=== PATIENT | female | born 1950 | race Caucasian/White ===

== ENCOUNTER → 2018-05-10 07:55 | Outpatient (CLI) | payer MEDICARE, OTHER, SELFPAY ==
[2018-05-10 11:08] LABS: AST(SGOT) 18 U/L (15-37); Alanine Aminotransfer ALT/SGPT 25 U/L (13-56); Albumin, Serum 3.4 g/dL (3.2-5.0); Alkaline Phosphatase 112 U/L (45-117); Bilirubin, Direct 0.06 mg/dL (0.00-0.30); Cholesterol 148 mg/dL (200); Globulin 3.8 g/dL (2.2-4.2); High Density Lipoprotein 43 mg/dL; Protein, Total 7.2 g/dL (6.4-8.2); Triglycerides 180 mg/dL; Very Low Density Lipoprotein 36 mg/dL (5-40)
== END ==
PROVIDERS: Family Provider Family Medicine; PCP Family Medicine; Visit Provider Family Medicine
DX: E78.5 Hyperlipidemia, unspecified (principal)
CPT/HCPCS: 36415; 80061; 80076

== ENCOUNTER → 2018-10-27 09:08 | Outpatient (CLI) | payer MEDICARE, OTHER, SELFPAY ==
[2018-10-27 11:21] LABS: ALB/GLOB Ratio 1.1 RATIO (0.9-2.4); AST(SGOT) 14 U/L (15-37); Alanine Aminotransfer ALT/SGPT 23 U/L (13-56); Albumin, Serum 3.6 g/dL (3.2-5.0); Alkaline Phosphatase 125 U/L (45-117); Anion Gap 9 (5-15); BUN 9 mg/dL (7-18); Calcium,Total 8.8 mg/dL (8.5-10.1); Chloride 101 mmol/L (98-107); Cholesterol 152 mg/dL (200); Creatinine, Serum 0.64 mg/dL (0.55-1.02); EST Glomerular Filtration Rate 98 mL/min (>60); Est Glom Filt Rate - Afr Amer 119 mL/min (>60); Globulin 3.3 g/dL (2.2-4.2); Glucose 116 mg/dL (74-106); High Density Lipoprotein 41 mg/dL; Potassium 4.1 mmol/L (3.5-5.1); Protein, Total 6.9 g/dL (6.4-8.2); Sodium Level 135 mmol/L (136-145); Triglycerides 193 mg/dL; Very Low Density Lipoprotein 39 mg/dL (5-40)
== END ==
PROVIDERS: Family Provider Family Medicine; PCP Family Medicine; Visit Provider Nurse Practitioner Family
DX: Z00.00 Encounter for general adult medical examination without abnormal findings (principal)
CPT/HCPCS: 36415; 80053; 80061

== ENCOUNTER → 2018-11-01 16:59 | Outpatient (CLI) | payer MEDICARE, OTHER, SELFPAY | PROVIDERS: Family Provider Family Medicine; PCP Family Medicine; Referring Provider Nurse Practitioner Adult Health; Visit Provider Nurse Practitioner Adult Health | DX: N39.0 Urinary tract infection, site not specified (principal) | CPT/HCPCS: 87086; 87088; 87186 ==

== ENCOUNTER → 2018-11-03 13:56 | Outpatient (CLI) | payer MEDICARE, OTHER, SELFPAY ==
--- NOTE | 2018-11-03 14:01 | RAD_ITS ---
STUDY: X-RAY - LEFT KNEE REASON FOR EXAM: Female, 68 years old. Pain TECHNIQUE: 3 view(s) of the knee. COMPARISON: None. FINDINGS: There is demineralization of the visualized distal femur. There is demineralization of the tibia and fibula. Normal proximal tibiofibular articulation. Normal medial femorotibial compartment. Normal lateral femorotibial compartment. Normal patellofemoral articulation. The soft tissue structures are unremarkable. RAD/Knee 3 Views IMPRESSION: Demineralization of the osseous structures. Electronically Signed: Israel Lua MD at 23:39 EST , Service support ,
--- NOTE | 2018-11-03 14:01 | RAD_ITS ---
STUDY: X-RAY - LUMBAR SPINE REASON FOR EXAM: Female, 68 years old. Chronic low back pain radiating into left leg TECHNIQUE: 5 view(s) of the lumbar spine were obtained. COMPARISON: Prior study of 07/18/2015 FINDINGS: Normal lumbar lordosis. There is no substantial scoliosis. There is a grade 1 anterolisthesis of L4 relative to L5. There is diffuse demineralization with multi-level endplate spondylosis. There is mild narrowing of the L4-5 and L5-S1 disc spaces. There is no demonstrated fracture. There are calcified plaques of the abdominal aorta. RAD/L/S Spine Min 4 Views IMPRESSION: Degenerative changes as detailed above. Grade 1 anterolisthesis of L4 relative to L5, also reported on the previous study. Electronically Signed: Israel Lua MD at 23:35 EST , Service support ,
--- NOTE | 2018-11-03 14:05 | RAD_ITS ---
STUDY: X-RAY - RIGHT KNEE REASON FOR EXAM: Female, 68 years old. Pain TECHNIQUE: 3 view(s) of the knee. COMPARISON: None. FINDINGS: There is demineralization of the visualized distal femur. There is demineralization of the tibia and fibula. Normal proximal tibiofibular articulation. Normal medial femorotibial compartment. Normal lateral femorotibial compartment. Normal patellofemoral articulation. The soft tissue structures are unremarkable. RAD/Knee 3 Views IMPRESSION: Demineralization of the osseous structures. Electronically Signed: Israel Lua MD at 23:38 EST , Service support ,
--- OUTSIDE RECORDS SUMMARY | 2019-01-08 11:07 | XMS RPT_ITS ---
:1950 Author Organization OHIP Care Team Providers Name Role Phone WenJose Attending Unavailable Misael Molina Primary Care Unavailable Parul Hernandez Attending Unavailable Parul Hernandez Referring Unavailable Tracy, Misael Primary Care Unavailable Tracy, Misael Attending Unavailable Molina, Misael Referring Unavailable Molina, Misael Primary Care Unavailable Tracy, Misael Attending Unavailable Molina, Misael Primary Care Unavailable Molina, Misael Attending Unavailable Molina, Misael Referring Unavailable Molina, Misael Primary Care Unavailable PROBLEMS PROBLEMS DATE TYPE CONDITION / CODE ATTENDING STATUS SOURCE 11/11/2018 Unknown M85.89 - Other Misael Molina Active [facility] specified Community disorders of bone Hospital density and Repository structure, multiple sites / M85.89(ICD-10) 11/03/2018 Unknown M25.561 - Pain in Misael Molina Active [place] right knee / Community M25.561(ICD-10) Hospital Repository 11/03/2018 Unknown M54.16 - Misael Molina Active [place] Radiculopathy, Community lumbar region / Hospital M54.16(ICD-10) Repository 11/03/2018 Unknown M25.562 - Pain in Misael Molina Active [place] left knee / Community M25.562(ICD-10) Hospital Repository 11/01/2018 Unknown N39.0 - Urinary Mary, Parul Active [place] tract infection, M Community site not Hospital specified / Repository N39.0(ICD-10) 05/10/2018 Unknown E78.5 - Misael Molina Active [place] Hyperlipidemia, Community unspecified / Hospital E78.5(ICD-10) Repository PROCEDURES PROCEDURES No Procedure Records FoundRESULTS RESULTS DEXA BONE DENSITY Observed: 11/11/2018 Status: F Source: [place] STUDY 1:59 PM [facility] REPOSITORY [facility] Imaging Services [address] [place] [address] Dexa Bone Density Study MR#: [id number] Acct: [id number] Name: CARMEN MILLER Rep #: [id number] : 1950 F 68 From: Paul Moctezuma MD PCP: Misael Molina MD Status: REG CLI Study: Dexa Bone Density Study Date of Exam: 11/11/18 Exam# [id number] Ordering Dr: Misael Molina MD STUDY: DUAL ENERGY X-RAY ABSORPTIOMETRY / DXA REASON FOR EXAM: Female, 68 years old. The patient is postmenopausal. Loss of height. TECHNIQUE: Bone Mineral Density (BMD) measurements of lumbar spine and bilateral hips were obtained. COMPARISON: Comparison is made with prior study dated January 15, 2006. FINDINGS: Lumbar Spine (L1-L4): g/cm2 (1.024) / T-score (-1.3) / Z-score (0.3) Findings are suggestive of osteopenia with a low fracture risk. Left Femur Total: g/cm2 (0.601) / T-score (-3.2) / Z- score (-1.9) Left Femoral Neck: g/cm2 (0.645) / T-score (-2.8) / Z- score (-1.3) Right Femur Total: g/cm2 (0.653) / T-score (-2.8) / Z- score (-1.5) Right Femoral Neck: g/cm2 (0.679) / T-score (-2.6) / Z-score (-1.1) The T-Scores on the most recent prior examination were: Lumbar Spine (L1-L4): There has been improvement of bone density since the previous examination. Left Femur Total: which represents a worsening of 9.4%. BD/Dexa Bone Density Study IMPRESSION: The patient is considered osteoporotic as outlined below according to World Brandon Organization (WHO) criteria with a high fracture risk. There has been worsening of bone density since the previous examination. Reference Information: The T-score is the number of standard deviations above or below the standard which is normal for young adults at their peak bone mineral density. The World Health Organization (WHO) interprets the T-scores as follows: Above -1 Normal bone density Between -1 and -2.5 Osteopenia Equal to / or below -2.5 Osteoporosis As a practical clinical guideline, osteopenia may be graded as follows: Mild -1 through -1.5 Moderate -1.6 through -2.0 Severe -2.1 through -2.4 The Z-score is the number of standard deviations above or below age-matched controls. A Z-score of less than -1.5 would be considered abnormal. References: 1. NIH Osteoporosis and Related Bone Diseases http://www.osteo.org 2. International Society for Clinical Densitometry http://www.iscd.org 3. National Osteoporosis Foundation http://www.nof.org Electronically Signed: Paul Moctezuma MD at 15:18 EST , Service support , CC: Misael Molina MD Commercial Pilot: Signed KNEE 3 VIEWS Observed: 11/03/2018 Status: F Source: [place] 2:05 PM [facility] [place] [facility] Imaging Services [address] [place], [place] [address] [place] [address] Knee 3 Views MR#: [id number] Acct: [id number] Name: CARMEN MILLER Rep #: [id number] : 1950 F 68 From: Israel Lua MD PCP: Misael Molina MD Status: REG CLI Study: Knee 3 Views Date of Exam: 11/03/18 Exam# [id number] Ordering Dr: Misael Molina MD STUDY: X-RAY - RIGHT KNEE REASON FOR EXAM: Female, 68 years old. Pain TECHNIQUE: 3 view(s) of the knee. COMPARISON: None. FINDINGS: There is demineralization of the visualized distal femur. There is demineralization of the tibia and fibula. Normal proximal tibiofibular articulation. Normal medial femorotibial compartment. Normal lateral femorotibial compartment. Normal patellofemoral articulation. The soft tissue structures are unremarkable. RAD/Knee 3 Views IMPRESSION: Demineralization of the osseous structures. Electronically Signed: Israel Lua MD at 23:38 EST , Service support , CC: Misael Molina MD Commercial Pilot: Signed L/S SPINE MIN 4 Observed: 11/03/2018 Status: F Source: [place] VIEWS 2:02 PM [facility] [place] [facility] Imaging Services [address] [place] [address] L/S Spine Min 4 Views MR#: [id number] Acct: [id number] Name: CARMEN MILLER Rep #: [id number] : 1950 F 68 From: Israel Lua MD PCP: Misael Molina MD Status: REG CLI Study: L/S Spine Min 4 Views Date of Exam: 11/03/18 Exam# [id number] Ordering Dr: Misael Molina MD STUDY: X-RAY - LUMBAR SPINE REASON FOR EXAM: Female, 68 years old. Chronic low back pain radiating into left leg TECHNIQUE: 5 view(s) of the lumbar spine were obtained. COMPARISON: Prior study of 07/18/2015 FINDINGS: Normal lumbar lordosis. There is no substantial scoliosis. There is a grade 1 anterolisthesis of L4 relative to L5. There is diffuse demineralization with multi-level endplate spondylosis. There is mild narrowing of the L4-5 and L5-S1 disc spaces. There is no demonstrated fracture. There are calcified plaques of the abdominal aorta. RAD/L/S Spine Min 4 Views IMPRESSION: Degenerative changes as detailed above. Grade 1 anterolisthesis of L4 relative to L5, also reported on the previous study. Electronically Signed: Israel Lua MD at 23:35 EST , Service support , CC: Misael Molina MD Commercial Pilot: Signed KNEE 3 VIEWS Observed: 11/03/2018 Status: F Source: [place] 2:02 PM [facility] [place] [facility] Imaging Services [address] [place] [address] Knee 3 Views MR#: [id number] Acct: [id number] Name: CARMEN MILLER Jn Rep #: [id number] : 1950 F 68 From: Israel Lua MD PCP: Misael Molina MD Status: REG CLI Study: Knee 3 Views Date of Exam: 11/03/18 Exam# [id number] Ordering Dr: Misael Molina MD STUDY: X-RAY - LEFT KNEE REASON FOR EXAM: Female, 68 years old. Pain TECHNIQUE: 3 view(s) of the knee. COMPARISON: None. FINDINGS: There is demineralization of the visualized distal femur. There is demineralization of the tibia and fibula. Normal proximal tibiofibular articulation. Normal medial femorotibial compartment. Normal lateral femorotibial compartment. Normal patellofemoral articulation. The soft tissue structures are unremarkable. RAD/Knee 3 Views IMPRESSION: Demineralization of the osseous structures. Electronically Signed: Israel Lua MD at 23:39 EST , Service support , CC: Misael Molina MD Commercial Pilot: Signed Observed: 11/01/2018 Status: F Source: [place] CULTURE, URINE 3:00 PM [facility] [place] [facility] Urine Culture ORGANISM 1: Presumptive E. coli [place] Count >100,000 Presumptive E. coli: REACTION Ampicillin $ 8 S Ampicillin/Sulbactam $ <=2 S Cefazolin $ <=4 S Cefepime $ <=0.12 S Ceftazidime *NF <=1 S Ceftriaxone $ <=0.25 S Ciprofloxacin $ <=0.25 S Ertapenim $$$ <=0.12 S ESBL Negative - Gentamicin $ <=1 S Imipenem *NF <=0.25 S Levofloxacin $ <=0.12 S Nitrofurantoin $ <=16 S Piperacillin/Tazobactam $$ <=4 S Tobramycin $ <=1 S Trimethoprim/Sulfametho $ <=20 S (NF) indicates non-formulary drug at [facility]. Approval by Infectious Disease Specialist required before non-formulary drugs may be ordered and/or dispensed. Performed By: #### M100.0650 #### [facility] [address] [place], [address] COMPREHENSIVE METABOLIC Collected: 10/27/2018 Status: F Source: [place] PROFIL 9:11 AM [facility] [place] [facility] TYPE CODE TESTS RESULT OUT OF RANGE REFERENCE UNITS LAB L501.0100 74-106 mg/dL High GLU 116 Result Comment: Fasting Glucose result from 100 to 125 mg/dL suggests IMPAIRED HOMEOSTASIS per A.D.A. criteria. Please note revised GLUCOSE reference range effective 2017. LAB L501.1000 7-18 mg/dL Normal BUN 9 LAB L501.1100 0.55-1.02 mg/dL Normal CREAT,SERUM 0.64 Result Comment: The validity of the calculated GFR AND GFRAA in patients over 70 years has not been determined. Clinical correlation is essential. LAB L501.1110 >60 mL/min Normal EST GFR 98 Result Comment: Non- GFR Calc LAB L501.1115 >60 mL/min Normal EST GFR - AA 119 Result Comment: GFR Calc LAB L501.1300 10-20 RATIO Normal BUN/CRE 14.0 LAB L501.1500 6.4-8.2 g/dL T Normal PROT 6.9 LAB L501.1800 3.2-5.0 g/dL Normal ALB 3.6 LAB L501.1950 2.2-4.2 g/dL Normal GLOB 3.3 LAB L501.2000 0.9-2.4 RATIO Normal A/G 1.1 LAB L501.2200 8.5-10.1 mg/dL CA Normal 8.8 LAB L501.4100 15-37 U/L Low AST 14 LAB L501.4305 45-117 U/L High ALK P 125 LAB L501.4405 13-56 U/L Normal ALT 23 LAB L501.4600 0.20-1.00 mg/dL T Normal BILI 0.40 LAB L501.5300 136-145 mmol/L Low NA 135 LAB L501.5600 3.5-5.1 mmol/L K Normal 4.1 LAB L501.5900 98-107 mmol/L CL Normal 101 LAB L501.6100 21.0-32.0 mmol/L Normal CO2 25.0 LAB L501.6200 5-15 Normal GAP 9 Performed By: #### L500.4050, L500.4100 #### [facility] [address] [place], [place], [id number] LIPID PROFILE Collected: 10/27/2018 Status: F Source: [place] 9:11 AM [facility] [place] [facility] TYPE CODE TESTS RESULT OUT OF RANGE REFERENCE UNITS LAB L501.4900 200 mg/dL Normal CHOL 152 Result Comment: <200 mg/dL Desirable 200-240 mg/dL Borderline >240 mg/dL High Risk LAB L501.5000 mg/dL Normal TRIG 193 Result Comment: The drugs N-Acetylcysteine and Metamizole may falsely depress this assay. Serum Triglycerides Reference Interval Normal <150 mg/dL Borderline high 150 - 199 mg/dL High 200 - 499 mg/dL Very High > or = 500 mg/dL LAB L501.6400 mg/dL Normal HDL 41 Result Comment: The drugs N-Acetylcysteine and Metamizole may falsely depress this assay. Reference Range HDL <40 mg/dL Low HDL Cholesterol HDL >or= 60 mg/dL High HDL Cholesterol LAB L501.6500 0-130 mg/dL Normal LDL 72 LAB L501.6600 5-40 mg/dL Normal VLDL 39 Performed By: #### L500.4050, L500.4100 #### [facility] [address] [place], [address] LIVER PROFILE Collected: 05/10/2018 Status: F Source: [place] 8:07 AM [facility] [place] [facility] TYPE CODE TESTS RESULT OUT OF RANGE REFERENCE UNITS LAB L501.1500 6.4-8.2 g/dL Normal T PROT 7.2 LAB L501.1800 3.2-5.0 g/dL Normal ALB 3.4 LAB L501.1950 2.2-4.2 g/dL Normal GLOB 3.8 LAB L501.4100 15-37 U/L Normal AST 18 LAB L501.4305 45-117 U/L Normal ALK P 112 LAB L501.4405 13-56 U/L Normal ALT 25 LAB L501.4600 0.20-1.00 mg/dL Normal T BILI 0.30 LAB L501.4700 0.00-0.30 mg/dL Normal D BILI 0.06 Performed By: #### L500.3400, L500.4100 #### [facility] [address] [place], [address] LIPID PROFILE Collected: 05/10/2018 Status: F Source: [place] 8:07 AM [facility] [place] [facility] TYPE CODE TESTS RESULT OUT OF RANGE REFERENCE UNITS LAB L501.4900 200 mg/dL Normal CHOL 148 Result Comment: <200 mg/dL Desirable 200-240 mg/dL Borderline >240 mg/dL High Risk LAB L501.5000 mg/dL Normal TRIG 180 Result Comment: The drugs N-Acetylcysteine and Metamizole may falsely depress this assay. Serum Triglycerides Reference Interval Normal <150 mg/dL Borderline high 150 - 199 mg/dL High 200 - 499 mg/dL Very High > or = 500 mg/dL LAB L501.6400 mg/dL Normal HDL 43 Result Comment: The drugs N-Acetylcysteine and Metamizole may falsely depress this assay. Reference Range HDL <40 mg/dL Low HDL Cholesterol HDL >or= 60 mg/dL High HDL Cholesterol LAB L501.6500 0-130 mg/dL Normal LDL 69 LAB L501.6600 5-40 mg/dL Normal VLDL 36 Performed By: #### L500.3400, L500.4100 #### [facility] [address] [place], [address] ALLERGIES ALLERGIES No Allergies Records FoundENCOUNTERS ENCOUNTERS ADMIT/DISCHARGE ACCOUNT ADMITTING ENCOUNTER LOCATION SOURCE NUMBER CLASS 11/11/2018 [id number] [facility] 9 [facility] ing:OPBD Repository 11/03/2018 [id number] [facility] 7 [facility] ing:MTRAD Repository 11/01/2018 [id number] [facility] 0 [facility] ing:LABSPEC Repository 10/27/2018 [id number] [facility] 8 [facility] ing:MFPLAB Repository 05/10/2018 [id number] [facility] 4 [facility] ing:MTLAB Repository PAYERS PAYERS ENCOUNTER GUARANTOR PAYER SUBSCRIBER SOURCE 11/11/2018 CHESTINA J Primary CHESTINA J Mignon [id number] [place] [facility] [place] [facility] [id number] Hospital [address]Qbz: [phone]) Number: Repository [phone] HP) [id number] Date:2018-11-05 11/11/2018 Secondary CHESTINA J Boles Insurance:MEDICAL CHOLLEYDOB: [facility] [id number] Hospital Number: Repository [id number] Date:[id number] [address]SF: 11/11/2018 Tertiary NOT GIVENUNK Boles Insurance:SELF PAY [facility] Number: Effective Repository Date:2018-11-05 11/03/2018 CHESTINA J Primary CHESTINA J Mignon [id number] [place] Insurance:MEDICARE CHOLLEYDOB: [place] PART A [facility] [id number] [id number]: [phone]) Number: Repository [phone] [id number] Date:2018-11-03 11/03/2018 Secondary CHESTINA J Mignon Insurance:MEDICAL CHOLLEYDOB: [facility] [id number] Hospital Number: Repository [id number] Date:[id number] [address]ZY: 11/03/2018 Tertiary NOT GIVENUNK Boles Insurance:SELF [facility]Y [facility] Hospital Number: Effective Repository Date:2018-11-03 11/01/2018 KODY Huber Primary CHESTINA J Boles [id number] [place] Insurance:MEDICARE CHOLLEYDOB: [place] PART A [facility] [id number] Hospital [address]Rir: [phone]) Number: Repository [phone] ( [id number] Date:2018-11-01 11/01/2018 Secondary CHESTINA J Boles Insurance:MEDICAL CHOLLEYDOB: [facility] [id number] Hospital Number: Repository [id number] Date:[id number] [address]SP: 11/01/2018 Tertiary NOT GIVENUNK Boles Insurance:SELF PAY [facility] Number: Effective Repository Date:2018-11-01 10/27/2018 Kody Huber Primary CHESTINA J Boles [id number] [place] Insurance:MEDICARE CHOLLEYDOB: [place], [place] PART A [facility] [id number] Hospital [address]Ksi: (330) Number: Repository [phone] () [id number] Date:2018-10-27 10/27/2018 Secondary CHESTINA J Boles Insurance:MEDICAL CHOLLEYDOB: [facility] [id number] Hospital Number: Repository [id number] Date:[id number] [address] [address]SF: 10/27/2018 Tertiary NOT GIVENUNK Boles Insurance:SELF PAY [facility] Number: Effective Repository Date:2018-10-27 05/10/2018 Kody Huber Primary CHESTINA J Boles [id number] [place] Insurance:MEDICARE CHOLLEYDOB: [place] PART A [facility] [id number] Hospital [address]Cwz: (330) Number: Repository [phone] () [id number] Date:2018-05-10 05/10/2018 Secondary CHESTINA J Boles Insurance:MEDICAL CHOLLEYDOB: [facility] [id number] Hospital Number: Repository [id number] Date:[id number] [address] [address]QD: 05/10/2018 Tertiary NOT GIVENUNK Mignon Insurance:SELF PAY [facility] Number: Effective Repository Date:2018-05-10
== END ==
PROVIDERS: Family Provider Family Medicine; PCP Family Medicine; Referring Provider Family Medicine; Visit Provider Family Medicine
DX: M25.561 Pain in right knee (principal); M54.16 Radiculopathy, lumbar region; M25.562 Pain in left knee
CPT/HCPCS: 72110; 73562

== ENCOUNTER → 2018-11-11 13:56 | Outpatient (CLI) | payer MEDICARE, OTHER, SELFPAY ==
--- NOTE | 2018-11-11 14:03 | BD_ITS ---
STUDY: DUAL ENERGY X-RAY ABSORPTIOMETRY / DXA REASON FOR EXAM: Female, 68 years old. The patient is postmenopausal. Loss of height. TECHNIQUE: Bone Mineral Density (BMD) measurements of lumbar spine and bilateral hips were obtained. COMPARISON: Comparison is made with prior study dated January 15, 2006. FINDINGS: Lumbar Spine (L1-L4): g/cm2 (1.024) / T-score (-1.3) / Z-score (0.3) Findings are suggestive of osteopenia with a low fracture risk. Left Femur Total: g/cm2 (0.601) / T-score (-3.2) / Z-score (-1.9) Left Femoral Neck: g/cm2 (0.645) / T-score (-2.8) / Z-score (-1.3) Right Femur Total: g/cm2 (0.653) / T-score (-2.8) / Z-score (-1.5) Right Femoral Neck: g/cm2 (0.679) / T-score (-2.6) / Z-score (-1.1) The T-Scores on the most recent prior examination were: Lumbar Spine (L1-L4): There has been improvement of bone density since the previous examination. Left Femur Total: which represents a worsening of 9.4%. BD/Dexa Bone Density Study IMPRESSION: The patient is considered osteoporotic as outlined below according to World Brandon Organization (WHO) criteria with a high fracture risk. There has been worsening of bone density since the previous examination. Reference Information: The T-score is the number of standard deviations above or below the standard which is normal for young adults at their peak bone mineral density. The World Health Organization (WHO) interprets the T-scores as follows: Above -1 Normal bone density Between -1 and -2.5 Osteopenia Equal to / or below -2.5 Osteoporosis As a practical clinical guideline, osteopenia may be graded as follows: Mild -1 through -1.5 Moderate -1.6 through -2.0 Severe -2.1 through -2.4 The Z-score is the number of standard deviations above or below age-matched controls. A Z-score of less than -1.5 would be considered abnormal. References: 1. NIH Osteoporosis and Related Bone Diseases http://www.osteo.org 2. International Society for Clinical Densitometry http://www.iscd.org 3. National Osteoporosis Foundation http://www.nof.org Electronically Signed: Paul Moctezuma MD at 15:18 EST , Service support ,
== END ==
PROVIDERS: Family Provider Family Medicine; PCP Family Medicine; Visit Provider Family Medicine
DX: Z78.0 Asymptomatic menopausal state (principal); M85.80 Other specified disorders of bone density and structure, unspecified site
CPT/HCPCS: 77080

== ENCOUNTER → 2019-03-02 17:47 | Outpatient (CLI) | payer MEDICARE, OTHER, SELFPAY | PROVIDERS: Family Provider Family Medicine; PCP Family Medicine; Referring Provider Family Medicine; Visit Provider Family Medicine | DX: R30.0 Dysuria (principal) | CPT/HCPCS: 87086; 87088 ==

== ENCOUNTER → 2019-05-05 09:19 | Outpatient (CLI) | payer MEDICARE, OTHER, SELFPAY ==
[2019-05-05 10:28] LABS: Anion Gap 9 (5-15); BUN 13 mg/dL (7-18); BUN/Creat Ratio 17.2 RATIO (10-20); Calcium,Total 9.3 mg/dL (8.5-10.1); Chloride 100 mmol/L (98-107); Creatinine, Serum 0.76 mg/dL (0.55-1.02); EST Glomerular Filtration Rate 81 mL/min (>60); Est Glom Filt Rate - Afr Amer 98 mL/min (>60); Glucose 124 mg/dL (74-106); Potassium 4.5 mmol/L (3.5-5.1); Sodium Level 137 mmol/L (136-145)
== END ==
PROVIDERS: Family Provider Family Medicine; PCP Family Medicine; Referring Provider Family Medicine; Visit Provider Family Medicine
DX: E11.9 Type 2 diabetes mellitus without complications (principal)
CPT/HCPCS: 36415; 80048

== ENCOUNTER → 2019-06-23 17:49 | Outpatient (CLI) | payer MEDICARE, OTHER, SELFPAY | PROVIDERS: Family Provider Family Medicine; PCP Family Medicine; Referring Provider Nurse Practitioner Adult Health | DX: R82.998 Other abnormal findings in urine (principal) | CPT/HCPCS: 87077; 87086; 87088; 87186 ==

== ENCOUNTER → 2019-08-31 14:21 | Outpatient (CLI) | payer MEDICARE, OTHER, SELFPAY ==
[2019-08-31 15:32] LABS: Absolute Lymphocyte Count 2.59 X10^3/uL (0.83-4.51); Basophil# 0.07 X10^3/uL; Basophil% 0.6 % (0-1); Eosinophil# 0.12 X10^3/uL; Hematocrit 40.1 % (37-47); Hemoglobin 12.5 g/dL (12.0-15.0); Lymphocyte # 2.59 X10^3/ul (4.0); Lymphocyte % 21.7 % (19-41); Mean Corp Hgb Conc 31.2 g/dL (32-36); Mean Corpuscular Hgb 29.1 pg (27.0-32.0); Mean Corpuscular Volume 93.3 fL (81-99); Monocyte# 0.98 X10^3/uL; Monocyte% 8.2 % (0-10); NRBC Flagged by Analyzer 0 % (0-5); Neutrophil # 8.04 X10^3/uL (2.7-7.7); Neutrophil % 67.6 % (47-70); Platelet Count 692 K/mm3 (150-450); RBC Distribution Width CV 12.9 % (11.6-14.6); White Blood Count 11.9 K/mm3 (4.4-11.0)
[2019-08-31 15:47] LABS: Hemoglobin A1c 6.1 % (4.2-6.3)
[2019-08-31 16:01] LABS: ALB/GLOB Ratio 0.7 RATIO (0.9-2.4); AST(SGOT) 10 U/L (15-37); Alanine Aminotransfer ALT/SGPT 21 U/L (13-56); Albumin, Serum 3.2 g/dL (3.2-5.0); Alkaline Phosphatase 87 U/L (45-117); Anion Gap 7 (5-15); BUN 14 mg/dL (7-18); BUN/Creat Ratio 18.7 RATIO (10-20); Calcium,Total 9.2 mg/dL (8.5-10.1); Chloride 97 mmol/L (98-107); Creatinine, Serum 0.75 mg/dL (0.55-1.02); EST Glomerular Filtration Rate 82 mL/min (>60); Est Glom Filt Rate - Afr Amer 99 mL/min (>60); Globulin 4.3 g/dL (2.2-4.2); Glucose 115 mg/dL (74-106); Protein, Total 7.5 g/dL (6.4-8.2); Sodium Level 132 mmol/L (136-145)
== END ==
PROVIDERS: Family Provider Family Medicine; PCP Family Medicine; Referring Provider Family Medicine; Visit Provider Family Medicine
DX: R11.0 Nausea (principal); E11.9 Type 2 diabetes mellitus without complications
CPT/HCPCS: 36415; 80053; 83036; 85025

== ENCOUNTER → 2019-09-09 14:06 | Outpatient (CLI) | payer MEDICARE, OTHER, SELFPAY ==
[2019-09-09 16:10] LABS: Anion Gap 7 (5-15); BUN 17 mg/dL (7-18); BUN/Creat Ratio 23.3 RATIO (10-20); Calcium,Total 8.7 mg/dL (8.5-10.1); Chloride 100 mmol/L (98-107); Creatinine, Serum 0.73 mg/dL (0.55-1.02); EST Glomerular Filtration Rate 84 mL/min (>60); Est Glom Filt Rate - Afr Amer 102 mL/min (>60); Glucose 104 mg/dL (74-106); Potassium 4.3 mmol/L (3.5-5.1); Sodium Level 134 mmol/L (136-145)
== END ==
PROVIDERS: Family Provider Family Medicine; PCP Family Medicine; Referring Provider Family Medicine; Visit Provider Family Medicine
DX: E87.6 Hypokalemia (principal)
CPT/HCPCS: 36415; 80048

== ENCOUNTER → 2019-09-29 17:40 | Outpatient (CLI) | payer MEDICARE, OTHER, SELFPAY | PROVIDERS: Family Provider Family Medicine; PCP Family Medicine; Referring Provider Nurse Practitioner Adult Health; Visit Provider Nurse Practitioner Adult Health | DX: R82.998 Other abnormal findings in urine (principal) | CPT/HCPCS: 87077; 87086; 87088; 87186 ==

== ENCOUNTER → 2020-01-19 14:46 | Outpatient (CLI) | payer MEDICARE, OTHER, SELFPAY | PROVIDERS: PCP Family Medicine; Referring Provider Urology; Visit Provider Urology | DX: N39.0 Urinary tract infection, site not specified (principal) | CPT/HCPCS: 87086; 87088 ==

== ENCOUNTER → 2020-05-03 09:50 | Outpatient (CLI) | payer MEDICARE, OTHER, SELFPAY ==
[2020-05-03 13:11] LABS: Anion Gap 6 (5-15); BUN 23 mg/dL (7-18); BUN/Creat Ratio 35.1 RATIO (10-20); Calcium,Total 9.1 mg/dL (8.5-10.1); Chloride 103 mmol/L (98-107); Creatinine, Serum 0.66 mg/dL (0.55-1.02); EST Glomerular Filtration Rate 95 mL/min (>60); Est Glom Filt Rate - Afr Amer 115 mL/min (>60); Glucose 119 mg/dL (74-106); Potassium 3.9 mmol/L (3.5-5.1); Sodium Level 135 mmol/L (136-145)
== END ==
PROVIDERS: PCP Family Medicine; Referring Provider Family Medicine; Visit Provider Family Medicine
DX: E11.9 Type 2 diabetes mellitus without complications (principal)
CPT/HCPCS: 36415; 80048

== ENCOUNTER → 2020-09-17 17:44 | Outpatient (CLI) | payer MEDICARE, OTHER, SELFPAY | PROVIDERS: PCP Family Medicine; Referring Provider Urology; Visit Provider Urology | DX: N39.0 Urinary tract infection, site not specified (principal) | CPT/HCPCS: 87077; 87086; 87088; 87186 ==

== ENCOUNTER → 2020-11-01 09:36 | Outpatient (CLI) | payer MEDICARE, OTHER, SELFPAY ==
[2020-11-01 12:34] LABS: Anion Gap 6 (5-15); BUN 21 mg/dL (7-18); BUN/Creat Ratio 27.7 RATIO (10-20); Calcium,Total 8.9 mg/dL (8.5-10.1); Chloride 99 mmol/L (98-107); Cholesterol 154 mg/dL (200); Creatinine, Serum 0.76 mg/dL (0.55-1.02); EST Glomerular Filtration Rate 81 mL/min (>60); Est Glom Filt Rate - Afr Amer 98 mL/min (>60); Glucose 111 mg/dL (74-106); High Density Lipoprotein 48 mg/dL; Potassium 3.9 mmol/L (3.5-5.1); Sodium Level 133 mmol/L (136-145); Triglycerides 145 mg/dL; Very Low Density Lipoprotein 29 mg/dL (5-40)
[2020-11-01 12:47] LABS: Microalbumin,Random Urine 14.3 mg/L (NO RANGE EST.); Microalbumin:Creatinine Ratio 12.7 mg/g CRE (<30 mg/g CRE)
== END ==
PROVIDERS: PCP Family Medicine; Referring Provider Family Medicine; Visit Provider Family Medicine
DX: E11.9 Type 2 diabetes mellitus without complications (principal)
CPT/HCPCS: 36415; 80048; 80061; 82043; 82570

== ENCOUNTER → 2021-01-29 15:47 | Outpatient (CLI) | payer MEDICARE, OTHER, SELFPAY | PROVIDERS: PCP Family Medicine | DX: R35.1 Nocturia (principal) | CPT/HCPCS: 87077; 87086; 87088; 87186 ==

== ENCOUNTER → 2021-03-07 11:53 | Outpatient (CLI) | payer MEDICARE, OTHER, SELFPAY ==
--- NOTE | 2021-03-07 11:56 | RAD_ITS ---
STUDY: X-RAY - RIGHT SHOULDER REASON FOR EXAM: Female, 71 years old. PAIN TECHNIQUE: 4 view(s) of the shoulder. COMPARISON: None. FINDINGS: There is mild degenerative arthrosis of the glenohumeral articulation. There is degenerative arthrosis of the acromioclavicular joint without inferior osseous spur formation. Normal acromion. Normal humeral head and visualized proximal humerus. There is periarticular soft tissue calcification consistent with a calcific tendinitis. Normal visualized pulmonary apex. 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 No demonstrated fracture or suspicious osseous lesion Electronically Signed: Miguel Ángel Steele MD at 12:10 EDT , Service support ,
== END ==
PROVIDERS: PCP Family Medicine; Referring Provider Family Medicine; Visit Provider Family Medicine
DX: M25.519 Pain in unspecified shoulder (principal)
CPT/HCPCS: 73030

== ENCOUNTER → 2021-05-02 08:53 | Outpatient (CLI) | payer MEDICARE, OTHER, SELFPAY ==
[2021-05-02 11:13] LABS: Anion Gap 8 (5-15); BUN 14 mg/dL (7-18); BUN/Creat Ratio 17.2 RATIO (10-20); Calcium,Total 9.1 mg/dL (8.5-10.1); Chloride 97 mmol/L (98-107); Creatinine, Serum 0.82 mg/dL (0.55-1.02); EST Glomerular Filtration Rate 74 mL/min (>60); Est Glom Filt Rate - Afr Amer 89 mL/min (>60); Glucose 115 mg/dL (74-106); Potassium 4.1 mmol/L (3.5-5.1); Sodium Level 133 mmol/L (136-145)
== END ==
PROVIDERS: PCP Family Medicine; Referring Provider Family Medicine; Visit Provider Family Medicine
DX: E11.9 Type 2 diabetes mellitus without complications (principal)
CPT/HCPCS: 36415; 80048

== ENCOUNTER 2022-05-18 16:08 | Inpatient (IN) | payer MEDICARE, OTHER, SELFPAY ==
[2022-05-18] VITALS (31 sets, daily range): BP systolic 83–136; BP diastolic 44–98; PULSE 114–163; RESP 14–38; TEMP 36.6–37.7; O2SAT 81–98; BMI 21.7; BMI 21.5
--- NOTE | 2022-05-18 16:19 | NURSING ---
NO OLD EKGS
[2022-05-18 16:30] LABS: Bedside Glucose 179 mg/dL (74-106)
--- NOTE | 2022-05-18 16:38 | EKG12_ITS ---
Test Reason : GENERAL ILLNESS Blood Pressure : / mmHG Vent. Rate : 145 BPM Atrial Rate : 326 BPM P-R Int : 000 ms QRS Dur : 088 ms QT Int : 300 ms P-R-T Axes : 000 056 057 degrees QTc Int : 466 ms Atrial fibrillation with premature ventricular or aberrantly conducted complexes Abnormal ECG Confirmed by DUDLEY DAY, AMADEO ([id number]), design editor LAZARUS RATLIFF ([id number]) on 05/20/2022 1:05:25 PM Referred By: JOLEEN Confirmed By:AMADEO BUCKNER MD
--- NOTE | 2022-05-18 16:39 | EDS_ITS ---
HPI History of Present Illness Chief Complaint: General Illness Informant: patient and family Onset/Context/Timing Onset: Weeks Context: Gradual Onset Timing: Continuous Current Severity: Mild Maximum Severity: Moderate Narrative Narrative: 72-year-old female history of diabetes and frequent UTIs. She tested COVID-po sitive Thursday 4 days ago on the at the doctor's office. She has had intermittent nausea, vomiting and diarrhea. She previously was having low-grade temperatures around 99-100. Denies any dysuria. She is got more more weak at home and family brought her in to be evaluated. She has no known cardiac history. She has had a cough. Prior similar symptoms: No Recent Illness/Hospitalization: No PFSH PFSH Medical History COVID-19 Diabetes Frequent urinary tract infections GERD (gastroesophageal reflux disease) High cholesterol Osteoarthritis Home Medications alendronate 70 mg tablet 70 mg PO MO 05/18/22 [History Last Taken Unknown] atorvastatin 20 mg tablet 20 mg PO QHS 05/18/22 [History Last Taken Unknown] metformin 500 mg tablet 500 mg PO DAILY 05/18/22 [History Last Taken Unknown] methenamine hippurate 1 gram tablet 1 g PO QHS 05/18/22 [History Last Taken Unknown] naproxen 500 mg tablet,delayed release (EC-Naproxen) 500 mg PO BID 05/18/22 [History Last Taken Unknown] omeprazole 40 mg capsule,delayed release 40 mg PO DAILY 05/18/22 [History Last Taken Unknown] ondansetron HCl 4 mg tablet 4 mg PO TID PRN PRN Nausea 05/18/22 [History Last Taken Unknown] Allergy/AdvReac Type Severity Reaction Status Date / Time No Known Allergies Allergy Verified 05/18/22 16:09 Social History Smoking Status: Current every day smoker tobacco type: cigarettes ROS ROS ED ROS Narrative Nausea, vomiting, diarrhea, fever, cough and generalized weakness. Review of Systems ROS Unobtainable: Denies due to encephalopathy Constitutional Constitutional ED: Reports fever(s); Denies chills Eyes Eyes: Denies blurry vision ENT ENT ED: Denies ear pain Cardiovascular Cardiovascular: Reports palpitations and racing heartbeat; Denies chest pain Respiratory/Chest Respiratory/Chest: Reports cough Gastrointestinal Gastrointestinal: Reports diarrhea, nausea and vomiting; Denies abdominal pain or melena Genitourinary Genitourinary ED: Denies dysuria or hematuria Musculoskeletal Musculoskeletal: Reports arthralgias Integumentary Denies abscess Neurologic Neurologic: Denies headache(s) Psychiatric Psychiatric: Denies anxiety Endocrine Endocrinology: Denies cold intolerance Hematologic/Lymphatic Hematologic/Lymphatic: Denies lymphadenopathy EXAM Physical Exam Narrative Exam Narrative: 72-year-old female vital signs stable except for tachycardia heart rate between 140 and 163. Pulse ox 91% on room air no signs hypoxia. H EENT exam dry mucous membranes. Atraumatic. Pupils round reactive light. Neck nontender no meningismus. No JVD. Lungs clear to auscultation bilaterally. Heart A. fib RVR tachycardia rate about 155. Chest were nontender. Abdomen soft nontender. Back nontender. Moving all 4 extremities. Calves are nontender without edema or cords. Neurologically she is awake and alert with no focal motor deficits. She is moving all 4 extremities. Answering questions and following commands. Const Vital Signs: 05/18/22 16:10 05/18/22 16:23 05/18/22 16:28 Temperature 98.7 F 98.7 F 98 F Temperature Source Oral Oral Temporal Pulse Rate 148 H 148 H 163 H Respiratory Rate 27 H 27 H 28 H Respiratory Effort Respiratory Pattern Blood Pressure 135/96 H 135/96 H 136/77 H Blood Pressure Mean 109 96 Pulse Ox 91 91 92 Oxygen Delivery Method Room Air Room Air Room Air Oxygen Flow Rate (L/min) 05/18/22 16:28 05/18/22 16:30 05/18/22 17:03 Temperature 98 F Temperature Source Temporal Pulse Rate 148 H Respiratory Rate 28 H Respiratory Effort Short of Breath Respiratory Pattern Tachypnea Blood Pressure 136/77 H Blood Pressure Mean 96 Pulse Ox 90 Oxygen Delivery Method Room Air Room Air Oxygen Flow Rate (L/min) 05/18/22 17:40 05/18/22 17:45 05/18/22 17:27 Temperature 98.9 F Temperature Source Oral Pulse Rate 128 H Respiratory Rate 14 Respiratory Effort Respiratory Pattern Blood Pressure 123/98 H Blood Pressure Mean 106 Pulse Ox 87 94 98 Oxygen Delivery Method Room Air Nasal Cannula Room Air Oxygen Flow Rate (L/min) 3 05/18/22 18:14 Temperature Temperature Source Pulse Rate 139 H Respiratory Rate 38 H Respiratory Effort Respiratory Pattern Blood Pressure 110/49 L Blood Pressure Mean 69 Pulse Ox 95 Oxygen Delivery Method Nasal Cannula Oxygen Flow Rate (L/min) 3 Positive well nourished and well developed; Negative for cachectic, contractures or unkempt General Appearance ED: well developed; Negative for unkempt, cachectic, contractures, cyanotic or diaphoretic Nutritional Appearance: Negative for cachectic HEENT Reports dry mucous membranes; Denies moist mucous membranes Negative for trauma Mouth ED: Yes dry mucous membranes Mouth: dry mucous membranes Eyes PERRL and EOMs intact bilaterally General Eye ED: Negative for pale conjunctiva or scleral icterus Neck no lymphadenopathy, supple and no JVD General: Negative for tenderness Lymph Lymphatic: Negative for other Chest Wall inspection of chest normal and palpation of chest normal Chest: Negative for other Resp normal respiratory effort and clear to auscultation bilaterally Effort and Inspection: Negative for retractions Auscultation: Negative for rales, rhonchi or wheezes Cardio S1 normal heart sound, S2 normal heart sound and no murmurs; Negative for regular rate or regular rhythm Rate: tachycardic Rhythm: abnormal rhythm irregularly irregular GI normal to inspection, nondistended, normoactive bowel sounds, non-tender, non- distended and no masses Inspection: Negative for abdominal distention Auscultation: normoactive bowel sounds Palpation: soft; Negative for tender or guarding Back/Spine no CVA tenderness General Back: Negative for CVA tenderness Cervical Spine: Negative for cervical spine tenderness Thoracic Spine / Upper Back: Negative for thoracic spinal tenderness Lumbar Spine / Lower Back: Negative for lumbar spinal tenderness Extremity normal to inspection General Extremety ED: Negative for edema or tenderness General Extremity: Negative for edema Neuro oriented x3 Sensorium / Orientation: alert; Negative for orientation impaired, lethargic or stuporous Motor Exam: strength 5/5 throughout; Negative for general weakness Psych mental status grossly normal Appearance: Negative for unkempt Attitude: No agitated Mood & Affect: Negative for depressed, anxious or tearful Skin no rashes or lesions noted and no wounds Lesions: No lesion noted Rashes: No rashes noted Trauma: Negative for abrasion Wounds: Negative for wounds noted MDM MDM MDM Narrative Medical decision making narrative: 72-year-old female diagnosed with COVID 4 days ago. Now is new onset A. fib RVR. She is generally weak at home. Clinically looks dehydrated. Has had nausea, vomiting and diarrhea. Patient is also diabetic. She undergo a cardiac work-up. She will be treated with a liter of normal saline. Zofran for nausea. I suspect the patient's could need to be admitted. Multiple repeat exams patient is doing well at 6:20 PM. Initial dose of Cardizem slowed her rate but she is still in the 130+ range so she was started on a Cardizem drip. She will be started on Rocephin and Zithromax for her pneumonia. She is also receiving p.o. and IV potassium for hypokalemia. I spoken to the hospitalist she will be admitted to the PCU. Lab Data Attestation: I reviewed the patient's lab results. Lab results narrative: Electrolytes show sodium 123. Potassium 2.8. Is 15. BUN and creatinine 19 and 0.7. Troponin is elevated at 57 which may be from the A. fib RVR tachycardia. TSH is 0.35. Glucose is 176. Chest x-ray looks like right upper and lower lobe pneumonia. PT PTT and INR normal. CBC showed elevated white count 21.9. Normal H&H. Labs: Laboratory Results - last 24 hr 05/18/22 05/18/22 05/18/22 16:12 16:45 16:45 WBC 21.9 H RBC 4.26 Hgb 12.7 Hct 37.3 MCV 87.6 MCH 29.8 MCHC 34.0 RDW Std Deviation 44.8 H RDW Coeff of [place] 14.0 Plt Count 559 H MPV 9.7 Immature Gran % (Auto) 1.900 H Neut % (Auto) 93.0 H Lymph % (Auto) 2.2 L [place] % (Auto) 2.4 Eos % (Auto) 0.2 Baso % (Auto) 0.3 Absolute Neuts (auto) 20.4 H Absolute Lymphs (auto) 0.48 L Nucleated RBC % 0 Differential Comment SEE COMMENT Platelet Estimate MOD INC RBC Morphology N CHROM Anisocytosis RARE PT 13.7 INR 1.1 APTT 28.9 Sodium Potassium Chloride Carbon Dioxide Anion Gap BUN Creatinine Estim Creat Clear Calc Est GFR (MDRD) Af Amer Est GFR (MDRD) Non-Af BUN/Creatinine Ratio Glucose Calcium Troponin I High Sens TSH POC Glucose 179 H 07/31/22 16:45 WBC RBC Hgb Hct MCV MCH MCHC RDW Std Deviation RDW Coeff of [place] Plt Count MPV Immature Gran % (Auto) Neut % (Auto) Lymph % (Auto) [place] % (Auto) Eos % (Auto) Baso % (Auto) Absolute Neuts (auto) Absolute Lymphs (auto) Nucleated RBC % Differential Comment Platelet Estimate RBC Morphology Anisocytosis PT INR APTT Sodium 123 L Potassium 2.8 L Chloride 87 L Carbon Dioxide 21.0 Anion Gap 15 BUN 19 H Creatinine 0.74 Estim Creat Clear Calc 54.71 Est GFR (MDRD) Af Amer 99 Est GFR (MDRD) Non-Af 82 BUN/Creatinine Ratio 25.6 H Glucose 176 H Calcium 8.7 Troponin I High Sens 57 H TSH 0.35 L POC Glucose Radiography Chest X-Ray - ED: 1 View, Read by ED Physician, Heart, Mediastinum, Bony Structures and Right Infiltrate Diagnostic Testing: Clinical Impression(s) from Imaging Studies Chest X-Ray 05/18/22 16:55 IMPRESSION: Right upper lobe pneumonia. Electronically Signed: Miah Morrell DO at 17:36 EDT Reading Location ID and State: [address] [place] [address] Tel [phone], Service support , Chest x-ray, portable, single view interpreted by myself shows infiltrate in the right upper lobe and superior aspect of the right lower lobe. I did compare this to a film a year ago and none of this was there. There is no recent chest x-ray but there was a shoulder x-ray that had a lot of the chest on it from a prior film and this is totally different. I think the patient also has a secondary bacterial pneumonia on top with her COVID. Rhythm Strip Rhythm Strip: A-fib Rate: 145 Ectopy: PVC(s) EKG Initial EKG: Attestation: I personally reviewed and interpreted this EKG as follows: Interpretation: No Acute Injury Pattern and Atrial Fibrillation Comments: Atrial fibrillation rate of 145 occasional PVCs. Critical Care Time Critical Care Time: Yes Critical care time (excluding procedures): 30-74 minutes, Including time spent:, Discussing w/Patient &/or Family/Mechanical Engineering Manager, Discussing w/Consultants, Arranging Admission or Transfer, Performing Direct Patient Care at Bedside and - (33 min) Discharge Plan Dx/Rx/DC Orders Clinical Impression: Weakness, Atrial fibrillation with rapid ventricular response, Acute dehydration, COVID-19, History of diabetes mellitus, Lobar pneumonia, Acute hypokalemia, Acute hyponatremia Disposition Disposition: Acute Care Hospital [facility]
[2022-05-18] MEDS: dilTIAZem 25 MG/5 ML Vial 20 MG IV BOLUS (16:52)
[2022-05-18] MEDS: 0.9% Normal Saline 1,000 ML 1000 ML IV (16:52)
--- NOTE | 2022-05-18 16:55 | RAD_ITS ---
STUDY: X-RAY CHEST REASON FOR EXAM: Female, 72 years old. COVID positive Thursday at doctor''s office. Weakness and vomiting. TECHNIQUE: Single AP portable view of the chest. COMPARISON: None. FINDINGS: There is diffuse interstitial infiltrate in the right upper lobe. Minimal patchy density is also seen at the right lung base. Left lung is clear. There is no demonstrated pleural abnormality. Normal size heart. Normal mediastinum and ann. Normal visualized pulmonary arteries. Normal visualized aortic arch and descending thoracic aorta. There are diffuse degenerative changes of the visualized thoracic spine. Normal visualized ribs, clavicles, and shoulders. There is no demonstrated abnormality of the visualized soft tissue structures of the upper abdomen. RAD/Chest 1 View (Portable) IMPRESSION: Right upper lobe pneumonia. Electronically Signed: Miah Morrell DO at 17:36 EDT ,
[2022-05-18 17:15] LABS: Absolute Lymphocyte Count 0.48 X10^3/uL (0.83-4.51); Absolute Neutrophil Count 20.4 X10^3/uL (2.0-7.7); Basophil# 0.06 X10^3/uL; Basophil% 0.3 % (0-1); Eosinophil# 0.05 X10^3/uL; Eosinophils% 0.2 % (0-5); Hematocrit 37.3 % (37-47); Hemoglobin 12.7 g/dL (12.0-15.0); Lymphocyte # 0.48 X10^3/ul (0.83-4.51); Lymphocyte % 2.2 % (19-41); Mean Corpuscular Hgb 29.8 pg (27.0-32.0); Mean Corpuscular Volume 87.6 fL (81-99); Mean Platelet Vol. 9.7 fl (6.2-12.0); Monocyte# 0.52 X10^3/uL; Monocyte% 2.4 % (0-10); NRBC Flagged by Analyzer 0 % (0-5); Neutrophil # 20.37 X10^3/uL (2.7-7.7); POSITIVE DIFFERENTIAL YES; Platelet Count 559 K/mm3 (150-450); RBC Distribution Width SD 44.8 fl (35.1-43.9); Red Blood Count 4.26 M/mm3 (4.2-5.4); White Blood Count 21.9 K/mm3 (4.4-11.0)
[2022-05-18 17:27] LABS: Anion Gap 15 (5-15); BUN 19 mg/dL (7-18); BUN/Creat Ratio 25.6 RATIO (10-20); Calcium,Total 8.7 mg/dL (8.5-10.1); Chloride 87 mmol/L (98-107); Creatinine, Serum 0.74 mg/dL (0.55-1.02); EST Glomerular Filtration Rate 82 mL/min (>60); Est Glom Filt Rate - Afr Amer 99 mL/min (>60); Estimated Creatinine Clearance 54.71 ml/min; Glucose 176 mg/dL (74-106); Potassium 2.8 mmol/L (3.5-5.1); Sodium Level 123 mmol/L (136-145); Thyroid Stim Hormone (TSH) 0.35 uIU/mL (0.358-3.74); Troponin-I HS (w/2H Reflex) 57 pg/mL (3.0-54.0)
[2022-05-18 17:38] LABS: International Normalized Ratio 1.1; Partial Thromboplast Time 28.9 Seconds (24.1-36.2); Prothrombin Time (Protime)PT. 13.7 SECONDS (11.7-14.9)
[2022-05-18 17:48] LABS: Differential Indicated SCAN CRITERIA MET
[2022-05-18 18:11] LABS: Platelet Estimate MOD INC (ADEQ)
[2022-05-18 18:12] LABS: Anisocytosis RARE; Red Cell Morphology N CHROM NORMAL (NORM C&C)
--- NOTE | 2022-05-18 18:21 | NURSING ---
DR CORDOBA FOR DR NEUMANN
[2022-05-18] MEDS: Potassium Chloride Oral Tablet 20 MEQ 40 MEQ PO (18:25)
--- NOTE | 2022-05-18 18:30 | NURSING ---
PCU COVID, PNEUMONIA, AFIB W RVR, HYPOKALEMIA
[2022-05-18] MEDS: Potassium Chloride 10mEq/100mL 10 MEQ/100 ML IV.SOLN. 100 MEQ IV BOLUS ×2 (18:35→19:55)
[2022-05-18] MEDS: Ceftriaxone 1 GM/50 ML BAG IV (18:35)
[2022-05-18 18:56] LABS: Reflex Troponin-HS? (from REC) Y
--- NOTE | 2022-05-18 18:56 | HP.PCM.HOS_ITS ---
HPI - General General Date of Admission: 05/18/22 Date of Service: 05/18/22 Chief Complaint: Cough, shortness of breath for about 5 days, increased fatigue for about 10 days HPI Narrative CARMEN MILLER, is a 72 F with history of chronic smoking since teenage about a pack per day was brought into ED by EMS squad for shortness of breath, cough for past Thursday. She was diagnosed COVID-19 on 05/14/2022. As per daughter she is weak for almost 1 month but her symptoms got worse for last 1 week. She is also having nausea and vomiting and diarrhea for about 1 week. On average 1- 2 large-volume nonbilious vomiting and diarrhea 2-3 semisolid. No evidence of GI bleed including hematemesis, melena or hematochezia. She has fever, low- grade with shivering and chills for past 4 days. In ED, she was found to have A. fib with RVR, heart rate 148/min, respiratory rate 27, pulse ox 91% on room air. Twelve-lead EKG individually reviewed. A. fib RVR at 145 bpm, PVCs, QTC 466 ms. She does not have prior history of A. fib. In fact no coronary artery disease or other cardiac disease. She denies dysuria/burning micturition or increased frequency or urgency. In ED, chest x-ray was done which individually reviewed and shows right upper and right lung base dense infiltrate suggestive of lobar consolidation. Patient also very dehydrated, hyponatremic, hypokalemia and hypochloremia. Patient was given 20 mg IV Cardizem bolus and started on Cardizem drip. On IV fluid normal saline. 1 dose of IV ceftriaxone and Zithromax ordered. patient is further admitted. [facility] Medical History COVID-19 Diabetes Frequent urinary tract infections GERD (gastroesophageal reflux disease) High cholesterol Osteoarthritis Home Medications alendronate 70 mg tablet 70 mg PO MO 05/18/22 [History Last Taken Unknown] atorvastatin 20 mg tablet 20 mg PO QHS 05/18/22 [History Last Taken Unknown] metformin 500 mg tablet 500 mg PO DAILY 05/18/22 [History Last Taken Unknown] methenamine hippurate 1 gram tablet 1 g PO QHS 05/18/22 [History Last Taken Unknown] naproxen 500 mg tablet,delayed release (EC-Naproxen) 500 mg PO BID 05/18/22 [History Last Taken Unknown] omeprazole 40 mg capsule,delayed release 40 mg PO DAILY 05/18/22 [History Last Taken Unknown] ondansetron HCl 4 mg tablet 4 mg PO TID PRN PRN Nausea 05/18/22 [History Last Taken Unknown] Allergy/AdvReac Type Severity Reaction Status Date / Time No Known Allergies Allergy Verified 05/18/22 16:09 Social History Smoking Status: Current every day smoker tobacco type: cigarettes ROS ROS Narrative Patient is weak, tachypneic short of breath and fatigued therefore ROS mainly asked by her daughter sitting at the bedside. Constitutional: Reports fatigue and weakness. Low-grade fever HEENT: Dehydrated. Denies sore throat Respiratory/Chest: Cough, shortness of breath. Mainly dry cough. Rest as mentioned in HPI. Gastrointestinal: Denies coffee ground emesis, hematemesis. Rest admission HPI Genitourinary: Denies burning urination or new urinary tract symptoms Musculoskeletal: Diffuse degenerative arthritis. ROM full. Neurologic: Denies seizure-like activity. No focal neurologic symptoms numbness tingling or weakness skin: No ulcer. No rash Endocrinology: DM type II reports systems reviewed and no addt'l complaints, except as documented Hematologic/Lymphatic: Reports systems reviewed and no addt'l complaints, except as documented Rest 14 ROS are negative except as mentioned in HPI Vital Signs Vital Signs Vital Signs: 05/18/22 16:10 05/18/22 16:23 05/18/22 16:28 Temperature 98.7 F 98.7 F 98 F Temperature Source Oral Oral Temporal Pulse Rate 148 H 148 H 163 H Respiratory Rate 27 H 27 H 28 H Respiratory Effort Respiratory Pattern Blood Pressure 135/96 H 135/96 H 136/77 H Blood Pressure Mean 109 96 Pulse Ox 91 91 92 Oxygen Delivery Method Room Air Room Air Room Air Oxygen Flow Rate (L/min) 05/18/22 16:28 05/18/22 16:30 05/18/22 17:03 Temperature 98 F Temperature Source Temporal Pulse Rate 148 H Respiratory Rate 28 H Respiratory Effort Short of Breath Respiratory Pattern Tachypnea Blood Pressure 136/77 H Blood Pressure Mean 96 Pulse Ox 90 Oxygen Delivery Method Room Air Room Air Oxygen Flow Rate (L/min) 05/18/22 17:40 05/18/22 17:45 05/18/22 17:27 Temperature 98.9 F Temperature Source Oral Pulse Rate 128 H Respiratory Rate 14 Respiratory Effort Respiratory Pattern Blood Pressure 123/98 H Blood Pressure Mean 106 Pulse Ox 87 94 98 Oxygen Delivery Method Room Air Nasal Cannula Room Air Oxygen Flow Rate (L/min) 3 05/18/22 18:14 05/18/22 18:46 Temperature Temperature Source Pulse Rate 139 H 144 H Respiratory Rate 38 H 30 H Respiratory Effort Respiratory Pattern Blood Pressure 110/49 L 127/61 H Blood Pressure Mean 69 83 Pulse Ox 95 94 Oxygen Delivery Method Nasal Cannula Nasal Cannula Oxygen Flow Rate (L/min) 3 3 Weight Weight: 146 lb 13.246 oz Body Mass Index (BMI) 21.7 Physical Exam Narrative General: Awake, lethargic, oriented x3, fatigue. Looks sick HEENT: Atraumatic, PERRLA, EOMI, Normocephalic Oral: Oral mucosa dry. No Gingival or Mucosal Lesions/ Ulcerations Neck: Supple, No JVD, Negative Carotid Bruits Lungs: Air entry diminished in bilateral lung bases. Bilateral coarse cr epitations present. Tachypneic and mild hypoxic. Cardiovascular: A. fib RVR, Normal S1, Normal S2, No murmurs Abdomen: Bowel Sounds Present, Soft, Non Tender, Non-Distended : No renal angle tenderness. No suprapubic tenderness. Extremities: No edema, Capillary Refill Less than 3 Seconds Skin: No rashes, No breakdown Musculoskeletal: No Tenderness to Palpation of Joints or Extremities. ROM full Neurological: Cranial nerves II-XII grossly intact, DTR 2+/4 muscle strength 4/5 at major joints of lower extremities. Psych/Mental Status: Flat affect. Results Lab / Micro Data Result Diagrams: 05/19/22 05:55 05/19/22 05:05 Labs: Laboratory Results - last 24 hr 05/18/22 16:12: POC Glucose 179 H 05/18/22 16:45: WBC 21.9 H, RBC 4.26, Hgb 12.7, Hct 37.3, MCV 87.6, MCH 29.8, MCHC 34.0, RDW Std Deviation 44.8 H, RDW Coeff of [place] 14.0, Plt Count 559 H, MPV 9.7, Immature Gran % (Auto) 1.900 H, Neut % (Auto) 93.0 H, Lymph % (Auto) 2.2 L, [place] % (Auto) 2.4, Eos % (Auto) 0.2, Baso % (Auto) 0.3, Absolute Neuts (auto) 20.4 H, Absolute Lymphs (auto) 0.48 L, Nucleated RBC % 0, Differential Comment SEE COMMENT, Platelet Estimate MOD INC, RBC Morphology N CHROM, Anisocytosis RARE 05/18/22 16:45: PT 13.7, INR 1.1, APTT 28.9 05/18/22 16:45: Sodium 123 L, Potassium 2.8 L, Chloride 87 L, Carbon Dioxide 21.0, Anion Gap 15, BUN 19 H, Creatinine 0.74, Estim Creat Clear Calc 54.71, Est GFR (MDRD) Af Amer 99, Est GFR (MDRD) Non-Af 82, BUN/Creatinine Ratio 25.6 H, Glucose 176 H, Calcium 8.7, Troponin I High Sens 57 H, TSH 0.35 L Rhythm Strip Rhythm Strip: A-fib Rate: 145 Ectopy: PVC(s) Radiology Impression Chest X-Ray 05/18/22 16:55 IMPRESSION: Right upper lobe pneumonia. Electronically Signed: Miah Morrell DO at 17:36 EDT Reading Location ID and State: [address] [place] [address] Tel [phone], Service support , Assessment & Plan Assessment/Plan (1) Lobar pneumonia: (2) COVID-19: (3) Atrial fibrillation with rapid ventricular response: (4) Acute hyponatremia: (5) Acute hypokalemia: PLAN: Plan This 26-year-old female being admitted with cough, shortness of breath, low- grade fever, tachycardia, tachypnea and chest x-ray findings history of multilobar pneumonia. 1. COVID-19 multilobar/multifocal pneumonia complicated with bacterial falcon perinfection with acute respiratory insufficiency: Lactic acid pending. Patient is being admitted in PCU. COVID-19 orders including rapid antigen, flu antigen PCR and inflammatory markers including D-dimers are ordered. Liver profile ordered. Patient is started on dexamethasone, IV Rocephin and Zithromax. If liver chemistry in acceptable limit, start remdesivir. ID consult. Pneumonia work-up including urinary antigens, MRSA nasal screen and sputum culture and blood culture ordered. If patient gets respiratory failure will consult moisture conditioner operator. 2. A. fib with RVR, new onset probably precipitated COVID-19 infection/pneumonia: Patient is on IV Cardizem drip, increased to 10 mg/h. Mi ldly elevated troponin. Cycle troponins. TSH tomorrow AM. Serum magnesium and phosphorus. 3. Acute gastroenteritis probably due to COVID-19 complicated with hyponatremia, hypokalemia and hypochloremia: IV fluid normal saline. Monitor electrolytes. Diet initiated. 4. Chronic smoker, possibility of COPD: Patient never evaluated for COPD. 5. Diabetes mellitus type 2: Accu-Chek insulin coverage with Humalog sliding scale. A1c tomorrow a.m. Hold metformin. 6. Debility due to arthritis, osteoporosis Living will/advanced directive/end of life care: Patient does not have living will or advanced directive. Patient does not have designated power of digital design engineer for health. Her next to kin is her and daughter who is present in the room. After discussion of benefits/risks procedures involved with full code, DNR CC arrest and DNR CC, the patient opted for full code. Patient does want artificial life support including intubation, tube feed, ventilator and/chest compression, central venous catheter, vasopressor and DC shock if needed Total time spent in [id number] encounter in discussion of advanced directive 16 minutes. Charges/Coding Visit Charges Inpatient E&M: 47712 Init Hosp L3 Procedures Hospitalists Procedures: 71270 Advncd Care Plan 30 Min
--- NOTE | 2022-05-18 19:14 | ED.RN ---
Multiple attempts by multiple RN's for a second IV, unsuccessful. All meds currently hanging are compatible per Clinical Pharmacology.
[2022-05-18 20:12] LABS: Magnesium 2.4 mg/dL (1.6-2.6); Phosphorus 1.3 mg/dL (2.5-4.9)
[2022-05-18 20:17] LABS: Lactic Acid 1.6 mmol/L (0.4-1.9)
[2022-05-18 20:30] LABS: Fibrinogen > 900 mg/dl (203-444)
[2022-05-18] MEDS: Digoxin 250 MCG/ML Ampul IV ×2 (20:41→22:07)
[2022-05-18 20:43] LABS: BNP,B-Type NATRIURETIC PEPTIDE 232.4 pg/mL (0-100)
[2022-05-18 20:55] LABS: Procalcitonin 6.79 ng/mL (0.00-0.09)
[2022-05-18] MEDS: 0.9% Saline Lock 10 ML Syringe IV ×2 (20:59→22:07)
[2022-05-18 21:02] LABS: D-Dimer Quantitative (DVT/PE) 3.41 FEU/ug/m (0.27-0.49)
--- NOTE | 2022-05-18 21:02 | NURSING ---
Pts primary rn aware of d dimer of 3.41 at this time.
--- NOTE | 2022-05-18 21:03 | CT_ITS ---
STUDY: CTA CHEST REASON FOR EXAM: Female, 72 years old. Date 4 COVID. Cough. Nausea, vomiting and diarrhea. Low-grade fever. Question pulmonary embolus. RADIATION DOSAGE (If Supplied By Facility): CTDIvol = ( 19.42 ) mGy, DLP = ( 494.95 ) mGycm TECHNIQUE: The examination was performed with the intravenous administration of IV 75mL [id number]-370. Post-processing of the angiographic images was performed, with multiplanar reformation and 3D reconstruction. Individualized dose optimization techniques were used for this CT. COMPARISON: Chest, 05/18/2022. FINDINGS: Normal enhancement of the main pulmonary artery and right and left pulmonary arteries. Normal enhancement of the bilateral peripheral pulmonary arteries. There is no demonstrated pulmonary embolism. Mild atherosclerotic tortuosity of the thoracic aorta without aneurysm. There is no demonstrated aortic dissection. Normal heart and pericardium. Coronary artery calcifications. Normal mediastinum. Normal hilar regions. Normal visualized trachea and bronchi. There is volume loss left hemithorax with mediastinal shift. Diffuse infiltrate in the left upper lobe. There is consolidation in the inferior aspect of the upper lobe adjacent to the hilum. There is patchy consolidation in the right posterior costophrenic angle. The left lung is clear. Normal pleura. Normal chest wall structures. There are degenerative changes of thoracic spine. Normal visualized upper abdomen. CT/CTA Chest W/WO Contrast IMPRESSION: 1. No evidence of pulmonary embolus. 2. No aortic dissection or aneurysm. 3. Interstitial alveolar infiltrates in the right upper lobe. There is consolidative changes in the right lung base. 4. Atherosclerotic changes of the thoracic aorta and coronary arteries. Electronically Signed: Miah Morrell DO at 23:08 EDT ,
[2022-05-18] MEDS: Atorvastatin Calcium 20 MG Tablet PO (21:08)
[2022-05-18] MEDS: guaiFENesin 1,200 MG Tablet 1200 MG PO (21:08)
[2022-05-18] MEDS: APIXABAN 5 MG TABLET PO (21:09)
[2022-05-18] MEDS: 0.9% Normal Saline 1,000 ML 100 ML IV (21:09)
[2022-05-18] MEDS: Pantoprazole Sodium 40 MG Tablet PO (21:10)
[2022-05-18 21:24] LABS: AST(SGOT) 47 U/L (15-37); Alanine Aminotransfer ALT/SGPT 30 U/L (13-56); Albumin, Serum 2.1 g/dL (3.2-5.0); Alkaline Phosphatase 59 U/L (45-117); Bilirubin, Direct 0.18 mg/dL (0.00-0.30); Globulin 4.9 g/dL (2.2-4.2); LDH 380 U/L (84-246); Troponin-I HS 64 pg/mL (3.0-54.0)
--- NOTE | 2022-05-18 21:27 | PCM.HOSP.N ---
Hospitalist Note Patient with PAF w/ RVR maxed on cardizem, will trial digoxin, hepatic profile not marked appearing thus will add remdesivir per Dr. Edge request, D-dimer elevated also, will obtain CTPA, continued on eliquis.
[2022-05-18 22:06] LABS: Bedside Glucose 214 mg/dL (74-106)
[2022-05-18] MEDS: dexAMETHasone 10 MG/ML Vial 6 MG IV (22:06)
[2022-05-18] MEDS: Insulin Lispro 100 UNIT/ML INSULN.PEN SC (22:07)
[2022-05-18 22:28] LABS: Alkaline Phosphatase 62 U/L (45-117)
[2022-05-18 23:34] LABS: CPK Total, Creatine Kinase 147 U/L (26-192)
[2022-05-19] VITALS (39 sets, daily range): BP systolic 78–109; BP diastolic 45–65; PULSE 28–116; RESP 24–93; TEMP 36.9–38.1; O2SAT 86–97
[2022-05-19] MEDS: Amiodarone 360 MG in Dextrose 5% Viaflo Bag 192.8 ML 33.3 MG CONT INF (00:15)
[2022-05-19] MEDS: 0.9% Saline Lock 10 ML Syringe IV ×3 (00:17→21:39)
[2022-05-19 00:26] LABS: Troponin-I HS 40 pg/mL (3.0-54.0)
[2022-05-19] MEDS: Amiodarone 360 MG in Dextrose 5% Viaflo Bag 192.8 ML 16.7 MG CONT INF ×2 (05:27→16:44)
[2022-05-19 05:50] LABS: Absolute Lymphocyte Count 0.37 X10^3/uL (0.83-4.51); Absolute Neutrophil Count 19.5 X10^3/uL (2.0-7.7); Basophil# 0.03 X10^3/uL; Basophil% 0.1 % (0-1); Hematocrit 28.2 % (37-47); Hemoglobin 9.7 g/dL (12.0-15.0); Lymphocyte # 0.37 X10^3/ul (0.83-4.51); Lymphocyte % 1.8 % (19-41); Mean Corp Hgb Conc 34.4 g/dL (32-36); Mean Corpuscular Hgb 29.9 pg (27.0-32.0); Mean Platelet Vol. 9.8 fl (6.2-12.0); Monocyte# 0.36 X10^3/uL; Monocyte% 1.7 % (0-10); NRBC Flagged by Analyzer 0 % (0-5); Neutrophil # 19.47 X10^3/uL (2.7-7.7); Neutrophil % 93.8 % (47-70); POSITIVE DIFFERENTIAL YES; Platelet Count 456 K/mm3 (150-450); RBC Distribution Width CV 13.9 % (11.6-14.6); RBC Distribution Width SD 44.1 fl (35.1-43.9); Red Blood Count 3.24 M/mm3 (4.2-5.4); White Blood Count 20.8 K/mm3 (4.4-11.0)
--- NOTE | 2022-05-19 05:55 | ECHOCS_ITS ---
Reason For Study: ATRIAL FIB-FLUTTER Procedure This was a limited 2D transthoracic echocardiogram. The study was technically difficult. Pt scanned supine & on BiPap. Contrast injection was performed. Exam performed portable in patient room. Left Ventricle Normal LV size. Left ventricular systolic function is normal. The estimated ejection fraction is 60 %. No regional wall motion abnormalities noted. Right Ventricle Normal RV size. Normal systolic function. Atria Normal left atrium. Normal right atrium. Mitral Valve Normal mitral valve. Tricuspid Valve Normal tricuspid valve. Aortic Valve Trisinus/trileaflet aortic valve. Pulmonic Valve Normal pulmonic valve. Great Vessels Normal aortic root. The pulmonary artery is normal size. Normal inferior vena cava. Pericardium/Pleural No pericardial effusion. Medication Diluted definity 2ml given slow IV push to enhance endocardial definition. MMode/2D Measurements & Calculations LVIDd: 4.0 cm IVSd: 0.84 cm LAV(MOD-sp4): 57.6 ml LVIDs: 3.1 cm LVPWd: 0.91 cm FS: 23.9 % LVAd ap4: 30.8 cm2 SV(MOD-sp4): 50.8 ml SV(sp4-el): 53.7 ml LVLd ap4: 8.0 cm EDV(MOD-sp4): 97.6 ml EDV(sp4-el): 100.2 ml LVAs ap4: 19.2 cm2 LVLs ap4: 6.7 cm ESV(MOD-sp4): 46.8 ml ESV(sp4-el): 46.5 ml EF(MOD-sp4): 52.1 % EF(sp4-el): 53.6 % LA A4 area: 19.7 cm2 RA A4 area: 9.9 cm2 ECHO/Echo Complete W/ Contrast Interpretation Summary Normal LV size. No regional wall motion abnormalities noted. Left ventricular systolic function is normal. The estimated ejection fraction is 60 %. Contrast injection was performed. Ordering Physician: Filiberto Edge Referring Physician: Misael Molina Performed By: Nai Raines RVT and Student
[2022-05-19 06:25] LABS: Differential Indicated SCAN CRITERIA MET
[2022-05-19 06:35] LABS: Cholesterol 58 mg/dL (200); High Density Lipoprotein 11 mg/dL; T4 Free Direct 1.58 ng/dL (0.76-1.46); Thyroid Stim Hormone (TSH) 0.22 uIU/mL (0.358-3.74); Triglycerides 98 mg/dL; Very Low Density Lipoprotein 20 mg/dL (5-40)
[2022-05-19] MEDS: Insulin Lispro 100 UNIT/ML INSULN.PEN SC ×4 (06:37→21:39)
[2022-05-19 06:48] LABS: ALB/GLOB Ratio 0.4 RATIO (0.9-2.4); AST(SGOT) 127 U/L (15-37); Alanine Aminotransfer ALT/SGPT 58 U/L (13-56); Albumin, Serum 1.6 g/dL (3.2-5.0); Alkaline Phosphatase 48 U/L (45-117); Anion Gap 10 (5-15); BUN 15 mg/dL (7-18); BUN/Creat Ratio 25.6 RATIO (10-20); Calcium,Total 7.1 mg/dL (8.5-10.1); Chloride 96 mmol/L (98-107); Creatinine, Serum 0.59 mg/dL (0.55-1.02); EST Glomerular Filtration Rate 108 mL/min (>60); Est Glom Filt Rate - Afr Amer 130 mL/min (>60); Estimated Creatinine Clearance 52.81 ml/min; Glucose 232 mg/dL (74-106); Phosphorus 1.4 mg/dL (2.5-4.9); Potassium 2.8 mmol/L (3.5-5.1); Protein, Total 5.6 g/dL (6.4-8.2); Sodium Level 126 mmol/L (136-145)
[2022-05-19 06:50] LABS: Platelet Estimate SLT INC (ADEQ)
[2022-05-19 07:00] LABS: Bedside Glucose 231 mg/dL (74-106)
[2022-05-19] MEDS: APIXABAN 5 MG TABLET PO ×2 (08:47→21:38)
[2022-05-19] MEDS: Pantoprazole Sodium 40 MG Tablet PO (08:47)
[2022-05-19] MEDS: dexAMETHasone 4 MG Tablet 6 MG PO (08:47)
[2022-05-19] MEDS: guaiFENesin 1,200 MG Tablet 1200 MG PO ×2 (08:47→21:38)
[2022-05-19 09:05] LABS: Hemoglobin A1c 5.9 % (3.8-5.6)
--- NOTE | 2022-05-19 10:01 | EX.PCM.CONCC ---
Assessment & Plan Assessment/Plan (1) Atrial fibrillation with rapid ventricular response: (2) COVID-19: (3) Legionella pneumonia: (4) History of diabetes mellitus: PLAN: Plan RECOMMENDATIONS: 1. Obtain ABG immediately 2. If pH less than 7.2, transfer to the intensive care unit and initiate BiPAP 3. Initiate BiPAP unless pH greater than 7.35 4. Defer antibiotics to infectious disease 5. Consider addition of bronchodilator therapy 6. Agree with Decadron, may need to transition to IV 7. KVO IV fluids IMPRESSIONS: 1. Acute hypoxic respiratory failure secondary to Legionella pneumonia/COVID-19/probable COPD Patient with rapidly deteriorating respiratory status. Patient is requiring Airvo to maintain saturations. ABG to be ordered. Patient has been very tachypneic, but does not have paradoxical breathing at this time. If patient is found to be severely acidotic, initiation of BiPAP will be necessary. Initiation of BiPAP may help against respiratory muscle fatigue. Patient is very clear that she would be intubated if necessary. If pH is less than 7.2, can try a therapeutic trial of BiPAP, but high risk for intubation, so intensive care would be indicated. Patient is already on Decadron therapy. Azithromycin has been escalated today. Hopefully, majority of hypoxia secondary to Legionella pneumonia as this is readily reversible. Patient may benefit from bronchodilators, but this does complicate patient's previous A. fib with RVR. 2. New onset A. fib with RVR Patient appears to have responded well to amiodarone therapy. Very little background information is available from a cardiac standpoint. Patient does have an echocardiogram ordered. Patient appears to be relatively rate controlled at this time. Troponin is slightly elevated, but this is likely secondary to profound hypoxia secondary to problem #1. Patient does have a history of hyperlipidemia, advanced age and diabetes increasing risk for coronary artery disease. 3. Acute gastroenteritis/chronic smoker/diabetes mellitus type 2/osteoporosis/osteoarthritis/advanced age Complicates care, management, recovery and prognosis. Patient is at risk for COPD given smoking history, but unable to confirm at this time. We will need to watch blood sugars closely given need for Decadron secondary to problem #1. Agree with holding metformin as patient is at risk for lactic acidosis. We will discontinue IV fluids as this has been shown to worsen respiratory failure and COVID-19. HPI Consult Data Date of Consult: 05/19/22 HPI Narrative Reason for Consultation: Respiratory failure HPI Narrative: CARMEN MILLER is a 72 F, with past medical history listed below, who presents to [facility] on 05/18/2022 secondary to progressive shortness of breath, intermittent nausea, vomiting and diarrhea. Patient has a history of diabetes with frequent UTIs, but tested positive for COVID 4 days prior to presenting to the ER at her PCP office. Patient had had some low-grade fevers but denied any dysuria. Patient became progressively weak, so was brought to the ER for evaluation. Patient has had a cough. In the ER, patient was afebrile, but found to be in A. fib with RVR with a heart rate of 163 bpm. Patient was normotensive and saturating 92% on room air. Patient became progressively hypoxic during the ER stay and eventually was on 3 L nasal cannula. Laboratory data showed a white blood cell count of 21.9, hemoglobin of 12.7 and platelets of 559. Coagulation studies were within normal limits. Glucose was slightly elevated at 179. Potassium was low at 2.8 with sodium of 123 and chloride of 87. Renal function was within normal limits. Chest x-ray showed a right upper lobe pneumonia and EKG confirmed A. fib with RVR. Patient was given fluid secondary to the appearance of being dry. Patient was given Zofran for nausea, Rocephin and Zithromax. Patient received both p.o. and IV potassium and was admitted to the PCU. Since being admitted to the hospital, patient has progressively become more hypoxic. Patient is requiring Airvo at 70% to maintain saturations. Patient reportedly has been breathing to 30 to 35 breaths/min. Patient has not taken much p.o. secondary to her respiratory efforts. Patient subjectively feels slightly improved. Patient denies any hemoptysis and is unaware of any fevers. Patient states her nausea is slightly improved. Patient does report that she was vaccinated against COVID-19 and boosted. Patient is unclear if she has had COVID-19 in the past. Patient did recently go to a family reunion in [place] 2 weeks ago. Patient estimates that her symptoms started approximately 7 days ago. Patient's daughter was at the bedside. Patient has never been seen by airport operations duty manager or had PFTs previously. Patient does report a long smoking history and continues to smoke. Patient does have a cough productive of clear to white sputum on a daily basis prior to becoming ill. Patient and daughter are unaware if she has been given prednisone in the past for respiratory illnesses. Patient was very clear that she is willing to be intubated if necessary. Review of systems otherwise negative from a constitutional, HEENT, respiratory, cardiovascular, GI, genitourinary, musculoskeletal, skin, neurologic, psychiatric and hematologic system unless stated above. [facility] Medical History COVID-19 Diabetes Frequent urinary tract infections GERD (gastroesophageal reflux disease) High cholesterol Osteoarthritis Home Medications alendronate 70 mg tablet 70 mg PO MO 05/18/22 [History Last Taken Unknown] atorvastatin 20 mg tablet 20 mg PO QHS 05/18/22 [History Last Taken Unknown] metformin 500 mg tablet 500 mg PO DAILY 05/18/22 [History Last Taken Unknown] methenamine hippurate 1 gram tablet 1 g PO QHS 05/18/22 [History Last Taken Unknown] naproxen 500 mg tablet,delayed release (EC-Naproxen) 500 mg PO BID 05/18/22 [History Last Taken Unknown] omeprazole 40 mg capsule,delayed release 40 mg PO DAILY 05/18/22 [History Last Taken Unknown] ondansetron HCl 4 mg tablet 4 mg PO TID PRN PRN Nausea 05/18/22 [History Last Taken Unknown] Allergy/AdvReac Type Severity Reaction Status Date / Time No Known Allergies Allergy Verified 05/18/22 16:09 Social History Smoking Status: Current every day smoker tobacco type: cigarettes ROS ROS Narrative See HPI Physical Exam Const alert General Appearance: in distress Positive for severe and respiratory and ill appearing Positive for acutely HEENT normocephalic and head/scalp atraumatic HEENT Narrative: Slight micrognathia noted Eyes PERRL and EOMs intact bilaterally Eyes Narrative: Slight scleral injection Neck full ROM Resp Effort and Inspection: tachypneic, labored and uses accessory muscles Auscultation: wheezes and diminished lung sounds; Negative for rales or rhonchi Cardio regular rate, S1 normal heart sound, S2 normal heart sound, no murmurs, no rub and no gallops Rate: tachycardic GI normal to inspection, nondistended, normoactive bowel sounds Extremity General Extremity: Negative for clubbing or edema Skin no rashes or lesions noted Neuro oriented x3, CN's II-XII intact bilaterally, moves all extremities and no focal motor deficits Medical Records Data Attestation: I reviewed the patient's medical records Medical records narrative: Hospital course was personally reviewed and described in the [facility] Lab / Micro Data Attestation: I reviewed the patient's lab results. Result Diagrams: 05/19/22 05:55 05/19/22 05:05 Labs: Laboratory Results - last 24 hr 05/18/22 16:12: POC Glucose 179 H 05/18/22 16:45: WBC 21.9 H, RBC 4.26, Hgb 12.7, Hct 37.3, MCV 87.6, MCH 29.8, MCHC 34.0, RDW Std Deviation 44.8 H, RDW Coeff of Palak 14.0, Plt Count 559 H, MPV 9.7, Immature Gran % (Auto) 1.900 H, Neut % (Auto) 93.0 H, Lymph % (Auto) 2.2 L, [place] % (Auto) 2.4, Eos % (Auto) 0.2, Baso % (Auto) 0.3, Absolute Neuts (auto) 20.4 H, Absolute Lymphs (auto) 0.48 L, Nucleated RBC % 0, Differential Comment SEE COMMENT, Platelet Estimate MOD INC, RBC Morphology N CHROM, Anisocytosis RARE 05/18/22 16:45: PT 13.7, INR 1.1, APTT 28.9 05/18/22 16:45: Sodium 123 L, Potassium 2.8 L, Chloride 87 L, Carbon Dioxide 21.0, Anion Gap 15, BUN 19 H, Creatinine 0.74, Estim Creat Clear Calc 54.71, Est GFR (MDRD) Af Amer 99, Est GFR (MDRD) Non-Af 82, BUN/Creatinine Ratio 25.6 H, Glucose 176 H, Calcium 8.7, Troponin I High Sens 57 H, TSH 0.35 L 05/18/22 18:33: Phosphorus 1.3 L, Magnesium 2.4 05/18/22 19:00: Lactic Acid 1.6 05/18/22 19:39: Fibrinogen > 900 H, D-Dimer Quant (PE/DVT) 3.41 H* 05/18/22 19:39: Total Creatine Kinase 147 05/18/22 19:39: B-Natriuretic Peptide 232.4 H 05/18/22 19:39: Procalcitonin 6.79 H 05/18/22 20:05: Total Bilirubin 0.50, Direct Bilirubin 0.18, AST 47 H, ALT 30, Alkaline Phosphatase 59, Lactate Dehydrogenase 380 H, Troponin I High Sens 64 H, C-React Prot Ext Range 433.00 H, Total Protein 7.0, Albumin 2.1 L, Globulin 4.9 H 05/18/22 20:05: Alkaline Phosphatase 62 05/18/22 20:15: COVID-19 (BHANU) Detected 05/18/22 21:19: POC Glucose 214 H 05/18/22 23:52: Troponin I High Sens 40 05/19/22 05:05: Hemoglobin A1c 5.9 H 05/19/22 05:05: Sodium Cancelled, Potassium Cancelled, Chloride Cancelled, Carbon Dioxide Cancelled, Anion Gap Cancelled, BUN Cancelled, Creatinine Cancelled, Est GFR (MDRD) Af Amer Cancelled, Est GFR (MDRD) Non-Af Cancelled, BUN/Creatinine Ratio Cancelled, Glucose Cancelled, Calcium Cancelled, Triglycerides 98, Cholesterol 58, LDL Cholesterol 27, VLDL Cholesterol 20, HDL Cholesterol 11 L, TSH 0.22 L, Free T4 1.58 H 05/19/22 05:05: Sodium 126 L, Potassium 2.8 L, Chloride 96 L, Carbon Dioxide 20.0 L, Anion Gap 10, BUN 15, Creatinine 0.59, Estim Creat Clear Calc 52.81, Est GFR (MDRD) Af Amer 130, Est GFR (MDRD) Non-Af 108, BUN/Creatinine Ratio 25.6 H, Glucose 232 H, Calcium 7.1 L, Phosphorus 1.4 L, Total Bilirubin 0.40, AST 127 H, ALT 58 H, Alkaline Phosphatase 48, Total Protein 5.6 L, Albumin 1.6 L, Globulin 4.0, Albumin/Globulin Ratio 0.4 L 05/19/22 05:55: WBC 20.8 H, RBC 3.24 L, Hgb 9.7 L, Hct 28.2 L, MCV 87.0, MCH 29.9, MCHC 34.4, RDW Std Deviation 44.1 H, RDW Coeff of Palak 13.9, Plt Count 456 H, MPV 9.8, Immature Gran % (Auto) 2.600 H, Neut % (Auto) 93.8 H, Lymph % (Auto) 1.8 L, [place] % (Auto) 1.7, Eos % (Auto) 0.0, Baso % (Auto) 0.1, Absolute Neuts (auto) 19.5 H, Absolute Lymphs (auto) 0.37 L, Nucleated RBC % 0, Platelet Estimate SLT INC 05/19/22 06:36: POC Glucose 231 H Micro: Microbiology 05/18/22 21:20 Urine, Clean Catch Streptococcus pneumoniae Antigen (M - Final 05/18/22 21:20 Urine, Clean Catch Legionella Antigen - Final Legionella Antigen 05/18/22 18:37 Nasal Secretion SARS-CoV-2 & FLU Antigen (Rapid) - Final ABG Data ABG results: Ordered by myself Rhythm Strip Rhythm Strip: Sinus Tach Rate: 101 Ectopy: PVC(s) Radiology Impression Chest X-Ray 05/18/22 16:55 IMPRESSION: Right upper lobe pneumonia. Electronically Signed: Miah Morrell DO at 17:36 EDT Reading Location ID and State: [facility] [employer] Tel [phone], Service support , Chest CTA 05/18/22 21:03 IMPRESSION: 1. No evidence of pulmonary embolus. 2. No aortic dissection or aneurysm. 3. Interstitial alveolar infiltrates in the right upper lobe. There is consolidative changes in the right lung base. 4. Atherosclerotic changes of the thoracic aorta and coronary arteries. Electronically Signed: Miah Morrell DO at 23:08 EDT Reading Location ID and State: [facility] Tel [phone], Service support , Charges/Coding Visit Charges Inpatient E&M: 70588 Init Hosp L3
[2022-05-19 10:25] LABS: Allen Test Positive; Base Excess -7 mmol/L (-2 to +2); Bicarbonate 17.2 mmol/L (22-26); Blood Gas Specimen Type ART; FI02 70; PO2 54 mmHG (75-100); SITE L Brach; SO2 90 % (95-99); Total Carbon Dioxide 18 mmol/L; pCO2 23.9 mmHg (35-45); pH 7.47 (7.35-7.45)
--- NOTE | 2022-05-19 11:40 | CASEMGMT ---
RN TAMERA called patient in room for initial transition planning/care coordination assessment. DaughterNoni, answered phone in room, RN TAMERA introduced self and role at [facility]. Patient is currently on Airvo and unable to participate in assessment. Noni willing to participate in assessment and is able to answer all questions appropriately. Care providers, pharmacy, and demographics verified. Daughter and patient wish to discharge home, will monitor for HHC pending progress with therapy. DaughterNoni, states she has no further needs or concerns at this time. CM to follow for discharge planning needs that may arise. PCP: Tracy Specialists: Jermaine urologist Preferred Pharmacy: [facility] Insurance: [employer] Prescription Benefit: yes Living Will/HPOA: none LNOK: , daughter Living Arrangements: Patient lives with in a 2 story home with bed and bath on first floor. Patient was independent at home prior to current illness. Transportation: self, daughter DME/HHC: Patient has no DME in the home. No previous HHC or SNF. Daughter states no preferences for DME and after reviewing DME agencies would like [employer]. Will monitor for home oxygen at discharge. Disposition Plan: Patient to discharge home with family support and follow-up plans in place. Will monitor for HHC and home oxygen at discharge. Megan HOUSER, RN, CM
[2022-05-19 12:05] LABS: Bedside Glucose 304 mg/dL (74-106)
--- NOTE | 2022-05-19 14:33 | EKG12_ITS ---
Test Reason : hr Blood Pressure : / mmHG Vent. Rate : 093 BPM Atrial Rate : 082 BPM P-R Int : 000 ms QRS Dur : 090 ms QT Int : 348 ms P-R-T Axes : 000 058 059 degrees QTc Int : 432 ms Atrial fibrillation Low voltage QRS Nonspecific T wave abnormality Abnormal ECG Confirmed by AJ DAY, KEITH ([id number]), science editor LAZARUS RATLIFF ([id number]) on 05/21/2022 9:14:10 AM Referred By: Santos Confirmed By:KEITH ROCHA MD
[2022-05-19 15:16] LABS: Base Excess -6 mmol/L (-2 to +2); Bicarbonate 17.9 mmol/L (22-26); Blood Gas Specimen Type ART; FI02 94; O2 Delivery Device HFNC; PO2 62 mmHG (75-100); SITE L Radial; SO2 94 % (95-99); Total Carbon Dioxide 19 mmol/L; pCO2 24.2 mmHg (35-45); pH 7.48 (7.35-7.45)
--- NOTE | 2022-05-19 15:30 | PCM.CONS.GEN ---
Assessment & Plan Assessment/Plan (1) Legionella pneumonia: (2) COVID-19: PLAN: Hypoxic resp failure with covid and legionella. On dex/remdesivir. Reports booster. Will not add Actemra due to legionella. Cont azithro/ceftriaxone for now. Pulm following. Will follow, thank you, d/w primary team HPI Consult Data Date of Consult: 05/19/22 HPI Narrative Reason for Consultation: covid HPI Narrative: CARMEN MILLER, is a 72 F who presented yesterday with 4-5 days progressive cough, dyspnea, fever, fatigue, not feeling well. Reports covid vaccine and booster. No sick contacts. Tested (+) for covid, sx worsened, came to ED. Started on remdesivir, dex, azithro, ceftriaxone. Legionella (+). Now on airvo. Daughter at bedside provided additional history. Full ROS performed and neg except as noted above. [facility] Medical History COVID-19 Diabetes Frequent urinary tract infections GERD (gastroesophageal reflux disease) High cholesterol Osteoarthritis Home Medications alendronate 70 mg tablet 70 mg PO MO 05/18/22 [History Last Taken Unknown] atorvastatin 20 mg tablet 20 mg PO QHS 05/18/22 [History Last Taken Unknown] metformin 500 mg tablet 500 mg PO DAILY 05/18/22 [History Last Taken Unknown] methenamine hippurate 1 gram tablet 1 g PO QHS 05/18/22 [History Last Taken Unknown] naproxen 500 mg tablet,delayed release (EC-Naproxen) 500 mg PO BID 05/18/22 [History Last Taken Unknown] omeprazole 40 mg capsule,delayed release 40 mg PO DAILY 05/18/22 [History Last Taken Unknown] ondansetron HCl 4 mg tablet 4 mg PO TID PRN PRN Nausea 05/18/22 [History Last Taken Unknown] Allergy/AdvReac Type Severity Reaction Status Date / Time No Known Allergies Allergy Verified 05/18/22 16:09 Social History Smoking Status: Current every day smoker tobacco type: cigarettes Physical Exam Const no apparent distress General Appearance: lethargic HEENT normocephalic and head/scalp atraumatic Eyes PERRL and EOMs intact bilaterally Neck supple and No nodes Resp Auscultation: diminished lung sounds Cardio Rate: tachycardic GI soft to palpation, non-tender and non-distended Extremity General Extremity: Negative for edema Skin no rashes or lesions noted Neuro CN's II-XII intact bilaterally Lab / Micro Data Attestation: I reviewed the patient's lab results. Result Diagrams: 05/19/22 05:55 05/19/22 05:05 Labs: Laboratory Results - last 24 hr 05/18/22 16:12: POC Glucose 179 H 05/18/22 16:45: WBC 21.9 H, RBC 4.26, Hgb 12.7, Hct 37.3, MCV 87.6, MCH 29.8, MCHC 34.0, RDW Std Deviation 44.8 H, RDW Coeff of Palak 14.0, Plt Count 559 H, MPV 9.7, Immature Gran % (Auto) 1.900 H, Neut % (Auto) 93.0 H, Lymph % (Auto) 2.2 L, [place] % (Auto) 2.4, Eos % (Auto) 0.2, Baso % (Auto) 0.3, Absolute Neuts (auto) 20.4 H, Absolute Lymphs (auto) 0.48 L, Nucleated RBC % 0, Differential Comment SEE COMMENT, Platelet Estimate MOD INC, RBC Morphology N CHROM, Anisocytosis RARE 05/18/22 16:45: PT 13.7, INR 1.1, APTT 28.9 05/18/22 16:45: Sodium 123 L, Potassium 2.8 L, Chloride 87 L, Carbon Dioxide 21.0, Anion Gap 15, BUN 19 H, Creatinine 0.74, Estim Creat Clear Calc 54.71, Est GFR (MDRD) Af Amer 99, Est GFR (MDRD) Non-Af 82, BUN/Creatinine Ratio 25.6 H, Glucose 176 H, Calcium 8.7, Troponin I High Sens 57 H, TSH 0.35 L 05/18/22 18:33: Phosphorus 1.3 L, Magnesium 2.4 05/18/22 19:00: Lactic Acid 1.6 05/18/22 19:39: Fibrinogen > 900 H, D-Dimer Quant (PE/DVT) 3.41 H* 05/18/22 19:39: Total Creatine Kinase 147 05/18/22 19:39: B-Natriuretic Peptide 232.4 H 05/18/22 19:39: Procalcitonin 6.79 H 05/18/22 20:05: Total Bilirubin 0.50, Direct Bilirubin 0.18, AST 47 H, ALT 30, Alkaline Phosphatase 59, Lactate Dehydrogenase 380 H, Troponin I High Sens 64 H, C-React Prot Ext Range 433.00 H, Total Protein 7.0, Albumin 2.1 L, Globulin 4.9 H 05/18/22 20:05: Alkaline Phosphatase 62 05/18/22 20:15: COVID-19 (BHANU) Detected 05/18/22 21:19: POC Glucose 214 H 05/18/22 23:52: Troponin I High Sens 40 05/19/22 05:05: Hemoglobin A1c 5.9 H 05/19/22 05:05: Sodium Cancelled, Potassium Cancelled, Chloride Cancelled, Carbon Dioxide Cancelled, Anion Gap Cancelled, BUN Cancelled, Creatinine Cancelled, Est GFR (MDRD) Af Amer Cancelled, Est GFR (MDRD) Non-Af Cancelled, BUN/Creatinine Ratio Cancelled, Glucose Cancelled, Calcium Cancelled, Triglycerides 98, Cholesterol 58, LDL Cholesterol 27, VLDL Cholesterol 20, HDL Cholesterol 11 L, TSH 0.22 L, Free T4 1.58 H 05/19/22 05:05: Sodium 126 L, Potassium 2.8 L, Chloride 96 L, Carbon Dioxide 20.0 L, Anion Gap 10, BUN 15, Creatinine 0.59, Estim Creat Clear Calc 52.81, Est GFR (MDRD) Af Amer 130, Est GFR (MDRD) Non-Af 108, BUN/Creatinine Ratio 25.6 H, Glucose 232 H, Calcium 7.1 L, Phosphorus 1.4 L, Total Bilirubin 0.40, AST 127 H, ALT 58 H, Alkaline Phosphatase 48, Total Protein 5.6 L, Albumin 1.6 L, Globulin 4.0, Albumin/Globulin Ratio 0.4 L 05/19/22 05:55: WBC 20.8 H, RBC 3.24 L, Hgb 9.7 L, Hct 28.2 L, MCV 87.0, MCH 29.9, MCHC 34.4, RDW Std Deviation 44.1 H, RDW Coeff of Palak 13.9, Plt Count 456 H, MPV 9.8, Immature Gran % (Auto) 2.600 H, Neut % (Auto) 93.8 H, Lymph % (Auto) 1.8 L, [place] % (Auto) 1.7, Eos % (Auto) 0.0, Baso % (Auto) 0.1, Absolute Neuts (auto) 19.5 H, Absolute Lymphs (auto) 0.37 L, Nucleated RBC % 0, Platelet Estimate SLT INC 05/19/22 06:36: POC Glucose 231 H 05/19/22 11:41: POC Glucose 304 H Micro: Microbiology 05/18/22 21:20 Urine, Clean Catch Streptococcus pneumoniae Antigen (M - Final 05/18/22 21:20 Urine, Clean Catch Legionella Antigen - Final Legionella Antigen 05/18/22 18:37 Nasal Secretion SARS-CoV-2 & FLU Antigen (Rapid) - Final ABG Data ABG results: ABG 05/19/22 05/19/22 10:21 15:08 Specimen Type ART ART Sample Site L Brach L Radial pH 7.47 H 7.48 H Bicarbonate Actual 17.2 L 17.9 L Total CO2 18 19 Base Excess -7 L -6 L O2 Saturation 90 L 94 L O2 % 70 94 ABG pCO2 23.9 L 24.2 L ABG pO2 54 L 62 L Lakhwinder Test Positive O2 Delivery Device HFNC Clinical Comments airvo 00cav79% Rhythm Strip Rhythm Strip: Sinus Tach Rate: 101 Ectopy: PVC(s) Radiology Impression Chest X-Ray 05/18/22 16:55 IMPRESSION: Right upper lobe pneumonia. Electronically Signed: Miah Morrell DO at 17:36 EDT Reading Location ID and State: [facility] Tel [phone], Service support , Chest CTA 05/18/22 21:03 IMPRESSION: 1. No evidence of pulmonary embolus. 2. No aortic dissection or aneurysm. 3. Interstitial alveolar infiltrates in the right upper lobe. There is consolidative changes in the right lung base. 4. Atherosclerotic changes of the thoracic aorta and coronary arteries. Electronically Signed: Miah Morrell DO at 23:08 EDT Reading Location ID and State: [facility] Tel [phone], Service support ,
--- NOTE | 2022-05-19 15:42 | PCM.PN.HOSP ---
Subjective Subjective Seen and examined. Overnight patient was more short of breath and was put on Airvo. Liver chemistry in the settable limits therefore started on remdesivir. CT angiogram of chest was done which shows no PE but multifocal interstitial and lobar consolidation suggestive of multifocal pneumonia. Prototype Machinist consult requested. Objective Data Objective Data Vital Signs: Vital Signs Temp Pulse Resp BP Pulse Ox O2 Del Method O2 Flow Rate 98.5 F 91 27 H 97/61 91 Airvo 60 05/19/22 12:00 05/19/22 15:31 05/19/22 14:00 05/19/22 14:00 05/19/22 14:00 05/19/22 14:00 05/19/22 14:00 FiO2 93 05/19/22 14:00 Oxygen Flow Rate (L/min) 60 Oxygen Delivery Method Airvo Weight: 148 lb 12.992 oz Body Mass Index (BMI) 21.5 Intake & Output: Intake and Output for Last 24 Hours 05/17/22 05/18/22 05/19/22 23:59 23:59 23:59 Intake Total 1967.92 / 2282.92 2427.65 / 2427.65 Output Total 650 / 650 Balance 1967.92 / 2182.92 1777.65 / 1777.65 Lab / Micro Data Result Diagrams: 05/19/22 05:55 05/19/22 05:05 Labs: Laboratory Results - last 24 hr 05/18/22 16:12: POC Glucose 179 H 05/18/22 16:45: WBC 21.9 H, RBC 4.26, Hgb 12.7, Hct 37.3, MCV 87.6, MCH 29.8, MCHC 34.0, RDW Std Deviation 44.8 H, RDW Coeff of Palak 14.0, Plt Count 559 H, MPV 9.7, Immature Gran % (Auto) 1.900 H, Neut % (Auto) 93.0 H, Lymph % (Auto) 2.2 L, Pacific % (Auto) 2.4, Eos % (Auto) 0.2, Baso % (Auto) 0.3, Absolute Neuts (auto) 20.4 H, Absolute Lymphs (auto) 0.48 L, Nucleated RBC % 0, Differential Comment SEE COMMENT, Platelet Estimate MOD INC, RBC Morphology N CHROM, Anisocytosis RARE 05/18/22 16:45: PT 13.7, INR 1.1, APTT 28.9 05/18/22 16:45: Sodium 123 L, Potassium 2.8 L, Chloride 87 L, Carbon Dioxide 21.0, Anion Gap 15, BUN 19 H, Creatinine 0.74, Estim Creat Clear Calc 54.71, Est GFR (MDRD) Af Amer 99, Est GFR (MDRD) Non-Af 82, BUN/Creatinine Ratio 25.6 H, Glucose 176 H, Calcium 8.7, Troponin I High Sens 57 H, TSH 0.35 L 05/18/22 18:33: Phosphorus 1.3 L, Magnesium 2.4 05/18/22 19:00: Lactic Acid 1.6 05/18/22 19:39: Fibrinogen > 900 H, D-Dimer Quant (PE/DVT) 3.41 H* 05/18/22 19:39: Total Creatine Kinase 147 05/18/22 19:39: B-Natriuretic Peptide 232.4 H 05/18/22 19:39: Procalcitonin 6.79 H 05/18/22 20:05: Total Bilirubin 0.50, Direct Bilirubin 0.18, AST 47 H, ALT 30, Alkaline Phosphatase 59, Lactate Dehydrogenase 380 H, Troponin I High Sens 64 H, C-React Prot Ext Range 433.00 H, Total Protein 7.0, Albumin 2.1 L, Globulin 4.9 H 05/18/22 20:05: Alkaline Phosphatase 62 05/18/22 20:15: COVID-19 (BHANU) Detected 05/18/22 21:19: POC Glucose 214 H 05/18/22 23:52: Troponin I High Sens 40 05/19/22 05:05: Hemoglobin A1c 5.9 H Triglycerides 98, Cholesterol 58, LDL Cholesterol 27, VLDL Cholesterol 20, HDL Cholesterol 11 L, TSH 0.22 L, Free T4 1.58 H 05/19/22 05:05: Sodium 126 L, Potassium 2.8 L, Chloride 96 L, Carbon Dioxide 20.0 L, Anion Gap 10, BUN 15, Creatinine 0.59, Estim Creat Clear Calc 52.81, Est GFR (MDRD) Af Amer 130, Est GFR (MDRD) Non-Af 108, BUN/Creatinine Ratio 25.6 H, Glucose 232 H, Calcium 7.1 L, Phosphorus 1.4 L, Total Bilirubin 0.40, AST 127 H, ALT 58 H, Alkaline Phosphatase 48, Total Protein 5.6 L, Albumin 1.6 L, Globulin 4.0, Albumin/Globulin Ratio 0.4 L 05/19/22 05:55: WBC 20.8 H, RBC 3.24 L, Hgb 9.7 L, Hct 28.2 L, MCV 87.0, MCH 29.9, MCHC 34.4, RDW Std Deviation 44.1 H, RDW Coeff of Palak 13.9, Plt Count 456 H, MPV 9.8, Immature Gran % (Auto) 2.600 H, Neut % (Auto) 93.8 H, Lymph % (Auto) 1.8 L, Pacific % (Auto) 1.7, Eos % (Auto) 0.0, Baso % (Auto) 0.1, Absolute Neuts (auto) 19.5 H, Absolute Lymphs (auto) 0.37 L, Nucleated RBC % 0, Platelet Estimate T INC 05/19/22 06:36: POC Glucose 231 H 05/19/22 11:41: POC Glucose 304 H Micro: Microbiology 05/18/22 21:20 Urine, Clean Catch Streptococcus pneumoniae Antigen (M - Final 05/18/22 21:20 Urine, Clean Catch Legionella Antigen - Final Legionella Antigen 05/18/22 18:37 Nasal Secretion SARS-CoV-2 & FLU Antigen (Rapid) - Final ABG Data ABG results: ABG 05/19/22 05/19/22 10:21 15:08 Specimen Type ART ART Sample Site L Brach L Radial pH 7.47 H 7.48 H Bicarbonate Actual 17.2 L 17.9 L Total CO2 18 19 Base Excess -7 L -6 L O2 Saturation 90 L 94 L O2 % 70 94 ABG pCO2 23.9 L 24.2 L ABG pO2 54 L 62 L Lakhwinder Test Positive O2 Delivery Device HFNC Clinical Comments airvo [id number] Radiography Diagnostic Testing: Radiology Impression Chest X-Ray 05/18/22 16:55 IMPRESSION: Right upper lobe pneumonia. Electronically Signed: Miah Morrell DO at 17:36 EDT Reading Location ID and State: [facility] / [place] Tel [phone], Service support , Chest CTA 05/18/22 21:03 IMPRESSION: 1. No evidence of pulmonary embolus. 2. No aortic dissection or aneurysm. 3. Interstitial alveolar infiltrates in the right upper lobe. There is consolidative changes in the right lung base. 4. Atherosclerotic changes of the thoracic aorta and coronary arteries. Electronically Signed: Miah Morrell DO at 23:08 EDT Reading Location ID and State: [facility] / [place] Tel [phone], Service support , Rhythm Strip Rhythm Strip: Sinus Tach Rate: 101 Ectopy: PVC(s) Physical Exam Narrative General: Looks sick, dyspnea at rest. Lethargic. Oriented x3 HEENT: Atraumatic, PERRLA, EOMI, Normocephalic Oral: Oral mucosa dry. No Gingival or Mucosal Lesions/ Ulcerations Neck: Supple, No JVD, Negative Carotid Bruits Lungs: Air entry diminished in bilateral lung bases. Bilateral coarse crepitations present. Tachypneic and hypoxic. On Airvo Cardiovascular: A. fib RVR, Normal S1, Normal S2, No murmurs Abdomen: Bowel Sounds Present, Soft, Non Tender, Non-Distended : No renal angle tenderness. No suprapubic tenderness. Extremities: No edema, Capillary Refill Less than 3 Seconds Skin: No rashes, No breakdown Musculoskeletal: No Tenderness to Palpation of Joints or Extremities. ROM full Neurological: Cranial nerves II-XII grossly intact, DTR 2+/4 muscle strength 4/5 at major joints of lower extremities. Psych/Mental Status: Flat affect. Assessment & Plan Assessment/Plan (1) Lobar pneumonia: (2) COVID-19: (3) Atrial fibrillation with rapid ventricular response: (4) Acute hyponatremia: (5) Acute hypokalemia: PLAN: Plan This 26-year-old female being admitted with cough, shortness of breath, low-grade fever, tachycardia, tachypnea and chest x-ray findings history of multilobar pneumonia. 1. Acute hypoxic respiratory failure due to COVID-19 multilobar/multifocal pneumonia complicated with bacterial superinfection, Legionella pneumonia: Lactic acid pending. Patient is being admitted in PCU. COVID-19 orders including rapid antigen, flu antigen PCR and inflammatory markers including D-dimers are ordered. Liver profile ordered. Patient is started on dexamethasone, IV Rocephin and Zithromax. If liver chemistry in acceptable limit, start remdesivir. ID consult. Pneumonia work-up including urinary antigens, MRSA nasal screen and sputum culture and blood culture ordered. If patient gets respiratory failure will consult wrist closer. 05/19: Liver chemistry shows AST 47 otherwise normal. Inflammatory markers are high including LDH, troponin, D-dimer and fibrinogen. Procalcitonin high 6.79 therefore high risk for worsening of infection, sepsis or septic shock. Currently patient clinical exam, labs and parameters do not suggest sepsis. Cloth Washer consult and ID consult reviewed and appreciated. Patient on ceftriaxone and Zithromax which will cover Legionella. Continue dexamethasone and remdesivir. Tocilizumab contraindicated patient has Legionella. Repeat ABG was done 7.48/ on 70% FiO2, 50 L/min Airvo. Overall suggestive of acute respiratory alkalosis. As patient is not acidotic or pH less than 7.34 we will continue Airvo. 2. A. fib with RVR, new onset probably precipitated COVID-19 infection/pneumonia: Patient is on IV Cardizem drip, increased to 10 mg/h. Mildly elevated troponin. Cycle troponins. TSH tomorrow AM. Serum magnesium and phosphorus. 05/19: Heart rate in 90. Heart rate is controlled. Patient initiated on amiodarone. Patient had digoxin. Titrate down Cardizem. 3. Acute gastroenteritis probably due to COVID-19 complicated with hyponatremia, hypokalemia and hypochloremia: IV fluid normal saline. Monitor electrolytes. Diet initiated. 4. Chronic smoker, possibility of COPD: Patient never evaluated for COPD. 5. Diabetes mellitus type 2: Accu-Chek insulin coverage with Humalog sliding scale. A1c tomorrow a.m. Hold metformin. 6. Debility due to arthritis, osteoporosis Total time of the visit including total time spent in counseling or coordination of care, (more than 50% of the total time, spent in obtaining medical information from nurses and other ancillary care providers,explaining to the patient about labs, imaging, diagnosis and management), discussion with consultants ID and communications strategist, clinical update given to daughter near the bedside review of labs and imaging is 45 minutes. Living will/advanced directive/end of life care: Patient does not have living will or advanced directive. Patient does not have designated power of patent prosecution attorney for health. Her next to kin is her and daughter who is present in the room. After discussion of benefits/risks procedures involved with full code, DNR CC arrest and DNR CC, the patient opted for full code. Patient does want artificial life support including intubation, tube feed, ventilator and/chest compression, central venous catheter, vasopressor and DC shock if needed Total time spent in [id number] encounter in discussion of advanced directive 16 minutes. Charges/Coding Visit Charges Inpatient E&M: 14078 Subs Hosp L3
[2022-05-19 16:21] LABS: Bedside Glucose 204 mg/dL (74-106)
--- NOTE | 2022-05-19 19:00 | NURSING ---
Pt's rate on cardizem was 15ml/hr not 5 mg that was charted by the previous nurse. Was verified during rounding on the patient.
[2022-05-19] MEDS: Atorvastatin Calcium 20 MG Tablet PO (21:38)
[2022-05-19 22:16] LABS: Bedside Glucose 225 mg/dL (74-106)
[2022-05-20] VITALS (38 sets, daily range): BP systolic 87–114; BP diastolic 47–81; PULSE 74–114; RESP 23–44; TEMP 36.1–37.1; O2SAT 88–99
[2022-05-20 06:29] LABS: Absolute Lymphocyte Count 0.53 X10^3/uL (0.83-4.51); Absolute Neutrophil Count 19.7 X10^3/uL (2.0-7.7); Basophil# 0.05 X10^3/uL; Basophil% 0.2 % (0-1); Eosinophil# 0.04 X10^3/uL; Eosinophils% 0.2 % (0-5); Hematocrit 29.7 % (37-47); Hemoglobin 10.3 g/dL (12.0-15.0); Lymphocyte # 0.53 X10^3/ul (0.83-4.51); Lymphocyte % 2.5 % (19-41); Mean Corp Hgb Conc 34.7 g/dL (32-36); Mean Corpuscular Hgb 29.8 pg (27.0-32.0); Mean Corpuscular Volume 85.8 fL (81-99); Mean Platelet Vol. 9.8 fl (6.2-12.0); Monocyte# 0.77 X10^3/uL; Monocyte% 3.6 % (0-10); NRBC Flagged by Analyzer 0 % (0-5); Neutrophil # 19.68 X10^3/uL (2.7-7.7); Neutrophil % 91.4 % (47-70); POSITIVE DIFFERENTIAL YES; Platelet Count 548 K/mm3 (150-450); RBC Distribution Width CV 14.2 % (11.6-14.6); RBC Distribution Width SD 44.3 fl (35.1-43.9); Red Blood Count 3.46 M/mm3 (4.2-5.4); White Blood Count 21.5 K/mm3 (4.4-11.0)
[2022-05-20 06:39] LABS: Differential Indicated SCAN CRITERIA MET
[2022-05-20] MEDS: Insulin Lispro 100 UNIT/ML INSULN.PEN SC ×4 (06:52→21:05)
[2022-05-20 06:54] LABS: Anion Gap 11 (5-15); BUN 16 mg/dL (7-18); BUN/Creat Ratio 31.4 RATIO (10-20); Calcium,Total 7.2 mg/dL (8.5-10.1); Chloride 96 mmol/L (98-107); Creatinine, Serum 0.51 mg/dL (0.55-1.02); EST Glomerular Filtration Rate 127 mL/min (>60); Est Glom Filt Rate - Afr Amer 154 mL/min (>60); Estimated Creatinine Clearance 52.81 ml/min; Glucose 206 mg/dL (74-106); Potassium 3.2 mmol/L (3.5-5.1); Sodium Level 129 mmol/L (136-145)
[2022-05-20 06:55] LABS: Differential Comment SCANNED
[2022-05-20 07:20] LABS: Bedside Glucose 219 mg/dL (74-106)
[2022-05-20 07:50] LABS: Phosphorus 1.7 mg/dL (2.5-4.9)
[2022-05-20] MEDS: dexAMETHasone 4 MG Tablet 6 MG PO (08:39)
[2022-05-20] MEDS: APIXABAN 5 MG TABLET PO ×2 (08:40→21:05)
[2022-05-20] MEDS: Pantoprazole Sodium 40 MG Tablet PO (08:40)
[2022-05-20] MEDS: guaiFENesin 1,200 MG Tablet 1200 MG PO ×2 (08:40→21:05)
--- NOTE | 2022-05-20 08:48 | PCM.PN.INT ---
Assessment & Plan Assessment/Plan (1) Atrial fibrillation with rapid ventricular response: (2) COVID-19: (3) Legionella pneumonia: (4) History of diabetes mellitus: PLAN: Plan RECOMMENDATIONS: 1. Add BiPAP as needed and nightly 2. Wean supplemental oxygen as tolerated 3. Cannot exclude need for ICU transfer 4. Defer antibiotics to infectious disease 5. Add LFTs given Remdesivir 6. Agree with Decadron, may need to transition to IV 7. Aggressive electrolyte supplementation IMPRESSIONS: 1. Acute hypoxic respiratory failure secondary to Legionella pneumonia/COVID-19/probable COPD Patient's respiratory status appears to have somewhat stabilized. Patient is still requiring significant FiO2 to maintain saturations. Some concern for continued tachypnea leading to respiratory muscle fatigue. Will add BiPAP as needed to see if this will help with respiratory rate. Heart rate has been controlled, which does help to situation. Patient is on adequate therapy for Legionella pneumonia. Patient is receiving Decadron and remdesivir. Given Remdesivir, LFTs will be checked. 2. New onset A. fib with RVR Patient appears to have responded well to amiodarone therapy. Very little background information is available from a cardiac standpoint. Patient does have an echocardiogram ordered. Patient appears to be relatively rate controlled at this time. Troponin is slightly elevated, but this is likely secondary to profound hypoxia secondary to problem #1. Patient does have a history of hyperlipidemia, advanced age and diabetes increasing risk for coronary artery disease. 3. Acute gastroenteritis/chronic smoker/diabetes mellitus type 2/osteoporosis/osteoarthritis/advanced age Complicates care, management, recovery and prognosis. Patient is at risk for COPD given smoking history, but unable to confirm at this time. We will need to watch blood sugars closely given need for Decadron secondary to problem #1, but appears to be tolerating. Recommend limiting IV fluids as these has been shown to worsen respiratory failure and COVID-19. Subjective Subjective Patient subjectively feels slightly improved compared to yesterday. Patient is reporting a periodic cough without production. Patient's oxygenation remains marginal on maximum Airvo. Patient does continue to be tachypneic into the 30s, but does not describe her self as getting tired. Patient is asking to get to the chair later today. Objective Data Objective Data Vital Signs: Vital Signs Temp Pulse Resp BP Pulse Ox O2 Del Method O2 Flow Rate 36.4 C L 94 36 H 103/59 L 88 Airvo 60 05/20/22 08:00 05/20/22 08:38 05/20/22 08:00 05/20/22 08:00 05/20/22 08:00 05/20/22 08:00 05/20/22 08:00 FiO2 93 05/20/22 08:00 Oxygen Flow Rate (L/min) 60 Oxygen Delivery Method Airvo Weight: 67.5 kg Body Mass Index (BMI) 21.5 Intake & Output: Intake and Output for Last 24 Hours 05/18/22 05/19/22 05/20/22 23:59 23:59 23:59 Intake Total 1967.92 / 2282.92 3761.9533 / 4016.9533 772.91 / 772.91 Output Total 650 / 770 320 / 320 Balance 1967.92 / 2182.92 3111.9533 / 3246.9533 452.91 / 452.91 Lab / Micro Data Attestation: I reviewed the patient's lab results. Result Diagrams: 05/20/22 05:40 05/20/22 05:40 Labs: Laboratory Results - last 24 hr 05/19/22 05:05: Hemoglobin A1c 5.9 H 05/19/22 11:41: POC Glucose 304 H 05/19/22 15:55: POC Glucose 204 H 05/19/22 21:37: POC Glucose 225 H 05/20/22 05:40: WBC 21.5 H, RBC 3.46 L, Hgb 10.3 L, Hct 29.7 L, MCV 85.8, MCH 29.8, MCHC 34.7, RDW Std Deviation 44.3 H, RDW Coeff of Palak 14.2, Plt Count 548 H, MPV 9.8, Immature Gran % (Auto) 2.100 H, Neut % (Auto) 91.4 H, Lymph % (Auto) 2.5 L, Cavalier % (Auto) 3.6, Eos % (Auto) 0.2, Baso % (Auto) 0.2, Absolute Neuts (auto) 19.7 H, Absolute Lymphs (auto) 0.53 L, Nucleated RBC % 0, Differential Comment SCANNED 05/20/22 05:40: Sodium 129 L, Potassium 3.2 L, Chloride 96 L, Carbon Dioxide 22.0, Anion Gap 11, BUN 16, Creatinine 0.51 L, Estim Creat Clear Calc 52.81, Est GFR (MDRD) Af Amer 154, Est GFR (MDRD) Non-Af 127, BUN/Creatinine Ratio 31.4 H, Glucose 206 H, Calcium 7.2 L 05/20/22 05:40: Phosphorus 1.7 L 05/20/22 06:52: POC Glucose 219 H Micro: Microbiology 05/18/22 19:00 Blood Culture (Wb) - Anticubital Right Blood Culture - Preliminary No growth in 48 hours. 05/18/22 21:20 Urine, Clean Catch Streptococcus pneumoniae Antigen (M - Final 05/18/22 21:20 Urine, Clean Catch Legionella Antigen - Final Legionella Antigen 05/18/22 18:37 Nasal Secretion SARS-CoV-2 & FLU Antigen (Rapid) - Final ABG Data ABG results: ABG 05/19/22 05/19/22 10:21 15:08 Specimen Type ART ART Sample Site L Brach L Radial pH 7.47 H 7.48 H Bicarbonate Actual 17.2 L 17.9 L Total CO2 18 19 Base Excess -7 L -6 L O2 Saturation 90 L 94 L O2 % 70 94 ABG pCO2 23.9 L 24.2 L ABG pO2 54 L 62 L Lakhwinder Test Positive O2 Delivery Device HFNC Clinical Comments airvo [id number] Radiography Diagnostic Testing: Radiology Impression Echocardiogram 05/19/22 05:55 Interpretation Summary Normal LV size. No regional wall motion abnormalities noted. Left ventricular systolic function is normal. The estimated ejection fraction is 60 %. Contrast injection was performed. Ordering Physician: Filiberto Edge Referring Physician: Misael Mloina Performed By: Nai Raines RVT and Student Rhythm Strip Rhythm Strip: A-fib Rate: 87 Ectopy: PVC(s) Physical Exam Const alert General Appearance: in distress Positive for severe and respiratory and ill appearing Positive for acutely HEENT normocephalic and head/scalp atraumatic Eyes PERRL and EOMs intact bilaterally Eyes Narrative: Slight scleral injection Neck full ROM Resp Effort and Inspection: tachypneic, labored and uses accessory muscles Auscultation: wheezes and diminished lung sounds; Negative for rales or rhonchi Cardio regular rate, S1 normal heart sound, S2 normal heart sound, no murmurs, no rub and no gallops Rate: tachycardic GI normal to inspection, nondistended, normoactive bowel sounds Extremity General Extremity: Negative for clubbing or edema Skin no rashes or lesions noted Neuro oriented x3, CN's II-XII intact bilaterally, moves all extremities and no focal motor deficits Charges/Coding Visit Charges Inpatient E&M: 78785 Subs Hosp L3
[2022-05-20] MEDS: Digoxin 250 MCG/ML Ampul IV (09:11)
[2022-05-20] MEDS: Amiodarone 200 MG Tablet PO ×2 (10:14→16:32)
[2022-05-20] MEDS: Ondansetron 4 MG/2 ML Vial IV (10:37)
[2022-05-20 12:12] LABS: AST(SGOT) 233 U/L (15-37); Alanine Aminotransfer ALT/SGPT 130 U/L (13-56); Albumin, Serum 1.7 g/dL (3.2-5.0); Alkaline Phosphatase 55 U/L (45-117); Bilirubin, Direct 0.15 mg/dL (0.00-0.30); Globulin 4.1 g/dL (2.2-4.2); Protein, Total 5.8 g/dL (6.4-8.2)
[2022-05-20 12:40] LABS: Bedside Glucose 240 mg/dL (74-106)
--- NOTE | 2022-05-20 14:11 | PCM.PN.HOSP ---
Subjective Subjective Follow-up for acute hypoxic respiratory failure secondary to bilateral COVID-19 and bacterial pneumonia and A. fib with RVR Patient is still very short of breath, increased work of breathing/labored breathing. Tired. Started on AVAPS. T-max 100.5 Fahrenheit more than 24 hours ago. Objective Data Objective Data Vital Signs: Vital Signs Temp Pulse Resp BP Pulse Ox O2 Del Method O2 Flow Rate 98.8 F 89 44 H 114/73 97 Airvo 44 05/20/22 11:15 05/20/22 12:32 05/20/22 11:15 05/20/22 11:15 05/20/22 11:15 05/20/22 11:15 05/20/22 11:15 FiO2 83 05/20/22 11:15 Oxygen Flow Rate (L/min) 44 Oxygen Delivery Method Airvo Weight: 148 lb 12.992 oz Body Mass Index (BMI) 21.5 Intake & Output: Intake and Output for Last 24 Hours 05/18/22 05/19/22 05/20/22 23:59 23:59 23:59 Intake Total 1967.92 / 2282.92 3761.9533 / 4016.9533 1090.99 / 1090.99 Output Total 650 / 770 320 / 320 Balance 1967.92 / 2182.92 3111.9533 / 3246.9533 770.99 / 770.99 Lab / Micro Data Result Diagrams: 05/20/22 05:40 05/20/22 05:40 Labs: Laboratory Results - last 24 hr 05/19/22 15:55: POC Glucose 204 H 05/19/22 21:37: POC Glucose 225 H 05/20/22 05:40: WBC 21.5 H, RBC 3.46 L, Hgb 10.3 L, Hct 29.7 L, MCV 85.8, MCH 29.8, MCHC 34.7, RDW Std Deviation 44.3 H, RDW Coeff of Palak 14.2, Plt Count 548 H, MPV 9.8, Immature Gran % (Auto) 2.100 H, Neut % (Auto) 91.4 H, Lymph % (Auto) 2.5 L, [place] % (Auto) 3.6, Eos % (Auto) 0.2, Baso % (Auto) 0.2, Absolute Neuts (auto) 19.7 H, Absolute Lymphs (auto) 0.53 L, Nucleated RBC % 0, Differential Comment SCANNED 05/20/22 05:40: Sodium 129 L, Potassium 3.2 L, Chloride 96 L, Carbon Dioxide 22.0, Anion Gap 11, BUN 16, Creatinine 0.51 L, Estim Creat Clear Calc 52.81, Est GFR (MDRD) Af Amer 154, Est GFR (MDRD) Non-Af 127, BUN/Creatinine Ratio 31.4 H, Glucose 206 H, Calcium 7.2 L 05/20/22 05:40: Phosphorus 1.7 L 05/20/22 05:40: Total Bilirubin 0.40, Direct Bilirubin 0.15, AST 233 H, ALT 130 H, Alkaline Phosphatase 55, Total Protein 5.8 L, Albumin 1.7 L, Globulin 4.1 05/20/22 06:52: POC Glucose 219 H 05/20/22 11:02: POC Glucose 240 H Micro: Microbiology 05/18/22 19:00 Blood Culture (Wb) - Anticubital Right Blood Culture - Preliminary No growth in 48 hours. 05/18/22 21:20 Urine, Clean Catch Streptococcus pneumoniae Antigen (M - Final 05/18/22 21:20 Urine, Clean Catch Legionella Antigen - Final Legionella Antigen 05/18/22 18:37 Nasal Secretion SARS-CoV-2 & FLU Antigen (Rapid) - Final ABG Data ABG results: ABG 05/19/22 15:08 Specimen Type ART Sample Site L Radial pH 7.48 H Bicarbonate Actual 17.9 L Total CO2 19 Base Excess -6 L O2 Saturation 94 L O2 % 94 ABG pCO2 24.2 L ABG pO2 62 L O2 Delivery Device HFNC Radiography Diagnostic Testing: Radiology Impression Echocardiogram 05/19/22 05:55 Interpretation Summary Normal LV size. No regional wall motion abnormalities noted. Left ventricular systolic function is normal. The estimated ejection fraction is 60 %. Contrast injection was performed. Rhythm Strip Rhythm Strip: A-fib Rate: 87 Ectopy: PVC(s) Physical Exam Narrative Seen and examined. Patient on maximum Airvo, with labored breathing. Spontaneously voiding urine. General: Looks sick, dyspnea at rest. Awake. Oriented x3 HEENT: Atraumatic, PERRLA, EOMI, Normocephalic Oral: Oral mucosa moist. On AVAPS Neck: Supple, No JVD, Negative Carotid Bruits Lungs: Air entry diminished in bilateral lung bases. Bilateral coarse crepitations present. Tachypneic. Changed to AVAPS Cardiovascular: A. fib, rate controlled. Normal S1, Normal S2, No murmurs Abdomen: Bowel Sounds Present, Soft, Non Tender, Non-Distended : No renal angle tenderness. No suprapubic tenderness. Extremities: No edema, Capillary Refill Less than 3 Seconds Skin: No rashes, No breakdown Musculoskeletal: No Tenderness to Palpation of Joints or Extremities. ROM full Neurological: Cranial nerves II-XII grossly intact, DTR 2+/4 muscle strength 4/5 at major joints of lower extremities. Psych/Mental Status: Flat affect. Assessment & Plan Assessment/Plan (1) Lobar pneumonia: (2) COVID-19: (3) Atrial fibrillation with rapid ventricular response: (4) Acute hyponatremia: (5) Acute hypokalemia: PLAN: Plan This 26-year-old female being admitted with cough, shortness of breath, low-grade fever, tachycardia, tachypnea and chest x-ray findings history of multilobar pneumonia. 1. Acute hypoxic respiratory failure due to COVID-19 multilobar/multifocal pneumonia complicated with bacterial superinfection, Legionella pneumonia: Lactic acid pending. Patient is being admitted in PCU. COVID-19 orders including rapid antigen, flu antigen PCR and inflammatory markers including D-dimers are ordered. Liver profile ordered. Patient is started on dexamethasone, IV Rocephin and Zithromax. If liver chemistry in acceptable limit, start remdesivir. ID consult. Pneumonia work-up including urinary antigens, MRSA nasal screen and sputum culture and blood culture ordered. If patient gets respiratory failure will consult electrical troubleshooter. 05/19: Liver chemistry shows AST 47 otherwise normal. Inflammatory markers are high including LDH, troponin, D-dimer and fibrinogen. Procalcitonin high 6.79 therefore high risk for worsening of infection, sepsis or septic shock. Currently patient clinical exam, labs and parameters do not suggest sepsis. Beer Maker consult and ID consult reviewed and appreciated. Patient on ceftriaxone and Zithromax which will cover Legionella. Continue dexamethasone and remdesivir. Tocilizumab contraindicated patient has Legionella. Repeat ABG was done 7. on 70% FiO2, 50 L/min Airvo. Overall suggestive of acute respiratory alkalosis. As patient is not acidotic or pH less than 7.34 we will continue Airvo. 05/20: Patient maxed on Airvo therefore changed to AVAPS. Liver chemistry shows increasing ALT AST about 4-5 times baseline. Monitor liver chemistry daily. Mild acute liver injury probably due to remdesivir. Discussed with ID will monitor liver chemistry closely. For now, benefit outweighs risk. 2. A. fib with RVR, new onset probably precipitated COVID-19 infection/pneumonia: Patient is on IV Cardizem drip, increased to 10 mg/h. Mildly elevated troponin. Cycle troponins. TSH tomorrow AM. Serum magnesium and phosphorus. 05/19: Heart rate in 90. Heart rate is controlled. Patient initiated on amiodarone. Patient had digoxin. Titrate down Cardizem. 05/20: Discussed with the corking machine operator on 05/19. Amiodarone changed to oral after completion of IV drip. Titrate down the Cardizem drip. 1 dose of digoxin given patient having low BP, SBP in 90s. Mild hypokalemia and hypophosphatemia, electrolytes getting replaced. 3. Acute gastroenteritis probably due to COVID-19 complicated with hyponatremia, hypokalemia and hypochloremia: IV fluid normal saline. Monitor electrolytes. Diet initiated. 4. Chronic smoker, possibility of COPD: Patient never evaluated for COPD. 5. Diabetes mellitus type 2: Accu-Chek insulin coverage with Humalog sliding scale. A1c tomorrow a.m. Hold metformin. 6. Debility due to arthritis, osteoporosis Total time of the visit including total time spent in counseling or coordination of care, (more than 50% of the total time, spent in obtaining medical information from nurses and other ancillary care providers,explaining to the patient about labs, imaging, diagnosis and management), discussion with consultants ID and electronic news gathering editor, clinical update given to daughter near the bedside review of labs and imaging is 45 minutes. Living will/advanced directive/end of life care: Patient does not have living will or advanced directive. Patient does not have designated power of antenna rigger for health. Her next to kin is her and daughter who is present in the room. After discussion of benefits/risks procedures involved with full code, DNR CC arrest and DNR CC, the patient opted for full code. Patient does want artificial life support including intubation, tube feed, ventilator and/chest compression, central venous catheter, vasopressor and DC shock if needed Total time spent in [id number] encounter in discussion of advanced directive 16 minutes. Charges/Coding Visit Charges Inpatient E&M: 73425 Subs Hosp L3
--- NOTE | 2022-05-20 14:11 | PCM.PN.ID ---
Physical Exam Narrative Feeling a little better, still dyspnea, no fever Const alert and no apparent distress Resp Auscultation: diminished lung sounds Cardio regular rate and regular rhythm GI soft to palpation, non-tender and non-distended Skin no rashes or lesions noted ID ID: Route of nutrition/ use of supplements: [] Nutritional Intake: [] IV Site: [] [place] Catheter: [] Assessment & Plan Assessment/Plan (1) Legionella pneumonia: (2) COVID-19: PLAN: Hypoxic resp failure with covid and legionella. On dex/remdesivir. Reports booster. Will not add Actemra due to legionella. Cont azithro; will stop ceftriaxone. Pulm following. Ordered LFT for AM. Will follow
[2022-05-20 17:05] LABS: Bedside Glucose 192 mg/dL (74-106)
[2022-05-20] MEDS: Atorvastatin Calcium 20 MG Tablet PO (21:05)
[2022-05-20 22:15] LABS: Bedside Glucose 223 mg/dL (74-106)
[2022-05-21] VITALS (38 sets, daily range): BP systolic 86–126; BP diastolic 54–112; PULSE 72–118; RESP 14–35; TEMP 36.6–36.7; O2SAT 85–100
[2022-05-21 05:41] LABS: Absolute Lymphocyte Count 0.59 X10^3/uL (0.83-4.51); Absolute Neutrophil Count 27.2 X10^3/uL (2.0-7.7); Basophil# 0.06 X10^3/uL; Basophil% 0.2 % (0-1); Hematocrit 29.8 % (37-47); Hemoglobin 10.2 g/dL (12.0-15.0); Lymphocyte # 0.59 X10^3/ul (0.83-4.51); Mean Corp Hgb Conc 34.2 g/dL (32-36); Mean Corpuscular Hgb 29.2 pg (27.0-32.0); Mean Corpuscular Volume 85.4 fL (81-99); Mean Platelet Vol. 10.2 fl (6.2-12.0); Monocyte# 1.05 X10^3/uL; Monocyte% 3.6 % (0-10); NRBC Flagged by Analyzer 0 % (0-5); Neutrophil # 27.15 X10^3/uL (2.7-7.7); Neutrophil % 91.9 % (47-70); POSITIVE DIFFERENTIAL YES; Platelet Count 625 K/mm3 (150-450); RBC Distribution Width CV 14.1 % (11.6-14.6); RBC Distribution Width SD 44.1 fl (35.1-43.9); Red Blood Count 3.49 M/mm3 (4.2-5.4); White Blood Count 29.5 K/mm3 (4.4-11.0)
[2022-05-21 05:46] LABS: Differential Indicated SCAN CRITERIA MET
[2022-05-21 06:07] LABS: ALB/GLOB Ratio 0.4 RATIO (0.9-2.4); AST(SGOT) 131 U/L (15-37); Alanine Aminotransfer ALT/SGPT 107 U/L (13-56); Albumin, Serum 1.7 g/dL (3.2-5.0); Alkaline Phosphatase 65 U/L (45-117); Anion Gap 11 (5-15); BUN 15 mg/dL (7-18); BUN/Creat Ratio 31.1 RATIO (10-20); Bilirubin, Direct 0.15 mg/dL (0.00-0.30); Calcium,Total 6.9 mg/dL (8.5-10.1); Chloride 97 mmol/L (98-107); Creatinine, Serum 0.48 mg/dL (0.55-1.02); EST Glomerular Filtration Rate 135 mL/min (>60); Est Glom Filt Rate - Afr Amer 164 mL/min (>60); Estimated Creatinine Clearance 52.81 ml/min; Glucose 207 mg/dL (74-106); Potassium 3.5 mmol/L (3.5-5.1); Protein, Total 5.7 g/dL (6.4-8.2); Sodium Level 130 mmol/L (136-145)
[2022-05-21 06:28] LABS: Differential Comment SCANNED
[2022-05-21] MEDS: Insulin Lispro 100 UNIT/ML INSULN.PEN SC ×4 (06:47→22:15)
--- NOTE | 2022-05-21 07:13 | PN.CC_ITS ---
Assessment & Plan Assessment/Plan (1) Atrial fibrillation with rapid ventricular response: (2) COVID-19: (3) Legionella pneumonia: (4) History of diabetes mellitus: PLAN: Plan RECOMMENDATIONS: 1. Encourage BiPAP as needed and nightly 2. Wean supplemental oxygen as tolerated 3. Cannot exclude need for ICU transfer 4. Defer antibiotics to infectious disease 5. Continue LFTs daily while on Remdesivir 6. Agree with Decadron 7. Aggressive electrolyte supplementation IMPRESSIONS: 1. Acute hypoxic respiratory failure secondary to Legionella pneumonia/COVID-19/probable COPD Patient's respiratory status appears to have somewhat stabilized. Patient is still requiring significant FiO2 to maintain saturations. Some concern for continued tachypnea leading to respiratory muscle fatigue. Will continue to encourage BiPAP as needed to see if this will help with respiratory rate. Stressed to the patient that without BiPAP, intubation will be required with decompensation. Heart rate has been controlled, which does help to situation. Patient is on adequate therapy for Legionella pneumonia. Patient is receiving Decadron and remdesivir. Given Remdesivir, LFTs will be checked. 2. New onset A. fib with RVR Patient appears to have responded well to amiodarone therapy. Very little background information is available from a cardiac standpoint. Patient does have an echocardiogram ordered. Patient appears to be relatively rate controlled at this time. Troponin is slightly elevated, but this is likely secondary to profound hypoxia secondary to problem #1. Patient does have a history of hyperlipidemia, advanced age and diabetes increasing risk for coronary artery disease. No complications to anticoagulation noted 3. Acute gastroenteritis/chronic smoker/diabetes mellitus type 2/osteoporosis/osteoarthritis/advanced age Complicates care, management, recovery and prognosis. Patient is at risk for COPD given smoking history, but unable to confirm at this time. We will need to watch blood sugars closely given need for Decadron secondary to problem #1, but appears to be tolerating. Recommend limiting IV fluids as these has been shown to worsen respiratory failure and COVID-19. Subjective Subjective Patient did okay overnight. Patient states that she feels more comfortable in the chair than in the bed. Patient was attempted on BiPAP yesterday, but states I do not know how I can keep that thing on my face. Patient has remained on Airvo. No epistaxis has been reported. Patient is reporting an increase in a productive cough of brown sputum. Patient denies any current chest pain. Patient feels subjectively that she is improving. Objective Data Objective Data Vital Signs: Vital Signs Temp Pulse Resp BP Pulse Ox O2 Del Method O2 Flow Rate 36.7 C 100 24 H 110/60 98 Airvo 60 05/21/22 04:05 05/21/22 07:00 05/21/22 07:00 05/21/22 07:00 05/21/22 07:00 05/21/22 07:00 05/21/22 07:00 FiO2 93 05/21/22 07:00 Oxygen Flow Rate (L/min) 60 Oxygen Delivery Method Airvo Weight: 67.1 kg Body Mass Index (BMI) 21.5 Intake & Output: Intake and Output for Last 24 Hours 05/19/22 05/20/22 05/21/22 23:59 23:59 23:59 Intake Total 3761.9533 / 4016.9533 1913.0733 / 1918.0733 275.00 / 275.00 Output Total 650 / 770 320 / 320 300 / 300 Balance 3111.9533 / 3246.9533 1593.0733 / 1598.0733 -25.00 / -25.00 Lab / Micro Data Attestation: I reviewed the patient's lab results. Result Diagrams: 05/21/22 04:29 05/21/22 04:29 Labs: Laboratory Results - last 24 hr 05/20/22 05:40: Phosphorus 1.7 L 05/20/22 05:40: Total Bilirubin 0.40, Direct Bilirubin 0.15, AST 233 H, ALT 130 H, Alkaline Phosphatase 55, Total Protein 5.8 L, Albumin 1.7 L, Globulin 4.1 05/20/22 06:52: POC Glucose 219 H 05/20/22 11:02: POC Glucose 240 H 05/20/22 16:31: POC Glucose 192 H 05/20/22 21:04: POC Glucose 223 H 05/21/22 04:29: WBC 29.5 H, RBC 3.49 L, Hgb 10.2 L, Hct 29.8 L, MCV 85.4, MCH 29.2, MCHC 34.2, RDW Std Deviation 44.1 H, RDW Coeff of [place] 14.1, Plt Count 625 H, MPV 10.2, Immature Gran % (Auto) 2.300 H, Neut % (Auto) 91.9 H, Lymph % (Auto) 2.0 L, [place] % (Auto) 3.6, Eos % (Auto) 0.0, Baso % (Auto) 0.2, Absolute Neuts (auto) 27.2 H, Absolute Lymphs (auto) 0.59 L, Nucleated RBC % 0, Differen tial Comment SCANNED 05/21/22 04:29: Sodium 130 L, Potassium 3.5, Chloride 97 L, Carbon Dioxide 22.0, Anion Gap 11, BUN 15, Creatinine 0.48 L, Estim Creat Clear Calc 52.81, Est GFR (MDRD) Af Amer 164, Est GFR (MDRD) Non-Af 135, BUN/Creatinine Ratio 31.1 H, Glucose 207 H, Calcium 6.9 L, Total Bilirubin 0.40, Direct Bilirubin 0.15, AST 131 H, ALT 107 H, Alkaline Phosphatase 65, Total Protein 5.7 L, Albumin 1.7 L, Globulin 4.0, Albumin/Globulin Ratio 0.4 L Micro: Microbiology 05/18/22 19:00 Blood Culture (Wb) - Anticubital Right Blood Culture - Prelim inary No growth in 48 hours. 05/18/22 21:20 Urine, Clean Catch Streptococcus pneumoniae Antigen (M - Final 05/18/22 21:20 Urine, Clean Catch Legionella Antigen - Final Legionella Antigen 05/18/22 18:37 Nasal Secretion SARS-CoV-2 & FLU Antigen (Rapid) - Final Rhythm Strip Rhythm Strip: A-fib Rate: 87 Ectopy: PVC(s) Physical Exam Const alert, oriented x3 and no apparent distress Constitutional Narrative: No conversational dyspnea noted. On Airvo General Appearance: Negative for in distress or ill appearing HEENT normocephalic and head/scalp atraumatic Eyes PERRL and EOMs intact bilaterally Neck full ROM Chest inspection of chest normal Resp no use of accessory muscles Auscultation: wheezes and diminished lung sounds; Negative for rales or rhonchi Cardio regular rate, S1 normal heart sound, S2 normal heart sound, no murmurs, no rub and no gallops Rhythm: abnormal rhythm irregularly irregular GI normal to inspection, nondistended, normoactive bowel sounds Extremity General Extremity: Negative for clubbing or edema Skin no rashes or lesions noted Neuro oriented x3, CN's II-XII intact bilaterally, moves all extremities and no focal motor deficits Psych cooperative and affect normal Charges/Coding Visit Charges Inpatient E&M: 66919 Subs Hosp L3
[2022-05-21 07:20] LABS: Bedside Glucose 215 mg/dL (74-106)
[2022-05-21] MEDS: Amiodarone 200 MG Tablet PO ×3 (08:49→17:55)
[2022-05-21] MEDS: guaiFENesin 1,200 MG Tablet 1200 MG PO ×2 (08:49→22:05)
[2022-05-21] MEDS: Acetaminophen 325 MG Tablet 650 MG PO (08:50)
[2022-05-21] MEDS: APIXABAN 5 MG TABLET PO ×2 (08:50→22:05)
[2022-05-21] MEDS: dexAMETHasone 10 MG/ML Vial 6 MG IV (08:51)
[2022-05-21] MEDS: Pantoprazole Sodium 40 MG Tablet PO (08:52)
[2022-05-21] MEDS: 0.9% Saline Lock 10 ML Syringe IV (08:53)
[2022-05-21] MEDS: Potassium Chloride Oral Tablet 20 MEQ 40 MEQ PO (08:53)
[2022-05-21 12:11] LABS: Bedside Glucose 257 mg/dL (74-106)
--- NOTE | 2022-05-21 14:37 | PN.HOSP_ITS ---
Subjective Subjective Follow-up for acute hypoxic respiratory failure secondary to bilateral COVID-19 pneumonia with superimposed bacterial infection. Objective Data Objective Data Vital Signs: Vital Signs Temp Pulse Resp BP Pulse Ox O2 Del Method O2 Flow Rate 98.0 F 88 21 H 102/63 95 Airvo 60 05/21/22 04:05 05/21/22 12:27 05/21/22 12:27 05/21/22 12:27 05/21/22 12:27 05/21/22 13:30 05/21/22 08:50 FiO2 60 05/21/22 11:20 Oxygen Flow Rate (L/min) 60 Oxygen Delivery Method Airvo Weight: 147 lb 14.883 oz Body Mass Index (BMI) 21.5 Intake & Output: Intake and Output for Last 24 Hours 05/19/22 05/20/22 05/21/22 23:59 23:59 23:59 Intake Total 3761.9533 / 4016.9533 1913.0733 / 1918.0733 1092.17 / 1092.17 Output Total 650 / 770 320 / 320 300 / 300 Balance 3111.9533 / 3246.9533 1593.0733 / 1598.0733 792.17 / 792.17 Lab / Micro Data Result Diagrams: 05/21/22 04:29 05/21/22 04:29 Labs: Laboratory Results - last 24 hr 05/20/22 16:31: POC Glucose 192 H 05/20/22 21:04: POC Glucose 223 H 05/21/22 04:29: WBC 29.5 H, RBC 3.49 L, Hgb 10.2 L, Hct 29.8 L, MCV 85.4, MCH 29.2, MCHC 34.2, RDW Std Deviation 44.1 H, RDW Coeff of Palak 14.1, Plt Count 625 H, MPV 10.2, Immature Gran % (Auto) 2.300 H, Neut % (Auto) 91.9 H, Lymph % (Auto) 2.0 L, [place] % (Auto) 3.6, Eos % (Auto) 0.0, Baso % (Auto) 0.2, Absolute Neuts (auto) 27.2 H, Absolute Lymphs (auto) 0.59 L, Nucleated RBC % 0, Differential Comment SCANNED 05/21/22 04:29: Sodium 130 L, Potassium 3.5, Chloride 97 L, Carbon Dioxide 22.0, Anion Gap 11, BUN 15, Creatinine 0.48 L, Estim Creat Clear Calc 52.81, Est GFR (MDRD) Af Amer 164, Est GFR (MDRD) Non-Af 135, BUN/Creatinine Ratio 31.1 H, Glucose 207 H, Calcium 6.9 L, Total Bilirubin 0.40, Direct Bilirubin 0.15, AST 131 H, ALT 107 H, Alkaline Phosphatase 65, Total Protein 5.7 L, Albumin 1.7 L, Globulin 4.0, Albumin/Globulin Ratio 0.4 L 05/21/22 06:45: POC Glucose 215 H 05/21/22 11:10: POC Glucose 257 H Micro: Microbiology 05/18/22 18:10 Blood Culture (Wb) - Anticubital Right Blood Culture - Prelim inary No growth in 48 hours. 05/18/22 19:00 Blood Culture (Wb) - Anticubital Right Blood Culture - Preliminary No growth in 48 hours. 05/18/22 21:20 Urine, Clean Catch Streptococcus pneumoniae Antigen (M - Final 05/18/22 21:20 Urine, Clean Catch Legionella Antigen - Final Legionella Antigen 05/18/22 18:37 Nasal Secretion SARS-CoV-2 & FLU Antigen (Rapid) - Final Rhythm Strip Rhythm Strip: A-fib Rate: 87 Ectopy: PVC(s) Physical Exam Narrative Seen and examined. Patient could not tolerate BiPAP states he feels very restless and claustrophobic. Discussed the importance of BiPAP for better ventilation and decrease respiratory effort/fatigue otherwise she might need intubation. Tried to convince the patient and her daughter near the bedside. Physical exam General: Mild improvement in respiratory status. Awake. Oriented x3 HEENT: Atraumatic, PERRLA, EOMI, Normocephalic Oral: Oral mucosa moist. On AVAPS Neck: Supple, No JVD, Negative Carotid Bruits Lungs: Air entry diminished in bilateral lung bases. Bilateral coarse crepitations present. On Airvo. Cardiovascular: A. fib, rate is better controlled. Normal S1, Normal S2, No murmurs Abdomen: Bowel Sounds Present, Soft, Non Tender, Non-Distended : No renal angle tenderness. No suprapubic tenderness. Extremities: No edema, Capillary Refill Less than 3 Seconds Skin: No rashes, No breakdown Musculoskeletal: No Tenderness to Palpation of Joints or Extremities. ROM full Neurological: Cranial nerves II-XII grossly intact, DTR 2+/4, muscle strength 4/5 at major joints of lower extremities. Psych/Mental Status: Flat affect. Assessment & Plan Assessment/Plan (1) Lobar pneumonia: (2) COVID-19: (3) Atrial fibrillation with rapid ventricular response: (4) Acute hyponatremia: (5) Acute hypokalemia: PLAN: Plan This 26-year-old female being admitted with cough, shortness of breath, low- grade fever, tachycardia, tachypnea and chest x-ray findings history of multilobar pneumonia. 1. Acute hypoxic respiratory failure due to COVID-19 multilobar/multifocal pneumonia complicated with bacterial superinfection, Legionella pneumonia: Lactic acid pending. Patient is being admitted in PCU. COVID-19 orders including rapid antigen, flu antigen PCR and inflammatory markers including D- dimers are ordered. Liver profile ordered. Patient is started on dexamethasone, IV Rocephin and Zithromax. If liver chemistry in acceptable limit, start remdesivir. ID consult. Pneumonia work-up including urinary antigens, MRSA nasal screen and sputum culture and blood culture ordered. If patient gets respiratory failure will consult vending route driver. 05/19: Liver chemistry shows AST 47 otherwise normal. Inflammatory markers are high including LDH, troponin, D-dimer and fibrinogen. Procalcitonin high 6.79 therefore high risk for worsening of infection, sepsis or septic shock. Currently patient clinical exam, labs and parameters do not suggest sepsis. In tensivist consult and ID consult reviewed and appreciated. Patient on ceftriaxone and Zithromax which will cover Legionella. Continue dexamethasone and remdesivir. Tocilizumab contraindicated patient has Legionella. Repeat ABG was done 7.48 on 70% FiO2, 50 L/min Airvo. Overall suggestive of acute respiratory alkalosis. As patient is not acidotic or pH less than 7.34 we will continue Airvo. 05/20: Patient maxed on Airvo therefore changed to AVAPS. Liver chemistry shows increasing ALT AST about 4-5 times baseline. Monitor liver chemistry daily. Mild acute liver injury probably due to remdesivir. Discussed with ID will monitor liver chemistry closely. For now, benefit outweighs risk. 05/21: Patient refusing for BiPAP/AVAPS. Discussed in detail with her daughter and the patient regarding the importance to prevent intubation/ventilator. Liver chemistry shows improvement in ALT and AST as compared to yesterday. Handyperson note reviewed and appreciated. 2. A. fib with RVR, new onset probably precipitated COVID-19 infection/pneumonia: Patient is on IV Cardizem drip, increased to 10 mg/h. Mildly elevated troponin. Cycle troponins. TSH tomorrow AM. Serum magnesium and phosphorus. 05/19: Heart rate in 90. Heart rate is controlled. Patient initiated on amiodarone. Patient had digoxin. Titrate down Cardizem. 05/20: Discussed with the tetryl nitrator operator on 05/19. Amiodarone changed to oral after completion of IV drip. Titrate down the Cardizem drip. 1 dose of digoxin given patient having low BP, SBP in 90s. Mild hypokalemia and hypophosphatemia, electrolytes getting replaced. 05/21: Heart rate is better controlled. Try to taper off Cardizem. 3. Acute gastroenteritis probably due to COVID-19 complicated with hyponatremia, hypokalemia and hypochloremia: IV fluid normal saline. Monitor electrolytes. Diet initiated. 4. Chronic smoker, possibility of COPD: Patient never evaluated for COPD. 5. Diabetes mellitus type 2: Accu-Chek insulin coverage with Humalog sliding scale. A1c tomorrow a.m. Hold metformin. 05/21: Glucose in 200s. A1c 5.9%. Hyperglycemia due to dexamethasone, corticosteroid. 6. Debility due to arthritis, osteoporosis Total time of the visit including total time spent in counseling or coordination of care, (more than 50% of the total time, spent in obtaining medical information from nurses and other ancillary care providers,explaining to the patient about labs, imaging, diagnosis and management), discussion with consultants ID and director e learning, clinical update given to daughter near the bedside review of labs and imaging is 40 minutes. Living will/advanced directive/end of life care: Patient does not have living will or advanced directive. Patient does not have designated power of attorney at law for health. Her next to kin is her and daughter who is present in the room. After discussion of benefits/risks procedures involved with full code, DNR CC arrest and DNR CC, the patient opted for full code. Patient does want artificial life support including intubation, tube feed, ventilator and/chest compression, central venous catheter, vasopressor and DC shock if needed Total time spent in [id number] encounter in discussion of advanced directive 16 minutes. Microbiology Past 72 Hours 05/18/22 18:10 Blood Culture (Wb) - Anticubital Right Blood Culture - Preliminary No growth in 48 hours. 05/18/22 19:00 Blood Culture (Wb) - Anticubital Right Blood Culture - Preliminary No growth in 48 hours. 05/18/22 21:20 Urine, Clean Catch Streptococcus pneumoniae Antigen (M - Final 05/18/22 21:20 Urine, Clean Catch Legionella Antigen - Final Legionella Antigen 05/18/22 18:37 Nasal Secretion SARS-CoV-2 & FLU Antigen (Rapid) - Final Laboratory Results 05/20/22 16:31: POC Glucose 192 H 05/20/22 21:04: POC Glucose 223 H 05/21/22 04:29: WBC 29.5 H, RBC 3.49 L, Hgb 10.2 L, Hct 29.8 L, MCV 85.4, MCH 29.2, MCHC 34.2, RDW Std Deviation 44.1 H, RDW Coeff of Palak 14.1, Plt Count 625 H, MPV 10.2, Immature Gran % (Auto) 2.300 H, Neut % (Auto) 91.9 H, Lymph % (Auto) 2.0 L, [place] % (Auto) 3.6, Eos % (Auto) 0.0, Baso % (Auto) 0.2, Absolute Neuts (auto) 27.2 H, Absolute Lymphs (auto) 0.59 L, Nucleated RBC % 0, Dif ferential Comment SCANNED 05/21/22 04:29: Sodium 130 L, Potassium 3.5, Chloride 97 L, Carbon Dioxide 22.0, Anion Gap 11, BUN 15, Creatinine 0.48 L, Estim Creat Clear Calc 52.81, Est GFR (MDRD) Af Amer 164, Est GFR (MDRD) Non-Af 135, BUN/Creatinine Ratio 31.1 H, Glucose 207 H, Calcium 6.9 L, Total Bilirubin 0.40, Direct Bilirubin 0.15, AST 131 H, ALT 107 H, Alkaline Phosphatase 65, Total Protein 5.7 L, Albumin 1.7 L, Globulin 4.0, Albumin/Globulin Ratio 0.4 L 05/21/22 06:45: POC Glucose 215 H 05/21/22 11:10: POC Glucose 257 H Charges/Coding Visit Charges Inpatient E&M: 99976 Subs Hosp L3
--- NOTE | 2022-05-21 16:03 | EKG12_ITS ---
Test Reason : rythm change Blood Pressure : / mmHG Vent. Rate : 088 BPM Atrial Rate : 000 BPM P-R Int : 000 ms QRS Dur : 082 ms QT Int : 396 ms P-R-T Axes : 000 058 067 degrees QTc Int : 479 ms Atrial fibrillation Abnormal ECG When compared with ECG of 19-MAY-2022 14:51, Nonspecific T wave abnormality no longer evident in Lateral leads Confirmed by DUDLEY DAY, AMADEO ([id number]), tape editor LAZARUS RATLIFF ([id number]) on 05/28/2022 9:44:00 AM Referred By: Minesh Confirmed By:AMADEO BUCKNER MD
[2022-05-21 16:16] LABS: Bedside Glucose 255 mg/dL (74-106)
[2022-05-21] MEDS: Atorvastatin Calcium 20 MG Tablet PO (22:05)
[2022-05-21] MEDS: LORazepam 1 MG Tablet PO (22:05)
[2022-05-21 22:45] LABS: Bedside Glucose 256 mg/dL (74-106)
[2022-05-22] VITALS (25 sets, daily range): BP systolic 92–128; BP diastolic 54–77; PULSE 71–115; RESP 14–35; TEMP 36.1–36.7; O2SAT 93–100
[2022-05-22] MEDS: Insulin Lispro 100 UNIT/ML INSULN.PEN SC ×4 (06:30→20:54)
[2022-05-22 06:37] LABS: ALB/GLOB Ratio 0.5 RATIO (0.9-2.4); AST(SGOT) 69 U/L (15-37); Alanine Aminotransfer ALT/SGPT 85 U/L (13-56); Albumin, Serum 1.7 g/dL (3.2-5.0); Alkaline Phosphatase 74 U/L (45-117); Anion Gap 8 (5-15); BUN 16 mg/dL (7-18); BUN/Creat Ratio 40.8 RATIO (10-20); Chloride 99 mmol/L (98-107); Creatinine, Serum 0.39 mg/dL (0.55-1.02); EST Glomerular Filtration Rate 172 mL/min (>60); Est Glom Filt Rate - Afr Amer 208 mL/min (>60); Estimated Creatinine Clearance 52.81 ml/min; Globulin 3.7 g/dL (2.2-4.2); Glucose 257 mg/dL (74-106); Protein, Total 5.4 g/dL (6.4-8.2); Sodium Level 131 mmol/L (136-145)
[2022-05-22 06:55] LABS: Bedside Glucose 251 mg/dL (74-106)
--- NOTE | 2022-05-22 07:34 | PN.CC_ITS ---
Assessment & Plan Assessment/Plan (1) Atrial fibrillation with rapid ventricular response: (2) COVID-19: (3) Legionella pneumonia: (4) History of diabetes mellitus: PLAN: Plan RECOMMENDATIONS: 1. Encourage BiPAP as needed and nightly 2. Wean supplemental oxygen as tolerated 3. Doubt need for ICU transfer 4. Defer antibiotics to infectious disease 5. Continue LFTs daily while on Remdesivir 6. Agree with Decadron 7. Aggressive electrolyte supplementation IMPRESSIONS: 1. Acute hypoxic respiratory failure secondary to Legionella pneumonia/COVID-19/probable COPD Patient's respiratory status appears to have somewhat stabilized. Patient is still requiring significant FiO2 to maintain saturations. Some concern for continued tachypnea leading to respiratory muscle fatigue. Patient did tolerate BiPAP overnight with improvement in oxygenation today. Will continue to encourage BiPAP as needed to see if this will help with respiratory rate. Stressed to the patient that without BiPAP, intubation will be required with decompensation. Heart rate has been controlled, which does help to situation. Patient is on adequate therapy for Legionella pneumonia. Clinical suspicion for improvement secondary to treatment of Legionella pneumonia more than COVID-19 or suspected COPD. Patient is receiving Decadron and remdesivir. Given Remdesivir, LFTs will be checked daily. 2. New onset A. fib with RVR Patient appears to have responded well to amiodarone therapy. Very little background information is available from a cardiac standpoint. Patient does have an echocardiogram ordered. Patient appears to be relatively rate controlled at this time. Troponin is slightly elevated, but this is likely secondary to profound hypoxia secondary to problem #1. Patient does have a history of hyperlipidemia, advanced age and diabetes increasing risk for coronary artery disease. No complications to anticoagulation noted. Patient may require cardiac work-up once acute condition is resolved. 3. Acute gastroenteritis/chronic smoker/diabetes mellitus type 2/oste oporosis/osteoarthritis/advanced age Complicates care, management, recovery and prognosis. Patient is at risk for COPD given smoking history, but unable to confirm at this time. We will need to watch blood sugars closely given need for Decadron secondary to problem #1, but appears to be tolerating. Recommend limiting IV fluids as these has been shown to worsen respiratory failure and COVID-19. Subjective Subjective Patient subjectively feels unchanged compared to yesterday. Patient does not have recollection of wearing BiPAP overnight, but this was documented. Patient is not reporting any cough, fever or chills. No pain is reported. Objective Data Objective Data Vital Signs: Vital Signs Temp Pulse Resp BP Pulse Ox O2 Del Method O2 Flow Rate 36.7 C 74 25 H 96/54 L 93 Airvo 50 05/22/22 00:00 05/22/22 07:00 05/22/22 07:00 05/22/22 07:00 05/22/22 07:00 05/22/22 07:00 05/22/22 07:00 FiO2 59 05/22/22 07:00 Oxygen Flow Rate (L/min) 50 Oxygen Delivery Method Airvo Weight: 66.7 kg Body Mass Index (BMI) 21.5 Intake & Output: Intake and Output for Last 24 Hours 05/20/22 05/21/22 05/22/22 23:59 23:59 23:59 Intake Total 1913.0733 / 1918.0733 1466.50 / 1670.00 473.5 / 473.5 Output Total 320 / 320 300 / 300 250 / 250 Balance 1593.0733 / 1598.0733 1166.50 / 1370.00 223.5 / 223.5 Lab / Micro Data Attestation: I reviewed the patient's lab results. Result Diagrams: 05/21/22 04:29 05/22/22 05:45 Labs: Laboratory Results - last 24 hr 05/21/22 11:10: POC Glucose 257 H 05/21/22 15:37: POC Glucose 255 H 05/21/22 22:14: POC Glucose 256 H 05/22/22 05:45: Sodium 131 L, Potassium 4.0, Chloride 99, Carbon Dioxide 24.0, Anion Gap 8, BUN 16, Creatinine 0.39 L, Estim Creat Clear Calc 52.81, Est GFR (MDRD) Af Amer 208, Est GFR (MDRD) Non-Af 172, BUN/Creatinine Ratio 40.8 H, Glucose 257 H, Calcium 7.0 L, Total Bilirubin 0.50, AST 69 H, ALT 85 H, Alkaline Phosphatase 74, Total Protein 5.4 L, Albumin 1.7 L, Globulin 3.7, Albumin/Globulin Ratio 0.5 L 05/22/22 06:28: POC Glucose 251 H Micro: Microbiology 05/18/22 18:10 Blood Culture (Wb) - Anticubital Right Blood Culture - Preliminary No growth in 48 hours. 05/18/22 19:00 Blood Culture (Wb) - Anticubital Right Blood Culture - Preliminary No growth in 48 hours. 05/18/22 21:20 Urine, Clean Catch Streptococcus pneumoniae Antigen (M - Final 05/18/22 21:20 Urine, Clean Catch Legionella Antigen - Final Legionella Antigen 05/18/22 18:37 Nasal Secretion SARS-CoV-2 & FLU Antigen (Rapid) - Final Rhythm Strip Rhythm Strip: A-fib Rate: 87 Ectopy: PVC(s) Physical Exam Const alert, oriented x3 and no apparent distress Constitutional Narrative: Mild conversational dyspnea noted. On Airvo General Appearance: Negative for in distress HEENT normocephalic and head/scalp atraumatic Eyes PERRL and EOMs intact bilaterally Eyes Narrative: Slight scleral injection Neck full ROM Chest inspection of chest normal Resp no use of accessory muscles Effort and Inspection: tachypneic, labored and uses accessory muscles Auscultation: wheezes and diminished lung sounds; Negative for rales or rhonchi Cardio regular rate, S1 normal heart sound, S2 normal heart sound, no murmurs, no rub and no gallops Rate: tachycardic Rhythm: abnormal rhythm irregularly irregular GI normal to inspection, nondistended, normoactive bowel sounds Extremity General Extremity: Negative for clubbing or edema Skin no rashes or lesions noted Neuro oriented x3, CN's II-XII intact bilaterally, moves all extremities and no focal motor deficits Psych cooperative and affect normal Charges/Coding Visit Charges Inpatient E&M: 94400 Subs Hosp L3
[2022-05-22] MEDS: Amiodarone 200 MG Tablet PO ×3 (08:31→18:21)
[2022-05-22] MEDS: APIXABAN 5 MG TABLET PO ×2 (08:31→20:53)
[2022-05-22] MEDS: guaiFENesin 1,200 MG Tablet 1200 MG PO ×2 (08:31→20:54)
[2022-05-22] MEDS: Potassium Chloride Oral Tablet 20 MEQ 40 MEQ PO (08:31)
[2022-05-22] MEDS: 0.9% Saline Lock 10 ML Syringe IV ×2 (08:31→20:52)
[2022-05-22] MEDS: dexAMETHasone 10 MG/ML Vial 6 MG IV (08:31)
[2022-05-22] MEDS: Pantoprazole Sodium 40 MG Tablet PO (08:31)
[2022-05-22] MEDS: Acetaminophen 325 MG Tablet 650 MG PO (08:32)
[2022-05-22] MEDS: dilTIAZem CD 120 MG Capsule PO (10:53)
[2022-05-22] MEDS: Sodium Chloride 0.65% 1 SPRAY SPRAY.BTL NASAL ×2 (10:54→20:54)
[2022-05-22] MEDS: Ipratropium/Albuterol Sulfate 3 ML AMPUL.NEB INHALATION (11:03)
[2022-05-22 11:41] LABS: Bedside Glucose 331 mg/dL (74-106)
--- NOTE | 2022-05-22 12:46 | PN.HOSP_ITS ---
Subjective Subjective Follow-up for acute hypoxic respiratory failure secondary to bilateral pneumonia Patient was given Ativan 1 mg p.o. last evening and patient wore BiPAP, confirmed with the nursing staff. No fever or chills. Overall respiratory status slightly better although patient does not feel change subjectively. Objective Data Objective Data Vital Signs: Vital Signs Temp Pulse Resp BP Pulse Ox O2 Del Method O2 Flow Rate 97 F L 85 24 H 98/59 L 96 Airvo 50 05/22/22 08:41 05/22/22 11:22 05/22/22 11:03 05/22/22 11:00 05/22/22 11:00 05/22/22 11:00 05/22/22 11:00 FiO2 49 05/22/22 11:00 Oxygen Flow Rate (L/min) 50 Oxygen Delivery Method Airvo Weight: 147 lb 0.773 oz Body Mass Index (BMI) 21.5 Intake & Output: Intake and Output for Last 24 Hours 05/20/22 05/21/22 05/22/22 23:59 23:59 23:59 Intake Total 1913.0733 / 1918.0733 1466.50 / 1670.00 1231.91 / 1231.91 Output Total 320 / 320 300 / 300 750 / 750 Balance 1593.0733 / 1598.0733 1166.50 / 1370.00 481.91 / 481.91 Lab / Micro Data Result Diagrams: 05/21/22 04:29 05/22/22 05:45 Labs: Laboratory Results - last 24 hr 05/21/22 15:37: POC Glucose 255 H 05/21/22 22:14: POC Glucose 256 H 05/22/22 05:45: Sodium 131 L, Potassium 4.0, Chloride 99, Carbon Dioxide 24.0, Anion Gap 8, BUN 16, Creatinine 0.39 L, Estim Creat Clear Calc 52.81, Est GFR (MDRD) Af Amer 208, Est GFR (MDRD) Non-Af 172, BUN/Creatinine Ratio 40.8 H, Glucose 257 H, Calcium 7.0 L, Total Bilirubin 0.50, AST 69 H, ALT 85 H, Alkaline Phosphatase 74, Total Protein 5.4 L, Albumin 1.7 L, Globulin 3.7, Albumin/Globulin Ratio 0.5 L 05/22/22 06:28: POC Glucose 251 H 05/22/22 10:52: POC Glucose 331 H Micro: Microbiology 05/18/22 18:10 Blood Culture (Wb) - Anticubital Right Blood Culture - Preliminary No growth in 48 hours. 05/18/22 19:00 Blood Culture (Wb) - Anticubital Right Blood Culture - Preliminary No growth in 48 hours. 05/18/22 21:20 Urine, Clean Catch Streptococcus pneumoniae Antigen (M - Fin al 05/18/22 21:20 Urine, Clean Catch Legionella Antigen - Final Legionella Antigen 05/18/22 18:37 Nasal Secretion SARS-CoV-2 & FLU Antigen (Rapid) - Final Rhythm Strip Rhythm Strip: A-fib Rate: 87 Ectopy: PVC(s) Physical Exam Narrative Seen and examined. On Airvo. Physical exam General: Alert, awake. Oriented x3. Mild labored breathing. HEENT: Atraumatic, PERRLA, EOMI, Normocephalic Oral: Oral mucosa moist. On AVAPS Neck: Supple, No JVD, Negative Carotid Bruits Lungs: Air entry diminished in bilateral lung bases. Bilateral coarse crepitations present, improving. On Airvo. Cardiovascular: A. fib, rate is better controlled. Normal S1, Normal S2, No murmurs Abdomen: Bowel Sounds Present, Soft, Non Tender, Non-Distended : No renal angle tenderness. No suprapubic tenderness. Extremities: No edema, Capillary Refill Less than 3 Seconds Skin: No rashes, No breakdown Musculoskeletal: No Tenderness to Palpation of Joints or Extremities. ROM full Neurological: Cranial nerves II-XII grossly intact, DTR 2+/4, muscle strength 4/5 at major joints of lower extremities. Psych/Mental Status: Flat affect. Assessment & Plan Assessment/Plan (1) Lobar pneumonia: (2) COVID-19: (3) Atrial fibrillation with rapid ventricular response: (4) Acute hyponatremia: (5) Acute hypokalemia: PLAN: Plan This 26-year-old female being admitted with cough, shortness of breath, low-grade fever, tachycardia, tachypnea and chest x-ray findings history of multilobar pneumonia. 1. Acute hypoxic respiratory failure due to COVID-19 multilobar/multifocal pneumonia complicated with bacterial superinfection, Legionella pneumonia: Lactic acid pending. Patient is being admitted in PCU. COVID-19 orders including rapid antigen, flu antigen PCR and inflammatory markers including D- dimers are ordered. Liver profile ordered. Patient is started on dexamethasone, IV Rocephin and Zithromax. If liver chemistry in acceptable limit, start remdesivir. ID consult. Pneumonia work-up including urinary antigens, MRSA nasal screen and sputum culture and blood culture ordered. If patient gets respiratory failure will consult admissions manager rn. 05/19: Liver chemistry shows AST 47 otherwise normal. Inflammatory markers are high including LDH, troponin, D-dimer and fibrinogen. Procalcitonin high 6.79 therefore high risk for worsening of infection, sepsis or septic shock. Currently patient clinical exam, labs and parameters do not suggest sepsis. [employer] Attendant consult and ID consult reviewed and appreciated. Patient on ceftriaxone and Zithromax which will cover Legionella. Continue dexamethasone and remdesivir. Tocilizumab contraindicated patient has Legionella. Repeat ABG was done 7.48 on 70% FiO2, 50 L/min Airvo. Overall suggestive of acute respiratory alkalosis. As patient is not acidotic or pH less than 7.34 we will continue Airvo. 05/20: Patient maxed on Airvo therefore changed to AVAPS. Liver chemistry shows increasing ALT AST about 4-5 times baseline. Monitor liver chemistry daily. Mild acute liver injury probably due to remdesivir. Discussed with ID will [facility] liver chemistry closely. For now, benefit outweighs risk. 05/21: Patient refusing for BiPAP/AVAPS. Discussed in detail with her daughter and the patient regarding the importance to prevent intubation/ventilator. Liver chemistry shows improvement in ALT and AST as compared to yesterday. [employer] Attendant note reviewed and appreciated. 05/22: Liver chemistry AST 69, ALT 85 showing improving trend. Continue remdesivir to complete full course. Patient on IV dexamethasone. Blood cultures negative for 48 hours Microbiology Past 72 Hours 05/18/22 18:10 Blood Culture (Wb) - Anticubital Right Blood Culture - Preliminary No growth in 48 hours. 05/18/22 19:00 Blood Culture (Wb) - Anticubital Right Blood Culture - Preliminary No growth in 48 hours. 05/18/22 21:20 Urine, Clean Catch Streptococcus pneumoniae Antigen (M - Final 05/18/22 21:20 Urine, Clean Catch Legionella Antigen - Final Legionella Antigen 2. A. fib with RVR, new onset probably precipitated COVID-19 i nfection/pneumonia: Patient is on IV Cardizem drip, increased to 10 mg/h. Mildly elevated troponin. Cycle troponins. TSH tomorrow AM. Serum magnesium and phosphorus. 05/19: Heart rate in 90. Heart rate is controlled. Patient initiated on amiodarone. Patient had digoxin. Titrate down Cardizem. 05/20: Discussed with the wholesale account executive on 05/19. Amiodarone changed to oral after completion of IV drip. Titrate down the Cardizem drip. 1 dose of digoxin given patient having low BP, SBP in 90s. Mild hypokalemia and hypophosphatemia, electrolytes getting replaced. 05/21: Heart rate is better controlled. Try to taper off Cardizem. 05/22: Cardizem drip changed to Cardizem CD 120 mg twice daily. Wean off Cardizem drip. 3. Acute gastroenteritis probably due to COVID-19 complicated with hyponatremia , hypokalemia and hypochloremia: IV fluid normal saline. Monitor electrolytes. Diet initiated. . Stressful: Acute gastroenteritis resolved. Monitor electrolytes 4. Chronic smoker, possibility of COPD: Patient never evaluated for COPD. 5. Diabetes mellitus type 2: Accu-Chek insulin coverage with Humalog sliding scale. A1c tomorrow a.m. Hold metformin. 05/21: Glucose in 200s. A1c 5.9%. Hyperglycemia due to dexamethasone, corticosteroid. 05/22: Lantus 10 subcutaneous daily added to cover for hyperglycemia due to steroid 6. Debility due to arthritis, osteoporosis Total time of the visit including total time spent in counseling or coordination of care, (more than 50% of the total time, spent in obtaining medical information from nurses and other ancillary care providers,explaining to the patient about labs, imaging, diagnosis and management), discussion with consultants ID and accounting manager controller, clinical update given to daughter near the bedside review of labs and imaging is 40 minutes. Living will/advanced directive/end of life care: Patient does not have living will or advanced directive. Patient does not have designated power of district attorney for health. Her next to kin is her and daughter who is present in the room. After discussion of benefits/risks procedures involved with full code, DNR CC arrest and DNR CC, the patient opted for full code. Patient does want artificial life support including intubation, tube feed, ventilator and/chest compression, central venous catheter, vasopressor and DC shock if needed Total time spent in [id number] encounter in discussion of advanced directive 16 minutes. Laboratory Results 05/21/22 15:37: POC Glucose 255 H 05/21/22 22:14: POC Glucose 256 H 05/22/22 05:45: Sodium 131 L, Potassium 4.0, Chloride 99, Carbon Dioxide 24.0, Anion Gap 8, BUN 16, Creatinine 0.39 L, Estim Creat Clear Calc 52.81, Est GFR (MDRD) Af Amer 208, Est GFR (MDRD) Non-Af 172, BUN/Creatinine Ratio 40.8 H, Glucose 257 H, Calcium 7.0 L, Total Bilirubin 0.50, AST 69 H, ALT 85 H, Alkaline Phosphatase 74, Total Protein 5.4 L, Albumin 1.7 L, Globulin 3.7, Albumin/Globulin Ratio 0.5 L 05/22/22 06:28: POC Glucose 251 H 05/22/22 10:52: POC Glucose 331 H Charges/Coding Visit Charges Inpatient E&M: 30652 Subs Hosp L3
[2022-05-22] MEDS: Insulin Glargine-YFGN 100 UNIT/ML Pen 10 UNIT SC (15:20)
--- NOTE | 2022-05-22 18:01 | EKG12_ITS ---
Test Reason : RYTHM CHANGE Blood Pressure : / mmHG Vent. Rate : 115 BPM Atrial Rate : 000 BPM P-R Int : 000 ms QRS Dur : 086 ms QT Int : 344 ms P-R-T Axes : 000 058 072 degrees QTc Int : 475 ms Atrial fibrillation with rapid ventricular response Abnormal ECG When compared with ECG of 22-MAY-2022 19:25, MANUAL COMPARISON REQUIRED, DATA IS UNCONFIRMED Confirmed by DUDLEY DAY, AMADEO ([id number]), continuity editor MARIA C WILKES ([id number]) on 05/27/2022 9:53:03 AM Referred By: ADALID Confirmed By:AMADEO BUCKNER MD
[2022-05-22 18:56] LABS: Bedside Glucose 316 mg/dL (74-106)
[2022-05-22] MEDS: Atorvastatin Calcium 20 MG Tablet PO (20:53)
[2022-05-22 21:46] LABS: Bedside Glucose 275 mg/dL (74-106)
[2022-05-22] MEDS: LORazepam 0.5 MG Tablet PO (22:28)
[2022-05-23] VITALS (23 sets, daily range): BP systolic 106–138; BP diastolic 62–86; PULSE 84–124; RESP 12–34; TEMP 36.2–36.9; O2SAT 90–98
[2022-05-23 04:31] LABS: Absolute Neutrophil Count 25.3 X10^3/uL (2.0-7.7); Basophil# 0.09 X10^3/uL; Basophil% 0.3 % (0-1); Eosinophil# 0.01 X10^3/uL; Hemoglobin 9.8 g/dL (12.0-15.0); Lymphocyte % 2.9 % (19-41); Mean Corp Hgb Conc 32.7 g/dL (32-36); Mean Corpuscular Hgb 29.5 pg (27.0-32.0); Mean Corpuscular Volume 90.4 fL (81-99); Mean Platelet Vol. 9.9 fl (6.2-12.0); Monocyte# 1.04 X10^3/uL; Monocyte% 3.7 % (0-10); NRBC Flagged by Analyzer 0 % (0-5); Neutrophil # 25.26 X10^3/uL (2.7-7.7); Neutrophil % 90.2 % (47-70); POSITIVE DIFFERENTIAL YES; Platelet Count 613 K/mm3 (150-450); RBC Distribution Width CV 15.2 % (11.6-14.6); RBC Distribution Width SD 50.3 fl (35.1-43.9); Red Blood Count 3.32 M/mm3 (4.2-5.4)
[2022-05-23 04:33] LABS: Differential Indicated SCAN CRITERIA MET
[2022-05-23 04:57] LABS: Phosphorus 1.4 mg/dL (2.5-4.9)
[2022-05-23 05:10] LABS: Differential Comment SCANNED
[2022-05-23 05:13] LABS: ALB/GLOB Ratio 0.4 RATIO (0.9-2.4); AST(SGOT) 56 U/L (15-37); Alanine Aminotransfer ALT/SGPT 70 U/L (13-56); Albumin, Serum 1.6 g/dL (3.2-5.0); Alkaline Phosphatase 79 U/L (45-117); Anion Gap 5 (5-15); BUN 18 mg/dL (7-18); BUN/Creat Ratio 44.7 RATIO (10-20); Calcium,Total 6.9 mg/dL (8.5-10.1); Chloride 103 mmol/L (98-107); EST Glomerular Filtration Rate 166 mL/min (>60); Est Glom Filt Rate - Afr Amer 201 mL/min (>60); Estimated Creatinine Clearance 52.81 ml/min; Globulin 3.9 g/dL (2.2-4.2); Glucose 221 mg/dL (74-106); Magnesium 2.6 mg/dL (1.6-2.6); Potassium 5.1 mmol/L (3.5-5.1); Protein, Total 5.5 g/dL (6.4-8.2); Sodium Level 131 mmol/L (136-145)
[2022-05-23] MEDS: Insulin Lispro 100 UNIT/ML INSULN.PEN SC ×4 (06:16→20:58)
[2022-05-23 06:40] LABS: Bedside Glucose 231 mg/dL (74-106)
--- NOTE | 2022-05-23 07:33 | CPS ---
called to the room. pt tore nasal pillows, replaced.
--- NOTE | 2022-05-23 08:15 | PCM.PN.INT ---
Assessment & Plan Assessment/Plan (1) Atrial fibrillation with rapid ventricular response: (2) COVID-19: (3) Legionella pneumonia: (4) History of diabetes mellitus: PLAN: Plan RECOMMENDATIONS: 1. Encourage BiPAP as needed and nightly 2. Wean supplemental oxygen as tolerated 3. Challenge with diuretics 4. Defer antibiotics to infectious disease 5. Continue LFTs daily while on Remdesivir 6. Agree with Decadron 7. Aggressive electrolyte supplementation if indicated IMPRESSIONS: 1. Acute hypoxic respiratory failure secondary to Legionella pneumonia/COVID-19/probable COPD Patient's respiratory status appears to have somewhat stabilized. Patient is still requiring significant FiO2 to maintain saturations. Some concern for continued tachypnea leading to respiratory muscle fatigue. Patient did tolerate BiPAP overnight with improvement in oxygenation today. Will continue to encourage BiPAP as needed to see if this will help with respiratory rate. Stressed to the patient that without BiPAP, intubation will be required with decompensation. Heart rate has been controlled, which does help to situation. Patient is on adequate therapy for Legionella pneumonia. Clinical suspicion for improvement secondary to treatment of Legionella pneumonia more than COVID-19 or suspected COPD. Patient is receiving Decadron and remdesivir. Given Remdesivir, LFTs will be checked daily. Patient has had some episodes of incontinence, but overall is +9 L for the hospitalization. Will challenge with diuretics today given worsening oxygenation status. 2. New onset A. fib with RVR Patient appears to have responded well to amiodarone therapy. Very little background information is available from a cardiac standpoint. Patient does have an echocardiogram ordered. Patient appears to be relatively rate controlled at this time. Troponin is slightly elevated, but this is likely secondary to profound hypoxia secondary to problem #1. Patient does have a history of hyperlipidemia, advanced age and diabetes increasing risk for coronary artery disease. No complications to anticoagulation noted. Patient may require cardiac work-up once acute condition is resolved. 3. Acute gastroenteritis/chronic smoker/diabetes mellitus type 2/osteoporosis/osteoarthritis/advanced age Complicates care, management, recovery and prognosis. Patient is at risk for COPD given smoking history, but unable to confirm at this time. We will need to watch blood sugars closely given need for Decadron secondary to problem #1, but appears to be tolerating. Recommend limiting IV fluids as these has been shown to worsen respiratory failure and COVID-19. Subjective Subjective Patient overall states that she feels subjectively unchanged compared to previous. However, patient did have to go to Airvo overnight secondary to hypoxia. Patient is not reporting any epistaxis. No palpitations have been reported. Objective Data Objective Data Vital Signs: Vital Signs Temp Pulse Resp BP Pulse Ox O2 Del Method O2 Flow Rate 36.6 C 84 24 H 115/62 97 Airvo 50 05/23/22 03:14 05/23/22 07:00 05/23/22 03:14 05/23/22 03:14 05/23/22 07:00 05/23/22 07:00 05/23/22 07:00 FiO2 60 05/23/22 07:00 Oxygen Flow Rate (L/min) 50 Oxygen Delivery Method Airvo Weight: 67.3 kg Body Mass Index (BMI) 21.5 Intake & Output: Intake and Output for Last 24 Hours 05/21/22 05/22/22 05/23/22 23:59 23:59 23:59 Intake Total 1466.50 / 1670.00 1932.16 / 2082.16 150 / 150 Output Total 300 / 300 750 / 750 Balance 1166.50 / 1370.00 1182.16 / 1332.16 150 / 150 Lab / Micro Data Attestation: I reviewed the patient's lab results. Result Diagrams: 05/23/22 04:25 05/23/22 04:25 Labs: Laboratory Results - last 24 hr 05/22/22 10:52: POC Glucose 331 H 05/22/22 18:18: POC Glucose 316 H 05/22/22 20:48: POC Glucose 275 H 05/23/22 04:25: Sodium 131 L, Potassium 5.1, Chloride 103, Carbon Dioxide 23.0, Anion Gap 5, BUN 18, Creatinine 0.40 L, Estim Creat Clear Calc 52.81, Est GFR (MDRD) Af Amer 201, Est GFR (MDRD) Non-Af 166, BUN/Creatinine Ratio 44.7 H, Glucose 221 H, Calcium 6.9 L, Magnesium 2.6, Total Bilirubin 0.50, AST 56 H, ALT 70 H, Alkaline Phosphatase 79, Total Protein 5.5 L, Albumin 1.6 L, Globulin 3.9, Albumin/Globulin Ratio 0.4 L 05/23/22 04:25: WBC 28.0 H, RBC 3.32 L, Hgb 9.8 L, Hct 30.0 L, MCV 90.4 D, MCH 29.5, MCHC 32.7, RDW Std Deviation 50.3 H, RDW Coeff of [place] 15.2 H, Plt Count 613 H, MPV 9.9, Immature Gran % (Auto) 2.900 H, Neut % (Auto) 90.2 H, Lymph % (Auto) 2.9 L, [place] % (Auto) 3.7, Eos % (Auto) 0.0, Baso % (Auto) 0.3, Absolute Neuts (auto) 25.3 H, Absolute Lymphs (auto) 0.80 L, Nucleated RBC % 0, Differential Comment SCANNED 05/23/22 04:25: Phosphorus 1.4 L 05/23/22 06:14: POC Glucose 231 H Micro: Microbiology 05/18/22 18:10 Blood Culture (Wb) - Anticubital Right Blood Culture - Preliminary No growth in 48 hours. 05/18/22 19:00 Blood Culture (Wb) - Anticubital Right Blood Culture - Preliminary No growth in 48 hours. 05/18/22 21:20 Urine, Clean Catch Streptococcus pneumoniae Antigen (M - Final 05/18/22 21:20 Urine, Clean Catch Legionella Antigen - Final Legionella Antigen 05/18/22 18:37 Nasal Secretion SARS-CoV-2 & FLU Antigen (Rapid) - Final Rhythm Strip Rhythm Strip: A-fib Rate: 84 Ectopy: PVC(s) Physical Exam Const alert, oriented x3 and no apparent distress Constitutional Narrative: Mild conversational dyspnea noted. More dyspneic compared to yesterday. On Airvo General Appearance: ill appearing; Negative for in distress HEENT normocephalic and head/scalp atraumatic Eyes PERRL and EOMs intact bilaterally Eyes Narrative: Slight scleral injection Neck full ROM Chest inspection of chest normal Resp no use of accessory muscles Effort and Inspection: tachypneic and labored Auscultation: wheezes and diminished lung sounds; Negative for rales or rhonchi Cardio regular rate, S1 normal heart sound, S2 normal heart sound, no murmurs, no rub and no gallops Rate: tachycardic Rhythm: abnormal rhythm irregularly irregular GI normal to inspection, nondistended, normoactive bowel sounds Extremity General Extremity: edema; Negative for clubbing Skin no rashes or lesions noted Neuro oriented x3, CN's II-XII intact bilaterally, moves all extremities and no focal motor deficits Psych cooperative and affect normal Charges/Coding Visit Charges Inpatient E&M: 16385 Subs Hosp L3
--- NOTE | 2022-05-23 09:31 | PCM.PN.HOSP ---
Subjective Subjective Follow-up for acute hypoxic respiratory failure secondary to pneumonia. Objective Data Objective Data Vital Signs: Vital Signs Temp Pulse Resp BP Pulse Ox O2 Del Method O2 Flow Rate 98 F 84 24 H 115/62 97 Airvo 50 05/23/22 03:14 05/23/22 07:00 05/23/22 03:14 05/23/22 03:14 05/23/22 07:00 05/23/22 07:00 05/23/22 07:00 FiO2 60 05/23/22 07:00 Oxygen Flow Rate (L/min) 50 Oxygen Delivery Method Airvo Weight: 148 lb 5.938 oz Body Mass Index (BMI) 21.5 Intake & Output: Intake and Output for Last 24 Hours 05/21/22 05/22/22 05/23/22 23:59 23:59 23:59 Intake Total 1466.50 / 1670.00 1932.16 / 2082.16 150 / 150 Output Total 300 / 300 750 / 750 Balance 1166.50 / 1370.00 1182.16 / 1332.16 150 / 150 Lab / Micro Data Result Diagrams: 05/23/22 04:25 05/23/22 04:25 Labs: Laboratory Results - last 24 hr 05/22/22 10:52: POC Glucose 331 H 05/22/22 18:18: POC Glucose 316 H 05/22/22 20:48: POC Glucose 275 H 05/23/22 04:25: Sodium 131 L, Potassium 5.1, Chloride 103, Carbon Dioxide 23.0, Anion Gap 5, BUN 18, Creatinine 0.40 L, Estim Creat Clear Calc 52.81, Est GFR (MDRD) Af Amer 201, Est GFR (MDRD) Non-Af 166, BUN/Creatinine Ratio 44.7 H, Glucose 221 H, Calcium 6.9 L, Magnesium 2.6, Total Bilirubin 0.50, AST 56 H, ALT 70 H, Alkaline Phosphatase 79, Total Protein 5.5 L, Albumin 1.6 L, Globulin 3.9, Albumin/Globulin Ratio 0.4 L 05/23/22 04:25: WBC 28.0 H, RBC 3.32 L, Hgb 9.8 L, Hct 30.0 L, MCV 90.4 D, MCH 29.5, MCHC 32.7, RDW Std Deviation 50.3 H, RDW Coeff of Palak 15.2 H, Plt Count 613 H, MPV 9.9, Immature Gran % (Auto) 2.900 H, Neut % (Auto) 90.2 H, Lymph % (Auto) 2.9 L, [place] % (Auto) 3.7, Eos % (Auto) 0.0, Baso % (Auto) 0.3, Absolute Neuts (auto) 25.3 H, Absolute Lymphs (auto) 0.80 L, Nucleated RBC % 0, Differential Comment SCANNED 05/23/22 04:25: Phosphorus 1.4 L 05/23/22 06:14: POC Glucose 231 H Micro: Microbiology 05/18/22 18:10 Blood Culture (Wb) - Anticubital Right Blood Culture - Preliminary No growth in 48 hours. 05/18/22 19:00 Blood Culture (Wb) - Anticubital Right Blood Culture - Preliminary No growth in 48 hours. 05/18/22 21:20 Urine, Clean Catch Streptococcus pneumoniae Antigen (M - Final 05/18/22 21:20 Urine, Clean Catch Legionella Antigen - Final Legionella Antigen 05/18/22 18:37 Nasal Secretion SARS-CoV-2 & FLU Antigen (Rapid) - Final Rhythm Strip Rhythm Strip: A-fib Rate: 84 Ectopy: PVC(s) Physical Exam Narrative Seen and examined. On Airvo. Patient looks short of breath, labored breathing using accessory muscles. Used BiPAP/Airvo last night. Discussed with her daughter and try to convince for Airvo. Ativan ordered Physical exam General: Alert, awake. Oriented x3. Fatigue HEENT: Atraumatic, PERRLA, EOMI, Normocephalic Oral: Oral mucosa moist. On AVAPS Neck: Supple, No JVD, Negative Carotid Bruits Lungs: Air entry diminished in bilateral lung bases. Dyspnea at rest. Bilateral coarse crepitations present, improving. On Airvo. Cardiovascular: A. fib, rate is better controlled. Normal S1, Normal S2, No murmurs Abdomen: Bowel Sounds Present, Soft, Non Tender, Non-Distended : No renal angle tenderness. No suprapubic tenderness. Extremities: No edema, Capillary Refill Less than 3 Seconds Skin: No rashes, No breakdown Musculoskeletal: No Tenderness to Palpation of Joints or Extremities. ROM full Neurological: Cranial nerves II-XII grossly intact, DTR 2+/4, muscle strength 4/5 at major joints of lower extremities. Psych/Mental Status: Flat affect. Assessment & Plan Assessment/Plan (1) Lobar pneumonia: (2) COVID-19: (3) Atrial fibrillation with rapid ventricular response: (4) Acute hyponatremia: (5) Acute hypokalemia: PLAN: Plan This 26-year-old female being admitted with cough, shortness of breath, low-grade fever, tachycardia, tachypnea and chest x-ray findings history of multilobar pneumonia. 1. Acute hypoxic respiratory failure due to COVID-19 multilobar/multifocal pneumonia complicated with bacterial superinfection, Legionella pneumonia: Lactic acid pending. Patient is being admitted in PCU. COVID-19 orders including rapid antigen, flu antigen PCR and inflammatory markers including D-dimers are ordered. Liver profile ordered. Patient is started on dexamethasone, IV Rocephin and Zithromax. If liver chemistry in acceptable limit, start remdesivir. ID consult. Pneumonia work-up including urinary antigens, MRSA nasal screen and sputum culture and blood culture ordered. If patient gets respiratory failure will consult channel layer. 05/19: Liver chemistry shows AST 47 otherwise normal. Inflammatory markers are high including LDH, troponin, D-dimer and fibrinogen. Procalcitonin high 6.79 therefore high risk for worsening of infection, sepsis or septic shock. Currently patient clinical exam, labs and parameters do not suggest sepsis. Senior Clinical Data Manager consult and ID consult reviewed and appreciated. Patient on ceftriaxone and Zithromax which will cover Legionella. Continue dexamethasone and remdesivir. Tocilizumab contraindicated patient has Legionella. Repeat ABG was done 7. on 70% FiO2, 50 L/min Airvo. Overall suggestive of acute respiratory alkalosis. As patient is not acidotic or pH less than 7.34 we will continue Airvo. 05/20: Patient maxed on Airvo therefore changed to AVAPS. Liver chemistry shows increasing ALT AST about 4-5 times baseline. Monitor liver chemistry daily. Mild acute liver injury probably due to remdesivir. Discussed with ID will monitor liver chemistry closely. For now, benefit outweighs risk. 05/21: Patient refusing for BiPAP/AVAPS. Discussed in detail with her daughter and the patient regarding the importance to prevent intubation/ventilator. Liver chemistry shows improvement in ALT and AST as compared to yesterday. Senior Clinical Data Manager note reviewed and appreciated. 05/22: Liver chemistry AST 69, ALT 85 showing improving trend. Continue remdesivir to complete full course. Patient on IV dexamethasone. Blood cultures negative for 48 hours 05/23: Liver chemistry shows improvement in transaminases. Patient completed remdesivir. Continue dexamethasone 2. A. fib with RVR, new onset probably precipitated COVID-19 infection/pneumonia: Patient is on IV Cardizem drip, increased to 10 mg/h. Mildly elevated troponin. Cycle troponins. TSH tomorrow AM. Serum magnesium and phosphorus. 05/19: Heart rate in 90. Heart rate is controlled. Patient initiated on amiodarone. Patient had digoxin. Titrate down Cardizem. 05/20: Discussed with the legal instruments examiner on 05/19. Amiodarone changed to oral after completion of IV drip. Titrate down the Cardizem drip. 1 dose of digoxin given patient having low BP, SBP in 90s. Mild hypokalemia and hypophosphatemia, electrolytes getting replaced. 05/21: Heart rate is better controlled. Try to taper off Cardizem. 05/22: Cardizem drip changed to Cardizem CD 120 mg twice daily. Wean off Cardizem drip. 05/23: Patient converted to sinus rhythm on 05/22. Cardizem CD discontinued. Heart rate in the 80s. 3. Acute gastroenteritis probably due to COVID-19 complicated with hyponatremia, hypokalemia and hypochloremia: IV fluid normal saline. Monitor electrolytes. Diet initiated. Acute gastroenteritis resolved. Monitor electrolytes 05/23: No diarrhea. Hypophosphatemia, K5.1. Sodium 131. Started on Neutra-Phos for hypophosphatemia. Discontinue potassium supplement 4. Chronic smoker, possibility of COPD: Patient never evaluated for COPD. 5. Diabetes mellitus type 2: Accu-Chek insulin coverage with Humalog sliding scale. A1c tomorrow a.m. Hold metformin. 05/21: Glucose in 200s. A1c 5.9%. Hyperglycemia due to dexamethasone, corticosteroid. 05/22: Lantus 10 subcutaneous daily added to cover for hyperglycemia due to steroid 6. Debility due to arthritis, osteoporosis Total time of the visit including total time spent in counseling or coordination of care, (more than 50% of the total time, spent in obtaining medical information from nurses and other ancillary care providers,explaining to the patient about labs, imaging, diagnosis and management), discussion with consultants ID and chemistry quality control analyst, review of medical records, clinical update given to daughter near the bedside review of labs and imaging is 40 minutes. Living will/advanced directive/end of life care: Patient does not have living will or advanced directive. Patient does not have designated power of customer field representative for health. Her next to kin is her and daughter who is present in the room. After discussion of benefits/risks procedures involved with full code, DNR CC arrest and DNR CC, the patient opted for full code. Patient does want artificial life support including intubation, tube feed, ventilator and/chest compression, central venous catheter, vasopressor and DC shock if needed Total time spent in [id number] encounter in discussion of advanced directive 16 minutes. Laboratory Results 05/21/22 15:37: POC Glucose 255 H 05/21/22 22:14: POC Glucose 256 H 05/22/22 05:45: Sodium 131 L, Potassium 4.0, Chloride 99, Carbon Dioxide 24.0, Anion Gap 8, BUN 16, Creatinine 0.39 L, Estim Creat Clear Calc 52.81, Est GFR (MDRD) Af Amer 208, Est GFR (MDRD) Non-Af 172, BUN/Creatinine Ratio 40.8 H, Glucose 257 H, Calcium 7.0 L, Total Bilirubin 0.50, AST 69 H, ALT 85 H, Alkaline Phosphatase 74, Total Protein 5.4 L, Albumin 1.7 L, Globulin 3.7, Albumin/Globulin Ratio 0.5 L 05/22/22 06:28: POC Glucose 251 H 05/22/22 10:52: POC Glucose 331 H Charges/Coding Visit Charges Inpatient E&M: 01047 Subs Hosp L3
[2022-05-23] MEDS: APIXABAN 5 MG TABLET PO ×2 (10:38→20:52)
[2022-05-23] MEDS: Amiodarone 200 MG Tablet PO ×2 (10:38→16:26)
[2022-05-23] MEDS: Furosemide 40 MG/4 ML Vial IV (10:38)
[2022-05-23] MEDS: Na Biphos/Potassium Phosphate PACKET 1 PACKET PO ×3 (10:38→20:49)
[2022-05-23] MEDS: Pantoprazole Sodium 40 MG Tablet PO (10:38)
[2022-05-23] MEDS: guaiFENesin 1,200 MG Tablet 1200 MG PO ×2 (10:38→20:53)
[2022-05-23] MEDS: Insulin Glargine-YFGN 100 UNIT/ML Pen 10 UNIT SC (10:39)
[2022-05-23] MEDS: 0.9% Saline Lock 10 ML Syringe IV ×2 (10:39→22:06)
[2022-05-23] MEDS: dexAMETHasone 10 MG/ML Vial 6 MG IV (10:39)
[2022-05-23] MEDS: Sodium Chloride 0.65% 1 SPRAY SPRAY.BTL NASAL ×2 (10:48→20:59)
[2022-05-23 11:20] LABS: Bedside Glucose 216 mg/dL (74-106)
[2022-05-23 17:01] LABS: Bedside Glucose 299 mg/dL (74-106)
[2022-05-23] MEDS: LORazepam 0.5 MG Tablet PO ×2 (18:27→22:05)
--- NOTE | 2022-05-23 18:37 | EKG12_ITS ---
Test Reason : converted to NSR Blood Pressure : / mmHG Vent. Rate : 081 BPM Atrial Rate : 081 BPM P-R Int : 146 ms QRS Dur : 086 ms QT Int : 402 ms P-R-T Axes : 055 043 061 degrees QTc Int : 466 ms Normal sinus rhythm Normal ECG Confirmed by AJ DAY, KEITH ([id number]), scientific publications editor MARIA C WILKES ([id number]) on 05/24/2022 8:29:49 AM Referred By: Confirmed By:KEITH ROCHA MD
[2022-05-23] MEDS: Atorvastatin Calcium 20 MG Tablet PO (20:52)
[2022-05-23] MEDS: Metoprolol Tartrate 5 MG/5 ML Vial IV (22:05)
[2022-05-23 23:25] LABS: Bedside Glucose 249 mg/dL (74-106)
[2022-05-24] VITALS (27 sets, daily range): BP systolic 88–140; BP diastolic 58–93; PULSE 79–147; RESP 14–33; TEMP 36.5–37.2; O2SAT 91–97
[2022-05-24 06:11] LABS: Absolute Lymphocyte Count 0.98 X10^3/uL (0.83-4.51); Basophil# 0.05 X10^3/uL; Basophil% 0.2 % (0-1); Eosinophil# 0.01 X10^3/uL; Hematocrit 32.5 % (37-47); Hemoglobin 10.7 g/dL (12.0-15.0); Lymphocyte # 0.98 X10^3/ul (0.83-4.51); Lymphocyte % 3.9 % (19-41); Mean Corp Hgb Conc 32.9 g/dL (32-36); Mean Corpuscular Hgb 29.3 pg (27.0-32.0); Mean Platelet Vol. 9.5 fl (6.2-12.0); Monocyte# 1.38 X10^3/uL; Monocyte% 5.4 % (0-10); NRBC Flagged by Analyzer 0 % (0-5); Neutrophil # 21.97 X10^3/uL (2.7-7.7); Neutrophil % 86.6 % (47-70); POSITIVE COUNT YES; POSITIVE DIFFERENTIAL YES; RBC Distribution Width SD 48.9 fl (35.1-43.9); Red Blood Count 3.65 M/mm3 (4.2-5.4); White Blood Count 25.4 K/mm3 (4.4-11.0)
[2022-05-24] MEDS: Insulin Lispro 100 UNIT/ML INSULN.PEN SC ×4 (06:40→20:00)
[2022-05-24 06:43] LABS: ALB/GLOB Ratio 0.6 RATIO (0.9-2.4); AST(SGOT) 56 U/L (15-37); Alanine Aminotransfer ALT/SGPT 71 U/L (13-56); Alkaline Phosphatase 94 U/L (45-117); Anion Gap 7 (5-15); BUN 21 mg/dL (7-18); BUN/Creat Ratio 41.8 RATIO (10-20); Chloride 94 mmol/L (98-107); EST Glomerular Filtration Rate 129 mL/min (>60); Est Glom Filt Rate - Afr Amer 156 mL/min (>60); Estimated Creatinine Clearance 52.72 ml/min; Globulin 3.4 g/dL (2.2-4.2); Glucose 217 mg/dL (74-106); Potassium 4.7 mmol/L (3.5-5.1); Protein, Total 5.4 g/dL (6.4-8.2); Sodium Level 132 mmol/L (136-145)
[2022-05-24] MEDS: Na Biphos/Potassium Phosphate PACKET 1 PACKET PO ×3 (06:44→19:54)
[2022-05-24 06:46] LABS: Platelet Count 751 K/mm3 (150-450)
[2022-05-24 06:47] LABS: Differential Indicated SCAN CRITERIA MET
--- NOTE | 2022-05-24 06:47 | NURSING ---
Pts primary rn aware of plt results of 751 this am at this time.
[2022-05-24 06:48] LABS: Differential Comment SCANNED; Platelet Estimate MKD INC (ADEQ)
--- NOTE | 2022-05-24 08:19 | PCM.PN.INT ---
Assessment & Plan Assessment/Plan (1) Atrial fibrillation with rapid ventricular response: (2) COVID-19: (3) Legionella pneumonia: (4) History of diabetes mellitus: PLAN: Plan RECOMMENDATIONS: 1. Encourage BiPAP as needed and nightly 2. Wean supplemental oxygen as tolerated 3. Continue challenge with diuretics 4. Defer antibiotics to infectious disease 5. Okay to discontinue LFTs given completion of Remdesivir 6. Agree with Decadron for 10 days 7. Aggressive electrolyte supplementation if indicated IMPRESSIONS: 1. Acute hypoxic respiratory failure secondary to Legionella pneumonia/COVID-19/probable COPD Patient's respiratory status appears to have somewhat worsened. Patient is still requiring significant FiO2 to maintain saturations. Some concern for continued tachypnea leading to respiratory muscle fatigue. Patient has not been compliant with BiPAP leading to progressive hypoxia. Will continue to encourage BiPAP as needed to see if this will help with respiratory rate. Stressed to the patient that without BiPAP, intubation will be required with decompensation. Heart rate had been controlled,, but rate is up, likely secondary to noncompliance with supplemental oxygen. Patient is on adequate therapy for Legionella pneumonia. Clinical suspicion for improvement secondary to treatment of Legionella pneumonia more than COVID-19 or suspected COPD. Patient is receiving Decadron. Remdesivir has been completed, so daily LFTs can be discontinued. Patient responded well to diuretics. We will continue to challenge as renal function allows 2. New onset A. fib with RVR Patient appears to have responded well to amiodarone therapy. Very little background information is available from a cardiac standpoint. Echocardiogram was relatively unremarkable. Patient appears to be relatively rate controlled at this time when supplemental oxygen is left in place. Troponin is slightly elevated, but this is likely secondary to profound hypoxia secondary to problem #1. Patient does have a history of hyperlipidemia, advanced age and diabetes increasing risk for coronary artery disease. No complications to anticoagulation noted. Patient may require cardiac work-up once acute condition is resolved. 3. Acute gastroenteritis/chronic smoker/diabetes mellitus type 2/osteoporosis/osteoarthritis/advanced age Complicates care, management, recovery and prognosis. Patient is at risk for COPD given smoking history, but unable to confirm at this time. We will need to watch blood sugars closely given need for Decadron secondary to problem #1, but appears to be tolerating. Recommend limiting IV fluids as these has been shown to worsen respiratory failure and COVID-19. Subjective Subjective Patient did okay overnight. No acute issues were reported outside of nursing stating that the patient was removing her Airvo frequently, leading to significant desaturation. Patient now with uncontrolled heart rate and was started on Cardizem drip. Patient was dismissive when discussed about keeping supplemental oxygen in place. Patient is not reporting any chest pain. Patient continues to report a cough that is nonproductive. Objective Data Objective Data Vital Signs: Vital Signs Temp Pulse Resp BP Pulse Ox O2 Del Method O2 Flow Rate 37.1 C 114 H 24 H 124/78 H 94 Airvo 50 05/24/22 07:28 05/24/22 07:28 05/24/22 07:28 05/24/22 07:28 05/24/22 07:28 05/24/22 07:28 05/23/22 18:30 FiO2 58 05/24/22 07:25 Oxygen Flow Rate (L/min) 50 Oxygen Delivery Method Airvo Weight: 63.8 kg Body Mass Index (BMI) 21.5 Intake & Output: Intake and Output for Last 24 Hours 05/22/22 05/23/22 05/24/22 23:59 23:59 23:59 Intake Total 1932.16 / 2082.16 950 / 950 Output Total 750 / 750 2500 / 2900 700 / 700 Balance 1182.16 / 1332.16 -1550 / -1950 -700 / -700 Lab / Micro Data Attestation: I reviewed the patient's lab results. Result Diagrams: 05/24/22 05:27 05/24/22 05:27 Labs: Laboratory Results - last 24 hr 05/23/22 10:36: POC Glucose 216 H 05/23/22 16:25: POC Glucose 299 H 05/23/22 20:57: POC Glucose 249 H 05/24/22 05:27: Sodium 132 L, Potassium 4.7, Chloride 94 L, Carbon Dioxide 31.0, Anion Gap 7, BUN 21 H, Creatinine 0.50 L, Estim Creat Clear Calc 52.72, Est GFR (MDRD) Af Amer 156, Est GFR (MDRD) Non-Af 129, BUN/Creatinine Ratio 41.8 H, Glucose 217 H, Calcium 7.0 L, Total Bilirubin 0.60, AST 56 H, ALT 71 H, Alkaline Phosphatase 94, Total Protein 5.4 L, Albumin 2.0 L, Globulin 3.4, Albumin/Globulin Ratio 0.6 L 05/24/22 05:27: WBC 25.4 H, RBC 3.65 L, Hgb 10.7 L, Hct 32.5 L, MCV 89.0, MCH 29.3, MCHC 32.9, RDW Std Deviation 48.9 H, RDW Coeff of [place]ak 15.0 H, Plt Count 751 H*, MPV 9.5, Immature Gran % (Auto) 3.900 H, Neut % (Auto) 86.6 H, Lymph % (Auto) 3.9 L, [place] % (Auto) 5.4, Eos % (Auto) 0.0, Baso % (Auto) 0.2, Absolute Neuts (auto) 22.0 H, Absolute Lymphs (auto) 0.98, Nucleated RBC % 0, Differential Comment SCANNED, Diff Path Review February foll, Platelet Estimate [employer] Micro: Microbiology 05/18/22 18:10 Blood Culture (Wb) - Anticubital Right Blood Culture - Final No growth in 5 days. 05/18/22 19:00 Blood Culture (Wb) - Anticubital Right Blood Culture - Final No growth in 5 days. 05/18/22 21:20 Urine, Clean Catch Streptococcus pneumoniae Antigen (M - Final 05/18/22 21:20 Urine, Clean Catch Legionella Antigen - Final Legionella Antigen 05/18/22 18:37 Nasal Secretion SARS-CoV-2 & FLU Antigen (Rapid) - Final Rhythm Strip Rhythm Strip: A-fib Rate: 117 Ectopy: PVC(s) Physical Exam Const alert and oriented x3 Constitutional Narrative: Mild conversational dyspnea noted. More dyspneic compared to yesterday. On Airvo General Appearance: ill appearing Positive for acutely HEENT normocephalic and head/scalp atraumatic Eyes PERRL and EOMs intact bilaterally Eyes Narrative: Slight scleral injection Neck full ROM Chest inspection of chest normal Resp no use of accessory muscles Effort and Inspection: tachypneic, labored and uses accessory muscles Auscultation: wheezes and diminished lung sounds; Negative for rales or rhonchi Cardio regular rate, S1 normal heart sound, S2 normal heart sound, no murmurs, no rub and no gallops Rate: tachycardic Rhythm: abnormal rhythm irregularly irregular GI normal to inspection, nondistended, normoactive bowel sounds Extremity General Extremity: edema; Negative for clubbing Skin no rashes or lesions noted Neuro oriented x3, CN's II-XII intact bilaterally, moves all extremities and no focal motor deficits Psych cooperative and affect normal Charges/Coding Visit Charges Inpatient E&M: 27221 Subs Hosp L3
--- NOTE | 2022-05-24 11:10 | PCM.PN.HOSP ---
Subjective Subjective Follow-up for acute hypoxic respiratory failure and sinus tachycardia. In the morning patient heart rate was in 120s, sinus tachycardia. Patient was started on Cardizem CD for rate control around 100/m. Sinus tachycardia probably due to respiratory illness/pneumonia and hypoxia. Objective Data Objective Data Vital Signs: Vital Signs Temp Pulse Resp BP Pulse Ox O2 Del Method O2 Flow Rate 98.7 F 114 H 24 H 124/78 H 94 Airvo 50 05/24/22 07:28 05/24/22 07:28 05/24/22 07:28 05/24/22 07:28 05/24/22 07:28 05/24/22 07:28 05/23/22 18:30 FiO2 58 05/24/22 07:25 Oxygen Flow Rate (L/min) 50 Oxygen Delivery Method Airvo Weight: 140 lb 10.479 oz Body Mass Index (BMI) 21.5 Intake & Output: Intake and Output for Last 24 Hours 05/22/22 05/23/22 05/24/22 23:59 23:59 23:59 Intake Total 1932.16 / 2082.16 950 / 950 Output Total 750 / 750 2500 / 2900 700 / 700 Balance 1182.16 / 1332.16 -1550 / -1950 -700 / -700 Lab / Micro Data Result Diagrams: 05/24/22 05:27 05/24/22 05:27 Labs: Laboratory Results - last 24 hr 05/23/22 10:36: POC Glucose 216 H 05/23/22 16:25: POC Glucose 299 H 05/23/22 20:57: POC Glucose 249 H 05/24/22 05:27: Sodium 132 L, Potassium 4.7, Chloride 94 L, Carbon Dioxide 31.0, Anion Gap 7, BUN 21 H, Creatinine 0.50 L, Estim Creat Clear Calc 52.72, Est GFR (MDRD) Af Amer 156, Est GFR (MDRD) Non-Af 129, BUN/Creatinine Ratio 41.8 H, Glucose 217 H, Calcium 7.0 L, Total Bilirubin 0.60, AST 56 H, ALT 71 H, Alkaline Phosphatase 94, Total Protein 5.4 L, Albumin 2.0 L, Globulin 3.4, Albumin/Globulin Ratio 0.6 L 05/24/22 05:27: WBC 25.4 H, RBC 3.65 L, Hgb 10.7 L, Hct 32.5 L, MCV 89.0, MCH 29.3, MCHC 32.9, RDW Std Deviation 48.9 H, RDW Coeff of Palak 15.0 H, Plt Count 751 H*, MPV 9.5, Immature Gran % (Auto) 3.900 H, Neut % (Auto) 86.6 H, Lymph % (Auto) 3.9 L, [place] % (Auto) 5.4, Eos % (Auto) 0.0, Baso % (Auto) 0.2, Absolute Neuts (auto) 22.0 H, Absolute Lymphs (auto) 0.98, Nucleated RBC % 0, Differential Comment SCANNED, Diff Path Review February foll, Platelet Estimate [employer] Micro: Microbiology 05/18/22 18:10 Blood Culture (Wb) - Anticubital Right Blood Culture - Final No growth in 5 days. 05/18/22 19:00 Blood Culture (Wb) - Anticubital Right Blood Culture - Final No growth in 5 days. 05/18/22 21:20 Urine, Clean Catch Streptococcus pneumoniae Antigen (M - Final 05/18/22 21:20 Urine, Clean Catch Legionella Antigen - Final Legionella Antigen 05/18/22 18:37 Nasal Secretion SARS-CoV-2 & FLU Antigen (Rapid) - Final Rhythm Strip Rhythm Strip: A-fib Rate: 117 Ectopy: PVC(s) Physical Exam Narrative Seen and examined. On Airvo. Sinus tachycardia patient looks short of breath, labored breathing using accessory muscles. Used BiPAP/Airvo last night. Discussed with her daughter and try to convince for BiPAP. Physical exam General: Alert, awake. Oriented x3. Fatigue, weak HEENT: Atraumatic, PERRLA, EOMI, Normocephalic Oral: Oral mucosa moist. On AVAPS Neck: Supple, No JVD, Negative Carotid Bruits Lungs: Air entry diminished in bilateral lung bases. Dyspnea at rest. Bilateral coarse crepitations, slightly better. On Airvo. Cardiovascular: Sinus tachycardia. Normal S1, Normal S2, No murmurs Abdomen: Bowel Sounds Present, Soft, Non Tender, Non-Distended : No renal angle tenderness. No suprapubic tenderness. Extremities: No edema, Capillary Refill Less than 3 Seconds Skin: No rashes, No breakdown Musculoskeletal: No Tenderness to Palpation of Joints or Extremities. ROM full Neurological: Cranial nerves II-XII grossly intact, DTR 2+/4, muscle strength 4/5 at major joints of lower extremities. Psych/Mental Status: Flat affect. Assessment & Plan Assessment/Plan (1) Lobar pneumonia: (2) COVID-19: (3) Atrial fibrillation with rapid ventricular response: (4) Acute hyponatremia: (5) Acute hypokalemia: PLAN: Plan This 26-year-old female being admitted with cough, shortness of breath, low-grade fever, tachycardia, tachypnea and chest x-ray findings history of multilobar pneumonia. 1. Acute hypoxic respiratory failure due to COVID-19 multilobar/multifocal pneumonia complicated with bacterial superinfection, Legionella pneumonia: Lactic acid pending. Patient is being admitted in PCU. COVID-19 orders including rapid antigen, flu antigen PCR and inflammatory markers including D-dimers are ordered. Liver profile ordered. Patient is started on dexamethasone, IV Rocephin and Zithromax. If liver chemistry in acceptable limit, start remdesivir. ID consult. Pneumonia work-up including urinary antigens, MRSA nasal screen and sputum culture and blood culture ordered. If patient gets respiratory failure will consult dross puller. 05/19: Liver chemistry shows AST 47 otherwise normal. Inflammatory markers are high including LDH, troponin, D-dimer and fibrinogen. Procalcitonin high 6.79 therefore high risk for worsening of infection, sepsis or septic shock. Currently patient clinical exam, labs and parameters do not suggest sepsis. Computer Systems Consultant consult and ID consult reviewed and appreciated. Patient on ceftriaxone and Zithromax which will cover Legionella. Continue dexamethasone and remdesivir. Tocilizumab contraindicated patient has Legionella. Repeat ABG was done 7. on 70% FiO2, 50 L/min Airvo. Overall suggestive of acute respiratory alkalosis. As patient is not acidotic or pH less than 7.34 we will continue Airvo. 05/20: Patient maxed on Airvo therefore changed to AVAPS. Liver chemistry shows increasing ALT AST about 4-5 times baseline. Monitor liver chemistry daily. Mild acute liver injury probably due to remdesivir. Discussed with ID will monitor liver chemistry closely. For now, benefit outweighs risk. 05/21: Patient refusing for BiPAP/AVAPS. Discussed in detail with her daughter and the patient regarding the importance to prevent intubation/ventilator. Liver chemistry shows improvement in ALT and AST as compared to yesterday. Computer Systems Consultant note reviewed and appreciated. 05/22: Liver chemistry AST 69, ALT 85 showing improving trend. Continue remdesivir to complete full course. Patient on IV dexamethasone. Blood cultures negative for 48 hours 05/23: Liver chemistry shows improvement in transaminases. Patient completed remdesivir. Continue dexamethasone 05/24: We will discontinue liver chemistry as patient completed remdesivir and liver question shows mild elevated transaminases. Patient tried half an hour for BiPAP last night. Again I tried to convince her daughter for BiPAP. Ativan is ordered as needed before putting BiPAP. 2. A. fib with RVR, new onset probably precipitated COVID-19 infection/pneumonia: Patient is on IV Cardizem drip, increased to 10 mg/h. Mildly elevated troponin. Cycle troponins. TSH tomorrow AM. Serum magnesium and phosphorus. 05/19: Heart rate in 90. Heart rate is controlled. Patient initiated on amiodarone. Patient had digoxin. Titrate down Cardizem. 05/20: Discussed with the sales rep on 05/19. Amiodarone changed to oral after completion of IV drip. Titrate down the Cardizem drip. 1 dose of digoxin given patient having low BP, SBP in 90s. Mild hypokalemia and hypophosphatemia, electrolytes getting replaced. 05/21: Heart rate is better controlled. Try to taper off Cardizem. 05/22: Cardizem drip changed to Cardizem CD 120 mg twice daily. Wean off Cardizem drip. 05/23: Patient converted to sinus rhythm on 05/22. Cardizem CD discontinued. Heart rate in the 80s. 05/24: Went back into sinus tachycardia mainly due to acute hypoxic respiratory failure, pneumonia. Try to keep heart rate around 100/min, not to decrease enough to compromise/lower cardiac output. Cardiac output dependent on heart rate. Started back on Cardizem CD 120 twice daily with holding parameters. 3. Acute gastroenteritis probably due to COVID-19 complicated with hyponatremia, hypokalemia and hypochloremia: IV fluid normal saline. Monitor electrolytes. Diet initiated. Acute gastroenteritis resolved. Monitor electrolytes 05/23: No diarrhea. Hypophosphatemia, K5.1. Sodium 131. Started on Neutra-Phos for hypophosphatemia. Discontinue potassium supplement 05/24: Patient again having loose bowel movement. On Neutra-Phos. 4. Chronic smoker, possibility of COPD: Patient never evaluated for COPD. 5. Diabetes mellitus type 2: Accu-Chek insulin coverage with Humalog sliding scale. A1c tomorrow a.m. Hold metformin. 05/21: Glucose in 200s. A1c 5.9%. Hyperglycemia due to dexamethasone, corticosteroid. 05/22: Lantus 10 subcutaneous daily added to cover for hyperglycemia due to steroid 6. Debility due to arthritis, osteoporosis Total time of the visit including total time spent in counseling or coordination of care, (more than 50% of the total time, spent in obtaining medical information from nurses and other ancillary care providers,explaining to the patient about labs, imaging, diagnosis and management), discussion with consultants ID and communications associate, review of medical records, clinical update given to daughter near the bedside review of labs and imaging is 40 minutes. Laboratory Results 05/23/22 10:36: POC Glucose 216 H 05/23/22 16:25: POC Glucose 299 H 05/23/22 20:57: POC Glucose 249 H 05/24/22 05:27: Sodium 132 L, Potassium 4.7, Chloride 94 L, Carbon Dioxide 31.0, Anion Gap 7, BUN 21 H, Creatinine 0.50 L, Estim Creat Clear Calc 52.72, Est GFR (MDRD) Af Amer 156, Est GFR (MDRD) Non-Af 129, BUN/Creatinine Ratio 41.8 H, Glucose 217 H, Calcium 7.0 L, Total Bilirubin 0.60, AST 56 H, ALT 71 H, Alkaline Phosphatase 94, Total Protein 5.4 L, Albumin 2.0 L, Globulin 3.4, Albumin/Globulin Ratio 0.6 L 05/24/22 05:27: WBC 25.4 H, RBC 3.65 L, Hgb 10.7 L, Hct 32.5 L, MCV 89.0, MCH 29.3, MCHC 32.9, RDW Std Deviation 48.9 H, RDW Coeff of Palak 15.0 H, Plt Count 751 H*, MPV 9.5, Immature Gran % (Auto) 3.900 H, Neut % (Auto) 86.6 H, Lymph % (Auto) 3.9 L, [place] % (Auto) 5.4, Eos % (Auto) 0.0, Baso % (Auto) 0.2, Absolute Neuts (auto) 22.0 H, Absolute Lymphs (auto) 0.98, Nucleated RBC % 0, Differential Comment SCANNED, Diff Path Review May foll, Platelet Estimate [employer] Living will/advanced directive/end of life care: Patient does not have living will or advanced directive. Patient does not have designated power of corporate associate attorney for health. Her next to kin is her and daughter who is present in the room. After discussion of benefits/risks procedures involved with full code, DNR CC arrest and DNR CC, the patient opted for full code. Patient does want artificial life support including intubation, tube feed, ventilator and/chest compression, central venous catheter, vasopressor and DC shock if needed Total time spent in [id number] encounter in discussion of advanced directive 16 minutes. Charges/Coding Visit Charges Inpatient E&M: 61511 Subs Hosp L3
[2022-05-24 11:55] LABS: Bedside Glucose 208 mg/dL (74-106)
[2022-05-24] MEDS: Furosemide 40 MG/4 ML Vial IV (11:59)
[2022-05-24] MEDS: dexAMETHasone 10 MG/ML Vial 6 MG IV (12:00)
[2022-05-24] MEDS: 0.9% Saline Lock 10 ML Syringe IV ×2 (12:00→16:45)
[2022-05-24] MEDS: Pantoprazole Sodium 40 MG Tablet PO (12:01)
[2022-05-24] MEDS: guaiFENesin 1,200 MG Tablet 1200 MG PO (12:01)
[2022-05-24] MEDS: Amiodarone 200 MG Tablet PO ×2 (12:02→16:46)
[2022-05-24] MEDS: dilTIAZem CD 120 MG Capsule PO (12:02)
[2022-05-24] MEDS: APIXABAN 5 MG TABLET PO ×2 (12:05→19:54)
[2022-05-24] MEDS: Insulin Glargine-YFGN 100 UNIT/ML Pen 10 UNIT SC (12:12)
[2022-05-24] MEDS: Sodium Chloride 0.65% 1 SPRAY SPRAY.BTL NASAL (12:15)
--- NOTE | 2022-05-24 17:30 | NURSING ---
after lengthy disc w/pt and dtr, Davina STOUT was able to talk pt into wearing the bipap mask. 10min later, pt's dtr called out to say her mother is pulling off the mask. This RN in to pt room. Again, after lengthy disc pt screams she isnt going to wear it, I don't want to but I don;'t want to wear the mask. Disc all w/pt's dtr who remains present. See physician visit intervention. Pt's dtr called out to say, pt is agreeable to wearing the mask for 1 hour.
[2022-05-24 17:43] LABS: Allen Test POS; Blood Gas Specimen Type ART; SITE R BRACHIAL
[2022-05-24 17:44] LABS: FI02 45
[2022-05-24 17:45] LABS: Base Excess 8 mmol/L (-2 to +2); Bicarbonate 30.3 mmol/L (22-26); PO2 58 mmHG (75-100); SO2 93 % (95-99); Total Carbon Dioxide 31 mmol/L; pCO2 36.5 mmHg (35-45); pH 7.53 (7.35-7.45)
[2022-05-24 17:46] LABS: Mode AIRVO
[2022-05-24] MEDS: QUEtiapine 25 MG Tablet 50 MG PO (17:49)
[2022-05-24] MEDS: Atorvastatin Calcium 20 MG Tablet PO (19:54)
[2022-05-25] VITALS (22 sets, daily range): BP systolic 100–121; BP diastolic 57–81; PULSE 84–140; RESP 16–34; TEMP 35.8–36.7; O2SAT 89–96
[2022-05-25] MEDS: dilTIAZem CD 120 MG Capsule PO ×2 (00:10→11:40)
[2022-05-25 06:11] LABS: Absolute Lymphocyte Count 1.21 X10^3/uL (0.83-4.51); Basophil# 0.07 X10^3/uL; Basophil% 0.3 % (0-1); Hematocrit 34.3 % (37-47); Hemoglobin 11.6 g/dL (12.0-15.0); Lymphocyte # 1.21 X10^3/ul (0.83-4.51); Mean Corp Hgb Conc 33.8 g/dL (32-36); Mean Corpuscular Hgb 29.9 pg (27.0-32.0); Mean Corpuscular Volume 88.4 fL (81-99); Mean Platelet Vol. 9.5 fl (6.2-12.0); Monocyte# 1.19 X10^3/uL; Monocyte% 4.9 % (0-10); NRBC Flagged by Analyzer 0 % (0-5); Neutrophil # 20.96 X10^3/uL (2.7-7.7); Neutrophil % 86.9 % (47-70); POSITIVE COUNT YES; POSITIVE DIFFERENTIAL YES; RBC Distribution Width CV 14.8 % (11.6-14.6); RBC Distribution Width SD 47.7 fl (35.1-43.9); Red Blood Count 3.88 M/mm3 (4.2-5.4); White Blood Count 24.1 K/mm3 (4.4-11.0)
[2022-05-25 06:26] LABS: Differential Indicated SCAN CRITERIA MET
[2022-05-25 06:27] LABS: Platelet Count 767 K/mm3 (150-450)
[2022-05-25] MEDS: Insulin Lispro 100 UNIT/ML INSULN.PEN SC ×4 (06:36→20:46)
[2022-05-25 06:45] LABS: Differential Comment SCANNED
[2022-05-25] MEDS: Na Biphos/Potassium Phosphate PACKET 1 PACKET PO (06:46)
[2022-05-25 06:52] LABS: Anion Gap 8 (5-15); BUN 27 mg/dL (7-18); BUN/Creat Ratio 55.3 RATIO (10-20); Calcium,Total 7.6 mg/dL (8.5-10.1); Chloride 92 mmol/L (98-107); Creatinine, Serum 0.49 mg/dL (0.55-1.02); EST Glomerular Filtration Rate 133 mL/min (>60); Est Glom Filt Rate - Afr Amer 161 mL/min (>60); Estimated Creatinine Clearance 50.82 ml/min; Glucose 226 mg/dL (74-106); Potassium 3.9 mmol/L (3.5-5.1); Sodium Level 129 mmol/L (136-145)
--- NOTE | 2022-05-25 07:31 | PN.HOSP_ITS ---
Subjective Subjective Patient is a 72-year-old female with generalized weakness. She had apparently tested positive for COVID 19 4 days prior to her admission. Imaging studies obtained on admission demonstrated interstitial alveolar infiltrates in the right upper lobe in addition to consolidative changes in the right lung base. Patient also found to be single hypoxic on admission admitted to a monitored bed for further management Objective Data Objective Data Vital Signs: Vital Signs Temp Pulse Resp BP Pulse Ox O2 Del Method O2 Flow Rate 98.0 F 112 H 25 H 113/81 H 94 Airvo 40 05/25/22 05:00 05/25/22 07:19 05/25/22 07:19 05/25/22 05:00 05/25/22 07:19 05/25/22 05:00 05/25/22 05:00 FiO2 44 05/25/22 07:19 Oxygen Flow Rate (L/min) 40 Oxygen Delivery Method Airvo Weight: 61.5 kg Body Mass Index (BMI) 21.5 Intake & Output: Intake and Output for Last 24 Hours 05/23/22 05/24/22 05/25/22 23:59 23:59 23:59 Intake Total 950 / 950 355 / 355 Output Total 2500 / 2900 700 / 920 320 / 320 Balance -1550 / -1950 -345 / -565 -320 / -320 Lab / Micro Data Result Diagrams: 05/25/22 05:16 05/25/22 05:16 Labs: Laboratory Results - last 24 hr 05/24/22 06:35: POC Glucose 208 H 05/25/22 05:16: WBC 24.1 H, RBC 3.88 L, Hgb 11.6 L, Hct 34.3 L, MCV 88.4, MCH 29.9, MCHC 33.8, RDW Std Deviation 47.7 H, RDW Coeff of Palak 14.8 H, Plt Count 767 H*, MPV 9.5, Immature Gran % (Auto) 2.900 H, Neut % (Auto) 86.9 H, Lymph % (Auto) 5.0 L, [place] % (Auto) 4.9, Eos % (Auto) 0.0, Baso % (Auto) 0.3, Absolute Neuts (auto) 21.0 H, Absolute Lymphs (auto) 1.21, Nucleated RBC % 0, Differential Comment SCANNED, Diff Path Review February05/25/22 05:16: Sodium 129 L, Potassium 3.9, Chloride 92 L, Carbon Dioxide 29.0, Anion Gap 8, BUN 27 H, Creatinine 0.49 L, Estim Creat Clear Calc 50.82, Est GFR (MDRD) Af Amer 161, Est GFR (MDRD) Non-Af 133, BUN/Creatinine Ratio 55.3 H, Glucose 226 H, Calcium 7.6 L Micro: Microbiology 05/18/22 18:10 Blood Culture (Wb) - Anticubital Right Blood Culture - Final No growth in 5 days. 05/18/22 19:00 Blood Culture (Wb) - Anticubital Right Blood Culture - Final No growth in 5 days. 05/18/22 21:20 Urine, Clean Catch Streptococcus pneumoniae Antigen (M - Final 05/18/22 21:20 Urine, Clean Catch Legionella Antigen - Final Legionella Antigen 05/18/22 18:37 Nasal Secretion SARS-CoV-2 & FLU Antigen (Rapid) - Final ABG Data ABG results: ABG 05/24/22 17:07 Specimen Type ART Sample Site R BRACHIAL pH 7.53 H Bicarbonate Actual 30.3 H Total CO2 31 Base Excess 8 H O2 Saturation 93 L O2 % 45 ABG pCO2 36.5 ABG pO2 58 L Lakhwinder Test POS Vent Mode AIRVO Clinical Comments AIRVO 40l Rhythm Strip Rhythm Strip: A-fib Rate: 117 Ectopy: PVC(s) Physical Exam Narrative GENERAL: Frail looking, on Airvo HEENT: Atraumatic; EYES; Anicteric, Normal Conjunctiva NECK; supple, normal thyroid, RESPIRATORY: Diminished to auscultation CARDIOVASCULAR: Regular S1 S2, GI: soft, normoactive bowel sounds, : No Renal angle tenderness; EXTREMITIES: No edema, no clubbing, MUSCULOSKELETAL: no muscle wasting NEURO: Awake; no lateralizing signs. SKIN: No Rash PSYCH; Flat affect Assessment & Plan Assessment/Plan (1) Lobar pneumonia: (2) COVID-19: (3) Atrial fibrillation with rapid ventricular response: (4) Acute hyponatremia: (5) Acute hypokalemia: PLAN: Plan Patient is a 72-year-old female with generalized weakness. She had apparently tested positive for COVID 19 4 days prior to her admission. Imaging studies obtained on admission demonstrated interstitial alveolar infiltrates in the right upper lobe in addition to consolidative changes in the right lung base. Patient also found to be single hypoxic on admission admitted to a monitored bed for further management 1. Acute hypoxic respiratory failure ? Secondary to COVID-19 pneumonia with superimposed Legionella pneumonia. Admitted to a monitored bed managed with broad-spectrum antibiotic therapy with Rocephin and azithromycin in addition to remdesivir and Decadron with consultation placed to infectious disease. Patient did not receive tocilizumab in view of her underlying Legionella infection 2. New onset A. fib ? Thought to be precipitated by patient's underlying infection managed with drip when patient did experience rapid ventricular response subsequently switched to p.o. Cardizem. Patient also placed on amiodarone and systemic anticoagulation with apixaban 3. Acute gastroenteritis ? Thought to be viral gastroenteritis from COVID 19 manage symptomatically 4. Hypokalemia ? Corrected per protocol, With subsequent monitoring of electrolytes ordered 5. Hyponatremia ? Multifactorial including patient vaginalis pneumonia as well as losses from her gastroenteritis on IV fluid with monitoring of electrolytes 6. Diabetes mellitus type II -patient's oral hypoglycemics held. Placed on long acting insulin, Accu-Cheks a.c. and at bedtime and covered with sliding scale insulin 7. GERD ? On PPI 8. Osteoporosis ? Patient is on alendronate 9. Dyslipidemia -Patient is on statin therapy, continued at home dose 10. Tobacco dependence - Counseled on cessation, offered nicotine patch for tobacco cravings 11. DVT prophylaxis ? On apixaban Charges/Coding Visit Charges Inpatient E&M: 94944 Subs Hosp L2
--- NOTE | 2022-05-25 07:40 | PCM.PN.INT ---
Assessment & Plan Assessment/Plan (1) Atrial fibrillation with rapid ventricular response: (2) COVID-19: (3) Legionella pneumonia: (4) History of diabetes mellitus: PLAN: Plan RECOMMENDATIONS: 1. Encourage BiPAP as needed and nightly 2. Wean supplemental oxygen as tolerated 3. Continue challenge with diuretics 4. Defer antibiotics to infectious disease 5. Encourage better compliance with incentive spirometer and Acapella 6. Agree with Decadron for 10 days 7. Aggressive electrolyte supplementation if indicated IMPRESSIONS: 1. Acute hypoxic respiratory failure secondary to Legionella pneumonia/COVID-19/probable COPD Patient's respiratory status appears to have somewhat worsened. Patient is still requiring significant FiO2 to maintain saturations. Some concern for continued tachypnea leading to respiratory muscle fatigue. Patient has not been compliant with BiPAP leading to progressive hypoxia. Will continue to encourage BiPAP as needed to see if this will help with respiratory rate. Stressed to the patient that without BiPAP, intubation will be required with decompensation. Heart rate has been trending up. Patient is on adequate therapy for Legionella pneumonia. Clinical suspicion for improvement secondary to treatment of Legionella pneumonia more than COVID-19 or suspected COPD. Patient is receiving Decadron. Completed Remdesivir. Patient responded well to diuretics. We will continue to challenge as renal function allows as patient is still positive almost 6 L over the course of hospitalization. Some concern the patient continues to be at risk for intubation given noncompliance with recommendations including BiPAP, keeping Airvo in place and use of pulmonary toileting. Patient continues to have leukocytosis, but this may be secondary to Decadron. Patient is not showing any signs or symptoms of sepsis at this time. 2. New onset A. fib with RVR Patient appears to have responded well to amiodarone therapy. Very little background information is available from a cardiac standpoint. Echocardiogram was relatively unremarkable. Patient appears to be relatively rate controlled at this time when supplemental oxygen is left in place. Troponin is slightly elevated, but this is likely secondary to profound hypoxia secondary to problem #1. Patient does have a history of hyperlipidemia, advanced age and diabetes increasing risk for coronary artery disease. No complications to anticoagulation noted. Patient may require cardiac work-up once acute condition is resolved. 3. Acute gastroenteritis/chronic smoker/diabetes mellitus type 2/osteoporosis/osteoarthritis/advanced age Complicates care, management, recovery and prognosis. Patient is at risk for COPD given smoking history, but unable to confirm at this time. We will need to watch blood sugars closely given need for Decadron secondary to problem #1, but appears to be tolerating. Recommend limiting IV fluids as these has been shown to worsen respiratory failure and COVID-19. Subjective Subjective Patient continues to refuse BiPAP at night. Patient states that she has been using her incentive spirometer and Acapella, but is unable to make it function correctly. Patient has been using Airvo overnight and tolerating well. Patient remains in A. fib. Objective Data Objective Data Vital Signs: Vital Signs Temp Pulse Resp BP Pulse Ox O2 Del Method O2 Flow Rate 36.7 C 112 H 25 H 113/81 H 94 Airvo 40 05/25/22 05:00 05/25/22 07:19 05/25/22 07:19 05/25/22 05:00 05/25/22 07:19 05/25/22 05:00 05/25/22 05:00 FiO2 44 05/25/22 07:19 Oxygen Flow Rate (L/min) 40 Oxygen Delivery Method Airvo Weight: 61.5 kg Body Mass Index (BMI) 21.5 Intake & Output: Intake and Output for Last 24 Hours 05/23/22 05/24/22 05/25/22 23:59 23:59 23:59 Intake Total 950 / 950 355 / 355 Output Total 2500 / 2900 700 / 920 320 / 320 Balance -1550 / -1950 -345 / -565 -320 / -320 Lab / Micro Data Attestation: I reviewed the patient's lab results. Result Diagrams: 05/25/22 05:16 05/25/22 05:16 Labs: Laboratory Results - last 24 hr 05/24/22 06:35: POC Glucose 208 H 05/25/22 05:16: WBC 24.1 H, RBC 3.88 L, Hgb 11.6 L, Hct 34.3 L, MCV 88.4, MCH 29.9, MCHC 33.8, RDW Std Deviation 47.7 H, RDW Coeff of Palak 14.8 H, Plt Count 767 H*, MPV 9.5, Immature Gran % (Auto) 2.900 H, Neut % (Auto) 86.9 H, Lymph % (Auto) 5.0 L, [place] % (Auto) 4.9, Eos % (Auto) 0.0, Baso % (Auto) 0.3, Absolute Neuts (auto) 21.0 H, Absolute Lymphs (auto) 1.21, Nucleated RBC % 0, Differential Comment SCANNED, Diff Path Review February foll 05/25/22 05:16: Sodium 129 L, Potassium 3.9, Chloride 92 L, Carbon Dioxide 29.0, Anion Gap 8, BUN 27 H, Creatinine 0.49 L, Estim Creat Clear Calc 50.82, Est GFR (MDRD) Af Amer 161, Est GFR (MDRD) Non-Af 133, BUN/Creatinine Ratio 55.3 H, Glucose 226 H, Calcium 7.6 L Micro: Microbiology 05/18/22 18:10 Blood Culture (Wb) - Anticubital Right Blood Culture - Final No growth in 5 days. 05/18/22 19:00 Blood Culture (Wb) - Anticubital Right Blood Culture - Final No growth in 5 days. 05/18/22 21:20 Urine, Clean Catch Streptococcus pneumoniae Antigen (M - Final 05/18/22 21:20 Urine, Clean Catch Legionella Antigen - Final Legionella Antigen 05/18/22 18:37 Nasal Secretion SARS-CoV-2 & FLU Antigen (Rapid) - Final ABG Data ABG results: ABG 05/24/22 17:07 Specimen Type ART Sample Site R BRACHIAL pH 7.53 H Bicarbonate Actual 30.3 H Total CO2 31 Base Excess 8 H O2 Saturation 93 L O2 % 45 ABG pCO2 36.5 ABG pO2 58 L Lakhwinder Test POS Vent Mode AIRVO Clinical Comments AIRVO 40l Rhythm Strip Rhythm Strip: A-fib Rate: 117 Ectopy: PVC(s) Physical Exam Const alert, oriented x3 and no apparent distress Constitutional Narrative: Mild conversational dyspnea noted. Less dyspneic compared to yesterday. On Airvo General Appearance: Negative for in distress HEENT normocephalic and head/scalp atraumatic Eyes PERRL and EOMs intact bilaterally Eyes Narrative: Slight scleral injection Neck full ROM Chest inspection of chest normal Resp no use of accessory muscles Effort and Inspection: tachypneic, labored and uses accessory muscles Auscultation: wheezes and diminished lung sounds; Negative for rales or rhonchi Cardio regular rate, S1 normal heart sound, S2 normal heart sound, no murmurs, no rub and no gallops Rate: tachycardic Rhythm: abnormal rhythm irregularly irregular GI normal to inspection, nondistended, normoactive bowel sounds Extremity General Extremity: Negative for clubbing or edema Skin no rashes or lesions noted Neuro oriented x3, CN's II-XII intact bilaterally, moves all extremities and no focal motor deficits Psych cooperative and affect normal Charges/Coding Visit Charges Inpatient E&M: 31094 Subs Hosp L3
[2022-05-25] MEDS: APIXABAN 5 MG TABLET PO ×2 (09:58→20:47)
[2022-05-25] MEDS: guaiFENesin 1,200 MG Tablet 1200 MG PO ×2 (09:58→20:47)
[2022-05-25] MEDS: Furosemide 40 MG/4 ML Vial IV ×2 (09:59→16:50)
[2022-05-25] MEDS: dexAMETHasone 10 MG/ML Vial 6 MG IV (09:59)
[2022-05-25] MEDS: Amiodarone 200 MG Tablet PO ×3 (09:59→16:49)
[2022-05-25] MEDS: Pantoprazole Sodium 40 MG Tablet PO (09:59)
[2022-05-25] MEDS: Insulin Glargine-YFGN 100 UNIT/ML Pen 10 UNIT SC (10:00)
[2022-05-25] MEDS: Sodium Chloride 0.65% 1 SPRAY SPRAY.BTL NASAL (10:00)
[2022-05-25 12:05] LABS: Bedside Glucose 331 mg/dL (74-106)
[2022-05-25] MEDS: 0.9% Saline Lock 10 ML Syringe IV (16:50)
[2022-05-25 18:05] LABS: Bedside Glucose 273 mg/dL (74-106)
[2022-05-25] MEDS: Atorvastatin Calcium 20 MG Tablet PO (20:46)
[2022-05-25] MEDS: QUEtiapine 25 MG Tablet 50 MG PO (20:47)
[2022-05-25 21:16] LABS: Bedside Glucose 231 mg/dL (74-106)
[2022-05-26] VITALS (15 sets, daily range): BP systolic 102–114; BP diastolic 65–79; PULSE 85–114; RESP 20–24; TEMP 36.1–36.6; O2SAT 93–100
[2022-05-26 05:42] LABS: Absolute Lymphocyte Count 0.95 X10^3/uL (0.83-4.51); Absolute Neutrophil Count 25.1 X10^3/uL (2.0-7.7); Basophil# 0.07 X10^3/uL; Basophil% 0.3 % (0-1); Eosinophil# 0.01 X10^3/uL; Hematocrit 34.9 % (37-47); Hemoglobin 11.6 g/dL (12.0-15.0); Lymphocyte # 0.95 X10^3/ul (0.83-4.51); Lymphocyte % 3.4 % (19-41); Mean Corp Hgb Conc 33.2 g/dL (32-36); Mean Corpuscular Hgb 29.5 pg (27.0-32.0); Mean Corpuscular Volume 88.8 fL (81-99); Mean Platelet Vol. 9.7 fl (6.2-12.0); Monocyte# 1.25 X10^3/uL; Monocyte% 4.5 % (0-10); NRBC Flagged by Analyzer 0 % (0-5); Neutrophil # 25.05 X10^3/uL (2.7-7.7); Neutrophil % 89.5 % (47-70); POSITIVE DIFFERENTIAL YES; Platelet Count 749 K/mm3 (150-450); RBC Distribution Width CV 14.6 % (11.6-14.6); RBC Distribution Width SD 47.4 fl (35.1-43.9); Red Blood Count 3.93 M/mm3 (4.2-5.4)
[2022-05-26 05:52] LABS: Differential Indicated SCAN CRITERIA MET
[2022-05-26 06:12] LABS: Platelet Estimate MKD INC (ADEQ)
[2022-05-26 06:22] LABS: ALB/GLOB Ratio 0.5 RATIO (0.9-2.4); AST(SGOT) 38 U/L (15-37); Alanine Aminotransfer ALT/SGPT 62 U/L (13-56); Albumin, Serum 2.2 g/dL (3.2-5.0); Alkaline Phosphatase 103 U/L (45-117); Anion Gap 10 (5-15); BUN 34 mg/dL (7-18); BUN/Creat Ratio 55.5 RATIO (10-20); Calcium,Total 7.5 mg/dL (8.5-10.1); Chloride 90 mmol/L (98-107); Creatinine, Serum 0.61 mg/dL (0.55-1.02); EST Glomerular Filtration Rate 102 mL/min (>60); Est Glom Filt Rate - Afr Amer 124 mL/min (>60); Estimated Creatinine Clearance 49.58 ml/min; Globulin 4.3 g/dL (2.2-4.2); Glucose 188 mg/dL (74-106); Magnesium 2.5 mg/dL (1.6-2.6); Phosphorus 3.9 mg/dL (2.5-4.9); Potassium 3.4 mmol/L (3.5-5.1); Protein, Total 6.5 g/dL (6.4-8.2); Sodium Level 129 mmol/L (136-145)
[2022-05-26] MEDS: Insulin Lispro 100 UNIT/ML INSULN.PEN SC ×4 (06:29→22:40)
[2022-05-26 07:20] LABS: Bedside Glucose 206 mg/dL (74-106)
--- NOTE | 2022-05-26 07:20 | PCM.PN.INT ---
Assessment & Plan Assessment/Plan (1) COVID-19: PLAN: Plan RECOMMENDATIONS: 1. Wean oxygen to maintain saturations at or above 90%. 2. Continue Decadron to complete treatment course. 3. Intermittent use of diuretics to maintain euvolemic state. 4. Continue amiodarone and Eliquis as ordered. 5. Encourage incentive spirometer use and mobilize patient as tolerated. IMPRESSIONS: 1. Acute hypoxemic respiratory failure Appears secondary to COVID-19 with concurrent Legionella pneumonia in a patient at risk for obstructive lung disease. The patient has completed a treatment course of remdesivir. Plan to continue Decadron as ordered. She has completed a treatment course of antimicrobials. Plan to continue heated high flow oxygen and wean FiO2 for saturations greater than 90%. Intermittent use of diuretics can be considered to maintain euvolemic state. 2. New onset atrial fibrillation Continue current medical management including amiodarone and Eliquis. 3. Chronic tobacco dependency/diabetes mellitus/osteoarthritis/hyperlipidemia Complicates care, management, recovery and prognosis. Continue home medications as indicated. This note was generated with [employer] dictation software. It may contain incorrect words, spelling, and punctuation that were not noted in checking the note before signing. Subjective Subjective The patient was seen and examined at the bedside this morning. Events from the last 24 hours have been reviewed. The patient is currently afebrile, hemodynamically stable and maintaining appropriate oxygen saturations on Airvo heated high flow with an FiO2 requirement of 44% and flow rate of 40 L/min. The patient is currently documented to be overall net +6 L for the hospitalization. White count remains elevated at 20,000. Platelet count is elevated at 749,000. Potassium is low at 3.4. Objective Data Objective Data The patient's most recent lab work, culture data and imaging studies have all been personally reviewed. Surface echocardiogram completed on May 19 demonstrated normal LV size and function with an ejection fraction of 60%. Legionella antigen was positive on May 18. COVID PCR was positive on May 18. Vital Signs: Vital Signs Temp Pulse Resp BP Pulse Ox O2 Del Method O2 Flow Rate 97.4 F L 114 H 20 H 104/69 93 Airvo 40 05/26/22 04:00 05/26/22 06:45 05/26/22 06:45 05/26/22 04:00 05/26/22 06:45 05/26/22 06:45 05/26/22 06:45 FiO2 44 05/26/22 06:45 Oxygen Flow Rate (L/min) 40 Oxygen Delivery Method Airvo Weight: 132 lb 4.438 oz Body Mass Index (BMI) 21.5 Intake & Output: Intake and Output for Last 24 Hours 05/24/22 05/25/22 05/26/22 23:59 23:59 23:59 Intake Total 355 / 355 250 / 280 30 / 30 Output Total 700 / 920 520 / 1120 600 / 600 Balance -345 / -565 -270 / -840 -570 / -570 Lab / Micro Data Attestation: I reviewed the patient's lab results. Result Diagrams: 05/27/22 06:45 05/27/22 06:45 Labs: Laboratory Results - last 24 hr 05/25/22 11:37: POC Glucose 331 H 05/25/22 16:46: POC Glucose 273 H 05/25/22 20:23: POC Glucose 231 H 05/26/22 04:25: Sodium 129 L, Potassium 3.4 L, Chloride 90 L, Carbon Dioxide 29.0, Anion Gap 10, BUN 34 H, Creatinine 0.61, Estim Creat Clear Calc 49.58, Est GFR (MDRD) Af Amer 124, Est GFR (MDRD) Non-Af 102, BUN/Creatinine Ratio 55.5 H, Glucose 188 H, Calcium 7.5 L, Phosphorus 3.9, Magnesium 2.5, Total Bilirubin 0.80, AST 38 H, ALT 62 H, Alkaline Phosphatase 103, Total Protein 6.5, Albumin 2.2 L, Globulin 4.3 H, Albumin/Globulin Ratio 0.5 L 05/26/22 04:25: WBC 28.0 H, RBC 3.93 L, Hgb 11.6 L, Hct 34.9 L, MCV 88.8, MCH 29.5, MCHC 33.2, RDW Std Deviation 47.4 H, RDW Coeff of Palak 14.6, Plt Count 749 H, MPV 9.7, Immature Gran % (Auto) 2.300 H, Neut % (Auto) 89.5 H, Lymph % (Auto) 3.4 L, [place] % (Auto) 4.5, Eos % (Auto) 0.0, Baso % (Auto) 0.3, Absolute Neuts (auto) 25.1 H, Absolute Lymphs (auto) 0.95, Nucleated RBC % 0, Platelet Estimate MKD INC Micro: Microbiology 05/18/22 18:10 Blood Culture (Wb) - Anticubital Right Blood Culture - Final No growth in 5 days. 05/18/22 19:00 Blood Culture (Wb) - Anticubital Right Blood Culture - Final No growth in 5 days. 05/18/22 21:20 Urine, Clean Catch Streptococcus pneumoniae Antigen (M - Final 05/18/22 21:20 Urine, Clean Catch Legionella Antigen - Final Legionella Antigen 05/18/22 18:37 Nasal Secretion SARS-CoV-2 & FLU Antigen (Rapid) - Final Rhythm Strip Rhythm Strip: A-fib Rate: 117 Ectopy: PVC(s) Physical Exam Const alert and no apparent distress General Appearance: cooperative HEENT normocephalic and head/scalp atraumatic Eyes PERRL, EOMs intact bilaterally and conjunctivae normal Neck supple General: trachea midline Chest inspection of chest normal Resp Effort and Inspection: tachypneic Auscultation: diminished lung sounds Cardio S1 normal heart sound and S2 normal heart sound Rate: tachycardic GI normal to inspection, nondistended, normoactive bowel sounds Extremity no clubbing, cyanosis or edema Skin no rashes or lesions noted Neuro CN's II-XII intact bilaterally, moves all extremities and no focal motor deficits Psych cooperative and affect normal Charges/Coding Visit Charges Inpatient E&M: 05460 Subs Hosp L3
--- NOTE | 2022-05-26 07:39 | PN.HOSP_ITS ---
Subjective Subjective Patient seen still remains on high flow oxygen. She thinks her overall condition is improving Objective Data Objective Data Vital Signs: Vital Signs Temp Pulse Resp BP Pulse Ox O2 Del Method O2 Flow Rate 97.4 F L 114 H 20 H 104/69 93 Airvo 40 05/26/22 04:00 05/26/22 06:45 05/26/22 06:45 05/26/22 04:00 05/26/22 06:45 05/26/22 06:45 05/26/22 06:45 FiO2 44 05/26/22 06:45 Oxygen Flow Rate (L/min) 40 Oxygen Delivery Method Airvo Weight: 60 kg Body Mass Index (BMI) 21.5 Intake & Output: Intake and Output for Last 24 Hours 05/24/22 05/25/22 05/26/22 23:59 23:59 23:59 Intake Total 355 / 355 250 / 280 30 / 30 Output Total 700 / 920 520 / 1120 600 / 600 Balance -345 / -565 -270 / -840 -570 / -570 Lab / Micro Data Result Diagrams: 05/26/22 04:25 05/26/22 04:25 Labs: Laboratory Results - last 24 hr 05/25/22 11:37: POC Glucose 331 H 05/25/22 16:46: POC Glucose 273 H 05/25/22 20:23: POC Glucose 231 H 05/26/22 04:25: Sodium 129 L, Potassium 3.4 L, Chloride 90 L, Carbon Dioxide 29.0, Anion Gap 10, BUN 34 H, Creatinine 0.61, Estim Creat Clear Calc 49.58, Est GFR (MDRD) Af Amer 124, Est GFR (MDRD) Non-Af 102, BUN/Creatinine Ratio 55.5 H, Glucose 188 H, Calcium 7.5 L, Phosphorus 3.9, Magnesium 2.5, Total Bilirubin 0.80, AST 38 H, ALT 62 H, Alkaline Phosphatase 103, Total Protein 6.5, Albumin 2 .2 L, Globulin 4.3 H, Albumin/Globulin Ratio 0.5 L 05/26/22 04:25: WBC 28.0 H, RBC 3.93 L, Hgb 11.6 L, Hct 34.9 L, MCV 88.8, MCH 29.5, MCHC 33.2, RDW Std Deviation 47.4 H, RDW Coeff of Palak 14.6, Plt Count 749 H, MPV 9.7, Immature Gran % (Auto) 2.300 H, Neut % (Auto) 89.5 H, Lymph % (Auto) 3.4 L, [place] % (Auto) 4.5, Eos % (Auto) 0.0, Baso % (Auto) 0.3, Absolute Neuts (auto) 25.1 H, Absolute Lymphs (auto) 0.95, Nucleated RBC % 0, Platelet Estimate MKD INC 05/26/22 06:28: POC Glucose 206 H Micro: Microbiology 05/18/22 18:10 Blood Culture (Wb) - Anticubital Right Blood Culture - Final No growth in 5 days. 05/18/22 19:00 Blood Culture (Wb) - Anticubital Right Blood Culture - Final No growth in 5 days. 05/18/22 21:20 Urine, Clean Catch Streptococcus pneumoniae Antigen (M - Final 05/18/22 21:20 Urine, Clean Catch Legionella Antigen - Final Legionella Antigen 05/18/22 18:37 Nasal Secretion SARS-CoV-2 & FLU Antigen (Rapid) - Final Rhythm Strip Rhythm Strip: A-fib Rate: 117 Ectopy: PVC(s) Physical Exam Narrative GENERAL: Frail looking, on Airvo HEENT: Atraumatic; EYES; Anicteric, Normal Conjunctiva NECK; supple, normal thyroid, RESPIRATORY: Diminished to auscultation CARDIOVASCULAR: Regular S1 S2, GI: soft, normoactive bowel sounds, : No Renal angle tenderness; EXTREMITIES: No edema, no clubbing, MUSCULOSKELETAL: no muscle wasting NEURO: Awake; no lateralizing signs. SKIN: No Rash PSYCH; Flat affect Assessment & Plan Assessment/Plan (1) Lobar pneumonia: (2) COVID-19: (3) Atrial fibrillation with rapid ventricular response: (4) Acute hyponatremia: (5) Acute hypokalemia: PLAN: Plan Patient is a 72-year-old female with generalized weakness. She had apparently tested positive for COVID 19 4 days prior to her admission. Imaging studies obtained on admission demonstrated interstitial alveolar infiltrates in the right upper lobe in addition to consolidative changes in the right lung base. Patient also found to be single hypoxic on admission admitted to a monitored bed for further management 1. Acute hypoxic respiratory failure ? Secondary to COVID-19 pneumonia with superimposed Legionella pneumonia. Admitted to a monitored bed managed with broad-spectrum antibiotic therapy with Rocephin and azithromycin in addition to remdesivir and Decadron with co nsultation placed to infectious disease. Patient did not receive tocilizumab in view of her underlying Legionella infection ? 05/26/2022. Patient still has significant hypoxia and is on Airvo. Plan is to try to wean off to nasal cannula. Still has significant leukocytosis possibly related to her underlying steroid use. 2. New onset A. fib ? Thought to be precipitated by patient's underlying infection managed with drip when patient did experience rapid ventricular response subsequently switched to p.o. Cardizem. Patient also placed on amiodarone and systemic anticoagulation with apixaban 3. Acute gastroenteritis ? Thought to be viral gastroenteritis from COVID 19 manage symptomatically 4. Hypokalemia ? Corrected per protocol, With subsequent monitoring of electrolytes ordered 5. Hyponatremia ? Multifactorial including patient vaginalis pneumonia as well as losses from her gastroenteritis on IV fluid with monitoring of electrolytes 6. Diabetes mellitus type II -patient's oral hypoglycemics held. Placed on long acting insulin, Accu-Cheks a.c. and at bedtime and covered with sliding scale insulin 7. GERD ? On PPI 8. Osteoporosis ? Patient is on alendronate 9. Dyslipidemia -Patient is on statin therapy, continued at home dose 10. Tobacco dependence - Counseled on cessation, offered nicotine patch for tobacco cravings 11. DVT prophylaxis ? On apixaban Charges/Coding Visit Charges Inpatient E&M: 67847 Subs Hosp L2
[2022-05-26] MEDS: dilTIAZem CD 120 MG Capsule PO ×2 (08:29→22:36)
[2022-05-26] MEDS: Pantoprazole Sodium 40 MG Tablet PO (08:29)
[2022-05-26] MEDS: Amiodarone 200 MG Tablet PO ×3 (08:29→16:06)
[2022-05-26] MEDS: dexAMETHasone 10 MG/ML Vial 6 MG IV (08:30)
[2022-05-26] MEDS: guaiFENesin 1,200 MG Tablet 1200 MG PO ×2 (08:30→22:36)
[2022-05-26] MEDS: APIXABAN 5 MG TABLET PO ×2 (08:30→22:36)
[2022-05-26] MEDS: Insulin Glargine-YFGN 100 UNIT/ML Pen 10 UNIT SC (10:42)
[2022-05-26 11:05] LABS: Bedside Glucose 237 mg/dL (74-106)
[2022-05-26 11:58] LABS: Pathologist Review Reviewed
[2022-05-26 11:59] LABS: Pathologist Review Reviewed
--- NOTE | 2022-05-26 14:01 | NURSING ---
Pt refuses to get up to recliner/OOB with physical therapy. This nurse encouraged and prepared pt earlier today that PT will be likely working with her and to get OOB in order to help her lungs expand and make breathing easier. Pt states she understood. Pt educated by PT that she needs to get OOB in order for her lungs to improve. Pt refuses. Pt remains resting in bed on 12 L [place]
[2022-05-26 16:30] LABS: Bedside Glucose 233 mg/dL (74-106)
[2022-05-26] MEDS: Atorvastatin Calcium 20 MG Tablet PO (22:36)
[2022-05-26] MEDS: QUEtiapine 25 MG Tablet 50 MG PO (22:36)
[2022-05-26] MEDS: Sodium Chloride 0.65% 1 SPRAY SPRAY.BTL NASAL (22:39)
[2022-05-27] VITALS (12 sets, daily range): BP systolic 97–116; BP diastolic 64–84; PULSE 80–112; RESP 18–24; TEMP 36.2–36.8; O2SAT 93–96
[2022-05-27 01:40] LABS: Bedside Glucose 262 mg/dL (74-106)
--- NOTE | 2022-05-27 03:00 | NURSING ---
Pt on AirVo, saturations 98-99% on 60 FiO2. This RN FiO2 to 50, pt saturations 97%.
--- NOTE | 2022-05-27 03:02 | CPS ---
Pt was on 12 HFNC Pt has stuffy nose, needs encouraged to use saline and lavage it. Started Pt on her Airvo again due to drop in spo2. 40L 60% RN aware
[2022-05-27] MEDS: Insulin Lispro 100 UNIT/ML INSULN.PEN SC ×4 (06:43→22:34)
[2022-05-27 07:05] LABS: Bedside Glucose 178 mg/dL (74-106)
[2022-05-27 07:19] LABS: Absolute Lymphocyte Count 1.06 X10^3/uL (0.83-4.51); Absolute Neutrophil Count 30.8 X10^3/uL (2.0-7.7); Basophil# 0.06 X10^3/uL; Basophil% 0.2 % (0-1); Hematocrit 35.9 % (37-47); Hemoglobin 11.7 g/dL (12.0-15.0); Lymphocyte # 1.06 X10^3/ul (0.83-4.51); Lymphocyte % 3.1 % (19-41); Mean Corp Hgb Conc 32.6 g/dL (32-36); Mean Corpuscular Hgb 28.9 pg (27.0-32.0); Mean Corpuscular Volume 88.6 fL (81-99); Mean Platelet Vol. 9.5 fl (6.2-12.0); Monocyte# 1.25 X10^3/uL; Monocyte% 3.7 % (0-10); NRBC Flagged by Analyzer 0 % (0-5); Neutrophil # 30.77 X10^3/uL (2.7-7.7); Neutrophil % 90.9 % (47-70); POSITIVE COUNT YES; POSITIVE DIFFERENTIAL YES; Platelet Count 695 K/mm3 (150-450); RBC Distribution Width CV 14.6 % (11.6-14.6); RBC Distribution Width SD 46.5 fl (35.1-43.9); Red Blood Count 4.05 M/mm3 (4.2-5.4)
[2022-05-27 07:26] LABS: Differential Indicated SCAN CRITERIA MET
--- NOTE | 2022-05-27 07:44 | PN.HOSP_ITS ---
Subjective Subjective Patient seen WBC count trending up. Still remains on Airvo, was briefly placed on nasal cannula and had to be placed back on Airvo. Plan is to try to wean patient Airvo and place on oxygen via nasal cannula Objective Data Objective Data Vital Signs: Vital Signs Temp Pulse Resp BP Pulse Ox O2 Del Method O2 Flow Rate 97.2 F L 84 20 H 107/64 96 Airvo 40 05/27/22 04:00 05/27/22 04:00 05/27/22 04:00 05/27/22 04:00 05/27/22 04:00 05/27/22 04:00 05/27/22 04:00 FiO2 50 05/27/22 04:00 Oxygen Flow Rate (L/min) 40 Oxygen Delivery Method Airvo Weight: 59.8 kg Body Mass Index (BMI) 21.5 Intake & Output: Intake and Output for Last 24 Hours 05/25/22 05/26/22 05/27/22 23:59 23:59 23:59 Intake Total 250 / 280 380 / 380 Output Total 520 / 1120 1000 / 1000 100 / 100 Balance -270 / -840 -620 / -620 -100 / -100 Lab / Micro Data Result Diagrams: 05/27/22 06:45 05/27/22 06:45 Labs: Laboratory Results - last 24 hr 05/24/22 05:27: Diff Path Review Reviewed 05/25/22 05:16: Diff Path Review Reviewed 05/26/22 10:39: POC Glucose 237 H 05/26/22 16:05: POC Glucose 233 H 05/26/22 22:33: POC Glucose 262 H 05/27/22 06:41: POC Glucose 178 H 05/27/22 06:45: WBC 33.9 H*, RBC 4.05 L, Hgb 11.7 L, Hct 35.9 L, MCV 88.6, MCH 28.9, MCHC 32.6, RDW Std Deviation 46.5 H, RDW Coeff of Palak 14.6, Plt Count 695 H, MPV 9.5, Immature Gran % (Auto) 2.100 H, Neut % (Auto) 90.9 H, Lymph % (Auto) 3.1 L, [place] % (Auto) 3.7, Eos % (Auto) 0.0, Baso % (Auto) 0.2, Absolute Neuts (auto) 30.8 H, Absolute Lymphs (auto) 1.06, Nucleated RBC % 0 Micro: Microbiology 05/18/22 18:10 Blood Culture (Wb) - Anticubital Right Blood Culture - Final No growth in 5 days. 05/18/22 19:00 Blood Culture (Wb) - Anticubital Right Blood Culture - Final No growth in 5 days. 05/18/22 21:20 Urine, Clean Catch Streptococcus pneumoniae Antigen (M - Final 05/18/22 21:20 Urine, Clean Catch Legionella Antigen - Final Legionella Antigen 05/18/22 18:37 Nasal Secretion SARS-CoV-2 & FLU Antigen (Rapid) - Final Rhythm Strip Rhythm Strip: A-fib Rate: 117 Ectopy: PVC(s) Physical Exam Narrative GENERAL: Frail looking, on Airvo HEENT: Atraumatic; EYES; Anicteric, Normal Conjunctiva NECK; supple, normal thyroid, RESPIRATORY: Diminished to auscultation CARDIOVASCULAR: Regular S1 S2, GI: soft, normoactive bowel sounds, : No Renal angle tenderness; EXTREMITIES: No edema, no clubbing, MUSCULOSKELETAL: no muscle wasting NEURO: Awake; no lateralizing signs. SKIN: No Rash PSYCH; Flat affect Assessment & Plan Assessment/Plan (1) Lobar pneumonia: (2) COVID-19: (3) Atrial fibrillation with rapid ventricular response: (4) Acute hyponatremia: (5) Acute hypokalemia: PLAN: Plan Patient is a 72-year-old female with generalized weakness. She had apparently tested positive for COVID 19 4 days prior to her admission. Imaging studies obtained on admission demonstrated interstitial alveolar infiltrates in the right upper lobe in addition to consolidative changes in the right lung base. Patient also found to be single hypoxic on admission admitted to a monitored bed for further management 1. Acute hypoxic respiratory failure ? Secondary to COVID-19 pneumonia with superimposed Legionella pneumonia. Admitted to a monitored bed managed with broad-spectrum antibiotic therapy with Rocephin and azithromycin in addition to remdesivir and Decadron with consultation placed to infectious disease. Patient did not receive tocilizumab in view of her underlying Legionella infection ? 05/26/2022. Patient still has significant hypoxia and is on Airvo. Plan is to try to wean off to nasal cannula. Still has significant leukocytosis possibly related to her underlying steroid use. -05/27/2022 Patient seen WBC count trending up. Still remains on Airvo, was briefly placed on nasal cannula and had to be placed back on Airvo. Plan is to try to wean patient Airvo and place on oxygen via nasal cannula 2. New onset A. fib ? Thought to be precipitated by patient's underlying infection managed with drip when patient did experience rapid ventricular response subsequently switched to p.o. Cardizem. Patient also placed on amiodarone and systemic anticoagulation with apixaban 3. Acute gastroenteritis ? Thought to be viral gastroenteritis from COVID 19 manage symptomatically 4. Hypokalemia ? Corrected per protocol, With subsequent monitoring of electrolytes ordered 5. Hyponatremia ? Multifactorial including patient vaginalis pneumonia as well as losses from her gastroenteritis on IV fluid with monitoring of electrolytes 6. Diabetes mellitus type II -patient's oral hypoglycemics held. Placed on long acting insulin, Accu-Cheks a.c. and at bedtime and covered with sliding scale insulin 7. GERD ? On PPI 8. Osteoporosis ? Patient is on alendronate 9. Dyslipidemia -Patient is on statin therapy, continued at home dose 10. Tobacco dependence - Counseled on cessation, offered nicotine patch for tobacco cravings 11. DVT prophylaxis ? On apixaban Charges/Coding Visit Charges Inpatient E&M: 64514 Subs Hosp L2
[2022-05-27 07:52] LABS: Platelet Estimate MOD INC (ADEQ)
[2022-05-27 07:54] LABS: White Blood Count 33.9 K/mm3 (4.4-11.0)
[2022-05-27 07:56] LABS: ALB/GLOB Ratio 0.5 RATIO (0.9-2.4); AST(SGOT) 27 U/L (15-37); Alanine Aminotransfer ALT/SGPT 47 U/L (13-56); Albumin, Serum 2.2 g/dL (3.2-5.0); Alkaline Phosphatase 108 U/L (45-117); Anion Gap 9 (5-15); BUN 41 mg/dL (7-18); BUN/Creat Ratio 65.7 RATIO (10-20); Calcium,Total 8.2 mg/dL (8.5-10.1); Chloride 93 mmol/L (98-107); Creatinine, Serum 0.62 mg/dL (0.55-1.02); EST Glomerular Filtration Rate 100 mL/min (>60); Est Glom Filt Rate - Afr Amer 121 mL/min (>60); Estimated Creatinine Clearance 49.42 ml/min; Globulin 4.5 g/dL (2.2-4.2); Glucose 178 mg/dL (74-106); Potassium 3.4 mmol/L (3.5-5.1); Protein, Total 6.7 g/dL (6.4-8.2); Sodium Level 132 mmol/L (136-145)
--- NOTE | 2022-05-27 10:00 | NURSING ---
Patient to remain in COVID isolation for total of 21 days from positive test result after discussion with Mariana Nazario, infectious disease
[2022-05-27] MEDS: guaiFENesin 1,200 MG Tablet 1200 MG PO ×2 (10:07→22:32)
[2022-05-27] MEDS: APIXABAN 5 MG TABLET PO ×2 (10:07→22:33)
[2022-05-27] MEDS: dilTIAZem CD 120 MG Capsule PO ×2 (10:07→22:33)
[2022-05-27] MEDS: Pantoprazole Sodium 40 MG Tablet PO (10:07)
[2022-05-27] MEDS: Amiodarone 200 MG Tablet PO ×3 (10:07→17:33)
[2022-05-27] MEDS: Insulin Glargine-YFGN 100 UNIT/ML Pen 10 UNIT SC (10:07)
[2022-05-27] MEDS: dexAMETHasone 10 MG/ML Vial 6 MG IV (10:07)
--- NOTE | 2022-05-27 11:25 | PN.CC_ITS ---
Assessment & Plan Assessment/Plan (1) COVID-19: PLAN: Plan RECOMMENDATIONS: 1. Wean oxygen to maintain saturations at or above 90%. 2. Continue Decadron to complete treatment course. 3. Start scheduled IV Lasix today. 4. Transition from PRN to scheduled bronchodilators. 5. Continue amiodarone and Eliquis as ordered. 6. Encourage incentive spirometer use and mobilize patient as tolerated. 7. Obtain follow-up chest x-ray. IMPRESSIONS: 1. Acute hypoxemic respiratory failure Appears secondary to COVID-19 with concurrent Legionella pneumonia in a patient at risk for obstructive lung disease. The patient has completed a treatment course of remdesivir. Plan to continue Decadron as ordered. She has completed a treatment course of antimicrobials as well. Plan to continue heated high flow oxygen and wean FiO2 for saturations greater than 90%. She will again be placed back on scheduled diuretics today. In addition, her bronchodilators will be changed from as needed to scheduled. Repeat chest x-ray will be obtained. 2. New onset atrial fibrillation Continue current medical management including amiodarone and Eliquis. 3. Chronic tobacco dependency/diabetes mellitus/osteoarthritis/hyperlipidemia Complicates care, management, recovery and prognosis. Continue home medications as indicated. This note was generated with [employer] dictation software. It may contain incorrect words, spelling, and punctuation that were not noted in checking the note before signing. Subjective Subjective The patient was seen and examined at the bedside this morning. Events from the last 24 hours have been reviewed. The patient is currently afebrile, hemodynamically stable and maintaining appropriate oxygen saturations on Airvo heated high flow with an FiO2 of 60%. The patient is documented to be overall net +6.1 L for the hospitalization. White count continues to rise. Potassium is low at 3.4. Creatinine is within normal limits. She remains on Eliquis and Decadron. Objective Data Objective Data The patient's most recent lab work, culture data and imaging studies have all been personally reviewed. Surface echocardiogram completed on May 19 demonstrated normal LV size and function with an ejection fraction of 60%. Legionella antigen was positive on May 18. COVID PCR was positive on May 18. Vital Signs: Vital Signs Temp Pulse Resp BP Pulse Ox O2 Del Method O2 Flow Rate 98.2 F 110 H 20 H 116/84 H 95 Airvo 40 05/27/22 10:00 05/27/22 10:00 05/27/22 10:00 05/27/22 10:00 05/27/22 10:00 05/27/22 10:00 05/27/22 04:00 FiO2 60 05/27/22 07:24 Oxygen Flow Rate (L/min) 40 Oxygen Delivery Method Airvo Weight: 131 lb 13.383 oz Body Mass Index (BMI) 21.5 Intake & Output: Intake and Output for Last 24 Hours 05/25/22 05/26/22 05/27/22 23:59 23:59 23:59 Intake Total 250 / 280 380 / 380 Output Total 520 / 1120 1000 / 1000 100 / 100 Balance -270 / -840 -620 / -620 -100 / -100 Lab / Micro Data Attestation: I reviewed the patient's lab results. Result Diagrams: 05/27/22 06:45 05/27/22 06:45 Labs: Laboratory Results - last 24 hr 05/24/22 05:27: Diff Path Review Reviewed 05/25/22 05:16: Diff Path Review Reviewed 05/26/22 16:05: POC Glucose 233 H 05/26/22 22:33: POC Glucose 262 H 05/27/22 06:41: POC Glucose 178 H 05/27/22 06:45: WBC 33.9 H*, RBC 4.05 L, Hgb 11.7 L, Hct 35.9 L, MCV 88.6, MCH 28.9, MCHC 32.6, RDW Std Deviation 46.5 H, RDW Coeff of Palak 14.6, Plt Count 695 H, MPV 9.5, Immature Gran % (Auto) 2.100 H, Neut % (Auto) 90.9 H, Lymph % (Auto) 3.1 L, [place] % (Auto) 3.7, Eos % (Auto) 0.0, Baso % (Auto) 0.2, Absolute Neuts (auto) 30.8 H, Absolute Lymphs (auto) 1.06, Nucleated RBC % 0, Diff Path Review May , Platelet Estimate MOD INC 05/27/22 06:45: Sodium 132 L, Potassium 3.4 L, Chloride 93 L, Carbon Dioxide 30.0, Anion Gap 9, BUN 41 H, Creatinine 0.62, Estim Creat Clear Calc 49.42, Est GFR (MDRD) Af Amer 121, Est GFR (MDRD) Non-Af 100, BUN/Creatinine Ratio 65.7 H, Glucose 178 H, Calcium 8.2 L, Total Bilirubin 0.70, AST 27, ALT 47, Alkaline Phosphatase 108, Total Protein 6.7, Albumin 2.2 L, Globulin 4.5 H, Albumin/Globulin Ratio 0.5 L Micro: Microbiology 05/26/22 16:10 Sputum, Expectorated/Coughed Respiratory Culture - Preliminary Appears to be normal respiratory desmond. Further studies to follow. 05/18/22 18:10 Blood Culture (Wb) - Anticubital Right Blood Culture - Final No growth in 5 days. 05/18/22 19:00 Blood Culture (Wb) - Anticubital Right Blood Culture - Final No growth in 5 days. 05/18/22 21:20 Urine, Clean Catch Streptococcus pneumoniae Antigen (M - Final 05/18/22 21:20 Urine, Clean Catch Legionella Antigen - Final Legionella Antigen 05/18/22 18:37 Nasal Secretion SARS-CoV-2 & FLU Antigen (Rapid) - Final Rhythm Strip Rhythm Strip: A-fib Rate: 117 Ectopy: PVC(s) Physical Exam Const alert and no apparent distress General Appearance: cooperative HEENT normocephalic and head/scalp atraumatic Eyes PERRL, EOMs intact bilaterally and conjunctivae normal Neck supple General: trachea midline Chest inspection of chest normal Resp Effort and Inspection: tachypneic Auscultation: diminished lung sounds Cardio S1 normal heart sound and S2 normal heart sound Rate: tachycardic GI normal to inspection, nondistended, normoactive bowel sounds Extremity no clubbing, cyanosis or edema Skin no rashes or lesions noted Neuro CN's II-XII intact bilaterally, moves all extremities and no focal motor deficits Psych cooperative and affect normal Charges/Coding Visit Charges Inpatient E&M: 61571 Subs Hosp L3
--- NOTE | 2022-05-27 11:31 | RAD_ITS ---
STUDY: X-RAY CHEST REASON FOR EXAM: Female, 72 years old. Respiratory Failure TECHNIQUE: Single AP portable view of the chest. COMPARISON: Comparison is made with prior study dated 05/18/2022. FINDINGS: EKG electrodes are seen. Mild residual right upper lobe infiltrate. New infiltrate in the left lower lobe. Stable increased markings at the right lung base. Hyperinflation. There is no demonstrated pleural abnormality. Normal size heart. Normal mediastinum and ann. Normal visualized pulmonary arteries. There is atherosclerotic calcification of the aortic arch with tortuosity. There is a levoscoliosis of the thoracic spine. Normal visualized ribs, clavicles, and shoulders. There is no demonstrated abnormality of the visualized soft tissue structures of the upper abdomen. RAD/Chest 1 View (Portable) IMPRESSION: Hyperinflation. New left lower lobe infiltrate. Improved aeration of the right upper lobe and right lower lobe. Electronically Signed: Paul Moctezuma MD at 12:58 EDT ,
[2022-05-27 11:55] LABS: Bedside Glucose 284 mg/dL (74-106)
[2022-05-27 13:05] LABS: Pathologist Review Reviewed
[2022-05-27] MEDS: Furosemide 40 MG/4 ML Vial IV (13:36)
[2022-05-27] MEDS: Ipratropium/Albuterol Sulfate 3 ML AMPUL.NEB INHALATION (15:05)
[2022-05-27 18:00] LABS: Bedside Glucose 265 mg/dL (74-106)
[2022-05-27] MEDS: QUEtiapine 25 MG Tablet 50 MG PO (22:32)
[2022-05-27] MEDS: Atorvastatin Calcium 20 MG Tablet PO (22:33)
[2022-05-27] MEDS: Sodium Chloride 0.65% 1 SPRAY SPRAY.BTL NASAL (22:34)
[2022-05-27 23:00] LABS: Bedside Glucose 302 mg/dL (74-106)
[2022-05-28] VITALS (17 sets, daily range): BP systolic 88–113; BP diastolic 59–79; PULSE 69–93; RESP 18–24; TEMP 36.4–36.6; O2SAT 92–96
--- NOTE | 2022-05-28 02:39 | NURSING ---
Pt saturations have been 95% on 6L HFNC. Pt weaned to 5L HFNC, saturations continuing to be 94-95%.
[2022-05-28 04:43] LABS: Absolute Lymphocyte Count 0.82 X10^3/uL (0.83-4.51); Absolute Neutrophil Count 31.9 X10^3/uL (2.0-7.7); Basophil# 0.06 X10^3/uL; Basophil% 0.2 % (0-1); Hematocrit 33.6 % (37-47); Hemoglobin 11.5 g/dL (12.0-15.0); Lymphocyte # 0.82 X10^3/ul (0.83-4.51); Lymphocyte % 2.4 % (19-41); Mean Corp Hgb Conc 34.2 g/dL (32-36); Mean Corpuscular Hgb 29.5 pg (27.0-32.0); Mean Corpuscular Volume 86.2 fL (81-99); Mean Platelet Vol. 9.7 fl (6.2-12.0); Monocyte# 1.07 X10^3/uL; Monocyte% 3.1 % (0-10); NRBC Flagged by Analyzer 0 % (0-5); Neutrophil # 31.94 X10^3/uL (2.7-7.7); Neutrophil % 92.9 % (47-70); POSITIVE COUNT YES; POSITIVE DIFFERENTIAL YES; Platelet Count 631 K/mm3 (150-450); RBC Distribution Width CV 14.4 % (11.6-14.6); RBC Distribution Width SD 45.2 fl (35.1-43.9); White Blood Count 34.4 K/mm3 (4.4-11.0)
[2022-05-28 04:51] LABS: Differential Indicated SCAN CRITERIA MET
[2022-05-28 05:10] LABS: Platelet Estimate MKD INC (ADEQ)
[2022-05-28 05:21] LABS: ALB/GLOB Ratio 0.5 RATIO (0.9-2.4); AST(SGOT) 23 U/L (15-37); Alanine Aminotransfer ALT/SGPT 41 U/L (13-56); Albumin, Serum 2.2 g/dL (3.2-5.0); Alkaline Phosphatase 110 U/L (45-117); Anion Gap 8 (5-15); BUN 36 mg/dL (7-18); BUN/Creat Ratio 60.2 RATIO (10-20); Chloride 90 mmol/L (98-107); EST Glomerular Filtration Rate 105 mL/min (>60); Est Glom Filt Rate - Afr Amer 128 mL/min (>60); Estimated Creatinine Clearance 49.42 ml/min; Globulin 4.7 g/dL (2.2-4.2); Glucose 206 mg/dL (74-106); Potassium 3.2 mmol/L (3.5-5.1); Protein, Total 6.9 g/dL (6.4-8.2); Sodium Level 129 mmol/L (136-145)
[2022-05-28] MEDS: Insulin Lispro 100 UNIT/ML INSULN.PEN SC ×4 (06:40→21:38)
[2022-05-28 07:05] LABS: Bedside Glucose 207 mg/dL (74-106)
--- NOTE | 2022-05-28 07:15 | PN.CC_ITS ---
Assessment & Plan Assessment/Plan (1) COVID-19: PLAN: Plan RECOMMENDATIONS: 1. Wean oxygen to maintain saturations at or above 90%. 2. Continue Decadron to complete treatment course. 3. Intermittent use of diuretics to maintain euvolemic state. 4. Continue scheduled bronchodilators. 5. Continue amiodarone and Eliquis as ordered. 6. Encourage incentive spirometer use and mobilize patient as tolerated. 7. Perform walking oximetry study prior to consideration for discharge home. IMPRESSIONS: 1. Acute hypoxemic respiratory failure Appears secondary to COVID-19 with concurrent Legionella pneumonia in a patient at risk for obstructive lung disease. The patient has completed a treatment course of remdesivir. Plan to continue Decadron as ordered. She has completed a treatment course of antimicrobials as well. Plan to continue supplemental oxygen to maintain saturations greater than 90%. Continue intermittent use of diuretics to maintain euvolemic state. Encourage incentive spirometer use and mobilize patient as tolerated. Continue scheduled bronchodilator therapy. 2. New onset atrial fibrillation Continue current medical management including amiodarone and Eliquis. 3. Hypokalemia Electrolyte repletion as ordered. Recheck levels in the morning. 4. Chronic tobacco dependency/diabetes mellitus/osteoarthritis/hyperlipidemia Complicates care, management, recovery and prognosis. Continue home medications as indicated. This note was generated with [employer] dictation software. It may contain incorrect words, spelling, and punctuation that were not noted in checking the note before signing. Subjective Subjective The patient was seen and examined at the bedside this morning. Events from the last 24 hours have been reviewed. The patient is currently afebrile, hemodynamically stable and maintaining appropriate oxygen saturations on 5 L/min via nasal cannula. The patient is currently documented to be overall net +5.6 L for the hospitalization. The patient did receive IV Lasix yesterday. White blood cell count remains elevated at 34,000. Sodium this morning was noted to be 129 with a potassium of 3.2. Creatinine remains within normal limits. Objective Data Objective Data The patient's most recent lab work, culture data and imaging studies have all been personally reviewed. Surface echocardiogram completed on May 19 demonstrated normal LV size and function with an ejection fraction of 60%. Legionella antigen was positive on May 18. COVID PCR was positive on May 18. Vital Signs: Vital Signs Temp Pulse Resp BP Pulse Ox O2 Del Method O2 Flow Rate 97.6 F L 82 19 H 104/63 94 High Flow 5 05/28/22 06:00 05/28/22 06:00 05/28/22 06:00 05/28/22 06:00 05/28/22 06:00 05/28/22 06:00 05/28/22 06:00 FiO2 60 05/27/22 07:24 Oxygen Flow Rate (L/min) 5 Oxygen Delivery Method High Flow Weight: 132 lb 7.965 oz Body Mass Index (BMI) 21.5 Intake & Output: Intake and Output for Last 24 Hours 05/26/22 05/27/22 05/28/22 23:59 23:59 23:59 Intake Total 380 / 380 400 / 500 100 / 100 Output Total 1000 / 1000 800 / 1100 300 / 300 Balance -620 / -620 -400 / -600 -200 / -200 Lab / Micro Data Attestation: I reviewed the patient's lab results. Result Diagrams: 05/29/22 05:09 05/29/22 05:09 Labs: Laboratory Results - last 24 hr 05/27/22 06:45: WBC 33.9 H*, RBC 4.05 L, Hgb 11.7 L, Hct 35.9 L, MCV 88.6, MCH 28.9, MCHC 32.6, RDW Std Deviation 46.5 H, RDW Coeff of Palak 14.6, Plt Count 695 H, MPV 9.5, Immature Gran % (Auto) 2.100 H, Neut % (Auto) 90.9 H, Lymph % (Auto) 3.1 L, [place] % (Auto) 3.7, Eos % (Auto) 0.0, Baso % (Auto) 0.2, Absolute Neuts (auto) 30.8 H, Absolute Lymphs (auto) 1.06, Nucleated RBC % 0, Diff Path Review Reviewed, Platelet Estimate MOD INC 05/27/22 06:45: Sodium 132 L, Potassium 3.4 L, Chloride 93 L, Carbon Dioxide 30.0, Anion Gap 9, BUN 41 H, Creatinine 0.62, Estim Creat Clear Calc 49.42, Est GFR (MDRD) Af Amer 121, Est GFR (MDRD) Non-Af 100, BUN/Creatinine Ratio 65.7 H, Glucose 178 H, Calcium 8.2 L, Total Bilirubin 0.70, AST 27, ALT 47, Alkaline Phosphatase 108, Total Protein 6.7, Albumin 2.2 L, Globulin 4.5 H, Albumin/Globulin Ratio 0.5 L 05/27/22 11:32: POC Glucose 284 H 05/27/22 17:25: POC Glucose 265 H 05/27/22 22:26: POC Glucose 302 H 05/28/22 04:00: WBC 34.4 H*, RBC 3.90 L, Hgb 11.5 L, Hct 33.6 L, MCV 86.2, MCH 29.5, MCHC 34.2, RDW Std Deviation 45.2 H, RDW Coeff of Palak 14.4, Plt Count 631 H, MPV 9.7, Immature Gran % (Auto) 1.400 H, Neut % (Auto) 92.9 H, Lymph % (Auto) 2.4 L, [place] % (Auto) 3.1, Eos % (Auto) 0.0, Baso % (Auto) 0.2, Absolute Neuts (auto) 31.9 H, Absolute Lymphs (auto) 0.82 L, Nucleated RBC % 0, Diff Path Review February, Platelet Estimate MKD INC 05/28/22 04:00: Sodium 129 L, Potassium 3.2 L, Chloride 90 L, Carbon Dioxide 31.0, Anion Gap 8, BUN 36 H, Creatinine 0.60, Estim Creat Clear Calc 49.42, Est GFR (MDRD) Af Amer 128, Est GFR (MDRD) Non-Af 105, BUN/Creatinine Ratio 60.2 H, Glucose 206 H, Calcium 8.0 L, Total Bilirubin 0.60, AST 23, ALT 41, Alkaline Phosphatase 110, Total Protein 6.9, Albumin 2.2 L, Globulin 4.7 H, Albumin/Gl obulin Ratio 0.5 L 05/28/22 06:39: POC Glucose 207 H Micro: Microbiology 05/26/22 16:10 Sputum, Expectorated/Coughed Gram Stain - Final 05/26/22 16:10 Sputum, Expectorated/Coughed Respiratory Culture - Preliminary Appears to be normal respiratory desmond. Further studies to follow. 05/18/22 18:10 Blood Culture (Wb) - Anticubital Right Blood Culture - Final No growth in 5 days. 05/18/22 19:00 Blood Culture (Wb) - Anticubital Right Blood Culture - Final No growth in 5 days. 05/18/22 21:20 Urine, Clean Catch Streptococcus pneumoniae Antigen (M - Final 05/18/22 21:20 Urine, Clean Catch Legionella Antigen - Final Legionella Antigen 05/18/22 18:37 Nasal Secretion SARS-CoV-2 & FLU Antigen (Rapid) - Final Radiography Diagnostic Testing: Radiology Impression Chest X-Ray 05/27/22 11:31 IMPRESSION: Hyperinflation. New left lower lobe infiltrate. Improved aeration of the right upper lobe and right lower lobe. Electronically Signed: Palu Moctezuma MD at 12:58 EDT , Rhythm Strip Rhythm Strip: A-fib Rate: 117 Ectopy: PVC(s) Physical Exam Const alert and no apparent distress General Appearance: cooperative HEENT normocephalic and head/scalp atraumatic Eyes PERRL, EOMs intact bilaterally and conjunctivae normal Neck supple General: trachea midline Chest inspection of chest normal Resp Effort and Inspection: tachypneic Auscultation: diminished lung sounds Cardio S1 normal heart sound and S2 normal heart sound Rate: tachycardic GI normal to inspection, nondistended, normoactive bowel sounds Extremity no clubbing, cyanosis or edema Skin no rashes or lesions noted Neuro CN's II-XII intact bilaterally, moves all extremities and no focal motor deficits Psych cooperative and affect normal Charges/Coding Visit Charges Inpatient E&M: 13558 Subs Hosp L2
--- NOTE | 2022-05-28 07:57 | PN.HOSP_ITS ---
Subjective Subjective Patient seen clinical condition improving. Currently on nasal cannula. Heart rate remains controlled Objective Data Objective Data Vital Signs: Vital Signs Temp Pulse Resp BP Pulse Ox O2 Del Method O2 Flow Rate 97.6 F L 82 19 H 104/63 94 High Flow 5 05/28/22 06:00 05/28/22 06:00 05/28/22 06:00 05/28/22 06:00 05/28/22 06:00 05/28/22 06:00 05/28/22 06:00 FiO2 60 05/27/22 07:24 Oxygen Flow Rate (L/min) 5 Oxygen Delivery Method High Flow Weight: 60.1 kg Body Mass Index (BMI) 21.5 Intake & Output: Intake and Output for Last 24 Hours 05/26/22 05/27/22 05/28/22 23:59 23:59 23:59 Intake Total 380 / 380 400 / 500 100 / 100 Output Total 1000 / 1000 800 / 1100 300 / 300 Balance -620 / -620 -400 / -600 -200 / -200 Lab / Micro Data Result Diagrams: 05/28/22 04:00 05/28/22 04:00 Labs: Laboratory Results - last 24 hr 05/27/22 06:45: Diff Path Review Reviewed 05/27/22 11:32: POC Glucose 284 H 05/27/22 17:25: POC Glucose 265 H 05/27/22 22:26: POC Glucose 302 H 05/28/22 04:00: WBC 34.4 H*, RBC 3.90 L, Hgb 11.5 L, Hct 33.6 L, MCV 86.2, MCH 29.5, MCHC 34.2, RDW Std Deviation 45.2 H, RDW Coeff of Palak 14.4, Plt Count 631 H, MPV 9.7, Immature Gran % (Auto) 1.400 H, Neut % (Auto) 92.9 H, Lymph % (Auto) 2.4 L, [place] % (Auto) 3.1, Eos % (Auto) 0.0, Baso % (Auto) 0.2, Absolute Neuts (auto) 31.9 H, Absolute Lymphs (auto) 0.82 L, Nucleated RBC % 0, Diff Path Review May mason, Platelet Estimate MKD INC 05/28/22 04:00: Sodium 129 L, Potassium 3.2 L, Chloride 90 L, Carbon Dioxide 31.0, Anion Gap 8, BUN 36 H, Creatinine 0.60, Estim Creat Clear Calc 49.42, Est GFR (MDRD) Af Amer 128, Est GFR (MDRD) Non-Af 105, BUN/Creatinine Ratio 60.2 H, Glucose 206 H, Calcium 8.0 L, Total Bilirubin 0.60, AST 23, ALT 41, Alkaline Phosphatase 110, Total Protein 6.9, Albumin 2.2 L, Globulin 4.7 H, Albumin/Globulin Ratio 0.5 L 05/28/22 06:39: POC Glucose 207 H Micro: Microbiology 05/26/22 16:10 Sputum, Expectorated/Coughed Gram Stain - Final 05/26/22 16:10 Sputum, Expectorated/Coughed Respiratory Culture - Preliminary Appears to be normal respiratory desmond. Further studies to follow. 05/18/22 18:10 Blood Culture (Wb) - Anticubital Right Blood Culture - Final No growth in 5 days. 05/18/22 19:00 Blood Culture (Wb) - Anticubital Right Blood Culture - Final No growth in 5 days. 05/18/22 21:20 Urine, Clean Catch Streptococcus pneumoniae Antigen (M - Final 05/18/22 21:20 Urine, Clean Catch Legionella Antigen - Final Legionella Antigen 05/18/22 18:37 Nasal Secretion SARS-CoV-2 & FLU Antigen (Rapid) - Final Radiography Diagnostic Testing: Radiology Impression Chest X-Ray 05/27/22 11:31 IMPRESSION: Hyperinflation. New left lower lobe infiltrate. Improved aeration of the right upper lobe and right lower lobe. Electronically Signed: Paul Moctezuma MD at 12:58 EDT , Rhythm Strip Rhythm Strip: A-fib Rate: 117 Ectopy: PVC(s) Physical Exam Narrative GENERAL: Frail looking, HEENT: Atraumatic; EYES; Anicteric, Normal Conjunctiva NECK; supple, normal thyroid, RESPIRATORY: Diminished to auscultation CARDIOVASCULAR: Regular S1 S2, GI: soft, normoactive bowel sounds, : No Renal angle tenderness; EXTREMITIES: No edema, no clubbing, MUSCULOSKELETAL: no muscle wasting NEURO: Awake; no lateralizing signs. SKIN: No Rash PSYCH; Flat affect Assessment & Plan Assessment/Plan (1) Lobar pneumonia: (2) COVID-19: (3) Atrial fibrillation with rapid ventricular response: (4) Acute hyponatremia: (5) Acute hypokalemia: PLAN: Plan Patient is a 72-year-old female with generalized weakness. She had apparently tested positive for COVID 19 4 days prior to her admission. Imaging studies obtained on admission demonstrated interstitial alveolar infiltrates in the right upper lobe in addition to consolidative changes in the right lung base. Patient also found to be single hypoxic on admission admitted to a monitored bed for further management 1. Acute hypoxic respiratory failure ? Secondary to COVID-19 pneumonia with superimposed Legionella pneumonia. Admitted to a monitored bed managed with broad-spectrum antibiotic therapy with Rocephin and azithromycin in addition to remdesivir and Decadron with consultation placed to infectious disease. Patient did not receive tocilizumab in view of her underlying Legionella infection ? 05/26/2022. Patient still has significant hypoxia and is on Airvo. Plan is to try to wean off to nasal cannula. Still has significant leukocytosis possibly related to her underlying steroid use. -05/27/2022 Patient seen WBC count trending up. Still remains on Airvo, was briefly placed on nasal cannula and had to be placed back on Airvo. Plan is to try to wean patient Airvo and place on oxygen via nasal cannula ? 05/28/2022 patient has been weaned off Airvo currently on nasal cannula maintaining adequate oxygen saturation. Chest x-ray obtained the day prior did show Hyperinflation. New left lower lobe infiltrate. Improved aeration of the right upper lobe and right lower lobe. Patient has completed her antimicrobial therapy 2. New onset A. fib ? Thought to be precipitated by patient's underlying infection managed with drip when patient did experience rapid ventricular response subsequently switched to p.o. Cardizem. Patient also placed on amiodarone and systemic anticoagulation with apixaban 3. Acute gastroenteritis ? Thought to be viral gastroenteritis from COVID 19 manage symptomatically 4. Hypokalemia ? Corrected per protocol, With subsequent monitoring of electrolytes ordered 5. Hyponatremia ? Multifactorial including Legionella pneumonia as well as losses from her gastroenteritis on IV fluid with monitoring of electrolytes 6. Diabetes mellitus type II -patient's oral hypoglycemics held. Placed on long acting insulin, Accu-Cheks a.c. and at bedtime and covered with sliding scale insulin 7. GERD ? On PPI 8. Osteoporosis ? Patient is on alendronate 9. Dyslipidemia -Patient is on statin therapy, continued at home dose 10. Tobacco dependence - Counseled on cessation, offered nicotine patch for tobacco cravings 11. DVT prophylaxis ? On apixaban 12. Physical deconditioning - Requested for PT OT eval and delinquency prevention social worker to assist with discharge planning Charges/Coding Visit Charges Inpatient E&M: 67733 Subs Hosp L2
[2022-05-28] MEDS: guaiFENesin 1,200 MG Tablet 1200 MG PO ×2 (09:41→21:39)
[2022-05-28] MEDS: Ondansetron 4 MG/2 ML Vial IV (09:42)
[2022-05-28] MEDS: 0.9% Saline Lock 10 ML Syringe IV (09:42)
[2022-05-28] MEDS: Insulin Glargine-YFGN 100 UNIT/ML Pen 10 UNIT SC (09:42)
[2022-05-28] MEDS: Sodium Chloride 0.65% 1 SPRAY SPRAY.BTL NASAL ×2 (09:42→21:40)
[2022-05-28] MEDS: Amiodarone 200 MG Tablet PO ×3 (09:43→16:31)
[2022-05-28] MEDS: APIXABAN 5 MG TABLET PO ×2 (09:43→21:40)
[2022-05-28] MEDS: Potassium Chloride 10mEq/100mL 10 MEQ/100 ML IV.SOLN. 100 MEQ IV BOLUS ×4 (09:43→12:57)
[2022-05-28] MEDS: dexAMETHasone 10 MG/ML Vial 6 MG IV (09:43)
[2022-05-28] MEDS: Pantoprazole Sodium 40 MG Tablet PO (09:43)
[2022-05-28] MEDS: dilTIAZem CD 120 MG Capsule PO (10:30)
[2022-05-28 11:35] LABS: Bedside Glucose 247 mg/dL (74-106)
[2022-05-28 12:36] LABS: Pathologist Review Reviewed
[2022-05-28] MEDS: Ipratropium/Albuterol Sulfate 3 ML AMPUL.NEB INHALATION ×2 (15:27→19:41)
--- NOTE | 2022-05-28 15:28 | PCM.PN.ID ---
Physical Exam Narrative Feeling better, on nasal cannula, no fever, no sputum. Const alert and no apparent distress Resp Auscultation: diminished lung sounds Cardio regular rate and regular rhythm GI soft to palpation, non-tender and non-distended Skin no rashes or lesions noted ID ID: Route of nutrition/ use of supplements: [] Nutritional Intake: [] IV Site: [] [place] Catheter: [] Assessment & Plan Assessment/Plan (1) Legionella pneumonia: (2) COVID-19: PLAN: Hypoxic resp failure with covid and legionella. On dex, completed remdesivir and azithro. O2 improving, still with leukocytosis, stable from yesterday. Sputum with some fungus, cxr with ? new infiltrate but overall clinical improvement. No fever. Cont to monitor off abx at this time. Will follow, d/w Dr. Germain
--- NOTE | 2022-05-28 15:35 | NURSING ---
Change made to consult order by Dr. Schwartz for Dr. Barksdale. Updated Dr. Barksdale and completed consult.
[2022-05-28 17:05] LABS: Bedside Glucose 316 mg/dL (74-106)
[2022-05-28] MEDS: QUEtiapine 25 MG Tablet 50 MG PO (21:40)
[2022-05-28] MEDS: Atorvastatin Calcium 20 MG Tablet PO (21:40)
[2022-05-28 23:25] LABS: Bedside Glucose 282 mg/dL (74-106)
[2022-05-29] VITALS (14 sets, daily range): BP systolic 99–118; BP diastolic 55–70; PULSE 73–114; RESP 18–24; TEMP 36.3–36.9; O2SAT 90–95
[2022-05-29 05:54] LABS: Absolute Neutrophil Count 33.8 X10^3/uL (2.0-7.7); Basophil# 0.08 X10^3/uL; Basophil% 0.2 % (0-1); Hematocrit 32.2 % (37-47); Hemoglobin 10.9 g/dL (12.0-15.0); Lymphocyte % 2.8 % (19-41); Mean Corp Hgb Conc 33.9 g/dL (32-36); Mean Corpuscular Hgb 30.1 pg (27.0-32.0); Mean Platelet Vol. 9.9 fl (6.2-12.0); Monocyte# 1.03 X10^3/uL; Monocyte% 2.8 % (0-10); NRBC Flagged by Analyzer 0 % (0-5); Neutrophil # 33.77 X10^3/uL (2.7-7.7); Neutrophil % 93.2 % (47-70); POSITIVE COUNT YES; POSITIVE DIFFERENTIAL YES; Platelet Count 545 K/mm3 (150-450); RBC Distribution Width CV 14.4 % (11.6-14.6); RBC Distribution Width SD 46.3 fl (35.1-43.9); Red Blood Count 3.62 M/mm3 (4.2-5.4); White Blood Count 36.3 K/mm3 (4.4-11.0)
[2022-05-29 06:09] LABS: Differential Indicated SCAN CRITERIA MET
[2022-05-29 06:16] LABS: Platelet Estimate MOD INC (ADEQ)
[2022-05-29 06:27] LABS: ALB/GLOB Ratio 0.4 RATIO (0.9-2.4); AST(SGOT) 23 U/L (15-37); Alanine Aminotransfer ALT/SGPT 35 U/L (13-56); Albumin, Serum 2.1 g/dL (3.2-5.0); Alkaline Phosphatase 111 U/L (45-117); Anion Gap 8 (5-15); BUN 36 mg/dL (7-18); Chloride 89 mmol/L (98-107); Creatinine, Serum 0.61 mg/dL (0.55-1.02); EST Glomerular Filtration Rate 103 mL/min (>60); Est Glom Filt Rate - Afr Amer 125 mL/min (>60); Globulin 4.7 g/dL (2.2-4.2); Glucose 200 mg/dL (74-106); Potassium 4.1 mmol/L (3.5-5.1); Protein, Total 6.8 g/dL (6.4-8.2); Sodium Level 127 mmol/L (136-145)
[2022-05-29] MEDS: Insulin Lispro 100 UNIT/ML INSULN.PEN SC ×4 (06:41→21:12)
[2022-05-29 07:10] LABS: Bedside Glucose 231 mg/dL (74-106)
[2022-05-29] MEDS: Ipratropium/Albuterol Sulfate 3 ML AMPUL.NEB INHALATION ×3 (07:28→14:55)
--- NOTE | 2022-05-29 08:02 | PCM.PN.HOSP ---
Subjective Subjective PatientPatient seen WBC count continues to trend up however patient remains clinically stable currently on 5 L/min flow via nasal cannula. Case discussed with ID daughter. Patient remains deconditioned and plan is for patient to be transferred to a nursing home facility once a facility secured possibly on 05/30/2022 Objective Data Objective Data Vital Signs: Vital Signs Temp Pulse Resp BP Pulse Ox O2 Del Method O2 Flow Rate 97.5 F L 75 20 H 99/63 95 Nasal Cannula 5 05/29/22 05:00 05/29/22 06:53 05/29/22 05:00 05/29/22 05:00 05/29/22 05:00 05/29/22 05:00 05/29/22 05:00 FiO2 60 05/27/22 07:24 Oxygen Flow Rate (L/min) 5 Oxygen Delivery Method Nasal Cannula Weight: 58.2 kg Body Mass Index (BMI) 21.5 Intake & Output: Intake and Output for Last 24 Hours 05/27/22 05/28/22 05/29/22 23:59 23:59 23:59 Intake Total 400 / 500 1098.33 / 1098.33 Output Total 800 / 1100 850 / 850 50 / 50 Balance -400 / -600 248.33 / 248.33 -50 / -50 Lab / Micro Data Result Diagrams: 05/29/22 05:09 05/29/22 05:09 Labs: Laboratory Results - last 24 hr 05/28/22 04:00: Diff Path Review Reviewed 05/28/22 10:57: POC Glucose 247 H 05/28/22 16:28: POC Glucose 316 H 05/28/22 21:26: POC Glucose 282 H 05/29/22 05:09: WBC 36.3 H*, RBC 3.62 L, Hgb 10.9 L, Hct 32.2 L, MCV 89.0, MCH 30.1, MCHC 33.9, RDW Std Deviation 46.3 H, RDW Coeff of Palak 14.4, Plt Count 545 H, MPV 9.9, Immature Gran % (Auto) 1.000 H, Neut % (Auto) 93.2 H, Lymph % (Auto) 2.8 L, [place] % (Auto) 2.8, Eos % (Auto) 0.0, Baso % (Auto) 0.2, Absolute Neuts (auto) 33.8 H, Absolute Lymphs (auto) 1.00, Nucleated RBC % 0, Diff Path Review May foll, Platelet Estimate MOD INC 05/29/22 05:09: Sodium 127 L, Potassium 4.1, Chloride 89 L, Carbon Dioxide 30.0, Anion Gap 8, BUN 36 H, Creatinine 0.61, Estim Creat Clear Calc 48.10, Est GFR (MDRD) Af Amer 125, Est GFR (MDRD) Non-Af 103, BUN/Creatinine Ratio 59.0 H, Glucose 200 H, Calcium 8.0 L, Total Bilirubin 0.60, AST 23, ALT 35, Alkaline Phosphatase 111, Total Protein 6.8, Albumin 2.1 L, Globulin 4.7 H, Albumin/Globulin Ratio 0.4 L 05/29/22 06:37: POC Glucose 231 H Micro: Microbiology 05/26/22 16:10 Sputum, Expectorated/Coughed Gram Stain - Final 05/26/22 16:10 Sputum, Expectorated/Coughed Respiratory Culture - Preliminary Possible Fungus 05/18/22 18:10 Blood Culture (Wb) - Anticubital Right Blood Culture - Final No growth in 5 days. 05/18/22 19:00 Blood Culture (Wb) - Anticubital Right Blood Culture - Final No growth in 5 days. 05/18/22 21:20 Urine, Clean Catch Streptococcus pneumoniae Antigen (M - Final 05/18/22 21:20 Urine, Clean Catch Legionella Antigen - Final Legionella Antigen 05/18/22 18:37 Nasal Secretion SARS-CoV-2 & FLU Antigen (Rapid) - Final Rhythm Strip Rhythm Strip: A-fib Rate: 117 Ectopy: PVC(s) Physical Exam Narrative GENERAL: Frail looking, HEENT: Atraumatic; EYES; Anicteric, Normal Conjunctiva NECK; supple, normal thyroid, RESPIRATORY: Diminished to auscultation CARDIOVASCULAR: Regular S1 S2, GI: soft, normoactive bowel sounds, : No Renal angle tenderness; EXTREMITIES: No edema, no clubbing, MUSCULOSKELETAL: no muscle wasting NEURO: Awake; no lateralizing signs. SKIN: No Rash PSYCH; Flat affect Assessment & Plan Assessment/Plan (1) Lobar pneumonia: (2) COVID-19: (3) Atrial fibrillation with rapid ventricular response: (4) Acute hyponatremia: (5) Acute hypokalemia: PLAN: Plan Patient is a 72-year-old female with generalized weakness. She had apparently tested positive for COVID 19 4 days prior to her admission. Imaging studies obtained on admission demonstrated interstitial alveolar infiltrates in the right upper lobe in addition to consolidative changes in the right lung base. Patient also found to be single hypoxic on admission admitted to a monitored bed for further management 1. Acute hypoxic respiratory failure ? Secondary to COVID-19 pneumonia with superimposed Legionella pneumonia. Admitted to a monitored bed managed with broad-spectrum antibiotic therapy with Rocephin and azithromycin in addition to remdesivir and Decadron with consultation placed to infectious disease. Patient did not receive tocilizumab in view of her underlying Legionella infection ? 05/26/2022. Patient still has significant hypoxia and is on Airvo. Plan is to try to wean off to nasal cannula. Still has significant leukocytosis possibly related to her underlying steroid use. -05/27/2022 Patient seen WBC count trending up. Still remains on Airvo, was briefly placed on nasal cannula and had to be placed back on Airvo. Plan is to try to wean patient Airvo and place on oxygen via nasal cannula ? 05/28/2022 patient has been weaned off Airvo currently on nasal cannula maintaining adequate oxygen saturation. Chest x-ray obtained the day prior did show Hyperinflation. New left lower lobe infiltrate. Improved aeration of the right upper lobe and right lower lobe. Patient has completed her antimicrobial therapy ? 05/29/2022; WBC count remains markedly elevated at 36K however clinically patient continues to improve. Case discussed with Dr. Barksdale with ID, okay to keep patient off antibiotics since he is improving clinically 2. New onset A. fib ? Thought to be precipitated by patient's underlying infection managed with drip when patient did experience rapid ventricular response subsequently switched to p.o. Cardizem. Patient also placed on amiodarone and systemic anticoagulation with apixaban 3. Acute gastroenteritis ? Thought to be viral gastroenteritis from COVID 19 manage symptomatically 4. Hypokalemia ? Corrected per protocol, With subsequent monitoring of electrolytes ordered 5. Hyponatremia ? Multifactorial including Legionella pneumonia as well as losses from her gastroenteritis on IV fluid with monitoring of electrolytes 6. Diabetes mellitus type II -patient's oral hypoglycemics held. Placed on long acting insulin, Accu-Cheks a.c. and at bedtime and covered with sliding scale insulin 7. GERD ? On PPI 8. Osteoporosis ? Patient is on alendronate 9. Dyslipidemia -Patient is on statin therapy, continued at home dose 10. Tobacco dependence - Counseled on cessation, offered nicotine patch for tobacco cravings 11. DVT prophylaxis ? On apixaban 12. Physical deconditioning - Requested for PT OT eval and social media specialist to assist with discharge planning ? 05/29/2022 Case discussed with patient and her daughter both agreeable to a nursing home facility for rehab on discharge 10. Oral candidiasis ? Patient started on nystatin swish and swallow Charges/Coding Visit Charges Inpatient E&M: 08731 Subs Hosp L2
[2022-05-29] MEDS: dexAMETHasone 4 MG Tablet 6 MG PO (08:50)
[2022-05-29] MEDS: Sodium Chloride 0.65% 1 SPRAY SPRAY.BTL NASAL ×2 (08:51→21:13)
[2022-05-29] MEDS: Insulin Glargine-YFGN 100 UNIT/ML Pen 10 UNIT SC (08:51)
[2022-05-29] MEDS: guaiFENesin 1,200 MG Tablet 1200 MG PO ×2 (08:51→21:13)
[2022-05-29] MEDS: Amiodarone 200 MG Tablet PO ×3 (08:51→17:17)
[2022-05-29] MEDS: APIXABAN 5 MG TABLET PO ×2 (08:51→21:13)
[2022-05-29] MEDS: Pantoprazole Sodium 40 MG Tablet PO (08:51)
--- NOTE | 2022-05-29 09:10 | CASEMGMT ---
SW met with patient. Introduced self and role at [facility]. SW spoke with patient about discharge planning as patient is significantly weaker than her normal. SW spoke with patient about going to a fdc short term for rehab to get stronger before she returns home. SW provided patient with a list of SNF providers including quality and resource use data and consistent with the patient?s preferred geographic region, medical needs, and insurance network. SW explained Medicare SNF benefits. Patient agreed to look at the list. Patient said she does not know what her family is planning. SW asked if SW could call her family to talk about a plan and patient said, No. SW asked if family would be coming in and patient said her youngest daughter will be in today. SW told patient to talk about this with her family and SW will check back later to see what they decided. SW explained SW just needs patient to pick 3 facilities she would be okay with and SW will take care of checking on availability. SW stepped out of the room and patient's daughter was getting ready to go into the room. SW introduced self and role at [facility]. SW shared above information with her as well. SW said SW will check back in a little bit to see what they decided. Erin Smith G[employer] REGULATOR REPAIRER MICHELLE
[2022-05-29] MEDS: dilTIAZem CD 120 MG Capsule PO (09:50)
--- NOTE | 2022-05-29 09:53 | PCM.PN.ID ---
Physical Exam Narrative Feeling about the same, no fever, some cough, no sputum Const alert and no apparent distress Resp Auscultation: diminished lung sounds Cardio regular rate and regular rhythm GI soft to palpation, non-tender and non-distended Skin no rashes or lesions noted ID ID: Route of nutrition/ use of supplements: [] Nutritional Intake: [] IV Site: [] [place] Catheter: [] Assessment & Plan Assessment/Plan (1) Legionella pneumonia: (2) COVID-19: PLAN: Hypoxic resp failure with covid and legionella. On dex, completed remdesivir and azithro. O2 improved, still with leukocytosis, slightly up from yesterday. Sputum with some fungus, cxr with ? new infiltrate but overall clinical improvement. No fever. Cont to monitor off abx at this time. Completing abx today. Will follow, d/w Dr. Schwartz
--- NOTE | 2022-05-29 09:58 | CASEMGMT ---
HEMAL spoke with patient's daughter in the hallway before she left. She said patient is depressed she will have to go somewhere. However, patient's daughter asked patient if she were to go home today would she be able to do her steps. Patient said she could not and agreed to go somewhere. Patient's daughter said their choices would be [facility] and then [place]. SW let her know SW will work on the referral. HEMAL spoke with naz Serrato/c merchandise planning manager and she will make a referral to [place] [facility]. Erin Smith MSW MICHELLE
--- NOTE | 2022-05-29 10:12 | PCM.PN.INT ---
Assessment & Plan Assessment/Plan (1) COVID-19: PLAN: Plan RECOMMENDATIONS: 1. Wean oxygen to maintain saturations at or above 90%. 2. Intermittent use of diuretics to maintain euvolemic state. 3. Continue scheduled bronchodilators. 4. Continue amiodarone and Eliquis as ordered. 5. Encourage incentive spirometer use and mobilize patient as tolerated. 6. Perform walking oximetry study prior to consideration for discharge home. IMPRESSIONS: 1. Acute hypoxemic respiratory failure Appears secondary to COVID-19 with concurrent Legionella pneumonia in a patient at risk for obstructive lung disease. The patient has completed a treatment courses of remdesivir, decadron and antimicrobials. Plan to continue Decadron as ordered. Plan to continue supplemental oxygen to maintain saturations greater than 90%. Continue intermittent use of diuretics to maintain euvolemic state. Encourage incentive spirometer use and mobilize patient as tolerated. Continue scheduled bronchodilator therapy. 2. New onset atrial fibrillation Continue current medical management including amiodarone and Eliquis. 3. Chronic tobacco dependency/diabetes mellitus/osteoarthritis/hyperlipidemia Complicates care, management, recovery and prognosis. Continue home medications as indicated. This note was generated with [employer] dictation software. It may contain incorrect words, spelling, and punctuation that were not noted in checking the note before signing. Subjective Subjective The patient was seen and examined at the bedside this morning. Events from the last 24 hours have been reviewed. The patient is currently afebrile, hemodynamically stable and maintaining appropriate oxygen saturations on 5 L/min via nasal cannula. The patient is documented to be overall net +6 L for the hospitalization. White count remains elevated at 36,000. Objective Data Objective Data The patient's most recent lab work, culture data and imaging studies have all been personally reviewed. Surface echocardiogram completed on May 19 demonstrated normal LV size and function with an ejection fraction of 60%. Legionella antigen was positive on May 18. COVID PCR was positive on May 18. Preliminary sputum culture is demonstrating growth of possible fungus. Vital Signs: Vital Signs Temp Pulse Resp BP Pulse Ox O2 Del Method O2 Flow Rate 97.5 F L 100 18 99/63 91 Nasal Cannula 5 05/29/22 05:00 05/29/22 07:38 05/29/22 07:38 05/29/22 05:00 05/29/22 07:38 05/29/22 07:38 05/29/22 07:38 FiO2 60 05/27/22 07:24 Oxygen Flow Rate (L/min) 5 Oxygen Delivery Method Nasal Cannula Weight: 128 lb 4.944 oz Body Mass Index (BMI) 21.5 Intake & Output: Intake and Output for Last 24 Hours 05/27/22 05/28/22 05/29/22 23:59 23:59 23:59 Intake Total 400 / 500 1098.33 / 1098.33 Output Total 800 / 1100 850 / 850 50 / 50 Balance -400 / -600 248.33 / 248.33 -50 / -50 Lab / Micro Data Attestation: I reviewed the patient's lab results. Result Diagrams: 05/29/22 05:09 05/29/22 05:09 Labs: Laboratory Results - last 24 hr 05/28/22 04:00: Diff Path Review Reviewed 05/28/22 10:57: POC Glucose 247 H 05/28/22 16:28: POC Glucose 316 H 05/28/22 21:26: POC Glucose 282 H 05/29/22 05:09: WBC 36.3 H*, RBC 3.62 L, Hgb 10.9 L, Hct 32.2 L, MCV 89.0, MCH 30.1, MCHC 33.9, RDW Std Deviation 46.3 H, RDW Coeff of Palak 14.4, Plt Count 545 H, MPV 9.9, Immature Gran % (Auto) 1.000 H, Neut % (Auto) 93.2 H, Lymph % (Auto) 2.8 L, [place] % (Auto) 2.8, Eos % (Auto) 0.0, Baso % (Auto) 0.2, Absolute Neuts (auto) 33.8 H, Absolute Lymphs (auto) 1.00, Nucleated RBC % 0, Diff Path Review May foll, Platelet Estimate MOD INC 05/29/22 05:09: Sodium 127 L, Potassium 4.1, Chloride 89 L, Carbon Dioxide 30.0, Anion Gap 8, BUN 36 H, Creatinine 0.61, Estim Creat Clear Calc 48.10, Est GFR (MDRD) Af Amer 125, Est GFR (MDRD) Non-Af 103, BUN/Creatinine Ratio 59.0 H, Glucose 200 H, Calcium 8.0 L, Total Bilirubin 0.60, AST 23, ALT 35, Alkaline Phosphatase 111, Total Protein 6.8, Albumin 2.1 L, Globulin 4.7 H, Albumin/Globulin Ratio 0.4 L 05/29/22 06:37: POC Glucose 231 H Micro: Microbiology 05/26/22 16:10 Sputum, Expectorated/Coughed Gram Stain - Final 05/26/22 16:10 Sputum, Expectorated/Coughed Respiratory Culture - Preliminary Possible Fungus 05/18/22 18:10 Blood Culture (Wb) - Anticubital Right Blood Culture - Final No growth in 5 days. 05/18/22 19:00 Blood Culture (Wb) - Anticubital Right Blood Culture - Final No growth in 5 days. 05/18/22 21:20 Urine, Clean Catch Streptococcus pneumoniae Antigen (M - Final 05/18/22 21:20 Urine, Clean Catch Legionella Antigen - Final Legionella Antigen 05/18/22 18:37 Nasal Secretion SARS-CoV-2 & FLU Antigen (Rapid) - Final Radiography Diagnostic Testing: Radiology Impression Chest X-Ray 05/27/22 11:31 IMPRESSION: Hyperinflation. New left lower lobe infiltrate. Improved aeration of the right upper lobe and right lower lobe. Electronically Signed: Paul Moctezuma MD at 12:58 EDT , Rhythm Strip Rhythm Strip: A-fib Rate: 117 Ectopy: PVC(s) Physical Exam Const alert and no apparent distress General Appearance: cooperative HEENT normocephalic and head/scalp atraumatic Eyes PERRL, EOMs intact bilaterally and conjunctivae normal Neck supple General: trachea midline Chest inspection of chest normal Resp Effort and Inspection: tachypneic Auscultation: diminished lung sounds Cardio S1 normal heart sound and S2 normal heart sound Rate: tachycardic GI normal to inspection, nondistended, normoactive bowel sounds Extremity no clubbing, cyanosis or edema Skin no rashes or lesions noted Neuro CN's II-XII intact bilaterally, moves all extremities and no focal motor deficits Psych cooperative and affect normal Charges/Coding Visit Charges Inpatient E&M: 52731 Subs Hosp L2
--- NOTE | 2022-05-29 10:17 | CASEMGMT ---
Discharge Mailroom Coordinator Ama called Kaylee at the [facility]. Kaylee is in a meeting. Ama left a message and sent referral. Will follow up. Plan: Armen, Waiting acceptance Ama Fernandez Discharge Mailroom Coordinator
[2022-05-29 11:40] LABS: Bedside Glucose 256 mg/dL (74-106)
--- NOTE | 2022-05-29 11:41 | CASEMGMT ---
Discharge Publications Inspector Kaylee from the [facility] reached out. Patient has been accepted. HEMAL Khan notified. Plan: Armen Fernandez Discharge Publications Inspector
--- NOTE | 2022-05-29 12:46 | CASEMGMT ---
HEMAL received a phone call from patient's daughter, Noni. Noni was concerned about visitation at the [facility]. Ama d/verenice sales planning coordinator was on the phone with [facility]. Patient was accepted and they do not restrict visitation. HEMAL let Noni know patient was accepted at [facility] and that they are not restricting visitation. Noni is aware patient will likely be discharged tomorrow. Noni thanked HEMAL for the information. Plan: d/c to [facility] when medically ready. Erin MARTINEZ
[2022-05-29 13:28] LABS: Pathologist Review Reviewed
[2022-05-29] MEDS: NYSTATIN 500,000 UNIT/5 ML UDC 500000 UNIT PO ×3 (14:35→21:13)
[2022-05-29 16:41] LABS: Bedside Glucose 287 mg/dL (74-106)
[2022-05-29] MEDS: QUEtiapine 25 MG Tablet 50 MG PO (21:13)
[2022-05-29] MEDS: Atorvastatin Calcium 20 MG Tablet PO (21:13)
[2022-05-29 21:41] LABS: Bedside Glucose 293 mg/dL (74-106)
[2022-05-29] MEDS: Mag Hydrox/Al Hydrox/Simeth 30 ML UDC PO (21:46)
[2022-05-30] VITALS (14 sets, daily range): BP systolic 96–117; BP diastolic 58–74; PULSE 85–120; RESP 19–25; TEMP 36–37.3; O2SAT 91–97
[2022-05-30] MEDS: Insulin Lispro 100 UNIT/ML INSULN.PEN SC ×4 (06:14→23:20)
--- NOTE | 2022-05-30 06:27 | PN.CC_ITS ---
Assessment & Plan Assessment/Plan (1) COVID-19: PLAN: Plan RECOMMENDATIONS: 1. Wean oxygen to maintain saturations at or above 90%. 2. Intermittent use of diuretics to maintain euvolemic state. 3. Continue scheduled bronchodilators. 4. Continue amiodarone and Eliquis as ordered. 5. Encourage incentive spirometer use and mobilize patient as tolerated. 6. Perform walking oximetry study prior to consideration for discharge home. IMPRESSIONS: 1. Acute hypoxemic respiratory failure Appears secondary to COVID-19 with concurrent Legionella pneumonia in a patient at risk for obstructive lung disease. The patient has completed a treatment courses of remdesivir, decadron and antimicrobials. Plan to continue Decadron as ordered. Plan to continue supplemental oxygen to maintain saturations greater than 90%. Continue intermittent use of diuretics to maintain euvolemic state. Encourage incentive spirometer use and mobilize patient as tolerated. Continue scheduled bronchodilator therapy. 2. New onset atrial fibrillation Continue current medical management including amiodarone and Eliquis. 3. Chronic tobacco dependency/diabetes mellitus/osteoarthritis/hyperlipidemia Complicates care, management, recovery and prognosis. Continue home medications as indicated. This note was generated with [employer] dictation software. It may contain incorrect words, spelling, and punctuation that were not noted in checking the note before signing. Subjective Subjective The patient was seen and examined at the bedside this morning. Events from the last 24 hours have been reviewed. The patient is currently afebrile, hemodynamically stable and maintaining appropriate oxygen saturations on 5 L/min via nasal cannula. The patient is documented to be overall net +5.8 L for the hospitalization. White count still remains elevated at 37,000. Objective Data Objective Data The patient's most recent lab work, culture data and imaging studies have all been personally reviewed. Surface echocardiogram completed on May 19 demonstrated normal LV size and function with an ejection fraction of 60%. Legionella antigen was positive on May 18. COVID PCR was positive on May 18. Preliminary sputum culture is demonstrating growth of possible fungus. Vital Signs: Vital Signs Temp Pulse Resp BP Pulse Ox O2 Del Method O2 Flow Rate 97.5 F L 94 24 H 96/58 L 97 Nasal Cannula 5 05/30/22 06:12 05/30/22 06:12 05/30/22 06:12 05/30/22 06:12 05/30/22 06:12 05/30/22 06:12 05/30/22 06:12 FiO2 60 05/27/22 07:24 Oxygen Flow Rate (L/min) 5 Oxygen Delivery Method Nasal Cannula Weight: 127 lb 6.835 oz Body Mass Index (BMI) 21.5 Intake & Output: Intake and Output for Last 24 Hours 05/28/22 05/29/22 05/30/22 23:59 23:59 23:59 Intake Total 1098.33 / 1098.33 300 / 300 Output Total 850 / 850 400 / 400 100 / 100 Balance 248.33 / 248.33 -100 / -100 -100 / -100 Lab / Micro Data Attestation: I reviewed the patient's lab results. Result Diagrams: 05/30/22 07:20 05/30/22 07:20 Labs: Laboratory Results - last 24 hr 05/29/22 05:09: Diff Path Review Reviewed 05/29/22 05:09: Sodium 127 L, Potassium 4.1, Chloride 89 L, Carbon Dioxide 30.0, Anion Gap 8, BUN 36 H, Creatinine 0.61, Estim Creat Clear Calc 48.10, Est GFR (MDRD) Af Amer 125, Est GFR (MDRD) Non-Af 103, BUN/Creatinine Ratio 59.0 H, Glucose 200 H, Calcium 8.0 L, Total Bilirubin 0.60, AST 23, ALT 35, Alkaline Phosphatase 111, Total Protein 6.8, Albumin 2.1 L, Globulin 4.7 H, Albumin/Globulin Ratio 0.4 L 05/29/22 06:37: POC Glucose 231 H 05/29/22 11:09: POC Glucose 256 H 05/29/22 16:11: POC Glucose 287 H 05/29/22 21:10: POC Glucose 293 H Micro: Microbiology 05/26/22 16:10 Sputum, Expectorated/Coughed Gram Stain - Final 05/26/22 16:10 Sputum, Expectorated/Coughed Respiratory Culture - Preliminary Possible Fungus 05/18/22 18:10 Blood Culture (Wb) - Anticubital Right Blood Culture - Final No growth in 5 days. 05/18/22 19:00 Blood Culture (Wb) - Anticubital Right Blood Culture - Final No growth in 5 days. 05/18/22 21:20 Urine, Clean Catch Streptococcus pneumoniae Antigen (M - Final 05/18/22 21:20 Urine, Clean Catch Legionella Antigen - Final Legionella Antigen 05/18/22 18:37 Nasal Secretion SARS-CoV-2 & FLU Antigen (Rapid) - Final Radiography Diagnostic Testing: Radiology Impression Chest X-Ray 05/27/22 11:31 IMPRESSION: Hyperinflation. New left lower lobe infiltrate. Improved aeration of the right upper lobe and right lower lobe. Electronically Signed: Paul Moctezuma MD at 12:58 EDT , Rhythm Strip Rhythm Strip: A-fib Rate: 117 Ectopy: PVC(s) Physical Exam Const alert and no apparent distress General Appearance: cooperative HEENT normocephalic and head/scalp atraumatic Eyes PERRL, EOMs intact bilaterally and conjunctivae normal Neck supple General: trachea midline Chest inspection of chest normal Resp Effort and Inspection: tachypneic Auscultation: diminished lung sounds Cardio S1 normal heart sound and S2 normal heart sound Rate: tachycardic GI normal to inspection, nondistended, normoactive bowel sounds Extremity no clubbing, cyanosis or edema Skin no rashes or lesions noted Neuro CN's II-XII intact bilaterally, moves all extremities and no focal motor deficits Psych cooperative and affect normal Charges/Coding Visit Charges Inpatient E&M: 21397 Subs Hosp L2
[2022-05-30 06:45] LABS: Bedside Glucose 211 mg/dL (74-106)
--- NOTE | 2022-05-30 07:42 | PCM.PN.HOSP ---
Subjective Subjective Patient seen participating in physical therapy. Still remains clinically stable despite increase in WBC count. Plan is to assess for possible discharge once WBC count starts trending down. Sputum culture so far positive for possible fungus. Physical examination did reveal presence of oral candidiasis. Patient started on nystatin the day prior Objective Data Objective Data Vital Signs: Vital Signs Temp Pulse Resp BP Pulse Ox O2 Del Method O2 Flow Rate 97.5 F L 105 H 24 H 96/58 L 97 Nasal Cannula 5 05/30/22 06:12 05/30/22 07:00 05/30/22 06:12 05/30/22 06:12 05/30/22 06:12 05/30/22 06:12 05/30/22 06:12 FiO2 60 05/27/22 07:24 Oxygen Flow Rate (L/min) 5 Oxygen Delivery Method Nasal Cannula Weight: 57.8 kg Body Mass Index (BMI) 21.5 Intake & Output: Intake and Output for Last 24 Hours 05/28/22 05/29/22 05/30/22 23:59 23:59 23:59 Intake Total 1098.33 / 1098.33 300 / 300 Output Total 850 / 850 400 / 400 100 / 100 Balance 248.33 / 248.33 -100 / -100 -100 / -100 Lab / Micro Data Result Diagrams: 05/30/22 07:20 05/30/22 07:20 Labs: Laboratory Results - last 24 hr 05/29/22 05:09: Diff Path Review Reviewed 05/29/22 11:09: POC Glucose 256 H 05/29/22 16:11: POC Glucose 287 H 05/29/22 21:10: POC Glucose 293 H 05/30/22 06:10: POC Glucose 211 H Micro: Microbiology 05/26/22 16:10 Sputum, Expectorated/Coughed Gram Stain - Final 05/26/22 16:10 Sputum, Expectorated/Coughed Respiratory Culture - Preliminary Possible Fungus 05/18/22 18:10 Blood Culture (Wb) - Anticubital Right Blood Culture - Final No growth in 5 days. 05/18/22 19:00 Blood Culture (Wb) - Anticubital Right Blood Culture - Final No growth in 5 days. 05/18/22 21:20 Urine, Clean Catch Streptococcus pneumoniae Antigen (M - Final 05/18/22 21:20 Urine, Clean Catch Legionella Antigen - Final Legionella Antigen 05/18/22 18:37 Nasal Secretion SARS-CoV-2 & FLU Antigen (Rapid) - Final Rhythm Strip Rhythm Strip: A-fib Rate: 117 Ectopy: PVC(s) Physical Exam Narrative GENERAL: Frail looking, HEENT: Atraumatic; EYES; Anicteric, Normal Conjunctiva NECK; supple, normal thyroid, RESPIRATORY: Diminished to auscultation CARDIOVASCULAR: Regular S1 S2, GI: soft, normoactive bowel sounds, : No Renal angle tenderness; EXTREMITIES: No edema, no clubbing, MUSCULOSKELETAL: no muscle wasting NEURO: Awake; no lateralizing signs. SKIN: No Rash PSYCH; Flat affect Assessment & Plan Assessment/Plan (1) Lobar pneumonia: (2) COVID-19: (3) Atrial fibrillation with rapid ventricular response: (4) Acute hyponatremia: (5) Acute hypokalemia: PLAN: Plan Patient is a 72-year-old female with generalized weakness. She had apparently tested positive for COVID 19 4 days prior to her admission. Imaging studies obtained on admission demonstrated interstitial alveolar infiltrates in the right upper lobe in addition to consolidative changes in the right lung base. Patient also found to be single hypoxic on admission admitted to a monitored bed for further management 1. Acute hypoxic respiratory failure ? Secondary to COVID-19 pneumonia with superimposed Legionella pneumonia. Admitted to a monitored bed managed with broad-spectrum antibiotic therapy with Rocephin and azithromycin in addition to remdesivir and Decadron with consultation placed to infectious disease. Patient did not receive tocilizumab in view of her underlying Legionella infection ? 05/26/2022. Patient still has significant hypoxia and is on Airvo. Plan is to try to wean off to nasal cannula. Still has significant leukocytosis possibly related to her underlying steroid use. -05/27/2022 Patient seen WBC count trending up. Still remains on Airvo, was briefly placed on nasal cannula and had to be placed back on Airvo. Plan is to try to wean patient Airvo and place on oxygen via nasal cannula ? 05/28/2022 patient has been weaned off Airvo currently on nasal cannula maintaining adequate oxygen saturation. Chest x-ray obtained the day prior did show Hyperinflation. New left lower lobe infiltrate. Improved aeration of the right upper lobe and right lower lobe. Patient has completed her antimicrobial therapy ? 05/29/2022; WBC count remains markedly elevated at 36K however clinically patient continues to improve. Case discussed with Dr. Barksdale with ID, okay to keep patient off antibiotics since he is improving clinically -05/30/2022; Patient seen participating in physical therapy. Still remains clinically stable despite increase in WBC count. Plan is to assess for possible discharge once WBC count starts trending down. Sputum culture so far positive for possible fungus. Physical examination did reveal presence of oral candidiasis. Patient started on nystatin the day prior 2. New onset A. fib ? Thought to be precipitated by patient's underlying infection managed with drip when patient did experience rapid ventricular response subsequently switched to p.o. Cardizem. Patient also placed on amiodarone and systemic anticoagulation with apixaban 3. Acute gastroenteritis ? Thought to be viral gastroenteritis from COVID 19 manage symptomatically 4. Hypokalemia ? Corrected per protocol, With subsequent monitoring of electrolytes ordered 5. Hyponatremia ? Multifactorial including Legionella pneumonia as well as losses from her gastroenteritis on IV fluid with monitoring of electrolytes 6. Diabetes mellitus type II -patient's oral hypoglycemics held. Placed on long acting insulin, Accu-Cheks a.c. and at bedtime and covered with sliding scale insulin 7. GERD ? On PPI 8. Osteoporosis ? Patient is on alendronate 9. Dyslipidemia -Patient is on statin therapy, continued at home dose 10. Tobacco dependence - Counseled on cessation, offered nicotine patch for tobacco cravings 11. DVT prophylaxis ? On apixaban 12. Physical deconditioning - Requested for PT OT eval and social media campaign manager to assist with discharge planning ? 05/29/2022 Case discussed with patient and her daughter both agreeable to a long-term facility for rehab on discharge 10. Oral candidiasis ? Patient started on nystatin swish and swallow Charges/Coding Visit Charges Inpatient E&M: 44480 Subs Hosp L2
[2022-05-30 07:56] LABS: Absolute Lymphocyte Count 1.12 X10^3/uL (0.83-4.51); Absolute Neutrophil Count 35.2 X10^3/uL (2.0-7.7); Basophil# 0.09 X10^3/uL; Basophil% 0.2 % (0-1); Hematocrit 32.6 % (37-47); Hemoglobin 11.2 g/dL (12.0-15.0); Lymphocyte # 1.12 X10^3/ul (0.83-4.51); Mean Corp Hgb Conc 34.4 g/dL (32-36); Mean Corpuscular Hgb 30.4 pg (27.0-32.0); Mean Corpuscular Volume 88.6 fL (81-99); Mean Platelet Vol. 10.3 fl (6.2-12.0); Monocyte# 1.06 X10^3/uL; Monocyte% 2.8 % (0-10); NRBC Flagged by Analyzer 0 % (0-5); Neutrophil # 35.15 X10^3/uL (2.7-7.7); Neutrophil % 93.2 % (47-70); POSITIVE COUNT YES; POSITIVE DIFFERENTIAL YES; Platelet Count 472 K/mm3 (150-450); RBC Distribution Width CV 14.2 % (11.6-14.6); RBC Distribution Width SD 45.6 fl (35.1-43.9); Red Blood Count 3.68 M/mm3 (4.2-5.4)
[2022-05-30] MEDS: Ipratropium/Albuterol Sulfate 3 ML AMPUL.NEB INHALATION ×2 (07:59→11:56)
[2022-05-30 08:11] LABS: Differential Indicated SCAN CRITERIA MET; White Blood Count 37.7 K/mm3 (4.4-11.0)
--- NOTE | 2022-05-30 08:12 | NURSING ---
Primary RN Bernabe notified of critical lab result; WBC 37.7
[2022-05-30 08:24] LABS: Anion Gap 8 (5-15); BUN 36 mg/dL (7-18); BUN/Creat Ratio 69.9 RATIO (10-20); Calcium,Total 8.2 mg/dL (8.5-10.1); Chloride 93 mmol/L (98-107); Creatinine, Serum 0.52 mg/dL (0.55-1.02); EST Glomerular Filtration Rate 125 mL/min (>60); Est Glom Filt Rate - Afr Amer 152 mL/min (>60); Estimated Creatinine Clearance 47.77 ml/min; Glucose 194 mg/dL (74-106); Potassium 3.7 mmol/L (3.5-5.1); Sodium Level 130 mmol/L (136-145)
[2022-05-30] MEDS: Pantoprazole Sodium 40 MG Tablet PO (08:28)
[2022-05-30] MEDS: Amiodarone 200 MG Tablet PO ×3 (08:28→16:53)
[2022-05-30] MEDS: guaiFENesin 1,200 MG Tablet 1200 MG PO ×2 (08:28→23:07)
[2022-05-30] MEDS: APIXABAN 5 MG TABLET PO ×2 (08:29→23:08)
[2022-05-30] MEDS: Sodium Chloride 0.65% 1 SPRAY SPRAY.BTL NASAL ×2 (08:29→23:13)
[2022-05-30] MEDS: NYSTATIN 500,000 UNIT/5 ML UDC 500000 UNIT PO ×3 (08:29→23:07)
[2022-05-30] MEDS: Insulin Glargine-YFGN 100 UNIT/ML Pen 10 UNIT SC (08:33)
[2022-05-30 08:44] LABS: Platelet Estimate ADEQUATE (ADEQ); Red Cell Morphology NORM C+C NORMAL (NORM C&C)
[2022-05-30 13:10] LABS: Bedside Glucose 235 mg/dL (74-106)
[2022-05-30 17:30] LABS: Bedside Glucose 210 mg/dL (74-106)
--- NOTE | 2022-05-30 17:41 | RAD_ITS ---
INDICATION: Abd discomfort/emesis EXAMINATION/TECHNIQUE: X-RAY - XR Abdomen 1 View COMPARISON: 05/27/2022 FINDINGS: BOWEL GAS PATTERN: Non-obstructive. Small to moderate amount retained stool in the colon. FREE AIR: Not assessed on a single supine view. ORGANOMEGALY: Not seen. CALCIFICATIONS: No abnormal calcifications observed. LOWER CHEST: Unchanged bibasilar infiltrates. BONES AND SOFT TISSUES: Degenerative changes of the visualized thoracolumbar spine and hips. RAD/Abdomen Single View (Portable) IMPRESSION: Non-obstructive bowel gas pattern. Small to moderate amount retained stool in the colon. Electronically Signed: Pierre Snyder MD at 19:46 EDT ,
[2022-05-30] MEDS: QUEtiapine 25 MG Tablet 50 MG PO (23:07)
[2022-05-30] MEDS: dilTIAZem CD 120 MG Capsule PO (23:07)
[2022-05-30] MEDS: Atorvastatin Calcium 20 MG Tablet PO (23:08)
[2022-05-30 23:55] LABS: Bedside Glucose 184 mg/dL (74-106)
[2022-05-31] VITALS (14 sets, daily range): BP systolic 97–114; BP diastolic 61–71; PULSE 75–99; RESP 18–20; TEMP 35.4–37; O2SAT 92–98
--- NOTE | 2022-05-31 07:02 | PCM.PN.INT ---
Assessment & Plan Assessment/Plan (1) COVID-19: PLAN: Plan RECOMMENDATIONS: 1. Wean oxygen to maintain saturations at or above 90%. 2. Intermittent use of diuretics to maintain euvolemic state. 3. Continue scheduled bronchodilators. 4. Continue amiodarone and Eliquis as ordered. 5. Encourage incentive spirometer use and mobilize patient as tolerated. 6. Perform walking oximetry study prior to consideration for discharge home. IMPRESSIONS: 1. Acute hypoxemic respiratory failure Appears secondary to COVID-19 with concurrent Legionella pneumonia in a patient at risk for obstructive lung disease. The patient has completed a treatment courses of remdesivir, decadron and antimicrobials. Plan to continue supplemental oxygen to maintain saturations greater than 90%. Continue intermittent use of diuretics to maintain euvolemic state. Encourage incentive spirometer use and mobilize patient as tolerated. Continue scheduled bronchodilator therapy. 2. New onset atrial fibrillation Continue current medical management including amiodarone and Eliquis. 3. Chronic tobacco dependency/diabetes mellitus/osteoarthritis/hyperlipidemia Complicates care, management, recovery and prognosis. Continue home medications as indicated. This note was generated with [employer] dictation software. It may contain incorrect words, spelling, and punctuation that were not noted in checking the note before signing. Subjective Subjective The patient was seen and examined at the bedside this morning. Events from the last 24 hours have been reviewed. The patient is currently afebrile, hemodynamically stable and maintaining appropriate oxygen saturations on 6 L/min via nasal cannula. She is currently documented to be overall net +5.6 L for the hospitalization. Disposition planning is underway for a jail facility. Objective Data Objective Data The patient's most recent lab work, culture data and imaging studies have all been personally reviewed. Surface echocardiogram completed on May 19 demonstrated normal LV size and function with an ejection fraction of 60%. Legionella antigen was positive on May 18. COVID PCR was positive on May 18. Preliminary sputum culture is demonstrating growth of possible fungus. Vital Signs: Vital Signs Temp Pulse Resp BP Pulse Ox O2 Del Method O2 Flow Rate 98.6 F 84 19 H 103/65 94 Nasal Cannula 6 05/31/22 05:00 05/31/22 05:00 05/31/22 05:00 05/31/22 05:00 05/31/22 05:00 05/31/22 05:00 05/31/22 05:00 FiO2 60 05/27/22 07:24 Oxygen Flow Rate (L/min) 6 Oxygen Delivery Method Nasal Cannula Weight: 133 lb 6.075 oz Body Mass Index (BMI) 21.5 Intake & Output: Intake and Output for Last 24 Hours 05/29/22 05/30/22 05/31/22 23:59 23:59 23:59 Intake Total 300 / 300 240 / 240 Output Total 400 / 400 450 / 550 100 / 100 Balance -100 / -100 -210 / -310 -100 / -100 Lab / Micro Data Attestation: I reviewed the patient's lab results. Result Diagrams: 05/31/22 07:25 05/31/22 07:25 Labs: Laboratory Results - last 24 hr 05/30/22 07:20: WBC 37.7 H*, RBC 3.68 L, Hgb 11.2 L, Hct 32.6 L, MCV 88.6, MCH 30.4, MCHC 34.4, RDW Std Deviation 45.6 H, RDW Coeff of Palak 14.2, Plt Count 472 H, MPV 10.3, Immature Gran % (Auto) 0.800, Neut % (Auto) 93.2 H, Lymph % (Auto) 3.0 L, [place] % (Auto) 2.8, Eos % (Auto) 0.0, Baso % (Auto) 0.2, Absolute Neuts (auto) 35.2 H, Absolute Lymphs (auto) 1.12, Nucleated RBC % 0, Differential Comment , Diff Path Review May , Platelet Estimate ADEQUATE, RBC Morphology NORM C+C 05/30/22 07:20: Sodium 130 L, Potassium 3.7, Chloride 93 L, Carbon Dioxide 29.0, Anion Gap 8, BUN 36 H, Creatinine 0.52 L, Estim Creat Clear Calc 47.77, Est GFR (MDRD) Af Amer 152, Est GFR (MDRD) Non-Af 125, BUN/Creatinine Ratio 69.9 H, Glucose 194 H, Calcium 8.2 L 05/30/22 12:40: POC Glucose 235 H 05/30/22 16:49: POC Glucose 210 H 05/30/22 23:19: POC Glucose 184 H Micro: Microbiology 05/26/22 16:10 Sputum, Expectorated/Coughed Gram Stain - Final 05/26/22 16:10 Sputum, Expectorated/Coughed Respiratory Culture - Preliminary Possible Fungus 05/18/22 18:10 Blood Culture (Wb) - Anticubital Right Blood Culture - Final No growth in 5 days. 05/18/22 19:00 Blood Culture (Wb) - Anticubital Right Blood Culture - Final No growth in 5 days. 05/18/22 21:20 Urine, Clean Catch Streptococcus pneumoniae Antigen (M - Final 05/18/22 21:20 Urine, Clean Catch Legionella Antigen - Final Legionella Antigen 05/18/22 18:37 Nasal Secretion SARS-CoV-2 & FLU Antigen (Rapid) - Final Radiography Diagnostic Testing: Radiology Impression KUB X-Ray 05/30/22 17:41 IMPRESSION: Non-obstructive bowel gas pattern. Small to moderate amount retained stool in the colon. Electronically Signed: Pierre Snyder MD at 19:46 EDT , Rhythm Strip Rhythm Strip: A-fib Rate: 117 Ectopy: PVC(s) Physical Exam Const alert and no apparent distress General Appearance: cooperative HEENT normocephalic and head/scalp atraumatic Eyes PERRL, EOMs intact bilaterally and conjunctivae normal Neck supple General: trachea midline Chest inspection of chest normal Resp Effort and Inspection: tachypneic Auscultation: diminished lung sounds Cardio S1 normal heart sound and S2 normal heart sound Rate: tachycardic GI normal to inspection, nondistended, normoactive bowel sounds Extremity no clubbing, cyanosis or edema Skin no rashes or lesions noted Neuro CN's II-XII intact bilaterally, moves all extremities and no focal motor deficits Psych cooperative and affect normal Charges/Coding Visit Charges Inpatient E&M: 52837 Subs Hosp L2
[2022-05-31] MEDS: Insulin Lispro 100 UNIT/ML INSULN.PEN SC ×3 (07:48→16:08)
[2022-05-31 07:56] LABS: Absolute Lymphocyte Count 1.09 X10^3/uL (0.83-4.51); Absolute Neutrophil Count 30.2 X10^3/uL (2.0-7.7); Basophil# 0.06 X10^3/uL; Basophil% 0.2 % (0-1); Eosinophil# 0.04 X10^3/uL; Eosinophils% 0.1 % (0-5); Hematocrit 32.9 % (37-47); Lymphocyte # 1.09 X10^3/ul (0.83-4.51); Lymphocyte % 3.3 % (19-41); Mean Corp Hgb Conc 33.4 g/dL (32-36); Mean Corpuscular Hgb 30.4 pg (27.0-32.0); Mean Corpuscular Volume 90.9 fL (81-99); Mean Platelet Vol. 10.4 fl (6.2-12.0); Monocyte# 1.08 X10^3/uL; Monocyte% 3.3 % (0-10); NRBC Flagged by Analyzer 0 % (0-5); Neutrophil # 30.22 X10^3/uL (2.7-7.7); Neutrophil % 92.2 % (47-70); POSITIVE COUNT YES; POSITIVE DIFFERENTIAL YES; Platelet Count 436 K/mm3 (150-450); RBC Distribution Width CV 14.3 % (11.6-14.6); RBC Distribution Width SD 47.8 fl (35.1-43.9); Red Blood Count 3.62 M/mm3 (4.2-5.4)
[2022-05-31 08:02] LABS: Differential Indicated SCAN CRITERIA MET; White Blood Count 32.8 K/mm3 (4.4-11.0)
[2022-05-31 08:08] LABS: Anion Gap 7 (5-15); BUN 40 mg/dL (7-18); BUN/Creat Ratio 64.8 RATIO (10-20); Calcium,Total 7.8 mg/dL (8.5-10.1); Chloride 91 mmol/L (98-107); Creatinine, Serum 0.62 mg/dL (0.55-1.02); EST Glomerular Filtration Rate 102 mL/min (>60); Est Glom Filt Rate - Afr Amer 123 mL/min (>60); Glucose 197 mg/dL (74-106); Sodium Level 128 mmol/L (136-145)
[2022-05-31 08:16] LABS: Bedside Glucose 194 mg/dL (74-106)
[2022-05-31 08:33] LABS: Platelet Estimate ADEQUATE (ADEQ); Red Cell Morphology NORM C+C NORMAL (NORM C&C)
[2022-05-31] MEDS: Amiodarone 200 MG Tablet PO ×3 (08:41→16:08)
[2022-05-31] MEDS: Insulin Glargine-YFGN 100 UNIT/ML Pen 10 UNIT SC (08:41)
[2022-05-31] MEDS: APIXABAN 5 MG TABLET PO (08:41)
[2022-05-31] MEDS: guaiFENesin 1,200 MG Tablet 1200 MG PO (08:41)
[2022-05-31] MEDS: Pantoprazole Sodium 40 MG Tablet PO (08:41)
[2022-05-31] MEDS: dilTIAZem CD 120 MG Capsule PO (08:41)
[2022-05-31 11:55] LABS: Bedside Glucose 297 mg/dL (74-106)
--- NOTE | 2022-05-31 15:53 | TREXTCAR_ITS ---
Diet Diet Order/Speech Therapy: 05/26/22 11:34 Diet: Consistent Carb - Calorie Controlled Food consistency:: Regular Liquid Consistency:: Regular/Thin Type of Dietary Supplement:: Glucerna Shake Is pt able to select menu?: Yes Diet Comments: 4 oz w/ meals - prefers chocolate How many daily calories?: 1600 calorie Routine Orders/Code Status O2 Liters per Minute: 4 O2 Frequency: On ambulation, 6 to 8 L via nasal cannula Keep PO Greater than or Equal to (%): 90 Routine Lab Work: CBC (0n 06/02/22 and 06/05/22), BMP (on 06/02/22) and - (Fingerstick blood sugars AC nightly, coverage with Humalog subcu per sliding scale: 200-250: 5 units, 251-300: 8 units, 301-350: 12 units) Code Status: Full Code Therapies Weight Bearing: Full weight bearing Physical Therapy: Eval and Treat Occupational Therapy: Eval and Treat Problem/Diagnosis (1) COVID-19: Status: Acute Code(s): U07.1 - COVID-19 Comment: Completed treatment (2) Legionella pneumonia: Status: Acute Code(s): A48.1 - Legionnaires' disease Comment: Completed treatment (3) Weakness: Status: Acute Code(s): R53.1 - Weakness (4) Respiratory failure with hypoxia: Status: Acute Code(s): J96.91 - Respiratory failure, unspecified with hypoxia (5) History of diabetes mellitus: Status: Chronic Code(s): Z86.39 - Personal history of other endocrine, nutritional and metabolic disease (6) Acute hypokalemia: Status: Acute Code(s): E87.6 - Hypokalemia (7) Paroxysmal A-fib: Status: Acute Code(s): I48.0 - Paroxysmal atrial fibrillation Comment: On rate control medication and anticoagulation (8) Leukocytosis: Status: Acute Code(s): D72.829 - Elevated white blood cell count, unspecified Comment: Etiology unclear Allergies/Procedures Done in Hospital Allergies No Known Allergies Allergy (Verified 05/18/22 16:09) Procedures: 2-D Echocardiogram Type of Care/Length of Stay Estimated LOS: Convalescent Care Less Than 30 days Type of Care Needed: Skilled Rehab Potential: Good Prognosis: Good Additional Orders/Day of Discharge H&P will serve as current which was dated: 05/18/22 Day of Discharge: 05/31/22 Dietary and Speech Recommendations Dietitian Recommendations/Changes: will continue 1600 calorie controlled given variable PO intake; will continue glucerna 120mL w/ meals for additional calories/protein if consumed. Discharge Plan Admission Admit Date/Time: 05/18/22 18:21 Primary Reason for Your Visit: Hypoxic respiratory failure, Legionella pneumonia, COVID-19 Attending Provider: Gerald Low Primary Care Provider: Misael Molina Consulting Providers: Jackson Graham ; Travis Germain ; Roselyn Polanco CNA LTC ; Filiberto Edge ; Dax Barksdale ; Tenzin Schwartz Discharge Orders/Prescriptions Prescriptions: New acetaminophen [Tylenol] 325 mg Tablet 650 mg PO Q6H PRN PRN (Reason: Pain Score 1-10/Temp > 100.7 F) Qty: 0 0RF diltiazem HCl 120 mg Capsule,Extended Release 24hr 120 mg PO Q12 Qty: 0 0RF Eliquis 5 mg Tablet 5 mg PO BID Qty: 0 0RF insulin glargine-yfgn 100 unit/mL (3 mL) Insulin Pen 10 unit subcut DAILY Qty: 0 0RF quetiapine 25 mg Tablet 25 mg PO QHS Qty: 0 0RF ipratropium-albuterol 0.5 mg-3 mg(2.5 mg base)/3 mL Solution For Nebulization 3 ml inhalation 4X/DAY Qty: 0 0RF sennosides-docusate sodium [Stool Softener-Stimulant Laxat] 8.6-50 mg Tablet 2 tab PO BID PRN PRN (Reason: Constipation) Qty: 0 0RF Deep Sea Nasal 0.65 % Aerosol,[place] 1 spray NASAL BID Qty: 0 0RF Continued metformin 500 mg tablet 500 mg PO DAILY Label Comments: TAKE 1 TABLET BY MOUTH ONCE DAILY atorvastatin 20 mg tablet 20 mg PO QHS Label Comments: TAKE 1 TABLET BY MOUTH ONCE DAILY ondansetron HCl 4 mg tablet 4 mg PO TID PRN PRN (Reason: Nausea) alendronate 70 mg tablet 70 mg PO MO Label Comments: TAKE 1 TABLET BY MOUTH ONCE A WEEK. TAKE BEFORE FOOD OR DRINK AND SIT UPRIGHT FOR 30 MINUTES AFTER TAKING omeprazole 40 mg capsule,delayed release(DR/EC) 40 mg PO DAILY methenamine hippurate 1 gram tablet 1 g PO QHS Label Comments: TAKE 1 TABLET BY MOUTH EVERY DAY AT BEDTIME Discontinued naproxen [EC-Naproxen] 500 mg tablet,delayed release (DR/EC) 500 mg PO BID Label Comments: TAKE 1 TABLET BY MOUTH TWICE DAILY Referrals / Follow Up: Misael Molina MD [Primary Care Provider] - Disposition Disposition (needs filled in before D/C Order can be placed): Shelter Facility
--- NOTE | 2022-05-31 16:17 | DS.PCM_ITS ---
Providers Date of Admission: 05/18/22 Date of Discharge: 05/31/22 Primary Care Physician: Dr. Misael Molina MD Consultations 05/18/22 19:39 Consult: Infectious Disease Routine Consulting Provider: Dax Barksdale Reason for Consult: Covid-19, Legionella pneumonia, persistent leukocytosis EMERGENT Consult: No MD Notified: Yes Date Notified: 05/19/22 Time Notified: 07:52 Method of Notification: Answering Service 05/19/22 09:11 Consult: Steam Fitter / Pulmonary Medicine Routine Consulting Provider: Pulmonary Medicine cayden [place] Reason for Consult: ACUTE hypoxic resp failure, needs AIRVO, Bipap?, ABG ordered, covid EMERGENT Consult: No MD Notified: Yes Date Notified: 05/19/22 Time Notified: 09:12 Method of Notification: Text Reason For Visit: COVID 19 PNEUMONIA Diagnosis Discharge Diagnosis (1) COVID-19: Status: Acute Code(s): U07.1 - COVID-19 (2) Legionella pneumonia: Status: Acute Code(s): A48.1 - Legionnaires' disease (3) Weakness: Status: Acute Code(s): R53.1 - Weakness (4) Respiratory failure with hypoxia: Status: Acute Code(s): J96.91 - Respiratory failure, unspecified with hypoxia (5) History of diabetes mellitus: Status: Chronic Code(s): Z86.39 - Personal history of other endocrine, nutritional and metabolic disease (6) Acute hypokalemia: Status: Acute Code(s): E87.6 - Hypokalemia (7) Paroxysmal A-fib: Status: Acute Code(s): I48.0 - Paroxysmal atrial fibrillation (8) Leukocytosis: Status: Acute Code(s): D72.829 - Elevated white blood cell count, unspecified Plan Final diagnosis: #1 acute hypoxic respiratory failure-secondary to COVID-19 pneumonia with concurrent Legionella pneumonia #2 new onset atrial fibrillation-converted to sinus rhythm #3 type 2 diabetes #4 hyperlipidemia #5 osteoarthritis #6 hypokalemia #7 leukocytosis-etiology unknown #8 Legionella pneumonia #9 COVID-19 pneumonia Medications at Discharge Home Medications alendronate 70 mg tablet 70 mg PO MO 05/18/22 atorvastatin 20 mg tablet 20 mg PO QHS 05/18/22 metformin 500 mg tablet 500 mg PO DAILY 05/18/22 methenamine hippurate 1 gram tablet 1 g PO QHS 05/18/22 omeprazole 40 mg capsule,delayed release 40 mg PO DAILY 05/18/22 ondansetron HCl 4 mg tablet 4 mg PO TID PRN PRN Nausea 05/18/22 acetaminophen 325 mg tablet (Tylenol) 650 mg PO Q6H PRN PRN Pain Score 1-10/Temp > 100.7 F #0 tabs 05/31/22 apixaban 5 mg tablet (Eliquis) 5 mg PO BID #0 tabs 05/31/22 diltiazem HCl 120 mg capsule,extended release 24 hr 120 mg PO Q12 #0 caps 05/31/22 insulin glargine-yfgn 100 unit/mL (3 mL) subcutaneous pen 10 unit (0.1 mL) subcut DAILY #0 mL 05/31/22 ipratropium 0.5 mg-albuterol 3 mg (2.5 mg base)/3 mL nebulization soln 3 ml inhalation 4X/DAY #0 mL 05/31/22 quetiapine 25 mg tablet 25 mg PO QHS #0 tabs 05/31/22 sennosides 8.6 mg-docusate sodium 50 mg tablet (Stool Softener-Stimulant Laxative) 2 tab PO BID PRN PRN Constipation #0 tabs 05/31/22 sodium chloride 0.65 % nasal spray aerosol (Deep Sea Nasal) 1 spray NASAL BID #0 mL 05/31/22 Hospital Course Operations None Procedures 2-D Echocardiogram Summary of Care Provided Minutes Spent on Discharge: 31 Hospital Course: 72-year-old white female was seen in the emergency room at [facility] with complaints of intermittent nausea vomiting and diarrhea and generalized weakness. Patient had been diagnosed with COVID-19 4 days prior at her physician's office. Examination showed the patient to be tachycardic with heart rates between 140 and 163, pulse ox on room air was 91%, EKG showed A. fib with RVR, labs showed an elevated white blood cell count at 21.9, chemistry profile was abnormal for sodium of 123, potassium of 2.8, and a BUN of 19. Troponin was slightly elevated, chest x-ray revealed a right upper lobe pneumonia. Patient was given IV antibiotics, IV fluids, and started on a Cardizem drip after Cardizem bolus. She was initially admitted to the PCU, she was maintained on IV antibiotics and supplemental potassium was administered. Patient's respiratory status deteriorated however and she became more hypoxic, patient was requiring Airvo, she was seen by critical care and infectious diseases, she was given IV remdesivir, further testing revealed that the patient was positive for Legionella, antibiotics were adjusted accordingly. Patient converted to normal sinus rhythm during her hospitalization, patient was seen by PT and OT, she underwent a long hospitalization with improvement and her overall oxygenation to the point where she could be discharged to a [place] [facility] facility for further rehab services. On 05/31/2022, patient was seen and examined: On examination she appeared frail but medically stable, she does not appear to be in any distress. Vital signs as documented. Skin warm and dry and without overt rashes. Neck without JVD, thyroid appears normal, trachea is midline, neck is supple. Lungs clear, normal air movement was noted. Heart exam notable for regular rhythm, normal sounds and absence of murmurs, rubs or gallops. Abdomen unremarkable and without evidence of organomegaly, masses, or abdominal aortic enlargement, bowel sounds are present in all 4 quadrants, no abdominal tenderness was noted. Extremities nonedematous, no cyanosis was noted, no clubbing was noted. Neuro: Cranial nerves II through XII are grossly intact, no focal motor deficits were noted, sensation to light touch and pinprick is intact, motor exam 5/5 throughout. Psych: Patient is alert and oriented x3, she does not appear anxious or depressed, she does not appear agitated. Patient appeared medically stable for transfer to a [place] [facility] facility on 05/31/2022 for inpatient rehab services. Weight / BMI Weight Weight: 60.5 kg Body Mass Index (BMI) 21.5 ABG / Lab / Microbiology Data Result Diagrams: 05/31/22 07:25 05/31/22 07:25 Laboratory: Laboratory Results - last 24 hr 05/30/22 16:49: POC Glucose 210 H 05/30/22 23:19: POC Glucose 184 H 05/31/22 07:25: WBC 32.8 H*, RBC 3.62 L, Hgb 11.0 L, Hct 32.9 L, MCV 90.9, MCH 30.4, MCHC 33.4, RDW Std Deviation 47.8 H, RDW Coeff of Palak 14.3, Plt Count 436, MPV 10.4, Immature Gran % (Auto) 0.900, Neut % (Auto) 92.2 H, Lymph % (Auto) 3.3 L, [place] % (Auto) 3.3, Eos % (Auto) 0.1, Baso % (Auto) 0.2, Absolute Neuts (auto) 30.2 H, Absolute Lymphs (auto) 1.09, Nucleated RBC % 0, Diff Path Review February, Platelet Estimate ADEQUATE, RBC Morphology NORM C+C 05/31/22 07:25: Sodium 128 L, Potassium 4.0, Chloride 91 L, Carbon Dioxide 30.0, Anion Gap 7, BUN 40 H, Creatinine 0.62, Estim Creat Clear Calc 50.00, Est GFR (MDRD) Af Amer 123, Est GFR (MDRD) Non-Af 102, BUN/Creatinine Ratio 64.8 H, Glucose 197 H, Calcium 7.8 L, Magnesium 3.0 H 05/31/22 07:43: POC Glucose 194 H 05/31/22 11:01: POC Glucose 297 H Microbiology: Microbiology 05/26/22 16:10 Sputum, Expectorated/Coughed Gram Stain - Final 05/26/22 16:10 Sputum, Expectorated/Coughed Respiratory Culture - Preliminary Possible Fungus 05/18/22 18:10 Blood Culture (Wb) - Anticubital Right Blood Culture - Final No growth in 5 days. 05/18/22 19:00 Blood Culture (Wb) - Anticubital Right Blood Culture - Final No growth in 5 days. 05/18/22 21:20 Urine, Clean Catch Streptococcus pneumoniae Antigen (M - Final 05/18/22 21:20 Urine, Clean Catch Legionella Antigen - Final Legionella Antigen 05/18/22 18:37 Nasal Secretion SARS-CoV-2 & FLU Antigen (Rapid) - Final Radiography Diagnostic Testing: Radiology Impression KUB X-Ray 05/30/22 17:41 IMPRESSION: Non-obstructive bowel gas pattern. Small to moderate amount retained stool in the colon. Electronically Signed: Pierre Snyder MD at 19:46 EDT , Meaningful Use Info Meaningful Use Diagnoses (Choose all that apply): None applicable Discharge Plan Admission Admit Date/Time: 05/18/22 18:21 Primary Reason for Your Visit: Hypoxic respiratory failure, Legionella pneumon ia, COVID-19 Attending Provider: Gerald Low Primary Care Provider: Misael Molina Consulting Providers: Jackson Graham ; Travis Germain ; Roselyn Polanco NP ; Filiberto Edge ; Dax Barksdale ; Tenzin Schwartz Discharge Orders/Prescriptions Prescriptions: New acetaminophen [Tylenol] 325 mg Tablet 650 mg PO Q6H PRN PRN (Reason: Pain Score 1-10/Temp > 100.7 F) Qty: 0 0RF diltiazem HCl 120 mg Capsule,Extended Release 24hr 120 mg PO Q12 Qty: 0 0RF Eliquis 5 mg Tablet 5 mg PO BID Qty: 0 0RF insulin glargine-yfgn 100 unit/mL (3 mL) Insulin Pen 10 unit subcut DAILY Qty: 0 0RF quetiapine 25 mg Tablet 25 mg PO QHS Qty: 0 0RF ipratropium-albuterol 0.5 mg-3 mg(2.5 mg base)/3 mL Solution For Nebulization 3 ml inhalation 4X/DAY Qty: 0 0RF sennosides-docusate sodium [Stool Softener-Stimulant Laxat] 8.6-50 mg Tablet 2 tab PO BID PRN PRN (Reason: Constipation) Qty: 0 0RF [place] Nasal 0.65 % Aerosol,[place] 1 spray NASAL BID Qty: 0 0RF Continued metformin 500 mg tablet 500 mg PO DAILY Label Comments: TAKE 1 TABLET BY MOUTH ONCE DAILY atorvastatin 20 mg tablet 20 mg PO QHS Label Comments: TAKE 1 TABLET BY MOUTH ONCE DAILY ondansetron HCl 4 mg tablet 4 mg PO TID PRN PRN (Reason: Nausea) alendronate 70 mg tablet 70 mg PO MO Label Comments: TAKE 1 TABLET BY MOUTH ONCE A WEEK. TAKE BEFORE FOOD OR DRINK AND SIT UPRIGHT FOR 30 MINUTES AFTER TAKING omeprazole 40 mg capsule,delayed release(DR/EC) 40 mg PO DAILY methenamine hippurate 1 gram tablet 1 g PO QHS Label Comments: TAKE 1 TABLET BY MOUTH EVERY DAY AT BEDTIME Discontinued naproxen [EC-Naproxen] 500 mg tablet,delayed release (DR/EC) 500 mg PO BID Label Comments: TAKE 1 TABLET BY MOUTH TWICE DAILY Referrals / Follow Up: Misael Molina MD [Primary Care Provider] - Disposition Disposition (needs filled in before D/C Order can be placed): Senior Living Facility Charges/Coding Visit Charges Inpatient E&M: 84921 Disch Hosp
[2022-05-31 16:36] LABS: Bedside Glucose 241 mg/dL (74-106)
--- NOTE | 2022-05-31 18:00 | CASEMGMT ---
Social Work Note Pt to discharge to [facility] today. SW completed [facility] in [facility] and faxed to [facility]. Megan Blackburn ELECTRONICS TECHNICIAN APPRENTICE, BALLPOINT PEN CARTRIDGE TESTER
[2022-05-31] MEDS: Ondansetron 4 MG/2 ML Vial IV (19:33)
[2022-05-31] MEDS: 0.9% Saline Lock 10 ML Syringe IV (19:33)
--- NOTE | 2022-05-31 21:25 | NURSING ---
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
[2022-06-03 07:12] LABS: Pathologist Review Reviewed
[2022-06-03 07:18] LABS: Pathologist Review Reviewed
== END 2022-05-31 21:35 | disposition skilled nursing facility (03) | DRG 177 ==
LOC: ED 17:52 → PCU 18:47
PROVIDERS: Family Medicine; Internal Medicine; Internal Medicine Critical Care Medicine; Admitting Provider Internal Medicine; Emergency Provider Emergency Medicine; PCP Family Medicine; Visit Provider Internal Medicine
DX: U07.1 COVID-19 (principal); J96.01 Acute respiratory failure with hypoxia; J12.82 Pneumonia due to coronavirus disease 2019; A48.1 Legionnaires' disease; E87.1 Hypo-osmolality and hyponatremia; E87.3 Alkalosis; J44.0 Chronic obstructive pulmonary disease with (acute) lower respiratory infection; E11.65 Type 2 diabetes mellitus with hyperglycemia; B96.89 Other specified bacterial agents as the cause of diseases classified elsewhere; I48.0 Paroxysmal atrial fibrillation; E86.0 Dehydration; E87.8 Other disorders of electrolyte and fluid balance, not elsewhere classified; E87.6 Hypokalemia; M19.90 Unspecified osteoarthritis, unspecified site; K52.9 Noninfective gastroenteritis and colitis, unspecified; E78.00 Pure hypercholesterolemia, unspecified; F17.210 Nicotine dependence, cigarettes, uncomplicated; E78.5 Hyperlipidemia, unspecified; I25.10 Atherosclerotic heart disease of native coronary artery without angina pectoris; K21.9 Gastro-esophageal reflux disease without esophagitis; Z79.01 Long term (current) use of anticoagulants; Z79.83 Long term (current) use of bisphosphonates; Z51.5 Encounter for palliative care; Z86.16 Personal history of COVID-19; Z66 Do not resuscitate; M81.0 Age-related osteoporosis without current pathological fracture; R77.8 Other specified abnormalities of plasma proteins; Z91.19 Patient's noncompliance with other medical treatment and regimen; Z86.39 Personal history of other endocrine, nutritional and metabolic disease
CPT/HCPCS: 36415; 36600; 71045; 71275; 74018; 80048; 80053; 80061; 80076; 82550; 82803; 82962; 83036; 83605; 83615; 83735; 83880; 84075; 84100; 84145; 84439; 84443; 84484; 85025; 85379; 85384; 85610; 85730; 86140; 87040; 87070; 87077; 87107; 87205; 87428; 87449; 87635; 93005; 93306; 94002; 94003; 94640; 94660; 94762; 97110; 97129; 97130; 97162; 97165; 97530; 97535; 99285; 99406; J7030; J7040; J7050; Q9957; Q9967; A4216; C8929; J0248; J0696; J1940; J2405; U0003; U0005

== ENCOUNTER 2022-06-03 12:42 | Emergency (ER) | payer MEDICARE, OTHER, SELFPAY ==
[2022-06-03] VITALS (10 sets, daily range): BP systolic 92–108; BP diastolic 65–72; PULSE 94–115; RESP 24–29; TEMP 35.9–36.4; O2SAT 93–96; BMI 21.5
--- NOTE | 2022-06-03 13:08 | EKG12_ITS ---
Test Reason : SHORTOF BREATH Blood Pressure : / mmHG Vent. Rate : 111 BPM Atrial Rate : 093 BPM P-R Int : 000 ms QRS Dur : 090 ms QT Int : 390 ms P-R-T Axes : 000 060 065 degrees QTc Int : 530 ms Atrial fibrillation Prolonged QT Abnormal ECG Confirmed by DUDLEY DAY, AMADEO ([id number]), school photograph editor LAZARUS RATLIFF ([id number]) on 06/05/2022 10:03:57 AM Referred By: POLLO Confirmed By:AMADEO BUCKNER MD
[2022-06-03] MEDS: Ipratropium/Albuterol Sulfate 3 ML AMPUL.NEB INHALATION (13:37)
--- NOTE | 2022-06-03 13:49 | RAD_ITS ---
INDICATION: Shortness of Breath EXAMINATION/TECHNIQUE: X-RAY - XR Chest 1 View COMPARISON: 05/30/2022. FINDINGS: LINES/DEVICES: None. LUNGS: Biapical prominence consistent with COPD changes. Prominence of the bronchovascular interstitial lung markings is visualized with scattered areas of patchy airspace opacification visualized in bilateral lung pena, linear subsegmental atelectatic streaks are visualized. The costophrenic angles are clear with no evidence of pleural fluid effusion. No evidence of pneumothorax is seen. MEDIASTINUM AND CARDIOVASCULAR STRUCTURES: Cardiac silhouette not enlarged. BONES AND SOFT TISSUES: Degenerative bone changes seen. RAD/Chest 1 View (Portable) IMPRESSION: COPD changes, bronchovascular and interstitial prominence cannot rule out subtle early infiltrates. Electronically Signed: Arnulfo Gonzalez MD at 14:07 EDT ,
[2022-06-03 14:24] LABS: Absolute Lymphocyte Count 0.94 X10^3/uL (0.83-4.51); Absolute Neutrophil Count 22.3 X10^3/uL (2.0-7.7); Basophil# 0.04 X10^3/uL; Basophil% 0.2 % (0-1); Eosinophil# 0.07 X10^3/uL; Eosinophils% 0.3 % (0-5); Hematocrit 28.5 % (37-47); Hemoglobin 9.5 g/dL (12.0-15.0); Lymphocyte # 0.94 X10^3/ul (0.83-4.51); Lymphocyte % 3.9 % (19-41); Mean Corp Hgb Conc 33.3 g/dL (32-36); Mean Corpuscular Hgb 29.8 pg (27.0-32.0); Mean Corpuscular Volume 89.3 fL (81-99); Mean Platelet Vol. 10.7 fl (6.2-12.0); Monocyte# 0.49 X10^3/uL; NRBC Flagged by Analyzer 0 % (0-5); Neutrophil # 22.32 X10^3/uL (2.7-7.7); Neutrophil % 92.6 % (47-70); POSITIVE DIFFERENTIAL YES; Platelet Count 462 K/mm3 (150-450); RBC Distribution Width CV 14.5 % (11.6-14.6); RBC Distribution Width SD 46.7 fl (35.1-43.9); Red Blood Count 3.19 M/mm3 (4.2-5.4); White Blood Count 24.1 K/mm3 (4.4-11.0)
[2022-06-03 14:25] LABS: Differential Indicated SCAN CRITERIA MET
[2022-06-03 14:46] LABS: Anion Gap 12 (5-15); BUN 32 mg/dL (7-18); BUN/Creat Ratio 34.9 RATIO (10-20); Calcium,Total 8.3 mg/dL (8.5-10.1); Chloride 86 mmol/L (98-107); Creatinine, Serum 0.92 mg/dL (0.55-1.02); EST Glomerular Filtration Rate 64 mL/min (>60); Est Glom Filt Rate - Afr Amer 78 mL/min (>60); Glucose 217 mg/dL (74-106); Potassium 3.6 mmol/L (3.5-5.1); Sodium Level 125 mmol/L (136-145); Troponin-I HS 10 pg/mL (3.0-54.0)
[2022-06-03 14:49] LABS: Lactic Acid 2.1 mmol/L (0.4-1.9)
[2022-06-03 15:00] LABS: BNP,B-Type NATRIURETIC PEPTIDE 16.2 pg/mL (0-100)
--- NOTE | 2022-06-03 15:27 | EDS_ITS ---
HPI History of Present Illness Chief Complaint: Shortness of Breath Narrative Narrative: [facility] with shortness of breath. Was reported that she was hypoxic. She had a recent hospital stay at the beginning of the month where she had tested positive for COVID and may have had bacterial pneumonia on top of this. She is currently at this facility for rehab to get stronger. She states she woke this morning with shortness of breath that has been increasing. She arrived to the emergency department on a nonrebreather. Her history and physical is limited secondary to her respiratory status. [facility] Medical History COVID-19 Diabetes Frequent urinary tract infections GERD (gastroesophageal reflux disease) High cholesterol Osteoarthritis Paroxysmal A-fib Home Medications alendronate 70 mg tablet 70 mg PO MO 05/18/22 [History Last Taken Unknown] atorvastatin 20 mg tablet 20 mg PO QHS 05/18/22 [History Last Taken Unknown] metformin 500 mg tablet 500 mg PO DAILY 05/18/22 [History Last Taken Unknown] methenamine hippurate 1 gram tablet 1 g PO QHS 05/18/22 [History Last Taken Unknown] omeprazole 40 mg capsule,delayed release 40 mg PO DAILY 05/18/22 [History Last Taken Unknown] ondansetron HCl 4 mg tablet 4 mg PO TID PRN PRN Nausea 05/18/22 [History Last Taken Unknown] acetaminophen 325 mg tablet (Tylenol) 650 mg PO Q6H PRN PRN Pain Score 1-10/Temp > 100.7 F #0 tabs 05/31/22 [Rx Last Taken Unknown] apixaban 5 mg tablet (Eliquis) 5 mg PO BID #0 tabs 05/31/22 [Rx Last Taken Unknown] diltiazem HCl 120 mg capsule,extended release 24 hr 120 mg PO Q12 #0 caps 05/31/22 [Rx Last Taken Unknown] insulin glargine-yfgn 100 unit/mL (3 mL) subcutaneous pen 10 unit (0.1 mL) subcut DAILY #0 mL 05/31/22 [Rx Last Taken Unknown] ipratropium 0.5 mg-albuterol 3 mg (2.5 mg base)/3 mL nebulization soln 3 ml inhalation 4X/DAY #0 mL 05/31/22 [Rx Last Taken Unknown] quetiapine 25 mg tablet 25 mg PO QHS #0 tabs 05/31/22 [Rx Last Taken Unknown] sennosides 8.6 mg-docusate sodium 50 mg tablet (Stool Softener-Stimulant Laxative) 2 tab PO BID PRN PRN Constipation #0 tabs 05/31/22 [Rx Last Taken Unknown] sodium chloride 0.65 % nasal spray aerosol (Deep Sea Nasal) 1 spray NASAL BID #0 mL 05/31/22 [Rx Last Taken Unknown] insulin lispro 100 unit/mL subcutaneous pen See Protocol subcut TID 06/03/22 [History Last Taken Unknown] multivitamin 1 tab PO DAILY 06/03/22 [History Last Taken Unknown] Allergy/AdvReac Type Severity Reaction Status Date / Time No Known Allergies Allergy Verified 06/03/22 12:48 Social History Smoking Status: Current every day smoker tobacco type: cigarettes ROS ROS ED ROS Narrative Mildly limited secondary to patient condition. Constitutional: No fever, no chills. HEENT: No sore throat. No neck pain. No loss of vision. No rhinorrhea. Cardiovascular: No chest pain. No palpitations. No pedal edema. Respiratory: Occasional cough, positive shortness of breath. Abdominal: No abdominal pain. No nausea. No vomiting. Genitourinary: No dysuria. No hematuria. Musculoskeletal: No myalgias. No arthralgias. Generalized weakness. Neurologic: No headaches. No dizziness. No lightheadedness. Skin: No rash. No change in color. Psychiatric: No depression. No anxiety. EXAM Physical Exam Narrative Exam Narrative: Afebrile. Vital signs noted. HEENT: Normocephalic. Atraumatic. PERRL, EOMI. Neck soft and supple. No point tenderness or step off. Cardiovascular: Regular rate and rhythm. No murmurs, rubs, or gallops appreciated. Respiratory: Positive tachypnea. Decreased breath sounds bilateral bases. Expiratory wheezing. Mild accessory muscle use. Gastrointestinal: Abdomen soft, nontender, with normoactive bowel sounds. No rebound or guarding. Neurological: Awake. Alert. Nonfocal, nonlateralizing. Skin: No rash. Normal color. No pallor. Musculoskeletal: No pedal edema. Full range of motion extremities. Const Vital Signs: 06/03/22 12:44 06/03/22 12:47 06/03/22 13:07 Temperature 96.6 F L 96.6 F L Temperature Source Temporal Temporal Pulse Rate 115 H 105 H Respiratory Rate 26 H 29 H Respiratory Effort Short of Breath Labored Respiratory Depth Normal Respiratory Pattern Normal Blood Pressure 92/66 92/66 Blood Pressure Mean 74 74 Pulse Ox 96 96 Oxygen Delivery Method Non-Rebreather Non-Rebreather Non-Rebreather Oxygen Flow Rate (L/min) 10 06/03/22 13:21 06/03/22 13:47 06/03/22 13:37 Temperature 97 F L Temperature Source Temporal Pulse Rate 99 102 H Respiratory Rate 25 H 24 H Respiratory Effort Respiratory Depth Respiratory Pattern Normal Blood Pressure 105/70 Blood Pressure Mean 81 Pulse Ox 93 93 Oxygen Delivery Method Nasal Cannula Nasal Cannula Oxygen Flow Rate (L/min) 4 06/03/22 13:43 06/03/22 15:00 06/03/22 15:00 Temperature 97.6 F L Temperature Source Temporal Pulse Rate 94 95 Respiratory Rate 25 H Respiratory Effort Respiratory Depth Respiratory Pattern Blood Pressure 108/65 Blood Pressure Mean 79 Pulse Ox 93 93 Oxygen Delivery Method Nasal Cannula Nasal Cannula Oxygen Flow Rate (L/min) 5 4 MDM MDM MDM Narrative Medical decision making narrative: Patient was given DuoNeb aerosolized treatment. She was weaned down to nasal cannula oxygen. CBC shows elevated white count of 24.1, but it has been elevated in the past at 21. Hemoglobin stable at 9.5 with hematocrit 28.5. Platelet count slightly elevated at 462 which may be an acute phase reactant. Her sodium is low at 125. She had been admitted for hyponatremia in the past. Chloride low at 86, BUN of 32 with a creatinine of 0.9 consistent with dehydration. High-sensitivity troponin 10. BNP 16. EKG interpreted by myself demonstrates atrial fibrillation at [address] changes, no STEMI, she is currently rate controlled on the monitor with a heart rate of 95. Lactic acid is elevated 2.1. Chest x-ray interpreted by myself shows COPD changes. No evidence of infiltrate. Upon repeat examination, patient is resting comfortably and is not tachypneic. I will administer Solu-Medrol 125 mg intravenously. I do feel that this is more of a COPD exacerbation, she states that she quit smoking 3 weeks ago when she was admitted to the hospital so I do feel that this is more of a COPD exacerbation and respiratory failure with hypoxia. Her lactic acid may be elevated from her dehydration. She does state that she has not been eating and drinking as much. In discussion with Dr. Antonio, patient was reportedly supposed to be discharged and wear 4 L of oxygen at all times and increased to 6 to 8 L on ambulation. It was reported that she was 77% on 5 L nasal cannula, but she has been weaned from nonrebreather and is currently satting 93% on 4 L. She is had a baseline leukocytosis over the last few days and her hyponatremia has been consistent. I will discuss the patient with Dr. Molina the medical diagnostic radiographer at the [facility] to ensure that she can be sent back and wear her oxygen, and continue treatment at the jail facility. It was agreed that the patient can be returned to the jail facility. Disposition is discharged in stable condition. Lab Data Attestation: I reviewed the patient's lab results. Labs: Laboratory Results - last 24 hr 06/03/22 06/03/22 06/03/22 13:14 13:14 13:14 WBC 24.1 H RBC 3.19 L Hgb 9.5 L Hct 28.5 L MCV 89.3 MCH 29.8 MCHC 33.3 RDW Std Deviation 46.7 H RDW Coeff of Palak 14.5 Plt Count 462 H MPV 10.7 Immature Gran % (Auto) 1.000 H Neut % (Auto) 92.6 H Lymph % (Auto) 3.9 L [place] % (Auto) 2.0 Eos % (Auto) 0.3 Baso % (Auto) 0.2 Absolute Neuts (auto) 22.3 H Absolute Lymphs (auto) 0.94 Nucleated RBC % 0 Differential Comment COMMENT Sodium 125 L Potassium 3.6 Chloride 86 L Carbon Dioxide 27.0 Anion Gap 12 BUN 32 H Creatinine 0.92 Estim Creat Clear Calc 57.40 Est GFR (MDRD) Af Amer 78 Est GFR (MDRD) Non-Af 64 BUN/Creatinine Ratio 34.9 H Glucose 217 H Lactic Acid Calcium 8.3 L Troponin I High Sens 10 B-Natriuretic Peptide 16.2 06/03/22 13:14 WBC RBC Hgb Hct MCV MCH MCHC RDW Std Deviation RDW Coeff of [place] Plt Count MPV Immature Gran % (Auto) Neut % (Auto) Lymph % (Auto) [place] % (Auto) Eos % (Auto) Baso % (Auto) Absolute Neuts (auto) Absolute Lymphs (auto) Nucleated RBC % Differential Comment Sodium Potassium Chloride Carbon Dioxide Anion Gap BUN Creatinine Estim Creat Clear Calc Est GFR (MDRD) Af Amer Est GFR (MDRD) Non-Af BUN/Creatinine Ratio Glucose Lactic Acid 2.1 H* Calcium Troponin I High Sens B-Natriuretic Peptide Radiography Diagnostic Testing: Clinical Impression(s) from Imaging Studies Chest X-Ray 06/03/22 13:49 IMPRESSION: COPD changes, bronchovascular and interstitial prominence cannot rule out subtle early infiltrates. Electronically Signed: Arnulfo Gonzalez MD at 14:07 EDT , Discharge Plan Triage Chief Complaint: Shortness of Breath ED Provider: Tk Huntley Dx/Rx/DC Orders Clinical Impression: COPD exacerbation, Acute respiratory failure with hypoxia, Hyponatremia, Dehydration, Leukocytosis, Lactic acid increased Instructions: ED COPD Flare, ED Dehydration (Adult) Prescriptions: No Action metformin 500 mg tablet 500 mg PO DAILY Label Comments: TAKE 1 TABLET BY MOUTH ONCE DAILY atorvastatin 20 mg tablet 20 mg PO QHS Label Comments: TAKE 1 TABLET BY MOUTH ONCE DAILY ondansetron HCl 4 mg tablet 4 mg PO TID PRN PRN (Reason: Nausea) alendronate 70 mg tablet 70 mg PO MO Label Comments: TAKE 1 TABLET BY MOUTH ONCE A WEEK. TAKE BEFORE FOOD OR DRINK AND SIT UPRIGHT FOR 30 MINUTES AFTER TAKING omeprazole 40 mg capsule,delayed release(DR/EC) 40 mg PO DAILY methenamine hippurate 1 gram tablet 1 g PO QHS Label Comments: TAKE 1 TABLET BY MOUTH EVERY DAY AT BEDTIME acetaminophen [Tylenol] 325 mg Tablet 650 mg PO Q6H PRN PRN (Reason: Pain Score 1-10/Temp > 100.7 F) Qty: 0 0RF diltiazem HCl 120 mg Capsule,Extended Release 24hr 120 mg PO Q12 Qty: 0 0RF Eliquis 5 mg Tablet 5 mg PO BID Qty: 0 0RF insulin glargine-yfgn 100 unit/mL (3 mL) Insulin Pen 10 unit subcut DAILY Qty: 0 0RF quetiapine 25 mg Tablet 25 mg PO QHS Qty: 0 0RF ipratropium-albuterol 0.5 mg-3 mg(2.5 mg base)/3 mL Solution For Nebulization 3 ml inhalation 4X/DAY Qty: 0 0RF sennosides-docusate sodium [Stool Softener-Stimulant Laxat] 8.6-50 mg Tablet 2 tab PO BID PRN PRN (Reason: Constipation) Qty: 0 0RF Deep Sea Nasal 0.65 % Aerosol,[place] 1 spray NASAL BID Qty: 0 0RF multivitamin Tablet 1 tab PO DAILY insulin lispro [Humalog Pen] 100 unit/mL Insulin Pen See Protocol SUBCUT TID Protocol: 6. Sliding Scale Insulin Custom Condition: 200-250 mg/dl range Dose/Route: 5 units Condition: 251-300 mg/dl range Dose/Route: 8 units Condition: 301-350 mg/dl range Dose/Route: 12 units Protocol Text: Custom Sliding Scale Primary Care Provider: Misael Molina Referrals: Misael Molina MD [Primary Care Provider] - As soon as possible Disposition Disposition: [facility] Discharge Location: [facility] [place]
[2022-06-03] MEDS: MethylPREDNISolone 125 MG/2 ML Vial IV (15:52)
--- NOTE | 2022-06-03 16:14 | ED.RN ---
report given to joleen white
--- NOTE | 2022-06-03 16:17 | NURSING ---
CALLED FOR RIDE, WILL BE A WHEELCHAIR. ETA IS 90 MIN
[2022-06-03 18:17] LABS: Reflex Lactate? Y
== END 2022-06-03 18:43 | disposition skilled nursing facility (03) ==
PROVIDERS: Emergency Provider Emergency Medicine; PCP Family Medicine; Visit Provider Emergency Medicine
DX: J44.1 Chronic obstructive pulmonary disease with (acute) exacerbation (principal); J96.01 Acute respiratory failure with hypoxia; I48.91 Unspecified atrial fibrillation; E11.9 Type 2 diabetes mellitus without complications; D72.829 Elevated white blood cell count, unspecified; E86.0 Dehydration; E87.1 Hypo-osmolality and hyponatremia; E78.00 Pure hypercholesterolemia, unspecified; Z87.891 Personal history of nicotine dependence; Z86.16 Personal history of COVID-19; R06.02 Shortness of breath
CPT/HCPCS: 99285; 71045; 80048; 83605; 83880; 84484; 85025; 87811; 93005; 94640; A4216

== ENCOUNTER 2022-06-06 14:11 | Inpatient (IN) | payer MEDICARE, OTHER, SELFPAY ==
[2022-06-06] VITALS (27 sets, daily range): BP systolic 74–96; BP diastolic 43–66; PULSE 78–113; RESP 17–34; TEMP 36.4–36.8; O2SAT 90–100; BMI 22.2; BMI 20.3
--- NOTE | 2022-06-06 14:52 | EKG12_ITS ---
Test Reason : Blood Pressure : / mmHG Vent. Rate : 109 BPM Atrial Rate : 000 BPM P-R Int : 000 ms QRS Dur : 090 ms QT Int : 346 ms P-R-T Axes : 000 067 074 degrees QTc Int : 465 ms Atrial fibrillation with rapid ventricular response Abnormal ECG Confirmed by AJ DAY, KEITH ([id number]), rewrite editor MARIA C WILKES ([id number]) on 06/10/2022 8:03:00 AM Referred By: Confirmed By:KEITH ROCHA MD
--- NOTE | 2022-06-06 14:54 | EDS_ITS ---
HPI History of Present Illness Chief Complaint: Alt LOC Informant: patient and family Onset/Context/Timing Onset: Today Context: Gradual Onset (unclear exactly w/r/t timing, but looked much better this AM) Timing: Continuous Quality: lethargic, hypoxic Current Severity: Severe Maximum Severity: Severe Worsened by: nothing Relieved by: nothing; tried increasing oxygen Associated Symptoms Associated Symptoms: pt just feels weak all over Narrative Narrative: Patient diagnosed with COVID 05/14, she was discharged from the hospital 1 week ago after also being diagnosed with Legionella pneumonia, she was [facility], she was living independently prior to the illness. She was seen here 4 days ago, she was hypoxic but after being evaluated by hospitalist determined to be okay to go back to [facility] oxygen, this morning she was doing okay and was at least alert but this afternoon she was lethargic and hypoxic and barely at 90% when staff increase her oxygen nasal cannula to 7 L. She is anticoagulated on Eliquis with a history of atrial fibrillation. When awakening her and discussing her symptoms she has no focal complaints right now. I noticed a left lower facial droop. Family states that they noticed this a week or 2 ago. Patient also had a CTA while she was admitted 2 weeks ago that was negative for pulmonary embolus. Patient is a full code, family wants her to be intubated if she needs it and the patient is unable to respond. [facility] Medical History COVID-19 Diabetes Frequent urinary tract infections GERD (gastroesophageal reflux disease) High cholesterol Osteoarthritis Paroxysmal A-fib Home Medications alendronate 70 mg tablet 70 mg PO MO 05/18/22 [History Last Taken 06/02/22] atorvastatin 20 mg tablet 20 mg PO QHS 05/18/22 [History Last Taken 06/05/22] metformin 500 mg tablet 500 mg PO DAILY 05/18/22 [History Last Taken 06/06/22] methenamine hippurate 1 gram tablet 1 g PO QHS 05/18/22 [History Last Taken 06/05/22] ondansetron HCl 4 mg tablet 4 mg PO TID PRN PRN Nausea 05/18/22 [History Last Taken 06/01/22] apixaban 5 mg tablet (Eliquis) 5 mg PO BID #0 tabs 05/31/22 [Rx Last Taken 06/06/22] insulin glargine-yfgn 100 unit/mL (3 mL) subcutaneous pen 10 unit (0.1 mL) subcut DAILY #0 mL 05/31/22 [Rx Last Taken 06/05/22] ipratropium 0.5 mg-albuterol 3 mg (2.5 mg base)/3 mL nebulization soln 3 ml inhalation 4X/DAY #0 mL 05/31/22 [Rx Last Taken 06/06/22] sodium chloride 0.65 % nasal spray aerosol (Deep Sea Nasal) 1 spray NASAL BID #0 mL 05/31/22 [Rx Last Taken 06/06/22] insulin lispro 100 unit/mL subcutaneous pen See Protocol subcut TID 06/03/22 [History Last Taken 06/06/22] diltiazem HCl 120 mg capsule,extended release 24 hr 120 mg PO BID 06/06/22 [History Last Taken 06/06/22] omeprazole 20 mg capsule,delayed release 40 mg PO DAILY GERD 06/06/22 [History Last Taken 06/06/22] Allergy/AdvReac Type Severity Reaction Status Date / Time No Known Allergies Allergy Verified 06/06/22 14:17 Social History Smoking Status: Current every day smoker tobacco type: cigarettes ROS ROS ED Review of Systems ROS Unobtainable: due to mental status Constitutional Constitutional ED: Reports fatigue, lethargy and malaise; Denies chills or fever(s) Cardiovascular Cardiovascular: Denies chest pain or palpitations Respiratory/Chest Respiratory/Chest: Reports cough and dyspnea Gastrointestinal Gastrointestinal: Denies abdominal pain, diarrhea, nausea or vomiting Musculoskeletal Musculoskeletal: Denies back pain or neck pain Integumentary Denies abscess or rash Neurologic Neurologic: Denies focal weakness, headache(s), paresthesias or weakness Psychiatric Psychiatric: Denies anxiety or suicidal thoughts EXAM Physical Exam Const Vital Signs: 06/06/22 14:12 06/06/22 14:52 06/06/22 14:52 Temperature 97.6 F L 98.0 F Temperature Source Temporal Axillary Pulse Rate 113 H Respiratory Rate 30 H Respiratory Effort Respiratory Depth Respiratory Pattern Blood Pressure 86/61 L Blood Pressure Mean 69 Blood Pressure Source Blood Pressure Position Blood Pressure Location Pulse Ox 99 Oxygen Delivery Method Non-Rebreather Non-Rebreather Oxygen Flow Rate (L/min) 06/06/22 14:16 06/06/22 15:16 06/06/22 16:16 Temperature 98.0 F 98.3 F 98.3 F Temperature Source Axillary Axillary Axillary Pulse Rate 100 93 87 Respiratory Rate 34 H 33 H 25 H Respiratory Effort Respiratory Depth Respiratory Pattern Blood Pressure 86/61 L 83/52 L 88/51 L Blood Pressure Mean 69 62 63 Blood Pressure Source Blood Pressure Position Blood Pressure Location Pulse Ox 99 99 100 Oxygen Delivery Method Non-Rebreather Non-Rebreather Nasal Cannula Oxygen Flow Rate (L/min) 06/06/22 15:52 06/06/22 17:00 06/06/22 18:00 Temperature 98.0 F 98.1 F 97.9 F Temperature Source Axillary Axillary Axillary Pulse Rate 91 78 Respiratory Rate 30 H 27 H Respiratory Effort Respiratory Depth Respiratory Pattern Blood Pressure 87/52 L 80/56 L Blood Pressure Mean 63 64 Blood Pressure Source Blood Pressure Position Blood Pressure Location Pulse Ox 95 96 Oxygen Delivery Method Nasal Cannula Nasal Cannula Oxygen Flow Rate (L/min) 2 06/06/22 18:04 06/06/22 19:00 06/06/22 20:00 Temperature 98.1 F 98 F 97.8 F Temperature Source Axillary Temporal Temporal Pulse Rate 90 89 100 Respiratory Rate 22 H 24 H 17 Respiratory Effort Respiratory Depth Respiratory Pattern Blood Pressure 81/53 L 83/66 L 87/57 L Blood Pressure Mean 62 71 67 Blood Pressure Source Blood Pressure Position Blood Pressure Location Pulse Ox 97 96 96 Oxygen Delivery Method Nasal Cannula Nasal Cannula Nasal Cannula Oxygen Flow Rate (L/min) 2 2 06/06/22 20:48 06/06/22 21:00 06/06/22 20:50 Temperature Temperature Source Pulse Rate 95 91 Respiratory Rate 25 H 28 H Respiratory Effort Short of Breath Respiratory Depth Shallow Respiratory Pattern Normal Blood Pressure 74/52 L 83/48 L Blood Pressure Mean 59 59 Blood Pressure Source Monitor Monitor Blood Pressure Position Semi-Fowlers Blood Pressure Location Left Arm Pulse Ox 92 91 Oxygen Delivery Method Nasal Cannula Nasal Cannula Nasal Cannula Oxygen Flow Rate (L/min) 4 4 4 Positive well nourished and well developed Constitutional Narrative: Very lethargic, alerts to voice, in no distress but tachypneic. General Appearance ED: well developed HEENT Reports moist mucous membranes normocephalic and atraumatic Eyes PERRL and EOMs intact bilaterally Neck full ROM and supple Resp Resp Narrative: Some rhonchi and rails on the right. Trachea midline. Tachypneic but in no respiratory distress, no accessory muscle use. Cardio regular rate, regular rhythm and no murmurs Rate: tachycardic GI non-tender and non-distended Auscultation: normoactive bowel sounds Palpation: soft Back/Spine no CVA tenderness General Back: other FROM Extremity normal to inspection General Extremety ED: Negative for edema, pulses abnormal or tenderness General Extremity: Negative for edema or pulses abnormal Neuro CN's II-XII intact bilaterally and no sensory deficits noted Neuro Narrative: Excellent strength of the both upper extremities, symmetric. Sensation intact. 1/5 strength throughout both lower extremities, she is able to move her toes but not resist gravity at all and they are also symmetric. Dense left lower facial droop. Sensorium / Orientation: awake and alert Skin no rashes or lesions noted and no wounds MDM MDM MDM Narrative Medical decision making narrative: This patient looks ill, after my initial evaluation, nurses were getting her cleaned up after sending blood to the lab, and they noticed diarrhea which was black followed by maroon mildly active flow from the rectum. I did not Hemoccult it since it is obviously bloody. Her hemoglobin returned at 8.5, her blood pressure has come up some with fluids, I sent a type and screen, ordered Protonix 80 mg IV bolus followed by a drip. She is on apixaban, which obviously will need to be held. Her active bleeding is very mild and she does not require other emergent reversal medications, but her BUN is elevated consistent with an upper GI source of bleeding. She denied vomiting family states she has been, she does have some emesis on her gown but no blood. I discussed with gastroenterology Dr. Mcmanus, who agrees with this and states he will see and evaluate the patient. When she got back from radiography, I reviewed her 1 view chest x-ray which on my interpretation shows bilateral infiltrates similar to before, but not grossly/densely worse. I started her on sepsis-protocol anti biotics. On reevaluating her clinically, after 2 L of fluid she is still hypotensive but is more alert although still somnolent, does not feel tired of breathing, she is protecting her airway, and her pH is 7.53, and discussing with Dr. Graham with intensive care he agrees with ICU admission and agrees with not intubating her right now as there really is no current indication although certainly things can change. I discussed this with the patient and family and they are comfortable with central line, and intubation if and when she would require it. Since her hypotension is persistent despite the fluids, while we are waiting for PICC line team to respond, as this would be ideal since she is anticoagulated, she is more alert and clinically doing better, I am transfusing her with blood in addition to repeating her H&H. Hospitalist in agreement with all of that. We were not able to get a PIC line placed in a reasonable amount of time so I placed an internal jugular central line see the procedure note. There is no neck hematoma as a result of this procedure. Dr. Mcmanus saw the patient in the emergency department. From a respiratory standpoint patient is maintaining and doing well on a nasal cannula and does not require intubation at this point. Lab Data Attestation: I reviewed the patient's lab results. Labs: Laboratory Results - last 24 hr 06/06/22 06/06/22 06/06/22 15:10 15:10 15:10 WBC 24.9 H RBC 2.90 L Hgb 8.5 L Hct 25.6 L MCV 88.3 MCH 29.3 MCHC 33.2 RDW Std Deviation 46.5 H RDW Coeff of Palak 14.6 Plt Count 490 H MPV 10.2 Immature Gran % (Auto) 3.100 H Neut % (Auto) 85.3 H Lymph % (Auto) 8.0 L [place] % (Auto) 2.3 Eos % (Auto) 1.1 Baso % (Auto) 0.2 Absolute Neuts (auto) 21.2 H Absolute Lymphs (auto) 1.98 Nucleated RBC % 0.1 Differential Comment SCANNED PT Cancelled INR Cancelled APTT Cancelled Sodium 120 L Potassium 5.1 Chloride 86 L Carbon Dioxide 24.0 Anion Gap 10 BUN 67 H Creatinine 1.16 H Estim Creat Clear Calc 45.52 Est GFR (MDRD) Af Amer 59 L Est GFR (MDRD) Non-Af 49 L BUN/Creatinine Ratio 57.8 H Glucose 200 H Lactic Acid Calcium 8.9 Total Bilirubin 0.40 AST 33 ALT 39 Alkaline Phosphatase 124 H Troponin I High Sens 17 Total Protein 6.4 Albumin 1.8 L Globulin 4.6 H Albumin/Globulin Ratio 0.4 L Urine Color Urine Clarity Urine pH Ur Specific [place] Urine Protein Urine Glucose (UA) Urine Ketones Urine Occult Blood Urine Nitrite Urine Bilirubin Urine Urobilinogen Ur Leukocyte Esterase Urine RBC Urine WBC Ur Squamous Epith Cells Urine Bacteria Urine Mucus Blood Type Antibody Screen Crossmatch 06/06/22 06/06/22 06/06/22 15:10 16:23 16:23 WBC RBC Hgb Hct MCV MCH MCHC RDW Std Deviation RDW Coeff of [place] Plt Count MPV Immature Gran % (Auto) Neut % (Auto) Lymph % (Auto) [place] % (Auto) Eos % (Auto) Baso % (Auto) Absolute Neuts (auto) Absolute Lymphs (auto) Nucleated RBC % Differential Comment PT Cancelled INR Cancelled APTT Cancelled Sodium Potassium Chloride Carbon Dioxide Anion Gap BUN Creatinine Estim Creat Clear Calc Est GFR (MDRD) Af Amer Est GFR (MDRD) Non-Af BUN/Creatinine Ratio Glucose Lactic Acid 1.5 Calcium Total Bilirubin AST ALT Alkaline Phosphatase Troponin I High Sens Total Protein Albumin Globulin Albumin/Globulin Ratio Urine Color Urine Clarity Urine pH Ur Specific [place] Urine Protein Urine Glucose (UA) Urine Ketones Urine Occult Blood Urine Nitrite Urine Bilirubin Urine Urobilinogen Ur Leukocyte Esterase Urine RBC Urine WBC Ur Squamous Epith Cells Urine Bacteria Urine Mucus Blood Type O POSITIVE Antibody Screen NEGATIVE Crossmatch 06/06/22 06/06/22 06/06/22 16:23 16:23 16:30 WBC RBC Hgb Hct MCV MCH MCHC RDW Std Deviation RDW Coeff of [place] Plt Count MPV Immature Gran % (Auto) Neut % (Auto) Lymph % (Auto) [place] % (Auto) Eos % (Auto) Baso % (Auto) Absolute Neuts (auto) Absolute Lymphs (auto) Nucleated RBC % Differential Comment PT INR APTT Sodium Potassium Chloride Carbon Dioxide Anion Gap BUN Creatinine Estim Creat Clear Calc Est GFR (MDRD) Af Amer Est GFR (MDRD) Non-Af BUN/Creatinine Ratio Glucose Lactic Acid Calcium Total Bilirubin AST ALT Alkaline Phosphatase Troponin I High Sens Total Protein Albumin Globulin Albumin/Globulin Ratio Urine Color Yellow Urine Clarity Sl. Cloudy Urine pH 6.0 Ur Specific [place] 1.010 Urine Protein 30 H Urine Glucose (UA) 50 H Urine Ketones 5 H Urine Occult Blood 250 H Urine Nitrite Negative Urine Bilirubin Negative Urine Urobilinogen Normal Ur Leukocyte Esterase 25 H Urine RBC 50-100 SEEN Urine WBC 0-5 SEEN Ur Squamous Epith Cells 0 SEEN Urine Bacteria RARE Urine Mucus 0 SEEN Blood Type Antibody Screen Crossmatch See Detail See Detail 06/06/22 19:50 WBC RBC Hgb 6.1 L Hct 18.8 L MCV MCH MCHC RDW Std Deviation RDW Coeff of [place] Plt Count MPV Immature Gran % (Auto) Neut % (Auto) Lymph % (Auto) [place] % (Auto) Eos % (Auto) Baso % (Auto) Absolute Neuts (auto) Absolute Lymphs (auto) Nucleated RBC % Differential Comment PT INR APTT Sodium Potassium Chloride Carbon Dioxide Anion Gap BUN Creatinine Estim Creat Clear Calc Est GFR (MDRD) Af Amer Est GFR (MDRD) Non-Af BUN/Creatinine Ratio Glucose Lactic Acid Calcium Total Bilirubin AST ALT Alkaline Phosphatase Troponin I High Sens Total Protein Albumin Globulin Albumin/Globulin Ratio Urine Color Urine Clarity Urine pH Ur Specific [place] Urine Protein Urine Glucose (UA) Urine Ketones Urine Occult Blood Urine Nitrite Urine Bilirubin Urine Urobilinogen Ur Leukocyte Esterase Urine RBC Urine WBC Ur Squamous Epith Cells Urine Bacteria Urine Mucus Blood Type Antibody Screen Crossmatch ABG Data ABG results: ABG 06/06/22 15:29 Specimen Type ART Sample Site L Radial pH 7.54 H Bicarbonate Actual 22.4 Total CO2 23 Base Excess 0 O2 Saturation 99 ABG pCO2 26.3 L ABG pO2 115 H Lakhwinder Test Positive O2 Delivery Device NRB Liter Flow 15.0 Radiography Diagnostic Testing: Clinical Impression(s) from Imaging Studies Brain CT 06/06/22 16:35 IMPRESSION: Chronic involutional changes of the brain. Electronically Signed: Juan David Haque MD at 16:56 EDT Reading Location ID and State: [id number] / [employer] , Service support , Chest X-Ray 06/06/22 16:45 IMPRESSION: Emphysema with no change in the bilateral patchy pneumonia. Electronically Signed: Juan David Haque MD at 17:29 EDT , Chest X-Ray 06/06/22 20:05 IMPRESSION: There has been no change in the appearance of the chest since the prior study. Electronically Signed: George Pulliam MD at 20:26 EDT Reading Location ID and State: [facility] / [place] , Service support , Rhythm Strip Rhythm Strip: A-fib Rate: 110 Ectopy: None EKG Initial EKG: Attestation: I personally reviewed and interpreted this EKG as follows: Interpretation: No Acute Injury Pattern and Atrial Fibrillation Prior EKG tracings: available for review Prior: Unchanged Procedures Other Procedures Procedure(s): Central line placement: After informed consent, left internal jugular vein central line was placed due to shock and lack of access both. Prepped and draped in a sterile fashion with chlorhexidine and a full body drape. Nursing assisted me in placing sterile ultrasound probe cover, ultrasound was used to identify the internal jugular vein as well as the carotid artery, and the line was placed via modified Seldinger technique without any complications. All 3 ports walt back dark red blood nonpulsatile, flushed easily. Verified by chest x-ray. Triple-lumen 16 cm catheter placed. It was at this time that the repeat hemoglobin/hematocrit was drawn. Placement of this line was challenging requiring multiple sticks due to collapse of the internal jugular vein due to hypotension/hypovolemia. Total of 4 cc of plain 1% lidocaine were used. Sutured in place, chlorhexidine disc against the skin. Critical Care Time Critical Care Time: Yes Critical care time (excluding procedures): 30-74 minutes (45 min, not including procedure time), Including time spent:, Discussing w/Patient &/or Family/Knuckle Bender, Discussing w/Consultants, Arranging Admission or Transfer and Performing Direct Patient Care at Bedside Discharge Plan Dx/Rx/DC Orders Clinical Impression: Acute respiratory failure with hypoxia, COPD exacerbation, Pneumonia, Hypotension, Acute upper gastrointestinal bleeding, Acute blood loss anemia, Anticoagulated Disposition Disposition: [facility] Discharge Date/Time: 06/06/22 20:49
[2022-06-06 15:22] LABS: Absolute Lymphocyte Count 1.98 X10^3/uL (0.83-4.51); Absolute Neutrophil Count 21.2 X10^3/uL (2.0-7.7); Basophil# 0.06 X10^3/uL; Basophil% 0.2 % (0-1); Eosinophil# 0.27 X10^3/uL; Eosinophils% 1.1 % (0-5); Hematocrit 25.6 % (37-47); Hemoglobin 8.5 g/dL (12.0-15.0); Lymphocyte # 1.98 X10^3/ul (0.83-4.51); Mean Corp Hgb Conc 33.2 g/dL (32-36); Mean Corpuscular Hgb 29.3 pg (27.0-32.0); Mean Corpuscular Volume 88.3 fL (81-99); Mean Platelet Vol. 10.2 fl (6.2-12.0); Monocyte# 0.58 X10^3/uL; Monocyte% 2.3 % (0-10); NRBC Flagged by Analyzer 0.1 % (0-5); Neutrophil % 85.3 % (47-70); POSITIVE DIFFERENTIAL YES; Platelet Count 490 K/mm3 (150-450); RBC Distribution Width CV 14.6 % (11.6-14.6); RBC Distribution Width SD 46.5 fl (35.1-43.9); White Blood Count 24.9 K/mm3 (4.4-11.0)
[2022-06-06 15:28] LABS: Differential Indicated SCAN CRITERIA MET
[2022-06-06 15:39] LABS: ALB/GLOB Ratio 0.4 RATIO (0.9-2.4); AST(SGOT) 33 U/L (15-37); Alanine Aminotransfer ALT/SGPT 39 U/L (13-56); Albumin, Serum 1.8 g/dL (3.2-5.0); Alkaline Phosphatase 124 U/L (45-117); Anion Gap 10 (5-15); BUN 67 mg/dL (7-18); BUN/Creat Ratio 57.8 RATIO (10-20); Calcium,Total 8.9 mg/dL (8.5-10.1); Chloride 86 mmol/L (98-107); Creatinine, Serum 1.16 mg/dL (0.55-1.02); EST Glomerular Filtration Rate 49 mL/min (>60); Est Glom Filt Rate - Afr Amer 59 mL/min (>60); Estimated Creatinine Clearance 45.52 ml/min; Globulin 4.6 g/dL (2.2-4.2); Glucose 200 mg/dL (74-106); Potassium 5.1 mmol/L (3.5-5.1); Protein, Total 6.4 g/dL (6.4-8.2); Sodium Level 120 mmol/L (136-145); Troponin-I HS 17 pg/mL (3.0-54.0)
[2022-06-06] MEDS: 0.9% Normal Saline 1,000 ML 999 ML IV ×2 (15:40→18:42)
[2022-06-06 15:54] LABS: Lactic Acid 1.5 mmol/L (0.4-1.9)
[2022-06-06 15:57] LABS: Differential Comment SCANNED
--- NOTE | 2022-06-06 16:35 | CT_ITS ---
STUDY: CT BRAIN WITHOUT CONTRAST REASON FOR EXAM: Female, 72 years old. altered mental status, left facial droop RADIATION DOSAGE (If Supplied By Facility): CTDIvol = ( 44.99 ) mGy, DLP = ( 866.41 ) mGycm TECHNIQUE: Transaxial CT imaging of the brain was performed without administration of intravenous contrast material. Individualized dose optimization techniques were used for this CT. COMPARISON: No relevant priors. FINDINGS: Normal soft tissue structures. Normal calvarium. There is mild cerebral atrophy with widening of the extra-axial spaces and ventricular dilatation. There are areas of decreased attenuation within the white matter tracts of the supratentorial brain, consistent with microvascular disease changes. There are small punctate calcifications of the basal ganglia which are seen in the aging brain as a normal variant. Normal brainstem. Normal cerebellum. There is no intracranial hemorrhage. There are no findings of an acute ischemic infarction. Normal visualized paranasal sinuses. CT/Brain/Head without Contrast IMPRESSION: Chronic involutional changes of the brain. Electronically Signed: Juan David Haque MD at 16:56 EDT ,
[2022-06-06 16:42] LABS: Mucous, Urine 0 SEEN /hpf (<or=2+); Squamous Epithelial Cells - UA 0 SEEN /hpf (5-10)
--- NOTE | 2022-06-06 16:45 | RAD_ITS ---
STUDY: X-RAY CHEST REASON FOR EXAM: Female, 72 years old. dyspnea TECHNIQUE: Single AP portable view of the chest. COMPARISON: 06/03/2022 FINDINGS: There is hyperinflation of the lungs consistent with chronic obstructive lung disease (COPD). No change in the patchy alveolar opacities in both lungs consistent with bilateral pneumonia. There is no demonstrated pleural abnormality. Normal size heart. Normal mediastinum and ann. Normal visualized pulmonary arteries. Normal visualized aortic arch and descending thoracic aorta. Normal visualized thoracic spine. Normal visualized ribs, clavicles, and shoulders. There is no demonstrated abnormality of the visualized soft tissue structures of the upper abdomen. RAD/Chest 1 View (Portable) IMPRESSION: Emphysema with no change in the bilateral patchy pneumonia. Electronically Signed: Juan David Haque MD at 17:29 EDT ,
[2022-06-06 16:48] LABS: Color, Urine Yellow (Yellow); Glucose, Dipstick 50 mg/dl (Normal); Ketone-Dipstick 5 mg/dl (Negative); Leukocyte Esterase-Dipstick 25 /ul (Negative); Nitrite-Dipstick Negative (Negative); Occult Blood-Urine 250 /ul (Negative); Protein-Dipstick 30 mg/dl (Negative); Urine Bilirubin Dipstick Negative (Negative); Urine Clarity Sl. Cloudy (Clear); Urine Urobilinogen Normal (Normal)
[2022-06-06 17:02] LABS: Bacteria RARE /hpf (None Seen); Red Blood Cells-Urine 50-100 SEEN /hpf (0-5); White Blood Cells 0-5 SEEN /hpf (0-5)
--- NOTE | 2022-06-06 18:13 | CM.ED ---
Addendum entered by Megan Blackburn 06/06/22 18:44: SW back in to speak with pt. Pt's daughter present in room now. Pt's daughter confirms they are not happy with the care at [facility]. SW provided pt's daughter with [employer] Brochure, Ombudsman contact information, and a list of SNF providers including quality and resource use data and consistent with the patient?s preferred geographic region, medical needs, and insurance network. SW spoke with pt's daughter that if she has real concerns about the [facility] and would like to file a complaint with the state, she should call the Ombudsman. Pt's daughter asked about [facility] TCU. SW informed pt's daughter that this worker thinks pt will need to have two COVID negative tests since pt was recently COVID positive. Pt's daughter states pt has already had one negative test on Thursday when she was at [facility]. SW explained that if family is thinking pt needs manager terminal care at SNF then TCU is not appropriate. Pt's daughter states they are wanting short term care and eventually want to take pt back home. Pt's daughter requested that this worker put pt on TCU list. SW informed pt's daughter that this worker will send email to admissions and they will review referral Thursday. Pt's daughter state understanding. Email sent to Jessica in TCU with referral for pt. Plan: TCU pending acceptance Megan MCGUIRE, PAINTER APPRENTICE Original Note: Social Work Note Reason for Referral: RN updated this worker that pt is currently at [facility]. Pt has bed sores, bleeding, and pt's family wanted to know other options for SNF. HEMAL attempted to meet with pt's family, no family present in pt's room at this time. HEMAL spoke with pt. Pt states that her family should be back in about 20 minutes. SW to try and meet with pt's family again. It appears pt to be admitted to [facility]. SW can always follow up with pt's family on acute side. Megan MCGUIRE, PAINTER APPRENTICE
--- NOTE | 2022-06-06 18:31 | NURSING ---
Unable to start sandstatin d/t protonix not compatible and only one line. Unable to initiate a second line. Waiting call back regarding PICC line nurse.
--- NOTE | 2022-06-06 18:40 | ED.RN ---
PER MD, PROTONIX CONT TO BE RAN. MD TO PLACE CENTRAL LINE.
--- NOTE | 2022-06-06 18:47 | ED.RN ---
1806- Called snowmaker answering service to have PICC line placed. Stated they will page out to the nurse who will call w/ETA.
[2022-06-06 18:51] LABS: Allen Test Positive; Base Excess 0 mmol/L (-2 to +2); Bicarbonate 22.4 mmol/L (22-26); Blood Gas Specimen Type ART; O2 Delivery Device NRB; PO2 115 mmHG (75-100); SITE L Radial; SO2 99 % (95-99); Total Carbon Dioxide 23 mmol/L; pCO2 26.3 mmHg (35-45); pH 7.54 (7.35-7.45)
--- NOTE | 2022-06-06 19:07 | PCM.CONS.GEN ---
Assessment & Plan Assessment/Plan (1) Acute upper gastrointestinal bleeding: PLAN: Upper GI bleed from unknown cause at this time. Digital diagnosis does include Sherri Bullock tear because she was coughing from Legionella, AVM, peptic ulcer disease. When she is more medically stable to be sedated we will pursue an upper endoscopy. This was explained to her daughter who is at the bedside. In the interim I will start her on a PPI drip and octreotide drip as she is transferred to the ICU. HPI Consult Data Date of Consult: 06/06/22 HPI Narrative Reason for Consultation: GI bleeding HPI Narrative: CARMEN MILLER, is a 72 F who from the retirement with lethargy and weakness. She was initially diagnosed with COVID 05/14. She was not severely symptomatic from the COVID infection. However, she was discharged from the hospital 1 week ago after also being diagnosed with Legionella pneumonia. She was discharged to retirement and was living independently prior to the illness.? She was seen here 4 days ago and determined to be hypoxic but after being evaluated by hospitalist, she was sent back back to retirement on oxygen. This morning she was doing okay and was at least alert but this afternoon she was lethargic and hypoxic and barely at 90% when staff increase her oxygen nasal cannula to 7 L.? She is anticoagulated on Eliquis with a history of atrial fibrillation.? When awakening her and discussing her symptoms she has no focal complaints right now.? I noticed a left lower facial droop.? Family states that they noticed this a week or 2 ago.? Patient also had a CTA while she was admitted 2 weeks ago that was negative for pulmonary embolus. I was asked to see her because she was found to have some blood in her mouth and she was also determined to have a decreasing hemoglobin in the setting of anticoagulation. At this time she is hypotensive and tachycardic in rapid atrial fibrillation. Patient is a full code, family wants her to be intubated if she needs it and the patient is unable to respond. [facility] Medical History COVID-19 Diabetes Frequent urinary tract infections GERD (gastroesophageal reflux disease) High cholesterol Osteoarthritis Paroxysmal A-fib Home Medications alendronate 70 mg tablet 70 mg PO MO 05/18/22 [History Last Taken 06/02/22] atorvastatin 20 mg tablet 20 mg PO QHS 05/18/22 [History Last Taken 06/05/22] metformin 500 mg tablet 500 mg PO DAILY 05/18/22 [History Last Taken 06/06/22] methenamine hippurate 1 gram tablet 1 g PO QHS 05/18/22 [History Last Taken 06/05/22] ondansetron HCl 4 mg tablet 4 mg PO TID PRN PRN Nausea 05/18/22 [History Last Taken 06/01/22] apixaban 5 mg tablet (Eliquis) 5 mg PO BID #0 tabs 05/31/22 [Rx Last Taken 06/06/22] insulin glargine-yfgn 100 unit/mL (3 mL) subcutaneous pen 10 unit (0.1 mL) subcut DAILY #0 mL 05/31/22 [Rx Last Taken 06/05/22] ipratropium 0.5 mg-albuterol 3 mg (2.5 mg base)/3 mL nebulization soln 3 ml inhalation 4X/DAY #0 mL 05/31/22 [Rx Last Taken 06/06/22] sodium chloride 0.65 % nasal spray aerosol (Deep Sea Nasal) 1 spray NASAL BID #0 mL 05/31/22 [Rx Last Taken 06/06/22] insulin lispro 100 unit/mL subcutaneous pen See Protocol subcut TID 06/03/22 [History Last Taken 06/06/22] diltiazem HCl 120 mg capsule,extended release 24 hr 120 mg PO BID 06/06/22 [History Last Taken 06/06/22] omeprazole 20 mg capsule,delayed release 40 mg PO DAILY GERD 06/06/22 [History Last Taken 06/06/22] Allergy/AdvReac Type Severity Reaction Status Date / Time No Known Allergies Allergy Verified 06/06/22 14:17 Social History Smoking Status: Current every day smoker tobacco type: cigarettes ROS ROS Narrative See HPI Physical Exam Const alert and no apparent distress General Appearance: cooperative HEENT normocephalic and head/scalp atraumatic Eyes PERRL, EOMs intact bilaterally and conjunctivae normal Neck supple General: trachea midline Chest inspection of chest normal Resp Effort and Inspection: tachypneic Auscultation: diminished lung sounds Cardio S1 normal heart sound and S2 normal heart sound Rate: tachycardic GI normal to inspection, nondistended, normoactive bowel sounds Extremity no clubbing, cyanosis or edema Skin no rashes or lesions noted Neuro CN's II-XII intact bilaterally, moves all extremities and no focal motor deficits Psych cooperative and affect normal Lab / Micro Data Result Diagrams: 06/06/22 15:10 06/06/22 15:10 Labs: Laboratory Results - last 24 hr 06/06/22 15:10: WBC 24.9 H, RBC 2.90 L, Hgb 8.5 L, Hct 25.6 L, MCV 88.3, MCH 29.3, MCHC 33.2, RDW Std Deviation 46.5 H, RDW Coeff of Palak 14.6, Plt Count 490 H, MPV 10.2, Immature Gran % (Auto) 3.100 H, Neut % (Auto) 85.3 H, Lymph % (Auto) 8.0 L, [place] % (Auto) 2.3, Eos % (Auto) 1.1, Baso % (Auto) 0.2, Absolute Neuts (auto) 21.2 H, Absolute Lymphs (auto) 1.98, Nucleated RBC % 0.1, Differential Comment SCANNED 06/06/22 15:10: PT Cancelled, INR Cancelled, APTT Cancelled 06/06/22 15:10: Sodium 120 L, Potassium 5.1, Chloride 86 L, Carbon Dioxide 24.0, Anion Gap 10, BUN 67 H, Creatinine 1.16 H, Estim Creat Clear Calc 45.52, Est GFR (MDRD) Af Amer 59 L, Est GFR (MDRD) Non-Af 49 L, BUN/Creatinine Ratio 57.8 H, Glucose 200 H, Calcium 8.9, Total Bilirubin 0.40, AST 33, ALT 39, Alkaline Phosphatase 124 H, Troponin I High Sens 17, Total Protein 6.4, Albumin 1.8 L, Globulin 4.6 H, Albumin/Globulin Ratio 0.4 L 06/06/22 15:10: Lactic Acid 1.5 06/06/22 16:23: PT Cancelled, INR Cancelled, APTT Cancelled 06/06/22 16:23: Blood Type O POSITIVE, Antibody Screen NEGATIVE 06/06/22 16:23: Crossmatch See Detail 06/06/22 16:30: Urine Color Yellow, Urine Clarity Sl. Cloudy, Urine pH 6.0, Ur Specific [place] 1.010, Urine Protein 30 H, Urine Glucose (UA) 50 H, Urine Ketones 5 H, Urine Occult Blood 250 H, Urine Nitrite Negative, Urine Bilirubin Negative, Urine Urobilinogen Normal, Ur Leukocyte Esterase 25 H, Urine RBC 50-100 SEEN, Urine WBC 0-5 SEEN, Ur Squamous Epith Cells 0 SEEN, Urine Bacteria RARE, Urine Mucus 0 SEEN ABG Data ABG results: ABG 06/06/22 15:29 Specimen Type ART Sample Site L Radial pH 7.54 H Bicarbonate Actual 22.4 Total CO2 23 Base Excess 0 O2 Saturation 99 ABG pCO2 26.3 L ABG pO2 115 H Lakhwinder Test Positive O2 Delivery Device NRB Liter Flow 15.0 Rhythm Strip Rhythm Strip: A-fib Rate: 110 Ectopy: None Radiology Impression Brain CT 06/06/22 16:35 IMPRESSION: Chronic involutional changes of the brain. Electronically Signed: JuanD avid Haque MD at 16:56 EDT , Chest X-Ray 06/06/22 16:45 IMPRESSION: Emphysema with no change in the bilateral patchy pneumonia. Electronically Signed: Juan David Haque MD at 17:29 EDT , Charges/Coding Visit Charges Inpatient E&M: 17635 Init Hosp L2
--- NOTE | 2022-06-06 19:28 | ED.RN ---
REPORT CALLED TO LACY HUERTA IN ICU
--- NOTE | 2022-06-06 19:36 | ED.RN ---
BLOOD READY PER BLOOD BANK, WANTS TO RECHECK HGB, BLOOD HELD AT THIS TIME
--- NOTE | 2022-06-06 19:59 | HP.PCM.HOS_ITS ---
HPI - General General Date of Admission: 06/06/22 Date of Service: 06/06/22 HPI Narrative CARMEN MILLER, is a 72 F who presents emergency room at [facility] after being transported from a local extended care facility at which she was undergoing rehab services after being hospitalized recently at [facility] for pneumonia and respiratory failure. Patient had complaints of shortness of breath and was found to be hypotensive at the care home. Patient is on chronic oxygen at the care home. Patient was also noted to be less alert this afternoon and was lethargic and minimally responsive. Nursing staff in the ER noticed stool that was maroon-colored, the stool obviously looked bloody and was not hemocculted. Gastroenterology was consulted and saw the patient in the emergency room. Work-up in the ER included labs which showed an elevated white blood cell count at 24.9, hemoglobin was 8.5, arterial blood gases were performed on a nonrebreather at 15 L, PO2 was 115, PCO2 was 26, pH was 7.54. Chemistry profile was remarkable for sodium of 120, chloride of 86, creatinine of 1.16, and a BUN of 67. Urinalysis was remarkable for 50-100 RBCs, rare bacteria were seen, WBCs were 0-5. Chest x-ray was obtained, there was noted to be emphysema with no change in bilateral patchy infiltrates noted on previous chest x-ray on 06/03/2022. CT of the brain was obtained and it showed involutional changes. Patient was noted to be hypotensive in the emergency room, her blood pressure was 83/66. Patient will be admitted to ICU for upper GI bleed with anemia, pneumonia, hemorrhagic shock, and, a central line was placed prior to her admission to ICU for pressor support if needed, patient's family request full measures at this time, patient will be given 1 unit of packed red blood cells due to her hypotension. Critical care was contacted and they will see the patient in consultation in the ICU. Gastroenterology will also see the patient, she will be maintained on Protonix drip and octreotide drip. [facility] Medical History COVID-19 Diabetes Frequent urinary tract infections GERD (gastroesophageal reflux disease) High cholesterol Osteoarthritis Paroxysmal A-fib Home Medications alendronate 70 mg tablet 70 mg PO MO 05/18/22 [History Last Taken 06/02/22] atorvastatin 20 mg tablet 20 mg PO QHS 05/18/22 [History Last Taken 06/05/22] metformin 500 mg tablet 500 mg PO DAILY 05/18/22 [History Last Taken 06/06/22] methenamine hippurate 1 gram tablet 1 g PO QHS 05/18/22 [History Last Taken 06/05/22] ondansetron HCl 4 mg tablet 4 mg PO TID PRN PRN Nausea 05/18/22 [History Last Taken 06/01/22] apixaban 5 mg tablet (Eliquis) 5 mg PO BID #0 tabs 05/31/22 [Rx Last Taken 06/06/22] insulin glargine-yfgn 100 unit/mL (3 mL) subcutaneous pen 10 unit (0.1 mL) subcut DAILY #0 mL 05/31/22 [Rx Last Taken 06/05/22] ipratropium 0.5 mg-albuterol 3 mg (2.5 mg base)/3 mL nebulization soln 3 ml inhalation 4X/DAY #0 mL 05/31/22 [Rx Last Taken 06/06/22] sodium chloride 0.65 % nasal spray aerosol (Deep Sea Nasal) 1 spray NASAL BID #0 mL 05/31/22 [Rx Last Taken 06/06/22] insulin lispro 100 unit/mL subcutaneous pen See Protocol subcut TID 06/03/22 [History Last Taken 06/06/22] diltiazem HCl 120 mg capsule,extended release 24 hr 120 mg PO BID 06/06/22 [History Last Taken 06/06/22] omeprazole 20 mg capsule,delayed release 40 mg PO DAILY GERD 06/06/22 [History Last Taken 06/06/22] Allergy/AdvReac Type Severity Reaction Status Date / Time No Known Allergies Allergy Verified 06/06/22 14:17 Social History Smoking Status: Current every day smoker tobacco type: cigarettes ROS ROS Narrative Review of systems was unable to be obtained due to the patient's poor medical status and lethargy. Vital Signs Vital Signs Vital Signs: 06/06/22 14:12 06/06/22 14:52 06/06/22 14:52 Temperature 97.6 F L 98.0 F Temperature Source Temporal Axillary Pulse Rate 113 H Respiratory Rate 30 H Blood Pressure 86/61 L Blood Pressure Mean 69 Pulse Ox 99 Oxygen Delivery Method Non-Rebreather Non-Rebreather Oxygen Flow Rate (L/min) 06/06/22 14:16 06/06/22 15:16 06/06/22 16:16 Temperature 98.0 F 98.3 F 98.3 F Temperature Source Axillary Axillary Axillary Pulse Rate 100 93 87 Respiratory Rate 34 H 33 H 25 H Blood Pressure 86/61 L 83/52 L 88/51 L Blood Pressure Mean 69 62 63 Pulse Ox 99 99 100 Oxygen Delivery Method Non-Rebreather Non-Rebreather Nasal Cannula Oxygen Flow Rate (L/min) 06/06/22 15:52 06/06/22 17:00 06/06/22 18:00 Temperature 98.0 F 98.1 F 97.9 F Temperature Source Axillary Axillary Axillary Pulse Rate 91 78 Respiratory Rate 30 H 27 H Blood Pressure 87/52 L 80/56 L Blood Pressure Mean 63 64 Pulse Ox 95 96 Oxygen Delivery Method Nasal Cannula Nasal Cannula Oxygen Flow Rate (L/min) 2 06/06/22 18:04 06/06/22 19:00 Temperature 98.1 F 98 F Temperature Source Axillary Temporal Pulse Rate 90 89 Respiratory Rate 22 H 24 H Blood Pressure 81/53 L 83/66 L Blood Pressure Mean 62 71 Pulse Ox 97 96 Oxygen Delivery Method Nasal Cannula Nasal Cannula Oxygen Flow Rate (L/min) 2 Weight Weight: 66.6 kg Body Mass Index (BMI) 22.2 Physical Exam Const Constitutional Narrative: Patient is frail and ill-appearing, she is minimally alert, she is lethargic General Appearance: well developed Orientation / Consciousness: awake HEENT normocephalic and head/scalp atraumatic HEENT Narrative: Mucous membranes were dry Eyes PERRL, EOMs intact bilaterally and conjunctivae normal Neck supple, no JVD and thyroid normal Neck Narrative: Left internal jugular venous line was in place General: trachea midline Resp Resp Narrative: Patient has shallow respirations which are rapid, breath sounds were diminished bilaterally Auscultation: Negative for rales, rhonchi or wheezes Cardio no murmurs, no rub and no gallops Cardio Narrative: Heart rate and rhythm is irregular GI normal to inspection, nondistended, normoactive bowel sounds, soft to palpation, non-tender and non-distended Extremity no clubbing, cyanosis or edema Skin no rashes or lesions noted General Skin Exam: no breakdown Neuro CN's II-XII intact bilaterally and no sensory deficits noted Neuro Narrative: Patient is lethargic but awake Sensorium / Orientation: awake Speech: speech normal Psych Psych Narrative: Patient is lethargic and awake Results Lab / Micro Data Result Diagrams: 06/06/22 19:50 06/06/22 15:10 Labs: Laboratory Results - last 24 hr 06/06/22 15:10: WBC 24.9 H, RBC 2.90 L, Hgb 8.5 L, Hct 25.6 L, MCV 88.3, MCH 29.3, MCHC 33.2, RDW Std Deviation 46.5 H, RDW Coeff of [place]ak 14.6, Plt Count 490 H, MPV 10.2, Immature Gran % (Auto) 3.100 H, Neut % (Auto) 85.3 H, Lymph % (Auto) 8.0 L, [place] % (Auto) 2.3, Eos % (Auto) 1.1, Baso % (Auto) 0.2, Absolute Neuts (auto) 21.2 H, Absolute Lymphs (auto) 1.98, Nucleated RBC % 0.1, Differential Comment SCANNED 06/06/22 15:10: PT Cancelled, INR Cancelled, APTT Cancelled 06/06/22 15:10: Sodium 120 L, Potassium 5.1, Chloride 86 L, Carbon Dioxide 24.0, Anion Gap 10, BUN 67 H, Creatinine 1.16 H, Estim Creat Clear Calc 45.52, Est GFR (MDRD) Af Amer 59 L, Est GFR (MDRD) Non-Af 49 L, BUN/Creatinine Ratio 57.8 H, Gl ucose 200 H, Calcium 8.9, Total Bilirubin 0.40, AST 33, ALT 39, Alkaline Phos phatase 124 H, Troponin I High Sens 17, Total Protein 6.4, Albumin 1.8 L, Globulin 4.6 H, Albumin/Globulin Ratio 0.4 L 06/06/22 15:10: Lactic Acid 1.5 06/06/22 16:23: PT Cancelled, INR Cancelled, APTT Cancelled 06/06/22 16:23: Blood Type O POSITIVE, Antibody Screen NEGATIVE 06/06/22 16:23: Crossmatch See Detail 06/06/22 16:30: Urine Color Yellow, Urine Clarity Sl. Cloudy, Urine pH 6.0, Ur Specific [place] 1.010, Urine Protein 30 H, Urine Glucose (UA) 50 H, Urine Ketones 5 H, Urine Occult Blood 250 H, Urine Nitrite Negative, Urine Bilirubin Negative, Urine Urobilinogen Normal, Ur Leukocyte Esterase 25 H, Urine RBC 50- 100 SEEN, Urine WBC 0-5 SEEN, Ur Squamous Epith Cells 0 SEEN, Urine Bacteria RARE, Urine Mucus 0 SEEN ABG Data ABG results: ABG 06/06/22 15:29 Specimen Type ART Sample Site L Radial pH 7.54 H Bicarbonate Actual 22.4 Total CO2 23 Base Excess 0 O2 Saturation 99 ABG pCO2 26.3 L ABG pO2 115 H Lakhwinder Test Positive O2 Delivery Device NRB Liter Flow 15.0 Rhythm Strip Rhythm Strip: A-fib Rate: 110 Ectopy: None Radiology Impression Brain CT 06/06/22 16:35 IMPRESSION: Chronic involutional changes of the brain. Electronically Signed: Juan David Haque MD at 16:56 EDT Reading Location ID and State: [id number] / [employer] , Service support , Chest X-Ray 06/06/22 16:45 IMPRESSION: Emphysema with no change in the bilateral patchy pneumonia. Electronically Signed: Juan David Haque MD at 17:29 EDT , Assessment & Plan Assessment/Plan (1) Acute respiratory failure with hypoxia: PLAN: Plan 1. Hemorrhagic shock secondary to upper GI bleed-patient will be admitted to ICU, she was placed on an octreotide drip as well as a Protonix drip, gastroenterology is participating in her care #2 acute on chronic respiratory failure secondary to hemorrhagic shock-patient will be monitored in the ICU, pulmonary medicine will participate in her care, patient's family wants full measures including intubation if necessary #3 bilateral pneumonia-patient's chest x-ray is unchanged from 1 that was taken a few days ago, she has bilateral infiltrates, she will be maintained on Zosyn #4 upper GI bleed-etiology unclear, patient is currently taking Eliquis, this will be stopped, she will be seen by gastroenterology in the unit and maintained on a Protonix and octreotide drip #5 Dehydration-patient will be given IV fluids, labs will be monitored #6 hyponatremia-etiology unclear at this point, IV fluids will be administered, labs will be monitored #7 lactic acidosis-secondary to hypoxic respiratory failure, labs will be monitored #8 chronic atrial fibrillation-patient's diltiazem will be held due to her hypotension #9 type 2 diabetes-patient's blood sugars will be monitored every 6 hour fingerstick, sliding scale insulin will be administered as needed #10 hyperlipidemia-patient's atorvastatin will be held at this time due to patient's respiratory status and upper GI bleed Charges/Coding Visit Charges Inpatient E&M: 20996 Init Hosp L3
--- NOTE | 2022-06-06 20:05 | RAD_ITS ---
STUDY: X-RAY CHEST REASON FOR EXAM: Female, 72 years old. line placement TECHNIQUE: XR Chest 1 View COMPARISON: Study done earlier today. FINDINGS: Cardiac monitoring leads or electronic device noted. . There are bilateral infiltrates. There is no pneumothorax. There is a left IJ line. Normal size heart. Normal mediastinum and ann. Normal visualized pulmonary arteries. There is atherosclerotic calcification of the aortic arch with tortuosity. There are diffuse degenerative changes of the visualized thoracic spine. There is degenerative osteoarthritis of the bilateral shoulders. There is no demonstrated abnormality of the visualized soft tissue structures of the upper abdomen. RAD/Chest 1 View (Portable) IMPRESSION: There has been no change in the appearance of the chest since the prior study. Electronically Signed: George Pulliam MD at 20:26 EDT ,
[2022-06-06 20:12] LABS: Hematocrit 18.8 % (37-47); Hemoglobin 6.1 g/dL (12.0-15.0)
[2022-06-06] MEDS: 0.9% Normal Saline 1,000 ML 75 ML IV (22:41)
[2022-06-06] MEDS: Insulin Lispro 100 UNIT/ML INSULN.PEN SC (23:37)
[2022-06-06 23:55] LABS: Bedside Glucose 197 mg/dL (74-106)
[2022-06-06] MEDS: Ipratropium/Albuterol Sulfate 3 ML AMPUL.NEB INHALATION (23:58)
[2022-06-07] VITALS (63 sets, daily range): BP systolic 84–117; BP diastolic 44–71; PULSE 83–119; RESP 18–29; TEMP 36.7–37.1; O2SAT 90–98
[2022-06-07] MEDS: 0.9% Saline Lock 10 ML Syringe IV ×2 (03:17→15:55)
[2022-06-07 05:44] LABS: Hematocrit 35.4 % (37-47); Hemoglobin 11.7 g/dL (12.0-15.0); Mean Corp Hgb Conc 33.1 g/dL (32-36); Mean Corpuscular Hgb 28.3 pg (27.0-32.0); Mean Corpuscular Volume 85.5 fL (81-99); Mean Platelet Vol. 9.5 fl (6.2-12.0); POSITIVE COUNT YES; POSITIVE MORPHOLOGY YES; Platelet Count 322 K/mm3 (150-450); RBC Distribution Width CV 17.5 % (11.6-14.6); RBC Distribution Width SD 54.6 fl (35.1-43.9); Red Blood Count 4.14 M/mm3 (4.2-5.4)
[2022-06-07 05:48] LABS: Differential Indicated MANUAL DIFF
[2022-06-07 05:52] LABS: International Normalized Ratio 1.2
[2022-06-07 06:03] LABS: ALB/GLOB Ratio 0.4 RATIO (0.9-2.4); AST(SGOT) 34 U/L (15-37); Alanine Aminotransfer ALT/SGPT 38 U/L (13-56); Albumin, Serum 1.5 g/dL (3.2-5.0); Alkaline Phosphatase 102 U/L (45-117); Anion Gap 9 (5-15); BUN 45 mg/dL (7-18); BUN/Creat Ratio 57.7 RATIO (10-20); Calcium,Total 6.7 mg/dL (8.5-10.1); Chloride 101 mmol/L (98-107); Creatinine, Serum 0.78 mg/dL (0.55-1.02); EST Glomerular Filtration Rate 78 mL/min (>60); Eosinophil 2 % (0-5); Est Glom Filt Rate - Afr Amer 94 mL/min (>60); Estimated Creatinine Clearance 50.16 ml/min; Glucose 268 mg/dL (74-106); Lymphocyte 3 % (19-41); Metamyelocyte 2 % (0-1); Monocyte 3 % (0-10); Myelocyte 1 % (0-0); Neutrophil-Band 6 % (0-5); Platelet Estimate ADEQUATE (ADEQ); Potassium 4.2 mmol/L (3.5-5.1); Protein, Total 5.5 g/dL (6.4-8.2); Sodium Level 131 mmol/L (136-145); Total Cells Counted 100 (MANUAL DIFF)
[2022-06-07 06:04] LABS: Absolute Lymphocyte Count 0.72 X10^3/uL (0.83-4.51); Absolute Neutrophil Count 21.3 X10^3/uL (2.0-7.7); Lymphocyte # 0.72 X10^3/ul (0.83-4.51); Neutrophil # 21.32 X10^3/uL (2.7-7.7); Neutrophil-Segmented 83 % (47-70); Red Cell Morphology NORM C+C NORMAL (NORM C&C)
[2022-06-07] MEDS: Insulin Lispro 100 UNIT/ML INSULN.PEN SC ×3 (06:22→17:25)
--- NOTE | 2022-06-07 06:41 | EX.PCM.CONCC ---
Assessment & Plan Assessment/Plan (1) Acute blood loss anemia: (2) Acute upper gastrointestinal bleeding: (3) Paroxysmal A-fib: (4) Respiratory failure with hypoxia: (5) Atrial fibrillation with rapid ventricular response: PLAN: Plan RECOMMENDATIONS: 1. Initiate nasal saline 2. Challenge with Lasix therapy 3. Await GI work-up. Continue Protonix and octreotide drips for now 4. Agree with empiric antibiotics 5. Wean pressors as tolerated 6. Continue to hold anticoagulation IMPRESSIONS: 1. Hemorrhagic shock secondary to upper GI bleed Some concern for Ena-Bullock tear as an etiology. Gastroenterology is following. Patient currently on octreotide and PPI drip. Patient would be at risk for gastric and duodenal ulcers given recent steroid therapy associated with COVID-19. Patient's Eliquis has been held for now. Rate appears to be relatively controlled. H&H did increment appropriately. Defer to GI on timing of intervention. 2. Acute hypoxic respiratory insufficiency Patient with bilateral interstitial infiltrates. Cannot exclude an element of postinflammatory pulmonary fibrosis given recent COVID-19 and Legionella pneumonia. Patient also appears to have significant nasal congestion leading to decreased utility of nasal cannula oxygen. Will initiate nasal spray. Cannot exclude a concomitant pneumonia. Obtain sputum culture if possible. Okay to continue on empiric antibiotics given leukocytosis. Patient may have an element of overload. Patient did receive 3 units of packed red blood cells plus IV fluids yesterday. We will give a small dose of Lasix to see if oxygen status will improve. ABG showed increased AA gradient with relatively controlled ventilation. 3. Hypovolemic hyponatremia/dehydration Patient documented as appearing dry on presentation. Patient did receive significant fluid resuscitation with improvement in sodium levels. Patient appears to be relatively volume overloaded at this time. Patient did receive significant amounts of packed red blood cells also. Will challenge with 20 mg of Lasix. 4. Chronic A. fib/diabetes mellitus type 2/hyperlipidemia/advanced age/protracted hospitalization Complicates care, management, recovery and prognosis. Family is requesting full CODE STATUS. Patient will need to work with PT/OT. Cover with sliding scale insulin. Liver function studies appear to be appropriate at this time. Intravascular oncotic pressures are low (total protein 5.5, albumin 1.5), which will complicate problem #1. This is likely secondary to protracted hospitalization. TIME: 42 minutes critical care time spent addressing patient's hemorrhagic shock, respiratory insufficiency, hyponatremia, diabetes mellitus, review of all data and collaboration with care team. HPI Consult Data Date of Consult: 06/07/22 HPI Narrative Reason for Consultation: Hypotension HPI Narrative: CARMEN MILLER is a 72 F, with past medical history listed below and known to me from previous hospitalization, who presents to [place] on 06/06/2022 secondary to hypoxia and lethargy. Patient was discharged from the hospital approximately a week ago to an extended care facility after being treated for Legionella pneumonia and COVID-19. Patient was living independent prior to this hospitalization. Patient had presented to the ER earlier in the week with hypoxia, but was sent home. Given patient with progressive lethargy, she was sent back. Patient is anticoagulated with Eliquis secondary to A. fib at baseline. Patient had a CTA of the chest 2 weeks ago that was negative for PE. In the ER, patient was afebrile and initially on a nonrebreather. Patient was subsequently weaned to 2 L nasal cannula. Patient was found to be hypotensive at 86/61, but tachypneic at 33 breaths/min. Laboratory work-up showed a white blood cell count of 24.9, hemoglobin of 8.5 and platelet count of 490. Chemistries showed a sodium of 120, chloride of 86 and potassium of 5.1. Creatinine was 1.16 with a glucose of 200. Lactate was within normal limits at 1.5. UA was not suggestive of urinary tract infection. Hemoglobin was found to be at 6.1. A subsequent ABG showed a respiratory alkalosis with increased AA gradient. Imaging studies were relatively unremarkable. Chest x-ray did show some bilateral interstitial infiltrates that did not appear to change from previous. EKG did confirm A. fib with a rate of 110. Patient did receive 2 L of IV fluids without improvement. Given ongoing hypotension, patient did have a central line placed in the left IJ without complications. Patient was placed on empiric antibiotics secondary to bilateral infiltrates on chest x-ray. Since being in the intensive care unit, patient was evaluated by GI. There was some concern for Ena-Bullock tear, but patient was deemed to require medical stabilization prior to an upper endoscopy. Patient was started on an octreotide and PPI drip. Patient did receive 3 units of packed red blood cells overnight. There was some discussion about Kcentra, but this did not have to be given. Patient is requiring Levophed, but requirements have improved from 20 down to 5. Patient wakes up to voice and interacts appropriately. However, patient is not able to provide much additional information. Patient states that she has not done well at the [facility]. Patient has been taking her medications as prescribed. Patient is not aware of any fevers or chills. Patient does fall asleep quickly. Patient states she has had significant sinus congestion which she feels complicates her oxygenation status. Patient does feel that putting the nasal cannula in her mouth helps her overall condition. [facility] Medical History COVID-19 Diabetes Frequent urinary tract infections GERD (gastroesophageal reflux disease) High cholesterol Osteoarthritis Paroxysmal A-fib Home Medications alendronate 70 mg tablet 70 mg PO MO 05/18/22 [History Last Taken 06/02/22] atorvastatin 20 mg tablet 20 mg PO QHS 05/18/22 [History Last Taken 06/05/22] metformin 500 mg tablet 500 mg PO DAILY 05/18/22 [History Last Taken 06/06/22] methenamine hippurate 1 gram tablet 1 g PO QHS 05/18/22 [History Last Taken 06/05/22] ondansetron HCl 4 mg tablet 4 mg PO TID PRN PRN Nausea 05/18/22 [History Last Taken 06/01/22] apixaban 5 mg tablet (Eliquis) 5 mg PO BID #0 tabs 05/31/22 [Rx Last Taken 06/06/22] insulin glargine-yfgn 100 unit/mL (3 mL) subcutaneous pen 10 unit (0.1 mL) subcut DAILY #0 mL 05/31/22 [Rx Last Taken 06/05/22] ipratropium 0.5 mg-albuterol 3 mg (2.5 mg base)/3 mL nebulization soln 3 ml inhalation 4X/DAY #0 mL 05/31/22 [Rx Last Taken 06/06/22] sodium chloride 0.65 % nasal spray aerosol (Deep Sea Nasal) 1 spray NASAL BID #0 mL 05/31/22 [Rx Last Taken 06/06/22] insulin lispro 100 unit/mL subcutaneous pen See Protocol subcut TID 06/03/22 [History Last Taken 06/06/22] diltiazem HCl 120 mg capsule,extended release 24 hr 120 mg PO BID 06/06/22 [History Last Taken 06/06/22] omeprazole 20 mg capsule,delayed release 40 mg PO DAILY GERD 06/06/22 [History Last Taken 06/06/22] Allergy/AdvReac Type Severity Reaction Status Date / Time No Known Allergies Allergy Verified 06/06/22 14:17 Social History Smoking Status: Current every day smoker tobacco type: cigarettes ROS Review of Systems ROS Unobtainable: due to mental status Physical Exam Const Constitutional Narrative: Patient is pale and ill-appearing. Patient opens eyes to voice, but falls asleep quickly General Appearance: well developed and frail Orientation / Consciousness: awake HEENT normocephalic, head/scalp atraumatic and moist oral mucous membranes Eyes PERRL, EOMs intact bilaterally and conjunctivae normal Neck supple, no JVD and thyroid normal Neck Narrative: Left internal jugular venous line was in place without hemorrhage or induration General: trachea midline Resp Auscultation: rales right throughout; Negative for rhonchi or wheezes Cardio regular rate, no murmurs, no rub and no gallops Rhythm: abnormal rhythm irregularly irregular GI normal to inspection, nondistended, normoactive bowel sounds, soft to palpation, non-tender and non-distended Extremity no clubbing, cyanosis or edema Skin no rashes or lesions noted General Skin Exam: no breakdown Neuro CN's II-XII intact bilaterally, moves all extremities, no focal motor deficits and no sensory deficits noted Sensorium / Orientation: awake Speech: speech normal Psych Psych Narrative: Patient is lethargic and awake Mood & Affect: flat affect Lab / Micro Data Attestation: I reviewed the patient's lab results. Result Diagrams: 06/07/22 05:35 06/07/22 05:35 Labs: Laboratory Results - last 24 hr 06/06/22 15:10: WBC 24.9 H, RBC 2.90 L, Hgb 8.5 L, Hct 25.6 L, MCV 88.3, MCH 29.3, MCHC 33.2, RDW Std Deviation 46.5 H, RDW Coeff of Palak 14.6, Plt Count 490 H, MPV 10.2, Immature Gran % (Auto) 3.100 H, Neut % (Auto) 85.3 H, Lymph % (Auto) 8.0 L, [place] % (Auto) 2.3, Eos % (Auto) 1.1, Baso % (Auto) 0.2, Absolute Neuts (auto) 21.2 H, Absolute Lymphs (auto) 1.98, Nucleated RBC % 0.1, Differential Comment SCANNED 06/06/22 15:10: PT Cancelled, INR Cancelled, APTT Cancelled 06/06/22 15:10: Sodium 120 L, Potassium 5.1, Chloride 86 L, Carbon Dioxide 24.0, Anion Gap 10, BUN 67 H, Creatinine 1.16 H, Estim Creat Clear Calc 45.52, Est GFR (MDRD) Af Amer 59 L, Est GFR (MDRD) Non-Af 49 L, BUN/Creatinine Ratio 57.8 H, Glucose 200 H, Calcium 8.9, Total Bilirubin 0.40, AST 33, ALT 39, Alkaline Phosphatase 124 H, Troponin I High Sens 17, Total Protein 6.4, Albumin 1.8 L, Globulin 4.6 H, Albumin/Globulin Ratio 0.4 L 06/06/22 15:10: Lactic Acid 1.5 06/06/22 16:23: PT Cancelled, INR Cancelled, APTT Cancelled 06/06/22 16:23: Blood Type O POSITIVE, Antibody Screen NEGATIVE 06/06/22 16:23: Crossmatch See Detail 06/06/22 16:23: Crossmatch See Detail 06/06/22 16:30: Urine Color Yellow, Urine Clarity Sl. Cloudy, Urine pH 6.0, Ur Specific [place] 1.010, Urine Protein 30 H, Urine Glucose (UA) 50 H, Urine Ketones 5 H, Urine Occult Blood 250 H, Urine Nitrite Negative, Urine Bilirubin Negative, Urine Urobilinogen Normal, Ur Leukocyte Esterase 25 H, Urine RBC 50-100 SEEN, Urine WBC 0-5 SEEN, Ur Squamous Epith Cells 0 SEEN, Urine Bacteria RARE, Urine Mucus 0 SEEN 06/06/22 19:50: Hgb 6.1 L, Hct 18.8 L 06/06/22 23:33: POC Glucose 197 H 06/07/22 05:35: WBC 24.0 H, RBC 4.14 L, Hgb 11.7 L, Hct 35.4 L, MCV 85.5, MCH 28.3, MCHC 33.1, RDW Std Deviation 54.6 H, RDW Coeff of Palak 17.5 H, Plt Count 322, MPV 9.5, Neut % (Auto) Not Reportable, Absolute Neuts (auto) 21.3 H, Absolute Lymphs (auto) 0.72 L, Total Counted 100, Neutrophils % (Manual) 83 H, Band Neutrophils % 6 H, Lymphocytes % (Manual) 3 L, Monocytes % (Manual) 3, Eosinophils % (Manual) 2, Metamyelocytes % 2 H, Myelocytes % 1 H, Diff Path Review February, Platelet Estimate ADEQUATE, RBC Morphology NORM C+C 06/07/22 05:35: PT 15.0 H, INR 1.2 06/07/22 05:35: Sodium 131 L, Potassium 4.2, Chloride 101, Carbon Dioxide 21.0, Anion Gap 9, BUN 45 H, Creatinine 0.78, Estim Creat Clear Calc 50.16, Est GFR (MDRD) Af Amer 94, Est GFR (MDRD) Non-Af 78, BUN/Creatinine Ratio 57.7 H, Glucose 268 H, Calcium 6.7 L, Total Bilirubin 1.40 H, AST 34, ALT 38, Alkaline Phosphatase 102, Total Protein 5.5 L, Albumin 1.5 L, Globulin 4.0, Albumin/Globulin Ratio 0.4 L ABG Data ABG results: ABG 06/06/22 15:29 Specimen Type ART Sample Site L Radial pH 7.54 H Bicarbonate Actual 22.4 Total CO2 23 Base Excess 0 O2 Saturation 99 ABG pCO2 26.3 L ABG pO2 115 H Lakhwinder Test Positive O2 Delivery Device NRB Liter Flow 15.0 Attestation: I personally reviewed and interpreted this ABG as follows: (Interpreted in HPI) Rhythm Strip Rhythm Strip: A-fib Rate: 95 Ectopy: None Radiology Impression Brain CT 06/06/22 16:35 IMPRESSION: Chronic involutional changes of the brain. Electronically Signed: Juan David Haque MD at 16:56 EDT , Chest X-Ray 06/06/22 16:45 IMPRESSION: Emphysema with no change in the bilateral patchy pneumonia. Electronically Signed: Juan David Haque MD at 17:29 EDT , Chest X-Ray 06/06/22 20:05 IMPRESSION: There has been no change in the appearance of the chest since the prior study. Electronically Signed: George Pulliam MD at 20:26 EDT , Charges/Coding Procedures Hospitalists Procedures: [id number] [facility] Care 1st Hr
[2022-06-07] MEDS: Ipratropium/Albuterol Sulfate 3 ML AMPUL.NEB INHALATION ×3 (07:12→18:50)
[2022-06-07] MEDS: Furosemide 20 MG/2 ML VIAL IV (07:12)
[2022-06-07] MEDS: Sodium Chloride 0.65% 1 SPRAY SPRAY.BTL 2 SPRAY NASAL (08:00)
[2022-06-07] MEDS: TITRATION PARAMETER CHANGE 1 EACH IV (09:24)
[2022-06-07] MEDS: Insulin Glargine-YFGN 100 UNIT/ML Pen 10 UNIT SC (09:27)
[2022-06-07 09:56] LABS: Bedside Glucose 231 mg/dL (74-106)
--- NOTE | 2022-06-07 10:52 | PCM.PROGNOTE ---
Subjective Subjective She seems to be more alert and awake today. She is having less oxygen requirement. She is still requiring pressor therapy. Her daughter is at the bedside. Objective Data Objective Data Vital Signs: Vital Signs Temp Pulse Resp BP Pulse Ox O2 Del Method O2 Flow Rate 98.6 F 106 H 28 H 92/59 L 95 Nasal Cannula 4 06/07/22 09:00 06/07/22 10:00 06/07/22 10:00 06/07/22 10:30 06/07/22 10:00 06/07/22 10:00 06/07/22 10:00 FiO2 3 06/07/22 06:00 Oxygen Flow Rate (L/min) 4 Oxygen Delivery Method Nasal Cannula Weight: 133 lb 13.129 oz Body Mass Index (BMI) 20.3 Intake & Output: Intake and Output for Last 24 Hours 06/05/22 06/06/22 06/07/22 23:59 23:59 23:59 Intake Total 2326.14 / 2333.17 1723.93 / 1723.93 Output Total 450 / 575 1495 / 1495 Balance 1876.14 / 1758.17 228.93 / 228.93 Lab / Micro Data Result Diagrams: 06/07/22 05:35 06/07/22 05:35 Labs: Laboratory Results - last 24 hr 06/06/22 15:10: WBC 24.9 H, RBC 2.90 L, Hgb 8.5 L, Hct 25.6 L, MCV 88.3, MCH 29.3, MCHC 33.2, RDW Std Deviation 46.5 H, RDW Coeff of Palak 14.6, Plt Count 490 H, MPV 10.2, Immature Gran % (Auto) 3.100 H, Neut % (Auto) 85.3 H, Lymph % (Auto) 8.0 L, [place] % (Auto) 2.3, Eos % (Auto) 1.1, Baso % (Auto) 0.2, Absolute Neuts (auto) 21.2 H, Absolute Lymphs (auto) 1.98, Nucleated RBC % 0.1, Differential Comment SCANNED 06/06/22 15:10: PT Cancelled, INR Cancelled, APTT Cancelled 06/06/22 15:10: Sodium 120 L, Potassium 5.1, Chloride 86 L, Carbon Dioxide 24.0, Anion Gap 10, BUN 67 H, Creatinine 1.16 H, Estim Creat Clear Calc 45.52, Est GFR (MDRD) Af Amer 59 L, Est GFR (MDRD) Non-Af 49 L, BUN/Creatinine Ratio 57.8 H, Glucose 200 H, Calcium 8.9, Total Bilirubin 0.40, AST 33, ALT 39, Alkaline Phosphatase 124 H, Troponin I High Sens 17, Total Protein 6.4, Albumin 1.8 L, Globulin 4.6 H, Albumin/Globulin Ratio 0.4 L 06/06/22 15:10: Lactic Acid 1.5 06/06/22 16:23: PT Cancelled, INR Cancelled, APTT Cancelled 06/06/22 16:23: Blood Type O POSITIVE, Antibody Screen NEGATIVE 06/06/22 16:23: Crossmatch See Detail 06/06/22 16:23: Crossmatch See Detail 06/06/22 16:30: Urine Color Yellow, Urine Clarity Sl. Cloudy, Urine pH 6.0, Ur Specific [place] 1.010, Urine Protein 30 H, Urine Glucose (UA) 50 H, Urine Ketones 5 H, Urine Occult Blood 250 H, Urine Nitrite Negative, Urine Bilirubin Negative, Urine Urobilinogen Normal, Ur Leukocyte Esterase 25 H, Urine RBC 50-100 SEEN, Urine WBC 0-5 SEEN, Ur Squamous Epith Cells 0 SEEN, Urine Bacteria RARE, Urine Mucus 0 SEEN 06/06/22 19:50: Hgb 6.1 L, Hct 18.8 L 06/06/22 23:33: POC Glucose 197 H 06/07/22 05:35: WBC 24.0 H, RBC 4.14 L, Hgb 11.7 L, Hct 35.4 L, MCV 85.5, MCH 28.3, MCHC 33.1, RDW Std Deviation 54.6 H, RDW Coeff of Palak 17.5 H, Plt Count 322, MPV 9.5, Neut % (Auto) Not Reportable, Absolute Neuts (auto) 21.3 H, Absolute Lymphs (auto) 0.72 L, Total Counted 100, Neutrophils % (Manual) 83 H, Band Neutrophils % 6 H, Lymphocytes % (Manual) 3 L, Monocytes % (Manual) 3, Eosinophils % (Manual) 2, Metamyelocytes % 2 H, Myelocytes % 1 H, Diff Path Review May foll, Platelet Estimate ADEQUATE, RBC Morphology NORM C+C 06/07/22 05:35: PT 15.0 H, INR 1.2 06/07/22 05:35: Sodium 131 L, Potassium 4.2, Chloride 101, Carbon Dioxide 21.0, Anion Gap 9, BUN 45 H, Creatinine 0.78, Estim Creat Clear Calc 50.16, Est GFR (MDRD) Af Amer 94, Est GFR (MDRD) Non-Af 78, BUN/Creatinine Ratio 57.7 H, Glucose 268 H, Calcium 6.7 L, Total Bilirubin 1.40 H, AST 34, ALT 38, Alkaline Phosphatase 102, Total Protein 5.5 L, Albumin 1.5 L, Globulin 4.0, Albumin/Globulin Ratio 0.4 L 06/07/22 09:26: POC Glucose 231 H ABG Data ABG results: ABG 06/06/22 15:29 Specimen Type ART Sample Site L Radial pH 7.54 H Bicarbonate Actual 22.4 Total CO2 23 Base Excess 0 O2 Saturation 99 ABG pCO2 26.3 L ABG pO2 115 H Lakhwinder Test Positive O2 Delivery Device NRB Liter Flow 15.0 Radiography Diagnostic Testing: Radiology Impression Brain CT 06/06/22 16:35 IMPRESSION: Chronic involutional changes of the brain. Electronically Signed: Juan David Haque MD at 16:56 EDT , Chest X-Ray 06/06/22 16:45 IMPRESSION: Emphysema with no change in the bilateral patchy pneumonia. Electronically Signed: Juan David Haque MD at 17:29 EDT , Chest X-Ray 06/06/22 20:05 IMPRESSION: There has been no change in the appearance of the chest since the prior study. Electronically Signed: George Pulliam MD at 20:26 EDT , Rhythm Strip Rhythm Strip: A-fib Rate: 95 Ectopy: None Physical Exam Const Constitutional Narrative: Patient is pale and ill-appearing. Patient opens eyes to voice, but falls asleep quickly General Appearance: well developed and frail Orientation / Consciousness: awake HEENT normocephalic, head/scalp atraumatic and moist oral mucous membranes Eyes PERRL, EOMs intact bilaterally and conjunctivae normal Neck supple, no JVD and thyroid normal Neck Narrative: Left internal jugular venous line was in place without hemorrhage or induration General: trachea midline Resp Auscultation: rales right throughout; Negative for rhonchi or wheezes Cardio regular rate, no murmurs, no rub and no gallops Rhythm: abnormal rhythm irregularly irregular GI normal to inspection, nondistended, normoactive bowel sounds, soft to palpation, non-tender and non-distended Extremity no clubbing, cyanosis or edema Skin no rashes or lesions noted General Skin Exam: no breakdown Neuro CN's II-XII intact bilaterally, moves all extremities, no focal motor deficits and no sensory deficits noted Sensorium / Orientation: awake Speech: speech normal Psych Psych Narrative: Patient is lethargic and awake Mood & Affect: flat affect Assessment & Plan Assessment/Plan (1) Acute blood loss anemia: PLAN: Acute blood loss anemia thought to be secondary to upper GI bleed. Patient is not stable enough for endoscopy at this time as her oxygen requirements are still very high and she still on pressor therapy. Recommend to continue PPI therapy and octreotide as I started yesterday. We will take a day by day depending on her hemodynamic stability. Charges/Coding Visit Charges Inpatient E&M: 30406 Subs Hosp L2
[2022-06-07 11:40] LABS: Bedside Glucose 231 mg/dL (74-106)
--- NOTE | 2022-06-07 15:41 | PCM.PN.HOSP ---
Subjective Subjective Patient reports she is feeling better today with blood transfusion. Strangely patient's hemoglobin was 6.1 and improved to 11.7 with 3 units of blood. Remains on low-dose pressors at 3 mics. Hemodynamics seem to be improving. Objective Data Objective Data Vital Signs: Vital Signs Temp Pulse Resp BP Pulse Ox O2 Del Method O2 Flow Rate 98.7 F 109 H 29 H 106/68 97 Nasal Cannula 3 06/07/22 15:00 06/07/22 15:03 06/07/22 15:00 06/07/22 15:00 06/07/22 15:00 06/07/22 15:00 06/07/22 15:00 FiO2 3 06/07/22 06:00 Oxygen Flow Rate (L/min) 3 Oxygen Delivery Method Nasal Cannula Weight: 60.7 kg Body Mass Index (BMI) 20.3 Intake & Output: Intake and Output for Last 24 Hours 06/05/22 06/06/22 06/07/22 23:59 23:59 23:59 Intake Total 2326.14 / 2333.17 2121.95 / 2121.95 Output Total 450 / 575 2145 / 2145 Balance 1876.14 / 1758.17 -23.05 / -23.05 Medical Nutrition Assessment Dietitian: Malnutrition Criteria Met Start: 06/07/22 11:00 Freq: Status: Active Protocol: Document 06/07/22 11:00 (Rec: 06/07/22 11:00 [id number]) Nutrition Malnutrition Evidence of Malnutrition Exists Yes Malnutrition (severe): Acute Illness/Injury Evidenced By Suboptimal Energy Intake ( Severe),Weight Loss (Severe), Physical Changes (Moderate) Clinical Problem Acute Disease or Injury Related Malnutrition Etiology (severe) related to pneumonia and GI bleed Signs/Symptoms as evidenced by 8.7% weight loss in <1 month, <50% PO intake for ~3 weeks, and fat/ muscle loss Status Active Problem Recommendation Dietitian Recommendations/Changes ADAT to Transitional diet when medically able. Ensure Clear 120mL 4x daily with medpass when diet advances to Clear Liquid. Ensure Pudding 1x daily and Magic Cup 1x daily when diet advances >Clear Liquid diet. Lab / Micro Data Result Diagrams: 06/07/22 11:15 06/07/22 05:35 Labs: Laboratory Results - last 24 hr 06/06/22 15:10: Differential Comment SCANNED 06/06/22 15:10: PT Cancelled, INR Cancelled, APTT Cancelled 06/06/22 15:10: Lactic Acid 1.5 06/06/22 16:23: PT Cancelled, INR Cancelled, APTT Cancelled 06/06/22 16:23: Blood Type O POSITIVE, Antibody Screen NEGATIVE 06/06/22 16:23: Crossmatch See Detail 06/06/22 16:23: Crossmatch See Detail 06/06/22 16:30: Urine Color Yellow, Urine Clarity Sl. Cloudy, Urine pH 6.0, Ur Specific [place] 1.010, Urine Protein 30 H, Urine Glucose (UA) 50 H, Urine Ketones 5 H, Urine Occult Blood 250 H, Urine Nitrite Negative, Urine Bilirubin Negative, Urine Urobilinogen Normal, Ur Leukocyte Esterase 25 H, Urine RBC 50-100 SEEN, Urine WBC 0-5 SEEN, Ur Squamous Epith Cells 0 SEEN, Urine Bacteria RARE, Urine Mucus 0 SEEN 06/06/22 19:50: Hgb 6.1 L, Hct 18.8 L 06/06/22 23:33: POC Glucose 197 H 06/07/22 05:35: WBC 24.0 H, RBC 4.14 L, Hgb 11.7 L, Hct 35.4 L, MCV 85.5, MCH 28.3, MCHC 33.1, RDW Std Deviation 54.6 H, RDW Coeff of Palak 17.5 H, Plt Count 322, MPV 9.5, Neut % (Auto) Not Reportable, Absolute Neuts (auto) 21.3 H, Absolute Lymphs (auto) 0.72 L, Total Counted 100, Neutrophils % (Manual) 83 H, Band Neutrophils % 6 H, Lymphocytes % (Manual) 3 L, Monocytes % (Manual) 3, Eosinophils % (Manual) 2, Metamyelocytes % 2 H, Myelocytes % 1 H, Diff Path Review February, Platelet Estimate ADEQUATE, RBC Morphology NORM C+C 06/07/22 05:35: PT 15.0 H, INR 1.2 06/07/22 05:35: Sodium 131 L, Potassium 4.2, Chloride 101, Carbon Dioxide 21.0, Anion Gap 9, BUN 45 H, Creatinine 0.78, Estim Creat Clear Calc 50.16, Est GFR (MDRD) Af Amer 94, Est GFR (MDRD) Non-Af 78, BUN/Creatinine Ratio 57.7 H, Glucose 268 H, Calcium 6.7 L, Total Bilirubin 1.40 H, AST 34, ALT 38, Alkaline Phosphatase 102, Total Protein 5.5 L, Albumin 1.5 L, Globulin 4.0, Albumin/Globulin Ratio 0.4 L 06/07/22 09:26: POC Glucose 231 H 06/07/22 11:15: Hgb 12.0 06/07/22 11:23: POC Glucose 231 H Micro: Microbiology 06/06/22 16:30 Urine Catheter - [place] Urine Culture - Preliminary Gram negative cathie ABG Data ABG results: ABG 06/06/22 15:29 Specimen Type ART Sample Site L Radial pH 7.54 H Bicarbonate Actual 22.4 Total CO2 23 Base Excess 0 O2 Saturation 99 ABG pCO2 26.3 L ABG pO2 115 H Lakhwinder Test Positive O2 Delivery Device NRB Liter Flow 15.0 Radiography Diagnostic Testing: Radiology Impression Brain CT 06/06/22 16:35 IMPRESSION: Chronic involutional changes of the brain. Electronically Signed: Juan David Haque MD at 16:56 EDT , Chest X-Ray 06/06/22 16:45 IMPRESSION: Emphysema with no change in the bilateral patchy pneumonia. Electronically Signed: Juan David Haque MD at 17:29 EDT , Chest X-Ray 06/06/22 20:05 IMPRESSION: There has been no change in the appearance of the chest since the prior study. Electronically Signed: George Pulliam MD at 20:26 EDT , Rhythm Strip Rhythm Strip: A-fib Rate: 95 Ectopy: None Physical Exam Const Constitutional Narrative: Older, debilitated, white female lying in bed, appears much older than stated age, nasal cannula in oropharynx for oxygen supplementation, patient appears ill HEENT head/scalp atraumatic HEENT Narrative: Mucous membranes are dry, dentition is fair, Mallampati is 2, no thrush Head and Scalp: normocephalic Resp Resp Narrative: Scattered rhonchi and crackles, no wheeze, cough is very coarse and bronchial sounding, currently on 4 L nasal cannula Auscultation: crackles and rhonchi; Negative for wheezes Cardio regular rate, S1 normal heart sound, S2 normal heart sound, no murmurs, no rub, no gallops, no clicks and no JVD Cardio Narrative: Irregular rhythm with rate control GI normal to inspection, nondistended, normoactive bowel sounds, soft to palpation, non-tender and non-distended; Negative for hepatosplenomegaly Extremity no clubbing, cyanosis or edema Extremity Narrative: Trace to 1+ bilateral extremity edema, no cyanosis or clubbing Skin skin turgor normal, no jaundice, no petechiae and no mottling Skin Narrative: Pale skin with scattered ecchymosis, left IJ in place-dressing is clean dry and intact Neuro oriented x3, moves all extremities and no focal motor deficits Neuro Narrative: Marked generalized weakness, no focal deficits Speech: speech normal Assessment & Plan Assessment/Plan (1) Acute upper gastrointestinal bleeding: (2) Hemorrhagic shock: (3) Acute respiratory failure with hypoxia: (4) Acute respiratory failure with hypoxia: (5) Dehydration: (6) Hyponatremia: (7) Dehydration: PLAN: Plan Hemorrhagic shock secondary to upper GI bleed -Hemoglobin on presentation was 6.1--> given 3 units of packed red blood cells with repeat hemoglobin of 11 this morning -Continue to hold anticoagulation -Patient remains on low-dose Levophed at 3 mics -Wean as able -Continue Protonix and octreotide drip per gastroenterology -Plan is for EGD once patient is hemodynamically stable -Diet per GI Acute hypoxic respiratory failure -Patient with bilateral interstitial infiltrates -Recent COVID-19 and Legionella pneumonia -Treatment has been completed for these -We will try to obtain sputum culture to rule out concomitant pneumonia -Continue empiric antibiotics for now with leukocytosis -Lasix 20 mg IV push x1 dose given today to see if we can improve oxygen status -Patient was on 3 to 4 L at discharge from 05/31/2022 -White count is trending down -Pulmonary medicine following and appreciate input Hyponatremia -Sodium was 120 on admission -Improved to 131 with fluids and blood -Repeat BMP in a.m. -Suspect hypovolemic as BUN and creatinine have improved as well Acute dehydration -Resolved Chronic atrial fibrillation -Heart rate is starting to trend up -On Cardizem at baseline which is currently being held secondary to blood pressure -We will trial low-dose metoprolol as it is possible that if we improve her heart rate her blood pressure will improve--> if this does not work we may have to consider digoxin -Hold anticoagulation secondary to GI bleed DM-2 -Restart home Lantus -Continue sliding scale -Accu-Cheks -Diabetic diet when p.o. is reinitiated -Hold home metformin Hyperlipidemia -If respiratory status remains stable will reinitiate tomorrow Osteoporosis -Alendronate on hold -Restart on discharge DVT prophylaxis -SCDs -No chemoprophylaxis secondary to GI bleed CODE STATUS -Full code Charges/Coding Visit Charges Inpatient E&M: 55942 Subs Hosp L2
[2022-06-07] MEDS: Metoprolol Tartrate 5 MG/5 ML Vial IV (15:54)
[2022-06-07 17:46] LABS: Bedside Glucose 160 mg/dL (74-106)
--- NOTE | 2022-06-07 19:10 | CASEMGMT ---
[facility] CM Readmission Note Previous Admission:? 05/18/2022-05/31/2022 Diagnosis:? COVID 19 PNA DC Disposition: [facility] Current Admission? Current Diagnosis:hemmorhagic shock, upper GIB, PNA Patient diagnosed with COVID 05/14, she was discharged from the hospital 1 week ago after also being diagnosed with Legionella pneumonia, she was discharged to [facility], she was living independently prior to the illness. Pt was in [facility] ER on 06/03/22 and dc'd back to facility with oxygen. Patient presented wtih being hypotensive at SNF and sob. Patient was noted to be hypotensive in the emergency room, her blood pressure was 83/66. Patient admitted to ICU for upper GI bleed with anemia, pneumonia, hemorrhagic shock, and, a central line was placed prior to her admission to ICU for pressor support if needed, patient's family request full measures at this time, patient will be given 1 unit of packed red blood cells due to her hypotension. Pulm and GI to see pt, maintained on Protonix drip and octreotide drip. DC Plan: [facility] TCU pending acceptance and medically ready.
[2022-06-07] MEDS: Menthol/Lanolin/Calamine/Znox 113 GM Tube 1 APPLIC TOPICAL (21:23)
[2022-06-07 23:46] LABS: Bedside Glucose 138 mg/dL (74-106)
[2022-06-08] VITALS (53 sets, daily range): BP systolic 80–121; BP diastolic 49–85; PULSE 91–123; RESP 18–30; TEMP 36.9–37.2; O2SAT 89–97
[2022-06-08] MEDS: Ipratropium/Albuterol Sulfate 3 ML AMPUL.NEB INHALATION ×4 (01:04→19:20)
[2022-06-08 04:59] LABS: Hematocrit 35.7 % (37-47); Hemoglobin 11.9 g/dL (12.0-15.0); Mean Corp Hgb Conc 33.3 g/dL (32-36); Mean Corpuscular Hgb 28.3 pg (27.0-32.0); Mean Platelet Vol. 9.3 fl (6.2-12.0); POSITIVE COUNT YES; POSITIVE DIFFERENTIAL YES; POSITIVE MORPHOLOGY YES; Platelet Count 337 K/mm3 (150-450); RBC Distribution Width CV 19.2 % (11.6-14.6); RBC Distribution Width SD 59.1 fl (35.1-43.9); White Blood Count 23.4 K/mm3 (4.4-11.0)
[2022-06-08 05:10] LABS: Differential Indicated MANUAL DIFF
[2022-06-08 05:34] LABS: ALB/GLOB Ratio 0.4 RATIO (0.9-2.4); AST(SGOT) 35 U/L (15-37); Alanine Aminotransfer ALT/SGPT 32 U/L (13-56); Albumin, Serum 1.5 g/dL (3.2-5.0); Alkaline Phosphatase 101 U/L (45-117); Anion Gap 9 (5-15); BUN 25 mg/dL (7-18); BUN/Creat Ratio 43.5 RATIO (10-20); Calcium,Total 6.9 mg/dL (8.5-10.1); Chloride 98 mmol/L (98-107); Creatinine, Serum 0.58 mg/dL (0.55-1.02); EST Glomerular Filtration Rate 110 mL/min (>60); Est Glom Filt Rate - Afr Amer 133 mL/min (>60); Estimated Creatinine Clearance 50.16 ml/min; Globulin 4.1 g/dL (2.2-4.2); Glucose 183 mg/dL (74-106); Potassium 3.5 mmol/L (3.5-5.1); Protein, Total 5.6 g/dL (6.4-8.2); Sodium Level 131 mmol/L (136-145)
[2022-06-08] MEDS: Menthol/Lanolin/Calamine/Znox 113 GM Tube 1 APPLIC TOPICAL ×3 (05:40→21:42)
[2022-06-08] MEDS: Insulin Lispro 100 UNIT/ML INSULN.PEN SC ×4 (05:40→21:50)
[2022-06-08 05:55] LABS: Bedside Glucose 200 mg/dL (74-106)
[2022-06-08 06:01] LABS: Anisocytosis 2+; Platelet Estimate ADEQUATE (ADEQ)
[2022-06-08 06:05] LABS: Absolute Lymphocyte Count 0.23 X10^3/uL (0.83-4.51); Absolute Neutrophil Count 18.2 X10^3/uL (2.0-7.7)
[2022-06-08 06:06] LABS: Eosinophil 11 % (0-5); Lymphocyte 1 % (19-41); Monocyte 3 % (0-10); Myelocyte 6 % (0-0); Neutrophil-Band 7 % (0-5); Neutrophil-Segmented 71 % (47-70); Promyelocyte 1 % (0-0); Total Cells Counted 100 (MANUAL DIFF)
--- NOTE | 2022-06-08 06:37 | PN.CC_ITS ---
Assessment & Plan Assessment/Plan (1) Acute blood loss anemia: (2) Acute upper gastrointestinal bleeding: (3) Paroxysmal A-fib: (4) Respiratory failure with hypoxia: (5) Atrial fibrillation with rapid ventricular response: PLAN: Plan RECOMMENDATIONS: 1. Continue nasal saline 2. Hold on diuretic therapy for now 3. Await GI work-up. Continue Protonix and octreotide drips for now. Defer timing of EGD to GI 4. Continue with empiric antibiotics pending cultures 5. Wean pressors as tolerated 6. Possibly rechallenge with heparin drip if okay with GI 7. Obtain cortisol and start aspergillus workup IMPRESSIONS: 1. Hemorrhagic shock secondary to upper GI bleed Some concern for Ena-Bullock tear as an etiology. Gastroenterology is following. Patient currently on octreotide and PPI drip. Patient would be at risk for gastric and duodenal ulcers given recent steroid therapy associated with COVID-19. Patient's Eliquis has been held for now. Rate appears to be relatively controlled. H&H did increment appropriately. Defer to GI on timing of intervention. Patient has been off of anticoagulation for 48 hours. Given resolution of bowel movements, could challenge with a heparin drip. Would not recommend 10 a inhibitor until definitive investigation has been completed. Patient does not have an acute abdomen at this time. Cannot exclude SBP, but fluid wave is not evident. Patient has persisted in leukocytosis throughout the hospitalization. 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 Patient now has eosinophilia, so will add work-up for invasive aspergillus and initiate voriconazole. Infectious disease should be consulted. Could add stress dose steroids if random cortisol less than 20. 2. Acute hypoxic respiratory insufficiency Patient with bilateral interstitial infiltrates. Cannot exclude an element of postinflammatory pulmonary fibrosis given recent COVID-19 and Legionella pneumonia. Patient also appears to have significant nasal congestion leading to decreased utility of nasal cannula oxygen. Will continue nasal spray. Cannot exclude a concomitant pneumonia. Patient much improved following Lasix therapy yesterday. However, patient continues to have pressor requirements. 3. Hypovolemic hyponatremia/dehydration Patient documented as appearing dry on presentation. Patient did receive significant fluid resuscitation with improvement in sodium levels. Patient appears to be relatively volume overloaded at this time. Patient did receive significant amounts of packed red blood cells also. Stable sodium levels over the last 24 hours 4. Chronic A. fib/diabetes mellitus type 2/hyperlipidemia/advanced age/protracted hospitalization Complicates care, management, recovery and prognosis. Family is requesting full CODE STATUS. Patient will need to work with PT/OT. Cover with sliding scale insulin. Liver function studies appear to be appropriate at this time. Intravascular oncotic pressures are low (total protein 5.5, albumin 1.5), which will complicate problem #1. This is likely secondary to protracted hospitalization. TIME: 32 minutes critical care time spent addressing patient's hemorrhagic shock, respiratory insufficiency, hyponatremia, diabetes mellitus, review of all data and collaboration with care team. Subjective Subjective Patient did okay overnight. No bowel movements have been noted. Patient remains on Levophed at this time. Patient subjectively feels improved compared to previous. Patient is not reporting any chest pain or abdominal pain. Patient's respiratory status has remained stable on 2 L nasal cannula. Patient does have a negative fluid balance compared to yesterday. Objective Data Objective Data Vital Signs: Vital Signs Temp Pulse Resp BP Pulse Ox O2 Del Method O2 Flow Rate 37.0 C 94 20 H 102/68 93 Nasal Cannula 2 06/08/22 06:00 06/08/22 06:00 06/08/22 06:00 06/08/22 06:00 06/08/22 06:00 06/08/22 06:00 06/08/22 06:00 FiO2 3 06/07/22 06:00 Oxygen Flow Rate (L/min) 2 Oxygen Delivery Method Nasal Cannula Weight: 60.7 kg Body Mass Index (BMI) 20.3 Intake & Output: Intake and Output for Last 24 Hours 06/06/22 06/07/22 06/08/22 23:59 23:59 23:59 Intake Total 2326.14 / 2333.17 2423.33 / 2425.68 80.53 / 80.53 Output Total 450 / 575 2570 / 2570 435 / 435 Balance 1876.14 / 1758.17 -146.67 / -144.32 -354.47 / -354.47 Medical Nutrition Assessment Dietitian: Malnutrition Criteria Met Start: 06/07/22 11:00 Freq: Status: Active Protocol: Document 06/07/22 11:00 (Rec: 06/07/22 11:00 [id number]) Nutrition Malnutrition Evidence of Malnutrition Exists Yes Malnutrition (severe): Acute Illness/Injury Evidenced By Suboptimal Energy Intake ( Severe),Weight Loss (Severe), Physical Changes (Moderate) Clinical Problem Acute Disease or Injury Related Malnutrition Etiology (severe) related to pneumonia and GI bleed Signs/Symptoms as evidenced by 8.7% weight loss in <1 month, <50% PO intake for ~3 weeks, and fat/ muscle loss Status Active Problem Recommendation Dietitian Recommendations/Changes ADAT to Transitional diet when medically able. Ensure Clear 120mL 4x daily with medpass when diet advances to Clear Liquid. Ensure Pudding 1x daily and Magic Cup 1x daily when diet advances >Clear Liquid diet. Lab / Micro Data Attestation: I reviewed the patient's lab results. Result Diagrams: 06/08/22 04:50 06/08/22 04:50 Labs: Laboratory Results - last 24 hr 06/07/22 09:26: POC Glucose 231 H 06/07/22 11:15: Hgb 12.0 06/07/22 11:23: POC Glucose 231 H 06/07/22 17:24: POC Glucose 160 H 06/07/22 23:24: POC Glucose 138 H 06/08/22 04:50: WBC 23.4 H, RBC 4.20, Hgb 11.9 L, Hct 35.7 L, MCV 85.0, MCH 28.3, MCHC 33.3, RDW Std Deviation 59.1 H, RDW Coeff of Palak 19.2 H, Plt Count 337, MPV 9.3, Neut % (Auto) Not Reportable, Absolute Neuts (auto) 18.2 H, Absolute Lymphs (auto) 0.23 L, Total Counted 100, Neutrophils % (Manual) 71 H, B and Neutrophils % 7 H, Lymphocytes % (Manual) 1 L, Monocytes % (Manual) 3, Eosinophils % (Manual) 11 H, Myelocytes % 6 H, Promyelocytes % 1 H, Diff Path Review May foll, Platelet Estimate ADEQUATE, Anisocytosis 2+ 06/08/22 04:50: Sodium 131 L, Potassium 3.5, Chloride 98, Carbon Dioxide 24.0, Anion Gap 9, BUN 25 H, Creatinine 0.58, Estim Creat Clear Calc 50.16, Est GFR (MDRD) Af Amer 133, Est GFR (MDRD) Non-Af 110, BUN/Creatinine Ratio 43.5 H, Glucose 183 H, Calcium 6.9 L, Total Bilirubin 0.60, AST 35, ALT 32, Alkaline Phosphatase 101, Total Protein 5.6 L, Albumin 1.5 L, Globulin 4.1, Albumin/Gl obulin Ratio 0.4 L 06/08/22 05:38: POC Glucose 200 H Micro: Microbiology 06/06/22 16:30 Urine Catheter - [place] Urine Culture - Preliminary Gram negative cathie Rhythm Strip Rhythm Strip: A-fib Rate: 98 Ectopy: None Physical Exam Const alert and oriented x3 Constitutional Narrative: Patient has better color and appears more comfortable compared to admission. General Appearance: well developed and frail Orientation / Consciousness: awake HEENT normocephalic, head/scalp atraumatic and moist oral mucous membranes Eyes PERRL, EOMs intact bilaterally and conjunctivae normal Neck supple, no JVD and thyroid normal Neck Narrative: Left internal jugular venous line was in place without hemorrhage or induration General: trachea midline Resp Resp Narrative: Rales improved compared to yesterday Auscultation: rales right throughout; Negative for rhonchi or wheezes Cardio regular rate, no murmurs, no rub and no gallops Rhythm: abnormal rhythm irregularly irregular GI normal to inspection, nondistended, normoactive bowel sounds, soft to palpation, non-tender and non-distended Extremity no clubbing, cyanosis or edema Skin no rashes or lesions noted General Skin Exam: no breakdown Neuro CN's II-XII intact bilaterally, moves all extremities, no focal motor deficits and no sensory deficits noted Sensorium / Orientation: awake Speech: speech normal Psych Psych Narrative: Patient is lethargic and awake Mood & Affect: flat affect Charges/Coding Procedures Hospitalists Procedures: [id number] [facility]
[2022-06-08] MEDS: Insulin Glargine-YFGN 100 UNIT/ML Pen 10 UNIT SC (11:38)
[2022-06-08 12:05] LABS: Bedside Glucose 173 mg/dL (74-106)
--- NOTE | 2022-06-08 12:40 | PCM.PN.HOSP ---
Subjective Subjective No specific issues overnight. Patient still remains hypotensive and on Levophed at 8 mics. Heart rates have improved some. Hemoglobin has remained stable. Patient out of bed and into a chair reluctantly. Discussed with her the importance of mobility and getting out of bed to improve her lung function and overall functional status. Objective Data Objective Data Vital Signs: Vital Signs Temp Pulse Resp BP Pulse Ox O2 Del Method O2 Flow Rate 98.6 F 102 H 22 H 113/73 96 Nasal Cannula 2 06/08/22 12:00 06/08/22 12:00 06/08/22 12:00 06/08/22 12:00 06/08/22 12:00 06/08/22 12:00 06/08/22 12:00 FiO2 3 06/07/22 06:00 Oxygen Flow Rate (L/min) 2 Oxygen Delivery Method Nasal Cannula Weight: 60.7 kg Body Mass Index (BMI) 20.3 Intake & Output: Intake and Output for Last 24 Hours 06/06/22 06/07/22 06/08/22 23:59 23:59 23:59 Intake Total 2326.14 / 2333.17 2423.33 / 2425.68 1142.22 / 1142.22 Output Total 450 / 575 2570 / 2570 635 / 635 Balance 1876.14 / 1758.17 -146.67 / -144.32 507.22 / 507.22 Medical Nutrition Assessment Dietitian: Malnutrition Criteria Met Start: 06/07/22 11:00 Freq: Status: Active Protocol: Document 06/07/22 11:00 (Rec: 06/07/22 11:00 [id number]) Nutrition Malnutrition Evidence of Malnutrition Exists Yes Malnutrition (severe): Acute Illness/Injury Evidenced By Suboptimal Energy Intake ( Severe),Weight Loss (Severe), Physical Changes (Moderate) Clinical Problem Acute Disease or Injury Related Malnutrition Etiology (severe) related to pneumonia and GI bleed Signs/Symptoms as evidenced by 8.7% weight loss in <1 month, <50% PO intake for ~3 weeks, and fat/ muscle loss Status Active Problem Recommendation Dietitian Recommendations/Changes ADAT to Transitional diet when medically able. Ensure Clear 120mL 4x daily with medpass when diet advances to Clear Liquid. Ensure Pudding 1x daily and Magic Cup 1x daily when diet advances >Clear Liquid diet. Lab / Micro Data Result Diagrams: 06/08/22 04:50 06/08/22 04:50 Labs: Laboratory Results - last 24 hr 06/07/22 17:24: POC Glucose 160 H 06/07/22 23:24: POC Glucose 138 H 06/08/22 04:50: WBC 23.4 H, RBC 4.20, Hgb 11.9 L, Hct 35.7 L, MCV 85.0, MCH 28.3, MCHC 33.3, RDW Std Deviation 59.1 H, RDW Coeff of Palak 19.2 H, Plt Count 337, MPV 9.3, Neut % (Auto) Not Reportable, Absolute Neuts (auto) 18.2 H, Absolute Lymphs (auto) 0.23 L, Total Counted 100, Neutrophils % (Manual) 71 H, Band Neutrophils % 7 H, Lymphocytes % (Manual) 1 L, Monocytes % (Manual) 3, Eosinophils % (Manual) 11 H, Myelocytes % 6 H, Promyelocytes % 1 H, Diff Path Review February, Platelet Estimate ADEQUATE, Anisocytosis 2+ 06/08/22 04:50: Sodium 131 L, Potassium 3.5, Chloride 98, Carbon Dioxide 24.0, Anion Gap 9, BUN 25 H, Creatinine 0.58, Estim Creat Clear Calc 50.16, Est GFR (MDRD) Af Amer 133, Est GFR (MDRD) Non-Af 110, BUN/Creatinine Ratio 43.5 H, Glucose 183 H, Calcium 6.9 L, Total Bilirubin 0.60, AST 35, ALT 32, Alkaline Phosphatase 101, Total Protein 5.6 L, Albumin 1.5 L, Globulin 4.1, Albumin/Globulin Ratio 0.4 L 06/08/22 05:38: POC Glucose 200 H 06/08/22 06:55: Cortisol 45.90 H 06/08/22 11:37: POC Glucose 173 H Micro: Microbiology 06/06/22 14:42 Blood Culture (Wb) - Right Wrist Blood Culture - Preliminary No growth in 48 hours. 06/06/22 15:10 Blood Culture (Wb) - Right Wrist Blood Culture - Preliminary No growth in 48 hours. 06/06/22 16:30 Urine Catheter - [place] Urine Culture - Final Enterobacter aerogenes Rhythm Strip Rhythm Strip: A-fib Rate: 98 Ectopy: None Physical Exam Const alert, oriented x3 and no apparent distress Constitutional Narrative: Older, debilitated, white female in a chair at the bedside, appears much older than stated age, nasal cannula in oropharynx for oxygen supplementation, patient appears ill General Appearance: well developed HEENT normocephalic and head/scalp atraumatic HEENT Narrative: Oropharynx is significantly dry, oxygen is in oropharynx via nasal cannula at 2 L Eyes PERRL, EOMs intact bilaterally and conjunctivae normal Neck no lymphadenopathy, supple, no JVD and thyroid normal Neck Narrative: Left internal jugular venous line was in place-clean and dry General: trachea midline Resp Resp Narrative: Scattered rhonchi and crackles, no wheeze, cough is coarse and bronchial sounding but less so than yesterday, currently on 2 L nasal cannula Auscultation: crackles and rhonchi; Negative for rales or wheezes Cardio S1 normal heart sound, S2 normal heart sound, no murmurs, no rub, no gallops, no clicks and no JVD Cardio Narrative: Mildly tachycardic with irregular regular rhythm GI normal to inspection, nondistended, normoactive bowel sounds, soft to palpation, non-tender and non-distended; Negative for hepatosplenomegaly Extremity no clubbing, cyanosis or edema Extremity Narrative: Trace bilateral lower extremity edema, 2+ pedal pulses, no cyanosis or clubbing Skin no rashes or lesions noted, skin turgor normal, no jaundice, no petechiae and no mottling Skin Narrative: Pale skin with scattered ecchymosis, left IJ in place-dressing is clean dry and intact General Skin Exam: no breakdown Neuro oriented x3, moves all extremities and no focal motor deficits Neuro Narrative: Marked generalized weakness, no focal deficits Sensorium / Orientation: awake Assessment & Plan Assessment/Plan (1) Acute upper gastrointestinal bleeding: (2) Hemorrhagic shock: (3) Acute respiratory failure with hypoxia: (4) Dehydration: (5) Hyponatremia: PLAN: Plan Hemorrhagic shock secondary to upper GI bleed -Hemoglobin on presentation was 6.1--> given 3 units of packed red blood cells with repeat hemoglobin of 11 this morning -Continue to hold anticoagulation -Patient remains on low-dose Levophed at 8 mics -Wean as able -Continue Protonix and octreotide drip per gastroenterology -Plan is for EGD once patient is hemodynamically stable -Diet per GI Acute hypoxic respiratory failure -Patient with persistent bilateral interstitial infiltrates -Aspergillus grew on previous respiratory culture--> discussed with pulmonary medicine -Check beta-2 glycoprotein -Check galactomannan -Repeat blood cultures specifically for fungal cultures -Start voriconazole 6 mg/kg twice daily for 1 day, then 4 mg/kg twice daily -Consult infectious disease -Recent COVID-19 and Legionella pneumonia -Treatment has been completed for these -Continue empiric antibiotics for now with leukocytosis -Lasix 20 mg IV push x1 dose given today to see if we can improve oxygen status -Patient was on 3 to 4 L at discharge from 05/31/2022--> now weaned to 2 L -White count is trending down -Pulmonary medicine following and appreciate input Hyponatremia -Remained stable at 131 -120 on admission -Patient appears to be chronically hyponatremic with sodium levels between 130 and 135 at baseline -Repeat BMP in a.m. Chronic atrial fibrillation -Heart rate is starting to trend up -On Cardizem at baseline which is currently being held secondary to blood pressure -As needed metoprolol available for heart rates greater than 120 -Hold anticoagulation secondary to GI bleed DM-2 -Continue home Lantus--> a.m. blood sugar 183 -Continue sliding scale -Accu-Cheks -Diabetic diet when p.o. is reinitiated -Hold home metformin Hypocalcemia -Serum calcium 6.9 however when corrected for albumin is normalized Hyperlipidemia -If respiratory status remains stable will reinitiate tomorrow Osteoporosis -Alendronate on hold -Restart on discharge DVT prophylaxis -SCDs -No chemoprophylaxis secondary to GI bleed CODE STATUS -Full code Charges/Coding Visit Charges Inpatient E&M: 64895 Subs Hosp L3
[2022-06-08] MEDS: Nystatin Powder 15gm Bottle 1 APPLIC TOPICAL ×2 (16:55→21:42)
[2022-06-08 17:25] LABS: Bedside Glucose 163 mg/dL (74-106)
[2022-06-08] MEDS: 0.9% Saline Lock 10 ML Syringe IV (18:40)
--- NOTE | 2022-06-08 21:01 | PN_ITS ---
Subjective Subjective Patient has been up and out of bed and is tolerating a diet. She denies any abdominal pain. She has not had any signs or symptoms of GI bleeding. She is in good spirits today. Objective Data Objective Data Vital Signs: Vital Signs Temp Pulse Resp BP Pulse Ox O2 Del Method O2 Flow Rate 98.7 F 110 H 27 H 90/55 L 95 Nasal Cannula 2 06/08/22 20:00 06/08/22 20:00 06/08/22 20:00 06/08/22 20:00 06/08/22 20:00 06/08/22 20:00 06/08/22 20:00 FiO2 3 06/07/22 06:00 Oxygen Flow Rate (L/min) 2 Oxygen Delivery Method Nasal Cannula Weight: 133 lb 13.129 oz Body Mass Index (BMI) 20.3 Intake & Output: Intake and Output for Last 24 Hours 06/06/22 06/07/22 06/08/22 23:59 23:59 23:59 Intake Total 2326.14 / 2333.17 2423.33 / 2425.68 1679.52 / 1679.52 Output Total 450 / 575 2570 / 2570 960 / 960 Balance 1876.14 / 1758.17 -146.67 / -144.32 719.52 / 719.52 Medical Nutrition Assessment Dietitian: Malnutrition Criteria Met Start: 06/07/22 11:00 Freq: Status: Active Protocol: Document 06/07/22 11:00 (Rec: 06/07/22 11:00 [id number]) Nutrition Malnutrition Evidence of Malnutrition Exists Yes Malnutrition (severe): Acute Illness/Injury Evidenced By Suboptimal Energy Intake ( Severe),Weight Loss (Severe), Physical Changes (Moderate) Clinical Problem Acute Disease or Injury Related Malnutrition Etiology (severe) related to pneumonia and GI bleed Signs/Symptoms as evidenced by 8.7% weight loss in <1 month, <50% PO intake for ~3 weeks, and fat/ muscle loss Status Active Problem Recommendation Dietitian Recommendations/Changes ADAT to Transitional diet when medically able. Ensure Clear 120mL 4x daily with medpass when diet advances to Clear Liquid. Ensure Pudding 1x daily and Magic Cup 1x daily when diet advances >Clear Liquid diet. Lab / Micro Data Result Diagrams: 06/08/22 04:50 06/08/22 04:50 Labs: Laboratory Results - last 24 hr 06/07/22 23:24: POC Glucose 138 H 06/08/22 04:50: WBC 23.4 H, RBC 4.20, Hgb 11.9 L, Hct 35.7 L, MCV 85.0, MCH 28.3, MCHC 33.3, RDW Std Deviation 59.1 H, RDW Coeff of Palak 19.2 H, Plt Count 337, MPV 9.3, Neut % (Auto) Not Reportable, Absolute Neuts (auto) 18.2 H, Absolute Lymphs (auto) 0.23 L, Total Counted 100, Neutrophils % (Manual) 71 H, Band Neutrophils % 7 H, Lymphocytes % (Manual) 1 L, Monocytes % (Manual) 3, Eosinophils % (Manual) 11 H, Myelocytes % 6 H, Promyelocytes % 1 H, Diff Path Review February, Platelet Estimate ADEQUATE, Anisocytosis 2+ 06/08/22 04:50: Sodium 131 L, Potassium 3.5, Chloride 98, Carbon Dioxide 24.0, Anion Gap 9, BUN 25 H, Creatinine 0.58, Estim Creat Clear Calc 50.16, Est GFR (MDRD) Af Amer 133, Est GFR (MDRD) Non-Af 110, BUN/Creatinine Ratio 43.5 H, G lucose 183 H, Calcium 6.9 L, Total Bilirubin 0.60, AST 35, ALT 32, Alkaline Phosphatase 101, Total Protein 5.6 L, Albumin 1.5 L, Globulin 4.1, Albumin/Globulin Ratio 0.4 L 06/08/22 05:38: POC Glucose 200 H 06/08/22 06:55: Cortisol 45.90 H 06/08/22 11:37: POC Glucose 173 H 06/08/22 17:01: POC Glucose 163 H Micro: Microbiology 06/06/22 14:42 Blood Culture (Wb) - Right Wrist Blood Culture - Preliminary No growth in 48 hours. 06/06/22 15:10 Blood Culture (Wb) - Right Wrist Blood Culture - Preliminary No growth in 48 hours. 06/06/22 16:30 Urine Catheter - [place] Urine Culture - Final Enterobacter aerogenes Rhythm Strip Rhythm Strip: A-fib Rate: 98 Ectopy: None Physical Exam Const alert, oriented x3 and no apparent distress Constitutional Narrative: Older, debilitated, white female in a chair at the bedside, appears much older than stated age, nasal cannula in oropharynx for oxygen supplementation, patient appears ill General Appearance: well developed HEENT normocephalic and head/scalp atraumatic HEENT Narrative: Oropharynx is significantly dry, oxygen is in oropharynx via nasal cannula at 2 L Eyes PERRL, EOMs intact bilaterally and conjunctivae normal Neck no lymphadenopathy, supple, no JVD and thyroid normal Neck Narrative: Left internal jugular venous line was in place-clean and dry General: trachea midline Resp Resp Narrative: Scattered rhonchi and crackles, no wheeze, cough is coarse and bronchial sounding but less so than yesterday, currently on 2 L nasal cannula Auscultation: crackles and rhonchi; Negative for rales or wheezes Cardio S1 normal heart sound, S2 normal heart sound, no murmurs, no rub, no gallops, no clicks and no JVD Cardio Narrative: Mildly tachycardic with irregular regular rhythm GI normal to inspection, nondistended, normoactive bowel sounds, soft to palpation, non-tender and non-distended; Negative for hepatosplenomegaly Extremity no clubbing, cyanosis or edema Extremity Narrative: Trace bilateral lower extremity edema, 2+ pedal pulses, no cyanosis or clubbing Skin no rashes or lesions noted, skin turgor normal, no jaundice, no petechiae and no mottling Skin Narrative: Pale skin with scattered ecchymosis, left IJ in place-dressing is clean dry and intact General Skin Exam: no breakdown Neuro oriented x3, moves all extremities and no focal motor deficits Neuro Narrative: Marked generalized weakness, no focal deficits Sensorium / Orientation: awake Assessment & Plan Assessment/Plan (1) Acute upper gastrointestinal bleeding: PLAN: Her BUN to creatinine ratio is improving and her hemoglobin seems to be stable. That is consistent with a resolving upper GI bleed. I will stop her octreotide and she will continue on a PPI drip. If it continues to be stable past 72 hours then she can be switched to IV Protonix 40 mg every 12 hours. She will need upper endoscopy when medically stable. Charges/Coding Visit Charges Inpatient E&M: 51969 Subs Hosp L2
[2022-06-08 22:20] LABS: Bedside Glucose 159 mg/dL (74-106)
[2022-06-09] VITALS (51 sets, daily range): BP systolic 91–125; BP diastolic 45–70; PULSE 65–113; RESP 17–29; TEMP 36.8–37.2; O2SAT 90–100
[2022-06-09 04:39] LABS: Hematocrit 31.1 % (37-47); Hemoglobin 10.2 g/dL (12.0-15.0); Mean Corp Hgb Conc 32.8 g/dL (32-36); Mean Corpuscular Hgb 28.2 pg (27.0-32.0); Mean Corpuscular Volume 85.9 fL (81-99); Mean Platelet Vol. 9.1 fl (6.2-12.0); POSITIVE COUNT YES; POSITIVE MORPHOLOGY YES; Platelet Count 266 K/mm3 (150-450); RBC Distribution Width CV 18.9 % (11.6-14.6); RBC Distribution Width SD 59.5 fl (35.1-43.9); Red Blood Count 3.62 M/mm3 (4.2-5.4); White Blood Count 16.2 K/mm3 (4.4-11.0)
[2022-06-09 04:41] LABS: Differential Indicated MANUAL DIFF
[2022-06-09 04:56] LABS: Anisocytosis 2+; Platelet Estimate ADEQUATE (ADEQ)
[2022-06-09 04:58] LABS: Absolute Neutrophil Count 11.7 X10^3/uL (2.0-7.7)
[2022-06-09 04:59] LABS: Absolute Lymphocyte Count 1.95 X10^3/uL (0.83-4.51); Eosinophil 11 % (0-5); Lymphocyte 12 % (19-41); Metamyelocyte 3 % (0-1); Monocyte 1 % (0-10); Myelocyte 1 % (0-0); Neutrophil-Segmented 72 % (47-70); Total Cells Counted 100 (MANUAL DIFF)
[2022-06-09 05:40] LABS: ALB/GLOB Ratio 0.4 RATIO (0.9-2.4); AST(SGOT) 23 U/L (15-37); Alanine Aminotransfer ALT/SGPT 26 U/L (13-56); Albumin, Serum 1.3 g/dL (3.2-5.0); Alkaline Phosphatase 77 U/L (45-117); Anion Gap 8 (5-15); BUN 15 mg/dL (7-18); BUN/Creat Ratio 37.3 RATIO (10-20); Calcium,Total 6.5 mg/dL (8.5-10.1); Chloride 100 mmol/L (98-107); EST Glomerular Filtration Rate 167 mL/min (>60); Est Glom Filt Rate - Afr Amer 202 mL/min (>60); Estimated Creatinine Clearance 50.16 ml/min; Globulin 3.6 g/dL (2.2-4.2); Glucose 134 mg/dL (74-106); Magnesium 1.5 mg/dL (1.6-2.6); Phosphorus 1.2 mg/dL (2.5-4.9); Potassium 2.9 mmol/L (3.5-5.1); Protein, Total 4.9 g/dL (6.4-8.2); Sodium Level 134 mmol/L (136-145)
[2022-06-09] MEDS: Menthol/Lanolin/Calamine/Znox 113 GM Tube 1 APPLIC TOPICAL ×3 (06:33→21:43)
[2022-06-09] MEDS: Nystatin Powder 15gm Bottle 1 APPLIC TOPICAL ×3 (06:33→21:42)
--- NOTE | 2022-06-09 06:39 | PCM.PN.INT ---
Assessment & Plan Assessment/Plan (1) Hemorrhagic shock: PLAN: Plan RECOMMENDATIONS: 1. Continue empiric antimicrobials along with antifungal therapy, pending infectious diseases consultation. 2. Continue PPI therapy as ordered. 3. Continue to monitor blood counts and transfuse for hemoglobin greater than 7 g/dL. 4. Aggressive electrolyte repletion. 5. Continue to hold systemic anticoagulation. 6. Start scheduled midodrine. 7. Continue to wean supplemental oxygen as tolerated for saturations greater than 90%. IMPRESSIONS: 1. Hemorrhagic shock The patient presented to the hospital after recently being admitted with COVID-19 pneumonia with acute blood loss anemia and associated lethargy and weakness. There is concern for upper GI bleed as the source for her anemia. However, the patient has been too unstable to proceed with endoscopy. She has been transfused blood products and will remain on vasopressor support to maintain a mean arterial pressure at or above 65 mmHg. Continue to monitor blood counts and transfuse if hemoglobin drops below 7 g/dL. The patient will be started on scheduled midodrine today as well. Continue PPI therapy as ordered. Timing for endoscopic evaluation per gastroenterology. 2. Acute hypoxemic respiratory failure The patient has been on supplemental oxygen following her discharge from the hospital recently for COVID-19 pneumonia. Her hospital course was complicated by Legionella pneumonia. 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 Accordingly, in light of her clinical decompensation, the patient was started on voriconazole. Infectious diseases consultation is pending. Continue to wean supplemental oxygen to maintain saturations at or above 90%. Leukocytosis is improving. 3. Chronic atrial fibrillation on systemic anticoagulation In light of the patient's presenting anemia, plan to continue to hold Eliquis. In addition, continue to hold Cardizem over concerns for hypotension. 4. Hypokalemia/hypophosphatemia/hypomagnesemia Aggressive electrolyte repletion as ordered. Recheck levels in the morning. 5. Recent COVID-19 hospitalization/diabetes mellitus/hyperlipidemia/GERD Complicates care, management, recovery and prognosis. Continue PPI therapy as ordered. TIME: 35 minutes of critical care time, independent of procedures, was spent addressing the patient's hemorrhagic shock, acute hypoxemic respiratory failure, atrial fibrillation, review of all data and collaboration with the care team. Subjective Subjective The patient was seen and examined at the bedside this morning. Events from the last 24 hours have been reviewed. The patient is currently afebrile and maintaining hemodynamic stability on Levophed at 7 mcg/min. Oxygenation status is stable on 2 L/min via nasal cannula. The patient converted from atrial fibrillation to normal sinus rhythm sometime around midnight. Her Levophed requirement tends to increase overnight when she is sleeping. The patient is currently documented to be overall net +2.6 L for the hospitalization. White count has improved to 16,000. Potassium is low at 2.9. Magnesium is low at 1.5 with a phosphorus of 1.2. Objective Data Objective Data The patient's most recent lab work, culture data and imaging studies have all been personally reviewed. Surface echocardiogram from May 2022 demonstrated normal LV size and function with an ejection fraction of 60%. Aspergillus fumigatus was isolated from sputum dated May 26. Aspergillus antibodies are pending. Vital Signs: Vital Signs Temp Pulse Resp BP Pulse Ox O2 Del Method O2 Flow Rate 98.2 F 74 18 125/62 H 97 Nasal Cannula 2 06/09/22 05:00 06/09/22 05:00 06/09/22 05:00 06/09/22 05:00 06/09/22 05:00 06/09/22 05:00 06/09/22 05:00 FiO2 3 06/07/22 06:00 Oxygen Flow Rate (L/min) 2 Oxygen Delivery Method Nasal Cannula Weight: 140 lb Body Mass Index (BMI) 20.3 Intake & Output: Intake and Output for Last 24 Hours 06/07/22 06/08/22 06/09/22 23:59 23:59 23:59 Intake Total 2423.33 / 2425.68 1762.00 / 1769.05 449.84 / 449.84 Output Total 2570 / 2570 1070 / 1180 270 / 270 Balance -146.67 / -144.32 692.00 / 589.05 179.84 / 179.84 Medical Nutrition Assessment Dietitian: Malnutrition Criteria Met Start: 06/07/22 11:00 Freq: Status: Active Protocol: Document 06/07/22 11:00 NIRAV (Rec: 06/07/22 11:00 [id number]) Nutrition Malnutrition Evidence of Malnutrition Exists Yes Malnutrition (severe): Acute Illness/Injury Evidenced By Suboptimal Energy Intake ( Severe),Weight Loss (Severe), Physical Changes (Moderate) Clinical Problem Acute Disease or Injury Related Malnutrition Etiology (severe) related to pneumonia and GI bleed Signs/Symptoms as evidenced by 8.7% weight loss in <1 month, <50% PO intake for ~3 weeks, and fat/ muscle loss Status Active Problem Recommendation Dietitian Recommendations/Changes ADAT to Transitional diet when medically able. Ensure Clear 120mL 4x daily with medpass when diet advances to Clear Liquid. Ensure Pudding 1x daily and Magic Cup 1x daily when diet advances >Clear Liquid diet. Lab / Micro Data Attestation: I reviewed the patient's lab results. Result Diagrams: 06/09/22 04:34 06/09/22 04:34 Labs: Laboratory Results - last 24 hr 06/08/22 06:55: Cortisol 45.90 H 06/08/22 11:37: POC Glucose 173 H 06/08/22 17:01: POC Glucose 163 H 06/08/22 21:47: POC Glucose 159 H 06/09/22 04:34: WBC 16.2 H, RBC 3.62 L, Hgb 10.2 L, Hct 31.1 L, MCV 85.9, MCH 28.2, MCHC 32.8, RDW Std Deviation 59.5 H, RDW Coeff of Palak 18.9 H, Plt Count 266, MPV 9.1, Neut % (Auto) Not Reportable, Absolute Neuts (auto) 11.7 H, Absolute Lymphs (auto) 1.95, Total Counted 100, Neutrophils % (Manual) 72 H, Lymphocytes % (Manual) 12 L, Monocytes % (Manual) 1, Eosinophils % (Manual) 11 H, Metamyelocytes % 3 H, Myelocytes % 1 H, Diff Path Review May foll, Platelet Estimate ADEQUATE, Anisocytosis 2+ 06/09/22 04:34: Sodium 134 L, Potassium 2.9 L, Chloride 100, Carbon Dioxide 26.0, Anion Gap 8, BUN 15, Creatinine 0.40 L, Estim Creat Clear Calc 50.16, Est GFR (MDRD) Af Amer 202, Est GFR (MDRD) Non-Af 167, BUN/Creatinine Ratio 37.3 H, Glucose 134 H, Calcium 6.5 L*, Phosphorus 1.2 L, Magnesium 1.5 L, Total Bilirubin 0.30, AST 23, ALT 26, Alkaline Phosphatase 77, Total Protein 4.9 L, Albumin 1.3 L, Globulin 3.6, Albumin/Globulin Ratio 0.4 L Micro: Microbiology 06/06/22 14:42 Blood Culture (Wb) - Right Wrist Blood Culture - Preliminary No growth in 48 hours. 06/06/22 15:10 Blood Culture (Wb) - Right Wrist Blood Culture - Preliminary No growth in 48 hours. 06/06/22 16:30 Urine Catheter - [place] Urine Culture - Final Enterobacter aerogenes Rhythm Strip Rhythm Strip: A-fib Rate: 98 Ectopy: None Physical Exam Const alert and no apparent distress General Appearance: cooperative and frail HEENT normocephalic and head/scalp atraumatic Eyes PERRL, EOMs intact bilaterally and conjunctivae normal Neck supple General: trachea midline Chest inspection of chest normal Resp Auscultation: rales; Negative for rhonchi or wheezes Cardio regular rate and regular rhythm GI normal to inspection, nondistended, normoactive bowel sounds Extremity no clubbing, cyanosis or edema Skin no rashes or lesions noted Neuro oriented x3, CN's II-XII intact bilaterally, moves all extremities and no focal motor deficits Psych cooperative and affect normal Charges/Coding Procedures Hospitalists Procedures: [id number] Critial Care 1st Hr
[2022-06-09 06:56] LABS: Bedside Glucose 113 mg/dL (74-106)
[2022-06-09] MEDS: Ipratropium/Albuterol Sulfate 3 ML AMPUL.NEB INHALATION ×4 (07:08→20:10)
[2022-06-09] MEDS: Potassium Chloride 20mEq/100mL 20 MEQ/100 ML IV.SOLN. 50 MEQ IV BOLUS ×2 (08:02→10:47)
[2022-06-09] MEDS: Potassium Chloride Oral Tablet 20 MEQ 40 MEQ PO (08:27)
--- NOTE | 2022-06-09 09:21 | CASEMGMT ---
HEMAL spoke with Jessica and patient will have to be 21 days out from original positive test and have 2 negatives. Jessica will look over patient and get back to SW. After interdisciplinary rounds SW spoke with patient and her daughters. Introduced self and role at [facility]. SW confirmed they do not want patient to return to [facility] and they want TCU. SW let them know patient is 21 days out from her original positive test and she has 2 negatives. SW let them know TCU will review patient's chart and let SW know. SW will updated them as soon as SW has an update. Erin Smith [employer] MICHELLE
--- NOTE | 2022-06-09 10:47 | CON.PCM.ID_ITS ---
Assessment & Plan Assessment/Plan (1) Hemorrhagic shock: PLAN: On empiric meropenem. On vori for aspergillus (+) sputum cx. Aspergillus Abs pending. Overall improving, wbc better, hgb improved. GI following. Ucx with less than 1k enterobacter, likely can stop nallely soon. Will follow, thank you (2) Pneumonia: HPI Consult Data Date of Consult: 06/09/22 HPI Narrative Reason for Consultation: septic shock HPI Narrative: CARMEN MILLER, is a 72 F who presented 06/06 from [facility] with dyspnea, confusion, maroon colored stool. Recent admit with covid and legionella, discharged 05/31. Mild cough, no hemoptysis. Admitted to icu with GI bleed, shock, started on meropenem and voriconazole. Feeling better, family at bedside, no abd pain, no fever. Full ROS performed and neg except as noted above. [facility] Medical History COVID-19 Diabetes Frequent urinary tract infections GERD (gastroesophageal reflux disease) High cholesterol Osteoarthritis Paroxysmal A-fib Home Medications alendronate 70 mg tablet 70 mg PO MO 05/18/22 [History Last Taken 06/02/22] atorvastatin 20 mg tablet 20 mg PO QHS 05/18/22 [History Last Taken 06/05/22] metformin 500 mg tablet 500 mg PO DAILY 05/18/22 [History Last Taken 06/06/22] methenamine hippurate 1 gram tablet 1 g PO QHS 05/18/22 [History Last Taken 06/05/22] ondansetron HCl 4 mg tablet 4 mg PO TID PRN PRN Nausea 05/18/22 [History Last Taken 06/01/22] apixaban 5 mg tablet (Eliquis) 5 mg PO BID #0 tabs 05/31/22 [Rx Last Taken 06/06/22] insulin glargine-yfgn 100 unit/mL (3 mL) subcutaneous pen 10 unit (0.1 mL) subcut DAILY #0 mL 05/31/22 [Rx Last Taken 06/05/22] ipratropium 0.5 mg-albuterol 3 mg (2.5 mg base)/3 mL nebulization soln 3 ml inhalation 4X/DAY #0 mL 05/31/22 [Rx Last Taken 06/06/22] sodium chloride 0.65 % nasal spray aerosol (Deep Sea Nasal) 1 spray NASAL BID #0 mL 05/31/22 [Rx Last Taken 06/06/22] insulin lispro 100 unit/mL subcutaneous pen See Protocol subcut TID 06/03/22 [History Last Taken 06/06/22] diltiazem HCl 120 mg capsule,extended release 24 hr 120 mg PO BID 06/06/22 [History Last Taken 06/06/22] omeprazole 20 mg capsule,delayed release 40 mg PO DAILY GERD 06/06/22 [History Last Taken 06/06/22] Allergy/AdvReac Type Severity Reaction Status Date / Time No Known Allergies Allergy Verified 06/06/22 14:17 Social History Smoking Status: Current every day smoker tobacco type: cigarettes Physical Exam Const alert, oriented x3 and no apparent distress General Appearance: cooperative HEENT normocephalic and head/scalp atraumatic Eyes PERRL and EOMs intact bilaterally Neck supple and No nodes Resp Resp Narrative: Some R sided wheezing Cardio regular rate and regular rhythm GI soft to palpation, non-tender and non-distended Extremity General Extremity: Negative for edema Skin no rashes or lesions noted Neuro CN's II-XII intact bilaterally Medical Records Data Medical Nutrition Assessment Dietitian: Malnutrition Criteria Met Start: 06/07/22 11:00 Freq: Status: Active Protocol: Document 06/09/22 09:51 AMANDA (Rec: 06/09/22 09:51 [facility] [id number]) Nutrition Malnutrition Evidence of Malnutrition Exists Yes Malnutrition (severe): Acute Illness/Injury Evidenced By Suboptimal Energy Intake ( Severe),Weight Loss (Severe), Physical Changes (Moderate) Clinical Problem Acute Disease or Injury Related Malnutrition Etiology (severe) related to pneumonia and GI bleed Signs/Symptoms as evidenced by 8.7% weight loss in <1 month well logging captain mud analysis, <50% PO intake for ~3 weeks well logging captain mud analysis, and fat/muscle loss Status Active Problem Recommendation Dietitian Recommendations/Changes Advance diet as tolerated to Transitional diet when medically able. Ensure Clear 120mL with meals while on Clear Liquid diet and then provide CIB, Ensure Pudding, or Magic Cup with meals when diet advances > Clear Liquid diet. Lab / Micro Data Attestation: I reviewed the patient's lab results. Result Diagrams: 06/09/22 04:34 06/09/22 04:34 Labs: Laboratory Results - last 24 hr 06/06/22 16:23: Crossmatch See Detail 06/08/22 06:55: Cortisol 45.90 H 06/08/22 11:37: POC Glucose 173 H 06/08/22 17:01: POC Glucose 163 H 06/08/22 21:47: POC Glucose 159 H 06/09/22 04:34: WBC 16.2 H, RBC 3.62 L, Hgb 10.2 L, Hct 31.1 L, MCV 85.9, MCH 28.2, MCHC 32.8, RDW Std Deviation 59.5 H, RDW Coeff of Palak 18.9 H, Plt Count 266, MPV 9.1, Neut % (Auto) Not Reportable, Absolute Neuts (auto) 11.7 H, Absolute Lymphs (auto) 1.95, Total Counted 100, Neutrophils % (Manual) 72 H, Lymphocytes % (Manual) 12 L, Monocytes % (Manual) 1, Eosinophils % (Manual) 11 H , Metamyelocytes % 3 H, Myelocytes % 1 H, Diff Path Review February, Platelet Estimate ADEQUATE, Anisocytosis 2+ 06/09/22 04:34: Sodium 134 L, Potassium 2.9 L, Chloride 100, Carbon Dioxide 26.0, Anion Gap 8, BUN 15, Creatinine 0.40 L, Estim Creat Clear Calc 50.16, Est GFR (MDRD) Af Amer 202, Est GFR (MDRD) Non-Af 167, BUN/Creatinine Ratio 37.3 H, Glucose 134 H, Calcium 6.5 L*, Phosphorus 1.2 L, Magnesium 1.5 L, Total Bilirubin 0.30, AST 23, ALT 26, Alkaline Phosphatase 77, Total Protein 4.9 L, Albumin 1.3 L, Globulin 3.6, Albumin/Globulin Ratio 0.4 L 06/09/22 06:35: POC Glucose 113 H Micro: Microbiology 06/06/22 14:42 Blood Culture (Wb) - Right Wrist Blood Culture - Preliminary No growth in 48 hours. 06/06/22 15:10 Blood Culture (Wb) - Right Wrist Blood Culture - Preliminary No growth in 48 hours. 06/06/22 16:30 Urine Catheter - [place] Urine Culture - Final Enterobacter aerogenes Rhythm Strip Rhythm Strip: A-fib Rate: 98 Ectopy: None
--- NOTE | 2022-06-09 10:57 | CASEMGMT ---
SW was informed TCU can accept patient. SW went to notify patient, but she was sleeping and there was no family present. SW called patient's daughter Noni and left her a voice mail letting her know TCU can accept patient when she is medically ready. Plan: d/c to [facility] TCU when medically ready. Erin Smith MSW MICHELLE
[2022-06-09] MEDS: Insulin Glargine-YFGN 100 UNIT/ML Pen 10 UNIT SC (12:18)
[2022-06-09] MEDS: Insulin Lispro 100 UNIT/ML INSULN.PEN SC (12:18)
[2022-06-09] MEDS: Midodrine HCl 5 MG Tablet 10 MG PO ×2 (12:19→17:23)
[2022-06-09 12:41] LABS: Bedside Glucose 165 mg/dL (74-106)
--- NOTE | 2022-06-09 12:59 | PCM.PN.HOSP ---
Subjective Subjective Clinically much better today. Still on Levophed which seems to be increased at night and trend down during the day. Currently on 5 mcg. White count is improving and patient states she is feeling much better. Objective Data Objective Data Vital Signs: Vital Signs Temp Pulse Resp BP Pulse Ox O2 Del Method O2 Flow Rate 98.6 F 85 25 H 107/62 98 Nasal Cannula 2 06/09/22 12:15 06/09/22 12:30 06/09/22 12:15 06/09/22 12:30 06/09/22 12:15 06/09/22 12:15 06/09/22 12:15 FiO2 3 06/07/22 06:00 Oxygen Flow Rate (L/min) 2 Oxygen Delivery Method Nasal Cannula Weight: 63.503 kg Body Mass Index (BMI) 20.3 Intake & Output: Intake and Output for Last 24 Hours 06/07/22 06/08/22 06/09/22 23:59 23:59 23:59 Intake Total 2423.33 / 2425.68 1762.00 / 1769.05 869.75 / 869.75 Output Total 2570 / 2570 1070 / 1180 495 / 495 Balance -146.67 / -144.32 692.00 / 589.05 374.75 / 374.75 Medical Nutrition Assessment Dietitian: Malnutrition Criteria Met Start: 06/07/22 11:00 Freq: Status: Active Protocol: Document 06/09/22 09:51 AMANDA (Rec: 06/09/22 09:51 AMANDA [id number]) Nutrition Malnutrition Evidence of Malnutrition Exists Yes Malnutrition (severe): Acute Illness/Injury Evidenced By Suboptimal Energy Intake ( Severe),Weight Loss (Severe), Physical Changes (Moderate) Clinical Problem Acute Disease or Injury Related Malnutrition Etiology (severe) related to pneumonia and GI bleed Signs/Symptoms as evidenced by 8.7% weight loss in <1 month bellhop service captain, <50% PO intake for ~3 weeks bellhop service captain, and fat/muscle loss Status Active Problem Recommendation Dietitian Recommendations/Changes Advance diet as tolerated to Transitional diet when medically able. Ensure Clear 120mL with meals while on Clear Liquid diet and then provide CIB, Ensure Pudding, or Magic Cup with meals when diet advances > Clear Liquid diet. Lab / Micro Data Result Diagrams: 06/09/22 04:34 06/09/22 04:34 Labs: Laboratory Results - last 24 hr 06/06/22 16:23: Crossmatch See Detail 06/08/22 17:01: POC Glucose 163 H 06/08/22 21:47: POC Glucose 159 H 06/09/22 04:34: WBC 16.2 H, RBC 3.62 L, Hgb 10.2 L, Hct 31.1 L, MCV 85.9, MCH 28.2, MCHC 32.8, RDW Std Deviation 59.5 H, RDW Coeff of Palak 18.9 H, Plt Count 266, MPV 9.1, Neut % (Auto) Not Reportable, Absolute Neuts (auto) 11.7 H, Absolute Lymphs (auto) 1.95, Total Counted 100, Neutrophils % (Manual) 72 H, Lymphocytes % (Manual) 12 L, Monocytes % (Manual) 1, Eosinophils % (Manual) 11 H, Metamyelocytes % 3 H, Myelocytes % 1 H, Diff Path Review February, Platelet Estimate ADEQUATE, Anisocytosis 2+ 06/09/22 04:34: Sodium 134 L, Potassium 2.9 L, Chloride 100, Carbon Dioxide 26.0, Anion Gap 8, BUN 15, Creatinine 0.40 L, Estim Creat Clear Calc 50.16, Est GFR (MDRD) Af Amer 202, Est GFR (MDRD) Non-Af 167, BUN/Creatinine Ratio 37.3 H, Glucose 134 H, Calcium 6.5 L*, Phosphorus 1.2 L, Magnesium 1.5 L, Total Bilirubin 0.30, AST 23, ALT 26, Alkaline Phosphatase 77, Total Protein 4.9 L, Albumin 1.3 L, Globulin 3.6, Albumin/Globulin Ratio 0.4 L 06/09/22 06:35: POC Glucose 113 H 06/09/22 12:17: POC Glucose 165 H Micro: Microbiology 06/06/22 14:42 Blood Culture (Wb) - Right Wrist Blood Culture - Preliminary No growth in 48 hours. 06/06/22 15:10 Blood Culture (Wb) - Right Wrist Blood Culture - Preliminary No growth in 48 hours. 06/06/22 16:30 Urine Catheter - [place] Urine Culture - Final Enterobacter aerogenes Rhythm Strip Rhythm Strip: A-fib Rate: 98 Ectopy: None Physical Exam Const alert, oriented x3 and no apparent distress Constitutional Narrative: Older, debilitated, white female sitting up in bed, appears much better today, still appears older than stated age, nasal cannula is in nares, does not appear toxic and clinically much improved General Appearance: well developed Orientation / Consciousness: awake HEENT normocephalic and head/scalp atraumatic HEENT Narrative: Mallampati 2-3, no thrush, dentition is fair for age Head and Scalp: normocephalic Neck no lymphadenopathy, supple, no JVD and thyroid normal Neck Narrative: Left internal jugular venous line was in place-clean and dry General: trachea midline Resp normal respiratory effort, no retractions and no use of accessory muscles Resp Narrative: Scattered coarse breath sounds however rhonchi and crackles have improved, no signs of respiratory distress and patient has been weaned to 2 L nasal cannula, mild tachypnea Auscultation: Negative for crackles, rales, rhonchi or wheezes Cardio regular rate, S1 normal heart sound, S2 normal heart sound, no murmurs, no rub, no gallops, no clicks and no JVD Cardio Narrative: Mildly tachycardic with irregular regular rhythm GI normal to inspection, nondistended, normoactive bowel sounds, soft to palpation, non-tender and non-distended; Negative for hepatosplenomegaly Extremity no clubbing, cyanosis or edema Extremity Narrative: Trace bilateral lower extremity edema, 2+ pedal pulses, no cyanosis or clubbing Skin Skin Narrative: Pale skin with scattered ecchymosis, left IJ in place-dressing is clean dry and intact Neuro oriented x3, moves all extremities and no focal motor deficits Neuro Narrative: Marked generalized weakness, no focal deficits Sensorium / Orientation: awake, alert, oriented to person, oriented to place and oriented to time Speech: speech normal Psych affect normal Psych Narrative: Appropriately interactive and pleasant Assessment & Plan Assessment/Plan (1) Acute upper gastrointestinal bleeding: (2) Hemorrhagic shock: (3) Acute respiratory failure with hypoxia: (4) Dehydration: (5) Hyponatremia: PLAN: Plan Hemorrhagic shock secondary to upper GI bleed -Hemoglobin on presentation was 6.1--> given 3 units of packed red blood cells with repeat hemoglobin of 11 this morning -Continue to hold anticoagulation -Patient remains on low-dose Levophed at 7 mics -Wean as able -Treated try DIP discontinued -We will continue Protonix drip and if patient remains stable will discontinue tomorrow -Plan is for EGD once patient is hemodynamically stable and off pressors -Diet per GI Acute hypoxic respiratory failure -Patient with persistent bilateral interstitial infiltrates -Aspergillus grew on previous respiratory culture--> discussed with pulmonary medicine -Pending beta-2 glycoprotein -Pending galactomannan -Pending blood cultures specifically for fungal cultures -Continue voriconazole 4 mg/kg twice daily -Infectious diseases following-appreciate input -Kasai ptosis has improved with the addition of voriconazole -Recent COVID-19 and Legionella pneumonia -Treatment has been completed for these -Continue empiric antibiotics for now with leukocytosis but per ID will likely stop meropenem soon -Patient was on 3 to 4 L at discharge from 05/31/2022--> now weaned to 2 L with oxygen saturation 95 to 98% -White count is trending down -Pulmonary medicine following and appreciate input Hyponatremia -Improved to 134 today -120 on admission -Patient appears to be chronically hyponatremic with sodium levels between 130 and 135 at baseline -Repeat BMP in a.m. Hypokalemia -Replaced -Recheck in a.m. Hypophosphatemia -Replace IV K-Phos -Recheck in a.m. Hypomagnesemia -2 grams magnesium given this morning -Recheck in a.m. Chronic atrial fibrillation -Heart rate better today -On Cardizem at baseline which is currently being held secondary to blood pressure -Restart when able and off pressors -Hold anticoagulation secondary to GI bleed DM-2 -Continue home Lantus--> a.m. blood sugar 134 -Continue sliding scale -Accu-Cheks -Diabetic diet when p.o. is reinitiated -Hold home metformin Hypocalcemia -Serum calcium 6.9 however when corrected for albumin is normalized Hyperlipidemia -If respiratory status remains stable will reinitiate tomorrow Osteoporosis -Alendronate on hold -Restart on discharge DVT prophylaxis -SCDs -No chemoprophylaxis secondary to GI bleed CODE STATUS -Full code Charges/Coding Visit Charges Inpatient E&M: 93290 Subs Hosp L2
--- NOTE | 2022-06-09 15:08 | CASEMGMT ---
HEMAL did talk with patient and let her know that [facility]CU can take her when she is medically ready. Patient thanked HEMAL for the update. Erin MARTINEZ
[2022-06-09 15:27] LABS: Hematocrit 30.9 % (37-47); Hemoglobin 10.3 g/dL (12.0-15.0)
[2022-06-09 15:41] LABS: Pathologist Review Reviewed
[2022-06-09 17:51] LABS: Bedside Glucose 104 mg/dL (74-106)
--- NOTE | 2022-06-09 18:13 | PN_ITS ---
Subjective Subjective Patient looks in good spirits and is feeling a lot better. Patient's daughter is at bedside. She still remains on pressor therapy. Objective Data Objective Data Vital Signs: Vital Signs Temp Pulse Resp BP Pulse Ox O2 Del Method O2 Flow Rate 98.9 F 79 24 H 102/51 L 98 Room Air 2 06/09/22 16:00 06/09/22 18:00 06/09/22 18:00 06/09/22 18:00 06/09/22 18:00 06/09/22 18:00 06/09/22 16:00 FiO2 3 06/07/22 06:00 Oxygen Flow Rate (L/min) 2 Oxygen Delivery Method Room Air Weight: 140 lb Body Mass Index (BMI) 20.3 Intake & Output: Intake and Output for Last 24 Hours 06/07/22 06/08/22 06/09/22 23:59 23:59 23:59 Intake Total 2423.33 / 2425.68 1762.00 / 1769.05 1593.73 / 1593.73 Output Total 2570 / 2570 1070 / 1180 695 / 695 Balance -146.67 / -144.32 692.00 / 589.05 898.73 / 898.73 Medical Nutrition Assessment Dietitian: Malnutrition Criteria Met Start: 06/07/22 1 1:00 Freq: Status: Active Protocol: Document 06/09/22 09:51 AMANDA (Rec: 06/09/22 09:51 AMANDA [id number]) Nutrition Malnutrition Evidence of Malnutrition Exists Yes Malnutrition (severe): Acute Illness/Injury Evidenced By Suboptimal Energy Intake ( Severe),Weight Loss (Severe), Physical Changes (Moderate) Clinical Problem Acute Disease or Injury Related Malnutrition Etiology (severe) related to pneumonia and GI bleed Signs/Symptoms as evidenced by 8.7% weight loss in <1 month bell captain, <50% PO intake for ~3 weeks bell captain, and fat/muscle loss Status Active Problem Recommendation Dietitian Recommendations/Changes Advance diet as tolerated to Transitional diet when medically able. Ensure Clear 120mL with meals while on Clear Liquid diet and then provide CIB, Ensure Pudding, or Magic Cup with meals when diet advances > Clear Liquid diet. Lab / Micro Data Result Diagrams: 06/09/22 15:10 06/09/22 04:34 Labs: Laboratory Results - last 24 hr 06/06/22 16:23: Crossmatch See Detail 06/07/22 05:35: Diff Path Review Reviewed 06/08/22 21:47: POC Glucose 159 H 06/09/22 04:34: WBC 16.2 H, RBC 3.62 L, Hgb 10.2 L, Hct 31.1 L, MCV 85.9, MCH 28.2, MCHC 32.8, RDW Std Deviation 59.5 H, RDW Coeff of Palak 18.9 H, Plt Count 2 66, MPV 9.1, Neut % (Auto) Not Reportable, Absolute Neuts (auto) 11.7 H, Abso lute Lymphs (auto) 1.95, Total Counted 100, Neutrophils % (Manual) 72 H, Lymphocytes % (Manual) 12 L, Monocytes % (Manual) 1, Eosinophils % (Manual) 11 H , Metamyelocytes % 3 H, Myelocytes % 1 H, Diff Path Review May foll, Platelet Estimate ADEQUATE, Anisocytosis 2+ 06/09/22 04:34: Sodium 134 L, Potassium 2.9 L, Chloride 100, Carbon Dioxide 26.0, Anion Gap 8, BUN 15, Creatinine 0.40 L, Estim Creat Clear Calc 50.16, Est GFR (MDRD) Af Amer 202, Est GFR (MDRD) Non-Af 167, BUN/Creatinine Ratio 37.3 H, Glucose 134 H, Calcium 6.5 L*, Phosphorus 1.2 L, Magnesium 1.5 L, Total Bili monreal 0.30, AST 23, ALT 26, Alkaline Phosphatase 77, Total Protein 4.9 L, Albumin 1.3 L, Globulin 3.6, Albumin/Globulin Ratio 0.4 L 06/09/22 06:35: POC Glucose 113 H 06/09/22 12:17: POC Glucose 165 H 06/09/22 15:10: Hgb 10.3 L, Hct 30.9 L 06/09/22 17:21: POC Glucose 104 Micro: Microbiology 06/08/22 14:00 Sputum, Expectorated/Coughed Gram Stain - Final 06/08/22 14:00 Sputum, Expectorated/Coughed Respiratory Culture - Preliminary Gram positive cathie 06/06/22 14:42 Blood Culture (Wb) - Right Wrist Blood Culture - Preliminary No growth in 48 hours. 06/06/22 15:10 Blood Culture (Wb) - Right Wrist Blood Culture - Preliminary No growth in 48 hours. 06/06/22 16:30 Urine Catheter - [place] Urine Culture - Final Enterobacter aerogenes Rhythm Strip Rhythm Strip: A-fib Rate: 98 Ectopy: None Physical Exam Const alert, oriented x3 and no apparent distress Constitutional Narrative: clinically much improved General Appearance: well developed Orientation / Consciousness: awake HEENT normocephalic and head/scalp atraumatic HEENT Narrative: Mallampati 2-3, no thrush, dentition is fair for age Head and Scalp: normocephalic Neck no lymphadenopathy, supple, no JVD and thyroid normal Neck Narrative: Left internal jugular venous line was in place-clean and dry General: trachea midline Resp normal respiratory effort, no retractions and no use of accessory muscles Resp Narrative: Scattered coarse breath sounds however rhonchi and crackles have improved, no signs of respiratory distress and patient has been weaned to 2 L nasal cannula, mild tachypnea Auscultation: Negative for crackles, rales, rhonchi or wheezes Cardio regular rate, S1 normal heart sound, S2 normal heart sound, no murmurs, no rub, no gallops, no clicks and no JVD Cardio Narrative: Mildly tachycardic with irregular regular rhythm GI normal to inspection, nondistended, normoactive bowel sounds, soft to palpation, non-tender and non-distended; Negative for hepatosplenomegaly Extremity no clubbing, cyanosis or edema Extremity Narrative: Trace bilateral lower extremity edema, 2+ pedal pulses, no cyanosis or clubbing Skin Skin Narrative: Pale skin with scattered ecchymosis, left IJ in place-dressing is clean dry and intact Neuro oriented x3, moves all extremities and no focal motor deficits Neuro Narrative: Marked generalized weakness, no focal deficits Sensorium / Orientation: awake, alert, oriented to person, oriented to place and oriented to time Speech: speech normal Psych affect normal Psych Narrative: Appropriately interactive and pleasant Assessment & Plan Assessment/Plan (1) Acute blood loss anemia: PLAN: Acute blood loss anemia likely secondary to upper GI bleed. Continue PPI therapy. She can have a soft diet. Her octreotide has been off but she still remains on Protonix therapy. (2) Pneumonia: PLAN: Patient's white blood cell count is finally starting to decrease. She is looking a lot better as his her physical examination is a lot better. She did not seem to be any more respiratory distress. Hopefully she can get off of pressor therapy so she can tolerate sedation for an upper endoscopy. Charges/Coding Visit Charges Inpatient E&M: 94003 Subs Hosp L2
[2022-06-09] MEDS: Atorvastatin Calcium 20 MG Tablet PO (21:42)
[2022-06-09 22:20] LABS: Bedside Glucose 101 mg/dL (74-106)
[2022-06-10] VITALS (57 sets, daily range): BP systolic 86–114; BP diastolic 46–72; PULSE 66–88; RESP 16–28; TEMP 36.6–37.2; O2SAT 91–100
[2022-06-10 04:02] LABS: Absolute Lymphocyte Count 1.34 X10^3/uL (0.83-4.51); Absolute Neutrophil Count 11.3 X10^3/uL (2.0-7.7); Basophil# 0.07 X10^3/uL; Basophil% 0.4 % (0-1); Eosinophil# 1.73 X10^3/uL; Eosinophils% 11.1 % (0-5); Hemoglobin 9.6 g/dL (12.0-15.0); Lymphocyte # 1.34 X10^3/ul (0.83-4.51); Lymphocyte % 8.6 % (19-41); Mean Corpuscular Hgb 27.9 pg (27.0-32.0); Mean Corpuscular Volume 87.2 fL (81-99); Monocyte# 0.55 X10^3/uL; Monocyte% 3.5 % (0-10); NRBC Flagged by Analyzer 0 % (0-5); Neutrophil # 11.26 X10^3/uL (2.7-7.7); Neutrophil % 72.2 % (47-70); Platelet Count 264 K/mm3 (150-450); RBC Distribution Width CV 19.1 % (11.6-14.6); RBC Distribution Width SD 60.6 fl (35.1-43.9); Red Blood Count 3.44 M/mm3 (4.2-5.4); White Blood Count 15.6 K/mm3 (4.4-11.0)
[2022-06-10 04:20] LABS: Phosphorus 1.3 mg/dL (2.5-4.9)
[2022-06-10 04:22] LABS: Anion Gap 5 (5-15); BUN 11 mg/dL (7-18); Calcium,Total 6.4 mg/dL (8.5-10.1); Chloride 106 mmol/L (98-107); Creatinine, Serum 0.34 mg/dL (0.55-1.02); EST Glomerular Filtration Rate 199 mL/min (>60); Est Glom Filt Rate - Afr Amer 241 mL/min (>60); Estimated Creatinine Clearance 52.48 ml/min; Glucose 77 mg/dL (74-106); Magnesium 1.9 mg/dL (1.6-2.6); Potassium 3.8 mmol/L (3.5-5.1); Sodium Level 136 mmol/L (136-145)
[2022-06-10] MEDS: Menthol/Lanolin/Calamine/Znox 113 GM Tube 1 APPLIC TOPICAL (05:13)
[2022-06-10] MEDS: 0.9% Saline Lock 10 ML Syringe IV ×4 (05:13→21:47)
[2022-06-10] MEDS: Nystatin Powder 15gm Bottle 1 APPLIC TOPICAL ×3 (05:14→21:34)
[2022-06-10] MEDS: Ipratropium/Albuterol Sulfate 3 ML AMPUL.NEB INHALATION ×3 (07:03→19:35)
--- NOTE | 2022-06-10 07:08 | PN.CC_ITS ---
Assessment & Plan Assessment/Plan (1) Hemorrhagic shock: PLAN: Plan RECOMMENDATIONS: 1. Continue empiric antimicrobials along with antifungal therapy per ID recommendations. 2. Continue PPI therapy as ordered. 3. Continue to monitor blood counts and transfuse for hemoglobin greater than 7 g/dL. 4. Aggressive electrolyte repletion. 5. Continue to hold systemic anticoagulation. 6. Continue scheduled midodrine. 7. Additional IV fluid resuscitation today. 8. Continue to wean supplemental oxygen as tolerated for saturations greater than 90%. 9. Encourage incentive spirometer use and mobilize patient as tolerated. IMPRESSIONS: 1. Hemorrhagic shock The patient presented to the hospital after recently being admitted with COVID- 19 pneumonia with acute blood loss anemia and associated lethargy and weakness. There is concern for upper GI bleed as the source for her anemia. However, the patient has been too unstable to proceed with endoscopy. She has been transfused blood products and will remain on vasopressor support to maintain a systolic blood pressure of 90 mmHg or greater. In addition, scheduled midodrine will be continued. Continue to monitor blood counts and transfuse if hemoglobin drops below 7 g/dL. Continue PPI therapy as ordered. Timing for endoscopic evaluation per gastroenterology. 2. Acute hypoxemic respiratory failure The patient has been on supplemental oxygen following her discharge from the hospital recently for COVID-19 pneumonia. Her hospital course was complicated by Legionella pneumonia. 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 Accordingly, in light of her clinical decompensation, the patient was started on voriconazole. Infectious diseases is currently following to assist with medical management. Continue to wean supplemental oxygen to maintain saturations at or above 90%. Leukocytosis is improving. 3. Chronic atrial fibrillation on systemic anticoagulation In light of the patient's presenting anemia, plan to continue to hold Eliquis. In addition, continue to hold Cardizem over concerns for hypotension. 4. Hypophosphatemia Aggressive electrolyte repletion as ordered. Recheck levels in the morning. 5. Recent COVID-19 hospitalization/diabetes mellitus/hyperlipidemia/GERD Complicates care, management, recovery and prognosis. Continue PPI therapy as ordered. TIME: 33 minutes of critical care time, independent of procedures, was spent addressing the patient's hemorrhagic shock, acute hypoxemic respiratory failure, atrial fibrillation, review of all data and collaboration with the care team. Subjective Subjective The patient was seen and examined at the bedside this morning. Events from the last 24 hours have been reviewed. The patient is currently afebrile, but remains on Levophed at 6 mcg/min to maintain hemodynamic stability. The patient is documented to be overall net +3.6 L for the hospitalization. Phosphorus is low at 1.3 this morning. The patient's calcium, when corrected for her degree of hypoalbuminemia, was noted to be 8.6 mg/dL. The patient reported feeling well this morning. She remains on a clear liquid diet. Objective Data Objective Data The patient's most recent lab work, culture data and imaging studies have all been personally reviewed. Surface echocardiogram from May 2022 demonstrated normal LV size and function with an ejection fraction of 60%. Aspergillus fumigatus was isolated from sputum dated May 26. Aspergillus antibodies are pending. Vital Signs: Vital Signs Temp Pulse Resp BP Pulse Ox O2 Del Method O2 Flow Rate 98.7 F 88 22 H 101/56 L 97 Nasal Cannula 2 06/10/22 06:07 06/10/22 07:04 06/10/22 07:04 06/10/22 06:07 06/10/22 07:04 06/10/22 07:04 06/10/22 07:04 FiO2 3 06/07/22 06:00 Oxygen Flow Rate (L/min) 2 Oxygen Delivery Method Nasal Cannula Weight: 141 lb 15.643 oz Body Mass Index (BMI) 20.3 Intake & Output: Intake and Output for Last 24 Hours 06/08/22 06/09/22 06/10/22 23:59 23:59 23:59 Intake Total 1762.00 / 1769.05 2022. 141.75 / 141.75 Output Total 1070 / 1180 695 / 820 280 / 280 Balance 692.00 / 589.05 1321.06 / 1203.56 -138.25 / -138.25 Medical Nutrition Assessment Dietitian: Malnutrition Criteria Met Start: 06/07/22 11:00 Freq: Status: Active Protocol: Document 06/09/22 09:51 AMANDA (Rec: 06/09/22 09:51 AMANDA [id number]) Nutrition Malnutrition Evidence of Malnutrition Exists Yes Malnutrition (severe): Acute Illness/Injury Evidenced By Suboptimal Energy Intake ( Severe),Weight Loss (Severe), Physical Changes (Moderate) Clinical Problem Acute Disease or Injury Related Malnutrition Etiology (severe) related to pneumonia and GI bleed Signs/Symptoms as evidenced by 8.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 Ensure Clear 120mL with meals while on Clear Liquid diet and then provide CIB, Ensure Pudding, or Magic Cup with meals when diet advances > Clear Liquid diet. Lab / Micro Data Attestation: I reviewed the patient's lab results. Result Diagrams: 06/10/22 03:59 06/10/22 03:59 Labs: Laboratory Results - last 24 hr 06/06/22 16:23: Crossmatch See Detail 06/07/22 05:35: Diff Path Review Reviewed 06/09/22 12:17: POC Glucose 165 H 06/09/22 15:10: Hgb 10.3 L, Hct 30.9 L 06/09/22 17:21: POC Glucose 104 06/09/22 21:48: POC Glucose 101 06/10/22 03:59: WBC 15.6 H, RBC 3.44 L, Hgb 9.6 L, Hct 30.0 L, MCV 87.2, MCH 27.9, MCHC 32.0, RDW Std Deviation 60.6 H, RDW Coeff of Palak 19.1 H, Plt Count 264, MPV 9.0, Immature Gran % (Auto) 4.200 H, Neut % (Auto) 72.2 H, Lymph % (Auto) 8.6 L, [place] % (Auto) 3.5, Eos % (Auto) 11.1 H, Baso % (Auto) 0.4, Absolute Neuts (auto) 11.3 H, Absolute Lymphs (auto) 1.34, Nucleated RBC % 0 06/10/22 03:59: Sodium 136, Potassium 3.8, Chloride 106, Carbon Dioxide 25.0, Anion Gap 5, BUN 11, Creatinine 0.34 L, Estim Creat Clear Calc 52.48, Est GFR (MDRD) Af Amer 241, Est GFR (MDRD) Non-Af 199, BUN/Creatinine Ratio 32.0 H, Glucose 77, Calcium 6.4 L*, Magnesium 1.9 06/10/22 03:59: Phosphorus 1.3 L 06/10/22 05:10: Ionized Calcium Cancelled Micro: Microbiology 06/08/22 14:00 Sputum, Expectorated/Coughed Gram Stain - Final 06/08/22 14:00 Sputum, Expectorated/Coughed Respiratory Culture - Preliminary Gram positive cathie 06/06/22 14:42 Blood Culture (Wb) - Right Wrist Blood Culture - Preliminary No growth in 48 hours. 06/06/22 15:10 Blood Culture (Wb) - Right Wrist Blood Culture - Preliminary No growth in 48 hours. 06/06/22 16:30 Urine Catheter - [place] Urine Culture - Final Enterobacter aerogenes Rhythm Strip Rhythm Strip: A-fib Rate: 98 Ectopy: None Physical Exam Const alert and no apparent distress General Appearance: cooperative and frail HEENT normocephalic and head/scalp atraumatic Eyes PERRL, EOMs intact bilaterally and conjunctivae normal Neck supple General: trachea midline Chest inspection of chest normal Resp Auscultation: rales; Negative for rhonchi or wheezes Cardio regular rate and regular rhythm GI normal to inspection, nondistended, normoactive bowel sounds Extremity no clubbing, cyanosis or edema Skin no rashes or lesions noted Neuro oriented x3, CN's II-XII intact bilaterally, moves all extremities and no focal motor deficits Psych cooperative and affect normal Charges/Coding Procedures Hospitalists Procedures: 72985 Critial Care 1st Hr
[2022-06-10] MEDS: Lactated Ringers 1,000 ML 999 ML IV (07:41)
[2022-06-10] MEDS: Midodrine HCl 5 MG Tablet 10 MG PO ×3 (07:45→17:18)
[2022-06-10 09:05] LABS: Pathologist Review Reviewed
[2022-06-10 09:13] LABS: Pathologist Review Reviewed
--- NOTE | 2022-06-10 10:02 | PCM.PN.ID ---
Physical Exam Narrative Feeling better, some cough, no fever, no n/v/d. Const alert and no apparent distress Resp Auscultation: rhonchi Cardio regular rate and regular rhythm GI soft to palpation, non-tender and non-distended Skin no rashes or lesions noted ID ID: Route of nutrition/ use of supplements: [] Nutritional Intake: [] IV Site: [] [place] Catheter: [] Assessment & Plan Assessment/Plan (1) Hemorrhagic shock: PLAN: On empiric meropenem. On vori for aspergillus (+) sputum cx. Aspergillus Abs pending. Overall improving, wbc better, hgb improved. GI following. Ucx with less than 1k enterobacter. Will follow (2) Pneumonia:
--- NOTE | 2022-06-10 10:08 | PN.HOSP_ITS ---
Subjective Subjective Patient states she is overall feeling much better. She has been able to get some junk out of her lungs now that she is off oxygen and not drying her out as much. Is on room air during the day but is still requiring some minimal nasal cannula in the evening. No significant issues overnight. Unfortunately still r emains on Levophed. Fluid challenge being trialed at this time. Objective Data Objective Data Vital Signs: Vital Signs Temp Pulse Resp BP Pulse Ox O2 Del Method O2 Flow Rate 98.7 F 84 25 H 92/47 L 93 Room Air 2 06/10/22 10:00 06/10/22 10:00 06/10/22 10:00 06/10/22 10:00 06/10/22 10:00 06/10/22 10:00 06/10/22 07:04 FiO2 3 06/07/22 06:00 Oxygen Flow Rate (L/min) 2 Oxygen Delivery Method Room Air Weight: 64.4 kg Body Mass Index (BMI) 20.3 Intake & Output: Intake and Output for Last 24 Hours 06/08/22 06/09/22 06/10/22 23:59 23:59 23:59 Intake Total 1762.00 / 1769.05 2016 / 2022.56 1776.69 / 1776.69 Output Total 1070 / 1180 695 / 820 695 / 695 Balance 692.00 / 589.05 1321.06 / 1203.56 1081.69 / 1081.69 Medical Nutrition Assessment Dietitian: Malnutrition Criteria Met Start: 06/07/22 11:00 Freq: Status: Active Protocol: Document 06/09/22 09:51 AMANDA (Rec: 06/09/22 09:51 AMANDA [id number]) Nutrition Malnutrition Evidence of Malnutrition Exists Yes Malnutrition (severe): Acute Illness/Injury Evidenced By Suboptimal Energy Intake ( Severe),Weight Loss (Severe), Physical Changes (Moderate) Clinical Problem Acute Disease or Injury Related Malnutrition Etiology (severe) related to pneumonia and GI bleed Signs/Symptoms as evidenced by 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 Ensure Clear 120mL with meals while on Clear Liquid diet and then provide CIB, Ensure Pudding, or Magic Cup with meals when diet advances > Clear Liquid diet. Lab / Micro Data Result Diagrams: 06/10/22 03:59 06/10/22 03:59 Labs: Laboratory Results - last 24 hr 06/07/22 05:35: Diff Path Review Reviewed 06/08/22 04:50: Diff Path Review Reviewed 06/09/22 04:34: Diff Path Review Reviewed 06/09/22 12:17: POC Glucose 165 H 06/09/22 15:10: Hgb 10.3 L, Hct 30.9 L 06/09/22 17:21: POC Glucose 104 06/09/22 21:48: POC Glucose 101 06/10/22 03:59: WBC 15.6 H, RBC 3.44 L, Hgb 9.6 L, Hct 30.0 L, MCV 87.2, MCH 27.9, MCHC 32.0, RDW Std Deviation 60.6 H, RDW Coeff of Palak 19.1 H, Plt Count 264, MPV 9.0, Immature Gran % (Auto) 4.200 H, Neut % (Auto) 72.2 H, Lymph % (Auto) 8.6 L, [place] % (Auto) 3.5, Eos % (Auto) 11.1 H, Baso % (Auto) 0.4, Absolute Neuts (auto) 11.3 H, Absolute Lymphs (auto) 1.34, Nucleated RBC % 0 06/10/22 03:59: Sodium 136, Potassium 3.8, Chloride 106, Carbon Dioxide 25.0, Anion Gap 5, BUN 11, Creatinine 0.34 L, Estim Creat Clear Calc 52.48, Est GFR (MDRD) Af Amer 241, Est GFR (MDRD) Non-Af 199, BUN/Creatinine Ratio 32.0 H, Glucose 77, Calcium 6.4 L*, Magnesium 1.9 06/10/22 03:59: Phosphorus 1.3 L 06/10/22 05:10: Ionized Calcium Cancelled Micro: Microbiology 06/08/22 14:00 Sputum, Expectorated/Coughed Gram Stain - Final 06/08/22 14:00 Sputum, Expectorated/Coughed Respiratory Culture - Preliminary Gram positive cathie Possible Fungus 06/08/22 13:59 Blood Culture (Wb) - Pic Blood Culture - Preliminary No growth in 48 hours. 06/08/22 08:00 Blood Culture (Wb) - Port Blood Culture - Preliminary No growth in 48 hours. 06/06/22 14:42 Blood Culture (Wb) - Right Wrist Blood Culture - Preliminary No growth in 48 hours. 06/06/22 15:10 Blood Culture (Wb) - Right Wrist Blood Culture - Preliminary No growth in 48 hours. 06/06/22 16:30 Urine Catheter - [place] Urine Culture - Final Enterobacter aerogenes Rhythm Strip Rhythm Strip: A-fib Rate: 98 Ectopy: None Physical Exam Const alert, oriented x3 and no apparent distress Constitutional Narrative: Older, debilitated, white female sitting up in bed, continues to improve clinically, appears older than stated age, on room air, appears nontoxic and very pleasant General Appearance: well developed Orientation / Consciousness: awake HEENT normocephalic, head/scalp atraumatic and moist oral mucous membranes Neck no JVD Resp normal respiratory effort, no retractions and no use of accessory muscles Resp Narrative: Continues to have some coarse breath sounds however overall improving, diffusely diminished Auscultation: Negative for crackles, rales, rhonchi or wheezes Cardio regular rate, S1 normal heart sound, S2 normal heart sound, no murmurs, no rub, no gallops, no clicks and no JVD Cardio Narrative: Irregularly irregular rhythm GI normal to inspection, nondistended, normoactive bowel sounds, soft to palpation, non-tender and non-distended; Negative for hepatosplenomegaly Extremity no clubbing, cyanosis or edema Extremity Narrative: 2+ pedal pulses Skin Skin Narrative: Pale skin with scattered ecchymosis, left IJ in place-dressing is clean dry and intact Neuro oriented x3, moves all extremities and no focal motor deficits Neuro Narrative: Marked generalized weakness, no focal deficits Speech: speech normal Assessment & Plan Assessment/Plan (1) Acute upper gastrointestinal bleeding: (2) Hemorrhagic shock: (3) Acute respiratory failure with hypoxia: (4) Dehydration: (5) Hyponatremia: (6) Hypophosphatemia: (7) Acute blood loss anemia: (8) Hypotension: PLAN: Plan Hemorrhagic shock secondary to upper GI bleed -Hemoglobin on presentation was 6.1--> given 3 units of packed red blood cells with repeat hemoglobin of 11 this morning -Continue to hold anticoagulation -Patient remains on low-dose Levophed at 6 mics -Wean as able -Fluid challenge trial -Cortisol level elevated as expected -Discontinue Protonix drip and start Protonix 40 mg IV twice daily -Plan is for EGD once patient is hemodynamically stable and off pressors -Diet per GI Acute hypoxic respiratory failure -Patient with persistent bilateral interstitial infiltrates -Aspergillus grew on previous respiratory culture--> discussed with pulmonary medicine -Beta-2 glycoprotein antibody pending -Galactomannan remains pending -Aspergillus antibodies remain pending -Blood cultures negative at 48 hours--> continue to monitor -Continue voriconazole 4 mg/kg twice daily -Infectious diseases following-appreciate input -Leukocytosis continues to improve since the addition of voriconazole -Recent COVID-19 and Legionella pneumonia -Treatment has been completed for these -Continue empiric antibiotics for now with leukocytosis but per ID will likely stop meropenem soon -Patient was on 3 to 4 L at discharge from 05/31/2022--> now weaned to 2 L with oxygen saturation 95 to 98% -White count is trending down -Pulmonary medicine following and appreciate input Acute on chronic anemia -Hemoglobin has trended down slowly with no obvious signs of bleeding but is still 9.6 this morning from 10.3 yesterday afternoon -Continue to monitor -CBC in a.m. Hyponatremia -Resolved Hypokalemia -Resolved Hypophosphatemia -Phosphorus is improved but still low at 1.3 -Rebolus and recheck in a.m. Hypomagnesemia - resolved Chronic atrial fibrillation -Rate controlled -On Cardizem at baseline which is currently being held secondary to blood pressure -Restart when able and off pressors -Hold anticoagulation secondary to GI bleed DM-2 -Continue home Lantus but decrease to 7 units--> a.m. blood sugar 77 -Continue sliding scale -Accu-Cheks -Diabetic diet when p.o. is reinitiated -Hold home metformin Hypocalcemia -Serum calcium 6.9 however when corrected for albumin is normalized -Albumin is 1.3 Hyperlipidemia -Continue atorvastatin Osteoporosis -Alendronate on hold -Restart on discharge DVT prophylaxis -SCDs -No chemoprophylaxis secondary to GI bleed CODE STATUS -Full code
[2022-06-10] MEDS: CHLORHEXIDINE GLUC 2% CLOTH 1 EACH TOWELETTE TOPICAL (10:12)
--- NOTE | 2022-06-10 11:56 | WOUNDNOTE ---
wound photo: bilateral buttocks
[2022-06-10] MEDS: Insulin Glargine-YFGN 100 UNIT/ML Pen 7 UNIT SC (12:11)
[2022-06-10 12:30] LABS: Bedside Glucose 110 mg/dL (74-106)
[2022-06-10 17:10] LABS: Bedside Glucose 93 mg/dL (74-106)
[2022-06-10] MEDS: Atorvastatin Calcium 20 MG Tablet PO (21:17)
[2022-06-10 22:16] LABS: Bedside Glucose 73 mg/dL (74-106)
[2022-06-11] VITALS (44 sets, daily range): BP systolic 81–112; BP diastolic 47–70; PULSE 67–147; RESP 16–30; TEMP 36.8–37.4; O2SAT 88–100; BMI 21.9
[2022-06-11 04:14] LABS: Absolute Lymphocyte Count 1.36 X10^3/uL (0.83-4.51); Absolute Neutrophil Count 9.2 X10^3/uL (2.0-7.7); Basophil# 0.03 X10^3/uL; Basophil% 0.2 % (0-1); Eosinophil# 1.28 X10^3/uL; Hemoglobin 8.6 g/dL (12.0-15.0); Lymphocyte # 1.36 X10^3/ul (0.83-4.51); Lymphocyte % 10.6 % (19-41); Mean Corp Hgb Conc 31.9 g/dL (32-36); Mean Corpuscular Hgb 27.8 pg (27.0-32.0); Mean Corpuscular Volume 87.4 fL (81-99); Mean Platelet Vol. 9.5 fl (6.2-12.0); Monocyte# 0.58 X10^3/uL; Monocyte% 4.5 % (0-10); NRBC Flagged by Analyzer 0 % (0-5); Neutrophil # 9.22 X10^3/uL (2.7-7.7); Neutrophil % 72.3 % (47-70); Platelet Count 275 K/mm3 (150-450); RBC Distribution Width CV 18.9 % (11.6-14.6); RBC Distribution Width SD 61.1 fl (35.1-43.9); Red Blood Count 3.09 M/mm3 (4.2-5.4); White Blood Count 12.8 K/mm3 (4.4-11.0)
[2022-06-11 05:02] LABS: Anion Gap 4 (5-15); BUN 7 mg/dL (7-18); BUN/Creat Ratio 29.2 RATIO (10-20); Calcium,Total 6.2 mg/dL (8.5-10.1); Chloride 109 mmol/L (98-107); Creatinine, Serum 0.24 mg/dL (0.55-1.02); EST Glomerular Filtration Rate 302 mL/min (>60); Est Glom Filt Rate - Afr Amer 366 mL/min (>60); Estimated Creatinine Clearance 52.81 ml/min; Glucose 65 mg/dL (74-106); Potassium 3.3 mmol/L (3.5-5.1); Sodium Level 138 mmol/L (136-145)
[2022-06-11] MEDS: Nystatin Powder 15gm Bottle 1 APPLIC TOPICAL ×3 (05:46→21:07)
[2022-06-11] MEDS: 0.9% Saline Lock 10 ML Syringe IV ×3 (05:47→21:23)
--- NOTE | 2022-06-11 05:54 | PCM.PN.INT ---
Assessment & Plan Assessment/Plan (1) Hemorrhagic shock: PLAN: Plan RECOMMENDATIONS: 1. Continue empiric antimicrobials along with antifungal therapy per ID recommendations. 2. Continue PPI therapy as ordered. 3. Continue to monitor blood counts and transfuse for hemoglobin greater than 7 g/dL. 4. Aggressive electrolyte repletion. Recheck phosphorus and magnesium. 5. Continue to hold systemic anticoagulation. 6. Continue scheduled midodrine. 7. Digoxin x1 to address atrial fibrillation. 8. Continue to wean supplemental oxygen as tolerated for saturations greater than 90%. 9. Encourage incentive spirometer use and mobilize patient as tolerated. IMPRESSIONS: 1. Hemorrhagic shock The patient presented to the hospital after recently being admitted with COVID-19 pneumonia with acute blood loss anemia and associated lethargy and weakness. There is concern for upper GI bleed as the source for her anemia. However, the patient has been too unstable to proceed with endoscopy. She has been transfused blood products and will remain on vasopressor support to maintain a systolic blood pressure of 90 mmHg or greater. In addition, scheduled midodrine will be continued. Continue to monitor blood counts and transfuse if hemoglobin drops below 7 g/dL. Continue PPI therapy as ordered. Timing for endoscopic evaluation per gastroenterology. 2. Acute hypoxemic respiratory failure The patient has been on supplemental oxygen following her discharge from the hospital recently for COVID-19 pneumonia. Her hospital course was complicated by Legionella pneumonia. 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 Accordingly, in light of her clinical decompensation, the patient was started on voriconazole. Infectious diseases is currently following to assist with medical management. Continue to wean supplemental oxygen to maintain saturations at or above 90%. Leukocytosis is improving. 3. Chronic atrial fibrillation on systemic anticoagulation In light of the patient's presenting anemia, plan to continue to hold Eliquis. In addition, continue to hold Cardizem over concerns for hypotension. 4. Hypokalemia/hypomagnesemia/hypophosphatemia Aggressive electrolyte repletion as ordered. Recheck levels in the morning. 5. Recent COVID-19 hospitalization/diabetes mellitus/hyperlipidemia/GERD Complicates care, management, recovery and prognosis. Continue PPI therapy as ordered. TIME: 32 minutes of critical care time, independent of procedures, was spent addressing the patient's hemorrhagic shock, acute hypoxemic respiratory failure, atrial fibrillation, review of all data and collaboration with the care team. Subjective Subjective The patient was seen and examined at the bedside this morning. Events from the last 24 hours have been reviewed. The patient is currently afebrile and maintaining appropriate oxygen saturations on 2 L/min via nasal cannula. Her Levophed requirement has been weaned down to 3 mcg/min, while titrating to a systolic pressure of 90 mmHg. She is currently documented to be overall net +5.9 L for the hospitalization. Potassium is again low at 3.3. Objective Data Objective Data The patient's most recent lab work, culture data and imaging studies have all been personally reviewed. Surface echocardiogram from May 2022 demonstrated normal LV size and function with an ejection fraction of 60%. Aspergillus fumigatus was isolated from sputum dated May 26. Aspergillus antibodies are pending. Vital Signs: Vital Signs Temp Pulse Resp BP Pulse Ox O2 Del Method O2 Flow Rate 98.7 F 79 23 H 105/51 L 98 Nasal Cannula 2 06/11/22 04:00 06/11/22 04:00 06/11/22 04:00 06/11/22 04:00 06/11/22 04:00 06/11/22 04:00 06/11/22 04:00 FiO2 97 06/11/22 04:00 Oxygen Flow Rate (L/min) 2 Oxygen Delivery Method Nasal Cannula Weight: 144 lb 9.972 oz Body Mass Index (BMI) 20.3 Intake & Output: Intake and Output for Last 24 Hours 06/09/22 06/10/22 06/11/22 23:59 23:59 23:59 Intake Total 2015.2022.56 3695.2633 / 3700.8633 31.36 / 31.36 Output Total 695 / 820 1360 / 1360 200 / 200 Balance 1321.06 / 1203.56 2335.2633 / 2340.8633 -168.64 / -168.64 Medical Nutrition Assessment Dietitian: Malnutrition Criteria Met Start: 06/07/22 11:00 Freq: Status: Active Protocol: Document 06/10/22 10:22 RMA (Rec: 06/10/22 10:22 RMA [id number]) Nutrition Malnutrition Evidence of Malnutrition Exists Yes Malnutrition (severe): Acute Illness/Injury Evidenced By Suboptimal Energy Intake ( Severe),Weight Loss (Severe), Physical Changes (Moderate) Clinical Problem Acute Disease or Injury Related Malnutrition Etiology (severe) related to altered GI function and inadequate oral intake Signs/Symptoms as evidenced by 8.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 Will continue Ensure Clear 120 mL with meals. Will add magic cup w/ lunch and ensure pudding with dinner . Adjust ONS as needed once intake established with Transitional diet. Lab / Micro Data Attestation: I reviewed the patient's lab results. Result Diagrams: 06/11/22 04:10 06/11/22 04:10 Labs: Laboratory Results - last 24 hr 06/08/22 04:50: Diff Path Review Reviewed 06/09/22 04:34: Diff Path Review Reviewed 06/10/22 05:10: Ionized Calcium Cancelled 06/10/22 12:10: POC Glucose 110 H 06/10/22 16:53: POC Glucose 93 06/10/22 21:15: POC Glucose 73 L 06/11/22 04:10: WBC 12.8 H, RBC 3.09 L, Hgb 8.6 L, Hct 27.0 L, MCV 87.4, MCH 27.8, MCHC 31.9 L, RDW Std Deviation 61.1 H, RDW Coeff of [place] 18.9 H, Plt Count 275, MPV 9.5, Immature Gran % (Auto) 2.400 H, Neut % (Auto) 72.3 H, Lymph % (Auto) 10.6 L, [place] % (Auto) 4.5, Eos % (Auto) 10.0 H, Baso % (Auto) 0.2, Absolute Neuts (auto) 9.2 H, Absolute Lymphs (auto) 1.36, Nucleated RBC % 0 06/11/22 04:10: Sodium 138, Potassium 3.3 L, Chloride 109 H, Carbon Dioxide 25.0, Anion Gap 4 L, BUN 7, Creatinine 0.24 L, Estim Creat Clear Calc 52.81, Est GFR (MDRD) Af Amer 366, Est GFR (MDRD) Non-Af 302, BUN/Creatinine Ratio 29.2 H, Glucose 65 L, Calcium 6.2 L* Micro: Microbiology 06/08/22 14:00 Sputum, Expectorated/Coughed Gram Stain - Final 06/08/22 14:00 Sputum, Expectorated/Coughed Respiratory Culture - Preliminary Gram positive cathie Possible Fungus 06/08/22 13:59 Blood Culture (Wb) - Pic Blood Culture - Preliminary No growth in 48 hours. 06/08/22 08:00 Blood Culture (Wb) - Port Blood Culture - Preliminary No growth in 48 hours. 06/06/22 14:42 Blood Culture (Wb) - Right Wrist Blood Culture - Preliminary No growth in 48 hours. 06/06/22 15:10 Blood Culture (Wb) - Right Wrist Blood Culture - Preliminary No growth in 48 hours. 06/06/22 16:30 Urine Catheter - [place] Urine Culture - Final Enterobacter aerogenes Rhythm Strip Rhythm Strip: A-fib Rate: 98 Ectopy: None Physical Exam Const alert and no apparent distress General Appearance: cooperative and frail HEENT normocephalic and head/scalp atraumatic Eyes PERRL, EOMs intact bilaterally and conjunctivae normal Neck supple General: trachea midline Chest inspection of chest normal Resp Resp Narrative: Poor inspiratory effort Auscultation: diminished lung sounds; Negative for rales, rhonchi or wheezes Cardio S1 normal heart sound and S2 normal heart sound Rate: tachycardic Rhythm: abnormal rhythm GI normal to inspection, nondistended, normoactive bowel sounds Extremity no clubbing, cyanosis or edema Skin no rashes or lesions noted Neuro oriented x3, CN's II-XII intact bilaterally, moves all extremities and no focal motor deficits Psych cooperative and affect normal Charges/Coding Procedures Hospitalists Procedures: [id number] Critial Care 1st Hr
[2022-06-11] MEDS: Ipratropium/Albuterol Sulfate 3 ML AMPUL.NEB INHALATION ×2 (07:00→19:30)
[2022-06-11] MEDS: Ondansetron 4 MG/2 ML Vial IV (08:05)
[2022-06-11] MEDS: Digoxin 250 MCG/ML Ampul 500 MCG IV (08:54)
[2022-06-11] MEDS: Midodrine HCl 5 MG Tablet 10 MG PO ×3 (08:54→18:56)
[2022-06-11 09:31] LABS: Magnesium 1.3 mg/dL (1.6-2.6); Phosphorus 1.6 mg/dL (2.5-4.9)
[2022-06-11] MEDS: Potassium Chloride 20mEq/100mL 20 MEQ/100 ML IV.SOLN. 100 MEQ IV BOLUS ×2 (10:16→12:26)
--- NOTE | 2022-06-11 11:45 | EGD_PTH ---
PATIENT: CAREMN MILLER LOC: [facility] U#:[id number] AGE/SX: 72/F ROOM: [facility] RE06/06/[address]: Dr. Stefany Bynum MD : 1950 BED: 1 DIS: 06/18/2022 SPEC #: [id number] RECD: 06/11/22 16:36 STATUS: LAURA RELizz #: [id number] DAVI: 06/11/22 11:[address]: Maurilio Mcmanus DEPT: SURGICAL PATHOLOGY RECD BY: Paris Golden ENTERED: 06/12/22 08:20 SP TYPE: EGD BIOPSY OTHR DR: MD Dr. Travis Carrasco, DO Dr. Shwetha Antonio, DO Dr. Gerald Low, DO MD Dr. Dax Blackman MD Dr. Tanmay Panchabhai, MD Christina Muller, [employer] DRAFTSPERSON-C Tissues: Jejunum, NOS Procedures: Surgery Specimen Level IV Comments: @ Ordering doctor for SUIV edited from to @ by SUZANNE at 06/12/22 144 @ Submitting doctor edited from to @ by SUZANNE at 06/12/22 1441 HEADER OPERATION: EGD ([facility] [place] PRE-OP DIAGNOSIS: GI bleed, anemia TISSUE SUBMITTED: Jejunal biopsy MICROSCOPIC DIAGNOSIS Jejunal biopsy: Fragments of small intestinal mucosa, no pathologic diagnosis. ROSIE:zak 06/13/2022 MICROSCOPIC DESCRIPTION Slides are reviewed. GROSS DESCRIPTION Received in fixative is one container labeled with the patient's name and designated jejunal biopsy. The specimen consists of two irregular fragments of light mauro soft tissue that in aggregate measure 0.9 x 0.3 x 0.1 cm. The specimen is totally submitted in one cassette. / ROSIE:zak 06/12/2022 TC:4 CPT: 88435
[2022-06-11 11:50] LABS: Bedside Glucose 97 mg/dL (74-106)
--- NOTE | 2022-06-11 12:36 | PN.HOSP_ITS ---
Subjective Subjective Patient reverted into A. fib with RVR through the night. Shortly after I evaluated her she flipped back into normal sinus rhythm. Did require some oxygen supplementation while she was in atrial fibrillation at 2 L but hopefully this will be able to be removed with her conversion to normal sinus rhythm. Remains on low-dose Levophed at 3 mics. Hemoglobin has dropped some and I discussed the case with Dr. Mcmanus from gastroenterology and the plan is to scope later today. Objective Data Objective Data Vital Signs: Vital Signs Temp Pulse Resp BP Pulse Ox O2 Del Method O2 Flow Rate 98.7 F 89 26 H 101/59 L 100 Nasal Cannula 2 06/11/22 08:00 06/11/22 11:00 06/11/22 11:00 06/11/22 11:00 06/11/22 11:00 06/11/22 11:00 06/11/22 11:00 FiO2 97 06/11/22 04:00 Oxygen Flow Rate (L/min) 2 Oxygen Delivery Method Nasal Cannula Weight: 65.6 kg Body Mass Index (BMI) 21.9 Intake & Output: Intake and Output for Last 24 Hours 06/09/22 06/10/22 06/11/22 23:59 23:59 23:59 Intake Total 2016.2022.56 3695.2633 / 3700.8633 329.75 / 329.75 Output Total 695 / 820 1360 / 1360 600 / 600 Balance 1321.06 / 1203.56 2335.2633 / 2340.8633 -270.25 / -270.25 Medical Nutrition Assessment Dietitian: Malnutrition Criteria Met Start: 06/07/22 11:00 Freq: Status: Active Protocol: Document 06/11/22 12:29 RMA (Rec: 06/11/22 12:29 RMA [id number]) Nutrition Malnutrition Evidence of Malnutrition Exists Yes Malnutrition (severe): Acute Illness/Injury Evidenced By Suboptimal Energy Intake ( Severe),Weight Loss (Severe), Physical Changes (Moderate) Clinical Problem Acute Disease or Injury Related Malnutrition Etiology (severe) related to altered GI function and inadequate oral intake Signs/Symptoms as evidenced by 8.7% weight loss in <1 month bellman captain, <50% PO intake for ~3 weeks bellman captain, and fat/muscle loss Status Active Problem Recommendation Dietitian Recommendations/Changes Resume Transitional diet after scope; goal of carbohydrate- Controlled as needed. Will continue Ensure Clear 120 mL with meals as diet resumed . Will continue magic cup w/ lunch and ensure pudding with dinner as diet resumed. Adjust ONS as needed once intake established with Transitional diet. Lab / Micro Data Result Diagrams: 06/11/22 04:10 06/11/22 04:10 Labs: Laboratory Results - last 24 hr 06/06/22 16:23: Crossmatch See Detail 06/10/22 16:53: POC Glucose 93 06/10/22 21:15: POC Glucose 73 L 06/11/22 04:10: WBC 12.8 H, RBC 3.09 L, Hgb 8.6 L, Hct 27.0 L, MCV 87.4, MCH 27.8, MCHC 31.9 L, RDW Std Deviation 61.1 H, RDW Coeff of Palak 18.9 H, Plt Count 275, MPV 9.5, Immature Gran % (Auto) 2.400 H, Neut % (Auto) 72.3 H, Lymph % (Auto) 10.6 L, [place] % (Auto) 4.5, Eos % (Auto) 10.0 H, Baso % (Auto) 0.2, Absolute Neuts (auto) 9.2 H, Absolute Lymphs (auto) 1.36, Nucleated RBC % 0 06/11/22 04:10: Sodium 138, Potassium 3.3 L, Chloride 109 H, Carbon Dioxide 25.0, Anion Gap 4 L, BUN 7, Creatinine 0.24 L, Estim Creat Clear Calc 52.81, Est GFR (MDRD) Af Amer 366, Est GFR (MDRD) Non-Af 302, BUN/Creatinine Ratio 29.2 H, Glucose 65 L, Calcium 6.2 L* 06/11/22 04:10: Phosphorus 1.6 L, Magnesium 1.3 L 06/11/22 11:33: POC Glucose 97 Micro: Microbiology 06/08/22 14:00 Sputum, Expectorated/Coughed Gram Stain - Final 06/08/22 14:00 Sputum, Expectorated/Coughed Respiratory Culture - Preliminary Gram positive cathie Possible Fungus 06/08/22 13:59 Blood Culture (Wb) - Pic Blood Culture - Preliminary No growth in 48 hours. 06/08/22 08:00 Blood Culture (Wb) - Port Blood Culture - Preliminary No growth in 48 hours. 06/06/22 14:42 Blood Culture (Wb) - Right Wrist Blood Culture - Preliminary No growth in 48 hours. 06/06/22 15:10 Blood Culture (Wb) - Right Wrist Blood Culture - Preliminary No growth in 48 hours. 06/06/22 16:30 Urine Catheter - [place] Urine Culture - Final Enterobacter aerogenes Rhythm Strip Rhythm Strip: A-fib Rate: 98 Ectopy: None Physical Exam Const alert, oriented x3 and no apparent distress Constitutional Narrative: Older, debilitated, white female sitting up in bed, continues to improve clinically, appears older than stated age, on room air, appears nontoxic and very pleasant General Appearance: well developed Orientation / Consciousness: awake HEENT normocephalic, head/scalp atraumatic and moist oral mucous membranes HEENT Narrative: Mallampati is 2, no thrush Eyes PERRL and EOMs intact bilaterally Eyes Narrative: Pale conjunctiva bilaterally, no scleral icterus Neck no lymphadenopathy, supple, no JVD and thyroid normal Neck Narrative: Left internal jugular venous line -clean and dry General: trachea midline Resp normal respiratory effort, no retractions, no use of accessory muscles and clear to auscultation bilaterally Resp Narrative: Diminished but clear Auscultation: Negative for crackles, rales, rhonchi or wheezes Cardio S1 normal heart sound, S2 normal heart sound, no murmurs, no rub, no gallops, no clicks and no JVD Cardio Narrative: Irregularly irregular rhythm-tachycardic GI normal to inspection, nondistended, normoactive bowel sounds, soft to palpation, non-tender and non-distended; Negative for hepatosplenomegaly Extremity Extremity Narrative: 1+ bilateral lower extremity edema 2+ pedal pulses, trace hand edema, 2+ pedal pulses, no cyanosis or clubbing General Extremity: edema Skin no rashes or lesions noted, skin turgor normal, no jaundice, no petechiae and no mottling Skin Narrative: Pale skin with scattered ecchymosis, left IJ in place-dressing is clean dry and intact General Skin Exam: no breakdown Neuro oriented x3, moves all extremities and no focal motor deficits Neuro Narrative: Marked generalized weakness, no focal deficits Sensorium / Orientation: awake, alert, oriented to person, oriented to place and oriented to time Speech: speech normal Psych affect normal Psych Narrative: Appropriately interactive and pleasant Assessment & Plan Assessment/Plan (1) Acute upper gastrointestinal bleeding: (2) Hemorrhagic shock: (3) Acute respiratory failure with hypoxia: (4) Dehydration: (5) Hyponatremia: (6) Hypophosphatemia: (7) Acute blood loss anemia: (8) Hypotension: PLAN: Plan Hemorrhagic shock secondary to upper GI bleed -Hemoglobin on presentation was 6.1--> given 3 units of packed red blood cells -Hemoglobin had stabilized but now trending down again and has dropped a gram each day since Thursday -Continue to hold anticoagulation -Patient remains on low-dose Levophed at 3 mics -Wean as able -Slight reduction of Levophed with fluid challenge -Cortisol level elevated as expected -Continue IV Protonix 40 mg push twice daily -I discussed the case with Dr. Mcmanus and the plan is for EGD later today given concern for bleeding -N.p.o. for now Acute hypoxic respiratory failure -Patient had been weaned to room air until she flipped into A. fib with RVR -Niccoli much improved -Aspergillus grew on previous respiratory culture--> discussed with pulmonary medicine -Beta-2 glycoprotein antibody remains pending -Galactomannan remains pending -Aspergillus antibodies remains pending -Blood cultures negative at 48 hours--> continue to monitor -Continue voriconazole 4 mg/kg twice daily -Infectious diseases following-appreciate input -Leukocytosis continues to improve since the addition of voriconazole--> almost normalized at this point -Recent COVID-19 and Legionella pneumonia -Treatment has been completed for these -Continue empiric antibiotics for now with leukocytosis but per ID will likely stop meropenem soon -Pulmonary medicine following and appreciate input Acute on chronic anemia -Patient with bloody bowel movement this morning -Hemoglobin is trending down -Infuse for less than 7 -EGD today -Continue to monitor -CBC in a.m. Hypokalemia -40 mill equivalents of IV potassium given -Repeat lab in a.m. Hypophosphatemia -30 mmol of phosphorus replacement -Repeat a.m. phosphorus level Hypomagnesemia -4 g IV magnesium -Repeat mag level in a.m. Paroxysmal atrial fibrillation -Currently in RVR -Dig x1 dose 500 mg given -On Cardizem at baseline which is currently being held secondary to blood pressure -Restart when able and off pressors -Hold anticoagulation secondary to GI bleed DM-2 - a.m. blood sugar 65--> anticipate as her infection resolves her blood sugars become more controlled -Discontinue Lantus -Continue sliding scale -Accu-Cheks -Diabetic diet when p.o. is reinitiated -Hold home metformin Hypocalcemia -Serum calcium 6.1 however when corrected for albumin is normalized -Calcium given by critical care medicine -Albumin is 1.3 Hyperlipidemia -Continue atorvastatin Osteoporosis -Alendronate on hold -Restart on discharge DVT prophylaxis -SCDs -No chemoprophylaxis secondary to GI bleed CODE STATUS -Full code Charges/Coding Visit Charges Inpatient E&M: 05376 Subs Hosp L3
[2022-06-11] MEDS: Magnesium Sulfate 4gm/100mL 4 GM/100 ML IV.SOLN. IV (12:52)
--- NOTE | 2022-06-11 12:57 | PCM.PN.ID ---
Physical Exam Narrative EGD today, no fever, breathing ok Const alert and no apparent distress Resp normal air movement and clear to auscultation bilaterally Cardio regular rate and regular rhythm GI soft to palpation, non-tender and non-distended Skin no rashes or lesions noted ID ID: Route of nutrition/ use of supplements: [] Nutritional Intake: [] IV Site: [] [place] Catheter: [] Assessment & Plan Assessment/Plan (1) Hemorrhagic shock: PLAN: On empiric meropenem. On vori for aspergillus (+) sputum cx. Repeat sputum cx with fungus and GPR. Aspergillus Abs pending. Overall improving, wbc better, hgb improved. GI following. Ucx with less than 1k enterobacter. Remains on pressor. Will follow (2) Pneumonia:
[2022-06-11 13:05] LABS: Hemoglobin 9.5 g/dL (12.0-15.0)
[2022-06-11 13:55] LABS: Bedside Glucose 108 mg/dL (74-106)
--- NOTE | 2022-06-11 15:45 | NURSING ---
Patient left unit to endo
--- NOTE | 2022-06-11 16:27 | OP.EGD_ITS ---
Patient Name: Ravi Beckham Procedure Date: 06/11/2022 3:19 PM Date of : 1950 Age: 72 Procedure: Upper GI endoscopy Indications: Acute post hemorrhagic anemia, Iron deficiency anemia Providers: Maurilio Mcmanus DO Medicines: Monitored Anesthesia Care Patient Profile: This is a 72 year old female. Refer to note in patient chart for documentation of history and physical. Patient has symptoms. Complications: No immediate complications. Procedure: Pre-Anesthesia Assessment: - Prior to the procedure, a History and Physical was performed, and patient medications and allergies were reviewed. The patient is competent. The risks and benefits of the procedure and the sedation options and risks were discussed with the patient. All questions were answered and informed consent was obtained. Patient identification and proposed procedure were verified by the physician. Mental Status Examination: alert and oriented. Airway Examination: normal oropharyngeal airway and neck mobility. Respiratory Examination: clear to auscultation. CV Examination: normal. Prophylactic Antibiotics: The patient does not require prophylactic antibiotics. Prior Anticoagulants: The patient has taken no previous anticoagulant or antiplatelet agents. ASA Grade Assessment: II - A patient with mild systemic disease. After reviewing the risks and benefits, the patient was deemed in satisfactory condition to undergo the procedure. The anesthesia plan was to use moderate sedation / analgesia (conscious sedation). Immediately prior to administration of medications, the patient was re-assessed for adequacy to receive sedatives. The heart rate, respiratory rate, oxygen saturations, blood pressure, adequacy of pulmonary ventilation, and response to care were monitored throughout the procedure. The physical status of the patient was re-assessed after the procedure. After obtaining informed consent, the endoscope was passed under direct vision. Throughout the procedure, the patient's blood pressure, pulse, and oxygen saturations were monitored continuously. The Colonoscope was introduced through the mouth, and advanced to the second part of duodenum. The upper GI endoscopy was accomplished without difficulty. The patient tolerated the procedure well. Scope In: 4:00:59 PM Scope Out: 4:16:38 PM Total Procedure Duration Time 0 hours 15 minutes 39 seconds Findings: The Z-line was irregular and was found 37 cm from the incisors. LA Grade B (one or more mucosal breaks greater than 5 mm, not extending between the tops of two mucosal folds) esophagitis with no bleeding was found 36 to 39 cm from the incisors. Diffuse severe inflammation with hemorrhage characterized by congestion (edema), erythema and friability was found in the entire examined stomach. Coagulation for hemostasis using heater probe was successful. Estimated blood loss was minimal. A 5 mm non-bleeding diverticulum was found in the second portion of the duodenum. A 4 mm non-bleeding diverticulum was found in the jejunum. One non-bleeding cratered ulcer with no stigmata of bleeding was found in the jejunum. The lesion was 6 mm in largest dimension. Biopsies were taken with a cold forceps for histology. Verification of patient identification for the specimen was done. Estimated blood loss was minimal. Impression: - Z-line irregular, 37 cm from the incisors. - LA Grade B reflux esophagitis. - Chronic gastritis with hemorrhage. Treated with a heater probe. - Non-bleeding duodenal diverticulum. - Non-bleeding jejunal diverticulum. - One non-bleeding jejunal ulcer with no stigmata of bleeding Biopsied. Recommendation: - [facility] patient [facility] for [facility] care. - Use Protonix (pantoprazole) 40 mg IV q12. - Use sucralfate tablets 1 gram PO QID. - Administer an IV bolus of 50 micrograms of octreotide followed by an infusion of 12 micrograms per hour. - Continue present medications. Procedure Code(s): --- Professional --- 80329, 59, Esophagogastroduodenoscopy, flexible, transoral; with control of bleeding, any method 16409, 51, Esophagogastroduodenoscopy, flexible, transoral; with biopsy, single or multiple CPT copyright 2017 [employer]. All rights reserved. The codes documented in this report are preliminary and upon press worker helper review may be revised to meet current compliance requirements. Maurilio Mcmanus DO 06/11/2022 4:27:17 PM This report has been signed electronically. Number of Addenda: 1 Note Initiated On: 06/11/2022 3:19 PM Addendum Number: 1 Addendum Date: 07/24/2022 6:05:39 AM MAC was used as sedation for this procedure. Maurilio Mcmanus DO 07/24/2022 6:05:47 AM This report has been signed electronically.
--- NOTE | 2022-06-11 16:27 | OP.CCLET_ITS ---
07/24/2022 Misael Molina MD [address] [id number] Re : Upper GI endoscopy procedure for Ravi Beckham Dear Dr. Molina This procedure was performed on Saturday, June 11, 2022. My impressions and recommendations are as follows: Impressions : - Z-line irregular, 37 cm from the incisors. - LA Grade B reflux esophagitis. - Chronic gastritis with hemorrhage. Treated with a heater probe. - Non-bleeding duodenal diverticulum. - Non-bleeding jejunal diverticulum. - One non-bleeding jejunal ulcer with no stigmata of bleeding Biopsied. Recommendations : - Return [facility] to [facility] care. - Use Protonix (pantoprazole) 40 mg IV q12. - Use sucralfate tablets 1 gram PO QID. - Administer an IV bolus of 50 micrograms of octreotide followed by an infusion of 12 micrograms per hour. - Continue present medications. My findings are described in the full procedure note, which is enclosed. If I can be of further assistance, please feel free to contact me at . Sincerely, Maurilio Mcmanus, 06/11/2022 4:27:17 PM This report has been signed electronically.
[2022-06-11 18:10] LABS: Bedside Glucose 91 mg/dL (74-106)
[2022-06-11] MEDS: Octreotide 0.1 MG/ML ML 0.05 MG IV (19:24)
[2022-06-11] MEDS: Scopolamine 1mg/72hr Patch 1 PATCH TD (20:58)
[2022-06-11] MEDS: Sucralfate 1 GM Tablet PO (20:59)
[2022-06-11] MEDS: Atorvastatin Calcium 20 MG Tablet PO (21:01)
[2022-06-12] VITALS (52 sets, daily range): BP systolic 74–127; BP diastolic 43–85; PULSE 53–104; RESP 17–29; TEMP 37.1–37.7; O2SAT 90–100
[2022-06-12 02:26] LABS: Bedside Glucose 113 mg/dL (74-106)
[2022-06-12 04:21] LABS: Absolute Neutrophil Count 8.3 X10^3/uL (2.0-7.7); Basophil# 0.05 X10^3/uL; Basophil% 0.4 % (0-1); Eosinophil# 1.38 X10^3/uL; Eosinophils% 11.7 % (0-5); Hematocrit 29.5 % (37-47); Hemoglobin 9.5 g/dL (12.0-15.0); Lymphocyte % 10.2 % (19-41); Mean Corp Hgb Conc 32.2 g/dL (32-36); Mean Corpuscular Hgb 28.4 pg (27.0-32.0); Mean Corpuscular Volume 88.1 fL (81-99); Mean Platelet Vol. 9.1 fl (6.2-12.0); Monocyte% 5.1 % (0-10); NRBC Flagged by Analyzer 0 % (0-5); Neutrophil # 8.29 X10^3/uL (2.7-7.7); Neutrophil % 70.4 % (47-70); Platelet Count 302 K/mm3 (150-450); RBC Distribution Width SD 61.1 fl (35.1-43.9); Red Blood Count 3.35 M/mm3 (4.2-5.4); White Blood Count 11.8 K/mm3 (4.4-11.0)
[2022-06-12 04:47] LABS: ALB/GLOB Ratio 0.3 RATIO (0.9-2.4); AST(SGOT) 24 U/L (15-37); Alanine Aminotransfer ALT/SGPT 23 U/L (13-56); Albumin, Serum 1.2 g/dL (3.2-5.0); Alkaline Phosphatase 89 U/L (45-117); Anion Gap 4 (5-15); BUN 5 mg/dL (7-18); BUN/Creat Ratio 17.8 RATIO (10-20); Calcium,Total 6.3 mg/dL (8.5-10.1); Chloride 107 mmol/L (98-107); Creatinine, Serum 0.28 mg/dL (0.55-1.02); EST Glomerular Filtration Rate 252 mL/min (>60); Est Glom Filt Rate - Afr Amer 305 mL/min (>60); Estimated Creatinine Clearance 52.81 ml/min; Globulin 3.6 g/dL (2.2-4.2); Glucose 161 mg/dL (74-106); Magnesium 2.4 mg/dL (1.6-2.6); Phosphorus 2.2 mg/dL (2.5-4.9); Potassium 3.8 mmol/L (3.5-5.1); Protein, Total 4.8 g/dL (6.4-8.2); Sodium Level 137 mmol/L (136-145)
--- NOTE | 2022-06-12 06:57 | PN.CC_ITS ---
Assessment & Plan Assessment/Plan (1) Hemorrhagic shock: PLAN: Plan RECOMMENDATIONS: 1. Continue empiric antimicrobials along with antifungal therapy per ID recommendations. 2. Continue PPI therapy as ordered. 3. Continue to monitor blood counts and transfuse for hemoglobin greater than 7 g/dL. 4. Additional phosphorus repletion. 5. Continue to hold systemic anticoagulation. 6. Continue scheduled midodrine. 7. Continue to wean supplemental oxygen as tolerated for saturations greater than 90%. 8. Encourage incentive spirometer use and mobilize patient as tolerated. IMPRESSIONS: 1. Hemorrhagic shock The patient presented to the hospital after recently being admitted with COVID- 19 pneumonia with acute blood loss anemia and associated lethargy and weakness. She has been transfused blood products and will remain on vasopressor support to maintain a systolic blood pressure of 90 mmHg or greater. The patient did u ndergo upper endoscopy with intervention performed by gastroenterology. In addition to the aforementioned, she will remain on scheduled midodrine. Continue to monitor blood counts and transfuse if hemoglobin drops below 7 g/dL. Continue PPI therapy as ordered. 2. Acute hypoxemic respiratory failure The patient has been on supplemental oxygen following her discharge from the hospital recently for COVID-19 pneumonia. Her hospital course was complicated by Legionella pneumonia. 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 Accordingly, in light of her clinical decompensation, the patient was started on voriconazole. Infectious diseases is currently following to assist with medical management. Continue to wean supplemental oxygen to maintain saturations at or above 90%. Aspergillus antibodies are still pending. 3. Chronic atrial fibrillation on systemic anticoagulation In light of the patient's presenting anemia, plan to continue to hold Eliquis. In addition, continue to hold Cardizem over concerns for hypotension. 4. Hypophosphatemia Aggressive electrolyte repletion as ordered. Recheck levels in the morning. 5. Recent COVID-19 hospitalization/diabetes mellitus/hyperlipidemia/GERD Complicates care, management, recovery and prognosis. Continue PPI therapy as ordered. TIME: 33 minutes of critical care time, independent of procedures, was spent addressing the patient's hemorrhagic shock, acute hypoxemic respiratory failure, atrial fibrillation, review of all data and collaboration with the care team. Subjective Subjective The patient was seen and examined at the bedside this morning. Events from the last 24 hours have been reviewed. The patient is currently afebrile and maintaining appropriate oxygen saturations on room air. She remains on Levophed at 4 mcg/min to maintain hemodynamic stability. She is currently documented to be overall net +6.3 L for the hospitalization. Hemoglobin is stable at 9.5 g/dL. Phosphorus is low at 2.2. The patient underwent upper endoscopy yesterday which revealed reflux esophagitis and chronic gastritis with hemorrhage which was treated with a heater probe. No issues were identified by the overnight nursing staff. Objective Data Objective Data The patient's most recent lab work, culture data and imaging studies have all been personally reviewed. Surface echocardiogram from May 2022 demonstrated normal LV size and function with an ejection fraction of 60%. Aspergillus fumigatus was isolated from sputum dated May 26. Aspergillus antibodies are pending. Vital Signs: Vital Signs Temp Pulse Resp BP Pulse Ox O2 Del Method O2 Flow Rate 98.8 F 63 21 H 105/53 L 100 Room Air 2 06/12/22 00:00 06/12/22 06:00 06/12/22 06:00 06/12/22 06:00 06/12/22 06:00 06/12/22 06:00 06/11/22 16:45 FiO2 97 06/11/22 04:00 Oxygen Flow Rate (L/min) 2 Oxygen Delivery Method Room Air Weight: 146 lb 9.718 oz Body Mass Index (BMI) 21.9 Intake & Output: Intake and Output for Last 24 Hours 06/10/22 06/11/22 06/12/22 23:59 23:59 23:59 Intake Total 3695.2633 / 3700.8633 1624.91 / 1630.51 106.82 / 106.82 Output Total 1360 / 1360 1050 / 1200 425 / 425 Balance 2335.2633 / 2340.8633 574.91 / 430.51 -318.18 / -318.18 Medical Nutrition Assessment Dietitian: Malnutrition Criteria Met Start: 06/07/22 11:00 Freq: Status: Active Protocol: Document 06/11/22 12:29 RMA (Rec: 06/11/22 12:29 RMA [id number]) Nutrition Malnutrition Evidence of Malnutrition Exists Yes Malnutrition (severe): Acute Illness/Injury Evidenced By Suboptimal Energy Intake ( Severe),Weight Loss (Severe), Physical Changes (Moderate) Clinical Problem Acute Disease or Injury Related Malnutrition Etiology (severe) related to altered GI function and inadequate oral intake Signs/Symptoms as evidenced by 8.7% weight loss in <1 month 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 Will continue Ensure Clear 120 mL with meals as diet resumed . Will continue magic cup w/ lunch and ensure pudding with dinner as diet resumed. Adjust ONS as needed once intake established with Transitional diet. Lab / Micro Data Attestation: I reviewed the patient's lab results. Result Diagrams: 06/12/22 04:15 06/12/22 04:15 Labs: Laboratory Results - last 24 hr 06/06/22 16:23: Crossmatch See Detail 06/11/22 04:10: Phosphorus 1.6 L, Magnesium 1.3 L 06/11/22 08:44: POC Glucose 108 H 06/11/22 11:33: POC Glucose 97 06/11/22 12:52: Hgb 9.5 L 06/11/22 17:53: POC Glucose 91 06/11/22 21:14: POC Glucose 113 H 06/12/22 04:15: WBC 11.8 H, RBC 3.35 L, Hgb 9.5 L, Hct 29.5 L, MCV 88.1, MCH 28.4, MCHC 32.2, RDW Std Deviation 61.1 H, RDW Coeff of [place]ak 19.0 H, Plt Count 302, MPV 9.1, Immature Gran % (Auto) 2.200 H, Neut % (Auto) 70.4 H, Lymph % (Auto) 10.2 L, [place] % (Auto) 5.1, Eos % (Auto) 11.7 H, Baso % (Auto) 0.4, Absolute Neuts (auto) 8.3 H, Absolute Lymphs (auto) 1.20, Nucleated RBC % 0 06/12/22 04:15: Sodium 137, Potassium 3.8, Chloride 107, Carbon Dioxide 26.0, Anion Gap 4 L, BUN 5 L, Creatinine 0.28 L, Estim Creat Clear Calc 52.81, Est GFR (MDRD) Af Amer 305, Est GFR (MDRD) Non-Af 252, BUN/Creatinine Ratio 17.8, Glucose 161 H, Calcium 6.3 L*, Phosphorus 2.2 L, Magnesium 2.4, Total Bilirubin 0.30, AST 24, ALT 23, Alkaline Phosphatase 89, Total Protein 4.8 L, Albumin 1.2 L, Globulin 3.6, Albumin/Globulin Ratio 0.3 L Micro: Microbiology 06/06/22 14:42 Blood Culture (Wb) - Right Wrist Blood Culture - Final No growth in 5 days. 06/06/22 15:10 Blood Culture (Wb) - Right Wrist Blood Culture - Final No growth in 5 days. 06/08/22 14:00 Sputum, Expectorated/Coughed Gram Stain - Final 06/08/22 14:00 Sputum, Expectorated/Coughed Respiratory Culture - Preliminary Gram positive cathie Possible Fungus 06/08/22 13:59 Blood Culture (Wb) - Pic Blood Culture - Preliminary No growth in 48 hours. 06/08/22 08:00 Blood Culture (Wb) - Port Blood Culture - Preliminary No growth in 48 hours. 06/06/22 16:30 Urine Catheter - [place] Urine Culture - Final Enterobacter aerogenes Rhythm Strip Rhythm Strip: A-fib Rate: 98 Ectopy: None Physical Exam Const alert and no apparent distress General Appearance: cooperative and frail HEENT normocephalic and head/scalp atraumatic Eyes PERRL, EOMs intact bilaterally and conjunctivae normal Neck supple General: trachea midline Chest inspection of chest normal Resp Resp Narrative: Poor inspiratory effort Auscultation: diminished lung sounds; Negative for rales, rhonchi or wheezes Cardio regular rate, S1 normal heart sound and S2 normal heart sound GI normal to inspection, nondistended, normoactive bowel sounds Extremity no clubbing, cyanosis or edema Skin no rashes or lesions noted Neuro oriented x3, CN's II-XII intact bilaterally, moves all extremities and no focal motor deficits Psych Mood & Affect: flat affect Charges/Coding Procedures Hospitalists Procedures: 91213 Critial Care 1st Hr
[2022-06-12] MEDS: Ipratropium/Albuterol Sulfate 3 ML AMPUL.NEB INHALATION ×3 (07:43→19:19)
[2022-06-12] MEDS: Midodrine HCl 5 MG Tablet 15 MG PO ×3 (07:47→16:29)
[2022-06-12] MEDS: Sucralfate 1 GM Tablet PO ×4 (07:47→21:31)
[2022-06-12] MEDS: Insulin Lispro 100 UNIT/ML INSULN.PEN SC ×4 (07:52→21:37)
[2022-06-12] MEDS: LACTATED RINGERS 500 ML 999 ML IV (08:03)
[2022-06-12 09:24] LABS: Beta-2-Glycoprotein I IgA <9 (0-25); Beta-2-Glycoprotein I IgG <9 (0-20); Beta-2-Glycoprotein I IgM <9 (0-32)
--- NOTE | 2022-06-12 10:12 | PCM.PN.ID ---
Physical Exam Narrative Feeling better, no fever, no abd pain, coughing up some sputum Const alert and no apparent distress Resp normal air movement and clear to auscultation bilaterally Cardio regular rate and regular rhythm GI soft to palpation, non-tender and non-distended Skin no rashes or lesions noted ID ID: Route of nutrition/ use of supplements: [] Nutritional Intake: [] IV Site: [] [place] Catheter: [] Assessment & Plan Assessment/Plan (1) Hemorrhagic shock: PLAN: On empiric meropenem. On vori for aspergillus (+) sputum cx. Repeat sputum cx with fungus and GPR. Aspergillus Abs pending. Overall improving, wbc better, hgb improved. GI following. Ucx with less than 1k enterobacter. Remains on pressor. Will stop nallely. Will follow (2) Pneumonia:
[2022-06-12 11:45] LABS: Bedside Glucose 160 mg/dL (74-106)
--- NOTE | 2022-06-12 13:25 | PCM.PN.HOSP ---
Subjective Subjective Patient states she is feeling better overall. Remains off oxygen. Remains in normal sinus rhythm. White count continues to trend down. Unfortunately, still remains on 3 mcg of Levophed. Blood pressures were checked manually bilaterally and are consistent with Dinamap reads. Objective Data Objective Data Vital Signs: Vital Signs Temp Pulse Resp BP Pulse Ox O2 Del Method O2 Flow Rate 99.7 F H 72 22 H 94/57 L 94 Room Air 3 06/12/22 12:00 06/12/22 13:08 06/12/22 13:08 06/12/22 12:00 06/12/22 12:37 06/12/22 12:00 06/12/22 12:37 FiO2 97 06/11/22 04:00 Oxygen Flow Rate (L/min) 3 Oxygen Delivery Method Room Air Weight: 66.5 kg Body Mass Index (BMI) 21.9 Intake & Output: Intake and Output for Last 24 Hours 06/10/22 06/11/22 06/12/22 23:59 23:59 23:59 Intake Total 3695.2633 / 3700.8633 1624.91 / 1630.51 1277.97 / 1277.97 Output Total 1360 / 1360 1050 / 1200 425 / 425 Balance 2335.2633 / 2340.8633 574.91 / 430.51 852.97 / 852.97 Medical Nutrition Assessment Dietitian: Malnutrition Criteria Met Start: 06/07/22 11:00 Freq: Status: Active Protocol: Document 06/12/22 10:33 AG (Rec: 06/12/22 10:33 AG [id number]) Nutrition Malnutrition Evidence of Malnutrition Exists Yes Malnutrition (severe): Acute Illness/Injury Evidenced By Suboptimal Energy Intake ( Severe),Weight Loss (Severe), Physical Changes (Moderate) Clinical Problem Acute Disease or Injury Related Malnutrition Etiology (severe) related to altered GI function and inadequate oral intake Signs/Symptoms as evidenced by 8.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 Germain- will adjust to transitional diet (GI soft); 120mL ensure clear w/ meals for additional calories/protein if consumed. Lab / Micro Data Result Diagrams: 06/12/22 04:15 06/12/22 04:15 Labs: Laboratory Results - last 24 hr 06/08/22 08:00: Beta-2-GPI IgG Ab <9, Beta-2-GPI IgA Ab <9, Beta-2-GPI IgM Ab <9 06/11/22 08:44: POC Glucose 108 H 06/11/22 17:53: POC Glucose 91 06/11/22 21:14: POC Glucose 113 H 06/12/22 04:15: WBC 11.8 H, RBC 3.35 L, Hgb 9.5 L, Hct 29.5 L, MCV 88.1, MCH 28.4, MCHC 32.2, RDW Std Deviation 61.1 H, RDW Coeff of [place]ak 19.0 H, Plt Count 302, MPV 9.1, Immature Gran % (Auto) 2.200 H, Neut % (Auto) 70.4 H, Lymph % (Auto) 10.2 L, [place] % (Auto) 5.1, Eos % (Auto) 11.7 H, Baso % (Auto) 0.4, Absolute Neuts (auto) 8.3 H, Absolute Lymphs (auto) 1.20, Nucleated RBC % 0 06/12/22 04:15: Sodium 137, Potassium 3.8, Chloride 107, Carbon Dioxide 26.0, Anion Gap 4 L, BUN 5 L, Creatinine 0.28 L, Estim Creat Clear Calc 52.81, Est GFR (MDRD) Af Amer 305, Est GFR (MDRD) Non-Af 252, BUN/Creatinine Ratio 17.8, Glucose 161 H, Calcium 6.3 L*, Phosphorus 2.2 L, Magnesium 2.4, Total Bilirubin 0.30, AST 24, ALT 23, Alkaline Phosphatase 89, Total Protein 4.8 L, Albumin 1.2 L, Globulin 3.6, Albumin/Globulin Ratio 0.3 L 06/12/22 07:43: POC Glucose 160 H Micro: Microbiology 06/06/22 14:42 Blood Culture (Wb) - Right Wrist Blood Culture - Final No growth in 5 days. 06/06/22 15:10 Blood Culture (Wb) - Right Wrist Blood Culture - Final No growth in 5 days. 06/08/22 14:00 Sputum, Expectorated/Coughed Gram Stain - Final 06/08/22 14:00 Sputum, Expectorated/Coughed Respiratory Culture - Preliminary Gram positive cathie Possible Fungus 06/08/22 13:59 Blood Culture (Wb) - Pic Blood Culture - Preliminary No growth in 48 hours. 06/08/22 08:00 Blood Culture (Wb) - Port Blood Culture - Preliminary No growth in 48 hours. 06/06/22 16:30 Urine Catheter - [place] Urine Culture - Final Enterobacter aerogenes Rhythm Strip Rhythm Strip: A-fib Rate: 98 Ectopy: None Physical Exam Const alert, oriented x3 and no apparent distress Constitutional Narrative: Older, debilitated, white female sitting up in bed, continues to improve clinically, appears older than stated age, on room air, appears nontoxic and very pleasant General Appearance: well developed Orientation / Consciousness: awake HEENT normocephalic, head/scalp atraumatic and moist oral mucous membranes HEENT Narrative: Mallampati 2, no thrush Neck Neck Narrative: Left IJ in place-clean and dry Resp normal respiratory effort, no retractions, no use of accessory muscles and clear to auscultation bilaterally Resp Narrative: Diminished but clear Auscultation: Negative for crackles, rales, rhonchi or wheezes Cardio regular rate, regular rhythm, S1 normal heart sound, S2 normal heart sound, no murmurs, no rub, no gallops, no clicks and no JVD GI normal to inspection, nondistended, normoactive bowel sounds, soft to palpation, non-tender and non-distended; Negative for hepatosplenomegaly Extremity no clubbing, cyanosis or edema Extremity Narrative: 1+ bilateral lower extremity edema 2+ pedal pulses, trace hand edema, 2+ pedal pulses, no cyanosis or clubbing General Extremity: edema Neuro oriented x3, moves all extremities and no focal motor deficits Neuro Narrative: Marked generalized weakness Sensorium / Orientation: awake, alert, oriented to person, oriented to place and oriented to time Speech: speech normal Assessment & Plan Assessment/Plan (1) Acute upper gastrointestinal bleeding: (2) Hemorrhagic shock: (3) Acute respiratory failure with hypoxia: (4) Dehydration: (5) Hyponatremia: (6) Hypophosphatemia: (7) Acute blood loss anemia: (8) Hypotension: PLAN: Plan Hemorrhagic shock secondary to upper GI bleed -Hemoglobin on presentation was 6.1--> given 3 units of packed red blood cells -Hemoglobin had stabilized but now trending down again and has dropped a gram each day since Thursday -Continue to hold anticoagulation -Patient remains on low-dose Levophed at 3 mics --> manual blood pressures bilateral arms taken and confirm hypotension -Wean as able -Slight reduction of Levophed with fluid challenge -Cortisol level elevated as expected -Continue IV Protonix 40 mg push twice daily -EGD performed on 06/11/2022 and noted grade B reflux esophagitis, chronic gastritis with hemorrhage which was treated with heater probe, and nonbleeding duodenal diverticulum, a nonbleeding jejunal diverticulum, and 1 nonbleeding jejunal ulcer with no stigmata of bleeding--> biopsies taken -Octreotide drip restarted by GI--> continue until recommended otherwise -Carafate 1 g 4 times daily initiated -We will need discussed with GI when it is okay to restart anticoagulation for PAF Acute hypoxic respiratory failure -On room air with oxygen saturations 97% -Aspergillus grew on previous respiratory culture--> discussed with pulmonary medicine -Beta-2 glycoprotein antibody less than 9 -Galactomannan remains pending -Aspergillus antibodies remains pending -Blood cultures negative at 48 hours--> continue to monitor -Sputum culture growing gram-positive cathie and possible fungus -Continue voriconazole 4 mg/kg twice daily -Infectious diseases following-appreciate input -Leukocytosis continues to improve since the addition of voriconazole--> almost normalized at this point -Recent COVID-19 and Legionella pneumonia -Treatment has been completed for these -Meropenem has been discontinued by infectious disease -Pulmonary medicine following and appreciate input Acute on chronic anemia -Patient with bloody bowel movement this morning -Hemoglobin has stabilized at 9.5 -Infuse for less than 7 -EGD today -Continue to monitor -CBC in a.m. Hypokalemia - resolved Hypophosphatemia - improved and trending up but still low -Bolus given -Repeat in a.m. Hypomagnesemia - resolved Paroxysmal atrial fibrillation -Now in normal sinus rhythm -On Cardizem at baseline which is currently being held secondary to blood pressure -Restart when able and off pressors -Hold anticoagulation secondary to GI bleed DM-2 - a.m. blood sugar 165 -Continue sliding scale -Accu-Cheks -Hold home metformin Hypocalcemia -Serum calcium 6.1 however when corrected for albumin is normalized -Calcium given by critical care medicine -Albumin is 1.3 Hyperlipidemia -Continue atorvastatin Osteoporosis -Alendronate on hold -Restart on discharge DVT prophylaxis -SCDs -No chemoprophylaxis secondary to GI bleed CODE STATUS -Full code Charges/Coding Visit Charges Inpatient E&M: 27689 Subs Hosp L2
[2022-06-12] MEDS: Nystatin Powder 15gm Bottle 1 APPLIC TOPICAL ×2 (14:31→21:31)
[2022-06-12 16:56] LABS: Bedside Glucose 234 mg/dL (74-106)
[2022-06-12] MEDS: Atorvastatin Calcium 20 MG Tablet PO (21:31)
[2022-06-12 22:00] LABS: Bedside Glucose 162 mg/dL (74-106)
[2022-06-13] VITALS (38 sets, daily range): BP systolic 83–114; BP diastolic 40–83; PULSE 55–91; RESP 18–28; TEMP 36.1–37.8; O2SAT 90–99
[2022-06-13 00:06] LABS: Aspirgillus flavus Negative (Neg:<1:1); Aspirgillus fumigatus Negative (Neg:<1:1)
[2022-06-13 04:35] LABS: Absolute Lymphocyte Count 1.17 X10^3/uL (0.83-4.51); Absolute Neutrophil Count 9.3 X10^3/uL (2.0-7.7); Basophil# 0.03 X10^3/uL; Basophil% 0.2 % (0-1); Eosinophil# 0.93 X10^3/uL; Eosinophils% 7.5 % (0-5); Hematocrit 28.5 % (37-47); Hemoglobin 8.9 g/dL (12.0-15.0); Lymphocyte # 1.17 X10^3/ul (0.83-4.51); Lymphocyte % 9.4 % (19-41); Mean Corp Hgb Conc 31.2 g/dL (32-36); Mean Corpuscular Volume 89.6 fL (81-99); Mean Platelet Vol. 9.2 fl (6.2-12.0); Monocyte# 0.69 X10^3/uL; Monocyte% 5.6 % (0-10); NRBC Flagged by Analyzer 0 % (0-5); Neutrophil # 9.32 X10^3/uL (2.7-7.7); Neutrophil % 75.3 % (47-70); Platelet Count 323 K/mm3 (150-450); RBC Distribution Width CV 18.7 % (11.6-14.6); Red Blood Count 3.18 M/mm3 (4.2-5.4); White Blood Count 12.4 K/mm3 (4.4-11.0)
[2022-06-13 05:21] LABS: Anion Gap 5 (5-15); BUN 3 mg/dL (7-18); Calcium,Total 5.8 mg/dL (8.5-10.1); Chloride 104 mmol/L (98-107); Creatinine, Serum 0.23 mg/dL (0.55-1.02); EST Glomerular Filtration Rate 316 mL/min (>60); Est Glom Filt Rate - Afr Amer 382 mL/min (>60); Estimated Creatinine Clearance 52.81 ml/min; Glucose 159 mg/dL (74-106); Phosphorus 1.5 mg/dL (2.5-4.9); Potassium 3.8 mmol/L (3.5-5.1); Sodium Level 135 mmol/L (136-145)
[2022-06-13] MEDS: Ipratropium/Albuterol Sulfate 3 ML AMPUL.NEB INHALATION ×3 (06:39→19:10)
[2022-06-13] MEDS: Sucralfate 1 GM Tablet PO ×4 (06:44→22:02)
[2022-06-13] MEDS: Nystatin Powder 15gm Bottle 1 APPLIC TOPICAL ×3 (06:44→22:00)
--- NOTE | 2022-06-13 06:44 | PCM.PN.INT ---
Assessment & Plan Assessment/Plan (1) Hemorrhagic shock: PLAN: Plan RECOMMENDATIONS: 1. Continue antimicrobials along with antifungal therapy per ID recommendations. 2. Stop Levophed this morning and monitor patient clinically. 3. Continue PPI therapy as ordered. 4. Continue to monitor blood counts and transfuse for hemoglobin greater than 7 g/dL. 5. Additional phosphorus repletion. 6. Continue to hold systemic anticoagulation. 7. Continue scheduled midodrine. 8. Continue to wean supplemental oxygen as tolerated for saturations greater than 90%. 9. Aggressive physical therapy. IMPRESSIONS: 1. Hemorrhagic shock The patient presented to the hospital after recently being admitted with COVID-19 pneumonia with acute blood loss anemia and associated lethargy and weakness. She has been transfused blood products with blood counts remaining stable. Plan to discontinue Levophed this morning and monitor the patient clinically. The patient did undergo upper endoscopy with intervention performed by gastroenterology. In addition to the aforementioned, she will remain on scheduled midodrine. Continue to monitor blood counts and transfuse if hemoglobin drops below 7 g/dL. Continue PPI therapy as ordered. 2. Acute hypoxemic respiratory failure The patient has been on supplemental oxygen following her discharge from the hospital recently for COVID-19 pneumonia. Her hospital course was complicated by Legionella pneumonia. 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 The patient remains on antifungal therapy per ID recommendations. Continue to wean supplemental oxygen to maintain saturations at or above 90%. Aspergillus antibodies are still pending. 3. Chronic atrial fibrillation on systemic anticoagulation In light of the patient's presenting anemia, plan to continue to hold Eliquis. In addition, continue to hold Cardizem over concerns for hypotension. 4. Hypophosphatemia Aggressive electrolyte repletion as ordered. Recheck levels in the morning. 5. Recent COVID-19 hospitalization/diabetes mellitus/hyperlipidemia/GERD Complicates care, management, recovery and prognosis. Continue PPI therapy as ordered. TIME: 31 minutes of critical care time, independent of procedures, was spent addressing the patient's hemorrhagic shock, acute hypoxemic respiratory failure, atrial fibrillation, review of all data and collaboration with the care team. Subjective Subjective The patient was seen and examined at the bedside this morning. Events from the last 24 hours have been reviewed. The patient is afebrile and maintaining appropriate oxygen saturations on 2 L/min via nasal cannula. The patient was able to be weaned off of Levophed completely yesterday for approximately 7 hours. However, overnight, when the patient was sleeping her pressures dropped into the 70s and her Levophed was subsequently restarted. Nevertheless, according to nursing, the patient was mentating appropriately at that time. The patient is currently documented to be overall net +7.2 L for the hospitalization. Phosphorus is again low at 1.5. Objective Data Objective Data The patient's most recent lab work, culture data and imaging studies have all been personally reviewed. Surface echocardiogram from May 2022 demonstrated normal LV size and function with an ejection fraction of 60%. Aspergillus fumigatus was isolated from sputum dated May 26. Aspergillus antibodies are pending. Fungal cultures are pending. Vital Signs: Vital Signs Temp Pulse Resp BP Pulse Ox O2 Del Method O2 Flow Rate 100.0 F H 77 19 H 90/47 L 93 Nasal Cannula 2 06/13/22 05:00 06/13/22 06:40 06/13/22 06:40 06/13/22 05:00 06/13/22 06:40 06/13/22 06:40 06/13/22 06:40 FiO2 97 06/11/22 04:00 Oxygen Flow Rate (L/min) 2 Oxygen Delivery Method Nasal Cannula Weight: 148 lb 12.992 oz Body Mass Index (BMI) 21.9 Intake & Output: Intake and Output for Last 24 Hours 06/11/22 06/12/22 06/13/22 23:59 23:59 23:59 Intake Total 1624.91 / 1630.51 1917.62 / 1919.97 44.13 / 44.13 Output Total 1050 / 1200 1075 / 1200 335 / 335 Balance 574.91 / 430.51 842.62 / 719.97 -290.87 / -290.87 Medical Nutrition Assessment Dietitian: Malnutrition Criteria Met Start: 06/07/22 11:00 Freq: Status: Active Protocol: Document 06/12/22 10:33 AG (Rec: 06/12/22 10:33 AG [id number]) Nutrition Malnutrition Evidence of Malnutrition Exists Yes Malnutrition (severe): Acute Illness/Injury Evidenced By Suboptimal Energy Intake ( Severe),Weight Loss (Severe), Physical Changes (Moderate) Clinical Problem Acute Disease or Injury Related Malnutrition Etiology (severe) related to altered GI function and inadequate oral intake Signs/Symptoms as evidenced by 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 Germain- will adjust to transitional diet (GI soft); 120mL ensure clear w/ meals for additional calories/protein if consumed. Lab / Micro Data Attestation: I reviewed the patient's lab results. Result Diagrams: 06/13/22 04:20 06/13/22 04:20 Labs: Laboratory Results - last 24 hr 06/08/22 08:00: Beta-2-GPI IgG Ab <9, Beta-2-GPI IgA Ab <9, Beta-2-GPI IgM Ab <9 06/12/22 07:43: POC Glucose 160 H 06/12/22 16:23: POC Glucose 234 H 06/12/22 21:36: POC Glucose 162 H 06/13/22 04:20: WBC 12.4 H, RBC 3.18 L, Hgb 8.9 L, Hct 28.5 L, MCV 89.6, MCH 28.0, MCHC 31.2 L, RDW Std Deviation 62.0 H, RDW Coeff of Palak 18.7 H, Plt Count 323, MPV 9.2, Immature Gran % (Auto) 2.000 H, Neut % (Auto) 75.3 H, Lymph % (Auto) 9.4 L, [place] % (Auto) 5.6, Eos % (Auto) 7.5 H, Baso % (Auto) 0.2, Absolute Neuts (auto) 9.3 H, Absolute Lymphs (auto) 1.17, Nucleated RBC % 0 06/13/22 04:20: Sodium 135 L, Potassium 3.8, Chloride 104, Carbon Dioxide 26.0, Anion Gap 5, BUN 3 L, Creatinine 0.23 L, Estim Creat Clear Calc 52.81, Est GFR (MDRD) Af Amer 382, Est GFR (MDRD) Non-Af 316, BUN/Creatinine Ratio 13.0, Glucose 159 H, Calcium 5.8 L*, Phosphorus 1.5 L Micro: Microbiology 06/06/22 14:42 Blood Culture (Wb) - Right Wrist Blood Culture - Final No growth in 5 days. 06/06/22 15:10 Blood Culture (Wb) - Right Wrist Blood Culture - Final No growth in 5 days. 06/08/22 14:00 Sputum, Expectorated/Coughed Gram Stain - Final 06/08/22 14:00 Sputum, Expectorated/Coughed Respiratory Culture - Preliminary Gram positive cathie Possible Fungus 06/08/22 13:59 Blood Culture (Wb) - Pic Blood Culture - Preliminary No growth in 48 hours. 06/08/22 08:00 Blood Culture (Wb) - Port Blood Culture - Preliminary No growth in 48 hours. 06/06/22 16:30 Urine Catheter - [place] Urine Culture - Final Enterobacter aerogenes Rhythm Strip Rhythm Strip: A-fib Rate: 98 Ectopy: None Physical Exam Const alert and no apparent distress General Appearance: cooperative and frail HEENT normocephalic and head/scalp atraumatic Eyes PERRL, EOMs intact bilaterally and conjunctivae normal Neck supple General: trachea midline Chest inspection of chest normal Resp Resp Narrative: Poor inspiratory effort Auscultation: diminished lung sounds; Negative for rales, rhonchi or wheezes Cardio regular rate, S1 normal heart sound and S2 normal heart sound GI normal to inspection, nondistended, normoactive bowel sounds Extremity no clubbing, cyanosis or edema Skin no rashes or lesions noted Neuro oriented x3, CN's II-XII intact bilaterally, moves all extremities and no focal motor deficits Psych Mood & Affect: flat affect Charges/Coding Procedures Hospitalists Procedures: 17778 Critial Care 1st Hr
[2022-06-13] MEDS: Insulin Lispro 100 UNIT/ML INSULN.PEN SC ×3 (06:49→22:03)
[2022-06-13 07:05] LABS: Bedside Glucose 152 mg/dL (74-106)
[2022-06-13 07:10] LABS: Bedside Glucose 156 mg/dL (74-106)
--- NOTE | 2022-06-13 07:40 | RAD_ITS ---
STUDY: X-RAY CHEST REASON FOR EXAM: Female, 72 years old. SOB hemorrhagic shock, upper GI bleed. Pneumonia TECHNIQUE: Single AP portable view of the chest. COMPARISON: June 06, 2022 FINDINGS: There are monitoring devices. There is a central catheter on the left extending to the superior vena cava. There are worsening moderate mid and lower lung increased opacities. There is no demonstrated pleural abnormality. Normal size heart. Normal mediastinum and ann. Normal visualized pulmonary arteries. Normal visualized aortic arch and descending thoracic aorta. There are diffuse degenerative changes of the visualized thoracic spine. Normal visualized ribs, clavicles, and shoulders. There is no demonstrated abnormality of the visualized soft tissue structures of the upper abdomen. RAD/Chest 1 View (Portable) IMPRESSION: Worsening bilateral pneumonia or edema. Electronically Signed: Isaak Lockhart MD at 8:23 EDT ,
[2022-06-13] MEDS: Midodrine HCl 5 MG Tablet 15 MG PO ×3 (08:08→16:37)
--- NOTE | 2022-06-13 09:18 | CASEMGMT ---
Physician feels patient will be ready for discharge over the weekend. SW spoke with Jessica in TCU and patient can go to TCU over the weekend. SW will place a green sheet on patient's chart. Plan: d/c to [facility] TCU under skilled level of care. Erin MARTINEZ
[2022-06-13 10:44] LABS: Bacteria 0 SEEN /hpf (None Seen); Mucous, Urine 0 SEEN /hpf (<or=2+); Red Blood Cells-Urine 0 SEEN /hpf (0-5); Squamous Epithelial Cells - UA 0 SEEN /hpf (5-10)
[2022-06-13 10:50] LABS: Color, Urine Yellow (Yellow); Glucose, Dipstick Normal (Normal); Ketone-Dipstick Negative (Negative); Leukocyte Esterase-Dipstick 25 /ul (Negative); Nitrite-Dipstick Negative (Negative); Occult Blood-Urine 50 /ul (Negative); Protein-Dipstick 15 mg/dl (Negative); Specific Gravity, Urine 1.015 (1.002-1.030); Urine Bilirubin Dipstick Negative (Negative); Urine Clarity Clear (Clear); Urine Urobilinogen Normal (Normal)
[2022-06-13 10:57] LABS: White Blood Cells 5-10 SEEN /hpf (0-5); Yeast-Urine 1+ /hpf (None Seen)
[2022-06-13] MEDS: 0.9% Saline Lock 10 ML Syringe IV ×2 (11:42→16:38)
[2022-06-13 12:00] LABS: Bedside Glucose 146 mg/dL (74-106)
--- NOTE | 2022-06-13 12:15 | PCM.PN.HOSP ---
Subjective Subjective Some low-grade temperature elevations overnight at about 100 with T-max in the last 24 hours being 100.1. Levophed was discontinued this morning. No complaints currently. Objective Data Objective Data Vital Signs: Vital Signs Temp Pulse Resp BP Pulse Ox O2 Del Method O2 Flow Rate 100.0 F H 81 24 H 94/49 L 94 Nasal Cannula 2 06/13/22 10:00 06/13/22 10:00 06/13/22 10:00 06/13/22 10:00 06/13/22 10:00 06/13/22 10:00 06/13/22 10:00 FiO2 97 06/11/22 04:00 Oxygen Flow Rate (L/min) 2 Oxygen Delivery Method Nasal Cannula Weight: 67.5 kg Body Mass Index (BMI) 21.9 Intake & Output: Intake and Output for Last 24 Hours 06/11/22 06/12/22 06/13/22 23:59 23:59 23:59 Intake Total 1624.91 / 1630.51 1917.62 / 1919.97 160.13 / 160.13 Output Total 1050 / 1200 1075 / 1200 485 / 485 Balance 574.91 / 430.51 842.62 / 719.97 -324.87 / -324.87 Medical Nutrition Assessment Dietitian: Malnutrition Criteria Met Start: 06/07/22 11:00 Freq: Status: Active Protocol: Document 06/13/22 09:20 AG (Rec: 06/13/22 09:20 AG [id number]) Nutrition Malnutrition Evidence of Malnutrition Exists Yes Malnutrition (severe): Acute Illness/Injury Evidenced By Suboptimal Energy Intake ( Severe),Weight Loss (Severe), Physical Changes (Moderate) Clinical Problem Acute Disease or Injury Related Malnutrition Etiology (severe) related to altered GI function and inadequate oral intake Signs/Symptoms as evidenced by 8.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 Germain- will adjust to regular, low fiber diet; magic cup w/ lunch for additional calories/ protein if consumed Lab / Micro Data Result Diagrams: 06/13/22 04:20 06/13/22 04:20 Labs: Laboratory Results - last 24 hr 06/12/22 11:28: POC Glucose 152 H 06/12/22 16:23: POC Glucose 234 H 06/12/22 21:36: POC Glucose 162 H 06/13/22 04:20: WBC 12.4 H, RBC 3.18 L, Hgb 8.9 L, Hct 28.5 L, MCV 89.6, MCH 28.0, MCHC 31.2 L, RDW Std Deviation 62.0 H, RDW Coeff of Palak 18.7 H, Plt Count 323, MPV 9.2, Immature Gran % (Auto) 2.000 H, Neut % (Auto) 75.3 H, Lymph % (Auto) 9.4 L, [place] % (Auto) 5.6, Eos % (Auto) 7.5 H, Baso % (Auto) 0.2, Absolute Neuts (auto) 9.3 H, Absolute Lymphs (auto) 1.17, Nucleated RBC % 0 06/13/22 04:20: Sodium 135 L, Potassium 3.8, Chloride 104, Carbon Dioxide 26.0, Anion Gap 5, BUN 3 L, Creatinine 0.23 L, Estim Creat Clear Calc 52.81, Est GFR (MDRD) Af Amer 382, Est GFR (MDRD) Non-Af 316, BUN/Creatinine Ratio 13.0, Glucose 159 H, Calcium 5.8 L*, Phosphorus 1.5 L 06/13/22 06:49: POC Glucose 156 H 06/13/22 10:30: Urine Color Yellow, Urine Clarity Clear, Urine pH 6.0, Ur Specific [place] 1.015, Urine Protein 15 H, Urine Glucose (UA) Normal, Urine Ketones Negative, Urine Occult Blood 50 H, Urine Nitrite Negative, Urine Bilirubin Negative, Urine Urobilinogen Normal, Ur Leukocyte Esterase 25 H, Urine RBC 0 SEEN, Urine WBC 5-10 SEEN, Ur Squamous Epith Cells 0 SEEN, Urine Bacteria 0 SEEN, Urine Mucus 0 SEEN, Urine Yeast 1+ 06/13/22 11:39: POC Glucose 146 H Micro: Microbiology 06/08/22 13:59 Blood Culture (Wb) - Pic Blood Culture - Preliminary 06/06/22 14:42 Blood Culture (Wb) - Right Wrist Blood Culture - Final No growth in 5 days. 06/06/22 15:10 Blood Culture (Wb) - Right Wrist Blood Culture - Final No growth in 5 days. 06/08/22 14:00 Sputum, Expectorated/Coughed Gram Stain - Final 06/08/22 14:00 Sputum, Expectorated/Coughed Respiratory Culture - Preliminary Gram positive cathie Possible Fungus 06/08/22 08:00 Blood Culture (Wb) - Port Blood Culture - Preliminary No growth in 48 hours. 06/06/22 16:30 Urine Catheter - [place] Urine Culture - Final Enterobacter aerogenes Radiography Diagnostic Testing: Radiology Impression Chest X-Ray 06/13/22 07:40 IMPRESSION: Worsening bilateral pneumonia or edema. Electronically Signed: Isaak Lockhart MD at 8:23 EDT , Rhythm Strip Rhythm Strip: A-fib Rate: 98 Ectopy: None Physical Exam Const alert, oriented x3 and no apparent distress Constitutional Narrative: Older, debilitated, white female sitting up in bed, continues to improve clinically however remains on some supplemental oxygen at 2 L and blood pressures remain soft, appears older than stated age General Appearance: well developed Orientation / Consciousness: awake HEENT normocephalic, head/scalp atraumatic and moist oral mucous membranes Neck Neck Narrative: Left IJ in place-clean and dry Resp normal respiratory effort, no retractions, no use of accessory muscles and clear to auscultation bilaterally Resp Narrative: Diminished but clear Auscultation: Negative for crackles, rales, rhonchi or wheezes Cardio regular rate, regular rhythm, S1 normal heart sound, S2 normal heart sound, no murmurs, no rub, no gallops, no clicks and no JVD GI normal to inspection, nondistended, normoactive bowel sounds, soft to palpation, non-tender and non-distended; Negative for hepatosplenomegaly Extremity Extremity Narrative: Trace bilateral lower extremity edema 2+ pedal pulses, trace hand edema, no cyanosis or clubbing General Extremity: edema Skin no rashes or lesions noted, skin turgor normal, no jaundice, no petechiae and no mottling Skin Narrative: Pale skin with scattered ecchymosis, left IJ in place-dressing is clean dry and intact General Skin Exam: no breakdown Neuro oriented x3, moves all extremities and no focal motor deficits Neuro Narrative: Marked generalized weakness Sensorium / Orientation: awake, alert, oriented to person, oriented to place and oriented to time Speech: speech normal Assessment & Plan Assessment/Plan (1) Acute upper gastrointestinal bleeding: (2) Hemorrhagic shock: (3) Acute respiratory failure with hypoxia: (4) Dehydration: (5) Hyponatremia: (6) Hypophosphatemia: (7) Acute blood loss anemia: (8) Hypotension: PLAN: Plan Hemorrhagic shock secondary to upper GI bleed -Hemoglobin on presentation was 6.1--> given 3 units of packed red blood cells -Hemoglobin has stabilized -Off pressors -Per discussion with GI okay to restart Eliquis today -If remains stable will discontinue octreotide drip tomorrow -Check a.m. CBC -Continue IV Protonix 40 mg push twice daily -EGD performed on 06/11/2022 and noted grade B reflux esophagitis, chronic gastritis with hemorrhage which was treated with heater probe, and nonbleeding duodenal diverticulum, a nonbleeding jejunal diverticulum, and 1 nonbleeding jejunal ulcer with no stigmata of bleeding--> biopsies taken -Continue octreotide drip as above -Carafate 1 g 4 times daily initiated Acute hypoxic respiratory failure -Patient fluctuates between needing 2 L at night to no oxygen -Aspergillus grew on previous respiratory culture--> discussed with pulmonary medicine -Beta-2 glycoprotein antibody less than 9 -Galactomannan remains pending -Aspergillus antibodies remains pending -Blood cultures negative at 48 hours--> continue to monitor -Sputum culture growing gram-positive cathie and possible fungus -Continue voriconazole 4 mg/kg twice daily--> will need plan for discharge as patient is possibly going to be transferred to TCU over the weekend -Infectious diseases following-appreciate input -Leukocytosis continues to improve since the addition of voriconazole--> almost normalized at this point -Recent COVID-19 and Legionella pneumonia -Treatment has been completed for these -Pulmonary medicine following and appreciate input Acute on chronic anemia -Patient with bloody bowel movement this morning -Hemoglobin has stabilized at 8.9 -Infuse for less than 7 -Continue to monitor -CBC in a.m. Hypokalemia - resolved Hypophosphatemia -Low again today -Bolus given -Repeat in a.m. Paroxysmal atrial fibrillation -Now in normal sinus rhythm -On Cardizem at baseline which is currently being held secondary to blood pressure -Restart when able -Restart Eliquis today per discussion with GI DM-2 - a.m. blood sugar 159 -Continue sliding scale -Accu-Cheks -Hold home metformin Hypocalcemia -Serum calcium 5.9 however when corrected for albumin is normalized -Calcium given by critical care medicine -Albumin is 1.2 Hyperlipidemia -Continue atorvastatin Osteoporosis -Alendronate on hold -Restart on discharge DVT prophylaxis -SCDs -No chemoprophylaxis secondary to GI bleed CODE STATUS -Full code Disposition: -Possible discharge to transitional care unit over the weekend if patient remains stable Charges/Coding Visit Charges Inpatient E&M: 72027 Subs Hosp L2
--- NOTE | 2022-06-13 13:36 | PCM.PN.ID ---
Physical Exam Narrative Feeling better, off pressors, breathing improved, no fever Const alert and no apparent distress Resp normal air movement and clear to auscultation bilaterally Cardio regular rate and regular rhythm GI soft to palpation, non-tender and non-distended Extremity General Extremity: Negative for edema Skin no rashes or lesions noted ID ID: Route of nutrition/ use of supplements: [] Nutritional Intake: [] IV Site: [] [place] Catheter: [] Assessment & Plan Assessment/Plan (1) Hemorrhagic shock: PLAN: Completed course of empiric meropenem. On vori for aspergillus (+) sputum cx. Repeat sputum cx with fungus and GPR. Aspergillus Abs pending. Overall improving, wbc better, hgb improved. Off pressor. Will change to po vori. Course started 06/08/22, plan at this point will be for 8-12 weeks of therapy (12 week stop date would be 08/31/22). Will follow (2) Pneumonia:
[2022-06-13] MEDS: APIXABAN 5 MG TABLET PO ×2 (14:01→22:01)
[2022-06-13 17:06] LABS: Bedside Glucose 186 mg/dL (74-106)
[2022-06-13] MEDS: Voriconazole 200 MG Tablet PO (22:01)
[2022-06-13] MEDS: Atorvastatin Calcium 20 MG Tablet PO (22:01)
[2022-06-13 22:46] LABS: Bedside Glucose 154 mg/dL (74-106)
[2022-06-14] VITALS (31 sets, daily range): BP systolic 87–118; BP diastolic 47–74; PULSE 57–122; RESP 18–27; TEMP 35.9–37.1; O2SAT 90–99
[2022-06-14 04:05] LABS: Absolute Lymphocyte Count 1.11 X10^3/uL (0.83-4.51); Absolute Neutrophil Count 8.3 X10^3/uL (2.0-7.7); Basophil# 0.04 X10^3/uL; Basophil% 0.4 % (0-1); Eosinophil# 0.66 X10^3/uL; Hematocrit 26.1 % (37-47); Hemoglobin 8.1 g/dL (12.0-15.0); Lymphocyte # 1.11 X10^3/ul (0.83-4.51); Lymphocyte % 10.1 % (19-41); Mean Corpuscular Hgb 27.6 pg (27.0-32.0); Mean Corpuscular Volume 89.1 fL (81-99); Mean Platelet Vol. 9.1 fl (6.2-12.0); Monocyte# 0.65 X10^3/uL; Monocyte% 5.9 % (0-10); NRBC Flagged by Analyzer 0 % (0-5); Neutrophil % 75.6 % (47-70); Platelet Count 321 K/mm3 (150-450); RBC Distribution Width CV 18.7 % (11.6-14.6); RBC Distribution Width SD 61.4 fl (35.1-43.9); Red Blood Count 2.93 M/mm3 (4.2-5.4)
[2022-06-14 04:32] LABS: Phosphorus 1.7 mg/dL (2.5-4.9)
[2022-06-14 04:33] LABS: Anion Gap 4 (5-15); BUN 4 mg/dL (7-18); BUN/Creat Ratio 15.3 RATIO (10-20); Calcium,Total 5.7 mg/dL (8.5-10.1); Chloride 106 mmol/L (98-107); Creatinine, Serum 0.26 mg/dL (0.55-1.02); EST Glomerular Filtration Rate 274 mL/min (>60); Est Glom Filt Rate - Afr Amer 332 mL/min (>60); Estimated Creatinine Clearance 52.81 ml/min; Glucose 137 mg/dL (74-106); Magnesium 1.8 mg/dL (1.6-2.6); Potassium 3.8 mmol/L (3.5-5.1); Sodium Level 138 mmol/L (136-145)
[2022-06-14] MEDS: Sucralfate 1 GM Tablet PO ×4 (06:01→21:39)
[2022-06-14] MEDS: Nystatin Powder 15gm Bottle 1 APPLIC TOPICAL ×2 (06:01→21:39)
[2022-06-14] MEDS: Midodrine HCl 5 MG Tablet 15 MG PO ×3 (08:24→16:02)
[2022-06-14] MEDS: CHLORHEXIDINE GLUC 2% CLOTH 1 EACH TOWELETTE TOPICAL (08:24)
[2022-06-14] MEDS: Voriconazole 200 MG Tablet PO ×2 (08:25→21:39)
[2022-06-14] MEDS: Pantoprazole Sodium 40 MG Tablet PO ×2 (08:25→21:39)
[2022-06-14] MEDS: APIXABAN 5 MG TABLET PO ×2 (08:25→21:39)
[2022-06-14] MEDS: Na Biphos/Potassium Phosphate PACKET 1 PACKET PO ×2 (08:25→21:39)
--- NOTE | 2022-06-14 08:46 | NURSING ---
Oxygen level was at 78% on RA patient given adequate time to recover before placing on 2L NC.
--- NOTE | 2022-06-14 10:21 | PN.CC_ITS ---
Assessment & Plan Assessment/Plan (1) Hemorrhagic shock: PLAN: 1.??Hemorrhagic shock The patient presented to the hospital after recently being admitted with COVID- 19 pneumonia with acute blood loss anemia and associated lethargy and weakness. She has been transfused blood products with blood counts remaining stable. Plan to discontinue Levophed this morning and monitor the patient clinically. The patient did undergo upper endoscopy with intervention performed by gastroenterology.? In addition to the aforementioned, she will remain on scheduled midodrine. Continue to monitor blood counts and transfuse if hemoglobin drops below 7 g/dL but that has not happened so far. She remains clinically stable at this point and will likely be transitioned out of ICU tomorrow. (2) Pneumonia: PLAN: The patient has been on supplemental oxygen following her discharge from the hospital recently for COVID-19 pneumonia.? Her hospital course was complicated by Legionella pneumonia.? 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 The patient remains on antifungal therapy per ID recommendations. Continue to wean supplemental oxygen to maintain saturations at or above 90%.? Aspergillus antibodies are still pending. Follow antibody results. Subjective Subjective Patient seen and examined at bedside. No changes in clinical condition. Remains off vasopressors. Remains on 2LPM nasal cannula. No current evidence of bleeding. Objective Data Objective Data The patient's most recent lab work, culture data and imaging studies have all been personally reviewed.? Surface echocardiogram from May 2022 demonstrated normal LV size and function with an ejection fraction of 60%. Vital Signs: Vital Signs Temp Pulse Resp BP Pulse Ox O2 Del Method O2 Flow Rate 37.1 C 113 H 27 H 103/64 90 Nasal Cannula 2 06/14/22 08:00 06/14/22 10:00 06/14/22 10:00 06/14/22 10:00 06/14/22 10:00 06/14/22 10:00 06/14/22 10:00 FiO2 97 06/11/22 04:00 Oxygen Flow Rate (L/min) 2 Oxygen Delivery Method Nasal Cannula Weight: 69.8 kg Body Mass Index (BMI) 21.9 Intake & Output: Intake and Output for Last 24 Hours 06/12/22 06/13/22 06/14/22 23:59 23:59 23:59 Intake Total 1917.62 / 1919.97 1488.4633 / 1488.4633 803.13 / 803.13 Output Total 1075 / 1200 985 / 985 400 / 400 Balance 842.62 / 719.97 503.4633 / 503.4633 403.13 / 403.13 Medical Nutrition Assessment Dietitian: Malnutrition Criteria Met Start: 06/07/22 11:00 Freq: Status: Active Protocol: Document 06/13/22 09:20 AG (Rec: 06/13/22 09:20 [id number]) Nutrition Malnutrition Evidence of Malnutrition Exists Yes Malnutrition (severe): Acute Illness/Injury Evidenced By Suboptimal Energy Intake ( Severe),Weight Loss (Severe), Physical Changes (Moderate) Clinical Problem Acute Disease or Injury Related Malnutrition Etiology (severe) related to altered GI function and inadequate oral intake Signs/Symptoms as evidenced by 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 Germain- will adjust to regular, low fiber diet; magic cup w/ lunch for additional calories/ protein if consumed Lab / Micro Data Result Diagrams: 06/14/22 04:00 06/14/22 04:00 Labs: Laboratory Results - last 24 hr 06/08/22 08:00: Miscellaneous Test 06/13/22 10:30: Urine Color Yellow, Urine Clarity Clear, Urine pH 6.0, Ur Spe cific [place] 1.015, Urine Protein 15 H, Urine Glucose (UA) Normal, Urine Ket ones Negative, Urine Occult Blood 50 H, Urine Nitrite Negative, Urine Bilirubin Negative, Urine Urobilinogen Normal, Ur Leukocyte Esterase 25 H, Urine RBC 0 SEEN, Urine WBC 5-10 SEEN, Ur Squamous Epith Cells 0 SEEN, Urine Bacteria 0 SEEN, Urine Mucus 0 SEEN, Urine Yeast 1+ 06/13/22 11:39: POC Glucose 146 H 06/13/22 16:34: POC Glucose 186 H 06/13/22 22:03: POC Glucose 154 H 06/14/22 04:00: WBC 11.0, RBC 2.93 L, Hgb 8.1 L, Hct 26.1 L, MCV 89.1, MCH 27.6, MCHC 31.0 L, RDW Std Deviation 61.4 H, RDW Coeff of [place] 18.7 H, Plt Count 321, MPV 9.1, Immature Gran % (Auto) 2.000 H, Neut % (Auto) 75.6 H, Lymph % (Auto) 10.1 L, [place] % (Auto) 5.9, Eos % (Auto) 6.0 H, Baso % (Auto) 0.4, Absolute Neuts (auto) 8.3 H, Absolute Lymphs (auto) 1.11, Nucleated RBC % 0 06/14/22 04:00: Sodium 138, Potassium 3.8, Chloride 106, Carbon Dioxide 28.0, Anion Gap 4 L, BUN 4 L, Creatinine 0.26 L, Estim Creat Clear Calc 52.81, Est GFR (MDRD) Af Amer 332, Est GFR (MDRD) Non-Af 274, BUN/Creatinine Ratio 15.3, Glucose 137 H, Calcium 5.7 L*, Magnesium 1.8 06/14/22 04:00: Phosphorus 1.7 L Micro: Microbiology 06/08/22 13:59 Blood Culture (Wb) - Pic Blood Culture - Preliminary 06/08/22 08:00 Blood Culture (Wb) - Port Blood Culture - Preliminary No growth in 5 days. 06/06/22 14:42 Blood Culture (Wb) - Right Wrist Blood Culture - Final No growth in 5 days. 06/06/22 15:10 Blood Culture (Wb) - Right Wrist Blood Culture - Final No growth in 5 days. 06/08/22 14:00 Sputum, Expectorated/Coughed Gram Stain - Final 06/08/22 14:00 Sputum, Expectorated/Coughed Respiratory Culture - Preliminary Gram positive cathie Possible Fungus 06/06/22 16:30 Urine Catheter - [place] Urine Culture - Final Enterobacter aerogenes Rhythm Strip Rhythm Strip: A-fib Rate: 98 Ectopy: None Physical Exam Narrative Feeling better, off pressors, breathing improved, no fever Const alert and no apparent distress Resp normal air movement and clear to auscultation bilaterally Cardio regular rate and regular rhythm GI soft to palpation, non-tender and non-distended Extremity General Extremity: Negative for edema Skin no rashes or lesions noted Charges/Coding Visit Charges Inpatient E&M: 31780 Subs Hosp L3
[2022-06-14 11:40] LABS: Bedside Glucose 146 mg/dL (74-106)
--- NOTE | 2022-06-14 11:57 | PCM.PN.HOSP ---
Subjective Subjective Patient denies any overnight issues. Remains on oxygen at 2 to 4 L. Complains of intermittent cough however overall is improving. Chest congestion is much improved. Patient is having some urinary retention since her [place] was removed yesterday. Likely related to her prolonged [place] use. Remains off pressors. Anticipate transition tomorrow to transitional care unit as long as she remains stable. Objective Data Objective Data Vital Signs: Vital Signs Temp Pulse Resp BP Pulse Ox O2 Del Method O2 Flow Rate 98.7 F 122 H 23 H 87/47 L 90 Nasal Cannula 2 06/14/22 08:00 06/14/22 11:30 06/14/22 11:00 06/14/22 11:00 06/14/22 11:00 06/14/22 11:42 06/14/22 11:42 FiO2 97 06/11/22 04:00 Oxygen Flow Rate (L/min) 2 Oxygen Delivery Method Nasal Cannula Weight: 69.8 kg Body Mass Index (BMI) 21.9 Intake & Output: Intake and Output for Last 24 Hours 06/12/22 06/13/22 06/14/22 23:59 23:59 23:59 Intake Total 1917.62 / 1919.97 1488.4633 / 1488.4633 803.13 / 803.13 Output Total 1075 / 1200 985 / 985 400 / 400 Balance 842.62 / 719.97 503.4633 / 503.4633 403.13 / 403.13 Medical Nutrition Assessment Dietitian: Malnutrition Criteria Met Start: 06/07/22 11:00 Freq: Status: Active Protocol: Document 06/13/22 09:20 (Rec: 06/13/22 09:20 [id number]) Nutrition Malnutrition Evidence of Malnutrition Exists Yes Malnutrition (severe): Acute Illness/Injury Evidenced By Suboptimal Energy Intake ( Severe),Weight Loss (Severe), Physical Changes (Moderate) Clinical Problem Acute Disease or Injury Related Malnutrition Etiology (severe) related to altered GI function and inadequate oral intake Signs/Symptoms as evidenced 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 Germain- will adjust to regular, low fiber diet; magic cup w/ lunch for additional calories/ protein if consumed Lab / Micro Data Result Diagrams: 06/14/22 04:00 06/14/22 04:00 Labs: Laboratory Results - last 24 hr 06/08/22 08:00: Miscellaneous Test 06/13/22 11:39: POC Glucose 146 H 06/13/22 16:34: POC Glucose 186 H 06/13/22 22:03: POC Glucose 154 H 06/14/22 04:00: WBC 11.0, RBC 2.93 L, Hgb 8.1 L, Hct 26.1 L, MCV 89.1, MCH 27.6, MCHC 31.0 L, RDW Std Deviation 61.4 H, RDW Coeff of [place] 18.7 H, Plt Count 321, MPV 9.1, Immature Gran % (Auto) 2.000 H, Neut % (Auto) 75.6 H, Lymph % (Auto) 10.1 L, [place] % (Auto) 5.9, Eos % (Auto) 6.0 H, Baso % (Auto) 0.4, Absolute Neuts (auto) 8.3 H, Absolute Lymphs (auto) 1.11, Nucleated RBC % 0 06/14/22 04:00: Sodium 138, Potassium 3.8, Chloride 106, Carbon Dioxide 28.0, Anion Gap 4 L, BUN 4 L, Creatinine 0.26 L, Estim Creat Clear Calc 52.81, Est GFR (MDRD) Af Amer 332, Est GFR (MDRD) Non-Af 274, BUN/Creatinine Ratio 15.3, Glucose 137 H, Calcium 5.7 L*, Magnesium 1.8 06/14/22 04:00: Phosphorus 1.7 L 06/14/22 11:17: POC Glucose 146 H Micro: Microbiology 06/08/22 13:59 Blood Culture (Wb) - Pic Blood Culture - Preliminary 06/08/22 08:00 Blood Culture (Wb) - Port Blood Culture - Preliminary No growth in 5 days. 06/06/22 14:42 Blood Culture (Wb) - Right Wrist Blood Culture - Final No growth in 5 days. 06/06/22 15:10 Blood Culture (Wb) - Right Wrist Blood Culture - Final No growth in 5 days. 06/08/22 14:00 Sputum, Expectorated/Coughed Gram Stain - Final 06/08/22 14:00 Sputum, Expectorated/Coughed Respiratory Culture - Preliminary Gram positive cathie Possible Fungus 06/06/22 16:30 Urine Catheter - [place] Urine Culture - Final Enterobacter aerogenes Rhythm Strip Rhythm Strip: A-fib Rate: 98 Ectopy: None Physical Exam Const alert, oriented x3 and no apparent distress Constitutional Narrative: Older, debilitated, white female sitting up in bed, continues to improve clinically however remains on some supplemental oxygen at 2 L and blood pressures remain soft but off pressors, appears older than stated age General Appearance: well developed Orientation / Consciousness: awake HEENT normocephalic, head/scalp atraumatic and moist oral mucous membranes Resp normal respiratory effort, no retractions, no use of accessory muscles and clear to auscultation bilaterally Resp Narrative: Diminished but clear, intermittent bronchial sounding cough Auscultation: Negative for crackles, rales, rhonchi or wheezes Cardio regular rate, regular rhythm, S1 normal heart sound, S2 normal heart sound, no murmurs, no rub, no gallops, no clicks and no JVD GI normal to inspection, nondistended, normoactive bowel sounds, soft to palpation, non-tender and non-distended; Negative for hepatosplenomegaly Extremity no clubbing, cyanosis or edema Extremity Narrative: Trace bilateral lower extremity edema 2+ pedal pulses, trace hand edema, no cyanosis or clubbing Skin General Skin Exam: no breakdown Neuro oriented x3, CN's II-XII intact bilaterally, moves all extremities, no focal motor deficits and no sensory deficits noted Neuro Narrative: Marked generalized weakness Sensorium / Orientation: awake, alert, oriented to person, oriented to place and oriented to time Speech: speech normal Assessment & Plan Assessment/Plan (1) Acute upper gastrointestinal bleeding: (2) Hemorrhagic shock: (3) Acute respiratory failure with hypoxia: (4) Dehydration: (5) Hyponatremia: (6) Hypophosphatemia: (7) Acute blood loss anemia: (8) Hypotension: PLAN: Plan Hemorrhagic shock secondary to upper GI bleed -Hemoglobin on presentation was 6.1--> given 3 units of packed red blood cells -Hemoglobin has been stable but slight drop this morning we will repeat hemoglobin at noon to verify stability with the reinitiation of Eliquis -Remains off pressors for 24 hours now -Continue Eliquis -If repeat hemoglobin at noon is stable we will discontinue octreotide -Transition IV Protonix to p.o. 40 mg p.o. twice daily -Continue Carafate 1 g 4 times daily -EGD performed on 06/11/2022 and noted grade B reflux esophagitis, chronic gastritis with hemorrhage which was treated with heater probe, and nonbleeding duodenal diverticulum, a nonbleeding jejunal diverticulum, and 1 nonbleeding jejunal ulcer with no stigmata of bleeding--> biopsies taken Acute hypoxic respiratory failure -Patient fluctuates between needing 2 L at night to no oxygen -Aspergillus grew on previous respiratory culture--> discussed with pulmonary medicine -Beta-2 glycoprotein antibody less than 9 -Galactomannan negative -Aspergillus antibodies remains pending -Blood cultures remain negative -Repeat sputum culture growing gram-positive cathie and possible fungus -Voriconazole 200 mg p.o. twice daily for 8 to 12 weeks of therapy with a stop date of 08/31/2022 -Infectious diseases following-appreciate input -White count has normalized -Pulmonary medicine following and appreciate input -Patient with recent previous COVID-19 and Legionella infection--> treatment was completed prior to this hospitalization Acute on chronic anemia -Patient with bloody bowel movement this morning -Hemoglobin down to 8.1 this morning we will repeat at noon for stability -Infuse for less than 7 -Continue to monitor -CBC in a.m. Hypophosphatemia -Improved but only up to 1.7 -Bolus given again today -Also start oral phosphorus supplementation twice daily -Repeat in a.m. Paroxysmal atrial fibrillation -Now in normal sinus rhythm but shortly after my evaluation converted back into A. fib -On Cardizem at baseline which is currently being held secondary to blood pressure -We will start digoxin 250 mg x 1 dose today and 125 mg daily following -Continue Eliquis DM-2 - a.m. blood sugar 137 -Continue sliding scale -Accu-Cheks -Hold home metformin Hypocalcemia -Serum calcium 5.9 however when corrected for albumin is normalized -Corrected calcium is 8.8 -Albumin is 1.2 Hyperlipidemia -Continue atorvastatin Osteoporosis -Alendronate on hold -Restart on discharge DVT prophylaxis -SCDs -No chemoprophylaxis secondary to GI bleed CODE STATUS -Full code Disposition: -Anticipate discharge tomorrow as long as patient remained stable over the next 24 hours -Transitional care unit
[2022-06-14 12:05] LABS: Hematocrit 30.1 % (37-47); Hemoglobin 9.6 g/dL (12.0-15.0)
[2022-06-14] MEDS: Digoxin 250 MCG Tablet PO (12:22)
[2022-06-14] MEDS: Insulin Lispro 100 UNIT/ML INSULN.PEN SC ×2 (16:02→21:49)
[2022-06-14 18:26] LABS: Bedside Glucose 182 mg/dL (74-106)
[2022-06-14] MEDS: Ipratropium/Albuterol Sulfate 3 ML AMPUL.NEB INHALATION (19:10)
[2022-06-14] MEDS: Atorvastatin Calcium 20 MG Tablet PO (21:39)
[2022-06-14 22:10] LABS: Bedside Glucose 184 mg/dL (74-106)
[2022-06-15] VITALS (30 sets, daily range): BP systolic 90–123; BP diastolic 47–69; PULSE 50–152; RESP 18–26; TEMP 36.2–36.9; O2SAT 92–98
[2022-06-15 03:56] LABS: Absolute Lymphocyte Count 1.32 X10^3/uL (0.83-4.51); Absolute Neutrophil Count 6.9 X10^3/uL (2.0-7.7); Basophil# 0.03 X10^3/uL; Basophil% 0.3 % (0-1); Eosinophil# 0.59 X10^3/uL; Hematocrit 26.2 % (37-47); Hemoglobin 8.1 g/dL (12.0-15.0); Lymphocyte # 1.32 X10^3/ul (0.83-4.51); Lymphocyte % 13.5 % (19-41); Mean Corp Hgb Conc 30.9 g/dL (32-36); Mean Corpuscular Hgb 27.4 pg (27.0-32.0); Mean Corpuscular Volume 88.5 fL (81-99); Mean Platelet Vol. 9.1 fl (6.2-12.0); Monocyte# 0.71 X10^3/uL; Monocyte% 7.3 % (0-10); NRBC Flagged by Analyzer 0 % (0-5); Neutrophil # 6.86 X10^3/uL (2.7-7.7); Neutrophil % 70.3 % (47-70); Platelet Count 378 K/mm3 (150-450); RBC Distribution Width CV 18.2 % (11.6-14.6); RBC Distribution Width SD 59.3 fl (35.1-43.9); Red Blood Count 2.96 M/mm3 (4.2-5.4); White Blood Count 9.8 K/mm3 (4.4-11.0)
[2022-06-15 04:11] LABS: Phosphorus 1.5 mg/dL (2.5-4.9)
[2022-06-15 04:24] LABS: Anion Gap 5 (5-15); BUN 4 mg/dL (7-18); BUN/Creat Ratio 21.4 RATIO (10-20); Chloride 103 mmol/L (98-107); Creatinine, Serum 0.19 mg/dL (0.55-1.02); EST Glomerular Filtration Rate 403 mL/min (>60); Est Glom Filt Rate - Afr Amer 488 mL/min (>60); Estimated Creatinine Clearance 52.81 ml/min; Glucose 118 mg/dL (74-106); Magnesium 1.4 mg/dL (1.6-2.6); Potassium 3.4 mmol/L (3.5-5.1); Sodium Level 138 mmol/L (136-145)
[2022-06-15] MEDS: 0.9% Saline Lock 10 ML Syringe IV ×4 (04:35→05:21)
[2022-06-15] MEDS: Potassium Chloride 20mEq/100mL 20 MEQ/100 ML IV.SOLN. 100 MEQ IV BOLUS (05:13)
[2022-06-15] MEDS: Nystatin Powder 15gm Bottle 1 APPLIC TOPICAL ×2 (06:10→15:02)
[2022-06-15] MEDS: Sucralfate 1 GM Tablet PO ×4 (06:10→20:59)
[2022-06-15] MEDS: Ipratropium/Albuterol Sulfate 3 ML AMPUL.NEB INHALATION ×3 (07:20→20:11)
[2022-06-15] MEDS: Voriconazole 200 MG Tablet PO ×2 (09:44→20:59)
[2022-06-15] MEDS: Midodrine HCl 5 MG Tablet 15 MG PO ×3 (09:44→16:07)
[2022-06-15] MEDS: Pantoprazole Sodium 40 MG Tablet PO ×2 (09:45→20:59)
[2022-06-15] MEDS: Na Biphos/Potassium Phosphate PACKET 1 PACKET PO ×2 (09:45→20:59)
[2022-06-15] MEDS: APIXABAN 5 MG TABLET PO ×2 (09:46→20:59)
[2022-06-15] MEDS: Digoxin 125 MCG Tablet PO (09:50)
[2022-06-15] MEDS: Potassium Chloride Oral Tablet 20 MEQ 40 MEQ PO (09:50)
[2022-06-15] MEDS: Acetaminophen 500 MG Tablet 1000 MG PO (09:51)
[2022-06-15] MEDS: Magnesium Chloride 64 MG Delay Rel.Tablet 128 MG PO ×2 (09:51→20:59)
[2022-06-15] MEDS: Metoprolol Tartrate 25 MG Tablet 12.5 MG PO ×2 (10:01→21:00)
[2022-06-15] MEDS: CHLORHEXIDINE GLUC 2% CLOTH 1 EACH TOWELETTE TOPICAL (10:02)
[2022-06-15] MEDS: Tamsulosin HCl 0.4 MG Capsule PO (10:18)
[2022-06-15] MEDS: Insulin Lispro 100 UNIT/ML INSULN.PEN SC ×3 (11:15→21:01)
[2022-06-15 11:36] LABS: Bedside Glucose 154 mg/dL (74-106)
--- NOTE | 2022-06-15 11:48 | PN.CC_ITS ---
Assessment & Plan Assessment/Plan (1) Hemorrhagic shock: PLAN: 1.??Hemorrhagic shock The patient presented to the hospital after recently being admitted with COVID- 19 pneumonia with acute blood loss anemia and associated lethargy and weakness. She has been transfused blood products with blood counts remaining stable. Plan to discontinue Levophed this morning and monitor the patient clinically. The patient did undergo upper endoscopy with intervention performed by gastroenterology.? In addition to the aforementioned, she will remain on scheduled midodrine. Continue to monitor blood counts and transfuse if hemoglobin drops below 7 g/dL but that has not happened so far. She remains clinically stable at this point and will likely be transitioned out of ICU tomorrow. (2) Pneumonia: PLAN: The patient has been on supplemental oxygen following her discharge from the hospital recently for COVID-19 pneumonia.? Her hospital course was complicated by Legionella pneumonia.? 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 The patient remains on antifungal therapy per ID recommendations. Continue to wean supplemental oxygen to maintain saturations at or above 90%.? Aspergillus antibodies are still pending. Follow antibody results. Subjective Subjective Patient denies any overnight issues. Remains on oxygen at 2 to 4 L. Complains of intermittent cough however overall is improving. Chest congestion is much improved. Patient is having some urinary retention since her [place] was removed yesterday. Remains off pressors. Anticipate transition tomorrow to transitional care unit as long as she remains stable. Objective Data Objective Data Vital Signs: Vital Signs Temp Pulse Resp BP Pulse Ox O2 Del Method O2 Flow Rate 36.8 C 76 20 H 90/49 L 98 Nasal Cannula 2 06/15/22 10:00 06/15/22 11:29 06/15/22 11:00 06/15/22 11:00 06/15/22 11:00 06/15/22 11:00 06/15/22 11:00 FiO2 93 06/15/22 04:00 Oxygen Flow Rate (L/min) 2 Oxygen Delivery Method Nasal Cannula Weight: 70.6 kg Body Mass Index (BMI) 21.9 Intake & Output: Intake and Output for Last 24 Hours 06/13/22 06/14/22 06/15/22 23:59 23:59 23:59 Intake Total 1488.4633 / 1488.4633 1692.30 / 1692.30 683 / 683 Output Total 985 / 985 1425 / 1425 1050 / 1050 Balance 503.4633 / 503.4633 267.30 / 267.30 -367 / -367 Medical Nutrition Assessment Dietitian: Malnutrition Criteria Met Start: 06/07/22 11:00 Freq: Status: Active Protocol: Document 06/13/22 09:20 (Rec: 06/13/22 09:20 [id number]) Nutrition Malnutrition Evidence of Malnutrition Exists Yes Malnutrition (severe): Acute Illness/Injury Evidenced By Suboptimal Energy Intake ( Severe),Weight Loss (Severe), Physical Changes (Moderate) Clinical Problem Acute Disease or Injury Related Malnutrition Etiology (severe) related to altered GI function and inadequate oral intake Signs/Symptoms as evidenced 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 Germain- will adjust to regular, low fiber diet; magic cup w/ lunch for additional calories/ protein if consumed Lab / Micro Data Result Diagrams: 06/15/22 03:38 06/15/22 03:38 Labs: Laboratory Results - last 24 hr 06/14/22 11:15: Hgb 9.6 L, Hct 30.1 L 06/14/22 16:01: POC Glucose 182 H 06/14/22 21:47: POC Glucose 184 H 06/15/22 03:38: WBC 9.8, RBC 2.96 L, Hgb 8.1 L, Hct 26.2 L, MCV 88.5, MCH 27.4, MCHC 30.9 L, RDW Std Deviation 59.3 H, RDW Coeff of [place] 18.2 H, Plt Count 378, MPV 9.1, Immature Gran % (Auto) 2.600 H, Neut % (Auto) 70.3 H, Lymph % (Auto) 13.5 L, [place] % (Auto) 7.3, Eos % (Auto) 6.0 H, Baso % (Auto) 0.3, Absolute Neuts (auto) 6.9, Absolute Lymphs (auto) 1.32, Nucleated RBC % 0 06/15/22 03:38: Sodium 138, Potassium 3.4 L, Chloride 103, Carbon Dioxide 30.0, Anion Gap 5, BUN 4 L, Creatinine 0.19 L, Estim Creat Clear Calc 52.81, Est GFR (MDRD) Af Amer 488, Est GFR (MDRD) Non-Af 403, BUN/Creatinine Ratio 21.4 H, Glucose 118 H, Calcium 6.0 L*, Magnesium 1.4 L 06/15/22 03:38: Phosphorus 1.5 L 06/15/22 11:14: POC Glucose 154 H Micro: Microbiology 06/08/22 13:59 Blood Culture (Wb) - Pic Blood Culture - Preliminary 06/08/22 08:00 Blood Culture (Wb) - Port Blood Culture - Preliminary No growth in 5 days. 06/06/22 14:42 Blood Culture (Wb) - Right Wrist Blood Culture - Final No growth in 5 days. 06/06/22 15:10 Blood Culture (Wb) - Right Wrist Blood Culture - Final No growth in 5 days. 06/08/22 14:00 Sputum, Expectorated/Coughed Gram Stain - Final 06/08/22 14:00 Sputum, Expectorated/Coughed Respiratory Culture - Preliminary Gram positive cathie Possible Fungus 06/06/22 16:30 Urine Catheter - [place] Urine Culture - Final Enterobacter aerogenes Rhythm Strip Rhythm Strip: A-fib Rate: 98 Ectopy: None Physical Exam Narrative Feeling better, off pressors, breathing improved, no fever Const alert and no apparent distress Resp normal air movement and clear to auscultation bilaterally Cardio regular rate and regular rhythm GI soft to palpation, non-tender and non-distended Extremity General Extremity: Negative for edema Skin no rashes or lesions noted Charges/Coding Visit Charges Inpatient E&M: 96031 Subs Hosp L3
--- NOTE | 2022-06-15 13:17 | PN.HOSP_ITS ---
Subjective Subjective Patient remains somewhat apathetic and not unwilling to participate. She has been a Consuelo lift to get out of bed because she simply will not bear weight on her legs. Her oral intake has been for because she does not want to eat. I had extensive discussion with her with regards to how her progression is going to go if she continues not to participate in therapies or eat food. The patient seemed to voiced understanding and then we will readdress the situation later when her daughter arrived. Her daughter is very understanding of what her mother needs to do and reiterated what we discussed. Objective Data Objective Data Vital Signs: Vital Signs Temp Pulse Resp BP Pulse Ox O2 Del Method O2 Flow Rate 97.8 F 80 22 H 98/53 L 96 Nasal Cannula 2 06/15/22 12:00 06/15/22 13:00 06/15/22 13:00 06/15/22 13:00 06/15/22 13:00 06/15/22 13:00 06/15/22 13:00 FiO2 93 06/15/22 04:00 Oxygen Flow Rate (L/min) 2 Oxygen Delivery Method Nasal Cannula Weight: 70.6 kg Body Mass Index (BMI) 21.9 Intake & Output: Intake and Output for Last 24 Hours 06/13/22 06/14/22 06/15/22 23:59 23:59 23:59 Intake Total 1488.4633 / 1488.4633 1692.30 / 1692.30 938 / 938 Output Total 985 / 985 1425 / 1425 1050 / 1050 Balance 503.4633 / 503.4633 267.30 / 267.30 -112 / -112 Medical Nutrition Assessment Dietitian: Malnutrition Criteria Met Start: 06/07/22 11:00 Freq: Status: Active Protocol: Document 06/13/22 09:20 AG (Rec: 06/13/22 09:20 [id number]) Nutrition Malnutrition Evidence of Malnutrition Exists Yes Malnutrition (severe): Acute Illness/Injury Evidenced By Suboptimal Energy Intake ( Severe),Weight Loss (Severe), Physical Changes (Moderate) Clinical Problem Acute Disease or Injury Related Malnutrition Etiology (severe) related to altered GI function and inadequate oral intake Signs/Symptoms as evidenced by 8.7% 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 Germain- will adjust to regular, low fiber diet; magic cup w/ lunch for additional calories/ protein if consumed Lab / Micro Data Result Diagrams: 06/15/22 03:38 06/15/22 03:38 Labs: Laboratory Results - last 24 hr 06/14/22 16:01: POC Glucose 182 H 06/14/22 21:47: POC Glucose 184 H 06/15/22 03:38: WBC 9.8, RBC 2.96 L, Hgb 8.1 L, Hct 26.2 L, MCV 88.5, MCH 27.4, MCHC 30.9 L, RDW Std Deviation 59.3 H, RDW Coeff of Palak 18.2 H, Plt Count 378, MPV 9.1, Immature Gran % (Auto) 2.600 H, Neut % (Auto) 70.3 H, Lymph % (Auto) 13.5 L, [place] % (Auto) 7.3, Eos % (Auto) 6.0 H, Baso % (Auto) 0.3, Absolute Neuts (auto) 6.9, Absolute Lymphs (auto) 1.32, Nucleated RBC % 0 06/15/22 03:38: Sodium 138, Potassium 3.4 L, Chloride 103, Carbon Dioxide 30.0, Anion Gap 5, BUN 4 L, Creatinine 0.19 L, Estim Creat Clear Calc 52.81, Est GFR (MDRD) Af Amer 488, Est GFR (MDRD) Non-Af 403, BUN/Creatinine Ratio 21.4 H, Glucose 118 H, Calcium 6.0 L*, Magnesium 1.4 L 06/15/22 03:38: Phosphorus 1.5 L 06/15/22 11:14: POC Glucose 154 H Micro: Microbiology 06/08/22 13:59 Blood Culture (Wb) - Pic Blood Culture - Preliminary 06/08/22 08:00 Blood Culture (Wb) - Port Blood Culture - Preliminary No growth in 5 days. 06/06/22 14:42 Blood Culture (Wb) - Right Wrist Blood Culture - Final No growth in 5 days. 06/06/22 15:10 Blood Culture (Wb) - Right Wrist Blood Culture - Final No growth in 5 days. 06/08/22 14:00 Sputum, Expectorated/Coughed Gram Stain - Final 06/08/22 14:00 Sputum, Expectorated/Coughed Respiratory Culture - Preliminary Gram positive cathei Possible Fungus 06/06/22 16:30 Urine Catheter - [place] Urine Culture - Final Enterobacter aerogenes Rhythm Strip Rhythm Strip: A-fib Rate: 98 Ectopy: None Physical Exam Const alert, oriented x3 and no apparent distress Constitutional Narrative: Older, debilitated, white female sitting up in bed, patient clinically overall continues to do well however her motivation is poor, oxygen is in oropharynx General Appearance: well developed Orientation / Consciousness: awake HEENT normocephalic, head/scalp atraumatic and moist oral mucous membranes Resp normal respiratory effort, no retractions, no use of accessory muscles and clear to auscultation bilaterally Resp Narrative: Diminished but clear, intermittent bronchial sounding cough Auscultation: Negative for crackles, rales, rhonchi or wheezes Cardio regular rate, regular rhythm, S1 normal heart sound, S2 normal heart sound, no murmurs, no rub, no gallops, no clicks and no JVD GI normal to inspection, nondistended, normoactive bowel sounds, soft to palpation, non-tender and non-distended; Negative for hepatosplenomegaly Extremity no clubbing, cyanosis or edema Extremity Narrative: Trace bilateral lower extremity edema 2+ pedal pulses, trace hand edema, no cyanosis or clubbing General Extremity: edema Neuro oriented x3, CN's II-XII intact bilaterally, moves all extremities, no focal motor deficits and no sensory deficits noted Neuro Narrative: Marked generalized weakness Sensorium / Orientation: awake, alert, oriented to person, oriented to place and oriented to time Speech: speech normal Psych Psych Narrative: Affect is flat mood seems somewhat depressed Assessment & Plan Assessment/Plan (1) Acute upper gastrointestinal bleeding: (2) Hemorrhagic shock: (3) Acute respiratory failure with hypoxia: (4) Dehydration: (5) Hyponatremia: (6) Hypophosphatemia: (7) Acute blood loss anemia: (8) Hypotension: (9) Debility: (10) Urinary retention: (11) Hypomagnesemia: (12) Hypokalemia: PLAN: Plan Hemorrhagic shock secondary to upper GI bleed -Hemoglobin on presentation was 6.1--> given 3 units of packed red blood cells -Hemoglobin has been stable but slight drop this morning we will repeat hemoglobin at noon to verify stability with the reinitiation of Eliquis -Has had no further need of pressors -Continue Eliquis -Continue Protonix 40 mg p.o. twice daily -Continue Carafate 1 g 4 times daily -EGD performed on 06/11/2022 and noted grade B reflux esophagitis, chronic gastritis with hemorrhage which was treated with heater probe, and nonbleeding duodenal diverticulum, a nonbleeding jejunal diverticulum, and 1 nonbleeding jejunal ulcer with no stigmata of bleeding--> biopsies taken Acute hypoxic respiratory failure -Patient fluctuates between needing 2 L at night to no oxygen -Aspergillus grew on previous respiratory culture--> discussed with pulmonary medicine -Beta-2 glycoprotein antibody less than 9 -Galactomannan negative -Aspergillus antibodies remains pending -Blood cultures remain negative -Repeat sputum culture growing gram-positive cathie and possible fungus -Voriconazole 200 mg p.o. twice daily for 8 to 12 weeks of therapy with a stop date of 08/31/2022 -Infectious diseases following-appreciate input -White count has normalized -Pulmonary medicine following and appreciate input -Patient with recent previous COVID-19 and Legionella infection--> treatment was completed prior to this hospitalization Acute on chronic anemia -Hemoglobin is stabilized in the 8-9 range -Infuse for less than 7 -Continue to monitor -CBC in a.m. Hypophosphatemia -On again today -Continue oral supplementation -Bolus given again today -Strongly encourage patient to eat as I suspect this is playing into her chronic electrolyte disturbances -Repeat in a.m. Hypomagnesemia -A.m. magnesium level is 1.4 -Magnesium bolus with 4 g -Repeat mag level in a.m. Paroxysmal atrial fibrillation -Patient in and out of atrial fibrillation -Has been on diltiazem previously but blood pressures remain soft so therefore we will hold and likely discontinue upon discharge -Start metoprolol 12.5 mg twice daily -Continue digoxin 125 mcg daily -Continue Eliquis Hypokalemia -40 mill equivalents p.o. potassium -Repeat lab in a.m. Urinary retention -Obregon discontinued the patient required multiple straight cathing attempts and therefore Obregon replaced -Start Flomax -We will retrial Obregon discontinuation today and allow patient to urinate on the bedside commode Severe debility -Patient has been very unmotivated -Extensive talk with her today about improving her participation -She voiced understanding -I did indicate that if she does not improve she is not going to be able to go to TCU as she has been a complete lift for transfers and I need to see her participate some to be able to go over there -Hopefully will have some improvement in the next 24 hours and we can discharge her to TCU on 06/16/2022. DM-2 - a.m. blood sugar 118 -Continue sliding scale -Accu-Cheks -Hold home metformin Hypocalcemia -Serum calcium 5.9 however when corrected for albumin is normalized -Corrected calcium is 8.8 -Albumin is 1.2 Hyperlipidemia -Continue atorvastatin Osteoporosis -Alendronate on hold -Restart on discharge DVT prophylaxis -SCDs -No chemoprophylaxis secondary to GI bleed CODE STATUS -Full code Disposition: -Anticipate discharge tomorrow as long as patient remained stable over the next 24 hours and is able to participate in therapy -Transitional care unit Charges/Coding Visit Charges Inpatient E&M: 85646 Subs Hosp L2
[2022-06-15 16:51] LABS: Bedside Glucose 167 mg/dL (74-106)
[2022-06-15] MEDS: Atorvastatin Calcium 20 MG Tablet PO (20:59)
[2022-06-15 22:25] LABS: Bedside Glucose 165 mg/dL (74-106)
[2022-06-15 23:25] LABS: Bedside Glucose 129 mg/dL (74-106)
[2022-06-16] VITALS (17 sets, daily range): BP systolic 94–106; BP diastolic 47–60; PULSE 68–107; RESP 16–18; TEMP 36.3–36.9; O2SAT 92–96
[2022-06-16] MEDS: Acetaminophen 500 MG Tablet 1000 MG PO (01:13)
[2022-06-16 06:29] LABS: Absolute Neutrophil Count 6.5 X10^3/uL (2.0-7.7); Basophil# 0.04 X10^3/uL; Basophil% 0.4 % (0-1); Eosinophils% 5.5 % (0-5); Hematocrit 27.1 % (37-47); Hemoglobin 8.6 g/dL (12.0-15.0); Lymphocyte % 13.2 % (19-41); Mean Corp Hgb Conc 31.7 g/dL (32-36); Mean Corpuscular Hgb 28.4 pg (27.0-32.0); Mean Corpuscular Volume 89.4 fL (81-99); Mean Platelet Vol. 9.4 fl (6.2-12.0); Monocyte# 0.69 X10^3/uL; Monocyte% 7.6 % (0-10); NRBC Flagged by Analyzer 0 % (0-5); Neutrophil # 6.49 X10^3/uL (2.7-7.7); Neutrophil % 71.1 % (47-70); Platelet Count 401 K/mm3 (150-450); RBC Distribution Width CV 18.3 % (11.6-14.6); RBC Distribution Width SD 60.7 fl (35.1-43.9); Red Blood Count 3.03 M/mm3 (4.2-5.4); White Blood Count 9.1 K/mm3 (4.4-11.0)
[2022-06-16] MEDS: Nystatin Powder 15gm Bottle 1 APPLIC TOPICAL ×3 (06:55→23:06)
[2022-06-16] MEDS: Sucralfate 1 GM Tablet PO ×4 (06:55→22:51)
[2022-06-16] MEDS: Ipratropium/Albuterol Sulfate 3 ML AMPUL.NEB INHALATION ×3 (06:59→19:46)
[2022-06-16 07:02] LABS: Anion Gap 4 (5-15); BUN 5 mg/dL (7-18); BUN/Creat Ratio 19.4 RATIO (10-20); Calcium,Total 6.9 mg/dL (8.5-10.1); Chloride 108 mmol/L (98-107); Creatinine, Serum 0.26 mg/dL (0.55-1.02); EST Glomerular Filtration Rate 278 mL/min (>60); Est Glom Filt Rate - Afr Amer 336 mL/min (>60); Estimated Creatinine Clearance 52.81 ml/min; Glucose 108 mg/dL (74-106); Magnesium 2.2 mg/dL (1.6-2.6); Potassium 3.9 mmol/L (3.5-5.1); Sodium Level 140 mmol/L (136-145)
[2022-06-16 07:15] LABS: Phosphorus 1.9 mg/dL (2.5-4.9)
[2022-06-16 07:21] LABS: Bedside Glucose 104 mg/dL (74-106)
[2022-06-16] MEDS: Magnesium Chloride 64 MG Delay Rel.Tablet 128 MG PO ×2 (08:17→22:53)
[2022-06-16] MEDS: APIXABAN 5 MG TABLET PO ×2 (08:17→22:52)
[2022-06-16] MEDS: Voriconazole 200 MG Tablet PO ×2 (08:17→22:54)
[2022-06-16] MEDS: Midodrine HCl 5 MG Tablet 15 MG PO ×3 (08:17→16:18)
[2022-06-16] MEDS: Na Biphos/Potassium Phosphate PACKET 1 PACKET PO ×4 (08:18→22:54)
[2022-06-16] MEDS: Pantoprazole Sodium 40 MG Tablet PO ×2 (08:18→22:54)
[2022-06-16] MEDS: Metoprolol Tartrate 25 MG Tablet 12.5 MG PO (08:19)
[2022-06-16] MEDS: Digoxin 125 MCG Tablet PO (08:21)
--- NOTE | 2022-06-16 08:40 | PCM.PN.INT ---
Assessment & Plan Assessment/Plan (1) Hemorrhagic shock: PLAN: Plan RECOMMENDATIONS: 1. Continue antimicrobials along with antifungal therapy per ID recommendations. 2. Stop Levophed this morning and monitor patient clinically. 3. Continue PPI therapy as ordered. 4. Continue to monitor blood counts and transfuse for hemoglobin greater than 7 g/dL. 5. Additional phosphorus repletion. 6. Continue to hold systemic anticoagulation. 7. Continue scheduled midodrine. 8. Continue to wean supplemental oxygen as tolerated for saturations greater than 90%. 9. Aggressive physical therapy. IMPRESSIONS: 1. Hemorrhagic shock The patient presented to the hospital after recently being admitted with COVID-19 pneumonia with acute blood loss anemia and associated lethargy and weakness. She has been transfused blood products with blood counts remaining stable. Patient has tolerated discontinuation of pressors. Continue to monitor the patient clinically. The patient did undergo upper endoscopy with intervention performed by gastroenterology. In addition to the aforementioned, she will remain on scheduled midodrine. Continue to monitor blood counts and transfuse if hemoglobin drops below 7 g/dL. Continue PPI therapy as ordered. 2. Acute hypoxemic respiratory failure The patient has been on supplemental oxygen following her discharge from the hospital recently for COVID-19 pneumonia. Her hospital course was complicated by Legionella pneumonia. 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 The patient remains on antifungal therapy per ID recommendations. Continue to wean supplemental oxygen to maintain saturations at or above 90%. Aspergillus antibodies are still pending. 3. Chronic atrial fibrillation on systemic anticoagulation In light of the patient's presenting anemia, Eliquis was held initially. Patient has tolerated digoxin and metoprolol with marginal blood pressures. Patient appears to be tolerating Eliquis at this time 4. Hypophosphatemia Aggressive electrolyte repletion as ordered. Clinical suspicion for refeeding syndrome 5. Recent COVID-19 hospitalization/diabetes mellitus/hyperlipidemia/GERD Complicates care, management, recovery and prognosis. Continue PPI therapy as ordered. 6. Urinary retention Patient with protracted Ob[place] placement previously. Patient is not reporting any abdominal pain at this time, so we will continue to monitor clinically. Chemistries are not suggestive of kidney injury. Subjective Subjective Patient did okay overnight. No acute issues were reported. Patient subjectively feels unchanged compared to previous. Patient was able to tolerate breakfast. No bolus or pressors required overnight. Objective Data Objective Data Vital Signs: Vital Signs Temp Pulse Resp BP Pulse Ox O2 Del Method O2 Flow Rate 36.3 C L 80 16 94/50 L 96 Nasal Cannula 2 06/16/22 03:00 06/16/22 08:21 06/16/22 03:00 06/16/22 03:00 06/16/22 03:00 06/16/22 03:00 06/16/22 03:00 FiO2 93 06/15/22 04:00 Oxygen Flow Rate (L/min) 2 Oxygen Delivery Method Nasal Cannula Weight: 78.7 kg Body Mass Index (BMI) 21.9 Intake & Output: Intake and Output for Last 24 Hours 06/14/22 06/15/22 06/16/22 23:59 23:59 23:59 Intake Total 1692.30 / 1692.30 1138 / 1138 Output Total 1425 / 1425 1050 / 1050 700 / 700 Balance 267.30 / 267.30 88 / 88 -700 / -700 Medical Nutrition Assessment Dietitian: Malnutrition Criteria Met Start: 06/07/22 11:00 Freq: Status: Active Protocol: Document 06/13/22 09:20 AG (Rec: 06/13/22 09:20 [id number]) Nutrition Malnutrition Evidence of Malnutrition Exists Yes Malnutrition (severe): Acute Illness/Injury Evidenced By Suboptimal Energy Intake ( Severe),Weight Loss (Severe), Physical Changes (Moderate) Clinical Problem Acute Disease or Injury Related Malnutrition Etiology (severe) related to altered GI function and inadequate oral intake Signs/Symptoms as evidenced by 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 Germain- will adjust to regular, low fiber diet; magic cup w/ lunch for additional calories/ protein if consumed Lab / Micro Data Attestation: I reviewed the patient's lab results. Result Diagrams: 06/16/22 05:30 06/16/22 05:30 Labs: Laboratory Results - last 24 hr 06/15/22 07:19: POC Glucose 129 H 06/15/22 11:14: POC Glucose 154 H 06/15/22 16:06: POC Glucose 167 H 06/15/22 20:53: POC Glucose 165 H 06/16/22 05:30: WBC 9.1, RBC 3.03 L, Hgb 8.6 L, Hct 27.1 L, MCV 89.4, MCH 28.4, MCHC 31.7 L, RDW Std Deviation 60.7 H, RDW Coeff of Palak 18.3 H, Plt Count 401, MPV 9.4, Immature Gran % (Auto) 2.200 H, Neut % (Auto) 71.1 H, Lymph % (Auto) 13.2 L, [place] % (Auto) 7.6, Eos % (Auto) 5.5 H, Baso % (Auto) 0.4, Absolute Neuts (auto) 6.5, Absolute Lymphs (auto) 1.20, Nucleated RBC % 0 06/16/22 05:30: Sodium 140, Potassium 3.9, Chloride 108 H, Carbon Dioxide 28.0, Anion Gap 4 L, BUN 5 L, Creatinine 0.26 L, Estim Creat Clear Calc 52.81, Est GFR (MDRD) Af Amer 336, Est GFR (MDRD) Non-Af 278, BUN/Creatinine Ratio 19.4, Glucose 108 H, Calcium 6.9 L, Magnesium 2.2 06/16/22 05:30: Phosphorus 1.9 L 06/16/22 06:54: POC Glucose 104 Micro: Microbiology 06/08/22 13:59 Blood Culture (Wb) - Pic Blood Culture - Preliminary 06/08/22 08:00 Blood Culture (Wb) - Port Blood Culture - Preliminary No growth in 5 days. 06/06/22 14:42 Blood Culture (Wb) - Right Wrist Blood Culture - Final No growth in 5 days. 06/06/22 15:10 Blood Culture (Wb) - Right Wrist Blood Culture - Final No growth in 5 days. 06/08/22 14:00 Sputum, Expectorated/Coughed Gram Stain - Final 06/08/22 14:00 Sputum, Expectorated/Coughed Respiratory Culture - Preliminary Gram positive cathie Possible Fungus 06/06/22 16:30 Urine Catheter - [place] Urine Culture - Final Enterobacter aerogenes Physical Exam Const alert and no apparent distress General Appearance: cooperative and frail HEENT normocephalic and head/scalp atraumatic Eyes PERRL, EOMs intact bilaterally and conjunctivae normal Neck supple General: trachea midline Chest inspection of chest normal Resp Resp Narrative: Poor inspiratory effort Auscultation: diminished lung sounds; Negative for rales, rhonchi or wheezes Cardio regular rate, S1 normal heart sound and S2 normal heart sound GI normal to inspection, nondistended, normoactive bowel sounds Extremity no clubbing, cyanosis or edema Skin no rashes or lesions noted Neuro oriented x3, CN's II-XII intact bilaterally, moves all extremities and no focal motor deficits Psych Mood & Affect: flat affect Charges/Coding Visit Charges Inpatient E&M: 68590 Subs Hosp L2
--- NOTE | 2022-06-16 09:53 | WOUNDNOTE ---
wound photo: bilateral buttocks
[2022-06-16] MEDS: Tamsulosin HCl 0.4 MG Capsule PO ×2 (11:11→22:52)
[2022-06-16 11:35] LABS: Bedside Glucose 109 mg/dL (74-106)
--- NOTE | 2022-06-16 14:11 | PN.HOSP_ITS ---
Subjective Subjective Follow-up for acute hypoxic respiratory failure/acute on chronic anemia/electrolyte imbalances: Patient was seen and examined. Her daughter was at her bedside. Patient had gone into urinary retention. [place] catheter was taken the day before. She was retaining more than 500 mils of urine. She had previously been straight cathed. [place] catheter was placed again. Her Flomax was increased to 0.4 mg twice glen y. Objective Data Objective Data Vital Signs: Vital Signs Temp Pulse Resp BP Pulse Ox O2 Del Method O2 Flow Rate 97.9 F 73 16 97/47 L 95 Nasal Cannula 2 06/16/22 13:23 06/16/22 13:23 06/16/22 13:23 06/16/22 13:23 06/16/22 13:23 06/16/22 13:23 06/16/22 13:23 FiO2 93 06/15/22 04:00 Oxygen Flow Rate (L/min) 2 Oxygen Delivery Method Nasal Cannula Weight: 78.7 kg Body Mass Index (BMI) 21.9 Intake & Output: Intake and Output for Last 24 Hours 06/14/22 06/15/22 06/16/22 23:59 23:59 23:59 Intake Total 1692.30 / 1692.30 1138 / 1138 400 / 400 Output Total 1425 / 1425 1050 / 1050 1500 / 1500 Balance 267.30 / 267.30 88 / 88 -1100 / -1100 Medical Nutrition Assessment Dietitian: Malnutrition Criteria Met Start: 06/07/22 11:00 Freq: Status: Active Protocol: Document 06/13/22 09:20 AG (Rec: 06/13/22 09:20 [id number]) Nutrition Malnutrition Evidence of Malnutrition Exists Yes Malnutrition (severe): Acute Illness/Injury Evidenced By Suboptimal Energy Intake ( Severe),Weight Loss (Severe), Physical Changes (Moderate) Clinical Problem Acute Disease or Injury Related Malnutrition Etiology (severe) related to altered GI function and inadequate oral intake Signs/Symptoms as evidenced by 8.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 Germain- will adjust to regular, low fiber diet; magic cup w/ lunch for additional calories/ protein if consumed Lab / Micro Data Result Diagrams: 06/16/22 05:30 06/16/22 05:30 Labs: Laboratory Results - last 24 hr 06/15/22 07:19: POC Glucose 129 H 06/15/22 16:06: POC Glucose 167 H 06/15/22 20:53: POC Glucose 165 H 06/16/22 05:30: WBC 9.1, RBC 3.03 L, Hgb 8.6 L, Hct 27.1 L, MCV 89.4, MCH 28.4, MCHC 31.7 L, RDW Std Deviation 60.7 H, RDW Coeff of Palak 18.3 H, Plt Count 401, MPV 9.4, Immature Gran % (Auto) 2.200 H, Neut % (Auto) 71.1 H, Lymph % (Auto) 13.2 L, [place] % (Auto) 7.6, Eos % (Auto) 5.5 H, Baso % (Auto) 0.4, Absolute Neuts (auto) 6.5, Absolute Lymphs (auto) 1.20, Nucleated RBC % 0 06/16/22 05:30: Sodium 140, Potassium 3.9, Chloride 108 H, Carbon Dioxide 28.0, Anion Gap 4 L, BUN 5 L, Creatinine 0.26 L, Estim Creat Clear Calc 52.81, Est GFR (MDRD) Af Amer 336, Est GFR (MDRD) Non-Af 278, BUN/Creatinine Ratio 19.4, Glucose 108 H, Calcium 6.9 L, Magnesium 2.2 06/16/22 05:30: Phosphorus 1.9 L 06/16/22 06:54: POC Glucose 104 06/16/22 11:10: POC Glucose 109 H Micro: Microbiology 06/08/22 13:59 Blood Culture (Wb) - Pic Blood Culture - Preliminary 06/08/22 08:00 Blood Culture (Wb) - Port Blood Culture - Preliminary No growth in 5 days. 06/06/22 14:42 Blood Culture (Wb) - Right Wrist Blood Culture - Final No growth in 5 days. 06/06/22 15:10 Blood Culture (Wb) - Right Wrist Blood Culture - Final No growth in 5 days. 06/08/22 14:00 Sputum, Expectorated/Coughed Gram Stain - Final 06/08/22 14:00 Sputum, Expectorated/Coughed Respiratory Culture - Preliminary Gram positive cathie Possible Fungus 06/06/22 16:30 Urine Catheter - [place] Urine Culture - Final Enterobacter aerogenes Rhythm Strip Rhythm Strip: A-fib Rate: 98 Ectopy: None Physical Exam Narrative Physical exam: General: Alert, Oriented x3, Cooperative, appears frail, on 2 L oxygen HEENT: Atraumatic Oral: Moist Mucosa Neck: Supple Lungs: Diminished to auscultation Cardiovascular: HS I+II, regular, no murmurs Abdomen: Bowel Sounds Present, Soft, Non Tender Extremities: No edema Skin: No rashes, No breakdown Neurological: Grossly intact Psych/Mental Status: Appropriate Assessment & Plan Assessment/Plan (1) Acute upper gastrointestinal bleeding: (2) Hemorrhagic shock: (3) Acute respiratory failure with hypoxia: (4) Dehydration: (5) Hypophosphatemia: (6) Acute blood loss anemia: (7) Hypotension: (8) Debility: (9) Urinary retention: (10) Hypomagnesemia: (11) Hypokalemia: PLAN: Plan 1. Acute hemorrhagic shock secondary to Acute upper GI bleed, resolved EGD performed on 06/11/2022 and noted grade B reflux esophagitis, chronic gastritis with hemorrhage which was treated with heater probe, and nonbleeding duodenal diverticulum, a nonbleeding jejunal diverticulum, and 1 nonbleeding jejunal ulcer with no stigmata of bleeding, biopsy showed gastric mucosa Continue on IV PPI, Carafate 2. Acute hypoxic respiratory failure, improved, remains on 2 L of oxygen 3. 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 twice daily for 8 to 12 weeks of therapy with a stop date of 08/31/2022 Pulmonology following 4. Acute on chronic anemia secondary to acute blood loss anemia from #1 Hemoglobin is currently 8.6, status post 3 units packed RBC transfusion 5. Hypophosphatemia, replace, recheck in a.m. 6. Paroxysmal atrial fibrillation, rate controlled, continue metoprolol, digoxin and Eliquis 7. Type II DM, on metformin on hold, continue on insulin sliding scale 8. Hyperlipidemia, continue statin 9. DVT PPx- on Eliquis Charges/Coding Visit Charges Inpatient E&M: 63244 Subs Hosp L2
--- NOTE | 2022-06-16 14:28 | CASEMGMT ---
SW completed a PHQ 9 with patient. After reviewing patient's chart and talking with physician patient appears to be depressed. She is not getting up with therapy. Therapy notes are indicating patient is very unmotivated. Physician spoke with patient about antidepressants and patient agreed to try them. Patient scored a 13 which indicates moderate depression. SW spoke with patient about her feelings. SW listened and provided emotional support. Patient identified family as big mood booster. Patient's family has been present quite a bit throughout the day. Physician started patient on antidepressants. Erin MARTINEZ
[2022-06-16] MEDS: Juven (unflavored) Packet 1 PACKET PO (16:18)
[2022-06-16] MEDS: Sertraline 50 MG Tablet 25 MG PO (16:23)
[2022-06-16 16:45] LABS: Bedside Glucose 127 mg/dL (74-106)
[2022-06-16] MEDS: Atorvastatin Calcium 20 MG Tablet PO (22:52)
[2022-06-16] MEDS: Insulin Lispro 100 UNIT/ML INSULN.PEN SC (22:58)
[2022-06-17] VITALS (21 sets, daily range): BP systolic 84–102; BP diastolic 47–76; PULSE 68–112; RESP 16–20; TEMP 36.2–36.8; O2SAT 95–98
[2022-06-17 01:31] LABS: Bedside Glucose 154 mg/dL (74-106)
[2022-06-17] MEDS: Acetaminophen 500 MG Tablet 1000 MG PO (03:25)
[2022-06-17] MEDS: Metoprolol Tartrate 25 MG Tablet 12.5 MG PO (04:32)
[2022-06-17 04:58] LABS: Absolute Lymphocyte Count 1.09 X10^3/uL (0.83-4.51); Absolute Neutrophil Count 6.4 X10^3/uL (2.0-7.7); Basophil# 0.04 X10^3/uL; Basophil% 0.5 % (0-1); Eosinophil# 0.53 X10^3/uL; Hematocrit 27.7 % (37-47); Hemoglobin 8.9 g/dL (12.0-15.0); Lymphocyte # 1.09 X10^3/ul (0.83-4.51); Lymphocyte % 12.3 % (19-41); Mean Corp Hgb Conc 32.1 g/dL (32-36); Mean Corpuscular Hgb 28.7 pg (27.0-32.0); Mean Corpuscular Volume 89.4 fL (81-99); Mean Platelet Vol. 9.3 fl (6.2-12.0); Monocyte# 0.62 X10^3/uL; NRBC Flagged by Analyzer 0 % (0-5); Neutrophil # 6.35 X10^3/uL (2.7-7.7); Neutrophil % 71.5 % (47-70); Platelet Count 403 K/mm3 (150-450); RBC Distribution Width CV 18.3 % (11.6-14.6); RBC Distribution Width SD 59.7 fl (35.1-43.9); White Blood Count 8.9 K/mm3 (4.4-11.0)
[2022-06-17 05:25] LABS: ALB/GLOB Ratio 0.3 RATIO (0.9-2.4); AST(SGOT) 18 U/L (15-37); Alanine Aminotransfer ALT/SGPT 20 U/L (13-56); Albumin, Serum 1.2 g/dL (3.2-5.0); Alkaline Phosphatase 96 U/L (45-117); Anion Gap 5 (5-15); BUN 8 mg/dL (7-18); BUN/Creat Ratio 33.6 RATIO (10-20); Calcium,Total 6.8 mg/dL (8.5-10.1); Chloride 105 mmol/L (98-107); Creatinine, Serum 0.24 mg/dL (0.55-1.02); EST Glomerular Filtration Rate 305 mL/min (>60); Est Glom Filt Rate - Afr Amer 369 mL/min (>60); Estimated Creatinine Clearance 52.81 ml/min; Globulin 3.8 g/dL (2.2-4.2); Glucose 102 mg/dL (74-106); Magnesium 1.8 mg/dL (1.6-2.6); Phosphorus 2.1 mg/dL (2.5-4.9); Potassium 3.6 mmol/L (3.5-5.1); Sodium Level 136 mmol/L (136-145)
[2022-06-17] MEDS: Ipratropium/Albuterol Sulfate 3 ML AMPUL.NEB INHALATION ×3 (06:39→19:09)
[2022-06-17] MEDS: Nystatin Powder 15gm Bottle 1 APPLIC TOPICAL ×3 (06:44→20:51)
[2022-06-17] MEDS: Ondansetron 4 MG/2 ML Vial IV (08:11)
[2022-06-17] MEDS: 0.9% Saline Lock 10 ML Syringe IV (08:11)
--- NOTE | 2022-06-17 08:21 | PCM.PN.INT ---
Assessment & Plan Assessment/Plan (1) Hemorrhagic shock: PLAN: Plan RECOMMENDATIONS: 1. Continue antimicrobials along with antifungal therapy per ID recommendations. 2. Zofran as necessary for nausea 3. Continue PPI therapy as ordered. Monitor for signs of lower GI bleed. 4. Continue to monitor blood counts and transfuse for hemoglobin greater than 7 g/dL. 5. Increase activity as tolerated 6. Continue scheduled midodrine. 7. Continue to wean supplemental oxygen as tolerated for saturations greater than 90%. 8.potential discharge planning if no signs or symptoms of GI bleed IMPRESSIONS: 1. Hemorrhagic shock Improved. The patient presented to the hospital after recently being admitted with COVID-19 pneumonia with acute blood loss anemia and associated lethargy and weakness. She has been transfused blood products with blood counts remaining stable. Patient has tolerated discontinuation of pressors. Continue to monitor the patient clinically. The patient did undergo upper endoscopy with intervention performed by gastroenterology. In addition to the aforementioned, she will remain on scheduled midodrine. Continue to monitor blood counts and transfuse if hemoglobin drops below 7 g/dL. Continue PPI therapy as ordered. Unclear if new onset nausea secondary to recurrent GI bleed. Monitor clinically. 2. Acute hypoxemic respiratory failure The patient has been on supplemental oxygen following her discharge from the hospital recently for COVID-19 pneumonia. Her hospital course was complicated by Legionella pneumonia. 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 The patient remains on antifungal therapy per ID recommendations. Continue to wean supplemental oxygen to maintain saturations at or above 90%. Largely resolved. 3. Chronic atrial fibrillation on systemic anticoagulation In light of the patient's presenting anemia, Eliquis was held initially. Patient has tolerated digoxin and metoprolol with marginal blood pressures. Patient appears to be tolerating Eliquis at this time. May have to hold if patient develops GI symptoms consistent with bleed. 4. Hypophosphatemia Aggressive electrolyte repletion as ordered. Clinical suspicion for refeeding syndrome 5. Recent COVID-19 hospitalization/diabetes mellitus/hyperlipidemia/GERD Complicates care, management, recovery and prognosis. Continue PPI therapy as ordered. 6. Urinary retention Patient with protracted [place] placement previously. Patient is not reporting any abdominal pain at this time, so we will continue to monitor clinically. Chemistries are not suggestive of kidney injury. Subjective Subjective Patient did okay overnight from a hemodynamic standpoint. However, patient states that she has had nausea since dinner last evening. Patient is reporting increased flatus, but no bloody bowel movements or melena. Objective Data Objective Data Vital Signs: Vital Signs Temp Pulse Resp BP Pulse Ox O2 Del Method O2 Flow Rate 36.6 C 100 18 102/76 95 Nasal Cannula 3 06/17/22 06:15 06/17/22 07:30 06/17/22 06:15 06/17/22 06:15 06/17/22 06:15 06/17/22 06:15 06/17/22 06:15 FiO2 93 06/15/22 04:00 Oxygen Flow Rate (L/min) 3 Oxygen Delivery Method Nasal Cannula Weight: 77.8 kg Body Mass Index (BMI) 21.9 Intake & Output: Intake and Output for Last 24 Hours 06/15/22 06/16/22 06/17/22 23:59 23:59 23:59 Intake Total 1138 / 1138 800 / 800 Output Total 1050 / 1050 1900 / 2050 750 / 750 Balance 88 / 88 -1100 / -1250 -750 / -750 Medical Nutrition Assessment Dietitian: Malnutrition Criteria Met Start: 06/07/22 11:00 Freq: Status: Active Protocol: Document 06/13/22 09:20 AG (Rec: 06/13/22 09:20 AG [id number]) Nutrition Malnutrition Evidence of Malnutrition Exists Yes Malnutrition (severe): Acute Illness/Injury Evidenced By Suboptimal Energy Intake ( Severe),Weight Loss (Severe), Physical Changes (Moderate) Clinical Problem Acute Disease or Injury Related Malnutrition Etiology (severe) related to altered GI function and inadequate oral intake Signs/Symptoms as evidenced by 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 Germain- will adjust to regular, low fiber diet; magic cup w/ lunch for additional calories/ protein if consumed Lab / Micro Data Result Diagrams: 06/17/22 04:23 06/17/22 04:23 Labs: Laboratory Results - last 24 hr 06/16/22 11:10: POC Glucose 109 H 06/16/22 16:19: POC Glucose 127 H 06/16/22 22:57: POC Glucose 154 H 06/17/22 04:23: WBC 8.9, RBC 3.10 L, Hgb 8.9 L, Hct 27.7 L, MCV 89.4, MCH 28.7, MCHC 32.1, RDW Std Deviation 59.7 H, RDW Coeff of [place]ak 18.3 H, Plt Count 403, MPV 9.3, Immature Gran % (Auto) 2.700 H, Neut % (Auto) 71.5 H, Lymph % (Auto) 12.3 L, [place] % (Auto) 7.0, Eos % (Auto) 6.0 H, Baso % (Auto) 0.5, Absolute Neuts (auto) 6.4, Absolute Lymphs (auto) 1.09, Nucleated RBC % 0 06/17/22 04:23: Sodium 136, Potassium 3.6, Chloride 105, Carbon Dioxide 26.0, Anion Gap 5, BUN 8, Creatinine 0.24 L, Estim Creat Clear Calc 52.81, Est GFR (MDRD) Af Amer 369, Est GFR (MDRD) Non-Af 305, BUN/Creatinine Ratio 33.6 H, Glucose 102, Calcium 6.8 L, Phosphorus 2.1 L, Magnesium 1.8, Total Bilirubin 0.20, AST 18, ALT 20, Alkaline Phosphatase 96, Total Protein 5.0 L, Albumin 1.2 L, Globulin 3.8, Albumin/Globulin Ratio 0.3 L Micro: Microbiology 06/08/22 13:59 Blood Culture (Wb) - Pic Blood Culture - Preliminary 06/08/22 08:00 Blood Culture (Wb) - Port Blood Culture - Preliminary No growth in 5 days. 06/06/22 14:42 Blood Culture (Wb) - Right Wrist Blood Culture - Final No growth in 5 days. 06/06/22 15:10 Blood Culture (Wb) - Right Wrist Blood Culture - Final No growth in 5 days. 06/08/22 14:00 Sputum, Expectorated/Coughed Gram Stain - Final 06/08/22 14:00 Sputum, Expectorated/Coughed Respiratory Culture - Preliminary Gram positive cathie Possible Fungus 06/06/22 16:30 Urine Catheter - [place] Urine Culture - Final Enterobacter aerogenes Rhythm Strip Rhythm Strip: A-fib Rate: 98 Ectopy: None Physical Exam Const alert and no apparent distress General Appearance: cooperative and frail HEENT normocephalic and head/scalp atraumatic Eyes PERRL, EOMs intact bilaterally and conjunctivae normal Neck supple General: trachea midline Chest inspection of chest normal Resp normal air movement and clear to auscultation bilaterally Auscultation: diminished lung sounds; Negative for rales, rhonchi or wheezes Cardio regular rate, regular rhythm, S1 normal heart sound and S2 normal heart sound GI normal to inspection, nondistended, normoactive bowel sounds, non-tender and non-distended Extremity no clubbing, cyanosis or edema Skin no rashes or lesions noted Neuro oriented x3, CN's II-XII intact bilaterally, moves all extremities and no focal motor deficits Psych Mood & Affect: flat affect Charges/Coding Visit Charges Inpatient E&M: 57439 Subs Hosp L2
[2022-06-17] MEDS: APIXABAN 5 MG TABLET PO ×2 (08:48→20:52)
[2022-06-17] MEDS: Sertraline 50 MG Tablet 25 MG PO (08:48)
[2022-06-17] MEDS: Tamsulosin HCl 0.4 MG Capsule PO ×2 (08:49→20:52)
[2022-06-17] MEDS: Voriconazole 200 MG Tablet PO ×2 (08:49→20:51)
[2022-06-17] MEDS: Sucralfate 1 GM Tablet PO ×4 (08:49→20:52)
[2022-06-17] MEDS: Midodrine HCl 5 MG Tablet 15 MG PO ×3 (08:49→16:32)
[2022-06-17] MEDS: Pantoprazole Sodium 40 MG Tablet PO ×2 (08:49→20:53)
[2022-06-17] MEDS: Digoxin 125 MCG Tablet PO (08:50)
[2022-06-17] MEDS: Magnesium Chloride 64 MG Delay Rel.Tablet 128 MG PO ×2 (08:50→20:53)
[2022-06-17] MEDS: Na Biphos/Potassium Phosphate PACKET 1 PACKET PO ×4 (11:09→20:51)
[2022-06-17 11:11] LABS: Bedside Glucose 102 mg/dL (74-106)
[2022-06-17] MEDS: Insulin Lispro 100 UNIT/ML INSULN.PEN SC ×2 (11:14→16:31)
[2022-06-17 11:51] LABS: Bedside Glucose 159 mg/dL (74-106)
--- NOTE | 2022-06-17 13:17 | PCM.PN.HOSP ---
Subjective Subjective Follow-up for acute hypoxic respiratory failure/acute on chronic anemia/electrolyte imbalances: Patient was seen and examined.? No acute complaints. She complains of poor sleep. Patient's feels improved. Objective Data Objective Data Vital Signs: Vital Signs Temp Pulse Resp BP Pulse Ox O2 Del Method O2 Flow Rate 97.9 F 95 16 84/52 L 97 Nasal Cannula 2 06/17/22 12:56 06/17/22 12:56 06/17/22 12:56 06/17/22 12:56 06/17/22 12:56 06/17/22 12:56 06/17/22 12:56 FiO2 93 06/15/22 04:00 Oxygen Flow Rate (L/min) 2 Oxygen Delivery Method Nasal Cannula Weight: 77.8 kg Body Mass Index (BMI) 21.9 Intake & Output: Intake and Output for Last 24 Hours 06/15/22 06/16/22 06/17/22 23:59 23:59 23:59 Intake Total 1138 / 1138 800 / 800 304 / 304 Output Total 1050 / 1050 1900 / 2050 1100 / 1100 Balance 88 / 88 -1100 / -1250 -796 / -796 Medical Nutrition Assessment Dietitian: Malnutrition Criteria Met Start: 06/07/22 11:00 Freq: Status: Active Protocol: Document 06/13/22 09:20 AG (Rec: 06/13/22 09:20 AG [id number]) Nutrition Malnutrition Evidence of Malnutrition Exists Yes Malnutrition (severe): Acute Illness/Injury Evidenced By Suboptimal Energy Intake ( Severe),Weight Loss (Severe), Physical Changes (Moderate) Clinical Problem Acute Disease or Injury Related Malnutrition Etiology (severe) related to altered GI function and inadequate oral intake Signs/Symptoms as evidenced by 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 Germain- will adjust to regular, low fiber diet; magic cup w/ lunch for additional calories/ protein if consumed Lab / Micro Data Result Diagrams: 06/17/22 04:23 06/17/22 04:23 Labs: Laboratory Results - last 24 hr 06/16/22 16:19: POC Glucose 127 H 06/16/22 22:57: POC Glucose 154 H 06/17/22 04:23: WBC 8.9, RBC 3.10 L, Hgb 8.9 L, Hct 27.7 L, MCV 89.4, MCH 28.7, MCHC 32.1, RDW Std Deviation 59.7 H, RDW Coeff of [place]ak 18.3 H, Plt Count 403, MPV 9.3, Immature Gran % (Auto) 2.700 H, Neut % (Auto) 71.5 H, Lymph % (Auto) 12.3 L, [place] % (Auto) 7.0, Eos % (Auto) 6.0 H, Baso % (Auto) 0.5, Absolute Neuts (auto) 6.4, Absolute Lymphs (auto) 1.09, Nucleated RBC % 0 06/17/22 04:23: Sodium 136, Potassium 3.6, Chloride 105, Carbon Dioxide 26.0, Anion Gap 5, BUN 8, Creatinine 0.24 L, Estim Creat Clear Calc 52.81, Est GFR (MDRD) Af Amer 369, Est GFR (MDRD) Non-Af 305, BUN/Creatinine Ratio 33.6 H, Glucose 102, Calcium 6.8 L, Phosphorus 2.1 L, Magnesium 1.8, Total Bilirubin 0.20, AST 18, ALT 20, Alkaline Phosphatase 96, Total Protein 5.0 L, Albumin 1.2 L, Globulin 3.8, Albumin/Globulin Ratio 0.3 L 06/17/22 06:47: POC Glucose 102 06/17/22 11:12: POC Glucose 159 H Micro: Microbiology 06/08/22 13:59 Blood Culture (Wb) - Pic Blood Culture - Preliminary 06/08/22 08:00 Blood Culture (Wb) - Port Blood Culture - Preliminary No growth in 5 days. 06/06/22 14:42 Blood Culture (Wb) - Right Wrist Blood Culture - Final No growth in 5 days. 06/06/22 15:10 Blood Culture (Wb) - Right Wrist Blood Culture - Final No growth in 5 days. 06/08/22 14:00 Sputum, Expectorated/Coughed Gram Stain - Final 06/08/22 14:00 Sputum, Expectorated/Coughed Respiratory Culture - Preliminary Gram positive cathie Possible Fungus 06/06/22 16:30 Urine Catheter - [place] Urine Culture - Final Enterobacter aerogenes Rhythm Strip Rhythm Strip: A-fib Rate: 98 Ectopy: None Physical Exam Narrative Physical exam: General: Alert, Oriented x3, Cooperative, appears frail, on 2 L oxygen HEENT: Atraumatic Oral: Moist Mucosa Neck: Supple Lungs: Diminished to auscultation Cardiovascular: HS I+II, regular, no murmurs Abdomen: Bowel Sounds Present, Soft, Non Tender Extremities: No edema Skin: No rashes, No breakdown Neurological: Grossly intact Psych/Mental Status: Appropriate Assessment & Plan Assessment/Plan (1) Acute upper gastrointestinal bleeding: (2) Hemorrhagic shock: (3) Acute respiratory failure with hypoxia: (4) Dehydration: (5) Hypophosphatemia: (6) Acute blood loss anemia: (7) Hypotension: (8) Debility: (9) Urinary retention: (10) Hypomagnesemia: (11) Hypokalemia: PLAN: Plan 1. Acute hemorrhagic shock secondary to Acute upper GI bleed, resolved EGD performed on 06/11/2022 and noted grade B reflux esophagitis, chronic gastritis with hemorrhage which was treated with heater probe, and nonbleeding duodenal diverticulum, a nonbleeding jejunal diverticulum, and 1 nonbleeding jejunal ulcer with no stigmata of bleeding, biopsy showed gastric mucosa Continue on IV PPI, Carafate 2. Acute hypoxic respiratory failure, improved, remains on 2 L of oxygen 3. 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 twice daily for 8 to 12 weeks of therapy with a stop date of 08/31/2022 Pulmonology following 4. Acute on chronic anemia secondary to acute blood loss anemia from #1 Hemoglobin is currently 8.9, status post 3 units packed RBC transfusion 5. Hypophosphatemia/hypomagnesemia, replaced, recheck in a.m. 6. Paroxysmal atrial fibrillation, rate controlled, continue metoprolol, digoxin and Eliquis 7. Type II DM, on metformin on hold, continue on insulin sliding scale 8. Hyperlipidemia, continue statin 9. DVT PPx- on Eliquis Charges/Coding Visit Charges Inpatient E&M: 63770 Subs Hosp L2
--- NOTE | 2022-06-17 14:12 | CASEMGMT ---
Addendum entered by Erin Smith 06/17/22 15:11: SW went back to patient's room. Patient was awake. SW introduced self. SW asked patient about Healthcare Power of Rental Car [employer]erry [employer] and Healthcare Living Will. Patient said she is too tired right now as she did not get any sleep last night. She asked that SW come back another time. SW will check back as able. Erin MARTINEZ Original Note: HEMAL noted patient is interested in more information on advance directives. SW went to patient's room, but she was sleeping. SW will check back as able. Erin MARTINEZ
[2022-06-17 16:55] LABS: Bedside Glucose 155 mg/dL (74-106)
[2022-06-17] MEDS: Atorvastatin Calcium 20 MG Tablet PO (20:52)
[2022-06-17 22:11] LABS: Bedside Glucose 122 mg/dL (74-106)
[2022-06-18] VITALS (12 sets, daily range): BP systolic 94–103; BP diastolic 46–62; PULSE 75–95; RESP 16–18; TEMP 36.1–36.7; O2SAT 94–97
[2022-06-18 05:53] LABS: Absolute Neutrophil Count 6.1 X10^3/uL (2.0-7.7); Basophil# 0.03 X10^3/uL; Basophil% 0.3 % (0-1); Eosinophils% 4.6 % (0-5); Hemoglobin 8.5 g/dL (12.0-15.0); Lymphocyte % 13.9 % (19-41); Mean Corp Hgb Conc 31.5 g/dL (32-36); Mean Corpuscular Hgb 27.9 pg (27.0-32.0); Mean Corpuscular Volume 88.5 fL (81-99); Mean Platelet Vol. 9.3 fl (6.2-12.0); Monocyte# 0.58 X10^3/uL; Monocyte% 6.7 % (0-10); NRBC Flagged by Analyzer 0 % (0-5); Neutrophil # 6.14 X10^3/uL (2.7-7.7); Neutrophil % 71.3 % (47-70); Platelet Count 409 K/mm3 (150-450); RBC Distribution Width CV 18.1 % (11.6-14.6); RBC Distribution Width SD 59.3 fl (35.1-43.9); Red Blood Count 3.05 M/mm3 (4.2-5.4); White Blood Count 8.6 K/mm3 (4.4-11.0)
[2022-06-18] MEDS: Nystatin Powder 15gm Bottle 1 APPLIC TOPICAL (06:34)
[2022-06-18] MEDS: Sucralfate 1 GM Tablet PO ×2 (06:34→11:01)
[2022-06-18 06:36] LABS: ALB/GLOB Ratio 0.3 RATIO (0.9-2.4); AST(SGOT) 16 U/L (15-37); Alanine Aminotransfer ALT/SGPT 19 U/L (13-56); Alkaline Phosphatase 89 U/L (45-117); Anion Gap 6 (5-15); BUN 8 mg/dL (7-18); BUN/Creat Ratio 43.7 RATIO (10-20); Chloride 104 mmol/L (98-107); Creatinine, Serum 0.18 mg/dL (0.55-1.02); EST Glomerular Filtration Rate 413 mL/min (>60); Est Glom Filt Rate - Afr Amer 500 mL/min (>60); Estimated Creatinine Clearance 52.81 ml/min; Globulin 3.8 g/dL (2.2-4.2); Glucose 93 mg/dL (74-106); Potassium 4.2 mmol/L (3.5-5.1); Protein, Total 4.8 g/dL (6.4-8.2); Sodium Level 136 mmol/L (136-145)
[2022-06-18] MEDS: Ipratropium/Albuterol Sulfate 3 ML AMPUL.NEB INHALATION (07:05)
[2022-06-18 07:31] LABS: Bedside Glucose 105 mg/dL (74-106)
[2022-06-18 07:32] LABS: Magnesium 2.1 mg/dL (1.6-2.6); Phosphorus 2.6 mg/dL (2.5-4.9)
--- NOTE | 2022-06-18 08:20 | PN.CC_ITS ---
Assessment & Plan Assessment/Plan (1) Hemorrhagic shock: PLAN: Plan RECOMMENDATIONS: 1. Continue antimicrobials along with antifungal therapy per ID recommendations. 2. Zofran as necessary for nausea 3. Continue PPI therapy as ordered. Monitor for signs of lower GI bleed. 4. Continue to monitor blood counts and transfuse for hemoglobin greater than 7 g/dL. 5. Increase activity as tolerated 6. Continue scheduled midodrine. 7. Continue to wean supplemental oxygen as tolerated for saturations greater than 90%. 8. Okay to proceed with discharge planning from my perspective with next bowel movement is not bloody IMPRESSIONS: 1. Hemorrhagic shock Improved. The patient presented to the hospital after recently being admitted with COVID-19 pneumonia with acute blood loss anemia and associated lethargy and weakness. She has been transfused blood products with blood counts remaining stable. Patient has tolerated discontinuation of pressors. Continue to monitor the patient clinically. The patient did undergo upper endoscopy with intervention performed by gastroenterology. In addition to the aforementioned, she will remain on scheduled midodrine. Continue to monitor blood counts and transfuse if hemoglobin drops below 7 g/dL. Continue PPI therapy as ordered. Patient with new nausea, but no signs of clinical bleeding reported. H&H has remained stable. 2. Acute hypoxemic respiratory failure The patient has been on supplemental oxygen following her discharge from the hospital recently for COVID-19 pneumonia. Her hospital course was co mplicated by Legionella pneumonia. 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 The patient remains on antifungal therapy per ID recommendations. Continue to wean supplemental oxygen to maintain saturations at or above 90%. Largely resolved. 3. Chronic atrial fibrillation on systemic anticoagulation In light of the patient's presenting anemia, Eliquis was held initially. Patient has tolerated digoxin and metoprolol with marginal blood pressures. Patient appears to be tolerating Eliquis at this time. May have to hold if patient develops GI symptoms consistent with bleed. 4. Hypophosphatemia Aggressive electrolyte repletion as ordered. Clinical suspicion for refeeding syndrome 5. Recent COVID-19 hospitalization/diabetes mellitus/hyperlipidemia/GERD Complicates care, management, recovery and prognosis. Continue PPI therapy as ordered. 6. Urinary retention Patient with protracted [place] placement previously. Patient is not reporting any abdominal pain at this time, so we will continue to monitor clinically. Chemistries are not suggestive of kidney injury. Subjective Subjective Patient has done well from a hemodynamic standpoint. However, patient states that she was having bowel movements overnight, which is not normal for her. Patient is not aware of these being melanotic or black. Patient overall states that she feels relatively improved from yesterday. Patient has received Zofran secondary to nausea. No emesis has been reported. Objective Data Objective Data Vital Signs: Vital Signs Temp Pulse Resp BP Pulse Ox O2 Del Method O2 Flow Rate 36.3 C L 80 18 96/51 L 94 Nasal Cannula 2 06/18/22 06:29 06/18/22 07:30 06/18/22 07:30 06/18/22 06:29 06/18/22 07:44 06/18/22 07:44 06/18/22 07:44 FiO2 93 06/15/22 04:00 Oxygen Flow Rate (L/min) 2 Oxygen Delivery Method Nasal Cannula Weight: 77.8 kg Body Mass Index (BMI) 21.9 Intake & Output: Intake and Output for Last 24 Hours 06/16/22 06/17/22 06/18/22 23:59 23:59 23:59 Intake Total 800 / 800 804 / 804 Output Total 1900 / 2050 1650 / 1650 400 / 400 Balance -1100 / -1250 -846 / -846 -400 / -400 Medical Nutrition Assessment Dietitian: Malnutrition Criteria Met Start: 06/07/22 11:00 Freq: Status: Active Protocol: Document 06/13/22 09:20 (Rec: 06/13/22 09:20 [id number]) Nutrition Malnutrition Evidence of Malnutrition Exists Yes Malnutrition (severe): Acute Illness/Injury Evidenced By Suboptimal Energy Intake ( Severe),Weight Loss (Severe), Physical Changes (Moderate) Clinical Problem Acute Disease or Injury Related Malnutrition Etiology (severe) related to altered GI function and inadequate oral intake Signs/Symptoms as evidenced by 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 Germain- will adjust to regular, low fiber diet; magic cup w/ lunch for additional calories/ protein if consumed Lab / Micro Data Attestation: I reviewed the patient's lab results. Result Diagrams: 06/18/22 05:31 06/18/22 05:31 Labs: Laboratory Results - last 24 hr 06/17/22 06:47: POC Glucose 102 06/17/22 11:12: POC Glucose 159 H 06/17/22 16:29: POC Glucose 155 H 06/17/22 20:50: POC Glucose 122 H 06/18/22 05:31: WBC 8.6, RBC 3.05 L, Hgb 8.5 L, Hct 27.0 L, MCV 88.5, MCH 27.9, MCHC 31.5 L, RDW Std Deviation 59.3 H, RDW Coeff of [place]ak 18.1 H, Plt Count 409, MPV 9.3, Immature Gran % (Auto) 3.200 H, Neut % (Auto) 71.3 H, Lymph % (Auto) 13.9 L, [place] % (Auto) 6.7, Eos % (Auto) 4.6, Baso % (Auto) 0.3, Absolute Neuts (auto) 6.1, Absolute Lymphs (auto) 1.20, Nucleated RBC % 0 06/18/22 05:31: Sodium 136, Potassium 4.2, Chloride 104, Carbon Dioxide 26.0, An ion Gap 6, BUN 8, Creatinine 0.18 L, Estim Creat Clear Calc 52.81, Est GFR (M DRD) Af Amer 500, Est GFR (MDRD) Non-Af 413, BUN/Creatinine Ratio 43.7 H, Glu cose 93, Calcium 7.0 L, Total Bilirubin 0.20, AST 16, ALT 19, Alkaline Phosph atase 89, Total Protein 4.8 L, Albumin 1.0 L, Globulin 3.8, Albumin/Globulin Ratio 0.3 L 06/18/22 05:31: Phosphorus 2.6, Magnesium 2.1 06/18/22 06:32: POC Glucose 105 Micro: Microbiology 06/08/22 08:00 Blood Culture (Wb) - Central Line Fungal Smear - Final 06/08/22 14:00 Sputum, Expectorated/Coughed Fungal Smear - Final 06/08/22 13:59 Blood Culture (Wb) - Pic Blood Culture - Preliminary 06/08/22 08:00 Blood Culture (Wb) - Port Blood Culture - Preliminary No growth in 5 days. 06/06/22 14:42 Blood Culture (Wb) - Right Wrist Blood Culture - Final No growth in 5 days. 06/06/22 15:10 Blood Culture (Wb) - Right Wrist Blood Culture - Final No growth in 5 days. 06/08/22 14:00 Sputum, Expectorated/Coughed Gram Stain - Final 06/08/22 14:00 Sputum, Expectorated/Coughed Respiratory Culture - Preliminary Gram positive cathie Possible Fungus 06/06/22 16:30 Urine Catheter - [place] Urine Culture - Final Enterobacter aerogenes Rhythm Strip Rhythm Strip: A-fib Rate: 88 Ectopy: None Physical Exam Const alert and no apparent distress General Appearance: cooperative and frail HEENT normocephalic and head/scalp atraumatic Eyes PERRL, EOMs intact bilaterally and conjunctivae normal Neck supple General: trachea midline Chest inspection of chest normal Resp normal air movement and clear to auscultation bilaterally Auscultation: diminished lung sounds; Negative for rales, rhonchi or wheezes Cardio regular rate, regular rhythm, S1 normal heart sound and S2 normal heart sound GI normal to inspection, nondistended, normoactive bowel sounds, soft to palpation, non-tender and non-distended Extremity no clubbing, cyanosis or edema General Extremity: Negative for edema Skin no rashes or lesions noted Neuro oriented x3, CN's II-XII intact bilaterally, moves all extremities and no focal motor deficits Psych Mood & Affect: flat affect Charges/Coding Visit Charges Inpatient E&M: 16201 Subs Hosp L2
[2022-06-18] MEDS: APIXABAN 5 MG TABLET PO (09:06)
[2022-06-18] MEDS: Voriconazole 200 MG Tablet PO (09:07)
[2022-06-18] MEDS: Metoprolol Tartrate 25 MG Tablet 12.5 MG PO (09:07)
[2022-06-18] MEDS: Sertraline 50 MG Tablet 25 MG PO (09:07)
[2022-06-18] MEDS: Tamsulosin HCl 0.4 MG Capsule PO (09:07)
[2022-06-18] MEDS: Midodrine HCl 5 MG Tablet 15 MG PO ×2 (09:08→12:47)
[2022-06-18] MEDS: Digoxin 125 MCG Tablet PO (09:08)
[2022-06-18] MEDS: Pantoprazole Sodium 40 MG Tablet PO (09:08)
[2022-06-18] MEDS: Magnesium Chloride 64 MG Delay Rel.Tablet 128 MG PO (09:09)
--- NOTE | 2022-06-18 11:03 | TREXTCAR_ITS ---
Diet Diet Order/Speech Therapy: 06/13/22 09:12 Diet: Regular - General Dietary Modifications:: Fiber Restricted Type of Dietary Supplement:: Magic Cup Dessert Is pt able to select menu?: Yes Diet Comments: chocolate MC at lunch Routine Orders/Code Status Suppository Type: Dulcolax 10mg Suppository Frequency: Daily PRN Routine Lab Work: CBC (within 3 days) and - (CMP within 3 days) Code Status: Full Code Wound(s) right buttock: Wound Type: shear/IAD left buttock: Wound Type: shear/IAD RT Labia: Wound Type: Blistering Therapies Weight Bearing: Weight bearing as tolerated Problem/Diagnosis (1) Hemorrhagic shock: Status: Acute Code(s): R57.8 - Other shock Plan 1. Acute hemorrhagic shock secondary to Acute upper GI bleed, 2. Acute hypoxic respiratory failure 3. Possible Aspergillus pneumonia 4. Acute on chronic anemia/acute blood loss anemia 5. Hypophosphatemia/hypomagnesemia 6. Paroxysmal atrial fibrillation 7. Type II DM 8. Hyperlipidemia Allergies/Procedures Done in Hospital Allergies No Known Allergies Allergy (Verified 06/06/22 14:17) Procedures: None Type of Care/Length of Stay Estimated LOS: Convalescent Care Less Than 30 days Type of Care Needed: Skilled Rehab Potential: Good Prognosis: Good Additional Orders/Day of Discharge Day of Discharge: 06/18/22 Dietary and Speech Recommendations Dietitian Recommendations/Changes: regular, low fiber diet; magic cup w/ lunch and Og BID for additional calories/protein if consumed; advance fiber content of diet as indicated by physician. Discharge Plan Admission Admit Date/Time: 06/06/22 21:01 Primary Reason for Your Visit: Severe anemai, GI bleed Attending Provider: Stefany Bynum Primary Care Provider: Misael Molina Consulting Providers: Gerald Low ; Dax Barksdale ; Jackson Graham ; Travis Germain ; Aric Hernandez ; Roselyn Polanco NP ; Shwetha Antonio Discharge Orders/Prescriptions Prescriptions: New acetaminophen 500 mg Tablet 1,000 mg PO Q8H PRN PRN (Reason: Pain 1-10 Or Fever) Qty: 0 0RF sucralfate 1 gram Tablet 1 g PO 1HR_ACHS Qty: 0 0RF midodrine 5 mg Tablet 15 mg PO TIDCM Qty: 0 0RF tamsulosin 0.4 mg Capsule 0.4 mg PO BID Qty: 0 0RF pantoprazole 40 mg Tablet,Delayed Release (Dr/Ec) 40 mg PO BID Qty: 0 0RF digoxin 125 mcg (0.125 mg) Tablet 125 mcg PO DAILY Qty: 0 0RF nystatin [Nyamyc] 100,000 unit/gram Powder 1 applic topical TID Qty: 0 0RF Protocol: *Topical Application Instructions APPLICATION INSTRUCTIONS: groin sertraline 50 mg Tablet 25 mg PO DAILY Qty: 0 0RF voriconazole 200 mg Tablet 200 mg PO BID Qty: 0 0RF Rx Instructions: stop date of 08/31/2022 metoprolol tartrate 25 mg Tablet 12.5 mg PO BID Qty: 0 0RF Mag 64 64 mg Tablet,Delayed Release (Dr/Ec) 128 mg PO BID Qty: 0 0RF Og (with collagen) 7-7-1.5 gram Powder In Packet 1 packet PO BIDCM Qty: 0 0RF Continued metformin 500 mg tablet 500 mg PO DAILY Label Comments: TAKE 1 TABLET BY MOUTH ONCE DAILY atorvastatin 20 mg tablet 20 mg PO QHS Label Comments: TAKE 1 TABLET BY MOUTH ONCE DAILY ondansetron HCl 4 mg tablet 4 mg PO TID PRN PRN (Reason: Nausea) alendronate 70 mg tablet 70 mg PO MO Label Comments: TAKE 1 TABLET BY MOUTH ONCE A WEEK. TAKE BEFORE FOOD OR DRINK AND SIT UPRIGHT FOR 30 MINUTES AFTER TAKING methenamine hippurate 1 gram tablet 1 g PO QHS Label Comments: TAKE 1 TABLET BY MOUTH EVERY DAY AT BEDTIME Eliquis 5 mg Tablet 5 mg PO BID Qty: 0 0RF ipratropium-albuterol 0.5 mg-3 mg(2.5 mg base)/3 mL Solution For Nebulization 3 ml inhalation 4X/DAY Qty: 0 0RF Deep Sea Nasal 0.65 % Aerosol,[place] 1 spray NASAL BID Qty: 0 0RF omeprazole 20 mg Capsule,Delayed Release(Dr/Ec) 40 mg PO DAILY Discontinued insulin glargine-yfgn 100 unit/mL (3 mL) Insulin Pen 10 unit subcut DAILY Qty: 0 0RF insulin lispro [Humalog Pen] 100 unit/mL Insulin Pen See Protocol SUBCUT TID Protocol: 6. Sliding Scale Insulin Custom Condition: 200-250 mg/dl range Dose/Route: 5 units Condition: 251-300 mg/dl range Dose/Route: 8 units Condition: 301-350 mg/dl range Dose/Route: 12 units Protocol Text: Custom Sliding Scale diltiazem HCl 120 mg capsule,extended release 24hr 120 mg PO BID Referrals / Follow Up: Alberta Browne MD [Med Staff - Active Staff] - Within 2 Weeks Misael Molina MD [Primary Care Provider] - None Disposition Disposition (needs filled in before D/C Order can be placed): [facility] Facility
--- NOTE | 2022-06-18 11:05 | DS.PCM_ITS ---
Providers Date of Admission: 06/06/22 Date of Discharge: 06/18/22 Primary Care Physician: Dr. 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 / Pulmonary Medicine Routine Consulting Provider: Pulmonary Medicine cayden Carbon Reason for Consult: shock EMERGENT Consult: No Notified: Yes Date Notified: 06/06/22 Time Notified: 21:13 Method of Notification: Verbal 06/08/22 06:54 Consult: Infectious Disease Routine Consulting Provider: Dax Barksdale Reason for Consult: Aspergillus EMERGENT Consult: No Notified: Yes Date Notified: 06/08/22 Time Notified: 09:22 Method of Notification: Answering Service 06/10/22 09:55 Consult: Onc/Wound/awnings mechanic Routine Comment: Reason for Consult:: Several open areas to buttocks/coccyx/[place] area Reason For Visit: HEMORRHAGIC SHOCK, UPPER GI BLEED, PNEUMONIA Diagnosis Discharge Diagnosis (1) Hemorrhagic shock: Status: Acute Code(s): R57.8 - Other shock Plan 1. Acute hemorrhagic shock secondary to Acute upper GI bleed, 2. Acute hypoxic respiratory failure 3. Possible Aspergillus pneumonia 4. Acute on chronic anemia/acute blood loss anemia 5. Hypophosphatemia/hypomagnesemia 6. Paroxysmal atrial fibrillation 7. Type II DM 8. Hyperlipidemia Medications at Discharge Home Medications alendronate 70 mg tablet 70 mg PO MO Osteoporosis 05/18/22 atorvastatin 20 mg tablet 20 mg PO QHS Cholestrol 05/18/22 metformin 500 mg tablet 500 mg PO DAILY BP 05/18/22 methenamine hippurate 1 gram tablet 1 g PO QHS Decrease UTI 05/18/22 ondansetron HCl 4 mg tablet 4 mg PO TID PRN PRN Nausea 05/18/22 omeprazole 20 mg capsule,delayed release 40 mg PO DAILY GERD 06/06/22 acetaminophen 500 mg tablet 1,000 mg PO Q8H PRN PRN Pain 1-10 Or Fever #0 tabs 06/18/22 apixaban 5 mg tablet (Eliquis) 5 mg PO BID Blood thinner 06/18/22 arginine 7 gram-glutam 7 gram-CaHMB 1.5 [id number]-[id number] oral pwd pkt (Og (with collagen)) 1 packet PO BIDCM Supplement 06/18/22 digoxin 125 mcg (0.125 mg) tablet 125 mcg PO DAILY BP 06/18/22 ipratropium 0.5 mg-albuterol 3 mg (2.5 mg base)/3 mL nebulization soln 3 ml inhalation 4X/DAY Breathing 06/18/22 magnesium chloride 64 mg (magnesium chloride) tablet,delayed release (Mag 64) 128 mg PO BID Supplement 06/18/22 metoprolol tartrate 25 mg tablet 12.5 mg PO BID BP 06/18/22 midodrine 5 mg tablet 15 mg PO TIDCM BP 06/18/22 nystatin 100,000 unit/gram topical powder (Nyamyc) 1 applic topical TID Skin irritation 06/18/22 pantoprazole 40 mg tablet,delayed release 40 mg PO BID GERD 06/18/22 sertraline 50 mg tablet 25 mg PO DAILY Depression 06/18/22 sodium chloride 0.65 % nasal spray aerosol (Deep Sea Nasal) 1 spray NASAL BID Na harshad spray 06/18/22 sucralfate 1 gram tablet 1 g PO 1HR_ACHS Stomach 06/18/22 tamsulosin 0.4 mg capsule 0.4 mg PO BID Urine retention 06/18/22 voriconazole 200 mg tablet 200 mg PO BID Antinfungal 06/18/22 Hospital Course Operations None Procedures None Summary of Care Provided Minutes Spent on Discharge: 45 Hospital Course: 72-year-old female with past medical history of type II DM, paroxysmal atrial fibrillation who was admitted to the hospital from a correction facility. She had recently been discharged after hospitalization for pneumonia respiratory failure. Patient had complained of shortness of breath and was found to be hypotensive at the [facility]. In the ED, patient was noted to have maroon- colored stools. Her blood pressure was low, 83/66. She was initially admitted to ICU for acute GI bleed, hemorrhagic shock. She was continued on IV PPI and octreotide drip. She was also started on antibiotics to cover for aspiration. Patient underwent EGD that showed LA grade B, no evidence of bleeding, severe diffuse inflammation with hemorrhage characterized by congestion, erythema and friability in the entire stomach. This was anticoagulated with the heater probe. A 5 mm nonbleeding diverticulum was found in the second portion of the duodenum as well as a 4 mm nonbleeding diverticulum in the jejunum. A nonbleeding cratered ulcer with no stigmata of bleeding was found in the jejunum. The lesion was 6 mm in the largest diameter. Biopsies were taken with cold forceps for histology. Histology showed gastric metaplasia. Patient received 3 units of packed RBCs altogether. Pulmonology was following patient from admission. She was started on voriconazole when her sputum cultures grew Aspergillus. She will continue on this until 08/31/22. Infectious disease was consulted. She had electrolyte imbalances - hypokalemia, hypomagnesemia, hypophosphatemia. Patient was noted during this hospital stay to be depressed. She was not willing to work with therapy. Discussed with patient and her daughter, agreeable to start of Zoloft, will start Zoloft 25mg. Patient was also resumed on Eliquis. Hemoglobin remained stable. She was discharged to transitional care unit. She will follow-up with Dr. Mcmanus within 2 weeks. Physical Exam Narrative Physical exam: General: Alert, Oriented x3, Cooperative, appears frail, on 2 L oxygen HEENT: Atraumatic Oral: Moist Mucosa Neck: Supple Lungs: Diminished to auscultation Cardiovascular: HS I+II, regular, no murmurs Abdomen: Bowel Sounds Present, Soft, Non Tender Extremities: No edema Skin: No rashes, No breakdown Neurological: Grossly intact Psych/Mental Status: Appropriate Medical Records Data Medical Nutrition Assessment Dietitian: Malnutrition Criteria Met Start: 06/07/22 11:00 Freq: Status: Active Protocol: Document 06/13/22 09:20 (Rec: 06/13/22 09:20 [id number]) Nutrition Malnutrition Evidence of Malnutrition Exists Yes Malnutrition (severe): Acute Illness/Injury Evidenced By Suboptimal Energy Intake ( Severe),Weight Loss (Severe), Physical Changes (Moderate) Clinical Problem Acute Disease or Injury Related Malnutrition Etiology (severe) related to altered GI function and inadequate oral intake Signs/Symptoms as evidenced by 8.7% weight loss in <1 month 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 Germain- will adjust to regular, low fiber diet; magic cup w/ lunch for additional calories/ protein if consumed Weight / BMI Weight Weight: 77.8 kg Body Mass Index (BMI) 21.9 ABG / Lab / Microbiology Data Result Diagrams: 06/18/22 05:31 06/18/22 05:31 Laboratory: Laboratory Results - last 24 hr 06/17/22 06:47: POC Glucose 102 06/17/22 11:12: POC Glucose 159 H 06/17/22 16:29: POC Glucose 155 H 06/17/22 20:50: POC Glucose 122 H 06/18/22 05:31: WBC 8.6, RBC 3.05 L, Hgb 8.5 L, Hct 27.0 L, MCV 88.5, MCH 27.9, MCHC 31.5 L, RDW Std Deviation 59.3 H, RDW Coeff of [place] 18.1 H, Plt Count 409, MPV 9.3, Immature Gran % (Auto) 3.200 H, Neut % (Auto) 71.3 H, Lymph % (Auto) 13.9 L, [place] % (Auto) 6.7, Eos % (Auto) 4.6, Baso % (Auto) 0.3, Absolute Neuts (auto) 6.1, Absolute Lymphs (auto) 1.20, Nucleated RBC % 0 06/18/22 05:31: Sodium 136, Potassium 4.2, Chloride 104, Carbon Dioxide 26.0, Anion Gap 6, BUN 8, Creatinine 0.18 L, Estim Creat Clear Calc 52.81, Est GFR (MDRD) Af Amer 500, Est GFR (MDRD) Non-Af 413, BUN/Creatinine Ratio 43.7 H, Glucose 93, Calcium 7.0 L, Total Bilirubin 0.20, AST 16, ALT 19, Alkaline Phosphatase 89, Total Protein 4.8 L, Albumin 1.0 L, Globulin 3.8, Albumin/Globulin Ratio 0.3 L 06/18/22 05:31: Phosphorus 2.6, Magnesium 2.1 06/18/22 06:32: POC Glucose 105 Microbiology: Microbiology 06/08/22 08:00 Blood Culture (Wb) - Central Line Fungal Smear - Final 06/08/22 14:00 Sputum, Expectorated/Coughed Fungal Smear - Final 06/08/22 13:59 Blood Culture (Wb) - Pic Blood Culture - Preliminary 06/08/22 08:00 Blood Culture (Wb) - Port Blood Culture - Preliminary No growth in 5 days. 06/06/22 14:42 Blood Culture (Wb) - Right Wrist Blood Culture - Final No growth in 5 days. 06/06/22 15:10 Blood Culture (Wb) - Right Wrist Blood Culture - Final No growth in 5 days. 06/08/22 14:00 Sputum, Expectorated/Coughed Gram Stain - Final 06/08/22 14:00 Sputum, Expectorated/Coughed Respiratory Culture - Preliminary Gram positive cathie Possible Fungus 06/06/22 16:30 Urine Catheter - [place] Urine Culture - Final Enterobacter aerogenes D/C Instructions Discharge Diet: 2000 mg Sodium Diet and Carb Control Diet Meaningful Use Info Meaningful Use Diagnoses (Choose all that apply): None applicable Discharge Plan Admission Admit Date/Time: 06/06/22 21:01 Primary Reason for Your Visit: Severe anemia, Acute GI bleed Attending Provider: Stefany Bynum Primary Care Provider: Misael Molina Consulting Providers: Gerald Low ; Dax Barksdale ; Jackson Graham ; Travis Germain ; Aric Hernandez ; Roselyn Polanco NP ; Shwetha Antonio Discharge Orders/Prescriptions Prescriptions: New acetaminophen 500 mg Tablet 1,000 mg PO Q8H PRN PRN (Reason: Pain 1-10 Or Fever) Qty: 0 0RF Continued metformin 500 mg tablet 500 mg PO DAILY Label Comments: TAKE 1 TABLET BY MOUTH ONCE DAILY atorvastatin 20 mg tablet 20 mg PO QHS Label Comments: TAKE 1 TABLET BY MOUTH ONCE DAILY ondansetron HCl 4 mg tablet 4 mg PO TID PRN PRN (Reason: Nausea) alendronate 70 mg tablet 70 mg PO MO Label Comments: TAKE 1 TABLET BY MOUTH ONCE A WEEK. TAKE BEFORE FOOD OR DRINK AND SIT UPRIGHT FOR 30 MINUTES AFTER TAKING methenamine hippurate 1 gram tablet 1 g PO QHS Label Comments: TAKE 1 TABLET BY MOUTH EVERY DAY AT BEDTIME omeprazole 20 mg Capsule,Delayed Release(Dr/Ec) 40 mg PO DAILY ipratropium-albuterol 0.5 mg-3 mg(2.5 mg base)/3 mL solution for nebulization 3 ml inhalation 4X/DAY sucralfate 1 gram tablet 1 g PO 1HR_ACHS midodrine 5 mg tablet 15 mg PO TIDCM tamsulosin 0.4 mg capsule 0.4 mg PO BID pantoprazole 40 mg tablet,delayed release (DR/EC) 40 mg PO BID digoxin 125 mcg (0.125 mg) tablet 125 mcg PO DAILY nystatin [Nyamyc] 100,000 unit/gram powder 1 applic topical TID Protocol: *Topical Application Instructions APPLICATION INSTRUCTIONS: groin sertraline 50 mg tablet 25 mg PO DAILY voriconazole 200 mg tablet 200 mg PO BID Rx Instructions: stop date of 08/31/2022 Deep Sea Nasal 0.65 % aerosol,spray 1 spray NASAL BID metoprolol tartrate 25 mg tablet 12.5 mg PO BID Mag 64 64 mg tablet,delayed release (DR/EC) 128 mg PO BID Eliquis 5 mg tablet 5 mg PO BID Og (with collagen) 7-7-1.5 gram powder in packet 1 packet PO BIDCM Discontinued insulin glargine-yfgn 100 unit/mL (3 mL) Insulin Pen 10 unit subcut DAILY Qty: 0 0RF insulin lispro [Humalog Pen] 100 unit/mL Insulin Pen See Protocol SUBCUT TID Protocol: 6. Sliding Scale Insulin Custom Condition: 200-250 mg/dl range Dose/Route: 5 units Condition: 251-300 mg/dl range Dose/Route: 8 units Condition: 301-350 mg/dl range Dose/Route: 12 units Protocol Text: Custom Sliding Scale diltiazem HCl 120 mg capsule,extended release 24hr 120 mg PO BID Referrals / Follow Up: Alberta Browne MD [Med Staff - Active Staff] - Within 2 Weeks Misael Molina MD [Primary Care Provider] - None Disposition Disposition (needs filled in before D/C Order can be placed): [facility] Facility Charges/Coding Visit Charges Inpatient E&M: 06647 Disch Hosp
[2022-06-18 11:31] LABS: Bedside Glucose 105 mg/dL (74-106)
--- NOTE | 2022-06-18 12:16 | CASEMGMT ---
Patient is ready for discharge to to [facility]. HEMAL notified Jessica in TCU. HEMAL met with patient and asked if she would like to complete the Healthcare Power of [employer] C[employer] and Healthcare Living Will. Patient said she is eating and she has company so not right now. HEMAL told patient, SW can let the SW in the TCU know she may want to do the documents. Patient said that would be fine. SW asked patient if she would like SW to notify anyone that she will be going to TCU today. Patient asked HEMAL to notify her daughter Noni. HEMAL called Noni and let her know patient will be going to [facility] today. Noni asked HEMAL to call her when there is a time. Erin MARTINEZ
--- NOTE | 2022-06-18 12:28 | CASEMGMT ---
Addendum entered by Erin Smith 06/18/22 12:34: A secure e-mail was sent to TCU HEMAL [facility] regarding advance directives. 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 Patient said she is eating and she has company so not right now. SW told patient, SW can let the SW in the TCU know she may want to do the documents. Patient said that would be fine. Erin MARTINEZ
--- NOTE | 2022-06-18 12:40 | NURSING ---
Called report to rios on TCU
--- NOTE | 2022-06-18 12:45 | CASEMGMT ---
RN told SW patient will be going to TCU soon. SW called patient's daughter Noni and let her know this information. Plan: d/c to [facility]CU under skilled level of care. Erin MARTINEZ
[2022-06-22 09:58] LABS: Aspirgillus niger Negative (Neg:<1:1)
== END 2022-06-18 13:36 | disposition skilled nursing facility (03) | DRG 377 ==
LOC: ED 17:52 → ICU 21:46 → PCU 06-15 15:38
PROVIDERS: Hospitalist; Internal Medicine; Internal Medicine Critical Care Medicine; Internal Medicine Gastroenterology; Admitting Provider Internal Medicine; Emergency Provider Emergency Medicine; PCP Family Medicine; Visit Provider Internal Medicine
PROC: 0DJ08ZZ Inspection of Upper Intestinal Tract, Via Natural or Artificial Opening Endoscopic (ICD-10-PCS; CPT 43235; principal; 2022-06-11 11:40)
DX: K29.71 Gastritis, unspecified, with bleeding (principal); R57.8 Other shock; J96.21 Acute and chronic respiratory failure with hypoxia; E43 Unspecified severe protein-calorie malnutrition; J18.9 Pneumonia, unspecified organism; D62 Acute posthemorrhagic anemia; I48.20 Chronic atrial fibrillation, unspecified; E87.1 Hypo-osmolality and hyponatremia; D72.10 Eosinophilia, unspecified; E83.39 Other disorders of phosphorus metabolism; J84.10 Pulmonary fibrosis, unspecified; E11.9 Type 2 diabetes mellitus without complications; Z79.4 Long term (current) use of insulin; I48.0 Paroxysmal atrial fibrillation; I95.89 Other hypotension; E88.09 Other disorders of plasma-protein metabolism, not elsewhere classified; E86.0 Dehydration; E78.5 Hyperlipidemia, unspecified; E87.70 Fluid overload, unspecified; F17.210 Nicotine dependence, cigarettes, uncomplicated; E78.00 Pure hypercholesterolemia, unspecified; E87.6 Hypokalemia; E83.42 Hypomagnesemia; K57.10 Diverticulosis of small intestine without perforation or abscess without bleeding; K29.50 Unspecified chronic gastritis without bleeding; K27.4 Chronic or unspecified peptic ulcer, site unspecified, with hemorrhage; B96.89 Other specified bacterial agents as the cause of diseases classified elsewhere; Z79.01 Long term (current) use of anticoagulants; Z79.83 Long term (current) use of bisphosphonates; M81.0 Age-related osteoporosis without current pathological fracture; Z86.16 Personal history of COVID-19; Z87.01 Personal history of pneumonia (recurrent); F32.A Depression, unspecified
CPT/HCPCS: 36415; 36600; 51702; 70450; 71045; 80048; 80053; 81001; 82533; 82803; 82962; 83605; 83735; 83880; 84100; 84484; 85014; 85018; 85025; 85610; 86146; 86606; 86850; 86900; 86901; 86920; 86922; 87040; 87070; 87077; 87086; 87088; 87102; 87107; 87186; 87205; 87206; 87426; 87811; 88305; 93005; 94640; 94667; 94668; 97110; 97161; 97166; 97530; 97535; 97802; 97803; 99251; 99285; J2185; J7030; J7040; J7050; J7120; P9016; A4216; C1751; G0463; J0610; J1940; J2354; J2405; J3465; J3490

== ENCOUNTER 2022-06-18 13:53 | Inpatient (IN) | payer MEDICARE, OTHER, SELFPAY ==
[2022-06-18 14:06] VITALS: BP 93/55; PULSE 95; RESP 16; O2SAT 95; BMI 22.3
--- NOTE | 2022-06-18 14:57 | WOUNDNOTE ---
wound photo: buttocks
--- NOTE | 2022-06-18 16:17 | NURSING ---
Patient notified of positive resident
[2022-06-18] MEDS: Sucralfate 1 GM Tablet PO ×2 (17:00→21:12)
[2022-06-18] MEDS: Midodrine HCl 5 MG Tablet 15 MG PO (17:00)
[2022-06-18] MEDS: Juven (unflavored) Packet 1 PACKET PO (17:01)
[2022-06-18] MEDS: Magnesium Chloride 64 MG Delay Rel.Tablet 128 MG PO (17:03)
[2022-06-18 17:04] VITALS: BP 94/50; PULSE 90
[2022-06-18] MEDS: Sodium Chloride 0.65% 1 SPRAY SPRAY.BTL NASAL (17:04)
[2022-06-18] MEDS: Pantoprazole Sodium 40 MG Tablet PO (17:04)
[2022-06-18] MEDS: Voriconazole 200 MG Tablet PO (17:05)
[2022-06-18] MEDS: Glucerna Shake 120 ML LIQUID PO (17:11)
[2022-06-18] MEDS: APIXABAN 5 MG TABLET PO (18:02)
[2022-06-18 18:40] VITALS: PULSE 104; RESP 20; O2SAT 92
[2022-06-18] MEDS: Ipratropium/Albuterol Sulfate 3 ML AMPUL.NEB INHALATION (18:40)
--- NOTE | 2022-06-18 20:24 | HP.PCM_ITS ---
HPI - General General Date of Admission: 06/18/22 Date of Service: 06/18/22 Chief Complaint: Here for rehabilitation. HPI Narrative 05/14/2022 Covid19, Legionella pneumonia, Nursing Home Faciilty, then independent living. 06/06/2022 CARMEN MILLER, is a 72 Female who presents to [facility] Emergency Department with change in mental status. Lethargic, hypoxic, Pulsox 90% on 7 Liters oxygen. On Eliquis for atrial fibrillation, left facial droop, CTA chest 2 weeks prior negative for pulmonary embolism. Black diarrhea, Hemoglobin 8.5. IV Antibiotics, IV fluids, right IJ line for sepsis, pneumonia. 06/06/2022 Admit to ICU. Octreotide drip, Protonix drip, stop Eliquis for GI bleed, hemorrhagic shock. Family wants intubation if necessary. Zosyn IV for bilateral pneumonia. 06/07/2022 Hemoglobin improved from 6.1 to 11.7 after 3 units PRBC transfusion. Wean Levophed for hypotension. Zosyn IV, Lasix 20mg IV for acute respiratory failure/pneumonia. Sodium improved from 120 to 131 with fluids, blood. Add Metoprolol to Cardizem to improve heart rate for atrial fibrillation. 06/08/2022 Levophed for hypotension. Sputum grew Aspergillus, consult Infectious Disease, start Voriconazole. 06/09/2022 Feeling better, Levophed for hypotension. Protonix drip for upper GI bleed. Infectious Disease recommends stopping Meropenem, continue Voriconazole for Aspergillus. 06/10/2022 Feeling much better, coughing up sputum, still on Levophed. Hemoglobin 10.3 to 9.6. 06/11/2022 Dr. Mcmanus EGD showed reflux esophagitis, chronic gastritis with hemorrhage treated. 06/12/2022 Better overall, off oxygen, still on Levophed. Octreotide drip. Carafate 1gm 4x/day for gastritis. 06/13/2022 Fever 100.1, Levophed stopped. 06/14/2022 Oxygen 2 to 4 liters, Off pressors. Start Digoxin for atrial fibrillation. 06/14/2022 Dr. Barksdale recommended oral voriconazole for 12 weeks (Stop Date 08/31/2022). 06/15/2022 Refusing therapy, Consuelo Lift, refusing to eat. 06/16/2022 Obregon replaced, Tamsulosin increased to 0.4mg twice daily for urinary retention. Midodrine 15mg tid for hypotension. 06/17/2022 Trouble sleeping. 06/18/2022 Admit to TCU with debility, here for rehabilitation, strengthening, prior to discharge home with . [facility] Medical History COVID-19 Diabetes Frequent urinary tract infections GERD (gastroesophageal reflux disease) High cholesterol Osteoarthritis Paroxysmal A-fib Home Medications alendronate 70 mg tablet 70 mg PO MO Osteoporosis 05/18/22 [History Last Taken 06/02/22] atorvastatin 20 mg tablet 20 mg PO QHS Cholestrol 05/18/22 [History Last Taken 06/05/22] metformin 500 mg tablet 500 mg PO DAILY BP 05/18/22 [History Last Taken 06/06/22] methenamine hippurate 1 gram tablet 1 g PO QHS Decrease UTI 05/18/22 [History Last Taken 06/05/22] ondansetron HCl 4 mg tablet 4 mg PO TID PRN PRN Nausea 05/18/22 [History Last Taken 06/01/22] omeprazole 20 mg capsule,delayed release 40 mg PO DAILY GERD 06/06/22 [History Last Taken 06/06/22] acetaminophen 500 mg tablet 1,000 mg PO Q8H PRN PRN Pain 1-10 Or Fever #0 tabs 06/18/22 [Rx Last Taken Unknown] apixaban 5 mg tablet (Eliquis) 5 mg PO BID Blood thinner 06/18/22 [History Last Taken Unknown] arginine 7 gram-glutam 7 gram-CaHMB 1.5 [id number]-[id number]-cw-min oral pwd pkt (Og (with collagen)) 1 packet PO BIDCM Supplement 06/18/22 [History Last Taken Unknown] digoxin 125 mcg (0.125 mg) tablet 125 mcg PO DAILY BP 06/18/22 [History Last Taken Unknown] ipratropium 0.5 mg-albuterol 3 mg (2.5 mg base)/3 mL nebulization soln 3 ml inhalation 4X/DAY Breathing 06/18/22 [History Last Taken Unknown] magnesium chloride 64 mg (magnesium chloride) tablet,delayed release (Mag 64) 128 mg PO BID Supplement 06/18/22 [History Last Taken Unknown] metoprolol tartrate 25 mg tablet 12.5 mg PO BID BP 06/18/22 [History Last Taken Unknown] midodrine 5 mg tablet 15 mg PO TIDCM BP 06/18/22 [History Last Taken Unknown] nystatin 100,000 unit/gram topical powder (Nyamyc) 1 applic topical TID Skin irritation 06/18/22 [History Last Taken Unknown] pantoprazole 40 mg tablet,delayed release 40 mg PO BID GERD 06/18/22 [History Last Taken Unknown] sertraline 50 mg tablet 25 mg PO DAILY Depression 06/18/22 [History Last Taken Unknown] sodium chloride 0.65 % nasal spray aerosol (Deep Sea Nasal) 1 spray NASAL BID Nasal spray 06/18/22 [History Last Taken Unknown] sucralfate 1 gram tablet 1 g PO 1HR_ACHS Stomach 06/18/22 [History Last Taken Unknown] tamsulosin 0.4 mg capsule 0.4 mg PO BID Urine retention 06/18/22 [History Last Taken Unknown] voriconazole 200 mg tablet 200 mg PO BID Antinfungal 06/18/22 [History Last Taken Unknown] Allergy/AdvReac Type Severity Reaction Status Date / Time No Known Allergies Allergy Verified 06/06/22 14:17 Social History (Updated 06/18/22 @ 20:[address] Art Wagner MD) household members: spouse Smoking Status: Current every day smoker tobacco type: cigarettes alcohol intake: never substance use type: does not use ROS Constitutional Constitutional: Reports difficulty sleeping, fatigue and weakness; Denies chills, fever(s) or weight gain ENT HEENT: Denies headache(s), nasal congestion or nasal discharge Cardiovascular Cardiovascular: Denies chest pain or palpitations Respiratory/Chest Respiratory/Chest: Denies cough, excessive phlegm production or shortness of breath with exertion Gastrointestinal Gastrointestinal: Denies abdominal pain, nausea or vomiting Genitourinary Genitourinary: Denies dysuria Musculoskeletal Musculoskeletal: Denies joint pain or joint swelling Integumentary Integumentary: Denies rash or wounds Neurologic Neurologic: Denies focal weakness, numbness or tingling Psychiatric Psychiatric: Denies anxiety, auditory hallucinations, depression, homicidal ideation or suicidal ideation Vital Signs Vital Signs Vital Signs: 06/18/22 14:06 06/18/22 14:06 06/18/22 17:04 Pulse Rate 95 95 90 Pulse Rhythm Irregular Pulse Strength Normal (2+) Respiratory Rate 16 Respiratory Effort Normal Non-Labored Short of Breath Respiratory Depth Normal Respiratory Pattern Normal Blood Pressure 93/55 L 94/50 L Blood Pressure Mean 67 Blood Pressure Source Monitor Blood Pressure Position Supine Blood Pressure Location Right Arm Pulse Ox 95 Oxygen Delivery Method Nasal Cannula Nasal Cannula Oxygen Flow Rate (L/min) 2 2 06/18/22 18:40 Pulse Rate 104 H Pulse Rhythm Pulse Strength Respiratory Rate 20 H Respiratory Effort Respiratory Depth Respiratory Pattern Normal Blood Pressure Blood Pressure Mean Blood Pressure Source Blood Pressure Position Blood Pressure Location Pulse Ox 92 Oxygen Delivery Method Nasal Cannula Oxygen Flow Rate (L/min) 2 Weight Weight: 66.5 kg Body Mass Index (BMI) 22.3 Physical Exam Const alert General Appearance: cooperative HEENT normocephalic Eyes PERRL and EOMs intact bilaterally Neck supple, no JVD and no carotid bruits Resp normal respiratory effort, normal air movement and clear to auscultation bilaterally Cardio regular rate and regular rhythm GI normal to inspection, nondistended, normoactive bowel sounds, non-tender and no n-distended Extremity normal capillary refill General Extremity: Negative for edema Skin no rashes or lesions noted General Skin Exam: no breakdown Psych affect normal Appearance: appropriate Assessment & Plan Assessment/Plan (1) Debility: (2) Encephalopathy: (3) Sepsis: (4) Pneumonia: (5) Hypotension: (6) Urinary retention: (7) Debility: (8) Hemorrhagic shock: (9) Upper gastrointestinal bleed: (10) Atrial fibrillation with rapid ventricular response: (11) Aspergillosis, with pneumonia: (12) Osteoporosis: (13) Hyperlipidemia: (14) Diabetes mellitus: (15) Recurrent urinary tract infection: (16) Chronic gastritis: PLAN: Plan 72 year old female with below past medical history hospitalized for encephalopathy, sepsis secondary to aspergillus pneumonia, hemorrhagic shock secondary to upper gastrointestinal bleed, complicated by atrial fibrillation with rapid ventricular response, urinary retention, admitted to TCU with debility, here for rehabilitation, strengthening, prior to discharge home with . * Debility - PT/OT. * Pain - Tylenol 1000mg q6h prn pain (1-10). * Bowel - Senna/coace 1 tablet bid, Dulcolax 10mg daily prn. * Adult immunization - Administer pneumonia vaccine, covid19 vaccine, flu vaccine as appropriate. * DVT prophylaxis - Not necessary, already on Eliquis. * Osteoporosis - Alendronate 70mg qweek. * Atrial fibrillation - Metoprolol 12.5mg bid, Digoxin 125mcg daily, Eliquis 5mg bid. * Hyperlipidemia - Atorvastatin 20mg qhs. * Nutrition - Glucerna Shake 120ml po tidcm, Og 1 packet bidcm. * Shortness of breath - Duoneb 3ml 4x/day. * Hypomagnesemia - Magnesium chloride 128mg bid. * Diabetes Mellitus II - Metformin 500mg daily. * Recurrent urinary tract infection - Methenamine 1gm qhs. * Orthostatic hypotension - Midodrine 15mg tidcm. * Tinea Corporis - Nystatin powder topical tid. * Nausea - Zofran odt 4mg tid prn. * Chronic gastritis - Pantoprazole 40mg bid, Sucralfate 1gm qachs. * Depression - Sertraline 25mg daily, stable chronic intermediate use, GDR not recommended. * Dry nose - Sodium chloride 1 spray nasal bid. * Aspergillosis - Voriconazole 200mg bid thru 09/02/2022.
[2022-06-18] MEDS: Nystatin Powder 15gm Bottle 1 APPLIC TOPICAL (21:11)
[2022-06-18] MEDS: Atorvastatin Calcium 20 MG Tablet PO (21:13)
[2022-06-18] MEDS: Methenamine Hippurate 1 GM Tablet PO (21:14)
[2022-06-19] VITALS (10 sets, daily range): BP systolic 86–99; BP diastolic 45–60; PULSE 77–112; RESP 16–20; O2SAT 93–99
[2022-06-19 05:29] LABS: Absolute Lymphocyte Count 1.26 X10^3/uL (0.83-4.51); Basophil# 0.03 X10^3/uL; Basophil% 0.4 % (0-1); Eosinophil# 0.34 X10^3/uL; Hematocrit 26.2 % (37-47); Hemoglobin 8.2 g/dL (12.0-15.0); Lymphocyte # 1.26 X10^3/ul (0.83-4.51); Lymphocyte % 14.9 % (19-41); Mean Corp Hgb Conc 31.3 g/dL (32-36); Mean Corpuscular Hgb 28.1 pg (27.0-32.0); Mean Corpuscular Volume 89.7 fL (81-99); Mean Platelet Vol. 9.2 fl (6.2-12.0); Monocyte# 0.68 X10^3/uL; NRBC Flagged by Analyzer 0 % (0-5); Neutrophil # 5.95 X10^3/uL (2.7-7.7); Neutrophil % 70.1 % (47-70); Platelet Count 427 K/mm3 (150-450); RBC Distribution Width CV 18.3 % (11.6-14.6); RBC Distribution Width SD 60.2 fl (35.1-43.9); Red Blood Count 2.92 M/mm3 (4.2-5.4); White Blood Count 8.5 K/mm3 (4.4-11.0)
[2022-06-19 05:52] LABS: Anion Gap 5 (5-15); BUN 10 mg/dL (7-18); BUN/Creat Ratio 45.5 RATIO (10-20); Chloride 103 mmol/L (98-107); Creatinine, Serum 0.22 mg/dL (0.55-1.02); EST Glomerular Filtration Rate 334 mL/min (>60); Est Glom Filt Rate - Afr Amer 404 mL/min (>60); Estimated Creatinine Clearance 52.81 ml/min; Glucose 95 mg/dL (74-106); Potassium 3.7 mmol/L (3.5-5.1); Sodium Level 135 mmol/L (136-145)
[2022-06-19] MEDS: Magnesium Chloride 64 MG Delay Rel.Tablet 128 MG PO ×2 (06:08→18:00)
[2022-06-19] MEDS: Pantoprazole Sodium 40 MG Tablet PO ×2 (06:08→18:00)
[2022-06-19] MEDS: Sertraline 50 MG Tablet 25 MG PO (06:08)
[2022-06-19] MEDS: APIXABAN 5 MG TABLET PO (06:08)
[2022-06-19] MEDS: Voriconazole 200 MG Tablet PO ×2 (06:08→18:00)
[2022-06-19] MEDS: Metoprolol Tartrate 25 MG Tablet 12.5 MG PO (06:12)
[2022-06-19] MEDS: Digoxin 125 MCG Tablet PO (06:12)
[2022-06-19] MEDS: Sodium Chloride 0.65% 1 SPRAY SPRAY.BTL NASAL ×2 (06:13→18:00)
[2022-06-19] MEDS: Nystatin Powder 15gm Bottle 1 APPLIC TOPICAL ×3 (06:13→20:57)
[2022-06-19] MEDS: Senna/Docusate Sodium 1 Tablet PO (06:14)
[2022-06-19 06:30] LABS: Bedside Glucose 104 mg/dL (74-106)
[2022-06-19] MEDS: Ipratropium/Albuterol Sulfate 3 ML AMPUL.NEB INHALATION ×3 (07:35→19:12)
[2022-06-19] MEDS: Midodrine HCl 5 MG Tablet 15 MG PO ×3 (08:12→18:00)
[2022-06-19] MEDS: Sucralfate 1 GM Tablet PO ×4 (08:13→20:58)
[2022-06-19] MEDS: metFORMIN HCl 500 MG Tablet PO (08:13)
[2022-06-19] MEDS: Glucerna Shake 120 ML LIQUID PO ×3 (09:26→16:42)
[2022-06-19] MEDS: Tuberculin,Purif.prot.deriv. 50 TU/ML Vial 0.1 ML ID (09:26)
[2022-06-19] MEDS: Acetaminophen 500 MG Tablet 1000 MG PO (09:28)
[2022-06-19] MEDS: Ondansetron ODT 4 MG Tablet PO (11:28)
--- NOTE | 2022-06-19 14:00 | NURSING ---
Pt c/o of feeling very tired. BP 77/[address] Wagner updated N.O. 1L Bolus NS to be given and recheck blood pressure.
[2022-06-19] MEDS: 0.9% Normal Saline 1,000 ML 1000 ML IV (14:13)
--- NOTE | 2022-06-19 16:21 | CASEMGMT ---
Social Work Met with patient to complete initial assessment. Both daughters present at bedside. Introduced self and role. Pt granted SW permission to complete assessment with dtrs present. Verified contacts. Discussed code status and MOLST form. Pt confirms full code. MOLST placed in Dr. bocanegra. Pt requesting to complete advanced directives. SW to complete with pt prior to DC. Educated to Medicare benefit. Encouraged to contact secondary insurance to ensure copay coverage. Pts goal is to return home with , however, he is unable to assist and is dear. Thus having both daughters as contacts. Both daughters work time study technologist. Pt needs to be fully independent to return home. If that is unable to happen while in TCU, pt/dtrs agreeable to transition to another SNF first, private pay. SW to continue to follow for DC planning. MAYNOR HanleyW
--- NOTE | 2022-06-19 17:10 | NURSING ---
Per Dr. Bernard Jones on hold d/t decreased Hgb will restart on ThursdayJun 24.
[2022-06-19] MEDS: Atorvastatin Calcium 20 MG Tablet PO (20:57)
[2022-06-19] MEDS: Methenamine Hippurate 1 GM Tablet PO (20:57)
[2022-06-20] VITALS (12 sets, daily range): BP systolic 92–97; BP diastolic 44–64; PULSE 70–111; RESP 17–20; TEMP 2.6–36.7; O2SAT 90–95
[2022-06-20] MEDS: Pantoprazole Sodium 40 MG Tablet PO ×2 (05:42→17:47)
[2022-06-20 06:40] LABS: Bedside Glucose 111 mg/dL (74-106)
[2022-06-20] MEDS: Ipratropium/Albuterol Sulfate 3 ML AMPUL.NEB INHALATION ×4 (07:19→19:09)
[2022-06-20] MEDS: Sucralfate 1 GM Tablet PO ×4 (07:22→21:48)
[2022-06-20] MEDS: Nystatin Powder 15gm Bottle 1 APPLIC TOPICAL ×3 (07:23→21:48)
[2022-06-20] MEDS: Magnesium Chloride 64 MG Delay Rel.Tablet 128 MG PO ×2 (08:06→17:47)
[2022-06-20] MEDS: Metoprolol Tartrate 25 MG Tablet 6.25 MG PO ×2 (08:07→17:46)
[2022-06-20] MEDS: metFORMIN HCl 500 MG Tablet PO (08:07)
[2022-06-20] MEDS: Midodrine HCl 5 MG Tablet 15 MG PO ×3 (08:07→17:46)
[2022-06-20] MEDS: Sertraline 50 MG Tablet 25 MG PO (08:07)
[2022-06-20] MEDS: Voriconazole 200 MG Tablet PO ×2 (10:12→17:47)
[2022-06-20] MEDS: Acetaminophen 500 MG Tablet 1000 MG PO ×2 (12:38→23:45)
--- NOTE | 2022-06-20 14:14 | PHA.CONS_ITS ---
TCU RX Drug Regimen Review Subjective: 72 YOM admitted to TCU after prolonged hospitalization at [facility] for GI bleed, aspergillus pneumonia. Admitted to TCU for strengthening/rehabilitation prior to discharge home with . Objective: Allergies No Known Allergies Allergy (Verified 06/06/22 14:17) Current Medications Generic Name Dose Route Start Last Admin Trade Name Freq PRN Reason Stop Dose Admin Acetaminophen 1,000 mg 06/18/22 21:05 06/20/22 12:38 Acetaminophen 500 Mg Tablet PO 1,000 mg Q6H PRN PRN Administration Pain Score 1-10 Albuterol/Ipratropium 3 ml 06/18/22 17:00 06/20/22 11:36 Ipratropium/Albuterol Sulfate 3 Ml Ampul.Neb INHALATION 3 ml 4X/DAY.RT KOBE Administration Alendronate Sodium 70 mg 06/23/22 06:00 Alendronate Sodium 70 Mg Tablet PO MO KOBE Apixaban 5 mg 06/20/22 08:00 Apixaban 5 Mg Tablet PO BIDCM [facility] Atorvastatin Calcium 20 mg 06/18/22 22:00 06/19/22 20:57 Atorvastatin Calcium 20 Mg Tablet PO 20 mg QHS [facility] Administration Bisacodyl 10 mg 06/18/22 21:04 Bisacodyl 5 Mg Tablet PO DAILY PRN Constipation L-Arginine/L-Glutamine/Calcium HMB 1 packet 06/18/22 17:00 06/20/22 08:02 Og (Unflavored) [facility] Magnesium Chloride 128 mg 06/20/22 08:00 06/20/22 08:06 Magnesium Chloride 64 Mg Delay Rel.Tablet PO 128 mg BIDCM [facility] Administration Metformin HCl 500 mg 06/19/22 08:00 06/20/22 08:07 Metformin Hcl 500 Mg Tablet [facility] Administration Methenamine Hippurate 1 gm 06/18/22 22:00 06/19/22 20:57 Methenamine Hippurate 1 Gm Tablet PO 1 gm QHS [facility] Administration Metoprolol Tartrate 6.25 mg 06/20/22 08:00 06/20/22 08:07 Metoprolol Tartrate 25 Mg Tablet PO 6.25 mg BIDCM [facility] Administration Midodrine 15 mg 06/18/22 17:45 06/20/22 12:34 Midodrine Hcl 5 Mg Tablet PO 15 mg TIDCM KOBE Administration Nutritional Formula (Lactose Free) 120 ml 06/18/22 17:45 06/20/22 12:34 Glucerna Shake 120 Ml Liquid PO Not Given TIDCM KOBE Nystatin 1 applic 06/18/22 22:00 06/20/22 07:23 Nystatin Powder 15gm Bottle TOPICAL 1 applic TID KOBE Administration Protocol Ondansetron HCl 4 mg 06/18/22 14:38 06/19/22 11:28 Ondansetron Odt 4 Mg Tablet PO 4 mg TID PRN PRN Administration Nausea Pantoprazole Sodium 40 mg 06/18/22 18:00 06/20/22 05:42 Pantoprazole Sodium 40 Mg Tablet PO 40 mg BID KOBE Administration Senna/Docusate Sodium 1 tablet 06/20/22 08:00 06/20/22 08:04 Senna/Docusate Sodium 1 Tablet PO Not Given BIDCM KOBE Sertraline HCl 25 mg 06/20/22 08:00 06/20/22 08:07 Sertraline 50 Mg Tablet PO 25 mg 0800 KOBE Administration Sodium Chloride 1 spray 06/18/22 18:00 06/20/22 07:26 Sodium Chloride 0.65% 1 [place].Btl NASAL Not Given BID KOBE Sodium Chloride 10 - 40 ml 06/18/22 14:52 0.9% Saline Lock 10 Ml Syringe IV UD PRN SALINE FLUSH Sucralfate 1 gm 06/18/22 16:00 06/20/22 10:12 Sucralfate 1 Gm Tablet PO 1 gm 1HR_ACHS KOBE Administration Tuberculin PPD 0.1 ml 06/26/22 10:00 Tuberculin,Purif.Prot.Deriv. 50 Tu/Ml Vial ID 06/26/22 10:01 X1 ONE Voriconazole 200 mg 06/20/22 10:00 06/20/22 10:12 Voriconazole 200 Mg Tablet PO 08/31/22 10:01 200 mg 1000,1800 KOBE Administration Problem List (Last Reviewed 06/18/22 @ 20:[address] Art Wagner MD) Chronic gastritis (Chronic) Recurrent urinary tract infection (Acute) Diabetes mellitus (Acute) Hyperlipidemia (Acute) Osteoporosis (Acute) Aspergillosis, with pneumonia (Acute) Atrial fibrillation with rapid ventricular response (Acute) Upper gastrointestinal bleed (Acute) Hypotension (Acute) Pneumonia (Acute) Sepsis (Acute) Encephalopathy (Acute) Debility (Acute) Urinary retention (Acute) Debility (Acute) Hemorrhagic shock (Acute) Vital Signs Pulse Resp BP Pulse Ox O2 Del Method O2 Flow Rate 80 18 92/46 L 91 Room Air 3.5 06/20/22 11:36 06/20/22 11:36 06/20/22 10:14 06/20/22 11:36 06/20/22 11:36 06/20/22 07:19 Oxygen Flow Rate (L/min) 3.5 Oxygen Delivery Method Room Air Weight: 66.5 kg Body Mass Index (BMI) 22.3 Sodium 135 mmol/L (136-145) L 06/19/22 05:15 Potassium 3.7 mmol/L (3.5-5.1) 06/19/22 05:15 Chloride 103 mmol/L (98-107) 06/19/22 05:15 Carbon Dioxide 27.0 mmol/L (21.0-32.0) 06/19/22 05:15 Anion Gap 5 (5-15) 06/19/22 05:15 BUN 10 mg/dL (7-18) 06/19/22 05:15 Creatinine 0.22 mg/dL (0.55-1.02) L 06/19/22 05:15 Est GFR (MDRD) Af Amer 404 mL/min (>60) 06/19/22 05:15 Est GFR (MDRD) Non-Af 334 mL/min (>60) 06/19/22 05:15 BUN/Creatinine Ratio 45.5 RATIO (10-20) H 06/19/22 05:15 Glucose 95 mg/dL (74-106) 06/19/22 05:15 Assessment/Plan: 1. Pain: Tylenol 1000mg PO Q6h PRN Pain 1-10. Please continue to monitor for S/S increased/decreased pain, PRN medication usage. Note: LFT WNL from 06/18/22. -The patient has utilized 2 doses of Tylenol over the past 48hrs. Pre- medication pain 7/10, post-medication pain assessment pain is 6/10. Please continue to monitor. 2. Gastritis/ GI Bleed (Hx): Pantoprazole 40mg PO BID, Carafate 1g PO ACHS. Please continue to monitor for S/S recurrent GI bleed, H/H (Hgb 8.2/ HCt 26.2 on 06/19/22), GI Upset. Please administer Carafte 1 hr prior to meals and avoid other medication administration within 2 hrs of Carafate administration. 3. Aspergillis Pneumonia/ SOB: Voriconazole 200mg PO BID thru 08/31/22, Duoneb inhalation 4x/day. Cultures from hospitalization positive for Aspergillus, no sensitivity data available. Please continue to monitor LFTs (normal lab values from 06/18/22), visual impairment, renal function (CrCl 53 mL/min on 06/19), HR (range 72-112). 4. Atrial Fibrillation/ Orthostatic hypotension/ HLD: Eliquis 5mg PO BID (NOTE: on hold until 06/24 d/t H/H), Atorvastatin 20mg PO QHS, Lopressor 6.25mg PO BID, Midodrine 15mg PO TIDCM. Please continue to monitor BP (range 90-99/45-60), Pulse (Range 72-112), Lipid panel annually or sooner if clinically indicated (last 05/19/22, WNL), S/S bleeding/bruising, H/H (last 06/19/22), orthostatics as clinically indicated. Patient's BP have been running very low. Hold parameters are in place for Lopressor (hold SBP<90), but BPs still remain low. Can consider decreasing frequency of Lopressor to once daily if appropriate. Please encourage patient to get up slowly to avoid sensation of dizziness/passing out. 5. Type II Diabetes: Metformin 500mg PO Daily. Please continue to monitor blood glucose (last 95 on 06/19/22), A1c every 3 months (last 5.9% on 05/19/22), renal function (CrCl 53 mL/min on 06/19/22), S/S hypoglycemia. At this time, patient has adequate glycemic control, continue current dose of medication. 6. Osteoporosis: Fosamax 70mg PO Once weekly. Please continue to monitor calcium and other electrolyte levels as clinically indicated. Please administer first t valery in the morning by itself on an empty stomach, and encourage patient to remain upright for at least 30min after taking medication. 7. UTI Prevention (recurrent Hx):Methenamine 1g PO QHS. Please continue to monitor for S/S recurrent infection, renal function, dysuria, LFTs. 8. Nausea: Zofran 4mg PO TID PRN. The patient has utilized 1 dose of medication in the past 48hrs. Please continue to monitor for medication effectiveness, I/O, electrolytes if patient is actively vomiting to avoid dehydration. 9. Hypomagnesemia: Magnesium chloride 128mg PO BIDCM. Please continue to monitor labs as clinically indicated. 10. Bowel:Senna/Docusate 1 tab PO BID, Dulcolax 10mg PO Daily PRN. Please continue to monitor for increased/decreased constipation and/or diarrhea. To date, patient has no had a bowel movement per EMR review. If patient does not have a bowel movement in 48-72hrs, please consider administering PRN medication. 11. Skin Integrity: Nystatin powder topically TID. Please continue to monitor for S/S skin breakdown/infection. 12. Dry Nose: Saline nasal spray BID. Please continue to monitor for medication effectiveness, bloody nose. Assessment/Plan for indications treated with psychotropic medications: 1. Depression: Zoloft 25mg PO Daily. Please consider GDR if clinically indicated by 12/2022. This medication is on the Beer's Criteria list and can increase the risk of falls/fractures in patients >65. Given the patient's history of osteoporosis, orthostatic hypotension, and chronically low BP patient appears to be at increased risk. Please continue to monitor patient closely and adjust medication is risk outweighs benefit of use, thank you. Medical chart and medication regimen reviewed. The following medication irregularities or issues were identified: 1. Lopressor 6.25mg PO BID. Patient's BP have been running very low. Hold parameters are already in place for (hold SBP<90), but BPs still remain low. Can consider decreasing frequency of Lopressor to once daily if appropriate, thank you 2. Depression: Zoloft 25mg PO Daily. Please consider GDR if clinically indicated by 12/2022. This medication is on the Beer's Criteria list and can increase the risk of falls/fractures in patients >65. Given the patient's history of osteoporosis, orthostatic hypotension, and chronically low BP patient appears to be at increased risk. Please continue to monitor patient closely and adjust medication if risk outweighs benefit of use, thank you. Date of Note:: 06/20/22
[2022-06-20] MEDS: Sodium Chloride 0.65% 1 SPRAY SPRAY.BTL NASAL (16:44)
[2022-06-20] MEDS: 0.9% Saline Lock 10 ML Syringe IV (17:44)
[2022-06-20] MEDS: Atorvastatin Calcium 20 MG Tablet PO (21:49)
[2022-06-20] MEDS: Methenamine Hippurate 1 GM Tablet PO (21:50)
[2022-06-21] VITALS (9 sets, daily range): BP systolic 92–112; BP diastolic 47–58; PULSE 68–83; RESP 16–18; TEMP 36.6; O2SAT 91–93
[2022-06-21] MEDS: Nystatin Powder 15gm Bottle 1 APPLIC TOPICAL ×3 (05:17→21:17)
[2022-06-21] MEDS: Sodium Chloride 0.65% 1 SPRAY SPRAY.BTL NASAL (05:17)
[2022-06-21] MEDS: Sucralfate 1 GM Tablet PO ×4 (05:18→21:16)
[2022-06-21] MEDS: Pantoprazole Sodium 40 MG Tablet PO ×2 (05:18→16:53)
[2022-06-21 06:40] LABS: Bedside Glucose 92 mg/dL (74-106)
[2022-06-21] MEDS: Ipratropium/Albuterol Sulfate 3 ML AMPUL.NEB INHALATION ×4 (07:37→19:01)
[2022-06-21 08:10] LABS: Hematocrit 28.4 % (37-47); Hemoglobin 8.8 g/dL (12.0-15.0)
[2022-06-21] MEDS: Sertraline 50 MG Tablet 25 MG PO (08:13)
[2022-06-21] MEDS: Metoprolol Tartrate 25 MG Tablet 6.25 MG PO ×2 (08:13→16:54)
[2022-06-21] MEDS: Magnesium Chloride 64 MG Delay Rel.Tablet 128 MG PO ×2 (08:13→16:54)
[2022-06-21] MEDS: metFORMIN HCl 500 MG Tablet PO (08:14)
[2022-06-21] MEDS: Midodrine HCl 5 MG Tablet 15 MG PO ×3 (08:14→16:53)
[2022-06-21] MEDS: Acetaminophen 500 MG Tablet 1000 MG PO ×2 (10:53→23:31)
[2022-06-21] MEDS: Voriconazole 200 MG Tablet PO ×2 (10:53→16:53)
[2022-06-21] MEDS: Atorvastatin Calcium 20 MG Tablet PO (21:16)
[2022-06-21] MEDS: Methenamine Hippurate 1 GM Tablet PO (21:16)
[2022-06-22] VITALS (8 sets, daily range): BP systolic 91–116; BP diastolic 50–61; PULSE 66–103; RESP 18; TEMP 37.2; O2SAT 95–97
[2022-06-22] MEDS: Acetaminophen 500 MG Tablet 1000 MG PO ×2 (05:42→21:41)
[2022-06-22] MEDS: Pantoprazole Sodium 40 MG Tablet PO ×2 (05:42→17:33)
[2022-06-22] MEDS: Nystatin Powder 15gm Bottle 1 APPLIC TOPICAL ×3 (05:42→21:43)
[2022-06-22] MEDS: Ipratropium/Albuterol Sulfate 3 ML AMPUL.NEB INHALATION ×4 (07:03→19:08)
[2022-06-22] MEDS: Magnesium Chloride 64 MG Delay Rel.Tablet 128 MG PO ×2 (07:49→17:32)
[2022-06-22] MEDS: Senna/Docusate Sodium 1 Tablet PO (07:49)
[2022-06-22] MEDS: Sucralfate 1 GM Tablet PO ×4 (07:49→21:42)
[2022-06-22] MEDS: metFORMIN HCl 500 MG Tablet PO (07:49)
[2022-06-22] MEDS: Metoprolol Tartrate 25 MG Tablet 6.25 MG PO ×2 (07:49→17:33)
[2022-06-22] MEDS: Voriconazole 200 MG Tablet PO ×2 (07:50→17:32)
[2022-06-22] MEDS: Sertraline 50 MG Tablet 25 MG PO (07:50)
[2022-06-22] MEDS: Midodrine HCl 5 MG Tablet 15 MG PO ×3 (07:50→17:33)
[2022-06-22 11:25] LABS: Bedside Glucose 97 mg/dL (74-106)
[2022-06-22] MEDS: Atorvastatin Calcium 20 MG Tablet PO (21:42)
[2022-06-22] MEDS: Methenamine Hippurate 1 GM Tablet PO (21:43)
[2022-06-23] VITALS (8 sets, daily range): BP systolic 96–102; BP diastolic 46–55; PULSE 70–93; RESP 16–24; TEMP 36.4; O2SAT 92–98
[2022-06-23] MEDS: Acetaminophen 500 MG Tablet 1000 MG PO ×3 (04:12→20:25)
[2022-06-23] MEDS: Alendronate Sodium 70 MG Tablet PO (04:39)
[2022-06-23] MEDS: Pantoprazole Sodium 40 MG Tablet PO ×2 (05:18→16:28)
[2022-06-23] MEDS: Nystatin Powder 15gm Bottle 1 APPLIC TOPICAL ×3 (05:18→20:22)
[2022-06-23 06:26] LABS: Bedside Glucose 107 mg/dL (74-106)
[2022-06-23] MEDS: Ipratropium/Albuterol Sulfate 3 ML AMPUL.NEB INHALATION ×3 (07:29→19:12)
[2022-06-23] MEDS: Metoprolol Tartrate 25 MG Tablet 6.25 MG PO ×2 (08:41→16:30)
[2022-06-23] MEDS: metFORMIN HCl 500 MG Tablet PO (08:42)
[2022-06-23] MEDS: Sucralfate 1 GM Tablet PO ×4 (08:42→20:21)
[2022-06-23] MEDS: Magnesium Chloride 64 MG Delay Rel.Tablet 128 MG PO ×2 (08:42→16:28)
[2022-06-23] MEDS: Midodrine HCl 5 MG Tablet 15 MG PO ×3 (08:42→16:28)
[2022-06-23] MEDS: Voriconazole 200 MG Tablet PO ×2 (08:42→16:29)
[2022-06-23] MEDS: Sertraline 50 MG Tablet 25 MG PO (08:43)
[2022-06-23] MEDS: Senna/Docusate Sodium 1 Tablet PO (16:28)
[2022-06-23] MEDS: Methenamine Hippurate 1 GM Tablet PO (20:21)
[2022-06-23] MEDS: Atorvastatin Calcium 20 MG Tablet PO (20:21)
[2022-06-23] MEDS: traMADol 50 MG Tablet PO (23:45)
[2022-06-24] MEDS: Acetaminophen 500 MG Tablet 1000 MG PO ×2 (04:40→21:58)
[2022-06-24] MEDS: Pantoprazole Sodium 40 MG Tablet PO ×2 (05:28→17:33)
[2022-06-24] MEDS: Nystatin Powder 15gm Bottle 1 APPLIC TOPICAL ×3 (05:28→21:53)
[2022-06-24] MEDS: Sucralfate 1 GM Tablet PO ×4 (05:28→21:52)
[2022-06-24 06:25] LABS: Bedside Glucose 107 mg/dL (74-106)
[2022-06-24] MEDS: Ipratropium/Albuterol Sulfate 3 ML AMPUL.NEB INHALATION ×2 (07:40→19:42)
[2022-06-24 08:03] VITALS: BP 124/58; PULSE 83
[2022-06-24] MEDS: Midodrine HCl 5 MG Tablet 15 MG PO ×3 (08:03→17:33)
[2022-06-24] MEDS: APIXABAN 5 MG TABLET PO ×2 (08:03→17:33)
[2022-06-24] MEDS: metFORMIN HCl 500 MG Tablet PO (08:03)
[2022-06-24] MEDS: Metoprolol Tartrate 25 MG Tablet 6.25 MG PO (08:03)
[2022-06-24] MEDS: Sertraline 50 MG Tablet 25 MG PO (08:05)
[2022-06-24] MEDS: Senna/Docusate Sodium 1 Tablet PO ×2 (08:06→17:33)
[2022-06-24 08:38] VITALS: PULSE 98; RESP 22; O2SAT 96
[2022-06-24] MEDS: Voriconazole 200 MG Tablet PO ×2 (10:04→17:33)
--- NOTE | 2022-06-24 12:04 | WOUNDNOTE ---
wound photo: bilateral buttocks
[2022-06-24 13:57] VITALS: BP 85/42; PULSE 74
[2022-06-24 16:00] VITALS: TEMP 36.7
[2022-06-24 17:32] VITALS: BP 105/46; PULSE 67
[2022-06-24 19:42] VITALS: PULSE 78; RESP 16; O2SAT 98
[2022-06-24] MEDS: Methenamine Hippurate 1 GM Tablet PO (21:52)
[2022-06-24] MEDS: Atorvastatin Calcium 20 MG Tablet PO (21:54)
[2022-06-25] VITALS (9 sets, daily range): BP systolic 86–128; BP diastolic 52–60; PULSE 64–126; RESP 14–20; TEMP 36.6; O2SAT 93–98
[2022-06-25] MEDS: traMADol 50 MG Tablet PO (00:55)
[2022-06-25] MEDS: Acetaminophen 500 MG Tablet 1000 MG PO ×2 (04:32→22:26)
[2022-06-25] MEDS: Pantoprazole Sodium 40 MG Tablet PO ×2 (04:33→18:21)
[2022-06-25] MEDS: Sucralfate 1 GM Tablet PO ×4 (04:33→22:29)
[2022-06-25] MEDS: Nystatin Powder 15gm Bottle 1 APPLIC TOPICAL ×3 (04:37→22:30)
[2022-06-25 06:35] LABS: Bedside Glucose 93 mg/dL (74-106)
[2022-06-25] MEDS: APIXABAN 5 MG TABLET PO (08:40)
[2022-06-25] MEDS: Midodrine HCl 5 MG Tablet 15 MG PO ×3 (08:40→18:21)
[2022-06-25] MEDS: metFORMIN HCl 500 MG Tablet PO (08:40)
[2022-06-25] MEDS: Sertraline 50 MG Tablet 25 MG PO (08:41)
[2022-06-25] MEDS: Senna/Docusate Sodium 1 Tablet PO ×2 (08:41→18:21)
--- NOTE | 2022-06-25 10:09 | NURSING ---
Professor Of Anthropology Note: Interview and Section F of MDS complete.
--- NOTE | 2022-06-25 10:19 | US_ITS ---
STUDY: ULTRASOUND OF THE FEMALE PELVIS - COMPLETE REASON FOR EXAM: Female, 72 years old. vag bleeding LMP: Patient is postmenopausal. TECHNIQUE: Transabdominal TECHNICAL QUALITY: Adequate. COMPARISON: None. FINDINGS: The uterus is anteverted and is in a midline position. The uterus measures 8.3 cm x 3 cm x 1.6 cm. Normal uterine cervix. The endometrium is slightly thickened and measures 3.3 mm in thickness, and is hyperechoic. There is no demonstrated endometrial mass. There is no demonstrated myometrial mass. I.U.D. - The patient does not have an I.U.D. The right ovary is non-visualized. The left ovary is non-visualized. There is no fluid in the cul-de-sac. The pre void volume of the bladder was 1274 ml. US/Pelvic (Non ) IMPRESSION: Slightly thickened endometrium. Electronically Signed: Paul Moctezuma MD at 15:48 EDT ,
--- NOTE | 2022-06-25 10:20 | NURSING ---
This nurse went in room to assist with transfer with sera lift. Noticed increased bleeding from wound on buttocks and bleeding from vaginal area. This nurse and a PULP BEATER assisted pt back to bed. BP 92/[address] Wagner updated N.O. to hold Eliquis for 1 week Pelvic US and CBC. Will continue to monitor pt.
[2022-06-25] MEDS: Voriconazole 200 MG Tablet PO ×2 (10:30→18:21)
[2022-06-25 11:06] LABS: Hematocrit 29.4 % (37-47); Hemoglobin 9.3 g/dL (12.0-15.0); Mean Corp Hgb Conc 31.6 g/dL (32-36); Mean Corpuscular Hgb 27.7 pg (27.0-32.0); Mean Corpuscular Volume 87.5 fL (81-99); Mean Platelet Vol. 8.5 fl (6.2-12.0); POSITIVE COUNT YES; POSITIVE MORPHOLOGY YES; RBC Distribution Width CV 18.6 % (11.6-14.6); RBC Distribution Width SD 59.2 fl (35.1-43.9); Red Blood Count 3.36 M/mm3 (4.2-5.4); White Blood Count 13.6 K/mm3 (4.4-11.0)
[2022-06-25 11:13] LABS: Differential Indicated MANUAL DIFF
[2022-06-25 11:16] LABS: Platelet Count 760 K/mm3 (150-450)
[2022-06-25] MEDS: Ipratropium/Albuterol Sulfate 3 ML AMPUL.NEB INHALATION ×2 (11:35→18:49)
[2022-06-25 11:36] LABS: Eosinophil 5 % (0-5); Lymphocyte 23 % (19-41); Monocyte 7 % (0-10); Myelocyte 1 % (0-0); Neutrophil-Band 2 % (0-5); Neutrophil-Segmented 62 % (47-70); Total Cells Counted 100 (MANUAL DIFF)
[2022-06-25 11:37] LABS: Platelet Estimate MKD INC (ADEQ); Red Cell Morphology NORM C+C NORMAL (NORM C&C)
[2022-06-25 11:38] LABS: Absolute Lymphocyte Count 3.13 X10^3/uL (0.83-4.51); Absolute Neutrophil Count 8.7 X10^3/uL (2.0-7.7)
--- NOTE | 2022-06-25 12:34 | CASEMGMT ---
Social Work BIMS () and PHQ-9 (09/14) completed for MDS assessment. PHQ-9 score indicates moderate depression. SW explored positive responses further. Pt reports to feeling down, r/t decline in functional status, independence; trouble sleeping, feeling tired r/t pain and lack of sleep, and poor appetite. Offered to make goal chart to visualize progress in therapy better. Pt declined. Educated to medications and counseling services as possible interventions to assist with mood changes. Pt states I'm already on a medication for depression. SW offered to leave communication to that current medication has not assisted pt thus far and pt agreeable to start another medication to assist with above listed issues. Pt agreed. Written communication left for Dr. Wagner. Emotional support provided to pt. SW offered ongoing supportive visits, as needed. SW completed living will and HCPOA. Original and copy provided to pt. Copy placed on chart. Etelvina Longoria, [employer] DESIGN DRAFTSPERSON
--- NOTE | 2022-06-25 14:42 | CASEMGMT ---
Social Work Met with pt's dtr, Tamela, and for care plan meeting. Pt was getting ultrasound at time of POC and dtr opted to continue with meeting without pt as dtr is here during work hours. IDT will update pt during visits/sessions of progress/goals. IDT discussed PT/OT/SN. Pt has wound on buttocks. N.O. for purewick as B&B is noted to worsen the wound. Nursing/Dr to evaluate need for diehl placement. Nursing notified for pt to be on toileting program as dtr reports pt is incontinent most of the time, which is new for pt. Nursing aware. Educated to Medicare benefit. Encouraged to contact secondary insurance. Explained Medicare guidelines for continued stay and LCD - making consistent, significant progress vs plateau, decline. Educated DC may be issued even if pt has not returned to baseline/safe to return home. Educated SW to assist with DC plans. Dtr/ expressed understanding. SW to continue to follow. Etelvina Longoria, SWIMMING POOL SERVICER VALVE INSPECTOR
--- NOTE | 2022-06-25 14:59 | NURSING ---
US sound called to give report on pt after US completed. Pt noted to have 1500ml of urine in bladder. Pt returned to floor and Dr. Wagner updated. N.O. for insertion of diehl. Diehl inserted using sterile technique 1550 ml of Dark red urine drained. Will continue to monitor call light within reach.
[2022-06-25] MEDS: Metoprolol Tartrate 25 MG Tablet 6.25 MG PO (18:20)
[2022-06-25 18:35] LABS: Mucous, Urine 0 SEEN /hpf (<or=2+)
[2022-06-25 18:38] LABS: Color, Urine Red (Yellow); Glucose, Dipstick Normal (Normal); Ketone-Dipstick 5 mg/dl (Negative); Leukocyte Esterase-Dipstick 500 /ul (Negative); Nitrite-Dipstick Positive (Negative); Occult Blood-Urine 250 /ul (Negative); Protein-Dipstick 100 mg/dl (Negative); Urine Bilirubin Dipstick Negative (Negative); Urine Clarity Turbid (Clear); Urine Urobilinogen Normal (Normal); Urine pH 6.5 (5.0 - 8.0)
[2022-06-25 19:06] LABS: Red Blood Cells-Urine > 100 SEEN /hpf (0-5); White Blood Cells >100 SEEN /hpf (0-5)
[2022-06-25 19:08] LABS: Bacteria 4+ /hpf (None Seen); Squamous Epithelial Cells - UA 5-10 SEEN /hpf (5-10)
[2022-06-25] MEDS: Mirtazapine 15 MG Tablet 7.5 MG PO (22:27)
[2022-06-25] MEDS: Cefdinir 300 MG Capsule PO (22:27)
[2022-06-25] MEDS: Methenamine Hippurate 1 GM Tablet PO (22:29)
[2022-06-25] MEDS: Atorvastatin Calcium 20 MG Tablet PO (22:29)
[2022-06-26] VITALS (9 sets, daily range): BP systolic 89–100; BP diastolic 43–58; PULSE 71–88; RESP 14–18; TEMP 36.6; O2SAT 90–99
[2022-06-26] MEDS: traMADol 50 MG Tablet PO ×2 (03:03→23:27)
[2022-06-26 05:25] LABS: Hemoglobin 7.9 g/dL (12.0-15.0); Mean Corp Hgb Conc 31.6 g/dL (32-36); Mean Corpuscular Hgb 28.3 pg (27.0-32.0); Mean Corpuscular Volume 89.6 fL (81-99); Mean Platelet Vol. 8.6 fl (6.2-12.0); POSITIVE COUNT YES; POSITIVE MORPHOLOGY YES; Platelet Count 664 K/mm3 (150-450); RBC Distribution Width CV 18.6 % (11.6-14.6); RBC Distribution Width SD 60.7 fl (35.1-43.9); Red Blood Count 2.79 M/mm3 (4.2-5.4); White Blood Count 11.5 K/mm3 (4.4-11.0)
[2022-06-26 05:33] LABS: Differential Indicated MANUAL DIFF
[2022-06-26 05:34] LABS: Anisocytosis 2+; Platelet Estimate MKD INC (ADEQ)
[2022-06-26 05:40] LABS: Anion Gap 6 (5-15); BUN 15 mg/dL (7-18); BUN/Creat Ratio 59.3 RATIO (10-20); Calcium,Total 7.3 mg/dL (8.5-10.1); Chloride 105 mmol/L (98-107); Creatinine, Serum 0.25 mg/dL (0.55-1.02); EST Glomerular Filtration Rate 284 mL/min (>60); Est Glom Filt Rate - Afr Amer 344 mL/min (>60); Estimated Creatinine Clearance 52.81 ml/min; Glucose 104 mg/dL (74-106); Potassium 3.2 mmol/L (3.5-5.1); Sodium Level 137 mmol/L (136-145)
[2022-06-26 05:45] LABS: Absolute Lymphocyte Count 2.07 X10^3/uL (0.83-4.51); Absolute Neutrophil Count 7.3 X10^3/uL (2.0-7.7); Atypical Lymphocyte 1+ %; Eosinophil 5 % (0-5); Lymphocyte 18 % (19-41); Monocyte 9 % (0-10); Myelocyte 5 % (0-0); Neutrophil-Band 4 % (0-5); Neutrophil-Segmented 59 % (47-70); Total Cells Counted 100 (MANUAL DIFF)
[2022-06-26] MEDS: Nystatin Powder 15gm Bottle 1 APPLIC TOPICAL ×3 (05:45→21:30)
[2022-06-26] MEDS: Pantoprazole Sodium 40 MG Tablet PO ×2 (05:46→18:19)
[2022-06-26] MEDS: Cefdinir 300 MG Capsule PO ×2 (05:46→18:19)
[2022-06-26 06:55] LABS: Bedside Glucose 114 mg/dL (74-106)
[2022-06-26] MEDS: Ipratropium/Albuterol Sulfate 3 ML AMPUL.NEB INHALATION ×3 (07:32→15:33)
[2022-06-26] MEDS: Metoprolol Tartrate 25 MG Tablet 6.25 MG PO ×2 (08:53→18:19)
[2022-06-26] MEDS: Sucralfate 1 GM Tablet PO ×4 (08:53→21:28)
[2022-06-26] MEDS: Senna/Docusate Sodium 1 Tablet PO ×2 (08:53→18:19)
[2022-06-26] MEDS: metFORMIN HCl 500 MG Tablet PO (08:53)
[2022-06-26] MEDS: Midodrine HCl 5 MG Tablet 15 MG PO ×3 (08:53→18:18)
[2022-06-26] MEDS: Potassium Chloride Oral Tablet 20 MEQ 40 MEQ PO (08:56)
[2022-06-26] MEDS: Voriconazole 200 MG Tablet PO ×2 (08:57→18:19)
[2022-06-26] MEDS: Tuberculin,Purif.prot.deriv. 50 TU/ML Vial 0.1 ML ID (10:33)
--- NOTE | 2022-06-26 12:51 | CON.PCM_ITS ---
Assessment & Plan Assessment/Plan (1) Hematuria: PLAN: CT urogram urine cytology await results of urine culture and continue antibiotics presently will need repeat cystoscopy as outpatient plan for trial of void prior to discharge (2) Urinary retention: (3) Recurrent urinary tract infection: HPI Consult Data Date of Consult: 06/26/22 HPI Narrative Reason for Consultation: gross hematuria HPI Narrative: CARMEN MILLER, is a 72 F who is admitted for pneumonia and GI bleed. She had an episode of blood on the bed yesterday, not really sure if vaginal or urinary but was bright red. She had a pelvic ultrasound done with minimal thickened endometrium. She has a history of recurrent urinary tract infections for the last 20 years, no hematuria. She had a cystoscopy in the past, but not in the last year. She currently has a diehl catheter in place with halle urine and a pending urine culture. She is on cefdinir currently, and Eliquis at home. [facility] Medical History (Updated 06/26/22 @ 12:[address] Alberta Browne MD) COVID-19 Diabetes Frequent urinary tract infections GERD (gastroesophageal reflux disease) Hematuria High cholesterol Osteoarthritis Paroxysmal A-fib Home Medications alendronate 70 mg tablet 70 mg PO MO Osteoporosis 05/18/22 [History Last Taken 06/02/22] atorvastatin 20 mg tablet 20 mg PO QHS Cholestrol 05/18/22 [History Last Taken 06/05/22] metformin 500 mg tablet 500 mg PO DAILY BP 05/18/22 [History Last Taken 06/06/22] methenamine hippurate 1 gram tablet 1 g PO QHS Decrease UTI 05/18/22 [History Last Taken 06/05/22] ondansetron HCl 4 mg tablet 4 mg PO TID PRN PRN Nausea 05/18/22 [History Last Taken 06/01/22] omeprazole 20 mg capsule,delayed release 40 mg PO DAILY GERD 06/06/22 [History Last Taken 06/06/22] acetaminophen 500 mg tablet 1,000 mg PO Q8H PRN PRN Pain 1-10 Or Fever #0 tabs 06/18/22 [Rx Last Taken Unknown] apixaban 5 mg tablet (Eliquis) 5 mg PO BID Blood thinner 06/18/22 [History Last Taken Unknown] arginine 7 gram-glutam 7 gram-CaHMB 1.5 [id number] oral pwd pkt (Og (with collagen)) 1 packet PO BIDCM Supplement 06/18/22 [History Last Taken Unknown] digoxin 125 mcg (0.125 mg) tablet 125 mcg PO DAILY BP 06/18/22 [History Last Taken Unknown] ipratropium 0.5 mg-albuterol 3 mg (2.5 mg base)/3 mL nebulization soln 3 ml inhalation 4X/DAY Breathing 06/18/22 [History Last Taken Unknown] magnesium chloride 64 mg (magnesium chloride) tablet,delayed release (Mag 64) 128 mg PO BID Supplement 06/18/22 [History Last Taken Unknown] metoprolol tartrate 25 mg tablet 12.5 mg PO BID BP 06/18/22 [History Last Taken Unknown] midodrine 5 mg tablet 15 mg PO TIDCM BP 06/18/22 [History Last Taken Unknown] nystatin 100,000 unit/gram topical powder (Nyamyc) 1 applic topical TID Skin irritation 06/18/22 [History Last Taken Unknown] pantoprazole 40 mg tablet,delayed release 40 mg PO BID GERD 06/18/22 [History Last Taken Unknown] sertraline 50 mg tablet 25 mg PO DAILY Depression 06/18/22 [History Last Taken Unknown] sodium chloride 0.65 % nasal spray aerosol (Deep Sea Nasal) 1 spray NASAL BID Nasal spray 06/18/22 [History Last Taken Unknown] sucralfate 1 gram tablet 1 g PO 1HR_ACHS Stomach 06/18/22 [History Last Taken Unknown] tamsulosin 0.4 mg capsule 0.4 mg PO BID Urine retention 06/18/22 [History Last Taken Unknown] voriconazole 200 mg tablet 200 mg PO BID Antinfungal 06/18/22 [History Last Take n Unknown] Allergy/AdvReac Type Severity Reaction Status Date / Time No Known Allergies Allergy Verified 06/06/22 14:17 Social History (Updated 06/18/22 @ 20:[address] Art Wagner MD) household members: spouse Smoking Status: Current every day smoker tobacco type: cigarettes alcohol intake: never substance use type: does not use ROS Constitutional Constitutional: Reports systems reviewed and no addt'l complaints, except as documented Eyes Eyes: Reports systems reviewed and no addt'l complaints, except as documented ENT HEENT: Reports systems reviewed and no addt'l complaints, except as documented Cardiovascular Cardiovascular: Denies abdominal bloating or chest pain Respiratory/Chest Respiratory/Chest: Denies change in mental status Genitourinary Genitourinary: Reports hematuria and urinary urgency; Denies dysuria or flank pain Musculoskeletal Musculoskeletal: Reports systems reviewed and no addt'l complaints, except as documented Integumentary Integumentary: Reports systems reviewed and no addt'l complaints, except as documented Neurologic Neurologic: Reports systems reviewed and no addt'l complaints, except as documented Psychiatric Psychiatric: Reports systems reviewed and no addt'l complaints, except as documented Endocrine Endocrinology: Reports systems reviewed and no addt'l complaints, except as documented Hematologic/Lymphatic Hematologic/Lymphatic: Reports systems reviewed and no addt'l complaints, except as documented Allergic/Immunologic Allergic/Immunologic: Reports systems reviewed and no addt'l complaints, except as documented Physical Exam Const alert, oriented x3 and no apparent distress HEENT normocephalic and head/scalp atraumatic Eyes General Eye: normal appearance of both eyes Neck supple General: trachea midline Lymph Lymphatic: no lymphedema noted Chest inspection of chest normal Resp normal respiratory effort and no use of accessory muscles Effort and Inspection: able to speak in complete sentences Cardio regular rate Cardio Narrative: paroxysmal afib GI soft to palpation, non-tender and non-distended Bladder / Kidney Exam: catheter in place and other halle colored urine Back/Spine no CVA tenderness Extremity normal to inspection Skin no rashes or lesions noted Neuro oriented x3, CN's II-XII intact bilaterally and moves all extremities Psych mental status grossly normal and thought process normal Medical Records Data Medical Nutrition Assessment Dietitian: Malnutrition Criteria Met Start: 06/25/22 14:48 Freq: Status: Active Protocol: Document 06/25/22 14:48 AMANDA (Rec: 06/25/22 14:48 [facility] [id number]) Nutrition Malnutrition Evidence of Malnutrition Exists Yes Malnutrition (severe): Acute Illness/Injury Evidenced By Suboptimal Energy Intake ( Severe),Weight Loss (Severe) Intake Problem Increased Nutrient Needs (specify) Etiology protein related to skin status Signs/Symptoms as evidenced by shearing savana buttocks and need for increased protein w/ meals Status Active Problem Inadequate Oral Intake Status Inactive Problem Clinical Problem Acute Disease or Injury Related Malnutrition Etiology related to acute illness, food not tasting right and inability to consume adequate nutrition to meet est nutritional needs Signs/Symptoms as evidenced by ~ <50% po intake > 5 days and 3.9% wt loss since adm. Status Active Problem Recommendation Dietitian Recommendations/Changes Will liberalize diet to Regular with 1 salt packet at meals d/t signs and symptoms of malnutrition Will provide chocolate magic cup w/ lunch and dinner Rec appetite stimulant to help encourage increased po intake at meals. Lab / Micro Data Result Diagrams: 06/26/22 05:12 06/26/22 05:12 Labs: Laboratory Results - last 24 hr 06/25/22 18:25: Urine Color Red, Urine Clarity Turbid, Urine pH 6.5, Ur Specific [place] 1.010, Urine Protein 100 H, Urine Glucose (UA) Normal, Urine Ketones 5 H , Urine Occult Blood 250 H, Urine Nitrite Positive H, Urine Bilirubin Negative, Urine Urobilinogen Normal, Ur Leukocyte Esterase 500 H, Urine RBC > 100 SEEN, Urine WBC >100 SEEN, Ur Squamous Epith Cells 5-10 SEEN, Urine Bacteria 4+, Urine Mucus 0 SEEN 06/26/22 05:12: WBC 11.5 H, RBC 2.79 L, Hgb 7.9 L, Hct 25.0 L, MCV 89.6, MCH 28.3, MCHC 31.6 L, RDW Std Deviation 60.7 H, RDW Coeff of Palak 18.6 H, Plt Count 664 H, MPV 8.6, Neut % (Auto) Not Reportable, Absolute Neuts (auto) 7.3, Absolute Lymphs (auto) 2.07, Total Counted 100, Neutrophils % (Manual) 59, Band Neutrophils % 4, Lymphocytes % (Manual) 18 L, Monocytes % (Manual) 9, Eosinophils % (Manual) 5, Myelocytes % 5 H, Diff Path Review May foll, Atypical Lymphocytes 1+, Platelet Estimate MKD INC, Anisocytosis 2+ 06/26/22 05:12: Sodium 137, Potassium 3.2 L, Chloride 105, Carbon Dioxide 26.0, Anion Gap 6, BUN 15, Creatinine 0.25 L, Estim Creat Clear Calc 52.81, Est GFR (MDRD) Af Amer 344, Est GFR (MDRD) Non-Af 284, BUN/Creatinine Ratio 59.3 H, Glucose 104, Calcium 7.3 L 06/26/22 06:17: POC Glucose 114 H Micro: Microbiology 06/25/22 18:25 Urine Catheter - Diehl Urine Culture - Preliminary GNR lactose court reporter Radiology Impression Pelvis Ultrasound 06/25/22 10:19 IMPRESSION: Slightly thickened endometrium. Electronically Signed: Paul Moctezuma MD at 15:48 EDT ,
--- NOTE | 2022-06-26 13:00 | CYSPIN_PTH ---
PATIENT: CARMEN MILLER LOC: [facility] U#:[id number] AGE/SX: 72/F ROOM: [facility] RE06/18/[address]: Dr. Art Wagner MD : [id number] BED: 1 DIS: 08/06/2022 SPEC #: [id number] RECD: 06/27/22 07:48 STATUS: LAURA REQ #: [id number] DAVI: 06/26/22 13:[address]: Art Wagner Chi DEPT: CYTOLOGY RECD BY: Paris Golden ENTERED: 06/27/22 07:48 SP TYPE: CYSPIN FL OTHR DR: MD Dr. Misael Carter MD Tissues: Urine Procedures: Pap Stain (control) Special Stain Group II Cytospin Fluid HEADER OPERATION: Not noted PRE-OP DIAGNOSIS: Hemorrhagic shock, upper GI bleed, pneumonia TISSUE SUBMITTED: Urine for cytology DIAGNOSIS CYTOLOGY Urine for cytology (cytospin): Negative for malignant cells (Leslie Category II). Marked acute inflammation. See comment. SJ:rg 06/27/2022 COMMENT Red blood cells are also noted. The Leslie System for urine cytology diagnostic categorization was used in the evaluation of this case. CYTOLOGY STUDY Slides are reviewed. CYTOLOGY GROSS Received is 40 ml of yellow cloudy fluid labeled with the patient's name and and designated per the requisition as urine. Submitted for cytology preparation. / zak 06/27/2022 TC:2 CPT: 09801
--- NOTE | 2022-06-26 14:50 | NURSING ---
[address] scan of ABD/Pelvis per dr morris order and just returned.
--- NOTE | 2022-06-26 15:58 | NURSING ---
Addendum entered by Vannesa Hubbard 06/26/22 17:46: dr jimenez aware of CT scan results. No new orders at this time, rechecking H&H in AM, if lower will transfuse. daughter updated on all. would like to know whats causing low H/H. Addendum entered by Vannesa Hubbard 06/26/22 16:15: returned call, no new orders. will update Dr jimenez of CT results. Original Note: dr Browne office updated on ABD/pelvix CT results. awaiting return call
--- NOTE | 2022-06-26 19:28 | NURSING ---
urine sent to lab in specimen cup, spoke with lab they have it. looking into order since order says body fluid/CSF and comments states urine. lab to check this order.
[2022-06-26 19:31] LABS: Cytology, Body Fluid / CSF SEE PATHOLOGY REPORT
[2022-06-26] MEDS: Mirtazapine 15 MG Tablet 7.5 MG PO (21:27)
[2022-06-26] MEDS: Methenamine Hippurate 1 GM Tablet PO (21:28)
[2022-06-26] MEDS: Atorvastatin Calcium 20 MG Tablet PO (21:28)
[2022-06-27] VITALS (8 sets, daily range): BP systolic 90–112; BP diastolic 50–67; PULSE 77–113; RESP 16–20; TEMP 36.6; O2SAT 94–95
[2022-06-27 05:41] LABS: Hematocrit 27.1 % (37-47); Hemoglobin 8.7 g/dL (12.0-15.0)
[2022-06-27] MEDS: Pantoprazole Sodium 40 MG Tablet PO ×2 (05:44→17:35)
[2022-06-27] MEDS: Cefdinir 300 MG Capsule PO ×2 (05:44→17:36)
[2022-06-27] MEDS: Nystatin Powder 15gm Bottle 1 APPLIC TOPICAL ×3 (05:44→21:06)
[2022-06-27 06:41] LABS: Bedside Glucose 115 mg/dL (74-106)
[2022-06-27] MEDS: Ipratropium/Albuterol Sulfate 3 ML AMPUL.NEB INHALATION ×2 (07:00→19:26)
[2022-06-27] MEDS: metFORMIN HCl 500 MG Tablet PO (08:21)
[2022-06-27] MEDS: Potassium Chloride Oral Tablet 20 MEQ PO (08:22)
[2022-06-27] MEDS: Midodrine HCl 5 MG Tablet 15 MG PO ×3 (08:22→17:36)
[2022-06-27] MEDS: Sucralfate 1 GM Tablet PO ×4 (08:22→21:06)
[2022-06-27] MEDS: Metoprolol Tartrate 25 MG Tablet 6.25 MG PO ×2 (08:23→17:34)
[2022-06-27] MEDS: Senna/Docusate Sodium 1 Tablet PO ×2 (08:24→17:36)
[2022-06-27] MEDS: Voriconazole 200 MG Tablet PO ×2 (09:09→17:37)
[2022-06-27 09:12] LABS: Pathologist Review Reviewed
[2022-06-27 09:13] LABS: Pathologist Review Reviewed
--- NOTE | 2022-06-27 12:52 | WOUNDNOTE ---
In to reassess bilateral buttocks wounds. open areas are slightly improved. still open and weeping. recommend continuing with Triad cream. will continue to monitor.
[2022-06-27] MEDS: Atorvastatin Calcium 20 MG Tablet PO (21:06)
[2022-06-27] MEDS: Methenamine Hippurate 1 GM Tablet PO (21:06)
[2022-06-27] MEDS: Mirtazapine 15 MG Tablet 7.5 MG PO (21:06)
[2022-06-28] VITALS (7 sets, daily range): BP systolic 101–109; BP diastolic 43–60; PULSE 54–123; RESP 16–21; TEMP 35.8; O2SAT 90–97
[2022-06-28] MEDS: Acetaminophen 500 MG Tablet 1000 MG PO ×2 (03:50→21:17)
[2022-06-28] MEDS: Nystatin Powder 15gm Bottle 1 APPLIC TOPICAL ×3 (06:16→21:18)
[2022-06-28] MEDS: Cefdinir 300 MG Capsule PO ×2 (06:16→16:50)
[2022-06-28] MEDS: Pantoprazole Sodium 40 MG Tablet PO ×2 (06:16→16:50)
[2022-06-28 06:40] LABS: Bedside Glucose 104 mg/dL (74-106)
[2022-06-28] MEDS: metFORMIN HCl 500 MG Tablet PO (08:13)
[2022-06-28] MEDS: Metoprolol Tartrate 25 MG Tablet 6.25 MG PO (08:13)
[2022-06-28] MEDS: Potassium Chloride Oral Tablet 20 MEQ PO ×2 (08:13→16:51)
[2022-06-28] MEDS: Midodrine HCl 5 MG Tablet 15 MG PO ×3 (08:16→16:49)
[2022-06-28] MEDS: Sucralfate 1 GM Tablet PO ×4 (08:17→21:17)
[2022-06-28 09:07] LABS: Anion Gap 6 (5-15); BUN 6 mg/dL (7-18); BUN/Creat Ratio 20.1 RATIO (10-20); Calcium,Total 7.5 mg/dL (8.5-10.1); Chloride 104 mmol/L (98-107); EST Glomerular Filtration Rate 235 mL/min (>60); Est Glom Filt Rate - Afr Amer 285 mL/min (>60); Estimated Creatinine Clearance 52.81 ml/min; Glucose 117 mg/dL (74-106); Potassium 3.3 mmol/L (3.5-5.1); Sodium Level 136 mmol/L (136-145)
[2022-06-28] MEDS: Voriconazole 200 MG Tablet PO ×2 (10:28→16:49)
--- NOTE | 2022-06-28 10:43 | PCM.PN.GU ---
Subjective Subjective Sitting in bed, taking medication. Not feeling especially motivated today, but trying. She had 2 large bowel movements last night. Ambulation slowly improving. Objective Data Objective Data Vital Signs: Vital Signs Temp Pulse Resp BP Pulse Ox O2 Del Method O2 Flow Rate 97.9 F 123 H 20 H 101/60 96 Nasal Cannula 2 06/27/22 16:00 06/28/22 08:13 06/27/22 19:26 06/28/22 08:13 06/28/22 07:54 06/28/22 07:54 06/28/22 07:54 Oxygen Flow Rate (L/min) 2 Oxygen Delivery Method Nasal Cannula Weight: 65.4 kg Body Mass Index (BMI) 22.3 Intake & Output: Intake and Output for Last 24 Hours 06/26/22 06/27/22 06/28/22 23:59 23:59 23:59 Intake Total 360 / 360 660 / 660 240 / 240 Output Total 2750 / 2750 2450 / 2450 1500 / 1500 Balance -2390 / -2390 -1790 / -1790 -1260 / -1260 Medical Nutrition Assessment Dietitian: Malnutrition Criteria Met Start: 06/25/22 14:48 Freq: Status: Active Protocol: Document 06/25/22 14:48 SLA (Rec: 06/25/22 14:48 SLA [id number]) Nutrition Malnutrition Evidence of Malnutrition Exists Yes Malnutrition (severe): Acute Illness/Injury Evidenced By Suboptimal Energy Intake ( Severe),Weight Loss (Severe) Intake Problem Increased Nutrient Needs (specify) Etiology protein related to skin status Signs/Symptoms as evidenced by shearing savana buttocks and need for increased protein w/ meals Status Active Problem Inadequate Oral Intake Status Inactive Problem Clinical Problem Acute Disease or Injury Related Malnutrition Etiology related to acute illness, food not tasting right and inability to consume adequate nutrition to meet est nutritional needs Signs/Symptoms as evidenced by ~ <50% po intake > 5 days and 3.9% wt loss since adm. Status Active Problem Recommendation Dietitian Recommendations/Changes Will liberalize diet to Regular with 1 salt packet at meals d/t signs and symptoms of malnutrition Will provide chocolate magic cup w/ lunch and dinner Rec appetite stimulant to help encourage increased po intake at meals. Lab / Micro Data Result Diagrams: 06/27/22 05:26 06/28/22 08:07 Labs: Laboratory Results - last 24 hr 06/26/22 16:00: Miscellaneous Cytology SEE PATHOLOGY REPORT 06/28/22 06:20: POC Glucose 104 06/28/22 08:07: Sodium 136, Potassium 3.3 L, Chloride 104, Carbon Dioxide 26.0, Anion Gap 6, BUN 6 L, Creatinine 0.30 L, Estim Creat Clear Calc 52.81, Est GFR (MDRD) Af Amer 285, Est GFR (MDRD) Non-Af 235, BUN/Creatinine Ratio 20.1 H, Glucose 117 H, Calcium 7.5 L Micro: Microbiology 06/25/22 18:25 Urine Catheter - [place] Urine Culture - Final Klebsiella pneumoniae sp pneum 06/25/22 06:40 Nasal Secretion SARS-CoV-2 Antigen (Rapid) - Final Physical Exam Const alert, oriented x3 and no apparent distress HEENT normocephalic Eyes General Eye: normal appearance of both eyes Neck supple Chest inspection of chest normal Resp normal respiratory effort, normal air movement and no retractions Cardio regular rate Bladder / Kidney Exam: catheter in place other (urine clear yellow) Neuro oriented x3 and CN's II-XII intact bilaterally Psych mental status grossly normal and thought process normal Assessment & Plan Assessment/Plan (1) Hematuria: PLAN: resolved. CT normal from standpoint. Cytology shows no malignancy. On antibiotics for her infection she will need cystoscopy as outpatient (2) Recurrent urinary tract infection: (3) Urinary retention: PLAN: trial of void later this week when ambulating and having regular bowel movements ok to consider flomax from my standpoint, per primary service
[2022-06-28 10:55] LABS: Absolute Lymphocyte Count 1.87 X10^3/uL (0.83-4.51); Absolute Neutrophil Count 9.8 X10^3/uL (2.0-7.7); Basophil% 0.7 % (0-1); Eosinophil# 1.01 X10^3/uL; Hematocrit 27.1 % (37-47); Hemoglobin 8.1 g/dL (12.0-15.0); Lymphocyte # 1.87 X10^3/ul (0.83-4.51); Lymphocyte % 12.9 % (19-41); Mean Corp Hgb Conc 29.9 g/dL (32-36); Mean Corpuscular Hgb 27.6 pg (27.0-32.0); Mean Corpuscular Volume 92.5 fL (81-99); Mean Platelet Vol. 8.6 fl (6.2-12.0); Monocyte# 1.17 X10^3/uL; Monocyte% 8.1 % (0-10); NRBC Flagged by Analyzer 0 % (0-5); Neutrophil # 9.75 X10^3/uL (2.7-7.7); Neutrophil % 67.4 % (47-70); POSITIVE COUNT YES; RBC Distribution Width CV 18.9 % (11.6-14.6); RBC Distribution Width SD 64.9 fl (35.1-43.9); Red Blood Count 2.93 M/mm3 (4.2-5.4); White Blood Count 14.5 K/mm3 (4.4-11.0)
[2022-06-28 11:03] LABS: Differential Indicated SCAN CRITERIA MET; Platelet Count 779 K/mm3 (150-450)
--- NOTE | 2022-06-28 11:13 | NURSING ---
Called Dr. Wagner to update on Critical Plt Lab. N.O. to recheck CBC 06/29/22.
[2022-06-28 11:54] LABS: Differential Comment SCANNED; Platelet Estimate MKD INC (ADEQ)
[2022-06-28] MEDS: Ipratropium/Albuterol Sulfate 3 ML AMPUL.NEB INHALATION ×2 (13:50→19:37)
[2022-06-28] MEDS: Methenamine Hippurate 1 GM Tablet PO (21:17)
[2022-06-28] MEDS: Mirtazapine 15 MG Tablet 7.5 MG PO (21:17)
[2022-06-28] MEDS: Atorvastatin Calcium 20 MG Tablet PO (21:18)
[2022-06-29 05:10] LABS: Hemoglobin 7.7 g/dL (12.0-15.0); Mean Corp Hgb Conc 30.8 g/dL (32-36); Mean Corpuscular Hgb 28.2 pg (27.0-32.0); Mean Corpuscular Volume 91.6 fL (81-99); Mean Platelet Vol. 8.6 fl (6.2-12.0); POSITIVE COUNT YES; POSITIVE MORPHOLOGY YES; Platelet Count 728 K/mm3 (150-450); RBC Distribution Width SD 63.2 fl (35.1-43.9); Red Blood Count 2.73 M/mm3 (4.2-5.4)
[2022-06-29 05:12] LABS: Differential Indicated MANUAL DIFF
[2022-06-29] MEDS: Pantoprazole Sodium 40 MG Tablet PO ×2 (05:34→18:19)
[2022-06-29] MEDS: Cefdinir 300 MG Capsule PO ×2 (05:34→18:19)
[2022-06-29] MEDS: Nystatin Powder 15gm Bottle 1 APPLIC TOPICAL ×3 (05:35→21:28)
[2022-06-29 05:36] LABS: Eosinophil 9 % (0-5); Lymphocyte 20 % (19-41); Metamyelocyte 9 % (0-1); Monocyte 6 % (0-10); Myelocyte 2 % (0-0); Neutrophil-Band 2 % (0-5); Neutrophil-Segmented 52 % (47-70); Total Cells Counted 100 (MANUAL DIFF)
[2022-06-29 05:38] LABS: Absolute Lymphocyte Count 2.41 X10^3/uL (0.83-4.51); Absolute Neutrophil Count 7.8 X10^3/uL (2.0-7.7); Lymphocyte # 2.41 X10^3/ul (0.83-4.51); Neutrophil # 7.82 X10^3/uL (2.7-7.7)
[2022-06-29 05:39] LABS: Platelet Estimate MKD INC (ADEQ)
[2022-06-29 05:40] LABS: Red Cell Morphology NORM C+C NORMAL (NORM C&C)
[2022-06-29 06:45] LABS: Bedside Glucose 111 mg/dL (74-106)
[2022-06-29 07:05] VITALS: PULSE 111; RESP 16; O2SAT 91
[2022-06-29] MEDS: Ipratropium/Albuterol Sulfate 3 ML AMPUL.NEB INHALATION ×2 (07:05→19:10)
--- NOTE | 2022-06-29 08:30 | NURSING ---
Pt Heart Rate 156 BP 108/71. Pt HGB 7.7 Dr. Wagner updated N.O. to restart Digoxin and give first dose now and 1 unit of PRBC. Orders Read Back.
[2022-06-29 08:44] VITALS: BP 108/71; PULSE 130
[2022-06-29] MEDS: Sucralfate 1 GM Tablet PO ×4 (08:44→21:25)
[2022-06-29] MEDS: Metoprolol Tartrate 25 MG Tablet 6.25 MG PO ×2 (08:44→18:18)
[2022-06-29] MEDS: metFORMIN HCl 500 MG Tablet PO (08:44)
[2022-06-29] MEDS: Potassium Chloride Oral Tablet 20 MEQ PO ×2 (08:44→18:19)
[2022-06-29] MEDS: Midodrine HCl 5 MG Tablet 15 MG PO ×3 (08:45→18:19)
[2022-06-29 09:55] VITALS: BP 115/58; PULSE 106
[2022-06-29] MEDS: Digoxin 125 MCG Tablet PO (09:55)
[2022-06-29] MEDS: Voriconazole 200 MG Tablet PO ×2 (09:56→18:19)
[2022-06-29 11:58] VITALS: BP 114/61; PULSE 72
--- NOTE | 2022-06-29 13:36 | NURSING ---
Report Called to Ekaterina on PCU pt off unit for 1unit of PRBC.
[2022-06-29 18:18] VITALS: BP 120/51; PULSE 71
[2022-06-29 19:42] VITALS: PULSE 79; RESP 18; O2SAT 93
[2022-06-29] MEDS: Methenamine Hippurate 1 GM Tablet PO (21:25)
[2022-06-29] MEDS: Atorvastatin Calcium 20 MG Tablet PO (21:25)
[2022-06-29] MEDS: Mirtazapine 15 MG Tablet 7.5 MG PO (21:28)
[2022-06-30] VITALS (7 sets, daily range): BP systolic 97–118; BP diastolic 60–67; PULSE 66–120; RESP 16–21; TEMP 37.1; O2SAT 94–97
[2022-06-30] MEDS: Acetaminophen 500 MG Tablet 1000 MG PO (00:05)
--- NOTE | 2022-06-30 02:23 | EKG12_ITS ---
Test Reason : CP Blood Pressure : / mmHG Vent. Rate : 078 BPM Atrial Rate : 078 BPM P-R Int : 134 ms QRS Dur : 088 ms QT Int : 428 ms P-R-T Axes : 059 048 075 degrees QTc Int : 487 ms Normal sinus rhythm with occasional PVC's Low voltage QRS (Limb Leads) Confirmed by AJ DAY, KEITH ([id number]), scientific publications editor LAZARUS RATLIFF ([id number]) on 07/03/2022 9:42:47 AM Referred By: Art Wagner Confirmed By:KEITH ROCHA MD
--- NOTE | 2022-06-30 02:29 | NURSING ---
Patient pressed call light, stating she was having chest pain. Describes pain as beginning in abdomen and radiates up through middle of chest. States she has some pain in jaw as well. Has hx of A-fib with RVR, upper GI bleed, hemorrhagic shock. Vitals Obtained: 141/78-90-18-91% on 2L/min O2. Blood sugar 121. EKG obtained, showing normal sinus rhythm. Patient's Hgb recently 7.7, 1 unit of PRC received 06/29/22. Patient states she is feeling a little better. Will continue to monitor.
[2022-06-30 02:40] LABS: Bedside Glucose 121 mg/dL (74-106)
[2022-06-30] MEDS: Cefdinir 300 MG Capsule PO ×2 (05:14→17:51)
[2022-06-30] MEDS: Digoxin 125 MCG Tablet PO (05:14)
[2022-06-30] MEDS: Nystatin Powder 15gm Bottle 1 APPLIC TOPICAL ×3 (05:15→21:23)
[2022-06-30] MEDS: Alendronate Sodium 70 MG Tablet PO (05:15)
[2022-06-30] MEDS: Pantoprazole Sodium 40 MG Tablet PO ×2 (05:15→17:51)
--- NOTE | 2022-06-30 05:20 | NURSING ---
Patient stated she is feeling better at this time. Denies any pain or discomfort in abdomen, chest or jaw. VS WNL: 118/67- 76. Will continue to monitor.
[2022-06-30 06:05] LABS: Hematocrit 28.8 % (37-47); Hemoglobin 9.1 g/dL (12.0-15.0)
[2022-06-30 06:20] LABS: Bedside Glucose 113 mg/dL (74-106)
[2022-06-30 06:35] LABS: Anion Gap 5 (5-15); BUN 10 mg/dL (7-18); BUN/Creat Ratio 24.9 RATIO (10-20); Calcium,Total 7.8 mg/dL (8.5-10.1); Chloride 103 mmol/L (98-107); EST Glomerular Filtration Rate 167 mL/min (>60); Est Glom Filt Rate - Afr Amer 202 mL/min (>60); Estimated Creatinine Clearance 52.81 ml/min; Glucose 114 mg/dL (74-106); Potassium 3.8 mmol/L (3.5-5.1); Sodium Level 136 mmol/L (136-145)
[2022-06-30] MEDS: Ipratropium/Albuterol Sulfate 3 ML AMPUL.NEB INHALATION ×3 (07:15→18:55)
[2022-06-30] MEDS: Sucralfate 1 GM Tablet PO ×4 (08:36→21:23)
[2022-06-30] MEDS: Senna/Docusate Sodium 1 Tablet PO ×2 (08:36→17:51)
[2022-06-30] MEDS: metFORMIN HCl 500 MG Tablet PO (08:36)
[2022-06-30] MEDS: Potassium Chloride Oral Tablet 20 MEQ PO ×2 (08:37→17:51)
[2022-06-30] MEDS: Midodrine HCl 5 MG Tablet 15 MG PO ×3 (08:38→17:51)
[2022-06-30] MEDS: Metoprolol Tartrate 25 MG Tablet 6.25 MG PO ×2 (08:38→17:51)
--- NOTE | 2022-06-30 10:14 | MDS.RN ---
Addendum entered by Stephanie Lopez 06/30/22 10:16: Nursing reports resident declined pneumonia vaccine Original Note: Information for the mds was obtained from review of the clinical record, interview of resident, staff, and direct observation of resident's care.
[2022-06-30] MEDS: Voriconazole 200 MG Tablet PO ×2 (11:22→17:51)
[2022-06-30 13:40] LABS: Pathologist Review Reviewed
[2022-06-30 13:46] LABS: Pathologist Review Reviewed
--- NOTE | 2022-06-30 14:37 | WOUNDNOTE ---
wound photo: bilateral buttocks
[2022-06-30] MEDS: Atorvastatin Calcium 20 MG Tablet PO (21:23)
[2022-06-30] MEDS: Methenamine Hippurate 1 GM Tablet PO (21:23)
[2022-06-30] MEDS: Mirtazapine 15 MG Tablet 7.5 MG PO (21:24)
[2022-07-01] VITALS (9 sets, daily range): BP systolic 109–114; BP diastolic 67–68; PULSE 72–82; RESP 16–20; TEMP 36.1; O2SAT 94–97
[2022-07-01] MEDS: Acetaminophen 500 MG Tablet 1000 MG PO (00:07)
[2022-07-01] MEDS: Digoxin 125 MCG Tablet PO (05:44)
[2022-07-01] MEDS: Cefdinir 300 MG Capsule PO ×2 (05:44→16:31)
[2022-07-01] MEDS: Pantoprazole Sodium 40 MG Tablet PO ×2 (05:44→16:30)
[2022-07-01] MEDS: Sucralfate 1 GM Tablet PO ×4 (05:45→20:44)
[2022-07-01] MEDS: Nystatin Powder 15gm Bottle 1 APPLIC TOPICAL ×3 (05:48→20:47)
[2022-07-01 06:45] LABS: Bedside Glucose 98 mg/dL (74-106)
[2022-07-01] MEDS: Ipratropium/Albuterol Sulfate 3 ML AMPUL.NEB INHALATION ×3 (07:20→19:14)
[2022-07-01] MEDS: Midodrine HCl 5 MG Tablet 15 MG PO ×3 (08:32→16:30)
[2022-07-01] MEDS: metFORMIN HCl 500 MG Tablet PO (08:33)
[2022-07-01] MEDS: Senna/Docusate Sodium 1 Tablet PO ×2 (08:33→16:30)
[2022-07-01] MEDS: Potassium Chloride Oral Tablet 20 MEQ PO ×2 (08:33→16:30)
[2022-07-01] MEDS: Metoprolol Tartrate 25 MG Tablet 6.25 MG PO ×2 (08:33→16:30)
[2022-07-01] MEDS: Voriconazole 200 MG Tablet PO ×2 (08:35→16:30)
--- NOTE | 2022-07-01 11:11 | NURSING ---
diehl reinserted d/t urinary retention >1000ml. pt cannot tell when she voids or having BM's
[2022-07-01] MEDS: APIXABAN 5 MG TABLET PO (16:31)
[2022-07-01] MEDS: Atorvastatin Calcium 20 MG Tablet PO (20:44)
[2022-07-01] MEDS: Methenamine Hippurate 1 GM Tablet PO (20:45)
[2022-07-01] MEDS: Mirtazapine 15 MG Tablet 7.5 MG PO (20:45)
[2022-07-02] VITALS (9 sets, daily range): BP systolic 97–119; BP diastolic 50–70; PULSE 67–88; RESP 14–21; TEMP 36.8; O2SAT 91–97
[2022-07-02] MEDS: Acetaminophen 500 MG Tablet 1000 MG PO ×2 (01:40→22:31)
[2022-07-02] MEDS: Pantoprazole Sodium 40 MG Tablet PO ×2 (05:59→17:18)
[2022-07-02] MEDS: 0.9% Saline Lock 10 ML Syringe IV ×2 (05:59→17:44)
[2022-07-02] MEDS: Digoxin 125 MCG Tablet PO (06:00)
[2022-07-02] MEDS: Cefdinir 300 MG Capsule PO ×2 (06:01→17:18)
[2022-07-02] MEDS: Sucralfate 1 GM Tablet PO ×4 (06:02→21:03)
[2022-07-02] MEDS: Nystatin Powder 15gm Bottle 1 APPLIC TOPICAL ×3 (06:03→21:06)
[2022-07-02 06:40] LABS: Bedside Glucose 99 mg/dL (74-106)
[2022-07-02] MEDS: Ipratropium/Albuterol Sulfate 3 ML AMPUL.NEB INHALATION ×3 (07:30→18:55)
[2022-07-02] MEDS: Potassium Chloride Oral Tablet 20 MEQ PO ×2 (08:27→17:16)
[2022-07-02] MEDS: metFORMIN HCl 500 MG Tablet PO (08:27)
[2022-07-02] MEDS: Midodrine HCl 5 MG Tablet 15 MG PO ×3 (08:27→17:18)
[2022-07-02] MEDS: Metoprolol Tartrate 25 MG Tablet 6.25 MG PO ×2 (08:27→17:17)
[2022-07-02] MEDS: APIXABAN 5 MG TABLET PO ×2 (08:28→17:17)
[2022-07-02] MEDS: Senna/Docusate Sodium 1 Tablet PO ×2 (08:28→17:19)
[2022-07-02] MEDS: Voriconazole 200 MG Tablet PO ×2 (10:47→17:16)
[2022-07-02] MEDS: BACITRACIN 15 GM Tube 1 APPLIC TOPICAL (17:40)
[2022-07-02] MEDS: Methenamine Hippurate 1 GM Tablet PO (21:03)
[2022-07-02] MEDS: Atorvastatin Calcium 20 MG Tablet PO (21:03)
[2022-07-02] MEDS: Mirtazapine 15 MG Tablet 7.5 MG PO (21:03)
[2022-07-03] VITALS (8 sets, daily range): BP systolic 117–122; BP diastolic 50–69; PULSE 61–77; RESP 16–22; TEMP 36.2; O2SAT 94–98
[2022-07-03 05:30] LABS: Absolute Lymphocyte Count 2.33 X10^3/uL (0.83-4.51); Absolute Neutrophil Count 6.7 X10^3/uL (2.0-7.7); Basophil# 0.12 X10^3/uL; Eosinophil# 1.19 X10^3/uL; Hematocrit 29.5 % (37-47); Hemoglobin 9.3 g/dL (12.0-15.0); Lymphocyte # 2.33 X10^3/ul (0.83-4.51); Lymphocyte % 19.6 % (19-41); Mean Corp Hgb Conc 31.5 g/dL (32-36); Mean Corpuscular Hgb 28.6 pg (27.0-32.0); Mean Corpuscular Volume 90.8 fL (81-99); Mean Platelet Vol. 8.4 fl (6.2-12.0); Monocyte# 1.21 X10^3/uL; Monocyte% 10.2 % (0-10); NRBC Flagged by Analyzer 0 % (0-5); Neutrophil % 56.5 % (47-70); Platelet Count 627 K/mm3 (150-450); RBC Distribution Width CV 18.5 % (11.6-14.6); RBC Distribution Width SD 61.1 fl (35.1-43.9); Red Blood Count 3.25 M/mm3 (4.2-5.4); White Blood Count 11.9 K/mm3 (4.4-11.0)
[2022-07-03 05:51] LABS: Anion Gap 6 (5-15); BUN 11 mg/dL (7-18); BUN/Creat Ratio 25.5 RATIO (10-20); Calcium,Total 8.1 mg/dL (8.5-10.1); Chloride 103 mmol/L (98-107); Creatinine, Serum 0.43 mg/dL (0.55-1.02); EST Glomerular Filtration Rate 154 mL/min (>60); Est Glom Filt Rate - Afr Amer 186 mL/min (>60); Glucose 105 mg/dL (74-106); Potassium 3.8 mmol/L (3.5-5.1); Sodium Level 135 mmol/L (136-145)
[2022-07-03] MEDS: Nystatin Powder 15gm Bottle 1 APPLIC TOPICAL ×3 (05:59→22:17)
[2022-07-03] MEDS: Pantoprazole Sodium 40 MG Tablet PO ×2 (06:00→16:58)
[2022-07-03] MEDS: Digoxin 125 MCG Tablet PO (06:00)
[2022-07-03] MEDS: Sucralfate 1 GM Tablet PO ×4 (06:00→21:32)
[2022-07-03] MEDS: BACITRACIN 15 GM Tube 1 APPLIC TOPICAL ×2 (06:01→16:59)
[2022-07-03 06:51] LABS: Bedside Glucose 114 mg/dL (74-106)
[2022-07-03] MEDS: Ipratropium/Albuterol Sulfate 3 ML AMPUL.NEB INHALATION ×2 (07:10→19:12)
[2022-07-03] MEDS: Potassium Chloride Oral Tablet 20 MEQ PO ×2 (08:07→16:59)
[2022-07-03] MEDS: Senna/Docusate Sodium 1 Tablet PO ×2 (08:07→16:58)
[2022-07-03] MEDS: Midodrine HCl 5 MG Tablet 15 MG PO ×3 (08:07→16:58)
[2022-07-03] MEDS: Metoprolol Tartrate 25 MG Tablet 6.25 MG PO ×2 (08:07→16:58)
[2022-07-03] MEDS: metFORMIN HCl 500 MG Tablet PO (08:07)
[2022-07-03] MEDS: APIXABAN 5 MG TABLET PO ×2 (08:07→16:59)
[2022-07-03] MEDS: Voriconazole 200 MG Tablet PO ×2 (10:33→16:59)
[2022-07-03] MEDS: 0.9% Saline Lock 10 ML Syringe IV (17:04)
[2022-07-03] MEDS: Atorvastatin Calcium 20 MG Tablet PO (21:32)
[2022-07-03] MEDS: Methenamine Hippurate 1 GM Tablet PO (21:33)
[2022-07-03] MEDS: Mirtazapine 15 MG Tablet 7.5 MG PO (22:16)
[2022-07-04] VITALS (7 sets, daily range): BP systolic 105–139; BP diastolic 57–70; PULSE 69–97; RESP 16–20; TEMP 36.4; O2SAT 94–97
[2022-07-04] MEDS: Digoxin 125 MCG Tablet PO (05:31)
[2022-07-04] MEDS: Iron Polysaccharide Complex 150 MG CAPSULE PO (05:31)
[2022-07-04] MEDS: Sucralfate 1 GM Tablet PO ×4 (05:32→21:38)
[2022-07-04] MEDS: Pantoprazole Sodium 40 MG Tablet PO ×2 (05:32→17:59)
[2022-07-04] MEDS: Nystatin Powder 15gm Bottle 1 APPLIC TOPICAL ×3 (05:32→21:35)
[2022-07-04] MEDS: BACITRACIN 15 GM Tube 1 APPLIC TOPICAL ×2 (05:33→18:00)
[2022-07-04 06:41] LABS: Bedside Glucose 120 mg/dL (74-106)
[2022-07-04] MEDS: Ipratropium/Albuterol Sulfate 3 ML AMPUL.NEB INHALATION ×2 (07:38→19:08)
[2022-07-04] MEDS: Metoprolol Tartrate 25 MG Tablet 6.25 MG PO ×2 (09:04→17:59)
[2022-07-04] MEDS: metFORMIN HCl 500 MG Tablet PO (09:05)
[2022-07-04] MEDS: Potassium Chloride Oral Tablet 20 MEQ PO ×2 (09:05→18:00)
[2022-07-04] MEDS: Voriconazole 200 MG Tablet PO ×2 (09:05→17:59)
[2022-07-04] MEDS: Senna/Docusate Sodium 1 Tablet PO ×2 (09:05→17:59)
[2022-07-04] MEDS: APIXABAN 5 MG TABLET PO ×2 (09:06→18:00)
[2022-07-04] MEDS: Midodrine HCl 5 MG Tablet 15 MG PO ×3 (09:06→17:59)
[2022-07-04] MEDS: 0.9% Saline Lock 10 ML Syringe IV ×2 (18:06→21:47)
[2022-07-04] MEDS: Mirtazapine 15 MG Tablet 7.5 MG PO (21:33)
[2022-07-04] MEDS: Atorvastatin Calcium 20 MG Tablet PO (21:34)
[2022-07-04] MEDS: Methenamine Hippurate 1 GM Tablet PO (21:37)
[2022-07-05] VITALS (8 sets, daily range): BP systolic 110–122; BP diastolic 56–61; PULSE 73–78; RESP 18; TEMP 36.6; O2SAT 95–96
[2022-07-05] MEDS: Nystatin Powder 15gm Bottle 1 APPLIC TOPICAL ×3 (05:29→19:57)
[2022-07-05] MEDS: BACITRACIN 15 GM Tube 1 APPLIC TOPICAL ×2 (05:29→16:38)
[2022-07-05] MEDS: Digoxin 125 MCG Tablet PO (05:30)
[2022-07-05] MEDS: Iron Polysaccharide Complex 150 MG CAPSULE PO (05:30)
[2022-07-05] MEDS: Pantoprazole Sodium 40 MG Tablet PO ×2 (05:33→16:39)
[2022-07-05] MEDS: Sucralfate 1 GM Tablet PO ×4 (06:01→19:56)
[2022-07-05 06:35] LABS: Bedside Glucose 130 mg/dL (74-106)
[2022-07-05] MEDS: Ipratropium/Albuterol Sulfate 3 ML AMPUL.NEB INHALATION ×3 (07:32→19:35)
[2022-07-05] MEDS: Midodrine HCl 5 MG Tablet 15 MG PO ×3 (08:25→16:38)
[2022-07-05] MEDS: metFORMIN HCl 500 MG Tablet PO (08:25)
[2022-07-05] MEDS: APIXABAN 5 MG TABLET PO ×2 (08:25→16:40)
[2022-07-05] MEDS: Metoprolol Tartrate 25 MG Tablet 6.25 MG PO ×2 (08:26→16:39)
[2022-07-05] MEDS: Senna/Docusate Sodium 1 Tablet PO ×2 (08:26→16:39)
[2022-07-05] MEDS: Potassium Chloride Oral Tablet 20 MEQ PO ×2 (08:26→16:39)
[2022-07-05] MEDS: Voriconazole 200 MG Tablet PO ×2 (10:02→16:39)
[2022-07-05] MEDS: Methenamine Hippurate 1 GM Tablet PO (19:57)
[2022-07-05] MEDS: Atorvastatin Calcium 20 MG Tablet PO (19:57)
[2022-07-05] MEDS: Mirtazapine 15 MG Tablet 7.5 MG PO (19:58)
[2022-07-06] VITALS (8 sets, daily range): BP systolic 106–120; BP diastolic 52–60; PULSE 64–97; RESP 18–20; TEMP 36.8; O2SAT 93–97
[2022-07-06] MEDS: Acetaminophen 500 MG Tablet 1000 MG PO ×2 (00:41→22:49)
[2022-07-06] MEDS: Iron Polysaccharide Complex 150 MG CAPSULE PO (05:17)
[2022-07-06] MEDS: BACITRACIN 15 GM Tube 1 APPLIC TOPICAL ×2 (05:17→17:34)
[2022-07-06] MEDS: Pantoprazole Sodium 40 MG Tablet PO ×2 (05:18→17:32)
[2022-07-06] MEDS: Nystatin Powder 15gm Bottle 1 APPLIC TOPICAL ×3 (05:18→20:24)
[2022-07-06] MEDS: Sucralfate 1 GM Tablet PO ×4 (05:18→20:24)
[2022-07-06] MEDS: Digoxin 125 MCG Tablet PO (05:22)
[2022-07-06 06:46] LABS: Bedside Glucose 128 mg/dL (74-106)
[2022-07-06] MEDS: Ipratropium/Albuterol Sulfate 3 ML AMPUL.NEB INHALATION ×3 (07:37→20:15)
[2022-07-06] MEDS: Potassium Chloride Oral Tablet 20 MEQ PO ×2 (09:28→17:33)
[2022-07-06] MEDS: APIXABAN 5 MG TABLET PO ×2 (09:28→17:33)
[2022-07-06] MEDS: Voriconazole 200 MG Tablet PO ×2 (09:28→17:33)
[2022-07-06] MEDS: metFORMIN HCl 500 MG Tablet PO (09:28)
[2022-07-06] MEDS: Senna/Docusate Sodium 1 Tablet PO ×2 (09:28→17:33)
[2022-07-06] MEDS: Midodrine HCl 5 MG Tablet 15 MG PO ×3 (09:28→17:32)
[2022-07-06] MEDS: Metoprolol Tartrate 25 MG Tablet 6.25 MG PO ×2 (09:29→17:31)
[2022-07-06] MEDS: Methenamine Hippurate 1 GM Tablet PO (20:24)
[2022-07-06] MEDS: Mirtazapine 15 MG Tablet 7.5 MG PO (20:24)
[2022-07-06] MEDS: Atorvastatin Calcium 20 MG Tablet PO (20:25)
[2022-07-07] VITALS (7 sets, daily range): BP systolic 113–129; BP diastolic 62–72; PULSE 62–96; RESP 16–19; TEMP 36.6; O2SAT 94–98
[2022-07-07] MEDS: BACITRACIN 15 GM Tube 1 APPLIC TOPICAL ×2 (05:39→17:47)
[2022-07-07] MEDS: Sucralfate 1 GM Tablet PO ×4 (05:40→21:14)
[2022-07-07] MEDS: Iron Polysaccharide Complex 150 MG CAPSULE PO (05:40)
[2022-07-07] MEDS: Pantoprazole Sodium 40 MG Tablet PO ×2 (05:40→17:48)
[2022-07-07] MEDS: Alendronate Sodium 70 MG Tablet PO (05:41)
[2022-07-07] MEDS: Nystatin Powder 15gm Bottle 1 APPLIC TOPICAL ×3 (05:41→21:13)
[2022-07-07] MEDS: Digoxin 125 MCG Tablet PO (05:43)
[2022-07-07 06:50] LABS: Bedside Glucose 138 mg/dL (74-106)
[2022-07-07] MEDS: Ipratropium/Albuterol Sulfate 3 ML AMPUL.NEB INHALATION ×2 (07:39→19:10)
[2022-07-07] MEDS: Midodrine HCl 5 MG Tablet 15 MG PO ×3 (08:03→17:49)
[2022-07-07] MEDS: APIXABAN 5 MG TABLET PO ×2 (08:03→16:14)
[2022-07-07] MEDS: metFORMIN HCl 500 MG Tablet PO (08:04)
[2022-07-07] MEDS: Potassium Chloride Oral Tablet 20 MEQ PO ×2 (08:04→16:14)
[2022-07-07] MEDS: Metoprolol Tartrate 25 MG Tablet 6.25 MG PO ×2 (08:04→16:14)
[2022-07-07] MEDS: Senna/Docusate Sodium 1 Tablet PO ×2 (08:08→16:16)
[2022-07-07] MEDS: Voriconazole 200 MG Tablet PO ×2 (10:21→17:51)
--- NOTE | 2022-07-07 11:29 | NURSING ---
stool noted on miplex. changed miplex. Patient appreciated care
[2022-07-07] MEDS: Methenamine Hippurate 1 GM Tablet PO (21:13)
[2022-07-07] MEDS: Mirtazapine 15 MG Tablet 7.5 MG PO (21:14)
[2022-07-07] MEDS: Atorvastatin Calcium 20 MG Tablet PO (21:14)
[2022-07-08] VITALS (7 sets, daily range): BP systolic 112–123; BP diastolic 56–64; PULSE 66–107; RESP 16–20; TEMP 36.6; O2SAT 97–98
[2022-07-08] MEDS: Nystatin Powder 15gm Bottle 1 APPLIC TOPICAL ×3 (06:21→20:41)
[2022-07-08] MEDS: 0.9% Saline Lock 10 ML Syringe IV (06:21)
[2022-07-08] MEDS: Pantoprazole Sodium 40 MG Tablet PO ×2 (06:26→16:42)
[2022-07-08] MEDS: Digoxin 125 MCG Tablet PO (06:26)
[2022-07-08] MEDS: Iron Polysaccharide Complex 150 MG CAPSULE PO (06:26)
[2022-07-08] MEDS: BACITRACIN 15 GM Tube 1 APPLIC TOPICAL ×2 (06:27→16:45)
[2022-07-08 06:36] LABS: Bedside Glucose 126 mg/dL (74-106)
[2022-07-08] MEDS: Midodrine HCl 5 MG Tablet 15 MG PO ×3 (08:09→16:42)
[2022-07-08] MEDS: APIXABAN 5 MG TABLET PO ×2 (08:09→16:42)
[2022-07-08] MEDS: Potassium Chloride Oral Tablet 20 MEQ PO ×2 (08:09→16:42)
[2022-07-08] MEDS: metFORMIN HCl 500 MG Tablet PO (08:09)
[2022-07-08] MEDS: Metoprolol Tartrate 25 MG Tablet 6.25 MG PO ×2 (08:10→16:41)
[2022-07-08] MEDS: Sucralfate 1 GM Tablet PO ×4 (08:10→20:35)
[2022-07-08] MEDS: Senna/Docusate Sodium 1 Tablet PO ×2 (08:10→16:42)
[2022-07-08] MEDS: Voriconazole 200 MG Tablet PO ×2 (10:37→16:42)
[2022-07-08] MEDS: Ipratropium/Albuterol Sulfate 3 ML AMPUL.NEB INHALATION ×2 (13:07→19:32)
--- NOTE | 2022-07-08 13:42 | WOUNDNOTE ---
wound photo: bilateral buttocks
[2022-07-08] MEDS: Mirtazapine 15 MG Tablet 7.5 MG PO (20:34)
[2022-07-08] MEDS: Methenamine Hippurate 1 GM Tablet PO (20:34)
[2022-07-08] MEDS: Atorvastatin Calcium 20 MG Tablet PO (20:34)
[2022-07-08] MEDS: Acetaminophen 500 MG Tablet 1000 MG PO (22:58)
[2022-07-09] VITALS (9 sets, daily range): BP systolic 104–119; BP diastolic 56–58; PULSE 69–88; RESP 18–20; TEMP 36.8; O2SAT 92–98
[2022-07-09] MEDS: Ipratropium/Albuterol Sulfate 3 ML AMPUL.NEB INHALATION ×3 (06:33→19:07)
[2022-07-09 06:40] LABS: Bedside Glucose 111 mg/dL (74-106)
[2022-07-09] MEDS: BACITRACIN 15 GM Tube 1 APPLIC TOPICAL ×2 (06:52→18:26)
[2022-07-09] MEDS: Pantoprazole Sodium 40 MG Tablet PO ×2 (06:53→18:26)
[2022-07-09] MEDS: Sucralfate 1 GM Tablet PO ×4 (06:53→21:24)
[2022-07-09] MEDS: Iron Polysaccharide Complex 150 MG CAPSULE PO (06:53)
[2022-07-09] MEDS: Digoxin 125 MCG Tablet PO (06:53)
[2022-07-09] MEDS: Nystatin Powder 15gm Bottle 1 APPLIC TOPICAL ×3 (06:57→21:24)
[2022-07-09] MEDS: Voriconazole 200 MG Tablet PO ×2 (09:11→18:26)
[2022-07-09] MEDS: Midodrine HCl 5 MG Tablet 15 MG PO ×3 (09:12→18:26)
[2022-07-09] MEDS: Senna/Docusate Sodium 1 Tablet PO ×2 (09:12→18:25)
[2022-07-09] MEDS: APIXABAN 5 MG TABLET PO ×2 (09:12→18:23)
[2022-07-09] MEDS: metFORMIN HCl 500 MG Tablet PO (09:12)
[2022-07-09] MEDS: Potassium Chloride Oral Tablet 20 MEQ PO ×2 (09:12→18:24)
[2022-07-09] MEDS: Metoprolol Tartrate 25 MG Tablet 6.25 MG PO ×2 (09:12→18:25)
[2022-07-09] MEDS: Mirtazapine 15 MG Tablet 7.5 MG PO (21:23)
[2022-07-09] MEDS: Atorvastatin Calcium 20 MG Tablet PO (21:24)
[2022-07-09] MEDS: Methenamine Hippurate 1 GM Tablet PO (21:24)
[2022-07-10] VITALS (7 sets, daily range): BP systolic 107–111; BP diastolic 57–60; PULSE 64–84; RESP 16–20; TEMP 36.4; O2SAT 94–95
[2022-07-10] MEDS: Acetaminophen 500 MG Tablet 1000 MG PO (00:11)
[2022-07-10 05:37] LABS: Absolute Lymphocyte Count 1.87 X10^3/uL (0.83-4.51); Absolute Neutrophil Count 6.7 X10^3/uL (2.0-7.7); Basophil% 0.8 % (0-1); Eosinophil# 1.64 X10^3/uL; Eosinophils% 13.9 % (0-5); Hematocrit 32.7 % (37-47); Hemoglobin 10.1 g/dL (12.0-15.0); Lymphocyte # 1.87 X10^3/ul (0.83-4.51); Lymphocyte % 15.8 % (19-41); Mean Corp Hgb Conc 30.9 g/dL (32-36); Mean Corpuscular Hgb 27.8 pg (27.0-32.0); Mean Corpuscular Volume 90.1 fL (81-99); Mean Platelet Vol. 9.3 fl (6.2-12.0); Monocyte# 1.24 X10^3/uL; Monocyte% 10.5 % (0-10); NRBC Flagged by Analyzer 0 % (0-5); Neutrophil # 6.73 X10^3/uL (2.7-7.7); Neutrophil % 57.1 % (47-70); Platelet Count 587 K/mm3 (150-450); RBC Distribution Width CV 17.6 % (11.6-14.6); RBC Distribution Width SD 59.4 fl (35.1-43.9); Red Blood Count 3.63 M/mm3 (4.2-5.4); White Blood Count 11.8 K/mm3 (4.4-11.0)
[2022-07-10] MEDS: Iron Polysaccharide Complex 150 MG CAPSULE PO (05:49)
[2022-07-10] MEDS: BACITRACIN 15 GM Tube 1 APPLIC TOPICAL ×2 (05:50→17:55)
[2022-07-10] MEDS: Pantoprazole Sodium 40 MG Tablet PO ×2 (05:50→17:35)
[2022-07-10] MEDS: Digoxin 125 MCG Tablet PO (05:53)
[2022-07-10] MEDS: Nystatin Powder 15gm Bottle 1 APPLIC TOPICAL ×3 (05:53→21:35)
[2022-07-10] MEDS: Sucralfate 1 GM Tablet PO ×4 (05:54→21:33)
[2022-07-10 06:35] LABS: Anion Gap 7 (5-15); BUN 12 mg/dL (7-18); Calcium,Total 8.5 mg/dL (8.5-10.1); Chloride 102 mmol/L (98-107); EST Glomerular Filtration Rate 129 mL/min (>60); Est Glom Filt Rate - Afr Amer 156 mL/min (>60); Estimated Creatinine Clearance 48.92 ml/min; Glucose 129 mg/dL (74-106); Potassium 3.7 mmol/L (3.5-5.1); Sodium Level 134 mmol/L (136-145)
[2022-07-10 06:35] LABS: Bedside Glucose 127 mg/dL (74-106)
[2022-07-10] MEDS: APIXABAN 5 MG TABLET PO ×2 (07:57→17:35)
[2022-07-10] MEDS: Midodrine HCl 5 MG Tablet 15 MG PO ×3 (07:57→17:35)
[2022-07-10] MEDS: Potassium Chloride Oral Tablet 20 MEQ PO ×2 (07:58→17:35)
[2022-07-10] MEDS: metFORMIN HCl 500 MG Tablet PO (07:58)
[2022-07-10] MEDS: Metoprolol Tartrate 25 MG Tablet 6.25 MG PO ×2 (07:59→17:35)
[2022-07-10] MEDS: Senna/Docusate Sodium 1 Tablet PO ×2 (08:03→17:34)
[2022-07-10] MEDS: Voriconazole 200 MG Tablet PO ×2 (10:08→17:34)
[2022-07-10] MEDS: Ipratropium/Albuterol Sulfate 3 ML AMPUL.NEB INHALATION ×2 (13:21→19:12)
[2022-07-10] MEDS: Mirtazapine 15 MG Tablet 7.5 MG PO (21:33)
[2022-07-10] MEDS: Atorvastatin Calcium 20 MG Tablet PO (21:34)
[2022-07-10] MEDS: Methenamine Hippurate 1 GM Tablet PO (21:34)
[2022-07-10] MEDS: Calcium Carbonate 500 MG Tablet PO (23:21)
[2022-07-11] VITALS (10 sets, daily range): BP systolic 108–112; BP diastolic 55–64; PULSE 72–105; RESP 16–18; TEMP 36.6; O2SAT 93–97
[2022-07-11] MEDS: BACITRACIN 15 GM Tube 1 APPLIC TOPICAL ×2 (05:18→17:27)
[2022-07-11] MEDS: Iron Polysaccharide Complex 150 MG CAPSULE PO (06:10)
[2022-07-11] MEDS: Sucralfate 1 GM Tablet PO ×4 (06:10→20:47)
[2022-07-11] MEDS: Digoxin 125 MCG Tablet PO (06:10)
[2022-07-11] MEDS: Pantoprazole Sodium 40 MG Tablet PO ×2 (06:10→17:35)
[2022-07-11] MEDS: Nystatin Powder 15gm Bottle 1 APPLIC TOPICAL ×3 (06:11→20:49)
[2022-07-11 06:46] LABS: Bedside Glucose 129 mg/dL (74-106)
[2022-07-11] MEDS: Ipratropium/Albuterol Sulfate 3 ML AMPUL.NEB INHALATION ×3 (07:30→19:25)
[2022-07-11] MEDS: Potassium Chloride Oral Tablet 20 MEQ PO ×2 (08:13→17:32)
[2022-07-11] MEDS: metFORMIN HCl 500 MG Tablet PO (08:14)
[2022-07-11] MEDS: APIXABAN 5 MG TABLET PO ×2 (08:14→17:32)
[2022-07-11] MEDS: Metoprolol Tartrate 25 MG Tablet 6.25 MG PO ×2 (08:17→17:33)
[2022-07-11] MEDS: Midodrine HCl 5 MG Tablet 15 MG PO ×3 (08:17→17:35)
[2022-07-11] MEDS: Senna/Docusate Sodium 1 Tablet PO ×2 (08:18→17:35)
[2022-07-11] MEDS: Voriconazole 200 MG Tablet PO ×2 (09:16→17:37)
[2022-07-11] MEDS: Methenamine Hippurate 1 GM Tablet PO (20:47)
[2022-07-11] MEDS: Atorvastatin Calcium 20 MG Tablet PO (20:47)
[2022-07-11] MEDS: Mirtazapine 15 MG Tablet 7.5 MG PO (20:47)
[2022-07-12] VITALS (8 sets, daily range): BP systolic 112–119; BP diastolic 58–60; PULSE 65–76; RESP 16–119; TEMP 37.1; O2SAT 96
[2022-07-12] MEDS: Acetaminophen 500 MG Tablet 1000 MG PO (00:56)
[2022-07-12] MEDS: BACITRACIN 15 GM Tube 1 APPLIC TOPICAL ×2 (05:55→17:51)
[2022-07-12] MEDS: Pantoprazole Sodium 40 MG Tablet PO ×2 (05:56→17:52)
[2022-07-12] MEDS: Iron Polysaccharide Complex 150 MG CAPSULE PO (05:56)
[2022-07-12] MEDS: Digoxin 125 MCG Tablet PO (05:56)
[2022-07-12] MEDS: Sucralfate 1 GM Tablet PO ×4 (05:57→21:15)
[2022-07-12] MEDS: Nystatin Powder 15gm Bottle 1 APPLIC TOPICAL ×3 (06:01→21:14)
[2022-07-12 06:41] LABS: Bedside Glucose 134 mg/dL (74-106)
[2022-07-12] MEDS: Ipratropium/Albuterol Sulfate 3 ML AMPUL.NEB INHALATION ×3 (07:36→19:11)
[2022-07-12] MEDS: Midodrine HCl 5 MG Tablet 15 MG PO ×3 (08:42→17:51)
[2022-07-12] MEDS: APIXABAN 5 MG TABLET PO ×2 (08:43→17:46)
[2022-07-12] MEDS: Potassium Chloride Oral Tablet 20 MEQ PO ×2 (08:44→17:46)
[2022-07-12] MEDS: metFORMIN HCl 500 MG Tablet PO (08:44)
[2022-07-12] MEDS: Metoprolol Tartrate 25 MG Tablet 6.25 MG PO ×2 (08:44→17:50)
[2022-07-12] MEDS: Senna/Docusate Sodium 1 Tablet PO ×2 (08:45→17:51)
[2022-07-12] MEDS: Voriconazole 200 MG Tablet PO ×2 (08:46→17:52)
[2022-07-12] MEDS: Methenamine Hippurate 1 GM Tablet PO (21:14)
[2022-07-12] MEDS: Atorvastatin Calcium 20 MG Tablet PO (21:14)
[2022-07-12] MEDS: Mirtazapine 15 MG Tablet 7.5 MG PO (21:14)
[2022-07-13] VITALS (8 sets, daily range): BP systolic 120–124; BP diastolic 63; PULSE 69–76; RESP 16–18; TEMP 36.4; O2SAT 95–99
[2022-07-13] MEDS: Acetaminophen 500 MG Tablet 1000 MG PO (01:09)
[2022-07-13] MEDS: Sucralfate 1 GM Tablet PO ×4 (06:22→21:17)
[2022-07-13] MEDS: Pantoprazole Sodium 40 MG Tablet PO ×2 (06:22→16:57)
[2022-07-13] MEDS: Nystatin Powder 15gm Bottle 1 APPLIC TOPICAL ×3 (06:22→21:18)
[2022-07-13] MEDS: Iron Polysaccharide Complex 150 MG CAPSULE PO (06:22)
[2022-07-13] MEDS: Digoxin 125 MCG Tablet PO (06:24)
[2022-07-13 06:31] LABS: Bedside Glucose 116 mg/dL (74-106)
[2022-07-13] MEDS: BACITRACIN 15 GM Tube 1 APPLIC TOPICAL ×2 (06:37→17:00)
[2022-07-13] MEDS: Ipratropium/Albuterol Sulfate 3 ML AMPUL.NEB INHALATION ×3 (07:39→20:00)
[2022-07-13] MEDS: APIXABAN 5 MG TABLET PO ×2 (08:08→16:54)
[2022-07-13] MEDS: Midodrine HCl 5 MG Tablet 15 MG PO ×3 (08:09→16:56)
[2022-07-13] MEDS: metFORMIN HCl 500 MG Tablet PO (08:09)
[2022-07-13] MEDS: Potassium Chloride Oral Tablet 20 MEQ PO ×2 (08:09→16:55)
[2022-07-13] MEDS: Senna/Docusate Sodium 1 Tablet PO (08:10)
[2022-07-13] MEDS: Voriconazole 200 MG Tablet PO ×2 (08:11→16:57)
[2022-07-13] MEDS: Metoprolol Tartrate 25 MG Tablet 6.25 MG PO ×2 (08:13→16:55)
[2022-07-13] MEDS: Methenamine Hippurate 1 GM Tablet PO (21:17)
[2022-07-13] MEDS: Mirtazapine 15 MG Tablet 7.5 MG PO (21:17)
[2022-07-13] MEDS: Atorvastatin Calcium 20 MG Tablet PO (21:17)
--- NOTE | 2022-07-13 22:00 | NURSING ---
[facility] Hospitalist contacted unit via phone requesting last dose of Xarelto administered, Hospitalist notified that patient refused today's dose and last dose administered was 07/12/22 per MAR
[2022-07-14] MEDS: Acetaminophen 500 MG Tablet 1000 MG PO ×2 (00:02→23:39)
[2022-07-14] MEDS: Alendronate Sodium 70 MG Tablet PO (05:20)
[2022-07-14 06:16] VITALS: BP 130/61; PULSE 69
[2022-07-14] MEDS: Iron Polysaccharide Complex 150 MG CAPSULE PO (06:16)
[2022-07-14] MEDS: Digoxin 125 MCG Tablet PO (06:16)
[2022-07-14] MEDS: Pantoprazole Sodium 40 MG Tablet PO ×2 (06:17→17:52)
[2022-07-14] MEDS: Sucralfate 1 GM Tablet PO ×4 (06:17→21:30)
[2022-07-14] MEDS: Nystatin Powder 15gm Bottle 1 APPLIC TOPICAL ×3 (06:17→21:31)
[2022-07-14] MEDS: BACITRACIN 15 GM Tube 1 APPLIC TOPICAL ×2 (06:18→17:53)
[2022-07-14 06:40] LABS: Bedside Glucose 143 mg/dL (74-106)
[2022-07-14] MEDS: Ipratropium/Albuterol Sulfate 3 ML AMPUL.NEB INHALATION ×2 (07:44→20:00)
[2022-07-14 07:45] VITALS: PULSE 64; RESP 18; O2SAT 98
[2022-07-14] MEDS: APIXABAN 5 MG TABLET PO ×2 (08:11→17:57)
[2022-07-14] MEDS: Potassium Chloride Oral Tablet 20 MEQ PO ×2 (08:11→17:49)
[2022-07-14] MEDS: metFORMIN HCl 500 MG Tablet PO (08:11)
[2022-07-14] MEDS: Midodrine HCl 5 MG Tablet 15 MG PO ×3 (08:11→17:52)
[2022-07-14 08:12] VITALS: BP 130/61; PULSE 64
[2022-07-14] MEDS: Metoprolol Tartrate 25 MG Tablet 6.25 MG PO ×2 (08:12→17:50)
[2022-07-14] MEDS: Voriconazole 200 MG Tablet PO ×2 (08:12→17:52)
[2022-07-14] MEDS: Senna/Docusate Sodium 1 Tablet PO (08:12)
--- NOTE | 2022-07-14 14:47 | WOUNDNOTE ---
wound photo: bilateral buttocks
[2022-07-14 14:54] VITALS: BP 117/61; PULSE 95; RESP 18; TEMP 36.3; O2SAT 91
[2022-07-14 17:50] VITALS: BP 117/61; PULSE 95
[2022-07-14 20:01] VITALS: PULSE 68; RESP 18; O2SAT 97
--- NOTE | 2022-07-14 20:18 | PN.TCU_ITS ---
Subjective Subjective Resident seen, examined for regulatory visit. She is doing well, she has no new problems, concerns, issues, complaints. Objective Data Objective Data Vital Signs: Vital Signs Temp Pulse Resp BP Pulse Ox O2 Del Method O2 Flow Rate 97.4 F L 68 18 117/61 97 Nasal Cannula 2.5 07/14/22 14:54 07/14/22 20:01 07/14/22 20:01 07/14/22 17:50 07/14/22 20:01 07/14/22 20:01 07/14/22 20:01 Oxygen Flow Rate (L/min) 2.5 Oxygen Delivery Method Nasal Cannula Weight: 59.194 kg Body Mass Index (BMI) 22.3 Intake & Output: Intake and Output for Last 24 Hours 07/12/22 07/13/22 07/14/22 23:59 23:59 23:59 Intake Total 720 / 720 720 / 720 960 / 960 Output Total 1300 / 1300 600 / 600 850 / 850 Balance -580 / -580 120 / 120 110 / 110 Medical Nutrition Assessment Dietitian: Malnutrition Criteria Met Start: 06/25/22 14:48 Freq: Status: Active Protocol: Document 07/10/22 16:22 AG (Rec: 07/10/22 16:22 [id number]) Nutrition Malnutrition Evidence of Malnutrition Exists Yes Malnutrition (severe): Acute Illness/Injury Evidenced By Suboptimal Energy Intake ( Severe),Weight Loss (Severe) Intake Problem Increased Nutrient Needs (specify) Etiology (protein) related to skin status Signs/Symptoms as evidenced by shearing savana buttocks Status Active Problem Inadequate Oral Intake Etiology related to decreased appetite Signs/Symptoms as evidenced by estimated PO intake meeting ~50-75% of estimated energy needs Status Active Problem Clinical Problem Acute Disease or Injury Related Malnutrition Etiology severe, acute malnutrition related to decreased appetite, inadequate energy intake Signs/Symptoms as evidenced by estimated PO intake meeting ~50-75% of estimated energy needs; unintentional wt loss of 3.1kg /5% x 1 week; BMI 19.8 Status Active Problem Recommendation Dietitian Recommendations/Changes Will continue liberalized regular diet w/ 1 salt packet at meals d/t signs and symptoms of malnutrition. Will continue to provide chocolate magic cup w/ lunch and dinner Continue appetite stimulant. Lab / Micro Data Result Diagrams: 07/10/22 05:16 07/10/22 05:16 Labs: Laboratory Results - last 24 hr 07/14/22 06:12: POC Glucose 143 H Micro: Microbiology 07/03/22 Unknown Nasal Secretion SARS-CoV-2 Antigen (Rapid) - Final 06/25/22 18:25 Urine Catheter - [place] Urine Culture - Final Klebsiella pneumoniae sp pneum 06/25/22 06:40 Nasal Secretion SARS-CoV-2 Antigen (Rapid) - Final Physical Exam Const alert General Appearance: cooperative HEENT normocephalic Eyes PERRL and EOMs intact bilaterally Neck supple, no JVD and no carotid bruits Resp normal respiratory effort, normal air movement and clear to auscultation bilaterally Cardio regular rate and regular rhythm GI normal to inspection, nondistended, normoactive bowel sounds, non-tender and non-distended Extremity normal capillary refill General Extremity: Negative for edema Skin no rashes or lesions noted General Skin Exam: no breakdown Psych affect normal Appearance: appropriate Assessment & Plan Assessment/Plan (1) Debility: (2) Encephalopathy: (3) Sepsis: (4) Pneumonia: (5) Hypotension: (6) Urinary retention: (7) Hemorrhagic shock: (8) Upper gastrointestinal bleed: (9) Atrial fibrillation with rapid ventricular response: (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 * Debility - PT/OT. * Pain - Tylenol 1000mg q6h prn pain, Tramadol 50mg q6h prn. * Bowel - Senna/colace 1 tablet bid, Dulcolax 10mg daily prn. * Adult immunization - Administer pneumonia vaccine, covid19 vaccine, flu vaccine as appropriate. * DVT prophylaxis - Not necessary, already on Eliquis. * Osteoporosis - Alendronate 70mg qweek. * Atrial fibrillation - Metoprolol 6.25mg bid, Digoxin 125mcg daily, Eliquis 5mg bid. * Hyperlipidemia - Atorvastatin 20mg qhs. * Shortness of breath - Duoneb 3ml 4x/day. * Diabetes Mellitus II - Metformin 500mg daily. * Recurrent urinary tract infection - Methenamine 1gm qhs. * Orthostatic hypotension - Midodrine 15mg tidcm. * Tinea Corporis - Nystatin powder topical tid. * Nausea - Zofran odt 4mg tid prn. * Chronic gastritis - Pantoprazole 40mg bid, Sucralfate 1gm qachs, Calcium 500mg q6h prn. * Depression - Sertraline 25mg daily, stable chronic senior living use, GDR not recommended. * Dry nose - Sodium chloride 1 spray nasal bid. * Aspergillosis - Voriconazole 200mg bid thru 09/02/2022. * Right ear irritation - Bacitracin ointment topical bid. * Iron deficiency anemia - Ferrex 150mg daily. * Appetite loss - Mirtazapine 7.5mg qhs. * Hypokalemia - KCL ER 20meq bid. Capacity Capacity Assessment Tool Can the patient make a choice & communicate that choice?: Yes Can the patient understand benefits, risks and alternatives?: Yes Can the patient make a logical, rational choice?: Yes Is the choice the patient makes consistent w/ their values?: Yes Is there an impending, emergent risk to the patient?: No Does the patient have an Advance Directive?: No Is there a Surrogate Available?: Yes i.e. HCPOA: Yes i.e. close relative (spouse, child, parent, sibling)?: Yes
[2022-07-14] MEDS: Atorvastatin Calcium 20 MG Tablet PO (21:30)
[2022-07-14] MEDS: Mirtazapine 15 MG Tablet 7.5 MG PO (21:30)
[2022-07-14] MEDS: Methenamine Hippurate 1 GM Tablet PO (21:31)
[2022-07-15] VITALS (7 sets, daily range): BP systolic 116–123; BP diastolic 55–73; PULSE 73–98; RESP 18; TEMP 36.4; O2SAT 93–96
[2022-07-15] MEDS: Nystatin Powder 15gm Bottle 1 APPLIC TOPICAL ×3 (04:58→21:36)
[2022-07-15] MEDS: BACITRACIN 15 GM Tube 1 APPLIC TOPICAL ×2 (04:58→17:09)
[2022-07-15] MEDS: Pantoprazole Sodium 40 MG Tablet PO ×2 (04:59→17:08)
[2022-07-15] MEDS: Digoxin 125 MCG Tablet PO (04:59)
[2022-07-15] MEDS: Iron Polysaccharide Complex 150 MG CAPSULE PO (05:00)
[2022-07-15 06:40] LABS: Bedside Glucose 145 mg/dL (74-106)
[2022-07-15] MEDS: Ipratropium/Albuterol Sulfate 3 ML AMPUL.NEB INHALATION ×2 (07:04→19:55)
[2022-07-15] MEDS: Potassium Chloride Oral Tablet 20 MEQ PO ×2 (07:59→17:08)
[2022-07-15] MEDS: Senna/Docusate Sodium 1 Tablet PO ×2 (07:59→17:09)
[2022-07-15] MEDS: Metoprolol Tartrate 25 MG Tablet 6.25 MG PO ×2 (07:59→17:08)
[2022-07-15] MEDS: metFORMIN HCl 500 MG Tablet PO (07:59)
[2022-07-15] MEDS: APIXABAN 5 MG TABLET PO ×2 (07:59→17:08)
[2022-07-15] MEDS: Sucralfate 1 GM Tablet PO ×4 (07:59→21:35)
[2022-07-15] MEDS: Midodrine HCl 5 MG Tablet 15 MG PO ×3 (08:00→17:07)
[2022-07-15] MEDS: Voriconazole 200 MG Tablet PO ×2 (11:05→17:07)
[2022-07-15] MEDS: Methenamine Hippurate 1 GM Tablet PO (21:35)
[2022-07-15] MEDS: Mirtazapine 15 MG Tablet 7.5 MG PO (21:35)
[2022-07-15] MEDS: Atorvastatin Calcium 20 MG Tablet PO (21:35)
[2022-07-16] MEDS: Acetaminophen 500 MG Tablet 1000 MG PO ×2 (00:03→22:40)
[2022-07-16 05:45] VITALS: BP 121/73; PULSE 70
[2022-07-16] MEDS: Digoxin 125 MCG Tablet PO (05:45)
[2022-07-16] MEDS: Pantoprazole Sodium 40 MG Tablet PO ×2 (05:45→18:27)
[2022-07-16] MEDS: Iron Polysaccharide Complex 150 MG CAPSULE PO (05:45)
[2022-07-16] MEDS: Sucralfate 1 GM Tablet PO ×4 (05:46→22:34)
[2022-07-16] MEDS: Nystatin Powder 15gm Bottle 1 APPLIC TOPICAL ×3 (05:46→22:35)
[2022-07-16] MEDS: BACITRACIN 15 GM Tube 1 APPLIC TOPICAL ×2 (05:47→18:29)
[2022-07-16 06:36] LABS: Bedside Glucose 122 mg/dL (74-106)
[2022-07-16 07:05] VITALS: PULSE 77; RESP 20; O2SAT 95
[2022-07-16] MEDS: Ipratropium/Albuterol Sulfate 3 ML AMPUL.NEB INHALATION ×2 (07:15→19:17)
[2022-07-16] MEDS: APIXABAN 5 MG TABLET PO ×2 (08:19→18:24)
[2022-07-16] MEDS: Midodrine HCl 5 MG Tablet 15 MG PO ×3 (08:19→18:27)
[2022-07-16 08:20] VITALS: BP 121/73; PULSE 70
[2022-07-16] MEDS: Metoprolol Tartrate 25 MG Tablet 6.25 MG PO ×2 (08:20→18:25)
[2022-07-16] MEDS: metFORMIN HCl 500 MG Tablet PO (08:20)
[2022-07-16] MEDS: Potassium Chloride Oral Tablet 20 MEQ PO ×2 (08:20→18:25)
[2022-07-16] MEDS: Voriconazole 200 MG Tablet PO ×2 (08:21→18:28)
[2022-07-16] MEDS: Senna/Docusate Sodium 1 Tablet PO (08:21)
[2022-07-16 15:27] VITALS: BP 103/57; PULSE 102; RESP 17; TEMP 36.3; O2SAT 94
[2022-07-16 18:25] VITALS: BP 103/57; PULSE 102
[2022-07-16 19:17] VITALS: PULSE 69; RESP 18
[2022-07-16] MEDS: Atorvastatin Calcium 20 MG Tablet PO (22:34)
[2022-07-16] MEDS: Methenamine Hippurate 1 GM Tablet PO (22:35)
[2022-07-16] MEDS: Mirtazapine 15 MG Tablet 7.5 MG PO (22:35)
[2022-07-17] VITALS (9 sets, daily range): BP systolic 112–141; BP diastolic 54–66; PULSE 61–88; RESP 16–21; TEMP 36.3; O2SAT 95–96
[2022-07-17 05:35] LABS: Absolute Lymphocyte Count 2.18 X10^3/uL (0.83-4.51); Absolute Neutrophil Count 6.1 X10^3/uL (2.0-7.7); Basophil# 0.14 X10^3/uL; Basophil% 1.3 % (0-1); Eosinophil# 0.95 X10^3/uL; Eosinophils% 8.8 % (0-5); Hematocrit 31.1 % (37-47); Hemoglobin 10.1 g/dL (12.0-15.0); Lymphocyte # 2.18 X10^3/ul (0.83-4.51); Lymphocyte % 20.2 % (19-41); Mean Corp Hgb Conc 32.5 g/dL (32-36); Mean Corpuscular Hgb 29.2 pg (27.0-32.0); Mean Corpuscular Volume 89.9 fL (81-99); Mean Platelet Vol. 9.2 fl (6.2-12.0); Monocyte# 0.99 X10^3/uL; Monocyte% 9.2 % (0-10); NRBC Flagged by Analyzer 0 % (0-5); Neutrophil # 6.14 X10^3/uL (2.7-7.7); Neutrophil % 57.1 % (47-70); Platelet Count 529 K/mm3 (150-450); RBC Distribution Width SD 55.7 fl (35.1-43.9); Red Blood Count 3.46 M/mm3 (4.2-5.4); White Blood Count 10.8 K/mm3 (4.4-11.0)
[2022-07-17 06:01] LABS: Anion Gap 9 (5-15); BUN 11 mg/dL (7-18); BUN/Creat Ratio 20.7 RATIO (10-20); Calcium,Total 8.5 mg/dL (8.5-10.1); Chloride 101 mmol/L (98-107); Creatinine, Serum 0.53 mg/dL (0.55-1.02); EST Glomerular Filtration Rate 121 mL/min (>60); Est Glom Filt Rate - Afr Amer 146 mL/min (>60); Estimated Creatinine Clearance 49.44 ml/min; Glucose 125 mg/dL (74-106); Potassium 3.9 mmol/L (3.5-5.1); Sodium Level 136 mmol/L (136-145)
[2022-07-17] MEDS: BACITRACIN 15 GM Tube 1 APPLIC TOPICAL (06:16)
[2022-07-17] MEDS: Iron Polysaccharide Complex 150 MG CAPSULE PO (06:18)
[2022-07-17] MEDS: Pantoprazole Sodium 40 MG Tablet PO ×2 (06:18→18:04)
[2022-07-17] MEDS: Digoxin 125 MCG Tablet PO (06:18)
[2022-07-17] MEDS: Sucralfate 1 GM Tablet PO ×4 (06:18→21:46)
[2022-07-17] MEDS: Nystatin Powder 15gm Bottle 1 APPLIC TOPICAL ×3 (06:21→21:46)
[2022-07-17 06:30] LABS: Bedside Glucose 155 mg/dL (74-106)
[2022-07-17] MEDS: Ipratropium/Albuterol Sulfate 3 ML AMPUL.NEB INHALATION ×3 (06:50→20:31)
[2022-07-17] MEDS: Midodrine HCl 5 MG Tablet 15 MG PO ×3 (08:08→18:04)
[2022-07-17] MEDS: APIXABAN 5 MG TABLET PO ×2 (08:08→18:02)
[2022-07-17] MEDS: metFORMIN HCl 500 MG Tablet PO (08:09)
[2022-07-17] MEDS: Metoprolol Tartrate 25 MG Tablet 6.25 MG PO ×2 (08:09→18:03)
[2022-07-17] MEDS: Potassium Chloride Oral Tablet 20 MEQ PO ×2 (08:09→18:02)
[2022-07-17] MEDS: Senna/Docusate Sodium 1 Tablet PO ×2 (08:10→18:04)
[2022-07-17] MEDS: Voriconazole 200 MG Tablet PO ×2 (11:13→18:05)
[2022-07-17] MEDS: Mirtazapine 15 MG Tablet 7.5 MG PO (21:45)
[2022-07-17] MEDS: Atorvastatin Calcium 20 MG Tablet PO (21:46)
[2022-07-17] MEDS: Methenamine Hippurate 1 GM Tablet PO (21:46)
[2022-07-18] VITALS (8 sets, daily range): BP systolic 119–137; BP diastolic 64–68; PULSE 68–96; RESP 16–18; TEMP 36.6; O2SAT 95–96
[2022-07-18] MEDS: Acetaminophen 500 MG Tablet 1000 MG PO (00:13)
[2022-07-18] MEDS: Digoxin 125 MCG Tablet PO (06:26)
[2022-07-18] MEDS: Iron Polysaccharide Complex 150 MG CAPSULE PO (06:26)
[2022-07-18] MEDS: Sucralfate 1 GM Tablet PO ×4 (06:26→21:53)
[2022-07-18] MEDS: Pantoprazole Sodium 40 MG Tablet PO ×2 (06:26→17:14)
[2022-07-18] MEDS: Nystatin Powder 15gm Bottle 1 APPLIC TOPICAL ×2 (06:30→21:54)
[2022-07-18 06:41] LABS: Bedside Glucose 125 mg/dL (74-106)
[2022-07-18] MEDS: Midodrine HCl 5 MG Tablet 15 MG PO ×3 (08:43→17:12)
[2022-07-18] MEDS: metFORMIN HCl 500 MG Tablet PO (08:43)
[2022-07-18] MEDS: APIXABAN 5 MG TABLET PO ×2 (08:43→17:12)
[2022-07-18] MEDS: Metoprolol Tartrate 25 MG Tablet 6.25 MG PO ×2 (08:44→17:13)
[2022-07-18] MEDS: Potassium Chloride Oral Tablet 20 MEQ PO ×2 (08:44→17:12)
[2022-07-18] MEDS: Senna/Docusate Sodium 1 Tablet PO (08:45)
[2022-07-18] MEDS: Voriconazole 200 MG Tablet PO ×2 (11:08→17:15)
[2022-07-18] MEDS: Ipratropium/Albuterol Sulfate 3 ML AMPUL.NEB INHALATION (19:18)
[2022-07-18] MEDS: Atorvastatin Calcium 20 MG Tablet PO (21:53)
[2022-07-18] MEDS: Mirtazapine 15 MG Tablet 7.5 MG PO (21:54)
[2022-07-18] MEDS: Methenamine Hippurate 1 GM Tablet PO (21:55)
[2022-07-19] VITALS (7 sets, daily range): BP systolic 111–133; BP diastolic 55–65; PULSE 68–89; RESP 16–17; TEMP 36.7; O2SAT 92–96
[2022-07-19] MEDS: Acetaminophen 500 MG Tablet 1000 MG PO (00:19)
[2022-07-19] MEDS: Iron Polysaccharide Complex 150 MG CAPSULE PO (05:15)
[2022-07-19] MEDS: Pantoprazole Sodium 40 MG Tablet PO ×2 (05:15→18:07)
[2022-07-19] MEDS: Sucralfate 1 GM Tablet PO ×4 (05:15→21:00)
[2022-07-19] MEDS: Nystatin Powder 15gm Bottle 1 APPLIC TOPICAL ×3 (05:15→20:59)
[2022-07-19] MEDS: Digoxin 125 MCG Tablet PO (05:16)
[2022-07-19 06:26] LABS: Bedside Glucose 133 mg/dL (74-106)
[2022-07-19] MEDS: Ipratropium/Albuterol Sulfate 3 ML AMPUL.NEB INHALATION ×2 (07:15→19:03)
[2022-07-19] MEDS: Metoprolol Tartrate 25 MG Tablet 6.25 MG PO ×2 (08:21→18:07)
[2022-07-19] MEDS: Potassium Chloride Oral Tablet 20 MEQ PO ×2 (08:25→18:06)
[2022-07-19] MEDS: Midodrine HCl 5 MG Tablet 15 MG PO ×3 (08:25→18:07)
[2022-07-19] MEDS: metFORMIN HCl 500 MG Tablet PO (08:26)
[2022-07-19] MEDS: Senna/Docusate Sodium 1 Tablet PO ×2 (08:26→16:30)
[2022-07-19] MEDS: APIXABAN 5 MG TABLET PO ×2 (08:26→16:30)
[2022-07-19] MEDS: Voriconazole 200 MG Tablet PO ×2 (09:24→18:07)
[2022-07-19] MEDS: Atorvastatin Calcium 20 MG Tablet PO (21:00)
[2022-07-19] MEDS: Mirtazapine 15 MG Tablet 7.5 MG PO (21:00)
[2022-07-19] MEDS: Methenamine Hippurate 1 GM Tablet PO (21:00)
[2022-07-20] VITALS (8 sets, daily range): BP systolic 105–133; BP diastolic 60–62; PULSE 65–78; RESP 15–18; TEMP 36.4; O2SAT 94–95
[2022-07-20] MEDS: Acetaminophen 500 MG Tablet 1000 MG PO (00:07)
[2022-07-20] MEDS: MENTHOL 226.8 GM JAR 1 APPLIC TOPICAL (00:08)
[2022-07-20] MEDS: Digoxin 125 MCG Tablet PO (06:00)
[2022-07-20] MEDS: Pantoprazole Sodium 40 MG Tablet PO ×2 (06:00→16:56)
[2022-07-20] MEDS: Sucralfate 1 GM Tablet PO ×4 (06:00→21:33)
[2022-07-20] MEDS: Iron Polysaccharide Complex 150 MG CAPSULE PO (06:00)
[2022-07-20] MEDS: Nystatin Powder 15gm Bottle 1 APPLIC TOPICAL ×3 (06:02→21:26)
[2022-07-20 06:26] LABS: Bedside Glucose 131 mg/dL (74-106)
[2022-07-20] MEDS: Ipratropium/Albuterol Sulfate 3 ML AMPUL.NEB INHALATION ×3 (07:45→19:10)
[2022-07-20] MEDS: Potassium Chloride Oral Tablet 20 MEQ PO ×2 (08:30→16:57)
[2022-07-20] MEDS: Senna/Docusate Sodium 1 Tablet PO ×2 (08:30→16:56)
[2022-07-20] MEDS: metFORMIN HCl 500 MG Tablet PO (08:30)
[2022-07-20] MEDS: Midodrine HCl 5 MG Tablet 15 MG PO ×3 (08:30→16:56)
[2022-07-20] MEDS: APIXABAN 5 MG TABLET PO ×2 (08:30→16:57)
[2022-07-20] MEDS: Metoprolol Tartrate 25 MG Tablet 6.25 MG PO ×2 (08:31→16:55)
[2022-07-20] MEDS: Voriconazole 200 MG Tablet PO ×2 (09:15→16:57)
[2022-07-20] MEDS: Mirtazapine 15 MG Tablet 7.5 MG PO (21:32)
[2022-07-20] MEDS: Methenamine Hippurate 1 GM Tablet PO (21:33)
[2022-07-20] MEDS: Atorvastatin Calcium 20 MG Tablet PO (21:33)
[2022-07-21] VITALS (7 sets, daily range): BP systolic 126–137; BP diastolic 57–65; PULSE 67–80; RESP 16–18; TEMP 36.7; O2SAT 94–97
[2022-07-21] MEDS: Acetaminophen 500 MG Tablet 1000 MG PO (00:09)
[2022-07-21] MEDS: MENTHOL 226.8 GM JAR 1 APPLIC TOPICAL (00:13)
[2022-07-21] MEDS: Iron Polysaccharide Complex 150 MG CAPSULE PO (06:21)
[2022-07-21] MEDS: Digoxin 125 MCG Tablet PO (06:22)
[2022-07-21] MEDS: Alendronate Sodium 70 MG Tablet PO (06:22)
[2022-07-21] MEDS: Sucralfate 1 GM Tablet PO ×4 (06:22→20:14)
[2022-07-21] MEDS: Pantoprazole Sodium 40 MG Tablet PO ×2 (06:22→18:00)
[2022-07-21] MEDS: Nystatin Powder 15gm Bottle 1 APPLIC TOPICAL ×2 (06:25→15:53)
[2022-07-21 06:26] LABS: Bedside Glucose 137 mg/dL (74-106)
[2022-07-21] MEDS: Ipratropium/Albuterol Sulfate 3 ML AMPUL.NEB INHALATION ×3 (06:46→19:42)
[2022-07-21] MEDS: Voriconazole 200 MG Tablet PO ×2 (08:39→18:01)
[2022-07-21] MEDS: Senna/Docusate Sodium 1 Tablet PO (08:39)
[2022-07-21] MEDS: Metoprolol Tartrate 25 MG Tablet 6.25 MG PO ×2 (08:39→18:01)
[2022-07-21] MEDS: Potassium Chloride Oral Tablet 20 MEQ PO ×2 (08:40→18:01)
[2022-07-21] MEDS: APIXABAN 5 MG TABLET PO ×2 (08:40→18:01)
[2022-07-21] MEDS: Midodrine HCl 5 MG Tablet 15 MG PO ×3 (08:40→18:02)
[2022-07-21] MEDS: metFORMIN HCl 500 MG Tablet PO (08:40)
--- NOTE | 2022-07-21 11:24 | NURSING ---
oxygen turned down to 0.5 liters sat 95%. will continue to monitor.
--- NOTE | 2022-07-21 14:03 | WOUNDNOTE ---
Pt currently out of room for therapy. Mepilex dressing to buttocks was changed last pm. will monitor.
[2022-07-21] MEDS: Atorvastatin Calcium 20 MG Tablet PO (20:15)
[2022-07-21] MEDS: Mirtazapine 15 MG Tablet 7.5 MG PO (20:15)
[2022-07-21] MEDS: Methenamine Hippurate 1 GM Tablet PO (20:15)
[2022-07-22] VITALS (9 sets, daily range): BP systolic 121–138; BP diastolic 61–77; PULSE 70–84; RESP 15–21; TEMP 36.4; O2SAT 94–95
[2022-07-22] MEDS: Acetaminophen 500 MG Tablet 1000 MG PO ×2 (03:29→23:33)
[2022-07-22] MEDS: MENTHOL 226.8 GM JAR 1 APPLIC TOPICAL ×2 (03:30→23:36)
[2022-07-22] MEDS: Sucralfate 1 GM Tablet PO ×4 (05:55→21:16)
[2022-07-22] MEDS: Iron Polysaccharide Complex 150 MG CAPSULE PO (05:55)
[2022-07-22] MEDS: Digoxin 125 MCG Tablet PO (05:56)
[2022-07-22] MEDS: Pantoprazole Sodium 40 MG Tablet PO ×2 (05:56→17:04)
[2022-07-22 06:25] LABS: Bedside Glucose 147 mg/dL (74-106)
[2022-07-22] MEDS: Ipratropium/Albuterol Sulfate 3 ML AMPUL.NEB INHALATION ×2 (07:10→18:55)
[2022-07-22] MEDS: metFORMIN HCl 500 MG Tablet PO (08:19)
[2022-07-22] MEDS: Metoprolol Tartrate 25 MG Tablet 6.25 MG PO ×2 (08:19→17:05)
[2022-07-22] MEDS: APIXABAN 5 MG TABLET PO ×2 (08:19→17:04)
[2022-07-22] MEDS: Midodrine HCl 5 MG Tablet 15 MG PO ×3 (08:19→17:04)
[2022-07-22] MEDS: Senna/Docusate Sodium 1 Tablet PO (08:19)
[2022-07-22] MEDS: Potassium Chloride Oral Tablet 20 MEQ PO ×2 (08:19→17:05)
[2022-07-22] MEDS: Voriconazole 200 MG Tablet PO ×2 (10:42→17:06)
--- NOTE | 2022-07-22 15:18 | WOUNDNOTE ---
wound photo: bilateral buttocks
[2022-07-22] MEDS: Nystatin Powder 15gm Bottle 1 APPLIC TOPICAL ×2 (17:04→21:20)
[2022-07-22] MEDS: Atorvastatin Calcium 20 MG Tablet PO (21:17)
[2022-07-22] MEDS: Methenamine Hippurate 1 GM Tablet PO (21:17)
[2022-07-22] MEDS: Mirtazapine 15 MG Tablet 7.5 MG PO (21:18)
[2022-07-23] MEDS: Iron Polysaccharide Complex 150 MG CAPSULE PO (05:41)
[2022-07-23] MEDS: Sucralfate 1 GM Tablet PO ×4 (05:42→21:42)
[2022-07-23 05:45] VITALS: BP 115/61; PULSE 78
[2022-07-23] MEDS: Pantoprazole Sodium 40 MG Tablet PO ×2 (05:45→17:30)
[2022-07-23] MEDS: Digoxin 125 MCG Tablet PO (05:45)
[2022-07-23] MEDS: Nystatin Powder 15gm Bottle 1 APPLIC TOPICAL ×3 (05:48→21:43)
[2022-07-23 06:45] LABS: Bedside Glucose 140 mg/dL (74-106)
[2022-07-23 06:50] VITALS: PULSE 81; RESP 16; O2SAT 95
[2022-07-23] MEDS: Ipratropium/Albuterol Sulfate 3 ML AMPUL.NEB INHALATION ×2 (06:50→20:00)
[2022-07-23 08:09] VITALS: BP 116/64; PULSE 87
[2022-07-23] MEDS: Midodrine HCl 5 MG Tablet 15 MG PO ×3 (08:09→17:29)
[2022-07-23] MEDS: Metoprolol Tartrate 25 MG Tablet 6.25 MG PO ×2 (08:09→17:30)
[2022-07-23] MEDS: Senna/Docusate Sodium 1 Tablet PO ×2 (08:09→18:02)
[2022-07-23] MEDS: APIXABAN 5 MG TABLET PO ×2 (08:09→17:30)
[2022-07-23] MEDS: metFORMIN HCl 500 MG Tablet PO (08:09)
[2022-07-23] MEDS: Potassium Chloride Oral Tablet 20 MEQ PO ×2 (08:09→17:30)
[2022-07-23] MEDS: Voriconazole 200 MG Tablet PO ×2 (10:55→17:30)
[2022-07-23 12:04] VITALS: BP 133/68; PULSE 79; RESP 18; TEMP 36.4; O2SAT 95
[2022-07-23 17:30] VITALS: BP 137/71; PULSE 81
[2022-07-23 20:00] VITALS: PULSE 78; RESP 16; O2SAT 95
[2022-07-23] MEDS: Mirtazapine 15 MG Tablet 7.5 MG PO (21:42)
[2022-07-23] MEDS: Methenamine Hippurate 1 GM Tablet PO (21:42)
[2022-07-23] MEDS: Atorvastatin Calcium 20 MG Tablet PO (21:42)
[2022-07-24] VITALS (8 sets, daily range): BP systolic 123–141; BP diastolic 57–64; PULSE 74–89; RESP 16–18; TEMP 36.2; O2SAT 92–96
[2022-07-24] MEDS: Acetaminophen 500 MG Tablet 1000 MG PO ×2 (00:06→23:34)
[2022-07-24 05:29] LABS: Absolute Lymphocyte Count 1.94 X10^3/uL (0.83-4.51); Basophil# 0.08 X10^3/uL; Basophil% 0.8 % (0-1); Eosinophil# 0.85 X10^3/uL; Eosinophils% 8.5 % (0-5); Hematocrit 32.6 % (37-47); Hemoglobin 10.3 g/dL (12.0-15.0); Lymphocyte # 1.94 X10^3/ul (0.83-4.51); Lymphocyte % 19.3 % (19-41); Mean Corp Hgb Conc 31.6 g/dL (32-36); Mean Corpuscular Hgb 28.7 pg (27.0-32.0); Mean Corpuscular Volume 90.8 fL (81-99); Monocyte# 1.03 X10^3/uL; Monocyte% 10.3 % (0-10); NRBC Flagged by Analyzer 0 % (0-5); Neutrophil # 5.95 X10^3/uL (2.7-7.7); Neutrophil % 59.2 % (47-70); Platelet Count 438 K/mm3 (150-450); RBC Distribution Width CV 16.7 % (11.6-14.6); Red Blood Count 3.59 M/mm3 (4.2-5.4)
[2022-07-24] MEDS: Pantoprazole Sodium 40 MG Tablet PO ×2 (05:52→17:34)
[2022-07-24] MEDS: Nystatin Powder 15gm Bottle 1 APPLIC TOPICAL ×3 (05:52→20:56)
[2022-07-24] MEDS: Iron Polysaccharide Complex 150 MG CAPSULE PO (05:53)
[2022-07-24] MEDS: Digoxin 125 MCG Tablet PO (05:53)
[2022-07-24] MEDS: Sucralfate 1 GM Tablet PO ×4 (05:53→20:56)
[2022-07-24 06:03] LABS: Anion Gap 8 (5-15); BUN 12 mg/dL (7-18); BUN/Creat Ratio 20.7 RATIO (10-20); Calcium,Total 8.6 mg/dL (8.5-10.1); Chloride 103 mmol/L (98-107); Creatinine, Serum 0.58 mg/dL (0.55-1.02); EST Glomerular Filtration Rate 109 mL/min (>60); Est Glom Filt Rate - Afr Amer 132 mL/min (>60); Estimated Creatinine Clearance 49.29 ml/min; Glucose 144 mg/dL (74-106); Potassium 3.9 mmol/L (3.5-5.1); Sodium Level 136 mmol/L (136-145)
[2022-07-24 06:36] LABS: Bedside Glucose 156 mg/dL (74-106)
[2022-07-24] MEDS: Ipratropium/Albuterol Sulfate 3 ML AMPUL.NEB INHALATION ×2 (07:00→13:45)
[2022-07-24] MEDS: Midodrine HCl 5 MG Tablet 10 MG PO ×3 (07:37→17:33)
[2022-07-24] MEDS: metFORMIN HCl 500 MG Tablet PO (07:37)
[2022-07-24] MEDS: APIXABAN 5 MG TABLET PO ×2 (07:37→17:32)
[2022-07-24] MEDS: Metoprolol Tartrate 25 MG Tablet 6.25 MG PO ×2 (07:39→17:33)
[2022-07-24] MEDS: Potassium Chloride Oral Tablet 20 MEQ PO ×2 (07:39→17:32)
[2022-07-24] MEDS: Senna/Docusate Sodium 1 Tablet PO ×2 (07:40→17:34)
[2022-07-24] MEDS: Voriconazole 200 MG Tablet PO ×2 (10:19→17:35)
[2022-07-24] MEDS: Methenamine Hippurate 1 GM Tablet PO (20:49)
[2022-07-24] MEDS: Atorvastatin Calcium 20 MG Tablet PO (20:50)
[2022-07-24] MEDS: Mirtazapine 15 MG Tablet 7.5 MG PO (20:55)
[2022-07-24] MEDS: MENTHOL 226.8 GM JAR 1 APPLIC TOPICAL (23:35)
[2022-07-25] VITALS (8 sets, daily range): BP systolic 107–126; BP diastolic 57–72; PULSE 77–116; RESP 16–21; TEMP 36.2; O2SAT 93–95
[2022-07-25] MEDS: Pantoprazole Sodium 40 MG Tablet PO ×2 (05:29→17:48)
[2022-07-25] MEDS: Iron Polysaccharide Complex 150 MG CAPSULE PO (05:30)
[2022-07-25] MEDS: Digoxin 125 MCG Tablet PO (05:32)
[2022-07-25] MEDS: Nystatin Powder 15gm Bottle 1 APPLIC TOPICAL ×3 (05:34→20:47)
[2022-07-25 06:40] LABS: Bedside Glucose 153 mg/dL (74-106)
[2022-07-25] MEDS: Ipratropium/Albuterol Sulfate 3 ML AMPUL.NEB INHALATION ×2 (07:50→19:16)
[2022-07-25] MEDS: Midodrine HCl 5 MG Tablet 10 MG PO ×3 (08:16→17:47)
[2022-07-25] MEDS: Potassium Chloride Oral Tablet 20 MEQ PO ×2 (08:17→17:44)
[2022-07-25] MEDS: metFORMIN HCl 500 MG Tablet PO (08:17)
[2022-07-25] MEDS: Metoprolol Tartrate 25 MG Tablet 6.25 MG PO ×2 (08:17→17:45)
[2022-07-25] MEDS: APIXABAN 5 MG TABLET PO ×2 (08:17→17:44)
[2022-07-25] MEDS: Senna/Docusate Sodium 1 Tablet PO ×2 (08:18→17:47)
[2022-07-25] MEDS: Sucralfate 1 GM Tablet PO ×3 (11:01→20:46)
[2022-07-25] MEDS: Voriconazole 200 MG Tablet PO ×2 (11:01→17:48)
[2022-07-25] MEDS: Mirtazapine 15 MG Tablet 7.5 MG PO (20:45)
[2022-07-25] MEDS: Atorvastatin Calcium 20 MG Tablet PO (20:46)
[2022-07-25] MEDS: Methenamine Hippurate 1 GM Tablet PO (20:46)
[2022-07-25] MEDS: Acetaminophen 500 MG Tablet 1000 MG PO (23:42)
[2022-07-25] MEDS: MENTHOL 226.8 GM JAR 1 APPLIC TOPICAL (23:43)
[2022-07-26] VITALS (7 sets, daily range): BP systolic 115–122; BP diastolic 51–70; PULSE 75–84; RESP 16–18; TEMP 36.4; O2SAT 92–97
[2022-07-26] MEDS: Nystatin Powder 15gm Bottle 1 APPLIC TOPICAL ×3 (06:12→21:35)
[2022-07-26] MEDS: Iron Polysaccharide Complex 150 MG CAPSULE PO (06:12)
[2022-07-26] MEDS: Digoxin 125 MCG Tablet PO (06:12)
[2022-07-26] MEDS: Pantoprazole Sodium 40 MG Tablet PO ×2 (06:12→18:31)
[2022-07-26] MEDS: Sucralfate 1 GM Tablet PO ×4 (06:12→21:34)
[2022-07-26 06:31] LABS: Bedside Glucose 143 mg/dL (74-106)
[2022-07-26] MEDS: Ipratropium/Albuterol Sulfate 3 ML AMPUL.NEB INHALATION ×2 (07:20→19:31)
[2022-07-26] MEDS: Midodrine HCl 5 MG Tablet 10 MG PO ×3 (07:55→18:30)
[2022-07-26] MEDS: Metoprolol Tartrate 25 MG Tablet 6.25 MG PO ×2 (07:56→18:29)
[2022-07-26] MEDS: Potassium Chloride Oral Tablet 20 MEQ PO ×2 (07:57→17:00)
[2022-07-26] MEDS: metFORMIN HCl 500 MG Tablet PO (07:59)
[2022-07-26] MEDS: APIXABAN 5 MG TABLET PO ×2 (08:00→17:00)
[2022-07-26] MEDS: Senna/Docusate Sodium 1 Tablet PO ×2 (08:00→17:00)
[2022-07-26] MEDS: Voriconazole 200 MG Tablet PO ×2 (10:18→18:31)
[2022-07-26] MEDS: Methenamine Hippurate 1 GM Tablet PO (21:35)
[2022-07-26] MEDS: Mirtazapine 15 MG Tablet 7.5 MG PO (21:35)
[2022-07-26] MEDS: Atorvastatin Calcium 20 MG Tablet PO (21:35)
[2022-07-27] VITALS (8 sets, daily range): BP systolic 101–123; BP diastolic 52–78; PULSE 75–104; RESP 16–18; TEMP 36.1–36.6; O2SAT 95–96
[2022-07-27] MEDS: Acetaminophen 500 MG Tablet 1000 MG PO (00:05)
[2022-07-27] MEDS: Pantoprazole Sodium 40 MG Tablet PO ×2 (05:44→17:15)
[2022-07-27] MEDS: Iron Polysaccharide Complex 150 MG CAPSULE PO (05:44)
[2022-07-27] MEDS: Nystatin Powder 15gm Bottle 1 APPLIC TOPICAL ×3 (05:44→21:07)
[2022-07-27] MEDS: Digoxin 125 MCG Tablet PO (05:45)
[2022-07-27 06:41] LABS: Bedside Glucose 140 mg/dL (74-106)
[2022-07-27] MEDS: Ipratropium/Albuterol Sulfate 3 ML AMPUL.NEB INHALATION ×2 (07:38→19:44)
[2022-07-27] MEDS: Sucralfate 1 GM Tablet PO ×4 (09:19→21:08)
[2022-07-27] MEDS: Midodrine HCl 5 MG Tablet 10 MG PO ×3 (09:20→17:15)
[2022-07-27] MEDS: APIXABAN 5 MG TABLET PO ×2 (09:21→17:16)
[2022-07-27] MEDS: metFORMIN HCl 500 MG Tablet PO (09:21)
[2022-07-27] MEDS: Potassium Chloride Oral Tablet 20 MEQ PO ×2 (09:22→17:15)
[2022-07-27] MEDS: Senna/Docusate Sodium 1 Tablet PO (09:22)
[2022-07-27] MEDS: Metoprolol Tartrate 25 MG Tablet 6.25 MG PO ×2 (09:22→17:18)
[2022-07-27] MEDS: Voriconazole 200 MG Tablet PO ×2 (09:22→17:15)
[2022-07-27] MEDS: Mirtazapine 15 MG Tablet 7.5 MG PO (21:07)
[2022-07-27] MEDS: Atorvastatin Calcium 20 MG Tablet PO (21:10)
[2022-07-27] MEDS: Methenamine Hippurate 1 GM Tablet PO (21:10)
[2022-07-28] VITALS (8 sets, daily range): BP systolic 104–127; BP diastolic 59–67; PULSE 76–87; RESP 16–18; TEMP 36.1–37.2; O2SAT 92–99
[2022-07-28] MEDS: Pantoprazole Sodium 40 MG Tablet PO ×2 (05:54→17:06)
[2022-07-28] MEDS: Digoxin 125 MCG Tablet PO (05:54)
[2022-07-28] MEDS: Nystatin Powder 15gm Bottle 1 APPLIC TOPICAL ×3 (05:55→20:48)
[2022-07-28] MEDS: Alendronate Sodium 70 MG Tablet PO (05:55)
[2022-07-28] MEDS: Iron Polysaccharide Complex 150 MG CAPSULE PO (05:55)
[2022-07-28 06:35] LABS: Bedside Glucose 166 mg/dL (74-106)
[2022-07-28] MEDS: Ipratropium/Albuterol Sulfate 3 ML AMPUL.NEB INHALATION ×3 (07:09→19:32)
[2022-07-28] MEDS: Sucralfate 1 GM Tablet PO ×4 (07:39→20:46)
[2022-07-28] MEDS: Voriconazole 200 MG Tablet PO ×2 (08:46→17:06)
[2022-07-28] MEDS: Metoprolol Tartrate 25 MG Tablet 6.25 MG PO ×2 (08:47→17:06)
[2022-07-28] MEDS: Potassium Chloride Oral Tablet 20 MEQ PO ×2 (08:47→17:06)
[2022-07-28] MEDS: Midodrine HCl 5 MG Tablet 10 MG PO ×3 (08:47→17:05)
[2022-07-28] MEDS: metFORMIN HCl 500 MG Tablet PO (08:47)
[2022-07-28] MEDS: APIXABAN 5 MG TABLET PO ×2 (08:47→17:06)
[2022-07-28] MEDS: Senna/Docusate Sodium 1 Tablet PO (08:47)
[2022-07-28] MEDS: Mirtazapine 15 MG Tablet 7.5 MG PO (20:46)
[2022-07-28] MEDS: Methenamine Hippurate 1 GM Tablet PO (20:47)
[2022-07-28] MEDS: Atorvastatin Calcium 20 MG Tablet PO (20:47)
[2022-07-29] VITALS (8 sets, daily range): BP systolic 113–133; BP diastolic 57–70; PULSE 69–100; RESP 17–18; TEMP 36.7; O2SAT 93–95
[2022-07-29] MEDS: Acetaminophen 500 MG Tablet 1000 MG PO ×2 (00:16→23:38)
[2022-07-29] MEDS: MENTHOL 226.8 GM JAR 1 APPLIC TOPICAL (00:17)
[2022-07-29 06:36] LABS: Bedside Glucose 170 mg/dL (74-106)
[2022-07-29] MEDS: Iron Polysaccharide Complex 150 MG CAPSULE PO (06:42)
[2022-07-29] MEDS: Nystatin Powder 15gm Bottle 1 APPLIC TOPICAL ×3 (06:42→22:20)
[2022-07-29] MEDS: Digoxin 125 MCG Tablet PO (06:42)
[2022-07-29] MEDS: Sucralfate 1 GM Tablet PO ×4 (06:42→22:20)
[2022-07-29] MEDS: Pantoprazole Sodium 40 MG Tablet PO ×2 (06:42→16:58)
[2022-07-29] MEDS: Ipratropium/Albuterol Sulfate 3 ML AMPUL.NEB INHALATION ×3 (06:55→18:36)
[2022-07-29] MEDS: Midodrine HCl 5 MG Tablet 10 MG PO ×3 (08:12→16:57)
[2022-07-29] MEDS: Potassium Chloride Oral Tablet 20 MEQ PO ×2 (08:12→16:57)
[2022-07-29] MEDS: Senna/Docusate Sodium 1 Tablet PO ×2 (08:13→16:57)
[2022-07-29] MEDS: APIXABAN 5 MG TABLET PO ×2 (08:13→16:57)
[2022-07-29] MEDS: Metoprolol Tartrate 25 MG Tablet 6.25 MG PO ×2 (08:13→16:57)
[2022-07-29] MEDS: metFORMIN HCl 500 MG Tablet PO (08:13)
[2022-07-29] MEDS: Voriconazole 200 MG Tablet PO ×2 (10:14→16:58)
--- NOTE | 2022-07-29 14:45 | CASEMGMT ---
Addendum entered by Etelvina Longoria 07/29/22 15:01: Spoke with pt about DC plans. Pt very excited, appreciative and agreeable to services. Original Note: Social Work Spoke with pt's dtrNoni, to discuss discharge plans. Pt has made great progress and reaching goals to DC home at [facility] before the end of the month. PT would like to allow pt to be adlib in the next several days before DC home to ensure safety and comfort. Dtr agrees. Dtr to discuss with sister on date for coordinate work schedules. SW order FWW and HHC PT/OT/SN at DC. Dtr expressed great appreciation for all of IDT in assisting pt with improvements. SW to continue to follow. Etelvina Longoria, MAYNOR MAW
--- NOTE | 2022-07-29 14:59 | WOUNDNOTE ---
wound photo: bilateral buttocks
[2022-07-29] MEDS: Mirtazapine 15 MG Tablet 7.5 MG PO (22:20)
[2022-07-29] MEDS: Methenamine Hippurate 1 GM Tablet PO (22:20)
[2022-07-29] MEDS: Atorvastatin Calcium 20 MG Tablet PO (22:20)
[2022-07-30] VITALS (7 sets, daily range): BP systolic 116–152; BP diastolic 59–70; PULSE 72–91; RESP 16–18; TEMP 36.3; O2SAT 96–97
[2022-07-30] MEDS: Sucralfate 1 GM Tablet PO ×4 (06:09→20:40)
[2022-07-30] MEDS: Pantoprazole Sodium 40 MG Tablet PO ×2 (06:09→17:30)
[2022-07-30] MEDS: Digoxin 125 MCG Tablet PO (06:09)
[2022-07-30] MEDS: Nystatin Powder 15gm Bottle 1 APPLIC TOPICAL ×3 (06:11→20:41)
[2022-07-30] MEDS: Iron Polysaccharide Complex 150 MG CAPSULE PO (06:11)
[2022-07-30 06:40] LABS: Bedside Glucose 159 mg/dL (74-106)
[2022-07-30] MEDS: Ipratropium/Albuterol Sulfate 3 ML AMPUL.NEB INHALATION ×3 (07:55→19:37)
[2022-07-30] MEDS: Midodrine HCl 5 MG Tablet 10 MG PO ×3 (08:23→17:30)
[2022-07-30] MEDS: Voriconazole 200 MG Tablet PO ×2 (08:23→17:31)
[2022-07-30] MEDS: Senna/Docusate Sodium 1 Tablet PO (08:23)
[2022-07-30] MEDS: metFORMIN HCl 500 MG Tablet PO (08:23)
[2022-07-30] MEDS: Potassium Chloride Oral Tablet 20 MEQ PO ×2 (08:23→17:31)
[2022-07-30] MEDS: Metoprolol Tartrate 25 MG Tablet 6.25 MG PO ×2 (08:24→17:31)
[2022-07-30] MEDS: APIXABAN 5 MG TABLET PO ×2 (08:24→17:31)
--- NOTE | 2022-07-30 11:43 | CASEMGMT ---
Addendum entered by Etelvina Longoria 07/31/22 16:29: Spoke further with IDT - diehl being removed today for voiding trials. Overnight O2 trending pulse ox ordered for nighttime O2 needs. Communication order entered for family training on wound care. Provided pt with life alert resources. Dtrs still deciding on HHC agency. DRAMATIC TEACHER recommending [facility] and SW added as well, based on some observations throughout stay. Wanting to ensure transition home is successful and home is in good condition for pt. Addendum entered by Etelvina Longoria 07/30/22 17:28: Per , pt not needing aerosols or O2 at DC, but diehl to remain in. SW will have HHC of pt's choosing provide supplies at [place]. Original Note: Social Work Received call from dtr requesting DC 08/06. IDT agreeable. SW faxed referral to [facility] for FWW. SW sent electronic list of skilled HHC agencies to both daughters that include quality and resource use data and consistent with the patient?s preferred geographic region, medical needs, and insurance network via [employer] Link. Dtr's to transport. SW to verify if pt will need O2, aerosols and diehl supplies at DC. 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
--- NOTE | 2022-07-30 18:43 | NURSING ---
Verbal order per Dr Wagner to removed diehl 07/31 in the morning and do voiding trials. Orders placed.
--- NOTE | 2022-07-30 19:39 | DS.PCM_ITS ---
Providers Date of Admission: 06/18/22 Primary Care Physician: Dr. Misael Molina MD Consultations 06/18/22 16:34 Consult: Onc/Wound/automotive airconditioning mechanic Routine Comment: Reason for Consult:: B/L buttock wound 06/26/22 11:19 Consult: Urology Routine Consulting Provider: Alberta Browne Reason for Consult: Hematuria and recurrent uti's EMERGENT Consult: No MD Notified: Yes Date Notified: 06/26/22 Time Notified: 11:20 Method of Notification: Verbal Reason For Visit: HEMORRHAGIC SHOCK, UPPER GI BLEED,PNEUMONIA Diagnosis Discharge Diagnosis (1) Debility: Status: Acute Code(s): R53.81 - Other malaise (2) Encephalopathy: Status: Acute Code(s): G93.40 - Encephalopathy, unspecified (3) Sepsis: Status: Acute Code(s): A41.9 - Sepsis, unspecified organism (4) Pneumonia: Status: Acute Code(s): J18.9 - Pneumonia, unspecified organism (5) Hypotension: Status: Acute Code(s): I95.9 - Hypotension, unspecified (6) Urinary retention: Status: Acute Code(s): R33.9 - Retention of urine, unspecified (7) Hemorrhagic shock: Status: Resolved Code(s): R57.8 - Other shock (8) Upper gastrointestinal bleed: Status: Acute Code(s): K92.2 - Gastrointestinal hemorrhage, unspecified (9) Atrial fibrillation with rapid ventricular response: Status: Acute Code(s): I48.91 - Unspecified atrial fibrillation (10) Aspergillosis, with pneumonia: Status: Acute Code(s): B44.9 - Aspergillosis, unspecified (11) Osteoporosis: Status: Acute Code(s): M81.0 - Age-related osteoporosis without current pathological fracture (12) Hyperlipidemia: Status: Acute Code(s): E78.5 - Hyperlipidemia, unspecified (13) Diabetes mellitus: Status: Acute Code(s): E11.9 - Type 2 diabetes mellitus without complications (14) Recurrent urinary tract infection: Status: Acute Code(s): N39.0 - Urinary tract infection, site not specified (15) Chronic gastritis: Status: Chronic Code(s): K29.50 - Unspecified chronic gastritis without bleeding Plan 72 year old female with below past medical history hospitalized for encephalopathy, sepsis secondary to aspergillus pneumonia, hemorrhagic shock secondary to upper gastrointestinal bleed, complicated by atrial fibrillation with rapid ventricular response, urinary retention, admitted to TCU with debility, here for rehabilitation, strengthening, prior to discharge home with . * Debility - PT/OT. * Pain - Tylenol 1000mg q6h prn pain, Tramadol 50mg q6h prn. * Bowel - Senna/colace 1 tablet bid, Dulcolax 10mg daily prn. * Adult immunization - Administer pneumonia vaccine, covid19 vaccine, flu vaccine as appropriate. * DVT prophylaxis - Not necessary, already on Eliquis. * Osteoporosis - Alendronate 70mg qweek. * Atrial fibrillation - Metoprolol 6.25mg bid, Digoxin 125mcg daily, Eliquis 5mg bid. * Hyperlipidemia - Atorvastatin 20mg qhs. * Shortness of breath - Duoneb 3ml 4x/day. * Diabetes Mellitus II - Metformin 500mg daily. * Recurrent urinary tract infection - Methenamine 1gm qhs. * Orthostatic hypotension - Midodrine 15mg tidcm. * Tinea Corporis - Nystatin powder topical tid. * Nausea - Zofran odt 4mg tid prn. * Chronic gastritis - Pantoprazole 40mg bid, Sucralfate 1gm qachs, Calcium 500mg q6h prn. * Depression - Sertraline 25mg daily, stable chronic longterm use, GDR not recommended. * Dry nose - Sodium chloride 1 spray nasal bid. * Aspergillosis - Voriconazole 200mg bid thru 09/02/2022. * Right ear irritation - Bacitracin ointment topical bid. * Iron deficiency anemia - Ferrex 150mg daily. * Appetite loss - Mirtazapine 7.5mg qhs. * Hypokalemia - KCL ER 20meq bid. Medications at Discharge Home Medications alendronate 70 mg tablet 70 mg PO MO Osteoporosis 05/18/22 atorvastatin 20 mg tablet 20 mg PO QHS Cholestrol 05/18/22 metformin 500 mg tablet 500 mg PO DAILY BP 05/18/22 methenamine hippurate 1 gram tablet 1 g PO QHS Decrease UTI 05/18/22 acetaminophen 500 mg tablet 1,000 mg PO Q8H PRN PRN Pain 1-10 Or Fever #0 tabs 06/18/22 apixaban 5 mg tablet (Eliquis) 5 mg PO BID Blood thinner 30 days #60 tabs 07/30/22 digoxin 125 mcg (0.125 mg) tablet 125 mcg PO DAILY 30 days #30 tabs 07/30/22 metoprolol tartrate 25 mg tablet 6.25 mg PO BIDCM 30 days #15 tabs 07/30/22 midodrine 5 mg tablet 10 mg PO TIDCM 30 days #180 tabs 07/30/22 mirtazapine 15 mg tablet 7.5 mg PO QHS 30 days #15 tabs 07/30/22 pantoprazole 40 mg tablet,delayed release 40 mg PO BID GERD 30 days #60 tabs 07/30/22 polysaccharide iron complex 150 mg iron capsule (Ferrex) 150 mg PO DAILY 30 days #30 caps 07/30/22 potassium chloride 20 mEq tablet,extended release(part/cryst) (Klor-Con M) 20 meq PO BIDCM 30 days #60 tabs 07/30/22 sucralfate 1 gram tablet 1 g PO 1HR_ACHS Stomach 30 days #120 tabs 07/30/22 voriconazole 200 mg tablet 200 mg PO BID Antinfungal 27 days #54 tabs 07/30/22 Hospital Course Operations None Procedures None Summary of Care Provided Minutes Spent on Discharge: 35 Hospital Course: 72 year old female with below past medical history hospitalized for encephalopathy, sepsis secondary to aspergillus pneumonia, hemorrhagic shock secondary to upper gastrointestinal bleed, complicated by atrial fibrillation with rapid ventricular response, urinary retention, admitted to TCU with debility, here for rehabilitation, strengthening, prior to discharge home with . Discharge home with 08/06/2022, Home Health Care PT/OT/SN, Front Wheeled Walker. Physical Exam Const alert General Appearance: cooperative HEENT normocephalic Eyes PERRL and EOMs intact bilaterally Neck supple, no JVD and no carotid bruits Resp normal respiratory effort, normal air movement and clear to auscultation bilaterally Cardio regular rate and regular rhythm GI normal to inspection, nondistended, normoactive bowel sounds, non-tender and non-distended Extremity normal capillary refill General Extremity: Negative for edema Skin no rashes or lesions noted General Skin Exam: no breakdown Psych affect normal Appearance: appropriate Medical Records Data Medical Nutrition Assessment Dietitian: Malnutrition Criteria Met Start: 06/25/22 14:48 Freq: Status: Active Protocol: Document 07/30/22 17:30 [facility] (Rec: 07/30/22 17:30 [facility] [id number]) Nutrition Malnutrition Evidence of Malnutrition Exists Yes Malnutrition (moderate): Acute Illness/Injury Malnutrition (severe): Acute Illness/Injury Evidenced By Suboptimal Energy Intake ( Moderate),Weight Loss (Severe) Intake Problem Increased Nutrient Needs (specify) Etiology (protein) related to skin status Signs/Symptoms as evidenced by shearing savana buttocks Status Active Problem Inadequate Oral Intake Status Inactive Problem Clinical Problem Acute Disease or Injury Related Malnutrition Etiology mod, acute malnutrition related to decreased appetite, inadequate energy intake Signs/Symptoms as evidenced by estimated PO intake meeting ~50-75% of estimated energy needs; unintentional wt loss of 10.4% x 1 month; BMI 20.3 Status Active Problem Recommendation Dietitian Recommendations/Changes Will continue liberalized regular diet w/ 1 salt packet at meals d/t signs and symptoms of malnutrition. Will continue to provide chocolate magic cup w/ lunch and dinner Continue appetite stimulant. Weight / BMI Weight Weight: 60.419 kg Body Mass Index (BMI) 22.3 ABG / Lab / Microbiology Data Result Diagrams: 07/24/22 05:23 07/24/22 05:23 Laboratory: Laboratory Results - last 24 hr 07/30/22 06:21: POC Glucose 159 H Microbiology: Microbiology 07/03/22 Unknown Nasal Secretion SARS-CoV-2 Antigen (Rapid) - Final 06/25/22 18:25 Urine Catheter - [place] Urine Culture - Final Klebsiella pneumoniae sp pneum 06/25/22 06:40 Nasal Secretion SARS-CoV-2 Antigen (Rapid) - Final D/C Instructions Discharge Diet: No restrictions Discharge Activity: Return to Normal Activity, May Shower and Use Walker May resume sexual activity in: No Restrictions Weight Bearing Status: Weight bearing as tolerated Call your doctor if you observe: Fever of 101 or Higher, Inability to urinate, Inability to have a bowel movement, Shortness of breath, Dizziness, Fainting spells, Swelling in the ankles, Chest pain and Uncontrolled pain Additional Instructions: Discharge home with 08/06/2022, Home Health Care PT/OT/SN, Front Wheeled Walker. Please Follow Up With: Alberta Browne MD When: 2 weeks. Meaningful Use Info Meaningful Use Diagnoses (Choose all that apply): None applicable Discharge Plan Admission Admit Date/Time: 06/18/22 13:53 Primary Reason for Your Visit: Debility. Attending Provider: Art Wagner Chi Primary Care Provider: Misael Molina Consulting Providers: Alberta Browne Instructions Additional Instructions / Restrictions: Discharge home with 08/06/2022, Home Health Care PT/OT/SN, Front Wheeled Walker. Discharge Orders/Prescriptions Prescriptions: New polysaccharide iron complex [Ferrex 150] 150 mg iron Capsule 150 mg PO DAILY 30 Days Qty: 30 0RF midodrine 5 mg Tablet 10 mg PO TIDCM 30 Days Qty: 180 0RF digoxin 125 mcg (0.125 mg) Tablet 125 mcg PO DAILY 30 Days Qty: 30 0RF metoprolol tartrate 25 mg Tablet 6.25 mg PO BIDCM 30 Days Qty: 15 0RF potassium chloride [Klor-Con M20] 20 mEq Tablet,Er Particles/Crystals 20 meq PO BIDCM 30 Days Qty: 60 0RF mirtazapine 15 mg Tablet 7.5 mg PO QHS 30 Days Qty: 15 0RF Continued metformin 500 mg tablet 500 mg PO DAILY Label Comments: TAKE 1 TABLET BY MOUTH ONCE DAILY atorvastatin 20 mg tablet 20 mg PO QHS Label Comments: TAKE 1 TABLET BY MOUTH ONCE DAILY alendronate 70 mg tablet 70 mg PO MO Label Comments: TAKE 1 TABLET BY MOUTH ONCE A WEEK. TAKE BEFORE FOOD OR DRINK AND SIT UPRIGHT FOR 30 MINUTES AFTER TAKING methenamine hippurate 1 gram tablet 1 g PO QHS Label Comments: TAKE 1 TABLET BY MOUTH EVERY DAY AT BEDTIME acetaminophen 500 mg Tablet 1,000 mg PO Q8H PRN PRN (Reason: Pain 1-10 Or Fever) Qty: 0 0RF sucralfate 1 gram tablet 1 g PO 1HR_ACHS 30 Days Qty: 120 0RF pantoprazole 40 mg tablet,delayed release (DR/EC) 40 mg PO BID 30 Days Qty: 60 0RF voriconazole 200 mg tablet 200 mg PO BID 27 Days Qty: 54 0RF Rx Instructions: stop date of 08/31/2022 Eliquis 5 mg tablet 5 mg PO BID 30 Days Qty: 60 0RF Discontinued ondansetron HCl 4 mg tablet 4 mg PO TID PRN PRN (Reason: Nausea) omeprazole 20 mg Capsule,Delayed Release(Dr/Ec) 40 mg PO DAILY ipratropium-albuterol 0.5 mg-3 mg(2.5 mg base)/3 mL solution for nebulization 3 ml inhalation 4X/DAY midodrine 5 mg tablet 15 mg PO TIDCM tamsulosin 0.4 mg capsule 0.4 mg PO BID digoxin 125 mcg (0.125 mg) tablet 125 mcg PO DAILY nystatin [Nyamyc] 100,000 unit/gram powder 1 applic topical TID Protocol: *Topical Application Instructions APPLICATION INSTRUCTIONS: groin sertraline 50 mg tablet 25 mg PO DAILY Deep Sea Nasal 0.65 % aerosol,spray 1 spray NASAL BID metoprolol tartrate 25 mg tablet 12.5 mg PO BID Mag 64 64 mg tablet,delayed release (DR/EC) 128 mg PO BID Og (with collagen) 7-7-1.5 gram powder in packet 1 packet PO BIDCM Referrals / Follow Up: Misael Molina MD [Primary Care Provider] - Disposition Disposition (needs filled in before D/C Order can be placed): Home Health Service
[2022-07-30] MEDS: Methenamine Hippurate 1 GM Tablet PO (20:41)
[2022-07-30] MEDS: Mirtazapine 15 MG Tablet 7.5 MG PO (20:41)
[2022-07-30] MEDS: Atorvastatin Calcium 20 MG Tablet PO (20:41)
[2022-07-31] VITALS (7 sets, daily range): BP systolic 110–127; BP diastolic 56–66; PULSE 77–91; RESP 16–24; TEMP 36.1; O2SAT 90–93
[2022-07-31 05:43] LABS: Absolute Lymphocyte Count 1.82 X10^3/uL (0.83-4.51); Absolute Neutrophil Count 7.3 X10^3/uL (2.0-7.7); Basophil# 0.07 X10^3/uL; Basophil% 0.6 % (0-1); Eosinophil# 0.93 X10^3/uL; Eosinophils% 8.2 % (0-5); Hematocrit 32.1 % (37-47); Lymphocyte # 1.82 X10^3/ul (0.83-4.51); Lymphocyte % 16.1 % (19-41); Mean Corp Hgb Conc 31.2 g/dL (32-36); Mean Corpuscular Volume 89.9 fL (81-99); Mean Platelet Vol. 9.9 fl (6.2-12.0); Monocyte# 1.03 X10^3/uL; Monocyte% 9.1 % (0-10); NRBC Flagged by Analyzer 0 % (0-5); Neutrophil # 7.33 X10^3/uL (2.7-7.7); Neutrophil % 64.9 % (47-70); Platelet Count 447 K/mm3 (150-450); RBC Distribution Width CV 16.6 % (11.6-14.6); RBC Distribution Width SD 54.6 fl (35.1-43.9); Red Blood Count 3.57 M/mm3 (4.2-5.4); White Blood Count 11.3 K/mm3 (4.4-11.0)
[2022-07-31 06:18] LABS: Anion Gap 9 (5-15); BUN 11 mg/dL (7-18); BUN/Creat Ratio 18.2 RATIO (10-20); Calcium,Total 8.7 mg/dL (8.5-10.1); Chloride 102 mmol/L (98-107); EST Glomerular Filtration Rate 104 mL/min (>60); Est Glom Filt Rate - Afr Amer 126 mL/min (>60); Estimated Creatinine Clearance 49.93 ml/min; Glucose 160 mg/dL (74-106); Potassium 3.9 mmol/L (3.5-5.1); Sodium Level 135 mmol/L (136-145)
[2022-07-31 06:30] LABS: Bedside Glucose 156 mg/dL (74-106)
[2022-07-31] MEDS: Nystatin Powder 15gm Bottle 1 APPLIC TOPICAL ×3 (06:43→21:29)
[2022-07-31] MEDS: Sucralfate 1 GM Tablet PO ×4 (06:43→21:29)
[2022-07-31] MEDS: Pantoprazole Sodium 40 MG Tablet PO ×2 (06:43→17:19)
[2022-07-31] MEDS: Iron Polysaccharide Complex 150 MG CAPSULE PO (06:43)
[2022-07-31] MEDS: Digoxin 125 MCG Tablet PO (06:43)
[2022-07-31] MEDS: Ipratropium/Albuterol Sulfate 3 ML AMPUL.NEB INHALATION ×2 (07:24→13:33)
[2022-07-31] MEDS: Metoprolol Tartrate 25 MG Tablet 6.25 MG PO ×2 (08:31→17:19)
[2022-07-31] MEDS: metFORMIN HCl 500 MG Tablet PO (08:31)
[2022-07-31] MEDS: Senna/Docusate Sodium 1 Tablet PO (08:31)
[2022-07-31] MEDS: Potassium Chloride Oral Tablet 20 MEQ PO ×2 (08:32→17:20)
[2022-07-31] MEDS: APIXABAN 5 MG TABLET PO ×2 (08:32→17:19)
[2022-07-31] MEDS: Midodrine HCl 5 MG Tablet 10 MG PO ×3 (08:33→17:19)
[2022-07-31] MEDS: Voriconazole 200 MG Tablet PO ×2 (11:23→17:19)
--- NOTE | 2022-07-31 11:35 | NURSING ---
[place] Cath Removed Per order Voiding trials started and bladder scan Q8HR. Pt tolerated well and [place] cath intact.
[2022-07-31] MEDS: Methenamine Hippurate 1 GM Tablet PO (21:29)
[2022-07-31] MEDS: Atorvastatin Calcium 20 MG Tablet PO (21:29)
[2022-07-31] MEDS: Mirtazapine 15 MG Tablet 7.5 MG PO (21:30)
[2022-07-31] MEDS: Acetaminophen 500 MG Tablet 1000 MG PO (23:21)
[2022-08-01] VITALS (7 sets, daily range): BP systolic 123–135; BP diastolic 63–68; PULSE 59–92; RESP 14–18; TEMP 36.6; O2SAT 93–94
--- NOTE | 2022-08-01 04:10 | NURSING ---
bladder scanned at 8 pm for no post void residual. Patient up to bathroom as needed.
[2022-08-01] MEDS: Iron Polysaccharide Complex 150 MG CAPSULE PO (05:18)
[2022-08-01] MEDS: Digoxin 125 MCG Tablet PO (05:18)
[2022-08-01] MEDS: Nystatin Powder 15gm Bottle 1 APPLIC TOPICAL ×3 (05:19→20:49)
[2022-08-01] MEDS: Pantoprazole Sodium 40 MG Tablet PO ×2 (05:19→17:07)
[2022-08-01] MEDS: Sucralfate 1 GM Tablet PO ×4 (05:19→20:47)
[2022-08-01 06:35] LABS: Bedside Glucose 172 mg/dL (74-106)
[2022-08-01] MEDS: Metoprolol Tartrate 25 MG Tablet 6.25 MG PO ×2 (08:10→17:07)
[2022-08-01] MEDS: metFORMIN HCl 500 MG Tablet PO (08:10)
[2022-08-01] MEDS: Potassium Chloride Oral Tablet 20 MEQ PO ×2 (08:11→17:07)
[2022-08-01] MEDS: Midodrine HCl 5 MG Tablet 10 MG PO ×3 (08:11→17:07)
[2022-08-01] MEDS: Senna/Docusate Sodium 1 Tablet PO (08:11)
[2022-08-01] MEDS: APIXABAN 5 MG TABLET PO ×2 (08:11→17:07)
[2022-08-01] MEDS: Voriconazole 200 MG Tablet PO ×2 (10:55→17:08)
--- NOTE | 2022-08-01 15:48 | CASEMGMT ---
Social Work Followed up with dtr on HHC preference [facility] Referral via phone and [facility]. MAYNOR HanleyW
[2022-08-01] MEDS: Ipratropium/Albuterol Sulfate 3 ML AMPUL.NEB INHALATION (18:45)
[2022-08-01] MEDS: Methenamine Hippurate 1 GM Tablet PO (20:47)
[2022-08-01] MEDS: Atorvastatin Calcium 20 MG Tablet PO (20:47)
[2022-08-01] MEDS: Mirtazapine 15 MG Tablet 7.5 MG PO (20:47)
--- NOTE | 2022-08-01 22:28 | NURSING ---
Respiratory notified of patient's order for trending overnight pulse ox.
[2022-08-01] MEDS: Acetaminophen 500 MG Tablet 1000 MG PO (23:43)
[2022-08-01] MEDS: MENTHOL 226.8 GM JAR 1 APPLIC TOPICAL (23:46)
[2022-08-02] VITALS (7 sets, daily range): BP systolic 121–124; BP diastolic 58–68; PULSE 69–89; RESP 14–18; TEMP 37.1; O2SAT 92–96
[2022-08-02] MEDS: Digoxin 125 MCG Tablet PO (06:11)
[2022-08-02] MEDS: Pantoprazole Sodium 40 MG Tablet PO ×2 (06:12→17:27)
[2022-08-02] MEDS: Sucralfate 1 GM Tablet PO ×4 (06:13→20:29)
[2022-08-02] MEDS: Iron Polysaccharide Complex 150 MG CAPSULE PO (06:13)
[2022-08-02] MEDS: Nystatin Powder 15gm Bottle 1 APPLIC TOPICAL (06:14)
[2022-08-02 07:00] LABS: Bedside Glucose 162 mg/dL (74-106)
[2022-08-02] MEDS: Ipratropium/Albuterol Sulfate 3 ML AMPUL.NEB INHALATION ×2 (07:48→18:55)
[2022-08-02] MEDS: Potassium Chloride Oral Tablet 20 MEQ PO ×2 (08:11→17:28)
[2022-08-02] MEDS: metFORMIN HCl 500 MG Tablet PO (08:11)
[2022-08-02] MEDS: Midodrine HCl 5 MG Tablet 10 MG PO ×3 (08:11→17:27)
[2022-08-02] MEDS: APIXABAN 5 MG TABLET PO ×2 (08:11→17:26)
[2022-08-02] MEDS: Senna/Docusate Sodium 1 Tablet PO ×2 (08:12→17:27)
[2022-08-02] MEDS: Voriconazole 200 MG Tablet PO ×2 (08:12→17:26)
[2022-08-02] MEDS: Metoprolol Tartrate 25 MG Tablet 6.25 MG PO ×2 (08:16→17:27)
[2022-08-02] MEDS: Atorvastatin Calcium 20 MG Tablet PO (20:30)
[2022-08-02] MEDS: Mirtazapine 15 MG Tablet 7.5 MG PO (20:30)
[2022-08-02] MEDS: Methenamine Hippurate 1 GM Tablet PO (20:30)
[2022-08-02] MEDS: Acetaminophen 500 MG Tablet 1000 MG PO (23:29)
[2022-08-03] VITALS (7 sets, daily range): BP systolic 114–123; BP diastolic 58–70; PULSE 72–88; RESP 16–18; TEMP 36.7; O2SAT 92–94
[2022-08-03] MEDS: Sucralfate 1 GM Tablet PO ×4 (06:27→21:31)
[2022-08-03] MEDS: Digoxin 125 MCG Tablet PO (06:27)
[2022-08-03] MEDS: Pantoprazole Sodium 40 MG Tablet PO ×2 (06:27→17:39)
[2022-08-03] MEDS: Iron Polysaccharide Complex 150 MG CAPSULE PO (06:27)
[2022-08-03 06:56] LABS: Bedside Glucose 144 mg/dL (74-106)
[2022-08-03] MEDS: Ipratropium/Albuterol Sulfate 3 ML AMPUL.NEB INHALATION ×3 (07:21→19:02)
[2022-08-03] MEDS: Midodrine HCl 5 MG Tablet 10 MG PO ×3 (07:55→17:39)
[2022-08-03] MEDS: APIXABAN 5 MG TABLET PO ×2 (07:55→17:38)
[2022-08-03] MEDS: Potassium Chloride Oral Tablet 20 MEQ PO ×2 (07:56→17:39)
[2022-08-03] MEDS: metFORMIN HCl 500 MG Tablet PO (07:56)
[2022-08-03] MEDS: Voriconazole 200 MG Tablet PO ×2 (07:57→17:40)
[2022-08-03] MEDS: Senna/Docusate Sodium 1 Tablet PO (07:57)
[2022-08-03] MEDS: Metoprolol Tartrate 25 MG Tablet 6.25 MG PO ×2 (08:55→17:40)
[2022-08-03] MEDS: Mirtazapine 15 MG Tablet 7.5 MG PO (21:31)
[2022-08-03] MEDS: Atorvastatin Calcium 20 MG Tablet PO (21:31)
[2022-08-03] MEDS: Methenamine Hippurate 1 GM Tablet PO (21:32)
[2022-08-04] VITALS (7 sets, daily range): BP systolic 114–133; BP diastolic 60–73; PULSE 70–96; RESP 16–18; TEMP 36.1; O2SAT 90–93
[2022-08-04] MEDS: Pantoprazole Sodium 40 MG Tablet PO ×2 (06:23→17:48)
[2022-08-04] MEDS: Iron Polysaccharide Complex 150 MG CAPSULE PO (06:23)
[2022-08-04] MEDS: Sucralfate 1 GM Tablet PO ×4 (06:23→20:58)
[2022-08-04] MEDS: Alendronate Sodium 70 MG Tablet PO (06:23)
[2022-08-04] MEDS: Digoxin 125 MCG Tablet PO (06:23)
[2022-08-04 06:50] LABS: Bedside Glucose 138 mg/dL (74-106)
[2022-08-04] MEDS: Ipratropium/Albuterol Sulfate 3 ML AMPUL.NEB INHALATION ×2 (07:02→19:13)
[2022-08-04] MEDS: Midodrine HCl 5 MG Tablet 10 MG PO ×3 (07:51→17:47)
[2022-08-04] MEDS: APIXABAN 5 MG TABLET PO ×2 (07:52→17:45)
[2022-08-04] MEDS: Potassium Chloride Oral Tablet 20 MEQ PO ×2 (07:52→17:45)
[2022-08-04] MEDS: metFORMIN HCl 500 MG Tablet PO (07:52)
[2022-08-04] MEDS: Metoprolol Tartrate 25 MG Tablet 6.25 MG PO ×2 (07:53→17:50)
[2022-08-04] MEDS: Senna/Docusate Sodium 1 Tablet PO ×2 (07:53→17:47)
[2022-08-04] MEDS: Voriconazole 200 MG Tablet PO ×2 (11:28→17:48)
[2022-08-04] MEDS: Nystatin Powder 15gm Bottle 1 APPLIC TOPICAL (20:57)
[2022-08-04] MEDS: Atorvastatin Calcium 20 MG Tablet PO (20:57)
[2022-08-04] MEDS: Methenamine Hippurate 1 GM Tablet PO (20:58)
[2022-08-04] MEDS: Mirtazapine 15 MG Tablet 7.5 MG PO (20:58)
[2022-08-04] MEDS: Acetaminophen 500 MG Tablet 1000 MG PO (23:18)
[2022-08-04] MEDS: MENTHOL 226.8 GM JAR 1 APPLIC TOPICAL (23:19)
[2022-08-05] MEDS: Pantoprazole Sodium 40 MG Tablet PO ×2 (06:13→17:20)
[2022-08-05] MEDS: Iron Polysaccharide Complex 150 MG CAPSULE PO (06:13)
[2022-08-05 06:14] VITALS: BP 118/68; PULSE 85
[2022-08-05] MEDS: Digoxin 125 MCG Tablet PO (06:14)
[2022-08-05] MEDS: Sucralfate 1 GM Tablet PO ×4 (06:14→20:24)
[2022-08-05 06:40] LABS: Bedside Glucose 132 mg/dL (74-106)
[2022-08-05 08:24] VITALS: BP 125/68; PULSE 84
[2022-08-05] MEDS: metFORMIN HCl 500 MG Tablet PO (08:24)
[2022-08-05] MEDS: Metoprolol Tartrate 25 MG Tablet 6.25 MG PO ×2 (08:24→17:20)
[2022-08-05] MEDS: APIXABAN 5 MG TABLET PO ×2 (08:25→17:22)
[2022-08-05] MEDS: Midodrine HCl 5 MG Tablet 10 MG PO ×3 (08:25→17:20)
[2022-08-05] MEDS: Potassium Chloride Oral Tablet 20 MEQ PO ×2 (08:25→17:22)
[2022-08-05] MEDS: Senna/Docusate Sodium 1 Tablet PO ×2 (08:25→17:20)
--- NOTE | 2022-08-05 11:19 | CASEMGMT ---
Social Work Pt still using O2 at night at times. Order faxed to [facility] and notified liaison. MAYNOR HanleyW
[2022-08-05] MEDS: Voriconazole 200 MG Tablet PO ×2 (12:49→17:20)
[2022-08-05 12:50] VITALS: BP 133/70; PULSE 68; RESP 18; TEMP 36.8; O2SAT 96
[2022-08-05 13:38] VITALS: PULSE 75; RESP 18; O2SAT 95
[2022-08-05] MEDS: Ipratropium/Albuterol Sulfate 3 ML AMPUL.NEB INHALATION ×2 (13:38→19:54)
--- NOTE | 2022-08-05 14:13 | CASEMGMT ---
Social Work BIMS and PHQ-9 completed for MDS assessment. Etelvina Longoria, MANUAL TRAINING TEACHER FURNITURE MOVER
[2022-08-05 17:20] VITALS: BP 113/77; PULSE 99
[2022-08-05 19:54] VITALS: PULSE 89; RESP 16
[2022-08-05] MEDS: Atorvastatin Calcium 20 MG Tablet PO (20:24)
[2022-08-05] MEDS: Methenamine Hippurate 1 GM Tablet PO (20:24)
[2022-08-05] MEDS: Mirtazapine 15 MG Tablet 7.5 MG PO (20:24)
[2022-08-05 20:41] LABS: Mucous, Urine 0 SEEN /hpf (<or=2+)
[2022-08-05 20:48] LABS: Color, Urine Yellow (Yellow); Glucose, Dipstick Normal (Normal); Ketone-Dipstick Negative (Negative); Leukocyte Esterase-Dipstick 500 /ul (Negative); Nitrite-Dipstick Negative (Negative); Occult Blood-Urine 25 /ul (Negative); Protein-Dipstick 15 mg/dl (Negative); Urine Bilirubin Dipstick Negative (Negative); Urine Clarity Sl. Cloudy (Clear); Urine Urobilinogen Normal (Normal)
[2022-08-05 21:35] LABS: Bacteria 4+ /hpf (None Seen); Red Blood Cells-Urine 5-10 SEEN /hpf (0-5); Squamous Epithelial Cells - UA 0-5 SEEN /hpf (5-10); White Blood Cells >100 SEEN /hpf (0-5)
[2022-08-06] MEDS: Acetaminophen 500 MG Tablet 1000 MG PO (00:46)
[2022-08-06] MEDS: Iron Polysaccharide Complex 150 MG CAPSULE PO (06:09)
[2022-08-06] MEDS: Pantoprazole Sodium 40 MG Tablet PO (06:09)
[2022-08-06] MEDS: Sucralfate 1 GM Tablet PO ×2 (06:09→11:19)
[2022-08-06 06:10] VITALS: BP 108/64; PULSE 80
[2022-08-06] MEDS: Digoxin 125 MCG Tablet PO (06:10)
[2022-08-06 06:31] LABS: Bedside Glucose 135 mg/dL (74-106)
[2022-08-06 07:35] VITALS: PULSE 88; RESP 18; O2SAT 93
[2022-08-06] MEDS: Ipratropium/Albuterol Sulfate 3 ML AMPUL.NEB INHALATION (07:35)
[2022-08-06 08:04] VITALS: BP 122/71; PULSE 91
[2022-08-06] MEDS: Senna/Docusate Sodium 1 Tablet PO (08:04)
[2022-08-06] MEDS: Metoprolol Tartrate 25 MG Tablet 6.25 MG PO (08:04)
[2022-08-06] MEDS: Potassium Chloride Oral Tablet 20 MEQ PO (08:05)
[2022-08-06] MEDS: metFORMIN HCl 500 MG Tablet PO (08:05)
[2022-08-06] MEDS: Midodrine HCl 5 MG Tablet 10 MG PO ×2 (08:05→12:37)
[2022-08-06] MEDS: APIXABAN 5 MG TABLET PO (08:06)
[2022-08-06] MEDS: Voriconazole 200 MG Tablet PO (09:35)
[2022-08-06 10:00] VITALS: PULSE 103; O2SAT 95
[2022-08-06 12:30] VITALS: BP 124/72; PULSE 80; RESP 18; TEMP 36.4; O2SAT 96
--- NOTE | 2022-08-06 12:50 | PCM.PN.ID ---
Physical Exam Narrative Feeling well, no fever, no cough or dyspnea, no n/v/d. Const alert and no apparent distress Resp normal air movement and clear to auscultation bilaterally Cardio regular rate and regular rhythm GI soft to palpation, non-tender and non-distended Extremity General Extremity: Negative for edema Skin no rashes or lesions noted ID ID: Route of nutrition/ use of supplements: [] Nutritional Intake: [] IV Site: [] [place] Catheter: [] Assessment & Plan Assessment/Plan (1) Aspergillosis, with pneumonia: PLAN: Has completed over 8 weeks of vori. Aspergillus Ab neg. Ok to stop antifungal now. Will follow as needed, d/w nursing.
== END 2022-08-06 13:00 | disposition home health service (06) | DRG 194 ==
PROVIDERS: Urology; Admitting Provider Family Medicine Geriatric Medicine; PCP Family Medicine; Visit Provider Family Medicine Geriatric Medicine
DX: J18.9 Pneumonia, unspecified organism (principal); B44.9 Aspergillosis, unspecified; N39.0 Urinary tract infection, site not specified; E11.9 Type 2 diabetes mellitus without complications; D50.9 Iron deficiency anemia, unspecified; B35.4 Tinea corporis; E78.00 Pure hypercholesterolemia, unspecified; I48.0 Paroxysmal atrial fibrillation; F17.210 Nicotine dependence, cigarettes, uncomplicated; I95.1 Orthostatic hypotension; K29.50 Unspecified chronic gastritis without bleeding; E87.6 Hypokalemia; K21.9 Gastro-esophageal reflux disease without esophagitis; Z79.84 Long term (current) use of oral hypoglycemic drugs; Z79.83 Long term (current) use of bisphosphonates; Z86.16 Personal history of COVID-19; Z79.01 Long term (current) use of anticoagulants; Z79.899 Other long term (current) drug therapy; R33.9 Retention of urine, unspecified; F32.A Depression, unspecified
CPT/HCPCS: 36415; 36430; 76856; 80048; 81001; 82962; 85014; 85018; 85025; 86644; 86850; 86900; 86901; 86920; 86922; 87077; 87086; 87088; 87186; 87811; 88108; 88313; 93005; 94640; 94668; 97110; 97116; 97162; 97166; 97530; 97535; 97802; 97803; 99406; J7030; P9040; A4216

== ENCOUNTER → 2022-06-26 | Outpatient (CLI) | payer MEDICARE, OTHER, SELFPAY ==
--- NOTE | 2022-06-26 13:48 | CT_ITS ---
STUDY: CT ABDOMEN AND PELVIS WITH AND WITHOUT CONTRAST REASON FOR EXAM: Female, 72 years old. Gross hematuria. RADIATION DOSAGE (If Supplied By Facility): CTDIvol = ( 13.45 ) mGy, DLP = ( 2365.32 ) mGycm TECHNIQUE: Transaxial images were obtained from the dome of the diaphragm to the symphysis pubis without oral contrast. IV 100mL Isovue-300 was administered. Sagittal and coronal images were reconstructed. Individualized dose optimization techniques were used for this CT. COMPARISON: Comparison is made with prior study dated 07/12/2015. FINDINGS: Small left pleural effusion with bibasilar atelectasis and/or scarring. Coronary artery calcification. Normal liver. Normal gallbladder and extrahepatic biliary system. Normal spleen. Normal pancreas. Normal bilateral adrenal glands. Normal right kidney. Normal left kidney. There is fluid distention of the stomach. Thickened gastric folds. Normal small intestine. There are multiple colonic diverticula consistent with diverticulosis. The appendix is visualized and appears normal. There is diffuse atherosclerotic calcification of the abdominal aorta, without a demonstrated aneurysm. Normal inferior vena cava. Normal retroperitoneum. A MATTHEWS catheter is seen within the empty bladder. Small amount of free fluid in the pelvis. Small bilateral inguinal hernias containing fat. Stable anterolisthesis of L4 on L5. CT/CT Abd/Pelvis W/WO Contrast IMPRESSION: Fluid distention of the stomach. Findings suggestive of thickening of the gastric folds. Small amount of free fluid in the pelvis. Small bilateral effusions left greater than right with bibasilar atelectasis and/or scarring. Electronically Signed: Paul Moctezuma MD at 14:47 EDT ,
== END | disposition home or self-care (01) ==
PROVIDERS: PCP Family Medicine; Referring Provider Urology; Visit Provider Urology
DX: R31.9 Hematuria, unspecified (principal)
CPT/HCPCS: 74178; Q9967; A4216

== ENCOUNTER 2022-06-29 13:30 | Outpatient (CLI) | payer MEDICARE, OTHER, SELFPAY ==
[2022-06-29 13:49] VITALS: BP 110/62; PULSE 76; RESP 14; TEMP 36.8; O2SAT 97
[2022-06-29 14:48] VITALS: BP 111/73; PULSE 74; RESP 14; TEMP 36.9; O2SAT 94
[2022-06-29 15:47] VITALS: BP 114/61; PULSE 65; RESP 14; TEMP 36.8; O2SAT 95
[2022-06-29 15:48] VITALS: BP 114/61; PULSE 75; RESP 14; TEMP 37.1; O2SAT 96
== END 2022-06-29 17:42 | disposition home or self-care (01) ==
LOC: PCUOUT 13:33 → PCU 13:33
PROVIDERS: PCP Family Medicine; Referring Provider Family Medicine Geriatric Medicine; Visit Provider Family Medicine Geriatric Medicine
DX: R57.8 Other shock (principal)
CPT/HCPCS: 36430; 86644; 86850; 86900; 86901; 86920; 86922; P9040

== ENCOUNTER → 2022-10-15 | Outpatient (CLI) | payer MEDICARE, OTHER, SELFPAY ==
--- NOTE | 2022-10-15 08:26 | STRESSREP_ITS ---
Stress Test Report Date: 10-15-2022 Procedure: Pharmacologic stress nuclear imaging study Indications: Atrial fibrillation; CAD; hyperlipidemia; dyspnea Consent: Per the patient Procedure: The patient underwent pharmacologic (Regadenoson 0.4mg ) evaluation with a peak heart rate of 96 beats per minute (64%predicted maximal heart rate) and a resting blood pressure of 134/74 mmHg and a peak blood pressure of 134/74 mmHg. The baseline ECG demonstrated normal sinus rhythm. The peak pharmacologic ECG demonstrated no obvious ECG changes. There was a rare PVC during recovery. There was no complaint of chest discomfort during pharmacologic infusion or recovery. The examination was discontinued secondary to completion of protocol. Impression: 1. Pharmacologic (Regadenoson) evaluation 2. Peak pharmacologic ECG with no obvious ECG changes. 3. There was a rare PVC during recovery. 4. Nuclear images pending Myocardial perfusion imaging study: Technique: The patient was injected with 11.4 millicuries of technetium 99m Cardiolite and subsequently rest SPECT Cardiolite nuclear imaging was obtained in the horizontal long, vertical long, and short axis views. The patient underwent pharmacologic (Regadenoson) evaluation with a peak heart rate of 96 beats per minute (64% percent predicted maximal heart rate) and a resting blood pressure of 134/74 mmHg and a peak blood pressure of 134/74 mmHg. The patient was injected with 32.7 millicuries of technetium 99m Cardiolite and subsequently stress SPECT Cardiolite nuclear imaging was obtained in the horizontal long, vertical long, and short axis views. A gated Cardiolite study at peak stress was obtained. Interpretation: Rest and stress SPECT Cardiolite nuclear imaging status post realignment, normalization, and attenuation correction demonstrate at rest relative uniform tracer uptake and myocardial perfusion appearing within normal limits. Status post stress there is notation of diminished tracer uptake in the distal anterior/anteroapical segments. There is end systolic thickening and brightening. The gated Cardiolite study demonstrates myocardial thickening and inward wall motion. The reported LVEF is 43%. Impression: 1. Rest and stress SPECT her nuclear imaging demonstrate myocardial perfusion changes status post stress in the distal anterior/anteroapical segments compatible with an area of stress-induced myocardial ischemia. 2. The gated Cardiolite study reports an LVEF of 43%. This note was generated with [employer] software. It may contain incorrect words, spelling, and punctuation that were not noted in checking the note before signing.
== END | disposition home or self-care (01) ==
PROVIDERS: PCP Family Medicine; Referring Provider Internal Medicine Cardiovascular Disease; Visit Provider Internal Medicine Cardiovascular Disease
DX: I48.91 Unspecified atrial fibrillation (principal); I25.10 Atherosclerotic heart disease of native coronary artery without angina pectoris; E78.5 Hyperlipidemia, unspecified; R06.00 Dyspnea, unspecified
CPT/HCPCS: 78452; 93017; A9500; A4216; J2785

== ENCOUNTER → 2022-11-04 | Outpatient (CLI) | payer MEDICARE, OTHER, SELFPAY ==
[2022-11-04 14:24] LABS: Hematocrit 36.7 % (37-47); Hemoglobin 11.4 g/dL (12.0-15.0); Mean Corp Hgb Conc 31.1 g/dL (32-36); Mean Corpuscular Volume 93.4 fL (81-99); Mean Platelet Vol. 9.1 fl (6.2-12.0); Platelet Count 445 K/mm3 (150-450); RBC Distribution Width CV 14.4 % (11.6-14.6); RBC Distribution Width SD 49.3 fl (35.1-43.9); Red Blood Count 3.93 M/mm3 (4.2-5.4); White Blood Count 11.7 K/mm3 (4.4-11.0)
[2022-11-04 14:49] LABS: International Normalized Ratio 1.1; Prothrombin Time (Protime)PT. 14.1 SECONDS (11.7-14.9)
[2022-11-04 14:50] LABS: Partial Thromboplast Time 32.2 Seconds (24.1-36.2)
[2022-11-04 14:53] LABS: Anion Gap 9 (5-15); BUN 22 mg/dL (7-18); Calcium,Total 9.3 mg/dL (8.5-10.1); Chloride 100 mmol/L (98-107); Creatinine, Serum 0.78 mg/dL (0.55-1.02); EST Glomerular Filtration Rate 77 mL/min (>60); Est Glom Filt Rate - Afr Amer 93 mL/min (>60); Glucose 130 mg/dL (74-106); Potassium 3.6 mmol/L (3.5-5.1); Sodium Level 137 mmol/L (136-145)
== END | disposition home or self-care (01) ==
LOC: LAB 14:01
PROVIDERS: PCP Family Medicine; Referring Provider Internal Medicine Cardiovascular Disease; Visit Provider Internal Medicine Cardiovascular Disease
DX: I25.10 Atherosclerotic heart disease of native coronary artery without angina pectoris (principal); I48.0 Paroxysmal atrial fibrillation; R94.39 Abnormal result of other cardiovascular function study; E78.5 Hyperlipidemia, unspecified
CPT/HCPCS: 36415; 80048; 85027; 85610; 85730

== ENCOUNTER 2022-11-11 07:28 | Day surgery (SDC) | payer MEDICARE, OTHER, SELFPAY ==
--- NOTE | 2022-11-04 13:36 | RAD_ITS ---
STUDY: X-RAY CHEST REASON FOR EXAM: Female, 72 years old. Pre Procedure Testing TECHNIQUE: XR Chest 2 Views COMPARISON: 06.13.22 FINDINGS: There is atherosclerotic calcification of the aortic arch with tortuosity. There are diffuse degenerative changes of the visualized thoracic spine. There is degenerative osteoarthritis of the bilateral shoulders. There is no demonstrated pleural abnormality. There is left upper lobe scarring. Normal size heart. Normal mediastinum and ann. Normal visualized pulmonary arteries. There is no demonstrated abnormality of the visualized soft tissue structures of the upper abdomen. RAD/Chest PA and Lateral IMPRESSION: There are no acute findings. Electronically Signed: George Pulliam MD at 14:12 EST ,
[2022-11-10 09:28] VITALS: BMI 20.9
--- NOTE | 2022-11-10 15:45 | HP.PCM_ITS ---
History and Physical Date of Admission: 11/11/22 [facility] [address] [place] [address] MR#: [id number] Acct: [id number] Name:CARMEN URIARTE Rep #: [id number] : 1950 Provider: Dr. Misael Daniels MD Age/Sex:? 72/F ?Location: [facility] Status: Signed HPI [facility] History of Present Illness Details: This is a 72-year-old white female who presents for outpatient cardiovascular consultation based upon concerns of trolled fibrillation, and abnormal chest CT scan commenting on underlying atherosclerotic coronary artery disease, hyperlipidemia, superimposed upon tobacco abuse.? She spent a long period of time (approximately 2 months) based upon her recollection and her daughter's recollection-who is with her today at [facility] in both the acute care and in the transitional care unit based upon concerns from their understanding of COVID-19 and Legionella.? During this time she apparently had intermittent atrial fibrillation.? She was placed on medical management which included beta-blockers, digitalis, and anticoagulants.? She had undergone evaluation with a transthoracic echocardiogram.? The results are noted below.? She has been out of the hospital.? She presents for outpatient cardiovascular evaluation. At the present time she denies any ongoing symptoms of classic angina pectoris.? She believes her breathing is improving.? However her daughter states her oxygen saturation still drops at night.? She states that they are pending a pulmonology evaluation.? There is been no obvious orthopnea or PND or peripheral pitting edema.? She has had no near-syncope or syncope. In the office today she had an ECG.? She was noted to be in sinus rhythm with no acute ECG changes. Intake Vital Signs ? 07/30/2217:24 09/25/2214:07 09/25/2214:10 Height 5 ft 8 in 5 ft 8 in 5 ft 8 in Weight: ? ? 138 lb BMI ? ? 20.9 BP ? ? 122/72 H Blood Pressure Location ? ? Lt brachial Position ? ? Sitting Respiration ? ? 18 Pulse ? ? 64 Pulse SourceB ? ? Auscultation Intake Visit Reasons:?A-FIB/REF. 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 Refrigeration Required: No Accompanied by: Daughter Allergies Sulfa (Sulfonamide Antibiotics) Allergy (Unknown, Verified 09/25/22 14:10) GI issues Medications alendronate 70 mg tablet 70 mg PO MO Osteoporosis 05/18/22 [History Confirmed 09/25/22] atorvastatin 20 mg tablet 20 mg PO QHS Cholestrol 05/18/22 [History Confirmed 09/25/22] metformin 500 mg tablet 500 mg PO DAILY BP 05/18/22 [History Confirmed 09/25/22] apixaban 5 mg tablet (Eliquis) 5 mg PO BID Blood thinner 30 days #60 tabs 07/30/22 [Rx Confirmed 09/25/22] midodrine 5 mg tablet 10 mg PO TIDCM 30 days #180 tabs 07/30/22 [Rx Confirmed 09/25/22] mirtazapine 15 mg tablet 7.5 mg PO QHS 30 days #15 tabs 07/30/22 [Rx Confirmed 09/25/22] pantoprazole 40 mg tablet,delayed release 40 mg PO BID GERD 30 days #60 tabs 07/30/22 [Rx Confirmed 09/25/22] polysaccharide iron complex 150 mg iron capsule (Ferrex) 150 mg PO DAILY 30 days #30 caps 07/30/22 [Rx Confirmed 09/25/22] potassium chloride 20 mEq tablet,extended release(part/cryst) (Klor-Con M) 20 meq PO BIDCM 30 days #60 tabs 07/30/22 [Rx Confirmed 09/25/22] sucralfate 1 gram tablet 1 g PO 1HR_ACHS Stomach 30 days #120 tabs 07/30/22 [Rx Confirmed 09/25/22] cholecalciferol (vitamin D3) 50 mcg (2,000 unit) tablet 50 mcg PO DAILY 09/23/22 [History Confirmed 09/25/22] metoprolol tartrate 25 mg tablet 25 mg PO BIDCM 09/23/22 [History Confirmed 09/25/22] methenamine hippurate 1 gram tablet 1 g PO QHS 09/25/22 [History Confirmed 09/25/22] PFSH Medical History? COVID-19 Diabetes Diabetes mellitus Frequent urinary tract infections GERD (gastroesophageal reflux disease) Hematuria High cholesterol History of diabetes mellitus Osteoarthritis Paroxysmal A-fib Tobacco abuse Type 1 diabetes Family History? Uncle Heart diseaseUncle Heart disease Social History? household members:? spouse Smoking Status:? Former smoker alcohol intake:? never substance use type:? does not use caffeine:? Yes Type: coffee Number of servings: 2 ROS Const Const: Negative for fatigue, weakness, body ache, fever(s), headache(s), chills, frequent falls, night sweats, daytime sleepiness, difficulty sleeping, excessive sweating, weight gain, weight loss, increased appetite, poor appetite, anorexia or other Eyes Eyes: Negative for blurry vision or double vision ENT ENT: Positive for balance problems (ambulates with a cane); Negative for headache(s) or dizziness Cardio Chest Pain: No Palpitations: No Edema: None Muscle aches with walking: None Resp Respiratory: Positive for SOB with activity (occasional; baseline) and SOB orthopnea\SOB lying down (occasional); Negative for SOB at rest, Cough, Coughing up blood/hemoptysis, chest congestion, pain on inspiration, snoring, stridor, wheezing, crackles, paroxysmal nocturnal dyspnea or other Musc Musc: Positive for balance problems (ambulates with a cane); Negative for muscle aches/ myalgia, muscle weakness or joint pain Neuro Neuro: Negative for dizziness, lightheadedness, near syncope, syncope, orthostatic symptoms, frequent falls, headache(s), weakness, confusion, memory loss, restless legs, blurry vision, double vision, vertigo, seizures, lack of coordination or other Endo Endo: Negative for fatigue or excessive sweating Cardiology Exam Const Appearance: cooperative, comfortable, no acute distress, well developed and well groomed Nutritional Appearance: thin Orientation: alert, awake and oriented x3 Head Head: normal to inspection, normocephalic and atraumatic Ears: hearing grossly normal bilaterally Nose: external nose normal Face and Sinus: face symmetric Eyes Eyelids: eyelids normal Conjunctivae: conjunctivae normal Pupils: PERRL EOM: EOM intact bilaterally Neck Neck: normal visual inspection and full ROM Carotids: normal carotid upstroke Chest Chest inspection: normal inspection of the chest, symmetric chest movement and normal respiratory effort Auscultation: Bilateral: Clear to Auscultation Cardio Palpation: normal PMI Rate: regular rate Rhythm: regular rhythm Heart sounds: S1 normal and S2 normal GI GI: normal to inspection, soft and bowel sounds present Neuro General: patient alert, patient awake, patient oriented x3 and moves all extremities Skin Skin: no rashes or lesions noted Extremities Pulses: Normal: Right Radial Pulse and Left Radial Pulse Lower Extremity Edema: None: Bilateral Psych Psychological: normal affect Supplemental Info Supplemental Information Transthoracic echocardiogram: 05-19-2022 Interpretation Summary Normal LV size. No regional wall motion abnormalities noted. Left ventricular systolic function is normal. The estimated ejection fraction is 60 %. Contrast injection was performed. Chest CTA: 05-18-2022 IMPRESSION: 1.? No evidence of pulmonary embolus. 2.? No aortic dissection or aneurysm. 3.? Interstitial alveolar infiltrates in the right upper lobe.? There is consolidative changes in the right lung base. 4.? Atherosclerotic changes of the thoracic aorta and coronary arteries. Labs: ?? ? LDL Cholesterol 27 mg/dL (0-130) ?? ? HDL Cholesterol 11 mg/dL (40-) L ?? ? Triglycerides 98 mg/dL (-199) ?? ? VLDL Cholesterol 20 mg/dL (5-40) Diagnostics: ?? ? Electrocardiogram ? Echocardiogram ? Chest X-Ray ? Pulmonary: ?? ? No Data to Display Assessment and Plan Assessment and Plan (1) Paroxysmal A-fib: ?Status:?Acute ?Comment: On rate control medication and anticoagulation ?Plan: At the present time she will continue medical therapy. At the moment she will be discontinuing her digitalis therapy.? She will continue her beta-gunnar therapy.? She will continue her anticoagulant therapy. (2) CAD (coronary artery disease): ?Status:?Acute ?Plan: Based upon her scan findings there are concerns of underlying CAD.? She states she has never been evaluated for this. She will undergo further evaluation.? This will include a screening pharmacologic stress nuclear imaging study as she cannot walk on a treadmill based on her pulmonary disease and the fact that she walks with a cane. Depending upon the findings she may or may not need further cardiac evaluation. (3) Hyperlipidemia: ?Status:?Acute ?Plan: She should continue risk factor evaluation care as deemed appropriate. (4) Tobacco abuse: ?Status:?Acute ?Plan: She states that she has not smoke cigarettes since she has been in the hospital. She was counseled on the importance of not restarting her cigarette smoking. ? ? ? Orders: Orders 12 Lead EKG performed by BMS Today I48.0 - Paroxysmal atrial fibrillation ? Nuclear Stress Test - Chemical Today I48.0 - Paroxysmal atrial fibrillation ? Medications: Discontinued digoxin ?? Discontinued Reason:? Order Changed 125 mcg? PO DAILY 30 days 30 tabs 0RF ? ? Plan Details Additional Comments: The above was discussed with the patient with her daughter present.? They were agreeable to this approach. Thank you for allowing me to participate in the care of your patient.? Please don't hesitate to call if any issues arise. This note was generated using a voice recognition system and there may be incorrect words, spelling or punctuation that were not noted when reviewing the office note prior to saving. Follow Up: ? ? 3 Months (PFM ) COVID (Procedure Consent) Procedure Criteria Procedure Criteria: Yes Elective The surgeon/proceduralist and patient have discussed in detail the risk of exposure to and/or potential harm posed by the COVID-19 virus with having a surgery/procedure at this time versus the risk of? delaying the surgery/procedure. It is not possible to know either the risk of delaying the surgery or procedure or chance of getting an infection with perfect accuracy, but a joint decision was made between the patient and the surgeon/proceduralist ?to proceed at this time with the scheduled surgery/procedure as indicated on the consent form. Coding Level of Care Code Off vis,new,level 4 Diagnoses Paroxysmal A-fib? I48.0 CAD (coronary artery disease)? I25.10 Hyperlipidemia? E78.5 Tobacco abuse? Z72.0 Coding Level of Care Code Off vis,new,level 4 Diagnoses Paroxysmal A-fib? I48.0 CAD (coronary artery disease)? I25.10 Hyperlipidemia? E78.5 Tobacco abuse? Z72.0 09/25/22 1514 <Electronically signed by Misael Daniels MD> Date Misael Daniels MD Cosigner Signature: Date (if applicable) CC:? Dr. Misael Molina MD; Dr. Dax Terry MD ~ Assessment & Plan Addt'l Comments Addendum: 11-11-2022 I have examined the patient the following changes are noted: The patient underwent further evaluation with a stress nuclear imaging study on 10-15-2022. The results are noted below. Stress Test Report Date: 10-15-2022 Procedure: Pharmacologic stress nuclear imaging study? Indications: Atrial fibrillation; CAD; hyperlipidemia; dyspnea Consent: Per the patient Procedure: The patient underwent pharmacologic (Regadenoson 0.4mg ) evaluation with a peak heart rate of 96 beats per minute (64%predicted maximal heart rate) and a resting blood pressure of 134/74 mmHg and a peak blood pressure of 134/74 mmHg. The baseline ECG demonstrated normal sinus rhythm.? The peak pharmacologic ECG demonstrated no obvious ECG changes. There was a rare PVC during recovery. There was no complaint of chest discomfort during pharmacologic infusion or recovery. The examination was discontinued secondary to completion of protocol. Impression: 1.? Pharmacologic (Regadenoson) evaluation 2.? Peak pharmacologic ECG with no obvious ECG changes. 3.? There was a rare PVC during recovery. 4.? Nuclear images pending Myocardial perfusion imaging study: Technique: The patient was injected with 11.4 millicuries of technetium 99m Cardiolite and subsequently rest SPECT Cardiolite nuclear imaging was obtained in the horizontal long, vertical long, and short axis views. The patient underwent pharmacologic (Regadenoson) evaluation with a peak heart rate of 96 beats per minute (64% percent predicted maximal heart rate) and a resting blood pressure of 134/74 mmHg and a peak blood pressure of 134/74 mmHg. The patient was injected with 32.7 millicuries of technetium 99m Cardiolite and subsequently stress SPECT Cardiolite nuclear imaging was obtained in the horizontal long, vertical long, and short axis views.? A gated Cardiolite study at peak stress was obtained. Interpretation: Rest and stress SPECT Cardiolite nuclear imaging status post realignment, normalization, and attenuation correction demonstrate at rest relative uniform tracer uptake and myocardial perfusion appearing within normal limits.? Status post stress there is notation of diminished tracer uptake in the distal anterior/anteroapical segments.? There is end systolic thickening and brightening.? The gated Cardiolite study demonstrates myocardial thickening and inward wall motion.? The reported LVEF is 43%. Impression: 1.? Rest and stress SPECT her nuclear imaging demonstrate myocardial perfusion changes status post stress in the distal anterior/anteroapical segments compatible with an area of stress-induced myocardial ischemia. 2.? The gated Cardiolite study reports an LVEF of 43%. Based upon the patient's history and her objective findings a recommendation was made for further evaluation with diagnostic cardiac catheterization. The procedure and risk were discussed with the patient. She was agreeable to this approach. This note was generated using a voice recognition system and there may be incorrect words, spelling or punctuation that were not noted when reviewing the office note prior to saving.
--- NOTE | 2022-11-11 10:27 | CL.D_ITS ---
Patient Name: CARMEN MILLER Study Date: 11/11/2022 Performing: Misael Daniels MD Ht: 68 inches 172.72 cm : 1950 Wt: 138.01 lbs 62.6 kg Age: 72 Gender: female BSA: 1.75 PROCEDURE(S) PERFORMED [id number]-([id number])[facility] CLINICAL PROFILE AND INDICATIONS Indications: Cardiac Arrythmia, Suspected CAD Heart Failure: None Stress/Imaging Date: 10/15/2022tress Test with SPECT MPI: Positive Intermediate Risk Angina Classification Anginal Classification w/in 2 Weeks: Anginal Equivalent Dyspnea CAD Presentations: Other: shortness of breath CONCLUSIONS Elevated Left Ventricular End Diastolic Pressure [place] Multivessel CAD Aortic Root Calcified RECOMMENDATIONS Risk factor modification Medical therapy Case discussed / reviewed with Dr. Bhatti of Interventional Cardiology DESCRIPTION OF PROCEDURE The patient arrived to the procedure lab. The risks and benefits of the procedure as well as a full description of our services here and current unavailability of surgical backup were fully explained to the patient and/or their significant other prior to the catheterization. The Timeout was completed, verifying the correct patient and procedure. The patient's procedural site was prepped and draped in the usual fashion. Local anesthetic was given subcutaneously to right radial region with Lidocaine 2%. Using a modified Seldinger technique, arterial access was obtained via the right radial artery, a 6Fr sheath was inserted. Right Coronary Artery selective angiography was then performed in multiple views using a 5 Fr. 4.0 [place] catheter. Left Coronary Artery selective angiography was performed in multiple views using a 5 Fr. 4.0 [place] catheter. LV to AO pullback pressures were then recorded.The arterial sheath was pulled and a TR Band was applied for hemostasis. 16cc air inserted CORONARY ANGIOGRAPHY DOMINANCE: Right Dominant LEFT MAIN: Angiographically normal LEFT ANTERIOR DESCENDING ARTERY: PROX LAD: Mild luminal irregularities, 25 - 50 % Stenosis DIAGONAL 1: Proximal - Mild luminal irregularities CIRCUMFLEX ARTERY: MID CIRC: 25 - 50 % Stenosis RIGHT CORONARY ARTERY: Mild luminal irregularities AORTIC ROOT: Calcified COMPLICATIONS No Complications PROCEDURE MEDICATIONS Fentanyl 50 mcg IV Versed 1 mg IV Oxygen: 2 L/min via nasal cannula Benadryl 50 mg IV @ 11/11/2022 10:00:25 Heparin given IA 11/11/2022 09:44:30 Verapamil 2.5mg, Ntg 100mcgs, 3000 units of Heparin given IA 11/11/2022 09:44:30 SUMMARY OF HEMODYNAMIC DATA Time AIR REST ECG 08:00:02 AO 138/74 (100) SA 09:47:16 LV 173/1, 18 09:55:41 LV 173/0, 25 09:55:49 LVp 165/3, 20 09:56:00 AOp 165/66 (111) 09:56:07 Signed By Misael Daniels MD On 11/11/2022 10:27:09 Misael Daniels MD
== END 2022-11-11 11:45 | disposition home or self-care (01) ==
LOC: CLSP 07:30
PROVIDERS: PCP Family Medicine; Referring Provider Internal Medicine Cardiovascular Disease; Visit Provider Internal Medicine Cardiovascular Disease
DX: I25.119 Atherosclerotic heart disease of native coronary artery with unspecified angina pectoris (principal); I70.0 Atherosclerosis of aorta; I48.0 Paroxysmal atrial fibrillation; E78.5 Hyperlipidemia, unspecified; K21.9 Gastro-esophageal reflux disease without esophagitis; M19.90 Unspecified osteoarthritis, unspecified site; R93.1 Abnormal findings on diagnostic imaging of heart and coronary circulation; Z87.891 Personal history of nicotine dependence; Z79.01 Long term (current) use of anticoagulants; Z79.899 Other long term (current) drug therapy; Z79.84 Long term (current) use of oral hypoglycemic drugs; Z86.16 Personal history of COVID-19
CPT/HCPCS: 71046; 93454; 99152; 99153; J7040; C1769; C1894; Q9967

== ENCOUNTER → 2022-11-13 | Outpatient (CLI) | payer MEDICARE, OTHER, SELFPAY ==
[2022-11-13 16:25] LABS: Anion Gap 10 (5-15); BUN 18 mg/dL (7-18); BUN/Creat Ratio 21.3 RATIO (10-20); Calcium,Total 8.9 mg/dL (8.5-10.1); Chloride 100 mmol/L (98-107); Creatinine, Serum 0.85 mg/dL (0.55-1.02); EST Glomerular Filtration Rate 70 mL/min (>60); Est Glom Filt Rate - Afr Amer 85 mL/min (>60); Glucose 122 mg/dL (74-106); Potassium 3.4 mmol/L (3.5-5.1); Sodium Level 137 mmol/L (136-145)
== END | disposition home or self-care (01) ==
LOC: LAB 14:35
PROVIDERS: PCP Family Medicine; Visit Provider Internal Medicine Cardiovascular Disease
DX: I25.10 Atherosclerotic heart disease of native coronary artery without angina pectoris (principal); E11.9 Type 2 diabetes mellitus without complications
CPT/HCPCS: 36415; 80048

== ENCOUNTER → 2022-12-11 | Outpatient (CLI) | payer MEDICARE, OTHER, SELFPAY ==
[2022-12-11 11:08] LABS: Cholesterol 156 mg/dL (200); High Density Lipoprotein 46 mg/dL; Triglycerides 182 mg/dL; Very Low Density Lipoprotein 36 mg/dL (5-40)
== END | disposition home or self-care (01) ==
LOC: MTLAB 08:12
PROVIDERS: PCP Family Medicine; Referring Provider Family Medicine; Visit Provider Family Medicine
DX: I25.10 Atherosclerotic heart disease of native coronary artery without angina pectoris (principal)
CPT/HCPCS: 36415; 80061

== ENCOUNTER → 2022-12-23 | Outpatient (CLI) | payer MEDICARE, OTHER, SELFPAY ==
--- NOTE | 2022-12-23 12:57 | CT_ITS ---
STUDY: CT CHEST WITHOUT CONTRAST REASON FOR EXAM: Female, 72 years old. PULM NODULE RADIATION DOSAGE (If Supplied By Facility): CTDIvol = ( 7.68 ) mGy, DLP = ( 282.28 ) mGycm TECHNIQUE: Transaxial imaging was performed without the administration of intravenous contrast material. Multiplanar coronal and sagittal images were reformatted. Individualized dose optimization techniques were used for this CT. COMPARISON: Comparison is made with prior study dated May 18, 2022. FINDINGS: CHEST Mild scarring in the anterior aspect of the left upper lobe. There is a new 5.7 mm noncalcified nodule in the posterior-lateral aspect of the left upper lobe as seen on axial image #22 and coronal image #148. There is also evidence of a new 7.4 mm nodule in the anterior aspect of the right upper lobe as seen on axial image #43. There is a new 7.5 mm noncalcified nodule in the superior segment of the left lower lobe. This also evidence of a 4 mm noncalcified nodule in the peripheral lateral aspect of the left lower lobe. Multiple tiny nodules are also seen in the posterior aspect of the left lower lobe. The previously seen consolidation in the right lung is clear. There is evidence of emphysematous changes. There are calcifications of the coronary arteries. Normal mediastinum. Normal hilar regions. Normal unenhanced pulmonary arteries. There is atherosclerotic calcification of the aortic arch with tortuosity and elongation of the aortic arch and descending thoracic aorta. There are multi-level degenerative changes of the thoracic spine. There is no demonstrated abnormality of the visualized upper abdomen. Normal abdominal wall. Normal osseous structures. CT/Chest without Contrast IMPRESSION: New multiple small noncalcified nodules in the left leg as described. The previously seen infiltration in the right lung has cleared. Electronically Signed: Paul Moctezuma MD at 11:24 EST ,
== END | disposition home or self-care (01) ==
LOC: CT 12:53
PROVIDERS: PCP Family Medicine; Referring Provider Internal Medicine Pulmonary Disease; Visit Provider Internal Medicine Pulmonary Disease
DX: R91.1 Solitary pulmonary nodule (principal)
CPT/HCPCS: 71250

== ENCOUNTER → 2023-01-26 | Outpatient (CLI) | payer MEDICARE, OTHER, SELFPAY ==
[2023-01-26 17:48] LABS: Absolute Lymphocyte Count 2.49 X10^3/uL (0.83-4.51); Absolute Neutrophil Count 6.4 X10^3/uL (2.0-7.7); Basophil# 0.05 X10^3/uL; Basophil% 0.5 % (0-1); Eosinophil# 0.19 X10^3/uL; Hematocrit 39.9 % (37-47); Hemoglobin 12.6 g/dL (12.0-15.0); Lymphocyte # 2.49 X10^3/ul (0.83-4.51); Lymphocyte % 25.8 % (19-41); Mean Corp Hgb Conc 31.6 g/dL (32-36); Mean Corpuscular Hgb 30.4 pg (27.0-32.0); Mean Corpuscular Volume 96.1 fL (81-99); Mean Platelet Vol. 9.3 fl (6.2-12.0); Monocyte# 0.55 X10^3/uL; Monocyte% 5.7 % (0-10); NRBC Flagged by Analyzer 0 % (0-5); Neutrophil # 6.35 X10^3/uL (2.7-7.7); Neutrophil % 65.7 % (47-70); Platelet Count 436 K/mm3 (150-450); RBC Distribution Width CV 13.2 % (11.6-14.6); RBC Distribution Width SD 46.6 fl (35.1-43.9); Red Blood Count 4.15 M/mm3 (4.2-5.4); White Blood Count 9.7 K/mm3 (4.4-11.0)
[2023-01-26 18:20] LABS: AST(SGOT) 18 U/L (15-37); Alanine Aminotransfer ALT/SGPT 28 U/L (13-56); Albumin, Serum 4.4 g/dL (3.2-5.0); Alkaline Phosphatase 76 U/L (45-117); Bilirubin, Direct 0.11 mg/dL (0.00-0.30); CRP 3.32 mg/L (0.0-3.0); Erythrocyte Sedimentation Rate 20 mm/hr (0-30); Globulin 3.8 g/dL (2.2-4.2); Protein, Total 8.2 g/dL (6.4-8.2); Rheumatoid Factor < 10.0 IU/mL (<15)
[2023-01-28 14:09] LABS: Anti-Scleroderma-70 AB <0.2 AI (0.0-0.9); RNP Ab <0.2 AI (0.0-0.9); SJOGREN'S Anti-SS-A test < 0.2 AI (0.0-0.9); SJOGREN'S Anti-SS-B test < 0.2 AI (0.0-0.9)
[2023-01-28 15:08] LABS: Angiotensin Convert Enzyme 64 U/L (14-82); Cytoplasmic Ab (C-ANCA) <1:20 titer (Neg:<1:20)
[2023-01-28 18:31] LABS: ANTINUCLEAR ANTIBODIES DIRECT Negative (Negative); Anti-Smooth Muscle ABS 5 Units (0-19); Anti-dsDNA Ab <1 IU/mL (0-9); CCP IgG Antibodies 6 units (0-19); Perinuclear Ab (P-ANCA) <1:20 titer (Neg:<1:20)
== END | disposition home or self-care (01) ==
LOC: MTLAB 16:32
PROVIDERS: PCP Family Medicine; Referring Provider Internal Medicine Pulmonary Disease; Visit Provider Internal Medicine Pulmonary Disease
DX: J43.9 Emphysema, unspecified (principal); I48.91 Unspecified atrial fibrillation; R91.1 Solitary pulmonary nodule
CPT/HCPCS: 36415; 80076; 82164; 83516; 85025; 85652; 86038; 86140; 86200; 86225; 86235; 86256; 86431

== ENCOUNTER 2023-01-27 05:27 | Day surgery (SDC) | payer MEDICARE, OTHER, SELFPAY ==
[2023-01-27] VITALS (7 sets, daily range): BP systolic 96–137; BP diastolic 59–77; PULSE 70–89; RESP 16–18; TEMP 36–37.1; O2SAT 96–100; BMI 23.4
--- NOTE | 2023-01-27 | GASB_PTH ---
PATIENT: CARMEN MILLER LOC: EN U#:[id number] AGE/SX: 72/F ROOM: RE01/27/[address]: Dr. Maurilio Mcmanus DO : 1950 BED: DIS: 01/27/2023 SPEC #: [id number] RECD: 01/27/23 13:06 STATUS: LAURA RELizz #: [id number] DAVI: 01/27/23 00:[address]: Maurilio Mcmanus DEPT: SURGICAL PATHOLOGY RECD BY: Stevo Lubin ENTERED: 01/27/23 13:07 SP TYPE: Gastric Bx OTHR DR: Dr. Misael Molina MD Tissues: A - Gastric mucous membrane B - Esophageal mucous membrane Procedures: Surgery Specimen Level IV HEADER OPERATION: Colonoscopy unable to complete, [place] [place] PRE-OP DIAGNOSIS: GI bleed, history of polyps TISSUE SUBMITTED: A ? Gastric body biopsy for H. pylori and path, B ? Distal esophagus biopsy MICROSCOPIC DIAGNOSIS A. Gastric body, biopsy: Mild chronic gastritis. See comment. B. Distal esophagus, biopsy: Fragments of benign squamous mucosa. No evidence of inflammation. AM:zak 01/28/2023 COMMENT A. The results of immunohistochemistry for Helicobacter pylori will be reported separately ([id number]). MICROSCOPIC DESCRIPTION Slides are reviewed. GROSS DESCRIPTION A - Received in fixative is one container labeled with the patient's name and designated gastric body biopsy. The specimen consists of two irregular fragments of light mauro soft tissue that in aggregate measure 0.6 x 0.4 x 0.1 cm. The specimen is totally submitted in one cassette. B - Received in fixative is one container labeled with the patient's name and designated distal esophagus biopsy. The specimen consists of two irregular fragments of light mauro soft tissue that in aggregate measure 0.7 x 0.5 x 0.1 cm. The specimen is totally submitted in one cassette. / SJ:zak 01/27/2023 TC:3 [facility]: [id number] x2
[2023-01-27] MEDS: Lactated Ringers 1,000 ML 15 ML IV (06:05)
[2023-01-27 06:30] LABS: Bedside Glucose 171 mg/dL (74-106)
--- NOTE | 2023-01-27 06:30 | IMM_PTH ---
PATIENT: CARMEN MILLER LOC: EN U#:[id number] AGE/SX: 72/F ROOM: RE01/27/[address]: Dr. Maurilio Mcmanus DO : 1950 BED: DIS: 01/27/2023 SPEC #: [id number] RECD: 01/27/23 14:04 STATUS: LAURA RELizz #: [id number] DAVI: 01/27/23 06:[address]: Maurilio Mcmanus DEPT: IMMUNOHISTOCHEMISTRY RECD BY: Cyndy Parekh ENTERED: 01/27/23 14:04 SP TYPE: IMMUNO OTHR DR: Dr. Misael Molina MD Tissues: A - Stomach, NOS Procedures: H Pylori (initial) PHYSICIAN & INSTITUTION [place] [id number] SPECIMEN INFORMATION: Tissue Source: A ? Gastric body biopsy Clinical Info: GI bleed, history of polyps Specimen Number: [id number] CPT code: 12662 METHODOLOGY: Deparaffinized sections of prefer/formalin-fixed tissue or PAP/DQ stained slides are incubated with monoclonal/polyclonal antibodies/oligonucleotide probes. Localization is made via biotin free immunoperoxidase method. Appropriate controls are performed and reacted as expected. Results on target cell population are indicated in the following table: RESULTS: ANTIBODY / CLONE RESULT Block A H Pylori (polyclonal) negative These tests were developed and their performance characteristics determined by [facility]. They may not have been cleared or approved by the U.S. Food and Drug Administration. The FDA has determined that such clearance or approval is not necessary. The above immunohistochemical/dualISH markers are ordered and reviewed by the Pathologist. INTERPRETATION: A. Gastric body, biopsy: Negative for Helicobacter pylori organisms. AM:zak 01/28/2023
--- NOTE | 2023-01-27 06:40 | HP.PCM_ITS ---
History and Physical Date of Admission: 01/27/23 72 F who presents to the office today for PMH DM 1; CAD; hyperlipidemia; encephalopathy; a.Fib [facility] Hospitalization 05.18.22-05.31.22 for COVID with legionella pne, respiratory failure. Discharged to SNF. [facility] ED 06.03.22 with SOB and hypoxia. [facility] hospitalization 06.06.22-06.18.22 with transfer to TCU until 08.06.22. GI consulted 06.06.22 for suspected GIB with start of PPI and octreotide drip (stopped several days later). 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 EGD 06.11.22?irregular Zline 37cm; LA Grade B esophagitis; diffuse severe inflammation, erythema and friability of entire stomach, heater probed; 5mm non- bleeding diverticulum of second portion duodenum; 4mm nonbleeding diverticulum of jejunum; non bleeding crater ulcer in jejunum. ROS Const Constitutional: No anorexia, fatigue, fever(s), weight change or sleep problems Eyes Eyes: No change in vision ENT ENT: No abnormal hearing, difficulty swallowing, mouth lesions, tongue swelling or throat swelling Resp Respiratory: No cough or shortness of breath Cardio Cardiology: No chest pain at rest, chest pain with exertion, shortness of breath or dyspnea on exertion Gastro GI: No difficulty swallowing Genitourinary-Female: No difficulty urinating or burning urination Musc Musculoskeletal: No joint pain, joint swelling, muscle weakness or decreased muscle mass Skin Skin: No hair loss in leg, yellowing of the eye, itchy eyes, rash, skin ulcer or skin swelling Neuro Neurology: No abnormal hearing, abnormal movements, confusion, unsteady gait/balance or memory loss Psych Psychiatric: No anxiety, No confusion and No memory loss Endo Endocrine: No fatigue or weight change Aller/Imm Allergy/Immunologic: No itchy eyes, throat swelling or tongue swelling Jason/Lymp Hematologic/Lymphatic: No easy bleeding, easy bruising or enlarged lymph nodes Exam Const General: cooperative and comfortable Nutritional Appearance: average body habitus and well nourished [facility] Head: normal to inspection Ears: hearing grossly normal bilaterally Nose: external nose normal Face and sinus: normal facial exam Mouth: oral mucosae normal Throat: posterior oropharynx normal Eyes General: appearance normal, both eyes and all related structures Neck Neck: normal visual inspection Chest Chest palpation & inspection: normal inspection of the chest and normal palpation of entire chest wall Resp Effort & Inspection: normal respiratory effort Auscultation: Bilateral: Clear to Auscultation Cardio Palpation: normal PMI Rate: regular rate Rhythm: regular rhythm GI Inspection: normal to inspection Auscultation: normal bowel sounds Percussion: normal to percussion Palpation: no hepatosplenomegaly Skin General: no rashes or lesions noted Neuro General: patient alert Extrem General: normal to inspection Psych Affect: normal affect Quality Reporting Tobacco Screening ([facility] 138) Smoking Status: Former smoker Assessment and Plan Assessment and Plan (1) GI bleed: ?Status:?Acute ?Plan: GI bleed secondary to multiple blood ulcers in the setting of severe bile gastritis likely secondary to medications and underlying gastroparesis from medi cations.? She has been on twice daily PPI therapy along with sulcal fate therapy.? We will stop sulcal fate.? Continue Protonix 40 mg p.o. twice daily until she has a repeat upper endoscopy.? She is also recommended continue iron sulfate therapy until her preparation for upper endoscopy (2) Adenomatous polyps: ?Status:?Acute ?Plan: .? She will undergo a surveillance colonoscopy.? She has a history of adenomatous polyps.? Her last colonoscopy was [address] Gurrola.? She was explained alternatives, risks, benefits including and not withstanding bleeding, infection, sepsis, perforation, need for emergent surgery and .? She will have an ASA of 3.? I have examined the patient and the H&P has been reviewed. There are no clinical changes since date of exam.
--- NOTE | 2023-01-27 07:07 | OP.EGD_ITS ---
Patient Name: Ravi Beckham Procedure Date: 01/27/2023 6:16 AM Date of : 1950 Age: 72 Procedure: Upper GI endoscopy Indications: Peptic ulcer Providers: DO Jillian Grajeda MD: Misael Molina MD Medicines: Monitored Anesthesia Care Patient Profile: This is a 72 year old female. Refer to note in patient chart for documentation of history and physical. Patient has symptoms. Complications: No immediate complications. Procedure: Pre-Anesthesia Assessment: - Prior to the procedure, a History and Physical was performed, and patient medications and allergies were reviewed. The patient is competent. The risks and benefits of the procedure and the sedation options and risks were discussed with the patient. All questions were answered and informed consent was obtained. Patient identification and proposed procedure were verified by the physician. Mental Status Examination: alert and oriented. Airway Examination: normal oropharyngeal airway and neck mobility. Respiratory Examination: clear to auscultation. CV Examination: normal. Prophylactic Antibiotics: The patient does not require prophylactic antibiotics. Prior Anticoagulants: The patient has taken no previous anticoagulant or antiplatelet agents. ASA Grade Assessment: III - A patient with severe systemic disease. After reviewing the risks and benefits, the patient was deemed in satisfactory condition to undergo the procedure. The anesthesia plan was to use monitored anesthesia care (MAC). Immediately prior to administration of medications, the patient was re-assessed for adequacy to receive sedatives. The heart rate, respiratory rate, oxygen saturations, blood pressure, adequacy of pulmonary ventilation, and response to care were monitored throughout the procedure. The physical status of the patient was re-assessed after the procedure. After obtaining informed consent, the endoscope was passed under direct vision. Throughout the procedure, the patient's blood pressure, pulse, and oxygen saturations were monitored continuously. The colonoscope was introduced through the mouth, and advanced to the second part of duodenum. The upper GI endoscopy was accomplished without difficulty. The patient tolerated the procedure well. Scope In: 6:44:40 AM Scope Out: 6:47:58 AM Total Procedure Duration Time 0 hours 3 minutes 18 seconds Findings: Mucosal changes including ringed esophagus, feline appearance, longitudinal furrows and small-caliber esophagus were found in the lower third of the esophagus. Biopsies were obtained from the proximal and distal esophagus with cold forceps for histology of suspected eosinophilic esophagitis. Verification of patient identification for the specimen was done. Estimated blood loss was minimal. Diffuse severe inflammation characterized by congestion (edema), erosions and erythema was found in the stomach. Biopsies were taken with a cold forceps for histology. Verification of patient identification for the specimen was done. Estimated blood loss was minimal. No gross lesions were noted in the first portion of the duodenum. Impression: - Esophageal mucosal changes secondary to eosinophilic esophagitis. Biopsied. - Bile gastritis. Biopsied. - No gross lesions in the first portion of the duodenum. Recommendation: - Discharge patient to home. - Resume previous diet. - Continue present medications. - Await pathology results. - Repeat upper endoscopy in 4 months for surveillance. - Gastric emptying study Procedure Code(s): --- Professional --- 59321, Esophagogastroduodenoscopy, flexible, transoral; with biopsy, single or multiple CPT copyright 2017 [employer]. All rights reserved. The codes documented in this report are preliminary and upon shop laborer review may be revised to meet current compliance requirements. Maurilio Mcmanus DO 01/27/2023 7:06:39 AM This report has been signed electronically. Number of Addenda: 0 Note Initiated On: 01/27/2023 6:16 AM
--- NOTE | 2023-01-27 07:08 | OP.CCLET_ITS ---
01/27/2023 Misael Molina MD [address] [phone] Re : Upper GI endoscopy procedure for Ravi Beckham Dear Dr. Molina This procedure was performed on Friday, January 27, 2023. My impressions and recommendations are as follows: Impressions : - Esophageal mucosal changes secondary to eosinophilic esophagitis. Biopsied. - Bile gastritis. Biopsied. - No gross lesions in the first portion of the duodenum. Recommendations : - Discharge patient to home. - Resume previous diet. - Continue present medications. - Await pathology results. - Repeat upper endoscopy in 4 months for surveillance. - Gastric emptying study My findings are described in the full procedure note, which is enclosed. If I can be of further assistance, please feel free to contact me at . Sincerely, Maurilio Mcmanus, 01/27/2023 7:06:39 AM This report has been signed electronically.
--- NOTE | 2023-01-27 07:12 | OP.COLON_ITS ---
Patient Name: Ravi Beckham Procedure Date: 01/27/2023 6:48 AM Date of : 1950 Age: 72 Procedure: Colonoscopy Indications: High risk colon cancer surveillance: Personal history of colonic polyps Providers: Maurilio Mcmanus DO Referring MD: Misael Molina MD Medicines: Monitored Anesthesia Care Patient Profile: This is a 72 year old female. Refer to note in patient chart for documentation of history and physical. Patient has symptoms. Last Colonoscopy: 5 years ago. Complications: No immediate complications. Procedure: Pre-Anesthesia Assessment: - Prior to the procedure, a History and Physical was performed, and patient medications and allergies were reviewed. The patient is competent. The risks and benefits of the procedure and the sedation options and risks were discussed with the patient. All questions were answered and informed consent was obtained. Patient identification and proposed procedure were verified by the physician. Mental Status Examination: alert and oriented. Airway Examination: normal oropharyngeal airway and neck mobility. Respiratory Examination: clear to auscultation. CV Examination: normal. Prophylactic Antibiotics: The patient does not require prophylactic antibiotics. Prior Anticoagulants: The patient has taken no previous anticoagulant or antiplatelet agents. ASA Grade Assessment: III - A patient with severe systemic disease. After reviewing the risks and benefits, the patient was deemed in satisfactory condition to undergo the procedure. The anesthesia plan was to use monitored anesthesia care (MAC). Immediately prior to administration of medications, the patient was re-assessed for adequacy to receive sedatives. The heart rate, respiratory rate, oxygen saturations, blood pressure, adequacy of pulmonary ventilation, and response to care were monitored throughout the procedure. The physical status of the patient was re-assessed after the procedure. After I obtained informed consent, the scope was passed under direct vision. Throughout the procedure, the patient's blood pressure, pulse, and oxygen saturations were monitored continuously. The colonoscope was introduced through the anus and advanced to the descending colon. The colonoscopy was performed with difficulty due to poor bowel prep. Successful completion of the procedure was aided by lavage. The patient tolerated the procedure well. The quality of the bowel preparation was poor. Scope In: 6:49:34 AM Scope Out: 6:55:51 AM Total Procedure Duration Time 0 hours 6 minutes 17 seconds Findings: The perianal and digital rectal examinations were normal. Multiple small and large-mouthed diverticula were found in the recto-sigmoid colon, sigmoid colon and descending colon. Extensive amounts of stool was found in the rectum, in the recto-sigmoid colon, in the sigmoid colon and in the descending colon. Impression: - Preparation of the colon was poor. - Diverticulosis in the recto-sigmoid colon, in the sigmoid colon and in the descending colon. - Stool in the rectum, in the recto-sigmoid colon, in the sigmoid colon and in the descending colon. - No specimens collected. Recommendation: - Discharge patient to home. - Resume previous diet. - Repeat colonoscopy in 4 months because the bowel preparation was poor. Patient will need a 2-day prep. - Continue present medications. Procedure Code(s): --- Professional --- 18362, 53, Colonoscopy, flexible; diagnostic, including collection of specimen(s) by brushing or washing, when performed (separate procedure) CPT copyright 2017 [employer]. All rights reserved. The codes documented in this report are preliminary and upon conference services manager review may be revised to meet current compliance requirements. Maurilio Mcmanus DO 01/27/2023 7:11:32 AM This report has been signed electronically. Number of Addenda: 0 Note Initiated On: 01/27/2023 6:48 AM
--- NOTE | 2023-01-27 07:13 | OP.CCLET_ITS ---
01/27/2023 Misael Molina MD [address] [phone] Re : Colonoscopy procedure for Ravi Leachsalma Dear Dr. Molina This procedure was performed on Friday, January 27, 2023. My impressions and recommendations are as follows: Impressions : - Preparation of the colon was poor. - Diverticulosis in the recto-sigmoid colon, in the sigmoid colon and in the descending colon. - Stool in the rectum, in the recto-sigmoid colon, in the sigmoid colon and in the descending colon. - No specimens collected. Recommendations : - Discharge patient to home. - Resume previous diet. - Repeat colonoscopy in 4 months because the bowel preparation was poor. Patient will need a 2-day prep. - Continue present medications. My findings are described in the full procedure note, which is enclosed. If I can be of further assistance, please feel free to contact me at . Sincerely, Maurilio Mcmanus, 01/27/2023 7:11:32 AM This report has been signed electronically.
== END 2023-01-27 07:55 | disposition home or self-care (01) ==
LOC: EN 05:28 → AC 05:29
PROVIDERS: PCP Family Medicine; Referring Provider Family Medicine; Visit Provider Internal Medicine Gastroenterology
PROC: 0DJD8ZZ Inspection of Lower Intestinal Tract, Via Natural or Artificial Opening Endoscopic (ICD-10-PCS; CPT 45378; principal; 2023-01-27 06:25)
DX: K29.50 Unspecified chronic gastritis without bleeding (principal); I48.91 Unspecified atrial fibrillation; K20.0 Eosinophilic esophagitis; K57.30 Diverticulosis of large intestine without perforation or abscess without bleeding; K27.9 Peptic ulcer, site unspecified, unspecified as acute or chronic, without hemorrhage or perforation; Z86.010 Personal history of colon polyps; Z87.891 Personal history of nicotine dependence; I25.10 Atherosclerotic heart disease of native coronary artery without angina pectoris; E78.5 Hyperlipidemia, unspecified
CPT/HCPCS: 43239; 45378; 82962; 88305; 88342; J7120

== ENCOUNTER → 2023-02-05 | Outpatient (CLI) | payer MEDICARE, OTHER, SELFPAY ==
--- NOTE | 2023-02-05 14:51 | BI_ITS ---
MAMMOGRAPHY - BILATERAL SCREENING REASON FOR EXAM: Female, 72 years old. Routine annual screening examination. PERTINENT HISTORY: Sister with breast cancer. TECHNIQUE: Digital bilateral breast valentín (3D mammographic acquisition) in the CC and MLO projections. 2-D mediolateral oblique (MLO) and craniocaudad (CC) views of both breasts were obtained. CAD: Full Field Digital Mammography with Computer Added Detection was performed. COMPARISON: Comparison is made with prior examination January 27, 2008. FINDINGS: Breast Composition: There are scattered areas of fibroglandular density. There are no dominant masses or suspicious calcifications. Stable small benign appearing bilateral axillary lymph nodes. No other significant abnormalities are identified. There has been no significant change since the prior study. BI/SCRN MAMM (CAD)W/VALENTÍN BILAT IMPRESSION: Stable bilateral screening mammogram. Yearly follow-up mammogram recommended. (A) ASSESSMENT CATEGORY: BIRADS Category 1: Negative. A letter regarding these results will be sent to the patient by the facility within 30 days. Approximately 10% of breast cancers are not detected by mammography. A normal mammogram should not delay biopsy of a clinically suspicious abnormality. [id number] Electronically Signed: Paul Moctezuma MD at 15:34 EDT ,
== END | disposition home or self-care (01) ==
LOC: OPBI 14:48
PROVIDERS: PCP Family Medicine; Referring Provider Internal Medicine Pulmonary Disease; Visit Provider Internal Medicine Pulmonary Disease
DX: Z12.31 Encounter for screening mammogram for malignant neoplasm of breast (principal); Z80.3 Family history of malignant neoplasm of breast
CPT/HCPCS: 77063; 77067

== ENCOUNTER → 2023-02-11 | Outpatient (CLI) | payer MEDICARE, OTHER, SELFPAY ==
[2023-02-11 16:53] LABS: Ferritin 73 ng/mL (8-252); Iron 36 ug/dL (50-170); Iron Binding Capacity,Total 356 ug/dL (250-450); PERCENT IRON SATURATION 10.1 % (15.0-55.0)
== END | disposition home or self-care (01) ==
LOC: LAB 15:01
PROVIDERS: PCP Family Medicine; Referring Provider Internal Medicine Gastroenterology; Visit Provider Internal Medicine Gastroenterology
DX: I48.0 Paroxysmal atrial fibrillation (principal); D64.9 Anemia, unspecified; K20.0 Eosinophilic esophagitis
CPT/HCPCS: 36415; 82728; 83540; 83550

== ENCOUNTER → 2023-03-03 | Outpatient (CLI) | payer MEDICARE, OTHER, SELFPAY ==
--- NOTE | 2023-03-03 11:30 | PET_ITS ---
EXAMINATION: FDG PET/CT INDICATIONS: 73-year-old female with a history of pulmonary nodularity. COMPARISON EXAMINATION: CT of the chest report dated 12/23/2022. INDEX LESION SIZE SUV INTERPRETATION Bilateral hemithorax pulmonary parenchyma ? 1.4 max Quantitative criteria for viable neoplasm are not fulfilled, sequential radiologic investigation recommended TECHNIQUE: Following the intravenous administration of 14.70 mCi of F-18 deoxyglucose via the left wrist, multiplanar image acquisitions of the head, neck, chest, abdomen and pelvis to the level of the midthigh, obtained at one-hour post radiopharmaceutical administration contemporaneously interpreted with the current CT of the head, neck, chest, abdomen and pelvis dated 03/03/[address] of the chest report dated 12/23/2022 via coregistration reveal: SERUM GLUCOSE LEVEL: 152 mg/dL HEIGHT: 68 inches WEIGHT: 160 pounds FINDINGS: HEAD/NECK: There is no evidence of abnormal increased glucose metabolism in the pharyngeal mucosal space, parapharyngeal space, oropharynx, bilateral-lateral and anterior neck, hypopharynx and distribution of the larynx. The visualized portion of the cerebral cortical-subcortical structures demonstrate symmetric and preserved glucose metabolism. CHEST: Several foci of increased radiopharmaceutical concentration are subtly apparent in the bilateral hemithorax pulmonary parenchyma generating a calculated standard uptake value of 1.4. Quantitative criteria for viable neoplasm are not fulfilled. There is visualized radiopharmaceutical concentration noted in the left ventricular myocardium, consistent with the [place]. Prominent uptake is noted in the descending thoracic aorta commensurate with activated leukocytes associated with atherosclerotic plaque formation. CT of the chest demonstrates the following anatomic characteristics: Atherosclerotic calcification is defined in the thoracic aorta without evidence of dilatation, aneurysm formation. Coronary arterial calcification is observed. Right-left axillary soft tissue densities with fatty hilus are ametabolic. Intralobular emphysematous changes are noted in the bilateral upper lung zones. Interstitial change defined in the right posterior lung zone demonstrates no evidence of quantitatively significant increased FDG uptake. ABDOMEN/PELVIS: Normal physiologic distribution of the radiopharmaceutical is identified in the hepatic (3.6) and splenic parenchyma, both renal units, urinary bladder, and visualized intestinal tract. Diffuse intestinal tract is identified in all four quadrants of the abdomen and pelvis. CT of the abdomen and pelvis is remarkable for the following: Atherosclerotic calcification is defined in the abdominal aorta without evidence of dilatation, aneurysm formation. Pelvic arterial calcification is observed. Occasional colonic diverticula are encountered without evidence of diverticulitis. Bilateral fat-containing inguinal hernias are noted. Right and left inguinal soft tissue densities are ametabolic. Calcification is noted in the region of the left adnexa without evidence of increased FDG uptake. SKELETAL: There is no evidence of quantitatively significant enhanced glucose metabolism on meticulous inspection of the appendicular and axial skeletal structures. Degenerative changes defined in the thoracic and lumbar spine demonstrate no evidence of increased glucose metabolism. There are no sclerotic, mixed sclerotic-lytic, or primarily lytic changes defined in the axial skeletal structures with evidence of increased FDG uptake. PET/PET/CT Tumor Base -Thigh Init IMPRESSION: 1. NEGATIVE EXAMINATION. There is no definitive quantitatively significant scintigraphic evidence of recurrent-viable neoplasm. 2. Increased radiopharmaceutical concentration manifest in the bilateral hemithorax pulmonary parenchyma do not fulfill quantitative criteria for viable neoplasm. (Kirby et al, Journal of Nuclear Medicine, 32:1, 1991). 3. Anatomic stability may be ensured with repeat CT of the thorax in 3-6 months if clinically indicated to ensure involution, stability. (Stefani, Seminars in Thoracic and Cardiovascular surgery, 14:292, 2002). Electronic Signature Juan David Carlson D.O. Accurate Quantification of SUVs for this report are calculated using the exclusive [employer]. (U.S. Patent No. [phone] [phone] B2 [phone] [place] patent [phone]). Standardization and correction of the FDG SUV metric via [employer] technology allow for vendor non-specific objective quantitative examination comparison and optimization of the sensitivity and specificity of the FDG PET-CT examination. Electronically Signed: Juan David Carlson, at 7:48 EDT ,
== END | disposition home or self-care (01) ==
LOC: ONC 09:57
PROVIDERS: PCP Family Medicine; Referring Provider Internal Medicine Pulmonary Disease; Visit Provider Internal Medicine Pulmonary Disease
DX: R91.8 Other nonspecific abnormal finding of lung field (principal)
CPT/HCPCS: 78815; A9552

== ENCOUNTER → 2023-03-06 | Outpatient (CLI) | payer MEDICARE, OTHER, SELFPAY ==
--- NOTE | 2023-03-06 12:55 | NM_ITS ---
CLINICAL: 73-year-old female with history of clinical gastroparesis. SEMI-SOLID PHASE 99m Tc SULFUR COLLOID GASTRIC EMPTYING STUDY COMPARISON: None available FINDINGS: The patient was administered 1.1 mCi of 99m Tc sulfur colloid mixed with oatmeal and consumed per os. Image acquisitions in the anterior-posterior projections were obtained for 60 minutes. There is prompt visualization of the stomach. There is no gastroesophageal reflux identified. First order kinetics are maintained throughout the duration of the acquisitions. The T ? linear fit was calculated to be 75.66 minutes, (Normal: 12-56 minutes). NM/Gastric Emptying Study IMPRESSION: 1. ABNORMAL 99m Tc sulfur colloid semi-solid phase (oatmeal) gastric emptying imaging examination. A. There is delayed semi-solid phase gastric emptying compared to normal controls with maintained first order kinetics throughout all components of the examination. (Gwendolyn et al, J Nucl Med Tech 38: 186, 2010). Electronically Signed: Juan David Carlson, at 9:36 EDT ,
== END | disposition home or self-care (01) ==
LOC: NM 12:54
PROVIDERS: PCP Family Medicine; Referring Provider Internal Medicine Gastroenterology; Visit Provider Internal Medicine Gastroenterology
DX: K31.84 Gastroparesis (principal)
CPT/HCPCS: 78264; A9537

== ENCOUNTER → 2023-05-19 | Outpatient (CLI) | payer MEDICARE, OTHER, SELFPAY ==
--- NOTE | 2023-05-19 14:12 | CT_ITS ---
EXAM: CT CHEST WITHOUT INTRAVENOUS CONTRAST CLINICAL INDICATION: PULMONARY NODULE TECHNIQUE: Helically acquired images were obtained of the chest without intravenous contrast. This CT exam was performed using one or more of the following dose reduction techniques: automated exposure control, adjustment of the mA and/or kV according to patient size, and/or use of iterative reconstruction technique. COMPARISON: 01/02/2023 FINDINGS: LUNGS AND PLEURAL SPACES: There is a more linear slightly spiculated nodule seen within the left upper lobe that measures 2.1 x 0.6 x 1.5 cm. This nodule was not present on the previous exam and is suspicious for malignancy. Best seen on series 602 image 115. There are emphysematous changes in lung apices. There are noncalcified nodules seen within the left upper lobe and superior segment of the left lower lobe. No pleural effusion or thickening. No pneumothorax. HEART: There are mild coronary artery calcifications present. Heart size is normal. No pericardial effusion. MEDIASTINUM: Unremarkable. No mediastinal or hilar adenopathy. Esophagus is unremarkable. No hiatal hernia. THYROID: Unremarkable. No thyroid lesions. BONES/JOINTS: Unremarkable. No suspicious lytic or blastic abnormality. VASCULATURE: See above. CT/Chest without Contrast IMPRESSION: Multiple noncalcified nodules within the left upper lobe. There is a large spiculated nodule present within the left upper lobe abutting the fissure on today''s exam which was not present on the previous exam and may represent malignancy. There is no focal consolidation or effusion. Electronically Signed: Jeremy Tinajero MD at 0:02 EDT ,
== END | disposition home or self-care (01) ==
LOC: CT 14:11
PROVIDERS: PCP Family Medicine; Referring Provider Internal Medicine Pulmonary Disease; Visit Provider Internal Medicine Pulmonary Disease
DX: R91.1 Solitary pulmonary nodule (principal)
CPT/HCPCS: 71250

== ENCOUNTER → 2023-06-08 | Outpatient (CLI) | payer MEDICARE, OTHER, SELFPAY ==
[2023-06-08 18:33] LABS: Anion Gap 10 (5-15); BUN 12 mg/dL (7-18); BUN/Creat Ratio 14.1 RATIO (10-20); Calcium,Total 9.7 mg/dL (8.5-10.1); Chloride 100 mmol/L (98-107); Cholesterol 185 mg/dL (200); Creatinine, Serum 0.85 mg/dL (0.55-1.02); EST Glomerular Filtration Rate 70 mL/min (>60); Est Glom Filt Rate - Afr Amer 85 mL/min (>60); Glucose 152 mg/dL (74-106); High Density Lipoprotein 48 mg/dL; Potassium 3.9 mmol/L (3.5-5.1); Sodium Level 136 mmol/L (136-145); Triglycerides 254 mg/dL; Very Low Density Lipoprotein 51 mg/dL (5-40)
== END | disposition home or self-care (01) ==
PROVIDERS: PCP Family Medicine; Referring Provider Family Medicine; Visit Provider Family Medicine
DX: I10 Essential (primary) hypertension (principal)
CPT/HCPCS: 36415; 80048; 80061

== ENCOUNTER → 2023-06-25 | Outpatient (CLI) | payer MEDICARE, OTHER, SELFPAY | END | disposition home or self-care (01) | LOC: LABSPEC 10:15 | PROVIDERS: PCP Family Medicine; Referring Provider Family Medicine; Visit Provider Family Medicine | DX: R30.0 Dysuria (principal) | CPT/HCPCS: 87086; 87088; 87186 ==

== ENCOUNTER 2023-07-22 09:44 | Inpatient (IN) | payer MEDICARE, OTHER, SELFPAY ==
[2023-07-22] VITALS (12 sets, daily range): BP systolic 101–144; BP diastolic 58–126; PULSE 70–128; RESP 18–21; TEMP 36.3–36.8; O2SAT 88–98; BMI 30.7; BMI 25.7
[2023-07-22] MEDS: fentaNYL 100 MCG/2 ML Ampul 50 MCG IV (10:02)
--- NOTE | 2023-07-22 10:18 | EDS_ITS ---
HPI History of Present Illness Chief Complaint: Shortness of Breath Detail of Chief Complaint: Pneumothorax Informant: patient Narrative Narrative: Patient presents from radiology secondary to iatrogenic pneumothorax. She had a lung biopsy performed this morning and now has a left-sided pneumothorax. [facility] Medical History Abnormal stress test Ambulates with cane Anemia Arthritis Atherosclerotic heart disease of [place] coronary artery without angina pectoris Cardiology follow-up encounter COVID-19 Diabetes Diabetes mellitus Dietary restriction Emphysema, unspecified Former smoker Frequent urinary tract infections Gastric reflux Hematuria High cholesterol History of atrial fibrillation History of diabetes mellitus History of diverticulitis History of echocardiogram History of GI bleed History of left heart catheterization (LHC) (~11/11/22) History of stress test History of ulceration Hypertension Legionnaires' disease Low iron Paroxysmal A-fib Shortness of breath on exertion Tobacco abuse Type 1 diabetes Wears glasses Wears partial dentures Home Medications alendronate 70 mg tablet 70 mg PO MO Osteoporosis 05/18/22 [History Last Taken 06/02/22] metformin 500 mg tablet 500 mg PO DAILY DIABETES 05/18/22 [History Last Taken 06/06/22] midodrine 5 mg tablet 10 mg (2 x 5 mg) PO TIDCM 30 days #180 tabs 07/30/22 [Rx Last Taken 01/27/23 03:45] pantoprazole 40 mg tablet,delayed release 40 mg PO BID GERD 30 days #60 tabs 07/30/22 [Rx Last Taken 01/27/23 03:45] polysaccharide iron complex 150 mg iron capsule (Ferrex) 150 mg PO DAILY 30 days #30 caps 07/30/22 [Rx Last Taken Unknown] cholecalciferol (vitamin D3) 50 mcg (2,000 unit) tablet 50 mcg PO DAILY 09/23/22 [History Last Taken Unknown] metoprolol tartrate 25 mg tablet 25 mg PO BIDCM 09/23/22 [History Last Taken 01/27/23 03:45] atorvastatin 40 mg tablet 40 mg PO QHS Cholestrol #90 tabs 11/11/22 [Rx Last Taken Unknown] potassium chloride 20 mEq tablet,extended release(part/cryst) (Klor-Con M) 20 meq PO BIDCM 30 days #60 tabs 11/14/22 [Rx Last Taken Unknown] apixaban 5 mg tablet (Eliquis) 5 mg PO BID #180 tabs 12/11/22 [Rx Last Taken Unknown] Allergy/AdvReac Type Severity Reaction Status Date / Time Sulfa (Sulfonamide Allergy Unknown GI issues Verified 06/24/23 13:16 Antibiotics) Family History Uncle Heart disease Uncle Heart disease Surgical History History of cardiac catheterization Hx of esophagogastroduodenoscopy Social History household members: spouse Smoking Status: Former smoker alcohol intake: never substance use type: does not use caffeine: Yes Type: coffee Number of servings: 2 ROS ROS ED Constitutional Constitutional ED: Denies chills or fever(s) Eyes Eyes: Denies change in vision or discharge from eye(s) ENT ENT ED: Denies discharge from eye(s), rhinorrhea or sore throat Cardiovascular Cardiovascular: Reports chest pain; Denies palpitations Respiratory/Chest Respiratory/Chest: Reports dyspnea; Denies cough Gastrointestinal Gastrointestinal: Denies abdominal pain, nausea or vomiting Genitourinary Genitourinary ED: Denies dysuria Musculoskeletal Musculoskeletal: Denies back pain or extremity pain Integumentary Denies Abrasions or rash Neurologic Neurologic: Denies headache(s) or weakness Psychiatric Psychiatric: Denies anxiety or depression Allergic/Immunologic Allergic/Immunologic ED: Denies lip swelling or urticaria EXAM Physical Exam Const Vital Signs: 07/22/23 09:45 07/22/23 09:47 07/22/23 10:22 Temperature 97.8 F Temperature Source Temporal Pulse Rate 89 70 Respiratory Rate 21 H 18 Respiratory Effort Short of Breath Labored Respiratory Depth Shallow Respiratory Pattern Tachypnea Blood Pressure 144/126 H 101/75 Blood Pressure Mean 132 83 Pulse Ox 91 93 Oxygen Delivery Method Nasal Cannula Nasal Cannula Nasal Cannula Oxygen Flow Rate (L/min) 3 3 3 07/22/23 10:35 07/22/23 11:06 07/22/23 11:07 Temperature Temperature Source Pulse Rate 110 H Respiratory Rate Respiratory Effort Respiratory Depth Respiratory Pattern Blood Pressure 114/75 Blood Pressure Mean 88 Pulse Ox 98 88 91 Oxygen Delivery Method Nasal Cannula Room Air Nasal Cannula Oxygen Flow Rate (L/min) 2 2 Positive well nourished and well developed General Appearance ED: well developed HEENT Reports normocephalic and head/scalp atraumatic Eyes PERRL and EOMs intact bilaterally Neck supple Chest Wall inspection of chest normal and palpation of chest normal Resp Resp Narrative: Diminished breath sounds left side. Cardio regular rate and regular rhythm GI non-tender Palpation: soft Extremity normal to inspection Neuro oriented x3 and no sensory deficits noted Sensorium / Orientation: alert Motor Exam: strength 5/5 throughout Psych mental status grossly normal Skin no rashes or lesions noted MDM MDM MDM Narrative Medical decision making narrative: X-rays from radiology reviewed. Patient does have a left sided pneumothorax interpretation. Radiology estimates this to be 15%. Patient is given fentanyl for pain. Patient is consented for left-sided chest tube placement. 7 cc 1% lidocaine are used to anesthetize the skin and subcutaneous tissues. Pigtail catheter is inserted and tied in place. Repeat chest x-ray per my interpretation reveals lung reexpansion. Radiology interpretation is reviewed and agrees. We attempted to get the patient off of excision as she is not on this at home. When turning the oxygen off her O2 sat dropped to 87 to 88%. At this time she is comfortable on 2 L and satting 93%. I spoke with Dr. Germain, on-call for pulmonary. He will see the patient in consult and I will speak with hospitalist regarding admission. Radiography Diagnostic Testing: Clinical Impression(s) from Imaging Studies Chest X-Ray 07/22/23 10:18 IMPRESSION: Status post small-caliber chest tube placement and left hemithorax. No residual pneumothorax is seen. Electronically Signed: Paul Moctezuma MD at 10:27 EDT , Discharge Plan Triage Chief Complaint: Shortness of Breath ED Provider: Tamela Armendariz Dx/Rx/DC Orders Clinical Impression: Iatrogenic pneumothorax, Status post chest tube placement Prescriptions: No Action cholecalciferol (vitamin D3) 50 mcg (2,000 unit) tablet 50 mcg PO DAILY metoprolol tartrate 25 mg tablet 25 mg PO BIDCM metformin 500 mg tablet 500 mg PO DAILY Patient Comments: TAKE 1 TABLET BY MOUTH ONCE DAILY alendronate 70 mg tablet 70 mg PO MO Patient Comments: TAKE 1 TABLET BY MOUTH ONCE A WEEK. TAKE BEFORE FOOD OR DRINK AND SIT UPRIGHT FOR 30 MINUTES AFTER TAKING polysaccharide iron complex [Ferrex 150] 150 mg iron Capsule 150 mg PO DAILY 30 Days Qty: 30 0RF midodrine 5 mg Tablet 10 mg PO TIDCM 30 Days Qty: 180 0RF pantoprazole 40 mg tablet,delayed release (DR/EC) 40 mg PO BID 30 Days Qty: 60 0RF atorvastatin 40 mg tablet 40 mg PO QHS Qty: 90 4RF potassium chloride [Klor-Con M20] 20 mEq tablet,ER particles/crystals 20 meq PO BIDCM 30 Days Qty: 60 12RF Eliquis 5 mg tablet 5 mg PO BID Qty: 180 4RF Primary Care Provider: Misael Molina Referrals: Misael Molina MD [Primary Care Provider] - Disposition Disposition: Acute Care Hospital [facility]
--- NOTE | 2023-07-22 10:18 | RAD_ITS ---
STUDY: X-RAY CHEST REASON FOR EXAM: Female, 73 years old. Chest tube TECHNIQUE: Single AP portable view of the chest. COMPARISON: Comparison is made with prior study done earlier in the day. FINDINGS: A small caliber left-sided chest tube has been placed with the tip in the lateral midportion of the left hemithorax. No evidence of pneumothorax at this time. Mild degree of the subcutaneous emphysema overlying the axillary region on the left side. RAD/Chest 1 View (Portable) IMPRESSION: Status post small-caliber chest tube placement and left hemithorax. No residual pneumothorax is seen. Electronically Signed: Paul Moctezuma MD at 10:27 EDT ,
[2023-07-22] MEDS: fentaNYL 100 MCG/2 ML Ampul 25 MCG IV (10:43)
[2023-07-22] MEDS: Metoprolol Tartrate 25 MG Tablet PO (11:44)
[2023-07-22] MEDS: Midodrine HCl 5 MG Tablet 10 MG PO ×2 (13:47→16:37)
[2023-07-22] MEDS: oxyCODONE 5 MG Tablet 10 MG PO ×2 (13:47→18:15)
--- NOTE | 2023-07-22 16:23 | HP.PCM.HOS_ITS ---
HPI - General General Date of Admission: 07/22/23 Date of Service: 07/22/23 Chief Complaint: Left pneumothorax HPI Narrative CARMEN MILLER, is a 73 F who presents to the emergency room at [facility] after undergoing a fine-needle biopsy under CT of the left lung mass, following the procedure, x-rays reveal a left pneumothorax which was around 15%, she was sent to the emergency room for evaluation. CBC was obtained and was unremarkable, patient required 3 L via nasal cannula to maintain her pulse ox above 90%. A pigtail catheter was inserted on the left and a repeat chest x-ray reveals lung expansion. Patient still required 2 L of oxygen to maintain her pulse ox above 90%. Patient will be admitted to [facility] and seen in consultation by Dr. Terry. [facility] Medical History Abnormal stress test Ambulates with cane Anemia Arthritis Atherosclerotic heart disease of [place] coronary artery without angina pectoris Cardiology follow-up encounter COVID-19 Diabetes Diabetes mellitus Dietary restriction Emphysema, unspecified Former smoker Frequent urinary tract infections Gastric reflux Hematuria High cholesterol History of atrial fibrillation History of diabetes mellitus History of diverticulitis History of echocardiogram History of GI bleed History of left heart catheterization (LHC) (~11/11/22) History of stress test History of ulceration Hypertension Legionnaires' disease Low iron Paroxysmal A-fib Shortness of breath on exertion Tobacco abuse Type 1 diabetes Wears glasses Wears partial dentures Home Medications alendronate 70 mg tablet 70 mg PO MO Osteoporosis 05/18/22 [History Last Taken 06/02/22] metformin 500 mg tablet 500 mg PO DAILY DIABETES 05/18/22 [History Last Taken 06/06/22] midodrine 5 mg tablet 10 mg (2 x 5 mg) PO TIDCM blood pressure 30 days #180 tabs 07/30/22 [Rx Last Taken 01/27/23 03:45] pantoprazole 40 mg tablet,delayed release 40 mg PO BID GERD 30 days #60 tabs 07/30/22 [Rx Last Taken 01/27/23 03:45] polysaccharide iron complex 150 mg iron capsule (Ferrex) 150 mg PO DAILY anemia 30 days #30 caps 07/30/22 [Rx Last Taken Unknown] cholecalciferol (vitamin D3) 50 mcg (2,000 unit) tablet 50 mcg PO DAILY supplement 12/06/22 [History Last Taken Unknown] metoprolol tartrate 25 mg tablet 6.25 mg PO BIDCM afib 09/23/22 [History Last Taken 01/27/23 03:45] potassium chloride 20 mEq tablet,extended release(part/cryst) (Klor-Con M) 20 meq PO BIDCM supplement 30 days #60 tabs 11/14/22 [Rx Last Taken Unknown] apixaban 5 mg tablet (Eliquis) 5 mg PO BID blood thinner #180 tabs 12/11/22 [Rx Last Taken Unknown] atorvastatin 40 mg tablet 20 mg PO QHS Cholestrol 07/22/23 [History Last Taken Unknown] Allergy/AdvReac Type Severity Reaction Status Date / Time Sulfa (Sulfonamide Allergy Unknown GI issues Verified 06/24/23 13:16 Antibiotics) Family History Uncle Heart disease Uncle Heart disease Surgical History History of cardiac catheterization Hx of esophagogastroduodenoscopy Social History household members: spouse Smoking Status: Former smoker alcohol intake: never substance use type: does not use caffeine: Yes Type: coffee Number of servings: 2 ROS Constitutional Constitutional: Denies anorexia, change in weight, chills, fatigue, fever(s), night sweats or weakness Eyes Eyes: Denies blurry vision, change in vision, discharge from eye(s) or eye pain Cardiovascular Cardiovascular: Denies chest pain, claudication, edema or palpitations Respiratory/Chest Respiratory/Chest: Reports cough and hemoptysis; Denies dyspnea, shortness of breath at rest or shortness of breath with exertion Gastrointestinal Gastrointestinal: Denies abdominal pain, coffee ground emesis, constipation, diarrhea, hematemesis, hematochezia, melena, nausea or vomiting Genitourinary Genitourinary: Denies dysuria, hematuria, urinary frequency, urinary hesitancy, urinary incontinence or urinary urgency Musculoskeletal Musculoskeletal: Denies back pain, joint pain, joint stiffness, joint swelling, myalgias or neck pain Neurologic Neurologic: Denies abnormal gait, abnormal speech, dizziness, focal weakness, headache(s), loss of vision, numbness, other visual disturbances, paresthesias, syncope or tingling Psychiatric Psychiatric: Denies anxiety, cognitive impairment, depression, irritability, mood swings or suicidal ideation Endocrine Endocrinology: Denies change in body appearance, cold intolerance, excessive sweating, heat intolerance, polydipsia or polyuria Hematologic/Lymphatic Hematologic/Lymphatic: Denies none, anemia, easy bleeding, easy bruising or lymphadenopathy Allergic/Immunologic Allergic/Immunologic: Denies rhinitis, urticaria, eczemia or asthma Vital Signs Vital Signs Vital Signs: 07/22/23 09:45 07/22/23 09:47 07/22/23 10:22 Temperature 97.8 F Temperature Source Temporal Pulse Rate 89 70 Respiratory Rate 21 H 18 Respiratory Effort Short of Breath Labored Respiratory Depth Shallow Respiratory Pattern Tachypnea Blood Pressure 144/126 H 101/75 Blood Pressure Mean 132 83 Blood Pressure Source Blood Pressure Position Blood Pressure Location Pulse Ox 91 93 Oxygen Delivery Method Nasal Cannula Nasal Cannula Nasal Cannula Oxygen Flow Rate (L/min) 3 3 3 07/22/23 10:35 07/22/23 11:06 07/22/23 11:07 Temperature Temperature Source Pulse Rate 110 H Respiratory Rate Respiratory Effort Respiratory Depth Respiratory Pattern Blood Pressure 114/75 Blood Pressure Mean 88 Blood Pressure Source Blood Pressure Position Blood Pressure Location Pulse Ox 98 88 91 Oxygen Delivery Method Nasal Cannula Room Air Nasal Cannula Oxygen Flow Rate (L/min) 2 2 07/22/23 11:34 07/22/23 12:43 07/22/23 13:30 Temperature 98.3 F 97.8 F Temperature Source Temporal Oral Pulse Rate 128 H 96 81 Respiratory Rate 19 H 20 H 18 Respiratory Effort Respiratory Depth Respiratory Pattern Blood Pressure 120/73 103/58 L 120/73 Blood Pressure Mean 88 73 88 Blood Pressure Source Monitor Blood Pressure Position Semi-Fowlers Blood Pressure Location Left Arm Pulse Ox 95 90 95 Oxygen Delivery Method Nasal Cannula Nasal Cannula Nasal Cannula Oxygen Flow Rate (L/min) 2 2 3 07/22/23 13:37 Temperature Temperature Source Pulse Rate Respiratory Rate Respiratory Effort Normal Non-Labored Respiratory Depth Normal Respiratory Pattern Normal Blood Pressure Blood Pressure Mean Blood Pressure Source Blood Pressure Position Blood Pressure Location Pulse Ox Oxygen Delivery Method Nasal Cannula Oxygen Flow Rate (L/min) 3 Weight Weight: 76.657 kg Body Mass Index (BMI) 25.7 Physical Exam Const alert, oriented x3, no apparent distress and average body habitus General Appearance: cooperative, well kempt and well developed Orientation / Consciousness: awake, oriented to person, oriented to place and oriented to time HEENT normocephalic, head/scalp atraumatic and moist oral mucous membranes Eyes PERRL, EOMs intact bilaterally and conjunctivae normal Neck supple, no JVD, thyroid normal and no carotid bruits General: trachea midline Resp normal respiratory effort, no retractions and no use of accessory muscles Resp Narrative: Decreased breath sounds bilaterally Auscultation: Negative for rales, rhonchi or wheezes Cardio regular rate, regular rhythm, S1 normal heart sound, S2 normal heart sound, no murmurs, no rub and no gallops GI normal to inspection, nondistended, normoactive bowel sounds, soft to palpation, non-tender and non-distended Extremity no clubbing, cyanosis or edema Skin no rashes or lesions noted General Skin Exam: no breakdown Neuro oriented x3, CN's II-XII intact bilaterally, moves all extremities, no focal motor deficits and no sensory deficits noted Sensorium / Orientation: awake and alert Speech: speech normal Psych affect normal Results Radiology Impression Chest X-Ray 07/22/23 10:18 IMPRESSION: Status post small-caliber chest tube placement and left hemithorax. No residual pneumothorax is seen. Electronically Signed: Paul Moctezuma MD at 10:27 EDT Reading Location ID and State: [address] [place] [address] , Service support , Assessment & Plan Assessment/Plan (1) Iatrogenic pneumothorax: PLAN: Plan 1. Left pneumothorax secondary to left lung CT-guided needle biopsy-patient has a pigtail catheter in place, she was admitted to [facility] status on PCU, she will be seen by pulmonary medicine #2 type 2 diabetes-patient's blood sugars will be monitored, she is on metformin at home, this will be held during her hospitalization #3 paroxysmal atrial fibrillation-patient is off anticoagulation at this time, patient will be on subcu heparin for prophylaxis #4 atherosclerotic heart disease-patient is under medical treatment at this time #5 hyperlipidemia-patient's atorvastatin will be held temporarily while she is h ospitalized, I feel this can be held during her brief hospitalization Total clinical time spent by myself addressing the patient's medical issues, reviewing all of her data, and collaborating with patient's care team: 55 minutes Charges/Coding Visit Charges Inpatient E&M: 76454 Init Hosp L2
[2023-07-22] MEDS: Potassium Chloride Oral Tablet 20 MEQ PO (16:36)
[2023-07-22] MEDS: Insulin Lispro 100 UNIT/ML INSULN.PEN SC ×2 (16:37→23:06)
[2023-07-22] MEDS: Metoprolol Tartrate 25 MG Tablet 6.25 MG PO (16:37)
[2023-07-22 16:50] LABS: Bedside Glucose 173 mg/dL (74-106)
[2023-07-22] MEDS: Pantoprazole Sodium 40 MG Tablet PO (23:10)
[2023-07-22] MEDS: Heparin Injection (Vial) 5,000 UNIT/ML VIAL 5000 UNIT SC (23:11)
[2023-07-22] MEDS: Temazepam 15 MG Capsule PO (23:22)
[2023-07-22 23:51] LABS: Bedside Glucose 150 mg/dL (74-106)
[2023-07-23] VITALS (11 sets, daily range): BP systolic 107–124; BP diastolic 62–88; PULSE 66–89; RESP 15–18; TEMP 35.8–36.8; O2SAT 89–97
[2023-07-23] MEDS: oxyCODONE 5 MG Tablet 10 MG PO ×3 (05:12→22:20)
--- NOTE | 2023-07-23 05:40 | RAD_ITS ---
ACR Level 3 findings have been noted. An addendum which confirms receipt of the report will follow. INDICATION: pneumothorax EXAMINATION/TECHNIQUE: X-RAY - XR Chest 1 View COMPARISON: 07/22/2023. FINDINGS: Collapse of the left lung. The lungs are otherwise unchanged. Tortuous and calcified thoracic aorta. The heart is mildly enlarged. Large left-sided tension pneumothorax with [id number] tracheal shift. The osseous structures are unchanged. RAD/Chest 1 View (Portable) IMPRESSION: Large left-sided tension pneumothorax with [id number] tracheal shift. Collapse of the left lung. Electronically Signed: Pierre Snyder MD at 17:24 EDT ,
[2023-07-23] MEDS: Insulin Lispro 100 UNIT/ML INSULN.PEN SC ×3 (06:48→22:15)
[2023-07-23 07:11] LABS: Bedside Glucose 163 mg/dL (74-106)
--- NOTE | 2023-07-23 08:45 | RAD_ITS ---
STUDY: X-RAY CHEST REASON FOR EXAM: Female, 73 years old. Chest tube placement TECHNIQUE: Single AP portable view of the chest. COMPARISON: Comparison is made with prior study done earlier today at 5:39 AM. FINDINGS: The large caliber left-sided chest tube has been placed with the tip in the medial aspect of the lower left hemithorax. Minimal residual left apical pneumothorax. Subcutaneous emphysema is seen overlying the left chest wall. Normal size heart. Normal mediastinum and ann. Normal visualized pulmonary arteries. There is atherosclerotic calcification of the aortic arch with tortuosity. There are diffuse degenerative changes of the visualized thoracic spine. Normal visualized ribs, clavicles, and shoulders. There is no demonstrated abnormality of the visualized soft tissue structures of the upper abdomen. RAD/Chest 1 View (Portable) IMPRESSION: Status post placement of a large caliber chest tube with the tip in the medial aspect of the left lower hemithorax with minimal residual left apical pneumothorax. Left-sided subcutaneous emphysema. Electronically Signed: Paul Moctezuma MD at 9:03 EDT ,
[2023-07-23] MEDS: Morphine 2 MG/ML Syringe IV (08:54)
[2023-07-23] MEDS: 0.9% Saline Lock 10 ML Syringe IV (08:57)
[2023-07-23] MEDS: Potassium Chloride Oral Tablet 20 MEQ PO ×2 (09:04→16:39)
[2023-07-23] MEDS: Metoprolol Tartrate 25 MG Tablet 6.25 MG PO ×2 (09:05→16:39)
[2023-07-23] MEDS: Midodrine HCl 5 MG Tablet 10 MG PO ×2 (09:06→16:40)
--- NOTE | 2023-07-23 09:13 | CON.PCM.SX_ITS ---
Assessment & Plan Assessment/Plan (1) Iatrogenic pneumothorax: PLAN: This is a 73-year-old female with a longstanding smoking history and suspicious left lung nodule who underwent biopsy by radiology yesterday that was complicated by formation of an iatrogenic pneumothorax. Emergency medicine placed a pigtail catheter in the patient's left pleural space to address this issue, however, on repeat chest x-ray this morning patient had complete collapse of her left lung with apparent tension phenomena. I am making this observation I recommended emergent left thoracostomy and described the procedure to patient along with pulmonary medicine, Dr. Terry. Procedure was then undertaken in uncomplicated fashion at bedside. Postprocedure chest x-ray showed near complete resolution of patient's pneumothorax and appropriate position of the left chest tube in the lower aspect of the pleural cavity. Ongoing plan to include: ? Continuous suction to Pleur-evac at -20 cm of water ? Monitor for signs of air leak in Pleur-evac system and monitor for connection of chest tube to Pleur-evac system ? Telemetry ? Daily chest x-ray ? Recommend protein supplementation ? Incentive spirometry HPI Consult Data Date of Consult: 07/23/23 HPI Narrative Reason for Consultation: Worsening pneumothorax HPI Narrative: CARMEN MILLER, is a 73 F who underwent lung biopsy yesterday with radiology complicated by an iatrogenic pneumothorax. A pigtail catheter was placed by emergency medicine and patient was admitted to the hospitalist service. Patient is under the ongoing care of Dr. Terry of pulmonary medicine. Hospitalist service stated that they had informed Dr. Terry of concern for worsening pneumothorax this morning on routine chest x-ray. They did note that patient had an increasing oxygen requirement from 2 L/min to 5 L/min but otherwise did not appear to be in significant distress. However, after reviewing patient's chest x-ray?at that time not yet read by radiology?I found a complete collapse of the left lung and associated tension phenomenon with rightward translation of the bronchial tree. [facility] Medical History Abnormal stress test Ambulates with cane Anemia Arthritis Atherosclerotic heart disease of [place] coronary artery without angina pectoris Cardiology follow-up encounter COVID-19 Diabetes Diabetes mellitus Dietary restriction Emphysema, unspecified Former smoker Frequent urinary tract infections Gastric reflux Hematuria High cholesterol History of atrial fibrillation History of diabetes mellitus History of diverticulitis History of echocardiogram History of GI bleed History of left heart catheterization (LHC) (~11/11/22) History of stress test History of ulceration Hypertension Legionnaires' disease Low iron Paroxysmal A-fib Shortness of breath on exertion Tobacco abuse Type 1 diabetes Wears glasses Wears partial dentures Home Medications alendronate 70 mg tablet 70 mg PO MO Osteoporosis 05/18/22 [History Last Taken 06/02/22] metformin 500 mg tablet 500 mg PO DAILY DIABETES 05/18/22 [History Last Taken 06/06/22] midodrine 5 mg tablet 10 mg (2 x 5 mg) PO TIDCM blood pressure 30 days #180 tabs 07/30/22 [Rx Last Taken 01/27/23 03:45] pantoprazole 40 mg tablet,delayed release 40 mg PO BID GERD 30 days #60 tabs 07/30/22 [Rx Last Taken 01/27/23 03:45] polysaccharide iron complex 150 mg iron capsule (Ferrex) 150 mg PO DAILY anemia 30 days #30 caps 07/30/22 [Rx Last Taken Unknown] cholecalciferol (vitamin D3) 50 mcg (2,000 unit) tablet 50 mcg PO DAILY supplement 09/23/22 [History Last Taken Unknown] metoprolol tartrate 25 mg tablet 6.25 mg PO BIDCM afib 09/23/22 [History Last Taken 01/27/23 03:45] potassium chloride 20 mEq tablet,extended release(part/cryst) (Klor-Con M) 20 meq PO BIDCM supplement 30 days #60 tabs 11/14/22 [Rx Last Taken Unknown] apixaban 5 mg tablet (Eliquis) 5 mg PO BID blood thinner #180 tabs 12/11/22 [Rx Last Taken Unknown] atorvastatin 40 mg tablet 20 mg PO QHS Cholestrol 07/22/23 [History Last Taken Unknown] Allergy/AdvReac Type Severity Reaction Status Date / Time Sulfa (Sulfonamide Allergy Unknown GI issues Verified 06/24/23 13:16 Antibiotics) Family History Uncle Heart disease Uncle Heart disease Surgical History History of cardiac catheterization Hx of esophagogastroduodenoscopy Social History household members: spouse Smoking Status: Former smoker alcohol intake: never substance use type: does not use caffeine: Yes Type: coffee Number of servings: 2 Physical Exam Const alert and no apparent distress General Appearance: cooperative Resp Resp Narrative: Patient mildly tachypneic but without signs of respiratory distress. A pigtail catheter had been inserted in patient's left chest and appeared to be slightly withdrawn. There is also coiling of the majority of the tube along patient's left side providing downward traction on the tube. I did not visualize any apparent air leak in the patient's Pleur-evac system. Between the patient's chest tube and Pleur-evac system she did have a Heimlich flutter valve inserted and series with the circuit. Lab / Micro Data Labs: Laboratory Results - last 24 hr 07/22/23 16:30: POC Glucose 173 H 07/22/23 23:04: POC Glucose 150 H 07/23/23 06:46: POC Glucose 163 H Radiology Impression Chest X-Ray 07/22/23 10:18 IMPRESSION: Status post small-caliber chest tube placement and left hemithorax. No residual pneumothorax is seen. Electronically Signed: Paul Moctezuma MD at 10:27 EDT , Chest X-Ray 07/23/23 08:45 IMPRESSION: Status post placement of a large caliber chest tube with the tip in the medial aspect of the left lower hemithorax with minimal residual left apical pneumothorax. Left-sided subcutaneous emphysema. Electronically Signed: Paul Moctezuma MD at 9:03 EDT , Charges/Coding Visit Charges Inpatient E&M: 37842 Init Hosp L2
--- NOTE | 2023-07-23 11:30 | CASEMGMT ---
RN?CM?FLOOR RENOVATOR?CM?to room to meet with patient for initial transition planning/care coordination?assessment.?RN?CM?introduced self and role at [facility].? Pt voices understanding and consents to?assessment?at this time.? Pt resting in bed in no distress at this time.? Pt is A/O at this time and answers all questions appropriately.?? Care providers, pharmacy, and demographics verified/updated at this time. PCP: Dr Molina Specialists: Dr Terry-pulmonology, Dr Mcmanus-GI, [facility]/Cardiology, Dr Browne-urology Preferred Pharmacy: [facility] Retail Insurance: MCR, MMO Prescription Benefit:?Yes Living Will/HPOA:? Pt does not currently have LW but does have HCPOA, who is her dtrNoni. LNOK: Dtr/POANoni. Dtr, Tamela. Son. , Kody. Living Arrangements: Pt lives with in a two story home, but is currently a patient in [facility]. FFSU. 1-2 steps to enter home with a rail. Independent w/ADL's and IADL's and does most home mgnt tasks. DtrNoni, manages pt's medications. Transportation:?Pt states drives self and states no transportation concerns at this time.?Family can assist if needed. DME: States has the following DME:?cane, pulse ox, O2 through [employer] @ 1 L/M @ HS only. Has only concentrator. ?Pt states no need for further DME at this time.? HHC/SNF: Hx of going to [facility] and [facility] TCU. Pt has had [facility] HHC in the past. Pt denies wanting HHC. She states she has been getting OOB to go to the bathroom w/assist and feels close to her baseline. Pt wishes to return home and states has no concerns with going home at time of discharge.? ?CM?to follow for any increase in home oxygen needs and any further discharge planning/needs.? Pt voices no further concerns/needs at this time.? Advised pt to ask for?CM?if any further questions/concerns/needs arise.? Voices understanding. PLAN:??Home. Follow for possible increase in Home O2. Gill MEEKN?RN?CM
[2023-07-23] MEDS: Ketorolac 30 MG/ML Syringe 15 MG IV (11:31)
[2023-07-23] MEDS: Pantoprazole Sodium 40 MG Tablet PO ×2 (11:32→22:17)
[2023-07-23] MEDS: Heparin Injection (Vial) 5,000 UNIT/ML VIAL 5000 UNIT SC ×2 (11:32→22:16)
--- NOTE | 2023-07-23 11:53 | PCM.OP.PRO ---
Procedure Report Date of Procedure: 07/23/23 Procedure name: Insertion of left tube thoracostomy (20 Fr) Procedure in detail : After obtaining verbal consent from patient, the procedure was begun following a brief timeout confirming both the patient and the procedure. The insertion site was selected by identifying the intercostal space in the midaxillary line along the inframammary crease. The chest wall was then locally anesthetized with 14 mL Xylocaine. A scalpel was used to incise the skin with an approximately 2 cm transverse incision. Blunt dissection was used to spread the subcutaneous tissue and underlying intercostal muscle fibers. Then through controlled pressure a Lenka clamp was used to access the pleural cavity. This tract was bluntly spread open and the clamp was exchanged for the chest tube. Chest tube was inserted to a depth of 8 centimeters on the chest tube marking at the skin. There was immediate return of air and thin bloody fluid (but nothing to accumulate significantly in her Pleur-evac system) after the tube was connected to the Pleur-evac collection device. The Pleur-evac was connected to wall suction with a chest tube suction of -20 cmH2O. There no continuous air leak. Chest tube was then tied in with 0 silk suture. The site was dressed with petroleum gauze and regular gauze to pad the skin against the chest tube and this dressing was taped in place with a mesentery at the distal portion of the chest tube to allow for limited movement. A post-procedure chest x-ray was obtained to confirm tube position. Complications: None EBL: 5 mL Procedures Cardiovascular CF Procedures [id number]: [id number] Insertion of chest tube
[2023-07-23 12:04] LABS: Bedside Glucose 140 mg/dL (74-106)
--- NOTE | 2023-07-23 16:41 | PN.HOSP_ITS ---
Reason for Visit Reason for Visit: Diagnoses Postprocedural pneumothorax (07/22/23) Subjective Subjective Patient was seen and examined today, this morning her chest x-ray showed a large pneumothorax on the left, I talked with her hydraulic technician and general surgery, a new chest tube was inserted with reexpansion of the lung. At this time, patient's oxygen requirement is 3 L per nasal cannula Objective Data Objective Data Vital Signs: Vital Signs Temp Pulse Resp BP Pulse Ox O2 Del Method O2 Flow Rate 97 F L 66 15 121/65 H 96 Nasal Cannula 3 07/23/23 16:36 07/23/23 16:39 07/23/23 16:36 07/23/23 16:36 07/23/23 16:36 07/23/23 16:36 07/23/23 16:36 Oxygen Flow Rate (L/min) 3 Oxygen Delivery Method Nasal Cannula Weight: 76.657 kg Body Mass Index (BMI) 25.7 Intake & Output: Intake and Output for Last 24 Hours 07/21/23 07/22/23 07/23/23 23:59 23:59 23:59 Intake Total 240 / 290 150 / 150 Balance 240 / 290 150 / 150 Lab / Micro Data Labs: Laboratory Results - last 24 hr 07/22/23 16:30: POC Glucose 173 H 07/22/23 23:04: POC Glucose 150 H 07/23/23 06:46: POC Glucose 163 H 07/23/23 11:29: POC Glucose 140 H Radiography Diagnostic Testing: Radiology Impression Chest X-Ray 07/23/23 08:45 IMPRESSION: Status post placement of a large caliber chest tube with the tip in the medial aspect of the left lower hemithorax with minimal residual left apical pneumothorax. Left-sided subcutaneous emphysema. Electronically Signed: Paul Moctezuma MD at 9:03 EDT , Physical Exam Narrative alert, oriented x3, no apparent distress and average body habitus General Appearance: cooperative, well kempt and well developed Orientation / Consciousness: awake, oriented to person, oriented to place and oriented to time HEENT normocephalic, head/scalp atraumatic and moist oral mucous membranes Eyes PERRL, EOMs intact bilaterally and conjunctivae normal Neck supple, no JVD, thyroid normal and no carotid bruits General: trachea midline Resp normal respiratory effort, no retractions and no use of accessory muscles Resp Narrative: Decreased breath sounds bilaterally Auscultation: Negative for rales, rhonchi or wheezes Cardio regular rate, regular rhythm, S1 normal heart sound, S2 normal heart sound, no murmurs, no rub and no gallops GI normal to inspection, nondistended, normoactive bowel sounds, soft to palpation, non-tender and non-distended Extremity no clubbing, cyanosis or edema Skin no rashes or lesions noted General Skin Exam: no breakdown Neuro oriented x3, CN's II-XII intact bilaterally, moves all extremities, no focal motor deficits and no sensory deficits noted Sensorium / Orientation: awake and alert Speech: speech normal Psych affect normal Assessment & Plan Assessment/Plan (1) Iatrogenic pneumothorax: PLAN: Plan 1. Left pneumothorax secondary to left lung CT-guided needle biopsy-patient's pigtail catheter was dysfunctional and she had a chest tube inserted today by general surgery, general surgery will continue to participate in her care as well as pulmonary medicine. #2 type 2 diabetes-patient's blood sugars will be monitored, she is on metformin at home, this will be held during her hospitalization #3 paroxysmal atrial fibrillation-patient is off anticoagulation at this time, patient will be on subcu heparin for prophylaxis #4 atherosclerotic heart disease-patient is under medical treatment at this time #5 hyperlipidemia-patient's atorvastatin will be held temporarily while she is hospitalized, I feel this can be held during her brief hospitalization Total clinical time spent by myself addressing the patient's medical issues, reviewing all of her data, and collaborating with patient's care team: 35 minutes Charges/Coding Visit Charges Inpatient E&M: 89511 Subs Hosp L2
[2023-07-23 16:44] LABS: Bedside Glucose 169 mg/dL (74-106)
--- NOTE | 2023-07-23 18:54 | NURSING ---
Chest tube exchanged for larger catheter by general surgery. Repeat CXR obtained
[2023-07-23] MEDS: Temazepam 15 MG Capsule PO (22:20)
[2023-07-23 22:31] LABS: Bedside Glucose 161 mg/dL (74-106)
[2023-07-24] VITALS (7 sets, daily range): BP systolic 116–139; BP diastolic 59–81; PULSE 65–110; RESP 16–18; TEMP 36.4–36.8; O2SAT 93–98
[2023-07-24] MEDS: Ketorolac 30 MG/ML Syringe 15 MG IV (04:45)
[2023-07-24] MEDS: 0.9% Saline Lock 10 ML Syringe IV ×2 (04:49→22:02)
--- NOTE | 2023-07-24 05:35 | RAD_ITS ---
INDICATION: pneumothorax EXAMINATION/TECHNIQUE: X-RAY - portable upright AP chest x-ray COMPARISON: 07/23/2023 FINDINGS: LINES/DEVICES: Left-sided chest tube remains. LUNGS: Trace residual left apical pneumothorax. Hazy airspace opacities at the left lower lung field with minimal blunting of the costophrenic angle. MEDIASTINUM AND CARDIOVASCULAR STRUCTURES: Rotated patient with grossly stable cardiac silhouette. BONES AND SOFT TISSUES: Persistent subcutaneous emphysema along the left chest wall. RAD/Chest 1 View (Portable) IMPRESSION: Persistent minimal residual left apical pneumothorax with chest tube in place. Left basilar infiltrate with possible small pleural effusion. Electronically Signed: Praful Stiles MD at 22:40 EDT ,
[2023-07-24] MEDS: Insulin Lispro 100 UNIT/ML INSULN.PEN SC ×2 (06:32→11:33)
[2023-07-24 06:53] LABS: Bedside Glucose 154 mg/dL (74-106)
--- NOTE | 2023-07-24 08:08 | PN.SURG_ITS ---
Subjective Subjective Patient seen and examined during AM rounds. She denies any acute events overnight. She denies any increase in her shortness of breath. She does have some persistent chest wall pain but it is improved from yesterday. Objective Data Objective Data Vital Signs: Vital Signs Temp Pulse Resp BP Pulse Ox O2 Del Method O2 Flow Rate 97.8 F 84 18 131/76 H 94 Nasal Cannula 3 07/24/23 04:55 07/24/23 04:55 07/24/23 04:55 07/24/23 04:55 07/24/23 04:55 07/24/23 05:06 07/24/23 05:06 Oxygen Flow Rate (L/min) 3 Oxygen Delivery Method Nasal Cannula Weight: 169 lb Body Mass Index (BMI) 25.7 Intake & Output: Intake and Output for Last 24 Hours 07/22/23 07/23/23 07/24/23 23:59 23:59 23:59 Intake Total 240 / 290 150 / 150 100 / 100 Output Total 20 / 20 0 / 0 Balance 240 / 290 130 / 130 100 / 100 Lab / Micro Data Labs: Laboratory Results - last 24 hr 07/23/23 11:29: POC Glucose 140 H 07/23/23 15:58: POC Glucose 169 H 07/23/23 22:11: POC Glucose 161 H 07/24/23 06:30: POC Glucose 154 H Radiography Diagnostic Testing: Radiology Impression Chest X-Ray 07/23/23 05:40 IMPRESSION: Large left-sided tension pneumothorax with [id number] tracheal shift. Collapse of the left lung. Electronically Signed: Pierre Snyder MD at 17:24 EDT , ADDENDUM: 07/23/23 191 IMPRESSION: Large left-sided tension pneumothorax with [id number] tracheal shift. Collapse of the left lung. N.B. : Veronica Warren RN, confirmed on 07/23/2023 19:12:52 (ET) that the healthcare facility has received the radiology report. Electronically Signed: Pierre Snyder MD at 17:24 EDT , Chest X-Ray 07/23/23 08:45 IMPRESSION: Status post placement of a large caliber chest tube with the tip in the medial aspect of the left lower hemithorax with minimal residual left apical pneumothorax. Left-sided subcutaneous emphysema. Electronically Signed: Paul Moctezuma MD at 9:03 EDT , Physical Exam Const oriented x3 and no apparent distress Resp normal respiratory effort Resp Narrative: Chest tube in place relative to the chest wall with no evidence of subcutaneous emphysema on palpation. There is slight clot within the distal aspect of the chest tube which is stripped. There is no evidence of an air leak with patient coughing. Assessment & Plan Assessment/Plan (1) Status post chest tube placement: (2) Iatrogenic pneumothorax: PLAN: This is a 73-year-old female with a longstanding smoking history and suspicious left lung nodule who underwent biopsy by radiology that was complicated by formation of an iatrogenic pneumothorax. Emergency medicine placed a pigtail catheter in the patient's left pleural space to address this issue, however, on repeat chest x-ray the following morning patient had complete collapse of her left lung with apparent tension phenomena. Therefore I placed a 20 [place] left chest tube at bedside and today patient has complete reexpansion of her lung without signs of an air leak. I do not identify any subcutaneous emphysema either. Therefore, we will plan to place patient to waterseal today. Ongoing plan to include: ? Chest tube to waterseal today ? Monitor for signs of air leak in Pleur-evac system and monitor for connection of chest tube to Pleur-evac system ? Telemetry ? Daily chest x-ray ? Recommend protein supplementation ? Continue incentive spirometry Charges/Coding Visit Charges Inpatient E&M: 50176 Subs Hosp L2
[2023-07-24] MEDS: Metoprolol Tartrate 25 MG Tablet 6.25 MG PO ×2 (08:36→16:38)
[2023-07-24] MEDS: Pantoprazole Sodium 40 MG Tablet PO ×2 (08:36→21:54)
[2023-07-24] MEDS: Potassium Chloride Oral Tablet 20 MEQ PO ×2 (08:36→16:38)
[2023-07-24] MEDS: Midodrine HCl 5 MG Tablet 10 MG PO ×3 (08:36→16:38)
[2023-07-24] MEDS: Heparin Injection (Vial) 5,000 UNIT/ML VIAL 5000 UNIT SC (08:37)
[2023-07-24] MEDS: Acetaminophen 325 MG Tablet 650 MG PO ×2 (08:44→15:36)
[2023-07-24] MEDS: oxyCODONE 5 MG Tablet 10 MG PO ×2 (08:44→15:36)
[2023-07-24 11:53] LABS: Bedside Glucose 164 mg/dL (74-106)
[2023-07-24 16:43] LABS: Bedside Glucose 141 mg/dL (74-106)
[2023-07-24] MEDS: Glucerna Shake 120 ML LIQUID PO (16:43)
--- NOTE | 2023-07-24 17:18 | PCM.PN.HOSP ---
Reason for Visit Reason for Visit: Diagnoses Postprocedural pneumothorax (07/22/23) Other artificial opening status (07/22/23) Subjective Subjective Patient was seen and examined today, her x-ray shows continued expansion of her left lung. I talked briefly with general surgery about her care Objective Data Objective Data Vital Signs: Vital Signs Temp Pulse Resp BP Pulse Ox O2 Del Method O2 Flow Rate 97.5 F L 65 18 139/69 H 97 Nasal Cannula 3 07/24/23 15:31 07/24/23 16:38 07/24/23 15:31 07/24/23 15:31 07/24/23 15:31 07/24/23 15:31 07/24/23 15:31 Oxygen Flow Rate (L/min) 3 Oxygen Delivery Method Nasal Cannula Weight: 76.657 kg Body Mass Index (BMI) 25.7 Intake & Output: Intake and Output for Last 24 Hours 07/22/23 07/23/23 07/24/23 23:59 23:59 23:59 Intake Total 240 / 290 150 / 150 500 / 500 Output Total 20 / 20 0 / 0 Balance 240 / 290 130 / 130 500 / 500 Lab / Micro Data Labs: Laboratory Results - last 24 hr 07/23/23 22:11: POC Glucose 161 H 07/24/23 06:30: POC Glucose 154 H 07/24/23 11:32: POC Glucose 164 H 07/24/23 16:22: POC Glucose 141 H Radiography Diagnostic Testing: Radiology Impression Chest X-Ray 07/23/23 05:40 IMPRESSION: Large left-sided tension pneumothorax with [id number] tracheal shift. Collapse of the left lung. Electronically Signed: Pierre Snyder MD at 17:24 EDT , ADDENDUM: 07/23/231918 IMPRESSION: Large left-sided tension pneumothorax with [id number] tracheal shift. Collapse of the left lung. N.B. : Veronica Warren RN, confirmed on 07/23/2023 19:12:52 (ET) that the healthcare facility has received the radiology report. Electronically Signed: Pierre Snyder MD at 17:24 EDT , Physical Exam Const alert, oriented x3, no apparent distress and average body habitus General Appearance: cooperative, well kempt and well developed Orientation / Consciousness: awake, oriented to person, oriented to place and oriented to time HEENT normocephalic, head/scalp atraumatic and moist oral mucous membranes Eyes PERRL, EOMs intact bilaterally and conjunctivae normal Neck supple, no JVD, thyroid normal and no carotid bruits General: trachea midline Resp normal respiratory effort, no retractions, no use of accessory muscles and clear to auscultation bilaterally Auscultation: Negative for rales, rhonchi or wheezes Cardio regular rate, regular rhythm, S1 normal heart sound, S2 normal heart sound, no murmurs, no rub and no gallops GI normal to inspection, nondistended, normoactive bowel sounds, soft to palpation, non-tender and non-distended Extremity no clubbing, cyanosis or edema Skin no rashes or lesions noted General Skin Exam: no breakdown Neuro oriented x3, CN's II-XII intact bilaterally, moves all extremities, no focal motor deficits and no sensory deficits noted Sensorium / Orientation: awake and alert Speech: speech normal Psych affect normal Assessment & Plan Assessment/Plan (1) Iatrogenic pneumothorax: PLAN: Plan 1. Left pneumothorax secondary to left lung CT-guided needle biopsy-continue present treatment per general surgery, patient's left lung is expanded today. #2 type 2 diabetes-patient's blood sugars will be monitored, she is on metformin at home, this will be held during her hospitalization #3 paroxysmal atrial fibrillation-patient is off anticoagulation at this time, patient will be on subcu heparin for prophylaxis #4 atherosclerotic heart disease-patient is under medical treatment at this time #5 hyperlipidemia-patient's atorvastatin will be held temporarily while she is hospitalized, I feel this can be held during her brief hospitalization Total clinical time spent by myself addressing the patient's medical issues, reviewing all of her data, and collaborating with patient's care team: 25 minutes Charges/Coding Visit Charges Inpatient E&M: 48750 [facility] Hosp L1
[2023-07-24] MEDS: Temazepam 15 MG Capsule PO (21:54)
[2023-07-24 22:08] LABS: Bedside Glucose 140 mg/dL (74-106)
[2023-07-25] VITALS (7 sets, daily range): BP systolic 118–131; BP diastolic 58–75; PULSE 65–144; RESP 16–20; TEMP 36.6–37.2; O2SAT 86–96
[2023-07-25] MEDS: oxyCODONE 5 MG Tablet 10 MG PO (03:55)
[2023-07-25] MEDS: Insulin Lispro 100 UNIT/ML INSULN.PEN SC (06:33)
[2023-07-25 06:55] LABS: Bedside Glucose 163 mg/dL (74-106)
--- NOTE | 2023-07-25 08:02 | RAD_ITS ---
INDICATION: pneumothorax EXAMINATION/TECHNIQUE: X-RAY - XR Chest 2 Views COMPARISON: Prior study dated: 07/24/2023. FINDINGS: LINES/DEVICES: Left thoracotomy tube in stable position. LUNGS: Tiny left apical pneumothorax unchanged. Atelectatic changes in the left lung base. MEDIASTINUM AND CARDIOVASCULAR STRUCTURES: Cardiac silhouette not enlarged. Central airways and mediastinal contour are unremarkable. BONES AND SOFT TISSUES: Subcutaneous emphysema unchanged. RAD/Chest PA and Lateral IMPRESSION: No significant change. Electronically Signed: Martínez Dominguez MD at 10:12 EDT ,
[2023-07-25] MEDS: Ketorolac 30 MG/ML Syringe 15 MG IV (08:47)
[2023-07-25] MEDS: 0.9% Saline Lock 10 ML Syringe IV (08:47)
[2023-07-25] MEDS: Heparin Injection (Vial) 5,000 UNIT/ML VIAL 5000 UNIT SC (08:55)
[2023-07-25] MEDS: Potassium Chloride Oral Tablet 20 MEQ PO (08:55)
[2023-07-25] MEDS: Glucerna Shake 120 ML LIQUID PO ×2 (08:55→11:35)
[2023-07-25] MEDS: Midodrine HCl 5 MG Tablet 10 MG PO ×2 (08:56→11:35)
[2023-07-25] MEDS: Pantoprazole Sodium 40 MG Tablet PO (08:56)
[2023-07-25] MEDS: Metoprolol Tartrate 25 MG Tablet 6.25 MG PO (08:56)
--- NOTE | 2023-07-25 09:11 | PCM.PN.SRG ---
Subjective Subjective Patient is doing well with no complaints Objective Data Objective Data Vital Signs: Vital Signs Temp Pulse Resp BP Pulse Ox O2 Del Method O2 Flow Rate 97.8 F 144 H 20 H 131/75 H 92 Nasal Cannula 2 07/25/23 08:51 07/25/23 08:56 07/25/23 08:51 07/25/23 08:51 07/25/23 08:51 07/25/23 08:51 07/25/23 08:51 Oxygen Flow Rate (L/min) 2 Oxygen Delivery Method Nasal Cannula Weight: 169 lb Body Mass Index (BMI) 25.7 Intake & Output: Intake and Output for Last 24 Hours 07/23/23 07/24/23 07/25/23 23:59 23:59 23:59 Intake Total 150 / 150 1000 / 1000 Output Total 450 / 450 200 / 200 Balance 130 / 130 550 / 550 -200 / -200 Lab / Micro Data Labs: Laboratory Results - last 24 hr 07/24/23 11:32: POC Glucose 164 H 07/24/23 16:22: POC Glucose 141 H 07/24/23 21:48: POC Glucose 140 H 07/25/23 06:30: POC Glucose 163 H Physical Exam Const oriented x3 and no apparent distress Resp normal respiratory effort and clear to auscultation bilaterally Resp Narrative: Chest tube with no air leak GI soft to palpation and non-tender Assessment & Plan Assessment/Plan (1) Iatrogenic pneumothorax: PLAN: Patient had a two-view chest x-ray this morning which did not show any pneumothorax. I will remove the chest tube and repeat imaging in 4 hours and as long as there is no recollection of pneumothorax she may be discharged home this afternoon. Leo Mcguire MD Pager: [facility] [address] [place] [address], [address] [place] [address] Office:
--- NOTE | 2023-07-25 09:58 | PCM.PN.BLA ---
Progress Note Patient's chest tube was removed after morning chest x-ray. The area around the chest tube was prepped and then injected with local anesthetic. A 3-0 silk suture was placed into the skin to close the incision. Next the suture holding the chest tube and was cut. Patient was instructed to Valsalva and the chest tube was removed and the suture was tied closing the incision. Occlusive dressing was placed. Patient tolerated the procedure well. Repeat chest x-ray will be obtained in 4 hours.
--- NOTE | 2023-07-25 10:00 | RAD_ITS ---
STUDY: X-RAY CHEST REASON FOR EXAM: Female, 73 years old. chest tube removal TECHNIQUE: Single AP portable view of the chest. COMPARISON: Same day 8:35 AM. FINDINGS: Status post removal of left-sided chest tube. No pneumothorax. No other changes since earlier today. Electronically Signed: Dashawn Clancy MD at 21:38 EDT , RAD/Chest 1 View (Portable) IMPRESSION: undefined
[2023-07-25 11:50] LABS: Bedside Glucose 144 mg/dL (74-106)
--- NOTE | 2023-07-25 14:00 | RAD_ITS ---
INDICATION: hx pneumothorax EXAMINATION/TECHNIQUE: X-RAY - XR Chest 1 View COMPARISON: Prior study dated: 07/25/2023, 10:03 AM. FINDINGS: LINES/DEVICES: None. LUNGS: No definite pneumothorax seen at this time. No new infiltrate. Persistent left subcutaneous emphysema. MEDIASTINUM AND CARDIOVASCULAR STRUCTURES: Cardiac silhouette not enlarged. Central airways and mediastinal contour are unremarkable. BONES AND SOFT TISSUES: Unchanged. RAD/Chest 1 View IMPRESSION: 1. No definite pneumothorax. 2. Otherwise no significant change. Electronically Signed: Martínez Dominguez MD at 14:53 EDT ,
--- NOTE | 2023-07-25 14:10 | DCINST_ITS ---
Discharge Instructions Diet Discharge Diet: No restrictions Activity Discharge Activity: Return to Normal Activity Weight Bearing Status: Full weight bearing Follow Up Care Test Results: Test results from this visit will be discussed in further detail at your follow- up appointment, if applicable. Discharge Plan Admission Admit Date/Time: 07/22/23 11:37 Primary Reason for Your Visit: Left pneumothorax Attending Provider: Gerald Low Primary Care Provider: Misael Molina Consulting Providers: Dax Terry V; Aniket Lu Discharge Orders/Prescriptions Prescriptions: New oxycodone 5 mg tablet 5 mg PO Q6H PRN (Reason: pain) 3 Days Qty: 15 0RF Rx Instructions: 5-10 mg every six hours as needed for pain Continued cholecalciferol (vitamin D3) 50 mcg (2,000 unit) tablet 50 mcg PO DAILY metoprolol tartrate 25 mg tablet 6.25 mg PO BIDCM metformin 500 mg tablet 500 mg PO DAILY Patient Comments: TAKE 1 TABLET BY MOUTH ONCE DAILY alendronate 70 mg tablet 70 mg PO MO Patient Comments: TAKE 1 TABLET BY MOUTH ONCE A WEEK. TAKE BEFORE FOOD OR DRINK AND SIT UPRIGHT FOR 30 MINUTES AFTER TAKING polysaccharide iron complex [Ferrex 150] 150 mg iron Capsule 150 mg PO DAILY 30 Days Qty: 30 0RF midodrine 5 mg Tablet 10 mg PO TIDCM 30 Days Qty: 180 0RF pantoprazole 40 mg tablet,delayed release (DR/EC) 40 mg PO BID 30 Days Qty: 60 0RF atorvastatin 40 mg tablet 20 mg PO QHS Eliquis 5 mg tablet 5 mg PO BID Qty: 180 4RF Rx Instructions: Resume Eliquis on 07/27/2023 potassium chloride [Klor-Con M20] 20 mEq tablet,ER particles/crystals 20 meq PO BIDCM 30 Days Qty: 60 12RF Referrals / Follow Up: Aniket Lu MD [Med Staff - Active Staff] - See Referral Note (Next week for suture removal- or Thursday) Misael Molina MD [Primary Care Provider] - Disposition Disposition (needs filled in before D/C Order can be placed): Home, Self Care
--- NOTE | 2023-07-25 14:27 | PCM.DC.SUM ---
Providers Date of Admission: 07/22/23 Date of Discharge: 07/25/23 Primary Care Physician: Dr. Misael Molina MD Consultations 07/22/23 13:58 Consult: [employer] / Pulmonary Medicine Routine Consulting Provider: Dax Terry V Reason for Consult: pneumothorax EMERGENT Consult: No Notified: Yes Date Notified: 07/22/23 Time Notified: 13:58 Method of Notification: Verbal 07/23/23 08:11 Consult: General Surgery Routine Consulting Provider: Aniket Lu Reason for Consult: pneumothorax EMERGENT Consult: No Notified: Yes Date Notified: 07/23/23 Time Notified: 08:11 Method of Notification: Verbal Reason For Visit: PNEUMOTHORAX Diagnosis Discharge Diagnosis (1) Iatrogenic pneumothorax: Status: Acute Code(s): J95.811 - Postprocedural pneumothorax Plan 1. Left pneumothorax secondary to left lung CT-guided needle biopsy-continue present treatment per general surgery, patient's left lung is expanded today. #2 type 2 diabetes-patient's blood sugars will be monitored, she is on metformin at home, this will be held during her hospitalization #3 paroxysmal atrial fibrillation-patient is off anticoagulation at this time, patient will be on subcu heparin for prophylaxis #4 atherosclerotic heart disease-patient is under medical treatment at this time #5 hyperlipidemia-patient's atorvastatin will be held temporarily while she is hospitalized, I feel this can be held during her brief hospitalization Total clinical time spent by myself addressing the patient's medical issues, reviewing all of her data, and collaborating with patient's care team: 25 minutes Medications at Discharge Home Medications alendronate 70 mg tablet 70 mg PO MO Osteoporosis 05/18/22 metformin 500 mg tablet 500 mg PO DAILY DIABETES 05/18/22 midodrine 5 mg tablet 10 mg (2 x 5 mg) PO TIDCM blood pressure 30 days #180 tabs 07/30/22 pantoprazole 40 mg tablet,delayed release 40 mg PO BID GERD 30 days #60 tabs 07/30/22 polysaccharide iron complex 150 mg iron capsule (Ferrex) 150 mg PO DAILY anemia 30 days #30 caps 07/30/22 cholecalciferol (vitamin D3) 50 mcg (2,000 unit) tablet 50 mcg PO DAILY supplement 09/23/22 metoprolol tartrate 25 mg tablet 6.25 mg PO BIDCM afib 09/23/22 potassium chloride 20 mEq tablet,extended release(part/cryst) (Klor-Con M) 20 meq PO BIDCM supplement 30 days #60 tabs 11/14/22 atorvastatin 40 mg tablet 20 mg PO QHS Cholestrol 07/22/23 apixaban 5 mg tablet (Eliquis) 5 mg PO BID blood thinner #180 tabs 07/25/23 oxycodone 5 mg tablet 5 mg PO Q6H PRN pain 3 days #15 tabs 07/25/23 Hospital Course Operations None Procedures - (Insertion of chest tube) Summary of Care Provided Minutes Spent on Discharge: 30 Hospital Course: 73-year-old white female was seen in the emergency room at [facility] after being sent there from radiology after the patient underwent a left fine-needle biopsy of a lung nodule, following the procedure she developed a pneumothorax and was sent to the ER for evaluation. Patient underwent insertion of a pigtail catheter while in the ER with reinflation of the lung. She was admitted to PCU and seen in consultation by Dr. Terry, the following day it was noted on the chest x-ray that she had a tension pneumothorax on the left, the pigtail catheter was removed and a chest tube was inserted by Dr. Lu of general surgery. Patient tolerated the procedure well. On 07/25/2023, patient was seen and examined: On examination she appeared in good health and spirits, she does not appear to be in any distress. Vital signs as documented. Skin warm and dry and without overt rashes. Neck without JVD, thyroid appears normal, trachea is midline, neck is supple. Lungs clear, normal air movement was noted. Heart exam notable for regular rhythm, normal sounds and absence of murmurs, rubs or gallops. Abdomen unremarkable and without evidence of organomegaly, masses, or abdominal aortic enlargement, bowel sounds are present in all 4 quadrants, no abdominal tenderness was noted. Extremities nonedematous, no cyanosis was noted, no clubbing was noted. Neuro: Cranial nerves II through XII are grossly intact, no focal motor deficits were noted, sensation to light touch and pinprick is intact, motor exam 5/5 throughout. Psych: Patient is alert and oriented x3, she does not appear anxious or depressed, she does not appear agitated. On 07/25/2023, the chest tube was removed and follow-up chest x-rays showed no evidence of pneumothorax. Patient did require 2 L of oxygen at rest and when ambulating at the time of discharge and was expected to wear her oxygen in the home and outside the home during activities of daily living. Patient was discharged in stable condition on 07/25/2023. Weight / BMI Weight Weight: 76.657 kg Body Mass Index (BMI) 25.7 ABG / Lab / Microbiology Data Laboratory: Laboratory Results - last 24 hr 07/24/23 16:22: POC Glucose 141 H 07/24/23 21:48: POC Glucose 140 H 07/25/23 06:30: POC Glucose 163 H 07/25/23 11:33: POC Glucose 144 H Radiography Diagnostic Testing: Radiology Impression Chest X-Ray 07/25/23 08:02 IMPRESSION: No significant change. Electronically Signed: Martínez Dominguez MD at 10:12 EDT Reading Location ID and State: [facility] / [place] Tel , Service support , D/C Instructions Discharge Diet: No restrictions Weight Bearing Status: Full weight bearing Meaningful Use Info Meaningful Use Diagnoses (Choose all that apply): None applicable Discharge Plan Admission Admit Date/Time: 07/22/23 11:37 Primary Reason for Your Visit: Left pneumothorax Attending Provider: Gerald Low Primary Care Provider: Misael Molina Consulting Providers: Dax Terry V; Aniket Lu Discharge Orders/Prescriptions Prescriptions: New oxycodone 5 mg tablet 5 mg PO Q6H PRN (Reason: pain) 3 Days Qty: 15 0RF Rx Instructions: 5-10 mg every six hours as needed for pain Continued cholecalciferol (vitamin D3) 50 mcg (2,000 unit) tablet 50 mcg PO DAILY metoprolol tartrate 25 mg tablet 6.25 mg PO BIDCM metformin 500 mg tablet 500 mg PO DAILY Patient Comments: TAKE 1 TABLET BY MOUTH ONCE DAILY alendronate 70 mg tablet 70 mg PO MO Patient Comments: TAKE 1 TABLET BY MOUTH ONCE A WEEK. TAKE BEFORE FOOD OR DRINK AND SIT UPRIGHT FOR 30 MINUTES AFTER TAKING polysaccharide iron complex [Ferrex 150] 150 mg iron Capsule 150 mg PO DAILY 30 Days Qty: 30 0RF midodrine 5 mg Tablet 10 mg PO TIDCM 30 Days Qty: 180 0RF pantoprazole 40 mg tablet,delayed release (DR/EC) 40 mg PO BID 30 Days Qty: 60 0RF atorvastatin 40 mg tablet 20 mg PO QHS Eliquis 5 mg tablet 5 mg PO BID Qty: 180 4RF Rx Instructions: Resume Eliquis on 07/27/2023 potassium chloride [Klor-Con M20] 20 mEq tablet,ER particles/crystals 20 meq PO BIDCM 30 Days Qty: 60 12RF Referrals / Follow Up: Aniket Lu MD [Med Staff - Active Staff] - See Referral Note (Next week for suture removal- or Thursday) Misael Molina MD [Primary Care Provider] - Disposition Disposition (needs filled in before D/C Order can be placed): Home, Self Care Charges/Coding Visit Charges Inpatient E&M: 14668 Subs Hosp L1
== END 2023-07-25 15:37 | disposition home or self-care (01) | DRG 201 ==
LOC: ED 11:24 → PCU 12:03
PROVIDERS: Admitting Provider Internal Medicine; Emergency Provider Emergency Medicine; PCP Family Medicine; Visit Provider Internal Medicine
DX: J95.811 Postprocedural pneumothorax (principal); E11.9 Type 2 diabetes mellitus without complications; I48.0 Paroxysmal atrial fibrillation; I10 Essential (primary) hypertension; E78.00 Pure hypercholesterolemia, unspecified; I25.10 Atherosclerotic heart disease of native coronary artery without angina pectoris; R91.1 Solitary pulmonary nodule; Z79.84 Long term (current) use of oral hypoglycemic drugs; Z79.899 Other long term (current) drug therapy; Z86.16 Personal history of COVID-19; Z87.891 Personal history of nicotine dependence
CPT/HCPCS: 32551; 36415; 71045; 71046; 77012; 82962; 85025; 85610; 85730; 88172; 88305; 94668; 99156; 99283; 99406; J7050; A4216; C2613

== ENCOUNTER → 2023-07-22 | Outpatient (CLI) | payer MEDICARE, OTHER, SELFPAY ==
--- NOTE | 2023-07-22 | ASPIGT_PTH ---
PATIENT: CARMEN MILLER LOC: CT U#:[id number] AGE/SX: 73/F ROOM: RE07/22/[address]: Dr. Dax Terry MD : 1950 BED: DIS: 07/22/2023 SPEC #: [id number] RECD: 07/22/23 10:00 STATUS: LAURA LANG #: [id number] DAVI: 07/22/23 00:[address]: Dax Terry V DEPT: SURGICAL PATHOLOGY RECD BY: Doreen Swartz ENTERED: 07/22/23 13:44 SP TYPE: ASP RAD OTHR DR: MD Dr. Misael Bentley MD Tissues: Lung, NOS Procedures: FNA Specimen Adequacy Surgery Specimen Level IV Imprint (control) HEADER OPERATION: Left lung, CT-guided core biopsy PRE-OP DIAGNOSIS: Left lung TISSUE SUBMITTED: Left lung 20-gauge x6 MICROSCOPIC DIAGNOSIS Left lung mass, CT-guided core biopsy: Fragments of lung parenchymal tissue with extensive fibrosis, mild chronic inflammation and necrosis. Negative for malignancy. See comment. Piter 07/23/2023 COMMENT The specimen is evaluated at the time of biopsy by Dr. Jay. Immediate Evaluation = Negative for malignant cells. Focal areas suggestive of granulomas are noted. Special stains for acid fast bacilli and fungi are negative for organisms; matched controls are appropriate. Correlation with clinical, radiologic findings and appropriate follow up are necessary. Re-biopsy is suggested if clinically indicated. Case has been reviewed in consultation with Dr. Polanco who concurs with the above diagnosis. IDC:AM MICROSCOPIC DESCRIPTION Slides are reviewed. GROSS DESCRIPTION Received in fixative is one container labeled with the patient's name and designated left lung mass. The specimen consists of multiple irregular fragments of light mauro soft tissue that in aggregate measure 1.0 x 0.1 x 0.1 cm. The specimen is totally submitted in one cassette. Two touch imprints are prepared at the time of core biopsy. / Piter 07/22/2023 TC:5 CPT: 54117, 94072, 36363 x2
--- NOTE | 2023-07-22 07:52 | CT_ITS ---
PROCEDURE: CT GUIDED CORE NEEDLE BIOPSY OF A left upper lobe LUNG LESION INDICATION: Female, 73 years old. Left upper lobe lung nodule. PHYSICIAN: Dr. Rhianna Hay CONSENT: Written informed consent was obtained having explained the risks, benefits and alternatives in detail with the patient who accepted the risks and agreed to proceed. Laboratory review and clinical assessment was performed. CONSCIOUS SEDATION PROTOCOL: The Drugs used were: 2 mg Versed, IV., and 50 mcg Fentanyl, IV. The sedation time was: 24 minutes. Conscious sedation was started at 9:03 AM and terminated at 9:27 AM. The conscious sedation protocol was independently monitored. RADIATION DOSAGE (If Supplied By Facility): CTDIvol = ( 17 ) mGy, DLP = ( 937.22 ) mGycm Individualized dose optimization techniques were used for this CT. TECHNIQUE: The patient was placed in the supine position. A noncontrast CT was performed to localize the lesion in the anterior left upper lobe . The skin surface was prepped and draped in a sterile fashion. 1% lidocaine was used for local anesthesia. Using CT guidance, a 20-gauge coaxial biopsy device was advanced to the periphery of the lesion. A total of 6 core specimens were obtained. The specimens were placed in a formalin solution. A post procedure CT demonstrated no adverse sequelae or pneumothorax. The patient tolerated the procedure well without adverse event. A negative biopsy does not exclude malignancy. Further imaging or clinical followup based on patient condition and degree of clinical suspicion for malignancy. Suggest rebiopsy, if biopsy results do not match with clinical scenario. CT/Biopsy/Inj or Needle Placement IMPRESSION: 1. CT directed core needle biopsy of the anterior left upper lobe lung nodule using CT image guidance with image documentation as described. Pathology results are pending. 2. Conscious Sedation protocol utilized with independent monitoring. Electronically Signed: Paul Moctezuma MD at 9:51 EDT ,
[2023-07-22 07:57] LABS: Absolute Lymphocyte Count 2.25 X10^3/uL (0.83-4.51); Absolute Neutrophil Count 6.5 X10^3/uL (2.0-7.7); Basophil# 0.05 X10^3/uL; Basophil% 0.5 % (0-1); Eosinophil# 0.17 X10^3/uL; Eosinophils% 1.7 % (0-5); Lymphocyte # 2.25 X10^3/ul (0.83-4.51); Lymphocyte % 22.8 % (19-41); Mean Corp Hgb Conc 30.8 g/dL (32-36); Mean Corpuscular Hgb 28.8 pg (27.0-32.0); Mean Corpuscular Volume 93.5 fL (81-99); Monocyte# 0.76 X10^3/uL; Monocyte% 7.7 % (0-10); NRBC Flagged by Analyzer 0 % (0-5); Neutrophil # 6.54 X10^3/uL (2.7-7.7); Neutrophil % 66.1 % (47-70); Platelet Count 521 K/mm3 (150-450); RBC Distribution Width SD 48.2 fl (35.1-43.9); Red Blood Count 4.17 M/mm3 (4.2-5.4); White Blood Count 9.9 K/mm3 (4.4-11.0)
[2023-07-22 08:15] VITALS: BP 130/71; PULSE 80; RESP 16; TEMP 37; O2SAT 95; BMI 25.8
[2023-07-22 08:17] LABS: Partial Thromboplast Time 26.2 Seconds (24.1-36.2); Prothrombin Time (Protime)PT. 13.6 SECONDS (11.7-14.9)
[2023-07-22] MEDS: 0.9% Normal Saline (250mL Bag) 250 ML 15 ML IV (08:34)
[2023-07-22] MEDS: 0.9% Saline Lock 10 ML Syringe IV (08:35)
[2023-07-22] MEDS: Midazolam 2 MG/2 ML Syringe IV (09:03)
[2023-07-22] MEDS: fentaNYL 100 MCG/2 ML Ampul IV (09:05)
[2023-07-22 09:11] VITALS: BP 108/56; BP 111/61; BP 116/64; BP 127/59; BP 143/57; PULSE 81; PULSE 83; PULSE 84; PULSE 85; RESP 16; RESP 18; RESP 19; RESP 20; O2SAT 100; O2SAT 86; O2SAT 94; O2SAT 97; O2SAT 99
[2023-07-22] MEDS: Lidocaine 2% (20 ml mdv) 20 ML Vial INFILT (09:20)
--- NOTE | 2023-07-22 09:30 | RAD_ITS ---
STUDY: X-RAY CHEST REASON FOR EXAM: Female, 73 years old. Immediately post lung biopsy -- Immediately post lung biopsy TECHNIQUE: AP inspiration and expiration views. COMPARISON: None. FINDINGS: There is evidence of a 15% left apical pneumothorax on the immediate post left lung biopsy radiographs. The patient is symptomatic with pain and shortness of breath. A small caliber chest tube will be placed. RAD/Chest Insp/Exp 2 View IMPRESSION: Status post left lung biopsy with a 15% postbiopsy left-sided pneumothorax. Electronically Signed: Paul Moctezuma MD at 10:02 EDT ,
[2023-07-22 09:33] VITALS: BP 130/71; BP 153/104; PULSE 80; RESP 24; O2SAT 96
[2023-07-22 09:38] VITALS: BP 130/71; BP 140/63; PULSE 121; RESP 23; O2SAT 96
== END | disposition home or self-care (01) ==
LOC: CT 07:45
PROVIDERS: Radiology Diagnostic Radiology; PCP Family Medicine; Referring Provider Internal Medicine Pulmonary Disease; Visit Provider Internal Medicine Pulmonary Disease
DX: R91.1 Solitary pulmonary nodule (principal); Z01.818 Encounter for other preprocedural examination
CPT/HCPCS: 32408; 36415; 71046; 77012; 85025; 85610; 85730; 88161; 88172; 88305; 88313; 99156; J7050; A4216; C2613

== ENCOUNTER → 2023-08-05 | Outpatient (CLI) | payer MEDICARE, OTHER, SELFPAY ==
[2023-08-05 17:36] LABS: Absolute Neutrophil Count 6.7 X10^3/uL (2.0-7.7); Basophil# 0.07 X10^3/uL; Basophil% 0.7 % (0-1); Eosinophil# 0.35 X10^3/uL; Eosinophils% 3.3 % (0-5); Hematocrit 39.1 % (37-47); Hemoglobin 11.9 g/dL (12.0-15.0); Lymphocyte % 25.2 % (19-41); Mean Corp Hgb Conc 30.4 g/dL (32-36); Mean Corpuscular Hgb 28.7 pg (27.0-32.0); Mean Corpuscular Volume 94.4 fL (81-99); Mean Platelet Vol. 9.3 fl (6.2-12.0); Monocyte% 8.4 % (0-10); NRBC Flagged by Analyzer 0 % (0-5); Neutrophil # 6.67 X10^3/uL (2.7-7.7); Platelet Count 474 K/mm3 (150-450); RBC Distribution Width SD 48.3 fl (35.1-43.9); Red Blood Count 4.14 M/mm3 (4.2-5.4); White Blood Count 10.7 K/mm3 (4.4-11.0)
[2023-08-05 17:48] LABS: Erythrocyte Sedimentation Rate 32 mm/hr (0-30)
[2023-08-05 18:31] LABS: AST(SGOT) 18 U/L (15-37); Alanine Aminotransfer ALT/SGPT 24 U/L (13-56); Albumin, Serum 3.5 g/dL (3.2-5.0); Alkaline Phosphatase 75 U/L (45-117); Bilirubin, Direct 0.07 mg/dL (0.00-0.30); CRP 2.94 mg/L (0.0-3.0); Protein, Total 7.5 g/dL (6.4-8.2); Rheumatoid Factor < 10.0 IU/mL (<15)
[2023-08-07 12:09] LABS: ANTINUCLEAR ANTIBODIES DIRECT Negative (Negative); Anti-Scleroderma-70 AB <0.2 AI (0.0-0.9); Anti-dsDNA Ab <1 IU/mL (0-9); SJOGREN'S Anti-SS-A test < 0.2 AI (0.0-0.9); SJOGREN'S Anti-SS-B test < 0.2 AI (0.0-0.9)
[2023-08-07 15:08] LABS: Angiotensin Convert Enzyme 40 U/L (14-82); Anti-Smooth Muscle ABS 6 Units (0-19); CCP IgG Antibodies 0 units (0-19); Cytoplasmic Ab (C-ANCA) <1:20 titer (Neg:<1:20); Perinuclear Ab (P-ANCA) <1:20 titer (Neg:<1:20)
== END | disposition home or self-care (01) ==
PROVIDERS: PCP Family Medicine; Referring Provider Internal Medicine Pulmonary Disease; Visit Provider Internal Medicine Pulmonary Disease
DX: J93.83 Other pneumothorax (principal); R91.1 Solitary pulmonary nodule
CPT/HCPCS: 36415; 80076; 82164; 83516; 85025; 85652; 86038; 86140; 86200; 86225; 86235; 86256; 86431

== ENCOUNTER → 2023-12-02 | Outpatient (CLI) | payer MEDICARE, OTHER, SELFPAY ==
[2023-12-02 10:40] LABS: Anion Gap 8 (5-15); BUN 18 mg/dL (7-18); BUN/Creat Ratio 19.4 RATIO (10-20); Calcium,Total 9.7 mg/dL (8.5-10.1); Chloride 104 mmol/L (98-107); Cholesterol 173 mg/dL (200); Creatinine, Serum 0.93 mg/dL (0.55-1.02); EST Glomerular Filtration Rate 63 mL/min (>60); Est Glom Filt Rate - Afr Amer 76 mL/min (>60); Glucose 168 mg/dL (74-106); High Density Lipoprotein 50 mg/dL; Potassium 4.1 mmol/L (3.5-5.1); Sodium Level 139 mmol/L (136-145); Triglycerides 181 mg/dL; Very Low Density Lipoprotein 36 mg/dL (5-40)
[2023-12-02 10:49] LABS: Microalbumin,Random Urine 28.7 mg/L (NO RANGE EST.); Microalbumin:Creatinine Ratio 20.4 mg/g CRE (<30 mg/g CRE)
[2023-12-02 11:58] LABS: Hemoglobin A1c 7.2 % (3.8-5.6)
== END | disposition home or self-care (01) ==
PROVIDERS: PCP Family Medicine; Referring Provider Family Medicine; Visit Provider Family Medicine
DX: I10 Essential (primary) hypertension (principal); E11.9 Type 2 diabetes mellitus without complications
CPT/HCPCS: 36415; 80048; 80061; 82043; 82570; 83036

== ENCOUNTER → 2023-12-14 | Outpatient (CLI) | payer MEDICARE, OTHER, SELFPAY ==
--- NOTE | 2023-12-14 13:51 | CT_ITS ---
STUDY: CT CHEST WITHOUT CONTRAST REASON FOR EXAM: Female, 73 years old. Follow-up for pulmonary nodule. RADIATION DOSAGE (If Supplied By Facility): CTDIvol = ( 9.09 ) mGy, DLP = ( 317.89 ) mGycm TECHNIQUE: Transaxial imaging was performed without the administration of intravenous contrast material. Multiplanar coronal and sagittal images were reformatted. Individualized dose optimization techniques were used for this CT. COMPARISON: Comparison is made with prior study dated May 19, 2023. FINDINGS: CHEST Hyperinflation and emphysematous changes. Stable reticular nodular pattern in the left lung apex. This most likely represents scarring. Stable 7.4 mm nodule in the anterior aspect of the left upper lobe as seen on axial image #41. Stable 7.2 mm noncalcified nodule in the superior segment of the left lower lobe. Stable 6 mm nodule in the peripheral aspect of the left upper lobe as seen on axial image #47. Stable 6 mm nodule in the peripheral lateral aspect of the left upper lobe as seen on axial image #50. The previously seen irregular nodular density seen in the lingular segment of the left upper lobe is not seen at this time. There is no demonstrated pleural abnormality. There are calcifications of the coronary arteries. There are multiple small lymph nodes within the mediastinum, which are normal in size and morphology most compatible with reactive lymph hyperplasia. Normal hilar regions. Normal unenhanced pulmonary arteries. There is atherosclerotic calcification of the aortic arch with tortuosity and elongation of the aortic arch and descending thoracic aorta. There are multi-level degenerative changes of the thoracic spine. There is no demonstrated abnormality of the visualized upper abdomen. CT/Chest without Contrast IMPRESSION: Multiple noncalcified nodules in the left upper lobe and left lower lobe. The previously seen nodular density in the posterior aspect of the lingular segment of the left upper lobe is not seen at this time. Electronically Signed: Paul Moctezuma MD at 9:20 EST ,
== END | disposition home or self-care (01) ==
LOC: CT 13:50
PROVIDERS: PCP Family Medicine; Referring Provider Internal Medicine Pulmonary Disease; Visit Provider Internal Medicine Pulmonary Disease
DX: R91.1 Solitary pulmonary nodule (principal)
CPT/HCPCS: 71250

== ENCOUNTER → 2024-03-09 | Outpatient (CLI) | payer MEDICARE, OTHER, SELFPAY ==
[2024-03-09 17:40] LABS: Hemoglobin 11.7 g/dL (12.0-15.0); Mean Corp Hgb Conc 30.8 g/dL (32-36); Mean Corpuscular Hgb 29.2 pg (27.0-32.0); Mean Corpuscular Volume 94.8 fL (81-99); Mean Platelet Vol. 9.9 fl (6.2-12.0); Platelet Count 434 K/mm3 (150-450); RBC Distribution Width CV 13.7 % (11.6-14.6); RBC Distribution Width SD 47.9 fl (35.1-43.9); Red Blood Count 4.01 M/mm3 (4.2-5.4); White Blood Count 12.6 K/mm3 (4.4-11.0)
== END | disposition home or self-care (01) ==
LOC: MTLAB 14:55
PROVIDERS: PCP Family Medicine; Referring Provider Internal Medicine Cardiovascular Disease; Visit Provider Internal Medicine Cardiovascular Disease
DX: I48.0 Paroxysmal atrial fibrillation (principal)
CPT/HCPCS: 36415; 85027

== ENCOUNTER → 2024-04-27 | Outpatient (CLI) | payer MEDICARE, OTHER, SELFPAY ==
[2024-04-27 10:33] LABS: Color, Urine Yellow (Yellow); Glucose, Dipstick Normal (Normal); Ketone-Dipstick Negative (Negative); Leukocyte Esterase-Dipstick 25 /ul (Negative); Nitrite-Dipstick Negative (Negative); Occult Blood-Urine 10 /ul (Negative); Protein-Dipstick 15 mg/dl (Negative); Specific Gravity, Urine 1.025 (1.002-1.030); Urine Bilirubin Dipstick Negative (Negative); Urine Clarity Sl. Cloudy (Clear); Urine Urobilinogen 1 mg/dl (Normal)
[2024-04-27 11:40] LABS: Hemoglobin A1c 7.4 % (3.8-5.6)
== END | disposition home or self-care (01) ==
LOC: MTLAB 09:17
PROVIDERS: PCP Family Medicine; Referring Provider Family Medicine; Visit Provider Family Medicine
DX: E11.9 Type 2 diabetes mellitus without complications (principal); R31.9 Hematuria, unspecified
CPT/HCPCS: 36415; 81002; 83036

== ENCOUNTER → 2024-07-15 | Outpatient (CLI) | payer MEDICARE, OTHER, SELFPAY ==
--- NOTE | 2024-07-15 14:24 | CT_ITS ---
EXAM: CT CHEST WITHOUT INTRAVENOUS CONTRAST CLINICAL INDICATION: PULM NODULE TECHNIQUE: Helically acquired images were obtained of the chest without intravenous contrast. This CT exam was performed using one or more of the following dose reduction techniques: automated exposure control, adjustment of the mA and/or kV according to patient size, and/or use of iterative reconstruction technique. COMPARISON: 12/14/2023 FINDINGS: LUNGS AND PLEURAL SPACES: There are emphysematous changes in both lungs. There are noncalcified nodules seen within the left upper and lower lobes which are not significantly changed the largest in the superior segment of the left lower lobe measuring 8 mm. No pleural effusion or thickening. No pneumothorax. HEART: There are moderate coronary artery calcifications present. Heart size is normal. No pericardial effusion. MEDIASTINUM: Unremarkable. No mediastinal or hilar adenopathy. Esophagus is unremarkable. No hiatal hernia. THYROID: Unremarkable. No thyroid lesions. BONES/JOINTS: Unremarkable. No suspicious lytic or blastic abnormality. VASCULATURE: See above. CT/Chest without Contrast IMPRESSION: Multiple noncalcified nodules in the left upper and lower lobes which are nonspecific change from the reference exam. There are stable underlying emphysematous changes. Electronically Signed: Jeremy Tinajero MD at 0:16 EDT ,
== END | disposition home or self-care (01) ==
LOC: CT 14:22
PROVIDERS: PCP Family Medicine; Referring Provider Internal Medicine Pulmonary Disease; Visit Provider Internal Medicine Pulmonary Disease
DX: R91.1 Solitary pulmonary nodule (principal)
CPT/HCPCS: 71250

== ENCOUNTER → 2024-07-27 | Outpatient (CLI) | payer MEDICARE, OTHER, SELFPAY ==
[2024-07-27 13:09] LABS: AST(SGOT) 16 U/L (15-37); Alanine Aminotransfer ALT/SGPT 21 U/L (13-56); Albumin, Serum 3.7 g/dL (3.2-5.0); Alkaline Phosphatase 87 U/L (45-117); Anion Gap 10 (5-15); BUN 21 mg/dL (7-18); BUN/Creat Ratio 23.5 RATIO (10-20); Calcium,Total 9.7 mg/dL (8.5-10.1); Chloride 103 mmol/L (98-107); Cholesterol 141 mg/dL (200); Creatinine, Serum 0.89 mg/dL (0.55-1.02); EST Glomerular Filtration Rate 66 mL/min (>60); Est Glom Filt Rate - Afr Amer 80 mL/min (>60); Globulin 3.7 g/dL (2.2-4.2); Glucose 135 mg/dL (74-106); High Density Lipoprotein 50 mg/dL; Potassium 3.5 mmol/L (3.5-5.1); Protein, Total 7.4 g/dL (6.4-8.2); Sodium Level 138 mmol/L (136-145); Triglycerides 191 mg/dL; Very Low Density Lipoprotein 38 mg/dL (5-40)
[2024-07-27 13:14] LABS: Microalbumin,Random Urine 45.3 mg/L (NO RANGE EST.); Microalbumin:Creatinine Ratio 35.7 mg/g CRE (<30 mg/g CRE)
== END | disposition home or self-care (01) ==
LOC: MTLAB 10:03
PROVIDERS: PCP Family Medicine; Referring Provider Family Medicine; Visit Provider Family Medicine
DX: E11.9 Type 2 diabetes mellitus without complications (principal)
CPT/HCPCS: 36415; 80053; 80061; 82043; 82570

== ENCOUNTER 2024-11-24 05:36 | Day surgery (SDC) | payer MEDICARE, OTHER, SELFPAY ==
--- NOTE | 2024-11-22 16:12 | PAT.ANESEVAL ---
Pre-Assessment Diagnosis/Proposed Procedure Planned Operative Procedure(s): EGD/CSCOPE Anesthesia History Anesthesia History - consulting practice director: Anesthesia History - consulting practice director Hx Hospitalization No 11/22/24 10:23 Any Problems With Anesthesia No 11/22/24 10:23 Cholinesterase deficiency No 11/22/24 10:23 You/Your Family Experience No 11/22/24 10:23 fever (hyperthermia) with Relationship Recent Exposure to Contagious No 01/27/23 05:52 Disease Does patient have nerve No 11/22/24 10:23 stimulator Patient instructed to have device shut off --Does patient have Pacemaker or ICD? When Was Last Pacemaker Check QUESTION #4 FULL TEXT: You/Your Family Experience fever (hyperthermia) with Anesthesia Last Oral Intake Last Oral intake: Last Oral Intake NPO since Meds taken in AM with sips of water? Meds patient instructed to take am of surgery PONV PONV - consulting practice director: PONV - consulting practice director Female Yes 11/22/24 10:23 HX of Motion Sickness No 11/22/24 10:23 HX of N/V After Surgery No 11/22/24 10:23 Non-Smoker Yes 11/22/24 10:23 Duration of Surgery greater No 11/22/24 10:23 than 60 minutes Number of Risk Factors 2 11/22/24 10:23 PONV Score Moderate Risk 11/22/24 10:23 Height & Weight Height & Weight: Anesthesia: Height & Weight Height 5 ft 8 in 07/06/24 13:28 Respiratory Assessment Respiratory Assessment - consulting practice director: Respiratory Tract Infection Hx - consulting practice director Hx Respiratory Tract Infection No 11/22/24 10:23 STOP Sleep Apnea STOP Sleep Apnea - consulting practice director: STOP Sleep Apnea - consulting practice director Hx Hypertension Yes: CONTROLLED WITH MED 11/22/24 10:23 Hx Sleep Apnea No 11/22/24 10:23 CPAP BIPAP Do you snore loudly (louder No 11/22/24 10:23 than talking or can be heard Do you often feel tired/ No 11/22/24 10:23 fatigued/ sleepy during daytime? Has anyone observed you stop No 11/22/24 10:23 breathing during sleep? STOP Results Negative 11/22/24 10:23 QUESTION #5 FULL TEXT : Do you snore loudly (louder than talking or can be heard through closed doors)? 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 Specify any problems Hx of Preganancy in last 3 No 11/22/24 10:23 Months Nurse Filling Out Transfusion DSCHRIBER 11/22/24 10:23 & Questions: Date: 11/22/24 11/22/24 10:23 Time: 10:25 11/22/24 10:23 Patient unable to answer at this time (ie. confused, unrespo /Reproduction History /Reproductive History - consulting practice director: /Reproductive Hx- consulting practice director Hx Now No 11/22/24 10:23 Gestational Age (in weeks): EDC: Hx Hx Para Hx Section SAB No 11/22/24 10:23 [facility] Medical History (Updated 11/22/24 @ 10:34 by Ekaterina Matthews) Anxiety Bladder disease Back pain On home oxygen therapy Iatrogenic pneumothorax Legionnaires' disease Wears glasses Wears partial dentures Ambulates with cane Arthritis Anemia Low iron Dietary restriction History of diverticulitis History of ulceration History of GI bleed Gastric reflux Former smoker Emphysema, unspecified Shortness of breath on exertion History of echocardiogram History of stress test Cardiology follow-up encounter Hypertension History of atrial fibrillation History of left heart catheterization (LHC) (~11/11/22) Atherosclerotic heart disease of [place] coronary artery without angina pectoris Abnormal stress test Type 1 diabetes Tobacco abuse Hematuria Diabetes mellitus Paroxysmal A-fib History of diabetes mellitus COVID-19 High cholesterol Diabetes Home Medications ?Medication ?Instructions ?Recorded ?Last Taken ?Type alendronate 70 mg tablet 70 mg PO MO Osteoporosis 05/18/22 06/02/22 History polysaccharide iron complex 150 mg 150 mg PO DAILY anemia 30 days #30 07/30/22 11/20/24 Rx iron capsule (Ferrex) caps cholecalciferol (vitamin D3) 50 50 mcg PO DAILY supplement 09/23/22 Unknown History mcg (2,000 unit) tablet metoprolol tartrate 25 mg tablet 6.25 mg PO BIDCM afib 09/23/22 01/27/23 03:45 History metformin 1,000 mg tablet 1,000 mg PO BID 07/06/24 Unknown History midodrine 5 mg tablet 10 mg PO BID blood pressure 07/06/24 Unknown History atorvastatin 40 mg tablet 20 mg (1/2 x 40 mg) PO QHS 08/26/24 Unknown Rx Cholestrol #30 tabs apixaban 5 mg tablet (Eliquis) 5 mg PO BID blood thinner #180 tabs 09/09/24 11/20/24 Rx empagliflozin 10 mg tablet 10 mg PO DAILY 11/22/24 11/20/24 History (Jardiance) omeprazole 40 mg capsule,delayed 40 mg PO QHS 11/22/24 Unknown History release potassium chloride 20 mEq 20 meq PO DAILY supplement 11/22/24 Unknown History tablet,extended release(part/cryst) (Klor-Con M) sertraline 25 mg tablet 25 mg PO DAILY 11/22/24 Unknown History Allergy/AdvReac Type Severity Reaction Status Date / Time Sulfa (Sulfonamide Allergy Unknown GI issues Verified 11/22/24 10:18 Antibiotics) Family History Uncle Heart disease Uncle Heart disease Surgical History (Updated 11/22/24 @ 10:34 by Ekaterina Matthews) History of cardiac catheterization Hx of esophagogastroduodenoscopy Social History household members: spouse Smoking Status: Former smoker alcohol intake: never substance use type: does not use caffeine: Yes Type: coffee Number of servings: 2 Audit: Pertinent Findings Pertinent Findings EKG Perinent findings: January 07, 2024. Sinus rhythm. Stress test pertinent findings: October 15, 2022. Ejection fraction 43%. SPECT nuclear imaging demonstrates perfusion changes in the distal anterior/anterioroapical segment compatible with an area of stress-induced myocardial ischemia. Echo (EF%) pertinent findings: May 19, 2022. Ejection fraction 60%. No aortic stenosis noted. Heart catheterization pertinent findings: November 11, 2022. [place] multivessel coronary artery disease. There is a 25 to 50% stenosis in the proximal LAD. There is a 25 to 50% stenosis in the mid circumflex. Recommendations at this time is medical therapy with risk factor modification. Consult pertinent findings: July 06, 2024. Rebecca MARTE. 1. Atherosclerotic heart disease of [place] coronary arteries without angina pectoris-patient has history of mild coronary artery disease by cath in October 2022. Ejection fraction was normal 60% by echo. Patient will continue aggressive risk factor modification. 2. Paroxysmal [id number] is on rate control medication and anticoagulation. She continues to have short bursts of paroxysmal A-fib which lasts a minute or less. She has been taught vagal maneuvers to trial if they persist longer than a minute. Continue current medical therapy. Recommendation Anesthesia Recommendation Anesthesia recommendation: OPTIMIZED for anesthesia
[2024-11-24] VITALS (7 sets, daily range): BP systolic 114–127; BP diastolic 68–83; PULSE 62–102; RESP 16–20; TEMP 35.8–36.2; O2SAT 92–98; BMI 23.1
--- NOTE | 2024-11-24 06:14 | PCM.PRE.AN2 ---
ASA Classification* ASA Classification ASA Classification: 3 Assessment & Plan Anesthesia* Anesthesia Assessment Anesthesia Assessment: Discussed sedation and/or anesthesia options, risks, benefits, and alternatives with patient/parents/legal guardian/POA. Questions invited. The patient/parents/legal guardian/POA seems to understand and agrees to proceed with anesthesia plan. Reviewed the physical assessment, medical history, allergy history and patient home medications list prior to surgery/procedure/anesthetic and documented any changes. Performed airway and anesthesia risk assessments. Anesthesia Type Anesthesia Type: MAC History Source History Obtained from:: Patient and Chart Anesthesia Focused Assessment* Temperature: 96.4 F Pulse Rate: 102 Blood Pressure: 124/83 Respiratory Rate: 17 Pulse Ox: 96 Oxygen Delivery Method: Room Air Airway Assessment Mouth opens: >3 cm Mallampati Score: III Teeth Condition: Caps/Crowns (Patient has crowns. They are tight.) and Partial (Patient has an upper partial.) Neck Range of motion (ROM): Full ROM Focused Labs Anesthesia Preop lab: CBC WBC 12.6 K/mm3 (4.4-11.0) H 03/09/24 14:57 03/09/24 RBC 4.01 M/mm3 (4.2-5.4) L 03/09/24 14:57 03/09/24 Hgb 11.7 g/dL (12.0-15.0) L 03/09/24 14:57 03/09/24 Hct 38.0 % (37-47) 03/09/24 14:57 03/09/24 Plt Count 434 K/mm3 (150-450) 03/09/24 14:57 03/09/24 CHEMISTRY Potassium 3.5 mmol/L (3.5-5.1) 07/27/24 10:04 07/27/24 Sodium 138 mmol/L (136-145) 07/27/24 10:04 07/27/24 Magnesium 2.1 mg/dL (1.6-2.6) 06/18/22 05:31 06/18/22 Phosphorus 2.6 mg/dL (2.5-4.9) 06/18/22 05:31 06/18/22 BUN 21 mg/dL (7-18) H 07/27/24 10:04 07/27/24 Creatinine 0.89 mg/dL (0.55-1.02) 07/27/24 10:04 07/27/24 Glucose 135 mg/dL (74-106) H 07/27/24 10:04 07/27/24 POC Glucose 144 mg/dL (74-106) H 07/25/23 11:33 07/25/23 TSH 0.22 uIU/mL (0.358-3.74) L 05/19/22 05:05 05/19/22 COAG PT 13.6 SECONDS (11.7-14.9) 07/22/23 07:47 07/22/23 Pre-Assessment Diagnosis/Proposed Procedure Planned Operative Procedure(s): EGD/CSCOPE Anesthesia History 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 When Was Last Pacemaker Check QUESTION #4 FULL TEXT: You/Your Family Experience fever (hyperthermia) with Anesthesia Last Oral Intake Last Oral intake: Last Oral Intake NPO since 02:30 11/24/24 06:02 Meds taken in AM with sips of water? Meds patient instructed to take am of surgery Any additional information?: Yes NPO since: 02:30 (Patient finished prep at 2:30 AM.) Meds taken in AM with sips of water?: Yes PONV PONV - software quality assurance engineer: PONV - software quality assurance engineer Female Yes 11/22/24 10:23 HX of Motion Sickness No 11/22/24 10:23 HX of N/V After Surgery No 11/22/24 10:23 Non-Smoker Yes 11/22/24 10:23 Duration of Surgery greater No 11/22/24 10:23 than 60 minutes Number of Risk Factors 2 11/22/24 10:23 PONV Score Moderate Risk 11/22/24 10:23 Height & Weight Height & Weight: Anesthesia: Height & Weight Height 5 ft 8 in 11/24/24 06:02 Weight: 69 kg 11/24/24 06:02 Body Mass Index (BMI) 23.1 11/24/24 06:02 Respiratory Assessment Respiratory Assessment - software quality assurance engineer: Respiratory Tract Infection Hx - software quality assurance engineer Hx Respiratory Tract Infection No 11/22/24 10:23 STOP Sleep Apnea STOP Sleep Apnea - software quality assurance engineer: STOP Sleep Apnea - software quality assurance engineer Hx Hypertension Yes: CONTROLLED WITH MED 11/22/24 10:23 Hx Sleep Apnea No 11/22/24 10:23 CPAP BIPAP Do you snore loudly (louder No 11/22/24 10:23 than talking or can be heard Do you often feel tired/ No 11/22/24 10:23 fatigued/ sleepy during daytime? Has anyone observed you stop No 11/22/24 10:23 breathing during sleep? STOP Results Negative 11/22/24 10:23 QUESTION #5 FULL TEXT : Do you snore loudly (louder than talking or can be heard through closed doors)? 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 Specify any problems Hx of Preganancy in last 3 No 11/22/24 10:23 Months Nurse Filling Out Transfusion DSCHRIBER 11/22/24 10:23 & Questions: Date: 11/22/24 11/22/24 10:23 Time: 10:11/22/24 10:23 Patient unable to answer at this time (ie. confused, unrespo /Reproduction History /Reproductive History - software quality assurance engineer: /Reproductive Hx- software quality assurance engineer Hx Now No 11/22/24 10:23 Gestational Age (in weeks): EDC: Hx Hx Para Hx Section SAB No 11/22/24 10:23 FOR[facility]LY [facility] Medical History Anxiety Bladder disease Back pain On home oxygen therapy Iatrogenic pneumothorax Legionnaires' disease Wears glasses Wears partial dentures Ambulates with cane Arthritis Anemia Low iron Dietary restriction History of diverticulitis History of ulceration History of GI bleed Gastric reflux Former smoker Emphysema, unspecified Shortness of breath on exertion History of echocardiogram History of stress test Cardiology follow-up encounter Hypertension History of atrial fibrillation History of left heart catheterization (LHC) (~11/11/22) Atherosclerotic heart disease of [place] coronary artery without angina pectoris Abnormal stress test Type 1 diabetes Tobacco abuse Hematuria Diabetes mellitus Paroxysmal A-fib History of diabetes mellitus COVID-19 High cholesterol Diabetes Home Medications ?Medication ?Instructions ?Recorded ?Last Taken ?Type alendronate 70 mg tablet 70 mg PO MO Osteoporosis 05/18/22 11/23/24 History polysaccharide iron complex 150 mg 150 mg PO DAILY anemia 30 days #30 07/30/22 11/20/24 Rx iron capsule (Ferrex) caps cholecalciferol (vitamin D3) 50 50 mcg PO DAILY supplement 09/23/22 11/23/24 History mcg (2,000 unit) tablet metoprolol tartrate 25 mg tablet 6.25 mg PO BIDCM afib 09/23/22 11/24/24 History metformin 1,000 mg tablet 1,000 mg PO BID 07/06/24 11/23/24 History midodrine 5 mg tablet 10 mg PO BID blood pressure 07/06/24 11/24/24 History atorvastatin 40 mg tablet 20 mg (1/2 x 40 mg) PO QHS 08/26/24 11/23/24 Rx Cholestrol #30 tabs apixaban 5 mg tablet (Eliquis) 5 mg PO BID blood thinner #180 tabs 09/09/24 11/20/24 Rx empagliflozin 10 mg tablet 10 mg PO DAILY 11/22/24 11/20/24 History (Jardiance) omeprazole 40 mg capsule,delayed 40 mg PO QHS 11/22/24 11/23/24 History release potassium chloride 20 mEq 20 meq PO DAILY supplement 11/22/24 11/23/24 History tablet,extended release(part/cryst) (Odalys White) sertraline 25 mg tablet 25 mg PO DAILY 11/22/24 11/24/24 History Allergy/AdvReac Type Severity Reaction Status Date / Time Sulfa (Sulfonamide Allergy Unknown GI issues Verified 11/24/24 05:53 Antibiotics) Family History Uncle Heart disease Uncle Heart disease Surgical History History of cardiac catheterization Hx of esophagogastroduodenoscopy Social History household members: spouse Smoking Status: Former smoker alcohol intake: never substance use type: does not use caffeine: Yes Type: coffee Number of servings: 2 Review of Systems (Anesthesia) ROS Narrative System reviewed and no additional complaints, except as documented.
--- NOTE | 2024-11-24 06:30 | IMM_PTH ---
PATIENT: CARMEN MILLER LOC: EN U#:[id number] AGE/SX: 74/F ROOM: RE11/24/[address]: Dr. Maurilio Mcmanus DO : 1950 BED: DIS: 11/24/2024 SPEC #: [id number] RECD: 11/24/24 11:37 STATUS: LAURA RELizz #: [id number] DAVI: 11/24/24 06:[address]: Maurilio Mcmanus DEPT: IMMUNOHISTOCHEMISTRY RECD BY: Jose Hayward ENTERED: 11/24/24 11:37 SP TYPE: IMMUNO OTHR DR: Dr. Misael Molina MD Tissues: A - Gastric mucous membrane Procedures: H Pylori (initial) PHYSICIAN & INSTITUTION [place] [address] SPECIMEN INFORMATION: Tissue Source: A- Antrum biopsy Clinical Info: Eosinophilic esophagitis, GI bleed, irritable bowel syndrome with diarrhea Specimen Number: [id number] CPT code: 68803 METHODOLOGY: Deparaffinized sections of prefer/formalin-fixed tissue or PAP/DQ stained slides are incubated with monoclonal/polyclonal antibodies/oligonucleotide probes. Localization is made via biotin free immunoperoxidase method. Appropriate controls are performed and reacted as expected. Results on target cell population are indicated in the following table: RESULTS: ANTIBODY / CLONE RESULT Block A H Pylori (polyclonal) negative These tests were developed and their performance characteristics determined by [facility]. They may not have been cleared or approved by the U.S. Food and Drug Administration. The FDA has determined that such clearance or approval is not necessary. The above immunohistochemical/dualISH markers are ordered and reviewed by the Pathologist. INTERPRETATION: A. Antrum, biopsy: Negative for Helicobacter pylori organisms. ROSIE. 11/25/2024
--- NOTE | 2024-11-24 06:30 | COLBX_PTH ---
PATIENT: CARMEN MILLER LOC: EN U#:[id number] AGE/SX: 74/F ROOM: RE11/24/[address]: Dr. Maurilio Mcmanus DO : 1950 BED: DIS: 11/24/2024 SPEC #: [id number] RECD: 11/24/24 10:24 STATUS: LAURA LANG #: [id number] DAVI: 11/24/24 06:[address]: Maurilio Mcmanus DEPT: SURGICAL PATHOLOGY RECD BY: Doreen Swartz ENTERED: 11/24/24 11:18 SP TYPE: COLON BX OTHR DR: Dr. Misael Molina MD Tissues: A - Gastric mucous membrane B - Duodenum, NOS C - Cecum, NOS D - COLON BIOPSY Procedures: Surgery Specimen Level IV HEADER OPERATION: Colonoscopy, EGD biopsy PRE-OP DIAGNOSIS: Eosinophilic esophagitis, GI bleed, irritable bowel syndrome with diarrhea TISSUE SUBMITTED: A- Antrum biopsy, B- Duodenum biopsy, C- Cecum biopsy, D- Random colonic biopsy MICROSCOPIC DIAGNOSIS A. Antrum, biopsy: Mild gastritis. See microscopic description and comment. B. Duodenum, biopsy: Fragments of duodenal mucosa, no pathologic diagnosis. C. Cecum, biopsy: Fragments of colonic mucosa, no pathologic diagnosis. D. Colon, random biopsy: Fragments of colonic mucosa, no pathologic diagnosis. 11/25/2024 COMMENT A. The results of immunohistochemistry for Helicobacter pylori will be reported separately ([id number]). MICROSCOPIC DESCRIPTION Slides are reviewed. A. The specimen shows fragments of gastric mucosa with chronic inflammatory cell infiltrates in the lamina propria consisting of lymphocytes and plasma cells, consistent with mild chronic gastritis. GROSS DESCRIPTION A. Received in fixative is one container labeled with the patient's name and designated Antrum biopsy. The specimen consists of three irregular fragments of light mauro soft tissue that in aggregate measure 0.6 x 0.3 x 0.2 cm. The specimen is totally submitted in one cassette. B. Received in fixative is one container labeled with the patient's name and designated Duodenum biopsy. The specimen consists of two irregular fragments of light mauro soft tissue that in aggregate measure 0.5 x 0.3 x 0.2 cm. The specimen is totally submitted in one cassette. C. Received in fixative is one container labeled with the patient's name and designated Cecum biopsy. The specimen consists of two irregular fragments of light mauro soft tissue that in aggregate measure 0.6 x 0.3 x 0.2 cm. The specimen is totally submitted in one cassette. D. Received in fixative is one container labeled with the patient's name and designated Random colonic biopsy. The specimen consists of multiple irregular fragments of light mauro soft tissue that in aggregate measure 2 x 0.5 x 0.2 cm. The specimen is totally submitted in one cassette. CW 11/24/2024 TC:2 CPT:30454m9
--- NOTE | 2024-11-24 06:56 | HP.PCM_ITS ---
HPI - General General Date of Admission: 11/24/24 Date of Service: 11/24/24 Chief Complaint: Gastric ulcer HPI Narrative CARMEN MILLER, is a 74 F who presents for endoscopic surviallence of gastric ulcer PMH DM 1; CAD; hyperlipidemia; encephalopathy; a.Fib [facility] Hospitalization 05.18.22-05.31.22 for COVID with legionella pne, respiratory failure. Discharged to SNF. [facility] ED 06.03.22 with SOB and hypoxia. *[facility] hospitalization 06.06.22-06.18.22 with transfer to TCU until 08.06.22. GI consulted 06.06.22 for suspected GIB with start of PPI and octreotide drip (stopped several days later). 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 EGD 06.11.22 irregular Zline 37cm; LA Grade B esophagitis; diffuse severe inflammation, erythema and friability of entire stomach, heater probed; 5mm non- bleeding diverticulum of second portion duodenum; 4mm nonbleeding diverticulum of jejunum; non bleeding crater ulcer in jejunum. OV 11.13.22 with recommendation to continue PPI. Repeat EGD and performed screening colonoscopy. ? EGD and colonoscopy 01.27.23 EGD mucosal changes suspicious of EOE; bile gastritis. No pathologic changes save inflammation. H.Pylori negative. ? Colonoscopy poor prep. Diverticulosis. No specimens collected. OV 02.11.23 No signs of GIB, anemia or dysphagia. Continues with PPI BID OV 06.10.24 Patient has been having daily diarrhea for awhile now. She will have a formed stool on occasion. She has tried cholestyramine in the past but did not work for her. She will have breakthrough heartburn on occasion but it is managed with tums. She has no signs of GI bleed. She denies abdominal pain, melena, n/v or constipation OV 09.13.24 Pt reports decreased episodes of diarrhea since starting fiber supplementation. She will have just one episode per day now. She does have formed stools as well. She has some nausea that she associates with her heartburn. SHe does not feel pantoprazole is controlling this well. [facility] Medical History Anxiety Bladder disease Back pain On home oxygen therapy Iatrogenic pneumothorax Legionnaires' disease Wears glasses Wears partial dentures Ambulates with cane Arthritis Anemia Low iron Dietary restriction History of diverticulitis History of ulceration History of GI bleed Gastric reflux Former smoker Emphysema, unspecified Shortness of breath on exertion History of echocardiogram History of stress test Cardiology follow-up encounter Hypertension History of atrial fibrillation History of left heart catheterization (LHC) (~11/11/22) Atherosclerotic heart disease of [place] coronary artery without angina pectoris Abnormal stress test Type 1 diabetes Tobacco abuse Hematuria Diabetes mellitus Paroxysmal A-fib History of diabetes mellitus COVID-19 High cholesterol Diabetes Home Medications ?Medication ?Instructions ?Recorded ?Last Taken ?Type alendronate 70 mg tablet 70 mg PO MO Osteoporosis 11/23/24 History polysaccharide iron complex 150 mg 150 mg PO DAILY ane vasu 30 days #30 07/30/22 11/20/24 Rx iron capsule (Ferrex) caps cholecalciferol (vitamin D3) 50 50 mcg PO DAILY supple ment 09/23/22 11/23/24 History mcg (2,000 unit) tablet metoprolol tartrate 25 mg tablet 6.25 mg PO BIDCM afib 09/23/22 11/24/24 History metformin 1,000 mg tablet 1,000 mg PO BID 07/06/2403/12 History midodrine 5 mg tablet 10 mg PO BID blood pressure 07/06/24 11/24/24 History atorvastatin 40 mg tablet 20 mg (1/2 x 40 mg) PO QHS 1 10/26/23 11/23/24 Rx Cholestrol #30 tabs apixaban 5 mg tablet (Eliquis) 5 mg PO BID blood thinn er #180 tabs 09/09/24 11/20/24 Rx empagliflozin 10 mg tablet 10 mg PO DAILY 11/22/2412/13 History (Jardiance) omeprazole 40 mg capsule,delayed 40 mg PO QHS 11/22/24 11/23/24 History release potassium chloride 20 mEq 20 meq PO DAILY supplement 0 11/22/24 11/23/24 History tablet,extended release(part/cryst) (Klor-Con M) sertraline 25 mg tablet 25 mg PO DAILY 11/22/2425 History Allergy/AdvReac Type Severity Reaction Status Date / Time Sulfa (Sulfonamide Allergy Unknown GI issues Verified 11/24/24 05:53 Antibiotics) Family History Uncle Heart disease Uncle Heart disease Surgical History History of cardiac catheterization Hx of esophagogastroduodenoscopy Social History household members: spouse Smoking Status: Former smoker alcohol intake: never substance use type: does not use caffeine: Yes Type: coffee Number of servings: 2 ROS Constitutional Constitutional: Denies fatigue, fever(s), poor appetite, weight gain or weight loss Gastrointestinal Gastrointestinal: Denies belching, bloating, change in bowel habits, change in stool character, chewing difficulty, coffee ground emesis, constipation, cramping, diarrhea, dyspepsia, dysphagia, early satiety, excessive flatus, fecal incontinence, heartburn, hematemesis, hematochezia, hemorrhoids, loose stools, melena, nausea, odynophagia, rectal bleeding, tenesmus, vomiting or weight changes Vital Signs Vital Signs Vital Signs: 11/24/24 06:02 11/24/24 06:02 11/24/24 06:23 Temperature 96.4 F L 96.4 F L Temperature Source Temporal Pulse Rate 102 H 102 H Respiratory Rate 17 17 Respiratory Pattern Normal Blood Pressure 124/83 H 124/83 H Blood Pressure Mean 96 Blood Pressure Source Monitor Blood Pressure Position Semi-Fowlers Blood Pressure Location Left Arm Pulse Ox 96 96 Oxygen Delivery Method Room Air Room Air Weight Weight: 152 lb 1.903 oz Body Mass Index (BMI) 23.1 Physical Exam Const alert, oriented x3, no apparent distress and healthy appearing General Appearance: cooperative GI normal to inspection, nondistended, normoactive bowel sounds, soft to palpation, non-tender and non-distended Percussion: normal to percussion Rectal Exam: deferred Assessment & Plan Assessment/Plan (1) Eosinophilic esophagitis: (2) GI bleed: PLAN: Plan Assessment and Plan (1) Irritable bowel syndrome with diarrhea: Status: Acute Plan: This is a 74 yo female pt here today for f/u. Her diarrhea improved after starting fiber supplement. I recommended she increase it to twice a day for even more benefit. She is agreeable to this and will decrease if she finds it constipation. Her heartburn no longer is controlled with protonix. We will switch to omeprazole 40 mg daily. Last colonoscopy in 2022 with poor prep and recommendation for repeat. SHe will be scheduled for this and under EGD at the same time. -Colonoscopy and EGD -Changed PPI to omeprazole -Increase fiber to twice a day -f/u after procedure - Medications: New omeprazole 40 mg PO QDAY 60 caps 2RF
--- NOTE | 2024-11-24 07:29 | PCM.POST.ANE ---
Anesthesia: Postop Eval I Current Vital Signs Temperature: 97 F Pulse Rate: 70 Blood Pressure: 117/77 Respiratory Rate: 20 Pulse Ox: 98 Oxygen Delivery Method: Room Air Assessment Airway patent: Yes Spontaneous unlabored respirations: Yes Mental status: Awake nausea: No Vomiting: No Anesthesia Complication: No Fluid Hydration Crystalloid volume administer (ml): 20 Total IV fluid infused: 20 Progress Note Anesthesia document: Postop Eval 1 completed: Yes
--- NOTE | 2024-11-24 07:30 | OP.EGD_ITS ---
Patient Name: Ravi Beckham Procedure Date: 11/24/2024 6:17 AM Date of : 1950 Age: 74 Procedure: Upper GI endoscopy Indications: Dysphagia, Heartburn, Peptic ulcer Providers: Maurilio Mcmanus DO Referring MD: Misael Molina MD Medicines: Monitored Anesthesia Care Patient Profile: This is a 74 year old female. Refer to note in patient chart for documentation of history and physical. Patient has symptoms of chronic epigastric abdominal pain and chronic dysphagia. Complications: No immediate complications. Procedure: Pre-Anesthesia Assessment: - Prior to the procedure, a History and Physical was performed, and patient medications and allergies were reviewed. The patient is competent. The risks and benefits of the procedure and the sedation options and risks were discussed with the patient. All questions were answered and informed consent was obtained. Patient identification and proposed procedure were verified by the physician in the pre-procedure area. Mental Status Examination: alert and oriented. Airway Examination: normal oropharyngeal airway and neck mobility. Respiratory Examination: clear to auscultation. CV Examination: normal. Prophylactic Antibiotics: The patient does not require prophylactic antibiotics. Prior Anticoagulants: The patient has taken no anticoagulant or antiplatelet agents except for NSAID medication. ASA Grade Assessment: II - A patient with mild systemic disease. After reviewing the risks and benefits, the patient was deemed in satisfactory condition to undergo the procedure. The anesthesia plan was to use monitored anesthesia care (MAC). Immediately prior to administration of medications, the patient was re-assessed for adequacy to receive sedatives. The heart rate, respiratory rate, oxygen saturations, blood pressure, adequacy of pulmonary ventilation, and response to care were monitored throughout the procedure. The physical status of the patient was re-assessed after the procedure. After obtaining informed consent, the endoscope was passed under direct vision. Throughout the procedure, the patient's blood pressure, pulse, and oxygen saturations were monitored continuously. The Colonoscope was introduced through the mouth, and advanced to the second part of duodenum. The upper GI endoscopy was accomplished without difficulty. The patient tolerated the procedure well. Scope In: 7:05:20 AM Scope Out: 7:10:49 AM Total Procedure Duration Time 0 hours 5 minutes 29 seconds Findings: A mild Schatzki ring was found at the gastroesophageal junction. A medium-sized hiatal hernia was present. Diffuse severe inflammation characterized by erythema, friability and granularity was found in the entire examined stomach. Biopsies were taken with a cold forceps for histology. Verification of patient identification for the specimen was done. Estimated blood loss was minimal. Biopsies were taken with a cold forceps for Helicobacter pylori testing. Verification of patient identification for the specimen was done. Estimated blood loss was minimal. Mildly erythematous mucosa without active bleeding and with no stigmata of bleeding was found in the first portion of the duodenum. Biopsies were taken with a cold forceps for histology. Verification of patient identification for the specimen was done. Estimated blood loss was minimal. Impression: - Mild Schatzki ring. - Medium-sized hiatal hernia. - Bile gastritis. Biopsied. - Erythematous duodenopathy. Biopsied. Recommendation: - Discharge patient to home. - Resume previous diet. - Continue present medications. - Await pathology results. Procedure Code(s): --- Professional --- 06411, Esophagogastroduodenoscopy, flexible, transoral; with biopsy, single or multiple CPT copyright 2021 [employer]. All rights reserved. The codes documented in this report are preliminary and upon roll form operator review may be revised to meet current compliance requirements. Maurilio Mcmanus DO 11/24/2024 7:29:56 AM This report has been signed electronically. Number of Addenda: 0 Note Initiated On: 11/24/2024 6:17 AM
--- NOTE | 2024-11-24 07:31 | OP.CCLET_ITS ---
11/24/2024 Misael Molina MD [address] [id number] Re : Upper GI endoscopy procedure for Ravi Beckham Dear Dr. Molina This procedure was performed on November. My impressions and recommendations are as follows: Impressions : - Mild Schatzki ring. - Medium-sized hiatal hernia. - Bile gastritis. Biopsied. - Erythematous duodenopathy. Biopsied. Recommendations : - Discharge patient to home. - Resume previous diet. - Continue present medications. - Await pathology results. My findings are described in the full procedure note, which is enclosed. If I can be of further assistance, please feel free to contact me at . Sincerely, Maurilio Mcmanus, 11/24/2024 7:29:56 AM This report has been signed electronically.
--- NOTE | 2024-11-24 07:58 | OP.CCLET_ITS ---
11/24/2024 Misael Molina MD [address] [phone] Re : Colonoscopy procedure for Ravi Leachsalma Dear Dr. Molina This procedure was performed on November. My impressions and recommendations are as follows: Impressions : - Rectal prolapse. - Diverticulosis in the recto-sigmoid colon, in the sigmoid colon and in the descending colon. - Congested mucosa in the rectum, in the sigmoid colon, in the transverse colon and in the cecum. Biopsied. Recommendations : - Discharge patient to home. - Resume previous diet. - Continue present medications. - Await pathology results. - Repeat colonoscopy in 5 years for surveillance. My findings are described in the full procedure note, which is enclosed. If I can be of further assistance, please feel free to contact me at . Sincerely, Maurilio Mcmanus, 11/24/2024 7:58:28 AM This report has been signed electronically.
--- NOTE | 2024-11-24 07:58 | OP.COLON_ITS ---
Patient Name: Ravi Beckham Procedure Date: 11/24/2024 7:30 AM Date of : 1950 Age: 74 Procedure: Colonoscopy Indications: Chronic diarrhea Providers: Maurilio Mcmanus DO Referring MD: Misael Molina MD Medicines: Monitored Anesthesia Care Patient Profile: This is a 74 year old female. Refer to note in patient chart for documentation of history and physical. Patient has symptoms of chronic epigastric abdominal pain and chronic dysphagia. Last Colonoscopy: 3 years ago. Complications: No immediate complications. Procedure: Pre-Anesthesia Assessment: - Prior to the procedure, a History and Physical was performed, and patient medications and allergies were reviewed. The patient is competent. The risks and benefits of the procedure and the sedation options and risks were discussed with the patient. All questions were answered and informed consent was obtained. Patient identification and proposed procedure were verified by the physician in the pre-procedure area. Mental Status Examination: alert and oriented. Airway Examination: normal oropharyngeal airway and neck mobility. Respiratory Examination: clear to auscultation. CV Examination: normal. Prophylactic Antibiotics: The patient does not require prophylactic antibiotics. Prior Anticoagulants: The patient has taken no anticoagulant or antiplatelet agents except for NSAID medication. ASA Grade Assessment: II - A patient with mild systemic disease. After reviewing the risks and benefits, the patient was deemed in satisfactory condition to undergo the procedure. The anesthesia plan was to use monitored anesthesia care (MAC). Immediately prior to administration of medications, the patient was re-assessed for adequacy to receive sedatives. The heart rate, respiratory rate, oxygen saturations, blood pressure, adequacy of pulmonary ventilation, and response to care were monitored throughout the procedure. The physical status of the patient was re-assessed after the procedure. After I obtained informed consent, the scope was passed under direct vision. Throughout the procedure, the patient's blood pressure, pulse, and oxygen saturations were monitored continuously. The Colonoscope was introduced through the anus and advanced to the cecum, identified by appendiceal orifice and ileocecal valve. The colonoscopy was performed without difficulty. The patient tolerated the procedure well. The quality of the bowel preparation was adequate. The ileocecal valve, appendiceal orifice, and rectum were photographed. Scope In: 7:10:12 AM Scope Withdrawal Time 0 hours 7 minutes 5 seconds Scope Out: 7:22:30 AM Total Procedure Duration Time 0 hours 12 minutes 18 seconds Findings: The perianal and digital rectal examinations were normal. Moderate rectal prolapse was present. Multiple large-mouthed diverticula were found in the recto-sigmoid colon, sigmoid colon and descending colon. An area of mildly congested mucosa was found in the rectum, in the sigmoid colon, in the transverse colon and in the cecum. Biopsies were taken with a cold forceps for histology. Verification of patient identification for the specimen was done. Estimated blood loss was minimal. Impression: - Rectal prolapse. - Diverticulosis in the recto-sigmoid colon, in the sigmoid colon and in the descending colon. - Congested mucosa in the rectum, in the sigmoid colon, in the transverse colon and in the cecum. Biopsied. Recommendation: - Discharge patient to home. - Resume previous diet. - Continue present medications. - Await pathology results. - Repeat colonoscopy in 5 years for surveillance. Procedure Code(s): --- Professional --- 51354, Colonoscopy, flexible; with biopsy, single or multiple CPT copyright 2021 [employer]. All rights reserved. The codes documented in this report are preliminary and upon insert molding operator review may be revised to meet current compliance requirements. Maurilio Mcmanus DO 11/24/2024 7:58:28 AM This report has been signed electronically. Number of Addenda: 0 Note Initiated On: 11/24/2024 7:30 AM
--- NOTE | 2024-11-24 10:42 | POSTOPAN2_ITS ---
Anesthesia Postop Eval I Sum Postop Eval Completion status Anesthesia document: Postop Eval 1 completed: Yes Anesthesia Postop Eval I Summary Anesthesia Postop Eval I Summary: Anesthesia Postop Eval I: Assessment Summary Airway patent Yes 11/24/24 07:30 [email or web address] Spontaneous unlabored Yes 11/24/24 07:30 [email or web address] respirations Mental status Awake 11/24/24 07:30 [email or web address] nausea No 11/24/24 07:30 [email or web address] Vomiting No 11/24/24 07:30 [email or web address] Anesthesia Postop Eval I: Fluid Summary Crystalloid volume administer 20 11/24/24 07:30 [email or web address] (ml) Colloids volume administered ( ml) Blood Product volume administered (ml) Total IV fluid infused 20 11/24/24 07:30 [email or web address] Anesthesia Postop Eval I: Summary Notes Anesthesia Complication No 11/24/24 07:30 [email or web address] Anesthesia Complication Comment: Post-operative progress note Anesthesia: Postop Eval II Evaluation Mental status: Awake and Calm Pain Level: 0 nausea: No Vomiting: No
--- NOTE | 2024-11-24 10:42 | PCM.POSTANE2 ---
Anesthesia Postop Eval I Sum Postop Eval Completion status Anesthesia document: Postop Eval 1 completed: Yes Anesthesia Postop Eval I Summary Anesthesia Postop Eval I Summary: Anesthesia Postop Eval I: Assessment Summary Airway patent Yes 11/24/24 07:30 [email or web address] Spontaneous unlabored Yes 11/24/24 07:30 RN [email or web address] respirations Mental status Awake 11/24/24 07:30 [email or web address] nausea No 11/24/24 07:30 RN [email or web address] Vomiting No 11/24/24 07:30 [email or web address] Anesthesia Postop Eval I: Fluid Summary Crystalloid volume administer 20 11/24/24 07:30 [email or web address] (ml) Colloids volume administered ( ml) Blood Product volume administered (ml) Total IV fluid infused 20 11/24/24 07:30 RN [email or web address] Anesthesia Postop Eval I: Summary Notes Anesthesia Complication No 11/24/24 07:30 [email or web address] Anesthesia Complication Comment: Post-operative progress note Anesthesia: Postop Eval II Evaluation Mental status: Awake and Calm Pain Level: 0 nausea: No Vomiting: No
[2024-11-24 11:14] LABS: Bedside Glucose 206 mg/dL (74-106)
== END 2024-11-24 08:05 | disposition home or self-care (01) ==
LOC: EN 05:36 → AC 05:38
PROVIDERS: PCP Family Medicine; Referring Provider Family Medicine; Visit Provider Internal Medicine Gastroenterology
PROC: 0DJD8ZZ Inspection of Lower Intestinal Tract, Via Natural or Artificial Opening Endoscopic (ICD-10-PCS; CPT 45378; principal; 2024-11-24 06:25)
DX: K29.70 Gastritis, unspecified, without bleeding (principal); J43.9 Emphysema, unspecified; E10.9 Type 1 diabetes mellitus without complications; K20.0 Eosinophilic esophagitis; K92.2 Gastrointestinal hemorrhage, unspecified; Z87.891 Personal history of nicotine dependence; Z79.84 Long term (current) use of oral hypoglycemic drugs; K62.3 Rectal prolapse; E78.00 Pure hypercholesterolemia, unspecified; I10 Essential (primary) hypertension; K57.30 Diverticulosis of large intestine without perforation or abscess without bleeding; K44.9 Diaphragmatic hernia without obstruction or gangrene; K58.0 Irritable bowel syndrome with diarrhea; K25.9 Gastric ulcer, unspecified as acute or chronic, without hemorrhage or perforation; I25.10 Atherosclerotic heart disease of native coronary artery without angina pectoris; Z79.899 Other long term (current) drug therapy; K22.2 Esophageal obstruction
CPT/HCPCS: 43239; 45380; 82962; 88305; 88342; A4216

== ENCOUNTER → 2025-01-26 | Outpatient (CLI) | payer MEDICARE, OTHER, SELFPAY ==
[2025-01-26 11:11] LABS: Anion Gap 14 (5-15); BUN 16 mg/dL (4-19); BUN/Creat Ratio 16.4 RATIO (10-20); Calcium,Total 9.7 mg/dL (7.6-11.0); Carbon Dioxide 23.6 mmol/L (21.0-32.0); Chloride 102 mmol/L (98-108); Cholesterol 142 mg/dL (<=200); Creatinine, Serum 0.95 mg/dL (0.70-1.20); EST Glomerular Filtration Rate 64 (>60); Glucose 116 mg/dL (70-99); High Density Lipoprotein 46 mg/dL; Low Density Lipoprotein Calc. 58 mg/dL; Potassium 4.3 mmol/L (3.3-5.1); Sodium Level 140 mmol/L (133-145); Triglycerides 191 mg/dL; Very Low Density Lipoprotein 38 mg/dL (5-40); cholesterol:hdl ratio screen 3.09
[2025-01-26 11:56] LABS: Microalbumin,Random Urine 18.5 mg/L (NO RANGE EST.); Microalbumin:Creatinine Ratio 105.7 mg/g CRE
== END | disposition home or self-care (01) ==
LOC: MTLAB 07:44
PROVIDERS: PCP Family Medicine; Referring Provider Family Medicine; Visit Provider Family Medicine
DX: E11.9 Type 2 diabetes mellitus without complications (principal)
CPT/HCPCS: 36415; 80048; 80061; 82043; 82570

== ENCOUNTER → 2025-06-16 | Outpatient (CLI) | payer MEDICARE, OTHER, SELFPAY ==
[2025-06-16 17:47] LABS: Hematocrit 40.2 % (37-47); Hemoglobin 12.7 g/dL (12.0-15.0); Mean Corp Hgb Conc 31.6 g/dL (32-36); Mean Corpuscular Volume 93.9 fL (81-99); Mean Platelet Vol. 10.2 fl (6.2-12.0); Platelet Count 445 K/mm3 (150-450); RBC Distribution Width CV 14.5 % (11.6-14.6); RBC Distribution Width SD 50.3 fl (35.1-43.9); Red Blood Count 4.28 M/mm3 (4.2-5.4); White Blood Count 10.5 K/mm3 (4.4-11.0)
== END | disposition home or self-care (01) ==
LOC: MFPLAB 15:06
PROVIDERS: PCP Family Medicine; Visit Provider Internal Medicine Cardiovascular Disease
DX: I48.0 Paroxysmal atrial fibrillation (principal)
CPT/HCPCS: 36415; 85027

== ENCOUNTER 2025-06-24 14:30 | Inpatient (IN) | payer MEDICARE, OTHER, SELFPAY ==
[2025-06-24] VITALS (25 sets, daily range): BP systolic 84–161; BP diastolic 63–137; PULSE 83–164; RESP 13–26; TEMP 36.1–37.3; O2SAT 92–100; BMI 23.4; BMI 23.3
--- NOTE | 2025-06-24 15:09 | EKG12_ITS ---
Test Reason : GI BLEED Blood Pressure : */* mmHG Vent. Rate : 136 BPM Atrial Rate : 136 BPM P-R Int : 142 ms QRS Dur : 70 ms QT Int : 294 ms P-R-T Axes : 63 59 71 degrees QTcB Int : 442 ms Sinus tachycardia Otherwise normal ECG Confirmed by Aniket Cheema ([id number]), telegraph editor LAZARUS RATLIFF ([id number]) on 06/27/2025 5:46:53 AM Referred By: Confirmed By: Aniket Cheema
--- OUTSIDE RECORDS SUMMARY | 2025-06-24 15:23 | XMS RPT_ITS | CCD ---
Author Organization [facility] Care Team Providers Care Lead Coater Name Role Phone Dr. Misael Molina Primary Care Provider Dr. Hari Snyder Emergency Provider Dr. Filiberto Edge Admit Provider Dr. Filiberto Edge Attending Provider Minesh, Dr. De Los Santos Other Provider Dr. Dax Barksdale Other Provider Dr. Jackson Graham Attending Provider 1([facility])[phone] Jackson Graham Other Provider Dr. Travis Germain Other Provider Collin PROFESSOR OF PATHOLOGY, PROFESSOR OF PATHOLOGY-C Roselyn Other Provider Dr. Mellisa Victoria Referring Provider Dr. Aime Hanks Attending Provider Dr. Tenzin Schwartz Attending Provider Unavailable Dr. Tenzin Schwartz Other Provider Unavailable Dr. Travis Germain Attending Provider Dr. Gerald Low Other Provider Dr. Gerald Low Attending Provider Dr. Isaak Ellison Emergency Provider [phone] Gerald Low Admit Provider Yonathan, Dr. Thorpe Attending Provider Dr. Misael Daniels Attending Provider Dr. Jackson Graham Referring Provider 1([facility])[phone] Filiberto Edge Referring Provider 1([facility])[phone] Dr. Gerald Low Referring Provider Dr. Aric Hernandez Other Provider Unavailab jayjay Antonio, Dr. Tadeo Other Provider Dr. Shwetha Antonio Attending Provider [place], Dr. Mccall Other Provider Fletcher, Dr. Mccall Attending Provider Fletcher, Dr. Mccall Referring Provider Bernard, Dr. Art Srivastava Referring Provider Tracy, Dr. Douglas Primary Care Provider 1([facility])[phone] Dr. Misael Daniels Attending Provider 1([facility])[phone] Dr. Art Wagner Chi Referring Provider Malena Malik Attending Provider Unavailable Dr. Misael Molina Referring Provider 1([facility])[phone] Misael Daniels Referring Provider 1([facility])[phone] Dr. Misael Daniels Other Provider 1([facility])[phone] Misael Molina Primary Care Provider 1([facility])[phone] Dr. Misael Daniels Attending Provider 1([facility])[phone] Dr. Maurilio Mcmanus Attending Provider 1([facility])[phone] Chau MORALES, LINDA Og Attending Provider Dr. Misael Molina Primary Care Provider 1([facility])[phone] Dr. Misael Daniels Attending Provider 1([facility])[phone] Dr. Misael Daniels Referring Provider 1([facility])[phone] Dr. Misael Daniels Other Provider 1([facility])[phone] Misael Molina Referring Provider 1([facility])[phone] Malena Malik Attending Provider Unavailable Dr. Maurilio Mcmanus Attending Provider 1([facility])[phone] Chau PROFESSOR OF PATHOLOGY, LINDA Og Attending Provider Dr. Maurilio Mcmanus Other Provider 1([facility])[phone] Misael Molina Primary Care Provider 1([facility])[phone] Dr. Misael Molina Referring Provider Chau MORALES, LINDA Og Attending Provider Dr. Misael Molina Primary Care Provider 1([facility])[phone] Tracy, Dr. Douglas Referring Provider 1([facility])[phone] Yonathan, Dr. Thorpe Attending Provider 1([facility])[phone] Tracy DAY, Dr. Douglas Primary Care Provider 1([facility] )[phone] Tracy DAY, Dr. Douglas Referring Provider 1([facility])[phone] Yonathan RODRIGUEZ, Dr. Thorpe Attending Provider Yonathan RODRIGUEZ, Dr. Thorpe Other Provider 1([facility])[phone] Tracy DAY, Dr. Douglas Attending Provider 1([facility])[phone] Tracy DAY, Dr. Douglas Primary Care Provider 1([facility] )[phone] Hollie DAY, Dr. Pinzon Attending Provider 1([facility])[phone] Tracy DAY, Dr. Douglas Referring Provider 1([facility])[phone] Deni DAY, Dr. Marcial Attending Provider Tracy, Misael Referring Unavailable Molina, Misael Primary Care Unavailable Maurilio Mcmanus Consulting Unavailable Maurilio Mcmanus Attending Unavailable Molina, Misael Referring Unavailable Molina, Misael Primary Care Unavailable Anju Mitchell Attending Unavailable Molina, Misael Primary Care Unavailable Aniket Cheema Attending Unavailable Molina, Misael Attending Unavailable Molina, Misael Referring Unavailable Molina, Misael Primary Care Unavailable Sibilia, Dax Yannick Referring Unavailable Molina, Misael Primary Care Unavailable Sibilia, aDx Lanier Attending Unavailable Molina, Misael Attending Unavailable Molina, Misael Referring Unavailable Molina, Misael Primary Care Unavailable Sibilia, Dax Lanier Attending Unavailable Sibilia, Dax V Referring Unavailable Molina, Misael Primary Care Unavailable Molina, Misael Referring Unavailable Molina, Misael Primary Care Unavailable Maurilio Mcmanus Attending Unavailable Molina, Misael Primary Care Unavailable Malena Redd Attending Unavail able Molina, Misael Referring Unavailable Molina, Misael Referring Unavailable Molina, Misael Primary Care Unavailable Aniket Cheema Attending Unavailable Allergies Allergy Classification Reported Allergen(s) Allergy Type Date of Onset Reaction(s) Facility (15 sources) Sulfonamides (Antibiotic) Allergy to substance 2 GI issues [facility] (1 source) Sulfonamides (Antibiotic) Drug allergy (disorder) [facility] Repository Medications Current Medications Medication Drug Class(es) Dates Sig (Normalized) Sig (Original) alendronic acid 70 mg oral tablet (20 sources) Bisphosphonate Start: 05-18-2022 take 1 tablet by mouth once Alendronate 70 mg tablet Active 70 mg PO MO May 18, 2022 12:00am Osteoporosis cholecalciferol 0.05 mg oral tablet (15 sources) Vitamin D Start: 09-23-2022 take 1 tablet by mouth once daily Cholecalciferol (Vitamin D3) 50 mcg (2,000 unit) tablet Active 50 ug PO DAILY September 23, 2022 1:00am supplement Cholestyramine Resin (7 sources) Bile Acid Sequestrant Start: 11-24-2024 take 1 dose by mouth twice daily Cholestyramine (With Sugar) 4 gram powder Active 4 g PO TWICE A DAY 378 3 November 24, 2024 1:00am administer w/meal; avoid other meds within 1hr before or 4-6hr after dose Start: 11-24-2024 take 1 dose by mouth twice daily Cholestyramine (With Sugar) 4 gram powder Active 4 g PO TWICE A DAY 378 November 24, 2024 1:00am administer w/meal; avoid other meds within 1hr before or 4-6hr after dose Start: 12-10-2023 End: 07-06-2024 take 1 dose by mouth once daily Cholestyramine (With Sugar) 4 gram powder Discontinued 4 g PO DAILY 348.6 5 December 10, 2023 1:00am July 06, 2024 1:53pm administer w/meal; avoid other meds within 1hr before or 4-6hr after dose Start: 12-10-2023 End: 07-06-2024 take 1 dose by mouth once daily Cholestyramine (With Sugar) 4 gram powder Discontinued 4 g PO DAILY 348.6 December 10, 2023 1:00am July 06, 2024 1:53pm administer w/meal; avoid other meds within 1hr before or 4-6hr after dose Start: 12-10-2023 take 1 dose by mouth once daily Cholestyramine (With Sugar) Active 4 GM PO DAILY 348.6 December 10, 2023 12:00am administer w/meal; avoid other meds within 1hr before or 4-6hr after dose empagliflozin 10 mg oral tablet (3 sources) Sodium-Glucose Cotransporter 2 Inhibitor Start: 11-22-2024 take 1 tablet by mouth once daily Empagliflozin (Empagliflozin 10 Mg Tablet) 10 mg tablet Active 10 mg PO DAILY November 22, 2024 1:00am metFORMIN hydrochloride 1000 mg oral tablet (20 sources) Biguanide Start: 07-06-2024 take 1 tablet by mouth twice daily Metformin 1,000 mg tablet Active 1000 mg PO TWICE A DAY July 06, 2024 12:00am Start: 05-18-2022 End: 07-06-2024 take 1 tablet by mouth once daily Metformin 500 mg tablet Discontinued 500 mg PO DAILY May 18, 2022 12:00am July 06, 2024 1:54pm DIABETES metoprolol tartrate 25 mg oral tablet (20 sources) beta-Adrenergic Gunnar Start: 09-23-2022 take 25 mg by mouth twice daily at mealtime Metoprolol Tartrate Active 25 MG PO TWICE DAILY WITH MEALS September 23, 2022 11:22am Start: 07-30-2022 End: 09-23-2022 take 6.25 mg by mouth twice daily at mealtime Metoprolol Tartrate 25 mg tablet Active 6.25 mg PO TWICE DAILY WITH MEALS September 23, 2022 11:22am afib Start: 07-30-2022 End: 09-23-2022 take 6.25 mg by mouth twice daily at mealtime Metoprolol Tartrate Active 6.25 MG PO TWICE DAILY WITH MEALS September 23, 2022 10:22am Start: 06-18-2022 End: 07-30-2022 Metoprolol Tartrate 25 mg ta blet Discontinued 12.5 mg PO TWICE A DAY June 18, 2022 2:24pm July 30, 2022 7:52pm BP Start: 06-18-2022 End: 07-30-2022 take 12.5 mg by mouth twice daily Metoprolol Tartrate Discontinued 12.5 MG PO TWICE A DAY June 18, 2022 1:24pm July 30, 2022 6:52pm midodrine hydrochloride 5 mg oral tablet (20 sources) alpha-Adrenergic Agonist Start: 07-06-2024 take 2 tablets by mouth twice daily Midodrine 5 mg tablet Active 10 mg PO TWICE A DAY July 06, 2024 1:54pm blood pressure Start: 07-30-2022 End: 07-06-2024 take 2 tablets by mouth three times daily at mealtime Midodrine 5 mg Tablet Discontinued 10 mg PO 3 TIMES DAILY WITH MEALS 180 30 0 July 30, 2022 12:00am July 06, 2024 1:55pm blood pressure Start: 07-30-2022 take 10 mg by mouth three times daily at mealtime Midodrine Active 10 MG PO 3 TIMES DAILY WITH MEALS 180 30 July 29, 2022 11:00pm Start: 06-18-2022 End: 07-30-2022 take 3 tablets by mouth three times daily at mealtime Midodrine 5 mg tablet Discontinued 15 mg PO 3 TIMES DAILY WITH MEALS June 18, 2022 2:24pm July 30, 2022 7:53pm BP Start: 06-18-2022 End: 07-30-2022 take 15 mg by mouth three times daily at mealtime Midodrine Discontinued 15 MG PO 3 TIMES DAILY WITH MEALS June 18, 2022 1:24pm July 30, 2022 6:53pm polysaccharide iron complex 150 mg oral capsule (16 sources) Start: 07-30-2022 Polysaccharide Iron Complex (Ferrex 150) 150 mg iron Capsule Active 150 mg PO DAILY 30 30 0 July 30, 2022 12:00am anemia microencapsulated potassium chloride 20 meq extended release oral tablet (20 sources) Start: 11-22-2024 Potassium Chlo ride (Klor-Con M20) 20 mEq tablet,ER particles/crystals Active 20 meq PO DAILY November 22, 2024 1:00am supplement Start: 07-30-2022 End: 11-22-2024 Potassium Chloride (Klor-Con M20) 20 mEq tablet,ER particles/crystals Discontinued 20 meq PO TWICE DAILY WITH MEALS 60 30 12 November 14, 2022 10:44am November 22, 2024 11:23am supplement sertraline 25 mg oral tablet (20 sources) Serotonin Reuptake Inhibitor Start: 11-22-2024 take 1 tablet by mouth once daily Sertraline 25 mg tablet Active 25 mg PO DAILY November 22, 2024 1:00am Start: 09-23-2022 End: 09-25-2022 take 1 tablet by mouth once daily Sertraline 25 mg tablet Discontinued 25 mg PO DAILY September 23, 2022 1:00am September 25, 2022 3:14pm Start: 06-18-2022 End: 07-30-2022 Sertraline 50 mg tablet Disc ontinued 25 mg PO DAILY June 18, 2022 2:24pm July 30, 2022 7:53pm Depression Start: 06-18-2022 End: 07-30-2022 take 25 mg by mouth once daily Sertraline Discontinued 25 MG PO DAILY June 18, 2022 1:24pm July 30, 2022 6:53pm Completed/Discontinued Medications Medication Drug Class(es) Dates Sig (Normalized) Sig (Original) acetaminophen 500 mg oral tablet (19 sources) Start: 06-18-2022 End: 09-25-2022 take 1-10 tablets by mouth every eight hours as needed for pain Acetaminophen 500 mg Tablet Discontinued 1000 mg PO EVERY 8 HOURS NEEDED as needed for Pain 1-10 Or Fever 0 0 June 18, 2022 12:00am September 25, 2022 3:13pm Start: 06-18-2022 End: 09-25-2022 take 1000 mg by mouth every eight hours as needed Acetaminophen Discontinued 1000 MG PO EVERY 8 HOURS NEEDED 0 June 17, 2022 11:00pm September 25, 2022 2:13pm albuterol 0.833 mg/ml / ipratropium bromide 0.167 mg/ml inhalation solution (20 sources) Anticholinergic, beta2-Adrenergic Agonist Start: 09-23-2022 End: 09-25-2022 take 1 mL by inhalation every six hours as needed Ipratropium-Albuterol 0.5 mg-3 mg(2.5 mg base)/3 mL solution for nebulization Discontinued 3 mL INHALATION EVERY 6 HOURS as needed September 23, 2022 1:00am September 25, 2022 3:14pm Start: 09-23-2022 End: 09-25-2022 take 1 mL by inhalation every six hours Ipratropium-Albuterol Discontinued 3 ML INHALATION EVERY 6 HOURS September 23, 2022 12:00am September 25, 2022 2:14pm Start: 05-31-2022 End: 07-30-2022 take 1 mL by inhalation four times daily Ipratropium-Albuterol 0.5 mg-3 mg(2.5 mg base)/3 mL solution for nebulization Discontinued 3 mL INHALATION 4 TIMES DAILY June 18, 2022 2:24pm July 30, 2022 7:52pm Breathing Start: 05-31-2022 End: 07-30-2022 take 1 mL by inhalation four times daily Ipratropium-Albuterol Discontinued 3 ML INHALATION 4 TIMES DAILY June 18, 2022 1:24pm July 30, 2022 6:52pm apixaban 5 mg oral tablet (20 sources) Factor Xa Inhibitor Start: 05-31-2022 End: 01-23-2025 take 1 tablet by mouth twice daily Apixaban (Eliquis) 5 mg tablet Discontinued 5 mg PO TWICE A DAY 180 4 September 09, 2024 12:57pm January 23, 2025 3:13pm blood thinner Ewyqs-Zjnu-Rfxrp -Dcmcpl-Bt-Ccg (Og (With Collagen)) 7-7-1.5 gram Powder In Packet (19 sources) Start: 06-18-2022 End: 06-18-2022 Koykz-Ibai-Cjung-Col lag-Mv-Min (Og (With Collagen)) 7-7-1.5 gram Powder In Packet Discontinued 1 NMA PO TWICE DAILY WITH MEALS 0 0 June 18, 2022 12:00am June 18, 2022 2:25pm Start: 06-18-2022 End: 06-18-2022 Obbrw-Ipex-Rvjgp-Collag-Mv-M in (Og (With Collagen)) 7-7-1.5 gram Powder In Packet Discontinued 1 NMA PO TWICE DAILY WITH MEALS 0 June 18, 2022 12:00am June 18, 2022 2:25pm Start: 06-18-2022 End: 06-18-2022 Vyqgs-Wqmw-Tftzg-Collag-Mv-M in (Og (With Collagen)) 7-7-1.5 gram Powder In Packet Discontinued 1 PACKET PO TWICE DAILY WITH MEALS 0 June 17, 2022 11:00pm June 18, 2022 1:25pm Start: 06-18-2022 End: 06-18-2022 Hadpj-Oogf-Avolr-Collag-Mv-M in (Og (With Collagen)) 7-7-1.5 gram Powder In Packet Discontinued 1 PACKET PO TWICE DAILY WITH MEALS 0 June 18, 2022 12:00am June 18, 2022 2:25pm Start: 06-18-2022 Gktlr-Szra-Csw zf-Kcbtcg-Db-Min (Og (With Collagen)) 7-7-1.5 gram Powder In Packet Active 1 PACKET PO TWICE DAILY WITH MEALS 0 June 18, 2022 12:00am Iryia-Mwfc-Hsfpo-Collag-Mv-M in (Og (With Collagen)) 7-7-1.5 gram powder in packet (18 sources) Start: 06-18-2022 End: 07-30-2022 Vmumf-Dpwn-Wlefq-Collag-Mv-M in (Og (With Collagen)) 7-7-1.5 gram powder in packet Discontinued 1 NMA PO TWICE DAILY WITH MEALS June 18, 2022 2:24pm July 30, 2022 7:52pm Supplement Start: 06-18-2022 End: 07-30-2022 Ujnci-Gfsd-Esbeq-Collag-Mv-M in (Og (With Collagen)) 7-7-1.5 gram powder in packet Discontinued 1 NMA PO TWICE DAILY WITH MEALS June 18, 2022 2:24pm July 30, 2022 7:52pm Start: 06-18-2022 End: 07-30-2022 Nmtwi-Kdap-Kyvek-Collag-Mv-M in (Og (With Collagen)) 7-7-1.5 gram powder in packet Discontinued 1 PACKET PO TWICE DAILY WITH MEALS June 18, 2022 1:24pm July 30, 2022 6:52pm Start: 06-18-2022 End: 07-30-2022 Skbmn-Kzgo-Cztmh-Collag-Mv-M in (Og (With Collagen)) 7-7-1.5 gram powder in packet Discontinued 1 PACKET PO TWICE DAILY WITH MEALS June 18, 2022 2:24pm July 30, 2022 7:52pm Start: 06-18-2022 Uibuw-Iskx-Zkb ws-Wjlwus-Vs-Min (Og (With Collagen)) 7-7-1.5 gram powder in packet Active 1 PACKET PO TWICE DAILY WITH MEALS June 18, 2022 2:24pm aspirin 81 mg delayed release oral tablet (15 sources) Platelet Aggregation Inhibitor, Nonsteroidal Anti-inflammatory Drug Start: 10-17-2022 End: 06-24-2023 Aspirin (Adult Low Dose Aspirin) 81 mg tablet,delayed release (DR/EC) Discontinued 81 mg PO DAILY October 17, 2022 1:00am June 24, 2023 1:11pm atorvastatin 40 mg oral tablet (20 sources) HMG-CoA Reductase Inhibitor Start: 07-22-2023 End: 02-21-2025 Atorvastatin 40 mg tablet Discontinued 20 mg PO AT BEDTIME 30 August 26, 2024 11:44am February 21, 2025 3:23pm Cholestrol Start: 07-22-2023 take 20 mg by mouth at bedtime Atorvastatin Active 20 MG PO AT BEDTIME July 21, 2023 11:00pm Start: 11-11-2022 End: 07-22-2023 take 1 tablet by mouth at bedtime Atorvastatin 40 mg tablet Discontinued 40 mg PO AT BEDTIME 90 November 11, 2022 1:22pm July 22, 2023 12:36pm Cholestrol Start: 11-11-2022 End: 11-11-2022 Atorvastatin 40 mg tablet Discontinued 20 mg PO AT BEDTIME 90 November 11, 2022 11:11am November 11, 2022 1:22pm Cholestrol Start: 11-11-2022 End: 11-11-2022 take 20 mg by mouth at bedtime Atorvastatin Discontinu ed 20 MG PO AT BEDTIME November 11, 2022 10:11am November 11, 2022 12:22pm Start: 05-18-2022 End: 11-11-2022 take 1 tablet by mouth at bedtime Atorvastatin 20 mg tablet Discontinued 20 mg PO AT BEDTIME May 18, 2022 12:00am November 11, 2022 11:13am Cholestrol ciprofloxacin 250 mg oral tablet (16 sources) Quinolone Antimicrobial Start: 08-06-2022 End: 09-23-2022 take 1 tablet by mouth twice daily Ciprofloxacin Hcl (Cipro) 250 mg tablet Discontinued 250 mg PO TWICE A DAY 14 August 06, 2022 12:00am September 23, 2022 11:27am digoxin 0.125 mg oral tablet (20 sources) Cardiac Glycoside Start: 06-18-2022 End: 09-25-2022 take 1 tablet by mouth once daily Digoxin 125 mcg (0.125 mg) Tablet Discontinued 125 ug PO DAILY 30 30 0 July 30, 2022 12:00am September 25, 2022 4:05pm 24 hr dilTIAZem hydrochloride 120 mg extended release oral capsule (20 sources) Calcium Channel Gunnar Start: 06-06-2022 End: 06-18-2022 take 1 capsule by mouth twice daily Diltiazem Hcl 120 mg capsule,extended release 24hr Discontinued 120 mg PO TWICE A DAY June 06, 2022 3:01pm June 18, 2022 10:52am Start: 05-31-2022 End: 06-06-2022 take 1 capsule by mouth every twelve hours Diltiazem Hcl 120 mg Capsule,Extended Release 24hr Discontinued 120 mg PO EVERY 12 HOURS 0 0 May 31, 2022 12:00am June 06, 2022 3:01pm famotidine 20 mg oral tablet (15 sources) Histamine-2 Receptor Antagonist Start: 09-23-2022 End: 09-25-2022 take 1 tablet by mouth once daily Famotidine 20 mg tablet Discontinued 20 mg PO DAILY September 23, 2022 1:00am September 25, 2022 3:13pm Insulin Glargine-Yfgn (20 sources) Start: 05-31-2022 End: 06-18-2022 Insulin Glargine-Yfgn 100 unit/mL (3 mL) Insulin Pen Discontinued 10 U SC DAILY 0 0 May 31, 2022 12:00am June 18, 2022 10:54am Start: 05-31-2022 End: 06-18-2022 Insulin Glargine-Yfgn 100 un it/mL (3 mL) Insulin Pen Discontinued 10 U SC DAILY 0 May 31, 2022 12:00am June 18, 2022 10:54am Start: 05-31-2022 End: 06-18-2022 Insulin Glargine-Yfgn Discon tinued 10 UNIT SC DAILY 0 May 30, 2022 11:00pm June 18, 2022 9:54am Start: 05-31-2022 End: 06-18-2022 Insulin Glargine-Yfgn Discon tinued 10 UNIT SC DAILY 0 May 31, 2022 12:00am June 18, 2022 10:54am Start: 05-31-2022 Insulin Glargi ne-Yfgn Active 10 UNIT SC DAILY 0 May 31, 2022 12:00am 3 ml insulin lispro 100 unt/ml pen injector (20 sources) Insulin Analog Start: 06-03-2022 End: 06-18-2022 Insulin Lispro (Humalog Pen) 100 unit/mL Insulin Pen Discontinued 0 U SC THREE TIMES A DAY June 03, 2022 12:00am June 18, 2022 10:53am Please contact the information source for Protocol details. Start: 06-03-2022 End: 06-18-2022 Insulin Lispro (Humalog Pen) 100 unit/mL Insulin Pen Discontinued 0 UNIT SC THREE TIMES A DAY June 02, 2022 11:00pm June 18, 2022 9:53am Magnesium Chloride (20 sources) Start: 09-23-2022 End: 09-25-2022 take 1 tablet by mouth once daily Magnesium Chloride 64 mg tablet extended release Discontinued 64 mg PO DAILY September 23, 2022 1:00am September 25, 2022 3:14pm Start: 09-23-2022 End: 09-25-2022 take 64 mg by mouth once daily Magnesium Chloride Disc ontinued 64 MG PO DAILY September 23, 2022 1:00am September 25, 2022 3:14pm Start: 09-23-2022 End: 09-25-2022 take 64 mg by mouth once daily Magnesium Chloride Disc ontinued 64 MG PO DAILY September 23, 2022 12:00am September 25, 2022 2:14pm Start: 06-18-2022 End: 07-30-2022 Magnesium Chloride (Mag 64) 64 mg tablet,delayed release (DR/EC) Discontinued 128 mg PO TWICE A DAY June 18, 2022 2:24pm July 30, 2022 7:52pm Supplement methenamine hippurate 1000 m g oral tablet (20 sources) Start: 09-25-2022 End: 12-24-2022 Methenamine Hippurate 1 gram tablet Discontinued 1 g PO AT BEDTIME September 25, 2022 1:00am December 24, 2022 3:37pm Start: 05-18-2022 End: 09-23-2022 Methenamine Hippurate 1 gram tablet Discontinued 1 g PO AT BEDTIME May 18, 2022 12:00am September 23, 2022 11:28am Decrease UTI metoclopramide 5 mg oral tablet (7 sources) Dopamine-2 Receptor Antagonist Start: 03-10-2023 End: 06-24-2023 take 1 tablet by mouth twice daily 30 minutes before mealtime Metoclopramide Hcl (Reglan) 5 mg tablet Discontinued 5 mg PO TWICE A DAY 60 3 March 10, 2023 12:00am June 24, 2023 1:11pm administer 30 minutes before meals mirtazapine 15 mg oral tablet (16 sources) Start: 07-30-2022 End: 12-24-2022 take 7.5 mg by mouth at bedtime Mirtazapine 15 mg Tablet Discontinued 7.5 mg PO AT BEDTIME July 30, 2022 12:00am December 24, 2022 3:38pm Start: 07-30-2022 End: 12-24-2022 take 7.5 mg by mouth at bedtime Mirtazapine Discontinu ed 7.5 MG PO AT BEDTIME July 29, 2022 11:00pm December 24, 2022 2:38pm naproxen 500 mg delayed release oral tablet (20 sources) Nonsteroidal Anti-inflammatory Drug Start: 05-18-2022 End: 05-31-2022 take 1 tablet by mouth twice daily Naproxen (Ec-Naproxen) 500 mg tablet,delayed release (DR/EC) Discontinued 500 mg PO TWICE A DAY May 18, 2022 12:00am May 31, 2022 4:04pm nystatin 100 unt/mg topical powder (20 sources) Polyene Antifungal Start: 06-18-2022 End: 07-30-2022 Nystatin (Nyamyc) 100,000 unit/gram powder Discontinued 1 NMA TOPICAL THREE TIMES A DAY June 18, 2022 2:24pm July 30, 2022 7:53pm Skin irritation Please contact the information source for Protocol details. Start: 06-18-2022 End: 07-30-2022 Nystatin (Nyamyc) 100,000 un it/gram powder Discontinued 1 APPLIC TOPICAL THREE TIMES A DAY June 18, 2022 1:24pm July 30, 2022 6:53pm omeprazole 40 mg delayed release oral capsule (20 sources) Proton Pump Inhibitor Start: 09-13-2024 End: 06-16-2025 take 1 capsule by mouth at bedtime Omeprazole 40 mg capsule,delayed release(DR/EC) Discontinued 40 mg PO AT BEDTIME November 22, 2024 1:00am June 16, 2025 11:24am Start: 09-23-2022 End: 09-25-2022 take 1 capsule by mouth once daily Omeprazole 40 mg capsule,delayed release(DR/EC) Discontinued 40 mg PO DAILY September 23, 2022 1:00am September 25, 2022 3:13pm Start: 06-06-2022 End: 07-30-2022 take 2 capsules by mouth once daily Omeprazole 20 mg Capsule,Delayed Release(Dr/Ec) Discontinued 40 mg PO DAILY June 06, 2022 12:00am July 30, 2022 7:53pm GERD Start: 06-06-2022 End: 07-30-2022 take 40 mg by mouth once daily Omeprazole Discontinued 40 MG PO DAILY June 05, 2022 11:00pm July 30, 2022 6:53pm Start: 05-18-2022 take 40 mg by mouth once daily Omeprazole Active 40 MG PO DAILY May 18, 2022 12:00am ondansetron 4 mg oral tablet (20 sources) Serotonin-3 Receptor Antagonist Start: 05-18-2022 End: 07-30-2022 take 1 tablet by mouth three times daily as needed for nausea Ondansetron Hcl 4 mg tablet Discontinued 4 mg PO 3 TIMES DAILY NEEDED as needed for Nausea May 18, 2022 12:00am July 30, 2022 7:53pm oxyCODONE hydrochloride 5 mg oral tablet (5 sources) Opioid Agonist Start: 07-25-2023 End: 01-07-2024 take 1 tablet by mouth every six hours as needed for pain Oxycodone 5 mg tablet Discontinued 5 mg PO EVERY 6 HOURS as needed for pain 15 3 0 July 25, 2023 January 07, 2024 1:04pm Iatrogenic pneumothorax Postprocedural pneumothorax 5-10 mg every six hours as needed for pain pantoprazole 40 mg delayed release oral tablet (20 sources) Proton Pump Inhibitor Start: 06-18-2022 End: 11-22-2024 take 1 tablet by mouth twice daily Pantoprazole 40 mg tablet,delayed release (DR/EC) Discontinued 40 mg PO TWICE A DAY 60 30 0 July 30, 2022 7:55pm November 22, 2024 11:21am GERD sodium chloride 0.111 meq/ml nasal spray (20 sources) Start: 09-23-2022 End: 09-25-2022 Sodium Chloride ([facility]) 0.65 % aerosol,spray Discontinued 1 NMA INTRANASAL DAILY September 23, 2022 1:00am September 25, 2022 3:14pm Start: 09-23-2022 End: 09-25-2022 Sodium Chloride ([facility]) 0 .65 % aerosol,spray Discontinued 1 SPRAY INTRANASAL DAILY September 23, 2022 12:00am September 25, 2022 2:14pm Start: 05-31-2022 End: 07-30-2022 Sodium Chloride ([place] harshad) 0.65 % aerosol,spray Discontinued 1 NMA NASAL TWICE A DAY June 18, 2022 2:24pm July 30, 2022 7:53pm Nasal spray Start: 05-31-2022 End: 07-30-2022 Sodium Chloride (Deep [place] Na harshad) 0.65 % aerosol,spray Discontinued 1 SPRAY NASAL TWICE A DAY June 18, 2022 1:24pm July 30, 2022 6:53pm sucralfate 1000 mg oral tablet (20 sources) Aluminum Complex Start: 06-18-2022 End: 12-24-2022 take 1 tablet by mouth 1 hour(s) before mealtime Sucralfate 1 gram tablet Discontinued 1 g PO ONE HOURS BEFORE MEALS & BED 120 30 0 July 30, 2022 7:55pm December 24, 2022 3:37pm Stomach tamsulosin hydrochloride 0.4 mg oral capsule (20 sources) alpha-Adrenergi c Gunnar Start: 09-23-2022 End: 09-25-2022 take 1 capsule by mouth once daily Tamsulosin 0.4 mg capsule Discontinued 0.4 mg PO DAILY September 23, 2022 1:00am September 25, 2022 3:14pm Start: 06-18-2022 End: 07-30-2022 take 1 capsule by mouth twice daily Tamsulosin 0.4 mg capsule Discontinued 0.4 mg PO TWICE A DAY June 18, 2022 2:24pm July 30, 2022 7:54pm Urine retention voriconazole 200 mg oral tablet (20 sources) Azole Antifungal Start: 06-18-2022 End: 09-25-2022 take 1 tablet by mouth twice daily Voriconazole 200 mg tablet Discontinued 200 mg PO TWICE A DAY 54 27 0 July 30, 2022 7:55pm September 25, 2022 3:14pm Antinfungal stop date of 08/31/2022 Problems Active Problems Problem Classification Problem Date Documented Da karime Episodic/Chronic Acute posthemorrhagic anemia (20 sources) Acute posthemorrhagic anemia; Translations: [Acute posthemorrhagic anemia] Episodic Cardiac dysrhythmias (20 sources) Atrial fibrillation with rapid ventricular response; Translations: [Unspecified atrial fibrillation] Onset: 06-22-2025 Chronic Comment on above: On rate control medi cation and anticoagulation the patient continues to have short bursts of paroxysmal atrial fibrillation with a last a minute or less they resolved spontaneously with her sitting down. I did go over vagal maneuvers that she could trial if they persist longer than a minute or 2. Chronic obstructive pulmonary disease and bronchiectasis (20 sources) Acute exacerbation of chronic obstructive airways disease; Translations: [Chronic obstructive pulmonary disease with (acute) exacerbation] Chronic Complications of surgical procedures or medical care (5 sources) Iatrogenic pneumothorax; Translations: [Postprocedural pneumothorax] 07-30-2023 Episodic Coronary atherosclerosis and other heart disease (20 sources) Coronary atherosclerosis; Translations: [Atherosclerotic heart disease of [place] coronary artery without angina pectoris] Onset: 07-06-2024 Chronic Comment on above: Patient has a histor y of mild coronary artery disease by cath November 11, 2022. Is a 25% circumflex and the right coronary is the LV function was normal. Ejection fraction estimated 60% by echo. Deficiency and other anemia (8 sources) Anemia; Translations: [Anemia, unspecified] 02-11-2023 Episodic Comment on above: 2021 WITH GI BLEED Deficiency and other anemia (2 sources) Anemia, unspecified; Translations: [Anemia, unspecified] 02-11-2023 Episodic Diabetes mellitus without complication (20 sources) Diabetes mellitus; Translations: [Type 2 diabetes mellitus without complications] Onset: 01-31-2025 Chronic Diseases of white blood cells (20 sources) Leukocytosis; Translations: [Elevated white blood cell count, unspecified] Chronic Comment on above: Etiology unclear Disorders of lipid metabolism (20 sources) Hyperlipidemia; Translations: [Hyperlipidemia, unspecified] Chronic Esophageal disorders (12 sources) Eosinophilic esophagitis; Translations: [Eosinophilic esophagitis] Onset: 12-08-2024 02-11-2023 Chronic Fluid and electrolyte disorders (20 sources) Dehydration; Translations: [Dehydration] Episodic Gastritis and duodenitis (20 sources) Chronic gastritis; Translations: [Unspecified chronic gastritis without bleeding] Chronic Gastroduodenal ulcer (except hemorrhage) (1 source) Gastric ulcer, unspecified as acute or chronic, without hemorrhage or perforation; Translations: [Gastric ulcer, unspecified as acute or chronic, without hemorrhage or perforation] Onset: 12-08-2024 Chronic Genitourinary symptoms and ill-defined conditions (20 sources) Retention of urine; Translations: [Retention of urine, unspecified] Episodic Malaise and fatigue (20 sources) Asthenia; Translations: [Weakness] Episodic Mycoses (20 sources) Pneumonia in aspergillosis; Translations: [Aspergillosis, unspecified] Episodic Osteoporosis (20 sources) Osteoporosis; Translations: [Age-related osteoporosis without current pathological fracture] Chronic Other aftercare (20 sources) Drug therapy 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 Gave her a 1 month supply as we try to arrange for financial assistance. Other and unspecified benign neoplasm (13 sources) Polyp ; Translations: [Benign neoplasm, unspecified site] 11-13-2022 Episodic Other and unspecified benign neoplasm (6 sources) Benign neoplasm, unspecified site; Translations: [Benign neoplasm of unspecified site] 11-13-2022 Episodic Other circulatory disease (20 sources) Low blood pressure; Translations: [Hypotension, unspecified] 06-06-2022 Episodic Other circulatory disease (12 sources) Hypotension, unspecified; Translations: [Hypotension, unspecified] Episodic Other gastrointestinal disorders (4 sources) Irritable bowel syndrome with diarrhea; Translations: [Irritable bowel syndrome with diarrhea] 12-10-2023 Chronic Other gastrointestinal disorders (1 source) Irritable bowel syndrome with diarrhea; Translations: [Irritable bowel syndrome] 12-10-2023 Chronic Other nervous system disorders (18 sources) Disorder of brain; Translations: [Encephalopathy, unspecified] 06-18-2022 Chronic Other nervous system disorders (7 sources) Encephalopathy, unspecified; Translations: [Encephalopathy, unspecified] Chronic Other nutritional; endocrine; and metabolic disorders (19 sources) Hypophosphatemia; Translations: [Other disorders of phosphorus metabolism] 06-26-2022 Chronic Other nutritional; endocrine; and metabolic disorders (19 sources) Hypomagnesemia; Translations: [Hypomagnesemia] 06-26-2022 Chronic Other nutritional; endocrine; and metabolic disorders (4 sources) Hypomagnesemia; Translations: [Disorders of magnesium metabolism] Chronic Other nutritional; endocrine; and metabolic disorders (4 sources) Other disorders of phosphorus metabolism; 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] Chronic Other nutritional; endocrine; and metabolic disorders (20 sources) H/O: diabetes mellitus; Translations: [Personal history of other endocrine, nutritional and metabolic disease] 09-23-2022 Episodic Other nutritional; endocrine; and metabolic disorders (6 sources) Personal history of other endocrine, nutritional and metabolic disease; Translations: [Personal history of other endocrine, metabolic, and immunity disorders] Episodic Other screening for suspected conditions (not mental disorders or infectious disease) (15 sources) Cardiovascular stress test abnormal; Translations: [Abnormal result of other cardiovascular function study] 10-16-2022 Episodic Pneumonia (except that caused by tuberculosis or sexually transmitted disease) (20 sources) Lobar pneumonia; Translations: [Lobar pneumonia, unspecified organism] Episodic Comment on above: Completed treatment Residual codes; unclassified (15 sources) Tobacco user; Translations: [Tobacco use] 09-23-2022 Episodic Residual codes; unclassified (10 sources) Tobacco use; Translations: [Tobacco use disorder] Episodic Residual codes; unclassified (5 sources) History of thoracic surgery; Translations: [Other artificial opening status] 07-30-2023 Episodic Respiratory failure; insufficiency; arrest (adult) (20 sources) Hypoxemic respiratory failure; Translations: [Respiratory failure, unspecified with hypoxia] Episodic Screening and history of mental health and substance abuse codes (1 source) Personal history of nicotine dependence; Translations: [Personal history of nicotine dependence] Onset: 06-16-2025 Episodic Septicemia (except in labor) (20 sources) Sepsis; Translations: [Sepsis, unspecified organism] Episodic Shock (20 sources) Hemorrhagic shock; Translations: [Other shock] Episodic Urinary tract infections (20 sources) Recurrent urinary tract infection; Translations: [Urinary tract infection, site not specified] Episodic Viral infection (20 sources) Disease caused by 2019-nCoV; Translations: [COVID-19] Episodic Comment on above: Completed treatment Past or Other Problems Problem Classification Problem Date Documented Da te Episodic/Chronic Gastrointestinal hemorrhage (20 sources) Acute upper gastrointestinal hemorrhage; Translations: [Gastrointestinal hemorrhage, unspecified] Onset: 5 Episodic Other lower respiratory disease (1 source) Solitary pulmonary nodule; Translations: [Solitary pulmonary nodule] Onset: 4 Episodic Residual codes; unclassified (14 sources) History of cardiac catheterization; Translations: [Other specified postprocedural states] Onset: 3 11-11-2022 Episodic Comment on above: CORONARY ANGIOGRAPHY :DOMINANCE: Right DominantLEFT MAIN: Angiographically normal; LEFT ANTERIOR DESCENDING ARTERY: PROX LAD: Mild luminal irregularities, 25 - 50 % StenosisDIAGONAL 1: Proximal - Mild luminal irregularities; CIRCUMFLEX ARTERY: MID CIRC: 25 - 50 % Stenosis; RIGHT CORONARY ARTERY: Mild luminal irregularities; AORTIC ROOT: Calcified per cardiac cath Dr. Daniels 11/11/22 Results Test Name Value Interpretation Reference Range Facility CBC-Complete Blood Cnt No Di ffon 06-16-2025 Erythrocyte distribution width (RBC) [Ratio] 14.5 % Normal 11.6-14.6 [facility] Comment on above: Performed By: #### L 500.4100, L500.4050, L502.0250 #### [facility] [address] [place], [address] Hematocrit (Bld) [Volume fraction] 40.2 % Normal 37-47 [facility] Comment on above: Performed By: #### L 500.4100, L500.4050, L502.0250 #### [facility] [address] [place], [address] Hemoglobin (Bld) [Mass/Vol] 12.7 g/dL Normal 12.0-15.0 [facility] Comment on above: Performed By: #### L 500.4100, L500.4050, L502.0250 #### [facility] [address] [place], [address] MCH (RBC) [Entitic mass] 29.7 pg Normal 27.0-32.0 [facility] Comment on above: Performed By: #### L 500.4100, L500.4050, L502.0250 #### [facility] [address] [place], [address] MCHC (RBC) [Mass/Vol] 31.6 g/dL Low 32-36 [facility] Comment on above: Performed By: #### L 500.4100, L500.4050, L502.0250 #### [facility] [address] [place], [address] MCV (RBC) [Entitic vol] 93.9 fL Normal 81-99 [facility] Comment on above: Performed By: #### L 500.4100, L500.4050, L502.0250 #### [facility] [address] [place], [address] Platelet mean volume (Bld) [Entitic vol] 10.2 fL Normal 6.2-12.0 [facility] Comment on above: Performed By: #### L 500.4100, L500.4050, L502.0250 #### [facility] [address] [place], [address] Platelets (Bld) [#/Vol] 445 10*3/uL Normal 150-450 [facility] Comment on above: Performed By: #### L 500.4100, L500.4050, L502.0250 #### [facility] [address] [place], [address] RBC (Bld) [#/Vol] 4.28 10*6/uL Normal 4.2-5.4 [facility] Comment on above: Performed By: #### L 500.4100, L500.4050, L502.0250 #### [facility] [address] [place], [address] RDW SD 50.3 fl High 35.1-43.9 [facility] Comment on above: Performed By: #### L 500.4100, L500.4050, L502.0250 #### [facility] [address] [place], [address] WBC (Bld) [#/Vol] 10.5 10*3/uL Normal 4.4-11.0 [facility] Comment on above: Performed By: #### L 500.4100, L500.4050, L502.0250 #### [facility] [address] [place], [address] Cardiology Visit Reporton Cardiology Visit Report [facility] [address] [place], [place] [address] OFFICE VISIT Date of Service: 06/16/25 MR#: [id number] Acct: [id number] Name: RAVI BECKHAM Rep #: [id number] : 1950 Provider: Dr. Aniket ornelas MD Age/Sex: 75/F Location: [facility] Status: Signed HPI HPI History of Present Illness Details: Patient is a pleasant 75-year-old white female who comes today for monitor of her cardiovascular status. Patient has a history of mild coronary disease on catheterization in 2022. She has a history of paroxysmal atrial fibrillation that started in 2021 was initially diagnosed. She has a [id number] score of 4 she has been maintained on Eliquis and metoprolol. ECG in the office today shows normal sinus rhythm at 84 bpm with occasional PVC and fusion complexes otherwise is normal. The patient reports that she has had a few episodes that last 1 to 2 minutes that feel like the fluttering's in her chest she sits down and rest and it goes away. These last less than a few minutes at a time. The patient denies any syncope or near syncope denies any lower extremity edema PND or orthopnea. She does walk with a cane. The patient had a remote history of a GI bleed back in 2021 on Eliquis. Her last CBC was a year ago in January 2024 that I can find reported. Hemoglobin was 11.9 at that point in time. The patient denies any nuisance bleeding. Intake Vital Signs 11/24/24 06:02 06/16/25 11:23 Height 5 ft 8 in 5 ft 8 in Weight: 149 lb BMI 22.6 BP 108/71 Blood Pressure Location Lt brachial Position Sitting Respiration 18 Pulse 84 Pulse Source Monitor Pulse Oximetry (%) 92 Oxygen Delivery Method room air Intake Visit Reasons: 9 M FU Ropeman Required: No Accompanied by: Self Is patient in pain?: No Allergies Sulfa (Sulfonamide Antibiotics) Allergy (Unknown, Verified 06/16/25 11:23) GI issues Medications ???Medication ???Instructions ???Recorded ???Confirmed ???Type alendronate 70 mg tablet 70 mg PO MO Osteoporosis 05/18/22 06/16/25 History polysaccharide iron complex 150 mg 150 mg PO DAILY anemia 30 days # 30 07/30/22 06/16/25 Rx iron capsule (Ferrex) caps cholecalciferol (vitamin D3) 50 50 mcg PO DAILY supplement 2 06/16/25 History mcg (2,000 unit) tablet metoprolol tartrate 25 mg tablet 6.25 mg PO BIDCM afib 09/23/22 History metformin 1,000 mg tablet 1,000 mg PO BID 07/06/24 06/16/25 History midodrine 5 mg tablet 10 mg PO BID blood pressure 06/16/25 History empagliflozin 10 mg tablet 10 mg PO DAILY 11/22/24 06/16/25 H istory (Jardiance) potassium chloride 20 mEq 20 meq PO DAILY supplement 5 06/16/25 History tablet,extended release(part/cryst) (Klor-Con M) sertraline 25 mg tablet 25 mg PO DAILY 11/22/24 06/16/25 H istory cholestyramine (with sugar) 4 gram 4 g PO BID #378 grams 11/24/24 0 06/16/25 Rx oral powder apixaban 5 mg tablet (Eliquis) 5 mg PO BID [facility] 05/[facility]06/16/25 Rx Napoleon Dugs #180 tabs atorvastatin 40 mg tablet 20 mg (1/2 x 40 mg) PO QHS 5 06/16/25 Rx Cholestrol #30 tabs Ejection fraction %: 60 Have you fallen in the past year?: Yes PFSH Medical History Anxiety Bladder disease Back pain On home oxygen therapy Iatrogenic pneumothorax Legionnaires' disease Wears glasses Wears partial dentures Ambulates with cane Arthritis Anemia Low iron Dietary restriction History of diverticulitis History of ulceration History of GI bleed Gastric reflux Former smoker Emphysema, unspecified Shortness of breath on exertion History of echocardiogram History of stress test Cardiology follow-up encounter Hypertension History of atrial fibrillation History of left heart catheterization (LHC) ( 11/11/22) Atherosclerotic heart disease of [place] coronary artery without angina pectoris Abnormal stress test Type 1 diabetes Tobacco abuse Hematuria Diabetes mellitus Paroxysmal A-fib History of diabetes mellitus COVID-19 High cholesterol Diabetes Surgical History History of cardiac catheterization Hx of esophagogastroduodenoscop y Family History Uncle Heart disease Uncle Heart disease Social History household members: spouse Smoking Status: Former smoker alcohol intake: never substance use type: does not use caffeine: Yes Type: coffee Number of servings: 2 ROS Const Const: Negative for fatigue or weakness ENT ENT: Negative for dizziness or balance problems Cardio Chest Pain: No (more content not included)... Normal [facility] Erythrocyte distribution wid th ratioOrdered By: Aniket Cheema on 06-16-2025 Erythrocyte distribution width (RBC) [Ratio] 14.5 % 11.6-14.6 [facility] Erythrocyte distribution wid th standard deviationOrdered By: Aniket Cheema on 06-16-2025 Erythrocyte distribution width (RBC) [Ratio] 50.3 fl High 35.1-43.9 [facility] Hematocrit Auto (Bld) [Volum e fraction]Ordered By: Aniket Cheema on 06-16-2025 Hematocrit (Bld) [Volume fraction] 40.2 % 37-47 [facility] Hemoglobin measurementOrdere d By: Aniket Cheema on 06-16-2025 Hemoglobin (Bld) [Mass/Vol] 12.7 g/dL 12.0-15.0 [facility] MCV (mean corpuscular volume ) determinationOrdered By: Aniket Cheema on 06-16-2025 MCV (RBC) [Entitic vol] 93.9 fL 81-99 [facility] Mean corpuscular hemoglobin (MCH) determinationOrdered By: Aniket Cheema on 06-16-2025 MCH (RBC) [Entitic mass] 29.7 pg 27.0-32.0 [facility] Mean corpuscular hemoglobin concentration (MCHC) determinationOrdered By: Aniket Cheema on 06-16-2025 MCHC (RBC) [Mass/Vol] 31.6 g/dL Low 32-36 [facility] Mean platelet volume determi nationOrdered By: Aniket Cheema on 06-16-2025 Platelet mean volume (Bld) [Entitic vol] 10.2 fL 6.2-12.0 [facility] Platelet countOrdered By: Susi Cheema on 06-16-2025 Platelets (Bld) [#/Vol] 445 10*3/uL 150-450 [facility] RBC Auto (Bld) [#/Vol]Ordere d By: Aniket Cheema on 06-16-2025 RBC (Bld) [#/Vol] 4.28 10*6/uL 4.2-5.4 [facility] White blood cell (WBC) count Ordered By: Aniket Cheema on 06-16-2025 WBC (Bld) [#/Vol] 10.5 10*3/uL 4.4-11.0 [facility] Microalb:Creat Ratio,Random URon 04-06-2025 MALB:CREAT 10.6 mg/g CRE Normal [facility] Comment on above: Result Comment: AMENDED REPORT 04/06/25 1209 MALB:CREAT previously reported as: 105.7 mg/g CRE Performed By: #### L 502.0250, L500.4100, L500.2500 #### [facility] [address] [place], [place] [address]. [place], [address] Albumin DL <= 20 mg/L (U) [M ass/Vol]Ordered By: Misale Molina on 01-26-2025 Urine Random Microalbumin 18.5 mg/L NO RANGE EST. [facility] Anion gap in Serum or Plasma Ordered By: Misael Molina on 01-26-2025 Anion gap [Moles/Vol] 14 mmol/L 03-02 [facility] BUN/creatinine ratioOrdered By: Misael Molina on 01-26-2025 Urea nitrogen/Creatinine [Mass ratio] 16.4 mg/mg - [facility] Basic Metabolic Profile (BMP )on 01-26-2025 BUN/CRE 16.4 RATIO Normal 08-07 [facility] Comment on above: Performed By: #### L 502.0250, L500.4100, L500.2500 #### [facility] [address] [place], [address] Calcium [Mass/Vol] 9.7 mg/dL Normal 7.6-11.0 [facility] Comment on above: Performed By: #### L 502.0250, L500.4100, L500.2500 #### [facility] [address] [place], [address] Chloride [Moles/Vol] 102 mmol/L Normal 98-108 [facility] Comment on above: Performed By: #### L 502.0250, L500.4100, L500.2500 #### [facility] [address] [place], [address] CO2 [Moles/Vol] 23.6 mmol/L Normal 21.0-32.0 [facility] Comment on above: Performed By: #### L 502.0250, L500.4100, L500.2500 #### [facility] [address] [place], [address] Creatinine [Mass/Vol] 0.95 mg/dL Normal 0.70-1.20 [facility] Comment on above: Performed By: #### L 502.0250, L500.4100, L500.2500 #### [facility] [address] [place], [address] GAP 14 Normal 5-15 [facility] Comment on above: Performed By: #### L 502.0250, L500.4100, L500.2500 #### [facility] [address] [place], [address] GFR/1.73 sq M.predicted among non-blacks MDRD (S/P/Bld) [Vol rate/Area] 64 mL/min/{1.73_m2} Normal >60 [facility] Comment on above: Result Comment: mL/m in/1.73m2 CKD-EPI Creatinine Equation (2020) Performed By: #### L 502.0250, L500.4100, L500.2500 #### [facility] [address] [place], [address] Glucose [Mass/Vol] 116 mg/dL High 70-99 [facility] Comment on above: Performed By: #### L 502.0250, L500.4100, L500.2500 #### [facility] [address] [place], [address] Potassium [Moles/Vol] 4.3 mmol/L Normal 3.3-5.1 [facility] Comment on above: Performed By: #### L 502.0250, L500.4100, L500.2500 #### [facility] [address] [place], [address] Sodium [Moles/Vol] 140 mmol/L Normal 133-145 [facility] Comment on above: Performed By: #### L 502.0250, L500.4100, L500.2500 #### [facility] [address] [place], [address] Urea nitrogen [Mass/Vol] 16 mg/dL Normal 4-19 [facility] Comment on above: Performed By: #### L 502.0250, L500.4100, L500.2500 #### [facility] [address] [place], [address] Calculated very low density lipoprotein (VLDL) cholesterol measurementOrdered By: Misael Molina on 01-26-2025 VLDL Cholesterol 38 mg/dL 5-40 [facility] Carbon dioxide, total [Moles /volume] in Central venous bloodOrdered By: Misael Molina on 01-26-2025 CO2 [Moles/Vol] 23.6 mmol/L 21.0-32.0 [facility] Chloride assayOrdered By: Branden Molina on 01-26-2025 Chloride [Moles/Vol] 102 mmol/L 98-108 [facility] Creatinine Unsp time (U) [Ma ss/Vol]Ordered By: Misael Molina on 01-26-2025 Creatinine (U) [Mass/Vol] 175.00 mg/dL 28 .00-217. 00 [facility] GFR/1.73 sq M.predicted demetra g non-blacks MDRD (S/P/Bld) [Vol rate/Area]Ordered By: Misael Molina on 01-26-2025 Estimated GFR (MDRD) Non-Af Amer 64 >60 [facility] Comment on above: mL/min/1.73m2 CKD-EP I Creatinine Equation (2020) LDL calc ser/plasOrdered By: Misael Molina on 01-26-2025 LDL Cholesterol, Calculated 58 mg/dL [facility] Comment on above: Pkvafwdhux=402-336 m g/dL & Higher Hvqf=294 mg/dL or greater Lipid Profileon 01-26-2025 CHOL:HDL 3.09 Normal [facility] Comment on above: Performed By: #### L 502.0250, L500.4100, L500.2500 #### [facility] [address] [place], [place], [id number] Cholesterol [Mass/Vol] 142 mg/dL Normal <=200 [facility] Comment on above: Result Comment: Chol esterol level, Desirable <200 mg/dL Borderline high cholesterol 200-239 mg/dL High cholesterol >=240 mg/dL Recommendations of the NCEP Adult Treatment Panel for the following risk-cutoff thresholds for the [place] population. Performed By: #### L 502.0250, L500.4100, L500.2500 #### [facility] [address] [place], [address] Cholesterol in HDL [Mass/Vol] 46 mg/dL Normal [facility] Comment on above: Result Comment: Selena onal Cholesterol Education Program (NCEP) guidelines: <40 mg/dL: Low HDL-cholesterol (major risk factor for CHD) >= 60 mg/dL: High HDL-cholesterol (negative risk factor for CHD) HDL-cholesterol is affected by a number of factors, e.g. smoking, exercise, hormones, sex and age. Performed By: #### L 502.0250, L500.4100, L500.2500 #### [facility] [address] [place], [address] Cholesterol in LDL [Mass/Vol] 58 mg/dL Normal [facility] Comment on above: Result Comment: Bord xxlppx=075-586 mg/dL Higher Cfqh=708 mg/dL or greater Performed By: #### L 502.0250, L500.4100, L500.2500 #### [facility] [address] [place], [address] Cholesterol in VLDL [Mass/Vol] 38 mg/dL Normal 5-40 [facility] Comment on above: Performed By: #### L 502.0250, L500.4100, L500.2500 #### [facility] [address] [place], [address] Triglyceride [Mass/Vol] 191 mg/dL Normal [facility] Comment on above: Result Comment: The drugs N-Acetylcysteine and Metamizole may falsely depress this assay. Normal range: <150 mg/dL Borderline High: 150-199 mg/dL High: 200-499 mg/dL Very High: >500 mg/dL Performed By: #### L 502.0250, L500.4100, L500.2500 #### [facility] [place], [address] Microalbumin/creat ratio urO rdered By: Misael Molina on 01-26-2025 Urine Microalbumin/Creatinine Ratio 105.7 mg/g CRE [facility] Potassium (Unsp spec) [Mass/ Vol]Ordered By: Misael Molina on 01-26-2025 Potassium [Moles/Vol] 4.3 mmol/L 3.3-5.1 [facility] Screening total cholesterol/ high density lipoprotein (HDL) cholesterol ratioOrdered By: Misael Molina on 01-26-2025 Cholesterol.total/Cholest cat in HDL [Mass ratio] 3.09 {ratio} [facility] Serum creatinine measurement (mass/volume)Ordered By: Misael Molina on 01-26-2025 Creatinine [Mass/Vol] 0.95 mg/dL 0.70-1.20 [facility] Serum glucose measurement (m ass/volume)Ordered By: Misael Molina on 01-26-2025 Glucose [Mass/Vol] 116 mg/dL High 70-99 [facility] Serum or plasma calcium ana urement (mass/volume)Ordered By: Misael Molina on 01-26-2025 Calcium [Mass/Vol] 9.7 mg/dL 7.6-11.0 [facility] Serum or plasma cholesterol in HDL measurement (mass/volume)Ordered By: Misael Molina on 01-26-2025 Cholesterol in HDL [Mass/Vol] 46 mg/dL >40 [facility] Comment on above: National Cholesterol Education Program (NCEP) guidelines:<40 mg/dL: Low HDL-cholesterol (major risk factor for CHD)>= 60 mg/dL: High HDL-cholesterol (negative risk factor for CHD)HDL-cholesterol is affected by a number of factors, e.g. smoking, exercise, hormones, sex and age. Serum or plasma cholesterol measurement (mass/volume)Ordered By: Misael Molina on 01-26-2025 Cholesterol [Mass/Vol] 142 mg/dL <201 [facility] Comment on above: Cholesterol level, D esirable <200 mg/dLBorderline high cholesterol 200-239 mg/dLHigh cholesterol >=240 mg/dLRecommendations of the NCEP Adult Treatment Panel for the following risk-cutoff thresholds for the [place] population. Serum or plasma urea nitroge n measurement (mass/volume)Ordered By: Misael Molina on 01-26-2025 Urea nitrogen [Mass/Vol] 16 mg/dL 4-19 [facility] Sodium levelOrdered By: Misael Molina on 01-26-2025 Sodium [Moles/Vol] 140 mmol/L 133-145 [facility] Triglycerides measurementOrd ered By: Misael Molina on 01-26-2025 Triglyceride [Mass/Vol] 191 mg/dL <199 [facility] Comment on above: The drugs N-Acetylcy steine and Metamizole may falsely depress this assay. Normal range: <150 mg/dLBorderline High: 150-199 mg/dLHigh: 200-499 mg/dLVery High: >500 mg/dL Bedside Glucoseon 11-24-2024 FINGERSTICK GLU 206 mg/dL High 74-106 [facility] Comment on above: Result Comment: MIHIR LINCOLN OF PATIENT CARE PER NURSING PROTOCOL Performed By: #### L 501.080 #### [facility] [address] [place], [address] Colonoscopy Reporton 025 Colonoscopy Report [facility] Medical Records Department [address] [place] [address] Colonoscopy Report MR#: [id number] Acct: [id number] Name: RAVI BECKHAM Rep #: [id number] : 1950 74 From: Maurilio Mcmanus DO PCP: Dr. Misael Molina MD Status:[facility] Patient Name: Ravi Beckham Procedure Date: 11/24/2024 7:30 AM Date of : 1950 Age: 74 Procedure: Colonoscopy Indications: Chronic diarrhea Providers: Maurilio Mcmanus DO Referring MD: Misael Molina MD Medicines: Monitored Anesthesia Care Patient Profile: This is a 74 year old female. Refer to note in patient chart for documentation of history and physical. Patient has symptoms of chronic epigastric abdominal pain and chronic dysphagia. Last Colonoscopy: 3 years ago. Complications: No immediate complications. Procedure: Pre-Anesthesia Assessment: - Prior to the procedure, a History and Physical was performed, and patient medications and allergies were reviewed. The patient is competent. The risks and benefits of the procedure and the sedation options and risks were discussed with the patient. All questions were answered and informed consent was obtained. Patient identification and proposed procedure were verified by the physician in the pre-procedure area. Mental Status Examination: alert and oriented. Airway Examination: normal oropharyngeal airway and neck mobility. Respiratory Examination: clear to auscultation. CV Examination: normal. Prophylactic Antibiotics: The patient does not require prophylactic antibiotics. Prior Anticoagulants: The patient has taken no anticoagulant or antiplatelet agents except for NSAID medication. ASA Grade Assessment: II - A patient with mild systemic disease. After reviewing the risks and benefits, the patient was deemed in satisfactory condition to undergo the procedure. The anesthesia plan was to use monitored anesthesia care (MAC). Immediately prior to administration of medications, the patient was re-assessed for adequacy to receive sedatives. The heart rate, respiratory rate, oxygen saturations, blood pressure, adequacy of pulmonary ventilation, and response to care were monitored throughout the procedure. The physical status of the patient was re-assessed after the procedure. After I obtained informed consent, the scope was passed under direct vision. Throughout the procedure, the patient's blood pressure, pulse, and oxygen saturations were monitored continuously. The Colonoscope was introduced through the anus and advanced to the cecum, identified by appendiceal orifice and ileocecal valve. The colonoscopy was performed without difficulty. The patient tolerated the procedure well. The quality of the bowel preparation was adequate. The ileocecal valve, appendiceal orifice, and rectum were photographed. Scope In: 7:10:12 AM Scope Withdrawal Time 0 hours 7 minutes 5 seconds Scope Out: 7:22:30 AM Total Procedure Duration Time 0 hours 12 minutes 18 seconds Findings: The perianal and digital rectal examinations were normal. Moderate rectal prolapse was present. Multiple large-mouthed diverticula were found in the recto-sigmoid colon, sigmoid colon and descending colon. An area of mildly congested mucosa was found in the rectum, in the sigmoid colon, in the transverse colon and in the cecum. Biopsies were taken with a cold forceps for histology. Verification of patient identification for the specimen was done. Estimated blood loss was minimal. Impression: - Rectal prolapse. - Diverticulosis in the recto-sigmoid colon, in the sigmoid colon and in the descending colon. - Congested mucosa in the rectum, in the sigmoid colon, in the transverse colon and in the cecum. Biopsied. Recommendation: - Discharge patient to home. - Resume previous diet. - Continue present medications. - Await pathology results. - Repeat colonoscopy in 5 years for surveillance. Procedure Code(s): --- Professional --- 56592, Colonoscopy, flexible; with biopsy, single or multiple CPT copyright 2021 [employer]. All rights reserved. The codes documented in this report are preliminary and upon electrician helper review may be revised to meet current compliance requirements. Maurilio Mcmanus DO 11/24/2024 7:58:28 AM This report has been signed electronically. Number of Addenda: 0 Note Initiated On: 11/24/2024 7:30 AM 11/24/24 0758 Date Maurilio Mcmanus DO Cosigner Signature: Date (if indicated) CC: Dr. Misael Molina MD; Maurilio Mcmanus DO Date Dictated: 11/24/24729 Date Transcribed: Solar Sales Specialist: VENKAT Signed Normal [facility] EGD Reporton 11-24-2024 EGD Report [facility] Medical Records Department [address] [place] [id number] EGD Report MR#: [id number] Acct: [id number] Name: RAVI BECKHAM Rep #: [id number] : 1950 74 From: Maurilio Mcmanus DO PCP: Dr. Misael Molina MD Status:[facility] Patient Name: Ravi Beckham Procedure Date: 11/24/2024 6:17 AM Date of : 1950 Age: 74 Procedure: Upper GI endoscopy Indications: Dysphagia, Heartburn, Peptic ulcer Providers: Maurilio Mcmanus DO Referring MD: Misael Molina MD Medicines: Monitored Anesthesia Care Patient Profile: This is a 74 year old female. Refer to note in patient chart for documentation of history and physical. Patient has symptoms of chronic epigastric abdominal pain and chronic dysphagia. Complications: No immediate complications. Procedure: Pre-Anesthesia Assessment: - Prior to the procedure, a History and Physical was performed, and patient medications and allergies were reviewed. The patient is competent. The risks and benefits of the procedure and the sedation options and risks were discussed with the patient. All questions were answered and informed consent was obtained. Patient identification and proposed procedure were verified by the physician in the pre-procedure area. Mental Status Examination: alert and oriented. Airway Examination: normal oropharyngeal airway and neck mobility. Respiratory Examination: clear to auscultation. CV Examination: normal. Prophylactic Antibiotics: The patient does not require prophylactic antibiotics. Prior Anticoagulants: The patient has taken no anticoagulant or antiplatelet agents except for NSAID medication. ASA Grade Assessment: II - A patient with mild systemic disease. After reviewing the risks and benefits, the patient was deemed in satisfactory condition to undergo the procedure. The anesthesia plan was to use monitored anesthesia care (MAC). Immediately prior to administration of medications, the patient was re-assessed for adequacy to receive sedatives. The heart rate, respiratory rate, oxygen saturations, blood pressure, adequacy of pulmonary ventilation, and response to care were monitored throughout the procedure. The physical status of the patient was re-assessed after the procedure. After obtaining informed consent, the endoscope was passed under direct vision. Throughout the procedure, the patient's blood pressure, pulse, and oxygen saturations were monitored continuously. The Colonoscope was introduced through the mouth, and advanced to the second part of duodenum. The upper GI endoscopy was accomplished without difficulty. The patient tolerated the procedure well. Scope In: 7:05:20 AM Scope Out: 7:10:49 AM Total Procedure Duration Time 0 hours 5 minutes 29 seconds Findings: A mild Schatzki ring was found at the gastroesophageal junction. A medium-sized hiatal hernia was present. Diffuse severe inflammation characterized by erythema, friability and granularity was found in the entire examined stomach. Biopsies were taken with a cold forceps for histology. Verification of patient identification for the specimen was done. Estimated blood loss was minimal. Biopsies were taken with a cold forceps for Helicobacter pylori testing. Verification of patient identification for the specimen was done. Estimated blood loss was minimal. Mildly erythematous mucosa without active bleeding and with no stigmata of bleeding was found in the first portion of the duodenum. Biopsies were taken with a cold forceps for histology. Verification of patient identification for the specimen was done. Estimated blood loss was minimal. Impression: - Mild Schatzki ring. - Medium-sized hiatal hernia. - Bile gastritis. Biopsied. - Erythematous duodenopathy. Biopsied. Recommendation: - Discharge patient to home. - Resume previous diet. - Continue present medications. - Await pathology results. Procedure Code(s): --- Professional --- 00057, Esophagogastroduodenoscop y, flexible, transoral; with biopsy, single or multiple CPT copyright 2021 [employer]. All rights reserved. The codes documented in this report are preliminary and upon electrician helper review may be revised to meet current compliance requirements. Maurilio Mcmanus DO 11/24/2024 7:29:56 AM This report has been signed electronically. Number of Addenda: 0 Note Initiated On: 11/24/2024 6:17 AM 11/24/24 0754 Date Maurilio Mcmanus DO Cosigner Signature: Date (if indicated) CC: Dr. Misael Molina MD; Maurilio Mcmanus DO Date Dictated: 11/24/24616 Date Transcribed: Solar Sales Specialist: VENKAT Signed Normal [facility] deOrdered By: Maurilio Mcmanus on 11-24-2024 Bedside Glucose (Misc Panel) 206 mg/dL High 74-106 [facility] Comment on above: MANAGEMENT OF PATIEN T CARE PER NURSING PROTOCOL H Pylori (initial)on 025 H Pylori (initial) ----- Patient Age/Sex Location Account Attending Physician RAVI BECKHAM 74/F EN [id number] Maurilio Mcmanus DO Specimen: [id number] Received: 11/24/24 Status: LAURA Tidwell Num: [id number] Spec Type: IMMUNO Subm Dr: Maurilio Mcmanus DO PHYSICIAN INSTITUTION [place] [address] SPECIMEN INFORMATION: Tissue Source: A- Antrum biopsy Clinical Info: Eosinophilic esophagitis, GI bleed, irritable bowel syndrome with diarrhea Specimen Number: [id number] CPT code: 05662 METHODOLOGY: Deparaffinized sections of prefer/formalin-fixed tissue or PAP/DQ stained slides are incubated with monoclonal/polyclonal antibodies/oligonucleotid e probes. Localization is made via biotin free immunoperoxidase method. Appropriate controls are performed and reacted as expected. Results on target cell population are indicated in the following table: RESULTS: ANTIBODY / CLONE RESULT Block A H Pylori (polyclonal) negative These tests were developed and their performance characteristics determined by [facility]. They may not have been cleared or approved by the U.S. Food and Drug Administration. The FDA has determined that such clearance or approval is not necessary. The above immunohistochemical/dualI SH markers are ordered and reviewed by the Pathologist. INTERPRETATION: A. Antrum, biopsy: Negative for Helicobacter pylori organisms. SJ.mr 11/25/2024 Signed (signature on file) Dr. Basim Jay MD 11/25/24 1203 Normal [facility] Comment on above: Performed By: #### P H.PYLORI #### [facility] [address] [place], [place], [address] MR/POSTOP.[facility] 11-24-2024 MR/POSTOP.[facility] Medical Records Department [address] [place] [address] Anesthesia Postop Eval I 11/24/24728 MR#: [id number] Acct: [id number] Name: RAVI BECKHAM Rep #: [id number] : 1950 74 From: Osiris Schaefer CRNA PCP: Dr. Misael Molina MD Status:REG [facility] Y Race: C Location: [place] [address] Anesthesia: Postop Eval I Current Vital Signs Temperature: 97 F Pulse Rate: 70 Blood Pressure: 117/77 Respiratory Rate: 20 Pulse Ox: 98 Oxygen Delivery Method: Room Air Assessment Airway patent: Yes Spontaneous unlabored respirations: Yes Mental status: Awake nausea: No Vomiting: No Anesthesia Complication: No Fluid Hydration Crystalloid volume administer (ml): 20 Total IV fluid infused: 20 Progress Note Anesthesia document: Postop Eval 1 completed: Yes 11/24/24729 Date Osiris Schaefer CRNA Cosigner Signature: Date CC: Signed Normal [facility] MR/[id number] 11-24-2024 MR/POSTOPAN2 [facility] Medical Records Department [address] [place] [address] Anesthesia Postop Eval II 11/24/24 104 MR#: [id number] Acct: [id number] Name: RAVI BECKHAM Rep #: [id number] : 1950 74 From: Lupe Murphy PCP: Dr. Misael Molina MD Status:DEP [facility] Y Race: C Location: [place] Anesthesia Postop Eval I Sum Postop Eval Completion status Anesthesia document: Postop Eval 1 completed: Yes Anesthesia Postop Eval I Summary Anesthesia Postop Eval I Summary: Anesthesia Postop Eval I: Assessment Summary Airway patent Yes 11/24/24 07:30 ASSEMBLER FLEXIBLE LEADS.JSWI Spontaneous unlabored Yes 11/24/24 07:30 ASSEMBLER [employer].JSWI respirations Mental status Awake 11/24/24 07:30 [employer]SEM[employer].JSWI nausea No 11/24/24 07:30 [employer]SEM[employer].JSWI Vomiting No 11/24/24 07:30 [employer]SEMBL[employer].JSWI Anesthesia Postop Eval I: Fluid Summary Crystalloid volume administer 20 11/24/24 07:30 ASSEMBLER [employer] LE[employer].JSWI (ml) Colloids volume administered ( ml) Blood Product volume administered (ml) Total IV fluid infused 20 11/24/24 07:30 ASSEMBLER [employer].JSWI Anesthesia Postop Eval I: Summary Notes Anesthesia Complication No 11/24/24 07:30 ASSEMBLER [employer].JSWI Anesthesia Complication Comment: Post-operative progress note Anesthesia: Postop Eval II Evaluation Mental status: Awake and Calm Pain Level: 0 nausea: No Vomiting: No 11/24/241041 Date Lupe Palacios Signature: CC: Signed Normal [facility] Surgery Specimen Level [place] 11-24-2024 Surgery Specimen Level IV Patient Age/Sex Location Account Attending Physician RAVI BECKHAM 74/F EN [id number] Maurilio Mcmanus DO Specimen: [id number] Received: 11/24/24 Status: LAURA [facility] Num: [id number] Spec Type: COLON BX Subm Dr: Maurilio Friend, DO HEADER OPERATION: Colonoscopy, EGD biopsy PRE-OP DIAGNOSIS: Eosinophilic esophagitis, GI bleed, irritable bowel syndrome with diarrhea TISSUE SUBMITTED: A- Antrum biopsy, B- Duodenum biopsy, C- Cecum biopsy, D- Random colonic biopsy MICROSCOPIC DIAGNOSIS A. Antrum, biopsy: Mild gastritis. See microscopic description and comment. B. Duodenum, biopsy: Fragments of duodenal mucosa, no pathologic diagnosis. C. Cecum, biopsy: Fragments of colonic mucosa, no pathologic diagnosis. D. Colon, random biopsy: Fragments of colonic mucosa, no pathologic diagnosis. SJ. 11/25/2024 COMMENT A. The results of immunohistochemistry for Helicobacter pylori will be reported separately ([id number]). MICROSCOPIC DESCRIPTION Slides are reviewed. A. The specimen shows fragments of gastric mucosa with chronic inflammatory cell infiltrates in the lamina propria consisting of lymphocytes and plasma cells, consistent with mild chronic gastritis. GROSS DESCRIPTION A. Received in fixative is one container labeled with the patient's name and designated Antrum biopsy. The specimen consists of three irregular fragments of light mauro soft tissue that in aggregate measure 0.6 x 0.3 x 0.2 cm. The specimen is totally submitted in one cassette. B. Received in fixative is one container labeled with the patient's name and designated Duodenum biopsy. The specimen consists of two irregular fragments of light mauro soft tissue that in aggregate measure 0.5 x 0.3 x 0.2 cm. The specimen is totally submitted in one cassette. C. Received in fixative is one container labeled with the patient's name and designated Cecum biopsy. The specimen consists of two irregular fragments of light mauro soft tissue Patient Age/Sex Location Account Attending Physician RAVI BECKHAM 74/ EN [id number] Maurilio Mcmanus DO that in aggregate measure 0.6 x 0.3 x 0.2 cm. The specimen is totally submitted in one cassette. D. Received in fixative is one container labeled with the patient's name and designated Random colonic biopsy. The specimen consists of multiple irregular fragments of light mauro soft tissue that in aggregate measure 2 x 0.5 x 0.2 cm. The specimen is totally submitted in one cassette. 11/24/2024 TC:2 [facility]:[id number] Patient Age/Sex Location Account Attending Physician RAVI BECKHAM 74/ EN [id number] Maurilio Mcmanus DO Signed (signature on file) Dr. Basim Jay MD 11/25/24 1137 Normal [facility] Comment on above: Performed By: #### P SUIV #### [facility] [address] [place], [place], [address] /[facility] 11-22-2024 MR/PAT.[facility] Medical Records Department [address] [place] [address] PAT - Anesthesia 11/22/24 1612 MR#: [id number] Acct: [id number] Name: RAVI BECKHAM Rep #: [id number] : 1950 74 From: Wilson Torres MD PCP: Dr. 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 When Was Last Pacemaker Check QUESTION #4 FULL TEXT: You/Your Family Experience fever (hyperthermia) with Anesthesia Last Oral Intake Last Oral intake: Last Oral Intake NPO since Meds taken in AM with sips of water? Meds patient instructed to take am of surgery PONV PONV - sales agent food vending service: PONV - sales agent food vending service Female Yes 11/22/24 10:23 HX of Motion Sickness No 11/22/24 10:23 HX of N/V After Surgery No 11/22/24 10:23 Non-Smoker Yes 11/22/24 10:23 Duration of Surgery greater No 11/22/24 10:23 than 60 minutes Number of Risk Factors 2 11/22/24 10:23 PONV Score Moderate Risk 11/22/24 10:23 Height Weight Height Weight: Anesthesia: Height Weight Height 5 ft 8 in 07/06/24 13:28 Respiratory Assessment Respiratory Assessment - sales agent food vending service: Respiratory Tract Infection Hx - sales agent food vending service Hx Respiratory Tract Infection No 11/22/24 10:23 STOP Sleep Apnea STOP Sleep Apnea - sales agent food vending service: STOP Sleep Apnea - sales agent food vending service Hx Hypertension Yes: CONTROLLED WITH MED 11/22/24 10:23 Hx Sleep Apnea No 11/22/24 10:23 CPAP BIPAP Do you snore loudly (louder No 11/22/24 10:23 than talking or can be heard Do you often feel tired/ No 11/22/24 10:23 fatigued/ sleepy during daytime? Has anyone observed you stop No 11/22/24 10:23 breathing during sleep? STOP Results Negative 11/22/24 10:23 QUESTION #5 FULL TEXT : Do you snore loudly (louder than talking or can be heard through closed doors)? Tobacco Use History Tobacco Use History - sales agent food vending service: Tobacco Use History - sales agent food vending service Tobacco Use Smoking Status Former smoker 11/22/24 10:23 Hx Tobacco Use No 11/22/24 10:23 Years Smoking Packs Smoked per Day Smoking Cessation Date was Yes - quit smoking within 15 11/22/24 10:23 within the last 15 years years Hx Smoking Cessation Date 05/18/22 11/22/24 10:23 Hx Smoking Cessation No 11/22/24 10:23 Counseling Hematologic Medial History Hematologic Hx - sales agent food vending service: Hematologic Medical Hx - electric crane operator Hx of Blood Transfusion Yes 11/22/24 10:23 Hx of Transfusion in last 3 No 11/22/24 10:23 Months Date of Last Transfusion (if within last 3 months) Ever experience any problems No 11/22/24 10:23 with transfusion(s)? Specify any problems Hx of Preganancy in last 3 No 11/22/24 10:23 Months Nurse Filling Out Transfusion DSCHRIBER 11/22/24 10:23 Questions: Date: 11/22/24 11/22/24 10:23 Time: 10:25 11/22/24 10:23 Patient unable to answer at this time (ie. confused, unrespo /Reproduction History /Reproductive History - sales agent food vending service: /Reproductive Hx- sales agent food vending service Hx Now No 11/22/24 10:23 Gestational Age (in weeks): EDC: Hx Hx Para Hx Section SAB No 11/22/24 10:23 [facility] Medical History (Updated 11/22/24 @ 10:34 by Ekaterina Matthews) Anxiety Bladder disease Back pain On home oxygen therapy Iatrogenic pneumothorax Legionnaires' disease Wears glasses Wears partial dentures Ambulates with cane Arthritis Anemia Low iron Dietary restriction History of diverticulitis History of ulceration History of GI bleed Gastric reflux Former smoker Emphysema, unspecified Shortness of breath on exertion History of echocardiogram History of stress test Cardiology follow-up encounter Hypertension History of atrial fibrillation History of left heart catheterization (LHC) ( 11/11/22) Atherosclerotic heart disease of [place] coronary artery without angina pectoris Abnormal stress test Type 1 diabetes Tobacco abuse Hematuria Diabetes mellitus Paroxysmal A-fib History of diabetes mellitus COVID-19 High cholester (more content not included)... Normal [facility] Gastroenterology Visit Repor ton 09-13-2024 Gastroenterology Visit Report [facility] Gastroenterology [address] [place] [address] OFFICE VISIT Date of Service: 09/13/24 MR#: [id number] Acct: [id number] Name: RAVI BECKHAM Rep #: [id number] : 1950 Provider: BRANDEN Del Rosario Age/Sex: 74/F Location: [facility] Status: Signed Intake Vital Signs 01/07/24 13:01 07/06/24 13:28 Height 5 ft 8 in 5 ft 8 in Weight: 161 lb BMI 24.5 BP 121/76 H Blood Pressure Location Lt brachial Position Sitting Respiration 18 Pulse 58 L Pulse Source Monitor Pulse Oximetry (%) 93 Intake Visit Reasons: 3 M FU Chief Complaint: Month f/u Allergies Sulfa (Sulfonamide Antibiotics) Allergy (Unknown, Verified 07/06/24 13:30) GI issues Have you fallen in the past year?: No Nurse's Note: OV 09.13.24 Pt here for f/u. Pt reports nausea, gas, loose BM 3-4 daily. Denies abdominal pain, vomiting, denies bloody stools and continues pantoprazole daily. [facility] Medical History Iatrogenic pneumothorax Legionnaires' disease Wears glasses Wears partial dentures Ambulates with cane Arthritis Anemia Low iron Dietary restriction History of diverticulitis History of ulceration History of GI bleed Gastric reflux Former smoker Emphysema, unspecified Shortness of breath on exertion History of echocardiogram History of stress test Cardiology follow-up encounter Hypertension History of atrial fibrillation History of left heart catheterization (LHC) ( 11/11/22) Atherosclerotic heart disease of [place] coronary artery without angina pectoris Abnormal stress test Type 1 diabetes Tobacco abuse Hematuria Diabetes mellitus Paroxysmal A-fib History of diabetes mellitus Frequent urinary tract infections COVID-19 High cholesterol Diabetes Surgical History Status post chest tube placement History of cardiac catheterization Hx of esophagogastroduodenoscop y Family History Uncle Heart disease Uncle Heart disease Social History household members: spouse Smoking Status: Former smoker alcohol intake: never substance use type: does not use caffeine: Yes Type: coffee Number of servings: 2 HPI HPI Chief Complaint: Month f/u Details: RAVI BECKHAM, is a 74 F who presents to the office today for f/u. PMH DM 1; CAD; hyperlipidemia; encephalopathy; a.Fib [facility] Hospitalization 05.18.22-05.31.22 for COVID with legionella pne, respiratory failure. Discharged to SNF. [facility] ED 06.03.22 with SOB and hypoxia. *[facility] hospitalization 06.06.22-06.18.22 with transfer to TCU until 08.06.22. GI consulted 8.19.22 for suspected GIB with start of PPI and octreotide drip (stopped several days later). 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 EGD 06.11.22 irregular Zline 37cm; LA Grade B esophagitis; diffuse severe inflammation, erythema and friability of entire stomach, heater probed; 5mm non-bleeding diverticulum of second portion duodenum; 4mm nonbleeding diverticulum of jejunum; non bleeding crater ulcer in jejunum. OV 11.13.22 with recommendation to continue PPI. Repeat EGD and performed screening colonoscopy. ? EGD and colonoscopy 01.27.23 EGD mucosal changes suspicious of EOE; bile gastritis. No pathologic changes save inflammation. H.Pylori negative. ? Colonoscopy poor prep. Diverticulosis. No specimens collected. OV 02.11.23 No signs of GIB, anemia or dysphagia. Continues with PPI BID OV 06.10.24 Patient has been having daily diarrhea for awhile now. She will have a formed stool on occasion. She has tried cholestyramine in the past but did not work for her. She will have breakthrough heartburn on occasion but it is managed with tums. She has no signs of GI bleed. She denies abdominal pain, melena, n/v or constipation OV 09.13.24 Pt reports decreased episodes of diarrhea since starting fiber supplementation. She will have just one episode per day now. She does have formed stools as well. She has some nausea that she associates with her heartburn. SHe does not feel pantoprazole is controlling this well. ROS Const Constitutional: No anorexia, fatigue, fever(s), weight change or sleep problems Eyes Eyes: No change in vision ENT ENT: No abnormal hearing, difficulty swallowing, mouth lesions, tongue swelling or throat swelling Resp Respiratory: No cough or shortness of breath Cardio Cardiology: No chest pain at rest, chest pain with exertion, shortness of breath or dyspnea on exertion Maru (more content not included)... Normal [facility] Comprehensive Metabolic Prof ilon 07-27-2024 Albumin [Mass/Vol] 3.7 g/dL Normal 3.2-5.0 [facility] Comment on above: Order Comment: ONLY NEILEN ORDER Performed By: #### L 500.4100, L500.4050, L502.0250 #### [facility] [address] [place], [address] Albumin/Globulin [Mass ratio] 1.0 {ratio} Normal 0.9-2.4 [facility] Comment on above: Order Comment: ONLY NEILEN ORDER Performed By: #### L 500.4100, L500.4050, L502.0250 #### [facility] [address] [place], [address] ALK P 87 U/L Normal 45-117 [facility] Comment on above: Order Comment: ONLY NEILEN ORDER Performed By: #### L 500.4100, L500.4050, L502.0250 #### [facility] [address] [place], [address] ALT [Catalytic activity/Vol] 21 U/L Normal 13-56 [facility] Comment on above: Order Comment: ONLY NEILEN ORDER Performed By: #### L 500.4100, L500.4050, L502.0250 #### [facility] [address] [place], [address] AST [Catalytic activity/Vol] 16 U/L Normal 15-37 [facility] Comment on above: Order Comment: ONLY NEILEN ORDER Performed By: #### L 500.4100, L500.4050, L502.0250 #### [facility] [address] [place], [address] Bilirubin [Mass/Vol] 0.40 mg/dL Normal 0.20-1.00 [facility] Comment on above: Order Comment: ONLY NEILEN ORDER Result Comment: For patients on eltrombopag therapy, use of Dimension [place] TBIL is not recommended. Performed By: #### L 500.4100, L500.4050, L502.0250 #### [facility] [address] [place], [address] BUN/CRE 23.5 RATIO High 10-20 [facility] Comment on above: Order Comment: ONLY NEILEN ORDER Performed By: #### L 500.4100, L500.4050, L502.0250 #### [facility] [address] [place], [address] CA,Total 9.7 mg/dL Normal 8.5-10.1 [facility] Comment on above: Order Comment: ONLY NEILEN ORDER Performed By: #### L 500.4100, L500.4050, L502.0250 #### [facility] [address] [place], [address] Chloride [Moles/Vol] 103 mmol/L Normal 98-107 [facility] Comment on above: Order Comment: ONLY NEILEN ORDER Performed By: #### L 500.4100, L500.4050, L502.0250 #### [facility] [address] [place], [address] CO2 [Moles/Vol] 25.0 mmol/L Normal 21.0-32.0 [facility] Comment on above: Order Comment: ONLY NEILEN ORDER Performed By: #### L 500.4100, L500.4050, L502.0250 #### [facility] [address] [place], [address] Creatinine [Mass/Vol] 0.89 mg/dL Normal 0.55-1.02 [facility] Comment on above: Order Comment: ONLY NEILEN ORDER Result Comment: The validity of the calculated GFR GFRAA in patients over 70 years has not been determined. Clinical correlation is essential. Performed By: #### L 500.4100, L500.4050, L502.0250 #### [facility] [address] [place], [address] EST GFR - AA 80 mL/min Normal >60 [facility] Comment on above: Order Comment: ONLY NEILEN ORDER Result Comment: Afri can Irish GFR Calc Performed By: #### L 500.4100, L500.4050, L502.0250 #### [facility] [address] [place], [address] GAP 10 Normal 5-15 [facility] Comment on above: Order Comment: ONLY NEILEN ORDER Performed By: #### L 500.4100, L500.4050, L502.0250 #### [facility] [address] [place], [address] GFR/1.73 sq M.predicted among non-blacks MDRD (S/P/Bld) [Vol rate/Area] 66 mL/min/{1.73_m2} Normal >60 [facility] Comment on above: Order Comment: ONLY NEILEN ORDER Result Comment: Non- GFR Calc Performed By: #### L 500.4100, L500.4050, L502.0250 #### [facility] [address] [place], [address] Globulin (S) [Mass/Vol] 3.7 g/dL Normal 2.2-4.2 [facility] Comment on above: Order Comment: ONLY NEILEN ORDER Performed By: #### L 500.4100, L500.4050, L502.0250 #### [facility] [address] [place], [address] Glucose [Mass/Vol] 135 mg/dL High 74-106 [facility] Comment on above: Order Comment: ONLY NEILEN ORDER Result Comment: Fast ing Glucose result greater than or equal to 126 mg/dL suggests DIABETES MELLITUS per A.D.A. criteria. Performed By: #### L 500.4100, L500.4050, L502.0250 #### [facility] [address] [place], [address] Potassium [Moles/Vol] 3.5 mmol/L Normal 3.5-5.1 [facility] Comment on above: Order Comment: ONLY NEILEN ORDER Performed By: #### L 500.4100, L500.4050, L502.0250 #### [facility] [address] [place], [address] Sodium [Moles/Vol] 138 mmol/L Normal 136-145 [facility] Comment on above: Order Comment: ONLY NEILEN ORDER Performed By: #### L 500.4100, L500.4050, L502.0250 #### [facility] [address] [place], [address] T PROT 7.4 g/dL Normal 6.4-8.2 [facility] Comment on above: Order Comment: ONLY NEILEN ORDER Performed By: #### L 500.4100, L500.4050, L502.0250 #### [facility] [address] [place], [address] Urea nitrogen [Mass/Vol] 21 mg/dL High 7-18 [facility] Comment on above: Order Comment: ONLY NEILEN ORDER Performed By: #### L 500.4100, L500.4050, L502.0250 #### [facility] [address] [place], [address] Lipid Profileon 07-27-2024 Cholesterol [Mass/Vol] 141 mg/dL Normal 200 [facility] Comment on above: Order Comment: ONLY NEILEN ORDER Result Comment: <200 mg/dL Desirable 200-240 mg/dL Borderline >240 mg/dL High Risk Performed By: #### L 500.4100, L500.4050, L502.0250 #### [facility] [address] [place], [address] Cholesterol in HDL [Mass/Vol] 50 mg/dL Normal [facility] Comment on above: Order Comment: ONLY NEILEN ORDER Result Comment: The drugs N-Acetylcysteine and Metamizole may falsely depress this assay. Reference Range HDL <40 mg/dL Low HDL Cholesterol HDL >or= 60 mg/dL High HDL Cholesterol Performed By: #### L 500.4100, L500.4050, L502.0250 #### [facility] [address] [place], [address] Cholesterol in LDL [Mass/Vol] 53 mg/dL Normal 0-130 [facility] Comment on above: Order Comment: ONLY NEILEN ORDER Performed By: #### L 500.4100, L500.4050, L502.0250 #### [facility] [address] [place], [address] Cholesterol in VLDL [Mass/Vol] 38 mg/dL Normal 5-40 [facility] Comment on above: Order Comment: ONLY NEILEN ORDER Performed By: #### L 500.4100, L500.4050, L502.0250 #### [facility] [address] [place], [address] Triglyceride [Mass/Vol] 191 mg/dL Normal [facility] Comment on above: Order Comment: ONLY NEILEN ORDER Result Comment: The drugs N-Acetylcysteine and Metamizole may falsely depress this assay. Serum Triglycerides Reference Interval Normal <150 mg/dL Borderline high 150 - 199 mg/dL High 200 - 499 mg/dL Very High > or = 500 mg/dL Performed By: #### L 500.4100, L500.4050, L502.0250 #### [facility] [address] [place], [address] Microalb:Creat Ratio,Random URon 07-27-2024 Creatinine [Mass/Vol] 127.00 mg/dL Normal NO RAN GE EST. [facility] Comment on above: Performed By: #### L 500.4100, L500.4050, L502.0250 #### [facility] [address] [place], [address] MALB:CRE 35.7 mg/g CRE High <30 mg/g CRE [facility] Comment on above: Performed By: #### L 500.4100, L500.4050, L502.0250 #### [facility] [address] [place], [address] MICROALBUMIN,UR 45.3 mg/L Normal NO RANGE EST. [facility] Comment on above: Performed By: #### L 500.4100, L500.4050, L502.0250 #### [facility] [address] [place], [address] Chest without Contraston Chest without Contrast [facility] Imaging Services [address] [place] [address] Chest without Contrast MR#: [id number] Acct: [id number] Name: RAVI BECKHAM Rep #: [id number] : 1950 F 74 From: Jeremy Tinajero MD PCP: Dr. Misael Molina MD Status: REG CL Study: Chest without Contrast Date of Exam: 07/15/24 Exam# [id number] Ordering Dr: Dax Terry MD [id number] EXAM: CT CHEST WITHOUT INTRAVENOUS CONTRAST CLINICAL INDICATION: PULM NODULE TECHNIQUE: Helically acquired images were obtained of the chest without intravenous contrast. This CT exam was performed using one or more of the following dose reduction techniques: automated exposure control, adjustment of the mA and/or kV according to patient size, and/or use of iterative reconstruction technique. COMPARISON: 12/14/2023 FINDINGS: LUNGS AND PLEURAL SPACES: There are emphysematous changes in both lungs. There are noncalcified nodules seen within the left upper and lower lobes which are not significantly changed the largest in the superior segment of the left lower lobe measuring 8 mm. No pleural effusion or thickening. No pneumothorax. HEART: There are moderate coronary artery calcifications present. Heart size is normal. No pericardial effusion. MEDIASTINUM: Unremarkable. No mediastinal or hilar adenopathy. Esophagus is unremarkable. No hiatal hernia. THYROID: Unremarkable. No thyroid lesions. BONES/JOINTS: Unremarkable. No suspicious lytic or blastic abnormality. VASCULATURE: See above. CT/Chest without Contrast IMPRESSION: Multiple noncalcified nodules in the left upper and lower lobes which are nonspecific change from the reference exam. There are stable underlying emphysematous changes. Electronically Signed: Jeremy Tinajero MD at 0:16 EDT , CC: Dr. Misael Molina MD; Dr. 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 [place] [address] OFFICE VISIT Date of Service: 07/06/24 MR#: [id number] Acct: [id number] Name: RAVI BECKHAM Rep #: [id number] : 1950 Provider: BRANDEN Haas Age/Sex: 74/F Location: [facility] Status: Signed [facility] History of Present Illness Details: This is a 74-year-old white female who presents today for a cardiovascular follow-up visit. The patient carries a history of mild coronary disease by left heart catheterization October 2022 and history of paroxysmal atrial fibrillation. The patient denies any lightheadedness syncope or near syncope. She denies any anginal type symptoms. She is aerobically active but walks with a cane. EKG in the office today shows sinus rhythm with low voltage and was borderline. There is no significant ST or T wave changes and no ectopy noted. The patient reported short bursts less than a minute of palpitations that she feels is her atrial fibrillation. These occur approximately once per month they are always self-limited, less than one hour. She does not have a current list of medications. Intake Vital Signs 01/07/24 13:01 07/06/24 13:28 Height 5 ft 8 in 5 ft 8 in Weight: 172 lb 161 lb BMI 26.1 24.5 BP 144/76 H 121/76 H Blood Pressure Location Lt brachial Lt brachial Position Sitting Sitting Respiration 18 18 Pulse 72 58 L Pulse Source Monitor Monitor Pulse Oximetry (%) 92 93 Oxygen Delivery Method room air Intake Visit Reasons: 6 M FU Ropeman Required: No Is patient in pain?: No Allergies Sulfa (Sulfonamide Antibiotics) Allergy (Unknown, Verified 07/06/24 13:30) GI issues Medications ???Medication ???Instructions ???Recorded ???Confirmed ???Type alendronate 70 mg tablet 70 mg PO MO Osteoporosis 05/18/22 07/06/24 History pantoprazole 40 mg tablet,delayed 40 mg PO BID GERD 30 days #60 tabs 07/30/22 07/06/24 Rx release polysaccharide iron complex 150 mg 150 mg PO DAILY anemia 30 days #30 07/30/22 07/06/24 Rx iron capsule (Ferrex) caps cholecalciferol (vitamin D3) 50 50 mcg PO DAILY supplement 09/23/22 07/06/24 History mcg (2,000 unit) tablet metoprolol tartrate 25 mg tablet 6.25 mg PO BIDCM afib 09/23/22 07/06/24 History potassium chloride 20 mEq 20 meq PO BIDCM supplement 30 days 11/14/22 07/06/24 Rx tablet,extended #60 tabs release(part/cryst) (Klor-Con M) apixaban 5 mg tablet (Eliquis) 5 mg PO BID blood thinner #180 tabs 12/10/23 07/06/24 Rx atorvastatin 40 mg tablet 20 mg (1/2 x 40 mg) PO QHS 03/02/24 07/06/24 Rx Cholestrol #30 tabs metformin 1,000 mg tablet 1,000 mg PO BID 07/06/24 07/06/24 History midodrine 5 mg tablet 10 mg PO BID blood pressure 07/06/24 History Have you fallen in the past year?: No PFSH Medical History Iatrogenic pneumothorax Legionnaires' disease Wears glasses Wears partial dentures Ambulates with cane Arthritis Anemia Low iron Dietary restriction History of diverticulitis History of ulceration History of GI bleed Gastric reflux Former smoker Emphysema, unspecified Shortness of breath on exertion History of echocardiogram History of stress test Cardiology follow-up encounter Hypertension History of atrial fibrillation History of left heart catheterization (LHC) ( 11/11/22) Atherosclerotic heart disease of [place] coronary artery without angina pectoris Abnormal stress test Type 1 diabetes Tobacco abuse Hematuria Diabetes mellitus Paroxysmal A-fib History of diabetes mellitus Frequent urinary tract infections COVID-19 High cholesterol Diabetes Surgical History Status post chest tube placement History of cardiac catheterization Hx of esophagogastroduodenoscop y Family History Uncle Heart disease Uncle Heart disease Social History household members: spouse Smoking Status: Former smoker alcohol intake: never substance use type: does not use caffeine: Yes Type: coffee Number of servings: 2 ROS Const Const: Negative for fatigue, weakness, headache(s) or frequent falls Eyes Eyes: Negative for loss of peripheral vision or change in vision ENT ENT: Negative for headache(s), dizziness, hearing loss or Nosebleed/epistaxis Cardio Chest Pain: No Palpitations: Yes Edema: None Muscle aches with walking: None Resp Respiratory: Negative for SOB with activity, SOB at rest or SOB orthopnea SOB lying down GI GI: Negative nausea, vomiting, heartburn, bright, red blood in stools or black,tarry stools Musc Musc: Positive for muscle aches/ myalgia Neuro (more content not included)... Normal [facility] Basophil percentageOrdered B y: Misael Molina on 12-02-2023 Chloride [Moles/Vol] 104 mmol/L 98-107 [facility] Cholesterol [Mass/Vol] 173 mg/dL <200 [facility] Comment on above: <200 mg/dL Desirable 200-240 mg/dL Borderline >240 mg/dL High Risk Glucose [Mass/Vol] 168 mg/dL 74-106 [facility] Comment on above: Fasting Glucose resu lt greater than or equal to 126 mg/dL suggests DIABETES MELLITUS per A.D.A. criteria. Potassium [Moles/Vol] 4.1 mmol/L 3.5-5.1 [facility] Sodium [Moles/Vol] 139 mmol/L 136-145 [facility] Triglyceride [Mass/Vol] 181 mg/dL <199 [facility] Comment on above: The drugs N-Acetylcy steine and Metamizole may falsely depress this assay.Serum Triglycerides Reference Interval Normal <150 mg/dL Borderline high 150 - 199 mg/dL High 200 - 499 mg/dL Very High > or = 500 mg/dL Laboratory - Chemistry and C hemistry - challengeOrdered By: Misael Molina on 12-02-2023 Cholesterol in HDL [Mass/Vol] 50 mg/dL >40 [facility] Comment on above: The drugs N-Acetylcy steine and Metamizole may falsely depress this assay. Reference Range HDL <40 mg/dL Low HDL Cholesterol HDL >or= 60 mg/dL High HDL Cholesterol Cholesterol in LDL [Mass/Vol] 87 mg/dL 0-130 [facility] CO2 [Moles/Vol] 27.0 mmol/L 21.0-32.0 [facility] Urea nitrogen/Creatinine [Mass ratio] 19.4 mg/mg 10-20 [facility] No Panel InformationOrdered By: Misael Molina on 12-02-2023 Estimated GFR (MDRD) Amer 76 mL/min >60 [facility] Comment on above: GFR Calc Estimated GFR (MDRD) Non-Af Amer 63 mL/min >60 [facility] Comment on above: Non- GFR Calc Urine Microalbumin/Creatinine Ratio 20.4 mg/g CRE <30 [facility] VLDL Cholesterol 36 mg/dL 5-40 [facility] Serum or plasma calcium ana urement (mass/volume)Ordered By: Misael Molina on 12-02-2023 Calcium [Mass/Vol] 9.7 mg/dL 8.5-10.1 [facility] Serum or plasma creatinine m easurement (mass/volume)Ordered By: Misael Molina on 12-02-2023 Creatinine [Mass/Vol] 0.93 mg/dL 0.55-1.02 [facility] Comment on above: The validity of the calculated GFR & GFRAA in patients over 70 years has not been determined. Clinical correlation is essential. Serum or plasma urea nitroge n measurement (mass/volume)Ordered By: Misael Mloina on 12-02-2023 Urea nitrogen [Mass/Vol] 18 mg/dL 7-18 [facility] Thin prep Papanicolaou smear with manual screeningOrdered By: Misael Molina on 12-02-2023 Thin prep Papanicolaou smear with manual screening 8 5-15 [facility] Thin prep Papanicolaou smear with manual screening 28.7 mg/L NO RANGE EST. [facility] Urine creatinine measurement (mass/volume)Ordered By: Misael Molina on 12-02-2023 Creatinine (U) [Mass/Vol] 141.00 mg/dL NO RANGE EST. [facility] Whole blood hemoglobin A1c/t otal hemoglobin ratio (mass fraction)Ordered By: Misael Molina on 12-02-2023 HbA1c (Bld) [Mass fraction] 7.2 % 3.8-5.6 [facility] Comment on above: Normal < 5.7 % Predi abetic 5.7 - 6.4 % Diabetic >or= 6.5 % Please note range changes. Culture, urineOrdered By: Branden Molina on 06-25-2023 Bacteria identified Cx Nom (U) Citrobacter freundii [facility] Basophil percentageOrdered B y: Misael Molina on 06-08-2023 Chloride [Moles/Vol] 100 mmol/L 98-107 [facility] Cholesterol [Mass/Vol] 185 mg/dL <200 [facility] Comment on above: <200 mg/dL Desirable 200-240 mg/dL Borderline >240 mg/dL High Risk Glucose [Mass/Vol] 152 mg/dL 74-106 [facility] Comment on above: Fasting Glucose resu lt greater than or equal to 126 mg/dL suggests DIABETES MELLITUS per A.D.A. criteria. Potassium [Moles/Vol] 3.9 mmol/L 3.5-5.1 [facility] Sodium [Moles/Vol] 136 mmol/L 136-145 [facility] Triglyceride [Mass/Vol] 254 mg/dL <199 [facility] Comment on above: The drugs N-Acetylcy steine and Metamizole may falsely depress this assay.Serum Triglycerides Reference Interval Normal <150 mg/dL Borderline high 150 - 199 mg/dL High 200 - 499 mg/dL Very High > or = 500 mg/dL Laboratory - Chemistry and C hemistry - challengeOrdered By: Misael Molina on 06-08-2023 CO2 [Moles/Vol] 26.0 mmol/L 21.0-32.0 [facility] Urea nitrogen/Creatinine [Mass ratio] 14.1 mg/mg 10-20 [facility] No Panel InformationOrdered By: Misael Molina on 06-08-2023 Estimated GFR (MDRD) Amer 85 mL/min >60 [facility] Comment on above: GFR Calc Estimated GFR (MDRD) Non-Af Amer 70 mL/min >60 [facility] Comment on above: Non- GFR Calc Serum or plasma calcium ana urement (mass/volume)Ordered By: Misael Molina on 06-08-2023 Calcium [Mass/Vol] 9.7 mg/dL 8.5-10.1 [facility] Serum or plasma cholesterol in HDL measurement (mass/volume)Ordered By: Misael Molina on 06-08-2023 Cholesterol in HDL [Mass/Vol] 48 mg/dL >40 [facility] Comment on above: The drugs N-Acetylcy steine and Metamizole may falsely depress this assay. Reference Range HDL <40 mg/dL Low HDL Cholesterol HDL >or= 60 mg/dL High HDL Cholesterol Serum or plasma cholesterol in VLDL measurement (mass/volume)Ordered By: Misael Molina on 06-08-2023 Cholesterol in VLDL [Mass/Vol] 51 mg/dL 5-40 [facility] Serum or plasma creatinine m easurement (mass/volume)Ordered By: Misael Molina on 06-08-2023 Creatinine [Mass/Vol] 0.85 mg/dL 0.55-1.02 [facility] Comment on above: The validity of the calculated GFR & GFRAA in patients over 70 years has not been determined. Clinical correlation is essential. Serum or plasma low density lipoprotein (LDL) cholesterol measurement (mass/volume)Ordered By: Misael Molina on 06-08-2023 Cholesterol in LDL [Mass/Vol] 86 mg/dL 0-130 [facility] Serum or plasma urea nitroge n measurement (mass/volume)Ordered By: Misael Molina on 06-08-2023 Urea nitrogen [Mass/Vol] 12 mg/dL 7-18 [facility] Thin prep Papanicolaou smear with manual screeningOrdered By: Misael Molina on 06-08-2023 Thin prep Papanicolaou smear with manual screening 10 5-15 [facility] Glucose Glucometer (BldC) [M ass/Vol]Ordered By: Maurilio Mcmanus on 01-27-2023 Glucose [Mass/Vol] 171 mg/dL 74-106 [facility] Comment on above: MANAGEMENT OF PATIEN T CARE PER NURSING PROTOCOL Absolute lymphocyte countOrd ered By: Dr. Terry on 01-26-2023 Lymphocytes Auto (Unsp spec) [#/Vol] 2.49 10*3/uL 0.83-4.51 [facility] Atypical perinuclear antineu trophil cytoplasmic antibodies measurementOrdered By: Dr. Terry on 01-26-2023 Neutrophil cytoplasmic Ab.perinuclear.atypical IF (S) [Titer] <1:20 titer Neg:<1:20 [facility] Comment on above: The atypical pANCA p attern has been observed in asignificant percentage of patients with ulcerative colitis,primary sclerosing cholangitis and autoimmune hepatitis. Basophil percentageOrdered B y: Dr. Terry on 01-26-2023 Basophil percentage < 0.2 AI 0.0-0.9 [facility] Basophils/100 WBC (Bld) 0.5 % 0-1 [facility] Bilirubin [Mass/Vol] 0.40 mg/dL 0.20-1.00 [facility] Comment on above: For patients on eltr ombopag therapy, use of Dimension [place] TBIL is not recommended. Eosinophils/100 WBC (Bld) 2.0 % 0-5 [facility] Neutrophils (Bld) [#/Vol] 6.4 10*3/uL 2.0-7.7 [facility] Neutrophils/100 WBC (Bld) 65.7 % 47-70 [facility] Protein [Mass/Vol] 8.2 g/dL 6.4-8.2 [facility] WBC (Bld) [#/Vol] 9.7 10*3/uL 4.4-11.0 [facility] Blood erythrocytes count (nu mber/volume)Ordered By: Dr. Terry on 01-26-2023 RBC (Bld) [#/Vol] 4.15 10*6/uL 4.2-5.4 [facility] Blood hemoglobin measurement (mass/volume)Ordered By: Dr. Terry on 01-26-2023 Hemoglobin (Bld) [Mass/Vol] 12.6 g/dL 12.0-15.0 [facility] Blood lymphocytes/100 leukoc ytesOrdered By: Dr. Terry on 01-26-2023 Lymphocytes/100 WBC (Bld) 25.8 % 19-41 [facility] Blood monocytes/100 leukocyt esOrdered By: Dr. Terry on 01-26-2023 Monocytes/100 WBC (Bld) 5.7 % 0-10 [facility] Blood platelet mean volumeOr dered By: Dr. Terry on 01-26-2023 Platelet mean volume (Bld) [Entitic vol] 9.3 fL 6.2-12.0 [facility] Determination of erythrocyte mean corpuscular volume (MCV)Ordered By: Dr. Terry on 01-26-2023 MCV (RBC) [Entitic vol] 96.1 fL 81-99 [facility] Direct bilirubinOrdered By: Dr. Terry on 01-26-2023 Bilirubin.direct [Mass/Vol] 0.11 mg/dL 0.00-0.30 [facility] Erythrocyte sedimentation ra teOrdered By: Dr. Terry on 01-26-2023 ESR (Bld) [Velocity] 20 mm/h 0-30 [facility] Hematocrit Auto (Bld) [Volum e fraction]Ordered By: Dr. Terry on 01-26-2023 Hematocrit (Bld) [Volume fraction] 39.9 % 37-47 [facility] Laboratory - Chemistry and C hemistry - challengeOrdered By: Dr. Terry on 01-26-2023 ALP [Catalytic activity/Vol] 76 U/L 45-117 [facility] ALT [Catalytic activity/Vol] 28 U/L 13-56 [facility] Globulin (S) [Mass/Vol] 3.8 g/dL 2.2-4.2 [facility] Laboratory - Hematology and Cell countsOrdered By: Dr. Terry on 01-26-2023 Erythrocyte distribution width (RBC) [Entitic vol] 46.6 fL 35.1-43.9 [facility] Erythrocyte distribution width (RBC) [Ratio] 13.2 % 11.6-14.6 [facility] Immature granulocytes/100 WBC (Bld) 0.300 % 0.0-0.9 [facility] Comment on above: IG% - Immature Granu locytes (promyelocytes, myelocytes and metamyelocytes) > 1% indicates that a LEFT SHIFT is Present. MCH (RBC) [Entitic mass] 30.4 pg 27.0-32.0 [facility] Nucleated RBC/100 WBC (Bld) [Ratio] 0 % 0-5 [facility] MCHC Auto (RBC) [Mass/Vol]Or dered By: Dr. Terry on 01-26-2023 MCHC (RBC) [Mass/Vol] 31.6 g/dL 32-36 [facility] No Panel InformationOrdered By: Dr. Terry on 01-26-2023 Anti-Nuclear Antibody Screen Negative Negative [facility] Comment on above: Performed at: [facility] [address] Director: Chuck Crabtree PhD, Phone: [phone] PHYSICIAN ASST Antibody <0.2 AI 0.0-0.9 [facility] Platelets bldOrdered By: Dr. Terry on 01-26-2023 Platelets (Bld) [#/Vol] 436 10*3/uL 150-450 [facility] Serum DNA double strand anti body assay (units/volume)Ordered By: Dr. Terry on 01-26-2023 DNA double strand Ab Qn (S) [IU]/mL 0-9 [facility] Comment on above: Negative <5 Equivoca l 5 - 9 Positive >9 Serum Scl-70 extractable nuc lear antibody assay (units/volume)Ordered By: Dr. Terry on 01-26-2023 SCL-70 extractable nuclear Ab Qn (S) <0.2 AI 0.0-0.9 [facility] Serum classic neutrophil cyt oplasmic antibody assay (units/volume)Ordered By: Dr. Terry on 01-26-2023 Neutrophil cytoplasmic Ab.classic Qn (S) <1:20 titer Neg:<1:20 [facility] Serum cyclic citrullinated p eptide IgG antibody assay (units/volume)Ordered By: Dr. Terry on 01-26-2023 Cyclic citrullinated peptide IgG Qn 6 units 0-19 [facility] Comment on above: Negative <20 Weak po sitive 20 - 39 Moderate positive 40 - 59 Strong positive >59Performed at: [address] [id number] Director: Chuck Crabtree PhD, Phone: [phone] Serum or plasma C reactive p rotein measurement (mass/volume)Ordered By: Dr. Terry on 01-26-2023 CRP [Mass/Vol] 3.32 mg/L 0.0-3.0 [facility] Comment on above: C-Reactive Protein ( CRP) provides useful information for thediagnosis, therapy and monitoring of inflammatory processesand associated diseases. For the evaluation of Relative Riskfor Cardiovascular Disease, a High Sensitivity CRP (HSCRP)should be ordered. Serum or plasma actin IgG an tibody assay (units/volume)Ordered By: Dr. Terry on 01-26-2023 Actin IgG Qn 5 Units 0-19 [facility] Comment on above: Negative 0 - 19 Weak positive 20 - 30 Moderate to strong positive >30 Actin Antibodies are found in 52-85% of patients with autoimmune hepatitis or chronic active hepatitis and in 22% of patients with primary biliary cirrhosis. Serum or plasma albumin ana urement (mass/volume)Ordered By: Dr. Terry on 01-26-2023 Albumin [Mass/Vol] 4.4 g/dL 3.2-5.0 [facility] Serum or plasma angiotensin converting enzyme measurement (enzymatic activity/volume)Ordered By: Dr. Terry on 01-26-2023 Angiotensin converting enzyme [Catalytic activity/Vol] 64 U/L 14-82 [facility] Serum perinuclear neutrophil cytoplasmic antibody titer by immunofluorescenceOrdered By: Dr. Terry on 01-26-2023 Neutrophil cytoplasmic Ab.perinuclear IF (S) [Titer] <1:20 titer Neg:<1:20 [facility] Comment on above: The presence of posi tive fluorescence exhibiting P-ANCA orC-ANCA patterns alone is not specific for the diagnosis ofWegener's Granulomatosis (WG) or microscopic polyangiitis.Decisions about treatment should not be based solely onANCA IFA results. The [employer] ANCA [employer] Consensusrecommends follow up testing of positive sera with both WV-3 and MPO-ANCA enzyme immunoassays. As many as 5% serumsamples are positive only by EIA. Ref. AM J Clin [id number];111:507-513. Serum rheumatoid factor dete ctionOrdered By: Dr. Terry on 01-26-2023 Rheumatoid factor Ql (S) < 10.0 IU/mL <15 [facility] Thin prep Papanicolaou smear with manual screeningOrdered By: Dr. Terry on 01-26-2023 Thin prep Papanicolaou smear with manual screening 18 U/L 15-37 [facility] Basophil percentageOrdered B y: Dr. Molina on 12-11-2022 Cholesterol [Mass/Vol] 156 mg/dL <200 [facility] Comment on above: <200 mg/dL Desirable 200-240 mg/dL Borderline >240 mg/dL High Risk Triglyceride [Mass/Vol] 182 mg/dL <199 [facility] Comment on above: The drugs N-Acetylcy steine and Metamizole may falsely depress this assay.Serum Triglycerides Reference Interval Normal <150 mg/dL Borderline high 150 - 199 mg/dL High 200 - 499 mg/dL Very High > or = 500 mg/dL Serum or plasma cholesterol in HDL measurement (mass/volume)Ordered By: Dr. Molina on 12-11-2022 Cholesterol in HDL [Mass/Vol] 46 mg/dL >40 [facility] Comment on above: The drugs N-Acetylcy steine and Metamizole may falsely depress this assay. Reference Range HDL <40 mg/dL Low HDL Cholesterol HDL >or= 60 mg/dL High HDL Cholesterol Serum or plasma cholesterol in VLDL measurement (mass/volume)Ordered By: Dr. Molina on 12-11-2022 Cholesterol in VLDL [Mass/Vol] 36 mg/dL 5-40 [facility] Serum or plasma low density lipoprotein (LDL) cholesterol measurement (mass/volume)Ordered By: Dr. Molina on 12-11-2022 Cholesterol in LDL [Mass/Vol] 74 mg/dL 0-130 [facility] Basophil percentageOrdered B y: Dr. Daniels on 11-13-2022 Chloride [Moles/Vol] 100 mmol/L 98-107 [facility] Glucose [Mass/Vol] 122 mg/dL 74-106 [facility] Comment on above: Fasting Glucose resu lt from 100 to 125 mg/dL suggests IMPAIRED HOMEOSTASIS per A.D.A. criteria. Potassium [Moles/Vol] 3.4 mmol/L 3.5-5.1 [facility] Sodium [Moles/Vol] 137 mmol/L 136-145 [facility] Laboratory - Chemistry and C hemistry - challengeOrdered By: Dr. Daniels on 11-13-2022 CO2 [Moles/Vol] 27.0 mmol/L 21.0-32.0 [facility] Urea nitrogen/Creatinine [Mass ratio] 21.3 mg/mg 10-20 [facility] No Panel InformationOrdered By: Dr. Daniels on 11-13-2022 Estimated GFR (MDRD) Amer 85 mL/min >60 [facility] Comment on above: GFR Calc Estimated GFR (MDRD) Non-Af Amer 70 mL/min >60 [facility] Comment on above: Non- GFR Calc Serum or plasma calcium ana urement (mass/volume)Ordered By: Dr. Daniels on 11-13-2022 Calcium [Mass/Vol] 8.9 mg/dL 8.5-10.1 [facility] Serum or plasma creatinine m easurement (mass/volume)Ordered By: Dr. Daniels on 11-13-2022 Creatinine [Mass/Vol] 0.85 mg/dL 0.55-1.02 [facility] Comment on above: The validity of the calculated GFR & GFRAA in patients over 70 years has not been determined. Clinical correlation is essential. Serum or plasma urea nitroge n measurement (mass/volume)Ordered By: Dr. Daniels on 11-13-2022 Urea nitrogen [Mass/Vol] 18 mg/dL 7-18 [facility] Thin prep Papanicolaou smear with manual screeningOrdered By: Dr. Daniels on 11-13-2022 Thin prep Papanicolaou smear with manual screening 10 5-15 [facility] Basophil percentageOrdered B y: Dr. Daniels on 11-04-2022 Chloride [Moles/Vol] 100 mmol/L 98-107 [facility] Glucose [Mass/Vol] 130 mg/dL 74-106 [facility] Comment on above: Fasting Glucose resu lt greater than or equal to 126 mg/dL suggests DIABETES MELLITUS per A.D.A. criteria. Potassium [Moles/Vol] 3.6 mmol/L 3.5-5.1 [facility] Sodium [Moles/Vol] 137 mmol/L 136-145 [facility] WBC (Bld) [#/Vol] 11.7 10*3/uL 4.4-11.0 [facility] Blood erythrocytes count (nu mber/volume)Ordered By: Dr. Daniels on 11-04-2022 RBC (Bld) [#/Vol] 3.93 10*6/uL 4.2-5.4 [facility] Blood hemoglobin measurement (mass/volume)Ordered By: Dr. Daniels on 11-04-2022 Hemoglobin (Bld) [Mass/Vol] 11.4 g/dL 12.0-15.0 [facility] Blood platelet mean volumeOr dered By: Dr. Daniels on 11-04-2022 Platelet mean volume (Bld) [Entitic vol] 9.1 fL 6.2-12.0 [facility] Determination of erythrocyte mean corpuscular volume (MCV)Ordered By: Dr. Daniels on 11-04-2022 MCV (RBC) [Entitic vol] 93.4 fL 81-99 [facility] Hematocrit Auto (Bld) [Volum e fraction]Ordered By: Dr. Daniels on 11-04-2022 Hematocrit (Bld) [Volume fraction] 36.7 % 37-47 [facility] INR in Blood by Coagulation assayOrdered By: Dr. Daniels on 11-04-2022 INR Coag (Bld) [Relative time] 1.1 {INR} [facility] Laboratory - Chemistry and C hemistry - challengeOrdered By: Dr. Daniels on 11-04-2022 CO2 [Moles/Vol] 28.0 mmol/L 21.0-32.0 [facility] Urea nitrogen/Creatinine [Mass ratio] 28.0 mg/mg 10-20 [facility] Laboratory - CoagulationOrde red By: Dr. Daniels on 11-04-2022 aPTT Coag (Bld) [Time] 32.2 s 24.1-36.2 [facility] PT Coag (PPP) [Time] 14.1 s 11.7-14.9 [facility] Laboratory - Hematology and Cell countsOrdered By: Dr. Daniels on 11-04-2022 Erythrocyte distribution width (RBC) [Entitic vol] 49.3 fL 35.1-43.9 [facility] Erythrocyte distribution width (RBC) [Ratio] 14.4 % 11.6-14.6 [facility] MCH (RBC) [Entitic mass] 29.0 pg 27.0-32.0 [facility] MCHC Auto (RBC) [Mass/Vol]Or dered By: Dr. Daniels on 11-04-2022 MCHC (RBC) [Mass/Vol] 31.1 g/dL 32-36 [facility] No Panel InformationOrdered By: Dr. Daniels on 11-04-2022 Estimated GFR (MDRD) Amer 93 mL/min >60 [facility] Comment on above: GFR Calc Estimated GFR (MDRD) Non-Af Amer 77 mL/min >60 [facility] Comment on above: Non- GFR Calc Platelets bldOrdered By: Dr. Daniels on 11-04-2022 Platelets (Bld) [#/Vol] 445 10*3/uL 150-450 [facility] Serum or plasma calcium ana urement (mass/volume)Ordered By: Dr. Daniels on 11-04-2022 Calcium [Mass/Vol] 9.3 mg/dL 8.5-10.1 [facility] Serum or plasma creatinine m easurement (mass/volume)Ordered By: Dr. Daniels on 11-04-2022 Creatinine [Mass/Vol] 0.78 mg/dL 0.55-1.02 [facility] Comment on above: The validity of the calculated GFR & GFRAA in patients over 70 years has not been determined. Clinical correlation is essential. Serum or plasma urea nitroge n measurement (mass/volume)Ordered By: Dr. Daniels on 11-04-2022 Urea nitrogen [Mass/Vol] 22 mg/dL 7-18 [facility] Thin prep Papanicolaou smear with manual screeningOrdered By: Dr. Daniels on 11-04-2022 Thin prep Papanicolaou smear with manual screening 9 5-15 [facility] Culture, urineOrdered By: Dr Abdelrahman Wagner on 08-08-2022 Bacteria identified Cx Nom (U) Klebsiella pneumoniae sp pneum [facility] Glucose Glucometer (BldC) [M ass/Vol]Ordered By: Dr. Wagner on 08-06-2022 Glucose [Mass/Vol] 135 mg/dL 74-106 [facility] Comment on above: MANAGEMENT OF PATIEN T CARE PER NURSING PROTOCOL Basophil percentageOrdered B y: Dr. Wagner on 08-05-2022 Basophil percentage >100 SEEN /hpf 0-5 [facility] Bilirubin Test strip Ql (U)O rdered By: Dr. Wagner on 08-05-2022 Bilirubin Ql (U) Negative Negative [facility] Ketones Test strip Ql (U)Ord ered By: Dr. Wagner on 08-05-2022 Ketones Ql (U) Negative Negative [facility] Mucus LM Ql (Urine sed)Order ed By: Dr. Wagner on 08-05-2022 Mucus Ql (Urine sed) 0 SEEN /hpf [facility] Nitrite Test strip Ql (U)Ord ered By: Dr. Wagner on 08-05-2022 Nitrite Ql (U) Negative Negative [facility] Protein Test strip Ql (U)Ord ered By: Dr. Wagner on 08-05-2022 Protein Ql (U) 15 mg/dl Negative [facility] Squamous epithelial cells de tection in urine sediment by light microscopyOrdered By: Dr. Wagner on 08-05-2022 Epithelial cells.squamous LM Ql (Urine sed) 0-5 SEEN /hpf 5-10 [facility] Urine blood detectionOrdered By: Dr. Wagner on 08-05-2022 RBC Ql (U) 25 /ul Negative [facility] RBC Ql (U) 5-10 SEEN /hpf 0-5 [facility] Urine clarityOrdered By: Dr. Wagner on 08-05-2022 Clarity (U) Sl. Cloudy Clear [facility] Urine color determinationOrd ered By: Dr. Wagner on 08-05-2022 Color (U) Yellow Yellow [facility] Urine glucose detectionOrder ed By: Dr. Wagner on 08-05-2022 Glucose Ql (U) Normal mg/dl Normal [facility] Urine leukocyte esterase det ection by dipstickOrdered By: Dr. Wagner on 08-05-2022 Leukocyte esterase Test strip Ql (U) 500 /ul Negative [facility] Urine pHOrdered By: Dr. Wagner on 08-05-2022 pH (U) 6.0 [pH] 5.0 - 8.0 [facility] Urine sediment bacteria coun t by microscopy (number/high power field)Ordered By: Dr. Wagner on 08-05-2022 Bacteria LM.HPF (Urine sed) [#/Area] 4 /[HPF] None Seen [facility] Urine specific gravity measu rementOrdered By: Dr. Wagner on 08-05-2022 Specific gravity (U) [Rel density] 1.010 1.002-1.03 0 [facility] Urobilinogen Auto test strip Ql (U)Ordered By: Dr. Wagner on 08-05-2022 Urobilinogen Ql (U) Normal mg/dl Normal [facility] Absolute lymphocyte countOrd ered By: Dr. Wagner on 07-31-2022 Lymphocytes Auto (Unsp spec) [#/Vol] 1.82 10*3/uL 0.83-4.51 [facility] Basophil percentageOrdered B y: Dr. Wagner on 07-31-2022 Basophils/100 WBC (Bld) 0.6 % 0-1 [facility] Chloride [Moles/Vol] 102 mmol/L 98-107 [facility] Eosinophils/100 WBC (Bld) 8.2 % 0-5 [facility] Glucose [Mass/Vol] 160 mg/dL 74-106 [facility] Comment on above: Fasting Glucose resu lt greater than or equal to 126 mg/dL suggests DIABETES MELLITUS per A.D.A. criteria. Neutrophils (Bld) [#/Vol] 7.3 10*3/uL 2.0-7.7 [facility] [facility] Neutrophils/100 WBC (Bld) 64.9 % 47-70 [facility] Potassium [Moles/Vol] 3.9 mmol/L 3.5-5.1 [facility] Sodium [Moles/Vol] 135 mmol/L 136-145 [facility] WBC (Bld) [#/Vol] 11.3 10*3/uL 4.4-11.0 [facility] Blood erythrocytes count (nu mber/volume)Ordered By: Dr. Wagner on 07-31-2022 RBC (Bld) [#/Vol] 3.57 10*6/uL 4.2-5.4 [facility] Blood hemoglobin measurement (mass/volume)Ordered By: Dr. Wagner on 07-31-2022 Hemoglobin (Bld) [Mass/Vol] 10.0 g/dL 12.0-15.0 [facility] Blood lymphocytes/100 leukoc ytesOrdered By: Dr. Wagner on 07-31-2022 Lymphocytes/100 WBC (Bld) 16.1 % 19-41 [facility] Blood monocytes/100 leukocyt esOrdered By: Dr. Wagner on 07-31-2022 Monocytes/100 WBC (Bld) 9.1 % 0-10 [facility] Blood platelet mean volumeOr dered By: Dr. Wagner on 07-31-2022 Platelet mean volume (Bld) [Entitic vol] 9.9 fL 6.2-12.0 [facility] Determination of erythrocyte mean corpuscular volume (MCV)Ordered By: Dr. Wagner on 07-31-2022 MCV (RBC) [Entitic vol] 89.9 fL 81-99 [facility] Hematocrit Auto (Bld) [Volum e fraction]Ordered By: Dr. Wagner on 07-31-2022 Hematocrit (Bld) [Volume fraction] 32.1 % 37-47 [facility] Laboratory - Chemistry and C hemistry - challengeOrdered By: Dr. Wagner on 07-31-2022 CO2 [Moles/Vol] 24.0 mmol/L 21.0-32.0 [facility] Urea nitrogen/Creatinine [Mass ratio] 18.2 mg/mg 10-20 [facility] Laboratory - Hematology and Cell countsOrdered By: Dr. Wagner on 07-31-2022 Erythrocyte distribution width (RBC) [Entitic vol] 54.6 fL 35.1-43.9 [facility] Erythrocyte distribution width (RBC) [Ratio] 16.6 % 11.6-14.6 [facility] Immature granulocytes/100 WBC (Bld) 1.100 % 0.0-0.9 [facility] Comment on above: IG% - Immature Granu locytes (promyelocytes, myelocytes and metamyelocytes) > 1% indicates that a LEFT SHIFT is Present. MCH (RBC) [Entitic mass] 28.0 pg 27.0-32.0 [facility] Nucleated RBC/100 WBC (Bld) [Ratio] 0 % 0-5 [facility] MCHC Auto (RBC) [Mass/Vol]Or dered By: Dr. Wagner on 07-31-2022 MCHC (RBC) [Mass/Vol] 31.2 g/dL 32-36 [facility] No Panel InformationOrdered By: Dr. Wagner on 07-31-2022 Estimated Creatinine Clearance Calc 49.93 ml/min [facility] Estimated GFR (MDRD) Amer 126 mL/min >60 [facility] Comment on above: GFR Calc Estimated GFR (MDRD) Non-Af Amer 104 mL/min >60 [facility] Comment on above: Non- GFR Calc Platelets bldOrdered By: Dr. Wagner on 07-31-2022 Platelets (Bld) [#/Vol] 447 10*3/uL 150-450 [facility] Serum or plasma calcium ana urement (mass/volume)Ordered By: Dr. Wagner on 07-31-2022 Calcium [Mass/Vol] 8.7 mg/dL 8.5-10.1 [facility] Serum or plasma creatinine m easurement (mass/volume)Ordered By: Dr. Wagner on 07-31-2022 Creatinine [Mass/Vol] 0.60 mg/dL 0.55-1.02 [facility] Comment on above: The validity of the calculated GFR & GFRAA in patients over 70 years has not been determined. Clinical correlation is essential. Serum or plasma urea nitroge n measurement (mass/volume)Ordered By: Dr. Wagner on 07-31-2022 Urea nitrogen [Mass/Vol] 11 mg/dL 7-18 [facility] Thin prep Papanicolaou smear with manual screeningOrdered By: Dr. Wagner on 07-31-2022 Thin prep Papanicolaou smear with manual screening 9 5-15 [facility] COVID-19 virus antigen assay Ordered By: Dr. Wagner on 07-03-2022 SARS-CoV-2 (COVID-19) Ag IA.rapid Ql (Resp) [facility] Glucose Glucometer (BldC) [M ass/Vol]on 07-02-2022 Glucose [Mass/Vol] 99 mg/dL 74-106 [facility] Work Phone: Comment on above: MANAGEMENT OF PATIEN T CARE PER NURSING PROTOCOL Basophil percentageon 2021 Chloride [Moles/Vol] 103 mmol/L 98-107 [facility] Work Phone: Glucose [Mass/Vol] 114 mg/dL 74-106 [facility] Work Phone: Comment on above: Fasting Glucose resu lt from 100 to 125 mg/dL suggests IMPAIRED HOMEOSTASIS per A.D.A. criteria. Potassium [Moles/Vol] 3.8 mmol/L 3.5-5.1 [facility] Work Phone: Sodium [Moles/Vol] 136 mmol/L 136-145 [facility] Work Phone: Blood hemoglobin measurement (mass/volume)on 06-30-2022 Hemoglobin (Bld) [Mass/Vol] 9.1 g/dL 12.0-15.0 [facility] Work Phone: Hematocrit Auto (Bld) [Volum e fraction]on 06-30-2022 Hematocrit (Bld) [Volume fraction] 28.8 % 37-47 [facility] Work Phone: Laboratory - Chemistry and C hemistry - challengeon 06-30-2022 CO2 [Moles/Vol] 28.0 mmol/L 21.0-32.0 [facility] Work Phone: Urea nitrogen/Creatinine [Mass ratio] 24.9 mg/mg 10-20 [facility] Work Phone: No Panel Informationon 06-30 Estimated Creatinine Clearance Calc 52.81 ml/min [facility] Work Phone: Estimated GFR (MDRD) Amer 202 mL/min >60 [facility] Work Phone: Comment on above: GFR Calc Estimated GFR (MDRD) Non-Af Amer 167 mL/min >60 [facility] Work Phone: Comment on above: Non- GFR Calc Serum or plasma calcium ana urement (mass/volume)on 06-30-2022 Calcium [Mass/Vol] 7.8 mg/dL 8.5-10.1 [facility] Work Phone: Serum or plasma creatinine m easurement (mass/volume)on 06-30-2022 Creatinine [Mass/Vol] 0.40 mg/dL 0.55-1.02 [facility] Work Phone: Comment on above: The validity of the calculated GFR & GFRAA in patients over 70 years has not been determined. Clinical correlation is essential. Serum or plasma urea nitroge n measurement (mass/volume)on 06-30-2022 Urea nitrogen [Mass/Vol] 10 mg/dL 7-18 [facility] Work Phone: Thin prep Papanicolaou smear with manual screeningon 06-30-2022 Thin prep Papanicolaou smear with manual screening 5 5-15 [facility] Work Phone: Absolute lymphocyte counton 06-29-2022 Lymphocytes Auto (Unsp spec) [#/Vol] 2.41 10*3/uL 0.83-4.51 [facility] Work Phone: Basophil percentageon 2021 Basophil percentage Not Reportable [facility] Work Phone: Neutrophils (Bld) [#/Vol] 7.8 10*3/uL 2.0-7.7 [facility] Work Phone: WBC (Bld) [#/Vol] 12.0 10*3/uL 4.4-11.0 [facility] Work Phone: Blood band neutrophil count as percentage of total leukocytesOrdered By: Dr. Wagner on 06-29-2022 Band form neutrophils/100 WBC (Bld) 2 % 0-5 [facility] Blood eosinophils/100 leukoc ytesOrdered By: Dr. Wagner on 06-29-2022 Eosinophils/100 WBC (Bld) 9 % 0-5 [facility] Blood erythrocytes count (nu mber/volume)on 06-29-2022 RBC (Bld) [#/Vol] 2.73 10*6/uL 4.2-5.4 [facility] Work Phone: Blood hemoglobin measurement (mass/volume)on 06-29-2022 Hemoglobin (Bld) [Mass/Vol] 7.7 g/dL 12.0-15.0 [facility] Work Phone: Blood lymphocytes/100 leukoc ytesOrdered By: Dr. Wagner on 06-29-2022 Lymphocytes/100 WBC (Bld) 20 % 19-41 [facility] Blood metamyelocytes/100 rylan kocytesOrdered By: Dr. Wagner on 06-29-2022 Metamyelocytes/100 WBC (Bld) 9 % 0-1 [facility] Blood monocytes/100 leukocyt esOrdered By: Dr. Wagner on 06-29-2022 Monocytes/100 WBC (Bld) 6 % 0-10 [facility] Blood platelet adequacy dete ction by light microscopyOrdered By: Dr. Wagner on 06-29-2022 Platelets LM Ql (Bld) MKD INC ADEQ [facility] Blood platelet mean volumeon 06-29-2022 Platelet mean volume (Bld) [Entitic vol] 8.6 fL 6.2-12.0 [facility] Work Phone: Blood segmented neutrophils/ [address]: [address] Wagner on 06-29-2022 Segmented neutrophils/100 WBC (Bld) 52 % 47-70 [facility] Determination of erythrocyte mean corpuscular volume (MCV)on 06-29-2022 MCV (RBC) [Entitic vol] 91.6 fL 81-99 [facility] Work Phone: Glucose Glucometer (BldC) [M ass/Vol]on 06-29-2022 Glucose [Mass/Vol] 111 mg/dL 74-106 [facility] Work Phone: Comment on above: MANAGEMENT OF PATIEN T CARE PER NURSING PROTOCOL Hematocrit Auto (Bld) [Volum e fraction]on 06-29-2022 Hematocrit (Bld) [Volume fraction] 25.0 % 37-47 [facility] Work Phone: Laboratory - Hematology and Cell countson 06-29-2022 Erythrocyte distribution width (RBC) [Entitic vol] 63.2 fL 35.1-43.9 [facility] Work Phone: Erythrocyte distribution width (RBC) [Ratio] 19.0 % 11.6-14.6 [facility] Work Phone: MCH (RBC) [Entitic mass] 28.2 pg 27.0-32.0 [facility] Work Phone: Laboratory - Hematology and Cell countsOrdered By: Dr. Wagner on 06-29-2022 Myelocytes/100 WBC (Bld) 2 % 0-0 [facility] MCHC Auto (RBC) [Mass/Vol]on 06-29-2022 MCHC (RBC) [Mass/Vol] 30.8 g/dL 32-36 [facility] Work Phone: Platelets bldon 06-29-2022 Platelets (Bld) [#/Vol] 728 10*3/uL 150-450 [facility] Work Phone: RBC morphologyOrdered By: Dr Abdelrahman Wagner on 06-29-2022 RBC morphology finding Nom (Bld) NORM C+C NORMAL NORM C&C [facility] Review by pathologiston 06-19 Pathologist review Marc (Unsp spec) [Interp] February [facility] Work Phone: Review by pathologistOrdered By: Dr. Wagner on 09-11-2022 Pathologist review Marc (Unsp spec) [Interp] Reviewed [facility] Comment on above: Previous reported re sult: February mason Edited by: RGOJOSE on 06/30/22:1346Leukocytosis with Neutrophilic left shift. Normocytic anemia.Thrombocytosis.Clinical correlation necessary.Basim Jay M.D. 06/30/22 AMENDED REPORT 06/30/22 1346 PATH REV previously reported as: February Total cell countOrdered By: Dr. Wagner on 06-29-2022 Cells counted Molgen (Bld/Tiss) [#] 100 MANUAL DIFF [facility] Basophil percentageon 2021 Basophils/100 WBC (Bld) 0.7 % 0-1 [facility] Work Phone: Eosinophils/100 WBC (Bld) 7.0 % 0-5 [facility] Work Phone: [phone] Chloride [Moles/Vol] 104 mmol/L 98-107 [facility] Work Phone: [phone] Glucose [Mass/Vol] 117 mg/dL 74-106 [facility] Work Phone: [phone] Comment on above: Fasting Glucose resu lt from 100 to 125 mg/dL suggests IMPAIRED HOMEOSTASIS per A.D.A. criteria. Potassium [Moles/Vol] 3.3 mmol/L 3.5-5.1 [facility] Work Phone: [phone] Sodium [Moles/Vol] 136 mmol/L 136-145 [facility] Work Phone: [phone] Blood lymphocytes/100 leukoc yteson 06-28-2022 Lymphocytes/100 WBC (Bld) 12.9 % 19-41 [facility] Work Phone: [phone] Blood manual differential co mment interpretation (narrative result)Ordered By: Dr. Wagner on 06-28-2022 Manual differential comment Marc (Bld) [Interp] SCANNED [facility] Blood monocytes/100 leukocyt eson 06-28-2022 Monocytes/100 WBC (Bld) 8.1 % 0-10 [facility] Work Phone: Laboratory - Chemistry and C hemistry - challengeon 06-28-2022 CO2 [Moles/Vol] 26.0 mmol/L 21.0-32.0 [facility] Work Phone: Urea nitrogen/Creatinine [Mass ratio] 20.1 mg/mg 10-20 [facility] Work Phone: Laboratory - Hematology and Cell countson 06-28-2022 Immature granulocytes/100 WBC (Bld) 3.900 % 0.0-0.9 [facility] Work Phone: Comment on above: IG% - Immature Granu locytes (promyelocytes, myelocytes and metamyelocytes) > 1% indicates that a LEFT SHIFT is Present. Nucleated RBC/100 WBC (Bld) [Ratio] 0 % 0-5 [facility] Work Phone: No Panel Informationon 06-28 Estimated Creatinine Clearance Calc 52.81 ml/min [facility] Work Phone: Estimated GFR (MDRD) Amer 285 mL/min >60 [facility] Work Phone: Comment on above: GFR Calc Estimated GFR (MDRD) Non-Af Amer 235 mL/min >60 [facility] Work Phone: Comment on above: Non- GFR Calc Serum or plasma calcium ana urement (mass/volume)on 06-28-2022 Calcium [Mass/Vol] 7.5 mg/dL 8.5-10.1 [facility] Work Phone: Serum or plasma creatinine m easurement (mass/volume)on 06-28-2022 Creatinine [Mass/Vol] 0.30 mg/dL 0.55-1.02 [facility] Work Phone: Comment on above: The validity of the calculated GFR & GFRAA in patients over 70 years has not been determined. Clinical correlation is essential. Serum or plasma urea nitroge n measurement (mass/volume)on 06-28-2022 Urea nitrogen [Mass/Vol] 6 mg/dL 7-18 [facility] Work Phone: Thin prep Papanicolaou smear with manual screeningon 06-28-2022 Thin prep Papanicolaou smear with manual screening 6 5-15 [facility] Work Phone: Cytology report of Body flui d Cyto stainOrdered By: Dr. Browne on 06-26-2022 Cytology report Cyto stain Doc (Body fld) SEE PATHOLOGY REPORT [facility] Comment on above: Specimen submitted t o Anatomical Pathology Department for testing. Laboratory - Hematology and Cell countsOrdered By: Dr. Wagner on 06-26-2022 Anisocytosis Ql (Bld) 2+ [facility] No Panel InformationOrdered By: Dr. Wagner on 06-26-2022 Atypical Lymphocytes 1+ % [facility] Basophil percentageon 2021 Basophil percentage >100 SEEN /hpf 0-5 [facility] Work Phone: Bilirubin Test strip Ql (U)o n 06-25-2022 Bilirubin Ql (U) Negative Negative [facility] Work Phone: Ketones Test strip Ql (U)on 06-25-2022 Ketones Ql (U) 5 mg/dl Negative [facility] Work Phone: Mucus LM Ql (Urine sed)on Mucus Ql (Urine sed) 0 SEEN /hpf [facility] Work Phone: Nitrite Test strip Ql (U)on 06-25-2022 Nitrite Ql (U) Positive Negative [facility] Work Phone: Protein Test strip Ql (U)on 06-25-2022 Protein Ql (U) 100 mg/dl Negative [facility] Work Phone: Squamous epithelial cells de tection in urine sediment by light microscopyon 06-25-2022 Epithelial cells.squamous LM Ql (Urine sed) 5-10 SEEN /hpf 5-10 [facility] Work Phone: Urine blood detectionon RBC Ql (U) 250 /ul Negative [facility] Work Phone: RBC Ql (U) > 100 SEEN /hpf 0-5 [facility] Work Phone: Urine clarityon 06-25-2022 Clarity (U) Turbid Clear [facility] Work Phone: Urine color determinationon 06-25-2022 Color (U) Red Yellow [facility] Work Phone: Urine glucose detectionon Glucose Ql (U) Normal mg/dl Normal [facility] Work Phone: Urine leukocyte esterase det ection by dipstickon 06-25-2022 Leukocyte esterase Test strip Ql (U) 500 /ul Negative [facility] Work Phone: Urine pHon 06-25-2022 pH (U) 6.5 [pH] 5.0 - 8.0 [facility] Work Phone: Urine sediment bacteria coun t by microscopy (number/high power field)on 06-25-2022 Bacteria LM.HPF (Urine sed) [#/Area] 4 /[HPF] None Seen [facility] Work Phone: [phone] Urine specific gravity measu rementon 06-25-2022 Specific gravity (U) [Rel density] 1.010 1.002-1.03 0 [facility] Work Phone: [phone] Urobilinogen Auto test strip Ql (U)on 06-25-2022 Urobilinogen Ql (U) Normal mg/dl Normal [facility] Work Phone: [phone] Absolute lymphocyte counton 06-18-2022 Lymphocytes Auto (Unsp spec) [#/Vol] 1.20 10*3/uL 0.83-4.51 [facility] Work Phone: Basophil percentageon 2021 Basophil percentage 2.6 mg/dL 2.5-4.9 [facility] Work Phone: [phone] Basophils/100 WBC (Bld) 0.3 % 0-1 [facility] Work Phone: [phone] Bilirubin [Mass/Vol] 0.20 mg/dL 0.20-1.00 [facility] Work Phone: [phone] Comment on above: For patients on eltr ombopag therapy, use of Dimension [place] TBIL is not recommended. Chloride [Moles/Vol] 104 mmol/L 98-107 [facility] Work Phone: Eosinophils/100 WBC (Bld) 4.6 % 0-5 [facility] Work Phone: Glucose [Mass/Vol] 93 mg/dL 74-106 [facility] Work Phone: Neutrophils (Bld) [#/Vol] 6.1 10*3/uL 2.0-7.7 [facility] Work Phone: Neutrophils/100 WBC (Bld) 71.3 % 47-70 [facility] Work Phone: Potassium [Moles/Vol] 4.2 mmol/L 3.5-5.1 [facility] Work Phone: Protein [Mass/Vol] 4.8 g/dL 6.4-8.2 [facility] Work Phone: Sodium [Moles/Vol] 136 mmol/L 136-145 [facility] Work Phone: WBC (Bld) [#/Vol] 8.6 10*3/uL 4.4-11.0 [facility] Work Phone: Blood erythrocytes count (nu mber/volume)on 06-18-2022 RBC (Bld) [#/Vol] 3.05 10*6/uL 4.2-5.4 [facility] Work Phone: Blood hemoglobin measurement (mass/volume)on 06-18-2022 Hemoglobin (Bld) [Mass/Vol] 8.5 g/dL 12.0-15.0 [facility] Work Phone: Blood lymphocytes/100 leukoc yteson 06-18-2022 Lymphocytes/100 WBC (Bld) 13.9 % 19-41 [facility] Work Phone: Blood monocytes/100 leukocyt eson 06-18-2022 Monocytes/100 WBC (Bld) 6.7 % 0-10 [facility] Work Phone: Blood platelet mean volumeon 06-18-2022 Platelet mean volume (Bld) [Entitic vol] 9.3 fL 6.2-12.0 [facility] Work Phone: Determination of erythrocyte mean corpuscular volume (MCV)on 06-18-2022 MCV (RBC) [Entitic vol] 88.5 fL 81-99 [facility] Work Phone: Glucose Glucometer (BldC) [M ass/Vol]on 06-18-2022 Glucose [Mass/Vol] 105 mg/dL 74-106 [facility] Work Phone: Comment on above: MANAGEMENT OF PATIEN T CARE PER NURSING PROTOCOL Hematocrit Auto (Bld) [Volum e fraction]on 06-18-2022 Hematocrit (Bld) [Volume fraction] 27.0 % 37-47 [facility] Work Phone: Laboratory - Chemistry and C hemistry - challengeon 06-18-2022 ALP [Catalytic activity/Vol] 89 U/L 45-117 [facility] Work Phone: ALT [Catalytic activity/Vol] 19 U/L 13-56 [facility] Work Phone: CO2 [Moles/Vol] 26.0 mmol/L 21.0-32.0 [facility] Work Phone: Globulin (S) [Mass/Vol] 3.8 g/dL 2.2-4.2 [facility] Work Phone: Magnesium [Mass/Vol] 2.1 mg/dL 1.6-2.6 [facility] Work [facility]: Urea nitrogen/Creatinine [Mass ratio] 43.7 mg/mg 10-20 [facility] Work Phone: Laboratory - Hematology and Cell countson 06-18-2022 Erythrocyte distribution width (RBC) [Entitic vol] 59.3 fL 35.1-43.9 [facility] Work Phone: Erythrocyte distribution width (RBC) [Ratio] 18.1 % 11.6-14.6 [facility] Work Phone: Immature granulocytes/100 WBC (Bld) 3.200 % 0.0-0.9 [facility] Work Phone: Comment on above: IG% - Immature Granu locytes (promyelocytes, myelocytes and metamyelocytes) > 1% indicates that a LEFT SHIFT is Present. MCH (RBC) [Entitic mass] 27.9 pg 27.0-32.0 [facility] Work Phone: Nucleated RBC/100 WBC (Bld) [Ratio] 0 % 0-5 [facility] Work Phone: MCHC Auto (RBC) [Mass/Vol]on 06-18-2022 MCHC (RBC) [Mass/Vol] 31.5 g/dL 32-36 [facility] Work Phone: No Panel Informationon 06-18 Estimated Creatinine Clearance Calc 52.81 ml/min [facility] Work Phone: Estimated GFR (MDRD) Amer 500 mL/min >60 [facility] Work Phone: Comment on above: GFR Calc Estimated GFR (MDRD) Non-Af Amer 413 mL/min >60 [facility] Work Phone: Comment on above: Non- GFR Calc Platelets bldon 06-18-2022 Platelets (Bld) [#/Vol] 409 10*3/uL 150-450 [facility] Work Phone: Serum or plasma albumin ana urement (mass/volume)on 06-18-2022 Albumin [Mass/Vol] 1.0 g/dL 3.2-5.0 [facility] Work Phone: Serum or plasma albumin/glob ulin mass ratioon 06-18-2022 Albumin/Globulin [Mass ratio] 0.3 {ratio} 0.9-2.4 [facility] Work Phone: Serum or plasma calcium ana urement (mass/volume)on 06-18-2022 Calcium [Mass/Vol] 7.0 mg/dL 8.5-10.1 [facility] Work Phone: Serum or plasma creatinine m easurement (mass/volume)on 06-18-2022 Creatinine [Mass/Vol] 0.18 mg/dL 0.55-1.02 [facility] Work Phone: Comment on above: The validity of the calculated GFR & GFRAA in patients over 70 years has not been determined. Clinical correlation is essential. Serum or plasma urea nitroge n measurement (mass/volume)on 06-18-2022 Urea nitrogen [Mass/Vol] 8 mg/dL 7-18 [facility] Work Phone: Thin prep Papanicolaou smear with manual screeningon 06-18-2022 Thin prep Papanicolaou smear with manual screening 16 U/L 15-37 [facility] Work Phone: Thin prep Papanicolaou smear with manual screening 6 5-15 [facility] Work Phone: Basophil percentageon 2021 Basophil percentage 5-10 SEEN /hpf 0-5 [facility] Work Phone: Bilirubin Test strip Ql (U)o n 06-13-2022 Bilirubin Ql (U) Negative Negative [facility] Work Phone: Ketones Test strip Ql (U)on 06-13-2022 Ketones Ql (U) Negative Negative [facility] Work Phone: Mucus LM Ql (Urine sed)on Mucus Ql (Urine sed) 0 SEEN /hpf [facility] Work Phone: Nitrite Test strip Ql (U)on 06-13-2022 Nitrite Ql (U) Negative Negative [facility] Work Phone: Protein Test strip Ql (U)on 06-13-2022 Protein Ql (U) 15 mg/dl Negative [facility] Work Phone: Squamous epithelial cells de tection in urine sediment by light microscopyon 06-13-2022 Epithelial cells.squamous LM Ql (Urine sed) 0 SEEN /hpf 5-10 [facility] Work Phone: [phone] Urine blood detectionon 05-20 RBC Ql (U) 50 /ul Negative [facility] Work Phone: RBC Ql (U) 0 SEEN /hpf 0-5 [facility] Work Phone: [phone] Urine clarityon 06-13-2022 Clarity (U) Clear Clear [facility] Work Phone: [phone] Urine color determinationon 06-13-2022 Color (U) Yellow Yellow [facility] Work Phone: [phone] Urine glucose detectionon Glucose Ql (U) Normal mg/dl Normal [facility] Work Phone: [phone] Urine leukocyte esterase det ection by dipstickon 06-13-2022 Leukocyte esterase Test strip Ql (U) 25 /ul Negative [facility] Work Phone: [phone] Urine pHon 06-13-2022 pH (U) 6.0 [pH] 5.0 - 8.0 [facility] Work Phone: [phone] Urine sediment bacteria coun t by microscopy (number/high power field)on 06-13-2022 Bacteria LM.HPF (Urine sed) [#/Area] 0 /[HPF] None Seen [facility] Work Phone: Urine sediment yeast count b y microscopy (number/high powered field)on 06-13-2022 Yeast LM.HPF (Urine sed) [#/Area] 1 /[HPF] None Seen [facility] Work Phone: [phone] Urine specific gravity measu rementon 06-13-2022 Specific gravity (U) [Rel density] 1.015 1.002-1.03 0 [facility] Work Phone: [phone] Urobilinogen Auto test strip Ql (U)on 06-13-2022 Urobilinogen Ql (U) Normal mg/dl Normal [facility] Work Phone: [phone] Blood eosinophils/100 leukoc yteson 06-09-2022 Eosinophils/100 WBC (Bld) 11 % 0-5 [facility] Work Phone: Blood lymphocytes/100 leukoc yteson 06-09-2022 Lymphocytes/100 WBC (Bld) 12 % 19-41 [facility] Work Phone: Blood metamyelocytes/100 rylan kocyteson 06-09-2022 Metamyelocytes/100 WBC (Bld) 3 % 0-1 [facility] Work Phone: Blood monocytes/100 leukocyt eson 06-09-2022 Monocytes/100 WBC (Bld) 1 % 0-10 [facility] Work Phone: Blood platelet adequacy dete ction by light microscopyon 06-09-2022 Platelets LM Ql (Bld) ADEQUATE ADEQ [facility] Work Phone: Blood segmented neutrophils/ 100 leukocyteson 06-09-2022 Segmented neutrophils/100 WBC (Bld) 72 % 47-70 [facility] Work Phone: [phone] Laboratory - Hematology and Cell countson 06-09-2022 Anisocytosis Ql (Bld) 2+ [facility] Work Phone: Myelocytes/100 WBC (Bld) 1 % 0-0 [facility] Work Phone: [phone] Review by pathologiston 05-20 Pathologist review Marc (Unsp spec) [Interp] Reviewed [facility] Work Phone: [phone] Comment on above: Previous reported re sult: Misa cuevas Edited by: SUZANNE on 06/10/22:0912Neutrophilic leukocytosis with left shift. Normocytic anemia.Clinical correlation necessary.Basim Jay M.D. 06/10/22 AMENDED REPORT 06/10/22 0912 PATH REV previously reported as: Misa cuevas Total cell counton 2 Cells counted Molgen (Bld/Tiss) [#] 100 MANUAL DIFF [facility] Work Phone: [phone] Blood band neutrophil count as percentage of total leukocyteson 06-08-2022 Band form neutrophils/100 WBC (Bld) 7 % 0-5 [facility] Work Phone: Blood promyelocytes/100 leuk ocyteson 06-08-2022 Promyelocytes/100 WBC (Bld) 1 % 0-0 [facility] Work Phone: No Panel Informationon 06-08 [facility]iscellaneous Test [facility] Work [facility]: Comment on above: TEST RESULT LIMITSHi stoplasma Gal'barrera Ag Ser <0.5 ng/mL < 0.5This test was developed and its performance characteristicsdetermined by [employer]. It has not been cleared or approvedby the U.S. Food and Drug Administration. TESTING PERFORMED AT [facility]. ORIGINAL REPORT ON FILE IN LAB CONTAINS ADDITIONAL TEST SITE INFORMATION. Serum Aspergillus flavus ant ibody detection by immunodiffusionon 06-08-2022 A. flavus Ab Immune diff Ql (S) Negative Neg:<1:1 [facility] Work Phone: Serum Aspergillus fumigatus antibody detection by immunodiffusionon 06-08-2022 A. fumigatus Ab Immune diff Ql (S) Negative Neg:<1:1 [facility] Work Phone: Serum Aspergillus niger anti body detection by immunodiffusionon 06-08-2022 A. niger Ab Immune diff Ql (S) Negative Neg:<1:1 [facility] Work Phone: Comment on above: Performed at: [address] [id number] Director: Georgi Rollins MD, Phone: [phone] Serum beta 2 glycoprotein 1 IgA antibody detectionon 06-08-2022 Beta 2 glycoprotein 1 IgA Ql (S) <9 0-25 [facility] Work Phone: Comment on above: Result Units: GPI Ig A unitsThe reference interval reflects a 3SD or 99th percentileinterval, which is thought to represent a potentiallyclinically significant result in accordance with theInternational Consensus Statement on the classificationcriteria for definitive antiphospholipid syndrome (APS). JThromb Haem 2006;4:295-306. Serum beta 2 glycoprotein 1 IgG antibody detectionon 06-08-2022 Beta 2 glycoprotein 1 IgG Ql (S) <9 0-20 [facility] Work Phone: Comment on above: Result Units: GPI Ig G unitsThe reference interval reflects a 3SD or 99th percentileinterval, which is thought to represent a potentiallyclinically significant result in accordance with theInternational Consensus Statement on the classificationcriteria for definitive antiphospholipid syndrome (APS). JThromb Haem 2006;4:295-306. Serum beta 2 glycoprotein 1 IgM antibody detectionon 06-08-2022 Beta 2 glycoprotein 1 IgM Ql (S) <9 0-32 [facility] Work Phone: Comment on above: Result Units: GPI Ig M unitsThe reference interval reflects a 3SD or 99th percentileinterval, which is thought to represent a potentiallyclinically significant result in accordance with theInternational Consensus Statement on the classificationcriteria for definitive antiphospholipid syndrome (APS). JThromb Haem 2006;4:295-306.Performed at: [address] [id number] Director: Georgi Rollins MD, Phone: [phone] Serum or plasma cortisol isiah surement (mass/volume)on 06-08-2022 Cortisol [Mass/Vol] 45.90 ug/dL 3.44-22.45 [facility] Work Phone: Comment on above: Adult (AM) 5.27 - 22 .45 ug/dL Adult (PM) 3.44 - 16.76 ug/dLPlease note revised CORTISOL reference range effective 2019. INR in Blood by Coagulation assayon 06-07-2022 INR Coag (Bld) [Relative time] 1.2 {INR} [facility] Work Phone: Laboratory - Coagulationon 0 06-07-2022 PT Coag (PPP) [Time] 15.0 s 11.7-14.9 [facility] Work Phone: [phone] RBC morphologyon 06-07-2022 RBC morphology finding Nom (Bld) NORM C+C NORMAL NORM C&C [facility] Work Phone: Absolute lymphocyte counton 06-06-2022 Lymphocytes Auto (Unsp spec) [#/Vol] 1.98 10*3/uL 0.83-4.51 [facility] Work Phone: Assessment of wrist artery p atency prior to arterial punctureon 06-06-2022 Arterial patency Wrist artery --pre arterial puncture Positive [facility] Work Phone: Base excesson 06-06-2022 Base excess Calc (BldV) [Moles/Vol] 0 mmol/L -2-2 [facility] Work Phone: [phone] Basophil percentageon 2021 Basophil percentage 0-5 SEEN /hpf 0-5 [facility] Work Phone: [phone] Basophil percentage 22.4 mmol/L 22-26 [facility] Work Phone: Basophils/100 WBC (Bld) 99 % 95-99 [facility] Work Phone: Basophils/100 WBC (Bld) 0.2 % 0-1 [facility] Work Phone: [phone] Bilirubin [Mass/Vol] 0.40 mg/dL 0.20-1.00 [facility] Work Phone: [phone] Comment on above: For patients on eltr ombopag therapy, use of Dimension [place] TBIL is not recommended. Chloride [Moles/Vol] 86 mmol/L 98-107 [facility] Work Phone: Eosinophils/100 WBC (Bld) 1.1 % 0-5 [facility] Work Phone: [phone] Glucose [Mass/Vol] 200 mg/dL 74-106 [facility] Work Phone: [phone] Comment on above: Glucose result great er than or equal to 200 mg/dLsuggests DIABETES MELLITUS per A.D.A. criteria. Lactate [Moles/Vol] 1.5 mmol/L 0.4-2.0 [facility] Work Phone: [phone] Neutrophils (Bld) [#/Vol] 21.2 10*3/uL 2.0-7.7 [facility] Work Phone: Neutrophils/100 WBC (Bld) 85.3 % 47-70 [facility] Work Phone: Potassium [Moles/Vol] 5.1 mmol/L 3.5-5.1 [facility] Work Phone: [phone] Protein [Mass/Vol] 6.4 g/dL 6.4-8.2 [facility] Work Phone: [phone] Sodium [Moles/Vol] 120 mmol/L 136-145 [facility] Work Phone: [phone] WBC (Bld) [#/Vol] 24.9 10*3/uL 4.4-11.0 [facility] Work Phone: [phone] Bilirubin Test strip Ql (U)o n 06-06-2022 Bilirubin Ql (U) Negative Negative [facility] Work Phone: [phone] Blood erythrocytes count (nu mber/volume)on 06-06-2022 RBC (Bld) [#/Vol] 2.90 10*6/uL 4.2-5.4 [facility] Work Phone: Blood hemoglobin measurement (mass/volume)on 06-06-2022 Hemoglobin (Bld) [Mass/Vol] 6.1 g/dL 12.0-15.0 [facility] Work Phone: Blood lymphocytes/100 leukoc yteson 06-06-2022 Lymphocytes/100 WBC (Bld) 8.0 % 19-41 [facility] Work Phone: [phone] Blood manual differential co mment interpretation (narrative result)on 06-06-2022 Manual differential comment Marc (Bld) [Interp] SCANNED [facility] Work Phone: [phone] Comment on above: NEUTROPHILIA NOTED Blood monocytes/100 leukocyt eson 06-06-2022 Monocytes/100 WBC (Bld) 2.3 % 0-10 [facility] Work Phone: [phone] Blood platelet mean volumeon 06-06-2022 Platelet mean volume (Bld) [Entitic vol] 10.2 fL 6.2-12.0 [facility] Work Phone: [phone] CO2 (BldA) [Partial pressure ]on 06-06-2022 CO2 (Bld) [Partial pressure] 26.3 mm[Hg] 35-45 [facility] Work Phone: [phone] Determination of erythrocyte mean corpuscular volume (MCV)on 06-06-2022 MCV (RBC) [Entitic vol] 88.3 fL 81-99 [facility] Work Phone: [phone] Hematocrit Auto (Bld) [Volum e fraction]on 06-06-2022 Hematocrit (Bld) [Volume fraction] 18.8 % 37-47 [facility] Work Phone: [phone] Ketones Test strip Ql (U)on 06-06-2022 Ketones Ql (U) 5 mg/dl Negative [facility] Work Phone: [phone] Laboratory - Chemistry and C hemistry - challengeon 06-06-2022 ALP [Catalytic activity/Vol] 124 U/L 45-117 [facility] Work Phone: [phone] ALT [Catalytic activity/Vol] 39 U/L 13-56 [facility] Work Phone: [phone] CO2 [Moles/Vol] 24.0 mmol/L 21.0-32.0 [facility] Work Phone: [phone] Globulin (S) [Mass/Vol] 4.6 g/dL 2.2-4.2 [facility] Work Phone: [phone] Urea nitrogen/Creatinine [Mass ratio] 57.8 mg/mg 10-20 [facility] Work Phone: Laboratory - Hematology and Cell countson 06-06-2022 Erythrocyte distribution width (RBC) [Entitic vol] 46.5 fL 35.1-43.9 [facility] Work Phone: Erythrocyte distribution width (RBC) [Ratio] 14.6 % 11.6-14.6 [facility] Work Phone: Immature granulocytes/100 WBC (Bld) 3.100 % 0.0-0.9 [facility] Work Phone: Comment on above: IG% - Immature Granu locytes (promyelocytes, myelocytes and metamyelocytes) > 1% indicates that a LEFT SHIFT is Present. MCH (RBC) [Entitic mass] 29.3 pg 27.0-32.0 [facility] Work Phone: Nucleated RBC/100 WBC (Bld) [Ratio] 0.1 % 0-5 [facility] Work Phone: MCHC Auto (RBC) [Mass/Vol]on 06-06-2022 MCHC (RBC) [Mass/Vol] 33.2 g/dL 32-36 [facility] Work Phone: Mucus LM Ql (Urine sed)on Mucus Ql (Urine sed) 0 SEEN /hpf [facility] Work Phone: Nitrite Test strip Ql (U)on 06-06-2022 Nitrite Ql (U) Negative Negative [facility] Work Phone: No Panel Informationon 06-06 Blood Gas Liter Flow 15.0 /min [facility] Work Phone: Blood Gas Sample Site L Radial [facility] Work Phone: Blood Gas Specimen Type ART [facility] Work Phone: Blood Gas Total CO2 23 mmol/L [facility] Work Phone: Oxygen Delivery Device NRB [facility] Work Phone: Estimated Creatinine Clearance Calc 45.52 ml/min [facility] Work Phone: Estimated GFR (MDRD) Amer 59 mL/min >60 [facility] Work Phone: Comment on above: GFR Calc Estimated GFR (MDRD) Non-Af Amer 49 mL/min >60 [facility] Work Phone: Comment on above: Non- GFR Calc Troponin I High Sensitivity 17 pg/mL 3.0-54.0 [facility] Work Phone: Comment on above: Please Note: [place] t Units and Gender Specific Reference Ranges. For more information see Policy Stat Procedure [place] High Sensitivity Troponin (TNIH) and attachments. Oxygen (BldA) [Partial press ure]on 06-06-2022 Oxygen (Bld) [Partial pressure] 115 mmHG 75-100 [facility] Work Phone: Platelets bldon 06-06-2022 Platelets (Bld) [#/Vol] 490 10*3/uL 150-450 [facility] Work Phone: Protein Test strip Ql (U)on 06-06-2022 Protein Ql (U) 30 mg/dl Negative [facility] Work Phone: Serum or plasma albumin ana urement (mass/volume)on 06-06-2022 Albumin [Mass/Vol] 1.8 g/dL 3.2-5.0 [facility] Work Phone: Serum or plasma albumin/glob ulin mass ratioon 06-06-2022 Albumin/Globulin [Mass ratio] 0.4 {ratio} 0.9-2.4 [facility] Work Phone: Serum or plasma calcium ana urement (mass/volume)on 06-06-2022 Calcium [Mass/Vol] 8.9 mg/dL 8.5-10.1 [facility] Work Phone: Serum or plasma creatinine m easurement (mass/volume)on 06-06-2022 Creatinine [Mass/Vol] 1.16 mg/dL 0.55-1.02 [facility] Work Phone: Comment on above: The validity of the calculated GFR & GFRAA in patients over 70 years has not been determined. Clinical correlation is essential. Serum or plasma urea nitroge n measurement (mass/volume)on 06-06-2022 Urea nitrogen [Mass/Vol] 67 mg/dL 7-18 [facility] Work Phone: Squamous epithelial cells de tection in urine sediment by light microscopyon 06-06-2022 Epithelial cells.squamous LM Ql (Urine sed) 0 SEEN /hpf 5-10 [facility] Work Phone: Thin prep Papanicolaou smear with manual screeningon 06-06-2022 Thin prep Papanicolaou smear with manual screening 33 U/L 15-37 [facility] Work Phone: Thin prep Papanicolaou smear with manual screening 10 5-15 [facility] Work Phone: Urine blood detectionon 05-19 RBC Ql (U) 250 /ul Negative [facility] Work Phone: [phone] RBC Ql (U) 50-100 SEEN /hpf 0-5 [facility] Work Phone: [phone] Urine clarityon 06-06-2022 Clarity (U) Sl. Cloudy Clear [facility] Work Phone: Urine color determinationon 06-06-2022 Color (U) Yellow Yellow [facility] Work Phone: Urine glucose detectionon Glucose Ql (U) 50 mg/dl Normal [facility] Work Phone: Urine leukocyte esterase det ection by dipstickon 06-06-2022 Leukocyte esterase Test strip Ql (U) 25 /ul Negative [facility] Work Phone: Urine pHon 06-06-2022 pH (U) 6.0 [pH] 5.0 - 8.0 [facility] Work Phone: [phone] Urine sediment bacteria coun t by microscopy (number/high power field)on 06-06-2022 Bacteria LM.HPF (Urine sed) [#/Area] RARE /hpf None Seen [facility] Work Phone: Urine specific gravity measu rementon 06-06-2022 Specific gravity (U) [Rel density] 1.010 1.002-1.03 0 [facility] Work Phone: Urobilinogen Auto test strip Ql (U)on 06-06-2022 Urobilinogen Ql (U) Normal mg/dl Normal [facility] Work Phone: pH measurementon 06-06-2022 pH (Unsp spec) 7.54 [pH] 7.35-7.45 [facility] Work Phone: Absolute lymphocyte counton 06-03-2022 Lymphocytes Auto (Unsp spec) [#/Vol] 0.94 10*3/uL 0.83-4.51 [facility] Work Phone: Basophil percentageon 2021 Basophils/100 WBC (Bld) 0.2 % 0-1 [facility] Work Phone: Chloride [Moles/Vol] 86 mmol/L 98-107 [facility] Work Phone: [phone] Eosinophils/100 WBC (Bld) 0.3 % 0-5 [facility] Work Phone: Glucose [Mass/Vol] 217 mg/dL 74-106 [facility] Work Phone: Comment on above: Glucose result great er than or equal to 200 mg/dLsuggests DIABETES MELLITUS per A.D.A. criteria. Lactate [Moles/Vol] 2.1 mmol/L 0.4-2.0 [facility] Work Phone: Comment on above: Critical Result(s) C alled at: 14:54:19 06/03/2022 by: Claudette Balderas. Results read back by same. Neutrophils (Bld) [#/Vol] 22.3 10*3/uL 2.0-7.7 [facility] Work Phone: [phone] Neutrophils/100 WBC (Bld) 92.6 % 47-70 [facility] Work Phone: [phone] Potassium [Moles/Vol] 3.6 mmol/L 3.5-5.1 [facility] Work Phone: [phone] Sodium [Moles/Vol] 125 mmol/L 136-145 [facility] Work Phone: [phone] WBC (Bld) [#/Vol] 24.1 10*3/uL 4.4-11.0 [facility] Work Phone: [phone] Blood erythrocytes count (nu mber/volume)on 06-03-2022 RBC (Bld) [#/Vol] 3.19 10*6/uL 4.2-5.4 [facility] Work Phone: [phone] Blood hemoglobin measurement (mass/volume)on 06-03-2022 Hemoglobin (Bld) [Mass/Vol] 9.5 g/dL 12.0-15.0 [facility] Work Phone: [phone] Blood lymphocytes/100 leukoc yteson 06-03-2022 Lymphocytes/100 WBC (Bld) 3.9 % 19-41 [facility] Work Phone: Blood manual differential co mment interpretation (narrative result)on 06-03-2022 Manual differential comment Marc (Bld) [Interp] COMMENT [facility] Work Phone: Comment on above: NEUTROPHILIA. Blood monocytes/100 leukocyt eson 06-03-2022 Monocytes/100 WBC (Bld) 2.0 % 0-10 [facility] Work Phone: Blood platelet mean volumeon 06-03-2022 Platelet mean volume (Bld) [Entitic vol] 10.7 fL 6.2-12.0 [facility] Work Phone: Determination of erythrocyte mean corpuscular volume (MCV)on 06-03-2022 MCV (RBC) [Entitic vol] 89.3 fL 81-99 [facility] Work Phone: Hematocrit Auto (Bld) [Volum e fraction]on 06-03-2022 Hematocrit (Bld) [Volume fraction] 28.5 % 37-47 [facility] Work Phone: Laboratory - Chemistry and C hemistry - challengeon 06-03-2022 CO2 [Moles/Vol] 27.0 mmol/L 21.0-32.0 [facility] Work Phone: Natriuretic peptide B (Bld) [Mass/Vol] 16.2 pg/mL 0-100 [facility] Work Phone: Urea nitrogen/Creatinine [Mass ratio] 34.9 mg/mg 10-20 [facility] Work Phone: Laboratory - Hematology and Cell countson 06-03-2022 Erythrocyte distribution width (RBC) [Entitic vol] 46.7 fL 35.1-43.9 [facility] Work Phone: Erythrocyte distribution width (RBC) [Ratio] 14.5 % 11.6-14.6 [facility] Work Phone: Immature granulocytes/100 WBC (Bld) 1.000 % 0.0-0.9 [facility] Work Phone: Comment on above: IG% - Immature Granu locytes (promyelocytes, myelocytes and metamyelocytes) > 1% indicates that a LEFT SHIFT is Present. MCH (RBC) [Entitic mass] 29.8 pg 27.0-32.0 [facility] Work Phone: Nucleated RBC/100 WBC (Bld) [Ratio] 0 % 0-5 [facility] Work Phone: MCHC Auto (RBC) [Mass/Vol]on 06-03-2022 MCHC (RBC) [Mass/Vol] 33.3 g/dL 32-36 [facility] Work Phone: No Panel Informationon 06-03 Estimated Creatinine Clearance Calc 57.40 ml/min [facility] Work Phone: Estimated GFR (MDRD) Amer 78 mL/min >60 [facility] Work Phone: Comment on above: GFR Calc Estimated GFR (MDRD) Non-Af Amer 64 mL/min >60 [facility] Work Phone: Comment on above: Non- GFR Calc Troponin I High Sensitivity 10 pg/mL 3.0-54.0 [facility] Work Phone: Comment on above: Please Note: [place] t Units and Gender Specific Reference Ranges. For more information see Policy Stat Procedure [place] High Sensitivity Troponin (TNIH) and attachments. Platelets bldon 06-03-2022 Platelets (Bld) [#/Vol] 462 10*3/uL 150-450 [facility] Work Phone: Serum or plasma calcium ana urement (mass/volume)on 06-03-2022 Calcium [Mass/Vol] 8.3 mg/dL 8.5-10.1 [facility] Work Phone: Serum or plasma creatinine m easurement (mass/volume)on 06-03-2022 Creatinine [Mass/Vol] 0.92 mg/dL 0.55-1.02 [facility] Work Phone: Comment on above: The validity of the calculated GFR & GFRAA in patients over 70 years has not been determined. Clinical correlation is essential. Serum or plasma urea nitroge n measurement (mass/volume)on 06-03-2022 Urea nitrogen [Mass/Vol] 32 mg/dL 7-18 [facility] Work Phone: Thin prep Papanicolaou smear with manual screeningon 06-03-2022 Thin prep Papanicolaou smear with manual screening 12 5-15 [facility] Work Phone: Absolute lymphocyte counton 05-31-2022 Lymphocytes Auto (Unsp spec) [#/Vol] 1.09 10*3/uL 0.83-4.51 [facility] Work Phone: Basophil percentageon 2021 Basophils/100 WBC (Bld) 0.2 % 0-1 [facility] Work Phone: Chloride [Moles/Vol] 91 mmol/L 98-107 [facility] Work Phone: Eosinophils/100 WBC (Bld) 0.1 % 0-5 [facility] Work Phone: Glucose [Mass/Vol] 197 mg/dL 74-106 [facility] Work Phone: Comment on above: Fasting Glucose resu lt greater than or equal to 126 mg/dL suggests DIABETES MELLITUS per A.D.A. criteria. Neutrophils (Bld) [#/Vol] 30.2 10*3/uL 2.0-7.7 [facility] Work Phone: [phone] Neutrophils/100 WBC (Bld) 92.2 % 47-70 [facility] Work Phone: [phone] Potassium [Moles/Vol] 4.0 mmol/L 3.5-5.1 [facility] Work Phone: [phone] Sodium [Moles/Vol] 128 mmol/L 136-145 [facility] Work Phone: [phone] WBC (Bld) [#/Vol] 32.8 10*3/uL 4.4-11.0 [facility] Work Phone: Comment on above: RESULTS CALLED TO Santi SANDY RN PCU 05/31/22 0801 Iman Crowe.REPORT READ BACK BY SAME. Blood erythrocytes count (nu mber/volume)on 05-31-2022 RBC (Bld) [#/Vol] 3.62 10*6/uL 4.2-5.4 [facility] Work Phone: [phone] Blood hemoglobin measurement (mass/volume)on 05-31-2022 Hemoglobin (Bld) [Mass/Vol] 11.0 g/dL 12.0-15.0 [facility] Work Phone: Blood lymphocytes/100 leukoc yteson 05-31-2022 Lymphocytes/100 WBC (Bld) 3.3 % 19-41 [facility] Work Phone: Blood monocytes/100 leukocyt eson 05-31-2022 Monocytes/100 WBC (Bld) 3.3 % 0-10 [facility] Work Phone: [phone] Blood platelet adequacy dete ction by light microscopyon 05-31-2022 Platelets LM Ql (Bld) ADEQUATE ADEQ [facility] Work Phone: Blood platelet mean volumeon 05-31-2022 Platelet mean volume (Bld) [Entitic vol] 10.4 fL 6.2-12.0 [facility] Work Phone: Determination of erythrocyte mean corpuscular volume (MCV)on 05-31-2022 MCV (RBC) [Entitic vol] 90.9 fL 81-99 [facility] Work Phone: Glucose Glucometer (BldC) [M ass/Vol]on 05-31-2022 Glucose [Mass/Vol] 241 mg/dL 74-106 [facility] Work Phone: Comment on above: MANAGEMENT OF PATIEN T CARE PER NURSING PROTOCOL Hematocrit Auto (Bld) [Volum e fraction]on 05-31-2022 Hematocrit (Bld) [Volume fraction] 32.9 % 37-47 [facility] Work Phone: Laboratory - Chemistry and C hemistry - challengeon 05-31-2022 CO2 [Moles/Vol] 30.0 mmol/L 21.0-32.0 [facility] Work Phone: Magnesium [Mass/Vol] 3.0 mg/dL 1.6-2.6 [facility] Work Phone: Urea nitrogen/Creatinine [Mass ratio] 64.8 mg/mg 10-20 [facility] Work Phone: Laboratory - Hematology and Cell countson 05-31-2022 Erythrocyte distribution width (RBC) [Entitic vol] 47.8 fL 35.1-43.9 [facility] Work Phone: Erythrocyte distribution width (RBC) [Ratio] 14.3 % 11.6-14.6 [facility] Work Phone: Immature granulocytes/100 WBC (Bld) 0.900 % 0.0-0.9 [facility] Work Phone: Comment on above: IG% - Immature Granu locytes (promyelocytes, myelocytes and metamyelocytes) > 1% indicates that a LEFT SHIFT is Present. MCH (RBC) [Entitic mass] 30.4 pg 27.0-32.0 [facility] Work Phone: Nucleated RBC/100 WBC (Bld) [Ratio] 0 % 0-5 [facility] Work Phone: MCHC Auto (RBC) [Mass/Vol]on 05-31-2022 MCHC (RBC) [Mass/Vol] 33.4 g/dL 32-36 [facility] Work Phone: No Panel Informationon 05-31 Estimated Creatinine Clearance Calc 50.00 ml/min [facility] Work Phone: Estimated GFR (MDRD) Amer 123 mL/min >60 [facility] Work Phone: Comment on above: GFR Calc Estimated GFR (MDRD) Non-Af Amer 102 mL/min >60 [facility] Work Phone: Comment on above: Non- GFR Calc Platelets bldon 05-31-2022 Platelets (Bld) [#/Vol] 436 10*3/uL 150-450 [facility] Work Phone: RBC morphologyon 05-31-2022 RBC morphology finding Nom (Bld) NORM C+C NORMAL NORM C&C [facility] Work Phone: Review by pathologiston 05-19 Pathologist review Mrac (Unsp spec) [Interp] Reviewed [facility] Work Phone: Comment on above: Previous reported re sult: Misa cuevas Edited by: TANIA on 06/03/22:0717Neutrophilic leukocytosis.Clinical correlation necessary.Basim Jay M.D. 06/02/22 AMENDED REPORT 06/03/22 0717 PATH REV previously reported as: Misa cuevas Serum or plasma calcium ana urement (mass/volume)on 05-31-2022 Calcium [Mass/Vol] 7.8 mg/dL 8.5-10.1 [facility] Work Phone: Serum or plasma creatinine m easurement (mass/volume)on 05-31-2022 Creatinine [Mass/Vol] 0.62 mg/dL 0.55-1.02 [facility] Work Phone: Comment on above: The validity of the calculated GFR & GFRAA in patients over 70 years has not been determined. Clinical correlation is essential. Serum or plasma urea nitroge n measurement (mass/volume)on 05-31-2022 Urea nitrogen [Mass/Vol] 40 mg/dL 7-18 [facility] Work Phone: Thin prep Papanicolaou smear with manual screeningon 05-31-2022 Thin prep Papanicolaou smear with manual screening 7 5-15 [facility] Work Phone: Blood manual differential co mment interpretation (narrative result)on 05-30-2022 Manual differential comment Marc (Bld) [Interp] See comment [facility] Work Phone: Comment on above: NEUTROPHILIA NOTEDLE UKOCYTOSIS NOTED Basophil percentageon 2021 Bilirubin [Mass/Vol] 0.60 mg/dL 0.20-1.00 [facility] Work Phone: Comment on above: For patients on eltr ombopag therapy, use of Dimension [place] TBIL is not recommended. Protein [Mass/Vol] 6.8 g/dL 6.4-8.2 [facility] Work Phone: Laboratory - Chemistry and C hemistry - challengeon 05-29-2022 ALP [Catalytic activity/Vol] 111 U/L 45-117 [facility] Work Phone: ALT [Catalytic activity/Vol] 35 U/L 13-56 [facility] Work Phone: Globulin (S) [Mass/Vol] 4.7 g/dL 2.2-4.2 [facility] Work Phone: Serum or plasma albumin ana urement (mass/volume)on 05-29-2022 Albumin [Mass/Vol] 2.1 g/dL 3.2-5.0 [facility] Work Phone: Serum or plasma albumin/glob ulin mass ratioon 05-29-2022 Albumin/Globulin [Mass ratio] 0.4 {ratio} 0.9-2.4 [facility] Work Phone: Thin prep Papanicolaou smear with manual screeningon 05-29-2022 Thin prep Papanicolaou smear with manual screening 23 U/L 15-37 [facility] Work Phone: [phone] Basophil percentageon 2021 Basophil percentage 3.9 mg/dL 2.5-4.9 [facility] Work Phone: Assessment of wrist artery p atency prior to arterial punctureon 05-24-2022 Arterial patency Wrist artery --pre arterial puncture Positive [facility] Work Phone: Base excesson 05-24-2022 Base excess Calc (BldV) [Moles/Vol] 8 mmol/L -2-2 [facility] Work Phone: Basophil percentageon 2021 Basophil percentage 30.3 mmol/L 22-26 [facility] Work Phone: [phone] Basophils/100 WBC (Bld) 93 % 95-99 [facility] Work Phone: [phone] CO2 (BldA) [Partial pressure ]on 05-24-2022 CO2 (Bld) [Partial pressure] 36.5 mm[Hg] 35-45 [facility] Work Phone: No Panel Informationon 05-24 Blood Gas Clinical Comments AIRVO 40l [facility] Work Phone: Blood Gas Oxygen Percent 45 [facility] Work Phone: Blood Gas Sample Site R BRACHIAL [facility] Work Phone: Blood Gas Specimen Type ART [facility] Work Phone: Blood Gas Total CO2 31 mmol/L [facility] Work Phone: Blood Gas Vent Mode AIRVO [facility] Work Phone: [phone] Oxygen (BldA) [Partial press ure]on 05-24-2022 Oxygen (Bld) [Partial pressure] 58 mmHG 75-100 [facility] Work Phone: pH measurementon 05-24-2022 pH (Unsp spec) 7.53 [pH] 7.35-7.45 [facility] Work Phone: Direct bilirubinon Bilirubin.direct [Mass/Vol] 0.15 mg/dL 0.00-0.30 [facility] Work Phone: Basophil percentageon 2021 Cholesterol [Mass/Vol] 58 mg/dL <200 [facility] Work Phone: Comment on above: <200 mg/dL Desirable 200-240 mg/dL Borderline >240 mg/dL High Risk Triglyceride [Mass/Vol] 98 mg/dL <199 [facility] Work Phone: Comment on above: The drugs N-Acetylcy steine and Metamizole may falsely depress this assay.Serum Triglycerides Reference Interval Normal <150 mg/dL Borderline high 150 - 199 mg/dL High 200 - 499 mg/dL Very High > or = 500 mg/dL Laboratory - Chemistry and C hemistry - challengeon 05-19-2022 Free T4 [Mass/Vol] 1.58 ng/dL 0.76-1.46 [facility] Work Phone: No Panel Informationon 05-19 Oxygen Delivery Device HFNC [facility] Work Phone: Thyroid Stimulating Hormone (TSH) 0.22 uIU/mL 0.358-3.74 [facility] Work Phone: Serum or plasma cholesterol in HDL measurement (mass/volume)on 05-19-2022 Cholesterol in HDL [Mass/Vol] 11 mg/dL >40 [facility] Work Phone: Comment on above: The drugs N-Acetylcy steine and Metamizole may falsely depress this assay. Reference Range HDL <40 mg/dL Low HDL Cholesterol HDL >or= 60 mg/dL High HDL Cholesterol Serum or plasma cholesterol in VLDL measurement (mass/volume)on 05-19-2022 Cholesterol in VLDL [Mass/Vol] 20 mg/dL 5-40 [facility] Work Phone: Serum or plasma low density lipoprotein (LDL) cholesterol measurement (mass/volume)on 05-19-2022 Cholesterol in LDL [Mass/Vol] 27 mg/dL 0-130 [facility] Work Phone: Whole blood hemoglobin A1c/t otal hemoglobin ratio (mass fraction)on 05-19-2022 HbA1c (Bld) [Mass fraction] 5.9 % 3.8-5.6 [facility] Work Phone: Comment on above: Normal < 5.7 % Predi abetic 5.7 - 6.4 % Diabetic >or= 6.5 % Please note range changes. Absolute lymphocyte counton 05-18-2022 Lymphocytes Auto (Unsp spec) [#/Vol] 0.48 10*3/uL 0.83-4.51 [facility] Work Phone: Activated partial thrombopla stin time (aPTT) in platelet poor plasma by coagulation aon 05-18-2022 aPTT Coag (PPP) [Time] 28.9 s 24.1-36.2 [facility] Work Phone: Basophil percentageon 2021 Lactate [Moles/Vol] 1.6 mmol/L 0.4-2.0 [facility] Work Phone: [phone] Basophils/100 WBC (Bld) 0.3 % 0-1 [facility] Work Phone: [phone] Chloride [Moles/Vol] 87 mmol/L 98-[address] [facility] Work Phone: Eosinophils/100 WBC (Bld) 0.2 % 0-5 [facility] Work Phone: Glucose [Mass/Vol] 176 mg/dL 74-106 [facility] Work Phone: Comment on above: Fasting Glucose resu lt greater than or equal to 126 mg/dL suggests DIABETES MELLITUS per A.D.A. criteria. Neutrophils (Bld) [#/Vol] 20.4 10*3/uL 2.0-7.7 [facility] Work Phone: [phone] Neutrophils/100 WBC (Bld) 93.0 % 47-70 [facility] Work Phone: [phone] Potassium [Moles/Vol] 2.8 mmol/L 3.5-5.1 [facility] Work Phone: [phone] Sodium [Moles/Vol] 123 mmol/L 136-145 [facility] Work Phone: [phone] WBC (Bld) [#/Vol] 21.9 10*3/uL 4.4-11.0 [facility] Work Phone: [phone] Blood erythrocytes count (nu mber/volume)on 05-18-2022 RBC (Bld) [#/Vol] 4.26 10*6/uL 4.2-5.4 [facility] Work Phone: [phone] Blood hemoglobin measurement (mass/volume)on 05-18-2022 Hemoglobin (Bld) [Mass/Vol] 12.7 g/dL 12.0-15.0 [facility] Work Phone: [phone] Blood lymphocytes/100 leukoc yteson 05-18-2022 Lymphocytes/100 WBC (Bld) 2.2 % 19-41 [facility] Work Phone: [phone] Blood manual differential co mment interpretation (narrative result)on 05-18-2022 Manual differential comment Marc (Bld) [Interp] SEE COMMENT [facility] Work Phone: Comment on above: NEUTROPHILIA NOTED L YMPHOPENIA NOTED Blood monocytes/100 leukocyt eson 05-18-2022 Monocytes/100 WBC (Bld) 2.4 % 0-10 [facility] Work Phone: [phone] Blood platelet adequacy dete ction by light microscopyon 05-18-2022 Platelets LM Ql (Bld) MOD INC ADEQ [facility] Work Phone: [phone] Blood platelet mean volumeon 05-18-2022 Platelet mean volume (Bld) [Entitic vol] 9.7 fL 6.2-12.0 [facility] Work Phone: Determination of erythrocyte mean corpuscular volume (MCV)on 05-18-2022 MCV (RBC) [Entitic vol] 87.6 fL 81-99 [facility] Work Phone: Fibrinogen measurement in pl atelet poor plasma by derived coagulation (mass/volume)on 05-18-2022 Fibrinogen Coagulation.derived (PPP) [Mass/Vol] > 900 mg/dl 203-444 [facility] Work Phone: Glucose Glucometer (BldC) [M ass/Vol]on 05-18-2022 Glucose [Mass/Vol] 179 mg/dL 74-106 [facility] Work Phone: Comment on above: MANAGEMENT OF PATIEN T CARE PER NURSING PROTOCOL Hematocrit Auto (Bld) [Volum e fraction]on 05-18-2022 Hematocrit (Bld) [Volume fraction] 37.3 % 37-47 [facility] Work Phone: INR in Blood by Coagulation assayon 05-18-2022 INR Coag (Bld) [Relative time] 1.1 {INR} [facility] Work Phone: Laboratory - Chemistry and C hemistry - challengeon 05-18-2022 CK [Catalytic activity/Vol] 147 U/L 26-192 [facility] Work Phone: Natriuretic peptide B (Bld) [Mass/Vol] 232.4 pg/mL 0-100 [facility] Work Phone: CO2 [Moles/Vol] 21.0 mmol/L 21.0-32.0 [facility] Work Phone: Urea nitrogen/Creatinine [Mass ratio] 25.6 mg/mg 10-20 [facility] Work Phone: Laboratory - Coagulationon 0 05-18-2022 PT Coag (PPP) [Time] 13.7 s 11.7-14.9 [facility] Work Phone: Laboratory - Hematology and Cell countson 05-18-2022 Anisocytosis Ql (Bld) RARE [facility] Work Phone: Erythrocyte distribution width (RBC) [Entitic vol] 44.8 fL 35.1-43.9 [facility] Work Phone: Erythrocyte distribution width (RBC) [Ratio] 14.0 % 11.6-14.6 [facility] Work Phone: Immature granulocytes/100 WBC (Bld) 1.900 % 0.0-0.9 [facility] Work Phone: Comment on above: IG% - Immature Granu locytes (promyelocytes, myelocytes and metamyelocytes) > 1% indicates that a LEFT SHIFT is Present. MCH (RBC) [Entitic mass] 29.8 pg 27.0-32.0 [facility] Work Phone: Nucleated RBC/100 WBC (Bld) [Ratio] 0 % 0-5 [facility] Work Phone: Laboratory - Microbiology an d Antimicrobial susceptibilityon 05-18-2022 SARS-CoV-2 (COVID-19) RNA BHANU+probe Ql (Unsp spec) Detected Not Detect [facility] Work Phone: Comment on above: CRITICAL VALUE VERIF IED. CALLED TO Artemio YANG RN (PCU)05/19/22 0332 Luis Fraser.RESULTS READ BACK BY SAME . Normal Reference Range: Not DetectedMethod:(RT-PCR) real-time reverse transcriptase PCRLuminex ARMANDO Instrument*The Food and Drug Administration (FDA) has issued an Emergency Use Authorization (EAU) for the ARMANDO SARS-CoV-2 Assay for the rapid detection of the virus that causes COVID-19. This test has been validated, but the FDAs independent review of this validation is pending.*Negative results do not preclude infection and should not be used as the sole basis for treatment or patient management. Optimum specimen types and timing for peak viral levels during infections caused by SARS-CoV-2 have not been determined. Collection of multiple specimens from the same patient may be necessary to detect the virus. The possibility of a false negative result should be considered if the patient has clinical presentation or has had recent exposure. MCHC Auto (RBC) [Mass/Vol]on 05-18-2022 MCHC (RBC) [Mass/Vol] 34.0 g/dL 32-36 [facility] Work Phone: No Panel Informationon 05-18 Troponin I High Sensitivity 40 pg/mL 3.0-54.0 [facility] Work Phone: Comment on above: Please Note: [place] Units and Gender Specific Reference Ranges. For more information see Policy Stat Procedure [place] High Sensitivity Troponin (TNIH) and attachments. D-Dimer Quantitative (PE/DVT) 3.41 FEU/ug/m 0.27-0.49 [facility] Work Phone: Comment on above: CRITICAL VALUE VERIF IED. CALLED TO JEAN-PAUL DAILY RN [id number] Aniket Saenz.RESULTS READ BACK BY SAME . D-Dimer ELEVATED (>0.49): Additional studies and clinicalassessments are indicated to conclude diagnosis of:Deep Vein Thrombosis (DVT) or Pulmonary Embolism (PE) Estimated Creatinine Clearance Calc 54.71 ml/min [facility] Work Phone: Estimated GFR (MDRD) Amer 99 mL/min >60 [facility] Work Phone: Comment on above: GFR Calc Estimated GFR (MDRD) Non-Af Amer 82 mL/min >60 [facility] Work Phone: Comment on above: Non- GFR Calc Thyroid Stimulating Hormone (TSH) 0.35 uIU/mL 0.358-3.74 [facility] Work Phone: Troponin I High Sensitivity 57 pg/mL 3.0-54.0 [facility] Work Phone: Comment on above: Please Note: [place] t Units and Gender Specific Reference Ranges. For more information see Policy Stat Procedure [place] High Sensitivity Troponin (TNIH) and attachments. Platelets bldon 05-18-2022 Platelets (Bld) [#/Vol] 559 10*3/uL 150-450 [facility] Work Phone: RBC morphologyon 05-18-2022 RBC morphology finding Nom (Bld) N CHROM NORMAL NORM C&C [facility] Work Phone: Serum or plasma C reactive p rotein measurement (mass/volume)on 05-18-2022 CRP [Mass/Vol] 433.00 mg/L 0.0-3.0 [facility] Work Phone: Comment on above: C-Reactive Protein ( CRP) provides useful information for thediagnosis, therapy and monitoring of inflammatory processesand associated diseases. For the evaluation of Relative Riskfor Cardiovascular Disease, a High Sensitivity CRP (HSCRP)should be ordered. Serum or plasma calcium ana urement (mass/volume)on 05-18-2022 Calcium [Mass/Vol] 8.7 mg/dL 8.5-10.1 [facility] Work Phone: Serum or plasma creatinine m easurement (mass/volume)on 05-18-2022 Creatinine [Mass/Vol] 0.74 mg/dL 0.55-1.02 [facility] Work Phone: Comment on above: The validity of the calculated GFR & GFRAA in patients over 70 years has not been determined. Clinical correlation is essential. Serum or plasma urea nitroge n measurement (mass/volume)on 05-18-2022 Urea nitrogen [Mass/Vol] 19 mg/dL 7-18 [facility] Work Phone: Serum procalcitonin measurem enton 05-18-2022 Procalcitonin [Mass/Vol] 6.79 ng/mL 0.00-0.09 [facility] Work Phone: Comment on above: A procalcitonin (PCT ) level above 2.0 ng/mL on the first day of ICU admission is associated with a high risk for progression to severe sepsis and/or septic shock. A PCT level below 0.5 ng/mL on the first day of ICU admission is associated with a low risk for progression to severe and/or septic shock. Note: Concentrations <0.5 ng/mL do not exclude an infection on account of localized infections (without systemic signs) which can be associated with such low concentrations, or a systemic infection in its initial stages (<6 hours). Furthermore, increased procalcitonin can occur without infection. PCT concentrations between 0.5 and 2.0 ng/mL should be interpreted taking into account the patient's history. It is recommended to retest PCT within 6-24 hours if any concentrations <2 ng/mL are obtained. Thin prep Papanicolaou smear with manual screeningon 05-18-2022 Thin prep Papanicolaou smear with manual screening 380 U/L 84-246 [facility] Work Phone: Comment on above: Slight Hemolysis, Re sult may be falsely increased. Thin prep Papanicolaou smear with manual screening 15 5-15 [facility] Work Phone: Bronchoalveolar lavage cultu re with Gram stain Respiratory Culture Aspirgillus fumigatus [facility] Work Phone: COVID-19 virus antigen assay SARS-CoV-2 (COVID-19) Ag IA.rapid Ql (Resp) [facility] Work Phone: Culture, urine Bacteria identified Cx Nom (U) Enterobacter aerogenes [facility] Work Phone: Bacteria identified Cx Nom (U) Klebsiella pneumoniae sp pneum [facility] Work Phone: Fungus culture and stain Fungal Culture Shalini albicans [facility] Work Phone: Fungal Culture Aspirgillus fumigatus [facility] Work Phone: Gram stain for investigation of transfusion reaction Microscopic observation Gram stain Nom (Unsp spec) [facility] Work Phone: Laboratory - Microbiology an d Antimicrobial susceptibility Bacteria identified Cx Nom (Bld) No growth in 5 days. [facility] Work Phone: Bacteria identified Cx Nom (Bld) NO GROWTH IN 14 DAYS [facility] Work Phone: No Panel Information Streptococcus pneumoniae Antigen (M [facility] Work Phone: Vital Signs Date Time Vital Sign Value Performing Clinician Facility 06-16-2025 11:23-0400 Body height 172.[address] Misael Molina MD Work Phone: [facility] 06-16-2025 11:23-0400 Body mass index (BMI) [Ratio] 22.6 kg/m2 Dr. Misael Molina MD Work Phone: [facility] 06-16-2025 11:23-0400 Body weight 67.[address] Misael Molina MD Work Phone: [facility] 06-16-2025 11:23-0400 Diastolic blood pressure 71 mm[Hg] Dr. Misael Molina MD Work Phone: [phone])263-620351 [place] [address] 06-16-2025 11:23-0400 Heart rate 84 /min Dr. Misael Molina MD Work Phone: 4([phone])493-186351 [place] [address] 06-16-2025 11:23-0400 Respiratory rate 18 /min Dr. Misael Molina MD Work Phone: 1(452)663-753759 [address] 06-16-2025 11:23-0400 SaO2% (BldA) [Mass fraction] 92 % Dr. Misael Molina MD Work Phone: 9([phone])937-217551 [place] [address] 06-16-2025 11:23-0400 Systolic blood pressure 108 mm[Hg] Dr. Misael Molina MD Work Phone: [facility] 11-24-2024 07:45-0500 Body temperature 97 [degF] Dr. Misael Molina MD Work Phone: [facility] 11-24-2024 07:45-0500 Diastolic blood pressure 79 mm[Hg] Dr. Misael Molina MD Work Phone: [facility] 11-24-2024 07:45-0500 Heart rate 65 /min Dr. Misael Molina MD Work Phone: [facility] 11-24-2024 07:45-0500 Respiratory rate 16 /min Dr. Misael Molina MD Work Phone: [facility] 11-24-2024 07:45-0500 SaO2% (BldA) [Mass fraction] 96 % Dr. Misael Molina MD Work Phone: [facility] 11-24-2024 07:45-0500 Systolic blood pressure 114 mm[Hg] Dr. Misael Molina MD Work Phone: [facility] 11-24-2024 06:02-0500 Body height 172.[address] Misael Molina MD Work Phone: [phone])[phone] [place] [address] 11-24-2024 06:02-0500 Body mass index (BMI) [Ratio] 23.1 kg/m2 Dr. Misael Molina MD Work Phone: 7(739)245-484951 [place] [address] 11-24-2024 06:02-0500 Body weight [address] Misael Molina MD Work Phone: 1(052)726-483199 [place] [address] 06-24-2023 13:08-0400 Body height 172.[address] Misael Molina Work Phone: 1(430)319-383299 [place] [address] 06-24-2023 13:08-0400 Body mass index (BMI) [Ratio] 25.9 kg/m2 Dr. Misael Molina Work Phone: 7(365)324-869099 [place] [address] 06-24-2023 13:08-0400 Body weight 77.[address] Misael Molina Work Phone: 2(032)001-504599 [place] [address] 06-24-2023 13:08-0400 Diastolic blood pressure 74 mm[Hg] Dr. Misael Molina Work Phone: 5(724)580-440899 [place] [address] 06-24-2023 13:08-0400 Heart rate 76 /min Dr. Misael Molina Work Phone: 9(434)857-984399 [place] [address] 06-24-2023 13:08-0400 Respiratory rate 18 /min Dr. Misael Molina Work Phone: [phone])149-868451 [place] [address] 06-24-2023 13:08-0400 SaO2% (BldA) [Mass fraction] 92 % Dr. Misael Molina Work Phone: 0(765)[phone] [place] [address] 06-24-2023 13:08-0400 Systolic blood pressure 114 mm[Hg] Dr. Misael Molina Work Phone: [phone])[phone] [place] [address] 01-27-2023 07:18-0400 Body temperature 98.8 [degF] Dr. Misael Molina Work Phone: 6(321)706-403499 [place] [address] 01-27-2023 07:18-0400 Diastolic blood pressure 63 mm[Hg] Dr. Misael Molina Work Phone: [facility] [facility] 01-27-2023 07:18-0400 Heart rate 70 /min Dr. Misael Molina Work Phone: [facility] 01-27-2023 07:18-0400 Respiratory rate 16 /min Dr. Misael Molina Work Phone: 2(277)441-959351 [place] [address] 01-27-2023 07:18-0400 SaO2% (BldA) [Mass fraction] 99 % Dr. Misael Molina Work Phone: 6(662)513-058351 [place] [address] 01-27-2023 07:18-0400 Systolic blood pressure 137 mm[Hg] Dr. Misael Molina Work Phone: 7(454)495-247451 [place] [address] 01-27-2023 05:53-0400 Body height 172.[address] Misael Molina Work Phone: 7(956)152-358251 [place] [address] 01-27-2023 05:53-0400 Body mass index (BMI) [Ratio] 23.4 kg/m2 Dr. Misael Molina Work Phone: 6(710)954-656499 [place] [address] 01-27-2023 05:53-0400 Body weight 69.[address] Misael Molina Work Phone: 1(643)626-662451 [place] [address] 12-24-2022 14:40-0500 Body height 172.[address] Misael Molina Work Phone: [facility] 12-24-2022 14:40-0500 Body mass index (BMI) [Ratio] 23.4 kg/m2 Dr. Misael Molina Work Phone: 9(871)676-036751 [place] [address] 12-24-2022 14:40-0500 Body weight 69.[address] Misael Molina Work Phone: [facility] 12-24-2022 14:40-0500 Diastolic blood pressure 78 mm[Hg] Dr. Misael Molina Work Phone: [facility] 03-08-2023 14:40-0500 Heart rate 68 /min Dr. Misael Molina Work Phone: [facility] 12-24-2022 14:40-0500 Respiratory rate 16 /min Dr. Misael Molina Work Phone: [facility] 12-24-2022 14:40-0500 SaO2% (BldA) [Mass fraction] 97 % Dr. Misael Molina Work Phone: [facility] 12-24-2022 14:40-0500 Systolic blood pressure 136 mm[Hg] Dr. Misael Molina Work Phone: [facility] 11-11-2022 08:00-0500 Body height 172.[address] Misael Molina Work Phone: 1(910)822-283359 [address] 11-11-2022 08:00-0500 Body weight 62.[address] Misael Molina Work Phone: [facility] 11-10-2022 09:28-0500 Body mass index (BMI) [Ratio] 20.9 kg/m2 Dr. Misael Molina Work Phone: [facility] 09-25-2022 14:10-0500 Body height 172.[address] Misael Molina Work Phone: [facility] Work Phone: 09-25-2022 14:10-0500 Body mass index (BMI) [Ratio] 20.9 kg/m2 Dr. Misael Molina Work Phone: [facility] 09-25-2022 14:10-0500 Body weight 62.[address] Misael Molina Work Phone: [facility] 09-25-2022 14:10-0500 Diastolic blood pressure 72 mm[Hg] Dr. Misael Molina Work Phone: [facility] 09-25-2022 14:10-0500 Heart rate 64 /min Dr. Misael Molina Work Phone: [facility] 09-25-2022 14:10-0500 Respiratory rate 18 /min Dr. Misael Molina Work Phone: [facility] 09-25-2022 14:10-0500 Systolic blood pressure 122 mm[Hg] Dr. Misael Molina Work Phone: [facility] 08-06-2022 12:30-0400 Body temperature 97.6 [degF] Dr. Misael Molina Work Phone: [facility] 08-06-2022 12:30-0400 Diastolic blood pressure 72 mm[Hg] Dr. Misael Molina Work Phone: [facility] 08-06-2022 12:30-0400 Heart rate 80 /min Dr. Misael Molina Work Phone: [facility] 08-06-2022 12:30-0400 Respiratory rate 18 /min Dr. Misael Molina Work Phone: [facility] 08-06-2022 12:30-0400 SaO2% (BldA) [Mass fraction] 96 % Dr. Misael Molina Work Phone: [facility] 08-06-2022 12:30-0400 Systolic blood pressure 124 mm[Hg] Dr. Misael Molina Work Phone: [facility] 08-06-2022 10:00-0400 Heart rate 103 /min Dr. Misael Molina Work Phone: [facility] Work Phone: 08-06-2022 10:00-0400 SaO2% (BldA) [Mass fraction] 95 % Dr. Misael Molina Work Phone: [facility] Work Phone: 08-06-2022 08:04-0400 Diastolic blood pressure 71 mm[Hg] Dr. Misael Molina Work Phone: [facility] Work Phone: 08-06-2022 08:04-0400 Systolic blood pressure 122 mm[Hg] Dr. Misael Molina Work Phone: [facility] Work Phone: 08-06-2022 07:35-0400 Respiratory rate 18 /min Dr. Misael Molina Work Phone: [facility] Work Phone: 08-05-2022 12:50-0400 Body temperature 98.3 [degF] Dr. Misael Molina Work Phone: [facility] Work Phone: 08-05-2022 11:24-0400 Body weight 58.[address] Misael Molina Work Phone: [facility] 08-01-2022 23:32-0400 Inhaled oxygen concentration 21 % Dr. Misael Molina Work Phone: [facility] 07-31-2022 22:00-0400 Inhaled oxygen flow rate 2 L/min Dr. Misael Molina Work Phone: [facility] 07-30-2022 17:24-0400 Body height 172.[address] Misael Molina Work Phone: [facility] Work Phone: 07-02-2022 12:38-0400 Diastolic blood pressure 70 mm[Hg] Dr. Misael Molina Work Phone: [facility] Work Phone: 07-02-2022 12:38-0400 Heart rate 72 /min Dr. Misael Molina Work Phone: [facility] Work Phone: 07-02-2022 12:38-0400 Systolic blood pressure 114 mm[Hg] Dr. Misael Molina Work Phone: [facility] Work Phone: 07-02-2022 07:30-0400 Inhaled oxygen flow rate 2 L/min Dr. Misael Molina Work Phone: [facility] Work Phone: 07-02-2022 07:30-0400 Respiratory rate 21 /min Dr. Misael Molina Work Phone: [facility] Work Phone: 07-01-2022 14:03-0400 Body temperature 97 [degF] Dr. Misael Molina Work Phone: [facility] Work Phone: 07-01-2022 14:03-0400 SaO2% (BldA) [Mass fraction] 95 % Dr. Misael Molina Work Phone: [facility] Work Phone: 07-01-2022 14:02-0400 Body weight 62.[address] Misael Molina Work Phone: [facility] Work Phone: 06-29-2022 15:48-0400 Body temperature 98.7 [degF] Dr. Misael Molina Work Phone: [facility] Work Phone: 06-29-2022 15:48-0400 Diastolic blood pressure 61 mm[Hg] Dr. Misael Molina Work Phone: [facility] Work Phone: 06-29-2022 15:48-0400 Heart rate 75 /min Dr. Misael Molina Work Phone: [facility] Work Phone: 06-29-2022 15:48-0400 Inhaled oxygen flow rate 2 L/min Dr. Misael Molina Work Phone: [facility] Work Phone: 06-29-2022 15:48-0400 Respiratory rate 14 /min Dr. Misael Molina Work Phone: [facility] Work Phone: 06-29-2022 15:48-0400 SaO2% (BldA) [Mass fraction] 96 % Dr. Misael Molina Work Phone: [facility] Work Phone: 06-29-2022 15:48-0400 Systolic blood pressure 114 mm[Hg] Dr. Misael Molina Work Phone: [facility] Work Phone: 06-29-2022 11:58-0400 Diastolic blood pressure 61 mm[Hg] Dr. Misael Molina Work Phone: [facility] Work Phone: 06-29-2022 11:58-0400 Heart rate 72 /min Dr. Misael Molina Work Phone: [facility] Work Phone: 06-29-2022 11:58-0400 Systolic blood pressure 114 mm[Hg] Dr. Misael Molina Work Phone: [facility] Work Phone: 06-29-2022 07:05-0400 Inhaled oxygen flow rate 2 L/min Dr. Misael Molina Work Phone: [facility] Work Phone: 06-29-2022 07:05-0400 Respiratory rate 16 /min Dr. Misael Molina Work Phone: [facility] Work Phone: 06-29-2022 07:05-0400 SaO2% (BldA) [Mass fraction] 91 % Dr. Misael Molina Work Phone: [facility] Work Phone: 06-28-2022 14:31-0400 Body temperature 96.4 [degF] Dr. Misael Molina Work Phone: [facility] Work Phone: 06-25-2022 14:32-0400 Body height 172.[address] Misael Molina Work Phone: [facility] Work Phone: 06-25-2022 14:32-0400 Body weight 65.[address] Misael Molina Work Phone: [facility] Work Phone: 06-18-2022 14:06-0400 Body mass index (BMI) [Ratio] 22.3 kg/m2 Dr. Misael Molina Work Phone: [facility] 06-18-2022 12:55-0400 Body temperature 97 [degF] Dr. Misael Molina Work Phone: [facility] Work Phone: 06-18-2022 12:55-0400 Diastolic blood pressure 46 mm[Hg] Dr. Misael Molina Work Phone: [facility] Work Phone: 06-18-2022 12:55-0400 Heart rate 75 /min Dr. Misael Molina Work Phone: [facility] Work Phone: 06-18-2022 12:55-0400 Inhaled oxygen flow rate 2 L/min Dr. Misael Molina Work Phone: [facility] Work Phone: 06-18-2022 12:55-0400 Respiratory rate 16 /min Dr. Misael Molina Work Phone: [facility] Work Phone: 06-18-2022 12:55-0400 SaO2% (BldA) [Mass fraction] 97 % Dr. Misael Molina Work Phone: [facility] Work Phone: 06-18-2022 12:55-0400 Systolic blood pressure 96 mm[Hg] Dr. Misael Molina Work Phone: [facility] Work Phone: 06-18-2022 06:00-0400 Body weight 77.[address] Misael Molina Work Phone: [facility] Work Phone: 06-16-2022 15:12-0400 Body height [address] Misael Molina Work Phone: [facility] Work Phone: 06-15-2022 04:00-0400 Inhaled oxygen concentration 93 % Dr. Misael Molina Work Phone: [facility] Work Phone: 06-11-2022 10:43-0400 Body mass index (BMI) [Ratio] 21.9 kg/m2 Dr. Misael Molina Work Phone: [facility] Work Phone: 06-06-2022 20:00-0400 Body temperature 97.8 [degF] Dr. Misael Molina Work Phone: [facility] Work Phone: 06-06-2022 20:00-0400 Diastolic blood pressure 57 mm[Hg] Dr. Misael Molina Work Phone: [facility] Work Phone: 06-06-2022 20:00-0400 Heart rate 100 /min Dr. Misael Molina Work Phone: [facility] Work Phone: 06-06-2022 20:00-0400 Inhaled oxygen flow rate 2 L/min Dr. Misael Molina Work Phone: [facility] Work Phone: 06-06-2022 20:00-0400 Respiratory rate 17 /min Dr. Misael Molina Work Phone: [facility] Work Phone: 06-06-2022 20:00-0400 SaO2% (BldA) [Mass fraction] 96 % Dr. Misael Molina Work Phone: [facility] Work Phone: 06-06-2022 20:00-0400 Systolic blood pressure 87 mm[Hg] Dr. Misael Molina Work Phone: [facility] Work Phone: 06-06-2022 14:12-0400 Body height [address] Misael Molina Work Phone: [facility] Work Phone: 06-06-2022 14:12-0400 Body mass index (BMI) [Ratio] 22.2 kg/m2 Dr. Misael Molina Work Phone: [facility] Work Phone: 06-06-2022 14:12-0400 Body weight 66.[address] Misael Molina Work Phone: [facility] Work Phone: 06-03-2022 16:08-0400 Diastolic blood pressure 72 mm[Hg] Dr. Misael Molina Work Phone: [facility] Work Phone: 06-03-2022 16:08-0400 Systolic blood pressure 93 mm[Hg] Dr. Misael Molina Work Phone: [facility] Work Phone: 06-03-2022 16:06-0400 Heart rate 95 /min Dr. Misael Molina Work Phone: [facility] Work Phone: 06-03-2022 16:06-0400 SaO2% (BldA) [Mass fraction] 94 % Dr. Misael Molina Work Phone: [facility] Work Phone: 06-03-2022 15:00-0400 Body temperature 97.6 [degF] Dr. Misael Molina Work Phone: [facility] Work Phone: 06-03-2022 15:00-0400 Inhaled oxygen flow rate 4 L/min Dr. Misael Molina Work Phone: [facility] Work Phone: 06-03-2022 15:00-0400 Respiratory rate 25 /min Dr. Misael Molina Work Phone: [facility] Work Phone: 06-03-2022 12:44-0400 Body mass index (BMI) [Ratio] 21.5 kg/m2 Dr. Misael Molina Work Phone: [facility] Work Phone: 06-03-2022 12:44-0400 Body weight 64.[address] Misael Molina Work Phone: [facility] Work Phone: 05-31-2022 20:02-0400 Inhaled oxygen flow rate 4 L/min Dr. Misael Molina Work Phone: [facility] Work Phone: 05-31-2022 19:53-0400 Heart rate 76 /min Dr. Misael Molina Work Phone: [facility] Work Phone: 05-31-2022 19:41-0400 Body temperature 95.7 [degF] Dr. Misael Molina Work Phone: [facility] Work Phone: 05-31-2022 19:41-0400 Diastolic blood pressure 61 mm[Hg] Dr. Misael Molina Work Phone: [facility] Work Phone: 05-31-2022 19:41-0400 Respiratory rate 18 /min Dr. Misael Molina Work Phone: [facility] Work Phone: 05-31-2022 19:41-0400 SaO2% (BldA) [Mass fraction] 98 % Dr. Misael Molina Work Phone: [facility] Work Phone: 05-31-2022 19:41-0400 Systolic blood pressure 106 mm[Hg] Dr. Misael Molina Work Phone: [facility] Work Phone: 05-31-2022 05:24-0400 Body weight 60.[address] Misael Molina Work Phone: [facility] Work Phone: 05-27-2022 07:24-0400 Inhaled oxygen concentration 60 % Dr. Misael Molina Work Phone: [facility] Work Phone: 05-18-2022 20:00-0400 Body mass index (BMI) [Ratio] 21.5 kg/m2 Dr. Misael Molina Work Phone: [facility] Work Phone: 05-18-2022 19:29-0400 Body temperature 98.9 [degF] [facility] Work Phone: 05-18-2022 19:29-0400 Diastolic blood pressure 66 mm[Hg] [facility] Work Phone: 05-18-2022 19:29-0400 Heart rate 133 /min [facility] Work Phone: 05-18-2022 19:29-0400 Inhaled oxygen flow rate 3 L/min [facility] Work Phone: 05-18-2022 19:29-0400 Respiratory rate 38 /min [facility] Work Phone: 05-18-2022 19:29-0400 SaO2% (BldA) [Mass fraction] 95 % [facility] Work Phone: 05-18-2022 19:29-0400 Systolic blood pressure 121 mm[Hg] [facility] Work Phone: 05-18-2022 16:10-0400 Body height 175.26 cm [facility] Work Phone: 05-18-2022 16:10-0400 Body mass index (BMI) [Ratio] 21.7 kg/m2 [facility] Work Phone: 05-18-2022 16:10-0400 Body weight 66.6 kg [facility] Work Phone: Encounters Encounter Date Encounter Type Care Provider Facility Start: 06-16-2025 End: 06-16-[address] Misael Molina MD Work Phone: [facility] Start: 06-16-2025 End: 06-16-[address] Aniket Cheema MD -Laboratory [facility] Start: 06-16-2025 End: 06-16-[address] Aniket Cheema MD -[facility] Work Phone: Start: 06-16-2025 End: 06-16-[address] Misael Molina MD Work Phone: -[facility] Start: 06-16-2025 End: 06-16-2025 ambulatory Misael Molina Facility:[facility] Start: 04-18-2025 Non-patient / Non-visit Dr. Alberta Browne MD -[facility] Work Phone: Start: 01-26-2025 End: 01-26-[address] Misael Molina MD Work Phone: [facility] Work Phone: Start: 01-26-2025 End: 01-26-[address] Misael Molina MD -Laboratory, [place] Work Phone: Start: 01-26-2025 End: 01-26-2025 ambulatory Misael Molina Facility:[facility] Start: 11-24-2024 ambulatory Misael Molina Facility:[facility] Start: 11-24-2024 Non-patient / Non-visit Maurilio Mcmanus DO -[facility] Start: 11-24-2024 End: 11-24-2024 Admission to same day surgery center Maurilio Mcmanus DO -Endoscopy Work Phone: Start: 11-24-2024 End: 11-24-2024 ambulatory Misael Molina Facility:[facility] Start: 09-13-2024 End: 09-13-2024 ambulatory Misael Molina Facility:[facility] Start: 07-27-2024 End: 07-27-2024 ambulatory Misael Molina Facility:[facility] Start: 07-15-2024 End: 07-15-2024 ambulatory Dax Terry Facility:[facility] Start: 07-06-2024 End: 07-06-2024 ambulatory Misael Molina Facility:[facility] Start: 12-14-2023 End: 12-14-[address] Misael Molina Work Phone: [facility] Work Phone: Start: 12-14-2023 End: 12-14-[address] Misael Molina Work Phone: [facility], [facility] Work Phone: Start: 12-10-2023 End: 12-10-[address] Misael Molina Work Phone: [facility] Work Phone: Start: 12-02-2023 End: 12-02-2023 ambulatory [facility]ital Work Phone: Start: 12-02-2023 End: 12-02-2023 Patient encounter procedure [facility] Work Phone: Start: 06-25-2023 End: 06-25-[address] Misael Molina Work Phone: [facility] Work Phone: Start: 06-25-2023 End: 06-25-[address] Misael Molina Work Phone: [facility], Specimen Work Phone: Start: 06-24-2023 End: 06-24-[address] Misael Molina Work Phone: [facility] Work Phone: Start: 06-08-2023 End: 06-08-2023 ambulatory [facility] Work Phone: Start: 06-08-2023 End: 06-08-2023 Patient encounter procedure [facility] Work Phone: Start: 05-19-2023 End: 05-19-2023 Patient encounter procedure [facility], [facility] Work Phone: Start: 03-06-2023 End: 03-06-2023 Patient encounter procedure [facility]-Nuclear Medicine, [facility] Work Phone: Start: 03-03-2023 End: 03-03-2023 Patient encounter procedure [facility] Start: 02-11-2023 End: 02-11-[address] Misael Molina Work Phone: [facility]-Laboratory Start: 02-05-2023 End: 02-05-[address] Misael Molina Work Phone: [facility] Work Phone: Start: 02-05-2023 End: 02-05-[address] Misael Molina Work Phone: [facility]-Outpatient Breast Imaging Start: 01-27-2023 Non-patient / Non-visit Dr. Misael Molina Work Phone: [facility] Start: 01-27-2023 End: 01-27-2023 Admission to same day surgery center Dr. Misael Molina Work Phone: [facility]-Endoscopy Start: 01-27-2023 End: 01-27-[address] Misael Molina Work Phone: [facility] Work Phone: Start: 01-26-2023 End: 01-26-[address] [facility] [place] Start: 12-24-2022 End: 12-24-[address] Misael Molina Work Phone: [facility] Start: 12-23-2022 End: 12-23-[address] Misael Molina Work Phone: [facility] Work Phone: Start: 12-23-2022 End: 12-23-[address] Misael Molina Work Phone: [facility] Start: 12-11-2022 End: 12-11-[address] Misael Molina Work Phone: [facility] Work Phone: Start: 12-11-2022 End: 12-11-[address] [facility] Start: 11-13-2022 End: 11-13-[address] Misael Molina Work Phone: [facility] Work Phone: Start: 11-13-2022 End: 11-13-[address] Misael Molina Work Phone: [facility]-Laboratory Start: 11-11-2022 End: 11-11-2022 Admission to same day surgery center Dr. Misael Molina Work Phone: [facility]-Patient Insurance Clerk/Special Procedures Start: 11-11-2022 End: 11-11-[address] Misael Molina Work Phone: [facility] Work Phone: Start: 11-10-2022 Non-patient / Non-visit Dr. Misael Molina Work Phone: [facility] Start: 11-04-2022 End: 11-04-[address] Misael Molina Work Phone: [facility] Work Phone: Start: 11-04-2022 End: 11-04-[address] Misael Molina Work Phone: [facility]-Laboratory Start: 11-04-2022 End: 11-04-[address] Misael Molina Work Phone: [facility] Start: 10-15-2022 Non-patient / Non-visit Dr. Misael Molina Work Phone: [facility] Start: 10-15-2022 End: 10-15-[address] Misael Molina Work Phone: [facility] Work Phone: Start: 10-15-2022 End: 10-15-[address] Misael Molina Work Phone: [facility]-Cardiovascular Services Start: 09-25-2022 End: 09-25-[address] Misael Molina Work Phone: [facility] Start: 09-23-2022 Non-patient / Non-visit Dr. Misael Molina Work Phone: [facility] Start: 06-30-2022 Non-patient / Non-visit Dr. Misael Molina Work Phone: [facility] Start: 06-29-2022 End: 06-29-[address] Misael Molina Work Phone: [facility] Work Phone: Start: 06-29-2022 End: 06-29-[address] Misael Molina Work Phone: [facility]-Progressive Care Unit, Outpt Start: 06-26-2022 End: 06-26-[address] Misael Molina Work Phone: [facility] Work Phone: Start: 06-26-2022 End: 06-26-[address] Misael Molina Work Phone: [facility] Start: 06-18-2022 End: 08-06-2022 Evaluation and management of inpatient Dr. Misael Molina Work Phone: [facility]-Transitional Care Unit Start: 06-18-2022 Non-patient / Non-visit Dr. Misael Molina Work Phone: [facility] Inpatient Physicians Start: 06-18-2022 Non-patient / Non-visit Dr. Misael Molina Work Phone: [facility] Start: 06-17-2022 Non-patient / Non-visit Dr. Misael Molina Work Phone: [facility] Inpatient Physicians Start: 06-17-2022 Non-patient / Non-visit Dr. Misael Molina Work Phone: [facility] Start: 06-16-2022 Non-patient / Non-visit Dr. Misael Molina Work Phone: [facility] Inpatient Physicians Start: 06-16-2022 Non-patient / Non-visit Dr. Misael Molina Work Phone: [facility] Start: 06-15-2022 Non-patient / Non-visit Dr. Misael Molina Work Phone: [facility] Inpatient Physicians Start: 06-14-2022 Non-patient / Non-visit Dr. Misael Molina Work Phone: [facility] Start: 06-13-2022 Non-patient / Non-visit Dr. Misael Molina Work Phone: [facility] Start: 06-13-2022 Non-patient / Non-visit Dr. Misael Molina Work Phone: [facility] Start: 06-12-2022 Non-patient / Non-visit Dr. Misael Molina Work Phone: [facility] Start: 06-12-2022 Non-patient / Non-visit Dr. Misael Molina Work Phone: [facility] Start: 06-11-2022 Non-patient / Non-visit Dr. Misael Molina Work Phone: [facility] Start: 06-11-2022 Non-patient / Non-visit Dr. Misael Molina Work Phone: [facility] Start: 06-11-2022 Non-patient / Non-visit Dr. Misael Molina Work Phone: [facility] Start: 06-10-2022 Non-patient / Non-visit Dr. Misael Molina Work Phone: [facility] Start: 06-10-2022 Non-patient / Non-visit Dr. Misael Molina Work Phone: [facility] Start: 06-09-2022 Non-patient / Non-visit Dr. Misael Molina Work Phone: [facility] Start: 06-09-2022 Non-patient / Non-visit Dr. Misael Molina Work Phone: [facility] Start: 06-09-2022 Non-patient / Non-[facility] Start: 06-08-2022 Non-patient / Non-visit Dr. Misael Molina Work Phone: [facility] Start: 06-08-2022 Non-patient / Non-visit Dr. Misael Molina Work Phone: [facility] Start: 06-08-2022 Non-patient / Non-visit Dr. Misael Molina Work Phone: [facility] Start: 06-07-2022 Non-patient / Non-visit Dr. Misael Molina Work Phone: [facility] Start: 06-07-2022 Non-patient / Non-[facility] Start: 06-07-2022 Non-patient / Non-visit Dr. Misael Molina Work Phone: [facility] Start: 06-06-2022 End: 06-18-2022 Evaluation and management of inpatient [facility] Start: 06-06-2022 Non-patient / Non-visit Dr. Misael Molina Work Phone: [facility] Start: 06-06-2022 Evaluation and management of inpatient [facility]ael Mol[facility] Start: 06-03-2022 End: 06-03-2022 Emergency department patient visit Dr. Misael Molina Work Phone: [facility] Start: 05-31-2022 Non-patient / Non-visit Dr. Misael Molina Work Phone: [facility] Start: 05-31-2022 Non-patient / Non-visit Dr. Misael Molina Work Phone: [facility] Start: 05-30-2022 Non-patient / Non-visit Dr. Misael Molina Work Phone: [facility] Start: 05-30-2022 Non-patient / Non-visit Dr. Misael Molina Work Phone: [facility] Start: 05-29-2022 Non-patient / Non-visit Dr. Misael Molina Work Phone: [facility] Start: 05-29-2022 Non-patient / Non-visit Dr. Misael Molina Work Phone: [facility] Start: 05-28-2022 Non-patient / Non-visit Dr. Misael Molina Work Phone: [facility] Start: 05-27-2022 Non-patient / Non-visit Dr. Misael Molina Work Phone: [facility] Start: 05-27-2022 Non-patient / Non-visit Dr. Misael Molina Work Phone: [facility] Start: 05-26-2022 Non-patient / Non-visit Dr. Misael Molina Work Phone: [facility] Start: 05-25-2022 Non-patient / Non-visit Dr. Misael Molina Work Phone: [facility] Start: 05-24-2022 Non-patient / Non-visit Dr. Misael Molina Work Phone: [facility] Start: 05-24-2022 Non-patient / Non-[facility]. Misael Mol[facility] Start: 05-23-2022 Non-patient / Non-visit Dr. Misael Molina Work Phone: [facility] Start: 05-23-2022 Non-patient / Non-[facility] Start: 05-22-2022 Non-patient / Non-visit Dr. Misael Molina Work Phone: [facility] Start: 05-22-2022 Non-patient / Non-visit Dr. Misael Molina Work Phone: [facility] Start: 05-21-2022 Non-patient / Non-visit Dr. Misael Molina Work Phone: [facility] Start: 05-21-2022 Non-patient / Non-visit [facility]. Misael Molina [facility] Start: 05-20-2022 Non-patient / Non-visit Dr. Misael Molina Work Phone: [facility] Start: 05-20-2022 End: 05-31-2022 Non-patient / Non-visit Dr. Misael Molina Work Phone: [facility] Start: 05-19-2022 Non-patient / Non-visit Dr. Misael Molina Work Phone: [facility] Start: 05-19-2022 Non-patient / Non-visit Dr. Misael Molina Work Phone: [facility] Start: 05-19-2022 Non-patient / Non-visit Dr. Misael Molina Work Phone: [facility] Start: 05-18-2022 End: 05-31-2022 Non-patient / Non-visit Dr. Misael Molina Work Phone: [facility] Start: 05-18-2022 End: 05-31-2022 Evaluation and management of inpatient [facility] Care Unit Procedures Date Procedure Procedure Detail Performing Clinician Start: 12-14-2023 CT of chest without contrast Dr. Misael pereira Work Phone: Start: 06-25-[address] Misael Molina Work Phone: Start: 05-19-2023 CT of chest without contrast Start: 03-06-2023 Radionuclide gastric emptying study Start: 03-03-2023 Positron emission tomography with computed tomography Start: 02-05-[address] Misael Molina Work Phone: Start: 01-27-[address] Misael Molina Work Phone: Start: 12-23-2022 CT of chest without contrast Dr. Misael pereira Work Phone: Start: 11-04-2022 Plain chest X-ray Dr. Misael Molina Work Phone: Start: 10-15-2022 Cardiovascular stress test using pharmacologic stress agent Dr. Misael Molina Work Phone: Start: 06-26-2022 Computed tomography of abdomen and pelvis with contrast Dr. Misael Molina Work Phone: Start: 06-25-[address] Misael Molina Work Phone: Start: 06-13-2022 Plain chest X-ray Dr. Misael Molina Work Phone: Start: 06-11-[address] Misael hilliard Work Phone: Start: 06-06-2022 Plain chest X-ray Dr. Misael Molina Work Phone: Start: 06-06-2022 Plain chest X-ray Dr. Misael Molina Work Phone: Start: 06-06-2022 CT of head without contrast Dr. Misael dimas Work Phone: Start: 06-03-2022 Plain chest X-ray Dr. Misael Molina Work Phone: Start: 05-30-2022 Plain X-ray abdomen Dr. Misael Molina Work Phone: Start: 05-27-2022 Plain chest X-ray Dr. Misael Molina Work Phone: Start: 05-18-2022 CT angiography of chest with contrast Dr. Misael Molina Work Phone: Start: 05-18-2022 Plain chest X-ray Bacteria identified in Blood by Culture Dr. Misael Molina Work Phone: Fungus stain method Dr. Misael Molina Work Phone: Investigation of tra nsfusion reaction Dr. Misael Molina Work Phone: Mycology culture Dr. Misael pereira Work Phone: Respiratory microbial culture Dr. Misael Molina Work Phone: Streptococcus pneumoniae Antigen (M Dr. Misael Molina Work Phone: Urine culture Dr. Misael Allen en Work Phone: Urine culture Dr. Misael connolly Work Phone: Viral antigen assay Dr. Misael Molina Work Phone: Viral antigen assay Dr. Misael Molina Work Phone: Plan of Treatment Date Care Activity Detail Author Start: 06-30-2025 ambulatory Ambulatory Facility:[facility] Start: 11-24-2024 Colonoscopy w/biopsy single/multiple COLONOSCOPY AND BIOPSY [facility] Start: 11-24-2024 Egd transoral biopsy single/multiple EGD BIOPSY SINGLE/MULTIPLE [facility] Start: 11-24-2024 Patient discharge [facility] Start: 02-11-2023 Ferritin [Mass/volume] in Serum or Plasma [facility] Start: 02-11-2023 Iron and Iron binding capacity panel - Serum or Plasma [facility] Start: 01-27-2023 Procedure [facility] Start: 01-27-2023 Colonoscopy flx dx w/collj spec when pfrmd DIAGNOSTIC COLONOSCOPY [facility] Start: 01-27-2023 Egd transoral biopsy single/multiple EGD BIOPSY SINGLE/MULTIPLE [facility] Start: 01-27-2023 Patient discharge [facility] Start: 01-26-2023 [facility] Start: 08-07-2022 Blood chemistry [facility] Work Phone: Start: 08-06-2022 Development of care plan [facility] Start: 08-06-2022 Patient discharge [facility] Start: 08-05-2022 [facility] Work Phone: Start: 08-01-2022 Development of care plan [facility] Start: 08-01-2022 Referral to service [facility] Start: 08-01-2022 End: 08-01-2022 [facility] Start: 07-31-2022 Blood chemistry [facility] Work Phone: Start: 07-29-2022 [facility] Start: 07-24-2022 Blood chemistry [facility] Work Phone: Start: 07-17-2022 Blood chemistry [facility] Work Phone: Start: 07-10-2022 Blood chemistry [facility] Work Phone: Start: 07-03-2022 Blood chemistry [facility] Work Phone: Start: 07-01-2022 Inhalation therapy procedure [facility] Start: 06-30-2022 Blood chemistry [facility] Work Phone: Start: 06-29-2022 Administration of blood product [facility] Work Phone: Start: 06-29-2022 [facility] Work Phone: Start: 06-29-2022 Administration of blood product [facility] Start: 06-26-2022 Following clinical pathway protocol [facility] Start: 06-26-2022 Consultation [facility] Start: 06-25-2022 [facility] Start: 06-20-2022 Oxygen therapy [facility] Start: 06-20-2022 [facility] Work Phone: Start: 06-19-2022 Development of care plan [facility] Start: 06-19-2022 Developing a treatment plan [facility] Start: 06-18-2022 Patient referral to dietitian [facility] Start: 06-18-2022 Consultation for treatment [facility] Start: 06-18-2022 Verification routine [facility] Work Phone: Start: 06-18-2022 Admission procedure [facility] Start: 06-18-2022 Measuring intake and output [facility] Start: 06-18-2022 Patient referral to dietitian [facility] Start: 06-18-2022 Referral to occupational therapist [facility] Start: 06-18-2022 Referral to service [facility] Start: 06-18-2022 Vital signs measurements [facility] Start: 06-18-2022 [facility] Start: 06-18-2022 Following clinical pathway protocol [facility] Start: 06-18-2022 Wound care [facility] Start: 06-18-2022 Electrocardiographic procedure [facility] Work Phone: Start: 06-18-2022 Removal of urinary catheter [facility] Work Phone: Start: 06-18-2022 Patient discharge [facility] Work Phone: Start: 06-18-2022 [facility] Work Phone: Start: 06-17-2022 [facility] Work Phone: Start: 06-15-2022 Care planning and problem solving actions [facility] Work Phone: Start: 06-15-2022 Removal of urinary catheter [facility] Work Phone: Start: 06-15-2022 [facility] Work Phone: Start: 06-14-2022 Introduction of urinary catheter [facility] Work Phone: Start: 06-13-2022 [facility] Work Phone: Start: 06-11-2022 Catheterization of vein [facility] Work Phone: Start: 06-10-2022 [facility] Work Phone: Start: 06-10-2022 Consultation for treatment [facility] Work Phone: Start: 06-08-2022 Incentive spirometry [facility] Work Phone: Start: 06-08-2022 End: 06-08-2022 Blood culture [facility] Work Phone: Start: 06-08-2022 End: 06-08-2022 [facility] Work Phone: Start: 06-08-2022 Consultation [facility] Work Phone: Start: 06-08-2022 Physiotherapy of chest [facility] Work Phone: Start: 06-07-2022 Referral to occupational therapist [facility] Work Phone: Start: 06-07-2022 Referral to service [facility] Work Phone: Start: 06-06-2022 Administration of blood product [facility] Work Phone: Start: 06-06-2022 Assessment of risk of venous thromboembolism [facility] Work Phone: Start: 06-06-2022 Care regimes management [facility] Work Phone: Start: 06-06-2022 Consultation [facility] Work Phone: Start: 06-06-2022 Insertion of catheter into peripheral vein [facility] Work Phone: Start: 06-06-2022 Measuring intake and output [facility] Work Phone: Start: 06-06-2022 Notification of physician [facility] Work Phone: Start: 06-06-2022 Oxygen therapy [facility] Work Phone: Start: 06-06-2022 Providing care according to standard [facility] Work Phone: Start: 06-06-2022 Referral to gastroenterology service [facility] Work Phone: Start: 06-06-2022 Vital signs measurements [facility] Work Phone: Start: 06-06-2022 [facility] Work Phone: Start: 06-06-2022 Referral to service [facility] Work Phone: Start: 06-06-2022 Admission procedure [facility] Work Phone: Start: 06-06-2022 Following clinical pathway protocol [facility] Work Phone: Start: 06-06-2022 Administration of blood product [facility] Work Phone: Start: 06-06-2022 Esophagogastroduodenoscopy EGD (MAC) (Not Applicable) [facility] Work Phone: Start: 06-06-2022 [facility] Work Phone: Start: 06-06-2022 Catheterization of vein [facility] Work Phone: Start: 06-06-2022 Leukocyte reduced red blood cells [facility] Work Phone: Start: 06-06-2022 End: 06-06-2022 Blood culture [facility] Work Phone: Start: 06-06-2022 [facility] Work Phone: Start: 06-06-2022 Inhalation therapy procedure [facility] Work Phone: Start: 06-06-2022 Patient referral to dietitian [facility] Work Phone: Start: 06-03-2022 Emergency dept visit high severity&threat funcj EMERGENCY DEPT VISIT [facility] Work Phone: Start: 06-03-2022 [facility] Work Phone: Start: 05-31-2022 Patient discharge [facility] Work Phone: Start: 05-28-2022 [facility] Work Phone: Start: 05-24-2022 [facility] Work Phone: Start: 05-24-2022 Continuous pulse oximetry [facility] Work Phone: Start: 05-24-2022 [facility] Work Phone: Start: 05-22-2022 Care planning and problem solving actions [facility] Work Phone: Start: 05-20-2022 [facility] Work Phone: Start: 05-19-2022 Care planning and problem solving actions [facility] Work Phone: Start: 05-19-2022 Consultation [facility] Work Phone: Start: 05-18-2022 Following clinical pathway protocol [facility] Work Phone: Start: 05-18-2022 Application of intermittent pneumatic compression device [facility] Work Phone: Start: 05-18-2022 Ambulation without limitation [facility] Work Phone: Start: 05-18-2022 Assessment of risk of venous thromboembolism [facility] Work Phone: Start: 05-18-2022 Catheterization of vein [facility] Work Phone: Start: 05-18-2022 Consultation [facility] Work Phone: Start: 05-18-2022 Elevation of head of bed [facility] Work Phone: Start: 05-18-2022 Incentive spirometry [facility] Work Phone: Start: 05-18-2022 Inhalation therapy procedure [facility] Work Phone: Start: 05-18-2022 Insertion of catheter into peripheral vein [facility] Work Phone: Start: 05-18-2022 Measuring intake and output [facility] Work Phone: Start: 05-18-2022 Medication education [facility] Work Phone: Start: 05-18-2022 Oxygen therapy [facility] Work Phone: Start: 05-18-2022 Patient education [facility] Work Phone: Start: 05-18-2022 Providing care according to standard [facility] Work Phone: Start: 05-18-2022 Referral to occupational therapist [facility] Work Phone: Start: 05-18-2022 Referral to service [facility] Work Phone: Start: 05-18-2022 [facility] Work Phone: Start: 05-18-2022 Care regimes management [facility] Work Phone: Start: 05-18-2022 Notification of physician [facility] Work Phone: Start: 05-18-2022 Verification routine [facility] Work Phone: Start: 05-18-2022 End: 05-18-2022 Blood culture [facility] Work Phone: Start: 05-18-2022 Troponin I measurement [facility] Work Phone: Start: 05-18-2022 Influenza virus A and B and SARS-CoV-2 (COVID-19) Ag panel - Upper respiratory specim [facility] Work Phone: Start: 05-18-2022 End: 05-18-2022 [facility] Work Phone: Start: 05-18-2022 Viral nucleic acid assay [facility] Work Phone: Start: 05-18-2022 Admission procedure [facility] Work Phone: Start: 05-18-2022 End: 05-19-2022 [facility] Work Phone: Start: 05-18-2022 Patient referral to dietitian [facility] Work Phone: Alanine aminotransfe rase [Enzymatic activity/volume] in Serum or Plasma [facility] Work Phone: Albumin [Mass/volume ] in Serum or Plasma [facility] Work Phone: Alkaline phosphatase [Enzymatic activity/volume] in Serum or Plasma [facility] Work Phone: Angiotensin converti ng enzyme [Enzymatic activity/volume] in Serum or Plasma [facility] Antibody to lupus La protein measurement [facility] Antibody to SS-A measurement [facility] Aspartate aminotrans ferase [Enzymatic activity/volume] in Serum or Plasma [facility] Work Phone: Bacteria identified in Blood by Culture Blood Culture [facility] Work Phone: Bacteria identified in Urine by Culture Urine Culture [facility] Work Phone: Bilirubin, total measurement [facility] Work Phone: Bilirubin.direct [Ma ss/volume] in Serum or Plasma [facility] Work Phone: Blood culture [facility] Work Phone: Complete blood count [facility] Cyclic citrullinated peptide IgG Ab [Units/volume] in Serum or Plasma [facility] DNA double strand Ab [Units/volume] in Serum [facility] Evaluation of diagno stic study results [facility] Fungal Culture Fungal Culture [facility] Work Phone: Hemoglobin A1c/Hemog lobin.total in Blood [facility] Work Phone: Iron [Mass/mass] in Unspecified specimen [facility] Iron saturation [Mas s Fraction] in Serum or Plasma [facility] Lactic acid measurement [facility] Work Phone: Magnesium [Mass/volu me] in Serum or Plasma [facility] Work Phone: Measurement of Asper gillus flavus antibody [facility] Work Phone: Measurement of Asper gillus fumigatus antibody [facility] Work Phone: Measurement of Asper gillus niger antibody [facility] Work Phone: Neutrophil cytoplasm ic Ab.classic [Units/volume] in Serum [facility] Nuclear Ab [Presence] in Serum [facility] P-ANCA measurement [facility] Patient Education ED COPD Flare ED Dehydration (Adult) [facility] Work Phone: Patient referral [facility] Work Phone: Procedure [facility] Radionuclide gastric emptying study [facility] Respiratory microbial culture Respiratory Culture [facility] Work Phone: [id number] extractable n uclear Ab [Units/volume] in Serum by Immunoassay [facility] Smooth muscle Ab [Pr esence] in Serum [facility] Total protein measurement [facility] Work Phone: Troponin I measurement [facility] Work Phone: Urine culture Urine Culture [facility] Work Phone: Immunizations Immunization Date Immunization Notes Care Provider Maci juárez 07-25-2021 Covid ([employer]) Dr. Misael hilliard Work Phone: [facility] 01-15-2021 Covid (Pfizer) Dr. Misael hilliard Work Phone: [facility] 12-25-2020 Covid (Pfizer) Dr. Misael hilliard Work Phone: [facility] 05-05-2018 tetanus toxoid, redu alessandro diphtheria toxoid, and acellular pertussis vaccine, adsorbed Dr. Misael Molina Work Phone: [facility] Payers Date Payer Category Payer Self-pay [id number] [id number] Medicare [id number] 2017 Unknown [id number] Unknown [id number] 2.16.8 [id number] Unknown [id number] 2.16.8 [id number] Unknown [id number] 2.16.8 [id number] Unknown [id number] 2.16.8 [id number] Unknown [id number] 2.16.8 [id number] Unknown [id number] 2.16.8 [id number] Unknown [id number] 2.16.8 [id number] Unknown [id number] 2.16.8 [id number] Unknown [id number] 2.16.8 [id number] Unknown [id number] 2.16.8 [id number] Social History Date Type Detail Facility Start: 05-18-2022 End: 12-10-2023 Tobacco smoking status NHIS Unknown if ever smoked [facility] Start: 1950 Sex Assigned At Female [facility] Start: 11-22-2024 Tobacco smoking status NHIS Ex-smoker (finding) [facility] Start: 01-31-2025 Sex Female (finding) [facility] NEGATED: Highlighted row [facility] NEGATED: Highlighted row Not [facility] Goals Date Patient Goal Desired Activity /State Functional Status Date Assessment Result Facility 08-06-2022 Functional status Up ad leonor [facility] Work Phone: 07-02-2022 Functional status Bedrest [facility] Work Phone: 06-29-2022 Functional status Activity Abili ty Unable to Assess [facility] Work Phone: 06-29-2022 Functional status Chair [facility] Work Phone: 06-18-2022 Functional status Chair [facility] Work Phone: 06-16-2022 Functional status Rolling Walker [facility] Work Phone: 05-31-2022 Functional status Chair [facility] Work Phone: Mental Status Date Assessment Result Facility 11-24-2024 Cognitive function Voice/Name [facility] Work Phone: 01-27-2023 Cognitive function Voice/Name [facility] Work Phone: 08-06-2022 Cognitive function Voice/Name [facility] Work Phone: 07-31-2022 Cognitive function Appropriate;Cooperativ e [facility] Work Phone: 07-01-2022 Cognitive function Voice/Name [facility] Work Phone: 06-29-2022 Cognitive function Voice/Name [facility] Work Phone: 06-18-2022 Cognitive function Voice/Name [facility] Work Phone: 06-06-2022 Cognitive function Voice/Name [facility] Work Phone: 05-31-2022 Cognitive function Voice/Name [facility] Work Phone: 05-18-2022 Cognitive function Level Of Cons ciousness Awake;Drowsy [facility] Work Phone: Clinical Notes 11-11-2022 to 06-16-2025 Note Date & Type Note Facility 06-16-2025 Evaluation note Diagnosis Onset Date Resolution Anticoagulant long-term use acute June 16 11:20am CAD (coronary artery disease) acute June 16 11:20am Paroxysmal A-fib acute May 202024 11:20am [facility] Work Phone: 1(424) 688-565102-06-2025 Evaluation note* Diagnosis Onset Date Resolution Status Admit Date Eosinophilic esophagitis chronic November 24, 2024 5:36am GI bleed chronic November 24, 2024 5:36am [facility] Work Phone: 1(865) 850-973502-06-2025 [facility] Medical Records Department [address] [place] [id number] History Physical Exam 11/24/24 0656 MR#: [id number] Acct: [id number] Name: RAVI BECKHAM Rep #: [id number] : 1950 74 From: Maurilio Friend DO PCP: Dr. Misael Molina MD Status:REG [facility] Location: [place] [address] HPI - General General Date of Admission: 11/24/24 Date of Service: 11/24/24 Chief Complaint: Gastric ulcer HPI Narrative RAVI BECKHAM, is a 74 F who presents for endoscopic surviallence of gastric ulcer H DM 1; CAD; hyperlipidemia; encephalopathy; a.Fib [facility] Hospitalization 7.31.22-8.13.22 for COVID with legionella pne, respiratory failure. Discharged to SNF. [facility] ED 8.16. with SOB and hypoxia. *[facility] hospitalization 8.19.22-06.18.22 with transfer to TCU until 08.06.22. GI consulted 06.06.22 for suspected GIB with start of PPI and octreotide drip (stopped several days later). 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 EGD 06.11.22 irregular Zline 37cm; LA Grade B esophagitis; diffuse severe inflammation, erythema and friability of entire stomach, heater probed; 5mm non-bleeding diverticulum of second portion duodenum; 4mm nonbleeding diverticulum of jejunum; non bleeding crater ulcer in jejunum. OV 11.13.22 with recommendation to continue PPI. Repeat EGD and performed screening colonoscopy. ? EGD and colonoscopy 01.27.23 EGD mucosal changes suspicious of EOE; bile gastritis. No pathologic changes save inflammation. H.Pylori negative. ? Colonoscopy poor prep. Diverticulosis. No specimens collected. OV 02.11.23 No signs of GIB, anemia or dysphagia. Continues with PPI BID OV 06.10.24 Patient has been having daily diarrhea for awhile now. She will have a formed stool on occasion. She has tried cholestyramine in the past but did not work for her. She will have breakthrough heartburn on occasion but it is managed with tums. She has no signs of GI bleed. She denies abdominal pain, melena, n/v or constipation OV 09.13.24 Pt reports decreased episodes of diarrhea since starting fiber supplementation. She will have just one episode per day now. She does have formed stools as well. She has some nausea that she associates with her heartburn. SHe does not feel pantoprazole is controlling this well. [facility] Medical History Anxiety Bladder disease Back pain On home oxygen therapy Iatrogenic pneumothorax Legionnaires' disease Wears glasses Wears partial dentures Ambulates with cane Arthritis Anemia Low iron Dietary restriction History of diverticulitis History of ulceration History of GI bleed Gastric reflux Former smoker Emphysema, unspecified Shortness of breath on exertion History of echocardiogram History of stress test Cardiology follow-up encounter Hypertension History of atrial fibrillation History of left heart catheterization (LHC) ( 11/11/22) Atherosclerotic heart disease of [place] coronary artery without angina pectoris Abnormal stress test Type 1 diabetes Tobacco abuse Hematuria Diabetes mellitus Paroxysmal A-fib History of diabetes mellitus COVID-19 High cholesterol Diabetes Home Medications ???Medication ???Instructions ???Recorded ???Last Taken ???Type alendronate 70 mg tablet 70 mg PO MO Osteoporosis 05/18/22 11/23/24 History polysaccharide iron complex 150 mg 150 mg PO DAILY anemia 30 days # 30 07/30/22 11/20/24 Rx iron capsule (Ferrex) caps cholecalciferol (vitamin D3) 50 50 mcg PO DAILY supplement 2 11/23/24 History mcg (2,000 unit) tablet metoprolol tartrate 25 mg tablet 6.25 mg PO BIDCM afib 09/23/2204/12 History metformin 1,000 mg tablet 1,000 mg PO BID 07/06/24 11/23/24 History midodrine 5 mg tablet 10 mg PO BID blood pressure 11/24/24 History atorvastatin 40 mg tablet 20 mg (1/2 x 40 mg) PO QHS 4 11/23/24 Rx Cholestrol #30 tabs apixaban 5 mg tablet (Eliquis) 5 mg PO BID blood thinner #180 tab s 09/09/24 11/20/24 Rx empagliflozin 10 mg tablet 10 mg PO DAILY 11/22/24 11/20/24 H istory (Jardiance) omeprazole 40 mg capsule,delayed 40 mg PO QHS 11/22/24 11/23/24 His tory release potassium chloride 20 mEq 20 meq PO DAILY supplement 5 11/23/24 History tablet,extended release(part/cryst) (Klor-Con M) sertraline 25 mg tablet 25 mg PO DAILY 11/22/24 11/24/24 H istory Allergy/AdvReac Type Severity Reaction Status Date / Time Sulfa (Sulfonamide Allergy Unknown GI issues Verified 11/24/24 05:53 Antibiotics) Family History Uncle Heart di (more content not included)...[facility] 01-27-2023 Procedure [facility]04-11-2023 Procedure note [facility]04-11-2023 Procedure [facility] 01-27-2023 Procedure [facility]01-24-2023 History and physical note Author Dr. Daniels [facility] November 11, 2022 7:58am Note Date/Time November 10, 2022 3 :48pm [facility] Medical Records Department [address] [place] [address] History & Physical Exam 11/10/22 1545 MR#: [id number] Acct: [id number] Name: CARYJUSTINRAVI LOVEY Rep #:[id number] : 1950 72 From: Misael Daniels MD PCP: Dr. Misael Molina MD Status:REG S DC Location: [facility] History and Physical Date of Admission: 11/11/22 [facility] [address] [place] [address] MR#: [id number] Acct: [id number] Name:RAVI URIARTE Rep #: [id number] : 1950 Provider: Dr. Misael Daniels MD Age/Sex:? 72/F ?Location: [facility] Status: Signed [facility] History of Present Illness Details: This is a 72-year-old white female who presents for outpatient cardiovascular consultation based upon concerns of trolled fibrillation, and abnormal chest CT scan commenting on underlying atherosclerotic coronary artery disease, hyperlipidemia, superimposed upon tobacco abuse.? She spent a long period of time (approximately 2 months) based upon her recollection and her daughter's recollection-who is with her today at [facility] in both the acute care and in the transitional care unit based upon concerns from their understanding of COVID-19 and Legionella.? During this time she apparently had intermittent atrial fibrillation.? She was placed on medical management which included beta-blockers, digitalis, and anticoagulants.? She had undergone evaluation with a transthoracic echocardiogram.? The results are noted below.? She has been out of the hospital.? She presents for outpatient cardiovascular evaluation. At the present time she denies any ongoing symptoms of classic angina pectoris.?She believes her breathing is improving.? However her daughter states her oxygensaturation still drops at night.? She states that they are pending a pulmonologyevaluation.? There is been no obvious orthopnea or PND or peripheral pitting edema.? She has had no near-syncope or syncope. In the office today she had an ECG.? She was noted to be in sinus rhythm with noacute ECG changes. Intake Vital Signs ? 07/30/2217:24 09/25/2214:07 09/25/2214:10 Height 5 ft 8 in 5 ft 8 in 5 ft 8 in Weight: ? ? 138 lb BMI ? ? 20.9 BP ? ? 122/72 H Blood Pressure Location ? ? Lt brachial Position ? ? Sitting Respiration ? ? 18 Pulse ? ? 64 Pulse Source ? ? Auscultation Intake Visit Reasons:?A-FIB/REF. TRACY Ropeman Required: No Accompanied by: Daughter Allergies Sulfa (Sulfonamide Antibiotics) Allergy (Unknown, Verified 09/25/22 14:10) GI issues Medications alendronate 70 mg tablet 70 mg PO MO Osteoporosis 05/18/22 [History Confirmed 09/25/22] atorvastatin 20 mg tablet 20 mg PO QHS Cholestrol 05/18/22 [History Confirmed 09/25/22] metformin 500 mg tablet 500 mg PO DAILY BP 05/18/22 [History Confirmed 09/25/22] apixaban 5 mg tablet (Eliquis) 5 mg PO BID Blood thinner 30 days #60 tabs 07/30/22 [Rx Confirmed 09/25/22] midodrine 5 mg tablet 10 mg PO TIDCM 30 days #180 tabs 07/30/22 [Rx Confirmed 09/25/22] mirtazapine 15 mg tablet 7.5 mg PO QHS 30 days #15 tabs 07/30/22 [Rx Confirmed 09/25/22] pantoprazole 40 mg tablet,delayed release 40 mg PO BID GERD 30 days #60 tabs 07/30/22 [Rx Confirmed 09/25/22] polysaccharide iron complex 150 mg iron capsule (Ferrex) 150 mg PO DAILY 30 days#30 caps 07/30/22 [Rx Confirmed 09/25/22] potassium chloride 20 mEq tablet,extended release(part/cryst) (Klor-Con M) 20 meq PO BIDCM 30 days #60 tabs 07/30/22 [Rx Confirmed 09/25/22] sucralfate 1 gram tablet 1 g PO 1HR_ACHS Stomach 30 days #120 tabs 07/30/22 [Rx Confirmed 09/25/22] cholecalciferol (vitamin D3) 50 mcg (2,000 unit) tablet 50 mcg PO DAILY 09/23/22[History Confirmed 09/25/22] metoprolol tartrate 25 mg tablet 25 mg PO BIDCM 09/23/22 [History Confirmed 09/25/22] methenamine hippurate 1 gram tablet 1 g PO QHS 09/25/22 [History Confirmed 09/25/22] PFSH Medical History? COVID-19 Diabetes Diabetes mellitus Frequent urinary tract infections GERD (gastroesophageal reflux disease) Hematuria High cholesterol History of diabetes mellitus Osteoarthritis Paroxysmal A-fib Tobacco abuse Type 1 diabetes Family History? Uncle Heart diseaseUncle Heart disease Social History? household members:? spouse Smoking Status:? Former smoker alcohol intake:? never substance use type:? does not use caffeine:? Yes Type: coffee Number of servings: 2 ROS Const Const: Negative for fatigue, weakness, body ache, fever(s), headache(s), chills,frequent falls, night sweats, daytime sleepiness, difficulty sleeping, excessivesweating, weight gain, weight loss, increased appetite, poor appetite, anorexia or other Eyes Eyes: Negative for blurry vision or double vision ENT ENT: Positive for balance problems (ambulates with a cane); Negative for headache(s) or dizziness Cardio Chest Pain: No Palpitations: No Edema: None Muscle aches with walking: None Resp Respiratory: Positive for SOB with activity (occasional; baseline) and SOB orthopnea\SOB lying down (occasional); Negative for SOB at rest, Cough, Coughing up blood/hemoptysis, chest congestion,pain on inspiration, snoring, stridor, wheezing, crackles, paroxysmal nocturnal dyspnea or other Musc Musc: Positive for balance problems (ambulates with a cane); Negative for muscle aches/ myalgia, muscle weakness or joint pain Neuro Neuro: Negative for dizziness, lightheadedness, near syncope, syncope, orthostatic symptoms, frequent falls, headache(s), weakness, confusion, memory loss, restless legs, blurry vision, double vision, vertigo, seizures, lack of coordination or other Endo Endo: Negative for fatigue or excessive sweating Cardiology Exam Const Appearance: cooperative, comfortable, no acute distress, well developed and wellgroomed Nutritional Appearance: thin Orientation: alert, awake and oriented x3 Head Head: normal to inspection, normocephalic and atraumatic Ears: hearing grossly normal bilaterally Nose: external nose normal Face and Sinus: face symmetric Eyes Eyelids: eyelids normal Conjunctivae: conjunctivae normal Pupils: PERRL EOM: EOM intact bilaterally Neck Neck: normal visual inspection and full ROM Carotids: normal carotid upstroke Chest Chest inspection: normal inspection of the chest, symmetric chest movement and normal respiratory effort Auscultation: Bilateral: Clear to Auscultation Cardio Palpation: normal PMI Rate: regular rate Rhythm: regular rhythm Heart sounds: S1 normal and S2 normal GI GI: normal to inspection, soft and bowel sounds present Neuro General: patient alert, patient awake, patient oriented x3 and moves all extremities Skin Skin: no rashes or lesions noted Extremities Pulses: Normal: Right Radial Pulse and Left Radial Pulse Lower Extremity Edema: None: Bilateral Psych Psychological: normal affect Supplemental Info Supplemental Information Transthoracic echocardiogram: 05-19-2022 Interpretation Summary Normal LV size. No regional wall motion abnormalities noted. Left ventricular systolic function is normal. The estimated ejection fraction is 60 %. Contrast injection was performed. Chest CTA: 05-18-2022 IMPRESSION: 1.? No evidence of pulmonary embolus. 2.? No aortic dissection or aneurysm. 3.? Interstitial alveolar infiltrates in the right upper lobe.? There is consolidative changes in the right lung base. 4.? Atherosclerotic changes of the thoracic aorta and coronary arteries. Labs: ?? ? LDL Cholesterol 27 mg/dL (0-130) ?? ? HDL Cholesterol 11 mg/dL (40-) L ?? ?C Triglycerides 98 mg/dL (-199) ?? ? VLDL Cholesterol 20 mg/dL (5-40) Diagnostics: ?? ? Electrocardiogram ? Echocardiogram ? Chest X-Ray ? Pulmonary: ?? ? No Data to Display Assessment and Plan Assessment and Plan (1) Paroxysmal A-fib: ?Status:?Acute ?Comment: On rate control medication and anticoagulation ?Plan: At the present time she will continue medical therapy. At the moment she will be discontinuing her digitalis therapy.? She will continue her beta-gunnar therapy.? She will continue her anticoagulant therapy. (2) CAD (coronary artery disease): ?Status:?Acute ?Plan: Based upon her scan findings there are concerns of underlying CAD.? She states she has never been evaluated for this. She will undergo further evaluation.? This will include a screening pharmacologic stress nuclear imaging study as she cannot walk on a treadmill based on her pulmonary disease and the fact that she walks with a cane. Depending upon the findings she may or may not need further cardiac evaluation. (3) Hyperlipidemia: ?Status:?Acute ?Plan: She should continue risk factor evaluation care as deemed appropriate. (4) Tobacco abuse: ?Status:?Acute ?Plan: She states that she has not smoke cigarettes since she has been in the hospital. She was counseled on the importance of not restarting her cigarette smoking. ? ? ? Orders: Orders 12 Lead EKG performed by BMS Today I48.0 - Paroxysmal atrial fibrillation ? Nuclear Stress Test - Chemical Today I48.0 - Paroxysmal atrial fibrillation ? Medications: Discontinued digoxin ?? Discontinued Reason:? Order Changed 125 mcg? PO DAILY 30 days 30 tabs 0RF ? ? Plan Details Additional Comments: The above was discussed with the patient with her daughter present.? They were agreeable to this approach. Thank you for allowing me to participate in the care of your patient.? Please don't hesitate to call if any issues arise. This note was generated using a voice recognition system and there may be incorrect words, spelling or punctuation that were not noted when reviewing the office note prior to saving. Follow Up: ? ? 3 Months (PFM ) COVID (Procedure Consent) Procedure Criteria Procedure Criteria: Yes Elective The surgeon/proceduralist and patient have discussed in detail the risk of exposure to and/or potential harm posed by the COVID-19 virus with having a surgery/procedure at this time versus the risk of? delaying the surgery/procedure. It is not possible to know either the risk of delaying the surgery or procedure or chance of getting an infection with perfect accuracy, but a joint decision was made between the patient and the surgeon/proceduralist ?to proceed at this time with the scheduled surgery/procedure as indicated on the consent form. Coding Level of Care Code Off vis,new,level 4 Diagnoses Paroxysmal A-fib? I48.0 CAD (coronary artery disease)? I25.10 Hyperlipidemia? E78.5 Tobacco abuse? Z72.0 Coding Level of Care Code Off vis,new,level 4 Diagnoses Paroxysmal A-fib? I48.0 CAD (coronary artery disease)? I25.10 Hyperlipidemia? E78.5 Tobacco abuse? Z72.0 09/25/22 1514 <Electronically signed by Misael Daniels MD> Date Misael Daniels MD Cosigner Signature: Date (if applicable) CC:? Dr. Misael Molina MD; Dr. Dax Terry MD ~ Assessment & Plan Addt'l Comments Addendum: 11-11-2022 I have examined the patient the following changes are noted: The patient underwent further evaluation with a stress nuclear imaging study on 10-15-2022. The results are noted below. Stress Test Report Date: 10-15-2022 Procedure: Pharmacologic stress nuclear imaging study? Indications: Atrial fibrillation; CAD; hyperlipidemia; dyspnea Consent: Per the patient Procedure: The patient underwent pharmacologic (Regadenoson 0.4mg ) evaluation with a peak heart rate of 96 beats per minute (64%predicted maximal heart rate) and a resting blood pressure of 134/74 mmHg and a peak blood pressure of 134/74 mmHg. The baseline ECG demonstrated normal sinus rhythm.? The peak pharmacologic ECG demonstrated no obvious ECG changes. There was a rare PVC during recovery. There was no complaint of chest discomfort during pharmacologic infusion or recovery. The examination was discontinued secondary to completion of protocol. Impression: 1.? Pharmacologic (Regadenoson) evaluation 2.? Peak pharmacologic ECG with no obvious ECG changes. 3.? There was a rare PVC during recovery. 4.? Nuclear images pending Myocardial perfusion imaging study: Technique: The patient was injected with 11.4 millicuries of technetium 99m Cardiolite and subsequently rest SPECT Cardiolite nuclear imaging was obtained in the horizontal long, vertical long, and short axis views. The patient underwent pharmacologic (Regadenoson) evaluation with a peak heart rate of 96 beats per minute (64% percent predicted maximal heart rate) and a resting blood pressure of 134/74 mmHg and a peak blood pressure of 134/74 mmHg. The patient was injected with 32.7 millicuries of technetium 99m Cardiolite and subsequently stress SPECT Cardiolite nuclear imaging was obtained in the horizontal long, vertical long, and short axis views.? A gated Cardiolite study at peak stress was obtained. Interpretation: Rest and stress SPECT Cardiolite nuclear imaging status post realignment, normalization, and attenuation correction demonstrate at rest relative uniform tracer uptake and myocardial perfusion appearing within normal limits.? Status post stress there is notation of diminished tracer uptake in the distal anterior/anteroapical segments.? There is end systolic thickening and brightening.? The gated Cardiolite study demonstrates myocardial thickening and inward wall motion.? The reported LVEF is 43%. Impression: 1.? Rest and stress SPECT her nuclear imaging demonstrate myocardial perfusion changes status post stress in the distal anterior/anteroapical segments compatible with an area of stress-induced myocardial ischemia. 2.? The gated Cardiolite study reports an LVEF of 43%. Based upon the patient's history and her objective findings a recommendation wasmade for further evaluation with diagnostic cardiac catheterization. The procedure and risk were discussed with the patient. She was agreeable to this approach. This note was generated using a voice recognition system and there may be incorrect words, spelling or punctuation that were not noted when reviewing the office note prior to saving. 11/11/22 0758 <Electronically signed by Misael Daniels MD> Cosigner Signature (if applicable): CC: Dr. Misael Daniels MD; Dr. Misael Molina MD~ Signed [facility] Work Phone: Evaluation note* Diagnosis Onset Date Resolution Status Acute dehydration acute Acute hypokalemia acute Acute hyponatremia acute Atrial fibrillation with rapid ventricular response acute COVID-19 acute History of diabetes mellitus acute Lobar pneumonia acute Weakness acute [facility] Work Phone: evaluation note* Diagnosis Onset Date Resolution Status Acute dehydration acute Acute hypokalemia acute Acute hyponatremia acute Atrial fibrillation with rapid ventricular response acute COVID-19 acute Legionella pneumonia acute Leukocytosis acute Lobar pneumonia acute Paroxysmal A-fib acute Respiratory failure with hypoxia acute Weakness acute History of diabetes mellitus chronic Acute blood loss anemia acut e Acute respiratory failure with hypoxia acute Acute upper gastrointestinal bleeding acute Anticoagulated acute Hypotension acute Pneumonia acute COPD exacerbation chronic [facility] Work Phone: evaluation note* Diagnosis Onset Date Resolution Status Leukocytosis acute Paroxysmal A-fib acute Respiratory failure with hypoxia acute Weakness acute History of diabetes mellitus chronic Acute dehydration resolved Acute hypokalemia resolved Acute hyponatremia resolved Atrial fibrillation with rapid ventricular response resolved COVID-19 resolved Legionella pneumonia resolve d Lobar pneumonia resolved Acute blood loss anemia acut e Acute respiratory failure with hypoxia acute Acute upper gastrointestinal bleeding acute Anticoagulated acute Debility acute Hemorrhagic shock acute Hypokalemia acute Hypomagnesemia acute Hypophosphatemia acute Hypotension acute Paroxysmal A-fib acute Pneumonia acute Respiratory failure with hypoxia acute Urinary retention acute COPD exacerbation chronic Atrial fibrillation with rapid ventricular response resolved [facility] Work Phone: evaluation note* Diagnosis Onset Date Resolution Status Leukocytosis acute Paroxysmal A-fib acute Weakness acute History of diabetes mellitus chronic Acute dehydration resolved Acute hypokalemia resolved Acute hyponatremia resolved Atrial fibrillation with rapid ventricular response resolved COVID-19 resolved Legionella pneumonia resolve d Lobar pneumonia resolved Respiratory failure with hypoxia resolved Acute respiratory failure with hypoxia acute Debility acute Hypotension acute Paroxysmal A-fib acute Urinary retention acute Acute blood loss anemia reso lved Acute upper gastrointestinal bleeding resolved Anticoagulated resolved Atrial fibrillation with rapid ventricular response resolved COPD exacerbation resolved Hemorrhagic shock resolved Hypokalemia resolved Hypomagnesemia resolved Hypophosphatemia resolved Pneumonia resolved Respiratory failure with hypoxia resolved Aspergillosis, with pneumonia acute Atrial fibrillation with rapid ventricular response acute Debility acute Diabetes mellitus acute Encephalopathy acute Hematuria acute Hyperlipidemia acute Hypotension acute Osteoporosis acute Pneumonia acute Recurrent urinary tract infection acute Sepsis acute Upper gastrointestinal bleed acute Urinary retention acute Chronic gastritis chronic Hemorrhagic shock resolved [facility] Work Phone: Evaluation note* Diagnosis Onset Date Resolution Status Aspergillosis, with pneumonia acute Atrial fibrillation with rapid ventricular response acute Debility resolved Encephalopathy acute Hyperlipidemia acute Osteoporosis acute Recurrent urinary tract infection acute Sepsis acute Chronic gastritis chronic Hematuria resolved Hemorrhagic shock resolved Hypotension resolved Pneumonia resolved Upper gastrointestinal bleed resolved Urinary retention resolved CAD (coronary artery disease) acute Hyperlipidemia acute Paroxysmal A-fib acute Tobacco abuse acute [facility] Work Phone: Evaluation note* Diagnosis Onset Date Resolution Status Aspergillosis, with pneumonia acute Atrial fibrillation with rapid ventricular response acute Debility resolved Diabetes mellitus acute Encephalopathy acute Hyperlipidemia acute Osteoporosis acute Recurrent urinary tract infection acute Sepsis acute Chronic gastritis chronic Hematuria resolved Hemorrhagic shock resolved Hypotension resolved Pneumonia resolved Upper gastrointestinal bleed resolved Urinary retention resolved CAD (coronary artery disease) acute Hyperlipidemia acute Paroxysmal A-fib acute Tobacco abuse [facility] Work Phone: Evaluation note* Diagnosis Onset Date Resolution Status Aspergillosis, with pneumonia acute Atrial fibrillation with rapid ventricular response acute Debility resolved Diabetes mellitus acute Encephalopathy acute Hyperlipidemia acute Osteoporosis acute Recurrent urinary tract infection acute Sepsis acute Chronic gastritis chronic Hematuria resolved Hemorrhagic shock resolved Hypotension resolved Pneumonia resolved Upper gastrointestinal bleed resolved Urinary retention resolved CAD (coronary artery disease) acute Hyperlipidemia acute Paroxysmal A-fib acute Tobacco abuse acute Adenomatous polyps acute GI bleed acute [facility] Work Phone: Evaluation note* Diagnosis Onset Date Resolution Status CAD (coronary artery disease) acute Hyperlipidemia acute Paroxysmal A-fib acute Tobacco abuse acute Adenomatous polyps acute GI bleed acute [facility] Work Phone: Evaluation note* Diagnosis Onset Date Resolution Status CAD (coronary artery disease) acute Hyperlipidemia acute Paroxysmal A-fib acute Tobacco abuse acute Adenomatous polyps acute GI bleed acute CAD (coronary artery disease) acute Hyperlipidemia acute Paroxysmal A-fib acute Tobacco abuse acute [facility] Work Phone: Evaluation note* Diagnosis Onset Date Resolution Status Adenomatous polyps acute GI bleed acute CAD (coronary artery disease) acute Hyperlipidemia acute Paroxysmal A-fib acute Tobacco abuse acute [facility] Work Phone: Evaluation note* Diagnosis Onset Date Resolution Status Adenomatous polyps acute GI bleed chronic CAD (coronary artery disease) acute Hyperlipidemia acute Paroxysmal A-fib acute Tobacco abuse acute Anemia acute Eosinophilic esophagitis chr onic GI bleed chronic [facility] Work Phone: Evaluation noteNo assessment information available [facility] Work Phone: Evaluation note* Diagnosis Onset Date Resolution Status CAD (coronary artery disease) acute Hyperlipidemia acute Paroxysmal A-fib acute Tobacco abuse acute [facility] Work Phone: Evaluation note* Diagnosis Onset Date Resolution Status Anemia acute Irritable bowel syndrome with diarrhea acute Eosinophilic esophagitis chr onic GI bleed chronic [facility] Work Phone: History and physical note Author Maurilio Mcmanus [facility] January 27, 2023 6:40am Note Date/Time January 27, 2023 6:4 0am [facility] Medical Records Department [address] [place] [id number] History & Physical Exam 01/27/23 0640 MR#: [id number] Acct: [id number] Name: RAVI BECKHAM Rep #:[id number] : 1950 72 From: Maurilio Mcmanus DO PCP: Dr. Misael Molina MD Status:REG S [place] Location: [place] [address] History and Physical Date of Admission: 01/27/23 72 F who presents to the office today for PMH DM 1; CAD; hyperlipidemia; encephalopathy; a.Fib [facility] Hospitalization 05.18.22-05.31.22 for COVID with legionella pne, respiratory failure. Discharged to SNF. [facility] ED 06.03.22 with SOB and hypoxia. [facility] hospitalization 06.06.22-06.18.22 with transfer to TCU until 08.06.22. GI consulted 06.06.22 for suspected GIB with start of PPI and octreotide drip (stopped several days later). 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 EGD 06.11.22?irregular Zline 37cm; LA Grade B esophagitis; diffuse severe inflammation, erythema and friability of entire stomach, heater probed; 5mm non-bleeding diverticulum of second portion duodenum; 4mm nonbleeding diverticulum of jejunum; non bleeding crater ulcer in jejunum. ROS Const Constitutional: No anorexia, fatigue, fever(s), weight change or sleep problems Eyes Eyes: No change in vision ENT ENT: No abnormal hearing, difficulty swallowing, mouth lesions, tongue swelling or throat swelling Resp Respiratory: No cough or shortness of breath Cardio Cardiology: No chest pain at rest, chest pain with exertion, shortness of breathor dyspnea on exertion Gastro GI: No difficulty swallowing Genitourinary-Female: No difficulty urinating or burning urination Musc Musculoskeletal: No joint pain, joint swelling, muscle weakness or decreased muscle mass Skin Skin: No hair loss in leg, yellowing of the eye, itchy eyes, rash, skin ulcer orskin swelling Neuro Neurology: No abnormal hearing, abnormal movements, confusion, unsteady gait/balance or memory loss Psych Psychiatric: No anxiety, No confusion and No memory loss Endo Endocrine: No fatigue or weight change Aller/Imm Allergy/Immunologic: No itchy eyes, throat swelling or tongue swelling Jason/Lymp Hematologic/Lymphatic: No easy bleeding, easy bruising or enlarged lymph nodes Exam Const General: cooperative and comfortable Nutritional Appearance: average body habitus and well nourished [facility] Head: normal to inspection Ears: hearing grossly normal bilaterally Nose: external nose normal Face and sinus: normal facial exam Mouth: oral mucosae normal Throat: posterior oropharynx normal Eyes General: appearance normal, both eyes and all related structures Neck Neck: normal visual inspection Chest Chest palpation & inspection: normal inspection of the chest and normal palpation of entire chest wall Resp Effort & Inspection: normal respiratory effort Auscultation: Bilateral: Clear to Auscultation Cardio Palpation: normal PMI Rate: regular rate Rhythm: regular rhythm GI Inspection: normal to inspection Auscultation: normal bowel sounds Percussion: normal to percussion Palpation: no hepatosplenomegaly Skin General: no rashes or lesions noted Neuro General: patient alert Extrem General: normal to inspection Psych Affect: normal affect Quality Reporting Tobacco Screening ([facility] 138) Smoking Status: Former smoker Assessment and Plan Assessment and Plan (1) GI bleed: ?Status:?Acute ?Plan: GI bleed secondary to multiple blood ulcers in the setting of severe bile gastritis likely secondary to medications and underlying gastroparesis from medications.? She has been on twice daily PPI therapy along with sulcal fate therapy.? We will stop sulcal fate.? Continue Protonix 40 mg p.o. twice daily until she has a repeat upper endoscopy.? She is also recommended continue iron sulfate therapy until her preparation for upper endoscopy (2) Adenomatous polyps: ?Status:?Acute ?Plan: .? She will undergo a surveillance colonoscopy.? She has a history of adenomatous polyps.? Her last colonoscopy was [address] Gurrola[address] She was explained alternatives, risks, benefits including and not withstanding bleeding, infection, sepsis, perforation, need for emergent surgery and .? She will have an ASA of 3.? I have examined the patient and the H&P has been reviewed. There are no clinicalchanges since date of exam. 01/27/23 0640 <Electronically signed by Maurilio Mcmanus DO> Cosigner Signature (if applicable): CC: Dr. Misael Molina MD; Maurilio Mcmanus DO~ Signed [facility] Work Phone: [facility]: Reason for referral (narrative)No reason for referral information availableWTriHealth [facility] Work Phone: Chief Complaint and Reason for Visit Chief Complaint COVID 19 PNEUMONIA Reason for Visit Acute dehydration Acute hypokalemia Acute hyponatremia Atrial fibrillation with rapid ventricular response COVID-19 History of diabetes mellitus Lobar pneumonia Weakness Chief Complaint COVID 19 PNEUMONIA COVID 19 PNEUMONIA COVID 19 PNEUMONIA COVID 19 PNEUMONIA COVID 19 PNEUMONIA COVID 19 PNEUMONIA COVID 19 PNEUMONIA COVID 19 PNEUMONIA COVID 19 PNEUMONIA COVID 19 PNEUMONIA COVID 19 PNEUMONIA COVID 19 PNEUMONIA COVID 19 PNEUMONIA COVID 19 PNEUMONIA COVID 19 PNEUMONIA COVID 19 PNEUMONIA COVID 19 PNEUMONIA COVID 19 PNEUMONIA COVID 19 PNEUMONIA COVID 19 PNEUMONIA COVID 19 PNEUMONIA COVID 19 PNEUMONIA COVID 19 PNEUMONIA COVID 19 PNEUMONIA COVID 19 PNEUMONIA COVID 19 PNEUMONIA COVID 19 PNEUMONIA COVID 19 PNEUMONIA sob RESP FAILURE/ HYPOXIA, UGIB, HYPOTENSION RESP FAILURE/ HYPOXIA, UGIB, HYPOTENSION Reason for Visit Acute dehydration Acute hypokalemia Acute hyponatremia Atrial fibrillation with rapid ventricular response COVID-19 Legionella pneumonia Leukocytosis Lobar pneumonia Paroxysmal A-fib Respiratory failure with hypoxia Weakness History of diabetes mellitus Acute blood loss anemia Acute respiratory failure with hypoxia Acute upper gastrointestinal bleeding Anticoagulated Hypotension Pneumonia COPD exacerbation Chief Complaint COVID 19 PNEUMONIA COVID 19 PNEUMONIA COVID 19 PNEUMONIA COVID 19 PNEUMONIA COVID 19 PNEUMONIA COVID 19 PNEUMONIA COVID 19 PNEUMONIA COVID 19 PNEUMONIA COVID 19 PNEUMONIA COVID 19 PNEUMONIA COVID 19 PNEUMONIA COVID 19 PNEUMONIA COVID 19 PNEUMONIA COVID 19 PNEUMONIA COVID 19 PNEUMONIA COVID 19 PNEUMONIA COVID 19 PNEUMONIA COVID 19 PNEUMONIA COVID 19 PNEUMONIA COVID 19 PNEUMONIA COVID 19 PNEUMONIA COVID 19 PNEUMONIA COVID 19 PNEUMONIA COVID 19 PNEUMONIA COVID 19 PNEUMONIA COVID 19 PNEUMONIA COVID 19 PNEUMONIA COVID 19 PNEUMONIA COVID 19 PNEUMONIA COVID 19 PNEUMONIA sob RESP FAILURE/ HYPOXIA, UGIB, HYPOTENSION RESP FAILURE/ HYPOXIA, UGIB, HYPOTENSION HEMORRHAGIC SHOCK, UPPER GI BLEED, PNEUMONIA HEMORRHAGIC SHOCK, UPPER GI BLEED, PNEUMONIA HEMORRHAGIC SHOCK, UPPER GI BLEED, PNEUMONIA HEMORRHAGIC SHOCK, UPPER GI BLEED, PNEUMONIA HEMORRHAGIC SHOCK, UPPER GI BLEED, PNEUMONIA HEMORRHAGIC SHOCK, UPPER GI BLEED, PNEUMONIA HEMORRHAGIC SHOCK, UPPER GI BLEED, PNEUMONIA HEMORRHAGIC SHOCK, UPPER GI BLEED, PNEUMONIA HEMORRHAGIC SHOCK, UPPER GI BLEED, PNEUMONIA HEMORRHAGIC SHOCK, UPPER GI BLEED, PNEUMONIA HEMORRHAGIC SHOCK, UPPER GI BLEED, PNEUMONIA HEMORRHAGIC SHOCK, UPPER GI BLEED, PNEUMONIA HEMORRHAGIC SHOCK, UPPER GI BLEED, PNEUMONIA HEMORRHAGIC SHOCK, UPPER GI BLEED, PNEUMONIA HEMORRHAGIC SHOCK, UPPER GI BLEED, PNEUMONIA HEMORRHAGIC SHOCK, UPPER GI BLEED, PNEUMONIA HEMORRHAGIC SHOCK, UPPER GI BLEED, PNEUMONIA HEMORRHAGIC SHOCK, UPPER GI BLEED, PNEUMONIA HEMORRHAGIC SHOCK, UPPER GI BLEED, PNEUMONIA HEMORRHAGIC SHOCK, UPPER GI BLEED, PNEUMONIA HEMORRHAGIC SHOCK, UPPER GI BLEED, PNEUMONIA HEMORRHAGIC SHOCK, UPPER GI BLEED, PNEUMONIA HEMORRHAGIC SHOCK, UPPER GI BLEED, PNEUMONIA HEMORRHAGIC SHOCK, UPPER GI BLEED, PNEUMONIA HEMORRHAGIC SHOCK, UPPER GI BLEED, PNEUMONIA HEMORRHAGIC SHOCK, UPPER GI BLEED, PNEUMONIA Reason for Visit Leukocytosis Paroxysmal A-fib Respiratory failure with hypoxia Weakness History of diabetes mellitus Acute dehydration Acute hypokalemia Acute hyponatremia Atrial fibrillation with rapid ventricular response COVID-19 Legionella pneumonia Lobar pneumonia Acute blood loss anemia Acute respiratory failure with hypoxia Acute upper gastrointestinal bleeding Anticoagulated Debility Hemorrhagic shock Hypokalemia Hypomagnesemia Hypophosphatemia Hypotension Paroxysmal A-fib Pneumonia Respiratory failure with hypoxia Urinary retention COPD exacerbation Atrial fibrillation with rapid ventricular response Chief Complaint COVID 19 PNEUMONIA COVID 19 PNEUMONIA COVID 19 PNEUMONIA COVID 19 PNEUMONIA COVID 19 PNEUMONIA COVID 19 PNEUMONIA COVID 19 PNEUMONIA COVID 19 PNEUMONIA COVID 19 PNEUMONIA COVID 19 PNEUMONIA COVID 19 PNEUMONIA COVID 19 PNEUMONIA COVID 19 PNEUMONIA COVID 19 PNEUMONIA COVID 19 PNEUMONIA COVID 19 PNEUMONIA COVID 19 PNEUMONIA COVID 19 PNEUMONIA COVID 19 PNEUMONIA COVID 19 PNEUMONIA COVID 19 PNEUMONIA COVID 19 PNEUMONIA COVID 19 PNEUMONIA COVID 19 PNEUMONIA COVID 19 PNEUMONIA COVID 19 PNEUMONIA COVID 19 PNEUMONIA COVID 19 PNEUMONIA COVID 19 PNEUMONIA COVID 19 PNEUMONIA sob RESP FAILURE/ HYPOXIA, UGIB, HYPOTENSION RESP FAILURE/ HYPOXIA, UGIB, HYPOTENSION HEMORRHAGIC SHOCK, UPPER GI BLEED, PNEUMONIA HEMORRHAGIC SHOCK, UPPER GI BLEED, PNEUMONIA HEMORRHAGIC SHOCK, UPPER GI BLEED, PNEUMONIA HEMORRHAGIC SHOCK, UPPER GI BLEED, PNEUMONIA HEMORRHAGIC SHOCK, UPPER GI BLEED, PNEUMONIA HEMORRHAGIC SHOCK, UPPER GI BLEED, PNEUMONIA HEMORRHAGIC SHOCK, UPPER GI BLEED, PNEUMONIA HEMORRHAGIC SHOCK, UPPER GI BLEED, PNEUMONIA HEMORRHAGIC SHOCK, UPPER GI BLEED, PNEUMONIA HEMORRHAGIC SHOCK, UPPER GI BLEED, PNEUMONIA HEMORRHAGIC SHOCK, UPPER GI BLEED, PNEUMONIA HEMORRHAGIC SHOCK, UPPER GI BLEED, PNEUMONIA HEMORRHAGIC SHOCK, UPPER GI BLEED, PNEUMONIA HEMORRHAGIC SHOCK, UPPER GI BLEED, PNEUMONIA HEMORRHAGIC SHOCK, UPPER GI BLEED, PNEUMONIA HEMORRHAGIC SHOCK, UPPER GI BLEED, PNEUMONIA HEMORRHAGIC SHOCK, UPPER GI BLEED, PNEUMONIA HEMORRHAGIC SHOCK, UPPER GI BLEED, PNEUMONIA HEMORRHAGIC SHOCK, UPPER GI BLEED, PNEUMONIA HEMORRHAGIC SHOCK, UPPER GI BLEED, PNEUMONIA HEMORRHAGIC SHOCK, UPPER GI BLEED, PNEUMONIA HEMORRHAGIC SHOCK, UPPER GI BLEED, PNEUMONIA HEMORRHAGIC SHOCK, UPPER GI BLEED, PNEUMONIA HEMORRHAGIC SHOCK, UPPER GI BLEED, PNEUMONIA HEMORRHAGIC SHOCK, UPPER GI BLEED, PNEUMONIA HEMORRHAGIC SHOCK, UPPER GI BLEED, PNEUMONIA HEMORRHAGIC SHOCK, UPPER GI BLEED,PNEUMONIA Reason for Visit Leukocytosis Paroxysmal A-fib Weakness History of diabetes mellitus Acute dehydration Acute hypokalemia Acute hyponatremia Atrial fibrillation with rapid ventricular response COVID-19 Legionella pneumonia Lobar pneumonia Respiratory failure with hypoxia Acute respiratory failure with hypoxia Debility Hypotension Paroxysmal A-fib Urinary retention Acute blood loss anemia Acute upper gastrointestinal bleeding Anticoagulated Atrial fibrillation with rapid ventricular response COPD exacerbation Hemorrhagic shock Hypokalemia Hypomagnesemia Hypophosphatemia Pneumonia Respiratory failure with hypoxia Aspergillosis, with pneumonia Atrial fibrillation with rapid ventricular response Debility Diabetes mellitus Encephalopathy Hematuria Hyperlipidemia Hypotension Osteoporosis Pneumonia Recurrent urinary tract infection Sepsis Upper gastrointestinal bleed Urinary retention Chronic gastritis Hemorrhagic shock Chief Complaint HEMORRHAGIC SHOCK, U PPER GI BLEED,PNEUMONIA Amb Documentation A-FIB/REF. MOLINA AFIB; cad AFIB; cad Reason for Visit Aspergillosis, with pneumonia Atrial fibrillation with rapid ventricular response Debility Encephalopathy Hyperlipidemia Osteoporosis Recurrent urinary tract infection Sepsis Chronic gastritis Hematuria Hemorrhagic shock Hypotension Pneumonia Upper gastrointestinal bleed Urinary retention CAD (coronary artery disease) Hyperlipidemia Paroxysmal A-fib Tobacco abuse Chief Complaint HEMORRHAGIC SHOCK, U PPER GI BLEED,PNEUMONIA Amb Documentation A-FIB/REF. MOLINA AFIB; cad AFIB; cad HEART CATH TEACHING/ CATH 11-11 ABNORMAL CARDIO FUNCTION STUDY ABNORMAL CARDIO FUNCTION STUDY Reason for Visit Aspergillosis, with pneumonia Atrial fibrillation with rapid ventricular response Debility Diabetes mellitus Encephalopathy Hyperlipidemia Osteoporosis Recurrent urinary tract infection Sepsis Chronic gastritis Hematuria Hemorrhagic shock Hypotension Pneumonia Upper gastrointestinal bleed Urinary retention CAD (coronary artery disease) Hyperlipidemia Paroxysmal A-fib Tobacco abuse Chief Complaint HEMORRHAGIC SHOCK, U PPER GI BLEED,PNEUMONIA Amb Documentation A-FIB/REF. MOLINA AFIB; cad AFIB; cad HEART CATH TEACHING/ CATH 11-11 ABNORMAL CARDIO FUNCTION STUDY ABNORMAL CARDIO FUNCTION STUDY H FU E ORDER Reason for Visit Aspergillosis, with pneumonia Atrial fibrillation with rapid ventricular response Debility Diabetes mellitus Encephalopathy Hyperlipidemia Osteoporosis Recurrent urinary tract infection Sepsis Chronic gastritis Hematuria Hemorrhagic shock Hypotension Pneumonia Upper gastrointestinal bleed Urinary retention CAD (coronary artery disease) Hyperlipidemia Paroxysmal A-fib Tobacco abuse Adenomatous polyps GI bleed Chief Complaint Amb Documentation A-FIB/REF. MOLINA AFIB; cad AFIB; cad HEART CATH TEACHING/ CATH 11-11 ABNORMAL CARDIO FUNCTION STUDY ABNORMAL CARDIO FUNCTION STUDY H FU E ORDER Reason for Visit CAD (coronary artery disease) Hyperlipidemia Paroxysmal A-fib Tobacco abuse Adenomatous polyps GI bleed Chief Complaint Amb Documentation A-FIB/REF. MOLINA AFIB; cad AFIB; cad HEART CATH TEACHING/ CATH 11-11 ABNORMAL CARDIO FUNCTION STUDY ABNORMAL CARDIO FUNCTION STUDY H FU E ORDER SOLIARY PULMONARY NODULE 3 M FU Reason for Visit CAD (coronary artery disease) Hyperlipidemia Paroxysmal A-fib Tobacco abuse Adenomatous polyps GI bleed CAD (coronary artery disease) Hyperlipidemia Paroxysmal A-fib Tobacco abuse Chief Complaint AFIB; cad AFIB; cad HEART CATH TEACHING/ CATH 11-11 ABNORMAL CARDIO FUNCTION STUDY ABNORMAL CARDIO FUNCTION STUDY H FU E ORDER SOLIARY PULMONARY NODULE 3 M FU Reason for Visit Adenomatous polyps GI bleed CAD (coronary artery disease) Hyperlipidemia Paroxysmal A-fib Tobacco abuse Chief Complaint AFIB; cad AFIB; cad HEART CATH TEACHING/ CATH 11-11 ABNORMAL CARDIO FUNCTION STUDY ABNORMAL CARDIO FUNCTION STUDY H FU E ORDER SOLIARY PULMONARY NODULE 3 M FU SCREENING 2 WK FU EORDERS Reason for Visit Adenomatous polyps GI bleed CAD (coronary artery disease) Hyperlipidemia Paroxysmal A-fib Tobacco abuse Anemia Eosinophilic esophagitis GI bleed Chief Complaint PULM NODULE GASTROPARESIS Solitary pulmonary nodule Chief Complaint GASTROPARESIS Solitary pulmonary nodule 6 M FU Reason for Visit CAD (coronary artery disease) Hyperlipidemia Paroxysmal A-fib Tobacco abuse Chief Complaint 4 MO FU LUNG NODULE Reason for Visit Anemia Irritable bowel syndrome with diarrhea Eosinophilic esophagitis GI bleed Reason for Visit Admit Date Eosinophilic esophagitis November 24, 025 5:36am GI bleed November 24, 2024 5 :36am Chief Complaint Admit Date 9 M FU June 16, 2025 11 :20am Reason for Visit Admit Date Anticoagulant long-term use June 16, 2025 11:20am CAD (coronary artery disease) May 11:20am Paroxysmal A-fib June 16, 2025 11 :20am Advance Directives No Advanced Directives Records Found Advance Directive Response Recorded Date/ Time Living Will No May 18, 2022 4:28pm Power of Human Factors Advisor Lead No May 18 4:28pm Advance Directive Response Recorded Date/ Time Living Will No June 06 2:16pm Power of Human Factors Advisor Lead No June 06 022 2:16pm Advance Directive Response Recorded Date/ Time Living Will No June 06 8:50pm Power of Human Factors Advisor Lead No June 06 022 8:50pm Advance Directive Response Recorded Date/ Time Living Will No June 19 4:12pm Power of Human Factors Advisor Lead No June 19, 2022 4:12pm Advance Directive Response Recorded Date/ Time Living Will No June 19 022 3:12pm Power of Human Factors Advisor Lead No June 19, 2022 3:12pm Advance Directive Response Recorded Date/ Time Advance Directives on File No [email or web address] 8:00am Name of Medical Power of Human Factors Advisor Lead Brandon (Daina dao) November 11, 2022 8:00am Advance Directives Yes November 11, 2022 8:00am Living Will Yes November 11 8:00am Power of Human Factors Advisor Lead Yes November 11, 2022 8:00am Advance Directive Response Recorded Date/ Time Advance Directives on File No Juliette ry 2022 9:00am Name of Medical Power of Human Factors Advisor Lead Brandon (Daina r) November 11, 2022 9:00am Name of Medical Power of Human Factors Advisor Lead DAUGHTER January 22, 2023 3:00pm Advance Directives Yes November 11, 2022 9:00am Living Will Yes January 22, 2023 3:00pm Power of Human Factors Advisor Lead Yes January 22 3:00pm Advance Directive Response Recorded Date/ Time Advance Directives Yes November 11, 2022 9:00am Living Will Yes January 22, 2023 3:00pm Power of Human Factors Advisor Lead Yes January 22 3:00pm Advance Directive Response Recorded Date/ Time Advance Directives Yes November 11, 2022 8:00am Living Will No July 22 12:15pm Power of Human Factors Advisor Lead Yes July 22, 12:15pm Advance Directive Response Recorded Date/ Time Living Will Yes November 22 11:23am Do you have a Healthcare Power of Human Factors Advisor Lead? Yes November 22, 2024 11:23am Name of Medical Power of Human Factors Advisor Lead DAUGHTER November 22, 2024 11:23am Advance Directives Yes November 11, 2022 9:00am Advance Directive Response Recorded Date/ Time Advance Directives Yes November 11, 2022 9:00am Summary Purpose Family History No Family History Records Found Additional Source Comments Goals (unrecognized section and content) Goals may be documented in a n alternate sectionGoals may be documented in an alternate sectionGoals may be documented in an alternate sectionGoals may be documented in an alternate sectionGoals may be documented in an alternate sectionGoals may be documented in an alternate sectionGoals may be documented in an alternate sectionGoals may be documented in an alternate sectionGoals may be documented in an alternate section Care Teams (unrecognized sec tion and content) Team Status: Active Member Role Status Dates Dr. Misael Molina MD Family Provider Active Dr. Misael Molina MD Primary Care Provider Active Team Status: Inactive Member Role Status Dates Dr. Misael Molina MD Primary Care Provider, Referring Provider Active Dr. Misael Daniles MD Attending Provider Active Team Status: Active Member Role Status Dates Dr. Misael Molina MD Primary Care Provider Active Malena Malik Attending Provider Active Team Status: Active Member Role Status Dates Dr. Misael Molina MD Primary Care Provider Active Dr. Misael Daniels MD Attending Provid er, Referring Provider, Other Provider Active Team Status: Inactive Member Role Status Dates Dr. Misael Molina MD Primary Care Provider, Referring Provider Active Malena Malik Attending Provider Active Team Status: Inactive Member Role Status Dates Dr. Misael Molina MD Primary Care Provider Active Dr. Art Wagner MD Admit Provider, Attending Provid er Active Dr. Alberta Browne MD Other Provider Active Team Status: Inactive Member Role Status Dates Dr. Misael Molian MD Primary Care Provider Active Dr. Misael Daniels MD Attending Provider, Referring Provider Active Team Status: Active Member Role Status Dates Dr. Misael Molina MD Primary Care Provider Active Dr. Misael Daniels MD Attending Provider, Referring Provider Active Team Status: Inactive Member Role Status Dates Dr. Misael Molina MD Primary Care Provider, Referring Provider Active Dr. Maurilio Mcmanus DO Attending Provider Active Team Status: Active Member Role Status Dates Dr. Misael Molina MD Primary Care Provider Active Dr. Misael Daniels MD Attending Provider Active Team Status: Inactive Member Role Status Dates Dr. Misael Molina MD Primary Care Provider Active Dr. Misael Daniels MD Attending Provider Active Team Status: Inactive Member Role Status Dates Dr. Misael Molina MD Primary Care Provi stefania, Attending Provider, Referring Provider Active Team Status: Inactive Member Role Status Dates Dr. Misael Molina MD Primary Care Provider, Referring Provider Active Lenka Ritchie PROFESSOR OF PATHOLOGY, PROFESSOR OF PATHOLOGY-C Attending Provider Active Team Status: Inactive Member Role Status Dates Dr. Misael Molina MD Primary Care Provider Active Dr. Dax Terry MD Attending Provider, Referrin g Provider Active Team Status: Active Member Role Status Dates Dr. Misael Molina MD Primary Care Provider, Referring Provider Active Dr. Maurilio Mcmanus DO Attending Provider, Other Prov ider Active Team Status: Active Member Role Status Dates Dr. Misael Molina MD Primary Care Provider Active Dr. Dax Terry MD Attending Provider, Referrin g Provider Active Team Status: Active Member Role Status Dates Dr. Misael Molina MD Primary Care Provider Active Dr. Maurilio Mcmanus DO Attending Provider, Referring Provider Active Team Status: Inactive Member Role Status Dates Dr. Misael Molina MD Primary Care Provider Active Dr. Maurilio Mcmanus DO Attending Provider, Referring Provider Active Team Status: Active Member Role Status Dates Dr. Misael Molina MD Primary Care Provider Active Team Status: Inactive Member Role Status Dates Dr. Misael Molina MD Primary Care Provider Active Start: November 24, 2024 End: November 24, 2024 Dr. Misael Molina MD Referring Provider Active Start: November 24, 2024 End: November 24, 2024 Dr. Maurilio Mcmanus DO Attending Provider Active Start: November 24, 2024 End: November 24, 2024 Team Status: Active Member Role Status Dates Dr. Misael Molina MD Primary Care Provider Active Start: November 24, 2024 Dr. Misael Molina MD Referring Provider Active Start: November 24, 2024 Dr. Maurilio Mcmanus DO Attending Provider Active Start: November 24, 2024 Dr. Maurilio Mcmansu DO Other Provider Active St art: November 24, 2024 Team Status: Inactive Member Role Status Dates Dr. Misael Molina MD Primary Care Provider Active Start: January 26, 2025 End: January 26, 2025 Dr. Misael Molina MD Attending Provider Active Start: January 26, 2025 End: January 26, 2025 Dr. Misael Molina MD Referring Provider Active Start: January 26, 2025 End: January 26, 2025 Team Status: Active Member Role/Relationship Status Dates Dr. Misael Molina MD Primary Care Provider Active Team Status: Inactive Member Role/Relationship Status Dates Dr. Misael Molina MD Primary Care Provider Active Start: April 18, 2025 Dr. Alberta Browne MD Attending Provider Active Start: April 18, 2025 Team Status: Inactive Member Role/Relationship Status Dates Dr. Misael Molina MD Primary Care Provider Active Start: June 16, 2025 End: June 16, 2025 Dr. Misael Molina MD Referring Provider Active Start: June 16, 2025 End: June 16, 2025 Dr. Aniket Cheema MD Attending Provider Active Start: June 16, 2025 End: June 16, 2025 Team Status: Inactive Member Role/Relationship Status Dates Dr. Misael Molina MD Primary Care Provider Active Start: June 16, 2025 End: June 16, 2025 Dr. Aniket Cheema MD Attending Provider Active Start: June 16, 2025 End: June 16, 2025 INFORMATION SOURCE (unrecogn ized section and content) DATE CREATED AUTHOR 06/24/2025 [facility] FOR RECORDS PERTAINING TO PATIENTS WHO ARE OR HAVE BEEN ENROLLED IN A CHEMICAL DEPENDENCY/SUBSTANCEABUSE PROGRAM, SOME INFORMATION MAY BE OMITTED. This clinical summary was aggregated from multiple sources. Caution should be exercised in using it in the provision of clinical care. This summary normalizes information from multiple sources, and as a consequence, information in this document may materially change the coding, format and clinical context of patient data. In addition, data may be omitted in some cases. CLINICAL DECISIONS SHOULD BE BASED ON THE PRIMARY CLINICAL RECORDS. [facility] [employer] [facility] provides no warranty or guarantee of the accuracy or completeness of information in this document.
--- NOTE | 2025-06-24 15:25 | EX.ED.DYSGE1 ---
HPI History of Present Illness Chief Complaint: GI Bleed Narrative Narrative: Chief complaint and HPI: 75-year-old female with past medical history of eosinophilic esophagitis, jejunal ulcer with previous GI bleed, CAD, atrial fibrillation on Eliquis, DM presents for evaluation of hematemesis and dark tarry stools. Patient states yesterday she developed weakness. Today had 4 episodes of hematemesis. She states she feels that they were more coffee-ground however her daughter in the room states one of them was bright red. She has a history of ulcers. Patient states she takes iron pills at baseline and always has slightly dark stools. She states now they are darker in color and tarry. She denies any fever, chills, shortness of breath, chest pain, abdominal pain, nausea, vomiting, dysuria. States her last dose of Eliquis was yesterday. Associated symptoms are fatigue and weakness, Review of systems: See HPI Medications: As listed on the chart Allergies: As listed on the chart PFSH: Per chart Vital signs: As listed on the chart. Reviewed. Physical exam: Gen: A&O x3 Head: Normocephalic, atraumatic Eyes: No sclera icterus, conjunctiva clear ENT: Dry mucous membranes Neck: Trachea midline, No JVD CV: tachycardic, irregular irregular rhythm, no murmurs, no peripheral edema Resp: Lungs CTA BL, no w/r/c GI: Abd soft, non-distended, non-tender, no r/r/g Rectal: Normal external examination. No evidence of hemorrhoids or fissures. Normal tone and sensation. No masses, fluctuance, or tenderness. No pain out of proportion. + Stool black and tarry Musc: Full ROM, no deformity Skin: Warm, dry, pale Neuro: Alert, oriented, grossly intact, sensation intact Psych: Cooperative, appropriate mood and affect [facility] Medical History Anxiety Bladder disease Back pain On home oxygen therapy Iatrogenic pneumothorax Legionnaires' disease Wears glasses Wears partial dentures Ambulates with cane Arthritis Anemia Low iron Dietary restriction History of diverticulitis History of ulceration History of GI bleed Gastric reflux Former smoker Emphysema, unspecified Shortness of breath on exertion History of echocardiogram History of stress test Cardiology follow-up encounter Hypertension History of atrial fibrillation History of left heart catheterization (LHC) (~11/11/22) Atherosclerotic heart disease of [place] coronary artery without angina pectoris Abnormal stress test Type 1 diabetes Tobacco abuse Hematuria Diabetes mellitus Paroxysmal A-fib History of diabetes mellitus COVID-19 High cholesterol Diabetes Home Medications ?Medication ?Instructions ?Recorded ?Last Taken ?Type alendronate 70 mg tablet 70 mg PO MO Osteoporosis 05/18/22 11/23/24 History polysaccharide iron complex 150 mg 150 mg PO DAILY anemia 30 days #30 07/30/22 11/20/24 Rx iron capsule (Ferrex) caps cholecalciferol (vitamin D3) 50 50 mcg PO DAILY supplement 09/23/22 11/23/24 History mcg (2,000 unit) tablet metoprolol tartrate 25 mg tablet 6.25 mg PO BIDCM afib 09/23/22 11/24/24 History metformin 1,000 mg tablet 1,000 mg PO BID 07/06/24 11/23/24 History midodrine 5 mg tablet 10 mg PO BID blood pressure 07/06/24 11/24/24 History empagliflozin 10 mg tablet 10 mg PO DAILY 11/22/24 11/20/24 History (Jardiance) potassium chloride 20 mEq 20 meq PO DAILY supplement 11/22/24 11/23/24 History tablet,extended release(part/cryst) (Klor-Con M) sertraline 25 mg tablet 25 mg PO DAILY 11/22/24 11/24/24 History cholestyramine (with sugar) 4 gram 4 g PO BID #378 grams 11/24/24 Unknown Rx oral powder apixaban 5 mg tablet (Eliquis) 5 mg PO BID [facility] 01/23/25 Unknown Rx Napoleon Dugs #180 tabs atorvastatin 40 mg tablet 20 mg (1/2 x 40 mg) PO QHS 02/21/25 Unknown Rx Cholestrol #30 tabs Allergy/AdvReac Type Severity Reaction Status Date / Time Sulfa (Sulfonamide Allergy Unknown GI issues Verified 06/24/25 14:31 Antibiotics) Family History Uncle Heart disease Uncle Heart disease Surgical History History of cardiac catheterization Hx of esophagogastroduodenoscopy Social History household members: spouse Smoking Status: Former smoker alcohol intake: never substance use type: does not use caffeine: Yes Type: coffee Number of servings: 2 EXAM Physical Exam Const Vital Signs: 06/24/25 14:31 06/24/25 14:32 06/24/25 15:31 Temperature 98 F Temperature Source Oral Pulse Rate 162 H 164 H 122 H Respiratory Rate 18 26 H Blood Pressure 102/87 H 84/65 L Blood Pressure Mean 92 71 Blood Pressure Source Blood Pressure Position Blood Pressure Location Pulse Ox 98 92 Oxygen Delivery Method Room Air Oxygen Flow Rate (L/min) 2 06/24/25 16:00 06/24/25 16:14 06/24/25 16:29 Temperature 98.3 F 99.1 F Temperature Source Oral Oral Pulse Rate 115 H 109 H 103 H Respiratory Rate 20 H 20 H 13 Blood Pressure 110/74 115/76 107/71 Blood Pressure Mean 86 89 83 Blood Pressure Source Monitor Monitor Blood Pressure Position Semi-Fowlers Semi-Fowlers Blood Pressure Location Left Arm Left Arm Pulse Ox 100 100 100 Oxygen Delivery Method Nasal Cannula Nasal Cannula Nasal Cannula Oxygen Flow Rate (L/min) 2 2 2 06/24/25 16:44 06/24/25 16:58 Temperature 98.3 F 98.3 F Temperature Source Pulse Rate 96 96 Respiratory Rate 14 14 Blood Pressure 112/68 112/68 Blood Pressure Mean 82 Blood Pressure Source Blood Pressure Position Blood Pressure Location Pulse Ox 100 100 Oxygen Delivery Method Oxygen Flow Rate (L/min) 2 MDM MDM MDM Narrative Medical decision making narrative: 75-year-old female with past medical history of eosinophilic esophagitis, jejunal ulcer with previous GI bleed, CAD, atrial fibrillation on Eliquis, DM presents for evaluation of hematemesis and dark tarry stools. Patient states she has a previous history of GI bleed secondary to ulcer. I reviewed the previous GI note on chart review. On chart review, patient has a previous history of a GI bleed in May 2022. Was placed on PPI and octreotide drip. Was treated for acute hemorrhagic shock. Had an EGD on 06/11/2022. Showed esophagitis with 2 nonbleeding diverticulum as well as an ulcer in the jejunum. She had a repeat EGD and colonoscopy 01/2023 that showed mucosal changes suspicious for EOE and bile gastritis. November 2024 patient had EGD performed by Dr. Mcmanus. Mild Schatzki ring. Medium size hiatal hernia. Bile gastritis. Erythematous duodenopathy. She had a colonoscopy that showed rectal prolapse. Diverticulosis. Congested mucosa in the colon. Differential diagnosis includes but is not limited to PUD, gastritis, supratherapeutic INR, dehydration, anemia, lower GI bleed, dehydration, electrolyte abnormality. On presentation, patient is tachycardic. I do suspect that her tachycardia is likely in response to her bleeding. NS bolus ordered and will monitor heart rate. Patient may need blood pending hemoglobin. Protonix bolus and Protonix drip ordered. GI bleed workup ordered. Dr. Mcmanus consulted and patient was discussed. Recommend CTA abdomen and pelvis to assess if bleeding is from jejunum. This was ordered. CBC with leukocytosis of 23.5. Hemoglobin 10.4. Patient's baseline is about 12. Patient has thrombocytosis 481. Coagulation panel unremarkable. CMP without EBONIE. Patient does have elevated BUN of 51 which is consistent with upper GI bleed. No transaminitis. On reevaluation, patient's tachycardia is improving however she is hypotensive with SBP in the 80s. Concern is for hemorrhagic shock despite current hemoglobin being 10.4. Trauma blood ordered for transfusion with Rocephin. Dr. Mcmanus reconsulted and patient discussed. No need for CTA. Plan will be to take to the OR for endoscopy. No need for Eliquis reversal at this time. Patient and family confirmed understanding of the plan. Hospitalist service was contacted and patient was discussed. They accepted admission. Troponin unremarkable. BNP unremarkable. Lipase unremarkable. Lactic acid 4.9. Patient receiving blood. Patient's vitals improving with blood. No longer hypotensive. Tachycardia improved. Patient transferred to the OR. Chest x-ray and UA was not obtained prior to transfer. EKG: Interpreted by me/EM physician: EKG shows sinus tachycardia with heart rate of 136. 35 minutes of critical care time utilized in managing the patient. This is due to high probability of and deterioration of the patient based on the patient's condition and excludes any separately billable procedures. Impression: 1. Hemorrhagic shock secondary to upper GI bleed 2. Acute on chronic anemia 3. Thrombocytosis 4. History of atrial fibrillation on anticoagulation, Eliquis 5. Leukocytosis, likely reactive 6. Lactic acidosis likely secondary to #1 Lab Data Labs: Laboratory Results - last 24 hr 06/24/25 06/24/25 14:40 15:26 WBC 23.5 H RBC 3.50 L Hgb 10.4 L Hct 33.8 L MCV 96.6 MCH 29.7 MCHC 30.8 L RDW Std Deviation 51.4 H RDW Coeff of Palak 14.6 Plt Count 481 H MPV 10.8 Immature Gran % (Auto) 0.900 Neut % (Auto) 85.4 H Lymph % (Auto) 9.6 L [place] % (Auto) 3.8 Eos % (Auto) 0.0 Baso % (Auto) 0.3 Absolute Neuts (auto) 20.1 H Absolute Lymphs (auto) 2.24 Nucleated RBC % 0 Platelet Estimate ADEQUATE RBC Morphology NORM C+C PT 14.8 INR 1.1 APTT 25.3 Sodium 139 Potassium 4.6 Chloride 100 Carbon Dioxide 18.6 L Anion Gap 21 H BUN 51 H Creatinine 0.88 Estim Creat Clear Calc 55.37 Est GFR (MDRD) Non-Af 69 BUN/Creatinine Ratio 58.1 H Glucose 217 H Lactic Acid 4.9 H* Calcium 9.6 Total Bilirubin 0.31 Direct Bilirubin 0.13 AST 22 ALT 20 Alkaline Phosphatase 71 Troponin T High Sens 12 NT pro BNP II 528 Total Protein 6.7 Albumin 4.0 Globulin 2.8 Lipase 15 Blood Type O POSITIVE Antibody Screen NEGATIVE Crossmatch See Detail Discharge Plan Triage Chief Complaint: GI Bleed ED Provider: Jesús Trejo Dx/Rx/DC Orders Primary Care Provider: Misael Molina
[2025-06-24] MEDS: 0.9% Normal Saline (1000mL) 1,000 ML 1000 ML IV (15:26)
[2025-06-24 15:28] LABS: Hematocrit 33.8 % (37-47); Hemoglobin 10.4 g/dL (12.0-15.0); Immature Granulocytes Count 0.200 X10^3/uL (0.0-0.0); Mean Corp Hgb Conc 30.8 g/dL (32-36); Mean Corpuscular Volume 96.6 fL (81-99); Mean Platelet Vol. 10.8 fl (6.2-12.0); NRBC Flagged by Analyzer 0 % (0-5); POSITIVE DIFFERENTIAL YES; Platelet Count 481 K/mm3 (150-450); RBC Distribution Width CV 14.6 % (11.6-14.6); RBC Distribution Width SD 51.4 fl (35.1-43.9); Red Blood Count 3.50 M/mm3 (4.2-5.4); White Blood Count 23.5 K/mm3 (4.4-11.0)
[2025-06-24 15:36] LABS: Prothrombin Time (Protime)PT. 14.8 SECONDS (11.7-14.9)
[2025-06-24 15:37] LABS: Partial Thromboplast Time 25.3 Seconds (24.1-36.2)
[2025-06-24 15:44] LABS: Differential Indicated SCAN CRITERIA MET
[2025-06-24] MEDS: Pantoprazole Sodium 80 MG in 0.9% Normal Saline (100mL Bag) 80 ML 10 MG CONT INF ×2 (15:44→16:28)
[2025-06-24 15:45] LABS: Red Cell Morphology NORM C+C NORMAL (NORM C&C)
[2025-06-24 15:50] LABS: AST(SGOT) 22 U/L (<=31); Alanine Aminotransfer ALT/SGPT 20 U/L (<=34); Albumin, Serum 4.0 g/dL (3.4-4.8); Alkaline Phosphatase 71 U/L (35-104); Anion Gap 21 (5-15); BUN 51 mg/dL (4-19); BUN/Creat Ratio 58.1 RATIO (10-20); Bilirubin, Direct 0.13 mg/dL (0.00-0.30); Calcium,Total 9.6 mg/dL (7.6-11.0); Carbon Dioxide 18.6 mmol/L (21.0-32.0); Chloride 100 mmol/L (98-108); Estimated Creatinine Clearance 55.37 ml/min (50-250); Globulin 2.8 g/dL (2.2-4.2); Glucose 217 mg/dL (70-99); Lipase 15 U/L (13-75); Potassium 4.6 mmol/L (3.3-5.1); Pro- Brain NATRIURETIC PEPTIDE 528 pg/mL (<=900)
[2025-06-24] MEDS: Pantoprazole Sodium 40 MG in 0.9% Normal Saline (100mL MB+) 100 ML 300 MG IV (15:56)
[2025-06-24 16:03] LABS: Troponin T High Sensitivity 12 ng/L (<=14)
--- NOTE | 2025-06-24 16:23 | ED.RN ---
Kr. Barker initially gave verbal order for 2 units trauma blood to be given. blood was obtained. As this RN was initiating blood, Dr. Barker was at bedside to reassess patient and changed order to type and screen one unit of blood. Dr. Barker stated that Hemoglobin came back at 10, and vitals had improved. Second unit of trauma blood returned to blood bank by Yara Abdullahi.
--- NOTE | 2025-06-24 16:29 | ED.RN ---
Dr Barker notified of critical lactic
--- NOTE | 2025-06-24 16:45 | ED.RN ---
[facility] hospitalist coming to pt before pt is taken to pacu, pacu called this nurse and requested pt be brought down. pt will be admitted to the floor after procedure
--- NOTE | 2025-06-24 16:57 | PCM.PRE.AN2 ---
ASA Classification* ASA Classification ASA Classification: 3 and E Assessment & Plan Anesthesia* Anesthesia Assessment Anesthesia Assessment: Discussed sedation and/or anesthesia options, risks, benefits, and alternatives with patient/parents/legal guardian/POA. Questions invited. The patient/parents/legal guardian/POA seems to understand and agrees to proceed with anesthesia plan. Reviewed the physical assessment, medical history, allergy history and patient home medications list prior to surgery/procedure/anesthetic and documented any changes. Performed airway and anesthesia risk assessments. Anesthesia Type Anesthesia Type: General Anesthesia Focused Assessment* Temperature: 98.3 F Pulse Rate: 96 Blood Pressure: 112/68 Respiratory Rate: 14 Pulse Ox: 100 Oxygen Flow Rate (L/min): 2 Airway Assessment Mouth opens: >3 cm Mallampati Score: II Labs Anesthesia Preop lab: CBC WBC 23.5 K/mm3 (4.4-11.0) H 06/24/25 14:40 06/24/25 RBC 3.50 M/mm3 (4.2-5.4) L 06/24/25 14:40 06/24/25 Hgb 10.4 g/dL (12.0-15.0) L 06/24/25 14:40 06/24/25 Hct 33.8 % (37-47) L 06/24/25 14:40 06/24/25 Plt Count 481 K/mm3 (150-450) H 06/24/25 14:40 06/24/25 CHEMISTRY Potassium 4.6 mmol/L (3.3-5.1) 06/24/25 14:40 06/24/25 Sodium 139 mmol/L (133-145) 06/24/25 14:40 06/24/25 Magnesium 2.1 mg/dL (1.6-2.6) 06/18/22 05:06/18/22 Phosphorus 2.6 mg/dL (2.5-4.9) 06/18/22 05:06/18/22 BUN 51 mg/dL (4-19) H 06/24/25 14:40 06/24/25 Creatinine 0.88 mg/dL (0.70-1.20) 06/24/25 14:40 06/24/25 Glucose 217 mg/dL (70-99) H 06/24/25 14:40 06/24/25 POC Glucose 206 mg/dL (74-106) H 11/24/24 06:04 11/24/24 TSH 0.22 uIU/mL (0.358-3.74) L 05/19/22 05:05 05/19/22 COAG PT 14.8 SECONDS (11.7-14.9) 06/24/25 14:40 06/24/25 Pre-Assessment Diagnosis/Proposed Procedure Planned Operative Procedure(s): EGD for acute upper bleed Anesthesia History 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 When Was Last Pacemaker Check QUESTION #4 FULL TEXT: You/Your Family Experience fever (hyperthermia) with Anesthesia Last Oral Intake Last Oral intake: Last Oral Intake NPO since Meds taken in AM with sips of water? 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 Female HX of Motion Sickness HX of N/V After Surgery Non-Smoker Duration of Surgery greater than 60 minutes Number of Risk Factors PONV Score Height & Weight Height & Weight: Anesthesia: Height & Weight Height 5 ft 7 in 06/24/25 14:32 Weight: 68 kg 06/24/25 14:32 Body Mass Index (BMI) 23.4 06/24/25 14:32 Respiratory Assessment Respiratory Assessment - dry chain worker: Respiratory Tract Infection Hx - dry chain worker Hx Respiratory Tract Infection No 11/22/24 10:23 STOP Sleep Apnea STOP Sleep Apnea - dry chain worker: STOP Sleep Apnea - dry chain worker Hx Hypertension Yes: CONTROLLED WITH MED 11/22/24 10:23 Hx Sleep Apnea No 11/24/24 07:45 CPAP BIPAP Do you snore loudly (louder than talking or can be heard Do you often feel tired/ fatigued/ sleepy during daytime? Has anyone observed you stop breathing during sleep? STOP Results QUESTION #5 FULL TEXT : Do you snore loudly (louder than talking or can be heard through closed doors)? Tobacco Use History Tobacco Use History - dry chain worker: Tobacco Use History - dry chain worker Tobacco Use Smoking Status Former smoker 06/24/25 14:42 Hx Tobacco Use No 11/22/24 10:23 Years Smoking Packs Smoked per Day Smoking Cessation Date was Yes - quit smoking within 15 06/24/25 14:42 within the last 15 years years Hx Smoking Cessation Date 05/18/22 06/24/25 14:42 Hx Smoking Cessation No 06/24/25 14:42 Counseling Hematologic Medial History Hematologic Hx - dry chain worker: Hematologic Medical Hx - [employer] Hx of Blood Transfusion Hx of Transfusion in last 3 Months Date of Last Transfusion (if within last 3 months) Ever experience any problems with transfusion(s)? Specify any problems Hx of Preganancy in last 3 Months Nurse Filling Out Transfusion & Questions: Date: Time: Patient unable to answer at this time (ie. confused, unrespo /Reproduction History /Reproductive History - dry chain worker: /Reproductive Hx- dry chain worker Hx Now Gestational Age (in weeks): EDC: Hx Hx Para Hx Section SAB No 11/22/24 10:23 Active Medications Active Medications: Current Medications Generic Name Dose Route Start Last Admin Trade Name Freq PRN Reason Stop Dose Admin Pantoprazole Sodium 80 mg/ 100 mls @ 10 mls/hr 06/24/25 15:10 06/24/25 16:28 Sodium Chloride CONT INF 10 mls/hr Q10H KOBE Administration PFSH Medical History Anxiety Bladder disease Back pain On home oxygen therapy Iatrogenic pneumothorax Legionnaires' disease Wears glasses Wears partial dentures Ambulates with cane Arthritis Anemia Low iron Dietary restriction History of diverticulitis History of ulceration History of GI bleed Gastric reflux Former smoker Emphysema, unspecified Shortness of breath on exertion History of echocardiogram History of stress test Cardiology follow-up encounter Hypertension History of atrial fibrillation History of left heart catheterization (LHC) (~11/11/22) Atherosclerotic heart disease of [place] coronary artery without angina pectoris Abnormal stress test Type 1 diabetes Tobacco abuse Hematuria Diabetes mellitus Paroxysmal A-fib History of diabetes mellitus COVID-19 High cholesterol Diabetes Home Medications ?Medication ?Instructions ?Recorded ?Last Taken ?Type alendronate 70 mg tablet 70 mg PO MO Osteoporosis 05/18/22 11/23/24 History polysaccharide iron complex 150 mg 150 mg PO DAILY anemia 30 days #30 07/30/22 11/20/24 Rx iron capsule (Ferrex) caps cholecalciferol (vitamin D3) 50 50 mcg PO DAILY supplement 09/23/22 11/23/24 History mcg (2,000 unit) tablet metoprolol tartrate 25 mg tablet 6.25 mg PO BIDCM afib 09/23/22 11/24/24 History metformin 1,000 mg tablet 1,000 mg PO BID 07/06/24 11/23/24 History midodrine 5 mg tablet 10 mg PO BID blood pressure 07/06/24 11/24/24 History empagliflozin 10 mg tablet 10 mg PO DAILY 11/22/24 11/20/24 History (Jardiance) potassium chloride 20 mEq 20 meq PO DAILY supplement 11/22/24 11/23/24 History tablet,extended release(part/cryst) (Klor-Con M) sertraline 25 mg tablet 25 mg PO DAILY 11/22/24 11/24/24 History cholestyramine (with sugar) 4 gram 4 g PO BID #378 grams 11/24/24 Unknown Rx oral powder apixaban 5 mg tablet (Eliquis) 5 mg PO BID [facility] 01/23/25 Unknown Rx Napoleon Dugs #180 tabs atorvastatin 40 mg tablet 20 mg (1/2 x 40 mg) PO QHS 02/21/25 Unknown Rx Cholestrol #30 tabs Allergy/AdvReac Type Severity Reaction Status Date / Time Sulfa (Sulfonamide Allergy Unknown GI issues Verified 06/24/25 14:31 Antibiotics) Family History Uncle Heart disease Uncle Heart disease Surgical History History of cardiac catheterization Hx of esophagogastroduodenoscopy Social History household members: spouse Smoking Status: Former smoker alcohol intake: never substance use type: does not use caffeine: Yes Type: coffee Number of servings: 2 Review of Systems (Anesthesia) ROS Narrative System reviewed and no additional complaints, except as documented.
--- NOTE | 2025-06-24 17:00 | PCM.HP.STD ---
HPI - General General Date of Service: 06/24/25 Chief Complaint: Vomiting blood and dark tarry stools HPI Narrative CARMEN MILLER, is a 75-year-old female history of eosinophilic esophagitis, jejunal ulcer with previous GI bleed, coronary artery disease, A-fib on Eliquis, diabetes, anxiety who presented to [facility] ED 06/24/2025 due to hematemesis and dark tarry stools. Developed weakness yesterday and then today had 4 episodes of hematemesis mix of coffee-ground and bright red. Has a history of ulcers so she takes iron pills at baseline and always has slightly dark stools however now they are darker in color and tarry. No abdominal pain, nausea, vomiting. Last dose of Eliquis was yesterday. In the ED initially heart rate 162, blood pressure 102/87, respiratory rate 18 and pulse ox 98% on room air. Blood pressure did dip to 84/65 with a respiratory rate of 26 and given her instability with evidence of bleeding she was given trauma blood with improvement to 115/76 and heart rate decreased to 109. CBC revealed 23.5 white count, hemoglobin of 10.4 with most recent hemoglobin 12.7 on 06/16/2025, platelet count of 481, BMP with bicarb of 18, gap of 21, BUN of 51 with a creatinine 0.88 and a glucose of 217. INR 1.1, lipase 15, liver panel unremarkable, troponin 12, proBNP 528. Lactic acid 4.9. Patient typed and crossed and GI contacted who recommended taking patient urgently for scope and then admission under hospitalist service. Hospitalist contacted for admission. Patient evaluated at bedside. Reports she feels tired and her mouth is dry but has not had any dark tarry bowel movements or hematemesis since arrival, not particularly complaining of abdominal pain. Reports some low back pain after a fall yesterday, she is not remember what happened. Denies any bladder changes, no numbness or tingling or focal weakness in extremities. Did not hit her head and has no headache. [facility] Medical History Anxiety Bladder disease Back pain On home oxygen therapy Iatrogenic pneumothorax Legionnaires' disease Wears glasses Wears partial dentures Ambulates with cane Arthritis Anemia Low iron Dietary restriction History of diverticulitis History of ulceration History of GI bleed Gastric reflux Former smoker Emphysema, unspecified Shortness of breath on exertion History of echocardiogram History of stress test Cardiology follow-up encounter Hypertension History of atrial fibrillation History of left heart catheterization (LHC) (~11/11/22) Atherosclerotic heart disease of enterprise coronary artery without angina pectoris Abnormal stress test Type 1 diabetes Tobacco abuse Hematuria Diabetes mellitus Paroxysmal A-fib History of diabetes mellitus COVID-19 High cholesterol Diabetes Home Medications ?Medication ?Instructions ?Recorded ?Last Taken ?Type alendronate 70 mg tablet 70 mg PO MO Osteoporosis 05/18/22 11/23/24 History polysaccharide iron complex 150 mg 150 mg PO DAILY anemia 30 days #30 07/30/22 11/20/24 Rx iron capsule (Ferrex) caps cholecalciferol (vitamin D3) 50 50 mcg PO DAILY supplement 09/23/22 11/23/24 History mcg (2,000 unit) tablet metoprolol tartrate 25 mg tablet 6.25 mg PO BIDCM afib 09/23/22 11/24/24 History metformin 1,000 mg tablet 1,000 mg PO BID 07/06/24 11/23/24 History midodrine 5 mg tablet 10 mg PO BID blood pressure 07/06/24 11/24/24 History empagliflozin 10 mg tablet 10 mg PO DAILY 11/22/24 11/20/24 History (Jardiance) potassium chloride 20 mEq 20 meq PO DAILY supplement 11/22/24 11/23/24 History tablet,extended release(part/cryst) (Klor-Con M) sertraline 25 mg tablet 25 mg PO DAILY 11/22/24 11/24/24 History cholestyramine (with sugar) 4 gram 4 g PO BID #378 grams 11/24/24 Unknown Rx oral powder apixaban 5 mg tablet (Eliquis) 5 mg PO BID [facility] 01/23/25 Unknown Rx Napoleon Dugs #180 tabs atorvastatin 40 mg tablet 20 mg (1/2 x 40 mg) PO QHS 02/21/25 Unknown Rx Cholestrol #30 tabs Allergy/AdvReac Type Severity Reaction Status Date / Time Sulfa (Sulfonamide Allergy Unknown GI issues Verified 06/24/25 14:31 Antibiotics) Family History Uncle Heart disease Uncle Heart disease Surgical History History of cardiac catheterization Hx of esophagogastroduodenoscopy Social History household members: spouse Smoking Status: Former smoker alcohol intake: never substance use type: does not use caffeine: Yes Type: coffee Number of servings: 2 ROS ROS Narrative General: Denies fever/chills HENT: Denies headache, denies stuffy nose, denies sore throat, reports dry mouth EYES: Denies changes in vision Resp: Denies cough, denies shortness of breath Cardiac: Denies chest pain GI: Denies abdominal pain, had dark tarry stools and hematemesis : Denies changes in urination Extremity: Denies swelling MSK: Feels generally weak Neuro: Denies any numbness/tingling Heme: Hematemesis and dark tarry stools Skin: Denies rashes Psychiatric: No complaints voiced Vital Signs Vital Signs Vital Signs: 06/24/25 14:31 06/24/25 14:32 06/24/25 15:31 Temperature 98 F Temperature Source Oral Pulse Rate 162 H 164 H 122 H Respiratory Rate 18 26 H Blood Pressure 102/87 H 84/65 L Blood Pressure Mean 92 71 Blood Pressure Source Blood Pressure Position Blood Pressure Location Pulse Ox 98 92 Oxygen Delivery Method Room Air Oxygen Flow Rate (L/min) 2 06/24/25 16:00 06/24/25 16:14 06/24/25 16:29 Temperature 98.3 F 99.1 F Temperature Source Oral Oral Pulse Rate 115 H 109 H 103 H Respiratory Rate 20 H 20 H 13 Blood Pressure 110/74 115/76 107/71 Blood Pressure Mean 86 89 83 Blood Pressure Source Monitor Monitor Blood Pressure Position Semi-Fowlers Semi-Fowlers Blood Pressure Location Left Arm Left Arm Pulse Ox 100 100 100 Oxygen Delivery Method Nasal Cannula Nasal Cannula Nasal Cannula Oxygen Flow Rate (L/min) 2 2 2 06/24/25 16:44 06/24/25 16:58 Temperature 98.3 F 98.3 F Temperature Source Pulse Rate 96 96 Respiratory Rate 14 14 Blood Pressure 112/68 112/68 Blood Pressure Mean 82 Blood Pressure Source Blood Pressure Position Blood Pressure Location Pulse Ox 100 100 Oxygen Delivery Method Oxygen Flow Rate (L/min) 2 Weight Weight: 68 kg Body Mass Index (BMI) 23.4 Physical Exam Narrative General: Alert, oriented, no apparent distress HEENT: Atraumatic, normocephalic, does have visibly dry mucosa Eyes: Anicteric, normal conjunctiva, extraocular movements grossly intact Neck: Supple Respiratory: Clear to auscultation bilaterally, normal respiratory effort Cardiovascular: Low-grade sinus tachycardia GI: Soft, nontender, nondistended Extremities: No edema Musculoskeletal: Moving all extremities, no pain on palpation of lower back Neuro: No overt focal neurological deficits Skin: No rashes appreciated Psych: Cooperative Results Lab / Micro Data 06/24/25 14:40 06/24/25 14:40 Labs: Laboratory Results - last 24 hr 06/24/25 14:40: WBC 23.5 H, RBC 3.50 L, Hgb 10.4 L, Hct 33.8 L, MCV 96.6, MCH 29.7, MCHC 30.8 L, RDW Std Deviation 51.4 H, RDW Coeff of Palak 14.6, Plt Count 481 H, MPV 10.8, Immature Gran % (Auto) 0.900, Neut % (Auto) 85.4 H, Lymph % (Auto) 9.6 L, [place] % (Auto) 3.8, Eos % (Auto) 0.0, Baso % (Auto) 0.3, Absolute Neuts (auto) 20.1 H, Absolute Lymphs (auto) 2.24, Nucleated RBC % 0, Platelet Estimate ADEQUATE, RBC Morphology NORM C+C, PT 14.8, INR 1.1, APTT 25.3, Sodium 139, Potassium 4.6, Chloride 100, Carbon Dioxide 18.6 L, Anion Gap 21 H, BUN 51 H, Creatinine 0.88, Estim Creat Clear Calc 55.37, Est GFR (MDRD) Non-Af 69, BUN/Creatinine Ratio 58.1 H, Glucose 217 H, Calcium 9.6, Total Bilirubin 0.31, Direct Bilirubin 0.13, AST 22, ALT 20, Alkaline Phosphatase 71, Troponin T High Sens 12, NT pro BNP II 528, Total Protein 6.7, Albumin 4.0, Globulin 2.8, Lipase 15, Blood Type O POSITIVE, Antibody Screen NEGATIVE, Crossmatch See Detail 09/06/25 15:26: Lactic Acid 4.9 H* Assessment & Plan Assessment/Plan (1) GI bleed: PLAN: Plan # Acute GI bleed, suspect upper -Patient has a history of bleeding ulcers, initially has hematemesis, dark tarry stools, elevated BUN to 51 out of proportion to her creatinine and a 2 g drop in hemoglobin from 06/16/2025 - PPI drip -Received 1 unit of trauma blood in the ED and vitals have stabilized -Patient typed and screened -GI consult -NPO -Given initial instability patient to be monitored in ICU - Trend H&H's -Hold home Eliquis - ED physician discussed with GI, no reversal at this time # High anion gap metabolic acidosis -Bicarb 18 with an anion gap of 21 -Lactic acid of 4.9, suspect secondary to acute GI bleed, patient was also very tachycardic into the 160s and at 1 point hypotensive as well - Vitals improved with trauma blood -IV fluids # Lower back pain -Patient without any alarm symptoms, suspect she fell due to weakness and the GI bleed started yesterday -No pain on palpation of lower back -Will schedule Tylenol and order lidocaine patch #Type 2 diabetes mellitus -Glucose checks and sliding scale insulin -Hold home oral hypoglycemics #Paroxysmal Atrial Fibrillation -Rate control: Metoprolol held given hypotension -Anticoagulation: Eliquis which should be held #Hx of CAD -Per chart review -Continue home statin, Eliquis held #Depression/anxiety -Continue home medications #DVT ppx: SCDs Kirsten Pearson MD Charges/Coding Visit Charges Inpatient E&M: 20757 Init Hosp L2
--- NOTE | 2025-06-24 17:01 | EX.PCM.CON.G ---
HPI Consult Data Date of Consult: 06/24/25 HPI Narrative Reason for Consultation: GI bleed HPI Narrative: CARMEN MILLER, is a 75 F who presents to the ED with multiple episodes of hematemesis. She has a history of atrial fibrillation and is on Eliquis. She is known to the GI service due to history of GI bleeds and history of eosinophilic esophagitis. In November 2024 she underwent an upper and lower endoscopy due to history of dysphagia and diarrhea. She was determined to have eosinophilic esophagitis and diverticular disease. She was placed on cholestyramine therapy. She has a history of iron deficiency anemia and is on iron on a chronic basis. Past history: [facility] hospitalization 06.06.22-06.18.22 with transfer to TCU until 08.06.22. GI consulted 06.06.22 for suspected GIB with start of PPI and octreotide drip (stopped several days later). 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 EGD 06.11.22 irregular Zline 37cm; LA Grade B esophagitis; diffuse severe inflammation, erythema and friability of entire stomach, heater probed; 5mm non-bleeding diverticulum of second portion duodenum; 4mm nonbleeding diverticulum of jejunum; non bleeding crater ulcer in jejunum. OV 1.26.23 with recommendation to continue PPI. Repeat EGD and performed screening colonoscopy. [facility] Medical History Anxiety Bladder disease Back pain On home oxygen therapy Iatrogenic pneumothorax Legionnaires' disease Wears glasses Wears partial dentures Ambulates with cane Arthritis Anemia Low iron Dietary restriction History of diverticulitis History of ulceration History of GI bleed Gastric reflux Former smoker Emphysema, unspecified Shortness of breath on exertion History of echocardiogram History of stress test Cardiology follow-up encounter Hypertension History of atrial fibrillation History of left heart catheterization (LHC) (~11/11/22) Atherosclerotic heart disease of circle coronary artery without angina pectoris Abnormal stress test Type 1 diabetes Tobacco abuse Hematuria Diabetes mellitus Paroxysmal A-fib History of diabetes mellitus COVID-19 High cholesterol Diabetes Home Medications ?Medication ?Instructions ?Recorded ?Last Taken ?Type alendronate 70 mg tablet 70 mg PO MO Osteoporosis 05/18/22 11/23/24 History polysaccharide iron complex 150 mg 150 mg PO DAILY anemia 30 days #30 07/30/22 11/20/24 Rx iron capsule (Ferrex) caps cholecalciferol (vitamin D3) 50 50 mcg PO DAILY supplement 09/23/22 11/23/24 History mcg (2,000 unit) tablet metoprolol tartrate 25 mg tablet 6.25 mg PO BIDCM afib 09/23/22 11/24/24 History metformin 1,000 mg tablet 1,000 mg PO BID 07/06/24 11/23/24 History midodrine 5 mg tablet 10 mg PO BID blood pressure 07/06/24 11/24/24 History empagliflozin 10 mg tablet 10 mg PO DAILY 11/22/24 11/20/24 History (Jardiance) potassium chloride 20 mEq 20 meq PO DAILY supplement 11/22/24 11/23/24 History tablet,extended release(part/cryst) (Klor-Con M) sertraline 25 mg tablet 25 mg PO DAILY 11/22/24 11/24/24 History cholestyramine (with sugar) 4 gram 4 g PO BID #378 grams 11/24/24 Unknown Rx oral powder apixaban 5 mg tablet (Eliquis) 5 mg PO BID [facility] 01/23/25 Unknown Rx Napoleon Dugs #180 tabs atorvastatin 40 mg tablet 20 mg (1/2 x 40 mg) PO QHS 02/21/25 Unknown Rx Cholestrol #30 tabs Allergy/AdvReac Type Severity Reaction Status Date / Time Sulfa (Sulfonamide Allergy Unknown GI issues Verified 06/24/25 14:31 Antibiotics) Family History Uncle Heart disease Uncle Heart disease Surgical History History of cardiac catheterization Hx of esophagogastroduodenoscopy Social History household members: spouse Smoking Status: Former smoker alcohol intake: never substance use type: does not use caffeine: Yes Type: coffee Number of servings: 2 ROS Constitutional Constitutional: Denies fatigue, fever(s), poor appetite, weight gain or weight loss Gastrointestinal Gastrointestinal: Denies belching, bloating, change in bowel habits, change in stool character, chewing difficulty, coffee ground emesis, constipation, cramping, diarrhea, dyspepsia, dysphagia, early satiety, excessive flatus, fecal incontinence, heartburn, hematemesis, hematochezia, hemorrhoids, loose stools, melena, nausea, odynophagia, rectal bleeding, tenesmus, vomiting or weight changes Physical Exam Const alert, oriented x3, no apparent distress and healthy appearing General Appearance: cooperative GI normal to inspection, nondistended, normoactive bowel sounds, soft to palpation, non-tender and non-distended Percussion: normal to percussion Rectal Exam: deferred Lab / Micro Data 06/24/25 14:40 06/24/25 14:40 Labs: Laboratory Results - last 24 hr 06/24/25 14:40: WBC 23.5 H, RBC 3.50 L, Hgb 10.4 L, Hct 33.8 L, MCV 96.6, MCH 29.7, MCHC 30.8 L, RDW Std Deviation 51.4 H, RDW Coeff of Palak 14.6, Plt Count 481 H, MPV 10.8, Immature Gran % (Auto) 0.900, Neut % (Auto) 85.4 H, Lymph % (Auto) 9.6 L, [place] % (Auto) 3.8, Eos % (Auto) 0.0, Baso % (Auto) 0.3, Absolute Neuts (auto) 20.1 H, Absolute Lymphs (auto) 2.24, Nucleated RBC % 0, Platelet Estimate ADEQUATE, RBC Morphology NORM C+C, PT 14.8, INR 1.1, APTT 25.3, Sodium 139, Potassium 4.6, Chloride 100, Carbon Dioxide 18.6 L, Anion Gap 21 H, BUN 51 H, Creatinine 0.88, Estim Creat Clear Calc 55.37, Est GFR (MDRD) Non-Af 69, BUN/Creatinine Ratio 58.1 H, Glucose 217 H, Calcium 9.6, Total Bilirubin 0.31, Direct Bilirubin 0.13, AST 22, ALT 20, Alkaline Phosphatase 71, Troponin T High Sens 12, NT pro BNP II 528, Total Protein 6.7, Albumin 4.0, Globulin 2.8, Lipase 15, Blood Type O POSITIVE, Antibody Screen NEGATIVE, Crossmatch See Detail 06/24/25 15:26: Lactic Acid 4.9 H* Assessment & Plan Assessment/Plan (1) Acute upper gastrointestinal bleeding: PLAN: Upper GI bleed from unknown cause at this time. Digital diagnosis does include Sherri Bullock tear because she was coughing from Legionella, AVM, peptic ulcer disease. When she is more medically stable to be sedated we will pursue an upper endoscopy. This was explained to her daughter who is at the bedside. In the interim I will start her on a PPI drip and octreotide drip as she is transferred to the ICU. Charges/Coding Visit Charges Inpatient E&M: 19347 Init Hosp L3
--- OUTSIDE RECORDS SUMMARY | 2025-06-24 17:05 | XMS RPT_ITS | CCD ---
Author Organization [facility] CliniSyny Care Team Providers Care Form Setter [employer] Forms Name Role Phone Dr. Misael Molina Primary Care Provider Dr. Hari Snyder Emergency Provider Dr. Filiberto Edge Admit Provider Dr. Filiberto Edge Attending Provider Minesh, Dr. De Los Santos Other Provider Dr. Dax Barksdale Other Provider Dr. Jackson Graham Attending Provider 1([facility])[phone] Jackson Graham Other Provider Dr. Travis Germain Other Provider Collin TOOL AND DIE DESIGNER, TOOL AND DIE DESIGNER-C Roselyn Other Provider Dr. Mellisa Victoria Referring [...] Attending Provider Dr. Jackson Graham Referring Provider 1([facility])[phone] Filiberto Edge Referring Provider 1([facility])[phone] Dr. Gerald Low Referring Provider Dr. Aric Hernandez Other Provider Unavailab jayjay Antonio, Dr. Tadeo Other Provider Dr. Shwetha Antonio Attending Provider Nuestacadajurgen, Dr. Mccall Other Provider Fletcher, Dr. Mccall Attending Provider Fletcher, Dr. Mccall Referring Provider Bernard, Dr. Art Srivastava Referring Provider Tracy, Dr. Douglas Primary Care Provider 1([facility])[phone] Dr. Misael Daniels Attending Provider 1([facility])[phone] Dr. Art Wagner Chi Referring Provider Malena Malik Attending Provider Unavailable Dr. Misael Molina Referring Provider 1([facility])[phone] Misael Daniels Referring Provider 1([facility])[phone] Dr. Misael Daniels Other Provider 1([facility])[phone] Misael Molina Primary Care Provider 1([facility])[phone] Dr. Misael Daniels Attending Provider 1([facility])[phone] Dr. Maurilio Mcmanus Attending Provider 1([facility])[phone] Chau MORALES, LINDA Og Attending Provider Dr. Misael Molina Primary Care Provider 1([facility])[phone] Dr. Misael Daniels Attending Provider 1([facility])[phone] Dr. Misael Daniels Referring Provider 1([facility])[phone] Dr. Misael Daniels Other Provider 1([facility])[phone] Misael Molina Referring Provider 1([facility])[phone] Malena Malik Attending Provider Unavailable Dr. Maurilio Mcmanus Attending Provider 1([facility])[phone] Chau TOOL AND DIE DESIGNER, LINDA Og Attending Provider Dr. Maurilio Mcmanus Other Provider 1([facility])[phone] Misael Molina Primary Care Provider 1([facility])[phone] Dr. Misael Molina Referring Provider Chau MORALES, LINDA Og Attending Provider Dr. Misael Molina Primary Care Provider 1([facility])[phone] Tracy, Dr. Douglas Referring Provider 1([facility])[phone] Yonathan, Dr. Thorpe Attending Provider 1([facility])[phone] Tracy DAY, Dr. Douglas Primary Care Provider 1([facility] )[phone] Tracy DAY, Dr. Douglas Referring Provider 1([facility])[phone] Yonathan RODRIGUEZ, Dr. Thorpe Attending Provider Yonathan RODRIGUEZ, Dr. Thorpe Other Provider 1([facility])[phone] Tracy DAY, Dr. Douglas Attending Provider 1([facility])[phone] Tracy DAY, Dr. Douglas Primary Care Provider 1([facility] )[phone] Hollie DAY, Dr. Pinzon Attending Provider 1([facility])[phone] Tracy DAY, Dr. Douglas Referring Provider 1([facility])[phone] Deni DAY, Dr. Marcial Attending Provider Tracy, [...] Care Unavailable Sibilia, Dax Lanier Attending Unavailable Molina, Misael Attending Unavailable [...] (Antibiotic) Allergy to substance 2 GI issues [facility] (1 source) Sulfonamides (Antibiotic) Drug allergy (disorder) [facility] Repository Medications Current Medications Medication Drug Class(es) [...] 12:57pm January 23, 2025 3:13pm blood thinner Exfdp-Jiok-Krcgd -Rdoyax-Kj-Xcs (Og (With Collagen)) 7-7-1.5 gram Powder In Packet (19 sources) Start: 06-18-2022 End: 06-18-2022 Ricfe-Ouhz-Djcpc-Col lag-Mv-Min (Og (With Collagen)) 7-7-1.5 gram Powder In Packet Discontinued 1 NMA PO TWICE DAILY WITH MEALS 0 0 June 18, 2022 12:00am June 18, 2022 2:25pm Start: 06-18-2022 End: 06-18-2022 Sswbw-Saby-Pfpju-Collag-Mv-M in (Og (With Collagen)) 7-7-1.5 gram Powder In Packet Discontinued 1 NMA PO TWICE DAILY WITH MEALS 0 June 18, 2022 12:00am June 18, 2022 2:25pm Start: 06-18-2022 End: 06-18-2022 Jlypi-Neku-Empxf-Collag-Mv-M in (Og (With Collagen)) 7-7-1.5 gram Powder In Packet Discontinued 1 PACKET PO TWICE DAILY WITH MEALS 0 June 17, 2022 11:00pm June 18, 2022 1:25pm Start: 06-18-2022 End: 06-18-2022 Yneel-Hzqc-Dxowk-Collag-Mv-M in (Og (With Collagen)) 7-7-1.5 gram Powder In Packet Discontinued 1 PACKET PO TWICE DAILY WITH MEALS 0 June 18, 2022 12:00am June 18, 2022 2:25pm Start: 06-18-2022 Mnegh-Fxrv-Yvq ii-Qnvpdc-Me-Min (Og (With Collagen)) 7-7-1.5 gram Powder In Packet Active 1 PACKET PO TWICE DAILY WITH MEALS 0 June 18, 2022 12:00am Znbaf-Cxro-Zygot-Collag-Mv-M in (Og (With Collagen)) 7-7-1.5 gram powder in packet (18 sources) Start: 06-18-2022 End: 07-30-2022 Wmbxq-Mfjy-Tulsh-Collag-Mv-M in (Og (With Collagen)) 7-7-1.5 gram powder in packet Discontinued 1 NMA PO TWICE DAILY WITH MEALS June 18, 2022 2:24pm July 30, 2022 7:52pm Supplement Start: 06-18-2022 End: 07-30-2022 Xbecm-Odgr-Ockem-Collag-Mv-M in (Og (With Collagen)) 7-7-1.5 gram powder in packet Discontinued 1 NMA PO TWICE DAILY WITH MEALS June 18, 2022 2:24pm July 30, 2022 7:52pm Start: 06-18-2022 End: 07-30-2022 Xcvmw-Oaxg-Njmwz-Collag-Mv-M in (Og (With Collagen)) 7-7-1.5 gram powder in packet Discontinued 1 PACKET PO TWICE DAILY WITH MEALS June 18, 2022 1:24pm July 30, 2022 6:52pm Start: 06-18-2022 End: 07-30-2022 Qcdjh-Xaut-Erkxi-Collag-Mv-M in (Og (With Collagen)) 7-7-1.5 gram powder in packet Discontinued 1 PACKET PO TWICE DAILY WITH MEALS June 18, 2022 2:24pm July 30, 2022 7:52pm Start: 06-18-2022 Penol-Uhio-Upa lk-Mqfsko-Xk-Min (Og (With Collagen)) 7-7-1.5 gram powder in [...] Coronary atherosclerosis; Translations: [Atherosclerotic heart disease of [place] coronary artery without angina pectoris] Onset: 07-06-2024 [...] aftercare (20 sources) Drug therapy finding; Translations: [carpenter rough (current) use of anticoagulants] 06-26-2022 Episodic Other aftercare (5 sources) jail (current) use of anticoagulants; Translations: [Long-term (current) use of anticoagulants] Episodic Other aftercare (4 sources) Long-term current use of anticoagulant; Translations: [jail (current) use of anticoagulants] 01-07-2024 Episodic Comment [...] width (RBC) [Ratio] 14.5 % Normal 11.6-14.6 [facility] Comment on above: Performed By: #### L 500.4100, L500.4050, L502.0250 #### [facility] [address] [place], [address] Hematocrit (Bld) [Volume fraction] 40.2 % Normal 37-47 [facility] Comment on above: Performed By: #### L 500.4100, L500.4050, L502.0250 #### [facility] [address] [place], [address] Hemoglobin (Bld) [Mass/Vol] 12.7 g/dL Normal 12.0-15.0 [facility] Comment on above: Performed By: #### L 500.4100, L500.4050, L502.0250 #### [facility] [address] [place], [address] MCH (RBC) [Entitic mass] 29.7 pg Normal 27.0-32.0 [facility] Comment on above: Performed By: #### L 500.4100, L500.4050, L502.0250 #### [facility] [address] [place], [address] MCHC (RBC) [Mass/Vol] 31.6 g/dL Low 32-36 [facility] Comment on above: Performed By: #### L 500.4100, L500.4050, L502.0250 #### [facility] [address] [place], [address] MCV (RBC) [Entitic vol] 93.9 fL Normal 81-99 [facility] Comment on above: Performed By: #### L 500.4100, L500.4050, L502.0250 #### [facility] [address] [place], [address] Platelet mean volume (Bld) [Entitic vol] 10.2 fL Normal 6.2-12.0 [facility] Comment on above: Performed By: #### L 500.4100, L500.4050, L502.0250 #### [facility] [address] [place], [address] Platelets (Bld) [#/Vol] 445 10*3/uL Normal 150-450 [facility] Comment on above: Performed By: #### L 500.4100, L500.4050, L502.0250 #### [facility] [address] [place], [address] RBC (Bld) [#/Vol] 4.28 10*6/uL Normal 4.2-5.4 [facility] Comment on above: Performed By: #### L 500.4100, L500.4050, L502.0250 #### [facility] [address] [place], [address] RDW SD 50.3 fl High 35.1-43.9 [facility] Comment on above: Performed By: #### L 500.4100, L500.4050, L502.0250 #### [facility] [address] [place], [address] WBC (Bld) [#/Vol] 10.5 10*3/uL Normal 4.4-11.0 [facility] Comment on above: Performed By: #### L 500.4100, L500.4050, L502.0250 #### [facility] [address] [place], [address] Cardiology Visit Reporton Cardiology Visit Report [facility] [address] [place], [place] [address] OFFICE VISIT Date of Service: 06/16/25 MR#: [id number] Acct: [id number] Name: RAVI BECKHAM Rep #: [id number] : 1950 Provider: Dr. Aniket ornelas MD Age/Sex: 75/F Location[facility] Status: Signed HPI HPI History of Present Illness Details: Patient is a pleasant 75-year-old white female who comes today for monitor of her cardiovascular status. Patient has a history of mild coronary disease on catheterization in 2022. She has a history of paroxysmal atrial fibrillation that started in 2021 was initially diagnosed. She has a [id number]-PFOf score of 4 she has been maintained [...] air Intake Visit Reasons: 9 M FU Floral Clerk Required: No Accompanied by: Self Is patient [...] (LHC) ( 11/11/22) Atherosclerotic heart disease of [place] coronary artery without angina pectoris Abnormal stress [...] Pain: No (more content not included)... Normal [facility] Erythrocyte distribution wid th ratioOrdered By: Aniket Cheema on 06-16-2025 Erythrocyte distribution width (RBC) [Ratio] 14.5 % 11.6-14.6 [facility] Erythrocyte distribution wid th standard deviationOrdered By: Aniket Cheema on 06-16-2025 Erythrocyte distribution width (RBC) [Ratio] 50.3 fl High 35.1-43.9 [facility] Hematocrit Auto (Bld) [Volum e fraction]Ordered By: Aniket Cheema on 06-16-2025 Hematocrit (Bld) [Volume fraction] 40.2 % 37-47 [facility] Hemoglobin measurementOrdere d By: Aniket Cheema on 06-16-2025 Hemoglobin (Bld) [Mass/Vol] 12.7 g/dL 12.0-15.0 [facility] MCV (mean corpuscular volume ) determinationOrdered By: Aniket Cheema on 06-16-2025 MCV (RBC) [Entitic vol] 93.9 fL 81-99 [facility] Mean corpuscular hemoglobin (MCH) determinationOrdered By: Aniket Cheema on 06-16-2025 MCH (RBC) [Entitic mass] 29.7 pg 27.0-32.0 [facility] Mean corpuscular hemoglobin concentration (MCHC) determinationOrdered By: Aniket Cheema on 06-16-2025 MCHC (RBC) [Mass/Vol] 31.6 g/dL Low 32-36 [facility] Mean platelet volume determi nationOrdered By: Aniket Cheema on 06-16-2025 Platelet mean volume (Bld) [Entitic vol] 10.2 fL 6.2-12.0 [facility] Platelet countOrdered By: Susi Cheema on 06-16-2025 Platelets (Bld) [#/Vol] 445 10*3/uL 150-450 [facility] RBC Auto (Bld) [#/Vol]Ordere d By: Aniket Cheema on 06-16-2025 RBC (Bld) [#/Vol] 4.28 10*6/uL 4.2-5.4 [facility] White blood cell (WBC) count Ordered By: Aniket Cheema on 06-16-2025 WBC (Bld) [#/Vol] 10.5 10*3/uL 4.4-11.0 [facility] Microalb:Creat Ratio,Random URon 04-06-2025 MALB:CREAT 10.6 mg/g CRE Normal [facility] Comment on above: Result Comment: AMENDED REPORT 04/06/25 1209 MALB:CREAT previously reported as: 105.7 mg/g CRE Performed By: #### L 502.0250, L500.4100, L500.2500 #### [facility] [address] [place], [place] [address]. [place], [address] Albumin DL <= 20 mg/L (U) [M ass/Vol]Ordered By: Misael Molina on 01-26-2025 Urine Random Microalbumin 18.5 mg/L NO RANGE EST. [facility] Anion gap in Serum or Plasma Ordered By: Misael Molina on 01-26-2025 Anion gap [Moles/Vol] 14 mmol/L 03-02 [facility] BUN/creatinine ratioOrdered By: Misael Molina on 01-26-2025 Urea nitrogen/Creatinine [Mass ratio] 16.4 mg/mg - [facility] Basic Metabolic Profile (BMP )on 01-26-2025 BUN/CRE 16.4 RATIO Normal 08-07 [facility] Comment on above: Performed By: #### L 502.0250, L500.4100, L500.2500 #### [facility] [address] [place], [address] Calcium [Mass/Vol] 9.7 mg/dL Normal 7.6-11.0 [facility] Comment on above: Performed By: #### L 502.0250, L500.4100, L500.2500 #### [facility] [address] [place], [address] Chloride [Moles/Vol] 102 mmol/L Normal 98-108 [facility] Comment on above: Performed By: #### L 502.0250, L500.4100, L500.2500 #### [facility] [address] [place], [address] CO2 [Moles/Vol] 23.6 mmol/L Normal 21.0-32.0 [facility] Comment on above: Performed By: #### L 502.0250, L500.4100, L500.2500 #### [facility] [address] [place], [address] Creatinine [Mass/Vol] 0.95 mg/dL Normal 0.70-1.20 [facility] Comment on above: Performed By: #### L 502.0250, L500.4100, L500.2500 #### [facility] [address] [place], [address] GAP 14 Normal 5-15 [facility] Comment on above: Performed By: #### L 502.0250, L500.4100, L500.2500 #### [facility] [address] [place], [address] GFR/1.73 sq M.predicted among non-blacks MDRD (S/P/Bld) [Vol rate/Area] 64 mL/min/{1.73_m2} Normal >60 [facility] Comment on above: Result Comment: mL/m in/1.73m2 CKD-EPI Creatinine Equation (2020) Performed By: #### L 502.0250, L500.4100, L500.2500 #### [facility] [address] [place], [address] Glucose [Mass/Vol] 116 mg/dL High 70-99 [facility] Comment on above: Performed By: #### L 502.0250, L500.4100, L500.2500 #### [facility] [address] [place], [address] Potassium [Moles/Vol] 4.3 mmol/L Normal 3.3-5.1 [facility] Comment on above: Performed By: #### L 502.0250, L500.4100, L500.2500 #### [facility] [address] [place], [address] Sodium [Moles/Vol] 140 mmol/L Normal 133-145 [facility] Comment on above: Performed By: #### L 502.0250, L500.4100, L500.2500 #### [facility] [address] [place], [address] Urea nitrogen [Mass/Vol] 16 mg/dL Normal 4-19 [facility] Comment on above: Performed By: #### L 502.0250, L500.4100, L500.2500 #### [facility] [address] [place], [address] Calculated very low density lipoprotein (VLDL) cholesterol measurementOrdered By: Misael Molina on 01-26-2025 VLDL Cholesterol 38 mg/dL 5-40 [facility] Carbon dioxide, total [Moles /volume] in Central venous bloodOrdered By: Misael Molina on 01-26-2025 CO2 [Moles/Vol] 23.6 mmol/L 21.0-32.0 [facility] Chloride assayOrdered By: Branden Molina on 01-26-2025 Chloride [Moles/Vol] 102 mmol/L 98-108 [facility] Creatinine Unsp time (U) [Ma ss/Vol]Ordered By: Misael Molina on 01-26-2025 Creatinine (U) [Mass/Vol] 175.00 mg/dL 28 .00-217. 00 [facility] GFR/1.73 sq M.predicted demetra g non-blacks MDRD (S/P/Bld) [Vol rate/Area]Ordered By: Misael Molina on 01-26-2025 Estimated GFR (MDRD) Non-Af Amer 64 >60 [facility] Comment on above: mL/min/1.73m2 CKD-EP I Creatinine Equation (2020) LDL calc ser/plasOrdered By: Misael Molina on 01-26-2025 LDL Cholesterol, Calculated 58 mg/dL [facility] Comment on above: Sqweyxyepa=119-811 m g/dL & Higher Sgxi=283 mg/dL or greater Lipid Profileon 01-26-2025 CHOL:HDL 3.09 Normal [facility] Comment on above: Performed By: #### L 502.0250, L500.4100, L500.2500 #### [facility] [address] [place], [place], [address] Cholesterol [Mass/Vol] 142 mg/dL Normal <=200 [facility] Comment on above: Result Comment: Chol esterol level, Desirable <200 mg/dL Borderline high cholesterol 200-239 mg/dL High cholesterol >=240 mg/dL Recommendations of the NCEP Adult Treatment Panel for the following risk-cutoff thresholds for the [place] population. Performed By: #### L 502.0250, L500.4100, L500.2500 #### [facility] [address] [place], [address] Cholesterol in HDL [Mass/Vol] 46 mg/dL Normal [facility] Comment on above: Result Comment: Selena onal Cholesterol Education Program (NCEP) guidelines: <40 mg/dL: Low HDL-cholesterol (major risk factor for CHD) >= 60 mg/dL: High HDL-cholesterol (negative risk factor for CHD) HDL-cholesterol is affected by a number of factors, e.g. smoking, exercise, hormones, sex and age. Performed By: #### L 502.0250, L500.4100, L500.2500 #### [facility] [address] [place], [address] Cholesterol in LDL [Mass/Vol] 58 mg/dL Normal [facility] Comment on above: Result Comment: Bord zdprwc=356-220 mg/dL Higher Aaqu=155 mg/dL or greater Performed By: #### L 502.0250, L500.4100, L500.2500 #### [facility] [address] [place], [address] Cholesterol in VLDL [Mass/Vol] 38 mg/dL Normal 5-40 [facility] Comment on above: Performed By: #### L 502.0250, L500.4100, L500.2500 #### [facility] [address] [place], [address] Triglyceride [Mass/Vol] 191 mg/dL Normal [facility] Comment on above: Result Comment: The drugs N-Acetylcysteine and Metamizole may falsely depress this assay. Normal range: <150 mg/dL Borderline High: 150-199 mg/dL High: 200-499 mg/dL Very High: >500 mg/dL Performed By: #### L 502.0250, L500.4100, L500.2500 #### [facility] [place], [address] Microalbumin/creat ratio urO rdered By: Misael Molina on 01-26-2025 Urine Microalbumin/Creatinine Ratio 105.7 mg/g CRE [facility] Potassium (Unsp spec) [Mass/ Vol]Ordered By: Misael Molina on 01-26-2025 Potassium [Moles/Vol] 4.3 mmol/L 3.3-5.1 [facility] Screening total cholesterol/ high density lipoprotein (HDL) cholesterol ratioOrdered By: Misael Molina on 01-26-2025 Cholesterol.total/Cholest cat in HDL [Mass ratio] 3.09 {ratio} [facility] Serum creatinine measurement (mass/volume)Ordered By: Misael Molina on 01-26-2025 Creatinine [Mass/Vol] 0.95 mg/dL 0.70-1.20 [facility] Serum glucose measurement (m ass/volume)Ordered By: Misael Molina on 01-26-2025 Glucose [Mass/Vol] 116 mg/dL High 70-99 [facility] Serum or plasma calcium ana urement (mass/volume)Ordered By: Misael Molina on 01-26-2025 Calcium [Mass/Vol] 9.7 mg/dL 7.6-11.0 [facility] Serum or plasma cholesterol in HDL measurement (mass/volume)Ordered By: Misael Molina on 01-26-2025 Cholesterol in HDL [Mass/Vol] 46 mg/dL >40 [facility] Comment on above: National Cholesterol Education Program (NCEP) guidelines:<40 mg/dL: Low HDL-cholesterol (major risk factor for CHD)>= 60 mg/dL: High HDL-cholesterol (negative risk factor for CHD)HDL-cholesterol is affected by a number of factors, e.g. smoking, exercise, hormones, sex and age. Serum or plasma cholesterol measurement (mass/volume)Ordered By: Misael Molina on 01-26-2025 Cholesterol [Mass/Vol] 142 mg/dL <201 [facility] Comment on above: Cholesterol level, D esirable <200 mg/dLBorderline high cholesterol 200-239 mg/dLHigh cholesterol >=240 mg/dLRecommendations of the NCEP Adult Treatment Panel for the following risk-cutoff thresholds for the [place] population. Serum or plasma urea nitroge n measurement (mass/volume)Ordered By: Misael Molina on 01-26-2025 Urea nitrogen [Mass/Vol] 16 mg/dL 4-19 [facility] Sodium levelOrdered By: Misael Molina on 01-26-2025 Sodium [Moles/Vol] 140 mmol/L 133-145 [facility] Triglycerides measurementOrd ered By: Misael Molina on 01-26-2025 Triglyceride [Mass/Vol] 191 mg/dL <199 [facility] Comment on above: The drugs N-Acetylcy steine and Metamizole may falsely depress this assay. Normal range: <150 mg/dLBorderline High: 150-199 mg/dLHigh: 200-499 mg/dLVery High: >500 mg/dL Bedside Glucoseon 11-24-2024 FINGERSTICK GLU 206 mg/dL High 74-106 [facility] Comment on above: Result Comment: MIHIR LINCOLN OF PATIENT CARE PER NURSING PROTOCOL Performed By: #### L 501.080 #### [facility] [address] [facility] [place], [address] Colonoscopy Reporton 025 Colonoscopy Report [facility] Medical Records Department [address] [place] [address] Colonoscopy Report MR#: [id number] Acct: [id number] Name: RAVI BECKHAM Rep #: [id number] : 1950 74 From: Maurilio Mcmanus DO PCP: Dr. Misael Molina MD Status:[facility] Patient Name: Ravi Beckham Procedure Date: [...] for surveillance. Procedure Code(s): --- Professional --- 87246, Colonoscopy, flexible; with biopsy, single or multiple CPT copyright 2021 [employer]. All rights reserved. The codes documented in this report are preliminary and upon track supervisor review may be revised to meet current compliance requirements. Maurilio Mcmanus DO 11/24/2024 7:58:28 AM This report has been signed electronically. Number of Addenda: 0 Note Initiated On: 11/24/2024 7:30 AM 11/24/24 0758 Date Maurilio Mcmanus DO Cosigner Signature: Date (if indicated) CC: Dr. Misael Molina MD; Maurilio Mcmanus DO Date Dictated: 11/24/24729 Date Transcribed: Metal Mockup Maker: [email or web address] Signed Normal [facility] EGD Reporton 11-24-2024 EGD Report [facility] Medical Records Department [address] [place] [address] EGD Report MR#: [id number] Acct: [id number] Name: RAVI BECKHAM Rep #: [id number] : 1950 74 From: Maurilio Mcmanus DO PCP: Dr. Misael Molina MD Status:[facility] Patient Name: Ravi Beckham Procedure Date: [...] pathology results. Procedure Code(s): --- Professional --- 83894, Esophagogastroduodenoscop y, flexible, transoral; with biopsy, single or multiple CPT copyright 2021 [employer]. All rights reserved. The codes documented in this report are preliminary and upon track supervisor review may be revised to meet current compliance requirements. Maurilio Mcmanus DO 11/24/2024 7:29:56 AM This report has been signed electronically. Number of Addenda: 0 Note Initiated On: 11/24/2024 6:17 AM 11/24/24 0754 Date Maurilio Mcmanus DO Cosigner Signature: Date (if indicated) CC: Dr. Misael Molina MD; Maurilio Mcmanus DO Date Dictated: 11/24/24616 Date Transcribed: Metal Mockup Maker: [email or web address] Signed Normal [facility] deOrdered By: Maurilio Mcmanus on 11-24-2024 Bedside Glucose (Misc Panel) 206 mg/dL High 74-106 [facility] Comment on above: MANAGEMENT OF PATIEN T CARE PER NURSING PROTOCOL H Pylori (initial)on 025 H Pylori (initial) ----- Patient Age/Sex Location Account Attending Physician RAVI BECKHAM 74/F EN [id number] Maurilio Mcmanus DO Specimen: [id number] Received: 11/24/24 Status: LAURA Tidwell Num: [id number] Spec Type: IMMUNO Subm Dr: Maurilio Mcmanus DO PHYSICIAN INSTITUTION [place] [address] SPECIMEN INFORMATION: Tissue Source: A- Antrum biopsy Clinical Info: Eosinophilic esophagitis, GI bleed, irritable bowel syndrome with diarrhea Specimen Number: [id number] CPT code: 40945 METHODOLOGY: Deparaffinized sections of prefer/formalin-fixed tissue or [...] developed and their performance characteristics determined by [facility]. They may not have been cleared or approved by the U.S. Food and Drug Administration. The FDA has determined that such clearance or approval is not necessary. The above immunohistochemical/dualI SH markers are ordered and reviewed by the Pathologist. INTERPRETATION: A. Antrum, biopsy: Negative for Helicobacter pylori organisms. SJ.mr 11/25/2024 Signed (signature on file) Dr. Basim Jay MD 11/25/24 1203 Normal [facility] Comment on above: Performed By: #### P H.PYLORI #### [facility] [address] [facility] [place], [place], [address] MR/POSTOP.[employer] [facility] 11-24-2024 MR/POSTOP.[place] Medical Records Department [address] [place] [address] Anesthesia Postop Eval I 11/24/24728 MR#: [id number] Acct: [id number] Name: RAVI BECKHAM Rep #: [id number] : 1950 74 From: Osiris Schaefer CRNA PCP: Dr. Misael Molina MD Status:REG [facility] Y Race: C Location: [place] [address] Anesthesia: Postop Eval I Current Vital Signs [...] CRNA Cosigner Signature: Date CC: Signed Normal [facility] MR/[id number] 11-24-2024 MR/POSTOPAN2 [facility] Medical Records Department [address] [place] [address] Anesthesia Postop Eval II 11/24/24 104 MR#: [id number] Acct: [id number] Name: RAVI BECKHAM Rep #: [id number] : 1950 74 From: Lupe Murphy PCP: Dr. Misael Molina MD Status:DEP [facility] Y Race: C Location: [place] Anesthesia Postop Eval I Sum Postop Eval Completion status Anesthesia document: Postop Eval 1 completed: Yes Anesthesia Postop Eval I Summary Anesthesia Postop Eval I Summary: Anesthesia Postop Eval I: Assessment Summary Airway patent Yes 11/24/24 07:30 DISC PAD PLATE FILLER.JSWI Spontaneous unlabored Yes 11/24/24 07:30 DISC PAD PLATE FILLER.JSWI respirations Mental status Awake 11/24/24 07:30 DISC PAD PLATE FILLER.JSWI nausea No 11/24/24 07:30 DISC PAD PLATE FILLER.JSWI Vomiting No 11/24/24 07:30 DISC PAD PLATE FILLER.JSWI Anesthesia Postop Eval I: Fluid Summary Crystalloid volume administer 20 11/24/24 07:30 DISC PAD PLATE FILLER.JSWI (ml) Colloids volume administered ( ml) Blood Product volume administered (ml) Total IV fluid infused 20 11/24/24 07:30 DISC PAD PLATE FILLER.JSWI Anesthesia Postop Eval I: Summary Notes Anesthesia Complication No 11/24/24 07:30 DISC PAD PLATE FILLER.JSWI Anesthesia Complication Comment: Post-operative progress note Anesthesia: Postop Eval II Evaluation Mental status: Awake and Calm Pain Level: 0 nausea: No Vomiting: No 11/24/241041 Date Lupe Palacios Signature: CC: Signed Normal [facility] Surgery Specimen Level [place] 11-24-2024 Surgery Specimen Level IV Patient Age/Sex Location Account Attending Physician RAVI BECKHAM 74/F EN [id number] Maurilio Mcmauns DO Specimen: [id number] Received: 11/24/24 Status: LAURA Tidwell Num: [id number] Spec Type: COLON BX Subm Dr: Maurilio [...] for Helicobacter pylori will be reported separately ([id number]). MICROSCOPIC DESCRIPTION Slides are reviewed. A. The [...] Account Attending Physician RAVI BECKHAM 74/ EN [id number] Maurilio Mcmanus DO that in aggregate measure [...] totally submitted in one cassette. 11/24/2024 TC:2 [facility]:[id number] Patient Age/Sex Location Account Attending Physician RAVI BECKHAM 74/ EN [id number] Maurilio Mcmanus DO Signed (signature on file) Dr. Basim Jay MD 11/25/24 1137 Normal [facility] Comment on above: Performed By: #### P SUIV #### [facility] [address] [place], [place], [address] [facility]-22-[facility] MR/PAT.[place] Medical Records Department [address] [place] [address] PAT - Anesthesia 11/22/24 1612 MR#: [id number] Acct: [id number] Name: RAVI BECKHAM Rep #: [id number] : 1950 74 From: Wilson Torres MD PCP: Dr. Misael Molina MD Status:PRE [facility] Y Race: C Location: EN Pre-Assessment Diagnosis/Proposed Procedure Planned Operative Procedure(s): EGD/CSCOPE Anesthesia History Anesthesia History - hook puller: Anesthesia History - hook puller Hx Hospitalization No 11/22/24 10:23 Any Problems [...] take am of surgery PONV PONV - hook puller: PONV - hook puller Female Yes 11/22/24 10:23 HX of Motion [...] 07/06/24 13:28 Respiratory Assessment Respiratory Assessment - hook puller: Respiratory Tract Infection Hx - hook puller Hx Respiratory Tract Infection No 11/22/24 10:23 STOP Sleep Apnea STOP Sleep Apnea - hook puller: STOP Sleep Apnea - hook puller Hx Hypertension Yes: CONTROLLED WITH MED 11/22/24 [...] Tobacco Use History Tobacco Use History - hook puller: Tobacco Use History - hook puller Tobacco Use Smoking Status Former smoker 11/22/24 10:23 Hx Tobacco Use No 11/22/24 10:23 Years Smoking Packs Smoked per Day Smoking Cessation Date was Yes - quit smoking within 15 11/22/24 10:23 within the last 15 years years Hx Smoking Cessation Date 05/18/22 11/22/24 10:23 Hx Smoking Cessation No 11/22/24 10:23 Counseling Hematologic Medial History Hematologic Hx - hook puller: Hematologic Medical Hx - last pattern grader Hx of Blood Transfusion Yes 11/22/24 10:23 [...] confused, unrespo /Reproduction History /Reproductive History - hook puller: /Reproductive Hx- hook puller Hx Now No 11/22/24 10:23 Gestational Age (in weeks): EDC: Hx Hx Para Hx Section SAB No 11/22/24 10:23 [facility] Medical History (Updated 11/22/24 @ 10:34 by [...] (LHC) ( 11/11/22) Atherosclerotic heart disease of [place] coronary artery without angina pectoris Abnormal stress test Type 1 diabetes Tobacco abuse Hematuria Diabetes mellitus Paroxysmal A-fib History of diabetes mellitus COVID-19 High cholester (more content not included)... Normal [facility] Gastroenterology Visit Repor ton 09-13-2024 Gastroenterology Visit Report [facility] Gastroenterology [address] [place] [address] OFFICE VISIT Date of Service: 09/13/24 MR#: [id number] Acct: [id number] Name: RAVI BECKHAM Rep #: [id number] : 1950 Provider: BRANDEN Del Rosario Age/Sex: 74/F Location[facility] Status: Signed Intake Vital Signs 01/07/24 13:01 [...] denies bloody stools and continues pantoprazole daily. [facility] Medical History Iatrogenic pneumothorax Legionnaires' disease Wears [...] (LHC) ( 11/11/22) Atherosclerotic heart disease of [place] coronary artery without angina pectoris Abnormal stress [...] PMH DM 1; CAD; hyperlipidemia; encephalopathy; a.Fib [facility] Hospitalization 05.18.22-05.31.22 for COVID with legionella pne, respiratory failure. Discharged to SNF. [facility] ED 06.03.22 with SOB and hypoxia. *[facility] hospitalization 06.06.22-06.18.22 with transfer to TCU until [...] exertion Maru (more content not included)... Normal [facility] Comprehensive Metabolic Prof ilon 07-27-2024 Albumin [Mass/Vol] 3.7 g/dL Normal 3.2-5.0 [facility] Comment on above: Order Comment: ONLY NEILEN ORDER Performed By: #### L 500.4100, L500.4050, L502.0250 #### [facility] [address] [place], [address] Albumin/Globulin [Mass ratio] 1.0 {ratio} Normal 0.9-2.4 [facility] Comment on above: Order Comment: ONLY NEILEN ORDER Performed By: #### L 500.4100, L500.4050, L502.0250 #### [facility] [address] [place], [address] ALK P 87 U/L Normal 45-117 [facility] Comment on above: Order Comment: ONLY NEILEN ORDER Performed By: #### L 500.4100, L500.4050, L502.0250 #### [facility] [address] [place], [address] ALT [Catalytic activity/Vol] 21 U/L Normal 13-56 [facility] Comment on above: Order Comment: ONLY NEILEN ORDER Performed By: #### L 500.4100, L500.4050, L502.0250 #### [facility] [address] [place], [address] AST [Catalytic activity/Vol] 16 U/L Normal 15-37 [facility] Comment on above: Order Comment: ONLY NEILEN ORDER Performed By: #### L 500.4100, L500.4050, L502.0250 #### [facility] [address] [place], [address] Bilirubin [Mass/Vol] 0.40 mg/dL Normal 0.20-1.00 [facility] Comment on above: Order Comment: ONLY NEILEN ORDER Result Comment: For patients on eltrombopag therapy, use of Dimension [place] TBIL is not recommended. Performed By: #### L 500.4100, L500.4050, L502.0250 #### [facility] [address] [place], [address] BUN/CRE 23.5 RATIO High 10-20 [facility] Comment on above: Order Comment: ONLY NEILEN ORDER Performed By: #### L 500.4100, L500.4050, L502.0250 #### [facility] [address] [place], [address] CA,Total 9.7 mg/dL Normal 8.5-10.1 [facility] Comment on above: Order Comment: ONLY NEILEN ORDER Performed By: #### L 500.4100, L500.4050, L502.0250 #### [facility] [address] [place], [address] Chloride [Moles/Vol] 103 mmol/L Normal 98-107 [facility] Comment on above: Order Comment: ONLY NEILEN ORDER Performed By: #### L 500.4100, L500.4050, L502.0250 #### [facility] [address] [place], [address] CO2 [Moles/Vol] 25.0 mmol/L Normal 21.0-32.0 [facility] Comment on above: Order Comment: ONLY NEILEN ORDER Performed By: #### L 500.4100, L500.4050, L502.0250 #### [facility] [address] [place], [address] Creatinine [Mass/Vol] 0.89 mg/dL Normal 0.55-1.02 [facility] Comment on above: Order Comment: ONLY NEILEN ORDER Result Comment: The validity of the calculated GFR GFRAA in patients over 70 years has not been determined. Clinical correlation is essential. Performed By: #### L 500.4100, L500.4050, L502.0250 #### [facility] [address] [place], [address] EST GFR - AA 80 mL/min Normal >60 [facility] Comment on above: Order Comment: ONLY NEILEN ORDER Result Comment: Afri can [place] GFR Calc Performed By: #### L 500.4100, L500.4050, L502.0250 #### [facility] [address] [place], [address] GAP 10 Normal 5-15 [facility] Comment on above: Order Comment: ONLY NEILEN ORDER Performed By: #### L 500.4100, L500.4050, L502.0250 #### [facility] [address] [place], [address] GFR/1.73 sq M.predicted among non-blacks MDRD (S/P/Bld) [Vol rate/Area] 66 mL/min/{1.73_m2} Normal >60 [facility] Comment on above: Order Comment: ONLY NEILEN ORDER Result Comment: Non- GFR Calc Performed By: #### L 500.4100, L500.4050, L502.0250 #### [facility] [address] [place], [address] Globulin (S) [Mass/Vol] 3.7 g/dL Normal 2.2-4.2 [facility] Comment on above: Order Comment: ONLY NEILEN ORDER Performed By: #### L 500.4100, L500.4050, L502.0250 #### [facility] [address] [place], [address] Glucose [Mass/Vol] 135 mg/dL High 74-106 [facility] Comment on above: Order Comment: ONLY NEILEN ORDER Result Comment: Fast ing Glucose result greater than or equal to 126 mg/dL suggests DIABETES MELLITUS per A.D.A. criteria. Performed By: #### L 500.4100, L500.4050, L502.0250 #### [facility] [address] [place], [address] Potassium [Moles/Vol] 3.5 mmol/L Normal 3.5-5.1 [facility] Comment on above: Order Comment: ONLY NEILEN ORDER Performed By: #### L 500.4100, L500.4050, L502.0250 #### [facility] [address] [place], [address] Sodium [Moles/Vol] 138 mmol/L Normal 136-145 [facility] Comment on above: Order Comment: ONLY NEILEN ORDER Performed By: #### L 500.4100, L500.4050, L502.0250 #### [facility] [address] [place], [address] T PROT 7.4 g/dL Normal 6.4-8.2 [facility] Comment on above: Order Comment: ONLY NEILEN ORDER Performed By: #### L 500.4100, L500.4050, L502.0250 #### [facility] [address] [place], [address] Urea nitrogen [Mass/Vol] 21 mg/dL High 7-18 [facility] Comment on above: Order Comment: ONLY NEILEN ORDER Performed By: #### L 500.4100, L500.4050, L502.0250 #### [facility] [address] [place], [address] Lipid Profileon 07-27-2024 Cholesterol [Mass/Vol] 141 mg/dL Normal [address] [facility] Comment on above: Order Comment: ONLY NEILEN ORDER Result Comment: <200 mg/dL Desirable 200-240 mg/dL Borderline >240 mg/dL High Risk Performed By: #### L 500.4100, L500.4050, L502.0250 #### [facility] [address] [place], [address] Cholesterol in HDL [Mass/Vol] 50 mg/dL Normal [facility] Comment on above: Order Comment: ONLY NEILEN ORDER Result Comment: The drugs N-Acetylcysteine and Metamizole may falsely depress this assay. Reference Range HDL <40 mg/dL Low HDL Cholesterol HDL >or= 60 mg/dL High HDL Cholesterol Performed By: #### L 500.4100, L500.4050, L502.0250 #### [facility] [address] [place], [address] Cholesterol in LDL [Mass/Vol] 53 mg/dL Normal 0-130 [facility] Comment on above: Order Comment: ONLY NEILEN ORDER Performed By: #### L 500.4100, L500.4050, L502.0250 #### [facility] [address] [place], [address] Cholesterol in VLDL [Mass/Vol] 38 mg/dL Normal 5-40 [facility] Comment on above: Order Comment: ONLY NEILEN ORDER Performed By: #### L 500.4100, L500.4050, L502.0250 #### [facility] [address] [place], [address] Triglyceride [Mass/Vol] 191 mg/dL Normal [facility] Comment on above: Order Comment: ONLY NEILEN ORDER Result Comment: The drugs N-Acetylcysteine and Metamizole may falsely depress this assay. Serum Triglycerides Reference Interval Normal <150 mg/dL Borderline high 150 - 199 mg/dL High 200 - 499 mg/dL Very High > or = 500 mg/dL Performed By: #### L 500.4100, L500.4050, L502.0250 #### [facility] [address] [place], [address] Microalb:Creat Ratio,Random URon 07-27-2024 Creatinine [Mass/Vol] 127.00 mg/dL Normal NO RAN GE EST. [facility] Comment on above: Performed By: #### L 500.4100, L500.4050, L502.0250 #### [facility] [address] [place], [address] MALB:CRE 35.7 mg/g CRE High <30 mg/g CRE [facility] Comment on above: Performed By: #### L 500.4100, L500.4050, L502.0250 #### [facility] [address] [place], [address] MICROALBUMIN,UR 45.3 mg/L Normal NO RANGE EST. [facility] Comment on above: Performed By: #### L 500.4100, L500.4050, L502.0250 #### [facility] [address] [place], [address] Chest without Contraston Chest without Contrast [facility] Imaging Services [address] [place] [address] Chest without Contrast MR#: [id number] Acct: [id number] Name: RAVI BECKHAM Rep #: [id number] : 1950 F 74 From: Jeremy Tinajero MD PCP: Dr. Misael Molina MD Status: REG CL Study: Chest without Contrast Date of Exam: 07/15/24 Exam# [id number] Ordering Dr: Dax Terry MD [id number] EXAM: CT CHEST WITHOUT INTRAVENOUS CONTRAST CLINICAL [...] Misael Molina MD; Dr. 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 [place] [address] OFFICE VISIT Date of Service: 07/06/24 MR#: [id number] Acct: [id number] Name: RAVI BECKHAM Rep #: [id number] : 1950 Provider: BRANDEN Haas Age/Sex: 74/F Location[facility] Status: Signed 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 Normal [facility] Basophil percentageOrdered B y: Misael Molina on 12-02-2023 Chloride [Moles/Vol] 104 mmol/L 98-107 [facility] Cholesterol [Mass/Vol] 173 mg/dL <200 [facility] Comment on above: <200 mg/dL Desirable 200-240 mg/dL Borderline >240 mg/dL High Risk Glucose [Mass/Vol] 168 mg/dL 74-106 [facility] Comment on above: Fasting Glucose resu lt greater than or equal to 126 mg/dL suggests DIABETES MELLITUS per A.D.A. criteria. Potassium [Moles/Vol] 4.1 mmol/L 3.5-5.1 [facility] Sodium [Moles/Vol] 139 mmol/L 136-145 [facility] Triglyceride [Mass/Vol] 181 mg/dL <199 [facility] Comment on above: The drugs N-Acetylcy steine and Metamizole may falsely depress this assay.Serum Triglycerides Reference Interval Normal <150 mg/dL Borderline high 150 - 199 mg/dL High 200 - 499 mg/dL Very High > or = 500 mg/dL Laboratory - Chemistry and C hemistry - challengeOrdered By: Misael Molina on 12-02-2023 Cholesterol in HDL [Mass/Vol] 50 mg/dL >40 [facility] Comment on above: The drugs N-Acetylcy steine and Metamizole may falsely depress this assay. Reference Range HDL <40 mg/dL Low HDL Cholesterol HDL >or= 60 mg/dL High HDL Cholesterol Cholesterol in LDL [Mass/Vol] 87 mg/dL 0-130 [facility] CO2 [Moles/Vol] 27.0 mmol/L 21.0-32.0 [facility] Urea nitrogen/Creatinine [Mass ratio] 19.4 mg/mg 10-20 [facility] No Panel InformationOrdered By: Misael Molina on 12-02-2023 Estimated GFR (MDRD) Amer 76 mL/min >60 [facility] Comment on above: GFR Calc Estimated GFR (MDRD) Non-Af Amer 63 mL/min >60 [facility] Comment on above: Non- GFR Calc Urine Microalbumin/Creatinine Ratio 20.4 mg/g CRE <30 [facility] VLDL Cholesterol 36 mg/dL 5-40 [facility] Serum or plasma calcium ana urement (mass/volume)Ordered By: Misael Molina on 12-02-2023 Calcium [Mass/Vol] 9.7 mg/dL 8.5-10.1 [facility] Serum or plasma creatinine m easurement (mass/volume)Ordered By: Misael Molina on 12-02-2023 Creatinine [Mass/Vol] 0.93 mg/dL 0.55-1.02 [facility] Comment on above: The validity of the calculated GFR & GFRAA in patients over 70 years has not been determined. Clinical correlation is essential. Serum or plasma urea nitroge n measurement (mass/volume)Ordered By: Misael Molina on 12-02-2023 Urea nitrogen [Mass/Vol] 18 mg/dL 7-18 [facility] Thin prep Papanicolaou smear with manual screeningOrdered By: Misael Molina on 12-02-2023 Thin prep Papanicolaou smear with manual screening 8 5-15 [facility] Thin prep Papanicolaou smear with manual screening 28.7 mg/L NO RANGE EST. [facility] Urine creatinine measurement (mass/volume)Ordered By: Misael Molina on 12-02-2023 Creatinine (U) [Mass/Vol] 141.00 mg/dL NO RANGE EST. [facility] Whole blood hemoglobin A1c/t otal hemoglobin ratio (mass fraction)Ordered By: Misael Molina on 12-02-2023 HbA1c (Bld) [Mass fraction] 7.2 % 3.8-5.6 [facility] Comment on above: Normal < 5.7 % Predi abetic 5.7 - 6.4 % Diabetic >or= 6.5 % Please note range changes. Culture, urineOrdered By: Branden Molina on 06-25-2023 Bacteria identified Cx Nom (U) Citrobacter freundii [facility] Basophil percentageOrdered B y: Misael Molina on 06-08-2023 Chloride [Moles/Vol] 100 mmol/L 98-107 [facility] Cholesterol [Mass/Vol] 185 mg/dL <200 [facility] Comment on above: <200 mg/dL Desirable 200-240 mg/dL Borderline >240 mg/dL High Risk Glucose [Mass/Vol] 152 mg/dL 74-106 [facility] Comment on above: Fasting Glucose resu lt greater than or equal to 126 mg/dL suggests DIABETES MELLITUS per A.D.A. criteria. Potassium [Moles/Vol] 3.9 mmol/L 3.5-5.1 [facility] Sodium [Moles/Vol] 136 mmol/L 136-145 [facility] Triglyceride [Mass/Vol] 254 mg/dL <199 [facility] Comment on above: The drugs N-Acetylcy steine and Metamizole may falsely depress this assay.Serum Triglycerides Reference Interval Normal <150 mg/dL Borderline high 150 - 199 mg/dL High 200 - 499 mg/dL Very High > or = 500 mg/dL Laboratory - Chemistry and C hemistry - challengeOrdered By: Misael Molina on 06-08-2023 CO2 [Moles/Vol] 26.0 mmol/L 21.0-32.0 [facility] Urea nitrogen/Creatinine [Mass ratio] 14.1 mg/mg 10-20 [facility] No Panel InformationOrdered By: Misael Molina on 06-08-2023 Estimated GFR (MDRD) Amer 85 mL/min >60 [facility] Comment on above: GFR Calc Estimated GFR (MDRD) Non-Af Amer 70 mL/min >60 [facility] Comment on above: Non- GFR Calc Serum or plasma calcium ana urement (mass/volume)Ordered By: Misael Molina on 06-08-2023 Calcium [Mass/Vol] 9.7 mg/dL 8.5-10.1 [facility] Serum or plasma cholesterol in HDL measurement (mass/volume)Ordered By: Misael Molina on 06-08-2023 Cholesterol in HDL [Mass/Vol] 48 mg/dL >40 [facility] Comment on above: The drugs N-Acetylcy steine and Metamizole may falsely depress this assay. Reference Range HDL <40 mg/dL Low HDL Cholesterol HDL >or= 60 mg/dL High HDL Cholesterol Serum or plasma cholesterol in VLDL measurement (mass/volume)Ordered By: Misael Molina on 06-08-2023 Cholesterol in VLDL [Mass/Vol] 51 mg/dL 5-40 [facility] Serum or plasma creatinine m easurement (mass/volume)Ordered By: Misael Molina on 06-08-2023 Creatinine [Mass/Vol] 0.85 mg/dL 0.55-1.02 [facility] Comment on above: The validity of the calculated GFR & GFRAA in patients over 70 years has not been determined. Clinical correlation is essential. Serum or plasma low density lipoprotein (LDL) cholesterol measurement (mass/volume)Ordered By: Misael Molina on 06-08-2023 Cholesterol in LDL [Mass/Vol] 86 mg/dL 0-130 [facility] Serum or plasma urea nitroge n measurement (mass/volume)Ordered By: Misael Molina on 06-08-2023 Urea nitrogen [Mass/Vol] 12 mg/dL 7-18 [facility] Thin prep Papanicolaou smear with manual screeningOrdered By: Misael Molina on 06-08-2023 Thin prep Papanicolaou smear with manual screening 10 5-15 [facility] Glucose Glucometer (BldC) [M ass/Vol]Ordered By: Maurilio Mcmnaus on 01-27-2023 Glucose [Mass/Vol] 171 mg/dL 74-106 [facility] Comment on above: MANAGEMENT OF PATIEN T CARE PER NURSING PROTOCOL Absolute lymphocyte countOrd ered By: Dr. Terry on 01-26-2023 Lymphocytes Auto (Unsp spec) [#/Vol] 2.49 10*3/uL 0.83-4.51 [facility] Atypical perinuclear antineu trophil cytoplasmic antibodies measurementOrdered By: Dr. Terry on 01-26-2023 Neutrophil cytoplasmic Ab.perinuclear.atypical IF (S) [Titer] <1:20 titer Neg:<1:20 [facility] Comment on above: The atypical pANCA p attern has been observed in asignificant percentage of patients with ulcerative colitis,primary sclerosing cholangitis and autoimmune hepatitis. Basophil percentageOrdered B y: Dr. Terry on 01-26-2023 Basophil percentage < 0.2 AI 0.0-0.9 [facility] Basophils/100 WBC (Bld) 0.5 % 0-1 [facility] Bilirubin [Mass/Vol] 0.40 mg/dL 0.20-1.00 [facility] Comment on above: For patients on eltr ombopag therapy, use of Dimension [place] TBIL is not recommended. Eosinophils/100 WBC (Bld) 2.0 % 0-5 [facility] Neutrophils (Bld) [#/Vol] 6.4 10*3/uL 2.0-7.7 [facility] Neutrophils/100 WBC (Bld) 65.7 % 47-70 [facility] Protein [Mass/Vol] 8.2 g/dL 6.4-8.2 [facility] WBC (Bld) [#/Vol] 9.7 10*3/uL 4.4-11.0 [facility] Blood erythrocytes count (nu mber/volume)Ordered By: Dr. Terry on 01-26-2023 RBC (Bld) [#/Vol] 4.15 10*6/uL 4.2-5.4 [facility] Blood hemoglobin measurement (mass/volume)Ordered By: Dr. Terry on 01-26-2023 Hemoglobin (Bld) [Mass/Vol] 12.6 g/dL 12.0-15.0 [facility] Blood lymphocytes/100 leukoc ytesOrdered By: Dr. Terry on 01-26-2023 Lymphocytes/100 WBC (Bld) 25.8 % 19-41 [facility] Blood monocytes/100 leukocyt esOrdered By: Dr. Terry on 01-26-2023 Monocytes/100 WBC (Bld) 5.7 % 0-10 [facility] Blood platelet mean volumeOr dered By: Dr. Terry on 01-26-2023 Platelet mean volume (Bld) [Entitic vol] 9.3 fL 6.2-12.0 [facility] Determination of erythrocyte mean corpuscular volume (MCV)Ordered By: Dr. Terry on 01-26-2023 MCV (RBC) [Entitic vol] 96.1 fL 81-99 [facility] Direct bilirubinOrdered By: Dr. Terry on 01-26-2023 Bilirubin.direct [Mass/Vol] 0.11 mg/dL 0.00-0.30 [facility] Erythrocyte sedimentation ra teOrdered By: Dr. Terry on 01-26-2023 ESR (Bld) [Velocity] 20 mm/h 0-30 [facility] Hematocrit Auto (Bld) [Volum e fraction]Ordered By: Dr. Terry on 01-26-2023 Hematocrit (Bld) [Volume fraction] 39.9 % 37-47 [facility] Laboratory - Chemistry and C hemistry - challengeOrdered By: Dr. Terry on 01-26-2023 ALP [Catalytic activity/Vol] 76 U/L 45-117 [facility] ALT [Catalytic activity/Vol] 28 U/L 13-56 [facility] Globulin (S) [Mass/Vol] 3.8 g/dL 2.2-4.2 [facility] Laboratory - Hematology and Cell countsOrdered By: Dr. Terry on 01-26-2023 Erythrocyte distribution width (RBC) [Entitic vol] 46.6 fL 35.1-43.9 [facility] Erythrocyte distribution width (RBC) [Ratio] 13.2 % 11.6-14.6 [facility] Immature granulocytes/100 WBC (Bld) 0.300 % 0.0-0.9 [facility] Comment on above: IG% - Immature Granu locytes (promyelocytes, myelocytes and metamyelocytes) > 1% indicates that a LEFT SHIFT is Present. MCH (RBC) [Entitic mass] 30.4 pg 27.0-32.0 [facility] Nucleated RBC/100 WBC (Bld) [Ratio] 0 % 0-5 [facility] MCHC Auto (RBC) [Mass/Vol]Or dered By: Dr. Terry on 01-26-2023 MCHC (RBC) [Mass/Vol] 31.6 g/dL 32-36 [facility] No Panel InformationOrdered By: Dr. Terry on 01-26-2023 Anti-Nuclear Antibody Screen Negative Negative [facility] Comment on above: Performed at: [employer] [address] Director: Chuck Crabtree PhD, Phone: [phone] [employer] Antibody <0.2 AI 0.0-0.9 [facility] Platelets bldOrdered By: Dr. Terry on 01-26-2023 Platelets (Bld) [#/Vol] 436 10*3/uL 150-450 [facility] Serum DNA double strand anti body assay (units/volume)Ordered By: Dr. Terry on 01-26-2023 DNA double strand Ab Qn (S) [IU]/mL 0-9 [facility] Comment on above: Negative <5 Equivoca l 5 - 9 Positive >9 Serum Scl-70 extractable nuc lear antibody assay (units/volume)Ordered By: Dr. Terry on 01-26-2023 SCL-70 extractable nuclear Ab Qn (S) <0.2 AI 0.0-0.9 [facility] Serum classic neutrophil cyt oplasmic antibody assay (units/volume)Ordered By: Dr. Terry on 01-26-2023 Neutrophil cytoplasmic Ab.classic Qn (S) <1:20 titer Neg:<1:20 [facility] Serum cyclic citrullinated p eptide IgG antibody assay (units/volume)Ordered By: Dr. Terry on 01-26-2023 Cyclic citrullinated peptide IgG Qn 6 units 0-19 [facility] Comment on above: Negative <20 Weak po sitive 20 - 39 Moderate positive 40 - 59 Strong positive >59Performed at: [address] [id number] Director: Chuck Crabtree PhD, Phone: [phone] Serum or plasma C reactive p rotein measurement (mass/volume)Ordered By: Dr. Terry on 01-26-2023 CRP [Mass/Vol] 3.32 mg/L 0.0-3.0 [facility] Comment on above: C-Reactive Protein ( CRP) provides useful information for thediagnosis, therapy and monitoring of inflammatory processesand associated diseases. For the evaluation of Relative Riskfor Cardiovascular Disease, a High Sensitivity CRP (HSCRP)should be ordered. Serum or plasma actin IgG an tibody assay (units/volume)Ordered By: Dr. Terry on 01-26-2023 Actin IgG Qn 5 Units 0-19 [facility] Comment on above: Negative 0 - 19 Weak positive 20 - 30 Moderate to strong positive >30 Actin Antibodies are found in 52-85% of patients with autoimmune hepatitis or chronic active hepatitis and in 22% of patients with primary biliary cirrhosis. Serum or plasma albumin ana urement (mass/volume)Ordered By: Dr. Terry on 01-26-2023 Albumin [Mass/Vol] 4.4 g/dL 3.2-5.0 [facility] Serum or plasma angiotensin converting enzyme measurement (enzymatic activity/volume)Ordered By: Dr. Terry on 01-26-2023 Angiotensin converting enzyme [Catalytic activity/Vol] 64 U/L 14-82 [facility] Serum perinuclear neutrophil cytoplasmic antibody titer by immunofluorescenceOrdered By: Dr. Terry on 01-26-2023 Neutrophil cytoplasmic Ab.perinuclear IF (S) [Titer] <1:20 titer Neg:<1:20 [facility] Comment on above: The presence of posi tive fluorescence exhibiting P-ANCA orC-ANCA patterns alone is not specific for the diagnosis ofWegener's Granulomatosis (WG) or microscopic polyangiitis.Decisions about treatment should not be based solely onANCA IFA results. The [employer] Consensusrecommends follow up testing of positive sera with both PA-3 and MPO-ANCA enzyme immunoassays. As many as 5% serumsamples are positive only by EIA. Ref. AM J Clin [id number];111:507-513. Serum rheumatoid factor dete ctionOrdered By: Dr. Terry on 01-26-2023 Rheumatoid factor Ql (S) < 10.0 IU/mL <15 [facility] Thin prep Papanicolaou smear with manual screeningOrdered By: Dr. Terry on 01-26-2023 Thin prep Papanicolaou smear with manual screening 18 U/L 15-37 [facility] Basophil percentageOrdered B y: Dr. Molina on 12-11-2022 Cholesterol [Mass/Vol] 156 mg/dL <200 [facility] Comment on above: <200 mg/dL Desirable 200-240 mg/dL Borderline >240 mg/dL High Risk Triglyceride [Mass/Vol] 182 mg/dL <199 [facility] Comment on above: The drugs N-Acetylcy steine and Metamizole may falsely depress this assay.Serum Triglycerides Reference Interval Normal <150 mg/dL Borderline high 150 - 199 mg/dL High 200 - 499 mg/dL Very High > or = 500 mg/dL Serum or plasma cholesterol in HDL measurement (mass/volume)Ordered By: Dr. Molina on 12-11-2022 Cholesterol in HDL [Mass/Vol] 46 mg/dL >40 [facility] Comment on above: The drugs N-Acetylcy steine and Metamizole may falsely depress this assay. Reference Range HDL <40 mg/dL Low HDL Cholesterol HDL >or= 60 mg/dL High HDL Cholesterol Serum or plasma cholesterol in VLDL measurement (mass/volume)Ordered By: Dr. Molina on 12-11-2022 Cholesterol in VLDL [Mass/Vol] 36 mg/dL 5-40 [facility] Serum or plasma low density lipoprotein (LDL) cholesterol measurement (mass/volume)Ordered By: Dr. Molina on 12-11-2022 Cholesterol in LDL [Mass/Vol] 74 mg/dL 0-130 [facility] Basophil percentageOrdered B y: Dr. Daniels on 11-13-2022 Chloride [Moles/Vol] 100 mmol/L 98-107 [facility] Glucose [Mass/Vol] 122 mg/dL 74-106 [facility] Comment on above: Fasting Glucose resu lt from 100 to 125 mg/dL suggests IMPAIRED HOMEOSTASIS per A.D.A. criteria. Potassium [Moles/Vol] 3.4 mmol/L 3.5-5.1 [facility] Sodium [Moles/Vol] 137 mmol/L 136-145 [facility] Laboratory - Chemistry and C hemistry - challengeOrdered By: Dr. Daniels on 11-13-2022 CO2 [Moles/Vol] 27.0 mmol/L 21.0-32.0 [facility] Urea nitrogen/Creatinine [Mass ratio] 21.3 mg/mg 10-20 [facility] No Panel InformationOrdered By: Dr. Daniels on 11-13-2022 Estimated GFR (MDRD) Amer 85 mL/min >60 [facility] Comment on above: GFR Calc Estimated GFR (MDRD) Non-Af Amer 70 mL/min >60 [facility] Comment on above: Non- GFR Calc Serum or plasma calcium ana urement (mass/volume)Ordered By: Dr. Daniels on 11-13-2022 Calcium [Mass/Vol] 8.9 mg/dL 8.5-10.1 [facility] Serum or plasma creatinine m easurement (mass/volume)Ordered By: Dr. Daniels on 11-13-2022 Creatinine [Mass/Vol] 0.85 mg/dL 0.55-1.02 [facility] Comment on above: The validity of the calculated GFR & GFRAA in patients over 70 years has not been determined. Clinical correlation is essential. Serum or plasma urea nitroge n measurement (mass/volume)Ordered By: Dr. Daniels on 11-13-2022 Urea nitrogen [Mass/Vol] 18 mg/dL 7-18 [facility] Thin prep Papanicolaou smear with manual screeningOrdered By: Dr. Daniels on 11-13-2022 Thin prep Papanicolaou smear with manual screening 10 5-15 [facility] Basophil percentageOrdered B y: Dr. Daniels on 11-04-2022 Chloride [Moles/Vol] 100 mmol/L 98-107 [facility] Glucose [Mass/Vol] 130 mg/dL 74-106 [facility] Comment on above: Fasting Glucose resu lt greater than or equal to 126 mg/dL suggests DIABETES MELLITUS per A.D.A. criteria. Potassium [Moles/Vol] 3.6 mmol/L 3.5-5.1 [facility] Sodium [Moles/Vol] 137 mmol/L 136-145 [facility] WBC (Bld) [#/Vol] 11.7 10*3/uL 4.4-11.0 [facility] Blood erythrocytes count (nu mber/volume)Ordered By: Dr. Daniels on 11-04-2022 RBC (Bld) [#/Vol] 3.93 10*6/uL 4.2-5.4 [facility] Blood hemoglobin measurement (mass/volume)Ordered By: Dr. Daniels on 11-04-2022 Hemoglobin (Bld) [Mass/Vol] 11.4 g/dL 12.0-15.0 [facility] Blood platelet mean volumeOr dered By: Dr. Daniels on 11-04-2022 Platelet mean volume (Bld) [Entitic vol] 9.1 fL 6.2-12.0 [facility] Determination of erythrocyte mean corpuscular volume (MCV)Ordered By: Dr. Daniels on 11-04-2022 MCV (RBC) [Entitic vol] 93.4 fL 81-99 [facility] Hematocrit Auto (Bld) [Volum e fraction]Ordered By: Dr. Daniels on 11-04-2022 Hematocrit (Bld) [Volume fraction] 36.7 % 37-47 [facility] INR in Blood by Coagulation assayOrdered By: Dr. Daniels on 11-04-2022 INR Coag (Bld) [Relative time] 1.1 {INR} [facility] Laboratory - Chemistry and C hemistry - challengeOrdered By: Dr. Daniels on 11-04-2022 CO2 [Moles/Vol] 28.0 mmol/L 21.0-32.0 [facility] Urea nitrogen/Creatinine [Mass ratio] 28.0 mg/mg 10-20 [facility] Laboratory - CoagulationOrde red By: Dr. Daniels on 11-04-2022 aPTT Coag (Bld) [Time] 32.2 s 24.1-36.2 [facility] PT Coag (PPP) [Time] 14.1 s 11.7-14.9 [facility] Laboratory - Hematology and Cell countsOrdered By: Dr. Daniels on 11-04-2022 Erythrocyte distribution width (RBC) [Entitic vol] 49.3 fL 35.1-43.9 [facility] Erythrocyte distribution width (RBC) [Ratio] 14.4 % 11.6-14.6 [facility] MCH (RBC) [Entitic mass] 29.0 pg 27.0-32.0 [facility] MCHC Auto (RBC) [Mass/Vol]Or dered By: Dr. Daniels on 11-04-2022 MCHC (RBC) [Mass/Vol] 31.1 g/dL 32-36 [facility] No Panel InformationOrdered By: Dr. Daniels on 11-04-2022 Estimated GFR (MDRD) Amer 93 mL/min >60 [facility] Comment on above: GFR Calc Estimated GFR (MDRD) Non-Af Amer 77 mL/min >60 [facility] Comment on above: Non- GFR Calc Platelets bldOrdered By: Dr. Daniels on 11-04-2022 Platelets (Bld) [#/Vol] 445 10*3/uL 150-450 [facility] Serum or plasma calcium ana urement (mass/volume)Ordered By: Dr. Daniels on 11-04-2022 Calcium [Mass/Vol] 9.3 mg/dL 8.5-10.1 [facility] Serum or plasma creatinine m easurement (mass/volume)Ordered By: Dr. Daniels on 11-04-2022 Creatinine [Mass/Vol] 0.78 mg/dL 0.55-1.02 [facility] Comment on above: The validity of the calculated GFR & GFRAA in patients over 70 years has not been determined. Clinical correlation is essential. Serum or plasma urea nitroge n measurement (mass/volume)Ordered By: Dr. Daniels on 11-04-2022 Urea nitrogen [Mass/Vol] 22 mg/dL 7-18 [facility] Thin prep Papanicolaou smear with manual screeningOrdered By: Dr. Daniels on 11-04-2022 Thin prep Papanicolaou smear with manual screening 9 5-15 [facility] Culture, urineOrdered By: Dr Abdelrahman Wagner on 08-08-2022 Bacteria identified Cx Nom (U) Klebsiella pneumoniae sp pneum [facility] Glucose Glucometer (BldC) [M ass/Vol]Ordered By: Dr. Wagner on 08-06-2022 Glucose [Mass/Vol] 135 mg/dL 74-106 [facility] Comment on above: MANAGEMENT OF PATIEN T CARE PER NURSING PROTOCOL Basophil percentageOrdered B y: Dr. Wagner on 08-05-2022 Basophil percentage >100 SEEN /hpf 0-5 [facility] Bilirubin Test strip Ql (U)O rdered By: Dr. Wagner on 08-05-2022 Bilirubin Ql (U) Negative Negative [facility] Ketones Test strip Ql (U)Ord ered By: Dr. Wagner on 08-05-2022 Ketones Ql (U) Negative Negative [facility] Mucus LM Ql (Urine sed)Order ed By: Dr. Wagner on 08-05-2022 Mucus Ql (Urine sed) 0 SEEN /hpf [facility] Nitrite Test strip Ql (U)Ord ered By: Dr. Wagner on 08-05-2022 Nitrite Ql (U) Negative Negative [facility] Protein Test strip Ql (U)Ord ered By: Dr. Wagner on 08-05-2022 Protein Ql (U) 15 mg/dl Negative [facility] Squamous epithelial cells de tection in urine sediment by light microscopyOrdered By: Dr. Wagner on 08-05-2022 Epithelial cells.squamous LM Ql (Urine sed) 0-5 SEEN /hpf 5-10 [facility] Urine blood detectionOrdered By: Dr. Wagner on 08-05-2022 RBC Ql (U) 25 /ul Negative [facility] RBC Ql (U) 5-10 SEEN /hpf 0-5 [facility] Urine clarityOrdered By: Dr. Wagner on 08-05-2022 Clarity (U) Sl. Cloudy Clear [facility] Urine color determinationOrd ered By: Dr. Wagner on 08-05-2022 Color (U) Yellow Yellow [facility] Urine glucose detectionOrder ed By: Dr. Wagner on 08-05-2022 Glucose Ql (U) Normal mg/dl Normal [facility] Urine leukocyte esterase det ection by dipstickOrdered By: Dr. Wagner on 08-05-2022 Leukocyte esterase Test strip Ql (U) 500 /ul Negative [facility] Urine pHOrdered By: Dr. Wagner on 08-05-2022 pH (U) 6.0 [pH] 5.0 - 8.0 [facility] Urine sediment bacteria coun t by microscopy (number/high power field)Ordered By: Dr. Wagner on 08-05-2022 Bacteria LM.HPF (Urine sed) [#/Area] 4 /[HPF] None Seen [facility] Urine specific gravity measu rementOrdered By: Dr. Wagner on 08-05-2022 Specific gravity (U) [Rel density] 1.010 1.002-1.03 0 [facility] Urobilinogen Auto test strip Ql (U)Ordered By: Dr. Wagner on 08-05-2022 Urobilinogen Ql (U) Normal mg/dl Normal [facility] Absolute lymphocyte countOrd ered By: Dr. Wagner on 07-31-2022 Lymphocytes Auto (Unsp spec) [#/Vol] 1.82 10*3/uL 0.83-4.51 [facility] Basophil percentageOrdered B y: Dr. Wagner on 07-31-2022 Basophils/100 WBC (Bld) 0.6 % 0-1 [facility] Chloride [Moles/Vol] 102 mmol/L 98-107 [facility] Eosinophils/100 WBC (Bld) 8.2 % 0-5 [facility] Glucose [Mass/Vol] 160 mg/dL 74-106 [facility] Comment on above: Fasting Glucose resu lt greater than or equal to 126 mg/dL suggests DIABETES MELLITUS per A.D.A. criteria. Neutrophils (Bld) [#/Vol] 7.3 10*3/uL 2.0-7.7 [facility] Neutrophils/100 WBC (Bld) 64.9 % 47-70 [facility] Potassium [Moles/Vol] 3.9 mmol/L 3.5-5.1 [facility] Sodium [Moles/Vol] 135 mmol/L 136-145 [facility] WBC (Bld) [#/Vol] 11.3 10*3/uL 4.4-11.0 [facility] Blood erythrocytes count (nu mber/volume)Ordered By: Dr. Wagner on 07-31-2022 RBC (Bld) [#/Vol] 3.57 10*6/uL 4.2-5.4 [facility] Blood hemoglobin measurement (mass/volume)Ordered By: Dr. Wagner on 07-31-2022 Hemoglobin (Bld) [Mass/Vol] 10.0 g/dL 12.0-15.0 [facility] Blood lymphocytes/100 leukoc ytesOrdered By: Dr. Wagner on 07-31-2022 Lymphocytes/100 WBC (Bld) 16.1 % 19-41 [facility] Blood monocytes/100 leukocyt esOrdered By: Dr. Wagner on 07-31-2022 Monocytes/100 WBC (Bld) 9.1 % 0-10 [facility] Blood platelet mean volumeOr dered By: Dr. Wagner on 07-31-2022 Platelet mean volume (Bld) [Entitic vol] 9.9 fL 6.2-12.0 [facility] Determination of erythrocyte mean corpuscular volume (MCV)Ordered By: Dr. Wagner on 07-31-2022 MCV (RBC) [Entitic vol] 89.9 fL 81-99 [facility] Hematocrit Auto (Bld) [Volum e fraction]Ordered By: Dr. Wagner on 07-31-2022 Hematocrit (Bld) [Volume fraction] 32.1 % 37-47 [facility] Laboratory - Chemistry and C hemistry - challengeOrdered By: Dr. Wagner on 07-31-2022 CO2 [Moles/Vol] 24.0 mmol/L 21.0-32.0 [facility] Urea nitrogen/Creatinine [Mass ratio] 18.2 mg/mg 10-20 [facility] Laboratory - Hematology and Cell countsOrdered By: Dr. Wagner on 07-31-2022 Erythrocyte distribution width (RBC) [Entitic vol] 54.6 fL 35.1-43.9 [facility] Erythrocyte distribution width (RBC) [Ratio] 16.6 % 11.6-14.6 [facility] Immature granulocytes/100 WBC (Bld) 1.100 % 0.0-0.9 [facility] Comment on above: IG% - Immature Granu locytes (promyelocytes, myelocytes and metamyelocytes) > 1% indicates that a LEFT SHIFT is Present. MCH (RBC) [Entitic mass] 28.0 pg 27.0-32.0 [facility] Nucleated RBC/100 WBC (Bld) [Ratio] 0 % 0-5 [facility] MCHC Auto (RBC) [Mass/Vol]Or dered By: Dr. Wagner on 07-31-2022 MCHC (RBC) [Mass/Vol] 31.2 g/dL 32-36 [facility] No Panel InformationOrdered By: Dr. Wagner on 07-31-2022 Estimated Creatinine Clearance Calc 49.93 ml/min [facility] Estimated GFR (MDRD) Amer 126 mL/min >60 [facility] Comment on above: GFR Calc Estimated GFR (MDRD) Non-Af Amer 104 mL/min >60 [facility] Comment on above: Non- GFR Calc Platelets bldOrdered By: Dr. Wagner on 07-31-2022 Platelets (Bld) [#/Vol] 447 10*3/uL 150-450 [facility] Serum or plasma calcium ana urement (mass/volume)Ordered By: Dr. Wagner on 07-31-2022 Calcium [Mass/Vol] 8.7 mg/dL 8.5-10.1 [facility] Serum or plasma creatinine m easurement (mass/volume)Ordered By: Dr. Wagner on 07-31-2022 Creatinine [Mass/Vol] 0.60 mg/dL 0.55-1.02 [facility] Comment on above: The validity of the calculated GFR & GFRAA in patients over 70 years has not been determined. Clinical correlation is essential. Serum or plasma urea nitroge n measurement (mass/volume)Ordered By: Dr. Wagner on 07-31-2022 Urea nitrogen [Mass/Vol] 11 mg/dL 7-18 [facility] Thin prep Papanicolaou smear with manual screeningOrdered By: Dr. Wagner on 07-31-2022 Thin prep Papanicolaou smear with manual screening 9 5-15 [facility] COVID-19 virus antigen assay Ordered By: Dr. Wagner on 07-03-2022 SARS-CoV-2 (COVID-19) Ag IA.rapid Ql (Resp) [facility] Glucose Glucometer (BldC) [M ass/Vol]on 07-02-2022 Glucose [Mass/Vol] 99 mg/dL 74-106 [facility] Work Phone: Comment on above: MANAGEMENT OF PATIEN T CARE PER NURSING PROTOCOL Basophil percentageon 2021 Chloride [Moles/Vol] 103 mmol/L 98-107 [facility] Work Phone: Glucose [Mass/Vol] 114 mg/dL 74-106 [facility] Work Phone: Comment on above: Fasting Glucose resu lt from 100 to 125 mg/dL suggests IMPAIRED HOMEOSTASIS per A.D.A. criteria. Potassium [Moles/Vol] 3.8 mmol/L 3.5-5.1 [facility] Work Phone: Sodium [Moles/Vol] 136 mmol/L 136-145 [facility] Work Phone: Blood hemoglobin measurement (mass/volume)on 06-30-2022 Hemoglobin (Bld) [Mass/Vol] 9.1 g/dL 12.0-15.0 [facility] Work Phone: Hematocrit Auto (Bld) [Volum e fraction]on 06-30-2022 Hematocrit (Bld) [Volume fraction] 28.8 % 37-47 [facility] Work Phone: Laboratory - Chemistry and C hemistry - challengeon 06-30-2022 CO2 [Moles/Vol] 28.0 mmol/L 21.0-32.0 [facility] Work Phone: Urea nitrogen/Creatinine [Mass ratio] 24.9 mg/mg 10-20 [facility] Work Phone: No Panel Informationon 06-30 Estimated Creatinine Clearance Calc 52.81 ml/min [facility] Work Phone: Estimated GFR (MDRD) Amer 202 mL/min >60 [facility] Work Phone: Comment on above: GFR Calc Estimated GFR (MDRD) Non-Af Amer 167 mL/min >60 [facility] Work Phone: Comment on above: Non- GFR Calc Serum or plasma calcium ana urement (mass/volume)on 06-30-2022 Calcium [Mass/Vol] 7.8 mg/dL 8.5-10.1 [facility] Work Phone: Serum or plasma creatinine m easurement (mass/volume)on 06-30-2022 Creatinine [Mass/Vol] 0.40 mg/dL 0.55-1.02 [facility] Work Phone: Comment on above: The validity of the calculated GFR & GFRAA in patients over 70 years has not been determined. Clinical correlation is essential. Serum or plasma urea nitroge n measurement (mass/volume)on 06-30-2022 Urea nitrogen [Mass/Vol] 10 mg/dL 7-18 [facility] Work Phone: Thin prep Papanicolaou smear with manual screeningon 06-30-2022 Thin prep Papanicolaou smear with manual screening 5 5-15 [facility] Work Phone: Absolute lymphocyte counton 06-29-2022 Lymphocytes Auto (Unsp spec) [#/Vol] 2.41 10*3/uL 0.83-4.51 [facility] Work Phone: Basophil percentageon 2021 Basophil percentage Not Reportable [facility] Work Phone: Neutrophils (Bld) [#/Vol] 7.8 10*3/uL 2.0-7.7 [facility] Work Phone: WBC (Bld) [#/Vol] 12.0 10*3/uL 4.4-11.0 [facility] Work Phone: Blood band neutrophil count as percentage of total leukocytesOrdered By: Dr. Wagner on 06-29-2022 Band form neutrophils/100 WBC (Bld) 2 % 0-5 [facility] Blood eosinophils/100 leukoc ytesOrdered By: Dr. Wagner on 06-29-2022 Eosinophils/100 WBC (Bld) 9 % 0-5 [facility] Blood erythrocytes count (nu mber/volume)on 06-29-2022 RBC (Bld) [#/Vol] 2.73 10*6/uL 4.2-5.4 [facility] Work Phone: Blood hemoglobin measurement (mass/volume)on 06-29-2022 Hemoglobin (Bld) [Mass/Vol] 7.7 g/dL 12.0-15.0 [facility] Work Phone: Blood lymphocytes/100 leukoc ytesOrdered By: Dr. Wagner on 06-29-2022 Lymphocytes/100 WBC (Bld) 20 % 19-41 [facility] Blood metamyelocytes/100 rylan kocytesOrdered By: Dr. Wagner on 06-29-2022 Metamyelocytes/100 WBC (Bld) 9 % 0-1 [facility] Blood monocytes/[address] leukocyt esOrdered By: [address] Wagner on 06-29-2022 Monocytes/100 WBC (Bld) 6 % 0-10 [facility] Blood platelet adequacy dete ction by light microscopyOrdered By: Dr. Wagner on 06-29-2022 Platelets LM Ql (Bld) MKD INC ADEQ [facility] Blood platelet mean volumeon 06-29-2022 Platelet mean volume (Bld) [Entitic vol] 8.6 fL 6.2-12.0 [facility] Work Phone: Blood segmented neutrophils/ [address] Wagner on 06-29-2022 Segmented neutrophils/100 WBC (Bld) 52 % 47-70 [facility] Determination of erythrocyte mean corpuscular volume (MCV)on 06-29-2022 MCV (RBC) [Entitic vol] 91.6 fL 81-99 [facility] Work Phone: Glucose Glucometer (BldC) [M ass/Vol]on 06-29-2022 Glucose [Mass/Vol] 111 mg/dL 74-106 [facility] Work Phone: Comment on above: MANAGEMENT OF PATIEN T CARE PER NURSING PROTOCOL Hematocrit Auto (Bld) [Volum e fraction]on 06-29-2022 Hematocrit (Bld) [Volume fraction] 25.0 % 37-47 [facility] Work Phone: Laboratory - Hematology and Cell countson 06-29-2022 Erythrocyte distribution width (RBC) [Entitic vol] 63.2 fL 35.1-43.9 [facility] Work Phone: Erythrocyte distribution width (RBC) [Ratio] 19.0 % 11.6-14.6 [facility] Work Phone: MCH (RBC) [Entitic mass] 28.2 pg 27.0-32.0 [facility] Work Phone: Laboratory - Hematology and Cell countsOrdered By: Dr. Wagner on 06-29-2022 Myelocytes/100 WBC (Bld) 2 % 0-0 [facility] MCHC Auto (RBC) [Mass/Vol]on 06-29-2022 MCHC (RBC) [Mass/Vol] 30.8 g/dL 32-36 [facility] Work Phone: Platelets bldon 06-29-2022 Platelets (Bld) [#/Vol] 728 10*3/uL 150-450 [facility] Work Phone: RBC morphologyOrdered By: Dr Abdelrahman Wagner on 06-29-2022 RBC morphology finding Nom (Bld) NORM C+C NORMAL NORM C&C [facility] Review by pathologiston 06-19 Pathologist review Marc (Unsp spec) [Interp] February [facility] Work Phone: Review by pathologistOrdered By: Dr. Wagner on 09-11-2022 Pathologist review Marc (Unsp spec) [Interp] Reviewed [facility] Comment on above: Previous reported re sult: February mason Edited by: RGOJOSE on 06/30/22:1346Leukocytosis with Neutrophilic left shift. Normocytic anemia.Thrombocytosis.Clinical correlation necessary.Basim Jay M.D. 06/30/22 AMENDED REPORT 06/30/22 1346 PATH REV previously reported as: February Total cell countOrdered By: Dr. Wagner on 06-29-2022 Cells counted Molgen (Bld/Tiss) [#] 100 MANUAL DIFF [facility] Basophil percentageon 2021 Basophils/100 WBC (Bld) 0.7 % 0-1 [facility] Work Phone: Eosinophils/100 WBC (Bld) 7.0 % 0-5 [facility] Work Phone: [phone] Chloride [Moles/Vol] 104 mmol/L 98-107 [facility] Work Phone: [phone] Glucose [Mass/Vol] 117 mg/dL 74-106 [facility] Work Phone: [phone] Comment on above: Fasting Glucose resu lt from 100 to 125 mg/dL suggests IMPAIRED HOMEOSTASIS per A.D.A. criteria. Potassium [Moles/Vol] 3.3 mmol/L 3.5-5.1 [facility] Work Phone: [phone] Sodium [Moles/Vol] 136 mmol/L 136-145 [facility] Work Phone: [phone] Blood lymphocytes/100 leukoc yteson 06-28-2022 Lymphocytes/100 WBC (Bld) 12.9 % 19-41 [facility] Work Phone: [phone] Blood manual differential co mment interpretation (narrative result)Ordered By: Dr. Wagner on 06-28-2022 Manual differential comment Marc (Bld) [Interp] SCANNED [facility] Blood monocytes/100 leukocyt eson 06-28-2022 Monocytes/100 WBC (Bld) 8.1 % 0-10 [facility] Work Phone: Laboratory - Chemistry and C hemistry - challengeon 06-28-2022 CO2 [Moles/Vol] 26.0 mmol/L 21.0-32.0 [facility] Work Phone: Urea nitrogen/Creatinine [Mass ratio] 20.1 mg/mg 10-20 [facility] Work Phone: Laboratory - Hematology and Cell countson 06-28-2022 Immature granulocytes/100 WBC (Bld) 3.900 % 0.0-0.9 [facility] Work Phone: Comment on above: IG% - Immature Granu locytes (promyelocytes, myelocytes and metamyelocytes) > 1% indicates that a LEFT SHIFT is Present. Nucleated RBC/100 WBC (Bld) [Ratio] 0 % 0-5 [facility] Work Phone: No Panel Informationon 06-28 Estimated Creatinine Clearance Calc 52.81 ml/min [facility] Work Phone: Estimated GFR (MDRD) Amer 285 mL/min >60 [facility] Work Phone: Comment on above: GFR Calc Estimated GFR (MDRD) Non-Af Amer 235 mL/min >60 [facility] Work Phone: Comment on above: Non- GFR Calc Serum or plasma calcium ana urement (mass/volume)on 06-28-2022 Calcium [Mass/Vol] 7.5 mg/dL 8.5-10.1 [facility] Work Phone: Serum or plasma creatinine m easurement (mass/volume)on 06-28-2022 Creatinine [Mass/Vol] 0.30 mg/dL 0.55-1.02 [facility] Work Phone: Comment on above: The validity of the calculated GFR & GFRAA in patients over 70 years has not been determined. Clinical correlation is essential. Serum or plasma urea nitroge n measurement (mass/volume)on 06-28-2022 Urea nitrogen [Mass/Vol] 6 mg/dL 7-18 [facility] Work Phone: Thin prep Papanicolaou smear with manual screeningon 06-28-2022 Thin prep Papanicolaou smear with manual screening 6 5-15 [facility] Work Phone: Cytology report of Body flui d Cyto stainOrdered By: Dr. Browne on 06-26-2022 Cytology report Cyto stain Doc (Body fld) SEE PATHOLOGY REPORT [facility] Comment on above: Specimen submitted t o Anatomical Pathology Department for testing. Laboratory - Hematology and Cell countsOrdered By: Dr. Wagner on 06-26-2022 Anisocytosis Ql (Bld) 2+ [facility] No Panel InformationOrdered By: Dr. Wagner on 06-26-2022 Atypical Lymphocytes 1+ % [facility] Basophil percentageon 2021 Basophil percentage >100 SEEN /hpf 0-5 [facility] Work Phone: Bilirubin Test strip Ql (U)o n 06-25-2022 Bilirubin Ql (U) Negative Negative [facility] Work Phone: Ketones Test strip Ql (U)on 06-25-2022 Ketones Ql (U) 5 mg/dl Negative [facility] Work Phone: Mucus LM Ql (Urine sed)on Mucus Ql (Urine sed) 0 SEEN /hpf [facility] Work Phone: Nitrite Test strip Ql (U)on 06-25-2022 Nitrite Ql (U) Positive Negative [facility] Work Phone: Protein Test strip Ql (U)on 06-25-2022 Protein Ql (U) 100 mg/dl Negative [facility] Work Phone: Squamous epithelial cells de tection in urine sediment by light microscopyon 06-25-2022 Epithelial cells.squamous LM Ql (Urine sed) 5-10 SEEN /hpf 5-10 [facility] Work Phone: Urine blood detectionon RBC Ql (U) 250 /ul Negative [facility] Work Phone: RBC Ql (U) > 100 SEEN /hpf 0-5 [facility] Work Phone: Urine clarityon 06-25-2022 Clarity (U) Turbid Clear [facility] Work Phone: Urine color determinationon 06-25-2022 Color (U) Red Yellow [facility] Work Phone: Urine glucose detectionon Glucose Ql (U) Normal mg/dl Normal [facility] Work Phone: Urine leukocyte esterase det ection by dipstickon 06-25-2022 Leukocyte esterase Test strip Ql (U) 500 /ul Negative [facility] Work Phone: Urine pHon 06-25-2022 pH (U) 6.5 [pH] 5.0 - 8.0 [facility] Work Phone: Urine sediment bacteria coun t by microscopy (number/high power field)on 06-25-2022 Bacteria LM.HPF (Urine sed) [#/Area] 4 /[HPF] None Seen [facility] Work Phone: [phone] Urine specific gravity measu rementon 06-25-2022 Specific gravity (U) [Rel density] 1.010 1.002-1.03 0 [facility] Work Phone: [phone] Urobilinogen Auto test strip Ql (U)on 06-25-2022 Urobilinogen Ql (U) Normal mg/dl Normal [facility] Work Phone: [phone] Absolute lymphocyte counton 06-18-2022 Lymphocytes Auto (Unsp spec) [#/Vol] 1.20 10*3/uL 0.83-4.51 [facility] Work Phone: Basophil percentageon 2021 Basophil percentage 2.6 mg/dL 2.5-4.9 [facility] Work Phone: [phone] Basophils/100 WBC (Bld) 0.3 % 0-1 [facility] Work Phone: [phone] Bilirubin [Mass/Vol] 0.20 mg/dL 0.20-1.00 [facility] Work Phone: [phone] Comment on above: For patients on eltr ombopag therapy, use of Dimension [place] TBIL is not recommended. Chloride [Moles/Vol] 104 mmol/L 98-107 [facility] Work Phone: Eosinophils/100 WBC (Bld) 4.6 % 0-5 [facility] Work Phone: Glucose [Mass/Vol] 93 mg/dL 74-106 [facility] Work Phone: Neutrophils (Bld) [#/Vol] 6.1 10*3/uL 2.0-7.7 [facility] Work Phone: Neutrophils/100 WBC (Bld) 71.3 % 47-70 [facility] Work Phone: Potassium [Moles/Vol] 4.2 mmol/L 3.5-5.1 [facility] Work Phone: Protein [Mass/Vol] 4.8 g/dL 6.4-8.2 [facility] Work Phone: Sodium [Moles/Vol] 136 mmol/L 136-145 [facility] Work Phone: WBC (Bld) [#/Vol] 8.6 10*3/uL 4.4-11.0 [facility] Work Phone: Blood erythrocytes count (nu mber/volume)on 06-18-2022 RBC (Bld) [#/Vol] 3.05 10*6/uL 4.2-5.4 [facility] Work Phone: Blood hemoglobin measurement (mass/volume)on 06-18-2022 Hemoglobin (Bld) [Mass/Vol] 8.5 g/dL 12.0-15.0 [facility] Work Phone: Blood lymphocytes/100 leukoc yteson 06-18-2022 Lymphocytes/100 WBC (Bld) 13.9 % 19-41 [facility] Work Phone: Blood monocytes/100 leukocyt eson 06-18-2022 Monocytes/100 WBC (Bld) 6.7 % 0-10 [facility] Work Phone: Blood platelet mean volumeon 06-18-2022 Platelet mean volume (Bld) [Entitic vol] 9.3 fL 6.2-12.0 [facility] Work Phone: Determination of erythrocyte mean corpuscular volume (MCV)on 06-18-2022 MCV (RBC) [Entitic vol] 88.5 fL 81-99 [facility] Work Phone: Glucose Glucometer (BldC) [M ass/Vol]on 06-18-2022 Glucose [Mass/Vol] 105 mg/dL 74-106 [facility] Work Phone: Comment on above: MANAGEMENT OF PATIEN T CARE PER NURSING PROTOCOL Hematocrit Auto (Bld) [Volum e fraction]on 06-18-2022 Hematocrit (Bld) [Volume fraction] 27.0 % 37-47 [facility] Work Phone: Laboratory - Chemistry and C hemistry - challengeon 06-18-2022 ALP [Catalytic activity/Vol] 89 U/L 45-117 [facility] Work Phone: ALT [Catalytic activity/Vol] 19 U/L 13-56 [facility] Work Phone: CO2 [Moles/Vol] 26.0 mmol/L 21.0-32.0 [facility] Work Phone: Globulin (S) [Mass/Vol] 3.8 g/dL 2.2-4.2 [facility] Work Phone: Magnesium [Mass/Vol] 2.1 mg/dL 1.6-2.6 [facility] Work [facility]: Urea nitrogen/Creatinine [Mass ratio] 43.7 mg/mg 10-20 [facility] Work Phone: Laboratory - Hematology and Cell countson 06-18-2022 Erythrocyte distribution width (RBC) [Entitic vol] 59.3 fL 35.1-43.9 [facility] Work Phone: Erythrocyte distribution width (RBC) [Ratio] 18.1 % 11.6-14.6 [facility] Work Phone: Immature granulocytes/100 WBC (Bld) 3.200 % 0.0-0.9 [facility] Work Phone: Comment on above: IG% - Immature Granu locytes (promyelocytes, myelocytes and metamyelocytes) > 1% indicates that a LEFT SHIFT is Present. MCH (RBC) [Entitic mass] 27.9 pg 27.0-32.0 [facility] Work Phone: Nucleated RBC/100 WBC (Bld) [Ratio] 0 % 0-5 [facility] Work Phone: MCHC Auto (RBC) [Mass/Vol]on 06-18-2022 MCHC (RBC) [Mass/Vol] 31.5 g/dL 32-36 [facility] Work Phone: No Panel Informationon 06-18 Estimated Creatinine Clearance Calc 52.81 ml/min [facility] Work Phone: Estimated GFR (MDRD) Amer 500 mL/min >60 [facility] Work Phone: Comment on above: GFR Calc Estimated GFR (MDRD) Non-Af Amer 413 mL/min >60 [facility] Work Phone: Comment on above: Non- GFR Calc Platelets bldon 06-18-2022 Platelets (Bld) [#/Vol] 409 10*3/uL 150-450 [facility] Work Phone: Serum or plasma albumin ana urement (mass/volume)on 06-18-2022 Albumin [Mass/Vol] 1.0 g/dL 3.2-5.0 [facility] Work Phone: Serum or plasma albumin/glob ulin mass ratioon 06-18-2022 Albumin/Globulin [Mass ratio] 0.3 {ratio} 0.9-2.4 [facility] Work Phone: Serum or plasma calcium ana urement (mass/volume)on 06-18-2022 Calcium [Mass/Vol] 7.0 mg/dL 8.5-10.1 [facility] Work Phone: Serum or plasma creatinine m easurement (mass/volume)on 06-18-2022 Creatinine [Mass/Vol] 0.18 mg/dL 0.55-1.02 [facility] Work Phone: Comment on above: The validity of the calculated GFR & GFRAA in patients over 70 years has not been determined. Clinical correlation is essential. Serum or plasma urea nitroge n measurement (mass/volume)on 06-18-2022 Urea nitrogen [Mass/Vol] 8 mg/dL 7-18 [facility] Work Phone: Thin prep Papanicolaou smear with manual screeningon 06-18-2022 Thin prep Papanicolaou smear with manual screening 16 U/L 15-37 [facility] Work Phone: Thin prep Papanicolaou smear with manual screening 6 5-15 [facility] Work Phone: Basophil percentageon 2021 Basophil percentage 5-10 SEEN /hpf 0-5 [facility] Work Phone: Bilirubin Test strip Ql (U)o n 06-13-2022 Bilirubin Ql (U) Negative Negative [facility] Work Phone: Ketones Test strip Ql (U)on 06-13-2022 Ketones Ql (U) Negative Negative [facility] Work Phone: Mucus LM Ql (Urine sed)on Mucus Ql (Urine sed) 0 SEEN /hpf [facility] Work Phone: Nitrite Test strip Ql (U)on 06-13-2022 Nitrite Ql (U) Negative Negative [facility] Work Phone: Protein Test strip Ql (U)on 06-13-2022 Protein Ql (U) 15 mg/dl Negative [facility] Work Phone: Squamous epithelial cells de tection in urine sediment by light microscopyon 06-13-2022 Epithelial cells.squamous LM Ql (Urine sed) 0 SEEN /hpf 5-10 [facility] Work Phone: [phone] Urine blood detectionon 05-20 RBC Ql (U) 50 /ul Negative [facility] Work Phone: RBC Ql (U) 0 SEEN /hpf 0-5 [facility] Work Phone: [phone] Urine clarityon 06-13-2022 Clarity (U) Clear Clear [facility] Work Phone: [phone] Urine color determinationon 06-13-2022 Color (U) Yellow Yellow [facility] Work Phone: [phone] Urine glucose detectionon Glucose Ql (U) Normal mg/dl Normal [facility] Work Phone: [phone] Urine leukocyte esterase det ection by dipstickon 06-13-2022 Leukocyte esterase Test strip Ql (U) 25 /ul Negative [facility] Work Phone: [phone] Urine pHon 06-13-2022 pH (U) 6.0 [pH] 5.0 - 8.0 [facility] Work Phone: [phone] Urine sediment bacteria coun t by microscopy (number/high power field)on 06-13-2022 Bacteria LM.HPF (Urine sed) [#/Area] 0 /[HPF] None Seen [facility] Work Phone: Urine sediment yeast count b y microscopy (number/high powered field)on 06-13-2022 Yeast LM.HPF (Urine sed) [#/Area] 1 /[HPF] None Seen [facility] Work Phone: [phone] Urine specific gravity measu rementon 06-13-2022 Specific gravity (U) [Rel density] 1.015 1.002-1.03 0 [facility] Work Phone: [phone] Urobilinogen Auto test strip Ql (U)on 06-13-2022 Urobilinogen Ql (U) Normal mg/dl Normal [facility] Work Phone: [phone] Blood eosinophils/100 leukoc yteson 06-09-2022 Eosinophils/100 WBC (Bld) 11 % 0-5 [facility] Work Phone: Blood lymphocytes/100 leukoc yteson 06-09-2022 Lymphocytes/100 WBC (Bld) 12 % 19-41 [facility] Work Phone: Blood metamyelocytes/100 rylan kocyteson 06-09-2022 Metamyelocytes/100 WBC (Bld) 3 % 0-1 [facility] Work Phone: Blood monocytes/100 leukocyt eson 06-09-2022 Monocytes/100 WBC (Bld) 1 % 0-10 [facility] Work Phone: Blood platelet adequacy dete ction by light microscopyon 06-09-2022 Platelets LM Ql (Bld) ADEQUATE ADEQ [facility] Work Phone: Blood segmented neutrophils/ 100 leukocyteson 06-09-2022 Segmented neutrophils/100 WBC (Bld) 72 % 47-70 [facility] Work Phone: [phone] Laboratory - Hematology and Cell countson 06-09-2022 Anisocytosis Ql (Bld) 2+ [facility] Work Phone: Myelocytes/100 WBC (Bld) 1 % 0-0 [facility] Work Phone: [phone] Review by pathologiston 05-20 Pathologist review Marc (Unsp spec) [Interp] Reviewed [facility] Work Phone: [phone] Comment on above: Previous reported re sult: Misa cuevas Edited by: SUZANNE on 06/10/22:0912Neutrophilic leukocytosis with left shift. Normocytic anemia.Clinical correlation necessary.Basim Jay M.D. 06/10/22 AMENDED REPORT 06/10/22 0912 PATH REV previously reported as: Misa cuevas Total cell counton 2 Cells counted Molgen (Bld/Tiss) [#] 100 MANUAL DIFF [facility] Work Phone: [phone] Blood band neutrophil count as percentage of total leukocyteson 06-08-2022 Band form neutrophils/100 WBC (Bld) 7 % 0-5 [facility] Work Phone: Blood promyelocytes/100 leuk ocyteson 06-08-2022 Promyelocytes/100 WBC (Bld) 1 % 0-0 [facility] Work Phone: No Panel Informationon 06-08 Miscellaneous Test See comment [facility] Work [facility]: Comment on above: TEST RESULT LIMITSHi stoplasma Gal'barrera Ag Ser <0.5 ng/mL < 0.5This test was developed and its performance characteristicsdetermined by [employer]. It has not been cleared or approvedby the U.S. Food and Drug Administration. TESTING PERFORMED AT [facility]. ORIGINAL REPORT ON FILE IN LAB CONTAINS ADDITIONAL TEST SITE INFORMATION. Serum Aspergillus flavus ant ibody detection by immunodiffusionon 06-08-2022 A. flavus Ab Immune diff Ql (S) Negative Neg:<1:1 [facility] Work Phone: Serum Aspergillus fumigatus antibody detection by immunodiffusionon 06-08-2022 A. fumigatus Ab Immune diff Ql (S) Negative Neg:<1:1 [facility] Work Phone: Serum Aspergillus niger anti body detection by immunodiffusionon 06-08-2022 A. niger Ab Immune diff Ql (S) Negative Neg:<1:1 [facility] Work Phone: Comment on above: Performed at: [address] [id number] Director: Georgi Rollins MD, Phone: [phone] Serum beta 2 glycoprotein 1 IgA antibody detectionon 06-08-2022 Beta 2 glycoprotein 1 IgA Ql (S) <9 0-25 [facility] Work Phone: Comment on above: Result Units: GPI Ig A unitsThe reference interval reflects a 3SD or 99th percentileinterval, which is thought to represent a potentiallyclinically significant result in accordance with theInternational Consensus Statement on the classificationcriteria for definitive antiphospholipid syndrome (APS). JThromb Haem 2006;4:295-306. Serum beta 2 glycoprotein 1 IgG antibody detectionon 06-08-2022 Beta 2 glycoprotein 1 IgG Ql (S) <9 0-20 [facility] Work Phone: Comment on above: Result Units: GPI Ig G unitsThe reference interval reflects a 3SD or 99th percentileinterval, which is thought to represent a potentiallyclinically significant result in accordance with theInternational Consensus Statement on the classificationcriteria for definitive antiphospholipid syndrome (APS). JThromb Haem 2006;4:295-306. Serum beta 2 glycoprotein 1 IgM antibody detectionon 06-08-2022 Beta 2 glycoprotein 1 IgM Ql (S) <9 0-32 [facility] Work Phone: Comment on above: Result Units: GPI Ig M unitsThe reference interval reflects a 3SD or 99th percentileinterval, which is thought to represent a potentiallyclinically significant result in accordance with theInternational Consensus Statement on the classificationcriteria for definitive antiphospholipid syndrome (APS). JThromb Haem 2006;4:295-306.Performed at: [address] [id number] Director: Georgi Rollins MD, Phone: [phone] Serum or plasma cortisol isiah surement (mass/volume)on 06-08-2022 Cortisol [Mass/Vol] 45.90 ug/dL 3.44-22.45 [facility] Work Phone: Comment on above: Adult (AM) 5.27 - 22 .45 ug/dL Adult (PM) 3.44 - 16.76 ug/dLPlease note revised CORTISOL reference range effective 2019. INR in Blood by Coagulation assayon 06-07-2022 INR Coag (Bld) [Relative time] 1.2 {INR} [facility] Work Phone: Laboratory - Coagulationon 0 06-07-2022 PT Coag (PPP) [Time] 15.0 s 11.7-14.9 [facility] Work Phone: RBC morphologyon 06-07-2022 RBC morphology finding Nom (Bld) NORM C+C NORMAL NORM C&C [facility] Work Phone: Absolute lymphocyte counton 06-06-2022 Lymphocytes Auto (Unsp spec) [#/Vol] 1.98 10*3/uL 0.83-4.51 [facility] Work Phone: Assessment of wrist artery p atency prior to arterial punctureon 06-06-2022 Arterial patency Wrist artery --pre arterial puncture Positive [facility] Work Phone: Base excesson 06-06-2022 Base excess Calc (BldV) [Moles/Vol] 0 mmol/L -2-2 [facility] Work Phone: [phone] Basophil percentageon 2021 Basophil percentage 0-5 SEEN /hpf 0-5 [facility] Work Phone: [phone] Basophil percentage 22.4 mmol/L 22-26 [facility] Work Phone: Basophils/100 WBC (Bld) 99 % 95-99 [facility] Work Phone: Basophils/100 WBC (Bld) 0.2 % 0-1 [facility] Work Phone: [phone] Bilirubin [Mass/Vol] 0.40 mg/dL 0.20-1.00 [facility] Work Phone: [phone] Comment on above: For patients on eltr ombopag therapy, use of Dimension [place] TBIL is not recommended. Chloride [Moles/Vol] 86 mmol/L 98-107 [facility] Work Phone: Eosinophils/100 WBC (Bld) 1.1 % 0-5 [facility] Work Phone: [phone] Glucose [Mass/Vol] 200 mg/dL 74-106 [facility] Work Phone: [phone] Comment on above: Glucose result great er than or equal to 200 mg/dLsuggests DIABETES MELLITUS per A.D.A. criteria. Lactate [Moles/Vol] 1.5 mmol/L 0.4-2.0 [facility] Work Phone: [phone] Neutrophils (Bld) [#/Vol] 21.2 10*3/uL 2.0-7.7 [facility] Work Phone: Neutrophils/100 WBC (Bld) 85.3 % 47-70 [facility] Work Phone: Potassium [Moles/Vol] 5.1 mmol/L 3.5-5.1 [facility] Work Phone: [phone] Protein [Mass/Vol] 6.4 g/dL 6.4-8.2 [facility] Work Phone: [phone] Sodium [Moles/Vol] 120 mmol/L 136-145 [facility] Work Phone: [phone] WBC (Bld) [#/Vol] 24.9 10*3/uL 4.4-11.0 [facility] Work Phone: [phone] Bilirubin Test strip Ql (U)o n 06-06-2022 Bilirubin Ql (U) Negative Negative [facility] Work Phone: [phone] Blood erythrocytes count (nu mber/volume)on 06-06-2022 RBC (Bld) [#/Vol] 2.90 10*6/uL 4.2-5.4 [facility] Work Phone: Blood hemoglobin measurement (mass/volume)on 06-06-2022 Hemoglobin (Bld) [Mass/Vol] 6.1 g/dL 12.0-15.0 [facility] Work Phone: Blood lymphocytes/100 leukoc yteson 06-06-2022 Lymphocytes/100 WBC (Bld) 8.0 % 19-41 [facility] Work Phone: [phone] Blood manual differential co mment interpretation (narrative result)on 06-06-2022 Manual differential comment Marc (Bld) [Interp] SCANNED [facility] Work Phone: [phone] Comment on above: NEUTROPHILIA NOTED Blood monocytes/100 leukocyt eson 06-06-2022 Monocytes/100 WBC (Bld) 2.3 % 0-10 [facility] Work Phone: [phone] Blood platelet mean volumeon 06-06-2022 Platelet mean volume (Bld) [Entitic vol] 10.2 fL 6.2-12.0 [facility] Work Phone: [phone] CO2 (BldA) [Partial pressure ]on 06-06-2022 CO2 (Bld) [Partial pressure] 26.3 mm[Hg] 35-45 [facility] Work Phone: [phone] Determination of erythrocyte mean corpuscular volume (MCV)on 06-06-2022 MCV (RBC) [Entitic vol] 88.3 fL 81-99 [facility] Work Phone: [phone] Hematocrit Auto (Bld) [Volum e fraction]on 06-06-2022 Hematocrit (Bld) [Volume fraction] 18.8 % 37-47 [facility] Work Phone: [phone] Ketones Test strip Ql (U)on 06-06-2022 Ketones Ql (U) 5 mg/dl Negative [facility] Work Phone: [phone] Laboratory - Chemistry and C hemistry - challengeon 06-06-2022 ALP [Catalytic activity/Vol] 124 U/L 45-117 [facility] Work Phone: [phone] ALT [Catalytic activity/Vol] 39 U/L 13-56 [facility] Work Phone: [phone] CO2 [Moles/Vol] 24.0 mmol/L 21.0-32.0 [facility] Work Phone: [phone] Globulin (S) [Mass/Vol] 4.6 g/dL 2.2-4.2 [facility] Work Phone: [phone] Urea nitrogen/Creatinine [Mass ratio] 57.8 mg/mg 10-20 [facility] Work Phone: Laboratory - Hematology and Cell countson 06-06-2022 Erythrocyte distribution width (RBC) [Entitic vol] 46.5 fL 35.1-43.9 [facility] Work Phone: Erythrocyte distribution width (RBC) [Ratio] 14.6 % 11.6-14.6 [facility] Work Phone: Immature granulocytes/100 WBC (Bld) 3.100 % 0.0-0.9 [facility] Work Phone: Comment on above: IG% - Immature Granu locytes (promyelocytes, myelocytes and metamyelocytes) > 1% indicates that a LEFT SHIFT is Present. MCH (RBC) [Entitic mass] 29.3 pg 27.0-32.0 [facility] Work Phone: Nucleated RBC/100 WBC (Bld) [Ratio] 0.1 % 0-5 [facility] Work Phone: MCHC Auto (RBC) [Mass/Vol]on 06-06-2022 MCHC (RBC) [Mass/Vol] 33.2 g/dL 32-36 [facility] Work Phone: Mucus LM Ql (Urine sed)on Mucus Ql (Urine sed) 0 SEEN /hpf [facility] Work Phone: Nitrite Test strip Ql (U)on 06-06-2022 Nitrite Ql (U) Negative Negative [facility] Work Phone: No Panel Informationon 06-06 Blood Gas Liter Flow 15.0 /min [facility] Work Phone: Blood Gas Sample Site L Radial [facility] Work Phone: Blood Gas Specimen Type ART [facility] Work Phone: Blood Gas Total CO2 23 mmol/L [facility] Work Phone: Oxygen Delivery Device NRB [facility] Work Phone: Estimated Creatinine Clearance Calc 45.52 ml/min [facility] Work Phone: Estimated GFR (MDRD) Amer 59 mL/min >60 [facility] Work Phone: Comment on above: GFR Calc Estimated GFR (MDRD) Non-Af Amer 49 mL/min >60 [facility] Work Phone: Comment on above: Non- GFR Calc Troponin I High Sensitivity 17 pg/mL 3.0-54.0 [facility] Work Phone: Comment on above: Please Note: [place] Units and Gender Specific Reference Ranges. For more information see Policy Stat Procedure [place] High Sensitivity Troponin (TNIH) and attachments. Oxygen (BldA) [Partial press ure]on 06-06-2022 Oxygen (Bld) [Partial pressure] 115 mmHG 75-100 [facility] Work Phone: Platelets bldon 06-06-2022 Platelets (Bld) [#/Vol] 490 10*3/uL 150-450 [facility] Work Phone: Protein Test strip Ql (U)on 06-06-2022 Protein Ql (U) 30 mg/dl Negative [facility] Work Phone: Serum or plasma albumin ana urement (mass/volume)on 06-06-2022 Albumin [Mass/Vol] 1.8 g/dL 3.2-5.0 [facility] Work Phone: Serum or plasma albumin/glob ulin mass ratioon 06-06-2022 Albumin/Globulin [Mass ratio] 0.4 {ratio} 0.9-2.4 [facility] Work Phone: Serum or plasma calcium ana urement (mass/volume)on 06-06-2022 Calcium [Mass/Vol] 8.9 mg/dL 8.5-10.1 [facility] Work Phone: Serum or plasma creatinine m easurement (mass/volume)on 06-06-2022 Creatinine [Mass/Vol] 1.16 mg/dL 0.55-1.02 [facility] Work Phone: Comment on above: The validity of the calculated GFR & GFRAA in patients over 70 years has not been determined. Clinical correlation is essential. Serum or plasma urea nitroge n measurement (mass/volume)on 06-06-2022 Urea nitrogen [Mass/Vol] 67 mg/dL 7-18 [facility] Work Phone: Squamous epithelial cells de tection in urine sediment by light microscopyon 06-06-2022 Epithelial cells.squamous LM Ql (Urine sed) 0 SEEN /hpf 5-10 [facility] Work Phone: Thin prep Papanicolaou smear with manual screeningon 06-06-2022 Thin prep Papanicolaou smear with manual screening 33 U/L 15-37 [facility] Work Phone: Thin prep Papanicolaou smear with manual screening 10 5-15 [facility] Work Phone: Urine blood detectionon 05-19 RBC Ql (U) 250 /ul Negative [facility] Work Phone: [phone] RBC Ql (U) 50-100 SEEN /hpf 0-5 [facility] Work Phone: [phone] Urine clarityon 06-06-2022 Clarity (U) Sl. Cloudy Clear [facility] Work Phone: Urine color determinationon 06-06-2022 Color (U) Yellow Yellow [facility] Work Phone: Urine glucose detectionon Glucose Ql (U) 50 mg/dl Normal [facility] Work Phone: Urine leukocyte esterase det ection by dipstickon 06-06-2022 Leukocyte esterase Test strip Ql (U) 25 /ul Negative [facility] Work Phone: Urine pHon 06-06-2022 pH (U) 6.0 [pH] 5.0 - 8.0 [facility] Work Phone: [phone] Urine sediment bacteria coun t by microscopy (number/high power field)on 06-06-2022 Bacteria LM.HPF (Urine sed) [#/Area] RARE /hpf None Seen [facility] Work Phone: Urine specific gravity measu rementon 06-06-2022 Specific gravity (U) [Rel density] 1.010 1.002-1.03 0 [facility] Work Phone: Urobilinogen Auto test strip Ql (U)on 06-06-2022 Urobilinogen Ql (U) Normal mg/dl Normal [facility] Work Phone: pH measurementon 06-06-2022 pH (Unsp spec) 7.54 [pH] 7.35-7.45 [facility] Work Phone: Absolute lymphocyte counton 06-03-2022 Lymphocytes Auto (Unsp spec) [#/Vol] 0.94 10*3/uL 0.83-4.51 [facility] Work Phone: [phone] Basophil percentageon 2021 Basophils/100 WBC (Bld) 0.2 % 0-1 [facility] Work Phone: Chloride [Moles/Vol] 86 mmol/L 98-107 [facility] Work Phone: [phone] Eosinophils/100 WBC (Bld) 0.3 % 0-5 [facility] Work Phone: Glucose [Mass/Vol] 217 mg/dL 74-106 [facility] Work Phone: Comment on above: Glucose result great er than or equal to 200 mg/dLsuggests DIABETES MELLITUS per A.D.A. criteria. Lactate [Moles/Vol] 2.1 mmol/L 0.4-2.0 [facility] Work Phone: Comment on above: Critical Result(s) C alled at: 14:54:19 06/03/2022 by: Claudette Balderas. Results read back by same. Neutrophils (Bld) [#/Vol] 22.3 10*3/uL 2.0-7.7 [facility] Work Phone: [phone] Neutrophils/100 WBC (Bld) 92.6 % 47-70 [facility] Work Phone: [phone] Potassium [Moles/Vol] 3.6 mmol/L 3.5-5.1 [facility] Work Phone: [phone] Sodium [Moles/Vol] 125 mmol/L 136-145 [facility] Work Phone: [phone] WBC (Bld) [#/Vol] 24.1 10*3/uL 4.4-11.0 [facility] Work Phone: [phone] Blood erythrocytes count (nu mber/volume)on 06-03-2022 RBC (Bld) [#/Vol] 3.19 10*6/uL 4.2-5.4 [facility] Work Phone: [phone] Blood hemoglobin measurement (mass/volume)on 06-03-2022 Hemoglobin (Bld) [Mass/Vol] 9.5 g/dL 12.0-15.0 [facility] Work Phone: [phone] Blood lymphocytes/100 leukoc yteson 06-03-2022 Lymphocytes/100 WBC (Bld) 3.9 % 19-41 [facility] Work Phone: Blood manual differential co mment interpretation (narrative result)on 06-03-2022 Manual differential comment Marc (Bld) [Interp] COMMENT [facility] Work Phone: Comment on above: NEUTROPHILIA. Blood monocytes/100 leukocyt eson 06-03-2022 Monocytes/100 WBC (Bld) 2.0 % 0-10 [facility] Work Phone: Blood platelet mean volumeon 06-03-2022 Platelet mean volume (Bld) [Entitic vol] 10.7 fL 6.2-12.0 [facility] Work Phone: Determination of erythrocyte mean corpuscular volume (MCV)on 06-03-2022 MCV (RBC) [Entitic vol] 89.3 fL 81-99 [facility] Work Phone: Hematocrit Auto (Bld) [Volum e fraction]on 06-03-2022 Hematocrit (Bld) [Volume fraction] 28.5 % 37-47 [facility] Work Phone: Laboratory - Chemistry and C hemistry - challengeon 06-03-2022 CO2 [Moles/Vol] 27.0 mmol/L 21.0-32.0 [facility] Work Phone: Natriuretic peptide B (Bld) [Mass/Vol] 16.2 pg/mL 0-100 [facility] Work Phone: Urea nitrogen/Creatinine [Mass ratio] 34.9 mg/mg 10-20 [facility] Work Phone: Laboratory - Hematology and Cell countson 06-03-2022 Erythrocyte distribution width (RBC) [Entitic vol] 46.7 fL 35.1-43.9 [facility] Work Phone: Erythrocyte distribution width (RBC) [Ratio] 14.5 % 11.6-14.6 [facility] Work Phone: Immature granulocytes/100 WBC (Bld) 1.000 % 0.0-0.9 [facility] Work Phone: Comment on above: IG% - Immature Granu locytes (promyelocytes, myelocytes and metamyelocytes) > 1% indicates that a LEFT SHIFT is Present. MCH (RBC) [Entitic mass] 29.8 pg 27.0-32.0 [facility] Work Phone: Nucleated RBC/100 WBC (Bld) [Ratio] 0 % 0-5 [facility] Work Phone: MCHC Auto (RBC) [Mass/Vol]on 06-03-2022 MCHC (RBC) [Mass/Vol] 33.3 g/dL 32-36 [facility] Work Phone: No Panel Informationon 06-03 Estimated Creatinine Clearance Calc 57.40 ml/min [facility] Work Phone: Estimated GFR (MDRD) Amer 78 mL/min >60 [facility] Work Phone: Comment on above: GFR Calc Estimated GFR (MDRD) Non-Af Amer 64 mL/min >60 [facility] Work Phone: Comment on above: Non- GFR Calc Troponin I High Sensitivity 10 pg/mL 3.0-54.0 [facility] Work Phone: Comment on above: Please Note: [place] t Units and Gender Specific Reference Ranges. For more information see Policy Stat Procedure [place] High Sensitivity Troponin (TNIH) and attachments. Platelets bldon 06-03-2022 Platelets (Bld) [#/Vol] 462 10*3/uL 150-450 [facility] Work Phone: Serum or plasma calcium ana urement (mass/volume)on 06-03-2022 Calcium [Mass/Vol] 8.3 mg/dL 8.5-10.1 [facility] Work Phone: Serum or plasma creatinine m easurement (mass/volume)on 06-03-2022 Creatinine [Mass/Vol] 0.92 mg/dL 0.55-1.02 [facility] Work Phone: Comment on above: The validity of the calculated GFR & GFRAA in patients over 70 years has not been determined. Clinical correlation is essential. Serum or plasma urea nitroge n measurement (mass/volume)on 06-03-2022 Urea nitrogen [Mass/Vol] 32 mg/dL 7-18 [facility] Work Phone: Thin prep Papanicolaou smear with manual screeningon 06-03-2022 Thin prep Papanicolaou smear with manual screening 12 5-15 [facility] Work Phone: Absolute lymphocyte counton 05-31-2022 Lymphocytes Auto (Unsp spec) [#/Vol] 1.09 10*3/uL 0.83-4.51 [facility] Work Phone: Basophil percentageon 2021 Basophils/100 WBC (Bld) 0.2 % 0-1 [facility] Work Phone: Chloride [Moles/Vol] 91 mmol/L 98-107 [facility] Work Phone: Eosinophils/100 WBC (Bld) 0.1 % 0-5 [facility] Work Phone: Glucose [Mass/Vol] 197 mg/dL 74-106 [facility] Work Phone: Comment on above: Fasting Glucose resu lt greater than or equal to 126 mg/dL suggests DIABETES MELLITUS per A.D.A. criteria. Neutrophils (Bld) [#/Vol] 30.2 10*3/uL 2.0-7.7 [facility] Work Phone: [phone] Neutrophils/100 WBC (Bld) 92.2 % 47-70 [facility] Work Phone: [phone] Potassium [Moles/Vol] 4.0 mmol/L 3.5-5.1 [facility] Work Phone: [phone] Sodium [Moles/Vol] 128 mmol/L 136-145 [facility] Work Phone: [phone] WBC (Bld) [#/Vol] 32.8 10*3/uL 4.4-11.0 [facility] Work Phone: Comment on above: RESULTS CALLED TO Santi SANDY RN PCU 05/31/22 0801 Iman Crowe.REPORT READ BACK BY SAME. Blood erythrocytes count (nu mber/volume)on 05-31-2022 RBC (Bld) [#/Vol] 3.62 10*6/uL 4.2-5.4 [facility] Work Phone: [phone] Blood hemoglobin measurement (mass/volume)on 05-31-2022 Hemoglobin (Bld) [Mass/Vol] 11.0 g/dL 12.0-15.0 [facility] Work Phone: Blood lymphocytes/100 leukoc yteson 05-31-2022 Lymphocytes/100 WBC (Bld) 3.3 % 19-41 [facility] Work Phone: Blood monocytes/100 leukocyt eson 05-31-2022 Monocytes/100 WBC (Bld) 3.3 % 0-10 [facility] Work Phone: [phone] Blood platelet adequacy dete ction by light microscopyon 05-31-2022 Platelets LM Ql (Bld) ADEQUATE ADEQ [facility] Work Phone: Blood platelet mean volumeon 05-31-2022 Platelet mean volume (Bld) [Entitic vol] 10.4 fL 6.2-12.0 [facility] Work Phone: Determination of erythrocyte mean corpuscular volume (MCV)on 05-31-2022 MCV (RBC) [Entitic vol] 90.9 fL 81-99 [facility] Work Phone: Glucose Glucometer (BldC) [M ass/Vol]on 05-31-2022 Glucose [Mass/Vol] 241 mg/dL 74-106 [facility] Work Phone: Comment on above: MANAGEMENT OF PATIEN T CARE PER NURSING PROTOCOL Hematocrit Auto (Bld) [Volum e fraction]on 05-31-2022 Hematocrit (Bld) [Volume fraction] 32.9 % 37-47 [facility] Work Phone: Laboratory - Chemistry and C hemistry - challengeon 05-31-2022 CO2 [Moles/Vol] 30.0 mmol/L 21.0-32.0 [facility] Work Phone: Magnesium [Mass/Vol] 3.0 mg/dL 1.6-2.6 [facility] Work Phone: Urea nitrogen/Creatinine [Mass ratio] 64.8 mg/mg 10-20 [facility] Work Phone: Laboratory - Hematology and Cell countson 05-31-2022 Erythrocyte distribution width (RBC) [Entitic vol] 47.8 fL 35.1-43.9 [facility] Work Phone: Erythrocyte distribution width (RBC) [Ratio] 14.3 % 11.6-14.6 [facility] Work Phone: Immature granulocytes/100 WBC (Bld) 0.900 % 0.0-0.9 [facility] Work Phone: Comment on above: IG% - Immature Granu locytes (promyelocytes, myelocytes and metamyelocytes) > 1% indicates that a LEFT SHIFT is Present. MCH (RBC) [Entitic mass] 30.4 pg 27.0-32.0 [facility] Work Phone: Nucleated RBC/100 WBC (Bld) [Ratio] 0 % 0-5 [facility] Work Phone: MCHC Auto (RBC) [Mass/Vol]on 05-31-2022 MCHC (RBC) [Mass/Vol] 33.4 g/dL 32-36 [facility] Work Phone: No Panel Informationon 05-31 Estimated Creatinine Clearance Calc 50.00 ml/min [facility] Work Phone: Estimated GFR (MDRD) Amer 123 mL/min >60 [facility] Work Phone: Comment on above: GFR Calc Estimated GFR (MDRD) Non-Af Amer 102 mL/min >60 [facility] Work Phone: Comment on above: Non- GFR Calc Platelets bldon 05-31-2022 Platelets (Bld) [#/Vol] 436 10*3/uL 150-450 [facility] Work Phone: RBC morphologyon 05-31-2022 RBC morphology finding Nom (Bld) NORM C+C NORMAL NORM C&C [facility] Work Phone: Review by pathologiston 05-19 Pathologist review Marc (Unsp spec) [Interp] Reviewed [facility] Work Phone: Comment on above: Previous reported re sult: Misa cuevas Edited by: TANIA on 06/03/22:0717Neutrophilic leukocytosis.Clinical correlation necessary.Basim Jay M.D. 06/02/22 AMENDED REPORT 06/03/22 0717 PATH REV previously reported as: Misa cuevas Serum or plasma calcium ana urement (mass/volume)on 05-31-2022 Calcium [Mass/Vol] 7.8 mg/dL 8.5-10.1 [facility] Work Phone: Serum or plasma creatinine m easurement (mass/volume)on 05-31-2022 Creatinine [Mass/Vol] 0.62 mg/dL 0.55-1.02 [facility] Work Phone: Comment on above: The validity of the calculated GFR & GFRAA in patients over 70 years has not been determined. Clinical correlation is essential. Serum or plasma urea nitroge n measurement (mass/volume)on 05-31-2022 Urea nitrogen [Mass/Vol] 40 mg/dL 7-18 [facility] Work Phone: Thin prep Papanicolaou smear with manual screeningon 05-31-2022 Thin prep Papanicolaou smear with manual screening 7 5-15 [facility] Work Phone: Blood manual differential co mment interpretation (narrative result)on 05-30-2022 Manual differential comment Marc (Bld) [Interp] See comment [facility] Work Phone: Comment on above: NEUTROPHILIA NOTEDLE UKOCYTOSIS NOTED Basophil percentageon 2021 Bilirubin [Mass/Vol] 0.60 mg/dL 0.20-1.00 [facility] Work Phone: Comment on above: For patients on eltr ombopag therapy, use of Dimension [place] TBIL is not recommended. Protein [Mass/Vol] 6.8 g/dL 6.4-8.2 [facility] Work Phone: Laboratory - Chemistry and C hemistry - challengeon 05-29-2022 ALP [Catalytic activity/Vol] 111 U/L 45-117 [facility] Work Phone: ALT [Catalytic activity/Vol] 35 U/L 13-56 [facility] Work Phone: Globulin (S) [Mass/Vol] 4.7 g/dL 2.2-4.2 [facility] Work Phone: Serum or plasma albumin ana urement (mass/volume)on 05-29-2022 Albumin [Mass/Vol] 2.1 g/dL 3.2-5.0 [facility] Work Phone: Serum or plasma albumin/glob ulin mass ratioon 05-29-2022 Albumin/Globulin [Mass ratio] 0.4 {ratio} 0.9-2.4 [facility] Work Phone: Thin prep Papanicolaou smear with manual screeningon 05-29-2022 Thin prep Papanicolaou smear with manual screening 23 U/L 15-37 [facility] Work Phone: [phone] Basophil percentageon 2021 Basophil percentage 3.9 mg/dL 2.5-4.9 [facility] Work Phone: Assessment of wrist artery p atency prior to arterial punctureon 05-24-2022 Arterial patency Wrist artery --pre arterial puncture Positive [facility] Work Phone: Base excesson 05-24-2022 Base excess Calc (BldV) [Moles/Vol] 8 mmol/L -2-2 [facility] Work Phone: Basophil percentageon 2021 Basophil percentage 30.3 mmol/L 22-26 [facility] Work Phone: [phone] Basophils/100 WBC (Bld) 93 % 95-99 [facility] Work Phone: [phone] CO2 (BldA) [Partial pressure ]on 05-24-2022 CO2 (Bld) [Partial pressure] 36.5 mm[Hg] 35-45 [facility] Work Phone: No Panel Informationon 05-24 Blood Gas Clinical Comments AIRVO 40l [facility] Work Phone: Blood Gas Oxygen Percent 45 [facility] Work Phone: Blood Gas Sample Site R BRACHIAL [facility] Work Phone: Blood Gas Specimen Type ART [facility] Work Phone: Blood Gas Total CO2 31 mmol/L [facility] Work Phone: Blood Gas Vent Mode AIRVO [facility] Work Phone: [phone] Oxygen (BldA) [Partial press ure]on 05-24-2022 Oxygen (Bld) [Partial pressure] 58 mmHG 75-100 [facility] Work Phone: pH measurementon 05-24-2022 pH (Unsp spec) 7.53 [pH] 7.35-7.45 [facility] Work Phone: Direct bilirubinon Bilirubin.direct [Mass/Vol] 0.15 mg/dL 0.00-0.30 [facility] Work Phone: Basophil percentageon 2021 Cholesterol [Mass/Vol] 58 mg/dL <200 [facility] Work Phone: Comment on above: <200 mg/dL Desirable 200-240 mg/dL Borderline >240 mg/dL High Risk Triglyceride [Mass/Vol] 98 mg/dL <199 [facility] Work Phone: Comment on above: The drugs N-Acetylcy steine and Metamizole may falsely depress this assay.Serum Triglycerides Reference Interval Normal <150 mg/dL Borderline high 150 - 199 mg/dL High 200 - 499 mg/dL Very High > or = 500 mg/dL Laboratory - Chemistry and C hemistry - challengeon 05-19-2022 Free T4 [Mass/Vol] 1.58 ng/dL 0.76-1.46 [facility] Work Phone: No Panel Informationon 05-[address] HFNC [facility] Work Phone: Thyroid Stimulating Hormone (TSH) 0.22 uIU/mL 0.358-3.74 [facility] Work Phone: Serum or plasma cholesterol in HDL measurement (mass/volume)on 05-19-2022 Cholesterol in HDL [Mass/Vol] 11 mg/dL >40 [facility] Work Phone: Comment on above: The drugs N-Acetylcy steine and Metamizole may falsely depress this assay. Reference Range HDL <40 mg/dL Low HDL Cholesterol HDL >or= 60 mg/dL High HDL Cholesterol Serum or plasma cholesterol in VLDL measurement (mass/volume)on 05-19-2022 Cholesterol in VLDL [Mass/Vol] 20 mg/dL 5-40 [facility] Work Phone: Serum or plasma low density lipoprotein (LDL) cholesterol measurement (mass/volume)on 05-19-2022 Cholesterol in LDL [Mass/Vol] 27 mg/dL 0-130 [facility] Work Phone: Whole blood hemoglobin A1c/t otal hemoglobin ratio (mass fraction)on 05-19-2022 HbA1c (Bld) [Mass fraction] 5.9 % 3.8-5.6 [facility] Work Phone: Comment on above: Normal < 5.7 % Predi abetic 5.7 - 6.4 % Diabetic >or= 6.5 % Please note range changes. Absolute lymphocyte counton 05-18-2022 Lymphocytes Auto (Unsp spec) [#/Vol] 0.48 10*3/uL 0.83-4.51 [facility] Work Phone: Activated partial thrombopla stin time (aPTT) in platelet poor plasma by coagulation aon 05-18-2022 aPTT Coag (PPP) [Time] 28.9 s 24.1-36.2 [facility] Work Phone: Basophil percentageon 2021 Lactate [Moles/Vol] 1.6 mmol/L 0.4-2.0 [facility] Work Phone: [phone] Basophils/100 WBC (Bld) 0.3 % 0-1 [facility] Work Phone: [phone] Chloride [Moles/Vol] 87 mmol/L 98-[address] [facility] Work Phone: Eosinophils/100 WBC (Bld) 0.2 % 0-5 [facility] Work Phone: Glucose [Mass/Vol] 176 mg/dL 74-106 [facility] Work Phone: Comment on above: Fasting Glucose resu lt greater than or equal to 126 mg/dL suggests DIABETES MELLITUS per A.D.A. criteria. Neutrophils (Bld) [#/Vol] 20.4 10*3/uL 2.0-7.7 [facility] Work Phone: [phone] Neutrophils/100 WBC (Bld) 93.0 % 47-70 [facility] Work Phone: [phone] Potassium [Moles/Vol] 2.8 mmol/L 3.5-5.1 [facility] Work Phone: [phone] Sodium [Moles/Vol] 123 mmol/L 136-145 [facility] Work Phone: [phone] WBC (Bld) [#/Vol] 21.9 10*3/uL 4.4-11.0 [facility] Work Phone: [phone] Blood erythrocytes count (nu mber/volume)on 05-18-2022 RBC (Bld) [#/Vol] 4.26 10*6/uL 4.2-5.4 [facility] Work Phone: [phone] Blood hemoglobin measurement (mass/volume)on 05-18-2022 Hemoglobin (Bld) [Mass/Vol] 12.7 g/dL 12.0-15.0 [facility] Work Phone: [phone] Blood lymphocytes/100 leukoc yteson 05-18-2022 Lymphocytes/100 WBC (Bld) 2.2 % 19-41 [facility] Work Phone: [phone] Blood manual differential co mment interpretation (narrative result)on 05-18-2022 Manual differential comment Marc (Bld) [Interp] SEE COMMENT [facility] Work Phone: [phone] Comment on above: NEUTROPHILIA NOTED L YMPHOPENIA NOTED Blood monocytes/100 leukocyt eson 05-18-2022 Monocytes/100 WBC (Bld) 2.4 % 0-10 [facility] Work Phone: [phone] Blood platelet adequacy dete ction by light microscopyon 05-18-2022 Platelets LM Ql (Bld) MOD INC ADEQ [facility] Work Phone: [phone] Blood platelet mean volumeon 05-18-2022 Platelet mean volume (Bld) [Entitic vol] 9.7 fL 6.2-12.0 [facility] Work Phone: Determination of erythrocyte mean corpuscular volume (MCV)on 05-18-2022 MCV (RBC) [Entitic vol] 87.6 fL 81-99 [facility] Work Phone: Fibrinogen measurement in pl atelet poor plasma by derived coagulation (mass/volume)on 05-18-2022 Fibrinogen Coagulation.derived (PPP) [Mass/Vol] > 900 mg/dl 203-444 [facility] Work Phone: Glucose Glucometer (BldC) [M ass/Vol]on 05-18-2022 Glucose [Mass/Vol] 179 mg/dL 74-106 [facility] Work Phone: Comment on above: MANAGEMENT OF PATIEN T CARE PER NURSING PROTOCOL Hematocrit Auto (Bld) [Volum e fraction]on 05-18-2022 Hematocrit (Bld) [Volume fraction] 37.3 % 37-47 [facility] Work Phone: INR in Blood by Coagulation assayon 05-18-2022 INR Coag (Bld) [Relative time] 1.1 {INR} [facility] Work Phone: Laboratory - Chemistry and C hemistry - challengeon 05-18-2022 CK [Catalytic activity/Vol] 147 U/L 26-192 [facility] Work Phone: Natriuretic peptide B (Bld) [Mass/Vol] 232.4 pg/mL 0-100 [facility] Work Phone: CO2 [Moles/Vol] 21.0 mmol/L 21.0-32.0 [facility] Work Phone: Urea nitrogen/Creatinine [Mass ratio] 25.6 mg/mg 10-20 [facility] Work Phone: Laboratory - Coagulationon 0 05-18-2022 PT Coag (PPP) [Time] 13.7 s 11.7-14.9 [facility] Work Phone: Laboratory - Hematology and Cell countson 05-18-2022 Anisocytosis Ql (Bld) RARE [facility] Work Phone: Erythrocyte distribution width (RBC) [Entitic vol] 44.8 fL 35.1-43.9 [facility] Work Phone: Erythrocyte distribution width (RBC) [Ratio] 14.0 % 11.6-14.6 [facility] Work Phone: Immature granulocytes/100 WBC (Bld) 1.900 % 0.0-0.9 [facility] Work Phone: Comment on above: IG% - Immature Granu locytes (promyelocytes, myelocytes and metamyelocytes) > 1% indicates that a LEFT SHIFT is Present. MCH (RBC) [Entitic mass] 29.8 pg 27.0-32.0 [facility] Work Phone: Nucleated RBC/100 WBC (Bld) [Ratio] 0 % 0-5 [facility] Work Phone: Laboratory - Microbiology an d Antimicrobial susceptibilityon 05-18-2022 SARS-CoV-2 (COVID-19) RNA BHANU+probe Ql (Unsp spec) Detected Not Detect [facility] Work Phone: Comment on above: CRITICAL VALUE [...] 05-18-2022 MCHC (RBC) [Mass/Vol] 34.0 g/dL 32-36 [facility] Work Phone: No Panel Informationon 05-18 Troponin I High Sensitivity 40 pg/mL 3.0-54.0 [facility] Work Phone: Comment on above: Please Note: [place] t Units and Gender Specific Reference Ranges. For more information see Policy Stat Procedure [place] High Sensitivity Troponin (TNIH) and attachments. D-Dimer Quantitative (PE/DVT) 3.41 FEU/ug/m 0.27-0.49 [facility] Work Phone: Comment on above: CRITICAL VALUE VERIF IED. CALLED TO JEAN-PAUL DAILY RN [id number] Aniket Saenz.RESULTS READ BACK BY SAME . D-Dimer ELEVATED (>0.49): Additional studies and clinicalassessments are indicated to conclude diagnosis of:Deep Vein Thrombosis (DVT) or Pulmonary Embolism (PE) Estimated Creatinine Clearance Calc 54.71 ml/min [facility] Work Phone: Estimated GFR (MDRD) Amer 99 mL/min >60 [facility] Work Phone: Comment on above: GFR Calc Estimated GFR (MDRD) Non-Af Amer 82 mL/min >60 [facility] Work Phone: Comment on above: Non- GFR Calc Thyroid Stimulating Hormone (TSH) 0.35 uIU/mL 0.358-3.74 [facility] Work Phone: Troponin I High Sensitivity 57 pg/mL 3.0-54.0 [facility] Work Phone: Comment on above: Please Note: [place] t Units and Gender Specific Reference Ranges. For more information see Policy Stat Procedure [place] High Sensitivity Troponin (TNIH) and attachments. Platelets bldon 05-18-2022 Platelets (Bld) [#/Vol] 559 10*3/uL 150-450 [facility] Work Phone: RBC morphologyon 05-18-2022 RBC morphology finding Nom (Bld) N CHROM NORMAL NORM C&C [facility] Work Phone: Serum or plasma C reactive p rotein measurement (mass/volume)on 05-18-2022 CRP [Mass/Vol] 433.00 mg/L 0.0-3.0 [facility] Work Phone: Comment on above: C-Reactive Protein ( CRP) provides useful information for thediagnosis, therapy and monitoring of inflammatory processesand associated diseases. For the evaluation of Relative Riskfor Cardiovascular Disease, a High Sensitivity CRP (HSCRP)should be ordered. Serum or plasma calcium ana urement (mass/volume)on 05-18-2022 Calcium [Mass/Vol] 8.7 mg/dL 8.5-10.1 [facility] Work Phone: Serum or plasma creatinine m easurement (mass/volume)on 05-18-2022 Creatinine [Mass/Vol] 0.74 mg/dL 0.55-1.02 [facility] Work Phone: Comment on above: The validity of the calculated GFR & GFRAA in patients over 70 years has not been determined. Clinical correlation is essential. Serum or plasma urea nitroge n measurement (mass/volume)on 05-18-2022 Urea nitrogen [Mass/Vol] 19 mg/dL 7-18 [facility] Work Phone: Serum procalcitonin measurem enton 05-18-2022 Procalcitonin [Mass/Vol] 6.79 ng/mL 0.00-0.09 [facility] Work Phone: Comment on above: A procalcitonin [...] smear with manual screening 380 U/L 84-246 [facility] Work Phone: Comment on above: Slight Hemolysis, Re sult may be falsely increased. Thin prep Papanicolaou smear with manual screening 15 5-15 [facility] Work Phone: Bronchoalveolar lavage cultu re with Gram stain Respiratory Culture Aspirgillus fumigatus [facility] Work Phone: COVID-19 virus antigen assay SARS-CoV-2 (COVID-19) Ag IA.rapid Ql (Resp) [facility] Work Phone: Culture, urine Bacteria identified Cx Nom (U) Enterobacter aerogenes [facility] Work Phone: Bacteria identified Cx Nom (U) Klebsiella pneumoniae sp pneum [facility] Work Phone: Fungus culture and stain Fungal Culture Shalini albicans [facility] Work Phone: Fungal Culture Aspirgillus fumigatus [facility] Work Phone: Gram stain for investigation of transfusion reaction Microscopic observation Gram stain Nom (Unsp spec) [facility] Work Phone: Laboratory - Microbiology an d Antimicrobial susceptibility Bacteria identified Cx Nom (Bld) No growth in 5 days. [facility] Work Phone: Bacteria identified Cx Nom (Bld) NO GROWTH IN 14 DAYS [facility] Work Phone: No Panel Information Streptococcus pneumoniae Antigen (M [facility] Work Phone: Vital Signs Date Time Vital Sign Value Performing Clinician Facility 06-16-2025 11:23-0400 Body height 172.[address] Misael Molina MD Work Phone: [facility] 06-16-2025 11:23-0400 Body mass index (BMI) [Ratio] 22.6 kg/m2 Dr. Misael Molina MD Work Phone: [facility] 06-16-2025 11:23-0400 Body weight 67.[address] Misael Molina MD Work Phone: [facility] 06-16-2025 11:23-0400 Diastolic blood pressure 71 mm[Hg] Dr. Misael Molina MD Work Phone: 3(335)979-656857 [place] [address] 06-16-2025 11:23-0400 Heart rate 84 /min Dr. Misael Molina MD Work Phone: 0(755)523-269257 [place] [address] 06-16-2025 11:23-0400 Respiratory rate 18 /min Dr. Misael Molina MD Work Phone: 3(470)094-129149 [address] 06-16-2025 11:23-0400 SaO2% (BldA) [Mass fraction] 92 % Dr. Misael Molina MD Work Phone: 9(792)423-669957 [place] [address] 06-16-2025 11:23-0400 Systolic blood pressure 108 mm[Hg] Dr. Misael Molina MD Work Phone: [facility] 11-24-2024 07:45-0500 Body temperature 97 [degF] Dr. Misael Molina MD Work Phone: [facility] 11-24-2024 07:45-0500 Diastolic blood pressure 79 mm[Hg] Dr. Misael Molina MD Work Phone: [facility] 11-24-2024 07:45-0500 Heart rate 65 /min Dr. Misael Molina MD Work Phone: [facility] 11-24-2024 07:45-0500 Respiratory rate 16 /min Dr. Misael Molina MD Work Phone: [facility] 11-24-2024 07:45-0500 SaO2% (BldA) [Mass fraction] 96 % Dr. Misael Molina MD Work Phone: [facility] 11-24-2024 07:45-0500 Systolic blood pressure 114 mm[Hg] Dr. Misael Molina MD Work Phone: [facility] 11-24-2024 06:02-0500 Body height 172.[address] Misael Molina MD Work Phone: 5(976)692-731757 [place] [address] 11-24-2024 06:02-0500 Body mass index (BMI) [Ratio] 23.1 kg/m2 Dr. Misael Molina MD Work Phone: 6(993)104-261957 [place] [address] 11-24-2024 06:02-0500 Body weight [address] Misael Molina MD Work Phone: 3(150)110-675716 [place] [address] 06-24-2023 13:08-0400 Body height 172.[address] Misael Molina Work Phone: 1(425)946-211016 [place] [address] 06-24-2023 13:08-0400 Body mass index (BMI) [Ratio] 25.9 kg/m2 Dr. Misael Molina Work Phone: 8(240)303-854516 [place] [address] 06-24-2023 13:08-0400 Body weight 77.[address] Misael Molina Work Phone: 2(452)151-087816 [place] [address] 06-24-2023 13:08-0400 Diastolic blood pressure 74 mm[Hg] Dr. Misael Molina Work Phone: 6(532)835-982916 [place] [address] 06-24-2023 13:08-0400 Heart rate 76 /min Dr. Misael Molina Work Phone: 6(420)721-209016 [place] [address] 06-24-2023 13:08-0400 Respiratory rate 18 /min Dr. Misael Molina Work Phone: 5(881)340-344857 [place] [address] 06-24-2023 13:08-0400 SaO2% (BldA) [Mass fraction] 92 % Dr. Misael Molina Work Phone: 9(874)886-180916 [place] [address] 06-24-2023 13:08-0400 Systolic blood pressure 114 mm[Hg] Dr. Misael Molina Work Phone: 2(841)095-807016 [place] [address] 01-27-2023 07:18-0400 Body temperature 98.8 [degF] Dr. Misael Molina Work Phone: 4(764)547-396916 [place] [address] 01-27-2023 07:18-0400 Diastolic blood pressure 63 mm[Hg] Dr. Misael Molina Work Phone: [facility] 01-27-2023 07:18-0400 Heart rate 70 /min Dr. Misael Molina Work Phone: [facility] 01-27-2023 07:18-0400 Respiratory rate 16 /min Dr. Misael Molina Work Phone: 1(005)441-498857 [place] [address] 01-27-2023 07:18-0400 SaO2% (BldA) [Mass fraction] 99 % Dr. Misael Molina Work Phone: 9(657)552-369457 [place] [address] 01-27-2023 07:18-0400 Systolic blood pressure 137 mm[Hg] Dr. Misael Molina Work Phone: 8(208)467-975057 [place] [address] 01-27-2023 05:53-0400 Body height 172.[address] Misael Molina Work Phone: 6(994)525-715957 [place] [address] 01-27-2023 05:53-0400 Body mass index (BMI) [Ratio] 23.4 kg/m2 Dr. Misael Molina Work Phone: 7(677)816-383716 [place] [address] 01-27-2023 05:53-0400 Body weight 69.[address] Misael Molina Work Phone: 8(830)218-595557 [place] [address] 12-24-2022 14:40-0500 Body height 172.[address] Misael Molina Work Phone: [facility] 12-24-2022 14:40-0500 Body mass index (BMI) [Ratio] 23.4 kg/m2 Dr. Misael Molina Work Phone: 8(527)346-079857 [place] [address] 12-24-2022 14:40-0500 Body weight 69.[address] Misael Molina Work Phone: [facility] 12-24-2022 14:40-0500 Diastolic blood pressure 78 mm[Hg] Dr. Misael Molina Work Phone: [facility] 03-08-2023 14:40-0500 Heart rate 68 /min Dr. Misael Molina Work Phone: [facility] 12-24-2022 14:40-0500 Respiratory rate 16 /min Dr. Misael Molina Work Phone: [facility] 12-24-2022 14:40-0500 SaO2% (BldA) [Mass fraction] 97 % Dr. Misael Molina Work Phone: [facility] 12-24-2022 14:40-0500 Systolic blood pressure 136 mm[Hg] Dr. Misael Molina Work Phone: [facility] 11-11-2022 08:00-0500 Body height 172.[address] Misael Molina Work Phone: 9(685)882-677149 [address] 11-11-2022 08:00-0500 Body weight 62.[address] Misael Molina Work Phone: [facility] 11-10-2022 09:28-0500 Body mass index (BMI) [Ratio] 20.9 kg/m2 Dr. Misael Molina Work Phone: [facility] 09-25-2022 14:10-0500 Body height 172.[address] Misael Molina Work Phone: [facility] Work Phone: 09-25-2022 14:10-0500 Body mass index (BMI) [Ratio] 20.9 kg/m2 Dr. Misael Molina Work Phone: [facility] 09-25-2022 14:10-0500 Body weight 62.[address] Misael Molina Work Phone: [facility] 09-25-2022 14:10-0500 Diastolic blood pressure 72 mm[Hg] Dr. Misael Molina Work Phone: [facility] 09-25-2022 14:10-0500 Heart rate 64 /min Dr. Misael Molina Work Phone: [facility] 09-25-2022 14:10-0500 Respiratory rate 18 /min Dr. Misael Molina Work Phone: [facility] 09-25-2022 14:10-0500 Systolic blood pressure 122 mm[Hg] Dr. Misael Molina Work Phone: [facility] 08-06-2022 12:30-0400 Body temperature 97.6 [degF] Dr. Misael Molina Work Phone: [facility] 08-06-2022 12:30-0400 Diastolic blood pressure 72 mm[Hg] Dr. Misael Molina Work Phone: [facility] 08-06-2022 12:30-0400 Heart rate 80 /min Dr. Misael Molina Work Phone: [facility] 08-06-2022 12:30-0400 Respiratory rate 18 /min Dr. Misael Molina Work Phone: [facility] 08-06-2022 12:30-0400 SaO2% (BldA) [Mass fraction] 96 % Dr. Misael Molina Work Phone: [facility] 08-06-2022 12:30-0400 Systolic blood pressure 124 mm[Hg] Dr. Misael Molina Work Phone: [facility] 08-06-2022 10:00-0400 Heart rate 103 /min Dr. Misael Molina Work Phone: [facility] Work Phone: 08-06-2022 10:00-0400 SaO2% (BldA) [Mass fraction] 95 % Dr. Misael Molina Work Phone: [facility] Work Phone: 08-06-2022 08:04-0400 Diastolic blood pressure 71 mm[Hg] Dr. Misael Molina Work Phone: [facility] Work Phone: 08-06-2022 08:04-0400 Systolic blood pressure 122 mm[Hg] Dr. Misael Molina Work Phone: [facility] Work Phone: 08-06-2022 07:35-0400 Respiratory rate 18 /min Dr. Misael Molina Work Phone: [facility] Work Phone: 08-05-2022 12:50-0400 Body temperature 98.3 [degF] Dr. Misael Molina Work Phone: [facility] Work Phone: 08-05-2022 11:24-0400 Body weight 58.[address] Misael Molina Work Phone: [facility] 08-01-2022 23:32-0400 Inhaled oxygen concentration 21 % Dr. Misael Molina Work Phone: [facility] 07-31-2022 22:00-0400 Inhaled oxygen flow rate 2 L/min Dr. Misael Molina Work Phone: [facility] 07-30-2022 17:24-0400 Body height 172.[address] Misael Molina Work Phone: [facility] Work Phone: 07-02-2022 12:38-0400 Diastolic blood pressure 70 mm[Hg] Dr. Misael Molina Work Phone: [facility] Work Phone: 07-02-2022 12:38-0400 Heart rate 72 /min Dr. Misael Molina Work Phone: [facility] Work Phone: 07-02-2022 12:38-0400 Systolic blood pressure 114 mm[Hg] Dr. Misael Molina Work Phone: [facility] Work Phone: 07-02-2022 07:30-0400 Inhaled oxygen flow rate 2 L/min Dr. Misael Molina Work Phone: [facility] Work Phone: 07-02-2022 07:30-0400 Respiratory rate 21 /min Dr. Misael Molina Work Phone: [facility] Work Phone: 07-01-2022 14:03-0400 Body temperature 97 [degF] Dr. Misael Molina Work Phone: [facility] Work Phone: 07-01-2022 14:03-0400 SaO2% (BldA) [Mass fraction] 95 % Dr. Misael Molina Work Phone: [facility] Work Phone: 07-01-2022 14:02-0400 Body weight 62.[address] Misael Molina Work Phone: [facility] Work Phone: 06-29-2022 15:48-0400 Body temperature 98.7 [degF] Dr. Misael Molina Work Phone: [facility] Work Phone: 06-29-2022 15:48-0400 Diastolic blood pressure 61 mm[Hg] Dr. Misael Molina Work Phone: [facility] Work Phone: 06-29-2022 15:48-0400 Heart rate 75 /min Dr. Misael Molina Work Phone: [facility] Work Phone: 06-29-2022 15:48-0400 Inhaled oxygen flow rate 2 L/min Dr. Misael Molina Work Phone: [facility] Work Phone: 06-29-2022 15:48-0400 Respiratory rate 14 /min Dr. Misael Molina Work Phone: [facility] Work Phone: 06-29-2022 15:48-0400 SaO2% (BldA) [Mass fraction] 96 % Dr. Misael Molina Work Phone: [facility] Work Phone: 06-29-2022 15:48-0400 Systolic blood pressure 114 mm[Hg] Dr. Misael Molina Work Phone: [facility] Work Phone: 06-29-2022 11:58-0400 Diastolic blood pressure 61 mm[Hg] Dr. Misael Molina Work Phone: [facility] Work Phone: 06-29-2022 11:58-0400 Heart rate 72 /min Dr. Misael Molina Work Phone: [facility] Work Phone: 06-29-2022 11:58-0400 Systolic blood pressure 114 mm[Hg] Dr. Misael Molina Work Phone: [facility] Work Phone: 06-29-2022 07:05-0400 Inhaled oxygen flow rate 2 L/min Dr. Misael Molina Work Phone: [facility] Work Phone: 06-29-2022 07:05-0400 Respiratory rate 16 /min Dr. Misael Molina Work Phone: [facility] Work Phone: 06-29-2022 07:05-0400 SaO2% (BldA) [Mass fraction] 91 % Dr. Misael Molina Work Phone: [facility] Work Phone: 06-28-2022 14:31-0400 Body temperature 96.4 [degF] Dr. Misael Molina Work Phone: [facility] Work Phone: 06-25-2022 14:32-0400 Body height 172.[address] Misael Molina Work Phone: [facility] Work Phone: 06-25-2022 14:32-0400 Body weight 65.[address] Misael Molina Work Phone: [facility] Work Phone: 06-18-2022 14:06-0400 Body mass index (BMI) [Ratio] 22.3 kg/m2 Dr. Misael Molina Work Phone: [facility] 06-18-2022 12:55-0400 Body temperature 97 [degF] Dr. Misael Molina Work Phone: [facility] Work Phone: 06-18-2022 12:55-0400 Diastolic blood pressure 46 mm[Hg] Dr. Misael Molina Work Phone: [facility] Work Phone: 06-18-2022 12:55-0400 Heart rate 75 /min Dr. Misael Molina Work Phone: [facility] Work Phone: 06-18-2022 12:55-0400 Inhaled oxygen flow rate 2 L/min Dr. Misael Molina Work Phone: [facility] Work Phone: 06-18-2022 12:55-0400 Respiratory rate 16 /min Dr. Misael Molina Work Phone: [facility] Work Phone: 06-18-2022 12:55-0400 SaO2% (BldA) [Mass fraction] 97 % Dr. Misael Molina Work Phone: [facility] Work Phone: 06-18-2022 12:55-0400 Systolic blood pressure 96 mm[Hg] Dr. Misael Molina Work Phone: [facility] Work Phone: 06-18-2022 06:00-0400 Body weight 77.[address] Misael Molina Work Phone: [facility] Work Phone: 06-16-2022 15:12-0400 Body height [address] Misael Molina Work Phone: [facility] Work Phone: 06-15-2022 04:00-0400 Inhaled oxygen concentration 93 % Dr. Misael Molina Work Phone: [facility] Work Phone: 06-11-2022 10:43-0400 Body mass index (BMI) [Ratio] 21.9 kg/m2 Dr. Misael Molina Work Phone: [facility] Work Phone: 06-06-2022 20:00-0400 Body temperature 97.8 [degF] Dr. Misael Molina Work Phone: [facility] Work Phone: 06-06-2022 20:00-0400 Diastolic blood pressure 57 mm[Hg] Dr. Misael Molina Work Phone: [facility] Work Phone: 06-06-2022 20:00-0400 Heart rate 100 /min Dr. Misael Molina Work Phone: [facility] Work Phone: 06-06-2022 20:00-0400 Inhaled oxygen flow rate 2 L/min Dr. Misael Molina Work Phone: [facility] Work Phone: 06-06-2022 20:00-0400 Respiratory rate 17 /min Dr. Misael Molina Work Phone: [facility] Work Phone: 06-06-2022 20:00-0400 SaO2% (BldA) [Mass fraction] 96 % Dr. Misael Molina Work Phone: [facility] Work Phone: 06-06-2022 20:00-0400 Systolic blood pressure 87 mm[Hg] Dr. Misael Molina Work Phone: [facility] Work Phone: 06-06-2022 14:12-0400 Body height [address] Misael Molina Work Phone: [facility] Work Phone: 06-06-2022 14:12-0400 Body mass index (BMI) [Ratio] 22.2 kg/m2 Dr. Misael Molina Work Phone: [facility] Work Phone: 06-06-2022 14:12-0400 Body weight 66.[address] Misael Molina Work Phone: [facility] Work Phone: 06-03-2022 16:08-0400 Diastolic blood pressure 72 mm[Hg] Dr. Misael Molina Work Phone: [facility] Work Phone: 06-03-2022 16:08-0400 Systolic blood pressure 93 mm[Hg] Dr. Misael Molina Work Phone: [facility] Work Phone: 06-03-2022 16:06-0400 Heart rate 95 /min Dr. Misael Molina Work Phone: [facility] Work Phone: 06-03-2022 16:06-0400 SaO2% (BldA) [Mass fraction] 94 % Dr. Misael Molina Work Phone: [facility] Work Phone: 06-03-2022 15:00-0400 Body temperature 97.6 [degF] Dr. Misael Molina Work Phone: [facility] Work Phone: 06-03-2022 15:00-0400 Inhaled oxygen flow rate 4 L/min Dr. Misael Molina Work Phone: [facility] Work Phone: 06-03-2022 15:00-0400 Respiratory rate 25 /min Dr. Misael Molina Work Phone: [facility] Work Phone: 06-03-2022 12:44-0400 Body mass index (BMI) [Ratio] 21.5 kg/m2 Dr. Misael Molina Work Phone: [facility] Work Phone: 06-03-2022 12:44-0400 Body weight 64.[address] Misael Molina Work Phone: [facility] Work Phone: 05-31-2022 20:02-0400 Inhaled oxygen flow rate 4 L/min Dr. Misael Molina Work Phone: [facility] Work Phone: 05-31-2022 19:53-0400 Heart rate 76 /min Dr. Misael Molina Work Phone: [facility] Work Phone: 05-31-2022 19:41-0400 Body temperature 95.7 [degF] Dr. Misael Molina Work Phone: [facility] Work Phone: 05-31-2022 19:41-0400 Diastolic blood pressure 61 mm[Hg] Dr. Misael Molnia Work Phone: [facility] Work Phone: 05-31-2022 19:41-0400 Respiratory rate 18 /min Dr. Misael Molina Work Phone: [facility] Work Phone: 05-31-2022 19:41-0400 SaO2% (BldA) [Mass fraction] 98 % Dr. Misael Molina Work Phone: [facility] Work Phone: 05-31-2022 19:41-0400 Systolic blood pressure 106 mm[Hg] Dr. Misael Molina Work Phone: [facility] Work Phone: 05-31-2022 05:24-0400 Body weight 60.[address] Misael Molina Work Phone: [facility] Work Phone: 05-27-2022 07:24-0400 Inhaled oxygen concentration 60 % Dr. Misael Molina Work Phone: [facility] Work Phone: 05-18-2022 20:00-0400 Body mass index (BMI) [Ratio] 21.5 kg/m2 Dr. Misael Molina Work Phone: [facility] Work Phone: 05-18-2022 19:29-0400 Body temperature 98.9 [degF] [facility] Work Phone: 05-18-2022 19:29-0400 Diastolic blood pressure 66 mm[Hg] [facility] Work Phone: 05-18-2022 19:29-0400 Heart rate 133 /min [facility] Work Phone: 05-18-2022 19:29-0400 Inhaled oxygen flow rate 3 L/min [facility] Work Phone: 05-18-2022 19:29-0400 Respiratory rate 38 /min [facility] Work Phone: 05-18-2022 19:29-0400 SaO2% (BldA) [Mass fraction] 95 % [facility] Work Phone: 05-18-2022 19:29-0400 Systolic blood pressure 121 mm[Hg] [facility] Work Phone: 05-18-2022 16:10-0400 Body height 175.26 cm [facility] Work Phone: 05-18-2022 16:10-0400 Body mass index (BMI) [Ratio] 21.7 kg/m2 [facility] Work Phone: 05-18-2022 16:10-0400 Body weight 66.6 kg [facility] Work Phone: Encounters Encounter Date Encounter Type Care Provider Facility Start: 06-16-2025 End: 06-16-[address] Misael Molina MD Work Phone: [facility] Start: 06-16-2025 End: 06-16-[address] Aniket Cheema MD -Laboratory [facility] Start: 06-16-2025 End: 06-16-[address] Aniket Cheema MD -[facility] Work Phone: Start: 06-16-2025 End: 06-16-[address] Misael Molina MD Work Phone: -[facility] Start: 06-16-2025 End: 06-16-2025 ambulatory Misael Molina Facility:[facility] Start: 04-18-2025 Non-patient / Non-visit Dr. Alberta Browne MD -[facility] Work Phone: Start: 01-26-2025 End: 01-26-[address] Misael Molina MD Work Phone: [facility] Work Phone: Start: 01-26-2025 End: 01-26-[address] Misael Molina MD -Laboratory, [place] Work Phone: Start: 01-26-2025 End: 01-26-2025 ambulatory Misael Molina Facility:[facility] Start: 11-24-2024 ambulatory Misael Molina Facility:[facility] Start: 11-24-2024 Non-patient / Non-visit Maurilio Mcmanus DO -[facility] Start: 11-24-2024 End: 11-24-2024 Admission to same day surgery center Maurilio Mcmanus DO -Endoscopy Work Phone: Start: 11-24-2024 End: 11-24-2024 ambulatory Misael Molina Facility:[facility] Start: 09-13-2024 End: 09-13-2024 ambulatory Misael Molina Facility:[facility] Start: 07-27-2024 End: 07-27-2024 ambulatory Misael Molina Facility:[facility] Start: 07-15-2024 End: 07-15-2024 ambulatory Dax Terry Facility:[facility] Start: 07-06-2024 End: 07-06-2024 ambulatory Misael Molina Facility:[facility] Start: 12-14-2023 End: 12-14-[address] Misael Molina Work Phone: [facility] Work Phone: Start: 12-14-2023 End: 12-14-[address] Misael Molina Work Phone: [facility] Work Phone: Start: 12-10-2023 End: 12-10-[address] Misael Molina Work Phone: [facility] Gastro[facility]ology Work Phone: Start: 12-02-2023 End: 12-02-2023 ambulatory [facility] spital Work Phone: Start: 12-02-2023 End: 12-02-2023 Patient encounter procedure [facility] Work Phone: Start: 06-25-2023 End: 06-25-[address] Misael Molina Work Phone: [facility] Work Phone: Start: 06-25-2023 End: 06-25-[address] Misael Molina Work Phone: [facility], Specimen Work Phone: Start: 06-24-2023 End: 06-24-[address] Misael Molina Work Phone: [facility] Work Phone: Start: 06-08-2023 End: 06-08-2023 ambulatory [facility] spital Work Phone: Start: 06-08-2023 End: 06-08-2023 Patient encounter procedure [facility] Work Phone: Start: 05-19-2023 End: 05-19-2023 Patient encounter procedure [facility] Work Phone: Start: 03-06-2023 End: 03-06-2023 Patient encounter procedure [facility]-Nuclear Medicine, [facility] Work Phone: Start: 03-03-2023 End: 03-03-2023 Patient encounter procedure [facility] Oncology Start: 02-11-2023 End: 02-11-[address] Misael Molina Work Phone: [facility]-Laboratory Start: 02-05-2023 End: 02-05-[address] Misael Molina Work Phone: [facility] Work Phone: Start: 02-05-2023 End: 02-05-[address] Misael Molina Work Phone: [facility]-Outpatient Breast Imaging Start: 01-27-2023 Non-patient / Non-visit Dr. Misael Molina Work Phone: [facility] Start: 01-27-2023 End: 01-27-2023 Admission to same day surgery center Dr. Misael Molina Work Phone: [facility]-Endoscopy Start: 01-27-2023 End: 01-27-[address] Misael Molina Work Phone: [facility] Work Phone: Start: 01-26-2023 End: 01-26-[address] [facility] [place] Start: 12-24-2022 End: 12-24-[address] Misael Molina Work Phone: [facility] Start: 12-23-2022 End: 12-23-[address] Misael Molina Work Phone: [facility] Work Phone: Start: 12-23-2022 End: 12-23-[address] Misael Molina Work Phone: [facility] Start: 12-11-2022 End: 12-11-[address] Misael Molina Work Phone: [facility] Work Phone: Start: 12-11-2022 End: 12-11-[address] [facility] Start: 11-13-2022 End: 11-13-[address] Misael Molina Work Phone: [facility] Work Phone: Start: 11-13-2022 End: 11-13-[address] Misael Molina Work Phone: [facility]-Laboratory Start: 11-11-2022 End: 11-11-2022 Admission to same day surgery center Dr. Misael Molina Work Phone: [facility]-Industrial Controller/Special Procedures Start: 11-11-2022 End: 11-11-[address] Misael Molina Work Phone: [facility] Work Phone: Start: 11-10-2022 Non-patient / Non-visit Dr. Misael Molina Work Phone: [facility] Start: 11-04-2022 End: 11-04-[address] Misael Molina Work Phone: [facility] Work Phone: Start: 11-04-2022 End: 11-04-[address] Misael Molina Work Phone: [facility]-Laboratory Start: 11-04-2022 End: 11-04-[address] Misael Molina Work Phone: [facility] Start: 10-15-2022 Non-patient / Non-visit Dr. Misael Molina Work Phone: [facility] Start: 10-15-2022 End: 10-15-[address] Misael Molina Work Phone: [facility] Work Phone: Start: 10-15-2022 End: 10-15-[address] Misael Molina Work Phone: [facility]-Cardiovascular Services Start: 09-25-2022 End: 09-25-[address] Misael Molina Work Phone: [facility] Start: 09-23-2022 Non-patient / Non-visit Dr. Misael Molina Work Phone: [facility] Heart [facility] Start: 06-30-2022 Non-patient / Non-visit Dr. Misael Molina Work Phone: [facility] Start: 06-29-2022 End: 06-29-[address] Misael Molina Work Phone: [facility] Work Phone: Start: 06-29-2022 End: 06-29-[address] Misael Molina Work Phone: [facility]-Progressive Care Unit, Outpt Start: 06-26-2022 End: 06-26-[address] Misael Molina Work Phone: [facility] Work Phone: Start: 06-26-2022 End: 06-26-[address] Misael Molina Work Phone: [facility] Start: 06-18-2022 End: 08-06-2022 Evaluation and management of inpatient Dr. Misael Molina Work Phone: [facility]-Transitional Care Unit Start: 06-18-2022 Non-patient / Non-visit Dr. Misael Molina Work Phone: [facility] Inpatient Physicians Start: 06-18-2022 Non-patient / Non-visit Dr. Misael Molina Work Phone: [facility] Start: 06-17-2022 Non-patient / Non-visit Dr. Misael Molina Work Phone: [facility]patient Physicians Start: 06-17-2022 Non-patient / Non-visit Dr. Misael Molina Work Phone: [facility] Start: 06-16-2022 Non-patient / Non-visit Dr. Misael Molina Work Phone: [facility] Inpatient Physicians Start: 06-16-2022 Non-patient / Non-visit Dr. Misael Molina Work Phone: [facility] Start: 06-15-2022 Non-patient / Non-visit Dr. Misael Molina Work Phone: [facility] Inpatient Physicians Start: 06-14-2022 Non-patient / Non-visit Dr. Misael Molina Work Phone: [facility] Start: 06-13-2022 Non-patient / Non-visit Dr. Misael Molina Work Phone: [facility]patient Physicians Start: 06-13-2022 Non-patient / Non-visit Dr. Misael Molina Work Phone: [facility] Start: 06-12-2022 Non-patient / Non-visit Dr. Misael Molina Work Phone: [facility]patient Physicians Start: 06-12-2022 Non-patient / Non-visit Dr. Misael Molina Work Phone: [facility] Start: 06-11-2022 Non-patient / Non-visit Dr. Misael Molina Work Phone: [facility] Start: 06-11-2022 Non-patient / Non-visit Dr. Misael Molina Work Phone: [facility] Start: 06-11-2022 Non-patient / Non-visit Dr. Misael Molina Work Phone: [facility] Start: 06-10-2022 Non-patient / Non-visit Dr. Misael Molina Work Phone: [facility] Start: 06-10-2022 Non-patient / Non-visit Dr. Misael Molina Work Phone: [facility] Start: 06-09-2022 Non-patient / Non-visit Dr. Misael Molina Work Phone: [facility] Start: 06-09-2022 Non-patient / Non-visit Dr. Misael Molina Work Phone: [facility] Start: 06-09-2022 Non-patient / Non-visit [facility]. Misael Molina Work Phone[facility] Start: 06-08-2022 Non-patient / Non-visit Dr. Misael Molina Work Phone: [facility] Start: 06-08-2022 Non-patient / Non-visit Dr. Misael Molina Work Phone: [facility] Start: 06-08-2022 Non-patient / Non-visit Dr. Misael Molina Work Phone: [facility] Start: 06-07-2022 Non-patient / Non-visit Dr. Misael Molina Work Phone: [facility] Start: 06-07-2022 Non-patient / Non-visit Dr. Misael Molina Work Phone: [facility] Start: 06-07-2022 Non-patient / Non-visit Dr. Misael Molina Work Phone: [facility] Start: 06-06-2022 End: 06-18-2022 Evaluation and management of inpatient [facility] Start: 06-06-2022 Non-patient / Non-visit Dr. Misael Molina Work Phone: [facility] Start: 06-06-2022 Evaluation and management of inpatient [facility]. Misael Molina [facility] Start: 06-03-2022 End: 06-03-2022 Emergency department patient visit Dr. Misael Molina Work Phone: [facility]-Emergency Department Start: 05-31-2022 Non-patient / Non-visit Dr. Misael Molina Work Phone: [facility] Phys[facility] Start: 05-31-2022 Non-patient / Non-visit Dr. Misael Molina Work Phone: [facility] Start: 05-30-2022 Non-patient / Non-visit Dr. Misael Molina Work Phone: [facility] Start: 05-30-2022 Non-patient / Non-visit Dr. Misael Molina Work Phone: [facility] Start: 05-29-2022 Non-patient / Non-visit Dr. Misael Molina Work Phone: [facility] Start: 05-29-2022 Non-patient / Non-visit Dr. Misael Molina Work Phone: [facility] Start: 05-28-2022 Non-patient / Non-visit Dr. Misael Molina Work Phone: [facility] Start: 05-27-2022 Non-patient / Non-visit Dr. Misael Molina Work Phone: [facility] Start: 05-27-2022 Non-patient / Non-visit Dr. Misael Molina Work Phone: [facility] Start: 05-26-2022 Non-patient / Non-visit Dr. Misael Molina Work Phone: [facility] Start: 05-25-2022 Non-patient / Non-visit Dr. Misael Molina Work Phone: [facility] Start: 05-24-2022 Non-patient / Non-visit Dr. Misael Molina Work Phone: [facility] Start: 05-24-2022 Non-patient / Non-visit Dr. Misael Molina Work Phone: [facility] Start: 05-23-2022 Non-patient / Non-visit Dr. Misael Molina Work Phone: [facility] Start: 05-23-2022 Non-patient / Non-[facility] Start: 05-22-2022 Non-patient / Non-visit Dr. Misael Molina Work Phone: [facility] Start: 05-22-2022 Non-patient / Non-visit Dr. Misael Molina Work Phone: [facility] Start: 05-21-2022 Non-patient / Non-visit Dr. Misael Molina Work Phone: [facility] Start: 05-21-2022 Non-patient / Non-visit Dr. Misael Molina Work Phone: [facility] Start: 05-20-2022 Non-patient / Non-visit Dr. Misael Molina Work Phone: [facility] Start: 05-20-2022 End: 05-31-2022 Non-patient / Non-visit Dr. Misael Molina Work Phone: [facility] Start: 05-19-2022 Non-patient / Non-visit Dr. Misael Molina Work Phone: [facility] Start: 05-19-2022 Non-patient / Non-visit Dr. Misael Molina Work Phone: [facility] Start: 05-19-2022 Non-patient / Non-visit Dr. Misael Molina Work Phone: [facility] Start: 05-18-2022 End: 05-31-2022 Non-patient / Non-visit Dr. Misael Molina Work Phone: [facility] Start: 05-18-2022 End: 05-31-2022 Evaluation and management of inpatient [facility] Care [facility] Procedures Date Procedure Procedure Detail [...] Activity Detail Author Start: 06-30-2025 ambulatory Ambulatory Facility:[facility] Start: 11-24-2024 Colonoscopy w/biopsy single/multiple COLONOSCOPY AND BIOPSY [facility] Start: 11-24-2024 Egd transoral biopsy single/multiple EGD BIOPSY SINGLE/MULTIPLE [facility] Start: 11-24-2024 Patient discharge [facility] Start: 02-11-2023 Ferritin [Mass/volume] in Serum or Plasma [facility] Start: 02-11-2023 Iron and Iron binding capacity panel - Serum or Plasma [facility] Start: 01-27-2023 Procedure [facility] Start: 01-27-2023 Colonoscopy flx dx w/collj spec when pfrmd DIAGNOSTIC COLONOSCOPY [facility] Start: 01-27-2023 Egd transoral biopsy single/multiple EGD BIOPSY SINGLE/MULTIPLE [facility] Start: 01-27-2023 Patient discharge [facility] Start: 01-26-2023 [facility] Start: 08-07-2022 Blood chemistry [facility] Work Phone: Start: 08-06-2022 Development of care plan [facility] Start: 08-06-2022 Patient discharge [facility] Start: 08-05-2022 [facility] Work Phone: Start: 08-01-2022 Development of care plan [facility] Start: 08-01-2022 Referral to service [facility] Start: 08-01-2022 End: 08-01-2022 [facility] Start: 07-31-2022 Blood chemistry [facility] Work Phone: Start: 07-29-2022 [facility] Start: 07-24-2022 Blood chemistry [facility] Work Phone: Start: 07-17-2022 Blood chemistry [facility] Work Phone: Start: 07-10-2022 Blood chemistry [facility] Work Phone: Start: 07-03-2022 Blood chemistry [facility] Work Phone: Start: 07-01-2022 Inhalation therapy procedure [facility] Start: 06-30-2022 Blood chemistry [facility] Work Phone: Start: 06-29-2022 Administration of blood product [facility] Work Phone: Start: 06-29-2022 [facility] Work Phone: Start: 06-29-2022 Administration of blood product [facility] Start: 06-26-2022 Following clinical pathway protocol [facility] Start: 06-26-2022 Consultation [facility] Start: 06-25-2022 [facility] Start: 06-20-2022 Oxygen therapy [facility] Start: 06-20-2022 [facility] Work Phone: Start: 06-19-2022 Development of care plan [facility] Start: 06-19-2022 Developing a treatment plan [facility] Start: 06-18-2022 Patient referral to dietitian [facility] Start: 06-18-2022 Consultation for treatment [facility] Start: 06-18-2022 Verification routine [facility] Work Phone: Start: 06-18-2022 Admission procedure [facility] Start: 06-18-2022 Measuring intake and output [facility] Start: 06-18-2022 Patient referral to dietitian [facility] Start: 06-18-2022 Referral to occupational therapist [facility] Start: 06-18-2022 Referral to service [facility] Start: 06-18-2022 Vital signs measurements [facility] Start: 06-18-2022 [facility] Start: 06-18-2022 Following clinical pathway protocol [facility] Start: 06-18-2022 Wound care [facility] Start: 06-18-2022 Electrocardiographic procedure [facility] Work Phone: Start: 06-18-2022 Removal of urinary catheter [facility] Work Phone: Start: 06-18-2022 Patient discharge [facility] Work Phone: Start: 06-18-2022 [facility] Work Phone: Start: 06-17-2022 [facility] Work Phone: Start: 06-15-2022 Care planning and problem solving actions [facility] Work Phone: Start: 06-15-2022 Removal of urinary catheter [facility] Work Phone: Start: 06-15-2022 [facility] Work Phone: Start: 06-14-2022 Introduction of urinary catheter [facility] Work Phone: Start: 06-13-2022 [facility] Work Phone: Start: 06-11-2022 Catheterization of vein [facility] Work Phone: Start: 06-10-2022 [facility] Work Phone: Start: 06-10-2022 Consultation for treatment [facility] Work Phone: Start: 06-08-2022 Incentive spirometry [facility] Work Phone: Start: 06-08-2022 End: 06-08-2022 Blood culture [facility] Work Phone: Start: 06-08-2022 End: 06-08-2022 [facility] Work Phone: Start: 06-08-2022 Consultation [facility] Work Phone: Start: 06-08-2022 Physiotherapy of chest [facility] Work Phone: Start: 06-07-2022 Referral to occupational therapist [facility] Work Phone: Start: 06-07-2022 Referral to service [facility] Work Phone: Start: 06-06-2022 Administration of blood product [facility] Work Phone: Start: 06-06-2022 Assessment of risk of venous thromboembolism [facility] Work Phone: Start: 06-06-2022 Care regimes management [facility] Work Phone: Start: 06-06-2022 Consultation [facility] Work Phone: Start: 06-06-2022 Insertion of catheter into peripheral vein [facility] Work Phone: Start: 06-06-2022 Measuring intake and output [facility] Work Phone: Start: 06-06-[address] [facility] Work Phone: Start: 06-06-2022 Oxygen therapy [facility] Work Phone: Start: 06-06-2022 Providing care according to standard [facility] Work Phone: Start: 06-06-2022 Referral to gastroenterology service [facility] Work Phone: Start: 06-06-2022 Vital signs measurements [facility] Work Phone: Start: 06-06-2022 [facility] Work Phone: Start: 06-06-2022 Referral to service [facility] Work Phone: Start: 06-06-2022 Admission procedure [facility] Work Phone: Start: 06-06-2022 Following clinical pathway protocol [facility] Work Phone: Start: 06-06-2022 Administration of blood product [facility] Work Phone: Start: 06-06-2022 Esophagogastroduodenoscopy EGD (MAC) (Not Applicable) [facility] Work Phone: Start: 06-06-2022 [facility] Work Phone: Start: 06-06-2022 Catheterization of vein [facility] Work Phone: Start: 06-06-2022 Leukocyte reduced red blood cells [facility] Work Phone: Start: 06-06-2022 End: 06-06-2022 Blood culture [facility] Work Phone: Start: 06-06-2022 [facility] Work Phone: Start: 06-06-2022 Inhalation therapy procedure [facility] Work Phone: Start: 06-06-2022 Patient referral to dietitian [facility] Work Phone: Start: 06-03-2022 Emergency dept visit high severity&threat funcj EMERGENCY DEPT VISIT [facility] Work Phone: Start: 06-03-2022 [facility] Work Phone: Start: 05-31-2022 Patient discharge [facility] Work Phone: Start: 05-28-2022 [facility] Work Phone: Start: 05-24-2022 [facility] Work Phone: Start: 05-24-[address] [facility] Work Phone: Start: 05-24-2022 [facility] Work Phone: Start: 05-22-2022 Care planning and problem solving actions [facility] Work Phone: Start: 05-20-2022 [facility] Work Phone: Start: 05-19-2022 Care planning and problem solving actions [facility] Work Phone: Start: 05-19-2022 Consultation [facility] Work Phone: Start: 05-18-2022 Following clinical pathway protocol [facility] Work Phone: Start: 05-18-2022 Application of intermittent pneumatic compression device [facility] Work Phone: Start: 05-18-2022 Ambulation without limitation [facility] Work Phone: Start: 05-18-2022 Assessment of risk of venous thromboembolism [facility] Work Phone: Start: 05-18-2022 Catheterization of vein [facility] Work Phone: Start: 05-18-2022 Consultation [facility] Work Phone: Start: 05-18-2022 Elevation of head of bed [facility] Work Phone: Start: 05-18-2022 Incentive spirometry [facility] Work Phone: Start: 05-18-2022 Inhalation therapy procedure [facility] Work Phone: Start: 05-18-2022 Insertion of catheter into peripheral vein [facility] Work Phone: Start: 05-18-2022 Measuring intake and output [facility] Work Phone: Start: 05-18-2022 Medication education [facility] Work Phone: Start: 05-18-2022 Oxygen therapy [facility] Work Phone: Start: 05-18-2022 Patient education [facility] Work Phone: Start: 05-18-2022 Providing care according to standard [facility] Work Phone: Start: 05-18-2022 Referral to occupational therapist [facility] Work Phone: Start: 05-18-2022 Referral to service [facility] Work Phone: Start: 05-18-2022 [facility] Work Phone: Start: 05-18-2022 Care regimes management [facility] Work Phone: Start: 05-18-[address] [facility] Work Phone: Start: 05-18-2022 Verification routine [facility] Work Phone: Start: 05-18-2022 End: 05-18-2022 Blood culture [facility] Work Phone: Start: 05-18-2022 Troponin I measurement [facility] Work Phone: Start: 05-18-2022 Influenza virus A and B and SARS-CoV-2 (COVID-19) Ag panel - Upper respiratory specim [facility] Work Phone: Start: 05-18-2022 End: 05-18-2022 [facility] Work Phone: Start: 05-18-2022 Viral nucleic acid assay [facility] Work Phone: Start: 05-18-2022 Admission procedure [facility] Work Phone: Start: 05-18-2022 End: 05-19-2022 [facility] Work Phone: Start: 05-18-2022 Patient referral to dietitian [facility] Work Phone: Alanine aminotransfe rase [Enzymatic activity/volume] in Serum or Plasma [facility] Work Phone: Albumin [Mass/volume ] in Serum or Plasma [facility] Work Phone: Alkaline phosphatase [Enzymatic activity/volume] in Serum or Plasma [facility] Work Phone: Angiotensin converti ng enzyme [Enzymatic activity/volume] in Serum or Plasma [facility] Antibody to lupus La protein measurement [facility] Antibody to SS-A measurement [facility] Aspartate aminotrans ferase [Enzymatic activity/volume] in Serum or Plasma [facility] Work Phone: Bacteria identified in Blood by Culture Blood Culture [facility] Work Phone: Bacteria identified in Urine by Culture Urine Culture [facility] Work Phone: Bilirubin, total measurement [facility] Work Phone: Bilirubin.direct [Ma ss/volume] in Serum or Plasma [facility] Work Phone: Blood culture [facility] Work Phone: Complete blood count [facility] Cyclic citrullinated peptide IgG Ab [Units/volume] in Serum or Plasma [facility] DNA double strand Ab [Units/volume] in Serum [facility] Evaluation of diagno stic study results [facility] Fungal Culture Fungal Culture [facility] Work Phone: Hemoglobin A1c/Hemog lobin.total in Blood [facility] Work Phone: Iron [Mass/mass] in Unspecified specimen [facility] Iron saturation [Mas s Fraction] in Serum or Plasma [facility] Lactic acid measurement [facility] Work Phone: Magnesium [Mass/volu me] in Serum or Plasma [facility] Work Phone: Measurement of Asper gillus flavus antibody [facility] Work Phone: Measurement of Asper gillus fumigatus antibody [facility] Work Phone: Measurement of Asper gillus niger antibody [facility] Work Phone: Neutrophil cytoplasm ic Ab.classic [Units/volume] in Serum [facility] Nuclear Ab [Presence] in Serum [facility] P-ANCA measurement [facility] Patient Education ED COPD Flare ED Dehydration (Adult) [facility] Work Phone: Patient referral [facility] Work Phone: Procedure [facility] Radionuclide gastric emptying study [facility] Respiratory microbial culture Respiratory Culture [facility] Work Phone: SCL-70 extractable n uclear Ab [Units/volume] in Serum by Immunoassay [facility] Smooth muscle Ab [Pr esence] in Serum [facility] Total protein measurement [facility] Work Phone: Troponin I measurement [facility] Work Phone: Urine culture Urine Culture [facility] Work Phone: Immunizations Immunization Date Immunization Notes Care Provider Maci juárez 07-25-2021 Covid ([employer]) Dr. Misael hilliard Work Phone: [facility] 01-15-2021 Covid (Pfizer) Dr. Misael hilliard Work Phone: [facility] 12-25-2020 Covid (Pfizer) Dr. Misael hilliard Work Phone: [facility] 05-05-2018 tetanus toxoid, redu alessandro diphtheria toxoid, and acellular pertussis vaccine, adsorbed Dr. Misael Molina Work Phone: [facility] Payers Date Payer Category Payer Self-pay [id number] 2024 Medicare [id number] 2017 Unknown [id number] Unknown [id number] 2.16.8 [id number] Unknown [id number] 2.16.8 [id number] Unknown [id number] 2.16.8 [id number] Unknown [id number] 2.16.8 [id number] Unknown [id number] 2.16.8 [id number] Unknown [id number] 2.16.8 [id number] Unknown [id number] 2.16.8 [id number] Unknown [id number] 2.16.8 [id number] Unknown [id number] 2.16.8 [id number] Unknown [id number] 2.16.8 [id number] Social History Date Type Detail Facility Start: 05-18-2022 End: 12-10-2023 Tobacco smoking status NHIS Unknown if ever smoked [facility] Start: 1950 Sex Assigned At Female [facility] Start: 11-22-2024 Tobacco smoking status NHIS Ex-smoker (finding) [facility] Start: 01-31-2025 Sex Female (finding) [facility] NEGATED: Highlighted row [facility] NEGATED: Highlighted row Not [facility] Goals Date Patient Goal Desired Activity /State Functional Status Date Assessment Result Facility 08-06-2022 Functional status Up ad leonor [facility] Work Phone: 07-02-2022 Functional status Bedrest [facility] Work Phone: 06-29-2022 Functional status Activity Abili ty Unable to Assess [facility] Work Phone: 06-29-2022 Functional status Chair [facility] Work Phone: 06-18-2022 Functional status Chair [facility] Work Phone: 06-16-2022 Functional status Rolling Walker [facility] Work Phone: 05-31-2022 Functional status Chair [facility] Work Phone: Mental Status Date Assessment Result Facility 11-24-2024 Cognitive function Voice/Name [facility] Work Phone: 01-27-2023 Cognitive function Voice/Name [facility] Work Phone: 08-06-2022 Cognitive function Voice/Name [facility] Work Phone: 07-31-2022 Cognitive function Appropriate;Cooperativ e [facility] Work Phone: 07-01-2022 Cognitive function Voice/Name [facility] Work Phone: 06-29-2022 Cognitive function Voice/Name [facility] Work Phone: 06-18-2022 Cognitive function Voice/Name [facility] Work Phone: 06-06-2022 Cognitive function Voice/Name [facility] Work Phone: 05-31-2022 Cognitive function Voice/Name [facility] Work Phone: 05-18-2022 Cognitive function Level Of Cons ciousness Awake;Drowsy [facility] Work Phone: Clinical Notes 11-11-2022 to 06-16-2025 Note Date & Type Note Facility 06-16-2025 Evaluation note Diagnosis Onset Date Resolution Anticoagulant long-term use acute June 16 11:20am CAD (coronary artery disease) acute June 16 11:20am Paroxysmal A-fib acute May 202024 11:20am [facility] Work Phone: 1(390) 557-148702-06-2025 Evaluation note* Diagnosis Onset Date Resolution Status Admit Date Eosinophilic esophagitis chronic November 24, 2024 5:36am GI bleed chronic November 24, 2024 5:36am [facility] Work Phone: [phone]) 250-302602-06-2025 [facility] Medical Records Department [address] [place] [address] History Physical Exam 11/24/24 0656 MR#: [id number] Acct: [id number] Name: RAVI BECKHAM Rep #: [id number] : 1950 74 From: Maurilio Friend DO PCP: Dr. Misael Molina MD Status:REG [facility] Location: [place] [address] HPI - General General Date of Admission: 11/24/24 Date of Service: 11/24/24 Chief Complaint: Gastric ulcer HPI Narrative RAVI BECKHAM, is a 74 F who presents for endoscopic surviallence of gastric ulcer H DM 1; CAD; hyperlipidemia; encephalopathy; a.Fib [facility] Hospitalization 7.31.22-8.13.22 for COVID with legionella pne, respiratory failure. Discharged to SNF. [facility] ED 8.16. with SOB and hypoxia. *[facility] hospitalization 8.19.22-06.18.22 with transfer to TCU until [...] not feel pantoprazole is controlling this well. [facility] Medical History Anxiety Bladder disease Back pain [...] ([facility]) ( 11/11/22) Atherosclerotic heart disease of [place] coronary artery without angina pectoris Abnormal stress [...] History Uncle Heart di (more content not included)...[facility] 01-27-2023 Procedure [facility]04-11-2023 Procedure note [facility]04-11-2023 Procedure [facility] 01-27-2023 Procedure [facility]01-24-2023 History and physical note Author Dr. Daniels [facility] November 11, 2022 7:58am Note Date/Time November 10, 2022 3 :48pm [facility] Medical Records Department [address] [place] [address] History & Physical Exam 11/10/22 1545 MR#: [id number] Acct: [id number] Name: CARYJUSTINRAVI LOVEY Rep #:[id number] : 1950 72 From: Misael Daniels MD PCP: Dr. Misael Molina MD Status:REG S DC Location: [facility] History and Physical Date of Admission: 11/11/22 [facility] [address] [place] [address] MR#: [id number] Acct: [id number] Name:RAVI URIARTE Rep #: [id number] : 1950 Provider: Dr. Misael Daniels MD Age/Sex:? 72/F ?Location: [facility] Status: Signed [facility] History of Present Illness Details: [...] daughter's recollection-who is with her today at [facility] in both the acute care and in [...] ? ? Auscultation Intake Visit Reasons:?A-FIB/REF. 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 Misael Molina MD~ Signed [facility] Work Phone: Evaluation note* Diagnosis Onset Date Resolution Status Acute dehydration acute Acute hypokalemia acute Acute hyponatremia acute Atrial fibrillation with rapid ventricular response acute COVID-19 acute History of diabetes mellitus acute Lobar pneumonia acute Weakness acute [facility] Work Phone: evaluation note* Diagnosis Onset Date [...] Hypotension acute Pneumonia acute COPD exacerbation chronic [facility] Work Phone: evaluation note* Diagnosis Onset Date [...] Atrial fibrillation with rapid ventricular response resolved [facility] Work Phone: evaluation note* Diagnosis Onset Date [...] acute Chronic gastritis chronic Hemorrhagic shock resolved [facility] Work Phone: Evaluation note* Diagnosis [...] acute Paroxysmal A-fib acute Tobacco abuse acute [facility] Work Phone: Evaluation note* Diagnosis [...] Hyperlipidemia acute Paroxysmal A-fib acute Tobacco abuse [facility] Work Phone: Evaluation note* Diagnosis Onset [...] acute Adenomatous polyps acute GI bleed acute [facility] Work Phone: Evaluation note* Diagnosis Onset Date Resolution Status CAD (coronary artery disease) acute Hyperlipidemia acute Paroxysmal A-fib acute Tobacco abuse acute Adenomatous polyps acute GI bleed acute [facility] Work Phone: Evaluation note* Diagnosis Onset Date Resolution Status CAD (coronary artery disease) acute Hyperlipidemia acute Paroxysmal A-fib acute Tobacco abuse acute Adenomatous polyps acute GI bleed acute CAD (coronary artery disease) acute Hyperlipidemia acute Paroxysmal A-fib acute Tobacco abuse acute [facility] Work Phone: Evaluation note* Diagnosis Onset Date Resolution Status Adenomatous polyps acute GI bleed acute CAD (coronary artery disease) acute Hyperlipidemia acute Paroxysmal A-fib acute Tobacco abuse acute [facility] Work Phone: Evaluation note* Diagnosis Onset Date Resolution Status Adenomatous polyps acute GI bleed chronic CAD (coronary artery disease) acute Hyperlipidemia acute Paroxysmal A-fib acute Tobacco abuse acute Anemia acute Eosinophilic esophagitis chr onic GI bleed chronic [facility] Work Phone: Evaluation noteNo assessment information available [facility] Work Phone: Evaluation note* Diagnosis Onset Date Resolution Status CAD (coronary artery disease) acute Hyperlipidemia acute Paroxysmal A-fib acute Tobacco abuse acute [facility] Work Phone: Evaluation note* Diagnosis Onset Date Resolution Status Anemia acute Irritable bowel syndrome with diarrhea acute Eosinophilic esophagitis chr onic GI bleed chronic [facility] Work Phone: History and physical note Author Maurilio Mcmanus [facility] January 27, 2023 6:40am Note Date/Time January 27, 2023 6:4 0am [facility] Medical Records Department [address] [place] [address] History & Physical Exam 01/27/23 0640 MR#: [id number] Acct: [id number] Name: RAVI BECKHAM Rep #:[id number] : 1950 72 From: Maurilio Mcmanus DO PCP: Dr. Misael Molina MD Status:REG S NM Location: [place] [address] History and Physical Date of Admission: 01/27/23 72 F who presents to the office today for PMH DM 1; CAD; hyperlipidemia; encephalopathy; a.Fib [facility] Hospitalization 05.18.22-05.31.22 for COVID with legionella pne, respiratory failure. Discharged to SNF. [facility] ED 06.03.22 with SOB and hypoxia. [facility] hospitalization 06.06.22-06.18.22 with transfer to TCU until [...] Appearance: average body habitus and well nourished [facility] Head: normal to inspection Ears: hearing grossly [...] Affect: normal affect Quality Reporting Tobacco Screening ([facility] 138) Smoking Status: Former smoker Assessment and [...] Misael Molina MD; Maurilio Mcmanus DO~ Signed [facility] Work Phone[facility] Work Phone: Reason for referral (narrative)No reason for referral information availableWCl[facility] Work Phone: Chief Complaint and Reason [...] No May 18, 2022 4:28pm Power of Lead Software Qa Engineer No May 18 4:28pm Advance Directive Response Recorded Date/ Time Living Will No June 06 2:16pm Power of Lead Software Qa Engineer No June 06 022 2:16pm Advance Directive Response Recorded Date/ Time Living Will No June 06 8:50pm Power of Lead Software Qa Engineer No June 06 022 8:50pm Advance Directive Response Recorded Date/ Time Living Will No June 19 4:12pm Power of Lead Software Qa Engineer No June 19, 2022 4:12pm Advance Directive Response Recorded Date/ Time Living Will No June 19 022 3:12pm Power of Lead Software Qa Engineer No June 19, 2022 3:12pm Advance Directive Response Recorded Date/ Time Advance Directives on File No [email or web address] 8:00am Name of Medical Power of Lead Software Qa Engineer Brandon (Daina dao) November 11, 2022 8:00am Advance Directives Yes November 11, 2022 8:00am Living Will Yes November 11 8:00am Power of Lead Software Qa Engineer Yes November 11, 2022 8:00am Advance Directive Response Recorded Date/ Time Advance Directives on File No Juliette ry 2022 9:00am Name of Medical Power of Lead Software Qa Engineer Brandon (Daina r) November 11, 2022 9:00am Name of Medical Power of Lead Software Qa Engineer DAUGHTER January 22, 2023 3:00pm Advance Directives Yes November 11, 2022 9:00am Living Will Yes January 22, 2023 3:00pm Power of Lead Software Qa Engineer Yes January 22 3:00pm Advance Directive Response Recorded Date/ Time Advance Directives Yes November 11, 2022 9:00am Living Will Yes January 22, 2023 3:00pm Power of Lead Software Qa Engineer Yes January 22 3:00pm Advance Directive Response Recorded Date/ Time Advance Directives Yes November 11, 2022 8:00am Living Will No July 22 12:15pm Power of Lead Software Qa Engineer Yes July 22, 12:15pm Advance Directive Response Recorded Date/ Time Living Will Yes November 22 11:23am Do you have a Healthcare Power of Lead Software Qa Engineer? Yes November 22, 2024 11:23am Name of Medical Power of Lead Software Qa Engineer DAUGHTER November 22, 2024 11:23am Advance Directives [...] Care Provider, Referring Provider Active Dr. Misael Daniels MD Attending Provider Active Team Status: Active [...] Care Provider, Referring Provider Active Lenka Ritchie TOOL AND DIE DESIGNER, TOOL AND DIE DESIGNER-C Attending Provider Active Team Status: Inactive Member [...] Status: Inactive Member Role Status Dates Dr. Msiael Molina MD Primary Care Provider Active Dr. [...] November 24, 2024 Dr. Maurilio Mcmanus DO Other Provider Active St art: November [...] section and content) DATE CREATED AUTHOR 06/24/2025 [facility] FOR RECORDS PERTAINING TO PATIENTS WHO ARE [...] BE BASED ON THE PRIMARY CLINICAL RECORDS. [employer] Dining Secretary [facility]. provides no warranty or guarantee of the accuracy or completeness of information in this document.
[2025-06-24] MEDS: 0.9% Normal Saline (1000mL) 500 ML IV (17:09)
[2025-06-24] MEDS: Epinephrine (1 mg/ml) 1 MG/ML VIAL (17:40)
[2025-06-24] MEDS: 0.9% Normal Saline (Pres. free 10 ML Vial (17:40)
--- NOTE | 2025-06-24 17:53 | OP.EGD_ITS ---
Patient Name: Ravi Beckham Procedure Date: 06/24/2025 4:52 PM Date of : 1950 Age: 75 Procedure: Upper GI endoscopy Indications: Hematemesis Providers: Maurilio Mcmanus DO Medicines: General Anesthesia Patient Profile: This is a 75 year old female. Refer to note in patient chart for documentation of history and physical. Patient has symptoms of acute vomiting. The symptoms first began ,. Her most recent EGD for treatment of bleeding was three years ago. Complications: No immediate complications. Procedure: Pre-Anesthesia Assessment: - Prior to the procedure, a History and Physical was performed, and patient medications and allergies were reviewed. The patient is competent. The risks and benefits of the procedure and the sedation options and risks were discussed with the patient. All questions were answered and informed consent was obtained. Patient identification and proposed procedure were verified by the physician in the pre-procedure area. Mental Status Examination: alert and oriented. Airway Examination: normal oropharyngeal airway and neck mobility. Respiratory Examination: clear to auscultation. CV Examination: normal. Prophylactic Antibiotics: The patient does not require prophylactic antibiotics. Prior Anticoagulants: The patient has taken Eliquis (apixaban), last dose was day of procedure. ASA Grade Assessment: III - A patient with severe systemic disease. After reviewing the risks and benefits, the patient was deemed in satisfactory condition to undergo the procedure. The anesthesia plan was to use general anesthesia. Immediately prior to administration of medications, the patient was re-assessed for adequacy to receive sedatives. The heart rate, respiratory rate, oxygen saturations, blood pressure, adequacy of pulmonary ventilation, and response to care were monitored throughout the procedure. The physical status of the patient was re-assessed after the procedure. After obtaining informed consent, the endoscope was passed under direct vision. Throughout the procedure, the patient's blood pressure, pulse, and oxygen saturations were monitored continuously. The Endoscope was introduced through the mouth, and advanced to the third part of the duodenum. Small bowel enteroscopy was deemed necessary. The upper GI endoscopy was accomplished without difficulty. The patient tolerated the procedure well. Scope In: Scope Out: Findings: A 30 mm bleeding Ena-Bullock tear with stigmata of recent bleeding was found. Area was successfully injected with 20 mL of a 0.1 mg/mL solution of epinephrine for drug delivery. To stop active bleeding, three hemostatic clips were successfully placed. Clip cruller maker: [employer]. There was no bleeding at the end of the procedure. Coagulation for destruction of remaining portion of lesion using argon plasma at 0.5 liters/minute and 30 romero was successful. Estimated blood loss was minimal. Red blood was found in the entire examined stomach. Hematin (altered blood/dlvisx-xhubtl-qgyn material) was found in the stomach. No gross lesions were noted in the entire examined duodenum. Impression: - Ena-Bullock tear. Injected. Clips were placed. Clip cruller maker: [employer]. Treated with argon plasma coagulation (APC). - Red blood in the entire stomach. - Hematin (altered blood/dosvqn-sqedsi-qlpb material) in the stomach. - No gross lesions in the entire examined duodenum. - No specimens collected. Recommendation: - Return patient to [facility] for [facility] care. - Clear liquid diet. - Continue present medications. Procedure Code(s): --- Professional --- 22699, Small intestinal endoscopy, enteroscopy beyond second portion of duodenum, not including ileum; with ablation of tumor(s), polyp(s), or other lesion(s) not amenable to removal by hot biopsy forceps, bipolar cautery or snare technique 10004, 59,51, Small intestinal endoscopy, enteroscopy beyond second portion of duodenum, not including ileum; with control of bleeding (eg, injection, bipolar cautery, unipolar cautery, laser, heater probe, stapler, plasma diesel engine operator) 87747, Unlisted procedure, small intestine CPT copyright 2021 [employer]. All rights reserved. The codes documented in this report are preliminary and upon aircraft engine assembler review may be revised to meet current compliance requirements. Maurilio Mcmanus DO 06/24/2025 5:52:34 PM This report has been signed electronically. Number of Addenda: 0 Note Initiated On: 06/24/2025 4:52 PM
--- NOTE | 2025-06-24 17:53 | OP.PROVAT_ITS ---
06/24/2025 Misael Molina MD [address] [id number] Re : Upper GI endoscopy procedure for Ravi Beckham Dear Dr. Molina This procedure was performed on Tuesday, June 24, 2025. My impressions and recommendations are as follows: Impressions : - Ena-Bullock tear. Injected. Clips were placed. Clip well logging operator mud analysis: [place]. Treated with argon plasma coagulation (APC). - Red blood in the entire stomach. - Hematin (altered blood/jzehnq-hbtqsm-cikn material) in the stomach. - No gross lesions in the entire examined duodenum. - No specimens collected. Recommendations : - [facility]. - Clear liquid diet. - Continue present medications. My findings are described in the full procedure note, which is enclosed. If I can be of further assistance, please feel free to contact me at . Sincerely, Maurilio Friend, 06/24/2025 5:52:34 PM This report has been signed electronically.
--- OUTSIDE RECORDS SUMMARY | 2025-06-24 18:51 | XMS RPT_ITS | CCD ---
Author Organization [facility] CliniSyfl Care Team Providers Care Hot Box Operator Name Role Phone Dr. Misael Molina Primary Care Provider Dr. Hari Snyder Emergency Provider Dr. Filiberto Edge Admit Provider Dr. Filiberto Edge Attending Provider Minesh, Dr. De Los Santos Other Provider Dr. Dax Barksdale Other Provider Dr. Jackson Graham Attending Provider 1([facility])[phone] Jackson Graham Other Provider Dr. Travis Germain Other Provider Collin LOOM CONTROL CHAIN BUILDER, LOOM CONTROL CHAIN BUILDER-C Roselyn Other Provider Dr. Mellisa Victoria Referring [...] Attending Provider Dr. Jackson Graham Referring Provider 1([facility])[phone] Filiberto Edge Referring Provider 1([facility])[phone] Dr. Gerald Low Referring Provider Dr. Aric Hernandez Other Provider Unavailab jayjay Antonio, Dr. Tadeo Other Provider Dr. Shwetha Antonio Attending Provider Nuaudubonjurgen, Dr. Mccall Other Provider Fletcher, Dr. Mccall Attending Provider Fletcher, Dr. Mccall Referring Provider Bernard, Dr. Art Srivastava Referring Provider Tracy, Dr. Douglas Primary Care Provider 1([facility])[phone] Dr. Misael Daniels Attending Provider 1([facility])[phone] Dr. Art Wagner Chi Referring Provider Malena Malik Attending Provider Unavailable Dr. Misael Molina Referring Provider 1([facility])[phone] Misael Daniels Referring Provider 1([facility])[phone] Dr. Misael Daniels Other Provider 1([facility])[phone] Misael Molina Primary Care Provider 1([facility])[phone] Dr. Misael Daniels Attending Provider 1([facility])[phone] Dr. Maurilio Mcmanus Attending Provider 1([facility])[phone] Chau MORALES, LINDA Og Attending Provider Dr. Misael Molina Primary Care Provider 1([facility])[phone] Dr. Misael Daniels Attending Provider 1([facility])[phone] Dr. Misael Daniels Referring Provider 1([facility])[phone] Dr. Misael Daniels Other Provider 1([facility])[phone] Misael Molina Referring Provider 1([facility])[phone] Malena Malik Attending Provider Unavailable Dr. Maurilio Mcmanus Attending Provider 1([facility])[phone] Chau LOOM CONTROL CHAIN BUILDER, LINDA Og Attending Provider Dr. Maurilio Mcmanus Other Provider 1([facility])[phone] Misael Molina Primary Care Provider 1([facility])[phone] Dr. Misael Molina Referring Provider Chau MORALES, ANNYC Lenka Attending Provider Tracy, Dr. Douglas Primary Care Provider [phone] Tracy, Dr. Douglas Referring Provider [phone] Yonathan, Dr. Thorpe Attending Provider [phone] Tracy DAY, Dr. Douglas Primary Care Provider [phone] Tracy DAY, Dr. Douglas Referring Provider [phone] Friend , Dr. Thorpe Attending Provider Friend DO, Dr. Thorpe Other Provider [phone] Tracy DAY, Dr. Douglas Attending Provider [phone] Tracy DAY, Dr. Douglas Primary Care Provider [phone] Hollie DAY, Dr. Pinzon Attending Provider Tracy DAY, Dr. Douglas Referring Provider [phone] Deni DAY, Dr. Marcial Attending Provider Tracy, Misael Referring Unavailable Molina, Misael Primary Care Unavailable Maurilio Mcmanus Consulting Unavailable Maurilio Mcmanus Attending Unavailable Molina, Misael Referring Unavailable Molina, Misael Primary Care Unavailable Anju Mitchell Attending Unavailable Molina, Misael Primary Care Unavailable Deni, Aniket Attending Unavailable Molina, Misael Attending Unavailable Molina, Misael Referring Unavailable Molina, Misael Primary Care Unavailable Sibilia, Dax Yannick Referring Unavailable Molina, Misael Primary Care Unavailable Sibilia, Dax Lanier Attending Unavailable Molina, Misael Attending Unavailable Molina, Misael Referring Unavailable Molina, Misael Primary Care Unavailable Sibilia, Dax V Attending Unavailable Sibilia, Dax V Referring Unavailable Molina, Misael Primary Care Unavailable Molina, Misael Referring Unavailable Molina, Misael Primary Care Unavailable Maurilio Mcmanus Attending Unavailable Molina, Misael Primary Care Unavailable Malena Redd Attending Unavail able Molina, Misael Referring Unavailable Molina, Misael Referring Unavailable Molina, Misael Primary Care Unavailable Aniket Chemea Attending Unavailable Neil RODRIGUEZ, Dr. Espinosa Emergency Provider Yonathan RODRIGUEZ, Dr. Thorpe Attending Provider Yonathan RODRIGUEZ, Dr. Maurilio Other Provider [phone] Allergies Allergy Classification Reported Allergen(s) Allergy Type Date of Onset Reaction(s) Facility (16 sources) Sulfonamides (Antibiotic) Allergy to substance 2 GI issues [facility] (1 source) Sulfonamides (Antibiotic) Drug allergy (disorder) 5 [facility] Repository Medications Current Medications Medication Drug Class(es) Dates Sig (Normalized) Sig (Original) alendronic acid 70 mg oral tablet (20 sources) Bisphosphonate Start: 05-18-2022 take 1 tablet by mouth once Alendronate 70 mg tablet Active 70 mg PO MO May 18, 2022 12:00am Osteoporosis cholecalciferol 0.05 mg oral tablet (16 sources) Vitamin D Start: 09-23-2022 take 1 tablet by mouth once daily Cholecalciferol (Vitamin D3) 50 mcg (2,000 unit) tablet Active 50 ug PO DAILY September 23, 2022 1:00am supplement Cholestyramine Resin (9 sources) Bile Acid Sequestrant Start: 11-24-2024 take [...] after dose empagliflozin 10 mg oral tablet (4 sources) Sodium-Glucose Cotransporter 2 Inhibitor Start: 11-22-2024 [...] polysaccharide iron complex 150 mg oral capsule (17 sources) Start: 07-30-2022 Polysaccharide Iron Complex (Ferrex [...] Sig (Original) acetaminophen 500 mg oral tablet (20 sources) Start: 06-18-2022 End: 09-25-2022 take 1-10 [...] 12:57pm January 23, 2025 3:13pm blood thinner Spswd-Yfjp-Xndgj -Yljzjr-Nj-Zpm (Og (With Collagen)) 7-7-1.5 gram Powder In Packet (20 sources) Start: 06-18-2022 End: 06-18-2022 Imxmu-Euvu-Raapi-Col lag-Mv-Min (Og (With Collagen)) 7-7-1.5 gram Powder In Packet Discontinued 1 NMA PO TWICE DAILY WITH MEALS 0 0 June 18, 2022 12:00am June 18, 2022 2:25pm Start: 06-18-2022 End: 06-18-2022 Mrrut-Spqx-Xhnpk-Collag-Mv-M in (Og (With Collagen)) 7-7-1.5 gram Powder In Packet Discontinued 1 NMA PO TWICE DAILY WITH MEALS 0 June 18, 2022 12:00am June 18, 2022 2:25pm Start: 06-18-2022 End: 06-18-2022 Wpcsd-Gpkp-Ljdxk-Collag-Mv-M in (Og (With Collagen)) 7-7-1.5 gram Powder In Packet Discontinued 1 PACKET PO TWICE DAILY WITH MEALS 0 June 17, 2022 11:00pm June 18, 2022 1:25pm Start: 06-18-2022 End: 06-18-2022 Vhous-Rpge-Rmwtd-Collag-Mv-M in (Og (With Collagen)) 7-7-1.5 gram Powder In Packet Discontinued 1 PACKET PO TWICE DAILY WITH MEALS 0 June 18, 2022 12:00am June 18, 2022 2:25pm Start: 06-18-2022 Eoynx-Azvk-Ahq di-Lzucmy-Dr-Min (Og (With Collagen)) 7-7-1.5 gram Powder In Packet Active 1 PACKET PO TWICE DAILY WITH MEALS 0 June 18, 2022 12:00am Ltbpv-Tlkw-Mqcjg-Collag-Mv-M in (Og (With Collagen)) 7-7-1.5 gram powder in packet (19 sources) Start: 06-18-2022 End: 07-30-2022 Uqcte-Iaqj-Rtybg-Collag-Mv-M in (Og (With Collagen)) 7-7-1.5 gram powder in packet Discontinued 1 NMA PO TWICE DAILY WITH MEALS June 18, 2022 2:24pm July 30, 2022 7:52pm Supplement Start: 06-18-2022 End: 07-30-2022 Plmgq-Tgxv-Nzxef-Collag-Mv-M in (Og (With Collagen)) 7-7-1.5 gram powder in packet Discontinued 1 NMA PO TWICE DAILY WITH MEALS June 18, 2022 2:24pm July 30, 2022 7:52pm Start: 06-18-2022 End: 07-30-2022 Stabq-Ujxu-Xkwlv-Collag-Mv-M in (Og (With Collagen)) 7-7-1.5 gram powder in packet Discontinued 1 PACKET PO TWICE DAILY WITH MEALS June 18, 2022 1:24pm July 30, 2022 6:52pm Start: 06-18-2022 End: 07-30-2022 Luqwe-Mtom-Ttcal-Collag-Mv-M in (Og (With Collagen)) 7-7-1.5 gram powder in packet Discontinued 1 PACKET PO TWICE DAILY WITH MEALS June 18, 2022 2:24pm July 30, 2022 7:52pm Start: 06-18-2022 Bdvhf-Zdfz-Ieu zq-Ddhzut-Yx-Min (Og (With Collagen)) 7-7-1.5 gram powder in packet Active 1 PACKET PO TWICE DAILY WITH MEALS June 18, 2022 2:24pm aspirin 81 mg delayed release oral tablet (16 sources) Platelet Aggregation Inhibitor, Nonsteroidal Anti-inflammatory Drug Start: 10-17-2022 End: 06-24-2023 Aspirin (Adult Low Dose Aspirin) 81 mg tablet,delayed release (DR/EC) Discontinued 81 mg PO DAILY October 17, 2022 1:00am June 24, 2023 1:11pm atorvastatin 40 mg oral tablet (20 sources) HMG-CoA Reductase Inhibitor Start: 07-22-2023 End: 02-21-2025 Atorvastatin 40 mg tablet Discontinued 20 mg PO AT BEDTIME 30 2 August 26, 2024 11:44am February 21, 2025 3:23pm Cholestrol Start: 07-22-2023 take 20 mg by mouth at bedtime Atorvastatin Active 20 MG PO AT BEDTIME July 21, 2023 11:00pm Start: 11-11-2022 End: 07-22-2023 take 1 tablet by mouth at bedtime Atorvastatin 40 mg tablet Discontinued 40 mg PO AT BEDTIME 90 4 November 11, 2022 1:22pm July 22, 2023 12:36pm Cholestrol Start: 11-11-2022 End: 11-11-2022 Atorvastatin 40 mg tablet Discontinued 20 mg PO AT BEDTIME 90 3 November 11, 2022 11:11am November 11, 2022 1:22pm Cholestrol Start: 11-11-2022 End: 11-11-2022 take 20 mg by mouth at bedtime Atorvastatin Discontinu ed 20 MG PO AT BEDTIME 90 November 11, 2022 10:11am November 11, 2022 12:22pm Start: 05-18-2022 End: 11-11-2022 take 1 tablet by mouth at bedtime Atorvastatin 20 mg tablet Discontinued 20 mg PO AT BEDTIME May 18, 2022 12:00am November 11, 2022 11:13am Cholestrol ciprofloxacin 250 mg oral tablet (17 sources) Quinolone Antimicrobial Start: 08-06-2022 End: 09-23-2022 take 1 tablet by mouth twice daily Ciprofloxacin Hcl (Cipro) 250 mg tablet Discontinued 250 mg PO TWICE A DAY 14 0 August 06, 2022 12:00am September 23, 2022 [...] 2022 3:01pm famotidine 20 mg oral tablet (16 sources) Histamine-2 Receptor Antagonist Start: 09-23-2022 End: [...] Decrease UTI metoclopramide 5 mg oral tablet (8 sources) Dopamine-2 Receptor Antagonist Start: 03-10-2023 End: 06-24-2023 take 1 tablet by mouth twice daily 30 minutes before mealtime Metoclopramide Hcl (Reglan) 5 mg tablet Discontinued 5 mg PO TWICE A DAY 60 March 10, 2023 12:00am June 24, 2023 1:11pm administer 30 minutes before meals mirtazapine 15 mg oral tablet (17 sources) Start: 07-30-2022 End: 12-24-2022 take 7.5 [...] 7:53pm oxyCODONE hydrochloride 5 mg oral tablet (6 sources) Opioid Agonist Start: 07-25-2023 End: 01-07-2024 [...] Classification Problem Date Documented Da te Episodic/Chronic Acute posthemorrhagic anemia (20 sources) Acute posthemorrhagic anemia; Translations: [Acute posthemorrhagic anemia] Episodic Cardiac dysrhythmias (20 sources) Atrial fibrillation with rapid ventricular response; Translations: [Unspecified atrial fibrillation] Onset: 5 Chronic Comment on above: On rate control [...] Complications of surgical procedures or medical care (6 sources) Iatrogenic pneumothorax; Translations: [Postprocedural pneumothorax] 07-30-2023 Episodic Coronary atherosclerosis and other heart disease (20 sources) Coronary atherosclerosis; Translations: [Atherosclerotic heart disease of [place] coronary artery without angina pectoris] Onset: 4 Chronic Comment on above: Patient has a histor y of mild coronary artery disease by cath November 11, 2022. Is a 25% circumflex and the right coronary is the LV function was normal. Ejection fraction estimated 60% by echo. Deficiency and other anemia (9 sources) Anemia; Translations: [Anemia, unspecified] 02-11-2023 Episodic Comment on above: 2021 WITH GI BLEED Deficiency and other anemia (2 sources) Anemia, unspecified; Translations: [Anemia, unspecified] 02-11-2023 Episodic Diabetes mellitus without complication (20 sources) Diabetes mellitus; Translations: [Type 2 diabetes mellitus without complications] Onset: 5 Chronic Diseases of white blood cells (20 sources) Leukocytosis; Translations: [Elevated white blood cell count, unspecified] Chronic Comment on above: Etiology unclear Disorders of lipid metabolism (20 sources) Hyperlipidemia; Translations: [Hyperlipidemia, unspecified] Chronic Esophageal disorders (13 sources) Eosinophilic esophagitis; Translations: [Eosinophilic esophagitis] Onset: 5 02-11-2023 Chronic Fluid and electrolyte disorders (20 sources) Dehydration; Translations: [Dehydration] Episodic Gastritis and duodenitis (20 sources) Chronic gastritis; Translations: [Unspecified chronic gastritis without bleeding] Chronic Gastroduodenal ulcer (except hemorrhage) (1 source) Gastric ulcer, unspecified as acute or chronic, without hemorrhage or perforation; Translations: [Gastric ulcer, unspecified as acute or chronic, without hemorrhage or perforation] Onset: 5 Chronic Gastrointestinal hemorrhage (20 sources) Acute upper gastrointestinal hemorrhage; Translations: [Gastrointestinal hemorrhage, unspecified] Onset: 5 Episodic Genitourinary symptoms and ill-defined conditions (20 sources) Retention of urine; Translations: [Retention of urine, unspecified] Episodic Malaise and fatigue (20 sources) Asthenia; Translations: [Weakness] Episodic Mycoses (20 sources) Pneumonia in aspergillosis; Translations: [Aspergillosis, unspecified] Episodic Osteoporosis (20 sources) Osteoporosis; Translations: [Age-related osteoporosis without current pathological fracture] Chronic Other aftercare (20 sources) Drug therapy finding; Translations: [long term care administrator (current) use of anticoagulants] 06-26-2022 Episodic Other aftercare (5 sources) long term care administrator (current) use of anticoagulants; Translations: [Long-term (current) use of anticoagulants] Episodic Other aftercare (6 sources) Long-term current use of anticoagulant; Translations: [long term care administrator (current) use of anticoagulants] 01-07-2024 Episodic Comment on above: Will continue with Rick barthcarl. Gave her a 1 month supply as we try to arrange for financial assistance. Other and unspecified benign neoplasm (14 sources) Polyp ; Translations: [Benign neoplasm, unspecified site] 11-13-2022 Episodic Other and unspecified benign neoplasm (6 sources) Benign neoplasm, unspecified site; Translations: [Benign neoplasm of unspecified site] 11-13-2022 Episodic Other circulatory disease (20 sources) Low blood pressure; Translations: [Hypotension, unspecified] 06-06-2022 Episodic Other circulatory disease (12 sources) Hypotension, unspecified; Translations: [Hypotension, unspecified] Episodic Other gastrointestinal disorders (5 sources) Irritable bowel syndrome with diarrhea; Translations: [Irritable bowel syndrome with diarrhea] 12-10-2023 Chronic Other gastrointestinal disorders (1 source) Irritable bowel syndrome with diarrhea; Translations: [Irritable bowel syndrome] 12-10-2023 Chronic Other nervous system disorders (19 sources) Disorder of brain; Translations: [Encephalopathy, unspecified] 06-18-2022 Chronic Other nervous system disorders (7 sources) Encephalopathy, unspecified; Translations: [Encephalopathy, unspecified] Chronic Other nutritional; endocrine; and metabolic disorders (20 sources) Hypophosphatemia; Translations: [Other disorders of phosphorus metabolism] 06-26-2022 Chronic Other nutritional; endocrine; and metabolic disorders (20 sources) Hypomagnesemia; Translations: [Hypomagnesemia] 06-26-2022 Chronic Other [...] conditions (not mental disorders or infectious disease) (16 sources) Cardiovascular stress test abnormal; Translations: [Abnormal result of other cardiovascular function study] 10-16-2022 Episodic Pneumonia (except that caused by tuberculosis or sexually transmitted disease) (20 sources) Lobar pneumonia; Translations: [Lobar pneumonia, unspecified organism] Episodic Comment on above: Completed treatment Residual codes; unclassified (16 sources) Tobacco user; Translations: [Tobacco use] 09-23-2022 Episodic Residual codes; unclassified (10 sources) Tobacco use; Translations: [Tobacco use disorder] Episodic Residual codes; unclassified (6 sources) History of thoracic surgery; Translations: [Other artificial opening status] 07-30-2023 Episodic Respiratory failure; insufficiency; arrest (adult) (20 sources) Hypoxemic respiratory failure; Translations: [Respiratory failure, unspecified with hypoxia] Episodic Screening and history of mental health and substance abuse codes (1 source) Personal history of nicotine dependence; Translations: [Personal history of nicotine dependence] Onset: Episodic Septicemia (except in labor) (20 sources) [...] Other Problems Problem Classification Problem Date Documented Date Episodic/Chronic Other lower respiratory disease (1 source) Solitary pulmonary nodule; Translations: [Solitary pulmonary nodule] Onset: 08-12-2024 Episodic Residual codes; unclassified (15 sources) History of cardiac catheterization; Translations: [Other specified postprocedural states] Onset: 10-19-2022 11-11-2022 Episodic Comment on above: CORONARY ANGIOGRAPHY [...] Test Name Value Interpretation Reference Range Facility Absolute lymphocyte countOrd ered By: Jesús Trejo on 06-24-2025 Lymphocytes Auto (Unsp spec) [#/Vol] 2.24 10*3/uL 0.83-4.51 [facility] Absolute neutrophil countOrd ered By: Jesús Trejo on 06-24-2025 Neutrophils (Bld) [#/Vol] 20.1 10*3/uL High 2.0-7.7 [facility] Activated partial thrombopla stin time (aPTT) in platelet poor plasma by coagulation aOrdered By: Jesús Trejo on 06-24-2025 aPTT Coag (PPP) [Time] 25.3 s 24.1-36.2 [facility] Anion gap in Serum or Plasma Ordered By: Jesús Trejo on 06-24-2025 Anion gap [Moles/Vol] 21 mmol/L High 5-15 [facility] Automated lymphocyte count a s percentage of total leukocytesOrdered By: Jesús Trejo on 06-24-2025 Lymphocytes/100 WBC Auto (Unsp spec) 9.6 % Low 19-41 [facility] BUN/creatinine ratioOrdered By: Jesús Trejo on 06-24-2025 Urea nitrogen/Creatinine [Mass ratio] 58.1 mg/mg High 10-20 [facility] Basophil percentageOrdered B y: Jesús Trejo on 06-24-2025 Basophils/100 WBC (Bld) 0.3 % 0-1 [facility] Bilirubin directOrdered By: Jesús Trejo on 06-24-2025 Bilirubin.direct [Mass/Vol] 0.13 mg/dL 0.00-0.30 [facility] Bilirubin, totalOrdered By: Jesús Trejo on 06-24-2025 Bilirubin [Mass/Vol] 0.31 mg/dL 0.00-1.30 [facility] Carbon dioxide, total [Moles /volume] in Central venous bloodOrdered By: Jesús Trejo on 06-24-2025 CO2 [Moles/Vol] 18.6 mmol/L Low 21.0-32.0 [facility] Chloride assayOrdered By: Zac Trejo on 06-24-2025 Chloride [Moles/Vol] 100 mmol/L 98-108 [facility] Eosinophil percentageOrdered By: Jesús Trejo on 06-24-2025 Eosinophils/100 WBC (Bld) 0.0 % 0-5 [facility] Erythrocyte distribution wid th ratioOrdered By: Jesús Trejo on 06-24-2025 Erythrocyte distribution width (RBC) [Ratio] 14.6 % 11.6-14.6 [facility] Erythrocyte distribution wid th standard deviationOrdered By: Jesús Singh on 06-24-2025 Erythrocyte distribution width (RBC) [Ratio] 51.4 fl High 35.1-43.9 [facility] Erythrocyte morphology asses smentOrdered By: Jesús Trejo on 06-24-2025 RBC morphology finding Nom (Bld) NORM C+C NORMAL NORM C&C [facility] Glomerular filtration rate ( GFR) estimation/1.73 sq m using serum, plasma, or whole bOrdered By: Jesús Trejo on 06-24-2025 GFR/1.73 sq M.predicted among non-blacks MDRD (S/P/Bld) [Vol rate/Area] 69 mL/min/{1.73_m2} >60 [facility] Comment on above: mL/min/1.73m2 CKD-EP I Creatinine Equation (2020) Hematocrit Auto (Bld) [Volum e fraction]Ordered By: Jesús Trejo on 06-24-2025 Hematocrit (Bld) [Volume fraction] 33.8 % Low 37-47 [facility] Hemoglobin measurementOrdere d By: Jesús Trejo on 06-24-2025 Hemoglobin (Bld) [Mass/Vol] 10.4 g/dL Low 12.0-15.0 [facility] Immature granulocytes/100 WB C Auto (Bld)Ordered By: Jesús Trejo on 06-24-2025 Immature granulocytes/100 WBC (Bld) 0.900 % 0.0-0.9 [facility] Comment on above: IG% - Immature Granu locytes (promyelocytes, myelocytes and metamyelocytes) > 1% indicates that a LEFT SHIFT is Present. International normalized rat io (INR) calculationOrdered By: Jesús Trejo on 06-24-2025 INR Coag (Bld) [Relative time] 1.1 {INR} [facility] Laboratory - Chemistry and C hemistry - challengeOrdered By: Jesús Trejo on 06-24-2025 AST [Catalytic activity/Vol] 22 U/L <32 [facility] Lactic acid measurementOrder ed By: Jesús Trejo on 06-24-2025 Lactate [Moles/Vol] 4.9 mmol/L High 0.0-2.0 [facility] Comment on above: Critical Result(s) C alled at: 1629 by: HILARIO MUSE TO MAX TODD Results read back by same. Lipase measurementOrdered By : Jesús Trejo on 06-24-2025 Lipase [Catalytic activity/Vol] 15 U/L 13-75 [facility] Comment on above: Please note:LIPASE r evised reference range effective 23. New Lipase methodology. Expected to produce lower values than the previous assay method. NEW Reference Range: 13 - 75 U/L MCV (mean corpuscular volume ) determinationOrdered By: Jesús Trejo on 06-24-2025 MCV (RBC) [Entitic vol] 96.6 fL 81-99 [facility] Mean corpuscular hemoglobin (MCH) determinationOrdered By: Jesús Trejo on 06-24-2025 MCH (RBC) [Entitic mass] 29.7 pg 27.0-32.0 [facility] Mean corpuscular hemoglobin concentration (MCHC) determinationOrdered By: Jesús Trejo on 06-24-2025 MCHC (RBC) [Mass/Vol] 30.8 g/dL Low 32-36 [facility] Mean platelet volume determi nationOrdered By: Jesús Trejo on 06-24-2025 Platelet mean volume (Bld) [Entitic vol] 10.8 fL 6.2-12.0 [facility] Monocyte percentageOrdered B y: Jesús Trejo on 06-24-2025 Monocytes/100 WBC (Bld) 3.8 % 0-10 [facility] Natriuretic peptide.B prohor teddy N-Terminal [Mass/volume] in Serum or PlasmaOrdered By: Jesús Trejo on 06-24-2025 Natriuretic peptide.B prohormone N-Terminal [Mass/Vol] 528 pg/mL <900 [facility] Comment on above: Heart Failure Unlike ly: < 300 pg/mLHeart Failure Likely< 50 Years: > 450 pg/mL50-75 Years: > 900 pg/mL>75 Years: > 1800 pg/mL Neutrophil percentageOrdered By: Jesús Trejo on 06-24-2025 Neutrophils/100 WBC (Bld) 85.4 % High 47-70 [facility] Nucleated red blood cell per centageOrdered By: Jesús Trejo on 06-24-2025 Nucleated RBC/100 WBC (Bld) [Ratio] 0 % 0-5 [facility] Platelet countOrdered By: Zac Trejo on 06-24-2025 Platelets (Bld) [#/Vol] 481 10*3/uL High 150-450 [facility] Platelet estimateOrdered By: Jesús Trejo on 06-24-2025 Platelets LM Ql (Bld) ADEQUATE ADEQ [facility] Potassium measurement (mass/ volume)Ordered By: Jesús Trejo on 06-24-2025 Potassium (Unsp spec) [Mass/Vol] 4.6 mmol/L 3.3-5.1 [facility] Prothrombin timeOrdered By: Jesús Trejo on 06-24-2025 PT Coag (PPP) [Time] 14.8 s 11.7-14.9 [facility] RBC Auto (Bld) [#/Vol]Ordere d By: Jesús Trejo on 06-24-2025 RBC (Bld) [#/Vol] 3.50 10*6/uL Low 4.2-5.4 [facility] Serum creatinine measurement (mass/volume)Ordered By: Jesús Trejo on 06-24-2025 Creatinine [Mass/Vol] 0.88 mg/dL 0.70-1.20 [facility] Serum globulin measurementOr dered By: Jesús Trejo on 06-24-2025 Globulin (S) [Mass/Vol] 2.8 g/dL 2.2-4.2 [facility] Serum glucose measurement (m ass/volume)Ordered By: Jesús Trejo on 06-24-2025 Glucose [Mass/Vol] 217 mg/dL High 70-99 [facility] Serum or plasma alanine hollis otransferase (ALT) measurementOrdered By: Jesús Trejo on 06-24-2025 ALT [Catalytic activity/Vol] 20 U/L <35 [facility] Serum or plasma albumin ana urement (mass/volume)Ordered By: Jesús Singh on 06-24-2025 Albumin [Mass/Vol] 4.0 g/dL 3.4-4.8 [facility] Serum or plasma alkaline francisca sphatase measurementOrdered By: Jesús Trejo on 06-24-2025 ALP [Catalytic activity/Vol] 71 U/L 35-104 [facility] Serum or plasma calcium ana urement (mass/volume)Ordered By: Jesús Singh on 06-24-2025 Calcium [Mass/Vol] 9.6 mg/dL 7.6-11.0 [facility] Serum or plasma urea nitroge n measurement (mass/volume)Ordered By: Jesús Trejo on 06-24-2025 Urea nitrogen [Mass/Vol] 51 mg/dL High 4-19 [facility] Sodium levelOrdered By: Dmitry Trejo on 06-24-2025 Sodium [Moles/Vol] 139 mmol/L 133-145 [facility] Total proteinOrdered By: Bean Trejo on 06-24-2025 Protein [Mass/Vol] 6.7 g/dL 5.9-8.4 [facility] Troponin T.cardiac [Mass/vol ume] in Serum or Plasma by High sensitivity methodOrdered By: Jesús Trejo on 06-24-2025 Troponin T.cardiac High sensitivity method [Mass/Vol] 12 ng/L <14 [facility] White blood cell (WBC) count Ordered By: Jesús Trejo on 06-24-2025 WBC (Bld) [#/Vol] 23.5 10*3/uL High 4.4-11.0 [facility] CBC-Complete Blood Cnt No Di ffon 06-16-2025 Erythrocyte distribution width (RBC) [Ratio] 14.5 % Normal 11.6-14.6 [facility] Comment on above: Performed By: #### L 500.4100, L500.4050, L502.0250 #### [facility] [address] [place], [address] Hematocrit (Bld) [Volume fraction] 40.2 % Normal 37-47 [facility] Comment on above: Performed By: #### L 500.4100, L500.4050, L502.0250 #### [facility] [address] [place], [address] Hemoglobin (Bld) [Mass/Vol] 12.7 g/dL Normal 12.0-15.0 [facility] Comment on above: Performed By: #### L 500.4100, L500.4050, L502.0250 #### [facility] [address] [place], [address] MCH (RBC) [Entitic mass] 29.7 pg Normal 27.0-32.0 [facility] Comment on above: Performed By: #### L 500.4100, L500.4050, L502.0250 #### [facility] [address] [place], [address] MCHC (RBC) [Mass/Vol] 31.6 g/dL Low 32-36 [facility] Comment on above: Performed By: #### L 500.4100, L500.4050, L502.0250 #### [facility] [address] [place], [address] MCV (RBC) [Entitic vol] 93.9 fL Normal 81-99 [facility] Comment on above: Performed By: #### L 500.4100, L500.4050, L502.0250 #### [facility] [address] [place], [address] Platelet mean volume (Bld) [Entitic vol] 10.2 fL Normal 6.2-12.0 [facility] Comment on above: Performed By: #### L 500.4100, L500.4050, L502.0250 #### [facility] [address] [place], [address] Platelets (Bld) [#/Vol] 445 10*3/uL Normal 150-450 [facility] Comment on above: Performed By: #### L 500.4100, L500.4050, L502.0250 #### [facility] [address] [place], [address] RBC (Bld) [#/Vol] 4.28 10*6/uL Normal 4.2-5.4 [facility] Comment on above: Performed By: #### L 500.4100, L500.4050, L502.0250 #### [facility] [address] [place], [address] RDW SD 50.3 fl High 35.1-43.9 [facility] Comment on above: Performed By: #### L 500.4100, L500.4050, L502.0250 #### [facility] [address] [place], [address] WBC (Bld) [#/Vol] 10.5 10*3/uL Normal 4.4-11.0 [facility] Comment on above: Performed By: #### L 500.4100, L500.4050, L502.0250 #### [facility] [address] [place], [address] Cardiology Visit Reporton Cardiology Visit Report [facility] [address] [place] [address] OFFICE VISIT Date of Service: 06/16/25 MR#: [id number] Acct: [id number] Name: RAVI BECKHAM Rep #: [id number] : 1950 Provider: Dr. Aniket ornelas MD Age/Sex: 75/F [place] [facility] [place] Signed HPI HPI History of Present Illness Details: Patient is a pleasant 75-year-old white female who comes today for monitor of her cardiovascular status. Patient has a history of mild coronary disease on catheterization in 2022. She has a history of paroxysmal atrial fibrillation that started in 2021 was initially diagnosed. She has a HLV9HR1-DGCh score of 4 she has been maintained [...] room air Intake Visit Reasons: 9 M Installation Supervisor Required: No Accompanied by: Self Is patient [...] (Eliquis) 5 mg PO BID Faxed to [facility] 05/1206/16/25 Rx [facility] #180 tabs atorvastatin [...] (LHC) ( 11/11/22) Atherosclerotic heart disease of [place] coronary artery without angina pectoris Abnormal stress [...] Pain: No (more content not included)... Normal [facility] Erythrocyte distribution wid th ratioOrdered By: Aniket Cheeam on 06-16-2025 Erythrocyte distribution width (RBC) [Ratio] 14.5 % 11.6-14.6 [facility] Erythrocyte distribution wid th standard deviationOrdered By: Aniket Cheema on 06-16-2025 Erythrocyte distribution width (RBC) [Ratio] 50.3 fl High 35.1-43.9 [facility] Hematocrit Auto (Bld) [Volum e fraction]Ordered By: Aniket Cheema on 06-16-2025 Hematocrit (Bld) [Volume fraction] 40.2 % 37-47 [facility] Hemoglobin measurementOrdere d By: Aniket Cheema on 06-16-2025 Hemoglobin (Bld) [Mass/Vol] 12.7 g/dL 12.0-15.0 [facility] MCV (mean corpuscular volume ) determinationOrdered By: Aniket Cheema on 06-16-2025 MCV (RBC) [Entitic vol] 93.9 fL 81-99 [facility] Mean corpuscular hemoglobin (MCH) determinationOrdered By: Aniket Cheema on 06-16-2025 MCH (RBC) [Entitic mass] 29.7 pg 27.0-32.0 [facility] Mean corpuscular hemoglobin concentration (MCHC) determinationOrdered By: Aniket Cheema on 06-16-2025 MCHC (RBC) [Mass/Vol] 31.6 g/dL Low 32-36 [facility] Mean platelet volume determi nationOrdered By: Aniket Cheema on 06-16-2025 Platelet mean volume (Bld) [Entitic vol] 10.2 fL 6.2-12.0 [facility] Platelet countOrdered By: Susi Cheema on 06-16-2025 Platelets (Bld) [#/Vol] 445 10*3/uL 150-450 [facility] RBC Auto (Bld) [#/Vol]Ordere d By: Aniket Cheema on 06-16-2025 RBC (Bld) [#/Vol] 4.28 10*6/uL 4.2-5.4 [facility] White blood cell (WBC) count Ordered By: Aniket Cheema on 06-16-2025 WBC (Bld) [#/Vol] 10.5 10*3/uL 4.4-11.0 [facility] Microalb:Creat Ratio,Random URon 04-06-2025 MALB:CREAT 10.6 mg/g CRE Normal [facility] Comment on above: Result Comment: AMENDED REPORT 04/06/25 1209 MALB:CREAT previously reported as: 105.7 mg/g CRE Performed By: #### L 502.0250, L500.4100, L500.2500 #### [facility] [address] [place], [address] Albumin DL <= 20 mg/L (U) [M ass/Vol]Ordered By: Misael Molina on 01-26-2025 Urine Random Microalbumin 18.5 mg/L NO RANGE EST. [facility] Anion gap in Serum or Plasma Ordered By: Misael Molina on 01-26-2025 Anion gap [Moles/Vol] 14 mmol/L 03-02 [facility] BUN/creatinine ratioOrdered By: Misael Molina on 01-26-2025 Urea nitrogen/Creatinine [Mass ratio] 16.4 mg/mg - [facility] Basic Metabolic Profile (BMP )on 01-26-2025 BUN/CRE 16.4 RATIO Normal 08-07 [facility] Comment on above: Performed By: #### L 502.0250, L500.4100, L500.2500 #### [facility] [address] [place], [address] Calcium [Mass/Vol] 9.7 mg/dL Normal 7.6-11.0 [facility] Comment on above: Performed By: #### L 502.0250, L500.4100, L500.2500 #### [facility] [address] [place], [address] Chloride [Moles/Vol] 102 mmol/L Normal 98-108 [facility] Comment on above: Performed By: #### L 502.0250, L500.4100, L500.2500 #### [facility] [address] [place], [address] CO2 [Moles/Vol] 23.6 mmol/L Normal 21.0-32.0 [facility] Comment on above: Performed By: #### L 502.0250, L500.4100, L500.2500 #### [facility] [address] [place], [address] Creatinine [Mass/Vol] 0.95 mg/dL Normal 0.70-1.20 [facility] Comment on above: Performed By: #### L 502.0250, L500.4100, L500.2500 #### [facility] [address] [place], [address] GAP 14 Normal 5-15 [facility] Comment on above: Performed By: #### L 502.0250, L500.4100, L500.2500 #### [facility] [address] [place], [address] GFR/1.73 sq M.predicted among non-blacks MDRD (S/P/Bld) [Vol rate/Area] 64 mL/min/{1.73_m2} Normal >60 [facility] Comment on above: Result Comment: mL/m in/1.73m2 CKD-EPI Creatinine Equation (2020) Performed By: #### L 502.0250, L500.4100, L500.2500 #### [facility] [address] [place], [address] Glucose [Mass/Vol] 116 mg/dL High 70-99 [facility] Comment on above: Performed By: #### L 502.0250, L500.4100, L500.2500 #### [facility] [address] [place], [address] Potassium [Moles/Vol] 4.3 mmol/L Normal 3.3-5.1 [facility] Comment on above: Performed By: #### L 502.0250, L500.4100, L500.2500 #### [facility] [address] [place], [address] Sodium [Moles/Vol] 140 mmol/L Normal 133-145 [facility] Comment on above: Performed By: #### L 502.0250, L500.4100, L500.2500 #### [facility] [address] [place], [address] Urea nitrogen [Mass/Vol] 16 mg/dL Normal 4-19 [facility] Comment on above: Performed By: #### L 502.0250, L500.4100, L500.2500 #### [facility] [address] [place], [address] Calculated very low density lipoprotein (VLDL) cholesterol measurementOrdered By: Misael Molina on 01-26-2025 VLDL Cholesterol 38 mg/dL 5-40 [facility] Carbon dioxide, total [Moles /volume] in Central venous bloodOrdered By: Misael Molina on 01-26-2025 CO2 [Moles/Vol] 23.6 mmol/L 21.0-32.0 [facility] Chloride assayOrdered By: Branden Molina on 01-26-2025 Chloride [Moles/Vol] 102 mmol/L 98-108 [facility] Creatinine Unsp time (U) [Ma ss/Vol]Ordered By: Misael Molina on 01-26-2025 Creatinine (U) [Mass/Vol] 175.00 mg/dL 28 .00-217. 00 [facility] GFR/1.73 sq M.predicted demetra g non-blacks MDRD (S/P/Bld) [Vol rate/Area]Ordered By: Misael Molina on 01-26-2025 Estimated GFR (MDRD) Non-Af Amer 64 >60 [facility] Comment on above: mL/min/1.73m2 CKD-EP I Creatinine Equation (2020) LDL calc ser/plasOrdered By: Misael Molina on 01-26-2025 LDL Cholesterol, Calculated 58 mg/dL [facility] Comment on above: Mzquvpjqbx=640-511 m g/dL & Higher Ihwg=551 mg/dL or greater Lipid Profileon 01-26-2025 CHOL:HDL 3.09 Normal [facility] Comment on above: Performed By: #### L 502.0250, L500.4100, L500.2500 #### [facility] [address] [place], [address] Cholesterol [Mass/Vol] 142 mg/dL Normal <=200 [facility] Comment on above: Result Comment: Chol esterol level, Desirable <200 mg/dL Borderline high cholesterol 200-239 mg/dL High cholesterol >=240 mg/dL Recommendations of the NCEP Adult Treatment Panel for the following risk-cutoff thresholds for the [place] population. Performed By: #### L 502.0250, L500.4100, L500.2500 #### [facility] [address] [place], [address] Cholesterol in HDL [Mass/Vol] 46 mg/dL Normal [facility] Comment on above: Result Comment: Selena onal Cholesterol Education Program (NCEP) guidelines: <40 mg/dL: Low HDL-cholesterol (major risk factor for CHD) >= 60 mg/dL: High HDL-cholesterol (negative risk factor for CHD) HDL-cholesterol is affected by a number of factors, e.g. smoking, exercise, hormones, sex and age. Performed By: #### L 502.0250, L500.4100, L500.2500 #### [facility] [address] [place], [address] Cholesterol in LDL [Mass/Vol] 58 mg/dL Normal [facility] Comment on above: Result Comment: Bord zijibj=145-091 mg/dL Higher Xvmt=060 mg/dL or greater Performed By: #### L 502.0250, L500.4100, L500.2500 #### [facility] [address] [place], [address] Cholesterol in VLDL [Mass/Vol] 38 mg/dL Normal 5-40 [facility] Comment on above: Performed By: #### L 502.0250, L500.4100, L500.2500 #### [facility] [address] [place], [address] Triglyceride [Mass/Vol] 191 mg/dL Normal [facility] Comment on above: Result Comment: The drugs N-Acetylcysteine and Metamizole may falsely depress this assay. Normal range: <150 mg/dL Borderline High: 150-199 mg/dL High: 200-499 mg/dL Very High: >500 mg/dL Performed By: #### L 502.0250, L500.4100, L500.2500 #### [facility] [address] [place], [address] Microalbumin/creat ratio urO rdered By: Misael Molina on 01-26-2025 Urine Microalbumin/Creatinine Ratio 105.7 mg/g CRE [facility] Potassium (Unsp spec) [Mass/ Vol]Ordered By: Misael Molina on 01-26-2025 Potassium [Moles/Vol] 4.3 mmol/L 3.3-5.1 [facility] Screening total cholesterol/ high density lipoprotein (HDL) cholesterol ratioOrdered By: Misael Molina on 01-26-2025 Cholesterol.total/Cholest cat in HDL [Mass ratio] 3.09 {ratio} [facility] Serum creatinine measurement (mass/volume)Ordered By: Misael Molina on 01-26-2025 Creatinine [Mass/Vol] 0.95 mg/dL 0.70-1.20 [facility] Serum glucose measurement (m ass/volume)Ordered By: Misael Molina on 01-26-2025 Glucose [Mass/Vol] 116 mg/dL High 70-99 [facility] Serum or plasma calcium ana urement (mass/volume)Ordered By: Misael Molina on 01-26-2025 Calcium [Mass/Vol] 9.7 mg/dL 7.6-11.0 [facility] Serum or plasma cholesterol in HDL measurement (mass/volume)Ordered By: Misael Molina on 01-26-2025 Cholesterol in HDL [Mass/Vol] 46 mg/dL >40 [facility] Comment on above: National Cholesterol Education Program (NCEP) guidelines:<40 mg/dL: Low HDL-cholesterol (major risk factor for CHD)>= 60 mg/dL: High HDL-cholesterol (negative risk factor for CHD)HDL-cholesterol is affected by a number of factors, e.g. smoking, exercise, hormones, sex and age. Serum or plasma cholesterol measurement (mass/volume)Ordered By: Misael Molina on 01-26-2025 Cholesterol [Mass/Vol] 142 mg/dL <201 [facility] Comment on above: Cholesterol level, D esirable <200 mg/dLBorderline high cholesterol 200-239 mg/dLHigh cholesterol >=240 mg/dLRecommendations of the NCEP Adult Treatment Panel for the following risk-cutoff thresholds for the [place] population. Serum or plasma urea nitroge n measurement (mass/volume)Ordered By: Misael Molina on 01-26-2025 Urea nitrogen [Mass/Vol] 16 mg/dL 4-19 [facility] Sodium levelOrdered By: Misael Molina on 01-26-2025 Sodium [Moles/Vol] 140 mmol/L 133-145 [facility] Triglycerides measurementOrd ered By: Misael Molina on 01-26-2025 Triglyceride [Mass/Vol] 191 mg/dL <199 [facility] Comment on above: The drugs N-Acetylcy steine and Metamizole may falsely depress this assay. Normal range: <150 mg/dLBorderline High: 150-199 mg/dLHigh: 200-499 mg/dLVery High: >500 mg/dL Bedside Glucoseon 11-24-2024 FINGERSTICK GLU 206 mg/dL High 74-106 [facility] Comment on above: Result Comment: MIHIR LINCOLN OF PATIENT CARE PER NURSING PROTOCOL Performed By: #### L 501.080 #### [facility] [address] [place], [address] Colonoscopy Reporton 025 Colonoscopy Report [facility] Medical Records Department [address] [place] [address] Colonoscopy Report MR#: [id number] Acct: [id number] Name: RAVI BECKHAM Rep #: [id number] : 1950 74 From: Maurilio Mcmanus DO PCP: Dr. Misael Molina MD Status:[facility] Patient Name: Ravi Beckham Procedure Date: 11/24/2024 [...] for surveillance. Procedure Code(s): --- Professional --- 89401, Colonoscopy, flexible; with biopsy, single or multiple CPT copyright 2021 [employer]. All rights reserved. The codes documented in this report are preliminary and upon naval architect specialist review may be revised to meet current compliance requirements. Maurilio Mcmanus DO 11/24/2024 7:58:28 AM This report has been signed electronically. Number of Addenda: 0 Note Initiated On: 11/24/2024 7:30 AM 11/24/24 0758 Date Maurilio Mcmanus DO Cosigner Signature: Date (if indicated) CC: Dr. Misael Molina MD; Maurilio Mcmanus DO Date Dictated: [id number] Date Transcribed: Surgery Consultant: VENKAT Signed Normal [facility] EGD Reporton 11-24-2024 EGD Report [facility] Medical Records Department [address] [place] [address] EGD Report MR#: [id number] Acct: [id number] Name: RAVI BECKHAM Rep #: [id number] : 1950 74 From: Maurilio Mcmanus DO PCP: Dr. Misael Molina MD Status:[facility] Patient Name: Ravi Beckham Procedure Date: 11/24/2024 [...] pathology results. Procedure Code(s): --- Professional --- 78591, Esophagogastroduodenoscop y, flexible, transoral; with biopsy, single or multiple CPT copyright 2021 [employer]. All rights reserved. The codes documented in this report are preliminary and upon naval architect specialist review may be revised to meet current compliance requirements. Maurilio Mcmanus DO 11/24/2024 7:29:56 AM This report has been signed electronically. Number of Addenda: 0 Note Initiated On: 11/24/2024 6:17 AM 11/24/24 0754 Date Maurilio Mcmanus DO Cosigner Signature: Date (if indicated) CC: Dr. Misael Molina MD; Maurilio Mcmanus DO Date Dictated: 11/24/24616 Date Transcribed: Surgery Consultant: VENKAT Signed Normal [facility] deOrdered By: Maurilio Mcmanus on 11-24-2024 Bedside Glucose (Misc Panel) 206 mg/dL High 74-106 [facility] Comment on above: MANAGEMENT OF PATIEN T CARE PER NURSING PROTOCOL H Pylori (initial)on H Pylori (initial) ----- Patient Age/Sex Location Account Attending Physician RAVI BECKHAM 74/F EN [id number] Maurilio Mcmanus DO Specimen: [id number] Received: 11/24/24 Status: LAURA [facility] Num: [id number] Spec Type: IMMUNO Subm Dr: Maurilio Mcmanus DO PHYSICIAN INSTITUTION [address] [address] SPECIMEN INFORMATION: Tissue Source: A- Antrum biopsy Clinical Info: Eosinophilic esophagitis, GI bleed, irritable bowel syndrome with diarrhea Specimen Number: [id number] CPT code: 22086 METHODOLOGY: Deparaffinized sections of prefer/formalin-fixed tissue or [...] developed and their performance characteristics determined by [facility]. They may not have been cleared or approved by the U.S. Food and Drug Administration. The FDA has determined that such clearance or approval is not necessary. The above immunohistochemical/dualI SH markers are ordered and reviewed by the Pathologist. INTERPRETATION: A. Antrum, biopsy: Negative for Helicobacter pylori organisms. 11/25/2024 Signed (signature on file) Dr. Basim Jay MD 11/25/24 1203 Normal [facility] Comment on above: Performed By: #### P H.PYLORI #### [facility] [address] [place], [place], [id number] MR/POSTOP.Naun 11-24-2024 MR/POSTOP.MILY [facility] Medical Records Department [facility] [place] [address] Anesthesia Postop Eval I 11/24/24 0729 MR#: [id number] Acct: [id number] Name: RAVI BECKHAM Rep #: [id number] : 1950 74 From: Osiris Schaefer CRNA PCP: Dr. Misael Molina MD Status:[facility] Y Race: C Location: [place] [address] Anesthesia: Postop Eval I Current Vital Signs [...] 1 completed: Yes 11/24/24729 Date Osiris Schaefer COMPOSITION WORKER Cosigner Signature: Date CC: Signed Normal [facility] MR/[id number] 11-24-2024 [facility] Medical Records Department [address] [place] [address] Anesthesia Postop Eval II 11/24/24 1042 MR#: [id number] Acct: [id number] Name: RAVI BECKHAM Rep #: [id number] : 1950 74 From: Lupe Murphy PCP: Dr. Misael Molina MD Status:[facility] Y Race: C Location: [place] Anesthesia Postop Eval I Sum Postop Eval Completion status Anesthesia document: Postop Eval 1 completed: Yes Anesthesia Postop Eval I Summary Anesthesia Postop Eval I Summary: Anesthesia Postop Eval I: Assessment Summary Airway patent Yes 11/24/24 07:30 COMPOSITION WORKER.JSWI Spontaneous unlabored Yes 11/24/24 07:30 COMPOSITION WORKER.JSWI respirations Mental status Awake 11/24/24 07:30 COMPOSITION WORKER.JSWI nausea No 11/24/24 07:30 COMPOSITION WORKER.JSWI Vomiting No 11/24/24 07:30 COMPOSITION WORKER.JSWI Anesthesia Postop Eval I: Fluid Summary Crystalloid volume administer 20 11/24/24 07:30 HELEN (ml) Colloids volume administered ( ml) Blood Product volume administered (ml) Total IV fluid infused 11/24/24 07:30 HELEN Anesthesia Postop Eval I: Summary Notes Anesthesia Complication No 11/24/24 07:30 HELEN Anesthesia Complication Comment: Post-operative progress note Anesthesia: Postop Eval II Evaluation Mental status: Awake and Calm Pain Level: 0 nausea: No Vomiting: No 11/24/24 1042 Date Lupe Palacios Signature: Date CC: Signed Normal [facility] Surgery Specimen Level [place] 11-24-2024 Surgery Specimen Level IV Patient Age/Sex Location Account Attending Physician RAVI BECKHAM 74/F EN [id number] Maurilio Mcmanus DO Specimen: [id number] Received: 11/24/24 Status: LAURA [facility] Num: [id number] Spec Type: COLON BX Subm Dr: Maurilio Mcmanus, DO HEADER OPERATION: Colonoscopy, EGD biopsy PRE-OP [...] for Helicobacter pylori will be reported separately ([id number]). MICROSCOPIC DESCRIPTION Slides are reviewed. A. The [...] Account Attending Physician RAVI BECKHAM 74/F EN [id number] Maurilio Mcmanus DO that in aggregate measure [...] totally submitted in one cassette. 11/24/2024 TC:2 CPT:63439e7 Patient Age/Sex Location Account Attending Physician RAVI BECKHAM 74/F EN [id number] Maurilio Mcmanus DO Signed (signature on file) Dr. Basim Jay MD 11/25/24 1137 Normal [facility] Comment on above: Performed By: #### P SUIV #### [facility] [address] [place], [place], [address] MR/Sumanth 11-22-2024 MR/EDGARDO [facility] Medical Records Department [address] [place] [address] PAT - Anesthesia 11/22/24 1612 MR#: [id number] Acct: [id number] Name: RAVI BECKHAM Rep #: [id number] : 1950 74 From: Wilson Torres MD PCP: Dr. Misael Molina MD Status:PRE SDC Y Race: C Location: EN Pre-Assessment Diagnosis/Proposed Procedure Planned Operative Procedure(s): EGD/CSCOPE Anesthesia History Anesthesia History - manager of training and development: Anesthesia History - manager of training and development Hx Hospitalization No 11/22/24 10:23 Any Problems [...] take am of surgery PONV PONV - manager of training and development: PONV - manager of training and development Female Yes 11/22/24 10:23 HX of Motion [...] 07/06/24 13:28 Respiratory Assessment Respiratory Assessment - manager of training and development: Respiratory Tract Infection Hx - manager of training and development Hx Respiratory Tract Infection No 11/22/24 10:23 STOP Sleep Apnea STOP Sleep Apnea - manager of training and development: STOP Sleep Apnea - manager of training and development Hx Hypertension Yes: CONTROLLED WITH MED 11/22/24 [...] Tobacco Use History Tobacco Use History - manager of training and development: Tobacco Use History - manager of training and development Tobacco Use Smoking Status Former smoker 11/22/24 10:23 Hx Tobacco Use No 11/22/24 10:23 Years Smoking Packs Smoked per Day Smoking Cessation Date was Yes - quit smoking within 15 11/22/24 10:23 within the last 15 years years Hx Smoking Cessation Date 05/18/22 11/22/24 10:23 Hx Smoking Cessation No 11/22/24 10:23 Counseling Hematologic Medial History Hematologic Hx - manager of training and development: Hematologic Medical Hx - valance cutter Hx of Blood Transfusion Yes 11/22/24 10:23 [...] confused, unrespo /Reproduction History /Reproductive History - manager of training and development: /Reproductive Hx- manager of training and development Hx Now No 11/22/24 10:23 Gestational Age (in weeks): EDC: Hx Hx Para Hx Section SAB No 11/22/24 10:23 [facility] Medical History (Updated 11/22/24 @ 10:34 by [...] (LHC) ( 11/11/22) Atherosclerotic heart disease of [place] coronary artery without angina pectoris Abnormal stress test Type 1 diabetes Tobacco abuse Hematuria Diabetes mellitus Paroxysmal A-fib History of diabetes mellitus COVID-19 High cholester (more content not included)... Normal [facility] Gastroenterology Visit Repor ton 09-13-2024 Gastroenterology Visit Report [facility] [address] [place] [address] OFFICE VISIT Date of Service: 09/13/24 MR#: [id number] Acct: [id number] Name: RAVI BECKHAM Rep #: [id number] : 1950 Provider: BRANDEN Del Rosario Age/Sex: 74/F Location: [facility] Status: Signed Intake Vital Signs 01/07/24 13:01 [...] denies bloody stools and continues pantoprazole daily. PFSH Medical History Iatrogenic pneumothorax Legionnaires' disease [...] (LHC) ( 11/11/22) Atherosclerotic heart disease of [place] coronary artery without angina pectoris Abnormal stress [...] PMH DM 1; CAD; hyperlipidemia; encephalopathy; a.Fib [facility] Hospitalization 05.18.22-05.31.22 for COVID with legionella pne, respiratory failure. Discharged to SNF. [facility] ED 06.03.22 with SOB and hypoxia. *[facility] hospitalization 06.06.22-06.18.22 with transfer to TCU until [...] abdominal pain, melena, n/v or constipation OV 11.26.24 Pt reports decreased episodes of diarrhea since [...] exertion Maru (more content not included)... Normal [facility] Comprehensive Metabolic Prof ilon 07-27-2024 Albumin [Mass/Vol] 3.7 g/dL Normal 3.2-5.0 [facility] Comment on above: Order Comment: ONLY NEILEN ORDER Performed By: #### L 500.4100, L500.4050, L502.0250 #### [facility] [address] [place], [address] Albumin/Globulin [Mass ratio] 1.0 {ratio} Normal 0.9-2.4 [facility] Comment on above: Order Comment: ONLY NEILEN ORDER Performed By: #### L 500.4100, L500.4050, L502.0250 #### [facility] [address] [place], [address] ALK P 87 U/L Normal 45-117 [facility] Comment on above: Order Comment: ONLY NEILEN ORDER Performed By: #### L 500.4100, L500.4050, L502.0250 #### [facility] [address] [place], [address] ALT [Catalytic activity/Vol] 21 U/L Normal 13-56 [facility] Comment on above: Order Comment: ONLY NEILEN ORDER Performed By: #### L 500.4100, L500.4050, L502.0250 #### [facility] [address] [place], [address] AST [Catalytic activity/Vol] 16 U/L Normal 15-37 [facility] Comment on above: Order Comment: ONLY NEILEN ORDER Performed By: #### L 500.4100, L500.4050, L502.0250 #### [facility] [address] [place], [address] Bilirubin [Mass/Vol] 0.40 mg/dL Normal 0.20-1.00 [facility] Comment on above: Order Comment: ONLY NEILEN ORDER Result Comment: For patients on eltrombopag therapy, use of Dimension [place] TBIL is not recommended. Performed By: #### L 500.4100, L500.4050, L502.0250 #### [facility] [address] [place], [address] BUN/CRE 23.5 RATIO High 10-20 [facility] Comment on above: Order Comment: ONLY NEILEN ORDER Performed By: #### L 500.4100, L500.4050, L502.0250 #### [facility] [address] [place], [address] CA,Total 9.7 mg/dL Normal 8.5-10.1 [facility] Comment on above: Order Comment: ONLY NEILEN ORDER Performed By: #### L 500.4100, L500.4050, L502.0250 #### [facility] [address] [place], [address] Chloride [Moles/Vol] 103 mmol/L Normal 98-107 [facility] Comment on above: Order Comment: ONLY NEILEN ORDER Performed By: #### L 500.4100, L500.4050, L502.0250 #### [facility] [address] [place], [address] CO2 [Moles/Vol] 25.0 mmol/L Normal 21.0-32.0 [facility] Comment on above: Order Comment: ONLY NEILEN ORDER Performed By: #### L 500.4100, L500.4050, L502.0250 #### [facility] [address] [place], [address] Creatinine [Mass/Vol] 0.89 mg/dL Normal 0.55-1.02 [facility] Comment on above: Order Comment: ONLY NEILEN ORDER Result Comment: The validity of the calculated GFR GFRAA in patients over 70 years has not been determined. Clinical correlation is essential. Performed By: #### L 500.4100, L500.4050, L502.0250 #### [facility] [address] [place], [address] EST GFR - AA 80 mL/min Normal >60 [facility] Comment on above: Order Comment: ONLY NEILEN ORDER Result Comment: Afri can Indian GFR Calc Performed By: #### L 500.4100, L500.4050, L502.0250 #### [facility] [address] [place], [address] GAP 10 Normal 5-15 [facility] Comment on above: Order Comment: ONLY NEILEN ORDER Performed By: #### L 500.4100, L500.4050, L502.0250 #### [facility] [address] [place], [address] GFR/1.73 sq M.predicted among non-blacks MDRD (S/P/Bld) [Vol rate/Area] 66 mL/min/{1.73_m2} Normal >60 [facility] Comment on above: Order Comment: ONLY NEILEN ORDER Result Comment: Non- GFR Calc Performed By: #### L 500.4100, L500.4050, L502.0250 #### [facility] [facility] [address] [place], [address] Globulin (S) [Mass/Vol] 3.7 g/dL Normal 2.2-4.2 [facility] Comment on above: Order Comment: ONLY NEILEN ORDER Performed By: #### L 500.4100, L500.4050, L502.0250 #### [facility] [address] [place], [address] Glucose [Mass/Vol] 135 mg/dL High 74-106 [facility] Comment on above: Order Comment: ONLY NEILEN ORDER Result Comment: Fast ing Glucose result greater than or equal to 126 mg/dL suggests DIABETES MELLITUS per A.D.A. criteria. Performed By: #### L 500.4100, L500.4050, L502.0250 #### [facility] [address] [place], [address] Potassium [Moles/Vol] 3.5 mmol/L Normal 3.5-5.1 [facility] Comment on above: Order Comment: ONLY NEILEN ORDER Performed By: #### L 500.4100, L500.4050, L502.0250 #### [facility] [address] [place], [address] Sodium [Moles/Vol] 138 mmol/L Normal 136-145 [facility] Comment on above: Order Comment: ONLY NEILEN ORDER Performed By: #### L 500.4100, L500.4050, L502.0250 #### [facility] [address] [place], [address] T PROT 7.4 g/dL Normal 6.4-8.2 [facility] Comment on above: Order Comment: ONLY NEILEN ORDER Performed By: #### L 500.4100, L500.4050, L502.0250 #### [facility] [address] [place], [address] Urea nitrogen [Mass/Vol] 21 mg/dL High 7-18 [facility] Comment on above: Order Comment: ONLY NEILEN ORDER Performed By: #### L 500.4100, L500.4050, L502.0250 #### [facility] [address] [place], [address] Lipid Profileon 07-27-2024 Cholesterol [Mass/Vol] 141 mg/dL Normal 200 [facility] Comment on above: Order Comment: ONLY NEILEN ORDER Result Comment: <200 mg/dL Desirable 200-240 mg/dL Borderline >240 mg/dL High Risk Performed By: #### L 500.4100, L500.4050, L502.0250 #### [facility] [address] [place], [address] Cholesterol in HDL [Mass/Vol] 50 mg/dL Normal [facility] Comment on above: Order Comment: ONLY NEILEN ORDER Result Comment: The drugs N-Acetylcysteine and Metamizole may falsely depress this assay. Reference Range HDL <40 mg/dL Low HDL Cholesterol HDL >or= 60 mg/dL High HDL Cholesterol Performed By: #### L 500.4100, L500.4050, L502.0250 #### [facility] [address] [place], [address] Cholesterol in LDL [Mass/Vol] 53 mg/dL Normal 0-130 [facility] Comment on above: Order Comment: ONLY NEILEN ORDER Performed By: #### L 500.4100, L500.4050, L502.0250 #### [facility] [address] [place], [address] Cholesterol in VLDL [Mass/Vol] 38 mg/dL Normal 5-40 [facility] Comment on above: Order Comment: ONLY NEILEN ORDER Performed By: #### L 500.4100, L500.4050, L502.0250 #### [facility] [address] [place], [address] Triglyceride [Mass/Vol] 191 mg/dL Normal [facility] Comment on above: Order Comment: ONLY NEILEN ORDER Result Comment: The drugs N-Acetylcysteine and Metamizole may falsely depress this assay. Serum Triglycerides Reference Interval Normal <150 mg/dL Borderline high 150 - 199 mg/dL High 200 - 499 mg/dL Very High > or = 500 mg/dL Performed By: #### L 500.4100, L500.4050, L502.0250 #### [facility] [address] [place], [address] Microalb:Creat Ratio,Random URon 07-27-2024 Creatinine [Mass/Vol] 127.00 mg/dL Normal NO RAN GE EST. [facility] Comment on above: Performed By: #### L 500.4100, L500.4050, L502.0250 #### [facility] [address] [place], [address] MALB:CRE 35.7 mg/g CRE High <30 mg/g CRE [facility] Comment on above: Performed By: #### L 500.4100, L500.4050, L502.0250 #### [facility] [address] [place], [address] MICROALBUMIN,UR 45.3 mg/L Normal NO RANGE EST. [facility] Comment on above: Performed By: #### L 500.4100, L500.4050, L502.0250 #### [facility] [address] [place], [address] Chest without Contraston Chest without Contrast [facility] Imaging Services [address] [place] [address] Chest without Contrast MR#: [id number] Acct: [id number] Name: RAVI BECKHAM Rep #: [id number] : 1950 F 74 From: Jeremy Tinajero MD PCP: Dr. Misael Molina MD Status: REG CLI Study: Chest without Contrast Date of Exam: 07/15/24 Exam# [id number] Ordering Dr: Dax Terry MD [id number] EXAM: CT CHEST WITHOUT INTRAVENOUS CONTRAST CLINICAL [...] Misael Molina MD; Dr. Dax Terry MD Surgery Consultant: Signed Normal [facility] Cardiology Visit Reporton Cardiology Visit Report [facility] [address] [place] [address] OFFICE VISIT Date of Service: 07/06/24 MR#: [id number] Acct: [id number] Name: RAVI BECKHAM Rep #: [id number] : 1950 Provider: BRANDEN Haas Age/Sex: 74/F Location: [facility] Status: Signed [facility] History of Present Illness Details: This is [...] room air Intake Visit Reasons: 6 M Installation Supervisor Required: No Is patient in pain?: No [...] (LHC) ( 11/11/22) Atherosclerotic heart disease of [place] coronary artery without angina pectoris Abnormal stress [...] myalgia Neuro (more content not included)... Normal [facility] Basophil percentageOrdered B y: Misael Molina on 12-02-2023 Chloride [Moles/Vol] 104 mmol/L 98-107 [facility] Cholesterol [Mass/Vol] 173 mg/dL <200 [facility] Comment on above: <200 mg/dL Desirable 200-240 mg/dL Borderline >240 mg/dL High Risk Glucose [Mass/Vol] 168 mg/dL 74-106 [facility] Comment on above: Fasting Glucose resu lt greater than or equal to 126 mg/dL suggests DIABETES MELLITUS per A.D.A. criteria. Potassium [Moles/Vol] 4.1 mmol/L 3.5-5.1 [facility] Sodium [Moles/Vol] 139 mmol/L 136-145 [facility] Triglyceride [Mass/Vol] 181 mg/dL <199 [facility] Comment on above: The drugs N-Acetylcy steine and Metamizole may falsely depress this assay.Serum Triglycerides Reference Interval Normal <150 mg/dL Borderline high 150 - 199 mg/dL High 200 - 499 mg/dL Very High > or = 500 mg/dL Laboratory - Chemistry and C hemistry - challengeOrdered By: Misael Molina on 12-02-2023 Cholesterol in HDL [Mass/Vol] 50 mg/dL >40 [facility] Comment on above: The drugs N-Acetylcy steine and Metamizole may falsely depress this assay. Reference Range HDL <40 mg/dL Low HDL Cholesterol HDL >or= 60 mg/dL High HDL Cholesterol Cholesterol in LDL [Mass/Vol] 87 mg/dL 0-130 [facility] CO2 [Moles/Vol] 27.0 mmol/L 21.0-32.0 [facility] Urea nitrogen/Creatinine [Mass ratio] 19.4 mg/mg 10-20 [facility] No Panel InformationOrdered By: Misael Molina on 12-02-2023 Estimated GFR (MDRD) Amer 76 mL/min >60 [facility] Comment on above: GFR Calc Estimated GFR (MDRD) Non-Af Amer 63 mL/min >60 [facility] Comment on above: Non- GFR Calc Urine Microalbumin/Creatinine Ratio 20.4 mg/g CRE <30 [facility] VLDL Cholesterol 36 mg/dL 5-40 [facility] Serum or plasma calcium ana urement (mass/volume)Ordered By: Misael Molina on 12-02-2023 Calcium [Mass/Vol] 9.7 mg/dL 8.5-10.1 [facility] Serum or plasma creatinine m easurement (mass/volume)Ordered By: Misael Molina on 12-02-2023 Creatinine [Mass/Vol] 0.93 mg/dL 0.55-1.02 [facility] Comment on above: The validity of the calculated GFR & GFRAA in patients over 70 years has not been determined. Clinical correlation is essential. Serum or plasma urea nitroge n measurement (mass/volume)Ordered By: Misael Molina on 12-02-2023 Urea nitrogen [Mass/Vol] 18 mg/dL 7-18 [facility] Thin prep Papanicolaou smear with manual screeningOrdered By: Misael Molina on 12-02-2023 Thin prep Papanicolaou smear with manual screening 8 5-15 [facility] Thin prep Papanicolaou smear with manual screening 28.7 mg/L NO RANGE EST. [facility] Urine creatinine measurement (mass/volume)Ordered By: Misael Molina on 12-02-2023 Creatinine (U) [Mass/Vol] 141.00 mg/dL NO RANGE EST. [facility] Whole blood hemoglobin A1c/t otal hemoglobin ratio (mass fraction)Ordered By: Misael Molina on 12-02-2023 HbA1c (Bld) [Mass fraction] 7.2 % 3.8-5.6 [facility] Comment on above: Normal < 5.7 % Predi abetic 5.7 - 6.4 % Diabetic >or= 6.5 % Please note range changes. Culture, urineOrdered By: Branden Molina on 06-25-2023 Bacteria identified Cx Nom (U) Citrobacter freundii [facility] Basophil percentageOrdered B y: Misael Molina on 06-08-2023 Chloride [Moles/Vol] 100 mmol/L 98-107 [facility] Cholesterol [Mass/Vol] 185 mg/dL <200 [facility] Comment on above: <200 mg/dL Desirable 200-240 mg/dL Borderline >240 mg/dL High Risk Glucose [Mass/Vol] 152 mg/dL 74-106 [facility] Comment on above: Fasting Glucose resu lt greater than or equal to 126 mg/dL suggests DIABETES MELLITUS per A.D.A. criteria. Potassium [Moles/Vol] 3.9 mmol/L 3.5-5.1 [facility] Sodium [Moles/Vol] 136 mmol/L 136-145 [facility] Triglyceride [Mass/Vol] 254 mg/dL <199 [facility] Comment on above: The drugs N-Acetylcy steine and Metamizole may falsely depress this assay.Serum Triglycerides Reference Interval Normal <150 mg/dL Borderline high 150 - 199 mg/dL High 200 - 499 mg/dL Very High > or = 500 mg/dL Laboratory - Chemistry and C hemistry - challengeOrdered By: Misael Molina on 06-08-2023 CO2 [Moles/Vol] 26.0 mmol/L 21.0-32.0 [facility] Urea nitrogen/Creatinine [Mass ratio] 14.1 mg/mg 10-20 [facility] No Panel InformationOrdered By: Misael Molina on 06-08-2023 Estimated GFR (MDRD) Amer 85 mL/min >60 [facility] Comment on above: GFR Calc Estimated GFR (MDRD) Non-Af Amer 70 mL/min >60 [facility] Comment on above: Non- GFR Calc Serum or plasma calcium ana urement (mass/volume)Ordered By: Misael Molina on 06-08-2023 Calcium [Mass/Vol] 9.7 mg/dL 8.5-10.1 [facility] Serum or plasma cholesterol in HDL measurement (mass/volume)Ordered By: Misael Molina on 06-08-2023 Cholesterol in HDL [Mass/Vol] 48 mg/dL >40 [facility] Comment on above: The drugs N-Acetylcy steine and Metamizole may falsely depress this assay. Reference Range HDL <40 mg/dL Low HDL Cholesterol HDL >or= 60 mg/dL High HDL Cholesterol Serum or plasma cholesterol in VLDL measurement (mass/volume)Ordered By: Misael Molina on 06-08-2023 Cholesterol in VLDL [Mass/Vol] 51 mg/dL 5-40 [facility] Serum or plasma creatinine m easurement (mass/volume)Ordered By: Misael Molina on 06-08-2023 Creatinine [Mass/Vol] 0.85 mg/dL 0.55-1.02 [facility] Comment on above: The validity of the calculated GFR & GFRAA in patients over 70 years has not been determined. Clinical correlation is essential. Serum or plasma low density lipoprotein (LDL) cholesterol measurement (mass/volume)Ordered By: Misael Molina on 06-08-2023 Cholesterol in LDL [Mass/Vol] 86 mg/dL 0-130 [facility] Serum or plasma urea nitroge n measurement (mass/volume)Ordered By: Misael Molina on 06-08-2023 Urea nitrogen [Mass/Vol] 12 mg/dL 7-18 [facility] Thin prep Papanicolaou smear with manual screeningOrdered By: Misael Molina on 06-08-2023 Thin prep Papanicolaou smear with manual screening 10 5-15 [facility] Glucose Glucometer (BldC) [M ass/Vol]Ordered By: Maurilio Mcmanus on 01-27-2023 Glucose [Mass/Vol] 171 mg/dL 74-106 [facility] Comment on above: MANAGEMENT OF PATIEN T CARE PER NURSING PROTOCOL Absolute lymphocyte countOrd ered By: Dr. Terry on 01-26-2023 Lymphocytes Auto (Unsp spec) [#/Vol] 2.49 10*3/uL 0.83-4.51 [facility] Atypical perinuclear antineu trophil cytoplasmic antibodies measurementOrdered By: Dr. Terry on 01-26-2023 Neutrophil cytoplasmic Ab.perinuclear.atypical IF (S) [Titer] <1:20 titer Neg:<1:20 [facility] Comment on above: The atypical pANCA p attern has been observed in asignificant percentage of patients with ulcerative colitis,primary sclerosing cholangitis and autoimmune hepatitis. Basophil percentageOrdered B y: Dr. Terry on 01-26-2023 Basophil percentage < 0.2 AI 0.0-0.9 [facility] Basophils/100 WBC (Bld) 0.5 % 0-1 [facility] Bilirubin [Mass/Vol] 0.40 mg/dL 0.20-1.00 [facility] Comment on above: For patients on eltr ombopag therapy, use of Dimension [place] TBIL is not recommended. Eosinophils/100 WBC (Bld) 2.0 % 0-5 [facility] Neutrophils (Bld) [#/Vol] 6.4 10*3/uL 2.0-7.7 [facility] Neutrophils/100 WBC (Bld) 65.7 % 47-70 [facility] Protein [Mass/Vol] 8.2 g/dL 6.4-8.2 [facility] WBC (Bld) [#/Vol] 9.7 10*3/uL 4.4-11.0 [facility] Blood erythrocytes count (nu mber/volume)Ordered By: Dr. Terry on 01-26-2023 RBC (Bld) [#/Vol] 4.15 10*6/uL 4.2-5.4 [facility] Blood hemoglobin measurement (mass/volume)Ordered By: Dr. Terry on 01-26-2023 Hemoglobin (Bld) [Mass/Vol] 12.6 g/dL 12.0-15.0 [facility] Blood lymphocytes/100 leukoc ytesOrdered By: Dr. Terry on 01-26-2023 Lymphocytes/100 WBC (Bld) 25.8 % 19-41 [facility] Blood monocytes/100 leukocyt esOrdered By: Dr. Terry on 01-26-2023 Monocytes/100 WBC (Bld) 5.7 % 0-10 [facility] Blood platelet mean volumeOr dered By: Dr. Terry on 01-26-2023 Platelet mean volume (Bld) [Entitic vol] 9.3 fL 6.2-12.0 [facility] Determination of erythrocyte mean corpuscular volume (MCV)Ordered By: Dr. Terry on 01-26-2023 MCV (RBC) [Entitic vol] 96.1 fL 81-99 [facility] Direct bilirubinOrdered By: Dr. Terry on 01-26-2023 Bilirubin.direct [Mass/Vol] 0.11 mg/dL 0.00-0.30 [facility] Erythrocyte sedimentation ra teOrdered By: Dr. Terry on 01-26-2023 ESR (Bld) [Velocity] 20 mm/h 0-30 [facility] Hematocrit Auto (Bld) [Volum e fraction]Ordered By: Dr. Terry on 01-26-2023 Hematocrit (Bld) [Volume fraction] 39.9 % 37-47 [facility] - Chemistry and C hemistry - challengeOrdered By: Dr. Terry on 01-26-2023 ALP [Catalytic activity/Vol] 76 U/L 45-117 [facility] ALT [Catalytic activity/Vol] 28 U/L 13-56 [facility] Globulin (S) [Mass/Vol] 3.8 g/dL 2.2-4.2 [facility] - Hematology and Cell countsOrdered By: Dr. Terry on 01-26-2023 Erythrocyte distribution width (RBC) [Entitic vol] 46.6 fL 35.1-43.9 [facility] Erythrocyte distribution width (RBC) [Ratio] 13.2 % 11.6-14.6 [facility] Immature granulocytes/100 WBC (Bld) 0.300 % 0.0-0.9 [facility] Comment on above: IG% - Immature Granu locytes (promyelocytes, myelocytes and metamyelocytes) > 1% indicates that a LEFT SHIFT is Present. MCH (RBC) [Entitic mass] 30.4 pg 27.0-32.0 [facility] Nucleated RBC/100 WBC (Bld) [Ratio] 0 % 0-5 [facility] MCHC Auto (RBC) [Mass/Vol]Or dered By: Dr. Terry on 01-26-2023 MCHC (RBC) [Mass/Vol] 31.6 g/dL 32-36 [facility] No Panel InformationOrdered By: Dr. Terry on 01-26-2023 Anti-Nuclear Antibody Screen Negative Negative [facility] Comment on above: Performed at: [address] [id number] Director: Chuck Crabtree PhD, Phone: [phone] [employer] Antibody <0.2 AI 0.0-0.9 [facility] Platelets bldOrdered By: Dr. Terry on 01-26-2023 Platelets (Bld) [#/Vol] 436 10*3/uL 150-450 [facility] Serum DNA double strand anti body assay (units/volume)Ordered By: Dr. Terry on 01-26-2023 DNA double strand Ab Qn (S) [IU]/mL 0-9 [facility] Comment on above: Negative <5 Equivoca l 5 - 9 Positive >9 Serum Scl-70 extractable nuc lear antibody assay (units/volume)Ordered By: Dr. Terry on 01-26-2023 SCL-70 extractable nuclear Ab Qn (S) <0.2 AI 0.0-0.9 [facility] Serum classic neutrophil cyt oplasmic antibody assay (units/volume)Ordered By: Dr. Terry on 01-26-2023 Neutrophil cytoplasmic Ab.classic Qn (S) <1:20 titer Neg:<1:20 [facility] Serum cyclic citrullinated p eptide IgG antibody assay (units/volume)Ordered By: Dr. Terry on 01-26-2023 Cyclic citrullinated peptide IgG Qn 6 units 0-19 [facility] Comment on above: Negative <20 Weak po sitive 20 - 39 Moderate positive 40 - 59 Strong positive >59Performed at: [facility] Director: Chuck Crabtree PhD, Phone: [phone] Serum or plasma C reactive p rotein measurement (mass/volume)Ordered By: Dr. Terry on 01-26-2023 CRP [Mass/Vol] 3.32 mg/L 0.0-3.0 [facility] Comment on above: C-Reactive Protein ( CRP) provides useful information for thediagnosis, therapy and monitoring of inflammatory processesand associated diseases. For the evaluation of Relative Riskfor Cardiovascular Disease, a High Sensitivity CRP (HSCRP)should be ordered. Serum or plasma actin IgG an tibody assay (units/volume)Ordered By: Dr. Terry on 01-26-2023 Actin IgG Qn 5 Units 0-19 [facility] Comment on above: Negative 0 - 19 Weak positive 20 - 30 Moderate to strong positive >30 Actin Antibodies are found in 52-85% of patients with autoimmune hepatitis or chronic active hepatitis and in 22% of patients with primary biliary cirrhosis. Serum or plasma albumin ana urement (mass/volume)Ordered By: Dr. Terry on 01-26-2023 Albumin [Mass/Vol] 4.4 g/dL 3.2-5.0 [facility] Serum or plasma angiotensin converting enzyme measurement (enzymatic activity/volume)Ordered By: Dr. Terry on 01-26-2023 Angiotensin converting enzyme [Catalytic activity/Vol] 64 U/L 14-82 [facility] Serum perinuclear neutrophil cytoplasmic antibody titer by immunofluorescenceOrdered By: Dr. Terry on 01-26-2023 Neutrophil cytoplasmic Ab.perinuclear IF (S) [Titer] <1:20 titer Neg:<1:20 [facility] Comment on above: The presence of posi tive fluorescence exhibiting P-ANCA orC-ANCA patterns alone is not specific for the diagnosis ofWegener's Granulomatosis (WG) or microscopic polyangiitis.Decisions about treatment should not be based solely onANCA IFA results. The [employer] ANCA Group Consensusrecommends follow up testing of positive sera with both MD-3 and MPO-ANCA enzyme immunoassays. As many as 5% serumsamples are positive only by EIA. Ref. AM J Clin [id number];111:507-513. Serum rheumatoid factor dete ctionOrdered By: Dr. Terry on 01-26-2023 Rheumatoid factor Ql (S) < 10.0 IU/mL <15 [facility] Thin prep Papanicolaou smear with manual screeningOrdered By: Dr. Terry on 01-26-2023 Thin prep Papanicolaou smear with manual screening 18 U/L 15-37 [facility] Basophil percentageOrdered B y: Dr. Molina on 12-11-2022 Cholesterol [Mass/Vol] 156 mg/dL <200 [facility] [facility] Comment on above: <200 mg/dL Desirable 200-240 mg/dL Borderline >240 mg/dL High Risk Triglyceride [Mass/Vol] 182 mg/dL <199 [facility] Comment on above: The drugs N-Acetylcy steine and Metamizole may falsely depress this assay.Serum Triglycerides Reference Interval Normal <150 mg/dL Borderline high 150 - 199 mg/dL High 200 - 499 mg/dL Very High > or = 500 mg/dL Serum or plasma cholesterol in HDL measurement (mass/volume)Ordered By: Dr. Molina on 12-11-2022 Cholesterol in HDL [Mass/Vol] 46 mg/dL >40 [facility] Comment on above: The drugs N-Acetylcy steine and Metamizole may falsely depress this assay. Reference Range HDL <40 mg/dL Low HDL Cholesterol HDL >or= 60 mg/dL High HDL Cholesterol Serum or plasma cholesterol in VLDL measurement (mass/volume)Ordered By: Dr. Molina on 12-11-2022 Cholesterol in VLDL [Mass/Vol] 36 mg/dL 5-40 [facility] Serum or plasma low density lipoprotein (LDL) cholesterol measurement (mass/volume)Ordered By: Dr. Molina on 12-11-2022 Cholesterol in LDL [Mass/Vol] 74 mg/dL 0-130 [facility] Basophil percentageOrdered B y: Dr. Daniels on 11-13-2022 Chloride [Moles/Vol] 100 mmol/L 98-107 [facility] Glucose [Mass/Vol] 122 mg/dL 74-106 [facility] Comment on above: Fasting Glucose resu lt from 100 to 125 mg/dL suggests IMPAIRED HOMEOSTASIS per A.D.A. criteria. Potassium [Moles/Vol] 3.4 mmol/L 3.5-5.1 [facility] Sodium [Moles/Vol] 137 mmol/L 136-145 [facility] Laboratory - Chemistry and C hemistry - challengeOrdered By: Dr. Daniels on 11-13-2022 CO2 [Moles/Vol] 27.0 mmol/L 21.0-32.0 [facility] Urea nitrogen/Creatinine [Mass ratio] 21.3 mg/mg 10-20 [facility] No Panel InformationOrdered By: Dr. Daniels on 11-13-2022 Estimated GFR (MDRD) Amer 85 mL/min >60 [facility] Comment on above: GFR Calc Estimated GFR (MDRD) Non-Af Amer 70 mL/min >60 [facility] Comment on above: Non- GFR Calc Serum or plasma calcium ana urement (mass/volume)Ordered By: Dr. Daniels on 11-13-2022 Calcium [Mass/Vol] 8.9 mg/dL 8.5-10.1 [facility] Serum or plasma creatinine m easurement (mass/volume)Ordered By: Dr. Daniels on 11-13-2022 Creatinine [Mass/Vol] 0.85 mg/dL 0.55-1.02 [facility] Comment on above: The validity of the calculated GFR & GFRAA in patients over 70 years has not been determined. Clinical correlation is essential. Serum or plasma urea nitroge n measurement (mass/volume)Ordered By: Dr. Daniels on 11-13-2022 Urea nitrogen [Mass/Vol] 18 mg/dL 7-18 [facility] Thin prep Papanicolaou smear with manual screeningOrdered By: Dr. Daniels on 11-13-2022 Thin prep Papanicolaou smear with manual screening 10 5-15 [facility] Basophil percentageOrdered B y: Dr. Daniels on 11-04-2022 Chloride [Moles/Vol] 100 mmol/L 98-107 [facility] Glucose [Mass/Vol] 130 mg/dL 74-106 [facility] Comment on above: Fasting Glucose resu lt greater than or equal to 126 mg/dL suggests DIABETES MELLITUS per A.D.A. criteria. Potassium [Moles/Vol] 3.6 mmol/L 3.5-5.1 [facility] Sodium [Moles/Vol] 137 mmol/L 136-145 [facility] WBC (Bld) [#/Vol] 11.7 10*3/uL 4.4-11.0 [facility] Blood erythrocytes count (nu mber/volume)Ordered By: Dr. Daniels on 11-04-2022 RBC (Bld) [#/Vol] 3.93 10*6/uL 4.2-5.4 [facility] Blood hemoglobin measurement (mass/volume)Ordered By: Dr. Daniels on 11-04-2022 Hemoglobin (Bld) [Mass/Vol] 11.4 g/dL 12.0-15.0 [facility] Blood platelet mean volumeOr dered By: Dr. Daniels on 11-04-2022 Platelet mean volume (Bld) [Entitic vol] 9.1 fL 6.2-12.0 [facility] Determination of erythrocyte mean corpuscular volume (MCV)Ordered By: Dr. Daniels on 11-04-2022 MCV (RBC) [Entitic vol] 93.4 fL 81-99 [facility] Hematocrit Auto (Bld) [Volum e fraction]Ordered By: Dr. Daniels on 11-04-2022 Hematocrit (Bld) [Volume fraction] 36.7 % 37-47 [facility] INR in Blood by Coagulation assayOrdered By: Dr. Daniels on 11-04-2022 INR Coag (Bld) [Relative time] 1.1 {INR} [facility] Laboratory - Chemistry and C hemistry - challengeOrdered By: Dr. Daniels on 11-04-2022 CO2 [Moles/Vol] 28.0 mmol/L 21.0-32.0 [facility] Urea nitrogen/Creatinine [Mass ratio] 28.0 mg/mg 10-20 [facility] Laboratory - CoagulationOrde red By: Dr. Daniels on 11-04-2022 aPTT Coag (Bld) [Time] 32.2 s 24.1-36.2 [facility] PT Coag (PPP) [Time] 14.1 s 11.7-14.9 [facility] Laboratory - Hematology and Cell countsOrdered By: Dr. Daniels on 11-04-2022 Erythrocyte distribution width (RBC) [Entitic vol] 49.3 fL 35.1-43.9 [facility] Erythrocyte distribution width (RBC) [Ratio] 14.4 % 11.6-14.6 [facility] MCH (RBC) [Entitic mass] 29.0 pg 27.0-32.0 [facility] MCHC Auto (RBC) [Mass/Vol]Or dered By: Dr. Daniels on 11-04-2022 MCHC (RBC) [Mass/Vol] 31.1 g/dL 32-36 [facility] No Panel InformationOrdered By: Dr. Daniels on 11-04-2022 Estimated GFR (MDRD) Amer 93 mL/min >60 [facility] Comment on above: GFR Calc Estimated GFR (MDRD) Non-Af Amer 77 mL/min >60 [facility] Comment on above: Non- GFR Calc Platelets bldOrdered By: Dr. Daniels on 11-04-2022 Platelets (Bld) [#/Vol] 445 10*3/uL 150-450 [facility] Serum or plasma calcium ana urement (mass/volume)Ordered By: Dr. Daniels on 11-04-2022 Calcium [Mass/Vol] 9.3 mg/dL 8.5-10.1 [facility] Serum or plasma creatinine m easurement (mass/volume)Ordered By: Dr. Daniels on 11-04-2022 Creatinine [Mass/Vol] 0.78 mg/dL 0.55-1.02 [facility] Comment on above: The validity of the calculated GFR & GFRAA in patients over 70 years has not been determined. Clinical correlation is essential. Serum or plasma urea nitroge n measurement (mass/volume)Ordered By: Dr. Daniels on 11-04-2022 Urea nitrogen [Mass/Vol] 22 mg/dL 7-18 [facility] Thin prep Papanicolaou smear with manual screeningOrdered By: Dr. Daniels on 11-04-2022 Thin prep Papanicolaou smear with manual screening 9 5-15 [facility] Culture, urineOrdered By: Dr Abdelrahman Wagner on 08-08-2022 Bacteria identified Cx Nom (U) Klebsiella pneumoniae sp pneum [facility] Glucose Glucometer (BldC) [M ass/Vol]Ordered By: Dr. Wagner on 08-06-2022 Glucose [Mass/Vol] 135 mg/dL 74-106 [facility] Comment on above: MANAGEMENT OF PATIEN T CARE PER NURSING PROTOCOL Basophil percentageOrdered B y: Dr. Wagner on 08-05-2022 Basophil percentage >100 SEEN /hpf 0-5 [facility] Bilirubin Test strip Ql (U)O rdered By: Dr. Wagner on 08-05-2022 Bilirubin Ql (U) Negative Negative [facility] Ketones Test strip Ql (U)Ord ered By: Dr. Wagner on 08-05-2022 Ketones Ql (U) Negative Negative [facility] Mucus LM Ql (Urine sed)Order ed By: Dr. Wagner on 08-05-2022 Mucus Ql (Urine sed) 0 SEEN /hpf [facility] Nitrite Test strip Ql (U)Ord ered By: Dr. Wagner on 08-05-2022 Nitrite Ql (U) Negative Negative [facility] Protein Test strip Ql (U)Ord ered By: Dr. Wagner on 08-05-2022 Protein Ql (U) 15 mg/dl Negative [facility] Squamous epithelial cells de tection in urine sediment by light microscopyOrdered By: Dr. Wagner on 08-05-2022 Epithelial cells.squamous LM Ql (Urine sed) 0-5 SEEN /hpf 5-10 [facility] Urine blood detectionOrdered By: Dr. Wagner on 08-05-2022 RBC Ql (U) 25 /ul Negative [facility] RBC Ql (U) 5-10 SEEN /hpf 0-5 [facility] Urine clarityOrdered By: Dr. Wagner on 08-05-2022 Clarity (U) Sl. Cloudy Clear [facility] Urine color determinationOrd ered By: Dr. Wagner on 08-05-2022 Color (U) Yellow Yellow [facility] Urine glucose detectionOrder ed By: Dr. Wagner on 08-05-2022 Glucose Ql (U) Normal mg/dl Normal [facility] Urine leukocyte esterase det ection by dipstickOrdered By: Dr. Wagner on 08-05-2022 Leukocyte esterase Test strip Ql (U) 500 /ul Negative [facility] Urine pHOrdered By: Dr. Wagner on 08-05-2022 pH (U) 6.0 [pH] 5.0 - 8.0 [facility] Urine sediment bacteria coun t by microscopy (number/high power field)Ordered By: Dr. Wagner on 08-05-2022 Bacteria LM.HPF (Urine sed) [#/Area] 4 /[HPF] None Seen [facility] Urine specific gravity measu rementOrdered By: Dr. Wagner on 08-05-2022 Specific gravity (U) [Rel density] 1.010 1.002-1.03 0 [facility] Urobilinogen Auto test strip Ql (U)Ordered By: Dr. Wagner on 08-05-2022 Urobilinogen Ql (U) Normal mg/dl Normal [facility] Absolute lymphocyte countOrd ered By: Dr. Wagner on 07-31-2022 Lymphocytes Auto (Unsp spec) [#/Vol] 1.82 10*3/uL 0.83-4.51 [facility] Basophil percentageOrdered B y: Dr. Wagner on 07-31-2022 Basophils/100 WBC (Bld) 0.6 % 0-1 [facility] Chloride [Moles/Vol] 102 mmol/L 98-107 [facility] Eosinophils/100 WBC (Bld) 8.2 % 0-5 [facility] Glucose [Mass/Vol] 160 mg/dL 74-106 [facility] Comment on above: Fasting Glucose resu lt greater than or equal to 126 mg/dL suggests DIABETES MELLITUS per A.D.A. criteria. Neutrophils (Bld) [#/Vol] 7.3 10*3/uL 2.0-7.7 [facility] Neutrophils/100 WBC (Bld) 64.9 % 47-70 [facility] Potassium [Moles/Vol] 3.9 mmol/L 3.5-5.1 [facility] Sodium [Moles/Vol] 135 mmol/L 136-145 [facility] WBC (Bld) [#/Vol] 11.3 10*3/uL 4.4-11.0 [facility] Blood erythrocytes count (nu mber/volume)Ordered By: Dr. Wagner on 07-31-2022 RBC (Bld) [#/Vol] 3.57 10*6/uL 4.2-5.4 [facility] Blood hemoglobin measurement (mass/volume)Ordered By: Dr. Wagner on 07-31-2022 Hemoglobin (Bld) [Mass/Vol] 10.0 g/dL 12.0-15.0 [facility] Blood lymphocytes/100 leukoc ytesOrdered By: Dr. Wagner on 07-31-2022 Lymphocytes/100 WBC (Bld) 16.1 % 19-41 [facility] Blood monocytes/100 leukocyt esOrdered By: Dr. Wagner on 07-31-2022 Monocytes/100 WBC (Bld) 9.1 % 0-10 [facility] Blood platelet mean volumeOr dered By: Dr. Wagner on 07-31-2022 Platelet mean volume (Bld) [Entitic vol] 9.9 fL 6.2-12.0 [facility] Determination of erythrocyte mean corpuscular volume (MCV)Ordered By: Dr. Wagner on 07-31-2022 MCV (RBC) [Entitic vol] 89.9 fL 81-99 [facility] Hematocrit Auto (Bld) [Volum e fraction]Ordered By: Dr. Wagner on 07-31-2022 Hematocrit (Bld) [Volume fraction] 32.1 % 37-47 [facility] Laboratory - Chemistry and C hemistry - challengeOrdered By: Dr. Wagner on 07-31-2022 CO2 [Moles/Vol] 24.0 mmol/L 21.0-32.0 [facility] Urea nitrogen/Creatinine [Mass ratio] 18.2 mg/mg 10-20 [facility] Laboratory - Hematology and Cell countsOrdered By: Dr. Wagner on 07-31-2022 Erythrocyte distribution width (RBC) [Entitic vol] 54.6 fL 35.1-43.9 [facility] Erythrocyte distribution width (RBC) [Ratio] 16.6 % 11.6-14.6 [facility] Immature granulocytes/100 WBC (Bld) 1.100 % 0.0-0.9 [facility] Comment on above: IG% - Immature Granu locytes (promyelocytes, myelocytes and metamyelocytes) > 1% indicates that a LEFT SHIFT is Present. MCH (RBC) [Entitic mass] 28.0 pg 27.0-32.0 [facility] Nucleated RBC/100 WBC (Bld) [Ratio] 0 % 0-5 [facility] MCHC Auto (RBC) [Mass/Vol]Or dered By: Dr. Wagner on 07-31-2022 MCHC (RBC) [Mass/Vol] 31.2 g/dL 32-36 [facility] No Panel InformationOrdered By: Dr. Wagner on 07-31-2022 Estimated Creatinine Clearance Calc 49.93 ml/min [facility] Estimated GFR (MDRD) Amer 126 mL/min >60 [facility] Comment on above: GFR Calc Estimated GFR (MDRD) Non-Af Amer 104 mL/min >60 [facility] Comment on above: Non- GFR Calc Platelets bldOrdered By: Dr. Wagner on 07-31-2022 Platelets (Bld) [#/Vol] 447 10*3/uL 150-450 [facility] Serum or plasma calcium ana urement (mass/volume)Ordered By: Dr. Wagner on 07-31-2022 Calcium [Mass/Vol] 8.7 mg/dL 8.5-10.1 [facility] Serum or plasma creatinine m easurement (mass/volume)Ordered By: Dr. Wagner on 07-31-2022 Creatinine [Mass/Vol] 0.60 mg/dL 0.55-1.02 [facility] Comment on above: The validity of the calculated GFR & GFRAA in patients over 70 years has not been determined. Clinical correlation is essential. Serum or plasma urea nitroge n measurement (mass/volume)Ordered By: Dr. Wagner on 07-31-2022 Urea nitrogen [Mass/Vol] 11 mg/dL 7-18 [facility] Thin prep Papanicolaou smear with manual screeningOrdered By: Dr. Wagner on 07-31-2022 Thin prep Papanicolaou smear with manual screening 9 5-15 [facility] COVID-19 virus antigen assay Ordered By: Dr. Wagner on 07-03-2022 SARS-CoV-2 (COVID-19) Ag IA.rapid Ql (Resp) [facility] Glucose Glucometer (BldC) [M ass/Vol]on 07-02-2022 Glucose [Mass/Vol] 99 mg/dL 74-106 [facility] Work Phone: Comment on above: MANAGEMENT OF PATIEN T CARE PER NURSING PROTOCOL Basophil percentageon 2021 Chloride [Moles/Vol] 103 mmol/L 98-107 [facility] Work Phone: Glucose [Mass/Vol] 114 mg/dL 74-106 [facility] Work Phone: Comment on above: Fasting Glucose resu lt from 100 to 125 mg/dL suggests IMPAIRED HOMEOSTASIS per A.D.A. criteria. Potassium [Moles/Vol] 3.8 mmol/L 3.5-5.1 [facility] Work Phone: Sodium [Moles/Vol] 136 mmol/L 136-145 [facility] Work Phone: Blood hemoglobin measurement (mass/volume)on 06-30-2022 Hemoglobin (Bld) [Mass/Vol] 9.1 g/dL 12.0-15.0 [facility] Work Phone: Hematocrit Auto (Bld) [Volum e fraction]on 06-30-2022 Hematocrit (Bld) [Volume fraction] 28.8 % 37-47 [facility] Work Phone: Laboratory - Chemistry and C hemistry - challengeon 06-30-2022 CO2 [Moles/Vol] 28.0 mmol/L 21.0-32.0 [facility] Work Phone: Urea nitrogen/Creatinine [Mass ratio] 24.9 mg/mg 10-20 [facility] Work Phone: No Panel Informationon 06-30 Estimated Creatinine Clearance Calc 52.81 ml/min [facility] Work Phone: Estimated GFR (MDRD) Amer 202 mL/min >60 [facility] Work Phone: Comment on above: GFR Calc Estimated GFR (MDRD) Non-Af Amer 167 mL/min >60 [facility] Work Phone: Comment on above: Non- GFR Calc Serum or plasma calcium ana urement (mass/volume)on 06-30-2022 Calcium [Mass/Vol] 7.8 mg/dL 8.5-10.1 [facility] Work Phone: Serum or plasma creatinine m easurement (mass/volume)on 06-30-2022 Creatinine [Mass/Vol] 0.40 mg/dL 0.55-1.02 [facility] Work Phone: Comment on above: The validity of the calculated GFR & GFRAA in patients over 70 years has not been determined. Clinical correlation is essential. Serum or plasma urea nitroge n measurement (mass/volume)on 06-30-2022 Urea nitrogen [Mass/Vol] 10 mg/dL 7-18 [facility] Work Phone: [phone] Thin prep Papanicolaou smear with manual screeningon 06-30-2022 Thin prep Papanicolaou smear with manual screening 5 5-15 [facility] Work Phone: [phone] Absolute lymphocyte counton 06-29-2022 Lymphocytes Auto (Unsp spec) [#/Vol] 2.41 10*3/uL 0.83-4.51 [facility] Work Phone: Basophil percentageon 2021 Basophil percentage Not Reportable [facility] Work Phone: Neutrophils (Bld) [#/Vol] 7.8 10*3/uL 2.0-7.7 [facility] Work Phone: WBC (Bld) [#/Vol] 12.0 10*3/uL 4.4-11.0 [facility] Work Phone: [phone] Blood band neutrophil count as percentage of total leukocytesOrdered By: Dr. Wagner on 06-29-2022 Band form neutrophils/100 WBC (Bld) 2 % 0-5 [facility] Blood eosinophils/100 leukoc ytesOrdered By: Dr. Wagner on 06-29-2022 Eosinophils/100 WBC (Bld) 9 % 0-5 [facility] Blood erythrocytes count (nu mber/volume)on 06-29-2022 RBC (Bld) [#/Vol] 2.73 10*6/uL 4.2-5.4 [facility] Work Phone: [phone] Blood hemoglobin measurement (mass/volume)on 06-29-2022 Hemoglobin (Bld) [Mass/Vol] 7.7 g/dL 12.0-15.0 [facility] Work Phone: Blood lymphocytes/100 leukoc ytesOrdered By: Dr. Wagner on 06-29-2022 Lymphocytes/100 WBC (Bld) 20 % 19-41 [facility] Blood metamyelocytes/100 rylan kocytesOrdered By: Dr. Wagner on 06-29-2022 Metamyelocytes/100 WBC (Bld) 9 % 0-1 [facility] Blood monocytes/100 leukocyt esOrdered By: Dr. Wagner on 06-29-2022 Monocytes/100 WBC (Bld) 6 % 0-10 [facility] Blood platelet adequacy dete ction by light microscopyOrdered By: Dr. Wagner on 06-29-2022 Platelets LM Ql (Bld) MKD INC ADEQ [facility] Blood platelet mean volumeon 06-29-2022 Platelet mean volume (Bld) [Entitic vol] 8.6 fL 6.2-12.0 [facility] Work Phone: Blood segmented neutrophils/ [address]: [address] Wagner on 06-29-2022 Segmented neutrophils/100 WBC (Bld) 52 % 47-70 [facility] Determination of erythrocyte mean corpuscular volume (MCV)on 06-29-2022 MCV (RBC) [Entitic vol] 91.6 fL 81-99 [facility] Work Phone: Glucose Glucometer (dC) [M ass/Vol]on 06-29-2022 Glucose [Mass/Vol] 111 mg/dL 74-106 [facility] Work Phone: Comment on above: MANAGEMENT OF PATIEN T CARE PER NURSING PROTOCOL Hematocrit Auto (Bld) [Volum e fraction]on 06-29-2022 Hematocrit (Bld) [Volume fraction] 25.0 % 37-47 [facility] Work Phone: Laboratory - Hematology and Cell countson 06-29-2022 Erythrocyte distribution width (RBC) [Entitic vol] 63.2 fL 35.1-43.9 [facility] Work Phone: Erythrocyte distribution width (RBC) [Ratio] 19.0 % 11.6-14.6 [facility] Work Phone: MCH (RBC) [Entitic mass] 28.2 pg 27.0-32.0 [facility] Work Phone: Laboratory - Hematology and Cell countsOrdered By: Dr. Wagner on 06-29-2022 Myelocytes/100 WBC (Bld) 2 % 0-0 [facility] MCHC Auto (RBC) [Mass/Vol]on 06-29-2022 MCHC (RBC) [Mass/Vol] 30.8 g/dL 32-36 [facility] Work Phone: [phone] Platelets bldon 06-29-2022 Platelets (Bld) [#/Vol] 728 10*3/uL 150-450 [facility] Work Phone: [phone] RBC morphologyOrdered By: Dr Abdelrahman Wagner on 06-29-2022 RBC morphology finding Nom (Bld) NORM C+C NORMAL NORM C&C [facility] Review by pathologiston 06-19 Pathologist review Marc (Unsp spec) [Interp] Misa cuevas [facility] Work Phone: Review by pathologistOrdered By: Dr. Wagner on 06-29-2022 Pathologist review Marc (Unsp spec) [Interp] Reviewed [facility] Comment on above: Previous reported re sult: Misa cuevas Edited by: RGOOD on 06/30/22:1346Leukocytosis with Neutrophilic left shift. Normocytic anemia.Thrombocytosis.Clinical correlation necessary.Basim Jay M.D. 06/30/22 AMENDED REPORT 06/30/22 1346 PATH REV previously reported as: Misa cuevas Total cell countOrdered By: Dr. Wagner on 06-29-2022 Cells counted Molgen (Bld/Tiss) [#] 100 MANUAL DIFF [facility] Basophil percentageon 2021 Basophils/100 WBC (Bld) 0.7 % 0-1 [facility] Work Phone: Eosinophils/100 WBC (Bld) 7.0 % 0-5 [facility] Work Phone: Chloride [Moles/Vol] 104 mmol/L 98-107 [facility] Work Phone: Glucose [Mass/Vol] 117 mg/dL 74-106 [facility] Work Phone: Comment on above: Fasting Glucose resu lt from 100 to 125 mg/dL suggests IMPAIRED HOMEOSTASIS per A.D.A. criteria. Potassium [Moles/Vol] 3.3 mmol/L 3.5-5.1 [facility] Work Phone: Sodium [Moles/Vol] 136 mmol/L 136-145 [facility] Work Phone: Blood lymphocytes/100 leukoc yteson 06-28-2022 Lymphocytes/100 WBC (Bld) 12.9 % 19-41 [facility] Work Phone: Blood manual differential co mment interpretation (narrative result)Ordered By: Dr. Wagner on 06-28-2022 Manual differential comment Marc (Bld) [Interp] SCANNED [facility] Blood monocytes/100 leukocyt eson 06-28-2022 Monocytes/100 WBC (Bld) 8.1 % 0-10 [facility] Work Phone: Laboratory - Chemistry and C hemistry - challengeon 06-28-2022 CO2 [Moles/Vol] 26.0 mmol/L 21.0-32.0 [facility] Work Phone: Urea nitrogen/Creatinine [Mass ratio] 20.1 mg/mg 10-20 [facility] Work Phone: Laboratory - Hematology and Cell countson 06-28-2022 Immature granulocytes/100 WBC (Bld) 3.900 % 0.0-0.9 [facility] Work Phone: Comment on above: IG% - Immature Granu locytes (promyelocytes, myelocytes and metamyelocytes) > 1% indicates that a LEFT SHIFT is Present. Nucleated RBC/100 WBC (Bld) [Ratio] 0 % 0-5 [facility] Work Phone: No Panel Informationon 06-28 Estimated Creatinine Clearance Calc 52.81 ml/min [facility] Work Phone: Estimated GFR (MDRD) Amer 285 mL/min >60 [facility] Work Phone: Comment on above: GFR Calc Estimated GFR (MDRD) Non-Af Amer 235 mL/min >60 [facility] Work Phone: Comment on above: Non- GFR Calc Serum or plasma calcium ana urement (mass/volume)on 06-28-2022 Calcium [Mass/Vol] 7.5 mg/dL 8.5-10.1 [facility] Work Phone: Serum or plasma creatinine m easurement (mass/volume)on 06-28-2022 Creatinine [Mass/Vol] 0.30 mg/dL 0.55-1.02 [facility] Work Phone: Comment on above: The validity of the calculated GFR & GFRAA in patients over 70 years has not been determined. Clinical correlation is essential. Serum or plasma urea nitroge n measurement (mass/volume)on 06-28-2022 Urea nitrogen [Mass/Vol] 6 mg/dL 7-18 [facility] Work Phone: Thin prep Papanicolaou smear with manual screeningon 06-28-2022 Thin prep Papanicolaou smear with manual screening 6 5-15 [facility] Work Phone: Cytology report of Body flui d Cyto stainOrdered By: Dr. Browne on 06-26-2022 Cytology report Cyto stain Doc (Body fld) SEE PATHOLOGY REPORT [facility] Comment on above: Specimen submitted t o Anatomical Pathology Department for testing. Laboratory - Hematology and Cell countsOrdered By: Dr. Wagner on 06-26-2022 Anisocytosis Ql (Bld) 2+ [facility] No Panel InformationOrdered By: Dr. Wagner on 06-26-2022 Atypical Lymphocytes 1+ % [facility] Basophil percentageon 2021 Basophil percentage >100 SEEN /hpf 0-5 [facility] Work Phone: Bilirubin Test strip Ql (U)o n 06-25-2022 Bilirubin Ql (U) Negative Negative [facility] Work Phone: Ketones Test strip Ql (U)on 06-25-2022 Ketones Ql (U) 5 mg/dl Negative [facility] Work Phone: Mucus LM Ql (Urine sed)on Mucus Ql (Urine sed) 0 SEEN /hpf [facility] Work Phone: Nitrite Test strip Ql (U)on 06-25-2022 Nitrite Ql (U) Positive Negative [facility] Work Phone: [phone] Protein Test strip Ql (U)on 06-25-2022 Protein Ql (U) 100 mg/dl Negative [facility] Work Phone: [phone] Squamous epithelial cells de tection in urine sediment by light microscopyon 06-25-2022 Epithelial cells.squamous LM Ql (Urine sed) 5-10 SEEN /hpf 5-10 [facility] Work Phone: Urine blood detectionon -0 RBC Ql (U) 250 /ul Negative [facility] Work Phone: RBC Ql (U) > 100 SEEN /hpf 0-5 [facility] Work Phone: [phone] Urine clarityon 06-25-2022 Clarity (U) Turbid Clear [facility] Work Phone: [phone] Urine color determinationon 06-25-2022 Color (U) Red Yellow [facility] Work Phone: [phone] Urine glucose detectionon Glucose Ql (U) Normal mg/dl Normal [facility] Work Phone: [phone] Urine leukocyte esterase det ection by dipstickon 06-25-2022 Leukocyte esterase Test strip Ql (U) 500 /ul Negative [facility] Work Phone: [phone] Urine pHon 06-25-2022 pH (U) 6.5 [pH] 5.0 - 8.0 [facility] Work Phone: [phone] Urine sediment bacteria coun t by microscopy (number/high power field)on 06-25-2022 Bacteria LM.HPF (Urine sed) [#/Area] 4 /[HPF] None Seen [facility] Work Phone: [phone] Urine specific gravity measu rementon 06-25-2022 Specific gravity (U) [Rel density] 1.010 1.002-1.03 0 [facility] Work Phone: [phone] Urobilinogen Auto test strip Ql (U)on 06-25-2022 Urobilinogen Ql (U) Normal mg/dl Normal [facility] Work Phone: Absolute lymphocyte counton 06-18-2022 Lymphocytes Auto (Unsp spec) [#/Vol] 1.20 10*3/uL 0.83-4.51 [facility] Work Phone: Basophil percentageon 2021 Basophil percentage 2.6 mg/dL 2.5-4.9 [facility] Work Phone: Basophils/100 WBC (Bld) 0.3 % 0-1 [facility] Work Phone: Bilirubin [Mass/Vol] 0.20 mg/dL 0.20-1.00 [facility] Work Phone: Comment on above: For patients on eltr ombopag therapy, use of Dimension [place] TBIL is not recommended. Chloride [Moles/Vol] 104 mmol/L 98-107 [facility] Work Phone: Eosinophils/100 WBC (Bld) 4.6 % 0-5 [facility] Work Phone: Glucose [Mass/Vol] 93 mg/dL 74-106 [facility] Work Phone: Neutrophils (Bld) [#/Vol] 6.1 10*3/uL 2.0-7.7 [facility] Work Phone: Neutrophils/100 WBC (Bld) 71.3 % 47-70 [facility] Work Phone: Potassium [Moles/Vol] 4.2 mmol/L 3.5-5.1 [facility] Work Phone: Protein [Mass/Vol] 4.8 g/dL 6.4-8.2 [facility] Work Phone: Sodium [Moles/Vol] 136 mmol/L 136-145 [facility] Work Phone: WBC (Bld) [#/Vol] 8.6 10*3/uL 4.4-11.0 [facility] Work Phone: Blood erythrocytes count (nu mber/volume)on 06-18-2022 RBC (Bld) [#/Vol] 3.05 10*6/uL 4.2-5.4 [facility] Work Phone: Blood hemoglobin measurement (mass/volume)on 06-18-2022 Hemoglobin (Bld) [Mass/Vol] 8.5 g/dL 12.0-15.0 [facility] Work Phone: Blood lymphocytes/100 leukoc yteson 06-18-2022 Lymphocytes/100 WBC (Bld) 13.9 % 19-41 [facility] Work Phone: [phone] Blood monocytes/100 leukocyt eson 06-18-2022 Monocytes/100 WBC (Bld) 6.7 % 0-10 [facility] Work Phone: Blood platelet mean volumeon 06-18-2022 Platelet mean volume (Bld) [Entitic vol] 9.3 fL 6.2-12.0 [facility] Work Phone: Determination of erythrocyte mean corpuscular volume (MCV)on 06-18-2022 MCV (RBC) [Entitic vol] 88.5 fL 81-99 [facility] Work Phone: Glucose Glucometer (BldC) [M ass/Vol]on 06-18-2022 Glucose [Mass/Vol] 105 mg/dL 74-106 [facility] Work Phone: Comment on above: MANAGEMENT OF PATIEN T CARE PER NURSING PROTOCOL Hematocrit Auto (Bld) [Volum e fraction]on 06-18-2022 Hematocrit (Bld) [Volume fraction] 27.0 % 37-47 [facility] Work Phone: Laboratory - Chemistry and C hemistry - challengeon 06-18-2022 ALP [Catalytic activity/Vol] 89 U/L 45-117 [facility] Work Phone: ALT [Catalytic activity/Vol] 19 U/L 13-56 [facility] Work Phone: CO2 [Moles/Vol] 26.0 mmol/L 21.0-32.0 [facility] Work Phone: [phone] Globulin (S) [Mass/Vol] 3.8 g/dL 2.2-4.2 [facility] Work Phone: [phone] Magnesium [Mass/Vol] 2.1 mg/dL 1.6-2.6 [facility] Work Phone: Urea nitrogen/Creatinine [Mass ratio] 43.7 mg/mg 10-20 [facility] Work Phone: [phone] Laboratory - Hematology and Cell countson 06-18-2022 Erythrocyte distribution width (RBC) [Entitic vol] 59.3 fL 35.1-43.9 [facility] Work Phone: [phone] Erythrocyte distribution width (RBC) [Ratio] 18.1 % 11.6-14.6 [facility] Work Phone: Immature granulocytes/100 WBC (Bld) 3.200 % 0.0-0.9 [facility] Work Phone: Comment on above: IG% - Immature Granu locytes (promyelocytes, myelocytes and metamyelocytes) > 1% indicates that a LEFT SHIFT is Present. MCH (RBC) [Entitic mass] 27.9 pg 27.0-32.0 [facility] Work Phone: Nucleated RBC/100 WBC (Bld) [Ratio] 0 % 0-5 [facility] Work Phone: MCHC Auto (RBC) [Mass/Vol]on 06-18-2022 MCHC (RBC) [Mass/Vol] 31.5 g/dL 32-36 [facility] Work Phone: No Panel Informationon 06-18 Estimated Creatinine Clearance Calc 52.81 ml/min [facility] Work Phone: Estimated GFR (MDRD) Amer 500 mL/min >60 [facility] Work Phone: Comment on above: GFR Calc Estimated GFR (MDRD) Non-Af Amer 413 mL/min >60 [facility] Work Phone: Comment on above: Non- GFR Calc Platelets bldon 06-18-2022 Platelets (Bld) [#/Vol] 409 10*3/uL 150-450 [facility] Work Phone: Serum or plasma albumin ana urement (mass/volume)on 06-18-2022 Albumin [Mass/Vol] 1.0 g/dL 3.2-5.0 [facility] Work Phone: Serum or plasma albumin/glob ulin mass ratioon 06-18-2022 Albumin/Globulin [Mass ratio] 0.3 {ratio} 0.9-2.4 [facility] Work Phone: Serum or plasma calcium ana urement (mass/volume)on 06-18-2022 Calcium [Mass/Vol] 7.0 mg/dL 8.5-10.1 [facility] Work Phone: Serum or plasma creatinine m easurement (mass/volume)on 06-18-2022 Creatinine [Mass/Vol] 0.18 mg/dL 0.55-1.02 [facility] Work Phone: Comment on above: The validity of the calculated GFR & GFRAA in patients over 70 years has not been determined. Clinical correlation is essential. Serum or plasma urea nitroge n measurement (mass/volume)on 06-18-2022 Urea nitrogen [Mass/Vol] 8 mg/dL 7-18 [facility] Work Phone: Thin prep Papanicolaou smear with manual screeningon 06-18-2022 Thin prep Papanicolaou smear with manual screening 16 U/L 15-37 [facility] Work Phone: Thin prep Papanicolaou smear with manual screening 6 5-15 [facility] Work Phone: Basophil percentageon 2021 Basophil percentage 5-10 SEEN /hpf 0-5 [facility] Work Phone: Bilirubin Test strip Ql (U)o n 06-13-2022 Bilirubin Ql (U) Negative Negative [facility] Work Phone: Ketones Test strip Ql (U)on 06-13-2022 Ketones Ql (U) Negative Negative [facility] Work Phone: Mucus LM Ql (Urine sed)on Mucus Ql (Urine sed) 0 SEEN /hpf [facility] Work Phone: Nitrite Test strip Ql (U)on 06-13-2022 Nitrite Ql (U) Negative Negative [facility] Work Phone: Protein Test strip Ql (U)on 06-13-2022 Protein Ql (U) 15 mg/dl Negative [facility] Work Phone: Squamous epithelial cells de tection in urine sediment by light microscopyon 06-13-2022 Epithelial cells.squamous LM Ql (Urine sed) 0 SEEN /hpf 5-10 [facility] Work Phone: Urine blood detectionon 05-20 RBC Ql (U) 50 /ul Negative [facility] Work Phone: RBC Ql (U) 0 SEEN /hpf 0-5 [facility] Work Phone: Urine clarityon 06-13-2022 Clarity (U) Clear Clear [facility] Work Phone: Urine color determinationon 06-13-2022 Color (U) Yellow Yellow [facility] Work Phone: Urine glucose detectionon Glucose Ql (U) Normal mg/dl Normal [facility] Work Phone: Urine leukocyte esterase det ection by dipstickon 06-13-2022 Leukocyte esterase Test strip Ql (U) 25 /ul Negative [facility] Work Phone: Urine pHon 06-13-2022 pH (U) 6.0 [pH] 5.0 - 8.0 [facility] Work Phone: Urine sediment bacteria coun t by microscopy (number/high power field)on 06-13-2022 Bacteria LM.HPF (Urine sed) [#/Area] 0 /[HPF] None Seen [facility] Work Phone: Urine sediment yeast count b y microscopy (number/high powered field)on 06-13-2022 Yeast LM.HPF (Urine sed) [#/Area] 1 /[HPF] None Seen [facility] Work Phone: Urine specific gravity measu rementon 06-13-2022 Specific gravity (U) [Rel density] 1.015 1.002-1.03 0 [facility] Work Phone: Urobilinogen Auto test strip Ql (U)on 06-13-2022 Urobilinogen Ql (U) Normal mg/dl Normal [facility] Work Phone: Blood eosinophils/100 leukoc yteson 06-09-2022 Eosinophils/100 WBC (Bld) 11 % 0-5 [facility] Work Phone: Blood lymphocytes/100 leukoc yteson 06-09-2022 Lymphocytes/100 WBC (Bld) 12 % 19-41 [facility] Work Phone: Blood metamyelocytes/100 rylan kocyteson 06-09-2022 Metamyelocytes/100 WBC (Bld) 3 % 0-1 [facility] Work Phone: Blood monocytes/100 leukocyt eson 06-09-2022 Monocytes/100 WBC (Bld) 1 % 0-10 [facility] Work Phone: Blood platelet adequacy dete ction by light microscopyon 06-09-2022 Platelets LM Ql (Bld) ADEQUATE ADEQ [facility] Work Phone: Blood segmented neutrophils/ 100 leukocyteson 06-09-2022 Segmented neutrophils/100 WBC (Bld) 72 % 47-70 [facility] Work Phone: Laboratory - Hematology and Cell countson 06-09-2022 Anisocytosis Ql (Bld) 2+ [facility] Work Phone: Myelocytes/100 WBC (Bld) 1 % 0-0 [facility] Work Phone: Review by pathologiston 05-20 Pathologist review Marc (Unsp spec) [Interp] Reviewed [facility] Work Phone: Comment on above: Previous reported re sult: Misa cuevas Edited by: SUZANNE on 06/10/22:911Neutrophilic leukocytosis with left shift. Normocytic anemia.Clinical correlation necessary.Basim Jay M.D. 06/10/22 AMENDED REPORT 06/10/22911 PATH REV previously reported as: February mason Total cell counton Cells counted Molgen (Bld/Tiss) [#] 100 MANUAL DIFF [facility] Work Phone: Blood band neutrophil count as percentage of total leukocyteson 06-08-2022 Band form neutrophils/100 WBC (Bld) 7 % 0-5 [facility] Work Phone: Blood promyelocytes/100 leuk ocyteson 06-08-2022 Promyelocytes/100 WBC (Bld) 1 % 0-0 [facility] Work Phone: No Panel Informationon 06-08 Miscellaneous Test See comment [facility]: Comment on above: TEST RESULT LIMITSHi stoplasma Gal'barrera Ag Ser <0.5 ng/mL < 0.5This test was developed and its performance characteristicsdetermined by [employer]. It has not been cleared or approvedby the U.S. Food and Drug Administration. TESTING PERFORMED AT [facility]. ORIGINAL REPORT ON FILE IN LAB CONTAINS ADDITIONAL TEST SITE INFORMATION. Serum Aspergillus flavus ant ibody detection by immunodiffusionon 06-08-2022 A. flavus Ab Immune diff Ql (S) Negative Neg:<1:1 [facility] Work Phone: Serum Aspergillus fumigatus antibody detection by immunodiffusionon 06-08-2022 A. fumigatus Ab Immune diff Ql (S) Negative Neg:<1:1 [facility] Work Phone: Serum Aspergillus niger anti body detection by immunodiffusionon 06-08-2022 A. niger Ab Immune diff Ql (S) Negative Neg:<1:1 [facility] Work Phone: Comment on above: Performed at: [address] [id number] Director: Georgi Rollins MD, Phone: [phone] Serum beta 2 glycoprotein 1 IgA antibody detectionon 06-08-2022 Beta 2 glycoprotein 1 IgA Ql (S) <9 0-25 [facility] Work Phone: Comment on above: Result [...] glycoprotein 1 IgG Ql (S) <9 0-20 [facility] Work Phone: Comment on above: Result [...] glycoprotein 1 IgM Ql (S) <9 0-32 [facility] Work Phone: Comment on above: Result Units: GPI Ig M unitsThe reference interval reflects a 3SD or 99th percentileinterval, which is thought to represent a potentiallyclinically significant result in accordance with theInternational Consensus Statement on the classificationcriteria for definitive antiphospholipid syndrome (APS). JThromb Haem 2006;4:295-306.Performed at: - [address] [id number] Director: Georgi Rollins MD, Phone: [phone] Serum or plasma cortisol isiah surement (mass/volume)on 06-08-2022 Cortisol [Mass/Vol] 45.90 ug/dL 3.44-22.45 [facility] Work Phone: Comment on above: Adult (AM) 5.27 - 22 .45 ug/dL Adult (PM) 3.44 - 16.76 ug/dLPlease note revised CORTISOL reference range effective 2019. INR in Blood by Coagulation assayon 06-07-2022 INR Coag (Bld) [Relative time] 1.2 {INR} [facility] Work Phone: Laboratory - Coagulationon 0 06-07-2022 PT Coag (PPP) [Time] 15.0 s 11.7-14.9 [facility] Work Phone: RBC morphologyon 06-07-2022 RBC morphology finding Nom (Bld) NORM C+C NORMAL NORM C&C [facility] Work Phone: Absolute lymphocyte counton 06-06-2022 Lymphocytes Auto (Unsp spec) [#/Vol] 1.98 10*3/uL 0.83-4.51 [facility] Work Phone: Assessment of wrist artery p atency prior to arterial punctureon 06-06-2022 Arterial patency Wrist artery --pre arterial puncture Positive [facility] Work Phone: Base excesson 06-06-2022 Base excess Calc (BldV) [Moles/Vol] 0 mmol/L -2-2 [facility] Work Phone: Basophil percentageon 2021 Basophil percentage 0-5 SEEN /hpf 0-5 [facility] Work Phone: Basophil percentage 22.4 mmol/L 22-26 [facility] Work Phone: Basophils/100 WBC (Bld) 99 % 95-99 [facility] Work Phone: Basophils/100 WBC (Bld) 0.2 % 0-1 [facility] Work Phone: Bilirubin [Mass/Vol] 0.40 mg/dL 0.20-1.00 [facility] Work Phone: [phone] Comment on above: For patients on eltr ombopag therapy, use of Dimension [place] TBIL is not recommended. Chloride [Moles/Vol] 86 mmol/L 98-107 [facility] Work Phone: Eosinophils/100 WBC (Bld) 1.1 % 0-5 [facility] Work Phone: Glucose [Mass/Vol] 200 mg/dL 74-106 [facility] Work Phone: [phone] Comment on above: Glucose result great er than or equal to 200 mg/dLsuggests DIABETES MELLITUS per A.D.A. criteria. Lactate [Moles/Vol] 1.5 mmol/L 0.4-2.0 [facility] Work Phone: Neutrophils (Bld) [#/Vol] 21.2 10*3/uL 2.0-7.7 [facility] Work Phone: Neutrophils/100 WBC (Bld) 85.3 % 47-70 [facility] Work Phone: Potassium [Moles/Vol] 5.1 mmol/L 3.5-5.1 [facility] Work Phone: Protein [Mass/Vol] 6.4 g/dL 6.4-8.2 [facility] Work Phone: Sodium [Moles/Vol] 120 mmol/L 136-145 [facility] Work Phone: WBC (Bld) [#/Vol] 24.9 10*3/uL 4.4-11.0 [facility] Work Phone: [phone] Bilirubin Test strip Ql (U)o n 06-06-2022 Bilirubin Ql (U) Negative Negative [facility] Work Phone: Blood erythrocytes count (nu mber/volume)on 06-06-2022 RBC (Bld) [#/Vol] 2.90 10*6/uL 4.2-5.4 [facility] Work Phone: Blood hemoglobin measurement (mass/volume)on 06-06-2022 Hemoglobin (Bld) [Mass/Vol] 6.1 g/dL 12.0-15.0 [facility] Work Phone: Blood lymphocytes/100 leukoc yteson 06-06-2022 Lymphocytes/100 WBC (Bld) 8.0 % 19-41 [facility] Work Phone: Blood manual differential co mment interpretation (narrative result)on 06-06-2022 Manual differential comment Marc (Bld) [Interp] SCANNED [facility] Work Phone: Comment on above: NEUTROPHILIA NOTED Blood monocytes/100 leukocyt eson 06-06-2022 Monocytes/100 WBC (Bld) 2.3 % 0-10 [facility] Work Phone: Blood platelet mean volumeon 06-06-2022 Platelet mean volume (Bld) [Entitic vol] 10.2 fL 6.2-12.0 [facility] Work Phone: CO2 (BldA) [Partial pressure ]on 06-06-2022 CO2 (Bld) [Partial pressure] 26.3 mm[Hg] 35-45 [facility] Work Phone: Determination of erythrocyte mean corpuscular volume (MCV)on 06-06-2022 MCV (RBC) [Entitic vol] 88.3 fL 81-99 [facility] Work Phone: Hematocrit Auto (Bld) [Volum e fraction]on 06-06-2022 Hematocrit (Bld) [Volume fraction] 18.8 % 37-47 [facility] Work Phone: Ketones Test strip Ql (U)on 06-06-2022 Ketones Ql (U) 5 mg/dl Negative [facility] Work Phone: [phone] Laboratory - Chemistry and C hemistry - challengeon 06-06-2022 ALP [Catalytic activity/Vol] 124 U/L 45-117 [facility] Work Phone: ALT [Catalytic activity/Vol] 39 U/L 13-56 [facility] Work Phone: [phone] CO2 [Moles/Vol] 24.0 mmol/L 21.0-32.0 [facility] Work Phone: [phone] Globulin (S) [Mass/Vol] 4.6 g/dL 2.2-4.2 [facility] Work Phone: [phone] Urea nitrogen/Creatinine [Mass ratio] 57.8 mg/mg 10-20 [facility] Work Phone: [phone] Laboratory - Hematology and Cell countson 06-06-2022 Erythrocyte distribution width (RBC) [Entitic vol] 46.5 fL 35.1-43.9 [facility] Work Phone: [phone] Erythrocyte distribution width (RBC) [Ratio] 14.6 % 11.6-14.6 [facility] Work Phone: [phone] Immature granulocytes/100 WBC (Bld) 3.100 % 0.0-0.9 [facility] Work Phone: [phone] Comment on above: IG% - Immature Granu locytes (promyelocytes, myelocytes and metamyelocytes) > 1% indicates that a LEFT SHIFT is Present. MCH (RBC) [Entitic mass] 29.3 pg 27.0-32.0 [facility] Work Phone: [phone] Nucleated RBC/100 WBC (Bld) [Ratio] 0.1 % 0-5 [facility] Work Phone: [phone] MCHC Auto (RBC) [Mass/Vol]on 06-06-2022 MCHC (RBC) [Mass/Vol] 33.2 g/dL 32-36 [facility] Work Phone: [phone] Mucus LM Ql (Urine sed)on Mucus Ql (Urine sed) 0 SEEN /hpf [facility] Work Phone: Nitrite Test strip Ql (U)on 06-06-2022 Nitrite Ql (U) Negative Negative [facility] Work Phone: No Panel Informationon 06-06 Blood Gas Liter Flow 15.0 /min [facility] Work Phone: Blood Gas Sample Site L Radial [facility] Work Phone: Blood Gas Specimen Type [facility]: Blood Gas Total CO2 23 mmol/L [facility] Work Phone: Oxygen Delivery Device NRB [facility] Work Phone: Estimated Creatinine Clearance Calc 45.52 ml/min [facility] Work Phone: Estimated GFR (MDRD) Amer 59 mL/min >60 [facility] Work Phone: Comment on above: GFR Calc Estimated GFR (MDRD) Non-Af Amer 49 mL/min >60 [facility] Work Phone: Comment on above: Non- GFR Calc Troponin I High Sensitivity 17 pg/mL 3.0-54.0 [facility] Work Phone: Comment on above: Please Note: [place] t Units and Gender Specific Reference Ranges. For more information see Policy Stat Procedure [place] High Sensitivity Troponin (TNIH) and attachments. Oxygen (BldA) [Partial press ure]on 06-06-2022 Oxygen (Bld) [Partial pressure] 115 mmHG 75-100 [facility] Work Phone: Platelets bldon 06-06-2022 Platelets (Bld) [#/Vol] 490 10*3/uL 150-450 [facility] Work Phone: Protein Test strip Ql (U)on 06-06-2022 Protein Ql (U) 30 mg/dl Negative [facility] Work Phone: Serum or plasma albumin ana urement (mass/volume)on 06-06-2022 Albumin [Mass/Vol] 1.8 g/dL 3.2-5.0 [facility] Work Phone: Serum or plasma albumin/glob ulin mass ratioon 06-06-2022 Albumin/Globulin [Mass ratio] 0.4 {ratio} 0.9-2.4 [facility] Work Phone: Serum or plasma calcium ana urement (mass/volume)on 06-06-2022 Calcium [Mass/Vol] 8.9 mg/dL 8.5-10.1 [facility] Work Phone: Serum or plasma creatinine m easurement (mass/volume)on 06-06-2022 Creatinine [Mass/Vol] 1.16 mg/dL 0.55-1.02 [facility] Work Phone: Comment on above: The validity of the calculated GFR & GFRAA in patients over 70 years has not been determined. Clinical correlation is essential. Serum or plasma urea nitroge n measurement (mass/volume)on 06-06-2022 Urea nitrogen [Mass/Vol] 67 mg/dL 7-18 [facility] Work Phone: Squamous epithelial cells de tection in urine sediment by light microscopyon 06-06-2022 Epithelial cells.squamous LM Ql (Urine sed) 0 SEEN /hpf 5-10 [facility] Work Phone: Thin prep Papanicolaou smear with manual screeningon 06-06-2022 Thin prep Papanicolaou smear with manual screening 33 U/L 15-37 [facility] Work Phone: Thin prep Papanicolaou smear with manual screening 10 5-15 [facility] Work Phone: Urine blood detectionon 05-19 RBC Ql (U) 250 /ul Negative [facility] Work Phone: RBC Ql (U) 50-100 SEEN /hpf 0-5 [facility] Work Phone: Urine clarityon 06-06-2022 Clarity (U) Sl. Cloudy Clear [facility] Work Phone: Urine color determinationon 08-19-2022 Color (U) Yellow Yellow [facility] Work Phone: [phone] Urine glucose detectionon Glucose Ql (U) 50 mg/dl Normal [facility] Work Phone: Urine leukocyte esterase det ection by dipstickon 06-06-2022 Leukocyte esterase Test strip Ql (U) 25 /ul Negative [facility] Work Phone: Urine pHon 06-06-2022 pH (U) 6.0 [pH] 5.0 - 8.0 [facility] Work Phone: Urine sediment bacteria coun t by microscopy (number/high power field)on 06-06-2022 Bacteria LM.HPF (Urine sed) [#/Area] RARE /hpf None Seen [facility] Work Phone: [phone] Urine specific gravity measu rementon 06-06-2022 Specific gravity (U) [Rel density] 1.010 1.002-1.03 0 [facility] Work Phone: Urobilinogen Auto test strip Ql (U)on 06-06-2022 Urobilinogen Ql (U) Normal mg/dl Normal [facility] Work Phone: [phone] pH measurementon 06-06-2022 pH (Unsp spec) 7.54 [pH] 7.35-7.45 [facility] Work Phone: [phone] Absolute lymphocyte counton 06-03-2022 Lymphocytes Auto (Unsp spec) [#/Vol] 0.94 10*3/uL 0.83-4.51 [facility] Work Phone: Basophil percentageon 2021 Basophils/100 WBC (Bld) 0.2 % 0-1 [facility] Work Phone: Chloride [Moles/Vol] 86 mmol/L 98-107 [facility] Work Phone: Eosinophils/100 WBC (Bld) 0.3 % 0-5 [facility] Work Phone: [phone] Glucose [Mass/Vol] 217 mg/dL 74-106 [facility] Work Phone: Comment on above: Glucose result great er than or equal to 200 mg/dLsuggests DIABETES MELLITUS per A.D.A. criteria. Lactate [Moles/Vol] 2.1 mmol/L 0.4-2.0 [facility] Work Phone: Comment on above: Critical Result(s) C alled at: 14:54:19 06/03/2022 by: Claudette Oliveros to Sherrie. Results read back by same. Neutrophils (Bld) [#/Vol] 22.3 10*3/uL 2.0-7.7 [facility] Work Phone: Neutrophils/100 WBC (Bld) 92.6 % 47-70 [facility] Work Phone: Potassium [Moles/Vol] 3.6 mmol/L 3.5-5.1 [facility] Work Phone: Sodium [Moles/Vol] 125 mmol/L 136-145 [facility] Work Phone: WBC (Bld) [#/Vol] 24.1 10*3/uL 4.4-11.0 [facility] Work Phone: Blood erythrocytes count (nu mber/volume)on 06-03-2022 RBC (Bld) [#/Vol] 3.19 10*6/uL 4.2-5.4 [facility] Work Phone: Blood hemoglobin measurement (mass/volume)on 06-03-2022 Hemoglobin (Bld) [Mass/Vol] 9.5 g/dL 12.0-15.0 [facility] Work Phone: Blood lymphocytes/100 leukoc yteson 06-03-2022 Lymphocytes/100 WBC (Bld) 3.9 % 19-41 [facility] Work Phone: Blood manual differential co mment interpretation (narrative result)on 06-03-2022 Manual differential comment Marc (Bld) [Interp] COMMENT [facility] Work Phone: Comment on above: NEUTROPHILIA. Blood monocytes/100 leukocyt eson 06-03-2022 Monocytes/100 WBC (Bld) 2.0 % 0-10 [facility] Work Phone: Blood platelet mean volumeon 06-03-2022 Platelet mean volume (Bld) [Entitic vol] 10.7 fL 6.2-12.0 [facility] Work Phone: Determination of erythrocyte mean corpuscular volume (MCV)on 06-03-2022 MCV (RBC) [Entitic vol] 89.3 fL 81-99 [facility] Work Phone: [phone] Hematocrit Auto (Bld) [Volum e fraction]on 06-03-2022 Hematocrit (Bld) [Volume fraction] 28.5 % 37-47 [facility] Work Phone: Laboratory - Chemistry and C hemistry - challengeon 06-03-2022 CO2 [Moles/Vol] 27.0 mmol/L 21.0-32.0 [facility] Work Phone: [phone] Natriuretic peptide B (Bld) [Mass/Vol] 16.2 pg/mL 0-100 [facility] Work Phone: [phone] Urea nitrogen/Creatinine [Mass ratio] 34.9 mg/mg 10-20 [facility] Work Phone: Laboratory - Hematology and Cell countson 06-03-2022 Erythrocyte distribution width (RBC) [Entitic vol] 46.7 fL 35.1-43.9 [facility]: [phone] Erythrocyte distribution width (RBC) [Ratio] 14.5 % 11.6-14.6 [facility] Work Phone: [phone] Immature granulocytes/100 WBC (Bld) 1.000 % 0.0-0.9 [facility] Work Phone: Comment on above: IG% - Immature Granu locytes (promyelocytes, myelocytes and metamyelocytes) > 1% indicates that a LEFT SHIFT is Present. MCH (RBC) [Entitic mass] 29.8 pg 27.0-32.0 [facility] Work Phone: Nucleated RBC/100 WBC (Bld) [Ratio] 0 % 0-5 [facility] Work Phone: MCHC Auto (RBC) [Mass/Vol]on 06-03-2022 MCHC (RBC) [Mass/Vol] 33.3 g/dL 32-36 [facility] Work Phone: No Panel Informationon 06-03 Estimated Creatinine Clearance Calc 57.40 ml/min [facility] Work Phone: Estimated GFR (MDRD) Amer 78 mL/min >60 [facility] Work Phone: Comment on above: GFR Calc Estimated GFR (MDRD) Non-Af Amer 64 mL/min >60 [facility] Work Phone: Comment on above: Non- GFR Calc Troponin I High Sensitivity 10 pg/mL 3.0-54.0 [facility] Work Phone: Comment on above: Please Note: [place] t Units and Gender Specific Reference Ranges. For more information see Policy Stat Procedure [place] High Sensitivity Troponin (TNIH) and attachments. Platelets bldon 06-03-2022 Platelets (Bld) [#/Vol] 462 10*3/uL 150-450 [facility] Work Phone: Serum or plasma calcium ana urement (mass/volume)on 06-03-2022 Calcium [Mass/Vol] 8.3 mg/dL 8.5-10.1 [facility] Work Phone: Serum or plasma creatinine m easurement (mass/volume)on 06-03-2022 Creatinine [Mass/Vol] 0.92 mg/dL 0.55-1.02 [facility] Work Phone: Comment on above: The validity of the calculated GFR & GFRAA in patients over 70 years has not been determined. Clinical correlation is essential. Serum or plasma urea nitroge n measurement (mass/volume)on 06-03-2022 Urea nitrogen [Mass/Vol] 32 mg/dL 7-18 [facility] Work Phone: Thin prep Papanicolaou smear with manual screeningon 06-03-2022 Thin prep Papanicolaou smear with manual screening 12 5-15 [facility] Work Phone: [phone] Absolute lymphocyte counton 05-31-2022 Lymphocytes Auto (Unsp spec) [#/Vol] 1.09 10*3/uL 0.83-4.51 [facility] Work Phone: Basophil percentageon 2021 Basophils/100 WBC (Bld) 0.2 % 0-1 [facility] Work Phone: Chloride [Moles/Vol] 91 mmol/L 98-107 [facility] Work Phone: Eosinophils/100 WBC (Bld) 0.1 % 0-5 [facility] Work Phone: Glucose [Mass/Vol] 197 mg/dL 74-106 [facility] Work Phone: [phone] Comment on above: Fasting Glucose resu lt greater than or equal to 126 mg/dL suggests DIABETES MELLITUS per A.D.A. criteria. Neutrophils (Bld) [#/Vol] 30.2 10*3/uL 2.0-7.7 [facility] Work Phone: Neutrophils/100 WBC (Bld) 92.2 % 47-70 [facility] Work Phone: Potassium [Moles/Vol] 4.0 mmol/L 3.5-5.1 [facility] Work Phone: Sodium [Moles/Vol] 128 mmol/L 136-145 [facility] Work Phone: WBC (Bld) [#/Vol] 32.8 10*3/uL 4.4-11.0 [facility] Work Phone: [phone] Comment on above: RESULTS CALLED TO Santi SANDY RN PCU 05/31/22 0801 Iman Crowe.REPORT READ BACK BY SAME. Blood erythrocytes count (nu mber/volume)on 05-31-2022 RBC (Bld) [#/Vol] 3.62 10*6/uL 4.2-5.4 [facility]: Blood hemoglobin measurement (mass/volume)on 05-31-2022 Hemoglobin (Bld) [Mass/Vol] 11.0 g/dL 12.0-15.0 [facility] Work Phone: [phone] Blood lymphocytes/100 leukoc yteson 05-31-2022 Lymphocytes/100 WBC (Bld) 3.3 % 19-41 [facility] Work Phone: Blood monocytes/100 leukocyt eson 05-31-2022 Monocytes/100 WBC (Bld) 3.3 % 0-10 [facility] Work Phone: Blood platelet adequacy dete ction by light microscopyon 05-31-2022 Platelets LM Ql (Bld) ADEQUATE ADEQ [facility] Work Phone: Blood platelet mean volumeon 05-31-2022 Platelet mean volume (Bld) [Entitic vol] 10.4 fL 6.2-12.0 [facility] Work Phone: Determination of erythrocyte mean corpuscular volume (MCV)on 05-31-2022 MCV (RBC) [Entitic vol] 90.9 fL 81-99 [facility] Work Phone: Glucose Glucometer (BldC) [M ass/Vol]on 05-31-2022 Glucose [Mass/Vol] 241 mg/dL 74-106 [facility] Work Phone: Comment on above: MANAGEMENT OF PATIEN T CARE PER NURSING PROTOCOL Hematocrit Auto (Bld) [Volum e fraction]on 05-31-2022 Hematocrit (Bld) [Volume fraction] 32.9 % 37-47 [facility] Work Phone: Laboratory - Chemistry and C hemistry - challengeon 05-31-2022 CO2 [Moles/Vol] 30.0 mmol/L 21.0-32.0 [facility] Work Phone: Magnesium [Mass/Vol] 3.0 mg/dL 1.6-2.6 [facility] Work Phone: Urea nitrogen/Creatinine [Mass ratio] 64.8 mg/mg 10-20 [facility] Work Phone: Laboratory - Hematology and Cell countson 05-31-2022 Erythrocyte distribution width (RBC) [Entitic vol] 47.8 fL 35.1-43.9 [facility] Work Phone: Erythrocyte distribution width (RBC) [Ratio] 14.3 % 11.6-14.6 [facility] Work Phone: Immature granulocytes/100 WBC (Bld) 0.900 % 0.0-0.9 [facility] Work Phone: Comment on above: IG% - Immature Granu locytes (promyelocytes, myelocytes and metamyelocytes) > 1% indicates that a LEFT SHIFT is Present. MCH (RBC) [Entitic mass] 30.4 pg 27.0-32.0 [facility] Work Phone: Nucleated RBC/100 WBC (Bld) [Ratio] 0 % 0-5 [facility] Work Phone: MCHC Auto (RBC) [Mass/Vol]on 05-31-2022 MCHC (RBC) [Mass/Vol] 33.4 g/dL 32-36 [facility] Work Phone: No Panel Informationon 05-31 Estimated Creatinine Clearance Calc 50.00 ml/min [facility] Work Phone: Estimated GFR (MDRD) Amer 123 mL/min >60 [facility] Work Phone: Comment on above: GFR Calc Estimated GFR (MDRD) Non-Af Amer 102 mL/min >60 [facility] Work Phone: Comment on above: Non- GFR Calc Platelets bldon 05-31-2022 Platelets (Bld) [#/Vol] 436 10*3/uL 150-450 [facility] Work Phone: RBC morphologyon 05-31-2022 RBC morphology finding Nom (Bld) NORM C+C NORMAL NORM C&C [facility] Work Phone: Review by pathologiston 05-19 Pathologist review Marc (Unsp spec) [Interp] Reviewed [facility] Work Phone: Comment on above: Previous reported re sult: Misa cuevas Edited by: TANIA on 06/03/22:0717Neutrophilic leukocytosis.Clinical correlation necessary.Basim Jay M.D. 06/02/22 AMENDED REPORT 06/03/22 0717 PATH REV previously reported as: Misa mason Serum or plasma calcium ana urement (mass/volume)on 05-31-2022 Calcium [Mass/Vol] 7.8 mg/dL 8.5-10.1 [facility] Work Phone: Serum or plasma creatinine m easurement (mass/volume)on 05-31-2022 Creatinine [Mass/Vol] 0.62 mg/dL 0.55-1.02 [facility] Work Phone: Comment on above: The validity of the calculated GFR & GFRAA in patients over 70 years has not been determined. Clinical correlation is essential. Serum or plasma urea nitroge n measurement (mass/volume)on 05-31-2022 Urea nitrogen [Mass/Vol] 40 mg/dL 7-18 [facility] Work Phone: Thin prep Papanicolaou smear with manual screeningon 05-31-2022 Thin prep Papanicolaou smear with manual screening 7 5-15 [facility] Work Phone: Blood manual differential co mment interpretation (narrative result)on 05-30-2022 Manual differential comment Marc (Bld) [Interp] See comment [facility] Work Phone: Comment on above: NEUTROPHILIA NOTEDLE UKOCYTOSIS NOTED Basophil percentageon 2021 Bilirubin [Mass/Vol] 0.60 mg/dL 0.20-1.00 [facility] Work Phone: Comment on above: For patients on eltr ombopag therapy, use of Dimension [place] TBIL is not recommended. Protein [Mass/Vol] 6.8 g/dL 6.4-8.2 [facility] Work Phone: Laboratory - Chemistry and C hemistry - challengeon 05-29-2022 ALP [Catalytic activity/Vol] 111 U/L 45-117 [facility] Work Phone: [phone] ALT [Catalytic activity/Vol] 35 U/L 13-56 [facility] Work Phone: [phone] Globulin (S) [Mass/Vol] 4.7 g/dL 2.2-4.2 [facility] Work Phone: [phone] Serum or plasma albumin ana urement (mass/volume)on 05-29-2022 Albumin [Mass/Vol] 2.1 g/dL 3.2-5.0 [facility] Work Phone: Serum or plasma albumin/glob ulin mass ratioon 05-29-2022 Albumin/Globulin [Mass ratio] 0.4 {ratio} 0.9-2.4 [facility] Work Phone: Thin prep Papanicolaou smear with manual screeningon 05-29-2022 Thin prep Papanicolaou smear with manual screening 23 U/L 15-37 [facility] Work Phone: Basophil percentageon 2021 Basophil percentage 3.9 mg/dL 2.5-4.9 [facility] Work Phone: Assessment of wrist artery p atency prior to arterial punctureon 05-24-2022 Arterial patency Wrist artery --pre arterial puncture Positive [facility] Work Phone: Base excesson 05-24-2022 Base excess Calc (BldV) [Moles/Vol] 8 mmol/L -2-2 [facility] Work Phone: Basophil percentageon 2021 Basophil percentage 30.3 mmol/L 22-26 [facility] Work Phone: Basophils/100 WBC (Bld) 93 % 95-99 [facility] Work Phone: CO2 (BldA) [Partial pressure ]on 05-24-2022 CO2 (Bld) [Partial pressure] 36.5 mm[Hg] 35-45 [facility] Work Phone: No Panel Informationon 05-24 Blood Gas Clinical Comments AIRVO 40l [facility] Work Phone: Blood Gas Oxygen Percent 45 [facility] Work Phone: Blood Gas Sample Site R BRACHIAL [facility] Work Phone: Blood Gas Specimen Type ART [facility] Work Phone: Blood Gas Total CO2 31 mmol/L [facility] Work Phone: Blood Gas Vent Mode AIRVO [facility] Work Phone: Oxygen (BldA) [Partial press ure]on 05-24-2022 Oxygen (Bld) [Partial pressure] 58 mmHG 75-100 [facility] Work Phone: pH measurementon 05-24-2022 pH (Unsp spec) 7.53 [pH] 7.35-7.45 [facility] Work Phone: Direct bilirubinon 2 Bilirubin.direct [Mass/Vol] 0.15 mg/dL 0.00-0.30 [facility] Work Phone: Basophil percentageon 2021 Cholesterol [Mass/Vol] 58 mg/dL <200 [facility] Work Phone: Comment on above: <200 mg/dL Desirable 200-240 mg/dL Borderline >240 mg/dL High Risk Triglyceride [Mass/Vol] 98 mg/dL <199 [facility] Work Phone: Comment on above: The drugs N-Acetylcy steine and Metamizole may falsely depress this assay.Serum Triglycerides Reference Interval Normal <150 mg/dL Borderline high 150 - 199 mg/dL High 200 - 499 mg/dL Very High > or = 500 mg/dL Laboratory - Chemistry and C hemistry - challengeon 05-19-2022 Free T4 [Mass/Vol] 1.58 ng/dL 0.76-1.46 [facility] Work Phone: No Panel Informationon 05-19 Oxygen Delivery Device HFNC [facility] Work Phone: Thyroid Stimulating Hormone (TSH) 0.22 uIU/mL 0.358-3.74 [facility] Work Phone: Serum or plasma cholesterol in HDL measurement (mass/volume)on 05-19-2022 Cholesterol in HDL [Mass/Vol] 11 mg/dL >40 [facility] Work Phone: Comment on above: The drugs N-Acetylcy steine and Metamizole may falsely depress this assay. Reference Range HDL <40 mg/dL Low HDL Cholesterol HDL >or= 60 mg/dL High HDL Cholesterol Serum or plasma cholesterol in VLDL measurement (mass/volume)on 05-19-2022 Cholesterol in VLDL [Mass/Vol] 20 mg/dL 5-40 [facility] Work Phone: Serum or plasma low density lipoprotein (LDL) cholesterol measurement (mass/volume)on 05-19-2022 Cholesterol in LDL [Mass/Vol] 27 mg/dL 0-130 [facility] Work Phone: Whole blood hemoglobin A1c/t otal hemoglobin ratio (mass fraction)on 05-19-2022 HbA1c (Bld) [Mass fraction] 5.9 % 3.8-5.6 [facility] Work Phone: Comment on above: Normal < 5.7 % Predi abetic 5.7 - 6.4 % Diabetic >or= 6.5 % Please note range changes. Absolute lymphocyte counton 05-18-2022 Lymphocytes Auto (Unsp spec) [#/Vol] 0.48 10*3/uL 0.83-4.51 [facility] Work Phone: Activated partial thrombopla stin time (aPTT) in platelet poor plasma by coagulation aon 05-18-2022 aPTT Coag (PPP) [Time] 28.9 s 24.1-36.2 [facility] Work Phone: Basophil percentageon 2021 Lactate [Moles/Vol] 1.6 mmol/L 0.4-2.0 [facility] Work Phone: Basophils/100 WBC (Bld) 0.3 % 0-1 [facility] Work Phone: Chloride [Moles/Vol] 87 mmol/L 98-107 [facility] Work Phone: Eosinophils/100 WBC (Bld) 0.2 % 0-5 [facility] Work Phone: Glucose [Mass/Vol] 176 mg/dL 74-106 [facility] Work Phone: Comment on above: Fasting Glucose resu lt greater than or equal to 126 mg/dL suggests DIABETES MELLITUS per A.D.A. criteria. Neutrophils (Bld) [#/Vol] 20.4 10*3/uL 2.0-7.7 [facility] Work Phone: Neutrophils/100 WBC (Bld) 93.0 % 47-70 [facility] Work Phone: Potassium [Moles/Vol] 2.8 mmol/L 3.5-5.1 [facility] Work Phone: Sodium [Moles/Vol] 123 mmol/L 136-145 [facility] Work Phone: WBC (Bld) [#/Vol] 21.9 10*3/uL 4.4-11.0 [facility] Work Phone: Blood erythrocytes count (nu mber/volume)on 05-18-2022 RBC (Bld) [#/Vol] 4.26 10*6/uL 4.2-5.4 [facility] Work Phone: Blood hemoglobin measurement (mass/volume)on 05-18-2022 Hemoglobin (Bld) [Mass/Vol] 12.7 g/dL 12.0-15.0 [facility] Work Phone: Blood lymphocytes/100 leukoc yteson 05-18-2022 Lymphocytes/100 WBC (Bld) 2.2 % 19-41 [facility] Work Phone: Blood manual differential co mment interpretation (narrative result)on 05-18-2022 Manual differential comment Marc (Bld) [Interp] SEE COMMENT [facility] Work Phone: Comment on above: NEUTROPHILIA NOTED L YMPHOPENIA NOTED Blood monocytes/100 leukocyt eson 05-18-2022 Monocytes/100 WBC (Bld) 2.4 % 0-10 [facility] Work Phone: Blood platelet adequacy dete ction by light microscopyon 05-18-2022 Platelets LM Ql (Bld) MOD INC ADEQ [facility] Work Phone: Blood platelet mean volumeon 05-18-2022 Platelet mean volume (Bld) [Entitic vol] 9.7 fL 6.2-12.0 [facility] Work Phone: Determination of erythrocyte mean corpuscular volume (MCV)on 05-18-2022 MCV (RBC) [Entitic vol] 87.6 fL 81-99 [facility] Work Phone: Fibrinogen measurement in pl atelet poor plasma by derived coagulation (mass/volume)on 05-18-2022 Fibrinogen Coagulation.derived (PPP) [Mass/Vol] > 900 mg/dl 203-444 [facility] Work Phone: Glucose Glucometer (BldC) [M ass/Vol]on 05-18-2022 Glucose [Mass/Vol] 179 mg/dL 74-106 [facility] Work Phone: Comment on above: MANAGEMENT OF PATIEN T CARE PER NURSING PROTOCOL Hematocrit Auto (Bld) [Volum e fraction]on 05-18-2022 Hematocrit (Bld) [Volume fraction] 37.3 % 37-47 [facility] Work Phone: INR in Blood by Coagulation assayon 05-18-2022 INR Coag (Bld) [Relative time] 1.1 {INR} [facility] Work Phone: Laboratory - Chemistry and C hemistry - challengeon 05-18-2022 CK [Catalytic activity/Vol] 147 U/L 26-192 [facility] Work Phone: [phone] Natriuretic peptide B (Bld) [Mass/Vol] 232.4 pg/mL 0-100 [facility] Work Phone: [phone] CO2 [Moles/Vol] 21.0 mmol/L 21.0-32.0 [facility] Work Phone: [phone] Urea nitrogen/Creatinine [Mass ratio] 25.6 mg/mg 10-20 [facility] Work Phone: [phone] Laboratory - Coagulationon 0 05-18-2022 PT Coag (PPP) [Time] 13.7 s 11.7-14.9 [facility] Work Phone: Laboratory - Hematology and Cell countson 05-18-2022 Anisocytosis Ql (Bld) RARE [facility] Work Phone: [phone] Erythrocyte distribution width (RBC) [Entitic vol] 44.8 fL 35.1-43.9 [facility] Work Phone: [phone] Erythrocyte distribution width (RBC) [Ratio] 14.0 % 11.6-14.6 [facility] Work Phone: [phone] Immature granulocytes/100 WBC (Bld) 1.900 % 0.0-0.9 [facility] Work Phone: Comment on above: IG% - Immature Granu locytes (promyelocytes, myelocytes and metamyelocytes) > 1% indicates that a LEFT SHIFT is Present. MCH (RBC) [Entitic mass] 29.8 pg 27.0-32.0 [facility] Work Phone: Nucleated RBC/100 WBC (Bld) [Ratio] 0 % 0-5 [facility] Work Phone: Laboratory - Microbiology an d Antimicrobial susceptibilityon 05-18-2022 SARS-CoV-2 (COVID-19) RNA BHANU+probe Ql (Unsp spec) Detected Not Detect [facility] Work Phone: Comment on above: CRITICAL VALUE VERIF IED. CALLED TO Artemio FLORESAL RN (PCU)05/19/22 0332 Luis Fraser.RESULTS READ BACK [...] 05-18-2022 MCHC (RBC) [Mass/Vol] 34.0 g/dL 32-36 [facility] Work Phone: No Panel Informationon 05-18 Troponin I High Sensitivity 40 pg/mL 3.0-54.0 [facility] Work Phone: Comment on above: Please Note: [place] t Units and Gender Specific Reference Ranges. For more information see Policy Stat Procedure [place] High Sensitivity Troponin (TNIH) and attachments. D-Dimer Quantitative (PE/DVT) 3.41 FEU/ug/m 0.27-0.49 [facility] Work Phone: Comment on above: CRITICAL VALUE VERIF IED. CALLED TO JEAN-PAUL DAILY RN [id number]/18/[id number] Aniket Saenz.RESULTS READ BACK BY SAME . D-Dimer ELEVATED (>0.49): Additional studies and clinicalassessments are indicated to conclude diagnosis of:Deep Vein Thrombosis (DVT) or Pulmonary Embolism (PE) Estimated Creatinine Clearance Calc 54.71 ml/min [facility] Work Phone: Estimated GFR (MDRD) Amer 99 mL/min >60 [facility] Work Phone: Comment on above: GFR Calc Estimated GFR (MDRD) Non-Af Amer 82 mL/min >60 [facility] Work Phone: Comment on above: Non- GFR Calc Thyroid Stimulating Hormone (TSH) 0.35 uIU/mL 0.358-3.74 [facility] Work Phone: Troponin I High Sensitivity 57 pg/mL 3.0-54.0 [facility] Work Phone: Comment on above: Please Note: [place] t Units and Gender Specific Reference Ranges. For more information see Policy Stat Procedure [place] High Sensitivity Troponin (TNIH) and attachments. Platelets bldon 05-18-2022 Platelets (Bld) [#/Vol] 559 10*3/uL 150-450 [facility] Work Phone: RBC morphologyon 05-18-2022 RBC morphology finding Nom (Bld) N CHROM NORMAL NORM C&C [facility] Work Phone: Serum or plasma C reactive p rotein measurement (mass/volume)on 05-18-2022 CRP [Mass/Vol] 433.00 mg/L 0.0-3.0 [facility] Work Phone: Comment on above: C-Reactive Protein ( CRP) provides useful information for thediagnosis, therapy and monitoring of inflammatory processesand associated diseases. For the evaluation of Relative Riskfor Cardiovascular Disease, a High Sensitivity CRP (HSCRP)should be ordered. Serum or plasma calcium ana urement (mass/volume)on 05-18-2022 Calcium [Mass/Vol] 8.7 mg/dL 8.5-10.1 [facility] Work Phone: Serum or plasma creatinine m easurement (mass/volume)on 05-18-2022 Creatinine [Mass/Vol] 0.74 mg/dL 0.55-1.02 [facility] Work Phone: Comment on above: The validity of the calculated GFR & GFRAA in patients over 70 years has not been determined. Clinical correlation is essential. Serum or plasma urea nitroge n measurement (mass/volume)on 05-18-2022 Urea nitrogen [Mass/Vol] 19 mg/dL 7-18 [facility] Work Phone: Serum procalcitonin measurem enton 05-18-2022 Procalcitonin [Mass/Vol] 6.79 ng/mL 0.00-0.09 [facility] Work Phone: Comment on above: A [...] smear with manual screening 380 U/L 84-246 [facility] Work Phone: Comment on above: Slight Hemolysis, Re sult may be falsely increased. Thin prep Papanicolaou smear with manual screening 15 5-15 [facility] Work Phone: Bronchoalveolar lavage cultu re with Gram stain Respiratory Culture Aspirgillus fumigatus [facility] Work Phone: COVID-19 virus antigen assay SARS-CoV-2 (COVID-19) Ag IA.rapid Ql (Resp) [facility] Work Phone: Culture, urine Bacteria identified Cx Nom (U) Enterobacter aerogenes [facility] Work Phone: Bacteria identified Cx Nom (U) Klebsiella pneumoniae sp pneum [facility] Work Phone: Fungus culture and stain Fungal Culture Shalini albicans [facility] Work Phone: Fungal Culture Aspirgillus fumigatus [facility] Work Phone: Gram stain for investigation of transfusion reaction Microscopic observation Gram stain Nom (Unsp spec) [facility] Work Phone: Laboratory - Microbiology an d Antimicrobial susceptibility Bacteria identified Cx Nom (Bld) No growth in 5 days. [facility] Work Phone: Bacteria identified Cx Nom (Bld) NO GROWTH IN 14 DAYS [facility] Work Phone: No Panel Information Streptococcus pneumoniae Antigen (M [facility] Work Phone: Vital Signs Date Time Vital Sign Value Performing Clinician Facility 06-24-2025 16:58-0400 Body temperature 98.3 [degF] Dr. Misael Molina MD Work Phone: [facility] 06-24-2025 16:58-0400 Diastolic blood pressure 68 mm[Hg] Dr. Misael Molina MD Work Phone: [facility] 06-24-2025 16:58-0400 Heart rate 96 /min Dr. Misael Molina MD Work Phone: [facility] 06-24-2025 16:58-0400 Inhaled oxygen flow rate 2 L/min Dr. Misael Molina MD Work Phone: [facility] 06-24-2025 16:58-0400 Respiratory rate 14 /min Dr. Misael Molina MD Work Phone: [facility] 06-24-2025 16:58-0400 SaO2% (BldA) [Mass fraction] 100 % Dr. Misael Molina MD Work Phone: [facility] 06-24-2025 16:58-0400 Systolic blood pressure 112 mm[Hg] Dr. Misael Molina MD Work Phone: [facility] 06-24-2025 14:32-0400 Body height 170.[address] Misael Molina MD Work Phone: [facility] 06-24-2025 14:32-0400 Body mass index (BMI) [Ratio] 23.4 kg/m2 Dr. Misael Molina MD Work Phone: [facility] 06-24-2025 14:32-0400 Body weight [address] Misael Molina MD Work Phone: 8(613)566-603734 [place] [address] 06-16-2025 11:23-0400 Body height 172.[address] Misael Molina MD Work Phone: 5(547)477-208034 [place] [address] 06-16-2025 11:23-0400 Body mass index (BMI) [Ratio] 22.6 kg/m2 Dr. Misael Molina MD Work Phone: 3(094)728-954234 [place] [address] 06-16-2025 11:23-0400 Body weight 67.[address] Misael Molina MD Work Phone: 2(577)384-494534 [place] [address] 06-16-2025 11:23-0400 Diastolic blood pressure 71 mm[Hg] Dr. Misael Molina MD Work Phone: 2(669)587-714034 [place] [address] 06-16-2025 11:23-0400 Heart rate 84 /min Dr. Misael Molina MD Work Phone: 2(493)014-024134 [place] [address] 06-16-2025 11:23-0400 Respiratory rate 18 /min Dr. Misael Molina MD Work Phone: 1(597)359-488134 [place] [address] 06-16-2025 11:23-0400 SaO2% (BldA) [Mass fraction] 92 % Dr. Misael Molina MD Work Phone: 8(229)273-355434 [place] [address] 06-16-2025 11:23-0400 Systolic blood pressure 108 mm[Hg] Dr. Misael Molina MD Work Phone: 9(283)920-298980 [place] [address] 11-24-2024 07:45-0500 Body temperature 97 [degF] Dr. Misael Molina MD Work Phone: 1(458)525-692534 [place] [address] 11-24-2024 07:45-0500 Diastolic blood pressure 79 mm[Hg] Dr. Misael Molina MD Work Phone: 2(685)687-645180 [place] [address] 11-24-2024 07:45-0500 Heart rate 65 /min Dr. Misael Molina MD Work Phone: 6(058)746-290880 [place] [address] 11-24-2024 07:45-0500 Respiratory rate 16 /min Dr. Misael Molina MD Work Phone: [facility] 11-24-2024 07:45-0500 SaO2% (BldA) [Mass fraction] 96 % Dr. Misael Molina MD Work Phone: [facility] 11-24-2024 07:45-0500 Systolic blood pressure 114 mm[Hg] Dr. Misael Molina MD Work Phone: 5(048)749-606680 [place] [address] 11-24-2024 06:02-0500 Body height 172.[address] Misael Molina MD Work Phone: 4(862)289-317580 [place] [address] 11-24-2024 06:02-0500 Body mass index (BMI) [Ratio] 23.1 kg/m2 Dr. Misael Molina MD Work Phone: 0(294)305-222380 [place] [address] 11-24-2024 06:02-0500 Body weight [address] Misael Molina MD Work Phone: 8(788)720-213180 [place] [address] 06-24-2023 13:08-0400 Body height 172.[address] Misael Molina Work Phone: 2(849)562-016245 [address] 06-24-2023 13:08-0400 Body mass index (BMI) [Ratio] 25.9 kg/m2 Dr. Misael Molina Work Phone: 2(074)082-831580 [place] [address] 06-24-2023 13:08-0400 Body weight 77.[address] Misael Molina Work Phone: 2(755)062-382180 [place] [address] 06-24-2023 13:08-0400 Diastolic blood pressure 74 mm[Hg] Dr. Misael Molina Work Phone: 5(717)511-590280 [place] [address] 06-24-2023 13:08-0400 Heart rate 76 /min Dr. Misael Molina Work Phone: [facility] 06-24-2023 13:08-0400 Respiratory rate 18 /min Dr. Misael Molina Work Phone: [facility] 06-24-2023 13:08-0400 SaO2% (BldA) [Mass fraction] 92 % Dr. Misael Molina Work Phone: [facility] 06-24-2023 13:08-0400 Systolic blood pressure 114 mm[Hg] Dr. Misael Molina Work Phone: [facility] 01-27-2023 07:18-0400 Body temperature 98.8 [degF] Dr. Misael Molina Work Phone: [facility] 01-27-2023 07:18-0400 Diastolic blood pressure 63 mm[Hg] Dr. Misael Molina Work Phone: 0(328)598-129334 [place] [address] 01-27-2023 07:18-0400 Heart rate 70 /min Dr. Misael [facility] Work Phone: [phone] [place] [address] 01-27-2023 07:18-0400 Respiratory rate 16 /min Dr. Misael Molina Work Phone: [phone] [address] 01-27-2023 07:18-0400 SaO2% (BldA) [Mass fraction] 99 % Dr. Misael Molina Work Phone: [phone] [address] 01-27-2023 07:18-0400 Systolic blood pressure 137 mm[Hg] Dr. Misael Molina Work Phone: 2(343)[phone] [place] [address] 01-27-2023 05:53-0400 Body height 172.[address] Misael Molina Work Phone: [phone] [address] 01-27-2023 05:53-0400 Body mass index (BMI) [Ratio] 23.4 kg/m2 Dr. Misael Molina Work Phone: 3(363)[phone] [address] 01-27-2023 05:53-0400 Body weight 69.[address] Misael Molina Work Phone: [phone](638)[phone] [place] [address] 12-24-2022 14:40-0500 Body height 172.[address] Misael Molina Work Phone: [facility] 12-24-2022 14:40-0500 Body mass index (BMI) [Ratio] 23.4 kg/m2 Dr. Misael Molina Work Phone: [facility] 12-24-2022 14:40-0500 Body weight 69.[address] iMsael Molina Work Phone: [facility] 12-24-2022 14:40-0500 Diastolic blood pressure 78 mm[Hg] Dr. Misael Molina Work Phone: [facility] 12-24-2022 14:40-0500 Heart rate 68 /min Dr. Misael Molina Work Phone: [facility] 12-24-2022 14:40-0500 Respiratory rate 16 /min Dr. Misael Molina Work Phone: [facility] 12-24-2022 14:40-0500 SaO2% (BldA) [Mass fraction] 97 % Dr. Misael Molina Work Phone: [facility] 12-24-2022 14:40-0500 Systolic blood pressure 136 mm[Hg] Dr. Misael Molina Work Phone: [facility] 11-11-2022 08:00-0500 Body height 172.[address] Misael Molina Work Phone: [facility] 11-11-2022 08:00-0500 Body weight 62.[address] Misael Molina Work Phone: [facility] 11-10-2022 09:28-0500 Body mass index (BMI) [Ratio] 20.9 kg/m2 Dr. Misael Molina Work Phone: [facility] 09-25-2022 14:10-0500 Body height 172.[address] Misael Molina Work Phone: [facility] Work Phone: 09-25-2022 14:10-0500 Body mass index (BMI) [Ratio] 20.9 kg/m2 Dr. Misael Molina Work Phone: [facility] 09-25-2022 14:10-0500 Body weight 62.[address] Misael Molina Work Phone: [facility] 09-25-2022 14:10-0500 Diastolic blood pressure 72 mm[Hg] Dr. Misael Molina Work Phone: [facility] 09-25-2022 14:10-0500 Heart rate 64 /min Dr. Misael Molina Work Phone: [facility] 09-25-2022 14:10-0500 Respiratory rate 18 /min Dr. Misael Molina Work Phone: [facility] 09-25-2022 14:10-0500 Systolic blood pressure 122 mm[Hg] Dr. Misael Molina Work Phone: [facility] 08-06-2022 12:30-0400 Body temperature 97.6 [degF] Dr. Misael Molina Work Phone: [facility] 08-06-2022 12:30-0400 Diastolic blood pressure 72 mm[Hg] Dr. Misael Molina Work Phone: [facility] 08-06-2022 12:30-0400 Heart rate 80 /min Dr. Misael Molina Work Phone: [facility] 08-06-2022 12:30-0400 Respiratory rate 18 /min Dr. Misael Molina Work Phone: [facility] 08-06-2022 12:30-0400 SaO2% (BldA) [Mass fraction] 96 % Dr. Misael Molina Work Phone: [facility] 08-06-2022 12:30-0400 Systolic blood pressure 124 mm[Hg] Dr. Misael Molina Work Phone: [facility] 08-06-2022 10:00-0400 Heart rate 103 /min Dr. Misael Molina Work Phone: [facility] Work Phone: 08-06-2022 10:00-0400 SaO2% (BldA) [Mass fraction] 95 % Dr. Misael Molina Work Phone: [facility] Work Phone: 08-06-2022 08:04-0400 Diastolic blood pressure 71 mm[Hg] Dr. Misael Molina Work Phone: [facility] Work Phone: 08-06-2022 08:04-0400 Systolic blood pressure 122 mm[Hg] Dr. Misael Molina Work Phone: [facility] Work Phone: 08-06-2022 07:35-0400 Respiratory rate 18 /min Dr. Misael Molina Work Phone: [facility] Work Phone: 08-05-2022 12:50-0400 Body temperature 98.3 [degF] Dr. Misael Molina Work Phone: [facility] Work Phone: 08-05-2022 11:24-0400 Body weight 58.[address] Misael Molina Work Phone: [facility] 08-01-2022 23:32-0400 Inhaled oxygen concentration 21 % Dr. Misael Molina Work Phone: [facility] 07-31-2022 22:00-0400 Inhaled oxygen flow rate 2 L/min Dr. Misael Molina Work Phone: [facility] 07-30-2022 17:24-0400 Body height 172.[address] Misael Molina Work Phone: [facility] Work Phone: 07-02-2022 12:38-0400 Diastolic blood pressure 70 mm[Hg] Dr. Misael Molina Work Phone: [facility] Work Phone: 07-02-2022 12:38-0400 Heart rate 72 /min Dr. Misael Molina Work Phone: [facility] Work Phone: 07-02-2022 12:38-0400 Systolic blood pressure 114 mm[Hg] Dr. Misael Molina Work Phone: [facility] Work Phone: 07-02-2022 07:30-0400 Inhaled oxygen flow rate 2 L/min Dr. Misael Molina Work Phone: [facility] Work Phone: 07-02-2022 07:30-0400 Respiratory rate 21 /min Dr. Misael Molina Work Phone: [facility] Work Phone: 07-01-2022 14:03-0400 Body temperature 97 [degF] Dr. Misael Molina Work Phone: [facility] Work Phone: 07-01-2022 14:03-0400 SaO2% (BldA) [Mass fraction] 95 % Dr. Misael Molina Work Phone: [facility] Work Phone: 07-01-2022 14:02-0400 Body weight 62.[address] Misael Molina Work Phone: [facility] Work Phone: 06-29-2022 15:48-0400 Body temperature 98.7 [degF] Dr. Misael Molina Work Phone: [facility] Work Phone: 06-29-2022 15:48-0400 Diastolic blood pressure 61 mm[Hg] Dr. Misael Molina Work Phone: [facility] Work Phone: 06-29-2022 15:48-0400 Heart rate 75 /min Dr. Misael Molina Work Phone: [facility] Work Phone: 06-29-2022 15:48-0400 Inhaled oxygen flow rate 2 L/min Dr. Misael Molina Work Phone: [facility] Work Phone: 06-29-2022 15:48-0400 Respiratory rate 14 /min Dr. Misael Molina Work Phone: [facility] Work Phone: 06-29-2022 15:48-0400 SaO2% (BldA) [Mass fraction] 96 % Dr. Misael Molina Work Phone: [facility] Work Phone: 06-29-2022 15:48-0400 Systolic blood pressure 114 mm[Hg] Dr. Misael Molina Work Phone: [facility] Work Phone: 06-29-2022 11:58-0400 Diastolic blood pressure 61 mm[Hg] Dr. Misael Molina Work Phone: [facility] Work Phone: 06-29-2022 11:58-0400 Heart rate 72 /min Dr. Misael Molina Work Phone: [facility] Work Phone: 06-29-2022 11:58-0400 Systolic blood pressure 114 mm[Hg] Dr. Misael Molina Work Phone: [facility] Work Phone: 06-29-2022 07:05-0400 Inhaled oxygen flow rate 2 L/min Dr. Misael Molina Work Phone: [facility] Work Phone: 06-29-2022 07:05-0400 Respiratory rate 16 /min Dr. Misael Molina Work Phone: [facility] Work Phone: 06-29-2022 07:05-0400 SaO2% (BldA) [Mass fraction] 91 % Dr. Misael Molina Work Phone: [facility] Work Phone: 06-28-2022 14:31-0400 Body temperature 96.4 [degF] Dr. Misael Molina Work Phone: [facility] Work Phone: 06-25-2022 14:32-0400 Body height 172.[address] Misael Molina Work Phone: [facility] Work Phone: 06-25-2022 14:32-0400 Body weight 65.[address] Misael Molina Work Phone: [facility] Work Phone: 06-18-2022 14:06-0400 Body mass index (BMI) [Ratio] 22.3 kg/m2 Dr. Misael Molina Work Phone: [facility] 06-18-2022 12:55-0400 Body temperature 97 [degF] Dr. Misael Molina Work Phone: [facility] Work Phone: 06-18-2022 12:55-0400 Diastolic blood pressure 46 mm[Hg] Dr. Misael Molina Work Phone: [facility] Work Phone: 06-18-2022 12:55-0400 Heart rate 75 /min Dr. Misael Molina Work Phone: [facility] Work Phone: 06-18-2022 12:55-0400 Inhaled oxygen flow rate 2 L/min Dr. Misael Molina Work Phone: [facility] Work Phone: 06-18-2022 12:55-0400 Respiratory rate 16 /min Dr. Misael Molina Work Phone: [facility] Work Phone: 06-18-2022 12:55-0400 SaO2% (BldA) [Mass fraction] 97 % Dr. Misael Molina Work Phone: [facility] Work Phone: 06-18-2022 12:55-0400 Systolic blood pressure 96 mm[Hg] Dr. Misael Molina Work Phone: [facility] Work Phone: 06-18-2022 06:00-0400 Body weight 77.[address] Misael Molina Work Phone: [facility] Work Phone: 06-16-2022 15:12-0400 Body height [address] Misael Molina Work Phone: [facility] Work Phone: 06-15-2022 04:00-0400 Inhaled oxygen concentration 93 % Dr. Misael Molina Work Phone: [facility] Work Phone: 06-11-2022 10:43-0400 Body mass index (BMI) [Ratio] 21.9 kg/m2 Dr. Misael Molina Work Phone: [facility] Work Phone: 06-06-2022 20:00-0400 Body temperature 97.8 [degF] Dr. Misael Molina Work Phone: [facility] Work Phone: 06-06-2022 20:00-0400 Diastolic blood pressure 57 mm[Hg] Dr. Misael Molina Work Phone: [facility] Work Phone: 06-06-2022 20:00-0400 Heart rate 100 /min Dr. Misael Molina Work Phone: [facility] Work Phone: 06-06-2022 20:00-0400 Inhaled oxygen flow rate 2 L/min Dr. Misael Molina Work Phone: [facility] Work Phone: 06-06-2022 20:00-0400 Respiratory rate 17 /min Dr. Misael Molina Work Phone: [facility] Work Phone: 06-06-2022 20:00-0400 SaO2% (BldA) [Mass fraction] 96 % Dr. Misael Molina Work Phone: [facility] Work Phone: 06-06-2022 20:00-0400 Systolic blood pressure 87 mm[Hg] Dr. Misael Molina Work Phone: [facility] Work Phone: 06-06-2022 14:12-0400 Body height [address] Misael Molina Work Phone: [facility] Work Phone: 06-06-2022 14:12-0400 Body mass index (BMI) [Ratio] 22.2 kg/m2 Dr. Misael Molina Work Phone: [facility] Work Phone: 06-06-2022 14:12-0400 Body weight 66.[address] Misael Molina Work Phone: [facility] Work Phone: 06-03-2022 16:08-0400 Diastolic blood pressure 72 mm[Hg] Dr. Misael Molina Work Phone: [facility] Work Phone: 06-03-2022 16:08-0400 Systolic blood pressure 93 mm[Hg] Dr. Misael Molina Work Phone: [facility] Work Phone: 06-03-2022 16:06-0400 Heart rate 95 /min Dr. Misael Molina Work Phone: [facility] Work Phone: 06-03-2022 16:06-0400 SaO2% (BldA) [Mass fraction] 94 % Dr. Misael Molina Work Phone: [facility] Work Phone: 06-03-2022 15:00-0400 Body temperature 97.6 [degF] Dr. Misael Molina Work Phone: [facility] Work Phone: 06-03-2022 15:00-0400 Inhaled oxygen flow rate 4 L/min Dr. Misael Molina Work Phone: [facility] Work Phone: 06-03-2022 15:00-0400 Respiratory rate 25 /min Dr. Misael Molina Work Phone: [facility] Work Phone: 06-03-2022 12:44-0400 Body mass index (BMI) [Ratio] 21.5 kg/m2 Dr. Misael Molina Work Phone: [facility] Work Phone: 06-03-2022 12:44-0400 Body weight 64.[address] Misael Molina Work Phone: [facility] Work Phone: 05-31-2022 20:02-0400 Inhaled oxygen flow rate 4 L/min Dr. Misael Molina Work Phone: [facility] Work Phone: 05-31-2022 19:53-0400 Heart rate 76 /min Dr. Misael Molina Work Phone: [facility] Work Phone: 05-31-2022 19:41-0400 Body temperature 95.7 [degF] Dr. Misael Molina Work Phone: [facility] Work Phone: 05-31-2022 19:41-0400 Diastolic blood pressure 61 mm[Hg] Dr. Misael Molina Work Phone: [facility] Work Phone: 05-31-2022 19:41-0400 Respiratory rate 18 /min Dr. Misael Molina Work Phone: [facility] Work Phone: 05-31-2022 19:41-0400 SaO2% (BldA) [Mass fraction] 98 % Dr. Misael Molina Work Phone: [facility] Work Phone: 05-31-2022 19:41-0400 Systolic blood pressure 106 mm[Hg] Dr. Misael Molina Work Phone: [facility] Work Phone: 05-31-2022 05:24-0400 Body weight 60.[address] Misael Molina Work Phone: [facility] Work Phone: 05-27-2022 07:24-0400 Inhaled oxygen concentration 60 % Dr. Misael Molina Work Phone: [facility] Work Phone: 05-18-2022 20:00-0400 Body mass index (BMI) [Ratio] 21.5 kg/m2 Dr. Misael Molina Work Phone: [facility] Work Phone: 05-18-2022 19:29-0400 Body temperature 98.9 [degF] [facility] Work Phone: 05-18-2022 19:29-0400 Diastolic blood pressure 66 mm[Hg] [facility] Work Phone: 05-18-2022 19:29-0400 Heart rate 133 /min [facility] Work Phone: 05-18-2022 19:29-0400 Inhaled oxygen flow rate 3 L/min [facility] Work Phone: 05-18-2022 19:29-0400 Respiratory rate 38 /min [facility] Work Phone: 05-18-2022 19:29-0400 SaO2% (BldA) [Mass fraction] 95 % [facility] Work Phone: 05-18-2022 19:29-0400 Systolic blood pressure 121 mm[Hg] [facility] Work Phone: 05-18-2022 16:10-0400 Body height 175.26 cm [facility] Work Phone: 05-18-2022 16:10-0400 Body mass index (BMI) [Ratio] 21.7 kg/m2 [facility] Work Phone: 05-18-2022 16:10-0400 Body weight 66.6 kg [facility] Work Phone: Encounters Encounter Date Encounter Type Care Provider Facility Start: [facility] Work Phone: Start: 06-24-[address] Misael connolly MD Work Phone: -[facility] Start: 06-24-2025 Non-patient / Non-visit Maurilio Friend DO -[facility] Start: 06-16-2025 End: 06-16-[address] Misael Molina MD Work Phone: -Laboratory [facility] Start: 06-16-2025 End: 06-16-[address] Aniket Cheema MD -[facility] Start: 06-16-2025 End: 06-16-[address] Aniket Cheema MD -[facility] Work Phone: Start: 06-16-2025 End: 06-16-[address] Misael Molina MD Work Phone: -[facility] Start: 06-16-2025 End: 06-16-2025 ambulatory Misael Molina Facility:[facility] Start: 04-18-2025 Non-patient / Non-visit Dr. Alberta Browne MD -[facility] Work Phone: Start: 01-26-2025 End: 01-26-[address] Misael Molina MD Work Phone: [facility] Work Phone: Start: 01-26-2025 End: 01-26-[address] Misael Molina MD -[facility] Work Phone: Start: 01-26-2025 End: 01-26-2025 ambulatory Misael Molina Facility:[facility] Start: 11-24-2024 ambulatory Misael Molina Facility:[facility] Start: 11-24-2024 Non-patient / Non-visit Maurilio Mcmanus DO -[facility] Start: 11-24-2024 End: 11-24-2024 Admission to same day surgery center Maurilio Mcmanus -Endoscopy Work Phone: Start: 11-24-2024 End: 11-24-2024 ambulatory Misael Molina Facility:[facility] Start: 09-13-2024 End: 09-13-2024 ambulatory Misael Molina Facility:[facility] Start: 07-27-2024 End: 07-27-2024 ambulatory Misael Molina Facility:[facility] Start: 07-15-2024 End: 07-15-2024 ambulatory Dax Terry Facility:[facility] Start: 07-06-2024 End: 07-06-2024 ambulatory Misael Molina Facility:[facility] Start: 12-14-2023 End: 12-14-[address] Misael Molina Work Phone: [facility] Work Phone: Start: 12-14-2023 End: 12-14-[address] Misael Molina Work Phone: [facility] Work Phone: Start: 12-10-2023 End: 12-10-[address] Misael Molina Work Phone: [facility] Work Phone: Start: 12-02-2023 End: 12-02-2023 ambulatory [facility] Work Phone: Start: 12-02-2023 End: 12-02-2023 Patient encounter procedure [facility] Work Phone: Start: 06-25-2023 End: 06-25-[address] Misael Molina Work Phone: [facility] Work Phone: Start: 06-25-2023 End: 06-25-[address] Misael Molina Work Phone: [facility]-Laboratory, Specimen Work Phone: Start: 06-24-2023 End: 06-24-[address] Misael Molina Work Phone: [facility] Work Phone: Start: 06-08-2023 End: 06-08-2023 ambulatory [facility] Work Phone: Start: 06-08-2023 End: 06-08-2023 Patient encounter procedure [facility]-Laboratory, [place] Work Phone: Start: 05-19-2023 End: 05-19-2023 Patient encounter procedure [facility]-Cat Scan, [facility] Work Phone: Start: 03-06-2023 End: 03-06-2023 Patient encounter procedure [facility]-Nuclear Medicine, [facility] Work Phone: Start: 03-03-2023 End: 03-03-2023 Patient encounter procedure [facility] Start: 02-11-2023 End: 02-11-[address] Misael Molina Work Phone: [facility]-Laboratory Start: 02-05-2023 End: 02-05-[address] Misael Molina Work Phone: [facility] Work Phone: Start: 02-05-2023 End: 02-05-[address] Misael Molina Work Phone: [facility]-Outpatient Breast Imaging Start: 01-27-2023 Non-patient / Non-visit Dr. Misael Molina Work Phone: [facility] Start: 01-27-2023 End: 01-27-2023 Admission to same day surgery center Dr. Misael Molina Work Phone: [facility]-Endoscopy Start: 01-27-2023 End: 01-27-[address] Misael Molina Work Phone: [facility] Work Phone: Start: 01-26-2023 End: 01-26-[address] Misael Molina Work Phone: [facility] Start: 12-24-2022 End: 12-24-[address] Misael Molina Work Phone: [facility] Start: 12-23-2022 End: 12-23-[address] Misael Molina Work Phone: [facility] Work Phone: Start: 12-23-2022 End: 12-23-[address] Misael Molina Work Phone: [facility] Start: 12-11-2022 End: 12-11-[address] Misael Molina Work Phone: [facility] Work Phone: Start: 12-11-2022 End: 12-11-[address] Misael Molina Work Phone: [facility] Start: 11-13-2022 End: 11-13-[address] Misael Molina Work Phone: [facility] Work Phone: Start: 11-13-2022 End: 11-13-[address] Misael Molina Work Phone: [facility]-Laboratory Start: 11-11-2022 End: 11-11-2022 Admission to same day surgery center Dr. Misael Molina Work Phone: [facility]-Assayer/Special Procedures Start: 11-11-2022 End: 11-11-[address] Misael Molina Work Phone: [facility] Work Phone: Start: 11-10-2022 Non-patient / Non-visit Dr. Misael Molina Work Phone: [facility] Start: 11-04-2022 End: 11-04-[address] Misael Molina Work Phone: [facility] Work Phone: Start: 11-04-2022 End: 11-04-[address] Misael Molina Work Phone: [facility]-Laboratory Start: 11-04-2022 End: 11-04-[address] Misael Molina Work Phone: [facility] Start: 10-15-2022 Non-patient / Non-visit Dr. Misael Molina Work Phone: [facility] Start: 10-15-2022 End: 10-15-[address] Misael Molina Work Phone: [facility] Work Phone: Start: 10-15-2022 End: 10-15-[address] Misael Molina Work Phone: [facility]-Cardiovascular Services Start: 09-25-2022 End: 09-25-[address] Misael Molina Work Phone: [facility] Start: 09-23-2022 Non-patient / Non-visit Dr. Misael Molina Work Phone: [facility] Start: 06-30-2022 Non-patient / Non-visit Dr. Misael Molina Work Phone: [facility] Start: 06-29-2022 End: 06-29-[address] Misael Molina Work Phone: [facility] Work Phone: Start: 06-29-2022 End: 06-29-[address] Misael Molina Work Phone: [facility]-Progressive Care Unit, Outpt Start: 06-26-2022 End: 06-26-[address] Misael Molina Work Phone: [facility] Work Phone: Start: 06-26-2022 End: 06-26-[address] Misael Molina Work Phone: [facility] Start: 06-18-2022 End: 08-06-2022 Evaluation and management of inpatient [facility] Misael Mol[facility] Start: 06-18-2022 Non-patient / Non-visit Dr. Misael Molina Work Phone: [facility] Start: 06-18-2022 Non-patient / Non-visit Dr. Misael Molina Work Phone: [facility] Start: 06-17-2022 Non-patient / Non-visit Dr. Misael Molnia Work Phone: [facility] Start: 06-17-2022 Non-patient / Non-visit Dr. Misael Molina Work Phone: [facility] Start: 06-16-2022 Non-patient / Non-visit Dr. Misael Molina Work Phone: [facility] Start: 06-16-2022 Non-patient / Non-visit Dr. Misael Molina Work Phone: [facility] Start: 06-15-2022 Non-patient / Non-visit Dr. Misael Molina Work Phone: [facility] Start: 06-14-2022 Non-patient / Non-visit Dr. Misael Molina Work Phone: [facility] Start: 06-13-2022 Non-patient / Non-visit Dr. Misael Molina Work Phone: [facility] Start: 06-13-2022 Non-patient / Non-visit Dr. Misael Molina Work Phone: [facility] Start: 06-12-2022 Non-patient / Non-visit Dr. Misael Molina Work Phone: [facility] Start: 06-12-2022 Non-patient / Non-visit Dr. Misael Molina Work Phone: [facility] Start: 06-11-2022 Non-patient / Non-visit Dr. Misael Molina Work Phone: [facility] Start: 06-11-2022 Non-patient / Non-visit Dr. Misael Molina Work Phone: [facility] Start: 06-11-2022 Non-patient / Non-visit Dr. Misael Molina Work Phone: [facility] Start: 06-10-2022 Non-patient / Non-visit Dr. Misael Molina Work Phone: [facility] Start: 06-10-2022 Non-patient / Non-visit Dr. Misael Molina Work Phone: [facility] Start: 06-09-2022 Non-patient / Non-[facility] Start: 06-09-2022 Non-patient / Non-visit Dr. Misael Molina Work Phone: [facility] Start: 06-09-2022 Non-patient / Non-visit Dr. Misael Molina Work Phone: [facility] Start: 06-08-2022 Non-patient / Non-visit Dr. Misael Molina Work Phone: [facility] Start: 06-08-2022 Non-patient / Non-visit Dr. Misael Molina Work Phone: [facility] Start: 06-08-2022 Non-patient / Non-visit Dr. Misael Molina Work Phone: [facility] Start: 06-07-2022 Non-patient / Non-visit Dr. Misael Molina Work Phone: [facility] Start: 06-07-2022 Non-patient / Non-visit Dr. Misael Molina Work Phone: [facility] Start: 06-07-2022 Non-patient / Non-visit [facility]. Misael Mol[facility] Start: 06-06-2022 End: 06-18-2022 Evaluation and management of inpatient [facility]. Misael Molina [facility] Start: 06-06-2022 Non-patient / Non-visit Dr. Misael Molina Work Phone: [facility] Start: 06-06-2022 Evaluation and management of inpatient Dr. Misael Molina [facility] Start: 06-03-2022 End: 06-03-2022 Emergency department patient visit Dr. Misael Molina Work Phone: [facility]-Emergency Department Start: 05-31-2022 Non-patient / Non-visit Dr. Misael Molina Work Phone: [facility] Start: 05-31-2022 Non-patient / Non-visit [facility]. Misael Molina [facility] Start: 05-30-2022 Non-patient / Non-visit Dr. Misael Molina Work Phone: [facility] Start: 05-30-2022 Non-patient / Non-visit Dr. Misael Molina Work Phone: [facility] Start: 05-29-2022 Non-patient / Non-visit Dr. Misael Molina Work Phone: [facility] Start: 05-29-2022 Non-patient / Non-visit Dr. Misael Molina Work Phone: [facility] Start: 05-28-2022 Non-patient / Non-visit Dr. Misael Molina Work Phone: [facility] Start: 05-27-2022 Non-patient / Non-visit [facility] Start: 05-27-2022 Non-patient / Non-visit Dr. Misael Molina Work Phone: [facility] Start: 05-26-2022 Non-patient / Non-visit Dr. Misael Molina Work Phone: [facility] Start: 05-25-2022 Non-patient / Non-visit Dr. Misael Molina Work Phone: [facility] Start: 05-24-2022 Non-patient / Non-visit Dr. Misael Molina Work Phone: [facility] Start: 05-24-2022 Non-patient / Non-visit Dr. Misael Molina Work Phone: [facility] Start: 05-23-2022 Non-patient / Non-visit Dr. Misael Molina Work Phone: [facility] Start: 05-23-2022 Non-patient / Non-[facility] Start: 05-22-2022 Non-patient / Non-visit Dr. Misael Molina Work Phone: [facility] Start: 05-22-2022 Non-patient / Non-visit Dr. Misael Molina Work Phone: [facility] Start: 05-21-2022 Non-patient / Non-visit Dr. Misael Molina Work Phone: [facility] Start: 05-21-2022 Non-patient / Non-visit Dr. Misael Molina Work Phone: [facility] Start: 05-20-2022 Non-patient / Non-visit Dr. Misael Molina Work Phone: [facility] Start: 05-20-2022 End: 05-31-2022 Non-patient / Non-visit Dr. Misael Molina Work Phone: [facility] Start: 05-19-2022 Non-patient / Non-visit Dr. Misael Molina Work Phone: [facility] Start: 05-19-2022 Non-patient / Non-visit Dr. Misael Molina Work Phone: [facility] Start: 05-19-2022 Non-patient / Non-visit Dr. Misael Molina Work Phone: [facility] Start: 05-18-2022 End: 05-31-2022 Non-patient / Non-visit Dr. Misael Molina Work Phone: [facility] Start: 05-18-2022 End: 05-31-2022 Evaluation and management of inpatient [facility] Procedures Date Procedure Procedure Detail Performing Clinician Start: 06-24-[address] Misael hilliard MD Work Phone: Start: 06-24-[address] Misael Molina MD Work Phone: Start: 12-14-2023 CT of chest without contrast [...] Molina Work Phone: Urine culture Dr. Misael connolly Work Phone: Urine culture Dr. Misael connolly Work Phone: Viral antigen assay Dr. Misael Molina Work Phone: Viral antigen assay Dr. Misael Molina Work Phone: Plan of Treatment Date Care Activity Detail Author Start: 06-30-2025 ambulatory Ambulatory Facility:[facility] Start: 06-24-2025 Admission procedure [facility] Start: 06-24-2025 [facility] Start: 06-24-2025 Hospital admission, emergency, from emergency room, medical nature [facility] Start: 06-24-2025 Administration of blood product [facility] Start: 06-24-2025 Measurement of occult blood in stool specimen using immunoassay [facility] Start: 06-24-2025 End: 06-24-2025 [facility] Start: 11-24-2024 Colonoscopy w/biopsy single/multiple COLONOSCOPY AND BIOPSY [facility] Start: 11-24-2024 Egd transoral biopsy single/multiple EGD BIOPSY SINGLE/MULTIPLE [facility] Start: 11-24-2024 Patient discharge [facility] Start: 02-11-2023 Ferritin [Mass/volume] in Serum or Plasma [facility] Start: 02-11-2023 Iron and Iron binding capacity panel - Serum or Plasma [facility] Start: 01-27-2023 Procedure [facility] Start: 01-27-2023 Colonoscopy flx dx w/collj spec when pfrmd DIAGNOSTIC COLONOSCOPY [facility] Start: 01-27-2023 Egd transoral biopsy single/multiple EGD BIOPSY SINGLE/MULTIPLE [facility] Start: 01-27-2023 Patient discharge [facility] Start: 01-26-2023 [facility] Start: 08-07-2022 Blood chemistry [facility] Work Phone: Start: 08-06-2022 Development of care plan [facility] Start: 08-06-2022 Patient discharge [facility] Start: 08-05-2022 [facility] Work Phone: Start: 08-01-2022 Development of care plan [facility] Start: 08-01-2022 Referral to service [facility] Start: 08-01-2022 End: 08-01-2022 [facility] Start: 07-31-2022 Blood chemistry [facility] Work Phone: Start: 07-29-2022 [facility] Start: 07-24-2022 Blood chemistry [facility] Work Phone: Start: 07-17-2022 Blood chemistry [facility] Work Phone: Start: 07-10-2022 Blood chemistry [facility] Work Phone: Start: 07-03-2022 Blood chemistry [facility] Work Phone: Start: 07-01-2022 Inhalation therapy procedure [facility] Start: 06-30-2022 Blood chemistry [facility] Work Phone: Start: 06-29-2022 Administration of blood product [facility] Work Phone: Start: 06-29-2022 [facility] Work Phone: Start: 06-29-2022 Administration of blood product [facility] Start: 06-26-2022 Following clinical pathway protocol [facility] Start: 06-26-2022 Consultation [facility] Start: 06-25-2022 [facility] Start: 06-20-2022 Oxygen therapy [facility] Start: 06-20-2022 [facility] Work Phone: Start: 06-19-2022 Development of care plan [facility] Start: 06-19-2022 Developing a treatment plan [facility] Start: 06-18-2022 Patient referral to dietitian [facility] Start: 06-18-2022 Consultation for treatment [facility] Start: 06-18-2022 Verification routine [facility] Work Phone: Start: 06-18-2022 Admission procedure [facility] Start: 06-18-2022 Measuring intake and output [facility] Start: 06-18-2022 Patient referral to dietitian [facility] Start: 06-18-2022 Referral to occupational therapist [facility] Start: 06-18-2022 Referral to service [facility] Start: 06-18-2022 Vital signs measurements [facility] Start: 06-18-2022 [facility] Start: 06-18-2022 Following clinical pathway protocol [facility] Start: 06-18-2022 Wound care [facility] Start: 06-18-2022 Electrocardiographic procedure [facility] Work Phone: Start: 06-18-2022 Removal of urinary catheter [facility] Work Phone: Start: 06-18-2022 Patient discharge [facility] Work Phone: Start: 06-18-2022 [facility] Work Phone: Start: 06-17-2022 [facility] Work Phone: Start: 06-15-2022 Care planning and problem solving actions [facility] Work Phone: Start: 06-15-2022 Removal of urinary catheter [facility] Work Phone: Start: 06-15-2022 [facility] Work Phone: Start: 06-14-2022 Introduction of urinary catheter [facility] Work Phone: Start: 06-13-2022 [facility] Work Phone: Start: 06-11-2022 Catheterization of vein [facility] Work Phone: Start: 06-10-2022 [facility] Work Phone: Start: 06-10-2022 Consultation for treatment [facility] Work Phone: Start: 06-08-2022 Incentive spirometry [facility] Work Phone: Start: 06-08-2022 End: 06-08-2022 Blood culture [facility] Work Phone: Start: 06-08-2022 End: 06-08-2022 [facility] Work Phone: Start: 06-08-2022 Consultation [facility] Work Phone: Start: 06-08-2022 Physiotherapy of chest [facility] Work Phone: Start: 06-07-2022 Referral to occupational therapist [facility] Work Phone: Start: 06-07-2022 Referral to service [facility] Work Phone: Start: 06-06-2022 Administration of blood product [facility] Work Phone: Start: 06-06-2022 Assessment of risk of venous thromboembolism [facility] Work Phone: Start: 06-06-2022 Care regimes management [facility] Work Phone: Start: 06-06-2022 Consultation [facility] Work Phone: Start: 06-06-2022 Insertion of catheter into peripheral vein [facility] Work Phone: Start: 06-06-2022 Measuring intake and output [facility] Work Phone: Start: 06-06-2022 Notification of physician [facility] Work Phone: Start: 06-06-2022 Oxygen therapy [facility] Work Phone: Start: 06-06-2022 Providing care according to standard [facility] Work Phone: Start: 06-06-2022 Referral to gastroenterology service [facility] Work Phone: Start: 06-06-2022 Vital signs measurements [facility] Work Phone: Start: 06-06-2022 [facility] Work Phone: Start: 06-06-2022 Referral to service [facility] Work Phone: Start: 06-06-2022 Admission procedure [facility] Work Phone: Start: 06-06-2022 Following clinical pathway protocol [facility] Work Phone: Start: 06-06-2022 Administration of blood product [facility] Work Phone: Start: 06-06-2022 Esophagogastroduodenoscopy EGD ([facility] [place] [place]) (Not Applicable) [facility] Work Phone: Start: 06-06-2022 [facility] Work Phone: Start: 06-06-2022 Catheterization of vein [facility] Work Phone: Start: 06-06-2022 Leukocyte reduced red blood cells [facility] Work Phone: Start: 06-06-2022 End: 06-06-2022 Blood culture [facility] Work Phone: Start: 06-06-2022 [facility] Work Phone: Start: 06-06-2022 Inhalation therapy procedure [facility] Work Phone: Start: 06-06-2022 Patient referral to dietitian [facility] Work Phone: Start: 06-03-2022 Emergency dept visit high severity&threat funcj EMERGENCY DEPT VISIT [facility] Work Phone: Start: 06-03-2022 [facility] Work Phone: Start: 05-31-2022 Patient discharge [facility] Work Phone: Start: 05-28-2022 [facility] Work Phone: Start: 05-24-2022 [facility] Work Phone: Start: 05-24-2022 Continuous pulse oximetry [facility] Work Phone: Start: 05-24-2022 [facility] Work Phone: Start: 05-22-2022 Care planning and problem solving actions [facility] Work Phone: Start: 05-20-2022 [facility] Work Phone: Start: 05-19-2022 Care planning and problem solving actions [facility] Work Phone: Start: 05-19-2022 Consultation [facility] Work Phone: Start: 05-18-2022 Following clinical pathway protocol [facility] Work Phone: Start: 05-18-2022 Application of intermittent pneumatic compression device [facility] Work Phone: Start: 05-18-2022 Ambulation without limitation [facility] Work Phone: Start: 05-18-2022 Assessment of risk of venous thromboembolism [facility] Work Phone: Start: 05-18-2022 Catheterization of vein [facility] Work Phone: Start: 05-18-2022 Consultation [facility] Work Phone: Start: 05-18-2022 Elevation of head of bed [facility] Work Phone: Start: 05-18-2022 Incentive spirometry [facility] Work Phone: Start: 05-18-2022 Inhalation therapy procedure [facility] Work Phone: Start: 05-18-2022 Insertion of catheter into peripheral vein [facility] Work Phone: Start: 05-18-2022 Measuring intake and output [facility] Work Phone: Start: 05-18-2022 Medication education [facility] Work Phone: Start: 05-18-2022 Oxygen therapy [facility] Work Phone: Start: 05-18-2022 Patient education [facility] Work Phone: Start: 05-18-2022 Providing care according to standard [facility] Work Phone: Start: 05-18-2022 Referral to occupational therapist [facility] Work Phone: Start: 05-18-2022 Referral to service [facility] Work Phone: Start: 05-18-2022 [facility] Work Phone: Start: 05-18-2022 Care regimes management [facility] Work Phone: Start: 05-18-2022 Notification of physician [facility] Work Phone: Start: 05-18-2022 Verification routine [facility] Work Phone: Start: 05-18-2022 End: 05-18-2022 Blood culture [facility] Work Phone: Start: 05-18-2022 Troponin I measurement [facility] Work Phone: Start: 05-18-2022 Influenza virus A and B and SARS-CoV-2 (COVID-19) Ag panel - Upper respiratory specim [facility] Work Phone: Start: 05-18-2022 End: 05-18-2022 [facility] Work Phone: Start: 05-18-2022 Viral nucleic acid assay [facility] Work Phone: Start: 05-18-2022 Admission procedure [facility] Work Phone: Start: 05-18-2022 End: 05-19-2022 [facility] Work Phone: Start: 05-18-2022 Patient referral to dietitian [facility] Work Phone: Alanine aminotransfe rase [Enzymatic activity/volume] in Serum or Plasma [facility] Work Phone: Albumin [Mass/volume ] in Serum or Plasma [facility] Work Phone: Alkaline phosphatase [Enzymatic activity/volume] in Serum or Plasma [facility] Work Phone: Angiotensin converti ng enzyme [Enzymatic activity/volume] in Serum or Plasma [facility] Antibody to lupus La protein measurement [facility] Antibody to SS-A measurement [facility] Aspartate aminotrans ferase [Enzymatic activity/volume] in Serum or Plasma [facility] Work Phone: Bacteria identified in Blood by Culture Blood Culture [facility] Work Phone: Bacteria identified in Urine by Culture Urine Culture [facility] Work Phone: Bilirubin measurement, urine [facility] Bilirubin, total measurement [facility] Work Phone: Bilirubin.direct [Ma ss/volume] in Serum or Plasma [facility] Work Phone: Blood culture [facility] Work Phone: Complete blood count [facility] Cyclic citrullinated peptide IgG Ab [Units/volume] in Serum or Plasma [facility] DNA double strand Ab [Units/volume] in Serum [facility] Evaluation of diagno stic study results [facility] Fungal Culture Fungal Culture [facility] Work Phone: Hemoglobin [Presence] in Urine [facility] Hemoglobin A1c/Hemog lobin.total in Blood [facility] Work Phone: Iron [Mass/mass] in Unspecified specimen [facility] Iron saturation [Mas s Fraction] in Serum or Plasma [facility] Lactic acid measurement [facility] Work Phone: Magnesium [Mass/volu me] in Serum or Plasma [facility] Work Phone: Measurement of Asper gillus flavus antibody [facility] Work Phone: Measurement of Asper gillus fumigatus antibody [facility] Work Phone: Measurement of Asper gillus niger antibody [facility] Work Phone: Measurement of keton es in urine using dipstick [facility] Microscopic urinalysis [facility] Neutrophil cytoplasm ic Ab.classic [Units/volume] in Serum [facility] Nuclear Ab [Presence] in Serum [facility] P-ANCA measurement [facility] Patient Education ED COPD Flare ED Dehydration (Adult) [facility] Work Phone: Patient referral [facility] Work Phone: pH of Urine [facility] Procedure [facility] Radionuclide gastric emptying study [facility] Respiratory microbial culture Respiratory Culture [facility] Work Phone: [id number]-[id number] extractable n uclear Ab [Units/volume] in Serum by Immunoassay [facility] Smooth muscle Ab [Pr esence] in Serum [facility] Specific gravity of Urine [facility] Total protein measurement [facility] Work Phone: Troponin I measurement [facility] Work Phone: Troponin T.cardiac [ Mass/volume] in Serum or Plasma by High sensitivity method [facility] Urine blood test [facility] Urine culture Urine Culture [facility] Work Phone: Urine dipstick for glucose [facility] Urine dipstick for l eukocyte esterase [facility] Urine dipstick for nitrite [facility] Urine dipstick for protein [facility] Urine examination [facility] Urine microscopy: epithelial cells [facility] Urine Microscopy: white cells [facility] Urobilinogen [Presence] in Urine [facility] Immunizations Immunization Date Immunization Notes Care Provider Fa cility 07-25-2021 Covid (Pfizer) Dr. Misael hilliard Work Phone: [facility] 01-15-2021 Covid (Pfizer) Dr. Misael hilliard Work Phone: [facility] 12-25-2020 Covid (Pfizer) Dr. Misael hilliard Work Phone: [facility] 05-05-2018 tetanus toxoid, redu alessandro diphtheria toxoid, and acellular pertussis vaccine, adsorbed Dr. Misael Molina Work Phone: [facility] Payers Date Payer Category Payer Self-pay [id number] 2024 Medicare [id number] 2017 Unknown [id number] Unknown [id number] 2.16.8 [id number] Unknown [id number] 2.16.8 [id number] Unknown [id number] 2.16.8 [id number] Unknown [id number] 2.16.8 [id number] Unknown [id number] 2.16.8 [id number] Unknown [id number] 2.16.8 [id number] Unknown [id number] 2.16.8 [id number] Unknown [id number] 2.16.8 [id number] Unknown [id number] 2.16.8 [id number] Unknown [id number] 2.16.8 [id number] Social History Date Type Detail Facility Start: 05-18-2022 End: 12-10-2023 Tobacco smoking status NHIS Unknown if ever smoked [facility] Start: 1950 Sex Assigned At Female [facility] Start: 11-22-2024 End: 06-24-2025 Tobacco smoking status NHIS Ex-smoker (finding) [facility] Start: 01-31-2025 Sex Female (finding) [facility] NEGATED: Highlighted row [facility] NEGATED: Highlighted row Not [facility] Goals Date Patient Goal Desired Activity /State Functional Status Date Assessment Result Facility 08-06-2022 Functional status Up ad leonor [facility] Work Phone: 07-02-2022 Functional status Bedrest [facility] Work Phone: 06-29-2022 Functional status Activity Abili ty Unable to Assess [facility] Work Phone: 06-29-2022 Functional status Chair [facility] Work Phone: 06-18-2022 Functional status Chair [facility] Work Phone: 06-16-2022 Functional status Rolling Walker [facility] Work Phone: 05-31-2022 Functional status Chair [facility] Work Phone: Mental Status Date Assessment Result Facility 11-24-2024 Cognitive function Voice/Name [facility] Work Phone: 01-27-2023 Cognitive function Voice/Name [facility] Work Phone: 08-06-2022 Cognitive function Voice/Name [facility] Work Phone: 07-31-2022 Cognitive function Appropriate;Kathy cheney [facility] Work Phone: 07-01-2022 Cognitive function Voice/Name [facility] Work Phone: 06-29-2022 Cognitive function Voice/Name [facility] Work Phone: 06-18-2022 Cognitive function Voice/Name [facility] Work Phone: 06-06-2022 Cognitive function Voice/Name [facility] Work Phone: 05-31-2022 Cognitive function Voice/Name [facility] Work Phone: 05-18-2022 Cognitive function Level Of Cons ciousness Awake;Drowsy [facility] Work Phone: Clinical Notes 11-11-2022 to 06-24-2025 Note Date & Type Note Facility 06-24-2025 Discharge summary [facility] 06-24-2025 Consult note [facility] 06-24-2025 Consult note [facility] 06-24-2025 Discharge summary Note Date/Time June 24, 2025 5:17pm [facility] Medical Records Department [address] [place] [address] Emergency Department Summary 06/24/25 MR#: [id number] Acct: [id number] Name: RAVI BECKHAM Rep #:[id number] : 1950 75 From: Jesús abraham DO PCP: Dr. Misael Molina MD Status:REG S AL Location: [place] [address] HPI History of Present Illness Chief Complaint: GI Bleed Narrative Narrative: Chief complaint and HPI: 75-year-old female with past medical history of eosinophilic esophagitis, jejunal ulcer with previous GI bleed, CAD, atrial fibrillation on Eliquis, DM presents for evaluation of hematemesis and dark tarry stools. Patient states yesterday she developed weakness. Today had 4 episodes of hematemesis. She states she feels that they were more coffee-groundhowever her daughter in the room states one of them was bright red. She has a history of ulcers. Patient states she takes iron pills at baseline and always has slightly dark stools. She states now they are darker in color and tarry. She denies any fever, chills, shortness of breath, chest pain, abdominal pain, nausea, vomiting, dysuria. States her last dose of Eliquis was yesterday. Associated symptoms are fatigue and weakness, Review of systems: See HPI Medications: As listed on the chart Allergies: As listed on the chart PFSH: Per chart Vital signs: As listed on the chart. Reviewed. Physical exam: Gen: A&O x3 Head: Normocephalic, atraumatic Eyes: No sclera icterus, conjunctiva clear ENT: Dry mucous membranes Neck: Trachea midline, No JVD CV: tachycardic, irregular irregular rhythm, no murmurs, no peripheral edema Resp: Lungs CTA BL, no w/r/c GI: Abd soft, non-distended, non-tender, no r/r/g Rectal: Normal external examination. No evidence of hemorrhoids or fissures. Normal tone and sensation. No masses, fluctuance, or tenderness. No pain out of proportion. + Stool black and tarry Musc: Full ROM, no deformity Skin: Warm, dry, pale Neuro: Alert, oriented, grossly intact, sensation intact Psych: Cooperative, appropriate mood and affect [facility] Medical History Anxiety Bladder disease Back pain [...] fibrillation History of left heart catheterization (LHC) (~11/11/22) Atherosclerotic heart disease of [place] coronary artery without angina pectoris Abnormal stress test Type 1 diabetes Tobacco abuse Hematuria Diabetes mellitus Paroxysmal A-fib History of diabetes mellitus COVID-19 High cholesterol Diabetes Home Medications ?Medication ?Instructions ?Recorded ?Last Taken ?Type alendronate 70 mg tablet 70 mg PO MO Osteoporosis 11/23/24 History polysaccharide iron complex 150 mg 150 mg PO DAILY ane vasu 30 days #30 07/30/22 11/20/24 Rx iron capsule (Ferrex) caps cholecalciferol (vitamin D3) 50 50 mcg PO DAILY supple ment 09/23/22 11/23/24 History mcg (2,000 unit) tablet metoprolol tartrate 25 mg tablet 6.25 mg PO BIDCM afib 09/23/22 11/24/24 History metformin 1,000 mg tablet 1,000 mg PO BID 07/06/2403/12 History midodrine 5 mg tablet 10 mg PO BID blood pressure 07/06/24 11/24/24 History empagliflozin 10 mg tablet 10 mg PO DAILY 11/22/2412/13 History (Jardiance) potassium chloride 20 mEq 20 meq PO DAILY supplement 0 11/22/24 11/23/24 History tablet,extended release(part/cryst) (Klor-Con M) sertraline 25 mg tablet 25 mg PO DAILY 11/22/2404/12 History cholestyramine (with sugar) 4 gram 4 g PO BID #378 gra ms 11/24/24 Unknown Rx oral powder apixaban 5 mg tablet (Eliquis) 5 mg PO BID Faxed to [facility] 01/23/25 Unknown Rx [facility] #180 tabs atorvastatin 40 mg tablet 20 mg (1/2 x 40 mg) PO QHS 0 02/21/25 Unknown Rx Cholestrol #30 tabs Allergy/AdvReac Type Severity Reaction Status Date / Time Sulfa (Sulfonamide Allergy Unknown GI issues Verified 06/24/25 14:31 Antibiotics) Family History Uncle Heart disease Uncle Heart disease Surgical History History of cardiac catheterization Hx of esophagogastroduodenoscopy Social History household members: spouse Smoking Status: Former smoker alcohol intake: never substance use type: does not use caffeine: Yes Type: coffee Number of servings: 2 EXAM Physical Exam Const Vital Signs: 06/24/25 14:31 06/24/25 14:32 06/24/25 15:31 Temperature 98 F Temperature Source Oral Pulse Rate 162 H 164 H 122 H Respiratory Rate 18 26 H Blood Pressure 102/87 H 84/65 L Blood Pressure Mean 92 71 Blood Pressure Source Blood Pressure Position Blood Pressure Location Pulse Ox 98 92 Oxygen Delivery Method Room Air Oxygen Flow Rate (L/min) 2 06/24/25 16:00 06/24/25 16:14 06/24/25 16:29 Temperature 98.3 F 99.1 F Temperature Source Oral Oral Pulse Rate 115 H 109 H 103 H Respiratory Rate 20 H 20 H 13 Blood Pressure 110/74 115/76 107/71 Blood Pressure Mean 86 89 83 Blood Pressure Source Monitor Monitor Blood Pressure Position Semi-Fowlers Semi-Fowlers Blood Pressure Location Left Arm Left Arm Pulse Ox 100 100 100 Oxygen Delivery Method Nasal Cannula Nasal Cannula Nasal Cannula Oxygen Flow Rate (L/min) 2 2 2 06/24/25 16:44 06/24/25 16:58 Temperature 98.3 F 98.3 F Temperature Source Pulse Rate 96 96 Respiratory Rate 14 14 Blood Pressure 112/68 112/68 Blood Pressure Mean 82 Blood Pressure Source Blood Pressure Position Blood Pressure Location Pulse Ox 100 100 Oxygen Delivery Method Oxygen Flow Rate (L/min) 2 MDM MDM MDM Narrative Medical decision making narrative: 75-year-old female with past medical history of eosinophilic esophagitis, jejunal ulcer with previous GI bleed, CAD, atrial fibrillation on Eliquis, DM presents for evaluation of hematemesis and dark tarry stools. Patient states she has a previous history of GI bleed secondary to ulcer. I reviewed the previous GI note on chart review. On chart review, patient has a previous history of a GI bleed in May 2022. Was placed on PPI and octreotide drip. Was treated for acute hemorrhagic shock. Had an EGD on 06/11/2022. Showed esophagitis with 2 nonbleeding diverticulum as well as an ulcer in the jejunum. She had a repeat EGD and colonoscopy 01/2023 that showed mucosal changes suspicious for EOE and bile gastritis. November 2024 patient had EGD performed by Dr. Mcmanus. Mild Schatzki ring. Medium size hiatal hernia. Bile gastritis.Erythematous duodenopathy. She had a colonoscopy that showed rectal prolapse. Diverticulosis. Congested mucosa in the colon. Differential diagnosis includesbut is not limited to PUD, gastritis, supratherapeutic INR, dehydration, anemia,lower GI bleed, dehydration, electrolyte abnormality. On presentation, patient is tachycardic. I do suspect that her tachycardia is likely in response to her bleeding. NS bolus ordered and will monitor heart rate. Patient may need blood pending hemoglobin. Protonix bolus and Protonix drip ordered. GI bleed workupordered. Dr. Mcmanus consulted and patient was discussed. Recommend CTA abdomenand pelvis to assess if bleeding is from jejunum. This was ordered. CBC with leukocytosis of 23.5. Hemoglobin 10.4. Patient's baseline is about 12. Patient has thrombocytosis 481. Coagulation panel unremarkable. CMP without EBONIE. Patient does have elevated BUN of 51 which is consistent with upper GI bleed. No transaminitis. On reevaluation, patient's tachycardia is improving however she is hypotensive with SBP in the 80s. Concern is for hemorrhagic shock despite current hemoglobin being 10.4. Trauma blood ordered for transfusion with Rocephin. Dr. Mcmanus reconsulted and patient discussed. No need for CTA. Plan will be to take to the OR for endoscopy. No need for Eliquis reversal at this time. Patient and family confirmed understanding of the plan. Hospitalist service was contacted and patient was discussed. They accepted admission. Troponin unremarkable. BNP unremarkable. Lipase unremarkable. Lactic acid 4.9. Patient receiving blood. Patient's vitals improving with blood. No longer hypotensive. Tachycardia improved. Patient transferred to the OR. Chest x-ray and UA was not obtained prior to transfer. EKG: Interpreted by me/EM physician: EKG shows sinus tachycardia with heart rate of 136. 35 minutes of critical care time utilized in managing the patient. This is due to high probability of and deterioration of the patient based on the patient's condition and excludes any separately billable procedures. Impression: 1. Hemorrhagic shock secondary to upper GI bleed 2. Acute on chronic anemia 3. Thrombocytosis 4. History of atrial fibrillation on anticoagulation, Eliquis 5. Leukocytosis, likely reactive 6. Lactic acidosis likely secondary to #1 Lab Data Labs: Laboratory Results - last 24 hr 06/24/25 06/24/25 14:40 15:26 WBC 23.5 H RBC 3.50 L Hgb 10.4 L Hct 33.8 L MCV 96.6 MCH 29.7 MCHC 30.8 L RDW Std Deviation 51.4 H RDW Coeff of Palak 14.6 Plt Count 481 H MPV 10.8 Immature Gran % (Auto) 0.900 Neut % (Auto) 85.4 H Lymph % (Auto) 9.6 L Marquette % (Auto) 3.8 Eos % (Auto) 0.0 Baso % (Auto) 0.3 Absolute Neuts (auto) 20.1 H Absolute Lymphs (auto) 2.24 Nucleated RBC % 0 Platelet Estimate ADEQUATE RBC Morphology NORM C+C PT 14.8 INR 1.1 APTT 25.3 Sodium 139 Potassium 4.6 Chloride 100 Carbon Dioxide 18.6 L Anion Gap 21 H BUN 51 H Creatinine 0.88 Estim Creat Clear Calc 55.37 Est GFR (MDRD) Non-Af 69 BUN/Creatinine Ratio 58.1 H Glucose 217 H Lactic Acid 4.9 H* Calcium 9.6 Total Bilirubin 0.31 Direct Bilirubin 0.13 AST 22 ALT 20 Alkaline Phosphatase 71 Troponin T High Sens 12 NT pro BNP II 528 Total Protein 6.7 Albumin 4.0 Globulin 2.8 Lipase 15 Blood Type O POSITIVE Antibody Screen NEGATIVE Crossmatch See Detail Discharge Plan Triage Chief Complaint: GI Bleed ED Provider: Jesús Trejo Dx/Rx/DC Orders Primary Care Provider: Misael Molina What to do if you have Problems For any increased pain, shortness of breath, bleeding, nausea or vomiting, chestpain, or any unexpected problems, contact your Primary Care Provider. Call [facility] ([phone]) or report to the closest Emergency Room. Call 911 if necessary. 06/24/25 1717 <Electronically signed by Jesús Trejo DO> Cosigner Signature (if applicable): CC: Dr. Misael Molina MD ~ Signed [facility] Work Phone: 1(815) 189-470108-29-2025 Evaluation note* Diagnosis Onset Date Resolution Status Admit Date Anticoagulant long-term use acute June 16, 2025 11:20am CAD (coronary artery disease) acute June 16, 2025 11:20am Paroxysmal A-fib acute May 202024 11:20am [facility] Work Phone: 1(950) 803-659808-29-2025 Evaluation note* Diagnosis Onset Date Resolution Status Admit Date Anticoagulant long-term use acute June 16, 2025 11:20am CAD (coronary artery disease) acute June 16, 2025 11:20am Paroxysmal A-fib acute May 202024 11:20am GI bleed chronic June 24, 2025 5:02pm Acute upper gastrointestinal bleeding resolved June 24 5:02pm [facility] Work Phone: 1(797) 830-338202-06-2025 Evaluation note* Diagnosis Onset Date Resolution Status Admit Date Eosinophilic esophagitis chronic November 24, 2024 5:36am GI bleed chronic November 24, 2024 5:36am [facility] Work Phone: 1(329) 313-349402-06-2025 [facility] Medical Records Department [address] [place] [address] History Physical Exam 11/24/24 0656 MR#: [id number] Acct: [id number] Name: RAVI BECKHAM Rep #: [id number] : 1950 74 From: Maurilio Friend DO PCP: Dr. Misael Molina MD Status:[facility] Location: [place] [address] HPI - General General Date of Admission: 11/24/24 Date of Service: 11/24/24 Chief Complaint: Gastric ulcer HPI Narrative RAVI BECKHAM, is a 74 F who presents for endoscopic surviallence of gastric ulcer PMH DM 1; CAD; hyperlipidemia; encephalopathy; a.Fib [facility] Hospitalization 05.18.22-8 for COVID with legionella pne, respiratory failure. Discharged to SNF. [facility] ED 06.03.22 with SOB and hypoxia. *[facility] hospitalization 06.06.22-06.18.22 with transfer to TCU until [...] non bleeding crater ulcer in jejunum. OV 1..23 with recommendation to continue PPI. Repeat EGD [...] feel pantoprazole is controlling this well. [facility] Medical History Anxiety Bladder disease Back pain [...] (LHC) ( 11/11/22) Atherosclerotic heart disease of [place] coronary artery without angina pectoris Abnormal stress [...] History Uncle Heart di (more content not included)...[facility] 01-27-2023 Procedure [facility]04-11-2023 Procedure note [facility]04-11-2023 Procedure [facility] 01-27-2023 Procedure [facility]01-24-2023 History and physical note Author Dr. Daniels [facility] November 11, 2022 7:58am Note Date/Time November 10, 2022 3 :48pm [facility] Medical Records Department [address] [place] [address] History & Physical Exam 11/10/22 1545 MR#: [id number] Acct: [id number] Name: RAVI BECKHAM Rep #:[id number] : 1950 72 From: Misael Daniels MD PCP: Dr. Misael Molina MD Status:REG S DC Location: [facility] History and Physical Date of Admission: 11/11/22 [facility] [address] [place] [address] MR#: [id number] Acct: [id number] Name:? RAVI BECKHAM Rep #: [id number] : 1950 Provider: Dr. Misael Daniels MD Age/Sex:? 72/F ?[place] [facility] Signed [facility] History of Present Illness Details: This is a 72-year-old white female who presents for outpatient cardiovascular consultation based upon concerns of trolled fibrillation, and abnormal chest CT scan commenting on underlying atherosclerotic coronary artery disease, hyperlipidemia, superimposed upon tobacco abuse.? She spent a long period of time (approximately 2 months) based upon her recollection and her daughter's recollection-who is with her today at [facility] in both the acute care and [...] ? ? Auscultation Intake Visit Reasons:?A-FIB/REF. TRACY Installation Supervisor Required: No Accompanied by: Daughter Allergies Sulfa [...] Daniels MD; Dr. Misael Molina MD~ Signed [facility] Work Phone: Consult note Author Angelo Bonds [facility] Note Date/Time June 24, 2025 4:58pm [facility] Medical Records Department [address] [place] [address] Pre-Anesthesia Evaluation 06/24/25 1657 MR#: [id number] Acct: [id number] Name: RAVI BECKHAM Rep #:[id number] : 1950 75 From: Angelo Bonds MD PCP: Dr. Misael Molina MD Status:REG E R Y Race: C Location: ED ASA Classification* ASA Classification ASA Classification: 3 and E Assessment & Plan Anesthesia* Anesthesia Assessment Anesthesia Assessment: Discussed sedation and/or anesthesia options, risks, benefits, and alternatives with patient/parents/legal guardian/POA. Questions invited. The patient/parents/legal guardian/POA seems to understand and agrees to proceedwith anesthesia plan. Reviewed the physical assessment, medical history, allergy history and patient home medications list prior to surgery/procedure/anesthetic and documented any changes. Performed airway and anesthesia risk assessments. Anesthesia Type Anesthesia Type: General Anesthesia Focused Assessment* Temperature: 98.3 F Pulse Rate: 96 Blood Pressure: 112/68 Respiratory Rate: 14 Pulse Ox: 100 Oxygen Flow Rate (L/min): 2 Airway Assessment Mouth opens: >3 cm Mallampati Score: II Labs Anesthesia Preop lab: CBC WBC 23.5 K/mm3 (4.4-11.0) H 06/24/25 14:40 5 RBC 3.50 M/mm3 (4.2-5.4) L 06/24/25 14:40 06/24/25 Hgb 10.4 g/dL (12.0-15.0) L 06/24/25 14:40 5 Hct 33.8 % (37-47) L 06/24/25 14:40 06/24/25 Plt Count 481 K/mm3 (150-450) H 06/24/25 14:40 06/24/25 CHEMISTRY Potassium 4.6 mmol/L (3.3-5.1) 06/24/25 14:40 06/24/25 Sodium 139 mmol/L (133-145) 06/24/25 14:40 06/24/25 Magnesium 2.1 mg/dL (1.6-2.6) 06/18/22 05:31 06/18/22 Phosphorus 2.6 mg/dL (2.5-4.9) 06/18/22 05:31 06/18/22 BUN 51 mg/dL (4-19) H 06/24/25 14:40 06/24/25 Creatinine 0.88 mg/dL (0.70-1.20) 06/24/25 14:40 06/24/25 Glucose 217 mg/dL (70-99) H 06/24/25 14:40 06/24/25 POC Glucose 206 mg/dL (74-106) H 11/24/24 06:04 11/24/24 TSH 0.22 uIU/mL (0.358-3.74) L 05/19/22 05:05 08/0 11/09 COAG PT 14.8 SECONDS (11.7-14.9) 06/24/25 14:40 Pre-Assessment Diagnosis/Proposed Procedure Planned Operative Procedure(s): EGD for acute upper bleed Anesthesia History Anesthesia History - manager of training and development: Anesthesia History - manager of training and development Hx Hospitalization No 11/22/24 10:23 Any Problems With Anesthesia No 11/22/24 10:23 Cholinesterase deficiency No 11/22/24 10:23 You/Your Family Experience No 11/22/24 10:23 fever (hyperthermia) with Relationship Recent Exposure to Contagious No 11/24/24 06:02 Disease Does patient have nerve No 11/22/24 [...] take am of surgery PONV PONV - manager of training and development: PONV - manager of training and development Female HX of Motion Sickness HX of N/V After Surgery Non-Smoker Duration of Surgery greater than 60 minutes Number of Risk Factors PONV Score Height & Weight Height & Weight: Anesthesia: Height & Weight Height 5 ft 7 in 06/24/25 14:32 Weight: 68 kg 06/24/25 14:32 Body Mass Index (BMI) 23.4 06/24/25 14:32 Respiratory Assessment Respiratory Assessment - manager of training and development: Respiratory Tract Infection Hx - manager of training and development Hx Respiratory Tract Infection No 11/22/24 10:23 STOP Sleep Apnea STOP Sleep Apnea - manager of training and development: STOP Sleep Apnea - manager of training and development Hx Hypertension Yes: CONTROLLED WITH MED 11/22/24 10:23 Hx Sleep Apnea No 11/24/24 07:45 CPAP BIPAP Do you snore loudly (louder than talking or can be heard Do you often feel tired/ fatigued/ sleepy during daytime? Has anyone observed you stop breathing during sleep? STOP Results QUESTION #5 FULL TEXT : Do you snore loudly (louder than talking or can be heard through closed doors)? Tobacco Use History Tobacco Use History - manager of training and development: Tobacco Use History - manager of training and development Tobacco Use Smoking Status Former smoker 06/24/25 14:42 Hx Tobacco Use No 11/22/24 10:23 Years Smoking Packs Smoked per Day Smoking Cessation Date was Yes - quit smoking within 15 06/24/25 14:42 within the last 15 years years Hx Smoking Cessation Date 05/18/22 06/24/25 14:42 Hx Smoking Cessation No 06/24/25 14:42 Counseling Hematologic Medial History Hematologic Hx - manager of training and development: Hematologic Medical Hx - valance cutter Hx of Blood Transfusion Hx of Transfusion in last 3 Months Date of Last Transfusion (if within last 3 months) Ever experience any problems with transfusion(s)? Specify any problems Hx of Preganancy in last 3 Months Nurse Filling Out Transfusion & Questions: Date: Time: Patient unable to answer at this time (ie. confused, unrespo /Reproduction History /Reproductive History - manager of training and development: /Reproductive Hx- manager of training and development Hx Now Gestational Age (in weeks): EDC: Hx Hx Para Hx Section SAB No 11/22/24 10:23 Active Medications Active Medications: Current Medications Generic Name Dose Route Start Last Admin Trade Name Freq PRN Reason Stop Dose Admin Pantoprazole Sodium 80 mg/ 100 mls @ 10 mls/hr 06/24/25 15:10 06/24/25 16:28 Sodium Chloride CONT INF 10 mls/hr Q10H KOBE Administration PFSH Medical History Anxiety Bladder disease Back [...] fibrillation History of left heart catheterization (LHC) (~11/11/22) Atherosclerotic heart disease of [place] coronary artery without angina pectoris Abnormal stress test Type 1 diabetes Tobacco abuse Hematuria Diabetes mellitus Paroxysmal A-fib History of diabetes mellitus COVID-19 High cholesterol Diabetes Home Medications ?Medication ?Instructions ?Recorded ?Last Taken ?Type alendronate 70 mg tablet 70 mg PO MO Osteoporosis 11/23/24 History polysaccharide iron complex 150 mg 150 mg PO DAILY ane vasu 30 days #30 07/30/22 11/20/24 Rx iron capsule (Ferrex) caps cholecalciferol (vitamin D3) 50 50 mcg PO DAILY supple ment 09/23/22 11/23/24 History mcg (2,000 unit) tablet metoprolol tartrate 25 mg tablet 6.25 mg PO BIDCM afib 09/23/22 11/24/24 History metformin 1,000 mg tablet 1,000 mg PO BID 07/06/2403/12 History midodrine 5 mg tablet 10 mg PO BID blood pressure 07/06/24 11/24/24 History empagliflozin 10 mg tablet 10 mg PO DAILY 11/22/2412/13 History (Jardiance) potassium chloride 20 mEq 20 meq PO DAILY supplement 0 11/22/24 11/23/24 History tablet,extended release(part/cryst) (Klor-Con M) sertraline 25 mg tablet 25 mg PO DAILY 11/22/2404/12 History cholestyramine (with sugar) 4 gram 4 g PO BID #378 gra ms 11/24/24 Unknown Rx oral powder apixaban 5 mg tablet (Eliquis) 5 mg PO BID Faxed to [facility] 01/23/25 Unknown Rx Napoleon Dugs #180 tabs atorvastatin 40 mg tablet 20 mg (1/2 x 40 mg) PO QHS 0 02/21/25 Unknown Rx Cholestrol #30 tabs Allergy/AdvReac Type Severity Reaction Status Date / Time Sulfa (Sulfonamide Allergy Unknown GI issues Verified 06/24/25 14:31 Antibiotics) Family History Uncle Heart disease Uncle Heart disease Surgical History History of cardiac catheterization Hx of esophagogastroduodenoscopy Social History household members: spouse Smoking Status: Former smoker alcohol intake: never substance use type: does not use caffeine: Yes Type: coffee Number of servings: 2 Review of Systems (Anesthesia) ROS Narrative System reviewed and no additional complaints, except as documented. 06/24/25 6347 <Electronically signed by Angelo Bonds MD > Date _ Angelo Bonds MD Cosigner Signature: Date CC: ~ Signed [facility] Work Phone: Consult note Author Maurilio Friend [facility] Note Date/Time June 24, 2025 5:05pm [facility] Medical Records Department [address] [place] [address] Consultation - GI 06/24/25 1701 MR#: [id number] Acct: [id number] Name: RAVI BECKHAM Rep #:[id number] : 1950 75 From: Maurilio Mcmanus DO PCP: Dr. Misael Molina MD Status:REG S DC Location: [place] [address] HPI Consult Data Date of Consult: 06/24/25 HPI Narrative Reason for Consultation: GI bleed HPI Narrative: RAVI BECKHAM, is a 75 F who presents to the ED with multiple episodes of hematemesis. She has a history of atrial fibrillation and is on Eliquis. She is known to the GI service due to history of GI bleeds and history of eosinophilic esophagitis. In November 2024 she underwent an upper and lower endoscopy due to history of dysphagia and diarrhea. She was determined to have eosinophilic esophagitis and diverticular disease. She was placed on cholestyramine therapy. She has a history of iron deficiency anemia and is on iron on a chronic basis. Past history: [facility] hospitalization 06.06.22-06.18.22 with transfer to [facility] until 08.06.22. GI consulted 06.06.22 for suspected [...] non bleeding crater ulcer in jejunum. OV 1.26.23 with recommendation to continue PPI. Repeat EGD and performed screening colonoscopy. [facility] Medical History Anxiety Bladder disease Back pain [...] fibrillation History of left heart catheterization (LHC) (~11/11/22) Atherosclerotic heart disease of [place] coronary artery without angina pectoris Abnormal stress test Type 1 diabetes Tobacco abuse Hematuria Diabetes mellitus Paroxysmal A-fib History of diabetes mellitus COVID-19 High cholesterol Diabetes Home Medications ?Medication ?Instructions ?Recorded ?Last Taken ?Type alendronate 70 mg tablet 70 mg PO MO Osteoporosis 11/23/24 History polysaccharide iron complex 150 mg 150 mg PO DAILY ane vasu 30 days #30 07/30/22 11/20/24 Rx iron capsule (Ferrex) caps cholecalciferol (vitamin D3) 50 50 mcg PO DAILY supple ment 09/23/22 11/23/24 History mcg (2,000 unit) tablet metoprolol tartrate 25 mg tablet 6.25 mg PO BIDCM afib 09/23/22 11/24/24 History metformin 1,000 mg tablet 1,000 mg PO BID 07/06/2403/12 History midodrine 5 mg tablet 10 mg PO BID blood pressure 07/06/24 11/24/24 History empagliflozin 10 mg tablet 10 mg PO DAILY 11/22/2412/13 History (Jardiance) potassium chloride 20 mEq 20 meq PO DAILY supplement 0 11/22/24 11/23/24 History tablet,extended release(part/cryst) (Klor-Con M) sertraline 25 mg tablet 25 mg PO DAILY 11/22/2404/12 History cholestyramine (with sugar) 4 gram 4 g PO BID #378 gra ms 11/24/24 Unknown Rx oral powder apixaban 5 mg tablet (Eliquis) 5 mg PO BID Faxed to [facility] 01/23/25 Unknown Rx Napoleon Dustephanie #180 tabs atorvastatin 40 mg tablet 20 mg (1/2 x 40 mg) PO QHS 0 02/21/25 Unknown Rx Cholestrol #30 tabs Allergy/AdvReac Type Severity Reaction Status Date / Time Sulfa (Sulfonamide Allergy Unknown GI issues Verified 06/24/25 14:31 Antibiotics) Family History Uncle Heart disease Uncle Heart disease Surgical History History of cardiac catheterization Hx of esophagogastroduodenoscopy Social History household members: spouse Smoking Status: Former smoker alcohol intake: never substance use type: does not use caffeine: Yes Type: coffee Number of servings: 2 ROS Constitutional Constitutional: Denies fatigue, fever(s), poor appetite, weight gain or weight loss Gastrointestinal Gastrointestinal: Denies belching, bloating, change in bowel habits, change in stool character, chewing difficulty, coffee ground emesis, constipation, cramping, diarrhea, dyspepsia, dysphagia, early satiety, excessive flatus, fecalincontinence, heartburn, hematemesis, hematochezia, hemorrhoids, loose stools, melena, nausea, odynophagia, rectal bleeding, tenesmus, vomiting or weight changes Physical Exam Const alert, oriented x3, no apparent distress and healthy appearing General Appearance: cooperative GI normal to inspection, nondistended, normoactive bowel sounds, soft to palpation,non-tender and non-distended Percussion: normal to percussion Rectal Exam: deferred Lab / Micro Data 06/24/25 14:40 06/24/25 14:40 Labs: Laboratory Results - last 24 hr 06/24/25 14:40: WBC 23.5 H, RBC 3.50 L, Hgb 10.4 L, Hct 33.8 L, MCV 96.6, MCH 29.7, MCHC 30.8 L, RDW Std Deviation 51.4 H, RDW Coeff of Palak 14.6, Plt Count 481 H, MPV 10.8, Immature Gran % (Auto) 0.900, Neut % (Auto) 85.4 H, Lymph % (Auto) 9.6 L, Marquette % (Auto) 3.8, Eos % (Auto) 0.0, Baso % (Auto) 0.3, Absolute Neuts (auto) 20.1 H, Absolute Lymphs (auto) 2.24, Nucleated RBC % 0, Platelet Estimate ADEQUATE, RBC Morphology NORM C+C, PT 14.8, INR 1.1, APTT 25.3, Sodium 139, Potassium 4.6, Chloride 100, Carbon Dioxide 18.6 L, Anion Gap 21 H, BUN 51 H, Creatinine 0.88, Estim Creat Clear Calc 55.37, Est GFR (MDRD) Non-Af 69, BUN/Creatinine Ratio 58.1 H, Glucose 217 H, Calcium 9.6, Total Bilirubin 0.31, Direct Bilirubin 0.13, AST 22, ALT 20, Alkaline Phosphatase 71, Troponin T High Sens 12, NT pro BNP II 528, Total Protein 6.7, Albumin 4.0, Globulin 2.8, [id number], Blood Type O POSITIVE, Antibody Screen NEGATIVE, Crossmatch See Detail 06/24/25 15:26: Lactic Acid 4.9 H* Assessment & Plan Assessment/Plan (1) Acute upper gastrointestinal bleeding: PLAN: Upper GI bleed from unknown cause at this time. Digital diagnosis does include Sherri Bullock tear because she was coughing from Legionella, AVM, peptic ulcer disease. When she is more medically stable to be sedated we will pursue an upper endoscopy. This was explained to her daughter who is at the bedside. In the interim I will start her on a PPI drip and octreotide drip as she is transferred to the ICU. Charges/Coding Visit Charges Inpatient E&M: 43439 Init Hosp L3 06/24/25 1705 <Electronically signed by Maurilio Friend DO> Cosigner Signature (if applicable): CC: Dr. Misael Molina MD~ Signed [facility] Work Phone: Evaluation note* Diagnosis Onset Date Resolution Status Acute dehydration acute Acute hypokalemia acute Acute hyponatremia acute Atrial fibrillation with rapid ventricular response acute COVID-19 acute History of diabetes mellitus acute Lobar pneumonia acute Weakness acute [facility] Work Phone: Evaluation note* Diagnosis Onset [...] Hypotension acute Pneumonia acute COPD exacerbation chronic [facility] Work Phone: Evaluation note* Diagnosis Onset Date Resolution Status Leukocytosis [...] Atrial fibrillation with rapid ventricular response resolved [facility] Work Phone: Evaluation note* Diagnosis Onset Date Resolution Status Leukocytosis [...] acute Chronic gastritis chronic Hemorrhagic shock resolved [facility] Work Phone: Evaluation note* Diagnosis Onset [...] acute Paroxysmal A-fib acute Tobacco abuse acute [facility] Work Phone: evaluation note* Diagnosis Onset Date Resolution Status Aspergillosis, [...] acute Paroxysmal A-fib acute Tobacco abuse acute [facility] Work Phone: evaluation note* Diagnosis Onset Date Resolution Status Aspergillosis, [...] acute Adenomatous polyps acute GI bleed acute [facility] Work Phone: Evaluation note* Diagnosis Onset Date Resolution Status CAD (coronary artery disease) acute Hyperlipidemia acute Paroxysmal A-fib acute Tobacco abuse acute Adenomatous polyps acute GI bleed acute [facility] Work Phone: evaluation note* Diagnosis Onset Date Resolution Status CAD (coronary artery disease) acute Hyperlipidemia acute Paroxysmal A-fib acute Tobacco abuse acute Adenomatous polyps acute GI bleed acute CAD (coronary artery disease) acute Hyperlipidemia acute Paroxysmal A-fib acute Tobacco abuse acute [facility] Work Phone: Evaluation note* Diagnosis Onset Date Resolution Status Adenomatous polyps acute GI bleed acute CAD (coronary artery disease) acute Hyperlipidemia acute Paroxysmal A-fib acute Tobacco abuse acute [facility] Work Phone: Evaluation note* Diagnosis Onset Date Resolution Status Adenomatous polyps acute GI bleed chronic CAD (coronary artery disease) acute Hyperlipidemia acute Paroxysmal A-fib acute Tobacco abuse acute Anemia acute Eosinophilic esophagitis chr onic GI bleed chronic [facility] Work Phone: Evaluation noteNo assessment information available [facility] Work Phone: Evaluation note* Diagnosis Onset Date Resolution Status CAD (coronary artery disease) acute Hyperlipidemia acute Paroxysmal A-fib acute Tobacco abuse acute [facility] Work Phone: Evaluation note* Diagnosis Onset Date Resolution Status Anemia acute Irritable bowel syndrome with diarrhea acute Eosinophilic esophagitis chr onic GI bleed chronic [facility] Work Phone: History and physical note Author Maurilio Friend [facility] January 27, 2023 6:40am Note Date/Time January 27, 2023 6:4 0am [facility] Medical Records Department [address] [place] [address] History & Physical Exam 01/27/23 0640 MR#: [id number] Acct: [id number] Name: RAVI BECKHAM Rep #:[id number] : 1950 72 From: Maurilio Mcmanus DO PCP: Dr. Misael Molina MD Status:REG S DC Location: [place] [address] History and Physical Date of Admission: 01/27/23 72 F who presents to the office today for PMH DM 1; CAD; hyperlipidemia; encephalopathy; a.Fib [facility] Hospitalization 05.18.22-05.31.22 for COVID with legionella pne, respiratory failure. Discharged to SNF. [facility] ED 06.03.22 with SOB and hypoxia. [facility] hospitalization 06.06.22-06.18.22 with transfer to TCU until [...] Appearance: average body habitus and well nourished HENMT Head: normal to inspection Ears: hearing grossly [...] Affect: normal affect Quality Reporting Tobacco Screening ([facility] 138) Smoking Status: Former smoker Assessment and [...] Misael Molina MD; Maurilio Mcmanus DO~ Signed [facility] Work Phone: [facility]: Reason for referral (narrative)No reason for referral information availableWSamaritan Hospital Work Phone: Chief Complaint and Reason [...] for Visit Admit Date Eosinophilic esophagitis November 24 5:36am GI bleed November 24, 2024 5 :36am Chief Complaint Admit Date 9 M FU June 16, 2025 11 :20am Reason for Visit Admit Date Anticoagulant long-term use June 16, 2025 11:20am CAD (coronary artery disease) May 11:20am Paroxysmal A-fib June 16, 2025 11 :20am Chief Complaint Admit Date 9 M FU June 16, 2025 11 :20am GI BLEED June 24, 2025 5:01pm GI BLEED June 24, 2025 5:02pm Reason for Visit Admit Date Anticoagulant long-term use June 16, 2025 11:20am CAD (coronary artery disease) May 11:20am Paroxysmal A-fib June 16, 2025 11 :20am GI bleed June 24, 2025 5:02pm Acute upper gastrointestinal bleeding Se pt2024 5:02pm Advance Directives Advance Directive Response Recorded Date/ Time Living Will No May 18, 2022 4:28pm Power of Admissions Dean No May 18 4:28pm Advance Directive Response Recorded Date/ Time Living Will No June 06 2:16pm Power of Admissions Dean No June 06 2:16pm Advance Directive Response Recorded Date/ Time Living Will No June 06 8:50pm Power of Admissions Dean No June 06 8:50pm Advance Directive Response Recorded Date/ Time Living Will No June 19 4:12pm Power of Admissions Dean No June 19, 2022 4:12pm Advance Directive Response Recorded Date/ Time Living Will No June 19 3:12pm Power of Admissions Dean No June 19, 2022 3:12pm Advance Directive Response Recorded Date/ Time Advance Directives on File No 2022 8:00am Name of Medical Power of Admissions Dean Brandon (Daughte r) November 11, 2022 8:00am Advance Directives Yes November 11, 2022 8:00am Living Will Yes November 11 8:00am Power of Admissions Dean Yes November 11, 2022 8:00am Advance Directive Response Recorded Date/ Time Advance Directives on File No Juliette ry 2022 9:00am Name of Medical Power of Admissions Dean Brandon (Daughte r) November 11, 2022 9:00am Name of Medical Power of Admissions Dean DAUGHTER January 22, 2023 3:00pm Advance Directives Yes November 11, 2022 9:00am Living Will Yes January 22, 2023 3:00pm Power of Admissions Dean Yes January 22 3:00pm Advance Directive Response Recorded Date/ Time Advance Directives Yes November 11, 2022 9:00am Living Will Yes January 22, 2023 3:00pm Power of Admissions Dean Yes January 22 3:00pm Advance Directive Response Recorded Date/ Time Advance Directives Yes November 11, 2022 8:00am Living Will No July 22 12:15pm Power of Admissions Dean Yes July 22 12:15pm Advance Directive Response Recorded Date/ Time Living Will Yes November 22 11:23am Do you have a Healthcare Power of Admissions Dean? Yes November 22, 2024 11:23am Name of Medical Power of Admissions Dean DAUGHTER November 22, 2024 11:23am Advance Directives Yes November 11, 2022 9:00am Advance Directive Response Recorded Date/ Time Advance Directives Yes November 11, 2022 9:00am Advance Directive Response Recorded Date/ Time Do you have a Healthcare Power of Admissions Dean? Yes June 24, 2025 2:42pm Advance Directives Yes November 11, 2022 9:00am [...] Care Provider, Referring Provider Active Lenka Ritchie [employer], [employer]ILDER-C Attending Provider Active Team Status: Inactive Member [...] 2025 End: June 16, 2025 Team Status: Active Member Role/Relationship Status Dates Dr. Misael Molina MD Primary Care Provider Active Start: June 24, 2025 Dr. Jesús Trejo DO Emergency Provider Activ e Start: June 24, 2025 Dr. Maurilio Mcmanus DO Attending Provider Active Start: June 24, 2025 Dr. Maurilio Mcmanus DO Other Provider Active St art: June 24, 2025 Team Status: Active Member Role/Relationship Status Dates Dr. Misael Molina MD Primary Care Provider Active Start: June 24, 2025 Dr. Jesús Trejo DO Emergency Provider Activ e Start: June 24, 2025 Dr. Maurilio Mcmanus DO Attending Provider Active Start: June 24, 2025 INFORMATION SOURCE (unrecogn ized section and content) DATE CREATED AUTHOR 06/24/2025 [facility] FOR RECORDS PERTAINING TO PATIENTS WHO ARE [...] BE BASED ON THE PRIMARY CLINICAL RECORDS. [employer] provides no warranty or guarantee of the accuracy or completeness of information in this document.
--- NOTE | 2025-06-24 19:08 | PCM.POST.ANE ---
Anesthesia: Postop Eval I Current Vital Signs Temperature: 97 F Pulse Rate: 112 Blood Pressure: 141/65 Respiratory Rate: 16 Pulse Ox: 100 Assessment Airway patent: Yes Spontaneous unlabored respirations: Yes Mental status: Awake nausea: No Vomiting: No Anesthesia Complication: No Fluid Hydration Crystalloid volume administer (ml): 500 Total IV fluid infused: 500 Progress Note Anesthesia document: Postop Eval 1 completed: Yes
--- NOTE | 2025-06-24 19:09 | PCM.POSTANE2 ---
Anesthesia Postop Eval I Sum Postop Eval Completion status Anesthesia document: Postop Eval 1 completed: Yes Anesthesia Postop Eval I Summary Anesthesia Postop Eval I Summary: Anesthesia Postop Eval I: Assessment Summary Airway patent Yes 06/24/25 19:09 Spontaneous unlabored Yes 06/24/25 19:09 respirations Mental status Awake 06/24/25 19:09 nausea No 06/24/25 19:09 Vomiting No 06/24/25 19:09 Anesthesia Postop Eval I: Fluid Summary Crystalloid volume administer 500 06/24/25 19:09 (ml) Colloids volume administered ( ml) Blood Product volume administered (ml) Total IV fluid infused 500 06/24/25 19:09 Anesthesia Postop Eval I: Summary Notes Anesthesia Complication No 06/24/25 19:09 Anesthesia Complication Comment: Post-operative progress note Anesthesia: Postop Eval II Evaluation Mental status: Awake Pain Level: 0 nausea: No Vomiting: No
--- NOTE | 2025-06-24 19:17 | EKG12_ITS ---
Test Reason : tachycardia Blood Pressure : */* mmHG Vent. Rate : 160 BPM Atrial Rate : * BPM P-R Int : * ms QRS Dur : 70 ms QT Int : 284 ms P-R-T Axes : * 58 213 degrees QTcB Int : 463 ms Critical Test Result: High HR Atrial fibrillation with rapid ventricular response ST & T wave abnormality, consider inferior ischemia ST & T wave abnormality, consider anterolateral ischemia Abnormal ECG When compared with ECG of 24-Jun-2025 15:19, MANUAL COMPARISON REQUIRED DATA IS UNCONFIRMED Confirmed by Aniket Cheema ([id number]), editor continuity and script LAZARUS RATLIFF ([id number]) on 06/26/2025 10:13:18 AM Referred By: Michel Confirmed By: Aniket Cheema
[2025-06-24 19:34] LABS: Reflex Lactate? Y
[2025-06-24 19:55] LABS: Hematocrit 30.6 % (37-47); Hemoglobin 10.2 g/dL (12.0-15.0)
[2025-06-24] MEDS: Ceftriaxone 2 GM in 0.9% Normal Saline (50mL MB+) 50 ML IV (19:55)
[2025-06-24] MEDS: 0.9% Normal Saline (1000mL) 1,000 ML 75 ML IV (19:56)
[2025-06-24] MEDS: 0.9% Saline Lock 10 ML Syringe IV (19:57)
--- NOTE | 2025-06-24 20:26 | PCM.HOSP.N ---
Hospitalist Note After an episode of vomiting patient developed rapid heart rate of 160s, EKG read as A-fib but it was difficult to tell given the rate so patient given dose of IV Lopressor and slow down in the 130s, patient was A-fib, heart rate stable, give another dose of IV Lopressor and scheduled metoprolol, awaiting home med rec updated, list metoprolol but will need to clarify if patient is still taking, either way given her A-fib with RVR patient will need rate control
[2025-06-25] VITALS (23 sets, daily range): BP systolic 92–132; BP diastolic 44–119; PULSE 77–96; RESP 16–22; TEMP 36.5–37.1; O2SAT 92–100; BMI 23.4
[2025-06-25] MEDS: Pantoprazole Sodium 80 MG in 0.9% Normal Saline (100mL Bag) 80 ML 10 MG CONT INF (01:50)
[2025-06-25] MEDS: 0.9% Saline Lock 10 ML Syringe IV (01:50)
[2025-06-25 06:16] LABS: Hematocrit 32.3 % (37-47); Hemoglobin 10.6 g/dL (12.0-15.0); Immature Granulocytes Count 0.110 X10^3/uL (0.0-0.0); Mean Corp Hgb Conc 32.8 g/dL (32-36); Mean Corpuscular Volume 92.6 fL (81-99); Mean Platelet Vol. 10.1 fl (6.2-12.0); NRBC Flagged by Analyzer 0 % (0-5); Platelet Count 345 K/mm3 (150-450); RBC Distribution Width CV 15.1 % (11.6-14.6); RBC Distribution Width SD 50.4 fl (35.1-43.9); Red Blood Count 3.49 M/mm3 (4.2-5.4); White Blood Count 20.6 K/mm3 (4.4-11.0)
[2025-06-25 06:31] LABS: Anion Gap 12 (5-15); BUN 36 mg/dL (4-19); BUN/Creat Ratio 54.6 RATIO (10-20); Calcium,Total 7.9 mg/dL (7.6-11.0); Carbon Dioxide 21.6 mmol/L (21.0-32.0); Chloride 109 mmol/L (98-108); Estimated Creatinine Clearance 60.90 ml/min (50-250); Glucose 101 mg/dL (70-99); Potassium 3.7 mmol/L (3.3-5.1)
--- NOTE | 2025-06-25 08:15 | PN.HOSP_ITS ---
Reason for Visit Chief Complaint: Vomiting blood and dark tarry stools Objective Data Objective Data Vital Signs: Vital Signs Temp Pulse Resp BP Pulse Ox O2 Del Method O2 Flow Rate 98.2 F 81 19 H 101/68 99 Room Air 2 06/25/25 08:00 06/25/25 08:00 06/25/25 08:00 06/25/25 08:00 06/25/25 08:00 06/25/25 08:00 06/25/25 06:00 Oxygen Flow Rate (L/min) 2 Oxygen Delivery Method Room Air Weight: 149 lb 4.047 oz Body Mass Index (BMI) 23.4 Intake & Output: Intake and Output for Last 24 Hours 06/23/25 06/24/25 06/25/25 23:59 23:59 23:59 Intake Total 1557.33 / 1557.33 93.67 / 93.67 Output Total 175 / 175 Balance 1557.33 / 1557.33 -81.33 / -81.33 Lab / Micro Data 06/25/25 05:33 06/25/25 05:33 Labs: Laboratory Results - last 24 hr 06/24/25 14:40: WBC 23.5 H, RBC 3.50 L, Hgb 10.4 L, Hct 33.8 L, MCV 96.6, MCH 29.7, MCHC 30.8 L, RDW Std Deviation 51.4 H, RDW Coeff of Palak 14.6, Plt Count 481 H, MPV 10.8, Immature Gran % (Auto) 0.900, Neut % (Auto) 85.4 H, Lymph % (Auto) 9.6 L, [place] % (Auto) 3.8, Eos % (Auto) 0.0, Baso % (Auto) 0.3, Absolute Neuts (auto) 20.1 H, Absolute Lymphs (auto) 2.24, Nucleated RBC % 0, Platelet Estimate ADEQUATE, RBC Morphology NORM C+C, PT 14.8, INR 1.1, APTT 25.3, Sodium 139, Potassium 4.6, Chloride 100, Carbon Dioxide 18.6 L, Anion Gap 21 H, BUN 51 H, Creatinine 0.88, Estim Creat Clear Calc 55.37, Est GFR (MDRD) Non-Af 69, B UN/Creatinine Ratio 58.1 H, Glucose 217 H, Calcium 9.6, Total Bilirubin 0.31, Direct Bilirubin 0.13, AST 22, ALT 20, Alkaline Phosphatase 71, Troponin T High Sens 12, NT pro BNP II 528, Total Protein 6.7, Albumin 4.0, Globulin 2.8, Lipase 15, Blood Type O POSITIVE, Antibody Screen NEGATIVE, Crossmatch See Detail 06/24/25 15:26: Lactic Acid 4.9 H* 06/24/25 19:44: Hgb 10.2 L, Hct 30.6 L, Lactic Acid 2.5 H* 06/24/25 20:29: POC Glucose 147 H 06/24/25 23:11: POC Glucose 108 H 06/25/25 05:05: POC Glucose 93 06/25/25 05:33: WBC 20.6 H, RBC 3.49 L, Hgb 10.6 L, Hct 32.3 L, MCV 92.6, MCH 30.4, MCHC 32.8 D, RDW Std Deviation 50.4 H, RDW Coeff of Palak 15.1 H, Plt Count 345, MPV 10.1, Immature Gran % (Auto) 0.500, Neut % (Auto) 70.7 H, Lymph % (Auto) 21.6, [place] % (Auto) 6.4, Eos % (Auto) 0.5, Baso % (Auto) 0.3, Absolute Neuts (auto) 14.6 H, Absolute Lymphs (auto) 4.45, Nucleated RBC % 0, Sodium 142, Potassium 3.7, Chloride 109 H, Carbon Dioxide 21.6, Anion Gap 12, BUN 36 H, C reatinine 0.65 L, Estim Creat Clear Calc 60.90, Est GFR (MDRD) Non-Af 93, B UN/Creatinine Ratio 54.6 H, Glucose 101 H, Calcium 7.9 Physical Exam Narrative Seen and examined. Patient is feeling weak and looks pale. No acute chest pain or shortness of breath. Had EGD yesterday. Physical exam General: Alert, Oriented x3, Cooperative. BMI 23.4 kg/m? HEENT: Atraumatic, PERRLA, EOMI, Normocephalic. Oral: No Gingival or Mucosal Lesions/ Ulcerations Neck: Supple, No JVD, Negative Carotid Bruits Chest wall/Lungs: Air entry diminished in bilateral lung bases. No crepitation/rhonchi Cardiovascular: Regular rate and rhythm, Normal S1,S2, systolic murmur Abdomen: Bowel Sounds Present, Soft, Non Tender, Non-Distended : No dysuria. No renal angle tenderness. No suprapubic tenderness. Extremities: No edema, Capillary Refill Less than 3 Seconds Skin: No rashes, No breakdown Musculoskeletal: No Tenderness to Palpation of Joints or Extremities Neurological: Cranial nerves II-XII grossly intact, DTR 2+/4. No acute focal neurological deficit. Psych/Mental Status: Normal Affect, Appropriate. Assessment & Plan Assessment/Plan (1) GI bleed: PLAN: Plan 75-year-old female was admitted for hematemesis and dark tarry stool/melena. Her other day before admission she felt very weak and then on day of admission 4 episodes of hematemesis, coffee-ground color she also had black tarry stool. She has a known history of eosinophilic esophagitis, duodenal ulcer and previous GI bleed and chronic anemia on iron supplement. Patient has A-fib on Eliquis # Acute GI bleed, suspect upper most likely due to melena VS tear: History and labs suggestive of acute upper GI bleed elevated BUN/creatinine ratio and and a 2 g drop in hemoglobin from 06/16/2025 - PPI drip -Received 1 unit of trauma blood in the ED and vitals have stabilized -Patient typed and screened -GI was consulted. Had emergent EGD on 06/24/2025 EGD: Impressions : - Ena-Bullock tear. Injected. Clips were placed. Treated with argon plasma coagulation (APC). - Red blood in the entire stomach. - Hematin (altered blood/iajhfj-swsami-fsxr material) in the stomach. - No gross lesions in the entire examined duodenum. - No specimens collected. Currently on clear liquid advance to full liquid diet. Hemoglobin admitting 10.4, similar to 10.6 today. Baseline varies between 11 to 12 g%. -Hold home Eliquis # High anion gap metabolic acidosis -Bicarb 18 with an anion gap of 21 -Lactic acid of 4.9, suspect secondary to acute GI bleed, patient was also very tachycardic into the 160s and at 1 point hypotensive as well - Vitals improved with trauma blood Patient was resuscitated with IV fluid # Lower back pain -Patient without any alarm symptoms, suspect she fell due to weakness and the GI bleed started yesterday -No pain on palpation of lower back -Will schedule Tylenol and order lidocaine patch #Type 2 diabetes mellitus -Glucose checks and sliding scale insulin. Admitting glucose 217. Today 101. on-Hold home oral hypoglycemics #Paroxysmal Atrial Fibrillation -Rate control: Metoprolol held given hypotension. Anticoagulation on hold. 06/25: Blood pressure still soft 92/80. Continue holding antihypertensive medicati #Hx of CAD -Per chart review -Continue home statin, Eliquis held #Depression/anxiety -Continue home medications #DVT ppx: SCDs Laboratory Results 06/24/25 14:40: WBC 23.5 H, RBC 3.50 L, Hgb 10.4 L, Hct 33.8 L, MCV 96.6, MCH 29.7, MCHC 30.8 L, RDW Std Deviation 51.4 H, RDW Coeff of Palak 14.6, Plt Count 481 H, MPV 10.8, Immature Gran % (Auto) 0.900, Neut % (Auto) 85.4 H, Lymph % (Auto) 9.6 L, [place] % (Auto) 3.8, Eos % (Auto) 0.0, Baso % (Auto) 0.3, Absolute Neuts (auto) 20.1 H, Absolute Lymphs (auto) 2.24, Nucleated RBC % 0, Platelet Estimate ADEQUATE, RBC Morphology NORM C+C, PT 14.8, INR 1.1, APTT 25.3, Sodium 139, Potassium 4.6, Chloride 100, Carbon Dioxide 18.6 L, Anion Gap 21 H, BUN 51 H, Creatinine 0.88, Estim Creat Clear Calc 55.37, Est GFR (MDRD) Non-Af 69, B UN/Creatinine Ratio 58.1 H, Glucose 217 H, Calcium 9.6, Total Bilirubin 0.31, Direct Bilirubin 0.13, AST 22, ALT 20, Alkaline Phosphatase 71, Troponin T High Sens 12, NT pro BNP II 528, Total Protein 6.7, Albumin 4.0, Globulin 2.8, Lipase 15, Blood Type O POSITIVE, Antibody Screen NEGATIVE, Crossmatch See Detail 06/24/25 15:26: Lactic Acid 4.9 H* 06/24/25 19:44: Hgb 10.2 L, Hct 30.6 L, Lactic Acid 2.5 H* 06/24/25 20:29: POC Glucose 147 H 06/24/25 23:11: POC Glucose 108 H 06/25/25 05:05: POC Glucose 93 06/25/25 05:33: WBC 20.6 H, RBC 3.49 L, Hgb 10.6 L, Hct 32.3 L, MCV 92.6, MCH 30.4, MCHC 32.8 D, RDW Std Deviation 50.4 H, RDW Coeff of Palak 15.1 H, Plt Count 345, MPV 10.1, Immature Gran % (Auto) 0.500, Neut % (Auto) 70.7 H, Lymph % (Auto) 21.6, [place] % (Auto) 6.4, Eos % (Auto) 0.5, Baso % (Auto) 0.3, Absolute Neuts (auto) 14.6 H, Absolute Lymphs (auto) 4.45, Nucleated RBC % 0, Sodium 142, Potassium 3.7, Chloride 109 H, Carbon Dioxide 21.6, Anion Gap 12, BUN 36 H, C reatinine 0.65 L, Estim Creat Clear Calc 60.90, Est GFR (MDRD) Non-Af 93, B UN/Creatinine Ratio 54.6 H, Glucose 101 H, Calcium 7.9 Charges/Coding Visit Charges Inpatient E&M: 61370 Subs Hosp L3
[2025-06-25] MEDS: Lidocaine 5% Patch 1 PATCH TOPICAL (09:46)
[2025-06-25] MEDS: 0.9% Normal Saline (1000mL) 1,000 ML 75 ML IV (09:46)
[2025-06-25] MEDS: Pantoprazole Sodium 40 MG in 0.9% Normal Saline (100mL MB+) 100 ML 300 MG IV (21:01)
[2025-06-26 02:00] VITALS: PULSE 75
[2025-06-26 04:00] VITALS: BP 104/60; PULSE 76; RESP 18; TEMP 36.6; O2SAT 94
[2025-06-26 06:36] LABS: Hematocrit 27.6 % (37-47); Hemoglobin 8.9 g/dL (12.0-15.0); Immature Granulocytes Count 0.060 X10^3/uL (0.0-0.0); Mean Corp Hgb Conc 32.2 g/dL (32-36); Mean Corpuscular Volume 92.6 fL (81-99); Mean Platelet Vol. 10.2 fl (6.2-12.0); NRBC Flagged by Analyzer 0 % (0-5); Platelet Count 282 K/mm3 (150-450); RBC Distribution Width CV 15.0 % (11.6-14.6); RBC Distribution Width SD 51.0 fl (35.1-43.9); Red Blood Count 2.98 M/mm3 (4.2-5.4); White Blood Count 12.9 K/mm3 (4.4-11.0)
[2025-06-26 07:33] LABS: Anion Gap 11 (5-15); BUN 11 mg/dL (4-19); BUN/Creat Ratio 19.7 RATIO (10-20); Calcium,Total 8.0 mg/dL (7.6-11.0); Carbon Dioxide 20.9 mmol/L (21.0-32.0); Chloride 108 mmol/L (98-108); Estimated Creatinine Clearance 60.90 ml/min (50-250); Glucose 111 mg/dL (70-99); Potassium 3.7 mmol/L (3.3-5.1)
[2025-06-26] MEDS: Pantoprazole Sodium 40 MG in 0.9% Normal Saline (100mL MB+) 100 ML 300 MG IV (07:59)
[2025-06-26 08:06] VITALS: BP 123/82; PULSE 84
[2025-06-26] MEDS: Lidocaine 5% Patch 1 PATCH TOPICAL (08:06)
--- NOTE | 2025-06-26 08:47 | DCINST_ITS ---
Discharge Instructions DC O2, CPAP, BIPAP needs Home O2 Discharge instructions: No Dressing / Incision Discharge Activity: Return to Normal Activity Weight Bearing Status: Weight bearing as tolerated Dressing / Incision Call your doctor if you observe: Fever of 101 or Higher, Coldness, Increased Pain, Numbness or Tingling, Change in Color, Inability to urinate, Inability to have a bowel movement, Shortness of breath, Dizziness, Fainting spells, Swelling in the ankles, Chest pain, Prolonged hiccupping, Increased palpitations (irregular heartbeat) and Calf discomfort Follow Up Care When: IN 2 WEEKS Test Results: Test results from this visit will be discussed in further detail at your follow- up appointment, if applicable. Discharge Plan Admission Admit Date/Time: 06/24/25 17:17 Primary Reason for Your Visit: Acute upper GI bleed Attending Provider: Filiberto Edge Primary Care Provider: Misael Molina Consulting Providers: Filiberto Edge; Maurilio Mcmanus; Noni Baker; Tamela Bailey; Anju Mitchell; Kirsten Pearson Discharge Orders/Prescriptions Prescriptions: New pantoprazole [Protonix] 40 mg tablet,delayed release (DR/EC) 40 mg PO BID Qty: 60 1RF Continued cholecalciferol (vitamin D3) 50 mcg (2,000 unit) tablet 50 mcg PO DAILY midodrine 5 mg tablet 10 mg PO BID alendronate 70 mg tablet 70 mg PO MO Patient Comments: TAKE 1 TABLET BY MOUTH ONCE A WEEK. TAKE BEFORE FOOD OR DRINK AND SIT UPRIGHT FOR 30 MINUTES AFTER TAKING polysaccharide iron complex [Ferrex 150] 150 mg iron Capsule 150 mg PO DAILY 30 Days Qty: 30 0RF Jardiance 10 mg tablet 10 mg PO DAILY potassium chloride [Klor-Con M20] 20 mEq tablet,ER particles/crystals 20 meq PO DAILY sertraline 25 mg tablet 25 mg PO DAILY atorvastatin 40 mg tablet 20 mg PO QHS Qty: 30 6RF Held metformin 1,000 mg tablet 1,000 mg PO BID Hold Instructions: hold for 2 more days Eliquis 5 mg tablet 5 mg PO BID Qty: 180 4RF Hold Instructions: Hold for 5 more days and probably start 2.5 mg twice daily after discussion with PCP Referrals / Follow Up: Misael Molina MD [Primary Care Provider] - Within 2 Weeks Friend,Maurilio, DO [Med Staff - Active Staff] - Within 1 Month Disposition Disposition (needs filled in before D/C Order can be placed): Home, Self Care
--- NOTE | 2025-06-26 08:55 | DS.PCM_ITS ---
Providers Date of Admission: 06/24/25 Date of Discharge: 06/26/25 Primary Care Physician: Dr. Misael Molina MD Consultations 06/24/25 18:39 Consult: Gastroenterology Routine Consulting Provider: [facility] Reason for Consult: GI bleed EMERGENT Consult: No MD Notified: Yes Date Notified: 06/24/25 Time Notified: 17:20 Method of Notification: ED Physician Initiated Reason For Visit: ACUTE GI BLEED Diagnosis Discharge Diagnosis (1) GI bleed: Status: Chronic Code(s): K92.2 - Gastrointestinal hemorrhage, unspecified Plan 75-year-old female was admitted for hematemesis and dark tarry stool/melena. Her other day before admission she felt very weak and then on day of admission 4 episodes of hematemesis, coffee-ground color she also had black tarry stool. She has a known history of eosinophilic esophagitis, duodenal ulcer and previous GI bleed and chronic anemia on iron supplement. Patient has A-fib on Eliquis # Acute GI bleed, suspect upper most likely due to melena VS tear: History and labs suggestive of acute upper GI bleed elevated BUN/creatinine ratio and and a 2 g drop in hemoglobin from 06/16/2025 - PPI drip -Received 1 unit of trauma blood in the ED and vitals have stabilized -Patient typed and screened -GI was consulted. Had emergent EGD on 06/24/2025 EGD: Impressions : - Ena-Bullock tear. Injected. Clips were placed. Treated with argon plasma coagulation (APC). - Red blood in the entire stomach. - Hematin (altered blood/nwryin-hgoaky-apmv material) in the stomach. - No gross lesions in the entire examined duodenum. - No specimens collected. Currently on clear liquid advance to full liquid diet. Hemoglobin admitting 10.4, similar to 10.6 today. Baseline varies between 11 to 12 g%. -Hold home Eliquis 06/26: Overall patient did well. H&H 8.9/27.6%. Prescription given for pantoprazole, ferrous sulfate and ascorbic acid. Nursing swallow screen and if that positive then will need a speech therapy consult. I think it is discomfort after EGD. Patient able to swallow soft diet. No dysphagia # High anion gap metabolic acidosis -Bicarb 18 with an anion gap of 21 -Lactic acid of 4.9, suspect secondary to acute GI bleed, patient was also very tachycardic into the 160s and at 1 point hypotensive as well - Vitals improved with trauma blood Patient was resuscitated with IV fluid # Lower back pain -Patient without any alarm symptoms, suspect she fell due to weakness and the GI bleed started yesterday -No pain on palpation of lower back Continue home regimen Tylenol #Type 2 diabetes mellitus -Glucose checks and sliding scale insulin. Admitting glucose 217. Today 101. on-Hold home oral hypoglycemics #Paroxysmal Atrial Fibrillation -Rate control: Metoprolol held given hypotension. Anticoagulation on hold. 06/25: Blood pressure still soft 92/80. Continue holding antihypertensive medicati #Hx of CAD -Per chart review -Continue home statin, Eliquis held #Depression/anxiety -Continue home medications #DVT ppx: SCDs Discharge medication reconciliation done. Discharge follow-up instructions completed. Discharge process discussed with the patient and all questions were answered to patient's satisfaction. Follow with PCP in 1 to 2 weeks Total time spent, exact 35 minutes on discharge meds reconciliation, examination, coordination of care with nurses and ancillary staff, review of imaging and blood test and discussion with the patient on follow-up instructions. Laboratory Results 06/24/25 14:40: WBC 23.5 H, RBC 3.50 L, Hgb 10.4 L, Hct 33.8 L, MCV 96.6, MCH 29.7, MCHC 30.8 L, RDW Std Deviation 51.4 H, RDW Coeff of Palak 14.6, Plt Count 481 H, MPV 10.8, Immature Gran % (Auto) 0.900, Neut % (Auto) 85.4 H, Lymph % (Auto) 9.6 L, [place] % (Auto) 3.8, Eos % (Auto) 0.0, Baso % (Auto) 0.3, Absolute Neuts (auto) 20.1 H, Absolute Lymphs (auto) 2.24, Nucleated RBC % 0, Platelet Estimate ADEQUATE, RBC Morphology NORM C+C, PT 14.8, INR 1.1, APTT 25.3, Sodium 139, Potassium 4.6, Chloride 100, Carbon Dioxide 18.6 L, Anion Gap 21 H, BUN 51 H, Creatinine 0.88, Estim Creat Clear Calc 55.37, Est GFR (MDRD) Non-Af 69, B UN/Creatinine Ratio 58.1 H, Glucose 217 H, Calcium 9.6, Total Bilirubin 0.31, Direct Bilirubin 0.13, AST 22, ALT 20, Alkaline Phosphatase 71, Troponin T High Sens 12, NT pro BNP II 528, Total Protein 6.7, Albumin 4.0, Globulin 2.8, Lipase 15, Blood Type O POSITIVE, Antibody Screen NEGATIVE, Crossmatch See Detail 06/24/25 15:26: Lactic Acid 4.9 H* 06/24/25 19:44: Hgb 10.2 L, Hct 30.6 L, Lactic Acid 2.5 H* 06/24/25 20:29: POC Glucose 147 H 06/24/25 23:11: POC Glucose 108 H 06/25/25 05:05: POC Glucose 93 06/25/25 05:33: WBC 20.6 H, RBC 3.49 L, Hgb 10.6 L, Hct 32.3 L, MCV 92.6, MCH 30.4, MCHC 32.8 D, RDW Std Deviation 50.4 H, RDW Coeff of Palak 15.1 H, Plt Count 345, MPV 10.1, Immature Gran % (Auto) 0.500, Neut % (Auto) 70.7 H, Lymph % (Auto) 21.6, [place] % (Auto) 6.4, Eos % (Auto) 0.5, Baso % (Auto) 0.3, Absolute Neuts (auto) 14.6 H, Absolute Lymphs (auto) 4.45, Nucleated RBC % 0, Sodium 142, Potassium 3.7, Chloride 109 H, Carbon Dioxide 21.6, Anion Gap 12, BUN 36 H, C reatinine 0.65 L, Estim Creat Clear Calc 60.90, Est GFR (MDRD) Non-Af 93, B UN/Creatinine Ratio 54.6 H, Glucose 101 H, Calcium 7.9 Medications at Discharge Home Medications alendronate 70 mg tablet 70 mg PO MO Osteoporosis 05/18/22 cholecalciferol (vitamin D3) 50 mcg (2,000 unit) tablet 50 mcg PO DAILY supplement 09/23/22 metformin 1,000 mg tablet 1,000 mg PO BID diabetes 07/06/24 Held on 06/26/25. Instructions: hold for 2 more days midodrine 5 mg tablet 10 mg PO BID blood pressure 07/06/24 empagliflozin 10 mg tablet (Jardiance) 10 mg PO DAILY diabetes 11/22/24 potassium chloride 20 mEq tablet,extended release(part/cryst) (Klor-Con M) 20 meq PO DAILY supplement 11/22/24 sertraline 25 mg tablet 25 mg PO DAILY depression 11/22/24 apixaban 5 mg tablet (Eliquis) 5 mg PO BID Faxed to [facility] [employer] #180 tabs 01/23/25 Held on 06/26/25. Instructions: Hold for 5 more days and probably start 2.5 mg twice daily after discussion with PCP atorvastatin 40 mg tablet 20 mg (1/2 x 40 mg) PO QHS Cholestrol #30 tabs 02/21/25 ascorbic acid (vitamin C) 1,000 mg tablet 1,000 mg PO DAILY 1 month #30 tabs 06/26/25 ferrous sulfate 325 mg (65 mg iron) tablet,delayed release 325 mg PO QODAY #30 tabs 06/26/25 pantoprazole 40 mg tablet,delayed release (Protonix) 40 mg PO BID #60 tabs 06/26/25 Physical Exam Narrative Seen and examined. Patient is feeling better. Tolerating soft diet. Feels mild discomfort along throat probably after EGD. No acute chest pain or shortness of breath. Had EGD yesterday. Physical exam General: Alert, Oriented x3, Cooperative. BMI 23.4 kg/m? HEENT: Atraumatic, PERRLA, EOMI, Normocephalic. Oral: No Gingival or Mucosal Lesions/ Ulcerations Neck: Supple, No JVD, Negative Carotid Bruits Chest wall/Lungs: Air entry diminished in bilateral lung bases. No crepitation/rhonchi Cardiovascular: Regular rate and rhythm, Normal S1,S2, systolic murmur Abdomen: Bowel Sounds Present, Soft, Non Tender, Non-Distended : No dysuria. No renal angle tenderness. No suprapubic tenderness. Extremities: No edema, Capillary Refill Less than 3 Seconds Skin: No rashes, No breakdown Musculoskeletal: No Tenderness to Palpation of Joints or Extremities Neurological: Cranial nerves II-XII grossly intact, DTR 2+/4. No acute focal neurological deficit. Psych/Mental Status: Normal Affect, Appropriate. Weight / BMI Weight Weight: 149 lb 4.047 oz Body Mass Index (BMI) 23.4 ABG / Lab / Microbiology Data 06/26/25 05:40 06/26/25 05:40 Laboratory: Laboratory Results - last 24 hr 06/25/25 20:15: POC Glucose 132 H 06/25/25 23:08: POC Glucose 110 H 06/26/25 05:40: WBC 12.9 H, RBC 2.98 L, Hgb 8.9 L, Hct 27.6 L, MCV 92.6, MCH 29.9, MCHC 32.2, RDW Std Deviation 51.0 H, RDW Coeff of Palak 15.0 H, Plt Count 282, MPV 10.2, Immature Gran % (Auto) 0.500, Neut % (Auto) 73.4 H, Lymph % (Auto) 16.6 L, [place] % (Auto) 6.2, Eos % (Auto) 2.9, Baso % (Auto) 0.4, Absolute Neuts (auto) 9.5 H, Absolute Lymphs (auto) 2.15, Nucleated RBC % 0, Sodium 140, Potassium 3.7, Chloride 108, Carbon Dioxide 20.9 L, Anion Gap 11, BUN 11, C reatinine 0.54 L, Estim Creat Clear Calc 60.90, Est GFR (MDRD) Non-Af 97, BUN/Creatinine Ratio 19.7, Glucose 111 H, Calcium 8.0 06/26/25 06:31: POC Glucose 112 H 06/26/25 11:07: POC Glucose 144 H D/C Instructions Weight Bearing Status: Weight bearing as tolerated Call your doctor if you observe: Fever of 101 or Higher, Coldness, Increased Pain, Numbness or Tingling, Change in Color, Inability to urinate, Inability to have a bowel movement, Shortness of breath, Dizziness, Fainting spells, Swelling in the ankles, Chest pain, Prolonged hiccupping, Increased palpitations (irregular heartbeat) and Calf discomfort DC O2, CPAP, BIPAP Needs Home O2 Discharge instructions: No When: IN 2 WEEKS Meaningful Use Info Meaningful Use Meaningful Use Diagnoses (Choose all that apply): None applicable Discharge Plan Admission Admit Date/Time: 06/24/25 17:17 Primary Reason for Your Visit: Acute upper GI bleed Attending Provider: Filiberto Edge Primary Care Provider: Misael Molina Consulting Providers: Filiberto Edge; Maurilio Mcmanus; Noni Baker; Tamela Bailey; Anju Mitchell; Kirsten Pearson Discharge Orders/Prescriptions Prescriptions: New pantoprazole [Protonix] 40 mg tablet,delayed release (DR/EC) 40 mg PO BID Qty: 60 1RF ascorbic acid (vitamin C) 1,000 mg tablet 1,000 mg PO DAILY 30 Days Qty: 30 2RF ferrous sulfate 325 mg (65 mg iron) tablet,delayed release (DR/EC) 325 mg PO QODAY Qty: 30 2RF Continued cholecalciferol (vitamin D3) 50 mcg (2,000 unit) tablet 50 mcg PO DAILY midodrine 5 mg tablet 10 mg PO BID alendronate 70 mg tablet 70 mg PO MO Patient Comments: TAKE 1 TABLET BY MOUTH ONCE A WEEK. TAKE BEFORE FOOD OR DRINK AND SIT UPRIGHT FOR 30 MINUTES AFTER TAKING Jardiance 10 mg tablet 10 mg PO DAILY potassium chloride [Klor-Con M20] 20 mEq tablet,ER particles/crystals 20 meq PO DAILY sertraline 25 mg tablet 25 mg PO DAILY atorvastatin 40 mg tablet 20 mg PO QHS Qty: 30 6RF Held metformin 1,000 mg tablet 1,000 mg PO BID Hold Instructions: hold for 2 more days Eliquis 5 mg tablet 5 mg PO BID Qty: 180 4RF Hold Instructions: Hold for 5 more days and probably start 2.5 mg twice daily after discussion with PCP Discontinued polysaccharide iron complex [Ferrex 150] 150 mg iron Capsule 150 mg PO DAILY 30 Days Qty: 30 0RF Referrals / Follow Up: Misael Molina MD [Primary Care Provider] - Within 2 Weeks Maurilio Mcmanus DO [Med Staff - Active Staff] - Within 1 Month Disposition Disposition (needs filled in before D/C Order can be placed): Home, Self Care Charges/Coding Visit Charges Inpatient E&M: 82664 Disch Hosp >30min
[2025-06-26 09:43] VITALS: BP 109/88; PULSE 78; RESP 14; TEMP 36.6; O2SAT 98
--- NOTE | 2025-06-26 09:55 | CASEMGMT ---
LACY PHILIP Assessment Face to Face with patient for initial transition planning/care coordination assessment. LACY PHILIP introduced self and role at [facility], pt voices understanding. Pt is A&Ox4 and is resting comfortably in bed and is calm. Care providers, pharmacy, and demographics verified. Admitting dx: Acute GI Bleed LACE Strata: 3 PCP: Misael Molina Specialists: Harrison (Pulm), Friend (GI), Hollie ARSHAD (Uro) Preferred Pharmacy: [facility] Insurance: [facility] A/B, MMO Prescription Benefit: Yes LNOK: Noni (LADI and POA), Tamela (LADI) Living Arrangements: Pt lives with her daughter (Noni) and (on home hospice) in a 2 story home with 2 steps to enter ADLs/IADLs: Indep Transportation: Self, daughter DME: Home oxygen through [employer]. Pt is currently 98% on RA. However, [employer] reports pts current orders state 2L cont via NC. Pt states that she only wears at night. Pt states that she has a concentrator, portable tanks, and pox. Pt also states that she has access to a cane, raised TS, and extended tub bench. HHC/SNF: Hx with [facility] HH and [facility] TCU Pt?s goal: Home Plan: Home, no additional need identified. Pt denies the need for HH and OP Tx. Pt states that she feels safe returning home with her family today and denies further questions or concerns. Pt's RN charisma. Nimco Crowder RN, CM
--- NOTE | 2025-06-26 10:56 | PHA.DC.MC.R ---
Pharmacy [facility] Counseling Pharmacy Service has performed discharge medication reconciliation and counseling for this patient. The patient's discharge medication list was reviewed for discrepancies and discrepancies were resolved. The patient was counseled on the following discharge medications and changes in medications for homegoing were reviewed. The Reason for Use, instructions for use, and potential side effects were reviewed for all new medications. The patient's questions regarding all of their medications were answered. 1. Pantoprazole 40 mg PO BID 2. Ascorbic acid 1000 mg PO daily 3. Ferrous sulfate 325 mg PO every other day The patient was able to verbally demonstrate an understanding of their discharge medications. Medications at Discharge Home Medications alendronate 70 mg tablet 70 mg PO MO Osteoporosis 05/18/22 cholecalciferol (vitamin D3) 50 mcg (2,000 unit) tablet 50 mcg PO DAILY supplement 09/23/22 metformin 1,000 mg tablet 1,000 mg PO BID diabetes 07/06/24 Held on 06/26/25. Instructions: hold for 2 more days midodrine 5 mg tablet 10 mg PO BID blood pressure 07/06/24 empagliflozin 10 mg tablet (Jardiance) 10 mg PO DAILY diabetes 11/22/24 potassium chloride 20 mEq tablet,extended release(part/cryst) (Klor-Con M) 20 meq PO DAILY supplement 11/22/24 sertraline 25 mg tablet 25 mg PO DAILY depression 11/22/24 apixaban 5 mg tablet (Eliquis) 5 mg PO BID Faxed to [employer] #180 tabs 01/23/25 Held on 06/26/25. Instructions: Hold for 5 more days and probably start 2.5 mg twice daily after discussion with PCP atorvastatin 40 mg tablet 20 mg (1/2 x 40 mg) PO QHS Cholestrol #30 tabs 02/21/25 ascorbic acid (vitamin C) 1,000 mg tablet 1,000 mg PO DAILY 1 month #30 tabs 06/26/25 ferrous sulfate 325 mg (65 mg iron) tablet,delayed release 325 mg PO QODAY #30 tabs 06/26/25 pantoprazole 40 mg tablet,delayed release (Protonix) 40 mg PO BID #60 tabs 06/26/25
--- NOTE | 2025-06-26 17:14 | PN_ITS ---
Progress Note Patient had acute GI bleeding over the weekend. It was secondary to Bullock tear which was treated with epinephrine, clips and cautery. Her hemoglobin seems to be stable. Physical Exam Const alert, oriented x3, no apparent distress and healthy appearing General Appearance: cooperative GI normal to inspection, nondistended, normoactive bowel sounds, soft to palpation, non-tender and non-distended Percussion: normal to percussion Rectal Exam: deferred Assessment & Plan Assessment/Plan (1) GI bleed: PLAN: Plan 75-year-old female was admitted for hematemesis and dark tarry stool/melena. Her other day before admission she felt very weak and then on day of admission 4 episodes of hematemesis, coffee-ground color she also had black tarry stool. She has a known history of eosinophilic esophagitis, duodenal ulcer and previous GI bleed and chronic anemia on iron supplement. Patient has A-fib on Eliquis EGD: Impressions : - Ena-Bullock tear. Injected. Clips were placed. Treated with argon plasma coagulation (APC). - Red blood in the entire stomach. - Hematin (altered blood/vpcczm-sdepow-qyje material) in the stomach. - No gross lesions in the entire examined duodenum. - No specimens collected. Currently on clear liquid advance to full liquid diet. Hemoglobin admitting 10.4, similar to 10.6 today. Baseline varies between 11 to 12 g%. - Continue to hold home Eliquis until patient is seen outpatient. Visit Charges Inpatient E&M: 05269 [facility] Hosp L3
== END 2025-06-26 13:40 | disposition home or self-care (01) | DRG 369 ==
LOC: ED 16:51 → EN 17:02 → ACINP 17:05 → EN 18:35 → ICU 18:35
PROVIDERS: Internal Medicine Gastroenterology; Admitting Provider Internal Medicine; Emergency Provider Surgery; PCP Family Medicine; Visit Provider Internal Medicine
PROC: 0DJ08ZZ Inspection of Upper Intestinal Tract, Via Natural or Artificial Opening Endoscopic (ICD-10-PCS; CPT 43235; principal; 2025-06-24 17:15)
DX: K22.6 Gastro-esophageal laceration-hemorrhage syndrome (principal); E87.20 Acidosis, unspecified; E11.9 Type 2 diabetes mellitus without complications; D64.9 Anemia, unspecified; I10 Essential (primary) hypertension; F32.A Depression, unspecified; I48.0 Paroxysmal atrial fibrillation; E78.00 Pure hypercholesterolemia, unspecified; K44.9 Diaphragmatic hernia without obstruction or gangrene; I25.10 Atherosclerotic heart disease of native coronary artery without angina pectoris; K57.30 Diverticulosis of large intestine without perforation or abscess without bleeding; F41.9 Anxiety disorder, unspecified; K62.3 Rectal prolapse; K29.70 Gastritis, unspecified, without bleeding; I95.9 Hypotension, unspecified; M54.50 Low back pain, unspecified; Z86.16 Personal history of COVID-19; R53.1 Weakness; Z79.84 Long term (current) use of oral hypoglycemic drugs; Z87.891 Personal history of nicotine dependence; Z79.01 Long term (current) use of anticoagulants
CPT/HCPCS: 36415; 80048; 80076; 82962; 83605; 83690; 83880; 84484; 85014; 85018; 85025; 85610; 85730; 86850; 86900; 86901; 86920; 93005; 97161; 97166; 97802; 99285; C1889; P9016; A4216; J0696; J2405

== ENCOUNTER → 2025-07-03 | Outpatient (CLI) | payer MEDICARE, OTHER, SELFPAY ==
[2025-07-03 17:40] LABS: Hematocrit 34.3 % (37-47); Hemoglobin 10.8 g/dL (12.0-15.0); Immature Granulocytes Count 0.070 X10^3/uL (0.0-0.0); Mean Corp Hgb Conc 31.5 g/dL (32-36); Mean Corpuscular Volume 95.8 fL (81-99); Mean Platelet Vol. 9.7 fl (6.2-12.0); NRBC Flagged by Analyzer 0 % (0-5); Platelet Count 638 K/mm3 (150-450); RBC Distribution Width CV 15.1 % (11.6-14.6); RBC Distribution Width SD 52.6 fl (35.1-43.9); Red Blood Count 3.58 M/mm3 (4.2-5.4); White Blood Count 12.1 K/mm3 (4.4-11.0)
== END | disposition home or self-care (01) ==
LOC: MFPLAB 15:50
PROVIDERS: PCP Family Medicine; Visit Provider Family Medicine
DX: K92.2 Gastrointestinal hemorrhage, unspecified (principal)
CPT/HCPCS: 36415; 85025

== ENCOUNTER → 2025-07-26 | Outpatient (CLI) | payer MEDICARE, OTHER, SELFPAY ==
[2025-07-26 10:41] LABS: Hematocrit 37.5 % (37-47); Hemoglobin 11.9 g/dL (12.0-15.0); Immature Granulocytes Count 0.020 X10^3/uL (0.0-0.0); Mean Corp Hgb Conc 31.7 g/dL (32-36); Mean Corpuscular Volume 92.1 fL (81-99); Mean Platelet Vol. 9.9 fl (6.2-12.0); NRBC Flagged by Analyzer 0 % (0-5); Platelet Count 438 K/mm3 (150-450); RBC Distribution Width CV 14.5 % (11.6-14.6); RBC Distribution Width SD 49.2 fl (35.1-43.9); Red Blood Count 4.07 M/mm3 (4.2-5.4); White Blood Count 8.8 K/mm3 (4.4-11.0)
[2025-07-26 12:16] LABS: Anion Gap 15 (5-15); BUN 13 mg/dL (4-19); BUN/Creat Ratio 18.2 RATIO (10-20); Calcium,Total 9.7 mg/dL (7.6-11.0); Carbon Dioxide 20.8 mmol/L (21.0-32.0); Chloride 101 mmol/L (98-108); Cholesterol 152 mg/dL (<=200); Glucose 108 mg/dL (70-99); Low Density Lipoprotein Calc. 63 mg/dL; Potassium 4.0 mmol/L (3.3-5.1); Triglycerides 203 mg/dL; Very Low Density Lipoprotein 41 mg/dL (5-40); cholesterol:hdl ratio screen 3.13
== END | disposition home or self-care (01) ==
LOC: MTLAB 08:10
PROVIDERS: PCP Family Medicine; Referring Provider Student in an Organized Health Care Education/Training Program; Visit Provider Family Medicine
DX: E11.9 Type 2 diabetes mellitus without complications (principal); D64.9 Anemia, unspecified
CPT/HCPCS: 36415; 80048; 80061; 85025

== ENCOUNTER → 2025-07-31 | Outpatient (CLI) | payer MEDICARE, OTHER, SELFPAY ==
--- NOTE | 2025-07-31 14:32 | CT_ITS ---
PROCEDURE: LOW DOSE CT LUNG SCREENING 07/31/2025 REASON FOR EXAM: NICOTINE DEP TECHNIQUE: Procedure Code: [id number] Modality: CT Procedure: LOW DOSE CT LUNG SCREENING Coronal and Sagittal reconstruction series were provided. One or more dose reduction techniques were used (e.g., Automated exposure control, adjustment of the mA and/or kV according to patient size, use of iterative reconstruction technique). REFERENCE LINK: [facility] Lung-RADS RADIATION DOSE SUMMARY: CTDlvol: 2.37 mGy DLP: 84.73 mGycm COMPARISON: CT chest without contrast, 07/15/2024 and 12/14/2023. FINDINGS: PULMONARY NODULES: (Only nodules >3mm are reported) Lower neck:There is a 14 x 7 mm nodule in the thyroid isthmus. There is no supraclavicular lymphadenopathy. Mediastinum:There are multiple reactive mediastinal lymph nodes, the largest, a right paratracheal node measuring 10 x 8 mm. Heart and thoracic aorta:The heart size is normal. There is no pericardial effusion. The coronary arteries are heavily calcified. There is moderate calcific vascular disease of the thoracic aorta. Esophagus:There is a 1.5 cm in length 3 mm in diameter, metallic foreign body at the GE junction. Upper Abdomen:The visualized abdominal aorta is heavily calcified. There is a large diverticulum of the 2nd portion of the duodenum, measuring 6.8 cm in diameter. Chest wall:The visualized soft tissues of the chest wall appear unremarkable. There is no axillary lymphadenopathy. 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 Lungs, airways and pleura: There is pleural-parenchymal scarring in the lung apices. There is severe upper lobe predominant centrilobular emphysema. There are numerous soft tissue density nodules in the left lung, the largest is in the superior segment of the lower lobe measuring 10 x 7 mm. There is no significant change in the size or number of the nodules. 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 CT/Low Dose CT Lung Screening IMPRESSION: 1. Emphysema. 2. Multiple stable pulmonary nodules throughout the left lung. 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 Calcific vascular disease. 4. Metallic foreign body in the esophagus. 5. Apparent large diverticulum of the duodenum. 6. Other findings as noted. Lung-RADS Category: 2 S: Benign behavior. Emphysema. Calcific vascular diseas e. Recommendation: Follow up low-dose chest CT in 12 months. Reading Location: [place] [id number]
== END | disposition home or self-care (01) ==
LOC: CT 14:29
PROVIDERS: PCP Family Medicine; Referring Provider Internal Medicine Pulmonary Disease; Visit Provider Internal Medicine Pulmonary Disease
DX: Z87.891 Personal history of nicotine dependence (principal)
CPT/HCPCS: 71271